=== PATIENT | female | born 1965 | race Caucasian/White ===

== ENCOUNTER 2022-03-05 01:20 | Observation (INO) | payer OTHER ==
[2022-03-05 01:40] LABS: Arterial Blood Carboxyhemoglob 2.2 % (0-1.5); Blood Gas Oxyhemoglobin 94.7 % (94-97); Blood O2 Saturation 97.8 % (92-98.5)
[2022-03-05] MEDS ORDERED: METHYLPREDNISOLONE 125 MG INJ ONE (01:41)
[2022-03-05] MEDS ORDERED: IPRATROPIUM BROM 0.5MG/2.5ML ONE (01:44)
[2022-03-05] MEDS ORDERED: ALBUTEROL 2.5 MG/3 ML NEB SOL ONE (01:44)
--- OUTSIDE RECORDS SUMMARY | 2022-03-05 01:47 | XMS REPORT | Continuity of Care Document ---
:1965 Author Organization [facility] t Address [address] [place] [address] Care Team Providers Name Role Phone THAI F [facility] Primary Care P hysician Unavailable DOLORES PATTERSON Attending Clinician Unavailable Dolores Patterson MD Attending Clinician [phone] RUSTAM LOONEY Attending Clinician Unavailable Rustam Looney MD Attending Clinician Humberto Mejia Attending Clinician Doctor Unassigned, [place] Attending Clinician Unavailable Timothy Irwin Attending Clinician SKY DAO Attending Clinician Unavailable DOLORES PATTERSON Admitting Clinician Unavailable RUSTAM LOONEY Admitting Clinician Unavailable SKY DAO Admitting Clinician Unavailable Payers Payer Name Policy Type Policy Number Effective Date Expiration Date S mellisa [employer] [id number] 2021 NON-CONTRACT 00:00:00 GENERIC Problems Condition Condition Condition Status Onset Resolution Last Treating Co mments Source Name Details Category Date Date Treatment Clinician Date Dyspnea Dyspnea Disease Active [facility] 1-03 ity of 00:00: [place] 00 [facility] Morbid Morbid Disease Active Univers obesity obesity 1-03 [place] with [place] dical of of Branch 40.0-49.9 40.0-49.9 Coronary Coronary Disease Active Unive rs artery artery 1-03 ity of disease disease 00:00: [place] involving involving 00 Medi renu wiyot wiyot 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 Atypical Atypical Disease Active Unive rs chest pain chest pain 1-03 it y of 00:00: [place] 00 [facility] Essential Essential Disease Active Uni vers hypertensi hypertensi 1-03 it y of on on 00:00: [place] 00 [facility] Dyslipidem Dyslipidem Disease Active U nivers ia ia 1-03 ity of 00:00: [place] 00 [facility] Allergies, Adverse Reactions, Alerts Allergy Allergy Status Severity Reaction(s) Onset Inactive Treating Comm ents Source Name Type Date Date Clinician n Propensi Active ty to 5-24 adverse 00:00: reaction 00 to drug oxyCODON Propensi Active E ER - ty to 2-28 Oral adverse 00:00: reaction 00 to drug Oxycodon Propensi Active e ty to 2-17 adverse 00:00: reaction 00 to drug OXYCODON DRUG Active Rash Univers E INGREDI 6-10 ity of 00:00: [place] 00 [facility] Oxycodon Propensi Active Rash Univer s e ty to 6-10 ity of adverse 00:00: [place] reaction 00 Medical s Branch oxyCODON oxyCODON Active Maria L Peñaloza Social History Social Habit Start Date Stop Date Quantity Comments Source History of Smokes tobacco University of tobacco use daily [facility] Exposure to 2022-02-14 2022-02-24 Not sure [facility] SARS-CoV-2 00:00:00 04:59:00 [place] [facility] (event) [facility] Alcohol intake 2022-01-15 2022-01-15 Current drinker Unive rsity of 00:00:00 00:00:00 of alcohol [facility] (finding) [place] Social History 2019-04-24 2019-04-24 Felix urias 17:19:51 17:19:51 Tobacco use and 2019-04-03 2019-04-03 Smokeless tobacco Un iversity of exposure 00:00:00 00:00:00 non-user [facility] Sex Assigned At [birth year] Universit y of 00:00:00 00:00:00 [facility] Smoking Status Start Date Stop Date Source Smokes tobacco daily 2019-04-03 00:00:00 Univers ity of [facility] Branch Medications Ordered Filled Start Stop Current Ordering Indication Dosage Frequency Signature Comments Components Source Medication Medication Date Date Medication? Clinician (SIG) Name Name ipratropium 2021-04 Yes 3mL 3 mL, Unive rs -albuteroL 04-26 Inhalation ity of (DUONEB) 11:45: , QID, [place] 0.5 mg-3 00 First dose Medic al mg(2.5 mg on Sat Branch base)/3 mL 02/24/22 nebulizer at 0545, solution 3 Until mL Discontinu ed, Routine methylPREDN 2021-04- No 125mg 125 mg, U nivers ISolone sod 04-26 Intravenou i ty of succ 11:30: 11:30 s, ONCE, 1 [place] (SOLU-MEDRO 00 :00 dose, On Medi renu L (PF)) Sat Branch injection 02/24/22 125 mg at 0530, [place]AS[place] furosemide 2021-04 No 40mg 40 mg, IV U nivers (LASIX) 017 17 Push, ity of injection 10:45: 10:45 ONCE, 1 [place] 40 mg 00 :00 dose, On Medical [facility] Branch 01/15/22 at 0545, [place] TAKE 2021- No TABLET BY - MOUTH EVERY 00:00: 4 HOURS 00 NEEDED FOR PAIN TAKE 0 No TABLET BY - MOUTH EVERY 00:00: 4 HOURS 00 NEEDED FOR PAIN TAKE 2021-0 No TABLET BY - MOUTH EVERY 00:00: 4 HOURS 00 NEEDED FOR PAIN TAKE 2021-0 No TABLET BY 9-26 MOUTH EVERY 00:00: 4 HOURS 00 NEEDED FOR PAIN TAKE 2021-0 No TABLET BY 9-26 MOUTH EVERY 00:00: 4 HOURS 00 NEEDED FOR PAIN TAKE 2021-0 No TABLET BY 9-26 MOUTH EVERY 00:00: 4 HOURS 00 NEEDED FOR PAIN TAKE 2021-0 No TABLET BY -26 MOUTH EVERY 00:00: 4 HOURS 00 NEEDED FOR PAIN TAKE 2021-0 No TABLET BY 9-26 MOUTH EVERY 00:00: 4 HOURS 00 NEEDED FOR PAIN TAKE 2021-0 No TABLET BY 9-26 MOUTH EVERY 00:00: 4 HOURS 00 NEEDED FOR PAIN TAKE 1 2-0 No TABLET BY 9-26 MOUTH EVERY 00:00: 4 HOURS 00 NEEDED FOR PAIN TAKE 1 2022-0 No 50 TABLET BY 8-26 MOUTH EVERY 00:00: 4 HOURS 00 NEEDED FOR PAIN TAKE 1 2022-0 No 50 TABLET BY 8-26 MOUTH EVERY 00:00: 4 HOURS 00 NEEDED FOR PAIN TAKE 1 2022-0 No 50 TABLET BY 8-26 MOUTH EVERY 00:00: 4 HOURS 00 NEEDED FOR PAIN TAKE 1 2-0 No 50 TABLET BY 8-26 MOUTH EVERY 00:00: 4 HOURS 00 NEEDED FOR PAIN TAKE 1 2-0 No 50 TABLET BY 8-26 MOUTH EVERY 00:00: 4 HOURS 00 NEEDED FOR PAIN TAKE 1 2-0 No 50 TABLET BY 8-26 MOUTH EVERY 00:00: 4 HOURS 00 NEEDED FOR PAIN TAKE 1 2-0 No 50 TABLET BY 8-26 MOUTH EVERY 00:00: 4 HOURS 00 NEEDED FOR PAIN TAKE 1 2-0 No 50 TABLET BY 8-26 MOUTH EVERY 00:00: 4 HOURS 00 NEEDED FOR PAIN TAKE 1 2-0 No 50 TABLET BY 8-26 MOUTH EVERY 00:00: 4 HOURS 00 NEEDED FOR PAIN TAKE 1 2-0 No 50 TABLET BY 8-26 MOUTH EVERY 00:00: 4 HOURS 00 NEEDED FOR PAIN promethazin 2022-0 No 1mg e 25 mg 8- tablet 00:00: 00 TAKE 1 2022-0 No 75 TABLET 10-30 DAILY. 00:00: 00 TAKE 1-2 2022-0 No 20 TABLETS A 10-30 DAY 00:00: NEEDED 00 promethazin 2022-0 No 1mg e 25 mg 8- tablet 00:00: 00 TAKE 1 2022-0 No 75 TABLET - DAILY. 00:00: 00 TAKE 1-2 2022-0 No 20 TABLETS A 10-30 DAY 00:00: NEEDED 00 promethazin 2022-0 No 1mg e 25 mg - tablet 00:00: 00 TAKE 1 2022-0 No 75 TABLET - DAILY. 00:00: 00 TAKE 1-2 2022-0 No 20 TABLETS A 10-30 DAY 00:00: NEEDED 00 promethazin 2022-0 No 1mg e 25 mg 8- tablet 00:00: 00 TAKE 1 2022-0 No 75 TABLET 8- DAILY. 00:00: 00 TAKE 1-2 2022-0 No 20 TABLETS A 10-30 DAY 00:00: NEEDED 00 promethazin 2022-0 No 1mg e 25 mg 8- tablet 00:00: 00 TAKE 1 2022-0 No 75 TABLET 8- DAILY. 00:00: 00 TAKE 1-2 2022-0 No 20 TABLETS A 10-30 DAY 00:00: NEEDED 00 promethazin 2022-0 No 1mg e 25 mg 8- tablet 00:00: 00 TAKE 1 2022-0 No 75 TABLET 8 DAILY. 00:00: 00 TAKE 1-2 2022-0 No 20 TABLETS A 10-30 DAY 00:00: NEEDED 00 promethazin 2022-0 No 1mg e 25 mg 8- tablet 00:00: 00 TAKE 1 2022-0 No 75 TABLET 10-30 DAILY. 00:00: 00 TAKE 1-2 2022-0 No 20 TABLETS A 10-30 DAY 00:00: NEEDED 00 promethazin 2022-0 No 1mg e 25 mg 8- tablet 00:00: 00 TAKE 1 2022-0 No 75 TABLET 10-30 DAILY. 00:00: 00 TAKE 1-2 2022-0 No 20 TABLETS A 10-30 DAY 00:00: NEEDED 00 promethazin 2022-0 No 1mg e 25 mg 8 tablet 00:00: 00 TAKE 1 2022-0 No 75 TABLET 10-30 DAILY. 00:00: 00 TAKE 1-2 2022-0 No 20 TABLETS A 10-30 DAY 00:00: NEEDED 00 promethazin 2022-0 No 1mg e 25 mg 8- tablet 00:00: 00 TAKE 1 2022-0 No 75 TABLET 10-30 DAILY. 00:00: 00 TAKE 1-2 2022-0 No 20 TABLETS A 10-30 DAY 00:00: NEEDED 00 citalopram 2022-0 No 1mg 10 mg 7-08 tablet 00:00: 00 Dose 2022-0 No Unknown 7-08 00:00: 00 Dose 2022-0 No Unknown 7-08 00:00: 00 Dose 2022-0 No Unknown 7-08 00:00: 00 Dose 2022-0 No Unknown 7-08 00:00: 00 Dose 2022-0 No Unknown 7-08 00:00: 00 Dose 2022-0 No Unknown 7-08 00:00: 00 Dose 2022-0 No Unknown 7-08 00:00: 00 Dose 2022-0 No Unknown 7-08 00:00: 00 Dose 2022-0 No Unknown 7- 00:00: 00 Dose 2022-0 No Unknown 7- 00:00: 00 Dose 2022-0 No Unknown 7-08 00:00: 00 Dose 2022-0 No Unknown 7-08 00:00: 00 Dose 2022-0 No Unknown 7-08 00:00: 00 citalopram 2022-0 No 1mg 10 mg 7-08 tablet 00:00: 00 Dose 2022-0 No Unknown 7-08 00:00: 00 citalopram 2022-0 No 1mg 10 mg 7-08 tablet 00:00: 00 Dose 2022-0 No Unknown 7-08 00:00: 00 citalopram 2022-0 No 1mg 10 mg 7-08 tablet 00:00: 00 Dose 2022-0 No Unknown 7-08 00:00: 00 TAKE 1-2 2022-0 No 20 TABLETS A 7- DAY 00:00: NEEDED 00 TAKE 1-2 2022-0 No 20 TABLETS A 10-03 DAY 00:00: NEEDED 00 TAKE 1-2 2022-0 No 20 TABLETS A 7 DAY 00:00: NEEDED 00 TAKE 1-2 2022-0 No 20 TABLETS A 7 DAY 00:00: NEEDED 00 TAKE 1-2 2022-0 No 20 TABLETS A 7 DAY 00:00: NEEDED 00 TAKE 1-2 2022-0 No 20 TABLETS A 7 DAY 00:00: NEEDED 00 TAKE 1-2 2022-0 No 20 TABLETS A 10-03 DAY 00:00: NEEDED 00 TAKE 1-2 2022-0 No 20 TABLETS A 7 DAY 00:00: NEEDED 00 TAKE 1-2 2022-0 No 20 TABLETS A 7 DAY 00:00: NEEDED 00 TAKE 1-2 2022-0 No 20 TABLETS A 7 DAY 00:00: NEEDED 00 TAKE 1-2 2022-0 No 20 TABLETS A 7-05 DAY 00:00: NEEDED 00 hydrochloro 2022-0 No 1mg thiazide 6-14 12.5 mg 00:00: tablet 00 atorvastati 2022-0 No 1mg n 10 mg 6-14 tablet 00:00: 00 nitroglycer 2022-0 No 1mg in 0.4 mg 6-14 sublingual 00:00: tablet 00 hydrochloro 2022-0 No 1mg thiazide 6-14 12.5 mg 00:00: tablet 00 atorvastati 2022-0 No 1mg n 10 mg 6-14 tablet 00:00: 00 nitroglycer 2022-0 No 1mg in 0.4 mg 6-14 sublingual 00:00: tablet 00 hydrochloro 2022-0 No 1mg thiazide 6-14 12.5 mg 00:00: tablet 00 atorvastati 2022-0 No 1mg n 10 mg 6-14 tablet 00:00: 00 nitroglycer 2022-0 No 1mg in 0.4 mg 6-14 sublingual 00:00: tablet 00 hydrochloro 2022-0 No 1mg thiazide 6-14 12.5 mg 00:00: tablet 00 atorvastati 2022-0 No 1mg n 10 mg 6-14 tablet 00:00: 00 nitroglycer 2022-0 No 1mg in 0.4 mg 6-14 sublingual 00:00: tablet 00 hydrochloro 2022-0 No 1mg thiazide 6-14 12.5 mg 00:00: tablet 00 atorvastati 2022-0 No 1mg n 10 mg 6-14 tablet 00:00: 00 nitroglycer 2022-0 No 1mg in 0.4 mg 6-14 sublingual 00:00: tablet 00 hydrochloro 2022-0 No 1mg thiazide 6-14 12.5 mg 00:00: tablet 00 atorvastati 2022-0 No 1mg n 10 mg 6-14 tablet 00:00: 00 nitroglycer 2022-0 No 1mg in 0.4 mg 6-14 sublingual 00:00: tablet 00 hydrochloro 2022-0 No 1mg thiazide 6-14 12.5 mg 00:00: tablet 00 atorvastati 2022-0 No 1mg n 10 mg 6-14 tablet 00:00: 00 nitroglycer 2022-0 No 1mg in 0.4 mg 6-14 sublingual 00:00: tablet 00 hydrochloro 2022-0 No 1mg thiazide 6-14 12.5 mg 00:00: tablet 00 atorvastati 2022-0 No 1mg n 10 mg 6-14 tablet 00:00: 00 nitroglycer 2022-0 No 1mg in 0.4 mg 6-14 sublingual 00:00: tablet 00 hydrochloro 2022-0 No 1mg thiazide 6-14 12.5 mg 00:00: tablet 00 atorvastati 2022-0 No 1mg n 10 mg 6-14 tablet 00:00: 00 nitroglycer 2022-0 No 1mg in 0.4 mg 6-14 sublingual 00:00: tablet 00 hydrochloro 2022-0 No 1mg thiazide 6-14 12.5 mg 00:00: tablet 00 atorvastati 2022-0 No 1mg n 10 mg 6-14 tablet 00:00: 00 nitroglycer 2022-0 No 1mg in 0.4 mg 6-14 sublingual 00:00: tablet 00 hydrochloro 2022-0 No 1mg thiazide 6-14 12.5 mg 00:00: tablet 00 atorvastati 2022-0 No 1mg n 10 mg 6-14 tablet 00:00: 00 nitroglycer 2022-0 No 1mg in 0.4 mg 6-14 sublingual 00:00: tablet 00 amoxicillin 2022-0 No 1mg 875 6-11 mg-potassiu 00:00: m 00 clavulanate 125 mg tablet amoxicillin 2022-0 No 1mg 875 6-11 mg-potassiu 00:00: m 00 clavulanate 125 mg tablet amoxicillin 2022-0 No 1mg 875 6-11 mg-potassiu 00:00: m 00 clavulanate 125 mg tablet amoxicillin 2022-0 No 1mg 875 6-11 mg-potassiu 00:00: m 00 clavulanate 125 mg tablet amoxicillin 2022-0 No 1mg 875 6-11 mg-potassiu 00:00: m 00 clavulanate 125 mg tablet amoxicillin 2022-0 No 1mg 875 6-11 mg-potassiu 00:00: m 00 clavulanate 125 mg tablet amoxicillin 2022-0 No 1mg 875 6-11 mg-potassiu 00:00: m 00 clavulanate 125 mg tablet amoxicillin 2022-0 No 1mg 875 6-11 mg-potassiu 00:00: m 00 clavulanate 125 mg tablet amoxicillin 2022-0 No 1mg 875 6-11 mg-potassiu 00:00: m 00 clavulanate 125 mg tablet amoxicillin 2022-0 No 1mg 875 6-11 mg-potassiu 00:00: m 00 clavulanate 125 mg tablet amoxicillin 2022-0 No 1mg 875 6-11 mg-potassiu 00:00: m 00 clavulanate 125 mg tablet neomycin-po 2022-0 No 4mg/mL- lymyxin-hyd 6-02 unit/mL rocort 3.5 00:00: -% mg-10,000 00 unit/mL-1 % ear drops,susp neomycin-po 2022-0 No 4mg/mL- lymyxin-hyd 6-02 unit/mL rocort 3.5 00:00: -% mg-10,000 00 unit/mL-1 % ear drops,susp neomycin-po 2022-0 No 4mg/mL- lymyxin-hyd 6-02 unit/mL rocort 3.5 00:00: -% mg-10,000 00 unit/mL-1 % ear drops,susp neomycin-po 2022-0 No 4mg/mL- lymyxin-hyd 6-02 unit/mL rocort 3.5 00:00: -% mg-10,000 00 unit/mL-1 % ear drops,susp neomycin-po 2022-0 No 4mg/mL- lymyxin-hyd 6-02 unit/mL rocort 3.5 00:00: -% mg-10,000 00 unit/mL-1 % ear drops,susp neomycin-po 2022-0 No 4mg/mL- lymyxin-hyd 6-02 unit/mL rocort 3.5 00:00: -% mg-10,000 00 unit/mL-1 % ear drops,susp neomycin-po 2022-0 No 4mg/mL- lymyxin-hyd 6-02 unit/mL rocort 3.5 00:00: -% mg-10,000 00 unit/mL-1 % ear drops,susp neomycin-po 2-0 No 4mg/mL- lymyxin-hyd 6-02 unit/mL rocort 3.5 00:00: -% mg-10,000 00 unit/mL-1 % ear drops,susp neomycin-po 2-0 No 4mg/mL- lymyxin-hyd 6-02 unit/mL rocort 3.5 00:00: -% mg-10,000 00 unit/mL-1 % ear drops,susp neomycin-po 2-0 No 4mg/mL- lymyxin-hyd 6-02 unit/mL rocort 3.5 00:00: -% mg-10,000 00 unit/mL-1 % ear drops,susp neomycin-po 2-0 No 4mg/mL- lymyxin-hyd 6-02 unit/mL rocort 3.5 00:00: -% mg-10,000 00 unit/mL-1 % ear drops,susp citalopram 2-0 No 1mg 10 mg 5-25 tablet 00:00: 00 citalopram 2022-0 No 1mg 10 mg 5-25 tablet 00:00: 00 citalopram 2022-0 No 1mg 10 mg 5-25 tablet 00:00: 00 citalopram 2022-0 No 1mg 10 mg 5-25 tablet 00:00: 00 citalopram 2022-0 No 1mg 10 mg 5-25 tablet 00:00: 00 citalopram 2022-0 No 1mg 10 mg 5-25 tablet 00:00: 00 citalopram 2022-0 No 1mg 10 mg 5-25 tablet 00:00: 00 citalopram 2022-0 No 1mg 10 mg 5-25 tablet 00:00: 00 citalopram 2022-0 No 1mg 10 mg 5-25 tablet 00:00: 00 citalopram 2022-0 No 1mg 10 mg 5-25 tablet 00:00: 00 citalopram 2022-0 No 1mg 10 mg 5-25 tablet 00:00: 00 Dose 2022-0 No Unknown 5-12 00:00: 00 Dose 2022-0 No Unknown 5-12 00:00: 00 Dose 2022-0 No Unknown 5-12 00:00: 00 Dose 2022-0 No Unknown 5-12 00:00: 00 Dose 2022-0 No Unknown 5-12 00:00: 00 Dose 2022-0 No Unknown 5-12 00:00: 00 Dose 2022-0 No Unknown 5-12 00:00: 00 Dose 2022-0 No Unknown 5-12 00:00: 00 Dose 2022-0 No Unknown 5-12 00:00: 00 Dose 2022-0 No Unknown 5-12 00:00: 00 Dose 2022-0 No Unknown 5-12 00:00: 00 Dose 2-0 No Unknown 5-12 00:00: 00 Dose 2022-0 No Unknown 5-12 00:00: 00 Dose 2-0 No Unknown 5-12 00:00: 00 Dose 2-0 No Unknown 5-12 00:00: 00 Dose 2-0 No Unknown 5-12 00:00: 00 Dose 2-0 No Unknown 5-12 00:00: 00 Dose 2-0 No Unknown 5-12 00:00: 00 Dose 2-0 No Unknown 5-12 00:00: 00 Dose 2-0 No Unknown 5-12 00:00: 00 Dose 2-0 No Unknown 5-12 00:00: 00 Dose 2-0 No Unknown 5-12 00:00: 00 prednisone 2-0 No 1mg 10 mg 5-11 tablet 00:00: 00 amoxicillin 2-0 No 1mg 875 5-11 mg-potassiu 00:00: m 00 clavulanate 125 mg tablet Dose 2-0 No Unknown 5-11 00:00: 00 Dose 2022-0 No Unknown 5-11 00:00: 00 Dose 2-0 No Unknown 5-11 00:00: 00 Dose 2022-0 No Unknown 5-11 00:00: 00 Dose 2022-0 No Unknown 5-11 00:00: 00 Dose 2-0 No Unknown 5-11 00:00: 00 Dose 2022-0 No Unknown 5-11 00:00: 00 Dose 2022-0 No Unknown 5-11 00:00: 00 Dose 2022-0 No Unknown 5-11 00:00: 00 prednisone 2022-0 No 1mg 10 mg 5-11 tablet 00:00: 00 amoxicillin 2022-0 No 1mg 875 5-11 mg-potassiu 00:00: m 00 clavulanate 125 mg tablet Dose 2022-0 No Unknown 5-11 00:00: 00 Dose 2022-0 No Unknown 5-11 00:00: 00 Dose 2022-0 No Unknown 5-11 00:00: 00 Dose 2022-0 No Unknown 5-11 00:00: 00 Dose 2022-0 No Unknown 5-11 00:00: 00 Dose 2022-0 No Unknown 5-11 00:00: 00 Dose 2022-0 No Unknown 5-11 00:00: 00 Dose 2022-0 No Unknown 5-11 00:00: 00 Dose 2022-0 No Unknown 5-11 00:00: 00 prednisone 2022-0 No 1mg 10 mg 5-11 tablet 00:00: 00 amoxicillin 2022-0 No 1mg 875 5-11 mg-potassiu 00:00: m 00 clavulanate 125 mg tablet Dose 2-0 No Unknown 5-11 00:00: 00 Dose 2022-0 No Unknown 5-11 00:00: 00 Dose 2022-0 No Unknown 5-11 00:00: 00 Dose 2022-0 No Unknown 5-11 00:00: 00 Dose 2022-0 No Unknown 5-11 00:00: 00 Dose 2022-0 No Unknown 5-11 00:00: 00 Dose 2022-0 No Unknown 5-11 00:00: 00 Dose 2022-0 No Unknown 5-11 00:00: 00 Dose 2022-0 No Unknown 5-11 00:00: 00 prednisone 2022-0 No 1mg 10 mg 5-11 tablet 00:00: 00 amoxicillin 2022-0 No 1mg 875 5-11 mg-potassiu 00:00: m 00 clavulanate 125 mg tablet Dose 2-0 No Unknown 5-11 00:00: 00 Dose 2022-0 No Unknown 5-11 00:00: 00 Dose 2022-0 No Unknown 5-11 00:00: 00 Dose 2022-0 No Unknown 5-11 00:00: 00 Dose 2022-0 No Unknown 5-11 00:00: 00 Dose 2022-0 No Unknown 5-11 00:00: 00 Dose 2022-0 No Unknown 5-11 00:00: 00 Dose 2022-0 No Unknown 5-11 00:00: 00 Dose 2022-0 No Unknown 5-11 00:00: 00 prednisone 2022-0 No 1mg 10 mg 5-11 tablet 00:00: 00 amoxicillin 2022-0 No 1mg 875 5-11 mg-potassiu 00:00: m 00 clavulanate 125 mg tablet Dose 2022-0 No Unknown 5-11 00:00: 00 Dose 2022-0 No Unknown 5-11 00:00: 00 Dose 2022-0 No Unknown 5-11 00:00: 00 Dose 2022-0 No Unknown 5-11 00:00: 00 Dose 2022-0 No Unknown 5-11 00:00: 00 Dose 2022-0 No Unknown 5-11 00:00: 00 Dose 2022-0 No Unknown 5-11 00:00: 00 Dose 2022-0 No Unknown 5-11 00:00: 00 Dose 2022-0 No Unknown 5-11 00:00: 00 prednisone 2022-0 No 1mg 10 mg 5-11 tablet 00:00: 00 amoxicillin 2022-0 No 1mg 875 5-11 mg-potassiu 00:00: m 00 clavulanate 125 mg tablet Dose 2022-0 No Unknown 5-11 00:00: 00 Dose 2022-0 No Unknown 5-11 00:00: 00 Dose 2022-0 No Unknown 5-11 00:00: 00 Dose 2022-0 No Unknown 5-11 00:00: 00 Dose 2022-0 No Unknown 5-11 00:00: 00 Dose 2022-0 No Unknown 5-11 00:00: 00 Dose 2022-0 No Unknown 5-11 00:00: 00 Dose 2022-0 No Unknown 5-11 00:00: 00 Dose 2022-0 No Unknown 5-11 00:00: 00 prednisone 2022-0 No 1mg 10 mg 5-11 tablet 00:00: 00 amoxicillin 2022-0 No 1mg 875 5-11 mg-potassiu 00:00: m 00 clavulanate 125 mg tablet Dose 2022-0 No Unknown 5-11 00:00: 00 Dose 2022-0 No Unknown 5-11 00:00: 00 Dose 2022-0 No Unknown 5-11 00:00: 00 Dose 2022-0 No Unknown 5-11 00:00: 00 Dose 2022-0 No Unknown 5-11 00:00: 00 Dose 2022-0 No Unknown 5-11 00:00: 00 Dose 2022-0 No Unknown 5-11 00:00: 00 Dose 2022-0 No Unknown 5-11 00:00: 00 Dose 2022-0 No Unknown 5-11 00:00: 00 prednisone 2022-0 No 1mg 10 mg 5-11 tablet 00:00: 00 amoxicillin 2022-0 No 1mg 875 5-11 mg-potassiu 00:00: m 00 clavulanate 125 mg tablet Dose 2-0 No Unknown 5-11 00:00: 00 Dose 2022-0 No Unknown 5-11 00:00: 00 Dose 2-0 No Unknown 5-11 00:00: 00 Dose 2-0 No Unknown 5-11 00:00: 00 Dose 2022-0 No Unknown 5-11 00:00: 00 Dose 2022-0 No Unknown 5-11 00:00: 00 Dose 2022-0 No Unknown 5-11 00:00: 00 Dose 2022-0 No Unknown 5-11 00:00: 00 Dose 2022-0 No Unknown 5-11 00:00: 00 prednisone 2022-0 No 1mg 10 mg 5-11 tablet 00:00: 00 amoxicillin 2-0 No 1mg 875 5-11 mg-potassiu 00:00: m 00 clavulanate 125 mg tablet Dose 2-0 No Unknown 5-11 00:00: 00 Dose 2022-0 No Unknown 5-11 00:00: 00 Dose 2022-0 No Unknown 5-11 00:00: 00 Dose 2022-0 No Unknown 5-11 00:00: 00 Dose 2022-0 No Unknown 5-11 00:00: 00 Dose 2022-0 No Unknown 5-11 00:00: 00 Dose 2022-0 No Unknown 5-11 00:00: 00 Dose 2022-0 No Unknown 5-11 00:00: 00 Dose 2022-0 No Unknown 5-11 00:00: 00 prednisone 2022-0 No 1mg 10 mg 5-11 tablet 00:00: 00 amoxicillin 2022-0 No 1mg 875 5-11 mg-potassiu 00:00: m 00 clavulanate 125 mg tablet Dose 2-0 No Unknown 5-11 00:00: 00 Dose 2-0 No Unknown 5-11 00:00: 00 prednisone 2-0 No 1mg 10 mg 5-11 tablet 00:00: 00 amoxicillin 2022-0 No 1mg 875 5-11 mg-potassiu 00:00: m 00 clavulanate 125 mg tablet Dose 2-0 No Unknown 5-11 00:00: 00 Dose 2022-0 No Unknown 5-11 00:00: 00 Dose 2-0 No Unknown 5-11 00:00: 00 Dose 2-0 No Unknown 5-11 00:00: 00 Dose 2-0 No Unknown 5-11 00:00: 00 Dose 2-0 No Unknown 5-11 00:00: 00 Dose 2-0 No Unknown 5-11 00:00: 00 Dose 2-0 No Unknown 5-11 00:00: 00 Dose 2-0 No Unknown 5-11 00:00: 00 Dose 2-0 No Unknown 5-11 00:00: 00 Dose 2-0 No Unknown 5-11 00:00: 00 Dose 2-0 No Unknown 5-11 00:00: 00 Dose 2-0 No Unknown 5-11 00:00: 00 Dose 2-0 No Unknown 5-11 00:00: 00 Dose 2-0 No Unknown 5-11 00:00: 00 Dose 2-0 No Unknown 5-11 00:00: 00 ProAir HFA 2-0 No 2mcg/ac 90 5-06 tuation mcg/actuati 00:00: on aerosol 00 inhaler ProAir HFA 2-0 No 2mcg/ac 90 5-06 tuation mcg/actuati 00:00: on aerosol 00 inhaler ProAir HFA 2-0 No 2mcg/ac 90 5-06 tuation mcg/actuati 00:00: on aerosol 00 inhaler ProAir HFA 2-0 No 2mcg/ac 90 5-06 tuation mcg/actuati 00:00: on aerosol 00 inhaler ProAir HFA 2-0 No 2mcg/ac 90 5-06 tuation mcg/actuati 00:00: on aerosol 00 inhaler ProAir HFA 2-0 No 2mcg/ac 90 5-06 tuation mcg/actuati 00:00: on aerosol 00 inhaler ProAir HFA 2022-0 No 2mcg/ac 90 5-06 tuation mcg/actuati 00:00: on aerosol 00 inhaler ProAir HFA 2022-0 No 2mcg/ac 90 5-06 tuation mcg/actuati 00:00: on aerosol 00 inhaler ProAir HFA 2022-0 No 2mcg/ac 90 5-06 tuation mcg/actuati 00:00: on aerosol 00 inhaler ProAir HFA 2022-0 No 2mcg/ac 90 5-06 tuation mcg/actuati 00:00: on aerosol 00 inhaler ProAir HFA 2022-0 No 2mcg/ac 90 5-06 tuation mcg/actuati 00:00: on aerosol 00 inhaler levothyroxi 2022-0 No 1mcg ne 75 mcg 4-26 tablet 00:00: 00 levothyroxi 2022-0 No 1mcg ne 75 mcg 4-26 tablet 00:00: 00 levothyroxi 2022-0 No 1mcg ne 75 mcg 4-26 tablet 00:00: 00 levothyroxi 2022-0 No 1mcg ne 75 mcg 4-26 tablet 00:00: 00 levothyroxi 2022-0 No 1mcg ne 75 mcg 4-26 tablet 00:00: 00 levothyroxi 2022-0 No 1mcg ne 75 mcg 4-26 tablet 00:00: 00 levothyroxi 2022-0 No 1mcg ne 75 mcg 4-26 tablet 00:00: 00 levothyroxi 2022-0 No 1mcg ne 75 mcg 4-26 tablet 00:00: 00 levothyroxi 2022-0 No 1mcg ne 75 mcg 4-26 tablet 00:00: 00 levothyroxi 2022-0 No 1mcg ne 75 mcg 4-26 tablet 00:00: 00 levothyroxi 2022-0 No 1mcg ne 75 mcg 4-26 tablet 00:00: 00 nitroglycer 2022-0 No 1mg in 0.4 mg 4-20 sublingual 00:00: tablet 00 levothyroxi 2022-0 No 1mcg ne 75 mcg 4-20 tablet 00:00: 00 nitroglycer 2022-0 No 1mg in 0.4 mg 4-20 sublingual 00:00: tablet 00 levothyroxi 2022-0 No 1mcg ne 75 mcg 4-20 tablet 00:00: 00 nitroglycer 2022-0 No 1mg in 0.4 mg 4-20 sublingual 00:00: tablet 00 levothyroxi 2022-0 No 1mcg ne 75 mcg 4-20 tablet 00:00: 00 nitroglycer 2022-0 No 1mg in 0.4 mg 4-20 sublingual 00:00: tablet 00 levothyroxi 2022-0 No 1mcg ne 75 mcg 4-20 tablet 00:00: 00 nitroglycer 2022-0 No 1mg in 0.4 mg 4-20 sublingual 00:00: tablet 00 levothyroxi 2022-0 No 1mcg ne 75 mcg 4-20 tablet 00:00: 00 nitroglycer 2022-0 No 1mg in 0.4 mg 4-20 sublingual 00:00: tablet 00 levothyroxi 2022-0 No 1mcg ne 75 mcg 4-20 tablet 00:00: 00 nitroglycer 2022-0 No 1mg in 0.4 mg 4-20 sublingual 00:00: tablet 00 levothyroxi 2022-0 No 1mcg ne 75 mcg 4-20 tablet 00:00: 00 nitroglycer 2022-0 No 1mg in 0.4 mg 4-20 sublingual 00:00: tablet 00 levothyroxi 2022-0 No 1mcg ne 75 mcg 4-20 tablet 00:00: 00 nitroglycer 2022-0 No 1mg in 0.4 mg 4-20 sublingual 00:00: tablet 00 levothyroxi 2022-0 No 1mcg ne 75 mcg 4-20 tablet 00:00: 00 nitroglycer 2022-0 No 1mg in 0.4 mg 4-20 sublingual 00:00: tablet 00 levothyroxi 2022-0 No 1mcg ne 75 mcg 4-20 tablet 00:00: 00 nitroglycer 2022-0 No 1mg in 0.4 mg 4-20 sublingual 00:00: tablet 00 levothyroxi 2022-0 No 1mcg ne 75 mcg 4-20 tablet 00:00: 00 Dose 2022-0 No Unknown 4-13 00:00: 00 Dose 2022-0 No Unknown 4-13 00:00: 00 Dose 2022-0 No Unknown 4-13 00:00: 00 Dose 2022-0 No Unknown 4-13 00:00: 00 Dose 2022-0 No Unknown 4-13 00:00: 00 Dose 2022-0 No Unknown 4-13 00:00: 00 Dose 2022-0 No Unknown 4-13 00:00: 00 Dose 2022-0 No Unknown 4-13 00:00: 00 Dose 2022-0 No Unknown 4-13 00:00: 00 Dose 2022-0 No Unknown 4-13 00:00: 00 Dose 2022-0 No Unknown 4-13 00:00: 00 Dose 2022-0 No Unknown 4-13 00:00: 00 Dose 2022-0 No Unknown 4-13 00:00: 00 Dose 2022-0 No Unknown 4-13 00:00: 00 Dose 2022-0 No Unknown 4-13 00:00: 00 Dose 2022-0 No Unknown 4-13 00:00: 00 Dose 2022-0 No Unknown 4-13 00:00: 00 Dose 2022-0 No Unknown 4-13 00:00: 00 Dose 2022-0 No Unknown 4-13 00:00: 00 Dose 2022-0 No Unknown 4-13 00:00: 00 Dose 2022-0 No Unknown 4-13 00:00: 00 Dose 2022-0 No Unknown 4-13 00:00: 00 Dose 2022-0 No Unknown 4-13 00:00: 00 Dose 2022-0 No Unknown 4-13 00:00: 00 Dose 2022-0 No Unknown 4-13 00:00: 00 Dose 2022-0 No Unknown 4-13 00:00: 00 Dose 2022-0 No Unknown 4-13 00:00: 00 Dose 2022-0 No Unknown 4-13 00:00: 00 Dose 2022-0 No Unknown 4-13 00:00: 00 Dose 2022-0 No Unknown 4-13 00:00: 00 Dose 2022-0 No Unknown 4-13 00:00: 00 Dose 2022-0 No Unknown 4-13 00:00: 00 Dose 2022-0 No Unknown 4-13 00:00: 00 Dose 2022-0 No Unknown 4-13 00:00: 00 Dose 2022-0 No Unknown 4-13 00:00: 00 Dose 2022-0 No Unknown 4-13 00:00: 00 Dose 2022-0 No Unknown 4-13 00:00: 00 Dose 2022-0 No Unknown 4-13 00:00: 00 Dose 2022-0 No Unknown 4-13 00:00: 00 Dose 2022-0 No Unknown 4-13 00:00: 00 Dose 2022-0 No Unknown 4-13 00:00: 00 Dose 2022-0 No Unknown 4-13 00:00: 00 Dose 2022-0 No Unknown 4-13 00:00: 00 Dose 2022-0 No Unknown 4-13 00:00: 00 Dose 2022-0 No Unknown 4-13 00:00: 00 Dose 2022-0 No Unknown 4-13 00:00: 00 Dose 2022-0 No Unknown 4-13 00:00: 00 Dose 2022-0 No Unknown 4-13 00:00: 00 Dose 2022-0 No Unknown 4-13 00:00: 00 Dose 2022-0 No Unknown 4-13 00:00: 00 Dose 2022-0 No Unknown 4-13 00:00: 00 Dose 2022-0 No Unknown 4-13 00:00: 00 Dose 2022-0 No Unknown 4-13 00:00: 00 Dose 2022-0 No Unknown 4-13 00:00: 00 Dose 2022-0 No Unknown 4-13 00:00: 00 Dose 2022-0 No Unknown 4-13 00:00: 00 Dose 2022-0 No Unknown 4-13 00:00: 00 Dose 2022-0 No Unknown 4-13 00:00: 00 Dose 2022-0 No Unknown 4-13 00:00: 00 Dose 2022-0 No Unknown 4-13 00:00: 00 Dose 2022-0 No Unknown 4-13 00:00: 00 Dose 2022-0 No Unknown 4-13 00:00: 00 Dose 2022-0 No Unknown 4-13 00:00: 00 Dose 2022-0 No Unknown 4-13 00:00: 00 Dose 2022-0 No Unknown 4-13 00:00: 00 Dose 2022-0 No Unknown 4-13 00:00: 00 Dose 2022-0 No Unknown 4-13 00:00: 00 Dose 2022-0 No Unknown 4-13 00:00: 00 Dose 2022-0 No Unknown 4-13 00:00: 00 Dose 2022-0 No Unknown 4-13 00:00: 00 Dose 2022-0 No Unknown 4-13 00:00: 00 Dose 2022-0 No Unknown 4-13 00:00: 00 Dose 2022-0 No Unknown 4-13 00:00: 00 Dose 2022-0 No Unknown 4-13 00:00: 00 Dose 2022-0 No Unknown 4-13 00:00: 00 Dose 2022-0 No Unknown 4-13 00:00: 00 Dose 2022-0 No Unknown 4-13 00:00: 00 Dose 2022-0 No Unknown 4-13 00:00: 00 Dose 2022-0 No Unknown 4-13 00:00: 00 Dose 2022-0 No Unknown 4-13 00:00: 00 Dose 2022-0 No Unknown 4-13 00:00: 00 Dose 2022-0 No Unknown 4-13 00:00: 00 Dose 2022-0 No Unknown 4-13 00:00: 00 Dose 2022-0 No Unknown 4-13 00:00: 00 Dose 2022-0 No Unknown 4-13 00:00: 00 Dose 2022-0 No Unknown 4-13 00:00: 00 Dose 2022-0 No Unknown 4-13 00:00: 00 Dose 2022-0 No Unknown 4-13 00:00: 00 Dose 2022-0 No Unknown 4-13 00:00: 00 Dose 2022-0 No Unknown 4-13 00:00: 00 Dose 2022-0 No Unknown 4-13 00:00: 00 Dose 2022-0 No Unknown 4-13 00:00: 00 Dose 2022-0 No Unknown 4-13 00:00: 00 Dose 2022-0 No Unknown 4-13 00:00: 00 Dose 2022-0 No Unknown 4-13 00:00: 00 Dose 2022-0 No Unknown 4-13 00:00: 00 Dose 2022-0 No Unknown 4-13 00:00: 00 Dose 2022-0 No Unknown 4-13 00:00: 00 Dose 2022-0 No Unknown 4-13 00:00: 00 Dose 2022-0 No Unknown 4-13 00:00: 00 Dose 2022-0 No Unknown 4-13 00:00: 00 Dose 2022-0 No Unknown 4-13 00:00: 00 Dose 2022-0 No Unknown 4-13 00:00: 00 Dose 2022-0 No Unknown 4-13 00:00: 00 Dose 2022-0 No Unknown 4-13 00:00: 00 Dose 2022-0 No Unknown 4-13 00:00: 00 Dose 2022-0 No Unknown 4-13 00:00: 00 Dose 2022-0 No Unknown 4-13 00:00: 00 Dose 2022-0 No Unknown 4-13 00:00: 00 Dose 2022-0 No Unknown 4-13 00:00: 00 lithium 2022-0 No 1mg carbonate 3-02 ER 450 mg 00:00: tablet,exte 00 nded release lithium 2022-0 No 1mg carbonate 3-02 ER 450 mg 00:00: tablet,exte 00 nded release lithium 2022-0 No 1mg carbonate 3-02 ER 450 mg 00:00: tablet,exte 00 nded release lithium 2022-0 No 1mg carbonate 3-02 ER 450 mg 00:00: tablet,exte 00 nded release lithium 2022-0 No 1mg carbonate 3-02 ER 450 mg 00:00: tablet,exte 00 nded release lithium 2022-0 No 1mg carbonate 3-02 ER 450 mg 00:00: tablet,exte 00 nded release lithium 2022-0 No 1mg carbonate 3-02 ER 450 mg 00:00: tablet,exte 00 nded release lithium 2022-0 No 1mg carbonate 3-02 ER 450 mg 00:00: tablet,exte 00 nded release lithium 2022-0 No 1mg carbonate 3-02 ER 450 mg 00:00: tablet,exte 00 nded release lithium 2022-0 No 1mg carbonate 3-02 ER 450 mg 00:00: tablet,exte 00 nded release lithium 2022-0 No 1mg carbonate 3-02 ER 450 mg 00:00: tablet,exte 00 nded release atorvastati 2022-0 No 1mg n 10 mg 2-28 tablet 00:00: 00 atorvastati 2022-0 No 1mg n 10 mg 2-28 tablet 00:00: 00 atorvastati 2022-0 No 1mg n 10 mg 2-28 tablet 00:00: 00 atorvastati 2022-0 No 1mg n 10 mg 2-28 tablet 00:00: 00 atorvastati 2022-0 No 1mg n 10 mg 2-28 tablet 00:00: 00 atorvastati 2022-0 No 1mg n 10 mg 2-28 tablet 00:00: 00 atorvastati 2022-0 No 1mg n 10 mg 2-28 tablet 00:00: 00 atorvastati 2022-0 No 1mg n 10 mg 2-28 tablet 00:00: 00 atorvastati 2022-0 No 1mg n 10 mg 2-28 tablet 00:00: 00 atorvastati 2022-0 No 1mg n 10 mg 2-28 tablet 00:00: 00 atorvastati 2022-0 No 1mg n 10 mg 2-28 tablet 00:00: 00 Dose 2022-0 No Unknown 2-17 00:00: 00 Dose 2022-0 No Unknown 2-17 00:00: 00 Dose 2022-0 No Unknown 2-17 00:00: 00 Dose 2022-0 No Unknown 2-17 00:00: 00 Dose 2022-0 No Unknown 2-17 00:00: 00 Dose 2022-0 No Unknown 2-17 00:00: 00 Dose 2022-0 No Unknown 2-17 00:00: 00 Dose 2022-0 No Unknown 2-17 00:00: 00 Dose 2022-0 No Unknown 2-17 00:00: 00 Dose 2022-0 No Unknown 2-17 00:00: 00 Dose 2022-0 No Unknown 2-17 00:00: 00 clopidogrel 2022-0 No 1mg 75 mg 1-18 tablet 00:00: 00 metoprolol 2022-0 No 1mg succinate 1-18 ER 100 mg 00:00: tablet,exte 00 nded release 24 hr Dose 2022-0 No Unknown 1-18 00:00: 00 clopidogrel 2022-0 No 1mg 75 mg 1-18 tablet 00:00: 00 metoprolol 2022-0 No 1mg succinate 1-18 ER 100 mg 00:00: tablet,exte 00 nded release 24 hr Dose 2022-0 No Unknown 1-18 00:00: 00 clopidogrel 2022-0 No 1mg 75 mg 1-18 tablet 00:00: 00 metoprolol 2022-0 No 1mg succinate 1-18 ER 100 mg 00:00: tablet,exte 00 nded release 24 hr Dose 2022-0 No Unknown 1-18 00:00: 00 clopidogrel 2022-0 No 1mg 75 mg 1-18 tablet 00:00: 00 metoprolol 2022-0 No 1mg succinate 1-18 ER 100 mg 00:00: tablet,exte 00 nded release 24 hr Dose 2022-0 No Unknown 1-18 00:00: 00 clopidogrel 2022-0 No 1mg 75 mg 1-18 tablet 00:00: 00 metoprolol 2022-0 No 1mg succinate 1-18 ER 100 mg 00:00: tablet,exte 00 nded release 24 hr Dose 2022-0 No Unknown 1-18 00:00: 00 clopidogrel 2022-0 No 1mg 75 mg 1-18 tablet 00:00: 00 metoprolol 2022-0 No 1mg succinate 1-18 ER 100 mg 00:00: tablet,exte 00 nded release 24 hr Dose 2022-0 No Unknown 1-18 00:00: 00 clopidogrel 2022-0 No 1mg 75 mg 1-18 tablet 00:00: 00 metoprolol 2022-0 No 1mg succinate 1-18 ER 100 mg 00:00: tablet,exte 00 nded release 24 hr Dose 2022-0 No Unknown 1-18 00:00: 00 clopidogrel 2022-0 No 1mg 75 mg 1-18 tablet 00:00: 00 metoprolol 2022-0 No 1mg succinate 1-18 ER 100 mg 00:00: tablet,exte 00 nded release 24 hr Dose 2022-0 No Unknown 1-18 00:00: 00 clopidogrel 2022-0 No 1mg 75 mg 1-18 tablet 00:00: 00 metoprolol 2022-0 No 1mg succinate 1-18 ER 100 mg 00:00: tablet,exte 00 nded release 24 hr Dose 2022-0 No Unknown 1-18 00:00: 00 clopidogrel 2022-0 No 1mg 75 mg 1-18 tablet 00:00: 00 metoprolol 2022-0 No 1mg succinate 1-18 ER 100 mg 00:00: tablet,exte 00 nded release 24 hr Dose 2022-0 No Unknown 1-18 00:00: 00 clopidogrel 2022-0 No 1mg 75 mg 1-18 tablet 00:00: 00 metoprolol 2022-0 No 1mg succinate 1-18 ER 100 mg 00:00: tablet,exte 00 nded release 24 hr Dose 2022-0 No Unknown 1-18 00:00: 00 citalopram 2022-0 No 1mg 10 mg 1-11 tablet 00:00: 00 benzonatate 2022-0 No 1mg 200 mg 1-11 capsule 00:00: 00 Dose 2022-0 No Unknown 1-11 00:00: 00 benzonatate 2022-0 No 1mg 200 mg 1-11 capsule 00:00: 00 Dose 2022-0 No Unknown 1-11 00:00: 00 benzonatate 2022-0 No 1mg 200 mg 1-11 capsule 00:00: 00 Dose 2022-0 No Unknown 1-11 00:00: 00 benzonatate 2022-0 No 1mg 200 mg 1-11 capsule 00:00: 00 Dose 2022-0 No Unknown 1-11 00:00: 00 benzonatate 2022-0 No 1mg 200 mg 1-11 capsule 00:00: 00 Dose 2022-0 No Unknown 1-11 00:00: 00 benzonatate 2022-0 No 1mg 200 mg 1-11 capsule 00:00: 00 Dose 2022-0 No Unknown 1-11 00:00: 00 benzonatate 2022-0 No 1mg 200 mg 1-11 capsule 00:00: 00 citalopram 2022-0 No 1mg 10 mg 1-11 tablet 00:00: 00 benzonatate 2022-0 No 1mg 200 mg 1-11 capsule 00:00: 00 citalopram 2022-0 No 1mg 10 mg 1-11 tablet 00:00: 00 benzonatate 2022-0 No 1mg 200 mg 1-11 capsule 00:00: 00 citalopram 2022-0 No 1mg 10 mg 1-11 tablet 00:00: 00 benzonatate 2022-0 No 1mg 200 mg 1-11 capsule 00:00: 00 citalopram 2022-0 No 1mg 10 mg 1-11 tablet 00:00: 00 benzonatate 2022-0 No 1mg 200 mg 1-11 capsule 00:00: 00 clopidogrel 2022-0 No 1mg 75 mg 1-10 tablet 00:00: 00 clopidogrel 2022-0 No 1mg 75 mg 1-10 tablet 00:00: 00 clopidogrel 2022-0 No 1mg 75 mg 1-10 tablet 00:00: 00 clopidogrel 2022-0 No 1mg 75 mg 1-10 tablet 00:00: 00 clopidogrel 2022-0 No 1mg 75 mg 1-10 tablet 00:00: 00 clopidogrel 2022-0 No 1mg 75 mg 1-10 tablet 00:00: 00 clopidogrel 2022-0 No 1mg 75 mg 1-10 tablet 00:00: 00 clopidogrel 2022-0 No 1mg 75 mg 1-10 tablet 00:00: 00 clopidogrel 2022-0 No 1mg 75 mg 1-10 tablet 00:00: 00 clopidogrel 2022-0 No 1mg 75 mg 1-10 tablet 00:00: 00 clopidogrel 2022-0 No 1mg 75 mg 1-10 tablet 00:00: 00 albuterol 2-0 No 1mg/3 sulfate 1-03 mL 1.25 mg/3 00:00: mL solution 00 for nebulizatio n ipratropium 2-0 No 1mg 0.5 1-03 base)/3 mg-albutero 00:00: mL l 3 mg (2.5 00 mg base)/3 mL nebulizatio n soln doxycycline 2-0 No 1mg hyclate 100 1-03 mg tablet 00:00: 00 fluconazole 2022-0 No 1mg 150 mg 1-03 tablet 00:00: 00 albuterol 2-0 No 1mg/3 sulfate 1-03 mL 1.25 mg/3 00:00: mL solution 00 for nebulizatio n ipratropium 2-0 No 1mg 0.5 1-03 base)/3 mg-albutero 00:00: mL l 3 mg (2.5 00 mg base)/3 mL nebulizatio n soln doxycycline 2-0 No 1mg hyclate 100 1-03 mg tablet 00:00: 00 fluconazole 2022-0 No 1mg 150 mg 1-03 tablet 00:00: 00 albuterol 2022-0 No 1mg/3 sulfate 1-03 mL 1.25 mg/3 00:00: mL solution 00 for nebulizatio n ipratropium 2022-0 No 1mg 0.5 1-03 base)/3 mg-albutero 00:00: mL l 3 mg (2.5 00 mg base)/3 mL nebulizatio n soln doxycycline 2-0 No 1mg hyclate 100 1-03 mg tablet 00:00: 00 fluconazole 2022-0 No 1mg 150 mg 1-03 tablet 00:00: 00 albuterol 2022-0 No 1mg/3 sulfate 1-03 mL 1.25 mg/3 00:00: mL solution 00 for nebulizatio n ipratropium 2022-0 No 1mg 0.5 1-03 base)/3 mg-albutero 00:00: mL l 3 mg (2.5 00 mg base)/3 mL nebulizatio n soln doxycycline 2-0 No 1mg hyclate 100 1-03 mg tablet 00:00: 00 fluconazole 2022-0 No 1mg 150 mg 1-03 tablet 00:00: 00 albuterol 2022-0 No 1mg/3 sulfate 1-03 mL 1.25 mg/3 00:00: mL solution 00 for nebulizatio n ipratropium 2-0 No 1mg 0.5 1-03 base)/3 mg-albutero 00:00: mL l 3 mg (2.5 00 mg base)/3 mL nebulizatio n soln doxycycline 2-0 No 1mg hyclate 100 1-03 mg tablet 00:00: 00 fluconazole 2022-0 No 1mg 150 mg 1-03 tablet 00:00: 00 albuterol 2022-0 No 1mg/3 sulfate 1-03 mL 1.25 mg/3 00:00: mL solution 00 for nebulizatio n ipratropium 2022-0 No 1mg 0.5 1-03 base)/3 mg-albutero 00:00: mL l 3 mg (2.5 00 mg base)/3 mL nebulizatio n soln doxycycline 2-0 No 1mg hyclate 100 1-03 mg tablet 00:00: 00 fluconazole 2022-0 No 1mg 150 mg 1-03 tablet 00:00: 00 albuterol 2022-0 No 1mg/3 sulfate 1-03 mL 1.25 mg/3 00:00: mL solution 00 for nebulizatio n ipratropium 2-0 No 1mg 0.5 1-03 base)/3 mg-albutero 00:00: mL l 3 mg (2.5 00 mg base)/3 mL nebulizatio n soln doxycycline 2-0 No 1mg hyclate 100 1-03 mg tablet 00:00: 00 fluconazole 2022-0 No 1mg 150 mg 1-03 tablet 00:00: 00 albuterol 2022-0 No 1mg/3 sulfate 1-03 mL 1.25 mg/3 00:00: mL solution 00 for nebulizatio n ipratropium 2022-0 No 1mg 0.5 1-03 base)/3 mg-albutero 00:00: mL l 3 mg (2.5 00 mg base)/3 mL nebulizatio n soln doxycycline 2-0 No 1mg hyclate 100 1-03 mg tablet 00:00: 00 fluconazole 2-0 No 1mg 150 mg 1-03 tablet 00:00: 00 albuterol 2-0 No 1mg/3 sulfate 1-03 mL 1.25 mg/3 00:00: mL solution 00 for nebulizatio n ipratropium 2-0 No 1mg 0.5 1-03 base)/3 mg-albutero 00:00: mL l 3 mg (2.5 00 mg base)/3 mL nebulizatio n soln doxycycline 2-0 No 1mg hyclate 100 1-03 mg tablet 00:00: 00 fluconazole 2-0 No 1mg 150 mg 1-03 tablet 00:00: 00 albuterol 2022-0 No 1mg/3 sulfate 1-03 mL 1.25 mg/3 00:00: mL solution 00 for nebulizatio n ipratropium 2022-0 No 1mg 0.5 1-03 base)/3 mg-albutero 00:00: mL l 3 mg (2.5 00 mg base)/3 mL nebulizatio n soln doxycycline 2-0 No 1mg hyclate 100 1-03 mg tablet 00:00: 00 fluconazole 2022-0 No 1mg 150 mg 1-03 tablet 00:00: 00 albuterol 2022-0 No 1mg/3 sulfate 1-03 mL 1.25 mg/3 00:00: mL solution 00 for nebulizatio n ipratropium 0 No 1mg 0.5 1-03 base)/3 mg-albutero 00:00: mL l 3 mg (2.5 00 mg base)/3 mL nebulizatio n soln doxycycline 0 No 1mg hyclate 100 1-03 mg tablet 00:00: 00 fluconazole 0 No 1mg 150 mg 1-03 tablet 00:00: 00 levothyroxi 2020-04 No 1mcg ne 75 mcg 2-14 tablet 00:00: 00 Vitamin D3 2020-04 No 1(1,000 25 mcg 2-14 unit) (1,000 00:00: unit) 00 tablet levothyroxi 2020-04 No 1mcg ne 75 mcg 2-14 tablet 00:00: 00 Vitamin D3 2020-04 No 1(1,000 25 mcg 2-14 unit) (1,000 00:00: unit) 00 tablet levothyroxi 2020-04 No 1mcg ne 75 mcg 2-14 tablet 00:00: 00 Vitamin D3 2020-04 No 1(1,000 25 mcg 2-14 unit) (1,000 00:00: unit) 00 tablet levothyroxi 2020-04 No 1mcg ne 75 mcg 2-14 tablet 00:00: 00 Vitamin D3 2020-04 No 1(1,000 25 mcg 2-14 unit) (1,000 00:00: unit) 00 tablet levothyroxi 2020-04 No 1mcg ne 75 mcg 2-14 tablet 00:00: 00 Vitamin D3 2020-04 No 1(1,000 25 mcg 2-14 unit) (1,000 00:00: unit) 00 tablet levothyroxi 2020-04 No 1mcg ne 75 mcg 2-14 tablet 00:00: 00 Vitamin D3 2020-04 No 1(1,000 25 mcg 2-14 unit) (1,000 00:00: unit) 00 tablet levothyroxi 2020-04 No 1mcg ne 75 mcg 2-14 tablet 00:00: 00 Vitamin D3 2020-04 No 1(1,000 25 mcg 2-14 unit) (1,000 00:00: unit) 00 tablet levothyroxi 2020-04 No 1mcg ne 75 mcg 2-14 tablet 00:00: 00 Vitamin D3 2020-04 No 1(1,000 25 mcg 2-14 unit) (1,000 00:00: unit) 00 tablet levothyroxi 2020-04 No 1mcg ne 75 mcg 2-14 tablet 00:00: 00 levothyroxi 2020-04 No 1mcg ne 75 mcg 2-14 tablet 00:00: 00 Vitamin D3 2020-04 No 1(1,000 25 mcg 2-14 unit) (1,000 00:00: unit) 00 tablet Vitamin D3 2020-04 No 1(1,000 25 mcg 2-14 unit) (1,000 00:00: unit) 00 tablet levothyroxi 2020-04 No 1mcg ne 75 mcg 2-14 tablet 00:00: 00 Vitamin D3 2020-04 No 1(1,000 25 mcg 2-14 unit) (1,000 00:00: unit) 00 tablet atorvastati 2020-04 No 1mg n 10 mg 2-13 tablet 00:00: 00 atorvastati 2020-04 No 1mg n 10 mg 2-13 tablet 00:00: 00 atorvastati 2020-04 No 1mg n 10 mg 2-13 tablet 00:00: 00 atorvastati 2020-04 No 1mg n 10 mg 2-13 tablet 00:00: 00 atorvastati 2020-04 No 1mg n 10 mg 2-13 tablet 00:00: 00 atorvastati 2020-04 No 1mg n 10 mg 2-13 tablet 00:00: 00 atorvastati 2020-04 No 1mg n 10 mg 2-13 tablet 00:00: 00 atorvastati 2020-04 No 1mg n 10 mg 2-13 tablet 00:00: 00 atorvastati 2020-04 No 1mg n 10 mg 2-13 tablet 00:00: 00 atorvastati 2020-04 No 1mg n 10 mg 2-13 tablet 00:00: 00 atorvastati 2020-04 No 1mg n 10 mg 2-13 tablet 00:00: 00 atorvastati 2021-1 No 1mg n 10 mg 2-09 tablet 00:00: 00 atorvastati 2020-1 No 1mg n 10 mg 2-09 tablet 00:00: 00 atorvastati 2020-1 No 1mg n 10 mg 2-09 tablet 00:00: 00 atorvastati 2020-1 No 1mg n 10 mg 2-09 tablet 00:00: 00 atorvastati 2020-1 No 1mg n 10 mg 2-09 tablet 00:00: 00 atorvastati 2020-1 No 1mg n 10 mg 2-09 tablet 00:00: 00 atorvastati 2020-1 No 1mg n 10 mg 2-09 tablet 00:00: 00 atorvastati 2020-1 No 1mg n 10 mg 2-09 tablet 00:00: 00 atorvastati 2020-1 No 1mg n 10 mg 2-09 tablet 00:00: 00 atorvastati 2020-1 No 1mg n 10 mg 2-09 tablet 00:00: 00 atorvastati 2020-1 No 1mg n 10 mg 2-09 tablet 00:00: 00 Dose 2021-1 No Unknown 1-30 00:00: 00 Dose 1-1 No Unknown 1-30 00:00: 00 Dose 1-1 No Unknown 1-30 00:00: 00 Dose 1-1 No Unknown 1-30 00:00: 00 Dose 1-1 No Unknown 1-30 00:00: 00 Dose 1-1 No Unknown 1-30 00:00: 00 Dose 1-1 No Unknown 1-30 00:00: 00 Dose 1-1 No Unknown 1-30 00:00: 00 Dose 1-1 No Unknown 1-30 00:00: 00 Dose 1-1 No Unknown 1-30 00:00: 00 Dose 2021-1 No Unknown 1-30 00:00: 00 clopidogrel 1-1 No 1mg 75 mg 1-29 tablet 00:00: 00 clopidogrel 1-1 No 1mg 75 mg 1-29 tablet 00:00: 00 clopidogrel 1-1 No 1mg 75 mg 1-29 tablet 00:00: 00 clopidogrel 1-1 No 1mg 75 mg 1-29 tablet 00:00: 00 clopidogrel 1-1 No 1mg 75 mg 1-29 tablet 00:00: 00 clopidogrel 2021-1 No 1mg 75 mg 1-29 tablet 00:00: 00 clopidogrel 2021-1 No 1mg 75 mg 1-29 tablet 00:00: 00 clopidogrel 2021-1 No 1mg 75 mg 1-29 tablet 00:00: 00 clopidogrel 2021-1 No 1mg 75 mg 1-29 tablet 00:00: 00 clopidogrel 2021-1 No 1mg 75 mg 1-29 tablet 00:00: 00 clopidogrel 1-1 No 1mg 75 mg 1-29 tablet 00:00: 00 Dose 2021-1 No Unknown 1-23 00:00: 00 gabapentin 1-1 No 12mg 100 mg 1-23 capsule 00:00: 00 Dose 1-1 No Unknown 1 00:00: 00 gabapentin 1-1 No 12mg 100 mg 1-23 capsule 00:00: 00 Dose 2021-1 No Unknown 1- 00:00: 00 gabapentin 1-1 No 12mg 100 mg 1-23 capsule 00:00: 00 Dose 1-1 No Unknown 1- 00:00: 00 gabapentin 1-1 No 12mg 100 mg 1-23 capsule 00:00: 00 Dose 2021-1 No Unknown 1- 00:00: 00 gabapentin 1-1 No 12mg 100 mg 1-23 capsule 00:00: 00 Dose 2021-1 No Unknown 1- 00:00: 00 gabapentin 1-1 No 12mg 100 mg 1-23 capsule 00:00: 00 Dose 2021-1 No Unknown 1- 00:00: 00 gabapentin 1-1 No 12mg 100 mg 1-23 capsule 00:00: 00 Dose 2021-1 No Unknown 1- 00:00: 00 gabapentin 2021-1 No 12mg 100 mg 1-23 capsule 00:00: 00 lithium 2021-1 No 1mg carbonate 1-23 ER 450 mg 00:00: tablet,exte 00 nded release gabapentin 1-1 No 12mg 100 mg 1-23 capsule 00:00: 00 Dose 1-1 No Unknown 1-23 00:00: 00 gabapentin 2021-1 No 12mg 100 mg 1-23 capsule 00:00: 00 Dose 1-1 No Unknown 1- 00:00: 00 gabapentin 1-1 No 12mg 100 mg 1-23 capsule 00:00: 00 gabapentin 2021-1 No 12mg 100 mg 0-26 capsule 00:00: 00 gabapentin 2021-1 No 12mg 100 mg 0-26 capsule 00:00: 00 gabapentin 2021-1 No 12mg 100 mg 0-26 capsule 00:00: 00 gabapentin 2021-1 No 12mg 100 mg 0-26 capsule 00:00: 00 gabapentin 2021-1 No 12mg 100 mg 0-26 capsule 00:00: 00 gabapentin 2021-1 No 12mg 100 mg 0-26 capsule 00:00: 00 gabapentin 2021-1 No 12mg 100 mg 0-26 capsule 00:00: 00 gabapentin 2021-1 No 12mg 100 mg 0-26 capsule 00:00: 00 gabapentin 2021-1 No 12mg 100 mg 0-26 capsule 00:00: 00 gabapentin 2021-1 No 12mg 100 mg 0-26 capsule 00:00: 00 gabapentin 2021-1 No 12mg 100 mg 0-26 capsule 00:00: 00 clopidogrel 2021-1 No 1mg 75 mg 0-20 tablet 00:00: 00 atorvastati 2021-1 No 1mg n 10 mg 0-20 tablet 00:00: 00 clopidogrel 2021-1 No 1mg 75 mg 0-20 tablet 00:00: 00 atorvastati 2021-1 No 1mg n 10 mg 0-20 tablet 00:00: 00 clopidogrel 2021-1 No 1mg 75 mg 0-20 tablet 00:00: 00 atorvastati 2021-1 No 1mg n 10 mg 0-20 tablet 00:00: 00 clopidogrel 2021-1 No 1mg 75 mg 0-20 tablet 00:00: 00 atorvastati 2021-1 No 1mg n 10 mg 0-20 tablet 00:00: 00 clopidogrel 2021-1 No 1mg 75 mg 0-20 tablet 00:00: 00 atorvastati 2021-1 No 1mg n 10 mg 0-20 tablet 00:00: 00 clopidogrel 2021-1 No 1mg 75 mg 0-20 tablet 00:00: 00 atorvastati 2021-1 No 1mg n 10 mg 0-20 tablet 00:00: 00 clopidogrel 2021-1 No 1mg 75 mg 0-20 tablet 00:00: 00 atorvastati 2021-1 No 1mg n 10 mg 0-20 tablet 00:00: 00 clopidogrel 1-1 No 1mg 75 mg 0-20 tablet 00:00: 00 atorvastati 1-1 No 1mg n 10 mg 0-20 tablet 00:00: 00 clopidogrel 2021-1 No 1mg 75 mg 0-20 tablet 00:00: 00 atorvastati 1-1 No 1mg n 10 mg 0-20 tablet 00:00: 00 clopidogrel 2021-1 No 1mg 75 mg 0-20 tablet 00:00: 00 atorvastati 1-1 No 1mg n 10 mg 0-20 tablet 00:00: 00 clopidogrel 1-1 No 1mg 75 mg 0-20 tablet 00:00: 00 atorvastati 1-1 No 1mg n 10 mg 0-20 tablet 00:00: 00 diclofenac 1-1 No % 1 % topical 0-15 gel 00:00: 00 hydroxyzine 1-1 No 12mg HCl 10 mg 0-15 tablet 00:00: 00 diclofenac 1-1 No % 1 % topical 0-15 gel 00:00: 00 hydroxyzine 1-1 No 12mg HCl 10 mg 0-15 tablet 00:00: 00 diclofenac 1-1 No % 1 % topical 0-15 gel 00:00: 00 hydroxyzine 1-1 No 12mg HCl 10 mg 0-15 tablet 00:00: 00 diclofenac 1-1 No % 1 % topical 0-15 gel 00:00: 00 hydroxyzine 1-1 No 12mg HCl 10 mg 0-15 tablet 00:00: 00 diclofenac 1-1 No % 1 % topical 0-15 gel 00:00: 00 hydroxyzine 1-1 No 12mg HCl 10 mg 0-15 tablet 00:00: 00 diclofenac 2021-1 No % 1 % topical 0-15 gel 00:00: 00 hydroxyzine 1-1 No 12mg HCl 10 mg 0-15 tablet 00:00: 00 diclofenac 2021-1 No % 1 % topical 0-15 gel 00:00: 00 hydroxyzine 1-1 No 12mg HCl 10 mg 0-15 tablet 00:00: 00 diclofenac 2021-1 No % 1 % topical 0-15 gel 00:00: 00 hydroxyzine 1-1 No 12mg HCl 10 mg 0-15 tablet 00:00: 00 diclofenac 2021-1 No % 1 % topical 0-15 gel 00:00: 00 hydroxyzine 2021-1 No 12mg HCl 10 mg 0-15 tablet 00:00: 00 diclofenac 2021-1 No % 1 % topical 0-15 gel 00:00: 00 hydroxyzine 2021-1 No 12mg HCl 10 mg 0-15 tablet 00:00: 00 diclofenac 2021-1 No % 1 % topical 0-15 gel 00:00: 00 hydroxyzine 2021-1 No 12mg HCl 10 mg 0-15 tablet 00:00: 00 lithium 2021-0 No 1mg carbonate 9-20 ER 450 mg 00:00: tablet,exte 00 nded release lithium 2021-0 No 1mg carbonate 9-20 ER 450 mg 00:00: tablet,exte 00 nded release lithium 2021-0 No 1mg carbonate 9-20 ER 450 mg 00:00: tablet,exte 00 nded release lithium 2021-0 No 1mg carbonate 9-20 ER 450 mg 00:00: tablet,exte 00 nded release lithium 2021-0 No 1mg carbonate 9-20 ER 450 mg 00:00: tablet,exte 00 nded release lithium 2021-0 No 1mg carbonate 9-20 ER 450 mg 00:00: tablet,exte 00 nded release lithium 2021-0 No 1mg carbonate 9-20 ER 450 mg 00:00: tablet,exte 00 nded release lithium 2021-0 No 1mg carbonate 9-20 ER 450 mg 00:00: tablet,exte 00 nded release lithium 2021-0 No 1mg carbonate 9-20 ER 450 mg 00:00: tablet,exte 00 nded release lithium 2021-0 No 1mg carbonate 9-20 ER 450 mg 00:00: tablet,exte 00 nded release lithium 2021-0 No 1mg carbonate 9-20 ER 450 mg 00:00: tablet,exte 00 nded release citalopram 2021-0 No 1mg 10 mg 8-22 tablet 00:00: 00 citalopram 2021-0 No 1mg 10 mg 8-22 tablet 00:00: 00 citalopram 2021-0 No 1mg 10 mg 8-22 tablet 00:00: 00 citalopram 2021-0 No 1mg 10 mg 8-22 tablet 00:00: 00 citalopram 2021-0 No 1mg 10 mg 8-22 tablet 00:00: 00 citalopram 2021-0 No 1mg 10 mg 8-22 tablet 00:00: 00 citalopram 2021-0 No 1mg 10 mg 8-22 tablet 00:00: 00 citalopram 2021-0 No 1mg 10 mg 8-22 tablet 00:00: 00 citalopram 2021-0 No 1mg 10 mg 8-22 tablet 00:00: 00 citalopram 2021-0 No 1mg 10 mg 8-22 tablet 00:00: 00 citalopram 2021-0 No 1mg 10 mg 8-22 tablet 00:00: 00 lithium 2021-0 No 1mg carbonate 7-13 ER 450 mg 00:00: tablet,exte 00 nded release lithium 1-0 No 1mg carbonate 7-13 ER 450 mg 00:00: tablet,exte 00 nded release lithium 2021-0 No 1mg carbonate 7-13 ER 450 mg 00:00: tablet,exte 00 nded release lithium 2021-0 No 1mg carbonate 7-13 ER 450 mg 00:00: tablet,exte 00 nded release lithium 2021-0 No 1mg carbonate 7-13 ER 450 mg 00:00: tablet,exte 00 nded release lithium 2021-0 No 1mg carbonate 7-13 ER 450 mg 00:00: tablet,exte 00 nded release lithium 2021-0 No 1mg carbonate 7-13 ER 450 mg 00:00: tablet,exte 00 nded release lithium 2021-0 No 1mg carbonate 7-13 ER 450 mg 00:00: tablet,exte 00 nded release lithium 2021-0 No 1mg carbonate 7-13 ER 450 mg 00:00: tablet,exte 00 nded release lithium 2021-0 No 1mg carbonate 7-13 ER 450 mg 00:00: tablet,exte 00 nded release lithium 2021-0 No 1mg carbonate 7-13 ER 450 mg 00:00: tablet,exte 00 nded release metoprolol 2021-0 No 1mg succinate 7-05 ER 100 mg 00:00: tablet,exte 00 nded release 24 hr clopidogrel 2021-0 No 1mg 75 mg 7-05 tablet 00:00: 00 hydrochloro 2021-0 No 1mg thiazide 7-05 12.5 mg 00:00: tablet 00 atorvastati 2021-0 No 1mg n 10 mg 7-05 tablet 00:00: 00 nitroglycer 2021-0 No 1mg in 0.4 mg 7-05 sublingual 00:00: tablet 00 levothyroxi 2021-0 No 1mcg ne 75 mcg 7-05 tablet 00:00: 00 metoprolol 2021-0 No 1mg succinate 7-05 ER 100 mg 00:00: tablet,exte 00 nded release 24 hr clopidogrel 2021-0 No 1mg 75 mg 7-05 tablet 00:00: 00 hydrochloro 2021-0 No 1mg thiazide 7-05 12.5 mg 00:00: tablet 00 atorvastati 2021-0 No 1mg n 10 mg 7-05 tablet 00:00: 00 nitroglycer 2021-0 No 1mg in 0.4 mg 7-05 sublingual 00:00: tablet 00 levothyroxi 1-0 No 1mcg ne 75 mcg 7-05 tablet 00:00: 00 metoprolol 2021-0 No 1mg succinate 7-05 ER 100 mg 00:00: tablet,exte 00 nded release 24 hr clopidogrel 2021-0 No 1mg 75 mg 7-05 tablet 00:00: 00 hydrochloro 2021-0 No 1mg thiazide 7-05 12.5 mg 00:00: tablet 00 atorvastati 2021-0 No 1mg n 10 mg 7-05 tablet 00:00: 00 nitroglycer 2021-0 No 1mg in 0.4 mg 7-05 sublingual 00:00: tablet 00 levothyroxi 2021-0 No 1mcg ne 75 mcg 7-05 tablet 00:00: 00 metoprolol 2021-0 No 1mg succinate 7-05 ER 100 mg 00:00: tablet,exte 00 nded release 24 hr clopidogrel 2021-0 No 1mg 75 mg 7-05 tablet 00:00: 00 hydrochloro 2021-0 No 1mg thiazide 7-05 12.5 mg 00:00: tablet 00 atorvastati 2021-0 No 1mg n 10 mg 7-05 tablet 00:00: 00 nitroglycer 2021-0 No 1mg in 0.4 mg 7-05 sublingual 00:00: tablet 00 levothyroxi 2021-0 No 1mcg ne 75 mcg 7-05 tablet 00:00: 00 metoprolol 2021-0 No 1mg succinate 7-05 ER 100 mg 00:00: tablet,exte 00 nded release 24 hr clopidogrel 2021-0 No 1mg 75 mg 7-05 tablet 00:00: 00 hydrochloro 2021-0 No 1mg thiazide 7-05 12.5 mg 00:00: tablet 00 atorvastati 2021-0 No 1mg n 10 mg 7-05 tablet 00:00: 00 nitroglycer 2021-0 No 1mg in 0.4 mg 7-05 sublingual 00:00: tablet 00 levothyroxi 2021-0 No 1mcg ne 75 mcg 7-05 tablet 00:00: 00 metoprolol 2021-0 No 1mg succinate 7-05 ER 100 mg 00:00: tablet,exte 00 nded release 24 hr clopidogrel 2021-0 No 1mg 75 mg 7-05 tablet 00:00: 00 hydrochloro 2021-0 No 1mg thiazide 7-05 12.5 mg 00:00: tablet 00 atorvastati 2021-0 No 1mg n 10 mg 7-05 tablet 00:00: 00 nitroglycer 2021-0 No 1mg in 0.4 mg 7-05 sublingual 00:00: tablet 00 levothyroxi 2021-0 No 1mcg ne 75 mcg 7-05 tablet 00:00: 00 metoprolol 2021-0 No 1mg succinate 7-05 ER 100 mg 00:00: tablet,exte 00 nded release 24 hr clopidogrel 2021-0 No 1mg 75 mg 7-05 tablet 00:00: 00 hydrochloro 2021-0 No 1mg thiazide 7-05 12.5 mg 00:00: tablet 00 atorvastati 2021-0 No 1mg n 10 mg 7-05 tablet 00:00: 00 nitroglycer 2021-0 No 1mg in 0.4 mg 7-05 sublingual 00:00: tablet 00 levothyroxi 2021-0 No 1mcg ne 75 mcg 7-05 tablet 00:00: 00 metoprolol 2021-0 No 1mg succinate 7-05 ER 100 mg 00:00: tablet,exte 00 nded release 24 hr clopidogrel 2021-0 No 1mg 75 mg 7-05 tablet 00:00: 00 hydrochloro 2021-0 No 1mg thiazide 7-05 12.5 mg 00:00: tablet 00 atorvastati 2021-0 No 1mg n 10 mg 7-05 tablet 00:00: 00 nitroglycer 2021-0 No 1mg in 0.4 mg 7-05 sublingual 00:00: tablet 00 levothyroxi 2021-0 No 1mcg ne 75 mcg 7-05 tablet 00:00: 00 metoprolol 2021-0 No 1mg succinate 7-05 ER 100 mg 00:00: tablet,exte 00 nded release 24 hr clopidogrel 2021-0 No 1mg 75 mg 7-05 tablet 00:00: 00 hydrochloro 2021-0 No 1mg thiazide 7-05 12.5 mg 00:00: tablet 00 atorvastati 1-0 No 1mg n 10 mg 7-05 tablet 00:00: 00 nitroglycer 2021-0 No 1mg in 0.4 mg 7-05 sublingual 00:00: tablet 00 levothyroxi 2021-0 No 1mcg ne 75 mcg 7-05 tablet 00:00: 00 metoprolol 2021-0 No 1mg succinate 7-05 ER 100 mg 00:00: tablet,exte 00 nded release 24 hr clopidogrel 2021-0 No 1mg 75 mg 7-05 tablet 00:00: 00 hydrochloro 2021-0 No 1mg thiazide 7-05 12.5 mg 00:00: tablet 00 atorvastati 1-0 No 1mg n 10 mg 7-05 tablet 00:00: 00 nitroglycer 2021-0 No 1mg in 0.4 mg 7-05 sublingual 00:00: tablet 00 levothyroxi 2021-0 No 1mcg ne 75 mcg 7-05 tablet 00:00: 00 metoprolol 2021-0 No 1mg succinate 7-05 ER 100 mg 00:00: tablet,exte 00 nded release 24 hr clopidogrel 2021-0 No 1mg 75 mg 7-05 tablet 00:00: 00 hydrochloro 2021-0 No 1mg thiazide 7-05 12.5 mg 00:00: tablet 00 atorvastati 2021-0 No 1mg n 10 mg 7-05 tablet 00:00: 00 nitroglycer 2021-0 No 1mg in 0.4 mg 7-05 sublingual 00:00: tablet 00 levothyroxi 2021-0 No 1mcg ne 75 mcg 7-05 tablet 00:00: 00 atorvastati 2021-0 No 1mg n 10 mg 6-14 tablet 00:00: 00 clopidogrel 2021-0 No 1mg 75 mg 6-14 tablet 00:00: 00 metoprolol 2021-0 No 1mg succinate 6-14 ER 100 mg 00:00: tablet,exte 00 nded release 24 hr levothyroxi 2021-0 No 1mcg ne 75 mcg 6-14 tablet 00:00: 00 atorvastati 2021-0 No 1mg n 10 mg 6-14 tablet 00:00: 00 clopidogrel 2021-0 No 1mg 75 mg 6-14 tablet 00:00: 00 metoprolol 2021-0 No 1mg succinate 6-14 ER 100 mg 00:00: tablet,exte 00 nded release 24 hr levothyroxi 2021-0 No 1mcg ne 75 mcg 6-14 tablet 00:00: 00 atorvastati 2021-0 No 1mg n 10 mg 6-14 tablet 00:00: 00 clopidogrel 2021-0 No 1mg 75 mg 6-14 tablet 00:00: 00 metoprolol 2021-0 No 1mg succinate 6-14 ER 100 mg 00:00: tablet,exte 00 nded release 24 hr levothyroxi 2021-0 No 1mcg ne 75 mcg 6-14 tablet 00:00: 00 atorvastati 2021-0 No 1mg n 10 mg 6-14 tablet 00:00: 00 clopidogrel 2021-0 No 1mg 75 mg 6-14 tablet 00:00: 00 metoprolol 2021-0 No 1mg succinate 6-14 ER 100 mg 00:00: tablet,exte 00 nded release 24 hr levothyroxi 2021-0 No 1mcg ne 75 mcg 6-14 tablet 00:00: 00 atorvastati 2021-0 No 1mg n 10 mg 6-14 tablet 00:00: 00 clopidogrel 2021-0 No 1mg 75 mg 6-14 tablet 00:00: 00 metoprolol 2021-0 No 1mg succinate 6-14 ER 100 mg 00:00: tablet,exte 00 nded release 24 hr levothyroxi 2021-0 No 1mcg ne 75 mcg 6-14 tablet 00:00: 00 atorvastati 2021-0 No 1mg n 10 mg 6-14 tablet 00:00: 00 clopidogrel 2021-0 No 1mg 75 mg 6-14 tablet 00:00: 00 metoprolol 2021-0 No 1mg succinate 6-14 ER 100 mg 00:00: tablet,exte 00 nded release 24 hr levothyroxi 2021-0 No 1mcg ne 75 mcg 6-14 tablet 00:00: 00 atorvastati 2021-0 No 1mg n 10 mg 6-14 tablet 00:00: 00 clopidogrel 2021-0 No 1mg 75 mg 6-14 tablet 00:00: 00 atorvastati 2021-0 No 1mg n 10 mg 6-14 tablet 00:00: 00 clopidogrel 2021-0 No 1mg 75 mg 6-14 tablet 00:00: 00 metoprolol 2021-0 No 1mg succinate 6-14 ER 100 mg 00:00: tablet,exte 00 nded release 24 hr metoprolol 2021-0 No 1mg succinate 6-14 ER 100 mg 00:00: tablet,exte 00 nded release 24 hr levothyroxi 2021-0 No 1mcg ne 75 mcg 6-14 tablet 00:00: 00 levothyroxi 2021-0 No 1mcg ne 75 mcg 6-14 tablet 00:00: 00 atorvastati 2021-0 No 1mg n 10 mg 6-14 tablet 00:00: 00 clopidogrel 2021-0 No 1mg 75 mg 6-14 tablet 00:00: 00 metoprolol 2021-0 No 1mg succinate 6-14 ER 100 mg 00:00: tablet,exte 00 nded release 24 hr levothyroxi 2021-0 No 1mcg ne 75 mcg 6-14 tablet 00:00: 00 atorvastati 2021-0 No 1mg n 10 mg 6-14 tablet 00:00: 00 clopidogrel 2021-0 No 1mg 75 mg 6-14 tablet 00:00: 00 metoprolol 2021-0 No 1mg succinate 6-14 ER 100 mg 00:00: tablet,exte 00 nded release 24 hr levothyroxi 2021-0 No 1mcg ne 75 mcg 6-14 tablet 00:00: 00 atorvastati 2021-0 No 1mg n 10 mg 6-14 tablet 00:00: 00 clopidogrel 2021-0 No 1mg 75 mg 6-14 tablet 00:00: 00 metoprolol 2021-0 No 1mg succinate 6-14 ER 100 mg 00:00: tablet,exte 00 nded release 24 hr levothyroxi 2021-0 No 1mcg ne 75 mcg 6-14 tablet 00:00: 00 atorvastati 2021-0 No 1mg n 10 mg 5-21 tablet 00:00: 00 clopidogrel 2021-0 No 1mg 75 mg 5-21 tablet 00:00: 00 atorvastati 2021-0 No 1mg n 10 mg 5-21 tablet 00:00: 00 clopidogrel 2021-0 No 1mg 75 mg 5-21 tablet 00:00: 00 atorvastati 2021-0 No 1mg n 10 mg 5-21 tablet 00:00: 00 clopidogrel 2021-0 No 1mg 75 mg 5-21 tablet 00:00: 00 atorvastati 2021-0 No 1mg n 10 mg 5-21 tablet 00:00: 00 clopidogrel 2021-0 No 1mg 75 mg 5-21 tablet 00:00: 00 atorvastati 2021-0 No 1mg n 10 mg 5-21 tablet 00:00: 00 clopidogrel 2021-0 No 1mg 75 mg 5-21 tablet 00:00: 00 atorvastati 2021-0 No 1mg n 10 mg 5-21 tablet 00:00: 00 clopidogrel 2021-0 No 1mg 75 mg 5-21 tablet 00:00: 00 atorvastati 2021-0 No 1mg n 10 mg 5-21 tablet 00:00: 00 clopidogrel 2021-0 No 1mg 75 mg 5-21 tablet 00:00: 00 atorvastati 2021-0 No 1mg n 10 mg 5-21 tablet 00:00: 00 clopidogrel 2021-0 No 1mg 75 mg 5-21 tablet 00:00: 00 atorvastati 2021-0 No 1mg n 10 mg 5-21 tablet 00:00: 00 clopidogrel 2021-0 No 1mg 75 mg 5-21 tablet 00:00: 00 atorvastati 2021-0 No 1mg n 10 mg 5-21 tablet 00:00: 00 clopidogrel 2021-0 No 1mg 75 mg 5-21 tablet 00:00: 00 atorvastati 2021-0 No 1mg n 10 mg 5-21 tablet 00:00: 00 clopidogrel 2021-0 No 1mg 75 mg 5-21 tablet 00:00: 00 citalopram 2021-0 No 1mg 10 mg 5-19 tablet 00:00: 00 Dose 2021-0 No Unknown 5-19 00:00: 00 citalopram 2021-0 No 1mg 10 mg 5-19 tablet 00:00: 00 Dose 2021-0 No Unknown 5-19 00:00: 00 citalopram 2021-0 No 1mg 10 mg 5-19 tablet 00:00: 00 Dose 2021-0 No Unknown 5-19 00:00: 00 citalopram 2021-0 No 1mg 10 mg 5-19 tablet 00:00: 00 Dose 2021-0 No Unknown 5-19 00:00: 00 citalopram 1-0 No 1mg 10 mg 5-19 tablet 00:00: 00 Dose 2021-0 No Unknown 5-19 00:00: 00 citalopram 2021-0 No 1mg 10 mg 5-19 tablet 00:00: 00 Dose 2021-0 No Unknown 5-19 00:00: 00 citalopram 2021-0 No 1mg 10 mg 5-19 tablet 00:00: 00 Dose 2021-0 No Unknown 5-19 00:00: 00 citalopram 2021-0 No 1mg 10 mg 5-19 tablet 00:00: 00 citalopram 2021-0 No 1mg 10 mg 5-19 tablet 00:00: 00 Dose 2021-0 No Unknown 5-19 00:00: 00 lithium 2021-0 No 1mg carbonate 5-19 ER 450 mg 00:00: tablet,exte 00 nded release citalopram 1-0 No 1mg 10 mg 5-19 tablet 00:00: 00 Dose 2021-0 No Unknown 5-19 00:00: 00 citalopram 2021-0 No 1mg 10 mg 5-19 tablet 00:00: 00 Dose 2021-0 No Unknown 5-19 00:00: 00 citalopram 2021-0 No 1mg 10 mg 5-17 tablet 00:00: 00 citalopram 2021-0 No 1mg 10 mg 5-17 tablet 00:00: 00 citalopram 2021-0 No 1mg 10 mg 5-17 tablet 00:00: 00 citalopram 2021-0 No 1mg 10 mg 5-17 tablet 00:00: 00 citalopram 2021-0 No 1mg 10 mg 5-17 tablet 00:00: 00 citalopram 2021-0 No 1mg 10 mg 5-17 tablet 00:00: 00 citalopram 2021-0 No 1mg 10 mg 5-17 tablet 00:00: 00 citalopram 2021-0 No 1mg 10 mg 5-17 tablet 00:00: 00 citalopram 2021-0 No 1mg 10 mg 5-17 tablet 00:00: 00 citalopram 1-0 No 1mg 10 mg 5-17 tablet 00:00: 00 citalopram 1-0 No 1mg 10 mg 5-17 tablet 00:00: 00 lithium 1-0 No 1mg carbonate 4-14 ER 450 mg 00:00: tablet,exte 00 nded release levothyroxi 1-0 No 1mcg ne 75 mcg 4-14 tablet 00:00: 00 lithium 2021-0 No 1mg carbonate 4-14 ER 450 mg 00:00: tablet,exte 00 nded release levothyroxi 1-0 No 1mcg ne 75 mcg 4-14 tablet 00:00: 00 lithium 2021-0 No 1mg carbonate 4-14 ER 450 mg 00:00: tablet,exte 00 nded release levothyroxi 1-0 No 1mcg ne 75 mcg 4-14 tablet 00:00: 00 lithium 2021-0 No 1mg carbonate 4-14 ER 450 mg 00:00: tablet,exte 00 nded release levothyroxi 1-0 No 1mcg ne 75 mcg 4-14 tablet 00:00: 00 lithium 2021-0 No 1mg carbonate 4-14 ER 450 mg 00:00: tablet,exte 00 nded release levothyroxi 1-0 No 1mcg ne 75 mcg 4-14 tablet 00:00: 00 lithium 2021-0 No 1mg carbonate 4-14 ER 450 mg 00:00: tablet,exte 00 nded release lithium 2021-0 No 1mg carbonate 4-14 ER 450 mg 00:00: tablet,exte 00 nded release levothyroxi 2021-0 No 1mcg ne 75 mcg 4-14 tablet 00:00: 00 levothyroxi 2021-0 No 1mcg ne 75 mcg 4-14 tablet 00:00: 00 lithium 2021-0 No 1mg carbonate 4-14 ER 450 mg 00:00: tablet,exte 00 nded release levothyroxi 1-0 No 1mcg ne 75 mcg 4-14 tablet 00:00: 00 lithium 2021-0 No 1mg carbonate 4-14 ER 450 mg 00:00: tablet,exte 00 nded release levothyroxi 1-0 No 1mcg ne 75 mcg 4-14 tablet 00:00: 00 lithium 2021-0 No 1mg carbonate 4-14 ER 450 mg 00:00: tablet,exte 00 nded release levothyroxi 1-0 No 1mcg ne 75 mcg 4-14 tablet 00:00: 00 lithium 1-0 No 1mg carbonate 4-14 ER 450 mg 00:00: tablet,exte 00 nded release levothyroxi 1-0 No 1mcg ne 75 mcg 4-14 tablet 00:00: 00 atorvastati 1-0 No 1mg n 10 mg 4-09 tablet 00:00: 00 clopidogrel 2021-0 No 1mg 75 mg 4-09 tablet 00:00: 00 nitroglycer 2021-0 No 1mg in 0.4 mg 4-09 sublingual 00:00: tablet 00 atorvastati 1-0 No 1mg n 10 mg 4-09 tablet 00:00: 00 clopidogrel 2021-0 No 1mg 75 mg 4-09 tablet 00:00: 00 nitroglycer 2021-0 No 1mg in 0.4 mg 4-09 sublingual 00:00: tablet 00 atorvastati 1-0 No 1mg n 10 mg 4-09 tablet 00:00: 00 clopidogrel 2021-0 No 1mg 75 mg 4-09 tablet 00:00: 00 nitroglycer 2021-0 No 1mg in 0.4 mg 4-09 sublingual 00:00: tablet 00 atorvastati 2021-0 No 1mg n 10 mg 4-09 tablet 00:00: 00 clopidogrel 2021-0 No 1mg 75 mg 4-09 tablet 00:00: 00 nitroglycer 2021-0 No 1mg in 0.4 mg 4-09 sublingual 00:00: tablet 00 atorvastati 2021-0 No 1mg n 10 mg 4-09 tablet 00:00: 00 atorvastati 2021-0 No 1mg n 10 mg 4-09 tablet 00:00: 00 clopidogrel 2021-0 No 1mg 75 mg 4-09 tablet 00:00: 00 nitroglycer 2021-0 No 1mg in 0.4 mg 4-09 sublingual 00:00: tablet 00 clopidogrel 2021-0 No 1mg 75 mg 4-09 tablet 00:00: 00 nitroglycer 2021-0 No 1mg in 0.4 mg 4-09 sublingual 00:00: tablet 00 atorvastati 2021-0 No 1mg n 10 mg 4-09 tablet 00:00: 00 clopidogrel 2021-0 No 1mg 75 mg 4-09 tablet 00:00: 00 nitroglycer 2021-0 No 1mg in 0.4 mg 4-09 sublingual 00:00: tablet 00 atorvastati 2021-0 No 1mg n 10 mg 4-09 tablet 00:00: 00 clopidogrel 2021-0 No 1mg 75 mg 4-09 tablet 00:00: 00 nitroglycer 2021-0 No 1mg in 0.4 mg 4-09 sublingual 00:00: tablet 00 atorvastati 2021-0 No 1mg n 10 mg 4-09 tablet 00:00: 00 clopidogrel 2021-0 No 1mg 75 mg 4-09 tablet 00:00: 00 nitroglycer 2021-0 No 1mg in 0.4 mg 4-09 sublingual 00:00: tablet 00 atorvastati 2021-0 No 1mg n 10 mg 4-09 tablet 00:00: 00 clopidogrel 2021-0 No 1mg 75 mg 4-09 tablet 00:00: 00 nitroglycer 2021-0 No 1mg in 0.4 mg 4-09 sublingual 00:00: tablet 00 atorvastati 2021-0 No 1mg n 10 mg 4-09 tablet 00:00: 00 clopidogrel 2021-0 No 1mg 75 mg 4-09 tablet 00:00: 00 nitroglycer 2021-0 No 1mg in 0.4 mg 4-09 sublingual 00:00: tablet 00 levothyroxi 2021-0 No 1mcg ne 75 mcg 3-10 tablet 00:00: 00 levothyroxi 2021-0 No 1mcg ne 75 mcg 3-10 tablet 00:00: 00 levothyroxi 2021-0 No 1mcg ne 75 mcg 3-10 tablet 00:00: 00 levothyroxi 2021-0 No 1mcg ne 75 mcg 3-10 tablet 00:00: 00 levothyroxi 2021-0 No 1mcg ne 75 mcg 3-10 tablet 00:00: 00 levothyroxi 2021-0 No 1mcg ne 75 mcg 3-10 tablet 00:00: 00 levothyroxi 2021-0 No 1mcg ne 75 mcg 3-10 tablet 00:00: 00 levothyroxi 2021-0 No 1mcg ne 75 mcg 3-10 tablet 00:00: 00 levothyroxi 2021-0 No 1mcg ne 75 mcg 3-10 tablet 00:00: 00 levothyroxi 2021-0 No 1mcg ne 75 mcg 3-10 tablet 00:00: 00 levothyroxi 2021-0 No 1mcg ne 75 mcg 3-10 tablet 00:00: 00 hydrochloro 2021-0 No 1mg thiazide 3-04 12.5 mg 00:00: tablet 00 hydrochloro 2021-0 No 1mg thiazide 3-04 12.5 mg 00:00: tablet 00 hydrochloro 2021-0 No 1mg thiazide 3-04 12.5 mg 00:00: tablet 00 hydrochloro 2021-0 No 1mg thiazide 3-04 12.5 mg 00:00: tablet 00 hydrochloro 2021-0 No 1mg thiazide 3-04 12.5 mg 00:00: tablet 00 hydrochloro 2021-0 No 1mg thiazide 3-04 12.5 mg 00:00: tablet 00 hydrochloro 2021-0 No 1mg thiazide 3-04 12.5 mg 00:00: tablet 00 hydrochloro 2021-0 No 1mg thiazide 3-04 12.5 mg 00:00: tablet 00 hydrochloro 2021-0 No 1mg thiazide 3-04 12.5 mg 00:00: tablet 00 hydrochloro 2021-0 No 1mg thiazide 3-04 12.5 mg 00:00: tablet 00 hydrochloro 2021-0 No 1mg thiazide 3-04 12.5 mg 00:00: tablet 00 lithium 2021-0 No 1mg carbonate 2-24 ER 450 mg 00:00: tablet,exte 00 nded release lithium 2021-0 No 1mg carbonate 2-24 ER 450 mg 00:00: tablet,exte 00 nded release lithium 2021-0 No 1mg carbonate 2-24 ER 450 mg 00:00: tablet,exte 00 nded release lithium 2021-0 No 1mg carbonate 2-24 ER 450 mg 00:00: tablet,exte 00 nded release lithium 2021-0 No 1mg carbonate 2-24 ER 450 mg 00:00: tablet,exte 00 nded release lithium 2021-0 No 1mg carbonate 2-24 ER 450 mg 00:00: tablet,exte 00 nded release lithium 2021-0 No 1mg carbonate 2-24 ER 450 mg 00:00: tablet,exte 00 nded release lithium 2021-0 No 1mg carbonate 2-24 ER 450 mg 00:00: tablet,exte 00 nded release lithium 2021-0 No 1mg carbonate 2-24 ER 450 mg 00:00: tablet,exte 00 nded release lithium 2021-0 No 1mg carbonate 2-24 ER 450 mg 00:00: tablet,exte 00 nded release lithium 2021-0 No 1mg carbonate 2-24 ER 450 mg 00:00: tablet,exte 00 nded release lithium 2021-0 No 1mg carbonate 1-27 ER 450 mg 00:00: tablet,exte 00 nded release lithium 2021-0 No 1mg carbonate 1-27 ER 450 mg 00:00: tablet,exte 00 nded release lithium 2021-0 No 1mg carbonate 1-27 ER 450 mg 00:00: tablet,exte 00 nded release lithium 2021-0 No 1mg carbonate 1-27 ER 450 mg 00:00: tablet,exte 00 nded release lithium 2021-0 No 1mg carbonate 1-27 ER 450 mg 00:00: tablet,exte 00 nded release lithium 1-0 No 1mg carbonate 1-27 ER 450 mg 00:00: tablet,exte 00 nded release lithium 1-0 No 1mg carbonate 1-27 ER 450 mg 00:00: tablet,exte 00 nded release lithium 1-0 No 1mg carbonate 1-27 ER 450 mg 00:00: tablet,exte 00 nded release lithium 1-0 No 1mg carbonate 1-27 ER 450 mg 00:00: tablet,exte 00 nded release lithium 1-0 No 1mg carbonate 1-27 ER 450 mg 00:00: tablet,exte 00 nded release lithium 1-0 No 1mg carbonate 1-27 ER 450 mg 00:00: tablet,exte 00 nded release Vitamin D3 1-0 No 1(1,000 25 mcg 1-11 unit) (1,000 00:00: unit) 00 tablet Vitamin D3 1-0 No 1(1,000 25 mcg 1-11 unit) (1,000 00:00: unit) 00 tablet Vitamin D3 1-0 No 1(1,000 25 mcg 1-11 unit) (1,000 00:00: unit) 00 tablet Vitamin D3 1-0 No 1(1,000 25 mcg 1-11 unit) (1,000 00:00: unit) 00 tablet Vitamin D3 1-0 No 1(1,000 25 mcg 1-11 unit) (1,000 00:00: unit) 00 tablet Vitamin D3 1-0 No 1(1,000 25 mcg 1-11 unit) (1,000 00:00: unit) 00 tablet Vitamin D3 2021-0 No 1(1,000 25 mcg 1-11 unit) (1,000 00:00: unit) 00 tablet Vitamin D3 2021-0 No 1(1,000 25 mcg 1-11 unit) (1,000 00:00: unit) 00 tablet Vitamin D3 2021-0 No 1(1,000 25 mcg 1-11 unit) (1,000 00:00: unit) 00 tablet Vitamin D3 2021-0 No 1(1,000 25 mcg 1-11 unit) (1,000 00:00: unit) 00 tablet Vitamin D3 1-0 No 1(1,000 25 mcg 1-11 unit) (1,000 00:00: unit) 00 tablet Vitamin D3 2021-0 No 1(1,000 25 mcg 1-11 unit) (1,000 00:00: unit) 00 tablet Vitamin D3 2021-0 No 1(1,000 25 mcg 1-11 unit) (1,000 00:00: unit) 00 tablet Vitamin D3 2021-0 No 1(1,000 25 mcg 1-11 unit) (1,000 00:00: unit) 00 tablet Vitamin D3 2021-0 No 1(1,000 25 mcg 1-11 unit) (1,000 00:00: unit) 00 tablet Vitamin D3 2021-0 No 1(1,000 25 mcg 1-11 unit) (1,000 00:00: unit) 00 tablet Vitamin D3 1-0 No 1(1,000 25 mcg 1-11 unit) (1,000 00:00: unit) 00 tablet Vitamin D3 2021-0 No 1(1,000 25 mcg 1-11 unit) (1,000 00:00: unit) 00 tablet Vitamin D3 1-0 No 1(1,000 25 mcg 1-11 unit) (1,000 00:00: unit) 00 tablet Vitamin D3 2021-0 No 1(1,000 25 mcg 1-11 unit) (1,000 00:00: unit) 00 tablet Vitamin D3 1-0 No 1(1,000 25 mcg 1-11 unit) (1,000 00:00: unit) 00 tablet Vitamin D3 2021-0 No 1(1,000 25 mcg 1-11 unit) (1,000 00:00: unit) 00 tablet Cipro 500 2021-0 No 1mg mg tablet 04-07 00:00: 00 Flagyl 500 2021-0 No 1mg mg tablet 04-07 00:00: 00 Cipro 500 2021-0 No 1mg mg tablet 04-07 00:00: 00 Flagyl 500 2021-0 No 1mg mg tablet 04-07 00:00: 00 Cipro 500 2021-0 No 1mg mg tablet 04-07 00:00: 00 Flagyl 500 2021-0 No 1mg mg tablet 04-07 00:00: 00 Cipro 500 2021-0 No 1mg mg tablet 04-07 00:00: 00 Flagyl 500 2021-0 No 1mg mg tablet 04-07 00:00: 00 Cipro 500 2021-0 No 1mg mg tablet - 00:00: 00 Flagyl 500 2021-0 No 1mg mg tablet - 00:00: 00 Cipro 500 2021-0 No 1mg mg tablet 04-07 00:00: 00 Flagyl 500 2021-0 No 1mg mg tablet 04-07 00:00: 00 Cipro 500 2021-0 No 1mg mg tablet 04-07 00:00: 00 Flagyl 500 2021-0 No 1mg mg tablet 04-07 00:00: 00 Cipro 500 2021-0 No 1mg mg tablet 04-07 00:00: 00 Flagyl 500 2021-0 No 1mg mg tablet 04-07 00:00: 00 Cipro 500 2021-0 No 1mg mg tablet 04-07 00:00: 00 Flagyl 500 2021-0 No 1mg mg tablet 04-07 00:00: 00 Cipro 500 2021-0 No 1mg mg tablet 04-07 00:00: 00 Flagyl 500 1-0 No 1mg mg tablet 04-07 00:00: 00 Cipro 500 2021-0 No 1mg mg tablet 04-07 00:00: 00 Flagyl 500 1-0 No 1mg mg tablet 04-07 00:00: 00 Diflucan 2020-1 No mg 150 mg 2-29 tablet 00:00: 00 Diflucan 2020-1 No mg 150 mg 2-29 tablet 00:00: 00 Diflucan 2020-1 No mg 150 mg 2-29 tablet 00:00: 00 Diflucan 2020-1 No mg 150 mg 2-29 tablet 00:00: 00 Diflucan 2020-1 No mg 150 mg 2-29 tablet 00:00: 00 Diflucan 2020-1 No mg 150 mg 2-29 tablet 00:00: 00 Diflucan 2020-1 No mg 150 mg 2-29 tablet 00:00: 00 Diflucan 2020-1 No mg 150 mg 2-29 tablet 00:00: 00 Diflucan 2020-1 No mg 150 mg 2-29 tablet 00:00: 00 Diflucan 2020-1 No mg 150 mg 2-29 tablet 00:00: 00 Diflucan 2020-1 No mg 150 mg 2-29 tablet 00:00: 00 metoprolol 2019-1 No 1mg succinate 2-26 ER 100 mg 00:00: tablet,exte 00 nded release 24 hr atorvastati 2019- No 1mg n 10 mg 2-26 tablet 00:00: 00 hydrochloro 2019-1 No 1mg thiazide 2-26 12.5 mg 00:00: tablet 00 lithium 2019- No 1mg carbonate 2-26 ER 450 mg 00:00: tablet,exte 00 nded release clopidogrel 2019- No 1mg 75 mg 2-26 tablet 00:00: 00 citalopram 2019- No 1mg 10 mg 2-26 tablet 00:00: 00 metoprolol 2019- No 1mg succinate 2-26 ER 100 mg 00:00: tablet,exte 00 nded release 24 hr lithium 2019- No 1mg carbonate 2-26 ER 450 mg 00:00: tablet,exte 00 nded release nitroglycer 2019- No 1mg in 0.4 mg 2-26 sublingual 00:00: tablet 00 levothyroxi 2019- No 1mcg ne 75 mcg 2-26 tablet 00:00: 00 nitroglycer 2019- No 1mg in 0.4 mg 2-26 sublingual 00:00: tablet 00 levothyroxi 2019- No 1mcg ne 75 mcg 2-26 tablet 00:00: 00 atorvastati 2019- No 1mg n 10 mg 2-26 tablet 00:00: 00 hydrochloro 2019-1 No 1mg thiazide 2-26 12.5 mg 00:00: tablet 00 clopidogrel 2019- No 1mg 75 mg 2-26 tablet 00:00: 00 citalopram 2019-1 No 1mg 10 mg 2-26 tablet 00:00: 00 metoprolol 2019- No 1mg succinate 2-26 ER 100 mg 00:00: tablet,exte 00 nded release 24 hr lithium 2019- No 1mg carbonate 2-26 ER 450 mg 00:00: tablet,exte 00 nded release nitroglycer 2019- No 1mg in 0.4 mg 2-26 sublingual 00:00: tablet 00 levothyroxi 2019-1 No 1mcg ne 75 mcg 2-26 tablet 00:00: 00 atorvastati 2019- No 1mg n 10 mg 2-26 tablet 00:00: 00 hydrochloro 2019-1 No 1mg thiazide 2-26 12.5 mg 00:00: tablet 00 clopidogrel 2019- No 1mg 75 mg 2-26 tablet 00:00: 00 citalopram 2019- No 1mg 10 mg 2-26 tablet 00:00: 00 metoprolol 2019- No 1mg succinate 2-26 ER 100 mg 00:00: tablet,exte 00 nded release 24 hr lithium 2019- No 1mg carbonate 2-26 ER 450 mg 00:00: tablet,exte 00 nded release nitroglycer 2019-04 No 1mg in 0.4 mg 2-26 sublingual 00:00: tablet 00 levothyroxi 2019- No 1mcg ne 75 mcg 2-26 tablet 00:00: 00 atorvastati 2019- No 1mg n 10 mg 2-26 tablet 00:00: 00 hydrochloro 2019- No 1mg thiazide 2-26 12.5 mg 00:00: tablet 00 clopidogrel 2019- No 1mg 75 mg 2-26 tablet 00:00: 00 citalopram 2019- No 1mg 10 mg 2-26 tablet 00:00: 00 metoprolol 2019- No 1mg succinate 2-26 ER 100 mg 00:00: tablet,exte 00 nded release 24 hr lithium 2019-04 No 1mg carbonate 2-26 ER 450 mg 00:00: tablet,exte 00 nded release nitroglycer 2019-04 No 1mg in 0.4 mg 2-26 sublingual 00:00: tablet 00 levothyroxi 2019- No 1mcg ne 75 mcg 2-26 tablet 00:00: 00 atorvastati 2019- No 1mg n 10 mg 2-26 tablet 00:00: 00 hydrochloro 2019-1 No 1mg thiazide 2-26 12.5 mg 00:00: tablet 00 clopidogrel 2019- No 1mg 75 mg 2-26 tablet 00:00: 00 citalopram 2019-1 No 1mg 10 mg 2-26 tablet 00:00: 00 metoprolol 2019- No 1mg succinate 2-26 ER 100 mg 00:00: tablet,exte 00 nded release 24 hr lithium 2019- No 1mg carbonate 2-26 ER 450 mg 00:00: tablet,exte 00 nded release nitroglycer 2019-04 No 1mg in 0.4 mg 2-26 sublingual 00:00: tablet 00 levothyroxi 2019- No 1mcg ne 75 mcg 2-26 tablet 00:00: 00 atorvastati 2019- No 1mg n 10 mg 2-26 tablet 00:00: 00 hydrochloro 2019-04 No 1mg thiazide 2-26 12.5 mg 00:00: tablet 00 clopidogrel 2019- No 1mg 75 mg 2-26 tablet 00:00: 00 citalopram 2019- No 1mg 10 mg 2-26 tablet 00:00: 00 metoprolol 2019-04 No 1mg succinate 2-26 ER 100 mg 00:00: tablet,exte 00 nded release 24 hr lithium 2019-04 No 1mg carbonate 2-26 ER 450 mg 00:00: tablet,exte 00 nded release nitroglycer 2019-04 No 1mg in 0.4 mg 2-26 sublingual 00:00: tablet 00 levothyroxi 2019-04 No 1mcg ne 75 mcg 2-26 tablet 00:00: 00 atorvastati 2019-04 No 1mg n 10 mg 2-26 tablet 00:00: 00 hydrochloro 2019-04 No 1mg thiazide 2-26 12.5 mg 00:00: tablet 00 clopidogrel 2019-04 No 1mg 75 mg 2-26 tablet 00:00: 00 citalopram 2019-04 No 1mg 10 mg 2-26 tablet 00:00: 00 metoprolol 2019- No 1mg succinate 2-26 ER 100 mg 00:00: tablet,exte 00 nded release 24 hr lithium 2019-04 No 1mg carbonate 2-26 ER 450 mg 00:00: tablet,exte 00 nded release nitroglycer 2019-04 No 1mg in 0.4 mg 2-26 sublingual 00:00: tablet 00 levothyroxi 2019- No 1mcg ne 75 mcg 2-26 tablet 00:00: 00 atorvastati 2019- No 1mg n 10 mg 2-26 tablet 00:00: 00 hydrochloro 2019-04 No 1mg thiazide 2-26 12.5 mg 00:00: tablet 00 clopidogrel 2019- No 1mg 75 mg 2-26 tablet 00:00: 00 citalopram 2019- No 1mg 10 mg 2-26 tablet 00:00: 00 metoprolol 2019- No 1mg succinate 2-26 ER 100 mg 00:00: tablet,exte 00 nded release 24 hr lithium 2019- No 1mg carbonate 2-26 ER 450 mg 00:00: tablet,exte 00 nded release nitroglycer 2019- No 1mg in 0.4 mg 2-26 sublingual 00:00: tablet 00 levothyroxi 2019- No 1mcg ne 75 mcg 2-26 tablet 00:00: 00 atorvastati 2019- No 1mg n 10 mg 2-26 tablet 00:00: 00 hydrochloro 2019- No 1mg thiazide 2-26 12.5 mg 00:00: tablet 00 clopidogrel 2019- No 1mg 75 mg 2-26 tablet 00:00: 00 citalopram 2019- No 1mg 10 mg 2-26 tablet 00:00: 00 metoprolol 2019- No 1mg succinate 2-26 ER 100 mg 00:00: tablet,exte 00 nded release 24 hr lithium 2019- No 1mg carbonate 2-26 ER 450 mg 00:00: tablet,exte 00 nded release nitroglycer 2019-04 No 1mg in 0.4 mg 2-26 sublingual 00:00: tablet 00 levothyroxi 2019- No 1mcg ne 75 mcg 2-26 tablet 00:00: 00 atorvastati 2019-1 No 1mg n 10 mg 2-26 tablet 00:00: 00 hydrochloro 2019-1 No 1mg thiazide 2-26 12.5 mg 00:00: tablet 00 clopidogrel 2019-1 No 1mg 75 mg 2-26 tablet 00:00: 00 atorvastati 2019-1 No 1mg n 10 mg 2-26 tablet 00:00: 00 hydrochloro 2019-1 No 1mg thiazide 2-26 12.5 mg 00:00: tablet 00 clopidogrel 2019-1 No 1mg 75 mg 2-26 tablet 00:00: 00 citalopram 2019-1 No 1mg 10 mg 2-26 tablet 00:00: 00 metoprolol 2019-1 No 1mg succinate 2-26 ER 100 mg 00:00: tablet,exte 00 nded release 24 hr lithium 2019-1 No 1mg carbonate 2-26 ER 450 mg 00:00: tablet,exte 00 nded release nitroglycer 2019-04 No 1mg in 0.4 mg 2-26 sublingual 00:00: tablet 00 levothyroxi 2019-04 No 1mcg ne 75 mcg 2-26 tablet 00:00: 00 citalopram 2019-04 No 1mg 10 mg 2-26 tablet 00:00: 00 levothyroxi 2020-0 Yes 75 Memori a ne 75 mcg 1-24 microgram l (0.075 mg) 17:20: = 1 tab, Her mcneal oral tablet 00 PO, Daily, # 30 tab, 0 Refill(s) lithium 2020-0 Yes 450 mg, Memoria carbonate 1-24 PO, BID, 0 l 17:20: Refill(s) Jh 00 citalopram 2019-0 Yes 10 mg = 1 Me moria 10 mg oral 1-24 tab, PO, l tablet 17:20: Daily, # Dickson 00 30 tab, 0 Refill(s) metoprolol 2019-0 Yes 100 mg = 1 M emoria 100 mg oral 1-24 tab, PO, l tablet, 17:20: Daily, # George n extended 00 30 tab, 0 release Refill(s) atorvastati 2020-0 Yes PO, Daily, Memoria n 1-24 0 l 17:20: Refill(s) Dickson 00 Aspirin 81 2020-0 Yes 81 mg = 1 Me moria MG Enteric 1-24 tab, PO, l Coated 17:20: Daily, # Jh Tablet 00 90 tab, 3 Refill(s) levothyroxi 2019-0 Yes 75 Memori a ne 75 mcg 1-24 microgram l (0.075 mg) 17:20: = 1 tab, Her mcneal oral tablet 00 PO, Daily, # 30 tab, 0 Refill(s) lithium 2020-0 Yes 450 mg, Memoria carbonate 1-24 PO, BID, 0 l 17:20: Refill(s) citalopram 2020-0 Yes 10 mg = 1 Me moria 10 mg oral 1-24 tab, PO, l tablet 17:20: Daily, # Dickson 00 30 tab, 0 Refill(s) metoprolol 2020-0 Yes 100 mg = 1 M emoria 100 mg oral 1-24 tab, PO, l tablet, 17:20: Daily, # George n extended 00 30 tab, 0 release Refill(s) atorvastati 2020-0 Yes PO, Daily, Memoria n 1-24 0 l 17:20: Refill(s) Jh Aspirin 81 2020-0 Yes 81 mg = 1 Me moria MG Enteric 1-24 tab, PO, l Coated 17:20: Daily, # Dickson Tablet 00 90 tab, 3 Refill(s) metoprolol 2020-0 Yes 100 mg = 1 M emoria 100 mg oral 1-24 tab, PO, l tablet, 17:20: Daily, # George n extended 00 30 tab, 0 release Refill(s) atorvastati 2020-0 Yes PO, Daily, Memoria n 1-24 0 l 17:20: Refill(s) Dickson Aspirin 81 2020-0 Yes 81 mg = 1 Me moria MG Enteric 1-24 tab, PO, l Coated 17:20: Daily, # Dickson Tablet 00 90 tab, 3 Refill(s) levothyroxi 2020-0 Yes 75 Memori a ne 75 mcg 1-24 microgram l (0.075 mg) 17:20: = 1 tab, Her mcneal oral tablet 00 PO, Daily, # 30 tab, 0 Refill(s) lithium 2020-0 Yes 450 mg, Memoria carbonate 1-24 PO, BID, 0 l 17:20: Refill(s) Dickson 00 levothyroxi 2020-0 Yes 75 Memori a ne 75 mcg 1-24 microgram l (0.075 mg) 17:20: = 1 tab, Her mcneal oral tablet 00 PO, Daily, # 30 tab, 0 Refill(s) citalopram 2020-0 Yes 10 mg = 1 Me moria 10 mg oral 1-24 tab, PO, l tablet 17:20: Daily, # Dickson 00 30 tab, 0 Refill(s) lithium 2020-0 Yes 450 mg, Memoria carbonate 1-24 PO, BID, 0 l 17:20: Refill(s) Dickson 00 citalopram 2020-0 Yes 10 mg = 1 Me moria 10 mg oral 1-24 tab, PO, l tablet 17:20: Daily, # Dickson 00 30 tab, 0 Refill(s) metoprolol 2020-0 Yes 100 mg = 1 M emoria 100 mg oral 1-24 tab, PO, l tablet, 17:20: Daily, # George n extended 00 30 tab, 0 release Refill(s) atorvastati 2020-0 Yes PO, Daily, Memoria n 1-24 0 l 17:20: Refill(s) Dickson Aspirin 81 2020-0 Yes 81 mg = 1 Me moria MG Enteric 1-24 tab, PO, l Coated 17:20: Daily, # Dickson Tablet 00 90 tab, 3 Refill(s) levothyroxi 2020-0 Yes 75 Memori a ne 75 mcg 1-24 microgram l (0.075 mg) 17:20: = 1 tab, Her mcneal oral tablet 00 PO, Daily, # 30 tab, 0 Refill(s) lithium 2020-0 Yes 450 mg, Memoria carbonate 1-24 PO, BID, 0 l 17:20: Refill(s) citalopram 2020-0 Yes 10 mg = 1 Me moria 10 mg oral 1-24 tab, PO, l tablet 17:20: Daily, # Dickson 00 30 tab, 0 Refill(s) metoprolol 2020-0 Yes 100 mg = 1 M emoria 100 mg oral 1-24 tab, PO, l tablet, 17:20: Daily, # George n extended 00 30 tab, 0 release Refill(s) atorvastati 2020-0 Yes PO, Daily, Memoria n 1-24 0 l 17:20: Refill(s) Jh Aspirin 81 2020-0 Yes 81 mg = 1 Me moria MG Enteric 1-24 tab, PO, l Coated 17:20: Daily, # Dickson Tablet 00 90 tab, 3 Refill(s) levothyroxi 2020-0 Yes 75 Memori a ne 75 mcg 1-24 microgram l (0.075 mg) 17:20: = 1 tab, Her mcneal oral tablet 00 PO, Daily, # 30 tab, 0 Refill(s) lithium 2020-0 Yes 450 mg, Memoria carbonate 1-24 PO, BID, 0 l 17:20: Refill(s) citalopram 2020-0 Yes 10 mg = 1 Me moria 10 mg oral 1-24 tab, PO, l tablet 17:20: Daily, # Jh 00 30 tab, 0 Refill(s) metoprolol 2020-0 Yes 100 mg = 1 M emoria 100 mg oral 1-24 tab, PO, l tablet, 17:20: Daily, # George n extended 00 30 tab, 0 release Refill(s) atorvastati 2020-0 Yes PO, Daily, Memoria n 1-24 0 l 17:20: Refill(s) Dickson Aspirin 81 2020-0 Yes 81 mg = 1 Me moria MG Enteric 1-24 tab, PO, l Coated 17:20: Daily, # Dickson Tablet 00 90 tab, 3 Refill(s) levothyroxi 2020-0 Yes 75 Memori a ne 75 mcg 1-24 microgram l (0.075 mg) 17:20: = 1 tab, Her mcneal oral tablet 00 PO, Daily, # 30 tab, 0 Refill(s) lithium 2020-0 Yes 450 mg, Memoria carbonate 1-24 PO, BID, 0 l 17:20: Refill(s) citalopram 2020-0 Yes 10 mg = 1 Me moria 10 mg oral 1-24 tab, PO, l tablet 17:20: Daily, # Dickson 00 30 tab, 0 Refill(s) metoprolol 2020-0 Yes 100 mg = 1 M emoria 100 mg oral 1-24 tab, PO, l tablet, 17:20: Daily, # George n extended 00 30 tab, 0 release Refill(s) atorvastati 2020-0 Yes PO, Daily, Memoria n 1-24 0 l 17:20: Refill(s) Aspirin 81 2020-0 Yes 81 mg = 1 Me moria MG Enteric 1-24 tab, PO, l Coated 17:20: Daily, # Jh Tablet 00 90 tab, 3 Refill(s) levothyroxi 2020-0 Yes 75 Memori a ne 75 mcg 1-24 microgram l (0.075 mg) 17:20: = 1 tab, Her mcneal oral tablet 00 PO, Daily, # 30 tab, 0 Refill(s) lithium 2020-0 Yes 450 mg, Memoria carbonate 1-24 PO, BID, 0 l 17:20: Refill(s) citalopram 2020-0 Yes 10 mg = 1 Me moria 10 mg oral 1-24 tab, PO, l tablet 17:20: Daily, # Jh 00 30 tab, 0 Refill(s) metoprolol 2020-0 Yes 100 mg = 1 M emoria 100 mg oral 1-24 tab, PO, l tablet, 17:20: Daily, # George n extended 00 30 tab, 0 release Refill(s) atorvastati 2020-0 Yes PO, Daily, Memoria n 1-24 0 l 17:20: Refill(s) Dickson Aspirin 81 2020-0 Yes 81 mg = 1 Me moria MG Enteric 1-24 tab, PO, l Coated 17:20: Daily, # Jh Tablet 00 90 tab, 3 Refill(s) levothyroxi 2020-0 Yes 75 Memori a ne 75 mcg 1-24 microgram l (0.075 mg) 17:20: = 1 tab, Her mcneal oral tablet 00 PO, Daily, # 30 tab, 0 Refill(s) lithium 2020-0 Yes 450 mg, Memoria carbonate 1-24 PO, BID, 0 l 17:20: Refill(s) citalopram 2020-0 Yes 10 mg = 1 Me moria 10 mg oral 1-24 tab, PO, l tablet 17:20: Daily, # Jh 00 30 tab, 0 Refill(s) metoprolol 2020-0 Yes 100 mg = 1 M emoria 100 mg oral 1-24 tab, PO, l tablet, 17:20: Daily, # George n extended 00 30 tab, 0 release Refill(s) atorvastati 2020-0 Yes PO, Daily, Memoria n 1-24 0 l 17:20: Refill(s) Aspirin 81 2020-0 Yes 81 mg = 1 Me moria MG Enteric 1-24 tab, PO, l Coated 17:20: Daily, # Jh Tablet 00 90 tab, 3 Refill(s) lithium 2020-0 Yes 450mg Take 450 Unive rs carbonate 1-03 mg by ity of CR 450 mg 18:44: mouth 2 [place] SR tablet 18 (two) Medical times Branch daily. levothyroxi 2020-0 Yes 75ug Take 75 Uni vers ne 75 mcg 1-03 mcg by ity of tablet 18:44: mouth [place] 18 every Medical morning. Branch clopidogrel 2020-0 Yes 75mg Take 75 mg Univers (PLAVIX) 75 1-03 by mouth ity of mg tablet 18:44: daily. [place] [address] Medical Branch metoprolol 2020-0 Yes 100mg Take 100 Un debo succinate 1-03 mg by ity of 100 mg CSpX 18:44: mouth [place] 18 daily. Medical Branch atorvastati 2020-0 Yes 10mg Take 10 mg Univers n 10 mg 1-03 by mouth ity of tablet 18:44: at [place] 18 bedtime. Medical Branch aspirin 81 2020-0 Yes 81mg Take 81 mg U nivers mg chewable 1-03 by mouth ity of tablet 18:44: daily. [place] [address] Medical Branch citalopram 2020-0 Yes 20mg Take 20 mg U nivers 20 mg 1-03 by mouth ity of tablet 18:44: daily. [place] [address] Medical Branch lithium 2020-0 Yes 450mg Take 450 Unive rs carbonate 1-03 mg by ity of CR 450 mg 18:44: mouth 2 [place] SR tablet 18 (two) Medical times Branch daily. levothyroxi 2020-0 Yes 75ug Take 75 Uni vers ne 75 mcg 1-03 mcg by ity of tablet 18:44: mouth [place] 18 every Medical morning. Branch clopidogrel 2020-0 Yes 75mg Take 75 mg Univers (PLAVIX) 75 1-03 by mouth ity of mg tablet 18:44: daily. [place] [address] Medical Branch metoprolol 2020-0 Yes 100mg Take 100 Un debo succinate 1-03 mg by ity of 100 mg CSpX 18:44: mouth [place] 18 daily. Medical Branch atorvastati 2020-0 Yes 10mg Take 10 mg Univers n 10 mg 1-03 by mouth ity of tablet 18:44: at [place] 18 bedtime. Medical Branch aspirin 81 2020-0 Yes 81mg Take 81 mg U nivers mg chewable 1-03 by mouth ity of tablet 18:44: daily. [place] [address] Medical Branch citalopram 2020-0 Yes 20mg Take 20 mg U nivers 20 mg 1-03 by mouth ity of tablet 18:44: daily. [place] [address] Medical Branch lithium 2020-0 Yes 450mg Take 450 Unive rs carbonate 1-03 mg by ity of CR 450 mg 18:44: mouth 2 [place] SR tablet 18 (two) Medical times Branch daily. levothyroxi 2020-0 Yes 75ug Take 75 Uni vers ne 75 mcg 1-03 mcg by ity of tablet 18:44: mouth [place] 18 every Medical morning. Branch clopidogrel 2020-0 Yes 75mg Take 75 mg Univers (PLAVIX) 75 1-03 by mouth ity of mg tablet 18:44: daily. [place] [address] Medical Branch metoprolol 2020-0 Yes 100mg Take 100 Un debo succinate 1-03 mg by ity of 100 mg CSpX 18:44: mouth [place] 18 daily. Medical Branch atorvastati 2020-0 Yes 10mg Take 10 mg Univers n 10 mg 1-03 by mouth ity of tablet 18:44: at [place] [address] bedtime. Medical Branch aspirin 81 2020-0 Yes 81mg Take 81 mg U nivers mg chewable 1-03 by mouth ity of tablet 18:44: daily. [place] [address] Medical Branch citalopram 2020-0 Yes 20mg Take 20 mg U nivers 20 mg 1-03 by mouth ity of tablet 18:44: daily. [place] [address] Medical Branch lithium 2020-0 Yes 450mg Take 450 Unive rs carbonate 1-03 mg by ity of CR 450 mg 18:44: mouth 2 [place] SR tablet 18 (two) Medical times Branch daily. levothyroxi 2020-0 Yes 75ug Take 75 Uni vers ne 75 mcg 1-03 mcg by ity of tablet 18:44: mouth [place] 18 every Medical morning. Branch clopidogrel 2020-0 Yes 75mg Take 75 mg Univers (PLAVIX) 75 1-03 by mouth ity of mg tablet 18:44: daily. [place] [address] Medical Branch metoprolol 2020-0 Yes 100mg Take 100 Un debo succinate 1-03 mg by ity of 100 mg CSpX 18:44: mouth [place] 18 daily. Medical Branch atorvastati 2020-0 Yes 10mg Take 10 mg Univers n 10 mg 1-03 by mouth ity of tablet 18:44: at [place] [address] bedtime. Medical Branch aspirin 81 2020-0 Yes 81mg Take 81 mg U nivers mg chewable 1-03 by mouth ity of tablet 18:44: daily. [place] [address] Medical Branch citalopram 2020-0 Yes 20mg Take 20 mg U nivers 20 mg 1-03 by mouth ity of tablet 18:44: daily. [place] [address] Medical Branch ipratropium 2018- Yes 3mL Inhale 3 Un edbo -albuterol 0-29 mL every 6 ity of 0.5 mg-3 00:00: (six) [place] mg(2.5 mg 00 hours as Medica l base)/3 mL needed for Bra [facility] nebulizer Wheezing. solution ipratropium 2017- Yes 3mL Inhale 3 Un debo -albuterol 0-29 mL every 6 ity of 0.5 mg-3 00:00: (six) [place] mg(2.5 mg 00 hours as Medica l base)/3 mL needed for Bra nch nebulizer Wheezing. solution ipratropium 2017- Yes 3mL Inhale 3 Un debo -albuterol 0-29 mL every 6 ity of 0.5 mg-3 00:00: (six) [place] mg(2.5 mg 00 hours as Medica l base)/3 mL needed for Bra nch nebulizer Wheezing. solution ipratropium 2017- Yes 3mL Inhale 3 Un debo -albuterol 0-29 mL every 6 ity of 0.5 mg-3 00:00: (six) [place] mg(2.5 mg 00 hours as Medica l base)/3 mL needed for Bra nch nebulizer Wheezing. solution Vital Signs Vital Name Observation Time Observation Value Comments Source Systolic blood 2022-02-24 12:00:00 145 mm[Hg[facility] 2022-02-24 12:00:00 81 mm[Hg] Unive [facility] Heart rate 2022-02-24 12:00:00 88 /min [facility] Respiratory rate 2022-02-24 12:00:00 18 /min [facility] Oxygen saturation in 2022-02-24 12:00:00 98 /min [facility] Arterial blood by [facility] Pulse oximetry Branch Body temperature 2022-02-24 11:00:00 36.78 Margarita [facility] Body height 2022-02-24 11:00:00 157.5 cm [facility] Body weight 2022-02-24 11:00:00 105.235 kg [facility] BMI 2022-02-24 11:00:00 42.43 kg/m2 [facility] Systolic blood 2022-01-15 11:49:00 138 mm[Hg] Univer sity [facility] Diastolic blood 2022-01-15 11:49:00 74 mm[Hg] Unive [facility] [place] Heart rate 2022-01-15 11:49:00 80 /min Universi ty [facility] Respiratory rate 2022-01-15 11:49:00 22 /min [facility] Oxygen saturation in 2022-01-15 11:49:00 91 /min [facility] Arterial blood by [facility] Pulse oximetry Branch Body temperature 2022-01-15 10:01:00 35.89 Margarita [facility] Body height 2022-01-15 10:01:00 [facility] Body weight 2022-01-15 10:01:00 103.42 kg [facility] BMI 2022-01-15 10:01:00 41.70 kg/m2 [facility] BP Systolic 2022-03-04 09:36:00 BP Diastolic 2022-03-04 09:36:00 Weight Measured 2022-03-04 09:36:00 229.60 pounds Height Measured 2022-03-04 09:36:00 62.00 inches Body Temperature 2022-03-04 09:36:00 Heart Rate 2022-03-04 09:36:00 Respiratory Rate 2022-03-04 09:36:00 BP Systolic 2022-02-27 15:23:00 BP Diastolic 2022-02-27 15:23:00 Weight Measured 2022-02-27 15:23:00 229.60 pounds Height Measured 2022-02-27 15:23:00 62.00 inches Body Temperature 2022-02-27 15:23:00 Heart Rate 2022-02-27 15:23:00 Respiratory Rate 2022-02-27 15:23:00 BP Systolic 2022-02-27 15:13:00 BP Diastolic 2022-02-27 15:13:00 Weight Measured 2022-02-27 15:13:00 229.60 pounds Height Measured 2022-02-27 15:13:00 62.00 inches Body Temperature 2022-02-27 15:13:00 Heart Rate 2022-02-27 15:13:00 Respiratory Rate 2022-02-27 15:13:00 BP Systolic 2022-02-26 14:50:00 135 mm[Hg] BP Diastolic 2022-02-26 14:50:00 79 mm[Hg] Weight Measured 2022-02-26 14:50:00 229.60 pounds Height Measured 2022-02-26 14:50:00 62.00 inches Body Temperature 2022-02-26 14:50:00 97.60 degrees Heart Rate 2022-02-26 14:50:00 110.00 /min Respiratory Rate 2022-02-26 14:50:00 BP Systolic 2022-02-20 11:14:00 120 mm[Hg] BP Diastolic 2022-02-20 11:14:00 60 mm[Hg] Weight Measured 2022-02-20 11:14:00 234.80 pounds Height Measured 2022-02-20 11:14:00 62.00 inches Body Temperature 2022-02-20 11:14:00 97.50 degrees Heart Rate 2022-02-20 11:14:00 66.00 /min Respiratory Rate 2022-02-20 11:14:00 25.00 /min BP Systolic 2022-02-14 14:10:00 94 mm[Hg] BP Diastolic 2022-02-14 14:10:00 63 mm[Hg] Weight Measured 2022-02-14 14:10:00 232.60 pounds Height Measured 2022-02-14 14:10:00 62.00 inches Body Temperature 2022-02-14 14:10:00 97.10 degrees Heart Rate 2022-02-14 14:10:00 97.00 /min Respiratory Rate 2022-02-14 14:10:00 BP Systolic 2022-02-06 10:15:00 117 mm[Hg] BP Diastolic 2022-02-06 10:15:00 65 mm[Hg] Weight Measured 2022-02-06 10:15:00 235.80 pounds Height Measured 2022-02-06 10:15:00 62.00 inches Body Temperature 2022-02-06 10:15:00 97.80 degrees Heart Rate 2022-02-06 10:15:00 88.00 /min Respiratory Rate 2022-02-06 10:15:00 BP Systolic 2022-01-02 09:10:00 142 mm[Hg] BP Diastolic 2022-01-02 09:10:00 79 mm[Hg] Weight Measured 2022-01-02 09:10:00 231.00 pounds Height Measured 2022-01-02 09:10:00 62.00 inches Body Temperature 2022-01-02 09:10:00 97.30 degrees Heart Rate 2022-01-02 09:10:00 80.00 /min Respiratory Rate 2022-01-02 09:10:00 24.00 /min BP Systolic 2021-12-26 11:50:00 131 mm[Hg] BP Diastolic 2021-12-26 11:50:00 71 mm[Hg] Weight Measured 2021-12-26 11:50:00 233.60 pounds Height Measured 2021-12-26 11:50:00 62.00 inches Body Temperature 2021-12-26 11:50:00 98.50 degrees Heart Rate 2021-12-26 11:50:00 88.00 /min Respiratory Rate 2021-12-26 11:50:00 24.00 /min BP Systolic 2021-10-03 08:32:00 122 mm[Hg] BP Diastolic 2021-10-03 08:32:00 66 mm[Hg] Weight Measured 2021-10-03 08:32:00 249.20 pounds Height Measured 2021-10-03 08:32:00 62.00 inches Body Temperature 2021-10-03 08:32:00 97.50 degrees Heart Rate 2021-10-03 08:32:00 77.00 /min Respiratory Rate 2021-10-03 08:32:00 16.00 /min BP Systolic 2021-09-19 11:12:00 133 mm[Hg] BP Diastolic 2021-09-19 11:12:00 77 mm[Hg] Weight Measured 2021-09-19 11:12:00 245.00 pounds Height Measured 2021-09-19 11:12:00 62.00 inches Body Temperature 2021-09-19 11:12:00 97.30 degrees Heart Rate 2021-09-19 11:12:00 83.00 /min Respiratory Rate 2021-09-19 11:12:00 BP Systolic 2021-09-09 11:44:00 155 mm[Hg] BP Diastolic 2021-09-09 11:44:00 77 mm[Hg] Weight Measured 2021-09-09 11:44:00 248.60 pounds Height Measured 2021-09-09 11:44:00 62.00 inches Body Temperature 2021-09-09 11:44:00 97.90 degrees Heart Rate 2021-09-09 11:44:00 94.00 /min Respiratory Rate 2021-09-09 11:44:00 BP Systolic 2021-08-09 11:22:00 130 mm[Hg] BP Diastolic 2021-08-09 11:22:00 62 mm[Hg] Weight Measured 2021-08-09 11:22:00 242.60 pounds Height Measured 2021-08-09 11:22:00 62.00 inches Body Temperature 2021-08-09 11:22:00 97.00 degrees Heart Rate 2021-08-09 11:22:00 75.00 /min Respiratory Rate 2021-08-09 11:22:00 BP Systolic 2021 13:42:00 115 mm[Hg] BP Diastolic 2021 13:42:00 60 mm[Hg] Weight Measured 2021 13:42:00 241.00 pounds Height Measured 2021 13:42:00 62.00 inches Body Temperature 2021 13:42:00 98.30 degrees Heart Rate 2021 13:42:00 73.00 /min Respiratory Rate 2021 13:42:00 21.00 /min BP Systolic 2021-07-19 09:11:00 156 mm[Hg] BP Diastolic 2021-07-19 09:11:00 88 mm[Hg] Weight Measured 2021-07-19 09:11:00 232.00 pounds Height Measured 2021-07-19 09:11:00 62.00 inches Body Temperature 2021-07-19 09:11:00 Heart Rate 2021-07-19 09:11:00 88.00 /min Respiratory Rate 2021-07-19 09:11:00 BP Systolic 2021-04-18 09:32:00 143 mm[Hg] BP Diastolic 2021-04-18 09:32:00 70 mm[Hg] Weight Measured 2021-04-18 09:32:00 231.40 pounds Height Measured 2021-04-18 09:32:00 62.00 inches Body Temperature 2021-04-18 09:32:00 98.20 degrees Heart Rate 2021-04-18 09:32:00 79.00 /min Respiratory Rate 2021-04-18 09:32:00 BP Systolic 2021-04-03 17:24:00 BP Diastolic 2021-04-03 17:24:00 Weight Measured 2021-04-03 17:24:00 230.00 pounds Height Measured 2021-04-03 17:24:00 62.00 inches Body Temperature 2021-04-03 17:24:00 Heart Rate 2021-04-03 17:24:00 Respiratory Rate 2021-04-03 17:24:00 BP Systolic 2021-03-13 08:36:00 114 mm[Hg] BP Diastolic 2021-03-13 08:36:00 73 mm[Hg] Weight Measured 2021-03-13 08:36:00 232.60 pounds Height Measured 2021-03-13 08:36:00 62.00 inches Body Temperature 2021-03-13 08:36:00 98.10 degrees Heart Rate 2021-03-13 08:36:00 72.00 /min Respiratory Rate 2021-03-13 08:36:00 16.00 /min BP Systolic 2021-03-13 08:35:00 114 mm[Hg] BP Diastolic 2021-03-13 08:35:00 73 mm[Hg] Weight Measured 2021-03-13 08:35:00 232.60 pounds Height Measured 2021-03-13 08:35:00 62.00 inches Body Temperature 2021-03-13 08:35:00 98.10 degrees Heart Rate 2021-03-13 08:35:00 72.00 /min Respiratory Rate 2021-03-13 08:35:00 16.00 /min Systolic (mm Hg) 2019-04-24 17:15:00 Jae riatalon Jh Diastolic (mm Hg) 2019-04-24 17:15:00 [facility] orial Jh Height 2019-04-24 17:15:00 157.48 cm [facility] Weight 2019-04-24 17:15:00 [facility] BMI Calculated 2019-04-24 17:15:00 Maria L Kelley Procedures Procedure Date / Time Performing Clinician Source Performed XR CHEST 1 VW 2022-02-24 11:28:44 Dolores Patterson [facility] LIPASE 2022-02-24 11:08:00 Yesenia [facility] TROPONIN I 2022-02-24 11:08[facility]OL[facility] 2022-02-24 11:08:00 Dolores Patterson [facility] ([id number]) [facility] CBC WITH DIFF 2022-02-24 11:08:00 Yesenia [facility] PROTHROMBIN TIME / INR 2022-02-24 11:08:00 Dolores Patterson [facility] ACTIVATED PARTIAL 2022-02-24 11:08:00 Dolores Patterson [facility] 2022-02-24 11:08:00 Dolores Patterson [facility] CONSENT/REFUSAL FOR 2022-02-24 10:53:13 Doctor Unassigned, [facility] DIAGNOSIS AND TREATMENT [facility] XR CHEST 1 VW 2022-01-15 10:43:31 Rustam Looney [facility] URINALYSIS 2022-01-15 10:13:00 Rustam Looney [facility] LIPASE 2022-01-15 10:05:00 Rustam Looney [facility] TROPONIN I 2022-01-15 10:05:00 Rustam Looney [facility] COMP. METABOLIC PANEL 2022-01-15 10:05:00 Rustam Looney [facility] ([id number]) [facility] CBC WITH DIFF 2022-01-15 10:05:00 Rustam Looney [facility] PROTHROMBIN TIME / INR 2022-01-15 10:05:00 Rustam Looney [facility] ACTIVATED PARTIAL 2022-01-15 10:05:00 Rustam Looney [facility] THRMPLAS DANNA [facility] N-TERMINAL PRO-BNP 2022-01-15 10:05:00 Rustam Looney [facility] CONSENT/REFUSAL FOR 2022-01-15 09:53:55 Doctor Unaabigail, [facility] DIAGNOSIS AND TREATMENT [facility] REFERRAL- 2021-08-09 05:01:00 Doctor Unassmatthew, [facility] REQUEST/RESPONSE [facility] Abdominoplasty 2003-04-01 00:00:00 [facility]:00[facility]00 [facility] section<sup>1</sup> Plan of Care Planned Activity Planned Date Details Comments Source Goal Plan of Care Note [code = 51758-2] Goal Plan of Care Note [code = 01926-3] Goal Plan of Care Note [code = 34523-9] Goal Plan of Care Note [code = 16831-4] Goal Plan of Care Note [code = 66419-2] Goal Plan of Care Note [code = 45965-5] Goal Plan of Care Note [code = 32809-2] Goal Plan of Care Note [code = 08958-5] Goal Plan of Care Note [code = 28068-3] Goal Plan of Care Note [code = 93147-5] Goal Plan of Care Note [code = 40220-7] Goal Plan of Care Note [code = 19336-1] Goal Plan of Care Note [code = 69625-3] Goal Plan of Care Note [code = 97375-4] Goal Plan of Care Note [code = 69346-1] Goal Plan of Care Note [code = 66423-4] Goal Plan of Care Note [code = 18485-0] Goal Plan of Care Note [code = 20328-6] Goal Plan of Care Note [code = 90193-9] Goal Plan of Care Note [code = 06478-6] Goal Plan of Care Note [code = 99479-3] Goal Plan of Care Note [code = 90846-2] Goal Plan of Care Note [code = 47283-8] Goal Plan of Care Note [code = 91670-0] Goal Plan of Care Note [code = 20044-7] Goal Plan of Care Note [code = 42762-7] Goal Plan of Care Note [code = 89288-5] Goal Plan of Care Note [code = 30767-7] Goal Plan of Care Note [code = 54463-6] Goal Plan of Care Note [code = 23896-6] Goal Plan of Care Note [code = 51853-2] Goal Plan of Care Note [code = 12339-1] Goal Plan of Care Note [code = 98926-0] Goal Plan of Care Note [code = 58112-1] Goal Plan of Care Note [code = 04378-1] Goal Plan of Care Note [code = 70767-6] Goal Plan of Care Note [code = 33299-7] Goal Plan of Care Note [code = 90668-7] Goal Plan of Care Note [code = 78800-8] Goal Plan of Care Note [code = 89697-7] Goal Plan of Care Note [code = 28286-0] Goal Plan of Care Note [code = 37574-9] Goal Plan of Care Note [code = 21483-2] Goal Plan of Care Note [code = 41697-2] Goal Plan of Care Note [code = 04693-8] Goal Plan of Care Note [code = 06776-1] Goal Plan of Care Note [code = 62111-2] Goal Plan of Care Note [code = 23359-0] Goal Plan of Care Note [code = 96258-9] Goal Plan of Care Note [code = 05042-3] Goal Plan of Care Note [code = 46535-4] Goal Plan of Care Note [code = 35366-7] Goal Plan of Care Note [code = 00014-1] Goal Plan of Care Note [code = 24398-8] Goal Plan of Care Note [code = 74533-4] Goal Plan of Care Note [code = 96576-9] Goal Plan of Care Note [code = 73580-5] Goal Plan of Care Note [code = 02615-3] Goal Plan of Care Note [code = 83473-8] Goal Plan of Care Note [code = 44376-6] Goal Plan of Care Note [code = 79046-0] Goal Plan of Care Note [code = 45696-4] Goal Plan of Care Note [code = 32210-9] Goal Plan of Care Note [code = 65741-8] Goal Plan of Care Note [code = 79250-5] Goal Plan of Care Note [code = 46387-7] Goal Plan of Care Note [code = 70045-8] Goal Plan of Care Note [code = 32531-9] Goal Plan of Care Note [code = 34522-0] Goal Plan of Care Note [code = 76467-9] Goal Plan of Care Note [code = 43480-0] Goal Plan of Care Note [code = 45325-9] Goal Plan of Care Note [code = 19258-0] Goal Plan of Care Note [code = 05938-5] Goal Plan of Care Note [code = 07844-3] Goal Plan of Care Note [code = 75244-0] Goal Plan of Care Note [code = 47253-1] Goal Plan of Care Note [code = 11593-4] Goal Plan of Care Note [code = 20231-2] Goal Plan of Care Note [code = 87614-4] Goal Plan of Care Note [code = 44458-8] Goal Plan of Care Note [code = 56102-9] Goal Plan of Care Note [code = 62784-6] Goal Plan of Care Note [code = 20695-0] Goal Plan of Care Note [code = 06972-8] Goal Plan of Care Note [code = 30781-9] Goal Plan of Care Note [code = 39740-7] Goal Plan of Care Note [code = 86830-7] Goal Plan of Care Note [code = 95516-4] Goal Plan of Care Note [code = 45960-2] Goal Plan of Care Note [code = 66706-2] Goal Plan of Care Note [code = 08499-1] Goal Plan of Care Note [code = 49990-1] Goal Plan of Care Note [code = 23752-1] Goal Plan of Care Note [code = 75722-0] Goal Plan of Care Note [code = 04415-8] Goal Plan of Care Note [code = 62253-2] Goal Plan of Care Note [code = 70020-0] Goal Plan of Care Note [code = 99000-5] Goal Plan of Care Note [code = 57119-1] Goal Plan of Care Note [code = 60993-0] Goal Plan of Care Note [code = 67825-9] Goal Plan of Care Note [code = 89835-7] Goal Plan of Care Note [code = 22854-6] Goal Plan of Care Note [code = 23105-1] Goal Plan of Care Note [code = 84848-4] Goal Plan of Care Note [code = 10541-7] Goal Plan of Care Note [code = 67996-6] Goal Plan of Care Note [code = 36179-1] Goal Plan of Care Note [code = 00628-8] Goal Plan of Care Note [code = 77877-6] Goal Plan of Care Note [code = 89019-2] Goal Plan of Care Note [code = 02170-1] Goal Plan of Care Note [code = 64368-6] Goal Plan of Care Note [code = 91427-8] Goal Plan of Care Note [code = 15145-9] Goal Plan of Care Note [code = 17104-8] Goal Plan of Care Note [code = 98043-7] Goal Plan of Care Note [code = 37988-8] Goal Plan of Care Note [code = 20310-2] Goal Plan of Care Note [code = 86118-1] Goal Plan of Care Note [code = 77360-1] Goal Plan of Care Note [code = 54979-5] Goal Plan of Care Note [code = 23172-9] Goal Plan of Care Note [code = 31573-8] Goal Plan of Care Note [code = 92949-4] Goal Plan of Care Note [code = 69342-1] Goal Plan of Care Note [code = 83673-7] Goal Plan of Care Note [code = 95759-5] Goal Plan of Care Note [code = 38109-4] Goal Plan of Care Note [code = 58838-4] Goal Plan of Care Note [code = 72260-9] Goal Plan of Care Note [code = 12897-9] Goal Plan of Care Note [code = 28103-5] Goal Plan of Care Note [code = 86185-6] Goal Plan of Care Note [code = 76215-9] Goal Plan of Care Note [code = 82108-4] Goal Plan of Care Note [code = 47432-7] Goal Plan of Care Note [code = 37998-8] Goal Plan of Care Note [code = 00202-0] Goal Plan of Care Note [code = 03963-7] Goal Plan of Care Note [code = 68322-6] Goal Plan of Care Note [code = 71927-6] Goal Plan of Care Note [code = 92178-9] Goal Plan of Care Note [code = 19944-7] Goal Plan of Care Note [code = 38019-1] Goal Plan of Care Note [code = 30323-3] Goal Plan of Care Note [code = 32706-7] Goal Plan of Care Note [code = 40051-6] Goal Plan of Care Note [code = 95099-4] Goal Plan of Care Note [code = 51989-9] Goal Plan of Care Note [code = 61856-0] Goal Plan of Care Note [code = 06263-3] Goal Plan of Care Note [code = 38081-6] Goal Plan of Care Note [code = 46219-1] Goal Plan of Care Note [code = 26908-5] Goal Plan of Care Note [code = 66034-8] Goal Plan of Care Note [code = 10621-5] Goal Plan of Care Note [code = 77392-2] Goal Plan of Care Note [code = 37549-7] Goal Plan of Care Note [code = 19634-3] Goal Plan of Care Note [code = 44821-6] Goal Plan of Care Note [code = 98774-9] Goal Plan of Care Note [code = 36977-2] Goal Plan of Care Note [code = 50803-6] Goal Plan of Care Note [code = 92532-3] Goal Plan of Care Note [code = 04059-3] Goal Plan of Care Note [code = 51487-9] Goal Plan of Care Note [code = 48888-9] Goal Plan of Care Note [code = 74914-2] Goal Plan of Care Note [code = 84126-8] Goal Plan of Care Note [code = 10404-2] Goal Plan of Care Note [code = 42180-1] Goal Plan of Care Note [code = 50259-8] Goal Plan of Care Note [code = 20258-1] Goal Plan of Care Note [code = 06969-0] Goal Plan of Care Note [code = 30565-1] Goal Plan of Care Note [code = 48819-2] Goal Plan of Care Note [code = 83262-6] Goal Plan of Care Note [code = 98906-8] Goal Plan of Care Note [code = 96140-8] Goal Plan of Care Note [code = 24399-3] Goal Plan of Care Note [code = 50163-0] Goal Plan of Care Note [code = 24790-0] Goal Plan of Care Note [code = 86568-3] Goal Plan of Care Note [code = 51086-1] Goal Plan of Care Note [code = 91566-0] Goal Plan of Care Note [code = 65255-7] Goal Plan of Care Note [code = 07475-2] Goal Plan of Care Note [code = 72839-3] Goal Plan of Care Note [code = 85036-9] Goal Plan of Care Note [code = 10495-1] Goal Plan of Care Note [code = 93435-0] Goal Plan of Care Note [code = 57296-7] Goal Plan of Care Note [code = 83464-5] Goal Plan of Care Note [code = 84478-8] Goal Plan of Care Note [code = 62623-7] Goal Plan of Care Note [code = 48741-2] Goal Plan of Care Note [code = 95785-6] Goal Plan of Care Note [code = 62523-3] Goal Plan of Care Note [code = 34581-7] Goal Plan of Care Note [code = 16490-5] Goal Plan of Care Note [code = 56706-6] Goal Plan of Care Note [code = 26534-8] Goal Plan of Care Note [code = 76462-5] Goal Plan of Care Note [code = 88162-7] Goal Plan of Care Note [code = 58171-7] Goal Plan of Care Note [code = 42640-0] Goal Plan of Care Note [code = 37906-4] Goal Plan of Care Note [code = 31629-8] Goal Plan of Care Note [code = 37201-4] Goal Plan of Care Note [code = 21527-7] Goal Plan of Care Note [code = 56869-3] Goal Plan of Care Note [code = 38609-8] Goal Plan of Care Note [code = 98346-2] Goal Plan of Care Note [code = 74500-6] Goal Plan of Care Note [code = 75802-4] Goal Plan of Care Note [code = 57581-7] Goal Plan of Care Note [code = 56205-1] Goal Plan of Care Note [code = 14565-8] Goal Plan of Care Note [code = 18901-3] Goal Plan of Care Note [code = 00442-6] Goal Plan of Care Note [code = 44800-9] Goal Plan of Care Note [code = 67704-6] Goal Plan of Care Note [code = 26031-4] Goal Plan of Care Note [code = 81639-8] Goal Plan of Care Note [code = 38853-3] Goal Plan of Care Note [code = 91505-4] Goal Plan of Care Note [code = 53660-1] Goal Plan of Care Note [code = 91050-6] Goal Plan of Care Note [code = 22894-2] Goal Plan of Care Note [code = 52242-0] Goal Plan of Care Note [code = 90072-9] Goal Plan of Care Note [code = 42320-4] Goal Plan of Care Note [code = 44726-5] Goal Plan of Care Note [code = 61083-9] Goal Plan of Care Note [code = 14036-3] Goal Plan of Care Note [code = 02280-3] Goal Plan of Care Note [code = 10550-8] Goal Plan of Care Note [code = 03020-8] Goal Plan of Care Note [code = 56041-9] Goal Plan of Care Note [code = 14900-6] Goal Plan of Care Note [code = 62010-6] Goal Plan of Care Note [code = 09075-5] Goal Plan of Care Note [code = 60343-3] Goal Plan of Care Note [code = 26525-2] Goal Plan of Care Note [code = 93135-7] Goal Plan of Care Note [code = 19065-8] Goal Plan of Care Note [code = 61202-7] Goal Plan of Care Note [code = 90161-3] Goal Plan of Care Note [code = 54357-3] Goal Plan of Care Note [code = 18221-2] Goal Plan of Care Note [code = 28850-9] Goal Plan of Care Note [code = 06437-8] Goal Plan of Care Note [code = 33118-1] Goal Plan of Care Note [code = 17089-3] Goal Plan of Care Note [code = 71629-8] Goal Plan of Care Note [code = 14465-0] Goal Plan of Care Note [code = 59688-4] Goal Plan of Care Note [code = 32548-6] Goal Plan of Care Note [code = 07090-0] Goal Plan of Care Note [code = 42518-7] Goal Plan of Care Note [code = 40313-4] Goal Plan of Care Note [code = 66055-6] Goal Plan of Care Note [code = 21967-1] Goal Plan of Care Note [code = 38806-1] Goal Plan of Care Note [code = 07763-7] Goal Plan of Care Note [code = 06489-3] Goal Plan of Care Note [code = 60814-7] Goal Plan of Care Note [code = 06588-3] Goal Plan of Care Note [code = 02034-7] Goal Plan of Care Note [code = 15995-0] Goal Plan of Care Note [code = 15996-9] Goal Plan of Care Note [code = 59244-0] Goal Plan of Care Note [code = 77029-5] Goal Plan of Care Note [code = 54529-5] Goal Plan of Care Note [code = 47463-1] Goal Plan of Care Note [code = 43006-9] Goal Plan of Care Note [code = 08058-3] Goal Plan of Care Note [code = 48350-2] Goal Plan of Care Note [code = 27011-5] Goal Plan of Care Note [code = 29808-6] Goal Plan of Care Note [code = 75168-5] Goal Plan of Care Note [code = 29976-7] Goal Plan of Care Note [code = 45344-5] Goal Plan of Care Note [code = 44868-7] Goal Plan of Care Note [code = 93576-6] Goal Plan of Care Note [code = 89278-0] Goal Plan of Care Note [code = 96147-6] Goal Plan of Care Note [code = 49652-9] Goal Plan of Care Note [code = 76525-4] Goal Plan of Care Note [code = 24321-5] Goal Plan of Care Note [code = 34713-9] Goal Plan of Care Note [code = 84185-9] Goal Plan of Care Note [code = 63282-1] Goal Plan of Care Note [code = 56716-7] Goal Plan of Care Note [code = 67556-9] Goal Plan of Care Note [code = 76022-9] Goal Plan of Care Note [code = 97801-7] Goal Plan of Care Note [code = 70194-9] Goal Plan of Care Note [code = 13819-6] Goal Plan of Care Note [code = 82017-8] Goal Plan of Care Note [code = 10525-3] Goal Plan of Care Note [code = 28722-2] Goal Plan of Care Note [code = 01653-4] Goal Plan of Care Note [code = 49378-7] Goal Plan of Care Note [code = 33245-6] Goal Plan of Care Note [code = 78739-8] Goal Plan of Care Note [code = 94808-7] Goal Plan of Care Note [code = 72395-5] Goal Plan of Care Note [code = 98376-2] Goal Plan of Care Note [code = 30550-6] Goal Plan of Care Note [code = 53982-7] Goal Plan of Care Note [code = 09699-9] Goal Plan of Care Note [code = 51117-4] Goal Plan of Care Note [code = 83270-7] Goal Plan of Care Note [code = 67291-6] Goal Plan of Care Note [code = 97635-1] Goal Plan of Care Note [code = 30219-1] Goal Plan of Care Note [code = 81848-4] Goal Plan of Care Note [code = 29703-2] Goal Plan of Care Note [code = 54739-4] Goal Plan of Care Note [code = 49738-2] Goal Plan of Care Note [code = 70679-9] Goal Plan of Care Note [code = 69488-7] Goal Plan of Care Note [code = 40434-0] Goal Plan of Care Note [code = 92843-6] Goal Plan of Care Note [code = 85201-5] Goal Plan of Care Note [code = 38464-2] Goal Plan of Care Note [code = 80793-6] Goal Plan of Care Note [code = 99345-5] Goal Plan of Care Note [code = 62934-0] Goal Plan of Care Note [code = 33987-2] Goal Plan of Care Note [code = 67536-0] Goal Plan of Care Note [code = 74340-9] Goal Plan of Care Note [code = 60553-4] Goal Plan of Care Note [code = 79540-0] Goal Plan of Care Note [code = 45457-4] Goal Plan of Care Note [code = 37459-1] Goal Plan of Care Note [code = 00040-9] Goal Plan of Care Note [code = 36663-2] Goal Plan of Care Note [code = 72333-3] Goal Plan of Care Note [code = 11682-8] Goal Plan of Care Note [code = 21726-7] Goal Plan of Care Note [code = 69037-3] Goal Plan of Care Note [code = 18942-1] Goal Plan of Care Note [code = 24021-3] Goal Plan of Care Note [code = 29726-6] Goal Plan of Care Note [code = 14409-6] Goal Plan of Care Note [code = 92753-3] Goal Plan of Care Note [code = 57363-0] Goal Plan of Care Note [code = 22547-3] Goal Plan of Care Note [code = 91627-8] Goal Plan of Care Note [code = 16100-1] Goal Plan of Care Note [code = 68200-3] Goal Plan of Care Note [code = 47433-5] Goal Plan of Care Note [code = 03930-8] Goal Plan of Care Note [code = 01761-7] Goal Plan of Care Note [code = 15556-3] Goal Plan of Care Note [code = 93018-3] Goal Plan of Care Note [code = 88998-7] Goal Plan of Care Note [code = 97149-0] Goal Plan of Care Note [code = 82629-0] Goal Plan of Care Note [code = 40891-9] Goal Plan of Care Note [code = 95725-5] Goal Plan of Care Note [code = 41550-2] Goal Plan of Care Note [code = 75966-4] Goal Plan of Care Note [code = 59694-5] Goal Plan of Care Note [code = 36984-8] Goal Plan of Care Note [code = 20205-3] Goal Plan of Care Note [code = 35231-1] Goal Plan of Care Note [code = 96223-5] Goal Plan of Care Note [code = 95429-1] Goal Plan of Care Note [code = 82258-4] Goal Plan of Care Note [code = 36369-1] Goal Plan of Care Note [code = 62232-3] Goal Plan of Care Note [code = 11352-8] Goal Plan of Care Note [code = 27741-2] Goal Plan of Care Note [code = 19213-2] Goal Plan of Care Note [code = 02862-3] Goal Plan of Care Note [code = 08964-4] Goal Plan of Care Note [code = 86970-8] Goal Plan of Care Note [code = 95127-4] Goal Plan of Care Note [code = 36694-5] Goal Plan of Care Note [code = 72408-0] Goal Plan of Care Note [code = 83564-9] Goal Plan of Care Note [code = 02947-1] Goal Plan of Care Note [code = 45874-0] Goal Plan of Care Note [code = 91954-9] Goal Plan of Care Note [code = 80874-8] Goal Plan of Care Note [code = 51856-2] Goal Plan of Care Note [code = 64033-8] Goal Plan of Care Note [code = 15415-5] Goal Plan of Care Note [code = 60221-2] Goal Plan of Care Note [code = 89270-6] Goal Plan of Care Note [code = 95875-0] Goal Plan of Care Note [code = 60666-9] Goal Plan of Care Note [code = 84107-7] Goal Plan of Care Note [code = 09535-3] Goal Plan of Care Note [code = 09582-9] Goal Plan of Care Note [code = 05609-1] Goal Plan of Care Note [code = 23059-9] Goal Plan of Care Note [code = 06071-0] Goal Plan of Care Note [code = 45515-0] Goal Plan of Care Note [code = 69132-5] Goal Plan of Care Note [code = 39331-9] Goal Plan of Care Note [code = 62300-4] Goal Plan of Care Note [code = 20469-5] Goal Plan of Care Note [code = 84155-1] Goal Plan of Care Note [code = 00375-6] Goal Plan of Care Note [code = 09510-2] Goal Plan of Care Note [code = 04745-3] Goal Plan of Care Note [code = 85416-2] Goal Plan of Care Note [code = 85741-0] Goal Plan of Care Note [code = 54900-5] Goal Plan of Care Note [code = 06420-8] Goal Plan of Care Note [code = 55315-6] Goal Plan of Care Note [code = 05917-0] Goal Plan of Care Note [code = 45325-7] Goal Plan of Care Note [code = 67652-3] Goal Plan of Care Note [code = 05135-7] Goal Plan of Care Note [code = 46434-3] Goal Plan of Care Note [code = 51103-3] Goal Plan of Care Note [code = 33033-4] Goal Plan of Care Note [code = 97463-6] Goal Plan of Care Note [code = 82471-0] Goal Plan of Care Note [code = 33010-8] Goal Plan of Care Note [code = 54540-1] Goal Plan of Care Note [code = 11060-5] Goal Plan of Care Note [code = 05467-4] Goal Plan of Care Note [code = 09219-2] Goal Plan of Care Note [code = 10313-0] Goal Plan of Care Note [code = 83707-5] Goal Plan of Care Note [code = 33004-0] Goal Plan of Care Note [code = 14886-7] Goal Plan of Care Note [code = 66288-2] Goal Plan of Care Note [code = 91126-1] Goal Plan of Care Note [code = 88251-0] Goal Plan of Care Note [code = 41322-1] Goal Plan of Care Note [code = 43894-1] Goal Plan of Care Note [code = 34615-8] Goal Plan of Care Note [code = 89356-0] Goal Plan of Care Note [code = 76575-5] Goal Plan of Care Note [code = 11385-5] Goal Plan of Care Note [code = 01547-0] Goal Plan of Care Note [code = 14835-5] Goal Plan of Care Note [code = 04002-1] Goal Plan of Care Note [code = 72782-5] Goal Plan of Care Note [code = 16300-7] Goal Plan of Care Note [code = 90266-1] Goal Plan of Care Note [code = 88681-7] Goal Plan of Care Note [code = 40576-8] Goal Plan of Care Note [code = 02121-8] Goal Plan of Care Note [code = 56526-2] Goal Plan of Care Note [code = 48723-5] Goal Plan of Care Note [code = 09710-3] Goal Plan of Care Note [code = 83632-8] Goal Plan of Care Note [code = 65375-8] Goal Plan of Care Note [code = 09109-9] Goal Plan of Care Note [code = 09150-1] Goal Plan of Care Note [code = 36803-6] Goal Plan of Care Note [code = 39527-6] Goal Plan of Care Note [code = 47670-2] Goal Plan of Care Note [code = 72371-1] Goal Plan of Care Note [code = 75906-3] Goal Plan of Care Note [code = 02709-9] Goal Plan of Care Note [code = 41723-6] Goal Plan of Care Note [code = 46536-5] Goal Plan of Care Note [code = 38145-6] Goal Plan of Care Note [code = 76116-3] Goal Plan of Care Note [code = 79761-3] Goal Plan of Care Note [code = 63502-5] Goal Plan of Care Note [code = 17159-0] Goal Plan of Care Note [code = 75569-2] Goal Plan of Care Note [code = 21031-2] Goal Plan of Care Note [code = 73676-9] Goal Plan of Care Note [code = 78172-7] Goal Plan of Care Note [code = 98126-1] Goal Plan of Care Note [code = 21956-7] Goal Plan of Care Note [code = 86803-7] Goal Plan of Care Note [code = 39120-5] Goal Plan of Care Note [code = 64598-9] Goal Plan of Care Note [code = 15708-5] Goal Plan of Care Note [code = 04409-0] Goal Plan of Care Note [code = 99835-2] Goal Plan of Care Note [code = 29187-7] Goal Plan of Care Note [code = 01644-9] Goal Plan of Care Note [code = 82827-8] Goal Plan of Care Note [code = 45053-6] Goal Plan of Care Note [code = 08934-1] Goal Plan of Care Note [code = 03935-1] Goal Plan of Care Note [code = 39301-7] Goal Plan of Care Note [code = 78123-9] Goal Plan of Care Note [code = 53222-2] Goal Plan of Care Note [code = 74343-6] Goal Plan of Care Note [code = 20154-0] Goal Plan of Care Note [code = 08253-0] Goal Plan of Care Note [code = 20398-8] Goal Plan of Care Note [code = 66093-6] Goal Plan of Care Note [code = 30419-1] Goal Plan of Care Note [code = 15459-4] Goal Plan of Care Note [code = 20325-4] Goal Plan of Care Note [code = 07782-7] Goal Plan of Care Note [code = 04696-5] Encounters Start End Encounter Admission Attending Care Care Encounter Source Date/Time Date/Time Type Type Clinicians Facility Department ID 2022-03-04 2022-03-04 Outpatient MAURY MENDIOLA [id number] 022 Thai 09:40:39 09:40:39 1204 F Robert 2022-03-04 2022-03-04 Outpatient [id number]- [id number] 3f 94026s-1 00:00:00 00:00:00 Visit 5y66-52v6 v91-41f4-5 -5tn7-9ds fc3-7df7dd 8eckl8991 dn1774 2022-03-02 2022-03-02 Outpatient MAURY MENDIOLA 30653-6 022 Thai 08:08:33 08:08:33 1202 F Robert 2022-02-27 2022-02-27 Outpatient 2u8m0830- [id number] 9b 7l2587-9 00:00:00 00:00:00 Visit 5955-473f 955-473f-b -f2a8-ys4 5f3-yu27xd 8oc2r1222 2k2799 2022-02-26 2022-02-26 Outpatient SFA SFA 45752-1 022 Thai 14:53:39 14:53:39 1128 F Robert 2022-02-26 2022-02-26 Outpatient 1773vaa4- [id number] 11 39vhq4-5 00:00:00 00:00:00 Visit 753b-4256 53b-4256-8 -3us9-j01 aa5-s1368k 37y1444fb 5360ba 2022-02-24 2022-02-24 Emergency X AUFDERHEIDE [facility] [id number] Univers 04:55:00 06:12:00 , DOLORES gerardo of [facility] 2022-02-24 2022-02-24 Emergency Aufderheide [facility] 1.2.840.114 [id number] Univers 04:55:00 06:12:00 , Dolores YAN 350.1.13.10 i ty of [place] PRIETO 4.2.7.2.686 [facility] [phone] [address] 2022-02-20 2022-02-20 Outpatient SFA SFA 40431-3 022 Thai 11:12:21 11:12:21 1122 F Robert 2022-02-20 2022-02-20 Outpatient x05573g5- [id number] a8 8064x4-z 00:00:00 00:00:00 Visit zf91-0nj6 f66-7kk1-9 -857d-6cd 57d-5or464 254n9ot4z a4ee5c 2022-02-15 2022-02-15 Outpatient 2d1m08gx- [id number] 3d 6n32iq-0 00:00:00 00:00:00 Visit 2fcc-405f fcc-405f-9 -28m8-532 9k0-54199c 31w139206 831023 5249-11-16 2022-02-14 Outpatient SFA SFA 62269-1 022 Thai 14:09:23 14:09:23 1116 F Robert 2022-02-14 2022-02-14 Outpatient 0253w522- [id number] 29 62o798-b 00:00:00 00:00:00 Visit i31d-29ws 69c-48ba-8 -8x04-86n f10-05x763 4344kzr8h 5cde0b 2022-02-06 2022-02-06 Outpatient [facility] 04711-4 Thai 10:02:54 10:02:54 1108 F Robert 2022-02-06 2022-02-06 Outpatient 2887s500- [id number] 26 81q749-8 00:00:00 00:00:00 Visit 6q69-0v19 p34-9p66-k -s7c9-86l 2m9-43r5sg 9gdv7v0lj c7a7ab 2022-01-15 2022-01-15 Emergency X [facility] ERT [id number] Univers 04:57:00 06:53:00 RUSTAM gerardo [facility] 2022-01-15 2022-01-15 Emergency [facility] [id number] Univers 04:57:00 06:53:00 [facility] 4.2[facility]2.686 [facility] [id number] [address] 2022-01-02 2022-01-02 Outpatient [facility] SFA 45650-0 Thai 09:09:54 09:09:54 1004 F Robert 2022-01-02 2022-01-02 Outpatient 2i2x1pae- [id number] 2f 2g3uxv-8 00:00:00 00:00:00 Visit 784c-4105 84c-4105-8 -7m57-7zu w82-8zop54 k73e0q385 t7m774 2021-12-26 2021-12-26 Outpatient 86kt4f1x- [id number] 70 tj7f4n-4 00:00:00 00:00:00 Visit 3fda-47a9 fda-47a9-b -y091-41h 352-41ee21 r355692if 9444ab 2021-11-20 2021-11-20 GWEN Amanda 1.2.840.114 [id number] Univers 00:00:00 00:00:00 (Out) Humberto MILLS 350.1.13.10 it [facility] 4.2.7.2.686 Renzo as [id number] [facility] [address] 2021-10-30 2021-10-30 Outpatient b2521im7- [id number] c7 494hj7-1 00:00:00 00:00:00 Visit 9nu8-40rm ad8-42bd-9 -9211-800 211-800c65 u8524ats8 14fbe3 2021-10-03 2021-10-03 Outpatient 7p0b3611- [id number] 5d 1s8277-9 00:00:00 00:00:00 Visit 0049-42e3 049-42e3-8 -8699-e24 699-e24b68 b0677795a 64563w 2021-08-09 2021-08-09 Orders Doctor GWEN 1.2.840.114 [id number] Univers 00:00:00 00:00:00 Only Unassigned, LINA 350.1.13.10 ity of [place] [facility] 4.2.7.2.686 Renzo as [id number] [facility] [address] 2019-05-01 2019-05-03 Outside nullFlavo [facility] [id number] Memoria 19:12:13 05:59:59 Medical r Gastroenter 00 l Records ology Sugar Herm [facility] 2019-05-01 2019-05-03 Outside nullFlavo [facility] [id number] Memoria 19:12:13 05:59:59 Medical r Gastroenter 00 l Records ology Sugar Herm [facility] 2019-05-01 2019-05-02 Outpatient [facility] [id number] 13:12:13 23:59:59 2019-04-24 2019-04-25 Outpatient nullFlavo [facility] [id number] Memoria 17:00:00 05:59:59 r Gastroenter 00 l ology Sugar Herm [facility] 2019-04-24 2019-04-25 Outpatient nullFlavo [facility] [id number] Memoria 17:00:00 05:59:59 r Gastroenter 00 l ology Sugar Herm [facility] 2019-04-24 2019-04-24 Outpatient Alida, [facility] [id number] 11:00:00 23:59:59 Nadim Torey 2019-04-24 2019-04-[address] [facility] [id number] Memoria 11:00:00 11:00:00 00 talon Peñaloza 2019-04-03 2019-04-03 Outpatient Lokesh DAO [facility] [id number] [employer] 04:46:22 18:43:00 SKY gerardo [facility] Results Test Description Test Time Test Comments Results Result Comments Source TROPONIN I 2022-02-24 12:00:06 Test Item Value Reference Range Interpretation Comme nts TROPONIN I (test code = 0.009 ng/mL See_Comment [Au tomated message] The [id number]) system which ge nerated this result tra nsmitted reference range : <=0.034. The reference r emilee was not used to int erpret this result as normal/abnormal . OFELIA (test code = OFELIA) Reference (Normal) Range (defined by the 99th percentile reference limit): <= 0.034 ng/mL Note: Cardiac troponin begins to rise 3-4 hours after the onset of ischemia. Repeat in 4-6 hours if the sample was drawn within 3-4 hours of the onset of the symptom and found normal. Diagnosis of myocardial injury is made with acute changes in cTn concentrations with at least one serial sample above the 99th percentile upper reference limit (URL), taken together with the patient's clinical presentation. Biotin has been reported to cause a negative bias, interpret results relative to patient's use of biotin. Lab Interpretation Normal (test code = 06185-3) [facility]99[facility]-24 11:48:40 Test Item Value Reference Range Interpretation Comments NA (test code = 138 mmol/L 135-145 [id number]) K (test code = 4.9 mmol/L 3.5-5.0 9876988755) CL (test code = 104 mmol/L 98-108 1716772500) CO2 TOTAL (test code = 24 mmol/L 23-31 9319934837) AGAP (test code = 2-16 8614423425) BUN (test code = 15 mg/dL 7-23 1840173207) GLUCOSE (test code = 106 mg/dL 70-110 6968858218) CREATININE (test code = 0.75 mg/dL 0.50-1.04 7321927829) TOTAL BILI (test code = 0.8 mg/dL 0.1-1.8 8412645376) CALCIUM (test code = 10.7 mg/dL 8.6-10.6 H 6124786710) T PROTEIN (test code = 7.7 g/dL 6.3-8.2 1842598797) ALBUMIN (test code = 4.8 g/dL 3.5-5.0 1599497484) ALK PHOS (test code = 100 U/L 34-122 2679484495) ALTv (test code = 39 U/L 5-35 H 1742-6) AST(SGOT) (test code = 35 U/L 13-40 7821573249) eGFR (test code = mL/min/1.73m2 9131051100) OFELIA (test code = OFELIA) Association of Glomerular Filtration Rate (GFR) and Staging of Kidney Disease* + --+ --+ ------+| GFR (mL/min/1.73 m2) ?| With Kidney Damage ?| ?Without Kidney Damage+ --------+ --------+ +| ?>90 ?| ?Stage one ?| ? Normal ?+ ---+ ---+ -------+| ?60-89 ?| ?Stage two ?| ? Decreased GFR ? + --+ --+ ------+| ?30-59 ?| ?Stage three ?| ? Stage three ? + --+ --+ ------+| ?15-29 ?| ?Stage four ? | ? Stage four ?+ ---+ ---+ -------+| ?<15 (or dialysis) ? ?| ?Stage five ? | ? Stage five ?+ ---+ ---+ -------+ *Each stage assumes the associated GFR level has been in effect for at least three months. ?Stages 1 to 5, with or without kidney disease, indicate chronic kidney disease. Notes: Determination of stages one and two (with eGFR >59mL/min/1.73 m2) requires estimation of kidney damage for at least three months as defined by structural or functional abnormalities of the kidney, manifested by either:Pathological abnormalities or Markers of kidney damage (including abnormalities in the composition of the blood or urine or abnormalities in imaging tests). Lab Interpretation Abnormal (test code = 71854-8) [facility] [id number] 11:48:25 Test Item Value Reference Range Interpretation Comments LIPASE (test code = 8719369797) 41 U/L 0-220 Lab Interpretation (test code = Normal 24654-3) [facility] 11:43:22 Test Item Value Reference Range Interpretation Comments APTT Patient (test See_Comment [Automat ed code = 3173-2) message] The system which generated this result transmitted reference range : 23 - 38 Seconds . The reference range was not used to interpr et this result as normal/abnormal . OFELIA (test code = FOELIA) The [facility] patient population mean normal value for aPTT is 30 seconds. Lab Interpretation Normal (test code = 83624-2) [facility] / [id number] 11:41:21 Test Item Value Reference Range Interpretation Comments PROTIME PATIENT (test See_Comment [Auto mated message] code = 5964-2) The system wh ich generated this result transmitted ref erence range: 12.0 - 1 4.7 Seconds. The re ference range was not u sed to interpret this result as normal/abnor mal. INR (test code = 6301-6) Nor mal INR <1.1; Warfarin Therap eutic range 2.0 to 3. 0 or 2.5 to 3.5, dep ending upon the indica tions. Lab Interpretation (test Normal code = 82922-2) [facility] WITH [id number] 11:18:58 Test Item Value Reference Range Interpretation Comments WBC (test code = See_Comment [Automated 3990-2) message] The sy stem which generated this result transmitted reference range : 4.30 - 11.10 10*3/?L. The reference range was not used to interpret this result as normal/abnormal . RBC (test code = See_Comment [Automated 599-8) message] The sy stem which generated this result transmitted reference range : 3.93 - 5.25 10*6/?L. The reference range was not used to interpret this result as normal/abnormal . HGB (test code = 15.6 g/dL 11.6-15.0 H 718-7) HCT (test code = 46.3 % 35.7-45.2 H 4544-3) MCV (test code = 89.9 fL 80.6-95.5 787-2) MCH (test code = 30.3 pg 25.9-32.8 785-6) MCHC (test code = 33.7 g/dL 31.6-35.1 786-4) RDW-SD (test code = 45.1 fL 39.0-49.9 02995-5) RDW-CV (test code = 13.7 % 12.0-15.5 788-0) PLT (test code = See_Comment [Automated 777-3) message] The sy stem which generated this result transmitted reference range : 166 - 358 10*3/ ?L. The reference r emilee was not used to interpret this result as normal/abnormal . MPV (test code = 9.6 fL 9.5-12.9 05204-3) NRBC/100 WBC (test See_Comment [Automat ed code = 1876519128) message] The system which generated this result transmitted reference range : 0.0 - 10.0 /100 WBCs. The refer ence range was not u sed to interpret th is result as normal/abnormal . NRBC x10^3 (test code See_Comment [Auto mated = 8528422326) message] The s ystem which generated this result transmitted reference range : 10*3/?L. The reference range was not used to interpret this result as normal/abnormal . GRAN MAT (NEUT) % 76.3 % (test code = 770-8) IMM GRAN % (test code 0.40 % = 5011415180) LYMPH % (test code = 12.8 % 736-9) MONO % (test code = 9.2 % 5905-5) EOS % (test code = 0.7 % 713-8) BASO % (test code = 0.6 % 706-2) GRAN MAT x10^3(ANC) 5.48 10*3/uL 1.88-7.09 (test code = 1936418176) IMM GRAN x10^3 (test 0.03 10*3/uL 0.00-0.06 code = 7325970362) LYMPH x10^3 (test code 0.92 10*3/uL 1.32-3.29 L = 731-0) MONO x10^3 (test code 0.66 10*3/uL 0.33-0.92 = 742-7) EOS x10^3 (test code = 0.05 10*3/uL 0.03-0.39 711-2) BASO x10^3 (test code 0.04 10*3/uL 0.01-0.07 = 704-7) Lab Interpretation Abnormal (test code = 27460-5) [facility], THINPREP, [id number] 00:00:00 Test Item Value Reference Range Interpretation Comments SOURCE: (test code = 8001) Cervical/Endocervic al SLIDES: (test code = 8011) 1 LMP: (test code = 8021) SEE NOTE SPECIMEN ADEQUACY: (test (NOTE) code = 15815) INTERPRETATION: (test code LSIL/EPITH. = 08739) ABNORMALITY; SEE BELOW OTHER COMMENTS: (test code (NOTE) = 8081) ORDER TAKERS SUPERVISOR: (test Nazia Penah code = 8101) SwatiCT(ASCP)[facility] PATHOLOGIST INTERPRETATION Carmen Andrade BY: (test code = 8122) M.D. LOCATION: (test code = (NOTE) 57034) CPT: (test code = 8140) (NOTE) PAP TEST, THINPREP, [id number] 00:00:00 Test Item Value Reference Range Interpretation Comments SOURCE: (test code = 8001) Cervical/Endocervic al SLIDES: (test code = 8011) 1 LMP: (test code = 8021) SEE NOTE SPECIMEN ADEQUACY: (test (NOTE) code = 63399) INTERPRETATION: (test code LSIL/EPITH. = 06344) ABNORMALITY; SEE BELOW OTHER COMMENTS: (test code (NOTE) = 8081) ORDER TAKERS SUPERVISOR: (test Nazia Gibson code = 8101) LongoriaCT(ASCP)[facility] PATHOLOGIST INTERPRETATION Carmen Andrade BY: (test code = 8122) M.DBecca LOCATION: (test code = (NOTE) 25272) CPT: (test code = 8140) (NOTE) PAP TEST, THINPREP, [id number] 00:00:00 Test Item Value Reference Range Interpretation Comments SOURCE: (test code = 8001) Cervical/Endocervic al SLIDES: (test code = 8011) 1 LMP: (test code = 8021) SEE NOTE SPECIMEN ADEQUACY: (test (NOTE) code = 14484) INTERPRETATION: (test code LSIL/EPITH. = 70291) ABNORMALITY; SEE BELOW OTHER COMMENTS: (test code (NOTE) = 8081) ORDER TAKERS SUPERVISOR: (test Nazia Gibson code = 8101) Longoria,CT(ASCP)[facility] PATHOLOGIST INTERPRETATION Carmen Andrade BY: (test code = 8122) M.D. LOCATION: (test code = (NOTE) 33932) CPT: (test code = 8140) (NOTE) PAP TEST, THINPREP, [id number] 00:00:00 Test Item Value Reference Range Interpretation Comments SOURCE: (test code = 8001) Cervical/Endocervic al SLIDES: (test code = 8011) 1 LMP: (test code = 8021) SEE NOTE SPECIMEN ADEQUACY: (test (NOTE) code = 74512) INTERPRETATION: (test code LSIL/EPITH. = 44152) ABNORMALITY; SEE BELOW OTHER COMMENTS: (test code (NOTE) = 8081) ORDER TAKERS SUPERVISOR: (test Nazia Gibson code = 8101) Longoria,CT(ASCP)[facility] PATHOLOGIST INTERPRETATION Carmen Andrade BY: (test code = 8122) M.D. LOCATION: (test code = (NOTE) 13457) CPT: (test code = 8140) (NOTE) PAP TEST, THINPREP, [id number] 00:00:00 Test Item Value Reference Range Interpretation Comments SOURCE: (test code = 8001) Cervical/Endocervic al SLIDES: (test code = 8011) 1 LMP: (test code = 8021) SEE NOTE SPECIMEN ADEQUACY: (test (NOTE) code = 42678) INTERPRETATION: (test code LSIL/EPITH. = 80587) ABNORMALITY; SEE BELOW OTHER COMMENTS: (test code (NOTE) = 8081) ORDER TAKERS SUPERVISOR: (test Nazia Gibson code = 8101) Longoria,CT(ASCP)[facility] PATHOLOGIST INTERPRETATION Carmen Andrade BY: (test code = 8122) M.D. LOCATION: (test code = (NOTE) 41905) CPT: (test code = 8140) (NOTE) PAP TEST, THINPREP, [id number] 00:00:00 Test Item Value Reference Range Interpretation Comments SOURCE: (test code = 8001) Cervical/Endocervic al SLIDES: (test code = 8011) 1 LMP: (test code = 8021) SEE NOTE SPECIMEN ADEQUACY: (test (NOTE) code = 92982) INTERPRETATION: (test code LSIL/EPITH. = 80391) ABNORMALITY; SEE BELOW OTHER COMMENTS: (test code (NOTE) = 8081) ORDER TAKERS SUPERVISOR: (test Nazia Gibson code = 8101) Longoria,CT(ASCP)[facility] PATHOLOGIST INTERPRETATION Carmen Listrom, BY: (test code = 8122) M.D. LOCATION: (test code = (NOTE) 59779) CPT: (test code = 8140) (NOTE) PAP TEST, THINPREP, [id number] 00:00:00 Test Item Value Reference Range Interpretation Comments SOURCE: (test code = 8001) Cervical/Endocervic al SLIDES: (test code = 8011) 1 LMP: (test code = 8021) SEE NOTE SPECIMEN ADEQUACY: (test (NOTE) code = 66213) INTERPRETATION: (test code LSIL/EPITH. = 09909) ABNORMALITY; SEE BELOW OTHER COMMENTS: (test code (NOTE) = 8081) ORDER TAKERS SUPERVISOR: (test Nazia Gibson code = 8101) Longoria,CT(ASCP)[facility] PATHOLOGIST INTERPRETATION Carmen Listrom, BY: (test code = 8122) M.D. LOCATION: (test code = (NOTE) 52587) CPT: (test code = 8140) (NOTE) PAP TEST, THINPREP, [id number] 00:00:00 Test Item Value Reference Range Interpretation Comments SOURCE: (test code = 8001) Cervical/Endocervic al SLIDES: (test code = 8011) 1 LMP: (test code = 8021) SEE NOTE SPECIMEN ADEQUACY: (test (NOTE) code = 46046) INTERPRETATION: (test code LSIL/EPITH. = 00120) ABNORMALITY; SEE BELOW OTHER COMMENTS: (test code (NOTE) = 8081) ORDER TAKERS SUPERVISOR: (test Nazia Gibson code = 8101) Longoria,CT(ASCP)[facility] PATHOLOGIST INTERPRETATION Carmen Listrom, BY: (test code = 8122) MLeo LOCATION: (test code = (NOTE) 62099) CPT: (test code = 8140) (NOTE) PAP TEST, THINPREP, [id number] 00:00:00 Test Item Value Reference Range Interpretation Comments SOURCE: (test code = 8001) Cervical/Endocervic al SLIDES: (test code = 8011) 1 LMP: (test code = 8021) SEE NOTE SPECIMEN ADEQUACY: (test (NOTE) code = 68751) INTERPRETATION: (test code LSIL/EPITH. = 73114) ABNORMALITY; SEE BELOW OTHER COMMENTS: (test code (NOTE) = 8081) ORDER TAKERS SUPERVISOR: (test Nazia [facility] code = 8101) LIGIA Longoria(ASCP)[facility] PATHOLOGIST INTERPRETATION Carmen Andrade BY: (test code = 8122) MLeo LOCATION: (test code = (NOTE) 62842) CPT: (test code = 8140) (NOTE) PAP TEST, THINPREP, [id number] 00:00:00 Test Item Value Reference Range Interpretation Comments SOURCE: (test code = 8001) Cervical/Endocervic al SLIDES: (test code = 8011) 1 LMP: (test code = 8021) SEE NOTE SPECIMEN ADEQUACY: (test (NOTE) code = 89574) INTERPRETATION: (test code LSIL/EPITH. = 45777) ABNORMALITY; SEE BELOW OTHER COMMENTS: (test code (NOTE) = 8081) ORDER TAKERS SUPERVISOR: (test Naziadeborah Penah code = 8101) SwatiCT(ASCP)[facility] PATHOLOGIST INTERPRETATION Carmen Andrade BY: (test code = 8122) MLeo LOCATION: (test code = (NOTE) 71233) CPT: (test code = 8140) (NOTE) PAP TEST, THINPREP, [id number] 00:00:00 Test Item Value Reference Range Interpretation Comments SOURCE: (test code = 8001) Cervical/Endocervic al SLIDES: (test code = 8011) 1 LMP: (test code = 8021) SEE NOTE SPECIMEN ADEQUACY: (test (NOTE) code = 93526) INTERPRETATION: (test code LSIL/EPITH. = 99483) ABNORMALITY; SEE BELOW OTHER COMMENTS: (test code (NOTE) = 8081) ORDER TAKERS SUPERVISOR: (test Nazia Gibson code = 8101) Longoria,CT(ASCP)[facility] PATHOLOGIST INTERPRETATION Carmen Andrade BY: (test code = 8122) MBeccaDBecca LOCATION: (test code = (NOTE) 11460) CPT: (test code = 8140) (NOTE) PAP TEST, THINPREP, [id number] 00:00:00 Test Item Value Reference Range Interpretation Comments SOURCE: (test code = 8001) Cervical/Endocervic al SLIDES: (test code = 8011) 1 LMP: (test code = 8021) SEE NOTE SPECIMEN ADEQUACY: (test (NOTE) code = 27739) INTERPRETATION: (test code LSIL/EPITH. = 67100) ABNORMALITY; SEE BELOW OTHER COMMENTS: (test code (NOTE) = 8081) ORDER TAKERS SUPERVISOR: (test [facility] code = 8101) Longoria,CT(ASCP)[facility] PATHOLOGIST INTERPRETATION Carmen Andrade BY: (test code = 8122) MLeo LOCATION: (test code = (NOTE) 60198) CPT: (test code = 8140) (NOTE) HPV HIGH RISK WITH GENOTYPE, [id number] 00:00:00 Test Item Value Reference Range Interpretation Comments HPV HIGH RISK INTERP (test code = POSITIVE 97108) HPV 16 (test code = 08775) NEGATIVE HPV 18 (test code = 28774) NEGATIVE HPV, HR, OTHER GENOTYPES (test code POSITIVE = 25356) HPV HIGH RISK WITH GENOTYPE, [id number] 00:00:00 Test Item Value Reference Range Interpretation Comments HPV HIGH RISK INTERP (test code = POSITIVE 99539) HPV 16 (test code = 11069) NEGATIVE HPV 18 (test code = 11957) NEGATIVE HPV, HR, OTHER GENOTYPES (test code POSITIVE = 41688) HPV HIGH RISK WITH GENOTYPE, [id number] 00:00:00 Test Item Value Reference Range Interpretation Comments HPV HIGH RISK INTERP (test code = POSITIVE 04377) HPV 16 (test code = 76340) NEGATIVE HPV 18 (test code = 33162) NEGATIVE HPV, HR, OTHER GENOTYPES (test code POSITIVE = 28639) HPV HIGH RISK WITH GENOTYPE, [id number] 00:00:00 Test Item Value Reference Range Interpretation Comments HPV HIGH RISK INTERP (test code = POSITIVE 39003) HPV 16 (test code = 14931) NEGATIVE HPV 18 (test code = 83645) NEGATIVE HPV, HR, OTHER GENOTYPES (test code POSITIVE = 72901) HPV HIGH RISK WITH GENOTYPE, [id number] 00:00:00 Test Item Value Reference Range Interpretation Comments HPV HIGH RISK INTERP (test code = POSITIVE 26982) HPV 16 (test code = 80205) NEGATIVE HPV 18 (test code = 94015) NEGATIVE HPV, HR, OTHER GENOTYPES (test code POSITIVE = 18739) HPV HIGH RISK WITH GENOTYPE, [id number] 00:00:00 Test Item Value Reference Range Interpretation Comments HPV HIGH RISK INTERP (test code = POSITIVE 68082) HPV 16 (test code = 22996) NEGATIVE HPV 18 (test code = 13465) NEGATIVE HPV, HR, OTHER GENOTYPES (test code POSITIVE = 41232) HPV HIGH RISK WITH GENOTYPE, [id number] 00:00:00 Test Item Value Reference Range Interpretation Comments HPV HIGH RISK INTERP (test code = POSITIVE 61310) HPV 16 (test code = 10939) NEGATIVE HPV 18 (test code = 59663) NEGATIVE HPV, HR, OTHER GENOTYPES (test code POSITIVE = 62292) HPV HIGH RISK WITH GENOTYPE, [id number] 00:00:00 Test Item Value Reference Range Interpretation Comments HPV HIGH RISK INTERP (test code = POSITIVE 71079) HPV 16 (test code = 30288) NEGATIVE HPV 18 (test code = 43730) NEGATIVE HPV, HR, OTHER GENOTYPES (test code POSITIVE = 96296) HPV HIGH RISK WITH GENOTYPE, [id number] 00:00:00 Test Item Value Reference Range Interpretation Comments HPV HIGH RISK INTERP (test code = POSITIVE 71941) HPV 16 (test code = 93307) NEGATIVE HPV 18 (test code = 41969) NEGATIVE HPV, HR, OTHER GENOTYPES (test code POSITIVE = 39068) HPV HIGH RISK WITH GENOTYPE, [id number] 00:00:00 Test Item Value Reference Range Interpretation Comments HPV HIGH RISK INTERP (test code = POSITIVE 43796) HPV 16 (test code = 02600) NEGATIVE HPV 18 (test code = 26180) NEGATIVE HPV, HR, OTHER GENOTYPES (test code POSITIVE = 49502) HPV HIGH RISK WITH GENOTYPE, [id number] 00:00:00 Test Item Value Reference Range Interpretation Comments HPV HIGH RISK INTERP (test code = POSITIVE 01952) HPV 16 (test code = 15012) NEGATIVE HPV 18 (test code = 87923) NEGATIVE HPV, HR, OTHER GENOTYPES (test code POSITIVE = 74735) HPV HIGH RISK WITH GENOTYPE, [id number] 00:00:00 Test Item Value Reference Range Interpretation Comments HPV HIGH RISK INTERP (test code = POSITIVE 42620) HPV 16 (test code = 82854) NEGATIVE HPV 18 (test code = 49273) NEGATIVE HPV, HR, OTHER GENOTYPES (test code POSITIVE = 15075) N-TERMINAL [id number] 11:32:35 Test Item Value Reference Range Interpretation Comments NT-proBNP (test code 422 pg/mL See_Comment H [Autom ated = 2826149553) message] The system which generated this result transmitted reference range : <=125. The reference range was not used to interpret this result as normal/abnormal . OFELIA (test code = OFELIA) Biotin has been reported to cause a negative bias, interpret results relative to patient's use of biotin. Lab Interpretation Abnormal (test code = 80232-3) [facility] [id number] 10:51:52 Test Item Value Reference Interpretation Comments Range TROPONIN I (test 0.011 ng/mL See_Comment [Automated code = 3083169530) message] The system which generated this result transmitted reference range : <=0.034. The reference range was not used to interpret this result as normal/abnormal . OFELIA (test code = Reference (Normal) OFELIA) Range (defined by the 99th percentile reference limit): <= 0.034 ng/mL Note: Cardiac troponin begins to rise 3-4 hours after the onset of ischemia. Repeat in 4-6 hours if the sample was drawn within 3-4 hours of the onset of the symptom and found normal. Diagnosis of myocardial injury is made with acute changes in cTn concentrations with at least one serial sample above the 99th percentile upper reference limit (URL), taken together with the patient's clinical presentation. Biotin has been reported to cause a negative bias, interpret results relative to patient's use of biotin. Lab Interpretation Normal (test code = 63494-0) [facility]. METABOLIC PANEL ([id number])2022-01-15 10:40:31 Test Item Value Reference Range Interpretation Comments NA (test code = 140 mmol/L 135-145 1066112097) K (test code = 3.7 mmol/L 3.5-5 3744480584) CL (test code = 107 mmol/L 98-108 1785868900) CO2 TOTAL (test code = 23 mmol/L 23-31 3872934041) AGAP (test code = 2-16 6058119168) BUN (test code = 11 mg/dL 7-23 4550336976) GLUCOSE (test code = 146 mg/dL 70-110 H 4728174682) CREATININE (test code = 0.65 mg/dL 0.5-1.04 8063335844) TOTAL BILI (test code = 0.7 mg/dL 0.1-1.4 5080673834) CALCIUM (test code = 10.6 mg/dL 8.6-10.6 8763340612) T PROTEIN (test code = 6.5 g/dL 6.3-8.2 4982782642) ALBUMIN (test code = 4.2 g/dL 3.5-5 1618202275) ALK PHOS (test code = 95 U/L 34-122 4752118704) ALTv (test code = 51 U/L 5-35 H 1742-6) AST(SGOT) (test code = 34 U/L 13-40 2517646598) eGFR (test code = mL/min/1.73m2 9896849945) OFELIA (test code = OFELIA) Association of Glomerular Filtration Rate (GFR) and Staging of Kidney Disease* + --+ --+ ------+| GFR (mL/min/1.73 m2) ?| With Kidney Damage ?| ?Without Kidney Damage+ --------+ --------+ +| ?>90 ?| ?Stage one ?| ? Normal ?+ ---+ ---+ -------+| ?60-89 ?| ?Stage two ?| ? Decreased GFR ? + --+ --+ ------+| ?30-59 ?| ?Stage three ?| ? Stage three ? + --+ --+ ------+| ?15-29 ?| ?Stage four ? | ? Stage four ?+ ---+ ---+ -------+| ?<15 (or dialysis) ? ?| ?Stage five ? | ? Stage five ?+ ---+ ---+ -------+ *Each stage assumes the associated GFR level has been in effect for at least three months. ?Stages 1 to 5, with or without kidney disease, indicate chronic kidney disease. Notes: Determination of stages one and two (with eGFR >59mL/min/1.73 m2) requires estimation of kidney damage for at least three months as defined by structural or functional abnormalities of the kidney, manifested by either:Pathological abnormalities or Markers of kidney damage (including abnormalities in the composition of the blood or urine or abnormalities in imaging tests). Lab Interpretation Abnormal (test code = 82615-1) [facility] [id number] 10:39:50 Test Item Value Reference Range Interpretation Comments LIPASE (test code = 7404269785) 35 U/L 0-220 Lab Interpretation (test code = Normal 19766-1) [facility] 10:32:27 Test Item Value Reference Range Interpretation Comments APTT Patient (test See_Comment [Automat ed code = 3173-2) message] The system which generated this result transmitted reference range : 23 - 38 Seconds . The reference range was not used to interpr et this result as normal/abnormal . OFELIA (test code = OFELIA) The [facility] patient population mean normal value for aPTT is 30 seconds. Lab Interpretation Normal (test code = 18529-5) [facility] / [id number] 10:30:30 Test Item Value Reference Range Interpretation Comments PROTIME PATIENT (test See_Comment [Auto mated message] code = 5964-2) The system wh ich generated this result transmitted ref erence range: 12.0 - 1 4.7 Seconds. The re ference range was not u sed to interpret this result as normal/abnor mal. INR (test code = 6301-6) Nor mal INR <1.1; Warfarin Therap eutic range 2.0 to 3. 0 or 2.5 to 3.5, dep ending upon the indica tions. Lab Interpretation (test Normal code = 24032-5) [facility] [id number] 10:12:46 Test Item Value Reference Range Interpretation Comments WBC (test code = See_Comment [Automated message] 6667-2) The system [employer] generated this result transmitted ref erence range: 4.30 - 1 1.10 10*3/?L. The re ference range was not u sed to interpret this result as normal/abnor mal. RBC (test code = See_Comment [Automated message] 099-8) The system [employer] generated this result transmitted ref erence range: 3.93 - 5 .25 10*6/?L. The re ference range was not u sed to interpret this result as normal/abnor mal. HGB (test code = 14.3 g/dL 11.6-15 718-7) HCT (test code = 42.5 % 35.7-45.2 4544-3) MCV (test code = 89.9 fL 80.6-95.5 787-2) MCH (test code = 30.2 pg 25.9-32.8 785-6) MCHC (test code = 33.6 g/dL 31.6-35.1 786-4) RDW-SD (test code 42.5 fL 39-49.9 = 41852-0) RDW-CV (test code 12.9 % 12-15.5 = 788-0) PLT (test code = See_Comment [Automated message] 767-3) The system [employer] generated this result transmitted ref erence range: 166 - 35 8 10*3/?L. The re ference range was not u sed to interpret this result as normal/abnor mal. MPV (test code = 9.6 fL 9.5-12.9 55532-7) NRBC/100 WBC (test See_Comment [Automat ed message] code = 5816125702) The syste m which generated this result transmitted ref erence range: 0.0 - 10 .0 /100 WBCs. The refer ence range was not u sed to interpret this result as normal/abnor mal. NRBC x10^3 (test See_Comment [Automated message] code = 8674202446) The syste m which generated this result transmitted ref erence range: 10*3/?L. The reference range was not used to interpr et this result as normal/abnormal . GRAN MAT (NEUT) % 62.1 % (test code = 770-8) IMM GRAN % (test 0.30 % code = 8340635095) LYMPH % (test code 28.9 % = 736-9) MONO % (test code 5.8 % = 5905-5) EOS % (test code = 2.3 % 713-8) BASO % (test code 0.6 % = 706-2) GRAN MAT 4.27 10*3/uL 1.88-7.09 x10^3(ANC) (test code = 6554677748) IMM GRAN x10^3 0-0.06 (test code = 6787091389) LYMPH x10^3 (test 1.99 10*3/uL 1.32-3.29 code = 731-0) MONO x10^3 (test 0.40 10*3/uL 0.33-0.92 code = 742-7) EOS x10^3 (test 0.16 10*3/uL 0.03-0.39 code = 711-2) BASO x10^3 (test 0.04 10*3/uL 0.01-0.07 code = 704-7) General acute hospital. PYLORI (BREATH)2022-01-03 15:07:57 Test Item Value Reference Range Interpretation Comments H. PYLORI (BREATH) NEGATIVE NEGATIVE UNLESS O THERWISE (test code = 84724) INDICATE D, ALL TESTING PERFORMED [facility] [address] [place] [id number] [place] [address] DIRECTOR: TANNER VELASQUEZ M.D. CLIA NUMBER [id number] CAP ACCREDITATION N O. [id number] ALTMAN (Sm) [id number] 05:38:15 Test Item Value Reference Range Interpretation Comments ALTMAN (Sm) ANTIBODY (test code = <0.2 AI <1.0 00619) SCL-70 [id number] 05:38:15 Test Item Value Reference Range Interpretation Comments SCL-70 ANTIBODY (test code = 4606) <0.2 AI <1.0 SJOGREN'S SS-A AND SS-B [id number] 05:38:15 Test Item Value Reference Range Interpretation Comments SJOGREN'S SS-A <0.2 AI <1.0 ANTIBODY (test code = 84903) SJOGREN'S SS-B <0.2 AI <1.0 UNLESS OTHER ROTH ANTIBODY (test code = INDICA ALEX, ALL TESTING 68467) PERFORMED [facility] PATHOLOGY [facility] [address] [place] [id number] [facility] DIRECTOR: TANNER VELASQUEZ M.D. CLIA NUMBER [id number] CAP ACCREDITATION N O. [id number] H. PYLORI (BREATH)2022-01-03 00:00:00 Test Item Value Reference Range Interpretation Comments H. PYLORI (BREATH) (test code = NEGATIVE 08331) H. PYLORI (BREATH)2022-01-03 00:00:00 Test Item Value Reference Range Interpretation Comments H. PYLORI (BREATH) (test code = NEGATIVE 59307) ALTMAN (Sm) [id number] 00:00:00 Test Item Value Reference Range Interpretation Comments ALTMAN (Sm) ANTIBODY (test code = <0.2 AI 21278) ALTMAN (Sm) [id number] 00:00:00 Test Item Value Reference Range Interpretation Comments ALTMAN (Sm) ANTIBODY (test code = <0.2 AI 53780) SCL-70 [id number] 00:00:00 Test Item Value Reference Range Interpretation Comments SCL-70 ANTIBODY (test code = 4606) <0.2 AI SCL-70 [id number] 00:00:00 Test Item Value Reference Range Interpretation Comments SCL-70 ANTIBODY (test code = 4606) <0.2 AI SCL-70 [id number] 00:00:00 Test Item Value Reference Range Interpretation Comments SCL-70 ANTIBODY (test code = 4606) <0.2 AI [id number] 00:00:00 Test Item Value Reference Range Interpretation Comments SJOGREN'S SS-A ANTIBODY (test code = <0.2 AI 21172) SJOGREN'S SS-B ANTIBODY (test code = <0.2 AI 48045) [id number] 00:00:00 Test Item Value Reference Range Interpretation Comments SJOGREN'S SS-A ANTIBODY (test code = <0.2 AI 54115) SJOGREN'S SS-B ANTIBODY (test code = <0.2 AI 41554) H. PYLORI (BREATH)2022-01-03 00:00:00 Test Item Value Reference Range Interpretation Comments H. PYLORI (BREATH) (test code = NEGATIVE 53045) H. PYLORI (BREATH)2022-01-03 00:00:00 Test Item Value Reference Range Interpretation Comments H. PYLORI (BREATH) (test code = NEGATIVE 69292) ALTMAN (Sm) [id number] 00:00:00 Test Item Value Reference Range Interpretation Comments ALTMAN (Sm) ANTIBODY (test code = <0.2 AI 74338) ALTMAN (Sm) [id number] 00:00:00 Test Item Value Reference Range Interpretation Comments ALTMAN (Sm) ANTIBODY (test code = <0.2 AI 43389) SCL-70 [id number] 00:00:00 Test Item Value Reference Range Interpretation Comments SCL-70 ANTIBODY (test code = 4606) <0.2 AI SCL-70 [id number] 00:00:00 Test Item Value Reference Range Interpretation Comments SCL-70 ANTIBODY (test code = 4606) <0.2 AI SCL-70 [id number] 00:00:00 Test Item Value Reference Range Interpretation Comments SCL-70 ANTIBODY (test code = 4606) <0.2 AI [id number] 00:00:00 Test Item Value Reference Range Interpretation Comments SJOGREN'S SS-A ANTIBODY (test code = <0.2 AI 80379) SJOGREN'S SS-B ANTIBODY (test code = <0.2 AI 98741) [id number] 00:00:00 Test Item Value Reference Range Interpretation Comments SJOGREN'S SS-A ANTIBODY (test code = <0.2 AI 58895) SJOGREN'S SS-B ANTIBODY (test code = <0.2 AI 95022) ALTMAN (Sm) [id number] 00:00:00 Test Item Value Reference Range Interpretation Comments ALTMAN (Sm) ANTIBODY (test code = <0.2 AI 20541) ALTMAN (Sm) [id number] 00:00:00 Test Item Value Reference Range Interpretation Comments ALTMAN (Sm) ANTIBODY (test code = <0.2 AI 51453) H. PYLORI (BREATH)2022-01-03 00:00:00 Test Item Value Reference Range Interpretation Comments H. PYLORI (BREATH) (test code = NEGATIVE 08618) H. PYLORI (BREATH)2022-01-03 00:00:00 Test Item Value Reference Range Interpretation Comments H. PYLORI (BREATH) (test code = NEGATIVE 73553) SCL-70 [id number] 00:00:00 Test Item Value Reference Range Interpretation Comments SCL-70 ANTIBODY (test code = 4606) <0.2 AI SCL-70 [id number] 00:00:00 Test Item Value Reference Range Interpretation Comments SCL-70 ANTIBODY (test code = 4606) <0.2 AI SCL-70 [id number] 00:00:00 Test Item Value Reference Range Interpretation Comments SCL-70 ANTIBODY (test code = 4606) <0.2 AI [id number] 00:00:00 Test Item Value Reference Range Interpretation Comments SJOGREN'S SS-A ANTIBODY (test code = <0.2 AI 68829) SJOGREN'S SS-B ANTIBODY (test code = <0.2 AI 29116) [id number] 00:00:00 Test Item Value Reference Range Interpretation Comments SJOGREN'S SS-A ANTIBODY (test code = <0.2 AI 32626) SJOGREN'S SS-B ANTIBODY (test code = <0.2 AI 53351) H. PYLORI (BREATH)2022-01-03 00:00:00 Test Item Value Reference Range Interpretation Comments H. PYLORI (BREATH) (test code = NEGATIVE 17027) H. PYLORI (BREATH)2022-01-03 00:00:00 Test Item Value Reference Range Interpretation Comments H. PYLORI (BREATH) (test code = NEGATIVE 11299) ALTMAN (Sm) [id number] 00:00:00 Test Item Value Reference Range Interpretation Comments ALTMAN (Sm) ANTIBODY (test code = <0.2 AI 92019) ALTMAN (Sm) [id number] 00:00:00 Test Item Value Reference Range Interpretation Comments ALTMAN (Sm) ANTIBODY (test code = <0.2 AI 52023) SCL-70 [id number] 00:00:00 Test Item Value Reference Range Interpretation Comments SCL-70 ANTIBODY (test code = 4606) <0.2 AI SCL-70 [id number] 00:00:00 Test Item Value Reference Range Interpretation Comments SCL-70 ANTIBODY (test code = 4606) <0.2 AI SCL-70 [id number] 00:00:00 Test Item Value Reference Range Interpretation Comments SCL-70 ANTIBODY (test code = 4606) <0.2 AI [id number] 00:00:00 Test Item Value Reference Range Interpretation Comments SJOGREN'S SS-A ANTIBODY (test code = <0.2 AI 79741) SJOGREN'S SS-B ANTIBODY (test code = <0.2 AI 35611) [id number] 00:00:00 Test Item Value Reference Range Interpretation Comments SJOGREN'S SS-A ANTIBODY (test code = <0.2 AI 30896) SJOGREN'S SS-B ANTIBODY (test code = <0.2 AI 90156) ALTMAN (Sm) [id number] 00:00:00 Test Item Value Reference Range Interpretation Comments ALTMAN (Sm) ANTIBODY (test code = <0.2 AI 99547) ALTMAN (Sm) [id number] 00:00:00 Test Item Value Reference Range Interpretation Comments ALTMAN (Sm) ANTIBODY (test code = <0.2 AI 33929) H. PYLORI (BREATH)2022-01-03 00:00:00 Test Item Value Reference Range Interpretation Comments H. PYLORI (BREATH) (test code = NEGATIVE 56376) H. PYLORI (BREATH)2022-01-03 00:00:00 Test Item Value Reference Range Interpretation Comments H. PYLORI (BREATH) (test code = NEGATIVE 25634) SCL-70 [id number] 00:00:00 Test Item Value Reference Range Interpretation Comments SCL-70 ANTIBODY (test code = 4606) <0.2 AI SCL-70 [id number] 00:00:00 Test Item Value Reference Range Interpretation Comments SCL-70 ANTIBODY (test code = 4606) <0.2 AI SCL-70 [id number] 00:00:00 Test Item Value Reference Range Interpretation Comments SCL-70 ANTIBODY (test code = 4606) <0.2 AI [id number] 00:00:00 Test Item Value Reference Range Interpretation Comments SJOGREN'S SS-A ANTIBODY (test code = <0.2 AI 07851) SJOGREN'S SS-B ANTIBODY (test code = <0.2 AI 75377) [id number] 00:00:00 Test Item Value Reference Range Interpretation Comments SJOGREN'S SS-A ANTIBODY (test code = <0.2 AI 51064) SJOGREN'S SS-B ANTIBODY (test code = <0.2 AI 60700) H. PYLORI (BREATH)2022-01-03 00:00:00 Test Item Value Reference Range Interpretation Comments H. PYLORI (BREATH) (test code = NEGATIVE 40955) H. PYLORI (BREATH)2022-01-03 00:00:00 Test Item Value Reference Range Interpretation Comments H. PYLORI (BREATH) (test code = NEGATIVE 26876) ALTMAN (Sm) [id number] 00:00:00 Test Item Value Reference Range Interpretation Comments ALTMAN (Sm) ANTIBODY (test code = <0.2 AI 70084) ALTMAN (Sm) [id number] 00:00:00 Test Item Value Reference Range Interpretation Comments ALTMAN (Sm) ANTIBODY (test code = <0.2 AI 43330) SCL-70 [id number] 00:00:00 Test Item Value Reference Range Interpretation Comments SCL-70 ANTIBODY (test code = 4606) <0.2 AI SCL-70 [id number] 00:00:00 Test Item Value Reference Range Interpretation Comments SCL-70 ANTIBODY (test code = 4606) <0.2 AI SCL-70 [id number] 00:00:00 Test Item Value Reference Range Interpretation Comments SCL-70 ANTIBODY (test code = 4606) <0.2 AI [id number] 00:00:00 Test Item Value Reference Range Interpretation Comments SJOGREN'S SS-A ANTIBODY (test code = <0.2 AI 81480) SJOGREN'S SS-B ANTIBODY (test code = <0.2 AI 06482) [id number] 00:00:00 Test Item Value Reference Range Interpretation Comments SJOGREN'S SS-A ANTIBODY (test code = <0.2 AI 01891) SJOGREN'S SS-B ANTIBODY (test code = <0.2 AI 51841) H. PYLORI (BREATH)2022-01-03 00:00:00 Test Item Value Reference Range Interpretation Comments H. PYLORI (BREATH) (test code = NEGATIVE 81308) H. PYLORI (BREATH)2022-01-03 00:00:00 Test Item Value Reference Range Interpretation Comments H. PYLORI (BREATH) (test code = NEGATIVE 40077) ALTMAN (Sm) [id number] 00:00:00 Test Item Value Reference Range Interpretation Comments ALTMAN (Sm) ANTIBODY (test code = <0.2 AI 55740) ALTMAN (Sm) [id number] 00:00:00 Test Item Value Reference Range Interpretation Comments ALTMAN (Sm) ANTIBODY (test code = <0.2 AI 58824) SCL-70 [id number] 00:00:00 Test Item Value Reference Range Interpretation Comments SCL-70 ANTIBODY (test code = 4606) <0.2 AI SCL-70 [id number] 00:00:00 Test Item Value Reference Range Interpretation Comments SCL-70 ANTIBODY (test code = 4606) <0.2 AI SCL-70 [id number] 00:00:00 Test Item Value Reference Range Interpretation Comments SCL-70 ANTIBODY (test code = 4606) <0.2 AI [id number] 00:00:00 Test Item Value Reference Range Interpretation Comments SJOGREN'S SS-A ANTIBODY (test code = <0.2 AI 28946) SJOGREN'S SS-B ANTIBODY (test code = <0.2 AI 26031) [id number] 00:00:00 Test Item Value Reference Range Interpretation Comments SJOGREN'S SS-A ANTIBODY (test code = <0.2 AI 59695) SJOGREN'S SS-B ANTIBODY (test code = <0.2 AI 78229) ALTMAN (Sm) [id number] 00:00:00 Test Item Value Reference Range Interpretation Comments ALTMAN (Sm) ANTIBODY (test code = <0.2 AI 75457) ALTMAN (Sm) [id number] 00:00:00 Test Item Value Reference Range Interpretation Comments ALTMAN (Sm) ANTIBODY (test code = <0.2 AI 23282) H. PYLORI (BREATH)2022-01-03 00:00:00 Test Item Value Reference Range Interpretation Comments H. PYLORI (BREATH) (test code = NEGATIVE 71477) H. PYLORI (BREATH)2022-01-03 00:00:00 Test Item Value Reference Range Interpretation Comments H. PYLORI (BREATH) (test code = NEGATIVE 00098) SCL-70 [id number] 00:00:00 Test Item Value Reference Range Interpretation Comments SCL-70 ANTIBODY (test code = 4606) <0.2 AI SCL-70 [id number] 00:00:00 Test Item Value Reference Range Interpretation Comments SCL-70 ANTIBODY (test code = 4606) <0.2 AI SCL-70 [id number] 00:00:00 Test Item Value Reference Range Interpretation Comments SCL-70 ANTIBODY (test code = 4606) <0.2 AI [id number] 00:00:00 Test Item Value Reference Range Interpretation Comments SJOGREN'S SS-A ANTIBODY (test code = <0.2 AI 44148) SJOGREN'S SS-B ANTIBODY (test code = <0.2 AI 57339) [id number] 00:00:00 Test Item Value Reference Range Interpretation Comments SJOGREN'S SS-A ANTIBODY (test code = <0.2 AI 50463) SJOGREN'S SS-B ANTIBODY (test code = <0.2 AI 83544) KATHRYN (ANTI-NUCLEAR AB) WITH REFLEX [id number] 04:07:31 Test Item Value Reference Range Interpretation Comments ANTI-NUCLEAR POSITIVE NEGATIVE A ANTIBODIES (test code = 3506) KATHRYN PATTERN SEE BELOW (REPORTED TITER) (test code = 26785) HOMOGENEOUS (test NEGATIVE TITER NEGATIVE code = 44224) SPECKLED (test 1:160 TITER NEGATIVE H code = 493752) DENSE FINE NEGATIVE TITER NEGATIVE SPECKLED (test code = 81162) CENTROMERE (test NEGATIVE TITER NEGATIVE code = 585238) COARSE SPECKLED NEGATIVE TITER NEGATIVE (test code = 426532) DISCRETE NUCLEAR NEGATIVE TITER NEGATIVE DOTS (test code = 987747) NUCLEOLAR (test NEGATIVE TITER NEGATIVE code = 205512) NUCLEAR MEMBRANE NEGATIVE TITER NEGATIVE (test code = 296490) CYTO. RETICULAR NEGATIVE NEGATIVE (ANEESH) (test code = 243661) COMMENTS (test NONE code = 206634) METHOD (test code (NOTE) NOTE: EFF ECTIVE = 16084) 11/06/2021, MET HOD IS TRANSITIONED TO THE [employer] [facility] IFA PLATFO RM. THE METHOD INCLUDES A SCREENTHRESHOLD OF 1:80, DIGITIZED AND COMPUTER ALGORITHM-NOLBERTO DANIELS RPRETATION OF T ITERS AND DIGITAL PAT TERNS, AND HEp-2 CELLL INE SUBSTRATE. GUS TIONAL UNUSUAL PATTERN S WILL BE GIVEN ASCOMM ENTS. FOR MORE INFORM ATION, SEE [email or web address] KATHRYN (ANTI-NUCLEAR AB) WITH REFLEX [id number] 00:00:00 Test Item Value Reference Range Interpretation Comments ANTI-NUCLEAR ANTIBODIES (test POSITIVE code = 3506) KATHRYN PATTERN (REPORTED SEE BELOW TITER) (test code = 70044) HOMOGENEOUS (test code = NEGATIVE TITER 45319) SPECKLED (test code = 325040) 1:160 TITER DENSE FINE SPECKLED (test code NEGATIVE TITER = 23748) CENTROMERE (test code = NEGATIVE TITER 307463) COARSE SPECKLED (test code = NEGATIVE TITER 240327) DISCRETE NUCLEAR DOTS (test NEGATIVE TITER code = 103155) NUCLEOLAR (test code = 010910) NEGATIVE TITER NUCLEAR MEMBRANE (test code = NEGATIVE TITER 751164) CYTO. RETICULAR (ANEESH) (test NEGATIVE code = 322366) COMMENTS (test code = 292458) NONE METHOD (test code = 51113) (NOTE) KATHRYN (ANTI-NUCLEAR AB) WITH REFLEX [id number] 00:00:00 Test Item Value Reference Range Interpretation Comments ANTI-NUCLEAR ANTIBODIES (test POSITIVE code = 3506) KATHRYN PATTERN (REPORTED SEE BELOW TITER) (test code = 13661) HOMOGENEOUS (test code = NEGATIVE TITER 59879) SPECKLED (test code = 755681) 1:160 TITER DENSE FINE SPECKLED (test code NEGATIVE TITER = 04168) CENTROMERE (test code = NEGATIVE TITER 015869) COARSE SPECKLED (test code = NEGATIVE TITER 456821) DISCRETE NUCLEAR DOTS (test NEGATIVE TITER code = 587075) NUCLEOLAR (test code = 160279) NEGATIVE TITER NUCLEAR MEMBRANE (test code = NEGATIVE TITER 504243) CYTO. RETICULAR (ANEESH) (test NEGATIVE code = 815207) COMMENTS (test code = 041808) NONE METHOD (test code = 07744) (NOTE) KATHRYN (ANTI-NUCLEAR AB) WITH REFLEX [id number] 00:00:00 Test Item Value Reference Range Interpretation Comments ANTI-NUCLEAR ANTIBODIES (test POSITIVE code = 3506) KATHRYN PATTERN (REPORTED SEE BELOW TITER) (test code = 22164) HOMOGENEOUS (test code = NEGATIVE TITER 73654) SPECKLED (test code = 959004) 1:160 TITER DENSE FINE SPECKLED (test code NEGATIVE TITER = 31910) CENTROMERE (test code = NEGATIVE TITER 234318) COARSE SPECKLED (test code = NEGATIVE TITER 134499) DISCRETE NUCLEAR DOTS (test NEGATIVE TITER code = 130190) NUCLEOLAR (test code = 788469) NEGATIVE TITER NUCLEAR MEMBRANE (test code = NEGATIVE TITER 841173) CYTO. RETICULAR (ANEESH) (test NEGATIVE code = 818359) COMMENTS (test code = 412917) NONE METHOD (test code = 62907) (NOTE) KATHRYN (ANTI-NUCLEAR AB) WITH REFLEX [id number] 00:00:00 Test Item Value Reference Range Interpretation Comments ANTI-NUCLEAR ANTIBODIES (test POSITIVE code = 3506) KATHRYN PATTERN (REPORTED SEE BELOW TITER) (test code = 20452) HOMOGENEOUS (test code = NEGATIVE TITER 56308) SPECKLED (test code = 200698) 1:160 TITER DENSE FINE SPECKLED (test code NEGATIVE TITER = 94492) CENTROMERE (test code = NEGATIVE TITER 771835) COARSE SPECKLED (test code = NEGATIVE TITER 517477) DISCRETE NUCLEAR DOTS (test NEGATIVE TITER code = 463792) NUCLEOLAR (test code = 886461) NEGATIVE TITER NUCLEAR MEMBRANE (test code = NEGATIVE TITER 811968) CYTO. RETICULAR (ANEESH) (test NEGATIVE code = 465742) COMMENTS (test code = 101551) NONE METHOD (test code = 57711) (NOTE) KATHRYN (ANTI-NUCLEAR AB) WITH REFLEX [id number] 00:00:00 Test Item Value Reference Range Interpretation Comments ANTI-NUCLEAR ANTIBODIES (test POSITIVE code = 3506) KATHRYN PATTERN (REPORTED SEE BELOW TITER) (test code = 53887) HOMOGENEOUS (test code = NEGATIVE TITER 82525) SPECKLED (test code = 110495) 1:160 TITER DENSE FINE SPECKLED (test code NEGATIVE TITER = 37304) CENTROMERE (test code = NEGATIVE TITER 558496) COARSE SPECKLED (test code = NEGATIVE TITER 911993) DISCRETE NUCLEAR DOTS (test NEGATIVE TITER code = 086128) NUCLEOLAR (test code = 302158) NEGATIVE TITER NUCLEAR MEMBRANE (test code = NEGATIVE TITER 746201) CYTO. RETICULAR (ANEESH) (test NEGATIVE code = 229737) COMMENTS (test code = 777838) NONE METHOD (test code = 93518) (NOTE) KATHRYN (ANTI-NUCLEAR AB) WITH REFLEX [id number] 00:00:00 Test Item Value Reference Range Interpretation Comments ANTI-NUCLEAR ANTIBODIES (test POSITIVE code = 3506) KATHRYN PATTERN (REPORTED SEE BELOW TITER) (test code = 76267) HOMOGENEOUS (test code = NEGATIVE TITER 73135) SPECKLED (test code = 252375) 1:160 TITER DENSE FINE SPECKLED (test code NEGATIVE TITER = 55810) CENTROMERE (test code = NEGATIVE TITER 926360) COARSE SPECKLED (test code = NEGATIVE TITER 922855) DISCRETE NUCLEAR DOTS (test NEGATIVE TITER code = 199721) NUCLEOLAR (test code = 934713) NEGATIVE TITER NUCLEAR MEMBRANE (test code = NEGATIVE TITER 293664) CYTO. RETICULAR (ANEESH) (test NEGATIVE code = 968535) COMMENTS (test code = 528885) NONE METHOD (test code = 99771) (NOTE) KATHRYN (ANTI-NUCLEAR AB) WITH REFLEX [id number] 00:00:00 Test Item Value Reference Range Interpretation Comments ANTI-NUCLEAR ANTIBODIES (test POSITIVE code = 3506) KATHRYN PATTERN (REPORTED SEE BELOW TITER) (test code = 69683) HOMOGENEOUS (test code = NEGATIVE TITER 11185) SPECKLED (test code = 678053) 1:160 TITER DENSE FINE SPECKLED (test code NEGATIVE TITER = 03748) CENTROMERE (test code = NEGATIVE TITER 405943) COARSE SPECKLED (test code = NEGATIVE TITER 121766) DISCRETE NUCLEAR DOTS (test NEGATIVE TITER code = 239812) NUCLEOLAR (test code = 060663) NEGATIVE TITER NUCLEAR MEMBRANE (test code = NEGATIVE TITER 536329) CYTO. RETICULAR (ANEESH) (test NEGATIVE code = 509303) COMMENTS (test code = 346824) NONE METHOD (test code = 19318) (NOTE) KATHRYN (ANTI-NUCLEAR AB) WITH REFLEX [id number] 00:00:00 Test Item Value Reference Range Interpretation Comments ANTI-NUCLEAR ANTIBODIES (test POSITIVE code = 3506) KATHRYN PATTERN (REPORTED SEE BELOW TITER) (test code = 71303) HOMOGENEOUS (test code = NEGATIVE TITER 58788) SPECKLED (test code = 500525) 1:160 TITER DENSE FINE SPECKLED (test code NEGATIVE TITER = 24420) CENTROMERE (test code = NEGATIVE TITER 496620) COARSE SPECKLED (test code = NEGATIVE TITER 713835) DISCRETE NUCLEAR DOTS (test NEGATIVE TITER code = 391311) NUCLEOLAR (test code = 930597) NEGATIVE TITER NUCLEAR MEMBRANE (test code = NEGATIVE TITER 171751) CYTO. RETICULAR (ANEESH) (test NEGATIVE code = 238605) COMMENTS (test code = 398943) NONE METHOD (test code = 16979) (NOTE) KATHRYN (ANTI-NUCLEAR AB) WITH REFLEX [id number] 00:00:00 Test Item Value Reference Range Interpretation Comments ANTI-NUCLEAR ANTIBODIES (test POSITIVE code = 3506) KATHRYN PATTERN (REPORTED SEE BELOW TITER) (test code = 48617) HOMOGENEOUS (test code = NEGATIVE TITER 33727) SPECKLED (test code = 551496) 1:160 TITER DENSE FINE SPECKLED (test code NEGATIVE TITER = 95753) CENTROMERE (test code = NEGATIVE TITER 677827) COARSE SPECKLED (test code = NEGATIVE TITER 766078) DISCRETE NUCLEAR DOTS (test NEGATIVE TITER code = 885619) NUCLEOLAR (test code = 559335) NEGATIVE TITER NUCLEAR MEMBRANE (test code = NEGATIVE TITER 523144) CYTO. RETICULAR (ANEESH) (test NEGATIVE code = 017857) COMMENTS (test code = 460215) NONE METHOD (test code = 18381) (NOTE) KATHRYN (ANTI-NUCLEAR AB) WITH REFLEX [id number] 00:00:00 Test Item Value Reference Range Interpretation Comments ANTI-NUCLEAR ANTIBODIES (test POSITIVE code = 3506) KATHRYN PATTERN (REPORTED SEE BELOW TITER) (test code = 59857) HOMOGENEOUS (test code = NEGATIVE TITER 79419) SPECKLED (test code = 761749) 1:160 TITER DENSE FINE SPECKLED (test code NEGATIVE TITER = 46627) CENTROMERE (test code = NEGATIVE TITER 980921) COARSE SPECKLED (test code = NEGATIVE TITER 709142) DISCRETE NUCLEAR DOTS (test NEGATIVE TITER code = 038482) NUCLEOLAR (test code = 746955) NEGATIVE TITER NUCLEAR MEMBRANE (test code = NEGATIVE TITER 298193) CYTO. RETICULAR (ANEESH) (test NEGATIVE code = 348805) COMMENTS (test code = 821387) NONE METHOD (test code = 00270) (NOTE) KATHRYN (ANTI-NUCLEAR AB) WITH REFLEX [id number] 00:00:00 Test Item Value Reference Range Interpretation Comments ANTI-NUCLEAR ANTIBODIES (test POSITIVE code = 3506) KATHRYN PATTERN (REPORTED SEE BELOW TITER) (test code = 94741) HOMOGENEOUS (test code = NEGATIVE TITER 58897) SPECKLED (test code = 204104) 1:160 TITER DENSE FINE SPECKLED (test code NEGATIVE TITER = 38247) CENTROMERE (test code = NEGATIVE TITER 978171) COARSE SPECKLED (test code = NEGATIVE TITER 125207) DISCRETE NUCLEAR DOTS (test NEGATIVE TITER code = 750138) NUCLEOLAR (test code = 385097) NEGATIVE TITER NUCLEAR MEMBRANE (test code = NEGATIVE TITER 789407) CYTO. RETICULAR (ANEESH) (test NEGATIVE code = 881635) COMMENTS (test code = 918818) NONE METHOD (test code = 40194) (NOTE) KATHRYN (ANTI-NUCLEAR AB) WITH REFLEX [id number] 00:00:00 Test Item Value Reference Range Interpretation Comments ANTI-NUCLEAR ANTIBODIES (test POSITIVE code = 3506) KATHRYN PATTERN (REPORTED SEE BELOW TITER) (test code = 22300) HOMOGENEOUS (test code = NEGATIVE TITER 58007) SPECKLED (test code = 089240) 1:160 TITER DENSE FINE SPECKLED (test code NEGATIVE TITER = 44377) CENTROMERE (test code = NEGATIVE TITER 976607) COARSE SPECKLED (test code = NEGATIVE TITER 426881) DISCRETE NUCLEAR DOTS (test NEGATIVE TITER code = 498029) NUCLEOLAR (test code = 901272) NEGATIVE TITER NUCLEAR MEMBRANE (test code = NEGATIVE TITER 000848) CYTO. RETICULAR (ANEESH) (test NEGATIVE code = 049386) COMMENTS (test code = 543065) NONE METHOD (test code = 33044) (NOTE) KATHRYN (ANTI-NUCLEAR AB) WITH REFLEX [id number] 00:00:00 Test Item Value Reference Range Interpretation Comments ANTI-NUCLEAR ANTIBODIES (test POSITIVE code = 3506) KATHRYN PATTERN (REPORTED SEE BELOW TITER) (test code = 62663) HOMOGENEOUS (test code = NEGATIVE TITER 68844) SPECKLED (test code = 403230) 1:160 TITER DENSE FINE SPECKLED (test code NEGATIVE TITER = 71058) CENTROMERE (test code = NEGATIVE TITER 430139) COARSE SPECKLED (test code = NEGATIVE TITER 854334) DISCRETE NUCLEAR DOTS (test NEGATIVE TITER code = 252133) NUCLEOLAR (test code = 258816) NEGATIVE TITER NUCLEAR MEMBRANE (test code = NEGATIVE TITER 190059) CYTO. RETICULAR (ANEESH) (test NEGATIVE code = 535907) COMMENTS (test code = 622850) NONE METHOD (test code = 14815) (NOTE) KATHRYN (ANTI-NUCLEAR AB) WITH REFLEX [id number] 00:00:00 Test Item Value Reference Range Interpretation Comments ANTI-NUCLEAR ANTIBODIES (test POSITIVE code = 3506) KATHRYN PATTERN (REPORTED SEE BELOW TITER) (test code = 84426) HOMOGENEOUS (test code = NEGATIVE TITER 50266) SPECKLED (test code = 750166) 1:160 TITER DENSE FINE SPECKLED (test code NEGATIVE TITER = 23719) CENTROMERE (test code = NEGATIVE TITER 106051) COARSE SPECKLED (test code = NEGATIVE TITER 448767) DISCRETE NUCLEAR DOTS (test NEGATIVE TITER code = 794952) NUCLEOLAR (test code = 236512) NEGATIVE TITER NUCLEAR MEMBRANE (test code = NEGATIVE TITER 893634) CYTO. RETICULAR (ANEESH) (test NEGATIVE code = 648715) COMMENTS (test code = 706538) NONE METHOD (test code = 90943) (NOTE) KATHRYN (ANTI-NUCLEAR AB) WITH REFLEX [id number] 00:00:00 Test Item Value Reference Range Interpretation Comments ANTI-NUCLEAR ANTIBODIES (test POSITIVE code = 3506) KATHRYN PATTERN (REPORTED SEE BELOW TITER) (test code = 46426) HOMOGENEOUS (test code = NEGATIVE TITER 58793) SPECKLED (test code = 295706) 1:160 TITER DENSE FINE SPECKLED (test code NEGATIVE TITER = 92612) CENTROMERE (test code = NEGATIVE TITER 334586) COARSE SPECKLED (test code = NEGATIVE TITER 738421) DISCRETE NUCLEAR DOTS (test NEGATIVE TITER code = 958159) NUCLEOLAR (test code = 211620) NEGATIVE TITER NUCLEAR MEMBRANE (test code = NEGATIVE TITER 128737) CYTO. RETICULAR (ANEESH) (test NEGATIVE code = 715547) COMMENTS (test code = 851474) NONE METHOD (test code = 27858) (NOTE) KATHRYN (ANTI-NUCLEAR AB) WITH REFLEX [id number] 00:00:00 Test Item Value Reference Range Interpretation Comments ANTI-NUCLEAR ANTIBODIES (test POSITIVE code = 3506) KATHRYN PATTERN (REPORTED SEE BELOW TITER) (test code = 36859) HOMOGENEOUS (test code = NEGATIVE TITER 90822) SPECKLED (test code = 371702) 1:160 TITER DENSE FINE SPECKLED (test code NEGATIVE TITER = 79455) CENTROMERE (test code = NEGATIVE TITER 969529) COARSE SPECKLED (test code = NEGATIVE TITER 150941) DISCRETE NUCLEAR DOTS (test NEGATIVE TITER code = 283017) NUCLEOLAR (test code = 140834) NEGATIVE TITER NUCLEAR MEMBRANE (test code = NEGATIVE TITER 600019) CYTO. RETICULAR (ANEESH) (test NEGATIVE code = 674388) COMMENTS (test code = 394048) NONE METHOD (test code = 89228) (NOTE) KATHRYN (ANTI-NUCLEAR AB) WITH REFLEX [id number] 00:00:00 Test Item Value Reference Range Interpretation Comments ANTI-NUCLEAR ANTIBODIES (test POSITIVE code = 3506) KATHRYN PATTERN (REPORTED SEE BELOW TITER) (test code = 97628) HOMOGENEOUS (test code = NEGATIVE TITER 51812) SPECKLED (test code = 165525) 1:160 TITER DENSE FINE SPECKLED (test code NEGATIVE TITER = 94705) CENTROMERE (test code = NEGATIVE TITER 934515) COARSE SPECKLED (test code = NEGATIVE TITER 521393) DISCRETE NUCLEAR DOTS (test NEGATIVE TITER code = 200004) NUCLEOLAR (test code = 947508) NEGATIVE TITER NUCLEAR MEMBRANE (test code = NEGATIVE TITER 545690) CYTO. RETICULAR (ANEESH) (test NEGATIVE code = 721248) COMMENTS (test code = 381464) NONE METHOD (test code = 97484) (NOTE) KATHRYN (ANTI-NUCLEAR AB) WITH REFLEX [id number] 00:00:00 Test Item Value Reference Range Interpretation Comments ANTI-NUCLEAR ANTIBODIES (test POSITIVE code = 3506) KATHRYN PATTERN (REPORTED SEE BELOW TITER) (test code = 74321) HOMOGENEOUS (test code = NEGATIVE TITER 06318) SPECKLED (test code = 393930) 1:160 TITER DENSE FINE SPECKLED (test code NEGATIVE TITER = 44869) CENTROMERE (test code = NEGATIVE TITER 552469) COARSE SPECKLED (test code = NEGATIVE TITER 288039) DISCRETE NUCLEAR DOTS (test NEGATIVE TITER code = 928491) NUCLEOLAR (test code = 363528) NEGATIVE TITER NUCLEAR MEMBRANE (test code = NEGATIVE TITER 640058) CYTO. RETICULAR (ANEESH) (test NEGATIVE code = 999158) COMMENTS (test code = 620903) NONE METHOD (test code = 28709) (NOTE) SEDIMENTATION [id number] 10:45:17 Test Item Value Reference Range Interpretation Comments SEDIMENTATION RATE (test code = 2 MM/HOUR 0-20 1017) HEMOGLOBIN [id number] 10:22:30 Test Item Value Reference Range Interpretation Comments HEMOGLOBIN A1c (test code = 71217) 5.4 % 4.2-5.6 TSH, THIRD [id number] 06:03:43 Test Item Value Reference Range Interpretation Comments TSH, THIRD GENERATION (test code 1.220 UIU/ML 0.400-4.100 = 2821) RHEUMATOID FACTOR, [id number] 05:16:40 Test Item Value Reference Range Interpretation Comments RHEUMATOID FACTOR, QUANT (test code <10 IU/ML <14 = 3502) LIPID [id number] 05:16:07 Test Item Value Reference Range Interpretation Comments CHOLESTEROL (test 135 MG/DL <200 code = 2210) TRIGLYCERIDES (test 147 MG/DL <150 code = 2232) HDL CHOLESTEROL (test 31 MG/DL >39 L code = 2220) CALC LDL CHOL (test 80 MG/DL <100 NOTE: C ALCULATED LDL code = 2237) IS BASED ON LEELA-JERONIMO METHOD WHICHINCLUDES ADJUSTABLE TRIGLYCERIDE:VL DL CHOLESTEROL RAT IO.THIS FACTOR VARIES B Y MEASURED TRIGLY CERIDE AND NON-HDLCHOL ESTEROL CONCENTRATIONS WITH INCREASED CALCU LATED LDL SEENIN HIGH ER TRIGLYCERIDE OR LOWER NON-HDL SPECIME NS. FOR MOREINFORMATION , SEE CLIENT ANNOUNCE MENT AT [email or web address] RISK RATIO LDL/HDL 2.58 RATIO <3.22 UNLESS O THERWISE (test code = 2238) INDICATED , ALL TESTING PERFORMED [facility], [address] [place] [place], [place] [id number] [place] [address] DIRECTOR: TANNER VELASQUEZ M.D. CLIA NUMBER [id number] CAP ACCREDITATION N O. [id number] URIC [id number] 05:16:07 Test Item Value Reference Range Interpretation Comments URIC ACID (test code = 2233) 7.4 MG/DL 2.7-6.1 H COMPREHENSIVE METABOLIC [id number] 05:16:07 Test Item Value Reference Range Interpretation Comments GLUCOSE (test code = 88 MG/DL 70-99 2216) BUN (test code = 14 MG/DL 6-20 2207) CREATININE (test 0.71 MG/DL 0.60-1.30 code = 2213) eGFR (2020 CKD-EPI) 101 >60 (test code = 51358) ML/MIN/1.73 CALC BUN/CREAT (test 20 RATIO 6-28 code = 2235) SODIUM (test code = 140 MEQ/L 700-796 4947) POTASSIUM (test code 4.4 MEQ/L 3.5-5.4 = 2227) CHLORIDE (test code 106 MEQ/L 95-107 = 2214) CARBON DIOXIDE (test 19 MEQ/L 19-31 code = 2205) CALCIUM (test code = 11.2 MG/DL 8.5-10.5 H 2208) PROTEIN, TOTAL (test 6.9 G/DL 6.1-8.3 code = 2228) ALBUMIN (test code = 4.3 G/DL 3.5-5.2 2200) CALC GLOBULIN (test 2.6 G/DL 1.9-3.7 code = 2239) CALC A/G RATIO (test 1.7 RATIO 1.0-2.6 code = 223) BILIRUBIN, TOTAL 0.6 MG/DL See_Comment [Automated message] (test code = 2206) The syste [employer] which generated this result transmit alex reference range : <=1.2. The refe rence range was not u sed to interpret th is result as normal/abnormal . ALKALINE PHOSPHATASE 102 U/L 40-133 (test code = 2203) AST (test code = 21 U/L 9-40 2217) ALT (test code = 33 U/L 5-40 2218) CCP [id number] 04:51:18 Test Item Value Reference Range Interpretation Comments CCP IgG (test <0.5 U/ML <3.0 INTERPRET ALEK code = 69672) INFORMATION * INTERPRETATION RESULT NEGATIVE <3.0 U /ML POSITIVE >=3.0 U/ML HEMOGLOBIN [id number] 00:00:00 Test Item Value Reference Range Interpretation Comments HEMOGLOBIN A1c (test code = 81620) 5.4 % HEMOGLOBIN [id number] 00:00:00 Test Item Value Reference Range Interpretation Comments HEMOGLOBIN A1c (test code = 82061) 5.4 % HEMOGLOBIN [id number] 00:00:00 Test Item Value Reference Range Interpretation Comments HEMOGLOBIN A1c (test code = 49488) 5.4 % COMPREHENSIVE METABOLIC [id number] 00:00:00 Test Item Value Reference Range Interpretation Comments GLUCOSE (test code = 2217) 88 MG/DL BUN (test code = 2208) 14 MG/DL CREATININE (test code = 2214) 0.71 MG/DL eGFR (2020 CKD-EPI) (test 101 ML/MIN/1.73 code = 35357) CALC BUN/CREAT (test code = 20 RATIO 2235) SODIUM (test code = 2231) 140 MEQ/L POTASSIUM (test code = 2228) 4.4 MEQ/L CHLORIDE (test code = 2215) 106 MEQ/L CARBON DIOXIDE (test code = 19 MEQ/L 2205) CALCIUM (test code = 2209) 11.2 MG/DL PROTEIN, TOTAL (test code = 6.9 G/DL 2228) ALBUMIN (test code = 2201) 4.3 G/DL CALC GLOBULIN (test code = 2.6 G/DL 2239) CALC A/G RATIO (test code = 1.7 RATIO 2234) BILIRUBIN, TOTAL (test code = 0.6 MG/DL 2206) ALKALINE PHOSPHATASE (test 102 U/L code = 2204) AST (test code = 2218) 21 U/L ALT (test code = 2219) 33 U/L COMPREHENSIVE METABOLIC [id number] 00:00:00 Test Item Value Reference Range Interpretation Comments GLUCOSE (test code = 2217) 88 MG/DL BUN (test code = 2208) 14 MG/DL CREATININE (test code = 2214) 0.71 MG/DL eGFR (2020 CKD-EPI) (test 101 ML/MIN/1.73 code = 73672) CALC BUN/CREAT (test code = 20 RATIO 2235) SODIUM (test code = 2231) 140 MEQ/L POTASSIUM (test code = 2228) 4.4 MEQ/L CHLORIDE (test code = 2215) 106 MEQ/L CARBON DIOXIDE (test code = 19 MEQ/L 220) CALCIUM (test code = 2209) 11.2 MG/DL PROTEIN, TOTAL (test code = 6.9 G/DL 2228) ALBUMIN (test code = 2201) 4.3 G/DL CALC GLOBULIN (test code = 2.6 G/DL 2240) CALC A/G RATIO (test code = 1.7 RATIO 2234) BILIRUBIN, TOTAL (test code = 0.6 MG/DL 2206) ALKALINE PHOSPHATASE (test 102 U/L code = 2204) AST (test code = 2218) 21 U/L ALT (test code = 2219) 33 U/L LIPID [id number] 00:00:00 Test Item Value Reference Range Interpretation Comments CHOLESTEROL (test code = 2210) 135 MG/DL TRIGLYCERIDES (test code = 2232) 147 MG/DL HDL CHOLESTEROL (test code = 2220) 31 MG/DL CALC LDL CHOL (test code = 2237) 80 MG/DL RISK RATIO LDL/HDL (test code = 2.58 RATIO 2238) LIPID [id number] 00:00:00 Test Item Value Reference Range Interpretation Comments CHOLESTEROL (test code = 2210) 135 MG/DL TRIGLYCERIDES (test code = 2232) 147 MG/DL HDL CHOLESTEROL (test code = 2220) 31 MG/DL CALC LDL CHOL (test code = 2237) 80 MG/DL RISK RATIO LDL/HDL (test code = 2.58 RATIO 2238) SEDIMENTATION [id number] 00:00:00 Test Item Value Reference Range Interpretation Comments SEDIMENTATION RATE (test code = 2 MM/HOUR 1017) SEDIMENTATION [id number] 00:00:00 Test Item Value Reference Range Interpretation Comments SEDIMENTATION RATE (test code = 2 MM/HOUR 1017) TSH, THIRD [id number] 00:00:00 Test Item Value Reference Range Interpretation Comments TSH, THIRD GENERATION (test code 1.220 UIU/ML = 2821) TSH, THIRD [id number] 00:00:00 Test Item Value Reference Range Interpretation Comments TSH, THIRD GENERATION (test code 1.220 UIU/ML = 2821) TSH, THIRD [id number] 00:00:00 Test Item Value Reference Range Interpretation Comments TSH, THIRD GENERATION (test code 1.220 UIU/ML = 2821) CCP [id number] 00:00:00 Test Item Value Reference Range Interpretation Comments CCP IgG (test code = 41399) <0.5 U/ML CCP [id number] 00:00:00 Test Item Value Reference Range Interpretation Comments CCP IgG (test code = 38236) <0.5 U/ML CCP [id number] 00:00:00 Test Item Value Reference Range Interpretation Comments CCP IgG (test code = 38897) <0.5 U/ML RHEUMATOID FACTOR, [id number] 00:00:00 Test Item Value Reference Range Interpretation Comments RHEUMATOID FACTOR, QUANT (test code <10 IU/ML = 3502) RHEUMATOID FACTOR, [id number] 00:00:00 Test Item Value Reference Range Interpretation Comments RHEUMATOID FACTOR, QUANT (test code <10 IU/ML = 3502) RHEUMATOID FACTOR, [id number] 00:00:00 Test Item Value Reference Range Interpretation Comments RHEUMATOID FACTOR, QUANT (test code <10 IU/ML = 3502) URIC [id number] 00:00:00 Test Item Value Reference Range Interpretation Comments URIC ACID (test code = 2233) 7.4 MG/DL URIC [id number] 00:00:00 Test Item Value Reference Range Interpretation Comments URIC ACID (test code = 2233) 7.4 MG/DL HEMOGLOBIN [id number] 00:00:00 Test Item Value Reference Range Interpretation Comments HEMOGLOBIN A1c (test code = 46148) 5.4 % HEMOGLOBIN [id number] 00:00:00 Test Item Value Reference Range Interpretation Comments HEMOGLOBIN A1c (test code = 75664) 5.4 % HEMOGLOBIN [id number] 00:00:00 Test Item Value Reference Range Interpretation Comments HEMOGLOBIN A1c (test code = 39188) 5.4 % COMPREHENSIVE METABOLIC [id number] 00:00:00 Test Item Value Reference Range Interpretation Comments GLUCOSE (test code = 2217) 88 MG/DL BUN (test code = 2208) 14 MG/DL CREATININE (test code = 2214) 0.71 MG/DL eGFR (2020 CKD-EPI) (test 101 ML/MIN/1.73 code = 60973) CALC BUN/CREAT (test code = 20 RATIO 2235) SODIUM (test code = 2231) 140 MEQ/L POTASSIUM (test code = 2228) 4.4 MEQ/L CHLORIDE (test code = 2215) 106 MEQ/L CARBON DIOXIDE (test code = 19 MEQ/L 2205) CALCIUM (test code = 2209) 11.2 MG/DL PROTEIN, TOTAL (test code = 6.9 G/DL 2228) ALBUMIN (test code = 2201) 4.3 G/DL CALC GLOBULIN (test code = 2.6 G/DL 2240) CALC A/G RATIO (test code = 1.7 RATIO 2234) BILIRUBIN, TOTAL (test code = 0.6 MG/DL 2206) ALKALINE PHOSPHATASE (test 102 U/L code = 2204) AST (test code = 2218) 21 U/L ALT (test code = 2219) 33 U/L COMPREHENSIVE METABOLIC [id number] 00:00:00 Test Item Value Reference Range Interpretation Comments GLUCOSE (test code = 2217) 88 MG/DL BUN (test code = 2208) 14 MG/DL CREATININE (test code = 2214) 0.71 MG/DL eGFR (2020 CKD-EPI) (test 101 ML/MIN/1.73 code = 58715) CALC BUN/CREAT (test code = 20 RATIO 2235) SODIUM (test code = 2231) 140 MEQ/L POTASSIUM (test code = 2228) 4.4 MEQ/L CHLORIDE (test code = 2215) 106 MEQ/L CARBON DIOXIDE (test code = 19 MEQ/L 2205) CALCIUM (test code = 2209) 11.2 MG/DL PROTEIN, TOTAL (test code = 6.9 G/DL 2228) ALBUMIN (test code = 2201) 4.3 G/DL CALC GLOBULIN (test code = 2.6 G/DL 2240) CALC A/G RATIO (test code = 1.7 RATIO 2234) BILIRUBIN, TOTAL (test code = 0.6 MG/DL 2206) ALKALINE PHOSPHATASE (test 102 U/L code = 2204) AST (test code = 2218) 21 U/L ALT (test code = 2219) 33 U/L LIPID [id number] 00:00:00 Test Item Value Reference Range Interpretation Comments CHOLESTEROL (test code = 2210) 135 MG/DL TRIGLYCERIDES (test code = 2232) 147 MG/DL HDL CHOLESTEROL (test code = 2220) 31 MG/DL CALC LDL CHOL (test code = 2237) 80 MG/DL RISK RATIO LDL/HDL (test code = 2.58 RATIO 2238) LIPID [id number] 00:00:00 Test Item Value Reference Range Interpretation Comments CHOLESTEROL (test code = 2210) 135 MG/DL TRIGLYCERIDES (test code = 2232) 147 MG/DL HDL CHOLESTEROL (test code = 2220) 31 MG/DL CALC LDL CHOL (test code = 2237) 80 MG/DL RISK RATIO LDL/HDL (test code = 2.58 RATIO 2238) SEDIMENTATION [id number] 00:00:00 Test Item Value Reference Range Interpretation Comments SEDIMENTATION RATE (test code = 2 MM/HOUR 1017) SEDIMENTATION [id number] 00:00:00 Test Item Value Reference Range Interpretation Comments SEDIMENTATION RATE (test code = 2 MM/HOUR 1017) TSH, THIRD [id number] 00:00:00 Test Item Value Reference Range Interpretation Comments TSH, THIRD GENERATION (test code 1.220 UIU/ML = 2821) TSH, THIRD [id number] 00:00:00 Test Item Value Reference Range Interpretation Comments TSH, THIRD GENERATION (test code 1.220 UIU/ML = 2821) TSH, THIRD [id number] 00:00:00 Test Item Value Reference Range Interpretation Comments TSH, THIRD GENERATION (test code 1.220 UIU/ML = 2821) CCP [id number] 00:00:00 Test Item Value Reference Range Interpretation Comments CCP IgG (test code = 34701) <0.5 U/ML CCP [id number] 00:00:00 Test Item Value Reference Range Interpretation Comments CCP IgG (test code = 25934) <0.5 U/ML CCP [id number] 00:00:00 Test Item Value Reference Range Interpretation Comments CCP IgG (test code = 54110) <0.5 U/ML RHEUMATOID FACTOR, [id number] 00:00:00 Test Item Value Reference Range Interpretation Comments RHEUMATOID FACTOR, QUANT (test code <10 IU/ML = 3502) RHEUMATOID FACTOR, [id number] 00:00:00 Test Item Value Reference Range Interpretation Comments RHEUMATOID FACTOR, QUANT (test code <10 IU/ML = 3502) RHEUMATOID FACTOR, [id number] 00:00:00 Test Item Value Reference Range Interpretation Comments RHEUMATOID FACTOR, QUANT (test code <10 IU/ML = 3502) URIC [id number] 00:00:00 Test Item Value Reference Range Interpretation Comments URIC ACID (test code = 2233) 7.4 MG/DL URIC [id number] 00:00:00 Test Item Value Reference Range Interpretation Comments URIC ACID (test code = 2233) 7.4 MG/DL HEMOGLOBIN [id number] 00:00:00 Test Item Value Reference Range Interpretation Comments HEMOGLOBIN A1c (test code = 03630) 5.4 % HEMOGLOBIN [id number] 00:00:00 Test Item Value Reference Range Interpretation Comments HEMOGLOBIN A1c (test code = 76292) 5.4 % HEMOGLOBIN [id number] 00:00:00 Test Item Value Reference Range Interpretation Comments HEMOGLOBIN A1c (test code = 09366) 5.4 % COMPREHENSIVE METABOLIC [id number] 00:00:00 Test Item Value Reference Range Interpretation Comments GLUCOSE (test code = 2217) 88 MG/DL BUN (test code = 2208) 14 MG/DL CREATININE (test code = 2214) 0.71 MG/DL eGFR (2020 CKD-EPI) (test 101 ML/MIN/1.73 code = 03435) CALC BUN/CREAT (test code = 20 RATIO 5) SODIUM (test code = 2231) 140 MEQ/L POTASSIUM (test code = 2228) 4.4 MEQ/L CHLORIDE (test code = 2215) 106 MEQ/L CARBON DIOXIDE (test code = 19 MEQ/L 2205) CALCIUM (test code = 2209) 11.2 MG/DL PROTEIN, TOTAL (test code = 6.9 G/DL 2228) ALBUMIN (test code = 2201) 4.3 G/DL CALC GLOBULIN (test code = 2.6 G/DL 2239) CALC A/G RATIO (test code = 1.7 RATIO 2233) BILIRUBIN, TOTAL (test code = 0.6 MG/DL 2206) ALKALINE PHOSPHATASE (test 102 U/L code = 2204) AST (test code = 2218) 21 U/L ALT (test code = 2219) 33 U/L COMPREHENSIVE METABOLIC [id number] 00:00:00 Test Item Value Reference Range Interpretation Comments GLUCOSE (test code = 2217) 88 MG/DL BUN (test code = 2208) 14 MG/DL CREATININE (test code = 2214) 0.71 MG/DL eGFR (2020 CKD-EPI) (test 101 ML/MIN/1.73 code = 62826) CALC BUN/CREAT (test code = 20 RATIO 2235) SODIUM (test code = 2231) 140 MEQ/L POTASSIUM (test code = 2228) 4.4 MEQ/L CHLORIDE (test code = 2215) 106 MEQ/L CARBON DIOXIDE (test code = 19 MEQ/L 2205) CALCIUM (test code = 2209) 11.2 MG/DL PROTEIN, TOTAL (test code = 6.9 G/DL 2228) ALBUMIN (test code = 2201) 4.3 G/DL CALC GLOBULIN (test code = 2.6 G/DL 224) CALC A/G RATIO (test code = 1.7 RATIO 2234) BILIRUBIN, TOTAL (test code = 0.6 MG/DL 2206) ALKALINE PHOSPHATASE (test 102 U/L code = 2204) AST (test code = 2218) 21 U/L ALT (test code = 2219) 33 U/L LIPID [id number] 00:00:00 Test Item Value Reference Range Interpretation Comments CHOLESTEROL (test code = 2210) 135 MG/DL TRIGLYCERIDES (test code = 2232) 147 MG/DL HDL CHOLESTEROL (test code = 2220) 31 MG/DL CALC LDL CHOL (test code = 2237) 80 MG/DL RISK RATIO LDL/HDL (test code = 2.58 RATIO 2238) LIPID [id number] 00:00:00 Test Item Value Reference Range Interpretation Comments CHOLESTEROL (test code = 2210) 135 MG/DL TRIGLYCERIDES (test code = 2232) 147 MG/DL HDL CHOLESTEROL (test code = 2220) 31 MG/DL CALC LDL CHOL (test code = 2237) 80 MG/DL RISK RATIO LDL/HDL (test code = 2.58 RATIO 2238) SEDIMENTATION [id number] 00:00:00 Test Item Value Reference Range Interpretation Comments SEDIMENTATION RATE (test code = 2 MM/HOUR 1017) SEDIMENTATION [id number] 00:00:00 Test Item Value Reference Range Interpretation Comments SEDIMENTATION RATE (test code = 2 MM/HOUR 1017) TSH, THIRD [id number] 00:00:00 Test Item Value Reference Range Interpretation Comments TSH, THIRD GENERATION (test code 1.220 UIU/ML = 2821) TSH, THIRD [id number] 00:00:00 Test Item Value Reference Range Interpretation Comments TSH, THIRD GENERATION (test code 1.220 UIU/ML = 2821) TSH, THIRD [id number] 00:00:00 Test Item Value Reference Range Interpretation Comments TSH, THIRD GENERATION (test code 1.220 UIU/ML = 2821) CCP [id number] 00:00:00 Test Item Value Reference Range Interpretation Comments CCP IgG (test code = 28840) <0.5 U/ML CCP [id number] 00:00:00 Test Item Value Reference Range Interpretation Comments CCP IgG (test code = 69743) <0.5 U/ML CCP [id number] 00:00:00 Test Item Value Reference Range Interpretation Comments CCP IgG (test code = 19182) <0.5 U/ML RHEUMATOID FACTOR, [id number] 00:00:00 Test Item Value Reference Range Interpretation Comments RHEUMATOID FACTOR, QUANT (test code <10 IU/ML = 3502) RHEUMATOID FACTOR, [id number] 00:00:00 Test Item Value Reference Range Interpretation Comments RHEUMATOID FACTOR, QUANT (test code <10 IU/ML = 3502) RHEUMATOID FACTOR, [id number] 00:00:00 Test Item Value Reference Range Interpretation Comments RHEUMATOID FACTOR, QUANT (test code <10 IU/ML = 3502) URIC [id number] 00:00:00 Test Item Value Reference Range Interpretation Comments URIC ACID (test code = 2233) 7.4 MG/DL URIC [id number] 00:00:00 Test Item Value Reference Range Interpretation Comments URIC ACID (test code = 2233) 7.4 MG/DL HEMOGLOBIN [id number] 00:00:00 Test Item Value Reference Range Interpretation Comments HEMOGLOBIN A1c (test code = 81006) 5.4 % HEMOGLOBIN [id number] 00:00:00 Test Item Value Reference Range Interpretation Comments HEMOGLOBIN A1c (test code = 42673) 5.4 % HEMOGLOBIN [id number] 00:00:00 Test Item Value Reference Range Interpretation Comments HEMOGLOBIN A1c (test code = 11427) 5.4 % COMPREHENSIVE METABOLIC [id number] 00:00:00 Test Item Value Reference Range Interpretation Comments GLUCOSE (test code = 2217) 88 MG/DL BUN (test code = 2208) 14 MG/DL CREATININE (test code = 2214) 0.71 MG/DL eGFR (2020 CKD-EPI) (test 101 ML/MIN/1.73 code = 19400) CALC BUN/CREAT (test code = 20 RATIO 2235) SODIUM (test code = 2231) 140 MEQ/L POTASSIUM (test code = 2228) 4.4 MEQ/L CHLORIDE (test code = 2215) 106 MEQ/L CARBON DIOXIDE (test code = 19 MEQ/L 2206) CALCIUM (test code = 2209) 11.2 MG/DL PROTEIN, TOTAL (test code = 6.9 G/DL 222) ALBUMIN (test code = 2201) 4.3 G/DL CALC GLOBULIN (test code = 2.6 G/DL 2240) CALC A/G RATIO (test code = 1.7 RATIO 2234) BILIRUBIN, TOTAL (test code = 0.6 MG/DL 2206) ALKALINE PHOSPHATASE (test 102 U/L code = 2204) AST (test code = 2218) 21 U/L ALT (test code = 2219) 33 U/L COMPREHENSIVE METABOLIC [id number] 00:00:00 Test Item Value Reference Range Interpretation Comments GLUCOSE (test code = 2217) 88 MG/DL BUN (test code = 2208) 14 MG/DL CREATININE (test code = 2214) 0.71 MG/DL eGFR (2020 CKD-EPI) (test 101 ML/MIN/1.73 code = 69749) CALC BUN/CREAT (test code = 20 RATIO 2235) SODIUM (test code = 2231) 140 MEQ/L POTASSIUM (test code = 2228) 4.4 MEQ/L CHLORIDE (test code = 2215) 106 MEQ/L CARBON DIOXIDE (test code = 19 MEQ/L 2206) CALCIUM (test code = 2209) 11.2 MG/DL PROTEIN, TOTAL (test code = 6.9 G/DL 2229) ALBUMIN (test code = 2201) 4.3 G/DL CALC GLOBULIN (test code = 2.6 G/DL 2240) CALC A/G RATIO (test code = 1.7 RATIO 2234) BILIRUBIN, TOTAL (test code = 0.6 MG/DL 220) ALKALINE PHOSPHATASE (test 102 U/L code = 2204) AST (test code = 2218) 21 U/L ALT (test code = 2219) 33 U/L LIPID [id number] 00:00:00 Test Item Value Reference Range Interpretation Comments CHOLESTEROL (test code = 2210) 135 MG/DL TRIGLYCERIDES (test code = 2232) 147 MG/DL HDL CHOLESTEROL (test code = 2220) 31 MG/DL CALC LDL CHOL (test code = 2237) 80 MG/DL RISK RATIO LDL/HDL (test code = 2.58 RATIO 2238) LIPID [id number] 00:00:00 Test Item Value Reference Range Interpretation Comments CHOLESTEROL (test code = 2210) 135 MG/DL TRIGLYCERIDES (test code = 2232) 147 MG/DL HDL CHOLESTEROL (test code = 2220) 31 MG/DL CALC LDL CHOL (test code = 2237) 80 MG/DL RISK RATIO LDL/HDL (test code = 2.58 RATIO 2238) SEDIMENTATION [id number] 00:00:00 Test Item Value Reference Range Interpretation Comments SEDIMENTATION RATE (test code = 2 MM/HOUR 1017) SEDIMENTATION [id number] 00:00:00 Test Item Value Reference Range Interpretation Comments SEDIMENTATION RATE (test code = 2 MM/HOUR 1017) TSH, THIRD [id number] 00:00:00 Test Item Value Reference Range Interpretation Comments TSH, THIRD GENERATION (test code 1.220 UIU/ML = 2821) TSH, THIRD [id number] 00:00:00 Test Item Value Reference Range Interpretation Comments TSH, THIRD GENERATION (test code 1.220 UIU/ML = 2821) TSH, THIRD [id number] 00:00:00 Test Item Value Reference Range Interpretation Comments TSH, THIRD GENERATION (test code 1.220 UIU/ML = 2821) CCP [id number] 00:00:00 Test Item Value Reference Range Interpretation Comments CCP IgG (test code = 51983) <0.5 U/ML CCP [id number] 00:00:00 Test Item Value Reference Range Interpretation Comments CCP IgG (test code = 86551) <0.5 U/ML CCP [id number] 00:00:00 Test Item Value Reference Range Interpretation Comments CCP IgG (test code = 94853) <0.5 U/ML RHEUMATOID FACTOR, [id number] 00:00:00 Test Item Value Reference Range Interpretation Comments RHEUMATOID FACTOR, QUANT (test code <10 IU/ML = 3502) RHEUMATOID FACTOR, [id number] 00:00:00 Test Item Value Reference Range Interpretation Comments RHEUMATOID FACTOR, QUANT (test code <10 IU/ML = 3502) RHEUMATOID FACTOR, [id number] 00:00:00 Test Item Value Reference Range Interpretation Comments RHEUMATOID FACTOR, QUANT (test code <10 IU/ML = 3502) URIC [id number] 00:00:00 Test Item Value Reference Range Interpretation Comments URIC ACID (test code = 2233) 7.4 MG/DL URIC [id number] 00:00:00 Test Item Value Reference Range Interpretation Comments URIC ACID (test code = 2233) 7.4 MG/DL HEMOGLOBIN [id number] 00:00:00 Test Item Value Reference Range Interpretation Comments HEMOGLOBIN A1c (test code = 43463) 5.4 % HEMOGLOBIN [id number] 00:00:00 Test Item Value Reference Range Interpretation Comments HEMOGLOBIN A1c (test code = 14961) 5.4 % HEMOGLOBIN [id number] 00:00:00 Test Item Value Reference Range Interpretation Comments HEMOGLOBIN A1c (test code = 01338) 5.4 % COMPREHENSIVE METABOLIC [id number] 00:00:00 Test Item Value Reference Range Interpretation Comments GLUCOSE (test code = 2217) 88 MG/DL BUN (test code = 2208) 14 MG/DL CREATININE (test code = 2214) 0.71 MG/DL eGFR (2020 CKD-EPI) (test 101 ML/MIN/1.73 code = 98876) CALC BUN/CREAT (test code = 20 RATIO 2234) SODIUM (test code = 2231) 140 MEQ/L POTASSIUM (test code = 2228) 4.4 MEQ/L CHLORIDE (test code = 2215) 106 MEQ/L CARBON DIOXIDE (test code = 19 MEQ/L 2205) CALCIUM (test code = 2209) 11.2 MG/DL PROTEIN, TOTAL (test code = 6.9 G/DL 2228) ALBUMIN (test code = 220) 4.3 G/DL CALC GLOBULIN (test code = 2.6 G/DL 2239) CALC A/G RATIO (test code = 1.7 RATIO 2233) BILIRUBIN, TOTAL (test code = 0.6 MG/DL 2206) ALKALINE PHOSPHATASE (test 102 U/L code = 2204) AST (test code = 2218) 21 U/L ALT (test code = 2219) 33 U/L COMPREHENSIVE METABOLIC [id number] 00:00:00 Test Item Value Reference Range Interpretation Comments GLUCOSE (test code = 2217) 88 MG/DL BUN (test code = 2208) 14 MG/DL CREATININE (test code = 2214) 0.71 MG/DL eGFR (2020 CKD-EPI) (test 101 ML/MIN/1.73 code = 04106) CALC BUN/CREAT (test code = 20 RATIO 2235) SODIUM (test code = 2231) 140 MEQ/L POTASSIUM (test code = 2228) 4.4 MEQ/L CHLORIDE (test code = 2215) 106 MEQ/L CARBON DIOXIDE (test code = 19 MEQ/L 2205) CALCIUM (test code = 2209) 11.2 MG/DL PROTEIN, TOTAL (test code = 6.9 G/DL 2228) ALBUMIN (test code = 2201) 4.3 G/DL CALC GLOBULIN (test code = 2.6 G/DL 2239) CALC A/G RATIO (test code = 1.7 RATIO 2234) BILIRUBIN, TOTAL (test code = 0.6 MG/DL 2206) ALKALINE PHOSPHATASE (test 102 U/L code = 2204) AST (test code = 2218) 21 U/L ALT (test code = 2219) 33 U/L LIPID [id number] 00:00:00 Test Item Value Reference Range Interpretation Comments CHOLESTEROL (test code = 2210) 135 MG/DL TRIGLYCERIDES (test code = 2232) 147 MG/DL HDL CHOLESTEROL (test code = 2220) 31 MG/DL CALC LDL CHOL (test code = 2237) 80 MG/DL RISK RATIO LDL/HDL (test code = 2.58 RATIO 2238) LIPID [id number] 00:00:00 Test Item Value Reference Range Interpretation Comments CHOLESTEROL (test code = 2210) 135 MG/DL TRIGLYCERIDES (test code = 2232) 147 MG/DL HDL CHOLESTEROL (test code = 2220) 31 MG/DL CALC LDL CHOL (test code = 2237) 80 MG/DL RISK RATIO LDL/HDL (test code = 2.58 RATIO 2238) SEDIMENTATION [id number] 00:00:00 Test Item Value Reference Range Interpretation Comments SEDIMENTATION RATE (test code = 2 MM/HOUR 1017) SEDIMENTATION [id number] 00:00:00 Test Item Value Reference Range Interpretation Comments SEDIMENTATION RATE (test code = 2 MM/HOUR 1017) TSH, THIRD [id number] 00:00:00 Test Item Value Reference Range Interpretation Comments TSH, THIRD GENERATION (test code 1.220 UIU/ML = 2821) TSH, THIRD [id number] 00:00:00 Test Item Value Reference Range Interpretation Comments TSH, THIRD GENERATION (test code 1.220 UIU/ML = 2821) TSH, THIRD [id number] 00:00:00 Test Item Value Reference Range Interpretation Comments TSH, THIRD GENERATION (test code 1.220 UIU/ML = 2821) CCP [id number] 00:00:00 Test Item Value Reference Range Interpretation Comments CCP IgG (test code = 39161) <0.5 U/ML CCP [id number] 00:00:00 Test Item Value Reference Range Interpretation Comments CCP IgG (test code = 56137) <0.5 U/ML CCP [id number] 00:00:00 Test Item Value Reference Range Interpretation Comments CCP IgG (test code = 69408) <0.5 U/ML RHEUMATOID FACTOR, [id number] 00:00:00 Test Item Value Reference Range Interpretation Comments RHEUMATOID FACTOR, QUANT (test code <10 IU/ML = 3502) RHEUMATOID FACTOR, [id number] 00:00:00 Test Item Value Reference Range Interpretation Comments RHEUMATOID FACTOR, QUANT (test code <10 IU/ML = 3502) RHEUMATOID FACTOR, [id number] 00:00:00 Test Item Value Reference Range Interpretation Comments RHEUMATOID FACTOR, QUANT (test code <10 IU/ML = 3502) URIC [id number] 00:00:00 Test Item Value Reference Range Interpretation Comments URIC ACID (test code = 2233) 7.4 MG/DL URIC [id number] 00:00:00 Test Item Value Reference Range Interpretation Comments URIC ACID (test code = 2233) 7.4 MG/DL HEMOGLOBIN [id number] 00:00:00 Test Item Value Reference Range Interpretation Comments HEMOGLOBIN A1c (test code = 38869) 5.4 % HEMOGLOBIN [id number] 00:00:00 Test Item Value Reference Range Interpretation Comments HEMOGLOBIN A1c (test code = 61699) 5.4 % HEMOGLOBIN [id number] 00:00:00 Test Item Value Reference Range Interpretation Comments HEMOGLOBIN A1c (test code = 31980) 5.4 % COMPREHENSIVE METABOLIC [id number] 00:00:00 Test Item Value Reference Range Interpretation Comments GLUCOSE (test code = 2217) 88 MG/DL BUN (test code = 2208) 14 MG/DL CREATININE (test code = 2214) 0.71 MG/DL eGFR (2020 CKD-EPI) (test 101 ML/MIN/1.73 code = 78078) CALC BUN/CREAT (test code = 20 RATIO 2235) SODIUM (test code = 2231) 140 MEQ/L POTASSIUM (test code = 2228) 4.4 MEQ/L CHLORIDE (test code = 2215) 106 MEQ/L CARBON DIOXIDE (test code = 19 MEQ/L 2205) CALCIUM (test code = 2209) 11.2 MG/DL PROTEIN, TOTAL (test code = 6.9 G/DL 2228) ALBUMIN (test code = 2201) 4.3 G/DL CALC GLOBULIN (test code = 2.6 G/DL 2239) CALC A/G RATIO (test code = 1.7 RATIO 4) BILIRUBIN, TOTAL (test code = 0.6 MG/DL 2206) ALKALINE PHOSPHATASE (test 102 U/L code = 2204) AST (test code = 2218) 21 U/L ALT (test code = 2219) 33 U/L COMPREHENSIVE METABOLIC [id number] 00:00:00 Test Item Value Reference Range Interpretation Comments GLUCOSE (test code = 2217) 88 MG/DL BUN (test code = 2208) 14 MG/DL CREATININE (test code = 2214) 0.71 MG/DL eGFR (2020 CKD-EPI) (test 101 ML/MIN/1.73 code = 32785) CALC BUN/CREAT (test code = 20 RATIO 2235) SODIUM (test code = 2231) 140 MEQ/L POTASSIUM (test code = 2228) 4.4 MEQ/L CHLORIDE (test code = 2215) 106 MEQ/L CARBON DIOXIDE (test code = 19 MEQ/L 220) CALCIUM (test code = 2209) 11.2 MG/DL PROTEIN, TOTAL (test code = 6.9 G/DL 2228) ALBUMIN (test code = 2201) 4.3 G/DL CALC GLOBULIN (test code = 2.6 G/DL 2240) CALC A/G RATIO (test code = 1.7 RATIO 2234) BILIRUBIN, TOTAL (test code = 0.6 MG/DL 2206) ALKALINE PHOSPHATASE (test 102 U/L code = 2204) AST (test code = 2218) 21 U/L ALT (test code = 2219) 33 U/L LIPID [id number] 00:00:00 Test Item Value Reference Range Interpretation Comments CHOLESTEROL (test code = 2210) 135 MG/DL TRIGLYCERIDES (test code = 2232) 147 MG/DL HDL CHOLESTEROL (test code = 2220) 31 MG/DL CALC LDL CHOL (test code = 2237) 80 MG/DL RISK RATIO LDL/HDL (test code = 2.58 RATIO 2238) LIPID [id number] 00:00:00 Test Item Value Reference Range Interpretation Comments CHOLESTEROL (test code = 2210) 135 MG/DL TRIGLYCERIDES (test code = 2232) 147 MG/DL HDL CHOLESTEROL (test code = 2220) 31 MG/DL CALC LDL CHOL (test code = 2237) 80 MG/DL RISK RATIO LDL/HDL (test code = 2.58 RATIO 2238) SEDIMENTATION [id number] 00:00:00 Test Item Value Reference Range Interpretation Comments SEDIMENTATION RATE (test code = 2 MM/HOUR 1017) SEDIMENTATION [id number] 00:00:00 Test Item Value Reference Range Interpretation Comments SEDIMENTATION RATE (test code = 2 MM/HOUR 1017) TSH, THIRD [id number] 00:00:00 Test Item Value Reference Range Interpretation Comments TSH, THIRD GENERATION (test code 1.220 UIU/ML = 2821) TSH, THIRD [id number] 00:00:00 Test Item Value Reference Range Interpretation Comments TSH, THIRD GENERATION (test code 1.220 UIU/ML = 2821) TSH, THIRD [id number] 00:00:00 Test Item Value Reference Range Interpretation Comments TSH, THIRD GENERATION (test code 1.220 UIU/ML = 2821) CCP [id number] 00:00:00 Test Item Value Reference Range Interpretation Comments CCP IgG (test code = 53476) <0.5 U/ML CCP [id number] 00:00:00 Test Item Value Reference Range Interpretation Comments CCP IgG (test code = 34174) <0.5 U/ML CCP [id number] 00:00:00 Test Item Value Reference Range Interpretation Comments CCP IgG (test code = 11464) <0.5 U/ML RHEUMATOID FACTOR, [id number] 00:00:00 Test Item Value Reference Range Interpretation Comments RHEUMATOID FACTOR, QUANT (test code <10 IU/ML = 3502) RHEUMATOID FACTOR, [id number] 00:00:00 Test Item Value Reference Range Interpretation Comments RHEUMATOID FACTOR, QUANT (test code <10 IU/ML = 3502) RHEUMATOID FACTOR, [id number] 00:00:00 Test Item Value Reference Range Interpretation Comments RHEUMATOID FACTOR, QUANT (test code <10 IU/ML = 3502) URIC [id number] 00:00:00 Test Item Value Reference Range Interpretation Comments URIC ACID (test code = 2233) 7.4 MG/DL URIC [id number] 00:00:00 Test Item Value Reference Range Interpretation Comments URIC ACID (test code = 2233) 7.4 MG/DL HEMOGLOBIN [id number] 00:00:00 Test Item Value Reference Range Interpretation Comments HEMOGLOBIN A1c (test code = 08342) 5.4 % HEMOGLOBIN [id number] 00:00:00 Test Item Value Reference Range Interpretation Comments HEMOGLOBIN A1c (test code = 64891) 5.4 % HEMOGLOBIN [id number] 00:00:00 Test Item Value Reference Range Interpretation Comments HEMOGLOBIN A1c (test code = 93266) 5.4 % COMPREHENSIVE METABOLIC [id number] 00:00:00 Test Item Value Reference Range Interpretation Comments GLUCOSE (test code = 2217) 88 MG/DL BUN (test code = 2208) 14 MG/DL CREATININE (test code = 2214) 0.71 MG/DL eGFR (2020 CKD-EPI) (test 101 ML/MIN/1.73 code = 24551) CALC BUN/CREAT (test code = 20 RATIO 2235) SODIUM (test code = 2231) 140 MEQ/L POTASSIUM (test code = 2228) 4.4 MEQ/L CHLORIDE (test code = 2215) 106 MEQ/L CARBON DIOXIDE (test code = 19 MEQ/L 2206) CALCIUM (test code = 2209) 11.2 MG/DL PROTEIN, TOTAL (test code = 6.9 G/DL 222) ALBUMIN (test code = 2201) 4.3 G/DL CALC GLOBULIN (test code = 2.6 G/DL 2240) CALC A/G RATIO (test code = 1.7 RATIO 2234) BILIRUBIN, TOTAL (test code = 0.6 MG/DL 2206) ALKALINE PHOSPHATASE (test 102 U/L code = 2204) AST (test code = 2218) 21 U/L ALT (test code = 2219) 33 U/L COMPREHENSIVE METABOLIC [id number] 00:00:00 Test Item Value Reference Range Interpretation Comments GLUCOSE (test code = 2217) 88 MG/DL BUN (test code = 2208) 14 MG/DL CREATININE (test code = 2214) 0.71 MG/DL eGFR (2020 CKD-EPI) (test 101 ML/MIN/1.73 code = 96731) CALC BUN/CREAT (test code = 20 RATIO 2235) SODIUM (test code = 2231) 140 MEQ/L POTASSIUM (test code = 2228) 4.4 MEQ/L CHLORIDE (test code = 2215) 106 MEQ/L CARBON DIOXIDE (test code = 19 MEQ/L 2205) CALCIUM (test code = 2209) 11.2 MG/DL PROTEIN, TOTAL (test code = 6.9 G/DL 2228) ALBUMIN (test code = 2201) 4.3 G/DL CALC GLOBULIN (test code = 2.6 G/DL 2240) CALC A/G RATIO (test code = 1.7 RATIO 2234) BILIRUBIN, TOTAL (test code = 0.6 MG/DL 2206) ALKALINE PHOSPHATASE (test 102 U/L code = 2204) AST (test code = 2218) 21 U/L ALT (test code = 2219) 33 U/L LIPID [id number] 00:00:00 Test Item Value Reference Range Interpretation Comments CHOLESTEROL (test code = 2210) 135 MG/DL TRIGLYCERIDES (test code = 2232) 147 MG/DL HDL CHOLESTEROL (test code = 2220) 31 MG/DL CALC LDL CHOL (test code = 2237) 80 MG/DL RISK RATIO LDL/HDL (test code = 2.58 RATIO 2238) LIPID [id number] 00:00:00 Test Item Value Reference Range Interpretation Comments CHOLESTEROL (test code = 2210) 135 MG/DL TRIGLYCERIDES (test code = 2232) 147 MG/DL HDL CHOLESTEROL (test code = 2220) 31 MG/DL CALC LDL CHOL (test code = 2237) 80 MG/DL RISK RATIO LDL/HDL (test code = 2.58 RATIO 2238) SEDIMENTATION [id number] 00:00:00 Test Item Value Reference Range Interpretation Comments SEDIMENTATION RATE (test code = 2 MM/HOUR 1017) SEDIMENTATION [id number] 00:00:00 Test Item Value Reference Range Interpretation Comments SEDIMENTATION RATE (test code = 2 MM/HOUR 1017) TSH, THIRD [id number] 00:00:00 Test Item Value Reference Range Interpretation Comments TSH, THIRD GENERATION (test code 1.220 UIU/ML = 2821) TSH, THIRD [id number] 00:00:00 Test Item Value Reference Range Interpretation Comments TSH, THIRD GENERATION (test code 1.220 UIU/ML = 2821) TSH, THIRD [id number] 00:00:00 Test Item Value Reference Range Interpretation Comments TSH, THIRD GENERATION (test code 1.220 UIU/ML = 2821) CCP [id number] 00:00:00 Test Item Value Reference Range Interpretation Comments CCP IgG (test code = 43219) <0.5 U/ML CCP [id number] 00:00:00 Test Item Value Reference Range Interpretation Comments CCP IgG (test code = 53280) <0.5 U/ML CCP [id number] 00:00:00 Test Item Value Reference Range Interpretation Comments CCP IgG (test code = 06002) <0.5 U/ML RHEUMATOID FACTOR, [id number] 00:00:00 Test Item Value Reference Range Interpretation Comments RHEUMATOID FACTOR, QUANT (test code <10 IU/ML = 3502) RHEUMATOID FACTOR, [id number] 00:00:00 Test Item Value Reference Range Interpretation Comments RHEUMATOID FACTOR, QUANT (test code <10 IU/ML = 3502) RHEUMATOID FACTOR, [id number] 00:00:00 Test Item Value Reference Range Interpretation Comments RHEUMATOID FACTOR, QUANT (test code <10 IU/ML = 3502) URIC [id number] 00:00:00 Test Item Value Reference Range Interpretation Comments URIC ACID (test code = 2233) 7.4 MG/DL URIC [id number] 00:00:00 Test Item Value Reference Range Interpretation Comments URIC ACID (test code = 2233) 7.4 MG/DL HEMOGLOBIN [id number] 00:00:00 Test Item Value Reference Range Interpretation Comments HEMOGLOBIN A1c (test code = 59587) 5.4 % HEMOGLOBIN [id number] 00:00:00 Test Item Value Reference Range Interpretation Comments HEMOGLOBIN A1c (test code = 27513) 5.4 % HEMOGLOBIN [id number] 00:00:00 Test Item Value Reference Range Interpretation Comments HEMOGLOBIN A1c (test code = 43509) 5.4 % COMPREHENSIVE METABOLIC [id number] 00:00:00 Test Item Value Reference Range Interpretation Comments GLUCOSE (test code = 2217) 88 MG/DL BUN (test code = 2208) 14 MG/DL CREATININE (test code = 2214) 0.71 MG/DL eGFR (2020 CKD-EPI) (test 101 ML/MIN/1.73 code = 93721) CALC BUN/CREAT (test code = 20 RATIO 2235) SODIUM (test code = 2231) 140 MEQ/L POTASSIUM (test code = 2228) 4.4 MEQ/L CHLORIDE (test code = 2215) 106 MEQ/L CARBON DIOXIDE (test code = 19 MEQ/L 2205) CALCIUM (test code = 2209) 11.2 MG/DL PROTEIN, TOTAL (test code = 6.9 G/DL 2228) ALBUMIN (test code = 2201) 4.3 G/DL CALC GLOBULIN (test code = 2.6 G/DL 2239) CALC A/G RATIO (test code = 1.7 RATIO 2233) BILIRUBIN, TOTAL (test code = 0.6 MG/DL 2206) ALKALINE PHOSPHATASE (test 102 U/L code = 2204) AST (test code = 2218) 21 U/L ALT (test code = 2219) 33 U/L COMPREHENSIVE METABOLIC [id number] 00:00:00 Test Item Value Reference Range Interpretation Comments GLUCOSE (test code = 2217) 88 MG/DL BUN (test code = 2208) 14 MG/DL CREATININE (test code = 2214) 0.71 MG/DL eGFR (2020 CKD-EPI) (test 101 ML/MIN/1.73 code = 28937) CALC BUN/CREAT (test code = 20 RATIO 2235) SODIUM (test code = 2231) 140 MEQ/L POTASSIUM (test code = 2228) 4.4 MEQ/L CHLORIDE (test code = 2215) 106 MEQ/L CARBON DIOXIDE (test code = 19 MEQ/L 220) CALCIUM (test code = 2209) 11.2 MG/DL PROTEIN, TOTAL (test code = 6.9 G/DL 2228) ALBUMIN (test code = 2201) 4.3 G/DL CALC GLOBULIN (test code = 2.6 G/DL 224) CALC A/G RATIO (test code = 1.7 RATIO 2234) BILIRUBIN, TOTAL (test code = 0.6 MG/DL 2206) ALKALINE PHOSPHATASE (test 102 U/L code = 2204) AST (test code = 2218) 21 U/L ALT (test code = 2219) 33 U/L LIPID [id number] 00:00:00 Test Item Value Reference Range Interpretation Comments CHOLESTEROL (test code = 2210) 135 MG/DL TRIGLYCERIDES (test code = 2232) 147 MG/DL HDL CHOLESTEROL (test code = 2220) 31 MG/DL CALC LDL CHOL (test code = 2237) 80 MG/DL RISK RATIO LDL/HDL (test code = 2.58 RATIO 2238) LIPID [id number] 00:00:00 Test Item Value Reference Range Interpretation Comments CHOLESTEROL (test code = 2210) 135 MG/DL TRIGLYCERIDES (test code = 2232) 147 MG/DL HDL CHOLESTEROL (test code = 2220) 31 MG/DL CALC LDL CHOL (test code = 2237) 80 MG/DL RISK RATIO LDL/HDL (test code = 2.58 RATIO 2238) SEDIMENTATION [id number] 00:00:00 Test Item Value Reference Range Interpretation Comments SEDIMENTATION RATE (test code = 2 MM/HOUR 1017) SEDIMENTATION [id number] 00:00:00 Test Item Value Reference Range Interpretation Comments SEDIMENTATION RATE (test code = 2 MM/HOUR 1017) TSH, THIRD [id number] 00:00:00 Test Item Value Reference Range Interpretation Comments TSH, THIRD GENERATION (test code 1.220 UIU/ML = 2821) TSH, THIRD [id number] 00:00:00 Test Item Value Reference Range Interpretation Comments TSH, THIRD GENERATION (test code 1.220 UIU/ML = 2821) TSH, THIRD [id number] 00:00:00 Test Item Value Reference Range Interpretation Comments TSH, THIRD GENERATION (test code 1.220 UIU/ML = 2821) CCP [id number] 00:00:00 Test Item Value Reference Range Interpretation Comments CCP IgG (test code = 18592) <0.5 U/ML CCP [id number] 00:00:00 Test Item Value Reference Range Interpretation Comments CCP IgG (test code = 35665) <0.5 U/ML CCP [id number] 00:00:00 Test Item Value Reference Range Interpretation Comments CCP IgG (test code = 55235) <0.5 U/ML RHEUMATOID FACTOR, [id number] 00:00:00 Test Item Value Reference Range Interpretation Comments RHEUMATOID FACTOR, QUANT (test code <10 IU/ML = 3502) RHEUMATOID FACTOR, [id number] 00:00:00 Test Item Value Reference Range Interpretation Comments RHEUMATOID FACTOR, QUANT (test code <10 IU/ML = 3502) RHEUMATOID FACTOR, [id number] 00:00:00 Test Item Value Reference Range Interpretation Comments RHEUMATOID FACTOR, QUANT (test code <10 IU/ML = 3502) URIC [id number] 00:00:00 Test Item Value Reference Range Interpretation Comments URIC ACID (test code = 2233) 7.4 MG/DL URIC [id number] 00:00:00 Test Item Value Reference Range Interpretation Comments URIC ACID (test code = 2233) 7.4 MG/DL HEMOGLOBIN [id number] 00:00:00 Test Item Value Reference Range Interpretation Comments HEMOGLOBIN A1c (test code = 72736) 5.4 % HEMOGLOBIN [id number] 00:00:00 Test Item Value Reference Range Interpretation Comments HEMOGLOBIN A1c (test code = 43344) 5.4 % HEMOGLOBIN [id number] 00:00:00 Test Item Value Reference Range Interpretation Comments HEMOGLOBIN A1c (test code = 81730) 5.4 % COMPREHENSIVE METABOLIC [id number] 00:00:00 Test Item Value Reference Range Interpretation Comments GLUCOSE (test code = 2217) 88 MG/DL BUN (test code = 2208) 14 MG/DL CREATININE (test code = 2214) 0.71 MG/DL eGFR (2020 CKD-EPI) (test 101 ML/MIN/1.73 code = 23321) CALC BUN/CREAT (test code = 20 RATIO 2235) SODIUM (test code = 2231) 140 MEQ/L POTASSIUM (test code = 2228) 4.4 MEQ/L CHLORIDE (test code = 2215) 106 MEQ/L CARBON DIOXIDE (test code = 19 MEQ/L 2206) CALCIUM (test code = 2209) 11.2 MG/DL PROTEIN, TOTAL (test code = 6.9 G/DL 2228) ALBUMIN (test code = 2201) 4.3 G/DL CALC GLOBULIN (test code = 2.6 G/DL 2240) CALC A/G RATIO (test code = 1.7 RATIO 2234) BILIRUBIN, TOTAL (test code = 0.6 MG/DL 2206) ALKALINE PHOSPHATASE (test 102 U/L code = 2204) AST (test code = 2218) 21 U/L ALT (test code = 2219) 33 U/L COMPREHENSIVE METABOLIC [id number] 00:00:00 Test Item Value Reference Range Interpretation Comments GLUCOSE (test code = 2217) 88 MG/DL BUN (test code = 2208) 14 MG/DL CREATININE (test code = 2214) 0.71 MG/DL eGFR (2020 CKD-EPI) (test 101 ML/MIN/1.73 code = 50065) CALC BUN/CREAT (test code = 20 RATIO 2235) SODIUM (test code = 2231) 140 MEQ/L POTASSIUM (test code = 2228) 4.4 MEQ/L CHLORIDE (test code = 2215) 106 MEQ/L CARBON DIOXIDE (test code = 19 MEQ/L 2205) CALCIUM (test code = 2209) 11.2 MG/DL PROTEIN, TOTAL (test code = 6.9 G/DL 2228) ALBUMIN (test code = 2201) 4.3 G/DL CALC GLOBULIN (test code = 2.6 G/DL 2240) CALC A/G RATIO (test code = 1.7 RATIO 2234) BILIRUBIN, TOTAL (test code = 0.6 MG/DL 2206) ALKALINE PHOSPHATASE (test 102 U/L code = 2204) AST (test code = 2218) 21 U/L ALT (test code = 2219) 33 U/L LIPID [id number] 00:00:00 Test Item Value Reference Range Interpretation Comments CHOLESTEROL (test code = 2210) 135 MG/DL TRIGLYCERIDES (test code = 2232) 147 MG/DL HDL CHOLESTEROL (test code = 2220) 31 MG/DL CALC LDL CHOL (test code = 2237) 80 MG/DL RISK RATIO LDL/HDL (test code = 2.58 RATIO 2238) LIPID [id number] 00:00:00 Test Item Value Reference Range Interpretation Comments CHOLESTEROL (test code = 2210) 135 MG/DL TRIGLYCERIDES (test code = 2232) 147 MG/DL HDL CHOLESTEROL (test code = 2220) 31 MG/DL CALC LDL CHOL (test code = 2237) 80 MG/DL RISK RATIO LDL/HDL (test code = 2.58 RATIO 2238) SEDIMENTATION [id number] 00:00:00 Test Item Value Reference Range Interpretation Comments SEDIMENTATION RATE (test code = 2 MM/HOUR 1017) SEDIMENTATION [id number] 00:00:00 Test Item Value Reference Range Interpretation Comments SEDIMENTATION RATE (test code = 2 MM/HOUR 1017) TSH, THIRD [id number] 00:00:00 Test Item Value Reference Range Interpretation Comments TSH, THIRD GENERATION (test code 1.220 UIU/ML = 2821) TSH, THIRD [id number] 00:00:00 Test Item Value Reference Range Interpretation Comments TSH, THIRD GENERATION (test code 1.220 UIU/ML = 2821) TSH, THIRD [id number] 00:00:00 Test Item Value Reference Range Interpretation Comments TSH, THIRD GENERATION (test code 1.220 UIU/ML = 2821) CCP [id number] 00:00:00 Test Item Value Reference Range Interpretation Comments CCP IgG (test code = 71079) <0.5 U/ML CCP [id number] 00:00:00 Test Item Value Reference Range Interpretation Comments CCP IgG (test code = 14299) <0.5 U/ML CCP [id number] 00:00:00 Test Item Value Reference Range Interpretation Comments CCP IgG (test code = 22705) <0.5 U/ML RHEUMATOID FACTOR, [id number] 00:00:00 Test Item Value Reference Range Interpretation Comments RHEUMATOID FACTOR, QUANT (test code <10 IU/ML = 3502) RHEUMATOID FACTOR, [id number] 00:00:00 Test Item Value Reference Range Interpretation Comments RHEUMATOID FACTOR, QUANT (test code <10 IU/ML = 3502) RHEUMATOID FACTOR, [id number] 00:00:00 Test Item Value Reference Range Interpretation Comments RHEUMATOID FACTOR, QUANT (test code <10 IU/ML = 3502) URIC [id number] 00:00:00 Test Item Value Reference Range Interpretation Comments URIC ACID (test code = 2233) 7.4 MG/DL URIC [id number] 00:00:00 Test Item Value Reference Range Interpretation Comments URIC ACID (test code = 2233) 7.4 MG/DL HEPATITIS PANEL, [id number] 04:33:04 Test Item Value Reference Range Interpretation Comments HEPATITIS A TOTAL AB NON-REACTIVE NON-REACTIVE (test code = 2725) HEPATITIS B SURF AG NON-REACTIVE NON-REACTIVE (test code = 2739) HEP B CORE TOTAL AB NON-REACTIVE NON-REACTIVE (test code = 2729) HEPATITIS B SURFACE AB NON-REACTIVE NON-REACTIVE (test code = 2737) HEPATITIS C ANTIBODY NON-REACTIVE NON-REACTIVE (test code = 4675) INTERPRETATION (NOTE) Hepatitis A HEPATITIS A: (test serology shows no code = 2552) evidence of pas t exposure to orcurrent infec tion with hepatitis A virus; patient not immune tohepati tis A. INTERPRETATION (NOTE) Hepatitis B HEPATITIS B: (test serology shows no code = 71207) evidence of pa st exposure to orcurrent infec tion with hepatitis B virus. No evide nce of hepatitis Bimmunization i s identified. INTERPRETATION (NOTE) Hepatitis C HEPATITIS C: (test serology shows no code = 21164) evidence of ex posure to hepatitisC v irus at this time. I t can take up to 12 m onths after exposure tothe hepatitis C vir us for antibodies to become detectab le in the blood in ce rtain patients. [id number] 03:36:41 Test Item Value Reference Range Interpretation Comments GGT (test code = 39 U/L <40 UNLESS OTH ERWISE INDICATED, 2216) ALL TESTING PER [facility] [place], [place] [address] LABORATORY DIRE CTOR: TANNER VELASQUEZ M.D. CLIA NUMBER [id number] [facility] [place]. [id number] COMPREHENSIVE METABOLIC [id number] 03:35:34 Test Item Value Reference Range Interpretation Comments GLUCOSE (test code = 98 MG/DL 70-99 2216) BUN (test code = 12 MG/DL 6-20 2207) CREATININE (test 0.70 MG/DL 0.60-1.30 code = 2214) eGFR (2020 CKD-EPI) 103 >60 (test code = 77423) ML/MIN/1.73 CALC BUN/CREAT (test 17 RATIO 6-28 code = 2235) SODIUM (test code = 140 MEQ/L 701-042 6953) POTASSIUM (test code 4.6 MEQ/L 3.5-5.4 = 2227) CHLORIDE (test code 106 MEQ/L 95-107 = 2215) CARBON DIOXIDE (test 21 MEQ/L 19-31 code = 2206) CALCIUM (test code = 10.7 MG/DL 8.5-10.5 H 2208) PROTEIN, TOTAL (test 6.7 G/DL 6.1-8.3 code = 2229) ALBUMIN (test code = 4.3 G/DL 3.5-5.2 2200) CALC GLOBULIN (test 2.4 G/DL 1.9-3.7 code = 2240) CALC A/G RATIO (test 1.8 RATIO 1.0-2.6 code = 2234) BILIRUBIN, TOTAL 0.5 MG/DL See_Comment [Automated message] (test code = 2207) The syste m which generated this result transmit alex reference range : <=1.2. The refe rence range was not u sed to interpret th is result as normal/abnormal . ALKALINE PHOSPHATASE 102 U/L 40-133 (test code = 2204) AST (test code = 17 U/L 9-40 2217) ALT (test code = 29 U/L 5-40 2218) COMPREHENSIVE METABOLIC [id number] 00:00:00 Test Item Value Reference Range Interpretation Comments GLUCOSE (test code = 2217) 98 MG/DL BUN (test code = 2208) 12 MG/DL CREATININE (test code = 2214) 0.70 MG/DL eGFR (2020 CKD-EPI) (test 103 ML/MIN/1.73 code = 77653) CALC BUN/CREAT (test code = 17 RATIO 2235) SODIUM (test code = 2231) 140 MEQ/L POTASSIUM (test code = 2228) 4.6 MEQ/L CHLORIDE (test code = 2215) 106 MEQ/L CARBON DIOXIDE (test code = 21 MEQ/L 2206) CALCIUM (test code = 2209) 10.7 MG/DL PROTEIN, TOTAL (test code = 6.7 G/DL 2228) ALBUMIN (test code = 2201) 4.3 G/DL CALC GLOBULIN (test code = 2.4 G/DL 2240) CALC A/G RATIO (test code = 1.8 RATIO 2234) BILIRUBIN, TOTAL (test code = 0.5 MG/DL 2206) ALKALINE PHOSPHATASE (test 102 U/L code = 2204) AST (test code = 2218) 17 U/L ALT (test code = 2219) 29 U/L COMPREHENSIVE METABOLIC [id number] 00:00:00 Test Item Value Reference Range Interpretation Comments GLUCOSE (test code = 2217) 98 MG/DL BUN (test code = 2208) 12 MG/DL CREATININE (test code = 2214) 0.70 MG/DL eGFR (2020 CKD-EPI) (test 103 ML/MIN/1.73 code = 15019) CALC BUN/CREAT (test code = 17 RATIO 2235) SODIUM (test code = 2231) 140 MEQ/L POTASSIUM (test code = 2228) 4.6 MEQ/L CHLORIDE (test code = 2215) 106 MEQ/L CARBON DIOXIDE (test code = 21 MEQ/L 2205) CALCIUM (test code = 2209) 10.7 MG/DL PROTEIN, TOTAL (test code = 6.7 G/DL 2228) ALBUMIN (test code = 2201) 4.3 G/DL CALC GLOBULIN (test code = 2.4 G/DL 2240) CALC A/G RATIO (test code = 1.8 RATIO 2234) BILIRUBIN, TOTAL (test code = 0.5 MG/DL 2206) ALKALINE PHOSPHATASE (test 102 U/L code = 2204) AST (test code = 2218) 17 U/L ALT (test code = 2219) 29 U/L HEPATITIS PROFILE (A,B,C)2021-10-14 00:00:00 Test Item Value Reference Range Interpretation Comments HEPATITIS A TOTAL AB (test code NON-REACTIVE = 2725) HEPATITIS B SURF AG (test code = NON-REACTIVE 2739) HEP B CORE TOTAL AB (test code = NON-REACTIVE 2729) HEPATITIS B SURFACE AB (test NON-REACTIVE code = 2737) HEPATITIS C ANTIBODY (test code NON-REACTIVE = 4675) INTERPRETATION HEPATITIS A: (NOTE) (test code = 2552) INTERPRETATION HEPATITIS B: (NOTE) (test code = 79040) INTERPRETATION HEPATITIS C: (NOTE) (test code = 30362) HEPATITIS PROFILE (A,B,C)2021-10-14 00:00:00 Test Item Value Reference Range Interpretation Comments HEPATITIS A TOTAL AB (test code NON-REACTIVE = 2725) HEPATITIS B SURF AG (test code = NON-REACTIVE 2739) HEP B CORE TOTAL AB (test code = NON-REACTIVE 2729) HEPATITIS B SURFACE AB (test NON-REACTIVE code = 2737) HEPATITIS C ANTIBODY (test code NON-REACTIVE = 4675) INTERPRETATION HEPATITIS A: (NOTE) (test code = 2552) INTERPRETATION HEPATITIS B: (NOTE) (test code = 76904) INTERPRETATION HEPATITIS C: (NOTE) (test code = 09606) [id number] 00:00:00 Test Item Value Reference Range Interpretation Comments GGT (test code = 2216) 39 U/L [id number] 00:00:00 Test Item Value Reference Range Interpretation Comments GGT (test code = 2216) 39 U/L COMPREHENSIVE METABOLIC [id number] 00:00:00 Test Item Value Reference Range Interpretation Comments GLUCOSE (test code = 2217) 98 MG/DL BUN (test code = 2208) 12 MG/DL CREATININE (test code = 2214) 0.70 MG/DL eGFR (2020 CKD-EPI) (test 103 ML/MIN/1.73 code = 09139) CALC BUN/CREAT (test code = 17 RATIO 2235) SODIUM (test code = 2231) 140 MEQ/L POTASSIUM (test code = 2228) 4.6 MEQ/L CHLORIDE (test code = 2215) 106 MEQ/L CARBON DIOXIDE (test code = 21 MEQ/L 2205) CALCIUM (test code = 2209) 10.7 MG/DL PROTEIN, TOTAL (test code = 6.7 G/DL 2228) ALBUMIN (test code = 2201) 4.3 G/DL CALC GLOBULIN (test code = 2.4 G/DL 2240) CALC A/G RATIO (test code = 1.8 RATIO 2234) BILIRUBIN, TOTAL (test code = 0.5 MG/DL 220) ALKALINE PHOSPHATASE (test 102 U/L code = 2204) AST (test code = 2218) 17 U/L ALT (test code = 2219) 29 U/L COMPREHENSIVE METABOLIC [id number] 00:00:00 Test Item Value Reference Range Interpretation Comments GLUCOSE (test code = 2217) 98 MG/DL BUN (test code = 2208) 12 MG/DL CREATININE (test code = 2214) 0.70 MG/DL eGFR (2020 CKD-EPI) (test 103 ML/MIN/1.73 code = 45768) CALC BUN/CREAT (test code = 17 RATIO 2235) SODIUM (test code = 2231) 140 MEQ/L POTASSIUM (test code = 2228) 4.6 MEQ/L CHLORIDE (test code = 2215) 106 MEQ/L CARBON DIOXIDE (test code = 21 MEQ/L 2205) CALCIUM (test code = 2209) 10.7 MG/DL PROTEIN, TOTAL (test code = 6.7 G/DL 2228) ALBUMIN (test code = 2201) 4.3 G/DL CALC GLOBULIN (test code = 2.4 G/DL 2240) CALC A/G RATIO (test code = 1.8 RATIO 2234) BILIRUBIN, TOTAL (test code = 0.5 MG/DL 7) ALKALINE PHOSPHATASE (test 102 U/L code = 2204) AST (test code = 2218) 17 U/L ALT (test code = 2219) 29 U/L HEPATITIS PROFILE (A,B,C)2021-10-14 00:00:00 Test Item Value Reference Range Interpretation Comments HEPATITIS A TOTAL AB (test code NON-REACTIVE = 2724) HEPATITIS B SURF AG (test code = NON-REACTIVE 2738) HEP B CORE TOTAL AB (test code = NON-REACTIVE 2728) HEPATITIS B SURFACE AB (test NON-REACTIVE code = 2737) HEPATITIS C ANTIBODY (test code NON-REACTIVE = 4675) INTERPRETATION HEPATITIS A: (NOTE) (test code = 2552) INTERPRETATION HEPATITIS B: (NOTE) (test code = 40846) INTERPRETATION HEPATITIS C: (NOTE) (test code = 82259) HEPATITIS PROFILE (A,B,C)2021-10-14 00:00:00 Test Item Value Reference Range Interpretation Comments HEPATITIS A TOTAL AB (test code NON-REACTIVE = 2725) HEPATITIS B SURF AG (test code = NON-REACTIVE 2739) HEP B CORE TOTAL AB (test code = NON-REACTIVE 2729) HEPATITIS B SURFACE AB (test NON-REACTIVE code = 2737) HEPATITIS C ANTIBODY (test code NON-REACTIVE = 4675) INTERPRETATION HEPATITIS A: (NOTE) (test code = 2552) INTERPRETATION HEPATITIS B: (NOTE) (test code = 69837) INTERPRETATION HEPATITIS C: (NOTE) (test code = 90307) [id number] 00:00:00 Test Item Value Reference Range Interpretation Comments GGT (test code = 2216) 39 U/L [id number] 00:00:00 Test Item Value Reference Range Interpretation Comments GGT (test code = 2216) 39 U/L COMPREHENSIVE METABOLIC [id number] 00:00:00 Test Item Value Reference Range Interpretation Comments GLUCOSE (test code = 2217) 98 MG/DL BUN (test code = 2208) 12 MG/DL CREATININE (test code = 2214) 0.70 MG/DL eGFR (2020 CKD-EPI) (test 103 ML/MIN/1.73 code = 03557) CALC BUN/CREAT (test code = 17 RATIO 5) SODIUM (test code = 2231) 140 MEQ/L POTASSIUM (test code = 2228) 4.6 MEQ/L CHLORIDE (test code = 2215) 106 MEQ/L CARBON DIOXIDE (test code = 21 MEQ/L 2205) CALCIUM (test code = 2209) 10.7 MG/DL PROTEIN, TOTAL (test code = 6.7 G/DL 2228) ALBUMIN (test code = 2201) 4.3 G/DL CALC GLOBULIN (test code = 2.4 G/DL 2239) CALC A/G RATIO (test code = 1.8 RATIO 2233) BILIRUBIN, TOTAL (test code = 0.5 MG/DL 2206) ALKALINE PHOSPHATASE (test 102 U/L code = 2204) AST (test code = 2218) 17 U/L ALT (test code = 2219) 29 U/L COMPREHENSIVE METABOLIC [id number] 00:00:00 Test Item Value Reference Range Interpretation Comments GLUCOSE (test code = 2217) 98 MG/DL BUN (test code = 2208) 12 MG/DL CREATININE (test code = 2214) 0.70 MG/DL eGFR (2020 CKD-EPI) (test 103 ML/MIN/1.73 code = 00227) CALC BUN/CREAT (test code = 17 RATIO 2235) SODIUM (test code = 2231) 140 MEQ/L POTASSIUM (test code = 2228) 4.6 MEQ/L CHLORIDE (test code = 2215) 106 MEQ/L CARBON DIOXIDE (test code = 21 MEQ/L 2205) CALCIUM (test code = 2209) 10.7 MG/DL PROTEIN, TOTAL (test code = 6.7 G/DL 2228) ALBUMIN (test code = 220) 4.3 G/DL CALC GLOBULIN (test code = 2.4 G/DL 2239) CALC A/G RATIO (test code = 1.8 RATIO 2233) BILIRUBIN, TOTAL (test code = 0.5 MG/DL 2206) ALKALINE PHOSPHATASE (test 102 U/L code = 2204) AST (test code = 2218) 17 U/L ALT (test code = 2219) 29 U/L HEPATITIS PROFILE (A,B,C)2021-10-14 00:00:00 Test Item Value Reference Range Interpretation Comments HEPATITIS A TOTAL AB (test code NON-REACTIVE = 2725) HEPATITIS B SURF AG (test code = NON-REACTIVE 2738) HEP B CORE TOTAL AB (test code = NON-REACTIVE 272) HEPATITIS B SURFACE AB (test NON-REACTIVE code = 2737) HEPATITIS C ANTIBODY (test code NON-REACTIVE = 4675) INTERPRETATION HEPATITIS A: (NOTE) (test code = 2552) INTERPRETATION HEPATITIS B: (NOTE) (test code = 52105) INTERPRETATION HEPATITIS C: (NOTE) (test code = 86960) HEPATITIS PROFILE (A,B,C)2021-10-14 00:00:00 Test Item Value Reference Range Interpretation Comments HEPATITIS A TOTAL AB (test code NON-REACTIVE = 2725) HEPATITIS B SURF AG (test code = NON-REACTIVE 273) HEP B CORE TOTAL AB (test code = NON-REACTIVE 2728) HEPATITIS B SURFACE AB (test NON-REACTIVE code = 2737) HEPATITIS C ANTIBODY (test code NON-REACTIVE = 4675) INTERPRETATION HEPATITIS A: (NOTE) (test code = 2552) INTERPRETATION HEPATITIS B: (NOTE) (test code = 56596) INTERPRETATION HEPATITIS C: (NOTE) (test code = 05634) [id number] 00:00:00 Test Item Value Reference Range Interpretation Comments GGT (test code = 2216) 39 U/L [id number] 00:00:00 Test Item Value Reference Range Interpretation Comments GGT (test code = 2216) 39 U/L COMPREHENSIVE METABOLIC [id number] 00:00:00 Test Item Value Reference Range Interpretation Comments GLUCOSE (test code = 2217) 98 MG/DL BUN (test code = 2208) 12 MG/DL CREATININE (test code = 2214) 0.70 MG/DL eGFR (2020 CKD-EPI) (test 103 ML/MIN/1.73 code = 21390) CALC BUN/CREAT (test code = 17 RATIO 2235) SODIUM (test code = 2231) 140 MEQ/L POTASSIUM (test code = 2228) 4.6 MEQ/L CHLORIDE (test code = 2215) 106 MEQ/L CARBON DIOXIDE (test code = 21 MEQ/L 2205) CALCIUM (test code = 2209) 10.7 MG/DL PROTEIN, TOTAL (test code = 6.7 G/DL 2228) ALBUMIN (test code = 2201) 4.3 G/DL CALC GLOBULIN (test code = 2.4 G/DL 0) CALC A/G RATIO (test code = 1.8 RATIO 2234) BILIRUBIN, TOTAL (test code = 0.5 MG/DL 2206) ALKALINE PHOSPHATASE (test 102 U/L code = 2204) AST (test code = 2218) 17 U/L ALT (test code = 2219) 29 U/L COMPREHENSIVE METABOLIC [id number] 00:00:00 Test Item Value Reference Range Interpretation Comments GLUCOSE (test code = 2217) 98 MG/DL BUN (test code = 2208) 12 MG/DL CREATININE (test code = 2214) 0.70 MG/DL eGFR (2020 CKD-EPI) (test 103 ML/MIN/1.73 code = 97553) CALC BUN/CREAT (test code = 17 RATIO 2235) SODIUM (test code = 2231) 140 MEQ/L POTASSIUM (test code = 2228) 4.6 MEQ/L CHLORIDE (test code = 2215) 106 MEQ/L CARBON DIOXIDE (test code = 21 MEQ/L 2205) CALCIUM (test code = 2209) 10.7 MG/DL PROTEIN, TOTAL (test code = 6.7 G/DL 2228) ALBUMIN (test code = 2201) 4.3 G/DL CALC GLOBULIN (test code = 2.4 G/DL 2239) CALC A/G RATIO (test code = 1.8 RATIO 2233) BILIRUBIN, TOTAL (test code = 0.5 MG/DL 2206) ALKALINE PHOSPHATASE (test 102 U/L code = 2204) AST (test code = 2218) 17 U/L ALT (test code = 2219) 29 U/L HEPATITIS PROFILE (A,B,C)2021-10-14 00:00:00 Test Item Value Reference Range Interpretation Comments HEPATITIS A TOTAL AB (test code NON-REACTIVE = 2725) HEPATITIS B SURF AG (test code = NON-REACTIVE 2739) HEP B CORE TOTAL AB (test code = NON-REACTIVE 2729) HEPATITIS B SURFACE AB (test NON-REACTIVE code = 2737) HEPATITIS C ANTIBODY (test code NON-REACTIVE = 4675) INTERPRETATION HEPATITIS A: (NOTE) (test code = 2552) INTERPRETATION HEPATITIS B: (NOTE) (test code = 65238) INTERPRETATION HEPATITIS C: (NOTE) (test code = 28210) HEPATITIS PROFILE (A,B,C)2021-10-14 00:00:00 Test Item Value Reference Range Interpretation Comments HEPATITIS A TOTAL AB (test code NON-REACTIVE = 2725) HEPATITIS B SURF AG (test code = NON-REACTIVE 2739) HEP B CORE TOTAL AB (test code = NON-REACTIVE 2729) HEPATITIS B SURFACE AB (test NON-REACTIVE code = 2737) HEPATITIS C ANTIBODY (test code NON-REACTIVE = 4675) INTERPRETATION HEPATITIS A: (NOTE) (test code = 2552) INTERPRETATION HEPATITIS B: (NOTE) (test code = 44339) INTERPRETATION HEPATITIS C: (NOTE) (test code = 52536) [id number] 00:00:00 Test Item Value Reference Range Interpretation Comments GGT (test code = 2216) 39 U/L [id number] 00:00:00 Test Item Value Reference Range Interpretation Comments GGT (test code = 2216) 39 U/L COMPREHENSIVE METABOLIC [id number] 00:00:00 Test Item Value Reference Range Interpretation Comments GLUCOSE (test code = 2217) 98 MG/DL BUN (test code = 2208) 12 MG/DL CREATININE (test code = 2214) 0.70 MG/DL eGFR (2020 CKD-EPI) (test 103 ML/MIN/1.73 code = 61061) CALC BUN/CREAT (test code = 17 RATIO 2235) SODIUM (test code = 2231) 140 MEQ/L POTASSIUM (test code = 2228) 4.6 MEQ/L CHLORIDE (test code = 2215) 106 MEQ/L CARBON DIOXIDE (test code = 21 MEQ/L 220) CALCIUM (test code = 2209) 10.7 MG/DL PROTEIN, TOTAL (test code = 6.7 G/DL 2228) ALBUMIN (test code = 2201) 4.3 G/DL CALC GLOBULIN (test code = 2.4 G/DL 2240) CALC A/G RATIO (test code = 1.8 RATIO 2234) BILIRUBIN, TOTAL (test code = 0.5 MG/DL 2206) ALKALINE PHOSPHATASE (test 102 U/L code = 2204) AST (test code = 2218) 17 U/L ALT (test code = 2219) 29 U/L COMPREHENSIVE METABOLIC [id number] 00:00:00 Test Item Value Reference Range Interpretation Comments GLUCOSE (test code = 2217) 98 MG/DL BUN (test code = 2208) 12 MG/DL CREATININE (test code = 2214) 0.70 MG/DL eGFR (2020 CKD-EPI) (test 103 ML/MIN/1.73 code = 09855) CALC BUN/CREAT (test code = 17 RATIO 2235) SODIUM (test code = 2231) 140 MEQ/L POTASSIUM (test code = 2228) 4.6 MEQ/L CHLORIDE (test code = 2215) 106 MEQ/L CARBON DIOXIDE (test code = 21 MEQ/L 2206) CALCIUM (test code = 2209) 10.7 MG/DL PROTEIN, TOTAL (test code = 6.7 G/DL 2228) ALBUMIN (test code = 2201) 4.3 G/DL CALC GLOBULIN (test code = 2.4 G/DL 2240) CALC A/G RATIO (test code = 1.8 RATIO 2234) BILIRUBIN, TOTAL (test code = 0.5 MG/DL 2206) ALKALINE PHOSPHATASE (test 102 U/L code = 2204) AST (test code = 2218) 17 U/L ALT (test code = 2219) 29 U/L HEPATITIS PROFILE (A,B,C)2021-10-14 00:00:00 Test Item Value Reference Range Interpretation Comments HEPATITIS A TOTAL AB (test code NON-REACTIVE = 2725) HEPATITIS B SURF AG (test code = NON-REACTIVE 2739) HEP B CORE TOTAL AB (test code = NON-REACTIVE 2729) HEPATITIS B SURFACE AB (test NON-REACTIVE code = 2737) HEPATITIS C ANTIBODY (test code NON-REACTIVE = 4675) INTERPRETATION HEPATITIS A: (NOTE) (test code = 2552) INTERPRETATION HEPATITIS B: (NOTE) (test code = 89670) INTERPRETATION HEPATITIS C: (NOTE) (test code = 03211) HEPATITIS PROFILE (A,B,C)2021-10-14 00:00:00 Test Item Value Reference Range Interpretation Comments HEPATITIS A TOTAL AB (test code NON-REACTIVE = 2725) HEPATITIS B SURF AG (test code = NON-REACTIVE 2739) HEP B CORE TOTAL AB (test code = NON-REACTIVE 2729) HEPATITIS B SURFACE AB (test NON-REACTIVE code = 2737) HEPATITIS C ANTIBODY (test code NON-REACTIVE = 4675) INTERPRETATION HEPATITIS A: (NOTE) (test code = 2552) INTERPRETATION HEPATITIS B: (NOTE) (test code = 49961) INTERPRETATION HEPATITIS C: (NOTE) (test code = 34682) [id number] 00:00:00 Test Item Value Reference Range Interpretation Comments GGT (test code = 2216) 39 U/L [id number] 00:00:00 Test Item Value Reference Range Interpretation Comments GGT (test code = 2216) 39 U/L COMPREHENSIVE METABOLIC [id number] 00:00:00 Test Item Value Reference Range Interpretation Comments GLUCOSE (test code = 2217) 98 MG/DL BUN (test code = 2208) 12 MG/DL CREATININE (test code = 2214) 0.70 MG/DL eGFR (2020 CKD-EPI) (test 103 ML/MIN/1.73 code = 75538) CALC BUN/CREAT (test code = 17 RATIO 2235) SODIUM (test code = 2231) 140 MEQ/L POTASSIUM (test code = 2228) 4.6 MEQ/L CHLORIDE (test code = 2215) 106 MEQ/L CARBON DIOXIDE (test code = 21 MEQ/L 2206) CALCIUM (test code = 2209) 10.7 MG/DL PROTEIN, TOTAL (test code = 6.7 G/DL 222) ALBUMIN (test code = 2201) 4.3 G/DL CALC GLOBULIN (test code = 2.4 G/DL 2240) CALC A/G RATIO (test code = 1.8 RATIO 2234) BILIRUBIN, TOTAL (test code = 0.5 MG/DL 2206) ALKALINE PHOSPHATASE (test 102 U/L code = 2204) AST (test code = 2218) 17 U/L ALT (test code = 2219) 29 U/L COMPREHENSIVE METABOLIC [id number] 00:00:00 Test Item Value Reference Range Interpretation Comments GLUCOSE (test code = 2217) 98 MG/DL BUN (test code = 2208) 12 MG/DL CREATININE (test code = 2214) 0.70 MG/DL eGFR (2020 CKD-EPI) (test 103 ML/MIN/1.73 code = 90599) CALC BUN/CREAT (test code = 17 RATIO 2235) SODIUM (test code = 2231) 140 MEQ/L POTASSIUM (test code = 2228) 4.6 MEQ/L CHLORIDE (test code = 2215) 106 MEQ/L CARBON DIOXIDE (test code = 21 MEQ/L 6) CALCIUM (test code = 2209) 10.7 MG/DL PROTEIN, TOTAL (test code = 6.7 G/DL 2228) ALBUMIN (test code = 2201) 4.3 G/DL CALC GLOBULIN (test code = 2.4 G/DL 2240) CALC A/G RATIO (test code = 1.8 RATIO 2234) BILIRUBIN, TOTAL (test code = 0.5 MG/DL 7) ALKALINE PHOSPHATASE (test 102 U/L code = 2204) AST (test code = 2218) 17 U/L ALT (test code = 2219) 29 U/L HEPATITIS PROFILE (A,B,C)2021-10-14 00:00:00 Test Item Value Reference Range Interpretation Comments HEPATITIS A TOTAL AB (test code NON-REACTIVE = 2725) HEPATITIS B SURF AG (test code = NON-REACTIVE 482) HEP B CORE TOTAL AB (test code = NON-REACTIVE 2728) HEPATITIS B SURFACE AB (test NON-REACTIVE code = 2737) HEPATITIS C ANTIBODY (test code NON-REACTIVE = 4675) INTERPRETATION HEPATITIS A: (NOTE) (test code = 2552) INTERPRETATION HEPATITIS B: (NOTE) (test code = 17097) INTERPRETATION HEPATITIS C: (NOTE) (test code = 92006) HEPATITIS PROFILE (A,B,C)2021-10-14 00:00:00 Test Item Value Reference Range Interpretation Comments HEPATITIS A TOTAL AB (test code NON-REACTIVE = 2725) HEPATITIS B SURF AG (test code = NON-REACTIVE 2739) HEP B CORE TOTAL AB (test code = NON-REACTIVE 2729) HEPATITIS B SURFACE AB (test NON-REACTIVE code = 2737) HEPATITIS C ANTIBODY (test code NON-REACTIVE = 4675) INTERPRETATION HEPATITIS A: (NOTE) (test code = 2552) INTERPRETATION HEPATITIS B: (NOTE) (test code = 31270) INTERPRETATION HEPATITIS C: (NOTE) (test code = 77318) [id number] 00:00:00 Test Item Value Reference Range Interpretation Comments GGT (test code = 2216) 39 U/L [id number] 00:00:00 Test Item Value Reference Range Interpretation Comments GGT (test code = 2216) 39 U/L COMPREHENSIVE METABOLIC [id number] 00:00:00 Test Item Value Reference Range Interpretation Comments GLUCOSE (test code = 2217) 98 MG/DL BUN (test code = 2208) 12 MG/DL CREATININE (test code = 2214) 0.70 MG/DL eGFR (2020 CKD-EPI) (test 103 ML/MIN/1.73 code = 95552) CALC BUN/CREAT (test code = 17 RATIO 2235) SODIUM (test code = 2231) 140 MEQ/L POTASSIUM (test code = 2228) 4.6 MEQ/L CHLORIDE (test code = 2215) 106 MEQ/L CARBON DIOXIDE (test code = 21 MEQ/L 2205) CALCIUM (test code = 2209) 10.7 MG/DL PROTEIN, TOTAL (test code = 6.7 G/DL 2228) ALBUMIN (test code = 2201) 4.3 G/DL CALC GLOBULIN (test code = 2.4 G/DL 2239) CALC A/G RATIO (test code = 1.8 RATIO 2233) BILIRUBIN, TOTAL (test code = 0.5 MG/DL 2207) ALKALINE PHOSPHATASE (test 102 U/L code = 2204) AST (test code = 2218) 17 U/L ALT (test code = 2219) 29 U/L COMPREHENSIVE METABOLIC [id number] 00:00:00 Test Item Value Reference Range Interpretation Comments GLUCOSE (test code = 2217) 98 MG/DL BUN (test code = 2208) 12 MG/DL CREATININE (test code = 2214) 0.70 MG/DL eGFR (2020 CKD-EPI) (test 103 ML/MIN/1.73 code = 52149) CALC BUN/CREAT (test code = 17 RATIO 2235) SODIUM (test code = 2231) 140 MEQ/L POTASSIUM (test code = 2228) 4.6 MEQ/L CHLORIDE (test code = 2215) 106 MEQ/L CARBON DIOXIDE (test code = 21 MEQ/L 2205) CALCIUM (test code = 2209) 10.7 MG/DL PROTEIN, TOTAL (test code = 6.7 G/DL 222) ALBUMIN (test code = 2201) 4.3 G/DL CALC GLOBULIN (test code = 2.4 G/DL 2240) CALC A/G RATIO (test code = 1.8 RATIO 2234) BILIRUBIN, TOTAL (test code = 0.5 MG/DL 2206) ALKALINE PHOSPHATASE (test 102 U/L code = 2204) AST (test code = 2218) 17 U/L ALT (test code = 2219) 29 U/L HEPATITIS PROFILE (A,B,C)2021-10-14 00:00:00 Test Item Value Reference Range Interpretation Comments HEPATITIS A TOTAL AB (test code NON-REACTIVE = 2725) HEPATITIS B SURF AG (test code = NON-REACTIVE 2739) HEP B CORE TOTAL AB (test code = NON-REACTIVE 2729) HEPATITIS B SURFACE AB (test NON-REACTIVE code = 2737) HEPATITIS C ANTIBODY (test code NON-REACTIVE = 4675) INTERPRETATION HEPATITIS A: (NOTE) (test code = 2552) INTERPRETATION HEPATITIS B: (NOTE) (test code = 16895) INTERPRETATION HEPATITIS C: (NOTE) (test code = 26219) HEPATITIS PROFILE (A,B,C)2021-10-14 00:00:00 Test Item Value Reference Range Interpretation Comments HEPATITIS A TOTAL AB (test code NON-REACTIVE = 2725) HEPATITIS B SURF AG (test code = NON-REACTIVE 2739) HEP B CORE TOTAL AB (test code = NON-REACTIVE 2729) HEPATITIS B SURFACE AB (test NON-REACTIVE code = 2737) HEPATITIS C ANTIBODY (test code NON-REACTIVE = 4675) INTERPRETATION HEPATITIS A: (NOTE) (test code = 2552) INTERPRETATION HEPATITIS B: (NOTE) (test code = 18095) INTERPRETATION HEPATITIS C: (NOTE) (test code = 54433) [id number] 00:00:00 Test Item Value Reference Range Interpretation Comments GGT (test code = 2216) 39 U/L [id number] 00:00:00 Test Item Value Reference Range Interpretation Comments GGT (test code = 2216) 39 U/L COMPREHENSIVE METABOLIC [id number] 00:00:00 Test Item Value Reference Range Interpretation Comments GLUCOSE (test code = 2217) 98 MG/DL BUN (test code = 2208) 12 MG/DL CREATININE (test code = 2214) 0.70 MG/DL eGFR (2020 CKD-EPI) (test 103 ML/MIN/1.73 code = 32903) CALC BUN/CREAT (test code = 17 RATIO 2235) SODIUM (test code = 2231) 140 MEQ/L POTASSIUM (test code = 2228) 4.6 MEQ/L CHLORIDE (test code = 2215) 106 MEQ/L CARBON DIOXIDE (test code = 21 MEQ/L 2205) CALCIUM (test code = 2209) 10.7 MG/DL PROTEIN, TOTAL (test code = 6.7 G/DL 2228) ALBUMIN (test code = 2201) 4.3 G/DL CALC GLOBULIN (test code = 2.4 G/DL 2240) CALC A/G RATIO (test code = 1.8 RATIO 2234) BILIRUBIN, TOTAL (test code = 0.5 MG/DL 2206) ALKALINE PHOSPHATASE (test 102 U/L code = 2204) AST (test code = 2218) 17 U/L ALT (test code = 2219) 29 U/L COMPREHENSIVE METABOLIC [id number] 00:00:00 Test Item Value Reference Range Interpretation Comments GLUCOSE (test code = 2217) 98 MG/DL BUN (test code = 2208) 12 MG/DL CREATININE (test code = 2214) 0.70 MG/DL eGFR (2020 CKD-EPI) (test 103 ML/MIN/1.73 code = 61061) CALC BUN/CREAT (test code = 17 RATIO 2235) SODIUM (test code = 2231) 140 MEQ/L POTASSIUM (test code = 2228) 4.6 MEQ/L CHLORIDE (test code = 2215) 106 MEQ/L CARBON DIOXIDE (test code = 21 MEQ/L 2205) CALCIUM (test code = 2209) 10.7 MG/DL PROTEIN, TOTAL (test code = 6.7 G/DL 2228) ALBUMIN (test code = 2201) 4.3 G/DL CALC GLOBULIN (test code = 2.4 G/DL 224) CALC A/G RATIO (test code = 1.8 RATIO 2233) BILIRUBIN, TOTAL (test code = 0.5 MG/DL 2206) ALKALINE PHOSPHATASE (test 102 U/L code = 2204) AST (test code = 2218) 17 U/L ALT (test code = 2219) 29 U/L HEPATITIS PROFILE (A,B,C)2021-10-14 00:00:00 Test Item Value Reference Range Interpretation Comments HEPATITIS A TOTAL AB (test code NON-REACTIVE = 2725) HEPATITIS B SURF AG (test code = NON-REACTIVE 2739) HEP B CORE TOTAL AB (test code = NON-REACTIVE 2729) HEPATITIS B SURFACE AB (test NON-REACTIVE code = 2737) HEPATITIS C ANTIBODY (test code NON-REACTIVE = 4675) INTERPRETATION HEPATITIS A: (NOTE) (test code = 2552) INTERPRETATION HEPATITIS B: (NOTE) (test code = 68215) INTERPRETATION HEPATITIS C: (NOTE) (test code = 13857) HEPATITIS PROFILE (A,B,C)2021-10-14 00:00:00 Test Item Value Reference Range Interpretation Comments HEPATITIS A TOTAL AB (test code NON-REACTIVE = 2725) HEPATITIS B SURF AG (test code = NON-REACTIVE 2739) HEP B CORE TOTAL AB (test code = NON-REACTIVE 2729) HEPATITIS B SURFACE AB (test NON-REACTIVE code = 2737) HEPATITIS C ANTIBODY (test code NON-REACTIVE = 4675) INTERPRETATION HEPATITIS A: (NOTE) (test code = 2552) INTERPRETATION HEPATITIS B: (NOTE) (test code = 39717) INTERPRETATION HEPATITIS C: (NOTE) (test code = 58874) [id number] 00:00:00 Test Item Value Reference Range Interpretation Comments GGT (test code = 2216) 39 U/L [id number] 00:00:00 Test Item Value Reference Range Interpretation Comments GGT (test code = 2216) 39 U/L COMPREHENSIVE METABOLIC [id number] 00:00:00 Test Item Value Reference Range Interpretation Comments GLUCOSE (test code = 2217) 98 MG/DL BUN (test code = 2208) 12 MG/DL CREATININE (test code = 2214) 0.70 MG/DL eGFR (2020 CKD-EPI) (test 103 ML/MIN/1.73 code = 03516) CALC BUN/CREAT (test code = 17 RATIO 2235) SODIUM (test code = 2231) 140 MEQ/L POTASSIUM (test code = 2228) 4.6 MEQ/L CHLORIDE (test code = 2215) 106 MEQ/L CARBON DIOXIDE (test code = 21 MEQ/L 2205) CALCIUM (test code = 2209) 10.7 MG/DL PROTEIN, TOTAL (test code = 6.7 G/DL 2228) ALBUMIN (test code = 2201) 4.3 G/DL CALC GLOBULIN (test code = 2.4 G/DL 2239) CALC A/G RATIO (test code = 1.8 RATIO 2233) BILIRUBIN, TOTAL (test code = 0.5 MG/DL 2206) ALKALINE PHOSPHATASE (test 102 U/L code = 2204) AST (test code = 2218) 17 U/L ALT (test code = 2219) 29 U/L COMPREHENSIVE METABOLIC [id number] 00:00:00 Test Item Value Reference Range Interpretation Comments GLUCOSE (test code = 2217) 98 MG/DL BUN (test code = 2208) 12 MG/DL CREATININE (test code = 2214) 0.70 MG/DL eGFR (2020 CKD-EPI) (test 103 ML/MIN/1.73 code = 62857) CALC BUN/CREAT (test code = 17 RATIO 2235) SODIUM (test code = 2231) 140 MEQ/L POTASSIUM (test code = 2228) 4.6 MEQ/L CHLORIDE (test code = 2215) 106 MEQ/L CARBON DIOXIDE (test code = 21 MEQ/L 2205) CALCIUM (test code = 2209) 10.7 MG/DL PROTEIN, TOTAL (test code = 6.7 G/DL 2229) ALBUMIN (test code = 2201) 4.3 G/DL CALC GLOBULIN (test code = 2.4 G/DL 2240) CALC A/G RATIO (test code = 1.8 RATIO 4) BILIRUBIN, TOTAL (test code = 0.5 MG/DL 2206) ALKALINE PHOSPHATASE (test 102 U/L code = 2204) AST (test code = 2218) 17 U/L ALT (test code = 2219) 29 U/L HEPATITIS PROFILE (A,B,C)2021-10-14 00:00:00 Test Item Value Reference Range Interpretation Comments HEPATITIS A TOTAL AB (test code NON-REACTIVE = 2725) HEPATITIS B SURF AG (test code = NON-REACTIVE 2739) HEP B CORE TOTAL AB (test code = NON-REACTIVE 2729) HEPATITIS B SURFACE AB (test NON-REACTIVE code = 2737) HEPATITIS C ANTIBODY (test code NON-REACTIVE = 4675) INTERPRETATION HEPATITIS A: (NOTE) (test code = 2552) INTERPRETATION HEPATITIS B: (NOTE) (test code = 38096) INTERPRETATION HEPATITIS C: (NOTE) (test code = 69504) HEPATITIS PROFILE (A,B,C)2021-10-14 00:00:00 Test Item Value Reference Range Interpretation Comments HEPATITIS A TOTAL AB (test code NON-REACTIVE = 2725) HEPATITIS B SURF AG (test code = NON-REACTIVE 2739) HEP B CORE TOTAL AB (test code = NON-REACTIVE 2729) HEPATITIS B SURFACE AB (test NON-REACTIVE code = 2737) HEPATITIS C ANTIBODY (test code NON-REACTIVE = 4675) INTERPRETATION HEPATITIS A: (NOTE) (test code = 2552) INTERPRETATION HEPATITIS B: (NOTE) (test code = 07271) INTERPRETATION HEPATITIS C: (NOTE) (test code = 02818) [id number] 00:00:00 Test Item Value Reference Range Interpretation Comments GGT (test code = 2216) 39 U/L [id number] 00:00:00 Test Item Value Reference Range Interpretation Comments GGT (test code = 2216) 39 U/L COMPREHENSIVE METABOLIC [id number] 00:00:00 Test Item Value Reference Range Interpretation Comments GLUCOSE (test code = 2217) 98 MG/DL BUN (test code = 2208) 12 MG/DL CREATININE (test code = 2214) 0.70 MG/DL eGFR (2020 CKD-EPI) (test 103 ML/MIN/1.73 code = 21355) CALC BUN/CREAT (test code = 17 RATIO 2235) SODIUM (test code = 2231) 140 MEQ/L POTASSIUM (test code = 2228) 4.6 MEQ/L CHLORIDE (test code = 2215) 106 MEQ/L CARBON DIOXIDE (test code = 21 MEQ/L 2206) CALCIUM (test code = 2209) 10.7 MG/DL PROTEIN, TOTAL (test code = 6.7 G/DL 222) ALBUMIN (test code = 2201) 4.3 G/DL CALC GLOBULIN (test code = 2.4 G/DL 2240) CALC A/G RATIO (test code = 1.8 RATIO 2234) BILIRUBIN, TOTAL (test code = 0.5 MG/DL 2206) ALKALINE PHOSPHATASE (test 102 U/L code = 2204) AST (test code = 2218) 17 U/L ALT (test code = 2219) 29 U/L COMPREHENSIVE METABOLIC [id number] 00:00:00 Test Item Value Reference Range Interpretation Comments GLUCOSE (test code = 2217) 98 MG/DL BUN (test code = 2208) 12 MG/DL CREATININE (test code = 2214) 0.70 MG/DL eGFR (2020 CKD-EPI) (test 103 ML/MIN/1.73 code = 90463) CALC BUN/CREAT (test code = 17 RATIO 2235) SODIUM (test code = 2231) 140 MEQ/L POTASSIUM (test code = 2228) 4.6 MEQ/L CHLORIDE (test code = 2215) 106 MEQ/L CARBON DIOXIDE (test code = 21 MEQ/L 6) CALCIUM (test code = 2209) 10.7 MG/DL PROTEIN, TOTAL (test code = 6.7 G/DL 2229) ALBUMIN (test code = 2201) 4.3 G/DL CALC GLOBULIN (test code = 2.4 G/DL 2240) CALC A/G RATIO (test code = 1.8 RATIO 2234) BILIRUBIN, TOTAL (test code = 0.5 MG/DL 2206) ALKALINE PHOSPHATASE (test 102 U/L code = 2204) AST (test code = 2218) 17 U/L ALT (test code = 2219) 29 U/L HEPATITIS PROFILE (A,B,C)2021-10-14 00:00:00 Test Item Value Reference Range Interpretation Comments HEPATITIS A TOTAL AB (test code NON-REACTIVE = 2725) HEPATITIS B SURF AG (test code = NON-REACTIVE 2739) HEP B CORE TOTAL AB (test code = NON-REACTIVE 2729) HEPATITIS B SURFACE AB (test NON-REACTIVE code = 2737) HEPATITIS C ANTIBODY (test code NON-REACTIVE = 4675) INTERPRETATION HEPATITIS A: (NOTE) (test code = 2552) INTERPRETATION HEPATITIS B: (NOTE) (test code = 88669) INTERPRETATION HEPATITIS C: (NOTE) (test code = 71570) HEPATITIS PROFILE (A,B,C)2021-10-14 00:00:00 Test Item Value Reference Range Interpretation Comments HEPATITIS A TOTAL AB (test code NON-REACTIVE = 2725) HEPATITIS B SURF AG (test code = NON-REACTIVE 2739) HEP B CORE TOTAL AB (test code = NON-REACTIVE 2729) HEPATITIS B SURFACE AB (test NON-REACTIVE code = 2737) HEPATITIS C ANTIBODY (test code NON-REACTIVE = 4675) INTERPRETATION HEPATITIS A: (NOTE) (test code = 2552) INTERPRETATION HEPATITIS B: (NOTE) (test code = 43936) INTERPRETATION HEPATITIS C: (NOTE) (test code = 30957) [id number] 00:00:00 Test Item Value Reference Range Interpretation Comments GGT (test code = 2216) 39 U/L [id number] 00:00:00 Test Item Value Reference Range Interpretation Comments GGT (test code = 2216) 39 U/L CALCIUM, URINE, 24 [id number] 07:02:15 Test Item Value Reference Range Interpretation Comments CALCIUM, URINE, 12 MG/DL NOT ESTAB CONC. (test code = 2098) CALCIUM, URINE, 360 MG/24 HR 100-300 H 24 HR (test code = 2065) TOTAL URINE 3000 ML 500-3500 UNLESS OTHERWI SE VOLUME (test code INDICATED, ALL TESTING = 2055) PERFORMED [facility] [address] [place] [address] [id number] 4 LABORATORY DIRE CTOR: TANNER HOPKINS M.D. CLIA NUMBER [id number] [facility] [place] [id number] CALCIUM, URINE, 24 [id number] 00:00:00 Test Item Value Reference Range Interpretation Comments CALCIUM, URINE, CONC. (test code 12 MG/DL = 2098) CALCIUM, URINE, 24 HR (test code 360 MG/24HR = 2065) TOTAL URINE VOLUME (test code = 3000 ML 2055) CALCIUM, URINE, 24 [id number] 00:00:00 Test Item Value Reference Range Interpretation Comments CALCIUM, URINE, CONC. (test code 12 MG/DL = 2098) CALCIUM, URINE, 24 HR (test code 360 MG/24HR = 2065) TOTAL URINE VOLUME (test code = 3000 ML 2055) CALCIUM, URINE, 24 [id number] 00:00:00 Test Item Value Reference Range Interpretation Comments CALCIUM, URINE, CONC. (test code 12 MG/DL = 2098) CALCIUM, URINE, 24 HR (test code 360 MG/24HR = 2065) TOTAL URINE VOLUME (test code = 3000 ML 2055) CALCIUM, URINE, 24 [id number] 00:00:00 Test Item Value Reference Range Interpretation Comments CALCIUM, URINE, CONC. (test code 12 MG/DL = 2098) CALCIUM, URINE, 24 HR (test code 360 MG/24HR = 2065) TOTAL URINE VOLUME (test code = 3000 ML 2055) CALCIUM, URINE, 24 [id number] 00:00:00 Test Item Value Reference Range Interpretation Comments CALCIUM, URINE, CONC. (test code 12 MG/DL = 2098) CALCIUM, URINE, 24 HR (test code 360 MG/24HR = 2065) TOTAL URINE VOLUME (test code = 3000 ML 2055) CALCIUM, URINE, 24 [id number] 00:00:00 Test Item Value Reference Range Interpretation Comments CALCIUM, URINE, CONC. (test code 12 MG/DL = 2098) CALCIUM, URINE, 24 HR (test code 360 MG/24HR = 2065) TOTAL URINE VOLUME (test code = 3000 ML 2055) CALCIUM, URINE, 24 [id number] 00:00:00 Test Item Value Reference Range Interpretation Comments CALCIUM, URINE, CONC. (test code 12 MG/DL = 2098) CALCIUM, URINE, 24 HR (test code 360 MG/24HR = 2065) TOTAL URINE VOLUME (test code = 3000 ML 2055) CALCIUM, URINE, 24 [id number] 00:00:00 Test Item Value Reference Range Interpretation Comments CALCIUM, URINE, CONC. (test code 12 MG/DL = 2098) CALCIUM, URINE, 24 HR (test code 360 MG/24HR = 2065) TOTAL URINE VOLUME (test code = 3000 ML 2055) CALCIUM, URINE, 24 [id number] 00:00:00 Test Item Value Reference Range Interpretation Comments CALCIUM, URINE, CONC. (test code 12 MG/DL = 2098) CALCIUM, URINE, 24 HR (test code 360 MG/24HR = 2065) TOTAL URINE VOLUME (test code = 3000 ML 2055) CALCIUM, URINE, 24 [id number] 00:00:00 Test Item Value Reference Range Interpretation Comments CALCIUM, URINE, CONC. (test code 12 MG/DL = 2098) CALCIUM, URINE, 24 HR (test code 360 MG/24HR = 2065) TOTAL URINE VOLUME (test code = 3000 ML 2055) CALCIUM, URINE, 24 [id number] 00:00:00 Test Item Value Reference Range Interpretation Comments CALCIUM, URINE, CONC. (test code 12 MG/DL = 2098) CALCIUM, URINE, 24 HR (test code 360 MG/24HR = 2065) TOTAL URINE VOLUME (test code = 3000 ML 2055) CALCIUM, URINE, 24 [id number] 00:00:00 Test Item Value Reference Range Interpretation Comments CALCIUM, URINE, CONC. (test code 12 MG/DL = 2098) CALCIUM, URINE, 24 HR (test code 360 MG/24HR = 2065) TOTAL URINE VOLUME (test code = 3000 ML 2055) CALCIUM, URINE, 24 [id number] 00:00:00 Test Item Value Reference Range Interpretation Comments CALCIUM, URINE, CONC. (test code 12 MG/DL = 2098) CALCIUM, URINE, 24 HR (test code 360 MG/24HR = 2065) TOTAL URINE VOLUME (test code = 3000 ML 2055) CALCIUM, URINE, 24 [id number] 00:00:00 Test Item Value Reference Range Interpretation Comments CALCIUM, URINE, CONC. (test code 12 MG/DL = 2098) CALCIUM, URINE, 24 HR (test code 360 MG/24HR = 2065) TOTAL URINE VOLUME (test code = 3000 ML 2055) CALCIUM, URINE, 24 [id number] 00:00:00 Test Item Value Reference Range Interpretation Comments CALCIUM, URINE, CONC. (test code 12 MG/DL = 2098) CALCIUM, URINE, 24 HR (test code 360 MG/24HR = 2065) TOTAL URINE VOLUME (test code = 3000 ML 2055) CALCIUM, URINE, 24 [id number] 00:00:00 Test Item Value Reference Range Interpretation Comments CALCIUM, URINE, CONC. (test code 12 MG/DL = 2098) CALCIUM, URINE, 24 HR (test code 360 MG/24HR = 2065) TOTAL URINE VOLUME (test code = 3000 ML 2055) CALCIUM, URINE, 24 [id number] 00:00:00 Test Item Value Reference Range Interpretation Comments CALCIUM, URINE, CONC. (test code 12 MG/DL = 2098) CALCIUM, URINE, 24 HR (test code 360 MG/24HR = 2065) TOTAL URINE VOLUME (test code = 3000 ML 2055) CALCIUM, URINE, 24 [id number] 00:00:00 Test Item Value Reference Range Interpretation Comments CALCIUM, URINE, CONC. (test code 12 MG/DL = 2098) CALCIUM, URINE, 24 HR (test code 360 MG/24HR = 2065) TOTAL URINE VOLUME (test code = 3000 ML 2055) CALCIUM, URINE, 24 [id number] 00:00:00 Test Item Value Reference Range Interpretation Comments CALCIUM, URINE, CONC. (test code 12 MG/DL = 2098) CALCIUM, URINE, 24 HR (test code 360 MG/24HR = 2065) TOTAL URINE VOLUME (test code = 3000 ML 2055) CALCIUM, URINE, 24 [id number] 00:00:00 Test Item Value Reference Range Interpretation Comments CALCIUM, URINE, CONC. (test code 12 MG/DL = 2098) CALCIUM, URINE, 24 HR (test code 360 MG/24HR = 2065) TOTAL URINE VOLUME (test code = 3000 ML 2055) FUROSEMIDE, [id number] 10:22:19 Test Item Value Reference Range Interpretation Comments FUROSEMIDE, None Det ng/mL Reporting Rubi it: 100 SERUM (test ng/mLMean peak serum code = 02631) levels of 2300 +/- 500 ng/mL wereobtai carey approximately 1 hour after a single oral dose of 80 mg furose mide in fasting subject s.This test was rohini chacon and its performance characteristics determined by [facility]. It has not been cleared or approved by the [place] Food and Drug Administration. Provided reference range s and associated resu lt flags for Toxicology and Metals test res ults are not intended fo r all patient scenari os. Variables inclu ding, but not limited to, dose, dosing schedule , age, gender, medical conditions and/ or disease states should be taken into acco unt when interpreting an y result. TESTING PERFORM ED AT [facility] [address] [place] [address] 190 44 CLIA NO. [id number] [place]. [id number] FUROSEMIDE, [id number] 00:00:00 Test Item Value Reference Range Interpretation Comments FUROSEMIDE, SERUM (test code = None Det ng/mL 15118) FUROSEMIDE, [id number] 00:00:00 Test Item Value Reference Range Interpretation Comments FUROSEMIDE, SERUM (test code = None Det ng/mL 65544) FUROSEMIDE, [id number] 00:00:00 Test Item Value Reference Range Interpretation Comments FUROSEMIDE, SERUM (test code = None Det ng/mL 04476) FUROSEMIDE, [id number] 00:00:00 Test Item Value Reference Range Interpretation Comments FUROSEMIDE, SERUM (test code = None Det ng/mL 43437) FUROSEMIDE, [id number] 00:00:00 Test Item Value Reference Range Interpretation Comments FUROSEMIDE, SERUM (test code = None Det ng/mL 25491) FUROSEMIDE, [id number] 00:00:00 Test Item Value Reference Range Interpretation Comments FUROSEMIDE, SERUM (test code = None Det ng/mL 66901) FUROSEMIDE, [id number] 00:00:00 Test Item Value Reference Range Interpretation Comments FUROSEMIDE, SERUM (test code = None Det ng/mL 70260) FUROSEMIDE, [id number] 00:00:00 Test Item Value Reference Range Interpretation Comments FUROSEMIDE, SERUM (test code = None Det ng/mL 57256) FUROSEMIDE, [id number] 00:00:00 Test Item Value Reference Range Interpretation Comments FUROSEMIDE, SERUM (test code = None Det ng/mL 26771) FUROSEMIDE, [id number] 00:00:00 Test Item Value Reference Range Interpretation Comments FUROSEMIDE, SERUM (test code = None Det ng/mL 48004) FUROSEMIDE, [id number] 00:00:00 Test Item Value Reference Range Interpretation Comments FUROSEMIDE, SERUM (test code = None Det ng/mL 91705) FUROSEMIDE, [id number] 00:00:00 Test Item Value Reference Range Interpretation Comments FUROSEMIDE, SERUM (test code = None Det ng/mL 06186) FUROSEMIDE, [id number] 00:00:00 Test Item Value Reference Range Interpretation Comments FUROSEMIDE, SERUM (test code = None Det ng/mL 62946) FUROSEMIDE, [id number] 00:00:00 Test Item Value Reference Range Interpretation Comments FUROSEMIDE, SERUM (test code = None Det ng/mL 90682) FUROSEMIDE, [id number] 00:00:00 Test Item Value Reference Range Interpretation Comments FUROSEMIDE, SERUM (test code = None Det ng/mL 44269) FUROSEMIDE, [id number] 00:00:00 Test Item Value Reference Range Interpretation Comments FUROSEMIDE, SERUM (test code = None Det ng/mL 54767) FUROSEMIDE, [id number] 00:00:00 Test Item Value Reference Range Interpretation Comments FUROSEMIDE, SERUM (test code = None Det ng/mL 36983) FUROSEMIDE, [id number] 00:00:00 Test Item Value Reference Range Interpretation Comments FUROSEMIDE, SERUM (test code = None Det ng/mL 33378) FUROSEMIDE, [id number] 00:00:00 Test Item Value Reference Range Interpretation Comments FUROSEMIDE, SERUM (test code = None Det ng/mL 64302) FUROSEMIDE, [id number] 00:00:00 Test Item Value Reference Range Interpretation Comments FUROSEMIDE, SERUM (test code = None Det ng/mL 86486) [id number] 11:27:02 Test Item Value Reference Range Interpretation Comments D-DIMER (test <0.27 UG/ML FEU See_Comment NOTE: Prov ided code = 1405) reference range is established for evaluation of D eep Venous Thrombosis/Pulm onary Embolus (DVT/PE ). Results below c utoff value of <=0.49 UG/ML FEU have a high negative predic tive value forDVT/PE . No reference range is established for disseminatedint ra-vasc ular coagulatio n (DIC). [Automat ed message] The sy stem which generated this result transmit alex reference range : <=0.49. The ref erence range was not u sed to interpret this result as normal/abnor mal. TSH, THIRD [id number] 05:58:42 Test Item Value Reference Range Interpretation Comments TSH, THIRD GENERATION (test code 2.070 UIU/ML 0.400-4.100 = 2821) PROTHROMBIN TIME (PT)2021-10-04 05:04:36 Test Item Value Reference Range Interpretation Comments PROTHROMBIN TIME 14.0 SECONDS 12.5-14.7 (PT) (test code = 1402) INR (test code = 1.0 SEE BELOW CURRENT 40251) RECOMMENDATIONS ARE FOR AN INR OF 2 .0-3.0 FOR ALL PATIENT S ON VITAMIN K ANTAG ONISTS, EXCEPT THOSE WI TH PROSTHETIC HEAR T VALVES, FOR WHO M INR OF 2.5-3.5 IS RECOMMENDED. U NLESS OTHERWISE INDIC ATED, ALL TESTING PER [facility] [place]. [address] [place] [address] [facility] DIRECTOR: TANNER VELASQUEZ M.D. CLIA NUMBER [id number] CAP ACCREDITATION N O. [id number] HEMOGLOBIN [id number] 05:01:00 Test Item Value Reference Range Interpretation Comments HEMOGLOBIN A1c (test code = 82229) 5.3 % 4.2-5.6 COMPREHENSIVE METABOLIC [id number] 04:33:44 Test Item Value Reference Range Interpretation Comments GLUCOSE (test code = 126 MG/DL 70-99 H 2216) BUN (test code = 14 MG/DL 6-20 2207) CREATININE (test 0.76 MG/DL 0.60-1.30 code = 2214) eGFR (2020 CKD-EPI) 93 ML/MIN/1.73 >60 (test code = 24113) CALC BUN/CREAT (test 18 RATIO 6-28 code = 2235) SODIUM (test code = 140 MEQ/L 161-568 2550) POTASSIUM (test code 4.1 MEQ/L 3.5-5.4 = 8) CHLORIDE (test code 107 MEQ/L 95-107 = 2215) CARBON DIOXIDE (test 24 MEQ/L 19-31 code = 2206) CALCIUM (test code = 10.8 MG/DL 8.5-10.5 H 2208) PROTEIN, TOTAL (test 6.5 G/DL 6.1-8.3 code = 2229) ALBUMIN (test code = 4.0 G/DL 3.5-5.2 2200) CALC GLOBULIN (test 2.5 G/DL 1.9-3.7 code = 224) CALC A/G RATIO (test 1.6 RATIO 1.0-2.6 code = 223) BILIRUBIN, TOTAL 0.9 MG/DL See_Comment [Automated message] (test code = 2207) The syste m which generated this result transmit alex reference range : <=1.2. The refe rence range was not u sed to interpret th is result as normal/abnormal . ALKALINE PHOSPHATASE 116 U/L 40-133 (test code = 2204) AST (test code = 31 U/L 9-40 2217) ALT (test code = 89 U/L 5-40 H 2218) PROTHROMBIN TIME (PT)2021-10-04 00:00:00 Test Item Value Reference Range Interpretation Comments PROTHROMBIN TIME (PT) (test code 14.0 SECONDS = 1402) INR (test code = 95299) 1.0 PROTHROMBIN TIME (PT)2021-10-04 00:00:00 Test Item Value Reference Range Interpretation Comments PROTHROMBIN TIME (PT) (test code 14.0 SECONDS = 1402) INR (test code = 09134) 1.0 COMPREHENSIVE METABOLIC [id number] 00:00:00 Test Item Value Reference Range Interpretation Comments GLUCOSE (test code = 2217) 126 MG/DL BUN (test code = 2208) 14 MG/DL CREATININE (test code = 2214) 0.76 MG/DL eGFR (2020 CKD-EPI) (test code 93 ML/MIN/1.73 = 87785) CALC BUN/CREAT (test code = 18 RATIO 2234) SODIUM (test code = 2231) 140 MEQ/L POTASSIUM (test code = 2228) 4.1 MEQ/L CHLORIDE (test code = 2215) 107 MEQ/L CARBON DIOXIDE (test code = 24 MEQ/L 2205) CALCIUM (test code = 220) 10.8 MG/DL PROTEIN, TOTAL (test code = 6.5 G/DL 2228) ALBUMIN (test code = 220) 4.0 G/DL CALC GLOBULIN (test code = 2.5 G/DL 2239) CALC A/G RATIO (test code = 1.6 RATIO 2233) BILIRUBIN, TOTAL (test code = 0.9 MG/DL 2206) ALKALINE PHOSPHATASE (test 116 U/L code = 2204) AST (test code = 2218) 31 U/L ALT (test code = 2219) 89 U/L COMPREHENSIVE METABOLIC [id number] 00:00:00 Test Item Value Reference Range Interpretation Comments GLUCOSE (test code = 2217) 126 MG/DL BUN (test code = 2208) 14 MG/DL CREATININE (test code = 2214) 0.76 MG/DL eGFR (2020 CKD-EPI) (test code 93 ML/MIN/1.73 = 87483) CALC BUN/CREAT (test code = 18 RATIO 2235) SODIUM (test code = 2231) 140 MEQ/L POTASSIUM (test code = 2228) 4.1 MEQ/L CHLORIDE (test code = 2215) 107 MEQ/L CARBON DIOXIDE (test code = 24 MEQ/L 2205) CALCIUM (test code = 2209) 10.8 MG/DL PROTEIN, TOTAL (test code = 6.5 G/DL 2228) ALBUMIN (test code = 2201) 4.0 G/DL CALC GLOBULIN (test code = 2.5 G/DL 2240) CALC A/G RATIO (test code = 1.6 RATIO 4) BILIRUBIN, TOTAL (test code = 0.9 MG/DL 2206) ALKALINE PHOSPHATASE (test 116 U/L code = 2204) AST (test code = 2218) 31 U/L ALT (test code = 2219) 89 U/L [id number] 00:00:00 Test Item Value Reference Range Interpretation Comments TSH, THIRD GENERATION (test code 2.070 UIU/ML = 2821) [id number] 00:00:00 Test Item Value Reference Range Interpretation Comments TSH, THIRD GENERATION (test code 2.070 UIU/ML = 2821) [id number] 00:00:00 Test Item Value Reference Range Interpretation Comments TSH, THIRD GENERATION (test code 2.070 UIU/ML = 2821) HEMOGLOBIN [id number] 00:00:00 Test Item Value Reference Range Interpretation Comments HEMOGLOBIN A1c (test code = 68789) 5.3 % HEMOGLOBIN [id number] 00:00:00 Test Item Value Reference Range Interpretation Comments HEMOGLOBIN A1c (test code = 49898) 5.3 % HEMOGLOBIN [id number] 00:00:00 Test Item Value Reference Range Interpretation Comments HEMOGLOBIN A1c (test code = 29564) 5.3 % [id number] 00:00:00 Test Item Value Reference Range Interpretation Comments D-DIMER (test code = 1405) <0.27 UG/MLFEU [id number] 00:00:00 Test Item Value Reference Range Interpretation Comments D-DIMER (test code = 1405) <0.27 UG/MLFEU PROTHROMBIN TIME (PT)2021-10-04 00:00:00 Test Item Value Reference Range Interpretation Comments PROTHROMBIN TIME (PT) (test code 14.0 SECONDS = 1402) INR (test code = 45504) 1.0 PROTHROMBIN TIME (PT)2021-10-04 00:00:00 Test Item Value Reference Range Interpretation Comments PROTHROMBIN TIME (PT) (test code 14.0 SECONDS = 1402) INR (test code = 09767) 1.0 COMPREHENSIVE METABOLIC [id number] 00:00:00 Test Item Value Reference Range Interpretation Comments GLUCOSE (test code = 2217) 126 MG/DL BUN (test code = 2208) 14 MG/DL CREATININE (test code = 2214) 0.76 MG/DL eGFR (2020 CKD-EPI) (test code 93 ML/MIN/1.73 = 71723) CALC BUN/CREAT (test code = 18 RATIO 2235) SODIUM (test code = 2231) 140 MEQ/L POTASSIUM (test code = 2228) 4.1 MEQ/L CHLORIDE (test code = 2215) 107 MEQ/L CARBON DIOXIDE (test code = 24 MEQ/L 2205) CALCIUM (test code = 2209) 10.8 MG/DL PROTEIN, TOTAL (test code = 6.5 G/DL 2228) ALBUMIN (test code = 2201) 4.0 G/DL CALC GLOBULIN (test code = 2.5 G/DL 0) CALC A/G RATIO (test code = 1.6 RATIO 2234) BILIRUBIN, TOTAL (test code = 0.9 MG/DL 2206) ALKALINE PHOSPHATASE (test 116 U/L code = 2204) AST (test code = 2218) 31 U/L ALT (test code = 2219) 89 U/L COMPREHENSIVE METABOLIC [id number] 00:00:00 Test Item Value Reference Range Interpretation Comments GLUCOSE (test code = 2217) 126 MG/DL BUN (test code = 2208) 14 MG/DL CREATININE (test code = 2214) 0.76 MG/DL eGFR (2020 CKD-EPI) (test code 93 ML/MIN/1.73 = 83597) CALC BUN/CREAT (test code = 18 RATIO 2235) SODIUM (test code = 2231) 140 MEQ/L POTASSIUM (test code = 2228) 4.1 MEQ/L CHLORIDE (test code = 2215) 107 MEQ/L CARBON DIOXIDE (test code = 24 MEQ/L 2205) CALCIUM (test code = 2209) 10.8 MG/DL PROTEIN, TOTAL (test code = 6.5 G/DL 2228) ALBUMIN (test code = 2201) 4.0 G/DL CALC GLOBULIN (test code = 2.5 G/DL 2239) CALC A/G RATIO (test code = 1.6 RATIO 2233) BILIRUBIN, TOTAL (test code = 0.9 MG/DL 2206) ALKALINE PHOSPHATASE (test 116 U/L code = 2204) AST (test code = 2218) 31 U/L ALT (test code = 2219) 89 U/L [id number] 00:00:00 Test Item Value Reference Range Interpretation Comments TSH, THIRD GENERATION (test code 2.070 UIU/ML = 2821) [id number] 00:00:00 Test Item Value Reference Range Interpretation Comments TSH, THIRD GENERATION (test code 2.070 UIU/ML = 2821) [id number] 00:00:00 Test Item Value Reference Range Interpretation Comments TSH, THIRD GENERATION (test code 2.070 UIU/ML = 2821) HEMOGLOBIN [id number] 00:00:00 Test Item Value Reference Range Interpretation Comments HEMOGLOBIN A1c (test code = 79895) 5.3 % HEMOGLOBIN [id number] 00:00:00 Test Item Value Reference Range Interpretation Comments HEMOGLOBIN A1c (test code = 87597) 5.3 % HEMOGLOBIN [id number] 00:00:00 Test Item Value Reference Range Interpretation Comments HEMOGLOBIN A1c (test code = 71549) 5.3 % [id number] 00:00:00 Test Item Value Reference Range Interpretation Comments D-DIMER (test code = 1405) <0.27 UG/MLFEU [id number] 00:00:00 Test Item Value Reference Range Interpretation Comments D-DIMER (test code = 1405) <0.27 UG/MLFEU PROTHROMBIN TIME (PT)2021-10-04 00:00:00 Test Item Value Reference Range Interpretation Comments PROTHROMBIN TIME (PT) (test code 14.0 SECONDS = 1402) INR (test code = 13083) 1.0 PROTHROMBIN TIME (PT)2021-10-04 00:00:00 Test Item Value Reference Range Interpretation Comments PROTHROMBIN TIME (PT) (test code 14.0 SECONDS = 1402) INR (test code = 71098) 1.0 COMPREHENSIVE METABOLIC [id number] 00:00:00 Test Item Value Reference Range Interpretation Comments GLUCOSE (test code = 2217) 126 MG/DL BUN (test code = 2208) 14 MG/DL CREATININE (test code = 2214) 0.76 MG/DL eGFR (2020 CKD-EPI) (test code 93 ML/MIN/1.73 = 39683) CALC BUN/CREAT (test code = 18 RATIO 2235) SODIUM (test code = 2231) 140 MEQ/L POTASSIUM (test code = 2228) 4.1 MEQ/L CHLORIDE (test code = 2215) 107 MEQ/L CARBON DIOXIDE (test code = 24 MEQ/L 2205) CALCIUM (test code = 2209) 10.8 MG/DL PROTEIN, TOTAL (test code = 6.5 G/DL 2228) ALBUMIN (test code = 2201) 4.0 G/DL CALC GLOBULIN (test code = 2.5 G/DL 2240) CALC A/G RATIO (test code = 1.6 RATIO 2234) BILIRUBIN, TOTAL (test code = 0.9 MG/DL 2206) ALKALINE PHOSPHATASE (test 116 U/L code = 2204) AST (test code = 2218) 31 U/L ALT (test code = 2219) 89 U/L COMPREHENSIVE METABOLIC [id number] 00:00:00 Test Item Value Reference Range Interpretation Comments GLUCOSE (test code = 2217) 126 MG/DL BUN (test code = 2208) 14 MG/DL CREATININE (test code = 2214) 0.76 MG/DL eGFR (2021 CKD-EPI) (test code 93 ML/MIN/1.73 = 14697) CALC BUN/CREAT (test code = 18 RATIO 2235) SODIUM (test code = 2231) 140 MEQ/L POTASSIUM (test code = 2228) 4.1 MEQ/L CHLORIDE (test code = 2215) 107 MEQ/L CARBON DIOXIDE (test code = 24 MEQ/L 220) CALCIUM (test code = 2209) 10.8 MG/DL PROTEIN, TOTAL (test code = 6.5 G/DL 2228) ALBUMIN (test code = 2201) 4.0 G/DL CALC GLOBULIN (test code = 2.5 G/DL 2240) CALC A/G RATIO (test code = 1.6 RATIO 4) BILIRUBIN, TOTAL (test code = 0.9 MG/DL 2206) ALKALINE PHOSPHATASE (test 116 U/L code = 2204) AST (test code = 2218) 31 U/L ALT (test code = 2219) 89 U/L [id number] 00:00:00 Test Item Value Reference Range Interpretation Comments TSH, THIRD GENERATION (test code 2.070 UIU/ML = 2821) [id number] 00:00:00 Test Item Value Reference Range Interpretation Comments TSH, THIRD GENERATION (test code 2.070 UIU/ML = 2821) [id number] 00:00:00 Test Item Value Reference Range Interpretation Comments TSH, THIRD GENERATION (test code 2.070 UIU/ML = 2821) HEMOGLOBIN [id number] 00:00:00 Test Item Value Reference Range Interpretation Comments HEMOGLOBIN A1c (test code = 27262) 5.3 % HEMOGLOBIN [id number] 00:00:00 Test Item Value Reference Range Interpretation Comments HEMOGLOBIN A1c (test code = 48582) 5.3 % HEMOGLOBIN [id number] 00:00:00 Test Item Value Reference Range Interpretation Comments HEMOGLOBIN A1c (test code = 80101) 5.3 % [id number] 00:00:00 Test Item Value Reference Range Interpretation Comments D-DIMER (test code = 1405) <0.27 UG/MLFEU [id number] 00:00:00 Test Item Value Reference Range Interpretation Comments D-DIMER (test code = 1405) <0.27 UG/MLFEU PROTHROMBIN TIME (PT)2021-10-04 00:00:00 Test Item Value Reference Range Interpretation Comments PROTHROMBIN TIME (PT) (test code 14.0 SECONDS = 1402) INR (test code = 33747) 1.0 PROTHROMBIN TIME (PT)2021-10-04 00:00:00 Test Item Value Reference Range Interpretation Comments PROTHROMBIN TIME (PT) (test code 14.0 SECONDS = 1402) INR (test code = 98278) 1.0 COMPREHENSIVE METABOLIC [id number] 00:00:00 Test Item Value Reference Range Interpretation Comments GLUCOSE (test code = 2217) 126 MG/DL BUN (test code = 2208) 14 MG/DL CREATININE (test code = 2214) 0.76 MG/DL eGFR (2020 CKD-EPI) (test code 93 ML/MIN/1.73 = 04308) CALC BUN/CREAT (test code = 18 RATIO 2235) SODIUM (test code = 2231) 140 MEQ/L POTASSIUM (test code = 2228) 4.1 MEQ/L CHLORIDE (test code = 2215) 107 MEQ/L CARBON DIOXIDE (test code = 24 MEQ/L 2205) CALCIUM (test code = 2209) 10.8 MG/DL PROTEIN, TOTAL (test code = 6.5 G/DL 2228) ALBUMIN (test code = 2201) 4.0 G/DL CALC GLOBULIN (test code = 2.5 G/DL 0) CALC A/G RATIO (test code = 1.6 RATIO 2234) BILIRUBIN, TOTAL (test code = 0.9 MG/DL 2206) ALKALINE PHOSPHATASE (test 116 U/L code = 2204) AST (test code = 2218) 31 U/L ALT (test code = 2219) 89 U/L COMPREHENSIVE METABOLIC [id number] 00:00:00 Test Item Value Reference Range Interpretation Comments GLUCOSE (test code = 2217) 126 MG/DL BUN (test code = 2208) 14 MG/DL CREATININE (test code = 2214) 0.76 MG/DL eGFR (2020 CKD-EPI) (test code 93 ML/MIN/1.73 = 16260) CALC BUN/CREAT (test code = 18 RATIO 2235) SODIUM (test code = 2231) 140 MEQ/L POTASSIUM (test code = 2228) 4.1 MEQ/L CHLORIDE (test code = 2215) 107 MEQ/L CARBON DIOXIDE (test code = 24 MEQ/L 2205) CALCIUM (test code = 2209) 10.8 MG/DL PROTEIN, TOTAL (test code = 6.5 G/DL 2228) ALBUMIN (test code = 2201) 4.0 G/DL CALC GLOBULIN (test code = 2.5 G/DL 2240) CALC A/G RATIO (test code = 1.6 RATIO 2233) BILIRUBIN, TOTAL (test code = 0.9 MG/DL 2206) ALKALINE PHOSPHATASE (test 116 U/L code = 2204) AST (test code = 2218) 31 U/L ALT (test code = 2219) 89 U/L [id number] 00:00:00 Test Item Value Reference Range Interpretation Comments TSH, THIRD GENERATION (test code 2.070 UIU/ML = 2821) [id number] 00:00:00 Test Item Value Reference Range Interpretation Comments TSH, THIRD GENERATION (test code 2.070 UIU/ML = 2821) [id number] 00:00:00 Test Item Value Reference Range Interpretation Comments TSH, THIRD GENERATION (test code 2.070 UIU/ML = 2821) HEMOGLOBIN [id number] 00:00:00 Test Item Value Reference Range Interpretation Comments HEMOGLOBIN A1c (test code = 44644) 5.3 % HEMOGLOBIN [id number] 00:00:00 Test Item Value Reference Range Interpretation Comments HEMOGLOBIN A1c (test code = 84977) 5.3 % HEMOGLOBIN [id number] 00:00:00 Test Item Value Reference Range Interpretation Comments HEMOGLOBIN A1c (test code = 86526) 5.3 % [id number] 00:00:00 Test Item Value Reference Range Interpretation Comments D-DIMER (test code = 1405) <0.27 UG/MLFEU [id number] 00:00:00 Test Item Value Reference Range Interpretation Comments D-DIMER (test code = 1405) <0.27 UG/MLFEU PROTHROMBIN TIME (PT)2021-10-04 00:00:00 Test Item Value Reference Range Interpretation Comments PROTHROMBIN TIME (PT) (test code 14.0 SECONDS = 1402) INR (test code = 56655) 1.0 PROTHROMBIN TIME (PT)2021-10-04 00:00:00 Test Item Value Reference Range Interpretation Comments PROTHROMBIN TIME (PT) (test code 14.0 SECONDS = 1402) INR (test code = 42538) 1.0 COMPREHENSIVE METABOLIC [id number] 00:00:00 Test Item Value Reference Range Interpretation Comments GLUCOSE (test code = 2217) 126 MG/DL BUN (test code = 2208) 14 MG/DL CREATININE (test code = 2214) 0.76 MG/DL eGFR (2020 CKD-EPI) (test code 93 ML/MIN/1.73 = 48807) CALC BUN/CREAT (test code = 18 RATIO 2235) SODIUM (test code = 2231) 140 MEQ/L POTASSIUM (test code = 2228) 4.1 MEQ/L CHLORIDE (test code = 2215) 107 MEQ/L CARBON DIOXIDE (test code = 24 MEQ/L 2205) CALCIUM (test code = 2209) 10.8 MG/DL PROTEIN, TOTAL (test code = 6.5 G/DL 2228) ALBUMIN (test code = 2201) 4.0 G/DL CALC GLOBULIN (test code = 2.5 G/DL 2239) CALC A/G RATIO (test code = 1.6 RATIO 4) BILIRUBIN, TOTAL (test code = 0.9 MG/DL 2206) ALKALINE PHOSPHATASE (test 116 U/L code = 2204) AST (test code = 2218) 31 U/L ALT (test code = 2219) 89 U/L COMPREHENSIVE METABOLIC [id number] 00:00:00 Test Item Value Reference Range Interpretation Comments GLUCOSE (test code = 2217) 126 MG/DL BUN (test code = 2208) 14 MG/DL CREATININE (test code = 2214) 0.76 MG/DL eGFR (2020 CKD-EPI) (test code 93 ML/MIN/1.73 = 73158) CALC BUN/CREAT (test code = 18 RATIO 2235) SODIUM (test code = 2231) 140 MEQ/L POTASSIUM (test code = 2228) 4.1 MEQ/L CHLORIDE (test code = 2215) 107 MEQ/L CARBON DIOXIDE (test code = 24 MEQ/L 2205) CALCIUM (test code = 2209) 10.8 MG/DL PROTEIN, TOTAL (test code = 6.5 G/DL 2228) ALBUMIN (test code = 2201) 4.0 G/DL CALC GLOBULIN (test code = 2.5 G/DL 2240) CALC A/G RATIO (test code = 1.6 RATIO 2234) BILIRUBIN, TOTAL (test code = 0.9 MG/DL 2206) ALKALINE PHOSPHATASE (test 116 U/L code = 2204) AST (test code = 2218) 31 U/L ALT (test code = 2219) 89 U/L [id number] 00:00:00 Test Item Value Reference Range Interpretation Comments TSH, THIRD GENERATION (test code 2.070 UIU/ML = 2821) [id number] 00:00:00 Test Item Value Reference Range Interpretation Comments TSH, THIRD GENERATION (test code 2.070 UIU/ML = 2821) [id number] 00:00:00 Test Item Value Reference Range Interpretation Comments TSH, THIRD GENERATION (test code 2.070 UIU/ML = 2821) HEMOGLOBIN [id number] 00:00:00 Test Item Value Reference Range Interpretation Comments HEMOGLOBIN A1c (test code = 00706) 5.3 % HEMOGLOBIN [id number] 00:00:00 Test Item Value Reference Range Interpretation Comments HEMOGLOBIN A1c (test code = 68359) 5.3 % HEMOGLOBIN [id number] 00:00:00 Test Item Value Reference Range Interpretation Comments HEMOGLOBIN A1c (test code = 35189) 5.3 % [id number] 00:00:00 Test Item Value Reference Range Interpretation Comments D-DIMER (test code = 1405) <0.27 UG/MLFEU [id number] 00:00:00 Test Item Value Reference Range Interpretation Comments D-DIMER (test code = 1405) <0.27 UG/MLFEU PROTHROMBIN TIME (PT)2021-10-04 00:00:00 Test Item Value Reference Range Interpretation Comments PROTHROMBIN TIME (PT) (test code 14.0 SECONDS = 1402) INR (test code = 78275) 1.0 PROTHROMBIN TIME (PT)2021-10-04 00:00:00 Test Item Value Reference Range Interpretation Comments PROTHROMBIN TIME (PT) (test code 14.0 SECONDS = 1402) INR (test code = 72067) 1.0 COMPREHENSIVE METABOLIC [id number] 00:00:00 Test Item Value Reference Range Interpretation Comments GLUCOSE (test code = 2217) 126 MG/DL BUN (test code = 2208) 14 MG/DL CREATININE (test code = 2214) 0.76 MG/DL eGFR (2020 CKD-EPI) (test code 93 ML/MIN/1.73 = 00294) CALC BUN/CREAT (test code = 18 RATIO 2235) SODIUM (test code = 2231) 140 MEQ/L POTASSIUM (test code = 2228) 4.1 MEQ/L CHLORIDE (test code = 2215) 107 MEQ/L CARBON DIOXIDE (test code = 24 MEQ/L 220) CALCIUM (test code = 2209) 10.8 MG/DL PROTEIN, TOTAL (test code = 6.5 G/DL 2228) ALBUMIN (test code = 2201) 4.0 G/DL CALC GLOBULIN (test code = 2.5 G/DL 2240) CALC A/G RATIO (test code = 1.6 RATIO 2234) BILIRUBIN, TOTAL (test code = 0.9 MG/DL 2206) ALKALINE PHOSPHATASE (test 116 U/L code = 2204) AST (test code = 2218) 31 U/L ALT (test code = 2219) 89 U/L COMPREHENSIVE METABOLIC [id number] 00:00:00 Test Item Value Reference Range Interpretation Comments GLUCOSE (test code = 2217) 126 MG/DL BUN (test code = 2208) 14 MG/DL CREATININE (test code = 2214) 0.76 MG/DL eGFR (2020 CKD-EPI) (test code 93 ML/MIN/1.73 = 16774) CALC BUN/CREAT (test code = 18 RATIO 2235) SODIUM (test code = 2231) 140 MEQ/L POTASSIUM (test code = 2228) 4.1 MEQ/L CHLORIDE (test code = 2215) 107 MEQ/L CARBON DIOXIDE (test code = 24 MEQ/L 220) CALCIUM (test code = 2209) 10.8 MG/DL PROTEIN, TOTAL (test code = 6.5 G/DL 2228) ALBUMIN (test code = 2201) 4.0 G/DL CALC GLOBULIN (test code = 2.5 G/DL 2240) CALC A/G RATIO (test code = 1.6 RATIO 2234) BILIRUBIN, TOTAL (test code = 0.9 MG/DL 2206) ALKALINE PHOSPHATASE (test 116 U/L code = 2204) AST (test code = 2218) 31 U/L ALT (test code = 2219) 89 U/L [id number] 00:00:00 Test Item Value Reference Range Interpretation Comments TSH, THIRD GENERATION (test code 2.070 UIU/ML = 2821) [id number] 00:00:00 Test Item Value Reference Range Interpretation Comments TSH, THIRD GENERATION (test code 2.070 UIU/ML = 2821) [id number] 00:00:00 Test Item Value Reference Range Interpretation Comments TSH, THIRD GENERATION (test code 2.070 UIU/ML = 2821) HEMOGLOBIN [id number] 00:00:00 Test Item Value Reference Range Interpretation Comments HEMOGLOBIN A1c (test code = 13016) 5.3 % HEMOGLOBIN [id number] 00:00:00 Test Item Value Reference Range Interpretation Comments HEMOGLOBIN A1c (test code = 30679) 5.3 % HEMOGLOBIN [id number] 00:00:00 Test Item Value Reference Range Interpretation Comments HEMOGLOBIN A1c (test code = 92994) 5.3 % [id number] 00:00:00 Test Item Value Reference Range Interpretation Comments D-DIMER (test code = 1405) <0.27 UG/MLFEU [id number] 00:00:00 Test Item Value Reference Range Interpretation Comments D-DIMER (test code = 1405) <0.27 UG/MLFEU PROTHROMBIN TIME (PT)2021-10-04 00:00:00 Test Item Value Reference Range Interpretation Comments PROTHROMBIN TIME (PT) (test code 14.0 SECONDS = 1402) INR (test code = 64411) 1.0 PROTHROMBIN TIME (PT)2021-10-04 00:00:00 Test Item Value Reference Range Interpretation Comments PROTHROMBIN TIME (PT) (test code 14.0 SECONDS = 1402) INR (test code = 75878) 1.0 COMPREHENSIVE METABOLIC [id number] 00:00:00 Test Item Value Reference Range Interpretation Comments GLUCOSE (test code = 2217) 126 MG/DL BUN (test code = 2208) 14 MG/DL CREATININE (test code = 2214) 0.76 MG/DL eGFR (2020 CKD-EPI) (test code 93 ML/MIN/1.73 = 08996) CALC BUN/CREAT (test code = 18 RATIO 2235) SODIUM (test code = 2231) 140 MEQ/L POTASSIUM (test code = 2228) 4.1 MEQ/L CHLORIDE (test code = 2215) 107 MEQ/L CARBON DIOXIDE (test code = 24 MEQ/L 2206) CALCIUM (test code = 2209) 10.8 MG/DL PROTEIN, TOTAL (test code = 6.5 G/DL 222) ALBUMIN (test code = 2201) 4.0 G/DL CALC GLOBULIN (test code = 2.5 G/DL 2240) CALC A/G RATIO (test code = 1.6 RATIO 2234) BILIRUBIN, TOTAL (test code = 0.9 MG/DL 2206) ALKALINE PHOSPHATASE (test 116 U/L code = 2204) AST (test code = 2218) 31 U/L ALT (test code = 2219) 89 U/L COMPREHENSIVE METABOLIC [id number] 00:00:00 Test Item Value Reference Range Interpretation Comments GLUCOSE (test code = 2217) 126 MG/DL BUN (test code = 2208) 14 MG/DL CREATININE (test code = 2214) 0.76 MG/DL eGFR (2020 CKD-EPI) (test code 93 ML/MIN/1.73 = 49785) CALC BUN/CREAT (test code = 18 RATIO 2235) SODIUM (test code = 2231) 140 MEQ/L POTASSIUM (test code = 2228) 4.1 MEQ/L CHLORIDE (test code = 2215) 107 MEQ/L CARBON DIOXIDE (test code = 24 MEQ/L 6) CALCIUM (test code = 2209) 10.8 MG/DL PROTEIN, TOTAL (test code = 6.5 G/DL 2229) ALBUMIN (test code = 2201) 4.0 G/DL CALC GLOBULIN (test code = 2.5 G/DL 2240) CALC A/G RATIO (test code = 1.6 RATIO 2234) BILIRUBIN, TOTAL (test code = 0.9 MG/DL 2206) ALKALINE PHOSPHATASE (test 116 U/L code = 2204) AST (test code = 2218) 31 U/L ALT (test code = 2219) 89 U/L [id number] 00:00:00 Test Item Value Reference Range Interpretation Comments TSH, THIRD GENERATION (test code 2.070 UIU/ML = 2821) [id number] 00:00:00 Test Item Value Reference Range Interpretation Comments TSH, THIRD GENERATION (test code 2.070 UIU/ML = 2821) [id number] 00:00:00 Test Item Value Reference Range Interpretation Comments TSH, THIRD GENERATION (test code 2.070 UIU/ML = 2821) HEMOGLOBIN [id number] 00:00:00 Test Item Value Reference Range Interpretation Comments HEMOGLOBIN A1c (test code = 96573) 5.3 % HEMOGLOBIN [id number] 00:00:00 Test Item Value Reference Range Interpretation Comments HEMOGLOBIN A1c (test code = 25022) 5.3 % HEMOGLOBIN [id number] 00:00:00 Test Item Value Reference Range Interpretation Comments HEMOGLOBIN A1c (test code = 74105) 5.3 % [id number] 00:00:00 Test Item Value Reference Range Interpretation Comments D-DIMER (test code = 1405) <0.27 UG/MLFEU [id number] 00:00:00 Test Item Value Reference Range Interpretation Comments D-DIMER (test code = 1405) <0.27 UG/MLFEU PROTHROMBIN TIME (PT)2021-10-04 00:00:00 Test Item Value Reference Range Interpretation Comments PROTHROMBIN TIME (PT) (test code 14.0 SECONDS = 1402) INR (test code = 11895) 1.0 PROTHROMBIN TIME (PT)2021-10-04 00:00:00 Test Item Value Reference Range Interpretation Comments PROTHROMBIN TIME (PT) (test code 14.0 SECONDS = 1402) INR (test code = 43072) 1.0 COMPREHENSIVE METABOLIC [id number] 00:00:00 Test Item Value Reference Range Interpretation Comments GLUCOSE (test code = 2217) 126 MG/DL BUN (test code = 2208) 14 MG/DL CREATININE (test code = 2214) 0.76 MG/DL eGFR (2020 CKD-EPI) (test code 93 ML/MIN/1.73 = 09728) CALC BUN/CREAT (test code = 18 RATIO 2235) SODIUM (test code = 2231) 140 MEQ/L POTASSIUM (test code = 2228) 4.1 MEQ/L CHLORIDE (test code = 2215) 107 MEQ/L CARBON DIOXIDE (test code = 24 MEQ/L 2205) CALCIUM (test code = 2209) 10.8 MG/DL PROTEIN, TOTAL (test code = 6.5 G/DL 2228) ALBUMIN (test code = 2201) 4.0 G/DL CALC GLOBULIN (test code = 2.5 G/DL 2240) CALC A/G RATIO (test code = 1.6 RATIO 2234) BILIRUBIN, TOTAL (test code = 0.9 MG/DL 2206) ALKALINE PHOSPHATASE (test 116 U/L code = 2204) AST (test code = 2218) 31 U/L ALT (test code = 2219) 89 U/L COMPREHENSIVE METABOLIC [id number] 00:00:00 Test Item Value Reference Range Interpretation Comments GLUCOSE (test code = 2217) 126 MG/DL BUN (test code = 2208) 14 MG/DL CREATININE (test code = 2214) 0.76 MG/DL eGFR (2020 CKD-EPI) (test code 93 ML/MIN/1.73 = 83301) CALC BUN/CREAT (test code = 18 RATIO 2235) SODIUM (test code = 2231) 140 MEQ/L POTASSIUM (test code = 2228) 4.1 MEQ/L CHLORIDE (test code = 2215) 107 MEQ/L CARBON DIOXIDE (test code = 24 MEQ/L 2205) CALCIUM (test code = 2209) 10.8 MG/DL PROTEIN, TOTAL (test code = 6.5 G/DL 2228) ALBUMIN (test code = 2201) 4.0 G/DL CALC GLOBULIN (test code = 2.5 G/DL 2240) CALC A/G RATIO (test code = 1.6 RATIO 2234) BILIRUBIN, TOTAL (test code = 0.9 MG/DL 2206) ALKALINE PHOSPHATASE (test 116 U/L code = 2204) AST (test code = 2218) 31 U/L ALT (test code = 2219) 89 U/L [id number] 00:00:00 Test Item Value Reference Range Interpretation Comments TSH, THIRD GENERATION (test code 2.070 UIU/ML = 2821) [id number] 00:00:00 Test Item Value Reference Range Interpretation Comments TSH, THIRD GENERATION (test code 2.070 UIU/ML = 2821) [id number] 00:00:00 Test Item Value Reference Range Interpretation Comments TSH, THIRD GENERATION (test code 2.070 UIU/ML = 2821) HEMOGLOBIN [id number] 00:00:00 Test Item Value Reference Range Interpretation Comments HEMOGLOBIN A1c (test code = 82756) 5.3 % HEMOGLOBIN [id number] 00:00:00 Test Item Value Reference Range Interpretation Comments HEMOGLOBIN A1c (test code = 64408) 5.3 % HEMOGLOBIN [id number] 00:00:00 Test Item Value Reference Range Interpretation Comments HEMOGLOBIN A1c (test code = 00432) 5.3 % [id number] 00:00:00 Test Item Value Reference Range Interpretation Comments D-DIMER (test code = 1405) <0.27 UG/MLFEU [id number] 00:00:00 Test Item Value Reference Range Interpretation Comments D-DIMER (test code = 1405) <0.27 UG/MLFEU PROTHROMBIN TIME (PT)2021-10-04 00:00:00 Test Item Value Reference Range Interpretation Comments PROTHROMBIN TIME (PT) (test code 14.0 SECONDS = 1402) INR (test code = 27096) 1.0 PROTHROMBIN TIME (PT)2021-10-04 00:00:00 Test Item Value Reference Range Interpretation Comments PROTHROMBIN TIME (PT) (test code 14.0 SECONDS = 1402) INR (test code = 57957) 1.0 COMPREHENSIVE METABOLIC [id number] 00:00:00 Test Item Value Reference Range Interpretation Comments GLUCOSE (test code = 2217) 126 MG/DL BUN (test code = 2208) 14 MG/DL CREATININE (test code = 2214) 0.76 MG/DL eGFR (2020 CKD-EPI) (test code 93 ML/MIN/1.73 = 96887) CALC BUN/CREAT (test code = 18 RATIO 2235) SODIUM (test code = 2231) 140 MEQ/L POTASSIUM (test code = 2228) 4.1 MEQ/L CHLORIDE (test code = 2215) 107 MEQ/L CARBON DIOXIDE (test code = 24 MEQ/L 2205) CALCIUM (test code = 2209) 10.8 MG/DL PROTEIN, TOTAL (test code = 6.5 G/DL 2228) ALBUMIN (test code = 2201) 4.0 G/DL CALC GLOBULIN (test code = 2.5 G/DL 2240) CALC A/G RATIO (test code = 1.6 RATIO 2234) BILIRUBIN, TOTAL (test code = 0.9 MG/DL 2207) ALKALINE PHOSPHATASE (test 116 U/L code = 2204) AST (test code = 2218) 31 U/L ALT (test code = 2219) 89 U/L COMPREHENSIVE METABOLIC [id number] 00:00:00 Test Item Value Reference Range Interpretation Comments GLUCOSE (test code = 2217) 126 MG/DL BUN (test code = 2208) 14 MG/DL CREATININE (test code = 2214) 0.76 MG/DL eGFR (2020 CKD-EPI) (test code 93 ML/MIN/1.73 = 75182) CALC BUN/CREAT (test code = 18 RATIO 2235) SODIUM (test code = 2231) 140 MEQ/L POTASSIUM (test code = 2228) 4.1 MEQ/L CHLORIDE (test code = 2215) 107 MEQ/L CARBON DIOXIDE (test code = 24 MEQ/L 2205) CALCIUM (test code = 2209) 10.8 MG/DL PROTEIN, TOTAL (test code = 6.5 G/DL 2228) ALBUMIN (test code = 2201) 4.0 G/DL CALC GLOBULIN (test code = 2.5 G/DL 2240) CALC A/G RATIO (test code = 1.6 RATIO 2234) BILIRUBIN, TOTAL (test code = 0.9 MG/DL 7) ALKALINE PHOSPHATASE (test 116 U/L code = 2204) AST (test code = 2218) 31 U/L ALT (test code = 2219) 89 U/L [id number] 00:00:00 Test Item Value Reference Range Interpretation Comments TSH, THIRD GENERATION (test code 2.070 UIU/ML = 2821) [id number] 00:00:00 Test Item Value Reference Range Interpretation Comments TSH, THIRD GENERATION (test code 2.070 UIU/ML = 2821) [id number] 00:00:00 Test Item Value Reference Range Interpretation Comments TSH, THIRD GENERATION (test code 2.070 UIU/ML = 2821) HEMOGLOBIN [id number] 00:00:00 Test Item Value Reference Range Interpretation Comments HEMOGLOBIN A1c (test code = 73780) 5.3 % HEMOGLOBIN [id number] 00:00:00 Test Item Value Reference Range Interpretation Comments HEMOGLOBIN A1c (test code = 85922) 5.3 % HEMOGLOBIN [id number] 00:00:00 Test Item Value Reference Range Interpretation Comments HEMOGLOBIN A1c (test code = 93405) 5.3 % [id number] 00:00:00 Test Item Value Reference Range Interpretation Comments D-DIMER (test code = 1405) <0.27 UG/MLFEU [id number] 00:00:00 Test Item Value Reference Range Interpretation Comments D-DIMER (test code = 1405) <0.27 UG/MLFEU PROTHROMBIN TIME (PT)2021-10-04 00:00:00 Test Item Value Reference Range Interpretation Comments PROTHROMBIN TIME (PT) (test code 14.0 SECONDS = 1402) INR (test code = 44615) 1.0 PROTHROMBIN TIME (PT)2021-10-04 00:00:00 Test Item Value Reference Range Interpretation Comments PROTHROMBIN TIME (PT) (test code 14.0 SECONDS = 1402) INR (test code = 10356) 1.0 COMPREHENSIVE METABOLIC [id number] 00:00:00 Test Item Value Reference Range Interpretation Comments GLUCOSE (test code = 2217) 126 MG/DL BUN (test code = 2208) 14 MG/DL CREATININE (test code = 2214) 0.76 MG/DL eGFR (2020 CKD-EPI) (test code 93 ML/MIN/1.73 = 70413) CALC BUN/CREAT (test code = 18 RATIO 223) SODIUM (test code = 2231) 140 MEQ/L POTASSIUM (test code = 2228) 4.1 MEQ/L CHLORIDE (test code = 2215) 107 MEQ/L CARBON DIOXIDE (test code = 24 MEQ/L 2205) CALCIUM (test code = 2209) 10.8 MG/DL PROTEIN, TOTAL (test code = 6.5 G/DL 2228) ALBUMIN (test code = 220) 4.0 G/DL CALC GLOBULIN (test code = 2.5 G/DL 2239) CALC A/G RATIO (test code = 1.6 RATIO 2233) BILIRUBIN, TOTAL (test code = 0.9 MG/DL 2207) ALKALINE PHOSPHATASE (test 116 U/L code = 2204) AST (test code = 2218) 31 U/L ALT (test code = 2219) 89 U/L COMPREHENSIVE METABOLIC [id number] 00:00:00 Test Item Value Reference Range Interpretation Comments GLUCOSE (test code = 2217) 126 MG/DL BUN (test code = 2208) 14 MG/DL CREATININE (test code = 2214) 0.76 MG/DL eGFR (2020 CKD-EPI) (test code 93 ML/MIN/1.73 = 94515) CALC BUN/CREAT (test code = 18 RATIO 2235) SODIUM (test code = 2231) 140 MEQ/L POTASSIUM (test code = 2228) 4.1 MEQ/L CHLORIDE (test code = 2215) 107 MEQ/L CARBON DIOXIDE (test code = 24 MEQ/L 2205) CALCIUM (test code = 2209) 10.8 MG/DL PROTEIN, TOTAL (test code = 6.5 G/DL 2228) ALBUMIN (test code = 2201) 4.0 G/DL CALC GLOBULIN (test code = 2.5 G/DL 2240) CALC A/G RATIO (test code = 1.6 RATIO 2234) BILIRUBIN, TOTAL (test code = 0.9 MG/DL 2206) ALKALINE PHOSPHATASE (test 116 U/L code = 2204) AST (test code = 2218) 31 U/L ALT (test code = 2219) 89 U/L [id number] 00:00:00 Test Item Value Reference Range Interpretation Comments TSH, THIRD GENERATION (test code 2.070 UIU/ML = 2821) [id number] 00:00:00 Test Item Value Reference Range Interpretation Comments TSH, THIRD GENERATION (test code 2.070 UIU/ML = 2821) [id number] 00:00:00 Test Item Value Reference Range Interpretation Comments TSH, THIRD GENERATION (test code 2.070 UIU/ML = 2821) HEMOGLOBIN [id number] 00:00:00 Test Item Value Reference Range Interpretation Comments HEMOGLOBIN A1c (test code = 92096) 5.3 % HEMOGLOBIN [id number] 00:00:00 Test Item Value Reference Range Interpretation Comments HEMOGLOBIN A1c (test code = 52981) 5.3 % HEMOGLOBIN [id number] 00:00:00 Test Item Value Reference Range Interpretation Comments HEMOGLOBIN A1c (test code = 08585) 5.3 % [id number] 00:00:00 Test Item Value Reference Range Interpretation Comments D-DIMER (test code = 1405) <0.27 UG/MLFEU [id number] 00:00:00 Test Item Value Reference Range Interpretation Comments D-DIMER (test code = 1405) <0.27 UG/MLFEU CBC W/AUTO DIFF WITH [id number] 03:31:03 Test Item Value Reference Range Interpretation Comments WBC (test code = 7.5 K/UL 3.5-11.0 1001) RBC (test code = 4.98 M/UL 3.80-5.40 1002) HEMOGLOBIN (test code 15.5 G/DL 11.5-15.5 = 1003) HEMATOCRIT (test code 45.0 % 34.0-45.0 = 1004) MCV (test code = 90.4 fL 80.0-99.0 1005) MCH (test code = 31.1 PG 25.0-33.0 1006) MCHC (test code = 34.4 G/DL 31.0-36.0 1007) RDW (test code = 13.0 % 11.5-15.0 1038) NEUTROPHILS (test 62.7 % code = 1008) LYMPHOCYTES (test 26.3 % code = 1010) MONOCYTES (test code 6.8 % = 1011) EOSINOPHILS (test 3.1 % code = 1012) BASOPHILS (test code 0.8 % = 1013) IMMATURE GRANULOCYTES 0.3 % (test code = 1036) NUCLEATED RBCS (test 0.0 /100 WBC'S See_Comment [Aut omated code = 1065) message] The sy stem which generated this result transmitted reference range : 0.0. The refere nce range was not u sed to interpret th is result as normal/abnormal . PLATELET COUNT (test 284 K/UL 130-400 code = 1015) ABSOLUTE NEUTROPHILS 4.70 K/UL 1.50-7.50 (test code = 1066) ABSOLUTE LYMPHOCYTES 1.97 K/UL 1.00-4.00 (test code = 1067) ABSOLUTE MONOCYTES 0.51 K/UL 0.20-1.00 (test code = 1068) ABSOLUTE EOSINOPHILS 0.23 K/UL 0.00-0.50 (test code = 1040) ABSOLUTE BASOPHILS 0.06 K/UL 0.00-0.20 (test code = 1069) ABS IMMATURE 0.02 K/UL 0.00-0.10 GRANULOCYTES (test code = 1020) ABS NUCLEATED RBCS 0.00 K/UL 0.00-0.11 (test code = 71142) COMPREHENSIVE METABOLIC [id number] 03:15:48 Test Item Value Reference Range Interpretation Comments GLUCOSE (test code = 100 MG/DL 70-99 H 2216) BUN (test code = 13 MG/DL 6-20 2207) CREATININE (test 0.63 MG/DL 0.60-1.30 code = 2213) eGFR (2020 CKD-EPI) 105 >60 (test code = 36876) ML/MIN/1.73 CALC BUN/CREAT (test 21 RATIO 6-28 code = 2235) SODIUM (test code = 141 MEQ/L 695-080 4081) POTASSIUM (test code 4.5 MEQ/L 3.5-5.4 = 2227) CHLORIDE (test code 109 MEQ/L 95-107 H = 2214) CARBON DIOXIDE (test 23 MEQ/L 19-31 code = 220) CALCIUM (test code = 11.1 MG/DL 8.5-10.5 H 2208) PROTEIN, TOTAL (test 7.0 G/DL 6.1-8.3 code = 222) ALBUMIN (test code = 4.0 G/DL 3.5-5.2 2200) CALC GLOBULIN (test 3.0 G/DL 1.9-3.7 code = 2240) CALC A/G RATIO (test 1.3 RATIO 1.0-2.6 code = 2234) BILIRUBIN, TOTAL 0.6 MG/DL See_Comment [Automated message] (test code = 220) The syste m which generated this result transmitted ref erence range: <=1.2. T he reference range was not used to int erpret this result as normal/abnormal . ALKALINE PHOSPHATASE 99 U/L 40-133 (test code = 2204) AST (test code = 23 U/L 9-40 2217) ALT (test code = 33 U/L 5-40 UNLESS OTH ERWISE 2218) INDICATED, ALL TESTING PERFORM ED [facility], I [place]. [address] [facility] [place] [address] JERROD CRUZ DIRECTOR: TANNER VELASQUEZ M.D. CLIA NUMBER [id number] [facility] ACCREDITATION N O. [id number] CBC W/AUTO [id number] 00:00:00 Test Item Value Reference Range Interpretation Comments WBC (test code = 1001) 7.5 K/UL RBC (test code = 1002) 4.98 M/UL HEMOGLOBIN (test code = 1003) 15.5 G/DL HEMATOCRIT (test code = 1004) 45.0 % MCV (test code = 1005) 90.4 fL MCH (test code = 1006) 31.1 PG MCHC (test code = 1007) 34.4 G/DL RDW (test code = 1038) 13.0 % NEUTROPHILS (test code = 1008) 62.7 % LYMPHOCYTES (test code = 1010) 26.3 % MONOCYTES (test code = 1011) 6.8 % EOSINOPHILS (test code = 1012) 3.1 % BASOPHILS (test code = 1013) 0.8 % IMMATURE GRANULOCYTES (test 0.3 % code = 1036) NUCLEATED RBCS (test code = 0.0 /100WBC'S 1065) PLATELET COUNT (test code = 284 K/UL 1015) ABSOLUTE NEUTROPHILS (test code 4.70 K/UL = 1066) ABSOLUTE LYMPHOCYTES (test code 1.97 K/UL = 1067) ABSOLUTE MONOCYTES (test code = 0.51 K/UL 1068) ABSOLUTE EOSINOPHILS (test code 0.23 K/UL = 1040) ABSOLUTE BASOPHILS (test code = 0.06 K/UL 1069) ABS IMMATURE GRANULOCYTES (test 0.02 K/UL code = 1020) ABS NUCLEATED RBCS (test code = 0.00 K/UL 85308) CBC W/AUTO [id number] 00:00:00 Test Item Value Reference Range Interpretation Comments WBC (test code = 1001) 7.5 K/UL RBC (test code = 1002) 4.98 M/UL HEMOGLOBIN (test code = 1003) 15.5 G/DL HEMATOCRIT (test code = 1004) 45.0 % MCV (test code = 1005) 90.4 fL MCH (test code = 1006) 31.1 PG MCHC (test code = 1007) 34.4 G/DL RDW (test code = 1038) 13.0 % NEUTROPHILS (test code = 1008) 62.7 % LYMPHOCYTES (test code = 1010) 26.3 % MONOCYTES (test code = 1011) 6.8 % EOSINOPHILS (test code = 1012) 3.1 % BASOPHILS (test code = 1013) 0.8 % IMMATURE GRANULOCYTES (test 0.3 % code = 1036) NUCLEATED RBCS (test code = 0.0 /100WBC'S 1065) PLATELET COUNT (test code = 284 K/UL 1015) ABSOLUTE NEUTROPHILS (test code 4.70 K/UL = 1066) ABSOLUTE LYMPHOCYTES (test code 1.97 K/UL = 1067) ABSOLUTE MONOCYTES (test code = 0.51 K/UL 1068) ABSOLUTE EOSINOPHILS (test code 0.23 K/UL = 1040) ABSOLUTE BASOPHILS (test code = 0.06 K/UL 1069) ABS IMMATURE GRANULOCYTES (test 0.02 K/UL code = 1020) ABS NUCLEATED RBCS (test code = 0.00 K/UL 27046) CBC W/AUTO [id number] 00:00:00 Test Item Value Reference Range Interpretation Comments WBC (test code = 1001) 7.5 K/UL RBC (test code = 1002) 4.98 M/UL HEMOGLOBIN (test code = 1003) 15.5 G/DL HEMATOCRIT (test code = 1004) 45.0 % MCV (test code = 1005) 90.4 fL MCH (test code = 1006) 31.1 PG MCHC (test code = 1007) 34.4 G/DL RDW (test code = 1038) 13.0 % NEUTROPHILS (test code = 1008) 62.7 % LYMPHOCYTES (test code = 1010) 26.3 % MONOCYTES (test code = 1011) 6.8 % EOSINOPHILS (test code = 1012) 3.1 % BASOPHILS (test code = 1013) 0.8 % IMMATURE GRANULOCYTES (test 0.3 % code = 1036) NUCLEATED RBCS (test code = 0.0 /100WBC'S 1065) PLATELET COUNT (test code = 284 K/UL 1015) ABSOLUTE NEUTROPHILS (test code 4.70 K/UL = 1066) ABSOLUTE LYMPHOCYTES (test code 1.97 K/UL = 1067) ABSOLUTE MONOCYTES (test code = 0.51 K/UL 1068) ABSOLUTE EOSINOPHILS (test code 0.23 K/UL = 1040) ABSOLUTE BASOPHILS (test code = 0.06 K/UL 1069) ABS IMMATURE GRANULOCYTES (test 0.02 K/UL code = 1020) ABS NUCLEATED RBCS (test code = 0.00 K/UL 06612) COMPREHENSIVE METABOLIC [id number] 00:00:00 Test Item Value Reference Range Interpretation Comments GLUCOSE (test code = 2217) 100 MG/DL BUN (test code = 2208) 13 MG/DL CREATININE (test code = 2214) 0.63 MG/DL eGFR (2020 CKD-EPI) (test 105 ML/MIN/1.73 code = 21580) CALC BUN/CREAT (test code = 21 RATIO 2235) SODIUM (test code = 2231) 141 MEQ/L POTASSIUM (test code = 2228) 4.5 MEQ/L CHLORIDE (test code = 2215) 109 MEQ/L CARBON DIOXIDE (test code = 23 MEQ/L 220) CALCIUM (test code = 2209) 11.1 MG/DL PROTEIN, TOTAL (test code = 7.0 G/DL 2228) ALBUMIN (test code = 2201) 4.0 G/DL CALC GLOBULIN (test code = 3.0 G/DL 2240) CALC A/G RATIO (test code = 1.3 RATIO 4) BILIRUBIN, TOTAL (test code = 0.6 MG/DL 2206) ALKALINE PHOSPHATASE (test 99 U/L code = 2204) AST (test code = 2218) 23 U/L ALT (test code = 2219) 33 U/L COMPREHENSIVE METABOLIC [id number] 00:00:00 Test Item Value Reference Range Interpretation Comments GLUCOSE (test code = 2217) 100 MG/DL BUN (test code = 2208) 13 MG/DL CREATININE (test code = 2214) 0.63 MG/DL eGFR (2020 CKD-EPI) (test 105 ML/MIN/1.73 code = 43007) CALC BUN/CREAT (test code = 21 RATIO 2235) SODIUM (test code = 2231) 141 MEQ/L POTASSIUM (test code = 2228) 4.5 MEQ/L CHLORIDE (test code = 2215) 109 MEQ/L CARBON DIOXIDE (test code = 23 MEQ/L 2206) CALCIUM (test code = 2209) 11.1 MG/DL PROTEIN, TOTAL (test code = 7.0 G/DL 2229) ALBUMIN (test code = 2201) 4.0 G/DL CALC GLOBULIN (test code = 3.0 G/DL 2240) CALC A/G RATIO (test code = 1.3 RATIO 2234) BILIRUBIN, TOTAL (test code = 0.6 MG/DL 2207) ALKALINE PHOSPHATASE (test 99 U/L code = 2204) AST (test code = 2218) 23 U/L ALT (test code = 2219) 33 U/L CBC W/AUTO [id number] 00:00:00 Test Item Value Reference Range Interpretation Comments WBC (test code = 1001) 7.5 K/UL RBC (test code = 1002) 4.98 M/UL HEMOGLOBIN (test code = 1003) 15.5 G/DL HEMATOCRIT (test code = 1004) 45.0 % MCV (test code = 1005) 90.4 fL MCH (test code = 1006) 31.1 PG MCHC (test code = 1007) 34.4 G/DL RDW (test code = 1038) 13.0 % NEUTROPHILS (test code = 1008) 62.7 % LYMPHOCYTES (test code = 1010) 26.3 % MONOCYTES (test code = 1011) 6.8 % EOSINOPHILS (test code = 1012) 3.1 % BASOPHILS (test code = 1013) 0.8 % IMMATURE GRANULOCYTES (test 0.3 % code = 1036) NUCLEATED RBCS (test code = 0.0 /100WBC'S 1065) PLATELET COUNT (test code = 284 K/UL 1015) ABSOLUTE NEUTROPHILS (test code 4.70 K/UL = 1066) ABSOLUTE LYMPHOCYTES (test code 1.97 K/UL = 1067) ABSOLUTE MONOCYTES (test code = 0.51 K/UL 1068) ABSOLUTE EOSINOPHILS (test code 0.23 K/UL = 1040) ABSOLUTE BASOPHILS (test code = 0.06 K/UL 1069) ABS IMMATURE GRANULOCYTES (test 0.02 K/UL code = 1020) ABS NUCLEATED RBCS (test code = 0.00 K/UL 82213) CBC W/AUTO [id number] 00:00:00 Test Item Value Reference Range Interpretation Comments WBC (test code = 1001) 7.5 K/UL RBC (test code = 1002) 4.98 M/UL HEMOGLOBIN (test code = 1003) 15.5 G/DL HEMATOCRIT (test code = 1004) 45.0 % MCV (test code = 1005) 90.4 fL MCH (test code = 1006) 31.1 PG MCHC (test code = 1007) 34.4 G/DL RDW (test code = 1038) 13.0 % NEUTROPHILS (test code = 1008) 62.7 % LYMPHOCYTES (test code = 1010) 26.3 % MONOCYTES (test code = 1011) 6.8 % EOSINOPHILS (test code = 1012) 3.1 % BASOPHILS (test code = 1013) 0.8 % IMMATURE GRANULOCYTES (test 0.3 % code = 1036) NUCLEATED RBCS (test code = 0.0 /100WBC'S 1065) PLATELET COUNT (test code = 284 K/UL 1015) ABSOLUTE NEUTROPHILS (test code 4.70 K/UL = 1066) ABSOLUTE LYMPHOCYTES (test code 1.97 K/UL = 1067) ABSOLUTE MONOCYTES (test code = 0.51 K/UL 1068) ABSOLUTE EOSINOPHILS (test code 0.23 K/UL = 1040) ABSOLUTE BASOPHILS (test code = 0.06 K/UL 1069) ABS IMMATURE GRANULOCYTES (test 0.02 K/UL code = 1020) ABS NUCLEATED RBCS (test code = 0.00 K/UL 10258) CBC W/AUTO [id number] 00:00:00 Test Item Value Reference Range Interpretation Comments WBC (test code = 1001) 7.5 K/UL RBC (test code = 1002) 4.98 M/UL HEMOGLOBIN (test code = 1003) 15.5 G/DL HEMATOCRIT (test code = 1004) 45.0 % MCV (test code = 1005) 90.4 fL MCH (test code = 1006) 31.1 PG MCHC (test code = 1007) 34.4 G/DL RDW (test code = 1038) 13.0 % NEUTROPHILS (test code = 1008) 62.7 % LYMPHOCYTES (test code = 1010) 26.3 % MONOCYTES (test code = 1011) 6.8 % EOSINOPHILS (test code = 1012) 3.1 % BASOPHILS (test code = 1013) 0.8 % IMMATURE GRANULOCYTES (test 0.3 % code = 1036) NUCLEATED RBCS (test code = 0.0 /100WBC'S 1065) PLATELET COUNT (test code = 284 K/UL 1015) ABSOLUTE NEUTROPHILS (test code 4.70 K/UL = 1066) ABSOLUTE LYMPHOCYTES (test code 1.97 K/UL = 1067) ABSOLUTE MONOCYTES (test code = 0.51 K/UL 1068) ABSOLUTE EOSINOPHILS (test code 0.23 K/UL = 1040) ABSOLUTE BASOPHILS (test code = 0.06 K/UL 1069) ABS IMMATURE GRANULOCYTES (test 0.02 K/UL code = 1020) ABS NUCLEATED RBCS (test code = 0.00 K/UL 53420) COMPREHENSIVE METABOLIC [id number] 00:00:00 Test Item Value Reference Range Interpretation Comments GLUCOSE (test code = 2217) 100 MG/DL BUN (test code = 2208) 13 MG/DL CREATININE (test code = 2214) 0.63 MG/DL eGFR (2020 CKD-EPI) (test 105 ML/MIN/1.73 code = 09372) CALC BUN/CREAT (test code = 21 RATIO 2235) SODIUM (test code = 2231) 141 MEQ/L POTASSIUM (test code = 2228) 4.5 MEQ/L CHLORIDE (test code = 2215) 109 MEQ/L CARBON DIOXIDE (test code = 23 MEQ/L 220) CALCIUM (test code = 2209) 11.1 MG/DL PROTEIN, TOTAL (test code = 7.0 G/DL 2228) ALBUMIN (test code = 2201) 4.0 G/DL CALC GLOBULIN (test code = 3.0 G/DL 2240) CALC A/G RATIO (test code = 1.3 RATIO 2234) BILIRUBIN, TOTAL (test code = 0.6 MG/DL 2206) ALKALINE PHOSPHATASE (test 99 U/L code = 2204) AST (test code = 2218) 23 U/L ALT (test code = 2219) 33 U/L COMPREHENSIVE METABOLIC [id number] 00:00:00 Test Item Value Reference Range Interpretation Comments GLUCOSE (test code = 2217) 100 MG/DL BUN (test code = 2208) 13 MG/DL CREATININE (test code = 2214) 0.63 MG/DL eGFR (2020 CKD-EPI) (test 105 ML/MIN/1.73 code = 05601) CALC BUN/CREAT (test code = 21 RATIO 2235) SODIUM (test code = 2231) 141 MEQ/L POTASSIUM (test code = 2228) 4.5 MEQ/L CHLORIDE (test code = 2215) 109 MEQ/L CARBON DIOXIDE (test code = 23 MEQ/L 2205) CALCIUM (test code = 2209) 11.1 MG/DL PROTEIN, TOTAL (test code = 7.0 G/DL 2228) ALBUMIN (test code = 2201) 4.0 G/DL CALC GLOBULIN (test code = 3.0 G/DL 2239) CALC A/G RATIO (test code = 1.3 RATIO 2233) BILIRUBIN, TOTAL (test code = 0.6 MG/DL 2206) ALKALINE PHOSPHATASE (test 99 U/L code = 220) AST (test code = 2218) 23 U/L ALT (test code = 2219) 33 U/L CBC W/AUTO [id number] 00:00:00 Test Item Value Reference Range Interpretation Comments WBC (test code = 1001) 7.5 K/UL RBC (test code = 1002) 4.98 M/UL HEMOGLOBIN (test code = 1003) 15.5 G/DL HEMATOCRIT (test code = 1004) 45.0 % MCV (test code = 1005) 90.4 fL MCH (test code = 1006) 31.1 PG MCHC (test code = 1007) 34.4 G/DL RDW (test code = 1038) 13.0 % NEUTROPHILS (test code = 1008) 62.7 % LYMPHOCYTES (test code = 1010) 26.3 % MONOCYTES (test code = 1011) 6.8 % EOSINOPHILS (test code = 1012) 3.1 % BASOPHILS (test code = 1013) 0.8 % IMMATURE GRANULOCYTES (test 0.3 % code = 1036) NUCLEATED RBCS (test code = 0.0 /100WBC'S 1065) PLATELET COUNT (test code = 284 K/UL 1015) ABSOLUTE NEUTROPHILS (test code 4.70 K/UL = 1066) ABSOLUTE LYMPHOCYTES (test code 1.97 K/UL = 1067) ABSOLUTE MONOCYTES (test code = 0.51 K/UL 1068) ABSOLUTE EOSINOPHILS (test code 0.23 K/UL = 1040) ABSOLUTE BASOPHILS (test code = 0.06 K/UL 1069) ABS IMMATURE GRANULOCYTES (test 0.02 K/UL code = 1020) ABS NUCLEATED RBCS (test code = 0.00 K/UL 63910) CBC W/AUTO [id number] 00:00:00 Test Item Value Reference Range Interpretation Comments WBC (test code = 1001) 7.5 K/UL RBC (test code = 1002) 4.98 M/UL HEMOGLOBIN (test code = 1003) 15.5 G/DL HEMATOCRIT (test code = 1004) 45.0 % MCV (test code = 1005) 90.4 fL MCH (test code = 1006) 31.1 PG MCHC (test code = 1007) 34.4 G/DL RDW (test code = 1038) 13.0 % NEUTROPHILS (test code = 1008) 62.7 % LYMPHOCYTES (test code = 1010) 26.3 % MONOCYTES (test code = 1011) 6.8 % EOSINOPHILS (test code = 1012) 3.1 % BASOPHILS (test code = 1013) 0.8 % IMMATURE GRANULOCYTES (test 0.3 % code = 1036) NUCLEATED RBCS (test code = 0.0 /100WBC'S 1065) PLATELET COUNT (test code = 284 K/UL 1015) ABSOLUTE NEUTROPHILS (test code 4.70 K/UL = 1066) ABSOLUTE LYMPHOCYTES (test code 1.97 K/UL = 1067) ABSOLUTE MONOCYTES (test code = 0.51 K/UL 1068) ABSOLUTE EOSINOPHILS (test code 0.23 K/UL = 1040) ABSOLUTE BASOPHILS (test code = 0.06 K/UL 1069) ABS IMMATURE GRANULOCYTES (test 0.02 K/UL code = 1020) ABS NUCLEATED RBCS (test code = 0.00 K/UL 13768) CBC W/AUTO [id number] 00:00:00 Test Item Value Reference Range Interpretation Comments WBC (test code = 1001) 7.5 K/UL RBC (test code = 1002) 4.98 M/UL HEMOGLOBIN (test code = 1003) 15.5 G/DL HEMATOCRIT (test code = 1004) 45.0 % MCV (test code = 1005) 90.4 fL MCH (test code = 1006) 31.1 PG MCHC (test code = 1007) 34.4 G/DL RDW (test code = 1038) 13.0 % NEUTROPHILS (test code = 1008) 62.7 % LYMPHOCYTES (test code = 1010) 26.3 % MONOCYTES (test code = 1011) 6.8 % EOSINOPHILS (test code = 1012) 3.1 % BASOPHILS (test code = 1013) 0.8 % IMMATURE GRANULOCYTES (test 0.3 % code = 1036) NUCLEATED RBCS (test code = 0.0 /100WBC'S 1065) PLATELET COUNT (test code = 284 K/UL 1015) ABSOLUTE NEUTROPHILS (test code 4.70 K/UL = 1066) ABSOLUTE LYMPHOCYTES (test code 1.97 K/UL = 1067) ABSOLUTE MONOCYTES (test code = 0.51 K/UL 1068) ABSOLUTE EOSINOPHILS (test code 0.23 K/UL = 1040) ABSOLUTE BASOPHILS (test code = 0.06 K/UL 1069) ABS IMMATURE GRANULOCYTES (test 0.02 K/UL code = 1020) ABS NUCLEATED RBCS (test code = 0.00 K/UL 60307) COMPREHENSIVE METABOLIC [id number] 00:00:00 Test Item Value Reference Range Interpretation Comments GLUCOSE (test code = 2217) 100 MG/DL BUN (test code = 2208) 13 MG/DL CREATININE (test code = 2214) 0.63 MG/DL eGFR (2020 CKD-EPI) (test 105 ML/MIN/1.73 code = 02464) CALC BUN/CREAT (test code = 21 RATIO 2235) SODIUM (test code = 2231) 141 MEQ/L POTASSIUM (test code = 2228) 4.5 MEQ/L CHLORIDE (test code = 2215) 109 MEQ/L CARBON DIOXIDE (test code = 23 MEQ/L 2205) CALCIUM (test code = 2209) 11.1 MG/DL PROTEIN, TOTAL (test code = 7.0 G/DL 2228) ALBUMIN (test code = 2201) 4.0 G/DL CALC GLOBULIN (test code = 3.0 G/DL 2240) CALC A/G RATIO (test code = 1.3 RATIO 2234) BILIRUBIN, TOTAL (test code = 0.6 MG/DL 2206) ALKALINE PHOSPHATASE (test 99 U/L code = 2204) AST (test code = 2218) 23 U/L ALT (test code = 2219) 33 U/L COMPREHENSIVE METABOLIC [id number] 00:00:00 Test Item Value Reference Range Interpretation Comments GLUCOSE (test code = 2217) 100 MG/DL BUN (test code = 2208) 13 MG/DL CREATININE (test code = 2214) 0.63 MG/DL eGFR (2020 CKD-EPI) (test 105 ML/MIN/1.73 code = 58587) CALC BUN/CREAT (test code = 21 RATIO 2235) SODIUM (test code = 2231) 141 MEQ/L POTASSIUM (test code = 2228) 4.5 MEQ/L CHLORIDE (test code = 2215) 109 MEQ/L CARBON DIOXIDE (test code = 23 MEQ/L 2205) CALCIUM (test code = 2209) 11.1 MG/DL PROTEIN, TOTAL (test code = 7.0 G/DL 2228) ALBUMIN (test code = 220) 4.0 G/DL CALC GLOBULIN (test code = 3.0 G/DL 2239) CALC A/G RATIO (test code = 1.3 RATIO 2233) BILIRUBIN, TOTAL (test code = 0.6 MG/DL 2206) ALKALINE PHOSPHATASE (test 99 U/L code = 220) AST (test code = 2218) 23 U/L ALT (test code = 2219) 33 U/L CBC W/AUTO [id number] 00:00:00 Test Item Value Reference Range Interpretation Comments WBC (test code = 1001) 7.5 K/UL RBC (test code = 1002) 4.98 M/UL HEMOGLOBIN (test code = 1003) 15.5 G/DL HEMATOCRIT (test code = 1004) 45.0 % MCV (test code = 1005) 90.4 fL MCH (test code = 1006) 31.1 PG MCHC (test code = 1007) 34.4 G/DL RDW (test code = 1038) 13.0 % NEUTROPHILS (test code = 1008) 62.7 % LYMPHOCYTES (test code = 1010) 26.3 % MONOCYTES (test code = 1011) 6.8 % EOSINOPHILS (test code = 1012) 3.1 % BASOPHILS (test code = 1013) 0.8 % IMMATURE GRANULOCYTES (test 0.3 % code = 1036) NUCLEATED RBCS (test code = 0.0 /100WBC'S 1065) PLATELET COUNT (test code = 284 K/UL 1015) ABSOLUTE NEUTROPHILS (test code 4.70 K/UL = 1066) ABSOLUTE LYMPHOCYTES (test code 1.97 K/UL = 1067) ABSOLUTE MONOCYTES (test code = 0.51 K/UL 1068) ABSOLUTE EOSINOPHILS (test code 0.23 K/UL = 1040) ABSOLUTE BASOPHILS (test code = 0.06 K/UL 1069) ABS IMMATURE GRANULOCYTES (test 0.02 K/UL code = 1020) ABS NUCLEATED RBCS (test code = 0.00 K/UL 52733) CBC W/AUTO [id number] 00:00:00 Test Item Value Reference Range Interpretation Comments WBC (test code = 1001) 7.5 K/UL RBC (test code = 1002) 4.98 M/UL HEMOGLOBIN (test code = 1003) 15.5 G/DL HEMATOCRIT (test code = 1004) 45.0 % MCV (test code = 1005) 90.4 fL MCH (test code = 1006) 31.1 PG MCHC (test code = 1007) 34.4 G/DL RDW (test code = 1038) 13.0 % NEUTROPHILS (test code = 1008) 62.7 % LYMPHOCYTES (test code = 1010) 26.3 % MONOCYTES (test code = 1011) 6.8 % EOSINOPHILS (test code = 1012) 3.1 % BASOPHILS (test code = 1013) 0.8 % IMMATURE GRANULOCYTES (test 0.3 % code = 1036) NUCLEATED RBCS (test code = 0.0 /100WBC'S 1065) PLATELET COUNT (test code = 284 K/UL 1015) ABSOLUTE NEUTROPHILS (test code 4.70 K/UL = 1066) ABSOLUTE LYMPHOCYTES (test code 1.97 K/UL = 1067) ABSOLUTE MONOCYTES (test code = 0.51 K/UL 1068) ABSOLUTE EOSINOPHILS (test code 0.23 K/UL = 1040) ABSOLUTE BASOPHILS (test code = 0.06 K/UL 1069) ABS IMMATURE GRANULOCYTES (test 0.02 K/UL code = 1020) ABS NUCLEATED RBCS (test code = 0.00 K/UL 46860) CBC W/AUTO [id number] 00:00:00 Test Item Value Reference Range Interpretation Comments WBC (test code = 1001) 7.5 K/UL RBC (test code = 1002) 4.98 M/UL HEMOGLOBIN (test code = 1003) 15.5 G/DL HEMATOCRIT (test code = 1004) 45.0 % MCV (test code = 1005) 90.4 fL MCH (test code = 1006) 31.1 PG MCHC (test code = 1007) 34.4 G/DL RDW (test code = 1038) 13.0 % NEUTROPHILS (test code = 1008) 62.7 % LYMPHOCYTES (test code = 1010) 26.3 % MONOCYTES (test code = 1011) 6.8 % EOSINOPHILS (test code = 1012) 3.1 % BASOPHILS (test code = 1013) 0.8 % IMMATURE GRANULOCYTES (test 0.3 % code = 1036) NUCLEATED RBCS (test code = 0.0 /100WBC'S 1065) PLATELET COUNT (test code = 284 K/UL 1015) ABSOLUTE NEUTROPHILS (test code 4.70 K/UL = 1066) ABSOLUTE LYMPHOCYTES (test code 1.97 K/UL = 1067) ABSOLUTE MONOCYTES (test code = 0.51 K/UL 1068) ABSOLUTE EOSINOPHILS (test code 0.23 K/UL = 1040) ABSOLUTE BASOPHILS (test code = 0.06 K/UL 1069) ABS IMMATURE GRANULOCYTES (test 0.02 K/UL code = 1020) ABS NUCLEATED RBCS (test code = 0.00 K/UL 78826) COMPREHENSIVE METABOLIC [id number] 00:00:00 Test Item Value Reference Range Interpretation Comments GLUCOSE (test code = 2217) 100 MG/DL BUN (test code = 2208) 13 MG/DL CREATININE (test code = 2214) 0.63 MG/DL eGFR (2020 CKD-EPI) (test 105 ML/MIN/1.73 code = 99165) CALC BUN/CREAT (test code = 21 RATIO 2235) SODIUM (test code = 2231) 141 MEQ/L POTASSIUM (test code = 2228) 4.5 MEQ/L CHLORIDE (test code = 2215) 109 MEQ/L CARBON DIOXIDE (test code = 23 MEQ/L 2205) CALCIUM (test code = 2209) 11.1 MG/DL PROTEIN, TOTAL (test code = 7.0 G/DL 2228) ALBUMIN (test code = 2201) 4.0 G/DL CALC GLOBULIN (test code = 3.0 G/DL 224) CALC A/G RATIO (test code = 1.3 RATIO 223) BILIRUBIN, TOTAL (test code = 0.6 MG/DL 2206) ALKALINE PHOSPHATASE (test 99 U/L code = 2204) AST (test code = 2218) 23 U/L ALT (test code = 2219) 33 U/L COMPREHENSIVE METABOLIC [id number] 00:00:00 Test Item Value Reference Range Interpretation Comments GLUCOSE (test code = 2217) 100 MG/DL BUN (test code = 2208) 13 MG/DL CREATININE (test code = 2214) 0.63 MG/DL eGFR (2020 CKD-EPI) (test 105 ML/MIN/1.73 code = 94503) CALC BUN/CREAT (test code = 21 RATIO 2235) SODIUM (test code = 2231) 141 MEQ/L POTASSIUM (test code = 2228) 4.5 MEQ/L CHLORIDE (test code = 2215) 109 MEQ/L CARBON DIOXIDE (test code = 23 MEQ/L 2205) CALCIUM (test code = 2209) 11.1 MG/DL PROTEIN, TOTAL (test code = 7.0 G/DL 2228) ALBUMIN (test code = 2201) 4.0 G/DL CALC GLOBULIN (test code = 3.0 G/DL 224) CALC A/G RATIO (test code = 1.3 RATIO 4) BILIRUBIN, TOTAL (test code = 0.6 MG/DL 2206) ALKALINE PHOSPHATASE (test 99 U/L code = 2204) AST (test code = 2218) 23 U/L ALT (test code = 2219) 33 U/L CBC W/AUTO [id number] 00:00:00 Test Item Value Reference Range Interpretation Comments WBC (test code = 1001) 7.5 K/UL RBC (test code = 1002) 4.98 M/UL HEMOGLOBIN (test code = 1003) 15.5 G/DL HEMATOCRIT (test code = 1004) 45.0 % MCV (test code = 1005) 90.4 fL MCH (test code = 1006) 31.1 PG MCHC (test code = 1007) 34.4 G/DL RDW (test code = 1038) 13.0 % NEUTROPHILS (test code = 1008) 62.7 % LYMPHOCYTES (test code = 1010) 26.3 % MONOCYTES (test code = 1011) 6.8 % EOSINOPHILS (test code = 1012) 3.1 % BASOPHILS (test code = 1013) 0.8 % IMMATURE GRANULOCYTES (test 0.3 % code = 1036) NUCLEATED RBCS (test code = 0.0 /100WBC'S 1065) PLATELET COUNT (test code = 284 K/UL 1015) ABSOLUTE NEUTROPHILS (test code 4.70 K/UL = 1066) ABSOLUTE LYMPHOCYTES (test code 1.97 K/UL = 1067) ABSOLUTE MONOCYTES (test code = 0.51 K/UL 1068) ABSOLUTE EOSINOPHILS (test code 0.23 K/UL = 1040) ABSOLUTE BASOPHILS (test code = 0.06 K/UL 1069) ABS IMMATURE GRANULOCYTES (test 0.02 K/UL code = 1020) ABS NUCLEATED RBCS (test code = 0.00 K/UL 82465) CBC W/AUTO [id number] 00:00:00 Test Item Value Reference Range Interpretation Comments WBC (test code = 1001) 7.5 K/UL RBC (test code = 1002) 4.98 M/UL HEMOGLOBIN (test code = 1003) 15.5 G/DL HEMATOCRIT (test code = 1004) 45.0 % MCV (test code = 1005) 90.4 fL MCH (test code = 1006) 31.1 PG MCHC (test code = 1007) 34.4 G/DL RDW (test code = 1038) 13.0 % NEUTROPHILS (test code = 1008) 62.7 % LYMPHOCYTES (test code = 1010) 26.3 % MONOCYTES (test code = 1011) 6.8 % EOSINOPHILS (test code = 1012) 3.1 % BASOPHILS (test code = 1013) 0.8 % IMMATURE GRANULOCYTES (test 0.3 % code = 1036) NUCLEATED RBCS (test code = 0.0 /100WBC'S 1065) PLATELET COUNT (test code = 284 K/UL 1015) ABSOLUTE NEUTROPHILS (test code 4.70 K/UL = 1066) ABSOLUTE LYMPHOCYTES (test code 1.97 K/UL = 1067) ABSOLUTE MONOCYTES (test code = 0.51 K/UL 1068) ABSOLUTE EOSINOPHILS (test code 0.23 K/UL = 1040) ABSOLUTE BASOPHILS (test code = 0.06 K/UL 1069) ABS IMMATURE GRANULOCYTES (test 0.02 K/UL code = 1020) ABS NUCLEATED RBCS (test code = 0.00 K/UL 36694) CBC W/AUTO [id number] 00:00:00 Test Item Value Reference Range Interpretation Comments WBC (test code = 1001) 7.5 K/UL RBC (test code = 1002) 4.98 M/UL HEMOGLOBIN (test code = 1003) 15.5 G/DL HEMATOCRIT (test code = 1004) 45.0 % MCV (test code = 1005) 90.4 fL MCH (test code = 1006) 31.1 PG MCHC (test code = 1007) 34.4 G/DL RDW (test code = 1038) 13.0 % NEUTROPHILS (test code = 1008) 62.7 % LYMPHOCYTES (test code = 1010) 26.3 % MONOCYTES (test code = 1011) 6.8 % EOSINOPHILS (test code = 1012) 3.1 % BASOPHILS (test code = 1013) 0.8 % IMMATURE GRANULOCYTES (test 0.3 % code = 1036) NUCLEATED RBCS (test code = 0.0 /100WBC'S 1065) PLATELET COUNT (test code = 284 K/UL 1015) ABSOLUTE NEUTROPHILS (test code 4.70 K/UL = 1066) ABSOLUTE LYMPHOCYTES (test code 1.97 K/UL = 1067) ABSOLUTE MONOCYTES (test code = 0.51 K/UL 1068) ABSOLUTE EOSINOPHILS (test code 0.23 K/UL = 1040) ABSOLUTE BASOPHILS (test code = 0.06 K/UL 1069) ABS IMMATURE GRANULOCYTES (test 0.02 K/UL code = 1020) ABS NUCLEATED RBCS (test code = 0.00 K/UL 94964) COMPREHENSIVE METABOLIC [id number] 00:00:00 Test Item Value Reference Range Interpretation Comments GLUCOSE (test code = 2217) 100 MG/DL BUN (test code = 2208) 13 MG/DL CREATININE (test code = 2214) 0.63 MG/DL eGFR (2020 CKD-EPI) (test 105 ML/MIN/1.73 code = 60782) CALC BUN/CREAT (test code = 21 RATIO 2235) SODIUM (test code = 2231) 141 MEQ/L POTASSIUM (test code = 2228) 4.5 MEQ/L CHLORIDE (test code = 2215) 109 MEQ/L CARBON DIOXIDE (test code = 23 MEQ/L 2205) CALCIUM (test code = 2209) 11.1 MG/DL PROTEIN, TOTAL (test code = 7.0 G/DL 2228) ALBUMIN (test code = 2201) 4.0 G/DL CALC GLOBULIN (test code = 3.0 G/DL 2240) CALC A/G RATIO (test code = 1.3 RATIO 2234) BILIRUBIN, TOTAL (test code = 0.6 MG/DL 2206) ALKALINE PHOSPHATASE (test 99 U/L code = 2204) AST (test code = 2218) 23 U/L ALT (test code = 2219) 33 U/L COMPREHENSIVE METABOLIC [id number] 00:00:00 Test Item Value Reference Range Interpretation Comments GLUCOSE (test code = 2217) 100 MG/DL BUN (test code = 2208) 13 MG/DL CREATININE (test code = 2214) 0.63 MG/DL eGFR (2020 CKD-EPI) (test 105 ML/MIN/1.73 code = 51937) CALC BUN/CREAT (test code = 21 RATIO 2235) SODIUM (test code = 2231) 141 MEQ/L POTASSIUM (test code = 2228) 4.5 MEQ/L CHLORIDE (test code = 2215) 109 MEQ/L CARBON DIOXIDE (test code = 23 MEQ/L 2205) CALCIUM (test code = 2209) 11.1 MG/DL PROTEIN, TOTAL (test code = 7.0 G/DL 2228) ALBUMIN (test code = 2201) 4.0 G/DL CALC GLOBULIN (test code = 3.0 G/DL 2240) CALC A/G RATIO (test code = 1.3 RATIO 2234) BILIRUBIN, TOTAL (test code = 0.6 MG/DL 2206) ALKALINE PHOSPHATASE (test 99 U/L code = 2204) AST (test code = 2218) 23 U/L ALT (test code = 2219) 33 U/L CBC W/AUTO [id number] 00:00:00 Test Item Value Reference Range Interpretation Comments WBC (test code = 1001) 7.5 K/UL RBC (test code = 1002) 4.98 M/UL HEMOGLOBIN (test code = 1003) 15.5 G/DL HEMATOCRIT (test code = 1004) 45.0 % MCV (test code = 1005) 90.4 fL MCH (test code = 1006) 31.1 PG MCHC (test code = 1007) 34.4 G/DL RDW (test code = 1038) 13.0 % NEUTROPHILS (test code = 1008) 62.7 % LYMPHOCYTES (test code = 1010) 26.3 % MONOCYTES (test code = 1011) 6.8 % EOSINOPHILS (test code = 1012) 3.1 % BASOPHILS (test code = 1013) 0.8 % IMMATURE GRANULOCYTES (test 0.3 % code = 1036) NUCLEATED RBCS (test code = 0.0 /100WBC'S 1065) PLATELET COUNT (test code = 284 K/UL 1015) ABSOLUTE NEUTROPHILS (test code 4.70 K/UL = 1066) ABSOLUTE LYMPHOCYTES (test code 1.97 K/UL = 1067) ABSOLUTE MONOCYTES (test code = 0.51 K/UL 1068) ABSOLUTE EOSINOPHILS (test code 0.23 K/UL = 1040) ABSOLUTE BASOPHILS (test code = 0.06 K/UL 1069) ABS IMMATURE GRANULOCYTES (test 0.02 K/UL code = 1020) ABS NUCLEATED RBCS (test code = 0.00 K/UL 30241) CBC W/AUTO [id number] 00:00:00 Test Item Value Reference Range Interpretation Comments WBC (test code = 1001) 7.5 K/UL RBC (test code = 1002) 4.98 M/UL HEMOGLOBIN (test code = 1003) 15.5 G/DL HEMATOCRIT (test code = 1004) 45.0 % MCV (test code = 1005) 90.4 fL MCH (test code = 1006) 31.1 PG MCHC (test code = 1007) 34.4 G/DL RDW (test code = 1038) 13.0 % NEUTROPHILS (test code = 1008) 62.7 % LYMPHOCYTES (test code = 1010) 26.3 % MONOCYTES (test code = 1011) 6.8 % EOSINOPHILS (test code = 1012) 3.1 % BASOPHILS (test code = 1013) 0.8 % IMMATURE GRANULOCYTES (test 0.3 % code = 1036) NUCLEATED RBCS (test code = 0.0 /100WBC'S 1065) PLATELET COUNT (test code = 284 K/UL 1015) ABSOLUTE NEUTROPHILS (test code 4.70 K/UL = 1066) ABSOLUTE LYMPHOCYTES (test code 1.97 K/UL = 1067) ABSOLUTE MONOCYTES (test code = 0.51 K/UL 1068) ABSOLUTE EOSINOPHILS (test code 0.23 K/UL = 1040) ABSOLUTE BASOPHILS (test code = 0.06 K/UL 1069) ABS IMMATURE GRANULOCYTES (test 0.02 K/UL code = 1020) ABS NUCLEATED RBCS (test code = 0.00 K/UL 59978) CBC W/AUTO [id number] 00:00:00 Test Item Value Reference Range Interpretation Comments WBC (test code = 1001) 7.5 K/UL RBC (test code = 1002) 4.98 M/UL HEMOGLOBIN (test code = 1003) 15.5 G/DL HEMATOCRIT (test code = 1004) 45.0 % MCV (test code = 1005) 90.4 fL MCH (test code = 1006) 31.1 PG MCHC (test code = 1007) 34.4 G/DL RDW (test code = 1038) 13.0 % NEUTROPHILS (test code = 1008) 62.7 % LYMPHOCYTES (test code = 1010) 26.3 % MONOCYTES (test code = 1011) 6.8 % EOSINOPHILS (test code = 1012) 3.1 % BASOPHILS (test code = 1013) 0.8 % IMMATURE GRANULOCYTES (test 0.3 % code = 1036) NUCLEATED RBCS (test code = 0.0 /100WBC'S 1065) PLATELET COUNT (test code = 284 K/UL 1015) ABSOLUTE NEUTROPHILS (test code 4.70 K/UL = 1066) ABSOLUTE LYMPHOCYTES (test code 1.97 K/UL = 1067) ABSOLUTE MONOCYTES (test code = 0.51 K/UL 1068) ABSOLUTE EOSINOPHILS (test code 0.23 K/UL = 1040) ABSOLUTE BASOPHILS (test code = 0.06 K/UL 1069) ABS IMMATURE GRANULOCYTES (test 0.02 K/UL code = 1020) ABS NUCLEATED RBCS (test code = 0.00 K/UL 48766) COMPREHENSIVE METABOLIC [id number] 00:00:00 Test Item Value Reference Range Interpretation Comments GLUCOSE (test code = 2217) 100 MG/DL BUN (test code = 2208) 13 MG/DL CREATININE (test code = 2214) 0.63 MG/DL eGFR (2020 CKD-EPI) (test 105 ML/MIN/1.73 code = 64052) CALC BUN/CREAT (test code = 21 RATIO 2235) SODIUM (test code = 2231) 141 MEQ/L POTASSIUM (test code = 2228) 4.5 MEQ/L CHLORIDE (test code = 2215) 109 MEQ/L CARBON DIOXIDE (test code = 23 MEQ/L 220) CALCIUM (test code = 2209) 11.1 MG/DL PROTEIN, TOTAL (test code = 7.0 G/DL 2228) ALBUMIN (test code = 2201) 4.0 G/DL CALC GLOBULIN (test code = 3.0 G/DL 2240) CALC A/G RATIO (test code = 1.3 RATIO 2234) BILIRUBIN, TOTAL (test code = 0.6 MG/DL 2206) ALKALINE PHOSPHATASE (test 99 U/L code = 2204) AST (test code = 2218) 23 U/L ALT (test code = 2219) 33 U/L COMPREHENSIVE METABOLIC [id number] 00:00:00 Test Item Value Reference Range Interpretation Comments GLUCOSE (test code = 2217) 100 MG/DL BUN (test code = 2208) 13 MG/DL CREATININE (test code = 2214) 0.63 MG/DL eGFR (2020 CKD-EPI) (test 105 ML/MIN/1.73 code = 40537) CALC BUN/CREAT (test code = 21 RATIO 2235) SODIUM (test code = 2231) 141 MEQ/L POTASSIUM (test code = 2228) 4.5 MEQ/L CHLORIDE (test code = 2215) 109 MEQ/L CARBON DIOXIDE (test code = 23 MEQ/L 2205) CALCIUM (test code = 2209) 11.1 MG/DL PROTEIN, TOTAL (test code = 7.0 G/DL 2228) ALBUMIN (test code = 2201) 4.0 G/DL CALC GLOBULIN (test code = 3.0 G/DL 2240) CALC A/G RATIO (test code = 1.3 RATIO 2234) BILIRUBIN, TOTAL (test code = 0.6 MG/DL 2206) ALKALINE PHOSPHATASE (test 99 U/L code = 2204) AST (test code = 2218) 23 U/L ALT (test code = 2219) 33 U/L CBC W/AUTO [id number] 00:00:00 Test Item Value Reference Range Interpretation Comments WBC (test code = 1001) 7.5 K/UL RBC (test code = 1002) 4.98 M/UL HEMOGLOBIN (test code = 1003) 15.5 G/DL HEMATOCRIT (test code = 1004) 45.0 % MCV (test code = 1005) 90.4 fL MCH (test code = 1006) 31.1 PG MCHC (test code = 1007) 34.4 G/DL RDW (test code = 1038) 13.0 % NEUTROPHILS (test code = 1008) 62.7 % LYMPHOCYTES (test code = 1010) 26.3 % MONOCYTES (test code = 1011) 6.8 % EOSINOPHILS (test code = 1012) 3.1 % BASOPHILS (test code = 1013) 0.8 % IMMATURE GRANULOCYTES (test 0.3 % code = 1036) NUCLEATED RBCS (test code = 0.0 /100WBC'S 1065) PLATELET COUNT (test code = 284 K/UL 1015) ABSOLUTE NEUTROPHILS (test code 4.70 K/UL = 1066) ABSOLUTE LYMPHOCYTES (test code 1.97 K/UL = 1067) ABSOLUTE MONOCYTES (test code = 0.51 K/UL 1068) ABSOLUTE EOSINOPHILS (test code 0.23 K/UL = 1040) ABSOLUTE BASOPHILS (test code = 0.06 K/UL 1069) ABS IMMATURE GRANULOCYTES (test 0.02 K/UL code = 1020) ABS NUCLEATED RBCS (test code = 0.00 K/UL 68740) CBC W/AUTO [id number] 00:00:00 Test Item Value Reference Range Interpretation Comments WBC (test code = 1001) 7.5 K/UL RBC (test code = 1002) 4.98 M/UL HEMOGLOBIN (test code = 1003) 15.5 G/DL HEMATOCRIT (test code = 1004) 45.0 % MCV (test code = 1005) 90.4 fL MCH (test code = 1006) 31.1 PG MCHC (test code = 1007) 34.4 G/DL RDW (test code = 1038) 13.0 % NEUTROPHILS (test code = 1008) 62.7 % LYMPHOCYTES (test code = 1010) 26.3 % MONOCYTES (test code = 1011) 6.8 % EOSINOPHILS (test code = 1012) 3.1 % BASOPHILS (test code = 1013) 0.8 % IMMATURE GRANULOCYTES (test 0.3 % code = 1036) NUCLEATED RBCS (test code = 0.0 /100WBC'S 1065) PLATELET COUNT (test code = 284 K/UL 1015) ABSOLUTE NEUTROPHILS (test code 4.70 K/UL = 1066) ABSOLUTE LYMPHOCYTES (test code 1.97 K/UL = 1067) ABSOLUTE MONOCYTES (test code = 0.51 K/UL 1068) ABSOLUTE EOSINOPHILS (test code 0.23 K/UL = 1040) ABSOLUTE BASOPHILS (test code = 0.06 K/UL 1069) ABS IMMATURE GRANULOCYTES (test 0.02 K/UL code = 1020) ABS NUCLEATED RBCS (test code = 0.00 K/UL 86428) CBC W/AUTO [id number] 00:00:00 Test Item Value Reference Range Interpretation Comments WBC (test code = 1001) 7.5 K/UL RBC (test code = 1002) 4.98 M/UL HEMOGLOBIN (test code = 1003) 15.5 G/DL HEMATOCRIT (test code = 1004) 45.0 % MCV (test code = 1005) 90.4 fL MCH (test code = 1006) 31.1 PG MCHC (test code = 1007) 34.4 G/DL RDW (test code = 1038) 13.0 % NEUTROPHILS (test code = 1008) 62.7 % LYMPHOCYTES (test code = 1010) 26.3 % MONOCYTES (test code = 1011) 6.8 % EOSINOPHILS (test code = 1012) 3.1 % BASOPHILS (test code = 1013) 0.8 % IMMATURE GRANULOCYTES (test 0.3 % code = 1036) NUCLEATED RBCS (test code = 0.0 /100WBC'S 1065) PLATELET COUNT (test code = 284 K/UL 1015) ABSOLUTE NEUTROPHILS (test code 4.70 K/UL = 1066) ABSOLUTE LYMPHOCYTES (test code 1.97 K/UL = 1067) ABSOLUTE MONOCYTES (test code = 0.51 K/UL 1068) ABSOLUTE EOSINOPHILS (test code 0.23 K/UL = 1040) ABSOLUTE BASOPHILS (test code = 0.06 K/UL 1069) ABS IMMATURE GRANULOCYTES (test 0.02 K/UL code = 1020) ABS NUCLEATED RBCS (test code = 0.00 K/UL 90927) COMPREHENSIVE METABOLIC [id number] 00:00:00 Test Item Value Reference Range Interpretation Comments GLUCOSE (test code = 2217) 100 MG/DL BUN (test code = 2208) 13 MG/DL CREATININE (test code = 2214) 0.63 MG/DL eGFR (2020 CKD-EPI) (test 105 ML/MIN/1.73 code = 22403) CALC BUN/CREAT (test code = 21 RATIO 2235) SODIUM (test code = 2231) 141 MEQ/L POTASSIUM (test code = 2228) 4.5 MEQ/L CHLORIDE (test code = 2215) 109 MEQ/L CARBON DIOXIDE (test code = 23 MEQ/L 2206) CALCIUM (test code = 2209) 11.1 MG/DL PROTEIN, TOTAL (test code = 7.0 G/DL 222) ALBUMIN (test code = 2201) 4.0 G/DL CALC GLOBULIN (test code = 3.0 G/DL 2240) CALC A/G RATIO (test code = 1.3 RATIO 2234) BILIRUBIN, TOTAL (test code = 0.6 MG/DL 2206) ALKALINE PHOSPHATASE (test 99 U/L code = 2204) AST (test code = 2218) 23 U/L ALT (test code = 2219) 33 U/L COMPREHENSIVE METABOLIC [id number] 00:00:00 Test Item Value Reference Range Interpretation Comments GLUCOSE (test code = 2217) 100 MG/DL BUN (test code = 2208) 13 MG/DL CREATININE (test code = 2214) 0.63 MG/DL eGFR (2020 CKD-EPI) (test 105 ML/MIN/1.73 code = 35458) CALC BUN/CREAT (test code = 21 RATIO 2235) SODIUM (test code = 2231) 141 MEQ/L POTASSIUM (test code = 2228) 4.5 MEQ/L CHLORIDE (test code = 2215) 109 MEQ/L CARBON DIOXIDE (test code = 23 MEQ/L 2206) CALCIUM (test code = 2209) 11.1 MG/DL PROTEIN, TOTAL (test code = 7.0 G/DL 2229) ALBUMIN (test code = 2201) 4.0 G/DL CALC GLOBULIN (test code = 3.0 G/DL 2240) CALC A/G RATIO (test code = 1.3 RATIO 2234) BILIRUBIN, TOTAL (test code = 0.6 MG/DL 2206) ALKALINE PHOSPHATASE (test 99 U/L code = 2204) AST (test code = 2218) 23 U/L ALT (test code = 2219) 33 U/L CBC W/AUTO [id number] 00:00:00 Test Item Value Reference Range Interpretation Comments WBC (test code = 1001) 7.5 K/UL RBC (test code = 1002) 4.98 M/UL HEMOGLOBIN (test code = 1003) 15.5 G/DL HEMATOCRIT (test code = 1004) 45.0 % MCV (test code = 1005) 90.4 fL MCH (test code = 1006) 31.1 PG MCHC (test code = 1007) 34.4 G/DL RDW (test code = 1038) 13.0 % NEUTROPHILS (test code = 1008) 62.7 % LYMPHOCYTES (test code = 1010) 26.3 % MONOCYTES (test code = 1011) 6.8 % EOSINOPHILS (test code = 1012) 3.1 % BASOPHILS (test code = 1013) 0.8 % IMMATURE GRANULOCYTES (test 0.3 % code = 1036) NUCLEATED RBCS (test code = 0.0 /100WBC'S 1065) PLATELET COUNT (test code = 284 K/UL 1015) ABSOLUTE NEUTROPHILS (test code 4.70 K/UL = 1066) ABSOLUTE LYMPHOCYTES (test code 1.97 K/UL = 1067) ABSOLUTE MONOCYTES (test code = 0.51 K/UL 1068) ABSOLUTE EOSINOPHILS (test code 0.23 K/UL = 1040) ABSOLUTE BASOPHILS (test code = 0.06 K/UL 1069) ABS IMMATURE GRANULOCYTES (test 0.02 K/UL code = 1020) ABS NUCLEATED RBCS (test code = 0.00 K/UL 99332) CBC W/AUTO [id number] 00:00:00 Test Item Value Reference Range Interpretation Comments WBC (test code = 1001) 7.5 K/UL RBC (test code = 1002) 4.98 M/UL HEMOGLOBIN (test code = 1003) 15.5 G/DL HEMATOCRIT (test code = 1004) 45.0 % MCV (test code = 1005) 90.4 fL MCH (test code = 1006) 31.1 PG MCHC (test code = 1007) 34.4 G/DL RDW (test code = 1038) 13.0 % NEUTROPHILS (test code = 1008) 62.7 % LYMPHOCYTES (test code = 1010) 26.3 % MONOCYTES (test code = 1011) 6.8 % EOSINOPHILS (test code = 1012) 3.1 % BASOPHILS (test code = 1013) 0.8 % IMMATURE GRANULOCYTES (test 0.3 % code = 1036) NUCLEATED RBCS (test code = 0.0 /100WBC'S 1065) PLATELET COUNT (test code = 284 K/UL 1015) ABSOLUTE NEUTROPHILS (test code 4.70 K/UL = 1066) ABSOLUTE LYMPHOCYTES (test code 1.97 K/UL = 1067) ABSOLUTE MONOCYTES (test code = 0.51 K/UL 1068) ABSOLUTE EOSINOPHILS (test code 0.23 K/UL = 1040) ABSOLUTE BASOPHILS (test code = 0.06 K/UL 1069) ABS IMMATURE GRANULOCYTES (test 0.02 K/UL code = 1020) ABS NUCLEATED RBCS (test code = 0.00 K/UL 87983) CBC W/AUTO [id number] 00:00:00 Test Item Value Reference Range Interpretation Comments WBC (test code = 1001) 7.5 K/UL RBC (test code = 1002) 4.98 M/UL HEMOGLOBIN (test code = 1003) 15.5 G/DL HEMATOCRIT (test code = 1004) 45.0 % MCV (test code = 1005) 90.4 fL MCH (test code = 1006) 31.1 PG MCHC (test code = 1007) 34.4 G/DL RDW (test code = 1038) 13.0 % NEUTROPHILS (test code = 1008) 62.7 % LYMPHOCYTES (test code = 1010) 26.3 % MONOCYTES (test code = 1011) 6.8 % EOSINOPHILS (test code = 1012) 3.1 % BASOPHILS (test code = 1013) 0.8 % IMMATURE GRANULOCYTES (test 0.3 % code = 1036) NUCLEATED RBCS (test code = 0.0 /100WBC'S 1065) PLATELET COUNT (test code = 284 K/UL 1015) ABSOLUTE NEUTROPHILS (test code 4.70 K/UL = 1066) ABSOLUTE LYMPHOCYTES (test code 1.97 K/UL = 1067) ABSOLUTE MONOCYTES (test code = 0.51 K/UL 1068) ABSOLUTE EOSINOPHILS (test code 0.23 K/UL = 1040) ABSOLUTE BASOPHILS (test code = 0.06 K/UL 1069) ABS IMMATURE GRANULOCYTES (test 0.02 K/UL code = 1020) ABS NUCLEATED RBCS (test code = 0.00 K/UL 14513) COMPREHENSIVE METABOLIC [id number] 00:00:00 Test Item Value Reference Range Interpretation Comments GLUCOSE (test code = 2217) 100 MG/DL BUN (test code = 2208) 13 MG/DL CREATININE (test code = 2214) 0.63 MG/DL eGFR (2020 CKD-EPI) (test 105 ML/MIN/1.73 code = 80270) CALC BUN/CREAT (test code = 21 RATIO 2235) SODIUM (test code = 2231) 141 MEQ/L POTASSIUM (test code = 2228) 4.5 MEQ/L CHLORIDE (test code = 2215) 109 MEQ/L CARBON DIOXIDE (test code = 23 MEQ/L 220) CALCIUM (test code = 2209) 11.1 MG/DL PROTEIN, TOTAL (test code = 7.0 G/DL 2228) ALBUMIN (test code = 2201) 4.0 G/DL CALC GLOBULIN (test code = 3.0 G/DL 2240) CALC A/G RATIO (test code = 1.3 RATIO 2234) BILIRUBIN, TOTAL (test code = 0.6 MG/DL 2206) ALKALINE PHOSPHATASE (test 99 U/L code = 2204) AST (test code = 2218) 23 U/L ALT (test code = 2219) 33 U/L COMPREHENSIVE METABOLIC [id number] 00:00:00 Test Item Value Reference Range Interpretation Comments GLUCOSE (test code = 2217) 100 MG/DL BUN (test code = 2208) 13 MG/DL CREATININE (test code = 2214) 0.63 MG/DL eGFR (2020 CKD-EPI) (test 105 ML/MIN/1.73 code = 65697) CALC BUN/CREAT (test code = 21 RATIO 2235) SODIUM (test code = 2231) 141 MEQ/L POTASSIUM (test code = 2228) 4.5 MEQ/L CHLORIDE (test code = 2215) 109 MEQ/L CARBON DIOXIDE (test code = 23 MEQ/L 2206) CALCIUM (test code = 2209) 11.1 MG/DL PROTEIN, TOTAL (test code = 7.0 G/DL 222) ALBUMIN (test code = 2201) 4.0 G/DL CALC GLOBULIN (test code = 3.0 G/DL 2240) CALC A/G RATIO (test code = 1.3 RATIO 2234) BILIRUBIN, TOTAL (test code = 0.6 MG/DL 2207) ALKALINE PHOSPHATASE (test 99 U/L code = 2204) AST (test code = 2218) 23 U/L ALT (test code = 2219) 33 U/L CBC W/AUTO [id number] 00:00:00 Test Item Value Reference Range Interpretation Comments WBC (test code = 1001) 7.5 K/UL RBC (test code = 1002) 4.98 M/UL HEMOGLOBIN (test code = 1003) 15.5 G/DL HEMATOCRIT (test code = 1004) 45.0 % MCV (test code = 1005) 90.4 fL MCH (test code = 1006) 31.1 PG MCHC (test code = 1007) 34.4 G/DL RDW (test code = 1038) 13.0 % NEUTROPHILS (test code = 1008) 62.7 % LYMPHOCYTES (test code = 1010) 26.3 % MONOCYTES (test code = 1011) 6.8 % EOSINOPHILS (test code = 1012) 3.1 % BASOPHILS (test code = 1013) 0.8 % IMMATURE GRANULOCYTES (test 0.3 % code = 1036) NUCLEATED RBCS (test code = 0.0 /100WBC'S 1065) PLATELET COUNT (test code = 284 K/UL 1015) ABSOLUTE NEUTROPHILS (test code 4.70 K/UL = 1066) ABSOLUTE LYMPHOCYTES (test code 1.97 K/UL = 1067) ABSOLUTE MONOCYTES (test code = 0.51 K/UL 1068) ABSOLUTE EOSINOPHILS (test code 0.23 K/UL = 1040) ABSOLUTE BASOPHILS (test code = 0.06 K/UL 1069) ABS IMMATURE GRANULOCYTES (test 0.02 K/UL code = 1020) ABS NUCLEATED RBCS (test code = 0.00 K/UL 10466) CBC W/AUTO [id number] 00:00:00 Test Item Value Reference Range Interpretation Comments WBC (test code = 1001) 7.5 K/UL RBC (test code = 1002) 4.98 M/UL HEMOGLOBIN (test code = 1003) 15.5 G/DL HEMATOCRIT (test code = 1004) 45.0 % MCV (test code = 1005) 90.4 fL MCH (test code = 1006) 31.1 PG MCHC (test code = 1007) 34.4 G/DL RDW (test code = 1038) 13.0 % NEUTROPHILS (test code = 1008) 62.7 % LYMPHOCYTES (test code = 1010) 26.3 % MONOCYTES (test code = 1011) 6.8 % EOSINOPHILS (test code = 1012) 3.1 % BASOPHILS (test code = 1013) 0.8 % IMMATURE GRANULOCYTES (test 0.3 % code = 1036) NUCLEATED RBCS (test code = 0.0 /100WBC'S 1065) PLATELET COUNT (test code = 284 K/UL 1015) ABSOLUTE NEUTROPHILS (test code 4.70 K/UL = 1066) ABSOLUTE LYMPHOCYTES (test code 1.97 K/UL = 1067) ABSOLUTE MONOCYTES (test code = 0.51 K/UL 1068) ABSOLUTE EOSINOPHILS (test code 0.23 K/UL = 1040) ABSOLUTE BASOPHILS (test code = 0.06 K/UL 1069) ABS IMMATURE GRANULOCYTES (test 0.02 K/UL code = 1020) ABS NUCLEATED RBCS (test code = 0.00 K/UL 24463) CBC W/AUTO [id number] 00:00:00 Test Item Value Reference Range Interpretation Comments WBC (test code = 1001) 7.5 K/UL RBC (test code = 1002) 4.98 M/UL HEMOGLOBIN (test code = 1003) 15.5 G/DL HEMATOCRIT (test code = 1004) 45.0 % MCV (test code = 1005) 90.4 fL MCH (test code = 1006) 31.1 PG MCHC (test code = 1007) 34.4 G/DL RDW (test code = 1038) 13.0 % NEUTROPHILS (test code = 1008) 62.7 % LYMPHOCYTES (test code = 1010) 26.3 % MONOCYTES (test code = 1011) 6.8 % EOSINOPHILS (test code = 1012) 3.1 % BASOPHILS (test code = 1013) 0.8 % IMMATURE GRANULOCYTES (test 0.3 % code = 1036) NUCLEATED RBCS (test code = 0.0 /100WBC'S 1065) PLATELET COUNT (test code = 284 K/UL 1015) ABSOLUTE NEUTROPHILS (test code 4.70 K/UL = 1066) ABSOLUTE LYMPHOCYTES (test code 1.97 K/UL = 1067) ABSOLUTE MONOCYTES (test code = 0.51 K/UL 1068) ABSOLUTE EOSINOPHILS (test code 0.23 K/UL = 1040) ABSOLUTE BASOPHILS (test code = 0.06 K/UL 1069) ABS IMMATURE GRANULOCYTES (test 0.02 K/UL code = 1020) ABS NUCLEATED RBCS (test code = 0.00 K/UL 05110) COMPREHENSIVE METABOLIC [id number] 00:00:00 Test Item Value Reference Range Interpretation Comments GLUCOSE (test code = 2217) 100 MG/DL BUN (test code = 2208) 13 MG/DL CREATININE (test code = 2214) 0.63 MG/DL eGFR (2020 CKD-EPI) (test 105 ML/MIN/1.73 code = 40545) CALC BUN/CREAT (test code = 21 RATIO 2235) SODIUM (test code = 2231) 141 MEQ/L POTASSIUM (test code = 2228) 4.5 MEQ/L CHLORIDE (test code = 2215) 109 MEQ/L CARBON DIOXIDE (test code = 23 MEQ/L 220) CALCIUM (test code = 2209) 11.1 MG/DL PROTEIN, TOTAL (test code = 7.0 G/DL 2228) ALBUMIN (test code = 2201) 4.0 G/DL CALC GLOBULIN (test code = 3.0 G/DL 2240) CALC A/G RATIO (test code = 1.3 RATIO 4) BILIRUBIN, TOTAL (test code = 0.6 MG/DL 2206) ALKALINE PHOSPHATASE (test 99 U/L code = 2204) AST (test code = 2218) 23 U/L ALT (test code = 2219) 33 U/L COMPREHENSIVE METABOLIC [id number] 00:00:00 Test Item Value Reference Range Interpretation Comments GLUCOSE (test code = 2217) 100 MG/DL BUN (test code = 2208) 13 MG/DL CREATININE (test code = 2214) 0.63 MG/DL eGFR (2020 CKD-EPI) (test 105 ML/MIN/1.73 code = 12776) CALC BUN/CREAT (test code = 21 RATIO 2235) SODIUM (test code = 2231) 141 MEQ/L POTASSIUM (test code = 2228) 4.5 MEQ/L CHLORIDE (test code = 2215) 109 MEQ/L CARBON DIOXIDE (test code = 23 MEQ/L 220) CALCIUM (test code = 2209) 11.1 MG/DL PROTEIN, TOTAL (test code = 7.0 G/DL 2229) ALBUMIN (test code = 2201) 4.0 G/DL CALC GLOBULIN (test code = 3.0 G/DL 2240) CALC A/G RATIO (test code = 1.3 RATIO 2234) BILIRUBIN, TOTAL (test code = 0.6 MG/DL 2207) ALKALINE PHOSPHATASE (test 99 U/L code = 2204) AST (test code = 2218) 23 U/L ALT (test code = 2219) 33 U/L CBC W/AUTO [id number] 00:00:00 Test Item Value Reference Range Interpretation Comments WBC (test code = 1001) 7.5 K/UL RBC (test code = 1002) 4.98 M/UL HEMOGLOBIN (test code = 1003) 15.5 G/DL HEMATOCRIT (test code = 1004) 45.0 % MCV (test code = 1005) 90.4 fL MCH (test code = 1006) 31.1 PG MCHC (test code = 1007) 34.4 G/DL RDW (test code = 1038) 13.0 % NEUTROPHILS (test code = 1008) 62.7 % LYMPHOCYTES (test code = 1010) 26.3 % MONOCYTES (test code = 1011) 6.8 % EOSINOPHILS (test code = 1012) 3.1 % BASOPHILS (test code = 1013) 0.8 % IMMATURE GRANULOCYTES (test 0.3 % code = 1036) NUCLEATED RBCS (test code = 0.0 /100WBC'S 1065) PLATELET COUNT (test code = 284 K/UL 1015) ABSOLUTE NEUTROPHILS (test code 4.70 K/UL = 1066) ABSOLUTE LYMPHOCYTES (test code 1.97 K/UL = 1067) ABSOLUTE MONOCYTES (test code = 0.51 K/UL 1068) ABSOLUTE EOSINOPHILS (test code 0.23 K/UL = 1040) ABSOLUTE BASOPHILS (test code = 0.06 K/UL 1069) ABS IMMATURE GRANULOCYTES (test 0.02 K/UL code = 1020) ABS NUCLEATED RBCS (test code = 0.00 K/UL 80534) CBC W/AUTO [id number] 00:00:00 Test Item Value Reference Range Interpretation Comments WBC (test code = 1001) 7.5 K/UL RBC (test code = 1002) 4.98 M/UL HEMOGLOBIN (test code = 1003) 15.5 G/DL HEMATOCRIT (test code = 1004) 45.0 % MCV (test code = 1005) 90.4 fL MCH (test code = 1006) 31.1 PG MCHC (test code = 1007) 34.4 G/DL RDW (test code = 1038) 13.0 % NEUTROPHILS (test code = 1008) 62.7 % LYMPHOCYTES (test code = 1010) 26.3 % MONOCYTES (test code = 1011) 6.8 % EOSINOPHILS (test code = 1012) 3.1 % BASOPHILS (test code = 1013) 0.8 % IMMATURE GRANULOCYTES (test 0.3 % code = 1036) NUCLEATED RBCS (test code = 0.0 /100WBC'S 1065) PLATELET COUNT (test code = 284 K/UL 1015) ABSOLUTE NEUTROPHILS (test code 4.70 K/UL = 1066) ABSOLUTE LYMPHOCYTES (test code 1.97 K/UL = 1067) ABSOLUTE MONOCYTES (test code = 0.51 K/UL 1068) ABSOLUTE EOSINOPHILS (test code 0.23 K/UL = 1040) ABSOLUTE BASOPHILS (test code = 0.06 K/UL 1069) ABS IMMATURE GRANULOCYTES (test 0.02 K/UL code = 1020) ABS NUCLEATED RBCS (test code = 0.00 K/UL 46076) CBC W/AUTO [id number] 00:00:00 Test Item Value Reference Range Interpretation Comments WBC (test code = 1001) 7.5 K/UL RBC (test code = 1002) 4.98 M/UL HEMOGLOBIN (test code = 1003) 15.5 G/DL HEMATOCRIT (test code = 1004) 45.0 % MCV (test code = 1005) 90.4 fL MCH (test code = 1006) 31.1 PG MCHC (test code = 1007) 34.4 G/DL RDW (test code = 1038) 13.0 % NEUTROPHILS (test code = 1008) 62.7 % LYMPHOCYTES (test code = 1010) 26.3 % MONOCYTES (test code = 1011) 6.8 % EOSINOPHILS (test code = 1012) 3.1 % BASOPHILS (test code = 1013) 0.8 % IMMATURE GRANULOCYTES (test 0.3 % code = 1036) NUCLEATED RBCS (test code = 0.0 /100WBC'S 1065) PLATELET COUNT (test code = 284 K/UL 1015) ABSOLUTE NEUTROPHILS (test code 4.70 K/UL = 1066) ABSOLUTE LYMPHOCYTES (test code 1.97 K/UL = 1067) ABSOLUTE MONOCYTES (test code = 0.51 K/UL 1068) ABSOLUTE EOSINOPHILS (test code 0.23 K/UL = 1040) ABSOLUTE BASOPHILS (test code = 0.06 K/UL 1069) ABS IMMATURE GRANULOCYTES (test 0.02 K/UL code = 1020) ABS NUCLEATED RBCS (test code = 0.00 K/UL 58923) CBC W/AUTO [id number] 00:00:00 Test Item Value Reference Range Interpretation Comments WBC (test code = 1001) 7.5 K/UL RBC (test code = 1002) 4.98 M/UL HEMOGLOBIN (test code = 1003) 15.5 G/DL HEMATOCRIT (test code = 1004) 45.0 % MCV (test code = 1005) 90.4 fL MCH (test code = 1006) 31.1 PG MCHC (test code = 1007) 34.4 G/DL RDW (test code = 1038) 13.0 % NEUTROPHILS (test code = 1008) 62.7 % LYMPHOCYTES (test code = 1010) 26.3 % MONOCYTES (test code = 1011) 6.8 % EOSINOPHILS (test code = 1012) 3.1 % BASOPHILS (test code = 1013) 0.8 % IMMATURE GRANULOCYTES (test 0.3 % code = 1036) NUCLEATED RBCS (test code = 0.0 /100WBC'S 1065) PLATELET COUNT (test code = 284 K/UL 1015) ABSOLUTE NEUTROPHILS (test code 4.70 K/UL = 1066) ABSOLUTE LYMPHOCYTES (test code 1.97 K/UL = 1067) ABSOLUTE MONOCYTES (test code = 0.51 K/UL 1068) ABSOLUTE EOSINOPHILS (test code 0.23 K/UL = 1040) ABSOLUTE BASOPHILS (test code = 0.06 K/UL 1069) ABS IMMATURE GRANULOCYTES (test 0.02 K/UL code = 1020) ABS NUCLEATED RBCS (test code = 0.00 K/UL 08299) CBC W/AUTO [id number] 00:00:00 Test Item Value Reference Range Interpretation Comments WBC (test code = 1001) 7.5 K/UL RBC (test code = 1002) 4.98 M/UL HEMOGLOBIN (test code = 1003) 15.5 G/DL HEMATOCRIT (test code = 1004) 45.0 % MCV (test code = 1005) 90.4 fL MCH (test code = 1006) 31.1 PG MCHC (test code = 1007) 34.4 G/DL RDW (test code = 1038) 13.0 % NEUTROPHILS (test code = 1008) 62.7 % LYMPHOCYTES (test code = 1010) 26.3 % MONOCYTES (test code = 1011) 6.8 % EOSINOPHILS (test code = 1012) 3.1 % BASOPHILS (test code = 1013) 0.8 % IMMATURE GRANULOCYTES (test 0.3 % code = 1036) NUCLEATED RBCS (test code = 0.0 /100WBC'S 1065) PLATELET COUNT (test code = 284 K/UL 1015) ABSOLUTE NEUTROPHILS (test code 4.70 K/UL = 1066) ABSOLUTE LYMPHOCYTES (test code 1.97 K/UL = 1067) ABSOLUTE MONOCYTES (test code = 0.51 K/UL 1068) ABSOLUTE EOSINOPHILS (test code 0.23 K/UL = 1040) ABSOLUTE BASOPHILS (test code = 0.06 K/UL 1069) ABS IMMATURE GRANULOCYTES (test 0.02 K/UL code = 1020) ABS NUCLEATED RBCS (test code = 0.00 K/UL 96814) COMPREHENSIVE METABOLIC [id number] 00:00:00 Test Item Value Reference Range Interpretation Comments GLUCOSE (test code = 2217) 100 MG/DL BUN (test code = 2208) 13 MG/DL CREATININE (test code = 2214) 0.63 MG/DL eGFR (2020 CKD-EPI) (test 105 ML/MIN/1.73 code = 56881) CALC BUN/CREAT (test code = 21 RATIO 2235) SODIUM (test code = 2231) 141 MEQ/L POTASSIUM (test code = 2228) 4.5 MEQ/L CHLORIDE (test code = 2215) 109 MEQ/L CARBON DIOXIDE (test code = 23 MEQ/L 2205) CALCIUM (test code = 2209) 11.1 MG/DL PROTEIN, TOTAL (test code = 7.0 G/DL 2228) ALBUMIN (test code = 2201) 4.0 G/DL CALC GLOBULIN (test code = 3.0 G/DL 2240) CALC A/G RATIO (test code = 1.3 RATIO 2234) BILIRUBIN, TOTAL (test code = 0.6 MG/DL 220) ALKALINE PHOSPHATASE (test 99 U/L code = 2204) AST (test code = 2218) 23 U/L ALT (test code = 2219) 33 U/L COMPREHENSIVE METABOLIC [id number] 00:00:00 Test Item Value Reference Range Interpretation Comments GLUCOSE (test code = 2217) 100 MG/DL BUN (test code = 2208) 13 MG/DL CREATININE (test code = 2214) 0.63 MG/DL eGFR (2020 CKD-EPI) (test 105 ML/MIN/1.73 code = 14987) CALC BUN/CREAT (test code = 21 RATIO 2235) SODIUM (test code = 2231) 141 MEQ/L POTASSIUM (test code = 2228) 4.5 MEQ/L CHLORIDE (test code = 2215) 109 MEQ/L CARBON DIOXIDE (test code = 23 MEQ/L 2206) CALCIUM (test code = 2209) 11.1 MG/DL PROTEIN, TOTAL (test code = 7.0 G/DL 2228) ALBUMIN (test code = 2201) 4.0 G/DL CALC GLOBULIN (test code = 3.0 G/DL 2240) CALC A/G RATIO (test code = 1.3 RATIO 2234) BILIRUBIN, TOTAL (test code = 0.6 MG/DL 2206) ALKALINE PHOSPHATASE (test 99 U/L code = 2204) AST (test code = 2218) 23 U/L ALT (test code = 2219) 33 U/L COMPREHENSIVE METABOLIC [id number] 00:00:00 Test Item Value Reference Range Interpretation Comments GLUCOSE (test code = 2217) 100 MG/DL BUN (test code = 2208) 13 MG/DL CREATININE (test code = 2214) 0.63 MG/DL eGFR (2020 CKD-EPI) (test 105 ML/MIN/1.73 code = 46477) CALC BUN/CREAT (test code = 21 RATIO 2235) SODIUM (test code = 2231) 141 MEQ/L POTASSIUM (test code = 2228) 4.5 MEQ/L CHLORIDE (test code = 2215) 109 MEQ/L CARBON DIOXIDE (test code = 23 MEQ/L 2206) CALCIUM (test code = 2209) 11.1 MG/DL PROTEIN, TOTAL (test code = 7.0 G/DL 2228) ALBUMIN (test code = 220) 4.0 G/DL CALC GLOBULIN (test code = 3.0 G/DL 2239) CALC A/G RATIO (test code = 1.3 RATIO 2233) BILIRUBIN, TOTAL (test code = 0.6 MG/DL 2206) ALKALINE PHOSPHATASE (test 99 U/L code = 220) AST (test code = 2218) 23 U/L ALT (test code = 221) 33 U/L CALCIUM, [id number] 11:34:01 Test Item Value Reference Range Interpretation Comments CALCIUM, IONIZED (test code = 6.01 MG/DL 4.70-5.90 H ) INTACT [id number] 08:00:45 Test Item Value Reference Range Interpretation Comments INTACT PTH (test code = 5005) 143 PG/ML 15-65 H TSH, THIRD [id number] 06:20:18 Test Item Value Reference Range Interpretation Comments TSH, THIRD GENERATION (test code 3.840 UIU/ML 0.400-4.100 = 282) [id number] 04:33:24 Test Item Value Reference Range Interpretation Comments LITHIUM (test code 0.54 MEQ/L 0.60-1.20 L UNLESS O THERWISE = 2038) INDICATED, ALL TESTING PERFORMED [facility] [address] [place] [address] 4 LABORATORY DIRE CTOR: TANNER HOPKINS M.D. CLIA NUMBER [id number] [place] [id number] COMPREHENSIVE METABOLIC [id number] 04:08:07 Test Item Value Reference Range Interpretation Comments GLUCOSE (test code = 90 MG/DL 70-99 2216) BUN (test code = 13 MG/DL -20 2207) CREATININE (test 0.74 MG/DL 0.60-1.30 code = 2213) eGFR (2020 CKD-EPI) 97 ML/MIN/1.73 >60 (test code = 83298) CALC BUN/CREAT (test 18 RATIO 6-28 code = 2235) SODIUM (test code = 142 MEQ/L 401-140 0999) POTASSIUM (test code 5.0 MEQ/L 3.5-5.4 = 222) CHLORIDE (test code 107 MEQ/L 95-107 = 221) CARBON DIOXIDE (test 22 MEQ/L 19-31 code = 220) CALCIUM (test code = 11.0 MG/DL 8.5-10.5 H 2208) PROTEIN, TOTAL (test 6.7 G/DL 6.1-8.3 code = 2229) ALBUMIN (test code = 4.2 G/DL 3.5-5.2 2200) CALC GLOBULIN (test 2.5 G/DL 1.9-3.7 code = 2240) CALC A/G RATIO (test 1.7 RATIO 1.0-2.6 code = 2234) BILIRUBIN, TOTAL 0.5 MG/DL See_Comment [Automated message] (test code = 2206) The syste m which generated this result transmit alex reference range : <=1.2. The refe rence range was not u sed to interpret th is result as normal/abnormal . ALKALINE PHOSPHATASE 94 U/L 40-133 (test code = 2203) AST (test code = 24 U/L 9-40 2217) ALT (test code = 38 U/L 5-40 2218) LIPID [id number] 04:08:07 Test Item Value Reference Range Interpretation Comments CHOLESTEROL (test 123 MG/DL <200 code = 2210) TRIGLYCERIDES (test 137 MG/DL <150 code = 2232) HDL CHOLESTEROL (test 30 MG/DL >39 L code = 2220) CALC LDL CHOL (test 71 MG/DL <100 NOTE: C ALCULATED LDL code = 2237) IS BASED ON LEELA-JERONIMO METHOD WHICHINCLUDES ADJUSTABLE TRIGLYCERIDE:VL DL CHOLESTEROL RAT IO.THIS FACTOR VARIES B Y MEASURED TRIGLY CERIDE AND NON-HDLCHOL ESTEROL CONCENTRATIONS WITH INCREASED CALCU LATED LDL SEENIN HIGH ER TRIGLYCERIDE OR LOWER NON-HDL SPECIME NS. FOR MOREINFORMATION , SEE CLIENT ANNOUNCE MENT AT [email or web address] RISK RATIO LDL/HDL 2.37 RATIO <3.22 (test code = 2238) [id number] 00:00:00 Test Item Value Reference Range Interpretation Comments LITHIUM (test code = 2038) 0.54 MEQ/L [id number] 00:00:00 Test Item Value Reference Range Interpretation Comments LITHIUM (test code = 2038) 0.54 MEQ/L [id number] 00:00:00 Test Item Value Reference Range Interpretation Comments LITHIUM (test code = 2038) 0.54 MEQ/L LIPID [id number] 00:00:00 Test Item Value Reference Range Interpretation Comments CHOLESTEROL (test code = 2210) 123 MG/DL TRIGLYCERIDES (test code = 2232) 137 MG/DL HDL CHOLESTEROL (test code = 2220) 30 MG/DL CALC LDL CHOL (test code = 2237) 71 MG/DL RISK RATIO LDL/HDL (test code = 2.37 RATIO 2238) INTACT [id number] 00:00:00 Test Item Value Reference Range Interpretation Comments INTACT PTH (test code = 5005) 143 PG/ML INTACT [id number] 00:00:00 Test Item Value Reference Range Interpretation Comments INTACT PTH (test code = 5005) 143 PG/ML IONIZED CALCIUM, [id number] 00:00:00 Test Item Value Reference Range Interpretation Comments CALCIUM, IONIZED (test code = 6.01 MG/DL 76124) [id number] 00:00:00 Test Item Value Reference Range Interpretation Comments TSH, THIRD GENERATION (test code 3.840 UIU/ML = 2821) [id number] 00:00:00 Test Item Value Reference Range Interpretation Comments LITHIUM (test code = 2038) 0.54 MEQ/L [id number] 00:00:00 Test Item Value Reference Range Interpretation Comments LITHIUM (test code = 2038) 0.54 MEQ/L [id number] 00:00:00 Test Item Value Reference Range Interpretation Comments TSH, THIRD GENERATION (test code 3.840 UIU/ML = 2821) [id number] 00:00:00 Test Item Value Reference Range Interpretation Comments TSH, THIRD GENERATION (test code 3.840 UIU/ML = 2821) COMPREHENSIVE METABOLIC [id number] 00:00:00 Test Item Value Reference Range Interpretation Comments GLUCOSE (test code = 2217) 90 MG/DL BUN (test code = 2208) 13 MG/DL CREATININE (test code = 2214) 0.74 MG/DL eGFR (2020 CKD-EPI) (test code 97 ML/MIN/1.73 = 91299) CALC BUN/CREAT (test code = 18 RATIO 2235) SODIUM (test code = 2231) 142 MEQ/L POTASSIUM (test code = 2228) 5.0 MEQ/L CHLORIDE (test code = 2215) 107 MEQ/L CARBON DIOXIDE (test code = 22 MEQ/L 2206) CALCIUM (test code = 2209) 11.0 MG/DL PROTEIN, TOTAL (test code = 6.7 G/DL 222) ALBUMIN (test code = 2201) 4.2 G/DL CALC GLOBULIN (test code = 2.5 G/DL 2240) CALC A/G RATIO (test code = 1.7 RATIO 2234) BILIRUBIN, TOTAL (test code = 0.5 MG/DL 2206) ALKALINE PHOSPHATASE (test 94 U/L code = 2204) AST (test code = 2218) 24 U/L ALT (test code = 2219) 38 U/L COMPREHENSIVE METABOLIC [id number] 00:00:00 Test Item Value Reference Range Interpretation Comments GLUCOSE (test code = 2217) 90 MG/DL BUN (test code = 2208) 13 MG/DL CREATININE (test code = 2214) 0.74 MG/DL eGFR (2020 CKD-EPI) (test code 97 ML/MIN/1.73 = 13441) CALC BUN/CREAT (test code = 18 RATIO 2235) SODIUM (test code = 2231) 142 MEQ/L POTASSIUM (test code = 2228) 5.0 MEQ/L CHLORIDE (test code = 2215) 107 MEQ/L CARBON DIOXIDE (test code = 22 MEQ/L 2206) CALCIUM (test code = 2209) 11.0 MG/DL PROTEIN, TOTAL (test code = 6.7 G/DL 9) ALBUMIN (test code = 2201) 4.2 G/DL CALC GLOBULIN (test code = 2.5 G/DL 2240) CALC A/G RATIO (test code = 1.7 RATIO 2234) BILIRUBIN, TOTAL (test code = 0.5 MG/DL 7) ALKALINE PHOSPHATASE (test 94 U/L code = 2204) AST (test code = 2218) 24 U/L ALT (test code = 2219) 38 U/L LIPID [id number] 00:00:00 Test Item Value Reference Range Interpretation Comments CHOLESTEROL (test code = 2210) 123 MG/DL TRIGLYCERIDES (test code = 2232) 137 MG/DL HDL CHOLESTEROL (test code = 2220) 30 MG/DL CALC LDL CHOL (test code = 2237) 71 MG/DL RISK RATIO LDL/HDL (test code = 2.37 RATIO 2238) LIPID [id number] 00:00:00 Test Item Value Reference Range Interpretation Comments CHOLESTEROL (test code = 2210) 123 MG/DL TRIGLYCERIDES (test code = 2232) 137 MG/DL HDL CHOLESTEROL (test code = 2220) 30 MG/DL CALC LDL CHOL (test code = 2237) 71 MG/DL RISK RATIO LDL/HDL (test code = 2.37 RATIO 2238) INTACT [id number] 00:00:00 Test Item Value Reference Range Interpretation Comments INTACT PTH (test code = 5005) 143 PG/ML INTACT [id number] 00:00:00 Test Item Value Reference Range Interpretation Comments INTACT PTH (test code = 5005) 143 PG/ML INTACT [id number] 00:00:00 Test Item Value Reference Range Interpretation Comments INTACT PTH (test code = 5005) 143 PG/ML IONIZED CALCIUM, [id number] 00:00:00 Test Item Value Reference Range Interpretation Comments CALCIUM, IONIZED (test code = 6.01 MG/DL 84760) IONIZED CALCIUM, [id number] 00:00:00 Test Item Value Reference Range Interpretation Comments CALCIUM, IONIZED (test code = 6.01 MG/DL 07591) [id number] 00:00:00 Test Item Value Reference Range Interpretation Comments LITHIUM (test code = 2039) 0.54 MEQ/L [id number] 00:00:00 Test Item Value Reference Range Interpretation Comments LITHIUM (test code = 2039) 0.54 MEQ/L [id number] 00:00:00 Test Item Value Reference Range Interpretation Comments LITHIUM (test code = 2039) 0.54 MEQ/L [id number] 00:00:00 Test Item Value Reference Range Interpretation Comments TSH, THIRD GENERATION (test code 3.840 UIU/ML = 2821) [id number] 00:00:00 Test Item Value Reference Range Interpretation Comments TSH, THIRD GENERATION (test code 3.840 UIU/ML = 2821) [id number] 00:00:00 Test Item Value Reference Range Interpretation Comments TSH, THIRD GENERATION (test code 3.840 UIU/ML = 2821) COMPREHENSIVE METABOLIC [id number] 00:00:00 Test Item Value Reference Range Interpretation Comments GLUCOSE (test code = 2217) 90 MG/DL BUN (test code = 2208) 13 MG/DL CREATININE (test code = 2214) 0.74 MG/DL eGFR (2020 CKD-EPI) (test code 97 ML/MIN/1.73 = 28592) CALC BUN/CREAT (test code = 18 RATIO 2235) SODIUM (test code = 2231) 142 MEQ/L POTASSIUM (test code = 2228) 5.0 MEQ/L CHLORIDE (test code = 2215) 107 MEQ/L CARBON DIOXIDE (test code = 22 MEQ/L 2205) CALCIUM (test code = 2209) 11.0 MG/DL PROTEIN, TOTAL (test code = 6.7 G/DL 2228) ALBUMIN (test code = 2201) 4.2 G/DL CALC GLOBULIN (test code = 2.5 G/DL 2239) CALC A/G RATIO (test code = 1.7 RATIO 2234) BILIRUBIN, TOTAL (test code = 0.5 MG/DL 2206) ALKALINE PHOSPHATASE (test 94 U/L code = 2204) AST (test code = 2218) 24 U/L ALT (test code = 2219) 38 U/L COMPREHENSIVE METABOLIC [id number] 00:00:00 Test Item Value Reference Range Interpretation Comments GLUCOSE (test code = 2217) 90 MG/DL BUN (test code = 2208) 13 MG/DL CREATININE (test code = 2214) 0.74 MG/DL eGFR (2020 CKD-EPI) (test code 97 ML/MIN/1.73 = 10227) CALC BUN/CREAT (test code = 18 RATIO 2235) SODIUM (test code = 2231) 142 MEQ/L POTASSIUM (test code = 2228) 5.0 MEQ/L CHLORIDE (test code = 2215) 107 MEQ/L CARBON DIOXIDE (test code = 22 MEQ/L 220) CALCIUM (test code = 2209) 11.0 MG/DL PROTEIN, TOTAL (test code = 6.7 G/DL 2228) ALBUMIN (test code = 2201) 4.2 G/DL CALC GLOBULIN (test code = 2.5 G/DL 2240) CALC A/G RATIO (test code = 1.7 RATIO 2234) BILIRUBIN, TOTAL (test code = 0.5 MG/DL 2206) ALKALINE PHOSPHATASE (test 94 U/L code = 2204) AST (test code = 2218) 24 U/L ALT (test code = 2219) 38 U/L LIPID [id number] 00:00:00 Test Item Value Reference Range Interpretation Comments CHOLESTEROL (test code = 2210) 123 MG/DL TRIGLYCERIDES (test code = 2232) 137 MG/DL HDL CHOLESTEROL (test code = 2220) 30 MG/DL CALC LDL CHOL (test code = 2237) 71 MG/DL RISK RATIO LDL/HDL (test code = 2.37 RATIO 2238) LIPID [id number] 00:00:00 Test Item Value Reference Range Interpretation Comments CHOLESTEROL (test code = 2210) 123 MG/DL TRIGLYCERIDES (test code = 2232) 137 MG/DL HDL CHOLESTEROL (test code = 2220) 30 MG/DL CALC LDL CHOL (test code = 2237) 71 MG/DL RISK RATIO LDL/HDL (test code = 2.37 RATIO 2238) INTACT [id number] 00:00:00 Test Item Value Reference Range Interpretation Comments INTACT PTH (test code = 5005) 143 PG/ML INTACT [id number] 00:00:00 Test Item Value Reference Range Interpretation Comments INTACT PTH (test code = 5005) 143 PG/ML INTACT [id number] 00:00:00 Test Item Value Reference Range Interpretation Comments INTACT PTH (test code = 5005) 143 PG/ML IONIZED CALCIUM, [id number] 00:00:00 Test Item Value Reference Range Interpretation Comments CALCIUM, IONIZED (test code = 6.01 MG/DL 25168) IONIZED CALCIUM, [id number] 00:00:00 Test Item Value Reference Range Interpretation Comments CALCIUM, IONIZED (test code = 6.01 MG/DL 85971) [id number] 00:00:00 Test Item Value Reference Range Interpretation Comments LITHIUM (test code = 2039) 0.54 MEQ/L [id number] 00:00:00 Test Item Value Reference Range Interpretation Comments LITHIUM (test code = 2039) 0.54 MEQ/L [id number] 00:00:00 Test Item Value Reference Range Interpretation Comments LITHIUM (test code = 203) 0.54 MEQ/L [id number] 00:00:00 Test Item Value Reference Range Interpretation Comments TSH, THIRD GENERATION (test code 3.840 UIU/ML = 2821) [id number] 00:00:00 Test Item Value Reference Range Interpretation Comments TSH, THIRD GENERATION (test code 3.840 UIU/ML = 2821) [id number] 00:00:00 Test Item Value Reference Range Interpretation Comments TSH, THIRD GENERATION (test code 3.840 UIU/ML = 2821) COMPREHENSIVE METABOLIC [id number] 00:00:00 Test Item Value Reference Range Interpretation Comments GLUCOSE (test code = 2217) 90 MG/DL BUN (test code = 2208) 13 MG/DL CREATININE (test code = 2214) 0.74 MG/DL eGFR (2020 CKD-EPI) (test code 97 ML/MIN/1.73 = 30071) CALC BUN/CREAT (test code = 18 RATIO 2235) SODIUM (test code = 2231) 142 MEQ/L POTASSIUM (test code = 2228) 5.0 MEQ/L CHLORIDE (test code = 2215) 107 MEQ/L CARBON DIOXIDE (test code = 22 MEQ/L 2205) CALCIUM (test code = 2209) 11.0 MG/DL PROTEIN, TOTAL (test code = 6.7 G/DL 2228) ALBUMIN (test code = 2201) 4.2 G/DL CALC GLOBULIN (test code = 2.5 G/DL 2240) CALC A/G RATIO (test code = 1.7 RATIO 2234) BILIRUBIN, TOTAL (test code = 0.5 MG/DL 2206) ALKALINE PHOSPHATASE (test 94 U/L code = 2204) AST (test code = 2218) 24 U/L ALT (test code = 2219) 38 U/L COMPREHENSIVE METABOLIC [id number] 00:00:00 Test Item Value Reference Range Interpretation Comments GLUCOSE (test code = 2217) 90 MG/DL BUN (test code = 2208) 13 MG/DL CREATININE (test code = 2214) 0.74 MG/DL eGFR (2020 CKD-EPI) (test code 97 ML/MIN/1.73 = 28615) CALC BUN/CREAT (test code = 18 RATIO 2235) SODIUM (test code = 2231) 142 MEQ/L POTASSIUM (test code = 2228) 5.0 MEQ/L CHLORIDE (test code = 2215) 107 MEQ/L CARBON DIOXIDE (test code = 22 MEQ/L 2205) CALCIUM (test code = 2209) 11.0 MG/DL PROTEIN, TOTAL (test code = 6.7 G/DL 2228) ALBUMIN (test code = 2201) 4.2 G/DL CALC GLOBULIN (test code = 2.5 G/DL 224) CALC A/G RATIO (test code = 1.7 RATIO 2234) BILIRUBIN, TOTAL (test code = 0.5 MG/DL 2206) ALKALINE PHOSPHATASE (test 94 U/L code = 2204) AST (test code = 2218) 24 U/L ALT (test code = 2219) 38 U/L LIPID [id number] 00:00:00 Test Item Value Reference Range Interpretation Comments CHOLESTEROL (test code = 2210) 123 MG/DL TRIGLYCERIDES (test code = 2232) 137 MG/DL HDL CHOLESTEROL (test code = 2220) 30 MG/DL CALC LDL CHOL (test code = 2237) 71 MG/DL RISK RATIO LDL/HDL (test code = 2.37 RATIO 2238) LIPID [id number] 00:00:00 Test Item Value Reference Range Interpretation Comments CHOLESTEROL (test code = 2210) 123 MG/DL TRIGLYCERIDES (test code = 2232) 137 MG/DL HDL CHOLESTEROL (test code = 2220) 30 MG/DL CALC LDL CHOL (test code = 2237) 71 MG/DL RISK RATIO LDL/HDL (test code = 2.37 RATIO 2238) INTACT [id number] 00:00:00 Test Item Value Reference Range Interpretation Comments INTACT PTH (test code = 5005) 143 PG/ML INTACT [id number] 00:00:00 Test Item Value Reference Range Interpretation Comments INTACT PTH (test code = 5005) 143 PG/ML INTACT [id number] 00:00:00 Test Item Value Reference Range Interpretation Comments INTACT PTH (test code = 5005) 143 PG/ML IONIZED CALCIUM, [id number] 00:00:00 Test Item Value Reference Range Interpretation Comments CALCIUM, IONIZED (test code = 6.01 MG/DL 55127) IONIZED CALCIUM, [id number] 00:00:00 Test Item Value Reference Range Interpretation Comments CALCIUM, IONIZED (test code = 6.01 MG/DL 98181) [id number] 00:00:00 Test Item Value Reference Range Interpretation Comments LITHIUM (test code = 2039) 0.54 MEQ/L [id number] 00:00:00 Test Item Value Reference Range Interpretation Comments LITHIUM (test code = 2039) 0.54 MEQ/L [id number] 00:00:00 Test Item Value Reference Range Interpretation Comments LITHIUM (test code = 2039) 0.54 MEQ/L [id number] 00:00:00 Test Item Value Reference Range Interpretation Comments TSH, THIRD GENERATION (test code 3.840 UIU/ML = 2821) [id number] 00:00:00 Test Item Value Reference Range Interpretation Comments TSH, THIRD GENERATION (test code 3.840 UIU/ML = 2821) [id number] 00:00:00 Test Item Value Reference Range Interpretation Comments TSH, THIRD GENERATION (test code 3.840 UIU/ML = 2821) COMPREHENSIVE METABOLIC [id number] 00:00:00 Test Item Value Reference Range Interpretation Comments GLUCOSE (test code = 2217) 90 MG/DL BUN (test code = 2208) 13 MG/DL CREATININE (test code = 2214) 0.74 MG/DL eGFR (2020 CKD-EPI) (test code 97 ML/MIN/1.73 = 92493) CALC BUN/CREAT (test code = 18 RATIO 2234) SODIUM (test code = 2231) 142 MEQ/L POTASSIUM (test code = 2228) 5.0 MEQ/L CHLORIDE (test code = 2215) 107 MEQ/L CARBON DIOXIDE (test code = 22 MEQ/L 2205) CALCIUM (test code = 2209) 11.0 MG/DL PROTEIN, TOTAL (test code = 6.7 G/DL 2228) ALBUMIN (test code = 2201) 4.2 G/DL CALC GLOBULIN (test code = 2.5 G/DL 2239) CALC A/G RATIO (test code = 1.7 RATIO 2233) BILIRUBIN, TOTAL (test code = 0.5 MG/DL 2206) ALKALINE PHOSPHATASE (test 94 U/L code = 2204) AST (test code = 2218) 24 U/L ALT (test code = 2219) 38 U/L COMPREHENSIVE METABOLIC [id number] 00:00:00 Test Item Value Reference Range Interpretation Comments GLUCOSE (test code = 2217) 90 MG/DL BUN (test code = 2208) 13 MG/DL CREATININE (test code = 2214) 0.74 MG/DL eGFR (2020 CKD-EPI) (test code 97 ML/MIN/1.73 = 22861) CALC BUN/CREAT (test code = 18 RATIO 2235) SODIUM (test code = 2231) 142 MEQ/L POTASSIUM (test code = 2228) 5.0 MEQ/L CHLORIDE (test code = 2215) 107 MEQ/L CARBON DIOXIDE (test code = 22 MEQ/L 2205) CALCIUM (test code = 2209) 11.0 MG/DL PROTEIN, TOTAL (test code = 6.7 G/DL 2228) ALBUMIN (test code = 2201) 4.2 G/DL CALC GLOBULIN (test code = 2.5 G/DL 224) CALC A/G RATIO (test code = 1.7 RATIO 2234) BILIRUBIN, TOTAL (test code = 0.5 MG/DL 2206) ALKALINE PHOSPHATASE (test 94 U/L code = 2204) AST (test code = 2218) 24 U/L ALT (test code = 2219) 38 U/L LIPID [id number] 00:00:00 Test Item Value Reference Range Interpretation Comments CHOLESTEROL (test code = 2210) 123 MG/DL TRIGLYCERIDES (test code = 2232) 137 MG/DL HDL CHOLESTEROL (test code = 2220) 30 MG/DL CALC LDL CHOL (test code = 2237) 71 MG/DL RISK RATIO LDL/HDL (test code = 2.37 RATIO 2238) LIPID [id number] 00:00:00 Test Item Value Reference Range Interpretation Comments CHOLESTEROL (test code = 2210) 123 MG/DL TRIGLYCERIDES (test code = 2232) 137 MG/DL HDL CHOLESTEROL (test code = 2220) 30 MG/DL CALC LDL CHOL (test code = 2237) 71 MG/DL RISK RATIO LDL/HDL (test code = 2.37 RATIO 2238) INTACT [id number] 00:00:00 Test Item Value Reference Range Interpretation Comments INTACT PTH (test code = 5005) 143 PG/ML INTACT [id number] 00:00:00 Test Item Value Reference Range Interpretation Comments INTACT PTH (test code = 5005) 143 PG/ML INTACT [id number] 00:00:00 Test Item Value Reference Range Interpretation Comments INTACT PTH (test code = 5005) 143 PG/ML IONIZED CALCIUM, [id number] 00:00:00 Test Item Value Reference Range Interpretation Comments CALCIUM, IONIZED (test code = 6.01 MG/DL 77099) IONIZED CALCIUM, [id number] 00:00:00 Test Item Value Reference Range Interpretation Comments CALCIUM, IONIZED (test code = 6.01 MG/DL 52707) [id number] 00:00:00 Test Item Value Reference Range Interpretation Comments LITHIUM (test code = 2039) 0.54 MEQ/L [id number] 00:00:00 Test Item Value Reference Range Interpretation Comments LITHIUM (test code = 2039) 0.54 MEQ/L [id number] 00:00:00 Test Item Value Reference Range Interpretation Comments LITHIUM (test code = 2039) 0.54 MEQ/L [id number] 00:00:00 Test Item Value Reference Range Interpretation Comments TSH, THIRD GENERATION (test code 3.840 UIU/ML = 2821) [id number] 00:00:00 Test Item Value Reference Range Interpretation Comments TSH, THIRD GENERATION (test code 3.840 UIU/ML = 2821) [id number] 00:00:00 Test Item Value Reference Range Interpretation Comments TSH, THIRD GENERATION (test code 3.840 UIU/ML = 2821) COMPREHENSIVE METABOLIC [id number] 00:00:00 Test Item Value Reference Range Interpretation Comments GLUCOSE (test code = 2217) 90 MG/DL BUN (test code = 2208) 13 MG/DL CREATININE (test code = 2214) 0.74 MG/DL eGFR (2020 CKD-EPI) (test code 97 ML/MIN/1.73 = 46569) CALC BUN/CREAT (test code = 18 RATIO 2235) SODIUM (test code = 2231) 142 MEQ/L POTASSIUM (test code = 2228) 5.0 MEQ/L CHLORIDE (test code = 2215) 107 MEQ/L CARBON DIOXIDE (test code = 22 MEQ/L 2206) CALCIUM (test code = 2209) 11.0 MG/DL PROTEIN, TOTAL (test code = 6.7 G/DL 2228) ALBUMIN (test code = 2201) 4.2 G/DL CALC GLOBULIN (test code = 2.5 G/DL 2240) CALC A/G RATIO (test code = 1.7 RATIO 2234) BILIRUBIN, TOTAL (test code = 0.5 MG/DL 2206) ALKALINE PHOSPHATASE (test 94 U/L code = 2204) AST (test code = 2218) 24 U/L ALT (test code = 2219) 38 U/L COMPREHENSIVE METABOLIC [id number] 00:00:00 Test Item Value Reference Range Interpretation Comments GLUCOSE (test code = 2217) 90 MG/DL BUN (test code = 2208) 13 MG/DL CREATININE (test code = 2214) 0.74 MG/DL eGFR (2020 CKD-EPI) (test code 97 ML/MIN/1.73 = 81613) CALC BUN/CREAT (test code = 18 RATIO 2235) SODIUM (test code = 2231) 142 MEQ/L POTASSIUM (test code = 2228) 5.0 MEQ/L CHLORIDE (test code = 2215) 107 MEQ/L CARBON DIOXIDE (test code = 22 MEQ/L 2205) CALCIUM (test code = 2209) 11.0 MG/DL PROTEIN, TOTAL (test code = 6.7 G/DL 2228) ALBUMIN (test code = 2201) 4.2 G/DL CALC GLOBULIN (test code = 2.5 G/DL 2240) CALC A/G RATIO (test code = 1.7 RATIO 2234) BILIRUBIN, TOTAL (test code = 0.5 MG/DL 2206) ALKALINE PHOSPHATASE (test 94 U/L code = 2204) AST (test code = 2218) 24 U/L ALT (test code = 2219) 38 U/L LIPID [id number] 00:00:00 Test Item Value Reference Range Interpretation Comments CHOLESTEROL (test code = 2210) 123 MG/DL TRIGLYCERIDES (test code = 2232) 137 MG/DL HDL CHOLESTEROL (test code = 2220) 30 MG/DL CALC LDL CHOL (test code = 2237) 71 MG/DL RISK RATIO LDL/HDL (test code = 2.37 RATIO 2238) LIPID [id number] 00:00:00 Test Item Value Reference Range Interpretation Comments CHOLESTEROL (test code = 2210) 123 MG/DL TRIGLYCERIDES (test code = 2232) 137 MG/DL HDL CHOLESTEROL (test code = 2220) 30 MG/DL CALC LDL CHOL (test code = 2237) 71 MG/DL RISK RATIO LDL/HDL (test code = 2.37 RATIO 2238) INTACT [id number] 00:00:00 Test Item Value Reference Range Interpretation Comments INTACT PTH (test code = 5005) 143 PG/ML INTACT [id number] 00:00:00 Test Item Value Reference Range Interpretation Comments INTACT PTH (test code = 5005) 143 PG/ML INTACT [id number] 00:00:00 Test Item Value Reference Range Interpretation Comments INTACT PTH (test code = 5005) 143 PG/ML IONIZED CALCIUM, [id number] 00:00:00 Test Item Value Reference Range Interpretation Comments CALCIUM, IONIZED (test code = 6.01 MG/DL 93492) IONIZED CALCIUM, [id number] 00:00:00 Test Item Value Reference Range Interpretation Comments CALCIUM, IONIZED (test code = 6.01 MG/DL 92225) [id number] 00:00:00 Test Item Value Reference Range Interpretation Comments LITHIUM (test code = 2039) 0.54 MEQ/L [id number] 00:00:00 Test Item Value Reference Range Interpretation Comments LITHIUM (test code = 2039) 0.54 MEQ/L [id number] 00:00:00 Test Item Value Reference Range Interpretation Comments LITHIUM (test code = 2039) 0.54 MEQ/L [id number] 00:00:00 Test Item Value Reference Range Interpretation Comments TSH, THIRD GENERATION (test code 3.840 UIU/ML = 2821) [id number] 00:00:00 Test Item Value Reference Range Interpretation Comments TSH, THIRD GENERATION (test code 3.840 UIU/ML = 2821) [id number] 00:00:00 Test Item Value Reference Range Interpretation Comments TSH, THIRD GENERATION (test code 3.840 UIU/ML = 2821) COMPREHENSIVE METABOLIC [id number] 00:00:00 Test Item Value Reference Range Interpretation Comments GLUCOSE (test code = 2217) 90 MG/DL BUN (test code = 2208) 13 MG/DL CREATININE (test code = 2214) 0.74 MG/DL eGFR (2020 CKD-EPI) (test code 97 ML/MIN/1.73 = 13682) CALC BUN/CREAT (test code = 18 RATIO 2235) SODIUM (test code = 2231) 142 MEQ/L POTASSIUM (test code = 2228) 5.0 MEQ/L CHLORIDE (test code = 2215) 107 MEQ/L CARBON DIOXIDE (test code = 22 MEQ/L 220) CALCIUM (test code = 2209) 11.0 MG/DL PROTEIN, TOTAL (test code = 6.7 G/DL 2228) ALBUMIN (test code = 2201) 4.2 G/DL CALC GLOBULIN (test code = 2.5 G/DL 2240) CALC A/G RATIO (test code = 1.7 RATIO 2234) BILIRUBIN, TOTAL (test code = 0.5 MG/DL 2206) ALKALINE PHOSPHATASE (test 94 U/L code = 2204) AST (test code = 2218) 24 U/L ALT (test code = 2219) 38 U/L COMPREHENSIVE METABOLIC [id number] 00:00:00 Test Item Value Reference Range Interpretation Comments GLUCOSE (test code = 2217) 90 MG/DL BUN (test code = 2208) 13 MG/DL CREATININE (test code = 2214) 0.74 MG/DL eGFR (2020 CKD-EPI) (test code 97 ML/MIN/1.73 = 60507) CALC BUN/CREAT (test code = 18 RATIO 2235) SODIUM (test code = 2231) 142 MEQ/L POTASSIUM (test code = 2228) 5.0 MEQ/L CHLORIDE (test code = 2215) 107 MEQ/L CARBON DIOXIDE (test code = 22 MEQ/L 220) CALCIUM (test code = 2209) 11.0 MG/DL PROTEIN, TOTAL (test code = 6.7 G/DL 2228) ALBUMIN (test code = 2201) 4.2 G/DL CALC GLOBULIN (test code = 2.5 G/DL 2240) CALC A/G RATIO (test code = 1.7 RATIO 2234) BILIRUBIN, TOTAL (test code = 0.5 MG/DL 2206) ALKALINE PHOSPHATASE (test 94 U/L code = 2204) AST (test code = 2218) 24 U/L ALT (test code = 2219) 38 U/L LIPID [id number] 00:00:00 Test Item Value Reference Range Interpretation Comments CHOLESTEROL (test code = 2210) 123 MG/DL TRIGLYCERIDES (test code = 2232) 137 MG/DL HDL CHOLESTEROL (test code = 2220) 30 MG/DL CALC LDL CHOL (test code = 2237) 71 MG/DL RISK RATIO LDL/HDL (test code = 2.37 RATIO 2238) LIPID [id number] 00:00:00 Test Item Value Reference Range Interpretation Comments CHOLESTEROL (test code = 2210) 123 MG/DL TRIGLYCERIDES (test code = 2232) 137 MG/DL HDL CHOLESTEROL (test code = 2220) 30 MG/DL CALC LDL CHOL (test code = 2237) 71 MG/DL RISK RATIO LDL/HDL (test code = 2.37 RATIO 2238) INTACT [id number] 00:00:00 Test Item Value Reference Range Interpretation Comments INTACT PTH (test code = 5005) 143 PG/ML INTACT [id number] 00:00:00 Test Item Value Reference Range Interpretation Comments INTACT PTH (test code = 5005) 143 PG/ML INTACT [id number] 00:00:00 Test Item Value Reference Range Interpretation Comments INTACT PTH (test code = 5005) 143 PG/ML IONIZED CALCIUM, [id number] 00:00:00 Test Item Value Reference Range Interpretation Comments CALCIUM, IONIZED (test code = 6.01 MG/DL 28737) IONIZED CALCIUM, [id number] 00:00:00 Test Item Value Reference Range Interpretation Comments CALCIUM, IONIZED (test code = 6.01 MG/DL 47311) [id number] 00:00:00 Test Item Value Reference Range Interpretation Comments LITHIUM (test code = 2039) 0.54 MEQ/L [id number] 00:00:00 Test Item Value Reference Range Interpretation Comments LITHIUM (test code = 2039) 0.54 MEQ/L [id number] 00:00:00 Test Item Value Reference Range Interpretation Comments LITHIUM (test code = 2039) 0.54 MEQ/L [id number] 00:00:00 Test Item Value Reference Range Interpretation Comments TSH, THIRD GENERATION (test code 3.840 UIU/ML = 2821) [id number] 00:00:00 Test Item Value Reference Range Interpretation Comments TSH, THIRD GENERATION (test code 3.840 UIU/ML = 2821) [id number] 00:00:00 Test Item Value Reference Range Interpretation Comments TSH, THIRD GENERATION (test code 3.840 UIU/ML = 2821) COMPREHENSIVE METABOLIC [id number] 00:00:00 Test Item Value Reference Range Interpretation Comments GLUCOSE (test code = 2217) 90 MG/DL BUN (test code = 2208) 13 MG/DL CREATININE (test code = 2214) 0.74 MG/DL eGFR (2020 CKD-EPI) (test code 97 ML/MIN/1.73 = 75563) CALC BUN/CREAT (test code = 18 RATIO 2235) SODIUM (test code = 2231) 142 MEQ/L POTASSIUM (test code = 2228) 5.0 MEQ/L CHLORIDE (test code = 2215) 107 MEQ/L CARBON DIOXIDE (test code = 22 MEQ/L 2205) CALCIUM (test code = 2209) 11.0 MG/DL PROTEIN, TOTAL (test code = 6.7 G/DL 2228) ALBUMIN (test code = 2201) 4.2 G/DL CALC GLOBULIN (test code = 2.5 G/DL 2240) CALC A/G RATIO (test code = 1.7 RATIO 2234) BILIRUBIN, TOTAL (test code = 0.5 MG/DL 2206) ALKALINE PHOSPHATASE (test 94 U/L code = 2204) AST (test code = 2218) 24 U/L ALT (test code = 2219) 38 U/L COMPREHENSIVE METABOLIC [id number] 00:00:00 Test Item Value Reference Range Interpretation Comments GLUCOSE (test code = 2217) 90 MG/DL BUN (test code = 2208) 13 MG/DL CREATININE (test code = 2214) 0.74 MG/DL eGFR (2020 CKD-EPI) (test code 97 ML/MIN/1.73 = 07432) CALC BUN/CREAT (test code = 18 RATIO 2235) SODIUM (test code = 2231) 142 MEQ/L POTASSIUM (test code = 2228) 5.0 MEQ/L CHLORIDE (test code = 2215) 107 MEQ/L CARBON DIOXIDE (test code = 22 MEQ/L 2205) CALCIUM (test code = 2209) 11.0 MG/DL PROTEIN, TOTAL (test code = 6.7 G/DL 2228) ALBUMIN (test code = 2201) 4.2 G/DL CALC GLOBULIN (test code = 2.5 G/DL 2240) CALC A/G RATIO (test code = 1.7 RATIO 2234) BILIRUBIN, TOTAL (test code = 0.5 MG/DL 2206) ALKALINE PHOSPHATASE (test 94 U/L code = 2204) AST (test code = 2218) 24 U/L ALT (test code = 2219) 38 U/L LIPID [id number] 00:00:00 Test Item Value Reference Range Interpretation Comments CHOLESTEROL (test code = 2210) 123 MG/DL TRIGLYCERIDES (test code = 2232) 137 MG/DL HDL CHOLESTEROL (test code = 2220) 30 MG/DL CALC LDL CHOL (test code = 2237) 71 MG/DL RISK RATIO LDL/HDL (test code = 2.37 RATIO 2238) LIPID [id number] 00:00:00 Test Item Value Reference Range Interpretation Comments CHOLESTEROL (test code = 2210) 123 MG/DL TRIGLYCERIDES (test code = 2232) 137 MG/DL HDL CHOLESTEROL (test code = 2220) 30 MG/DL CALC LDL CHOL (test code = 2237) 71 MG/DL RISK RATIO LDL/HDL (test code = 2.37 RATIO 2238) INTACT [id number] 00:00:00 Test Item Value Reference Range Interpretation Comments INTACT PTH (test code = 5005) 143 PG/ML INTACT [id number] 00:00:00 Test Item Value Reference Range Interpretation Comments INTACT PTH (test code = 5005) 143 PG/ML INTACT [id number] 00:00:00 Test Item Value Reference Range Interpretation Comments INTACT PTH (test code = 5005) 143 PG/ML IONIZED CALCIUM, [id number] 00:00:00 Test Item Value Reference Range Interpretation Comments CALCIUM, IONIZED (test code = 6.01 MG/DL 00846) IONIZED CALCIUM, [id number] 00:00:00 Test Item Value Reference Range Interpretation Comments CALCIUM, IONIZED (test code = 6.01 MG/DL 03889) [id number] 00:00:00 Test Item Value Reference Range Interpretation Comments LITHIUM (test code = 2039) 0.54 MEQ/L [id number] 00:00:00 Test Item Value Reference Range Interpretation Comments LITHIUM (test code = 2039) 0.54 MEQ/L [id number] 00:00:00 Test Item Value Reference Range Interpretation Comments LITHIUM (test code = 2039) 0.54 MEQ/L [id number] 00:00:00 Test Item Value Reference Range Interpretation Comments TSH, THIRD GENERATION (test code 3.840 UIU/ML = 2821) [id number] 00:00:00 Test Item Value Reference Range Interpretation Comments TSH, THIRD GENERATION (test code 3.840 UIU/ML = 2821) [id number] 00:00:00 Test Item Value Reference Range Interpretation Comments TSH, THIRD GENERATION (test code 3.840 UIU/ML = 2821) COMPREHENSIVE METABOLIC [id number] 00:00:00 Test Item Value Reference Range Interpretation Comments GLUCOSE (test code = 2217) 90 MG/DL BUN (test code = 2208) 13 MG/DL CREATININE (test code = 2214) 0.74 MG/DL eGFR (2020 CKD-EPI) (test code 97 ML/MIN/1.73 = 41284) CALC BUN/CREAT (test code = 18 RATIO 2235) SODIUM (test code = 2231) 142 MEQ/L POTASSIUM (test code = 2228) 5.0 MEQ/L CHLORIDE (test code = 2215) 107 MEQ/L CARBON DIOXIDE (test code = 22 MEQ/L 2205) CALCIUM (test code = 2209) 11.0 MG/DL PROTEIN, TOTAL (test code = 6.7 G/DL 2228) ALBUMIN (test code = 2201) 4.2 G/DL CALC GLOBULIN (test code = 2.5 G/DL 0) CALC A/G RATIO (test code = 1.7 RATIO 2233) BILIRUBIN, TOTAL (test code = 0.5 MG/DL 2206) ALKALINE PHOSPHATASE (test 94 U/L code = 2204) AST (test code = 2218) 24 U/L ALT (test code = 2219) 38 U/L COMPREHENSIVE METABOLIC [id number] 00:00:00 Test Item Value Reference Range Interpretation Comments GLUCOSE (test code = 2217) 90 MG/DL BUN (test code = 2208) 13 MG/DL CREATININE (test code = 2214) 0.74 MG/DL eGFR (2020 CKD-EPI) (test code 97 ML/MIN/1.73 = 22782) CALC BUN/CREAT (test code = 18 RATIO 2235) SODIUM (test code = 2231) 142 MEQ/L POTASSIUM (test code = 2228) 5.0 MEQ/L CHLORIDE (test code = 2215) 107 MEQ/L CARBON DIOXIDE (test code = 22 MEQ/L 2205) CALCIUM (test code = 2209) 11.0 MG/DL PROTEIN, TOTAL (test code = 6.7 G/DL 2228) ALBUMIN (test code = 220) 4.2 G/DL CALC GLOBULIN (test code = 2.5 G/DL 2239) CALC A/G RATIO (test code = 1.7 RATIO 2233) BILIRUBIN, TOTAL (test code = 0.5 MG/DL 2206) ALKALINE PHOSPHATASE (test 94 U/L code = 2204) AST (test code = 2218) 24 U/L ALT (test code = 2219) 38 U/L LIPID [id number] 00:00:00 Test Item Value Reference Range Interpretation Comments CHOLESTEROL (test code = 2210) 123 MG/DL TRIGLYCERIDES (test code = 2232) 137 MG/DL HDL CHOLESTEROL (test code = 2220) 30 MG/DL CALC LDL CHOL (test code = 2237) 71 MG/DL RISK RATIO LDL/HDL (test code = 2.37 RATIO 2238) LIPID [id number] 00:00:00 Test Item Value Reference Range Interpretation Comments CHOLESTEROL (test code = 2210) 123 MG/DL TRIGLYCERIDES (test code = 2232) 137 MG/DL HDL CHOLESTEROL (test code = 2220) 30 MG/DL CALC LDL CHOL (test code = 2237) 71 MG/DL RISK RATIO LDL/HDL (test code = 2.37 RATIO 2238) INTACT [id number] 00:00:00 Test Item Value Reference Range Interpretation Comments INTACT PTH (test code = 5005) 143 PG/ML INTACT [id number] 00:00:00 Test Item Value Reference Range Interpretation Comments INTACT PTH (test code = 5005) 143 PG/ML INTACT [id number] 00:00:00 Test Item Value Reference Range Interpretation Comments INTACT PTH (test code = 5005) 143 PG/ML IONIZED CALCIUM, [id number] 00:00:00 Test Item Value Reference Range Interpretation Comments CALCIUM, IONIZED (test code = 6.01 MG/DL 80255) IONIZED CALCIUM, [id number] 00:00:00 Test Item Value Reference Range Interpretation Comments CALCIUM, IONIZED (test code = 6.01 MG/DL 03085) [id number] 00:00:00 Test Item Value Reference Range Interpretation Comments LITHIUM (test code = 203) 0.54 MEQ/L [id number] 00:00:00 Test Item Value Reference Range Interpretation Comments LITHIUM (test code = 203) 0.54 MEQ/L [id number] 00:00:00 Test Item Value Reference Range Interpretation Comments LITHIUM (test code = 203) 0.54 MEQ/L [id number] 00:00:00 Test Item Value Reference Range Interpretation Comments TSH, THIRD GENERATION (test code 3.840 UIU/ML = 2821) [id number] 00:00:00 Test Item Value Reference Range Interpretation Comments TSH, THIRD GENERATION (test code 3.840 UIU/ML = 2821) [id number] 00:00:00 Test Item Value Reference Range Interpretation Comments TSH, THIRD GENERATION (test code 3.840 UIU/ML = 2821) COMPREHENSIVE METABOLIC [id number] 00:00:00 Test Item Value Reference Range Interpretation Comments GLUCOSE (test code = 2217) 90 MG/DL BUN (test code = 2208) 13 MG/DL CREATININE (test code = 2214) 0.74 MG/DL eGFR (2020 CKD-EPI) (test code 97 ML/MIN/1.73 = 19154) CALC BUN/CREAT (test code = 18 RATIO 2235) SODIUM (test code = 2231) 142 MEQ/L POTASSIUM (test code = 2228) 5.0 MEQ/L CHLORIDE (test code = 2215) 107 MEQ/L CARBON DIOXIDE (test code = 22 MEQ/L 2205) CALCIUM (test code = 2209) 11.0 MG/DL PROTEIN, TOTAL (test code = 6.7 G/DL 2228) ALBUMIN (test code = 2201) 4.2 G/DL CALC GLOBULIN (test code = 2.5 G/DL 2240) CALC A/G RATIO (test code = 1.7 RATIO 2234) BILIRUBIN, TOTAL (test code = 0.5 MG/DL 220) ALKALINE PHOSPHATASE (test 94 U/L code = 2204) AST (test code = 2218) 24 U/L ALT (test code = 2219) 38 U/L COMPREHENSIVE METABOLIC [id number] 00:00:00 Test Item Value Reference Range Interpretation Comments GLUCOSE (test code = 2217) 90 MG/DL BUN (test code = 2208) 13 MG/DL CREATININE (test code = 2214) 0.74 MG/DL eGFR (2020 CKD-EPI) (test code 97 ML/MIN/1.73 = 52029) CALC BUN/CREAT (test code = 18 RATIO 2235) SODIUM (test code = 2231) 142 MEQ/L POTASSIUM (test code = 2228) 5.0 MEQ/L CHLORIDE (test code = 2215) 107 MEQ/L CARBON DIOXIDE (test code = 22 MEQ/L 2205) CALCIUM (test code = 2209) 11.0 MG/DL PROTEIN, TOTAL (test code = 6.7 G/DL 2228) ALBUMIN (test code = 2201) 4.2 G/DL CALC GLOBULIN (test code = 2.5 G/DL 2240) CALC A/G RATIO (test code = 1.7 RATIO 2234) BILIRUBIN, TOTAL (test code = 0.5 MG/DL 2206) ALKALINE PHOSPHATASE (test 94 U/L code = 2204) AST (test code = 2218) 24 U/L ALT (test code = 2219) 38 U/L LIPID [id number] 00:00:00 Test Item Value Reference Range Interpretation Comments CHOLESTEROL (test code = 2210) 123 MG/DL TRIGLYCERIDES (test code = 2232) 137 MG/DL HDL CHOLESTEROL (test code = 2220) 30 MG/DL CALC LDL CHOL (test code = 2237) 71 MG/DL RISK RATIO LDL/HDL (test code = 2.37 RATIO 2238) LIPID [id number] 00:00:00 Test Item Value Reference Range Interpretation Comments CHOLESTEROL (test code = 2210) 123 MG/DL TRIGLYCERIDES (test code = 2232) 137 MG/DL HDL CHOLESTEROL (test code = 2220) 30 MG/DL CALC LDL CHOL (test code = 2237) 71 MG/DL RISK RATIO LDL/HDL (test code = 2.37 RATIO 2238) INTACT [id number] 00:00:00 Test Item Value Reference Range Interpretation Comments INTACT PTH (test code = 5005) 143 PG/ML INTACT [id number] 00:00:00 Test Item Value Reference Range Interpretation Comments INTACT PTH (test code = 5005) 143 PG/ML INTACT [id number] 00:00:00 Test Item Value Reference Range Interpretation Comments INTACT PTH (test code = 5005) 143 PG/ML IONIZED CALCIUM, [id number] 00:00:00 Test Item Value Reference Range Interpretation Comments CALCIUM, IONIZED (test code = 6.01 MG/DL 94111) IONIZED CALCIUM, [id number] 00:00:00 Test Item Value Reference Range Interpretation Comments CALCIUM, IONIZED (test code = 6.01 MG/DL 42900) [id number] 00:00:00 Test Item Value Reference Range Interpretation Comments LITHIUM (test code = 2039) 0.54 MEQ/L [id number] 00:00:00 Test Item Value Reference Range Interpretation Comments LITHIUM (test code = 2039) 0.54 MEQ/L [id number] 00:00:00 Test Item Value Reference Range Interpretation Comments LITHIUM (test code = 2039) 0.54 MEQ/L [id number] 00:00:00 Test Item Value Reference Range Interpretation Comments TSH, THIRD GENERATION (test code 3.840 UIU/ML = 2821) [id number] 00:00:00 Test Item Value Reference Range Interpretation Comments TSH, THIRD GENERATION (test code 3.840 UIU/ML = 2821) [id number] 00:00:00 Test Item Value Reference Range Interpretation Comments TSH, THIRD GENERATION (test code 3.840 UIU/ML = 2821) [id number] 00:00:00 Test Item Value Reference Range Interpretation Comments TSH, THIRD GENERATION (test code 3.840 UIU/ML = 2821) COMPREHENSIVE METABOLIC [id number] 00:00:00 Test Item Value Reference Range Interpretation Comments GLUCOSE (test code = 2217) 90 MG/DL BUN (test code = 2208) 13 MG/DL CREATININE (test code = 2214) 0.74 MG/DL eGFR (2020 CKD-EPI) (test code 97 ML/MIN/1.73 = 15967) CALC BUN/CREAT (test code = 18 RATIO 2235) SODIUM (test code = 2231) 142 MEQ/L POTASSIUM (test code = 2228) 5.0 MEQ/L CHLORIDE (test code = 2215) 107 MEQ/L CARBON DIOXIDE (test code = 22 MEQ/L 2205) CALCIUM (test code = 2209) 11.0 MG/DL PROTEIN, TOTAL (test code = 6.7 G/DL 2228) ALBUMIN (test code = 2201) 4.2 G/DL CALC GLOBULIN (test code = 2.5 G/DL 2240) CALC A/G RATIO (test code = 1.7 RATIO 2234) BILIRUBIN, TOTAL (test code = 0.5 MG/DL 2206) ALKALINE PHOSPHATASE (test 94 U/L code = 2204) AST (test code = 2218) 24 U/L ALT (test code = 2219) 38 U/L [id number] 00:00:00 Test Item Value Reference Range Interpretation Comments TSH, THIRD GENERATION (test code 3.840 UIU/ML = 2821) COMPREHENSIVE METABOLIC [id number] 00:00:00 Test Item Value Reference Range Interpretation Comments GLUCOSE (test code = 2217) 90 MG/DL BUN (test code = 2208) 13 MG/DL CREATININE (test code = 2214) 0.74 MG/DL eGFR (2020 CKD-EPI) (test code 97 ML/MIN/1.73 = 32389) CALC BUN/CREAT (test code = 18 RATIO 223) SODIUM (test code = 2231) 142 MEQ/L POTASSIUM (test code = 2228) 5.0 MEQ/L CHLORIDE (test code = 2215) 107 MEQ/L CARBON DIOXIDE (test code = 22 MEQ/L 2205) CALCIUM (test code = 2209) 11.0 MG/DL PROTEIN, TOTAL (test code = 6.7 G/DL 2228) ALBUMIN (test code = 2201) 4.2 G/DL CALC GLOBULIN (test code = 2.5 G/DL 2240) CALC A/G RATIO (test code = 1.7 RATIO 2234) BILIRUBIN, TOTAL (test code = 0.5 MG/DL 2206) ALKALINE PHOSPHATASE (test 94 U/L code = 2204) AST (test code = 2218) 24 U/L ALT (test code = 2219) 38 U/L COMPREHENSIVE METABOLIC [id number] 00:00:00 Test Item Value Reference Range Interpretation Comments GLUCOSE (test code = 2217) 90 MG/DL BUN (test code = 2208) 13 MG/DL CREATININE (test code = 2214) 0.74 MG/DL eGFR (2020 CKD-EPI) (test code 97 ML/MIN/1.73 = 05429) CALC BUN/CREAT (test code = 18 RATIO 2235) SODIUM (test code = 2231) 142 MEQ/L POTASSIUM (test code = 2228) 5.0 MEQ/L CHLORIDE (test code = 2215) 107 MEQ/L CARBON DIOXIDE (test code = 22 MEQ/L 2205) CALCIUM (test code = 2209) 11.0 MG/DL PROTEIN, TOTAL (test code = 6.7 G/DL 2228) ALBUMIN (test code = 2201) 4.2 G/DL CALC GLOBULIN (test code = 2.5 G/DL 2240) CALC A/G RATIO (test code = 1.7 RATIO 2234) BILIRUBIN, TOTAL (test code = 0.5 MG/DL 2206) ALKALINE PHOSPHATASE (test 94 U/L code = 2204) AST (test code = 2218) 24 U/L ALT (test code = 2219) 38 U/L LIPID [id number] 00:00:00 Test Item Value Reference Range Interpretation Comments CHOLESTEROL (test code = 2210) 123 MG/DL TRIGLYCERIDES (test code = 2232) 137 MG/DL HDL CHOLESTEROL (test code = 2220) 30 MG/DL CALC LDL CHOL (test code = 2237) 71 MG/DL RISK RATIO LDL/HDL (test code = 2.37 RATIO 2238) LIPID [id number] 00:00:00 Test Item Value Reference Range Interpretation Comments CHOLESTEROL (test code = 2210) 123 MG/DL TRIGLYCERIDES (test code = 2232) 137 MG/DL HDL CHOLESTEROL (test code = 2220) 30 MG/DL CALC LDL CHOL (test code = 2237) 71 MG/DL RISK RATIO LDL/HDL (test code = 2.37 RATIO 2238) INTACT [id number] 00:00:00 Test Item Value Reference Range Interpretation Comments INTACT PTH (test code = 5005) 143 PG/ML INTACT [id number] 00:00:00 Test Item Value Reference Range Interpretation Comments INTACT PTH (test code = 5005) 143 PG/ML INTACT [id number] 00:00:00 Test Item Value Reference Range Interpretation Comments INTACT PTH (test code = 5005) 143 PG/ML IONIZED CALCIUM, [id number] 00:00:00 Test Item Value Reference Range Interpretation Comments CALCIUM, IONIZED (test code = 6.01 MG/DL 90857) IONIZED CALCIUM, [id number] 00:00:00 Test Item Value Reference Range Interpretation Comments CALCIUM, IONIZED (test code = 6.01 MG/DL 12176) IONIZED CALCIUM, [id number] 00:00:00 Test Item Value Reference Range Interpretation Comments CALCIUM, IONIZED (test code = 6.08 MG/DL 49928) IONIZED CALCIUM, [id number] 00:00:00 Test Item Value Reference Range Interpretation Comments CALCIUM, IONIZED (test code = 6.08 MG/DL 37468) IONIZED CALCIUM, [id number] 00:00:00 Test Item Value Reference Range Interpretation Comments CALCIUM, IONIZED (test code = 6.08 MG/DL 87782) IONIZED CALCIUM, [id number] 00:00:00 Test Item Value Reference Range Interpretation Comments CALCIUM, IONIZED (test code = 6.08 MG/DL 59675) IONIZED CALCIUM, [id number] 00:00:00 Test Item Value Reference Range Interpretation Comments CALCIUM, IONIZED (test code = 6.08 MG/DL 46808) IONIZED CALCIUM, [id number] 00:00:00 Test Item Value Reference Range Interpretation Comments CALCIUM, IONIZED (test code = 6.08 MG/DL 63645) IONIZED CALCIUM, [id number] 00:00:00 Test Item Value Reference Range Interpretation Comments CALCIUM, IONIZED (test code = 6.08 MG/DL 89008) IONIZED CALCIUM, [id number] 00:00:00 Test Item Value Reference Range Interpretation Comments CALCIUM, IONIZED (test code = 6.08 MG/DL 45264) IONIZED CALCIUM, [id number] 00:00:00 Test Item Value Reference Range Interpretation Comments CALCIUM, IONIZED (test code = 6.08 MG/DL 28780) IONIZED CALCIUM, [id number] 00:00:00 Test Item Value Reference Range Interpretation Comments CALCIUM, IONIZED (test code = 6.08 MG/DL 66969) IONIZED CALCIUM, [id number] 00:00:00 Test Item Value Reference Range Interpretation Comments CALCIUM, IONIZED (test code = 6.08 MG/DL 23475) IONIZED CALCIUM, [id number] 00:00:00 Test Item Value Reference Range Interpretation Comments CALCIUM, IONIZED (test code = 6.08 MG/DL 95173) IONIZED CALCIUM, [id number] 00:00:00 Test Item Value Reference Range Interpretation Comments CALCIUM, IONIZED (test code = 6.08 MG/DL 90342) IONIZED CALCIUM, [id number] 00:00:00 Test Item Value Reference Range Interpretation Comments CALCIUM, IONIZED (test code = 6.08 MG/DL 12817) IONIZED CALCIUM, [id number] 00:00:00 Test Item Value Reference Range Interpretation Comments CALCIUM, IONIZED (test code = 6.08 MG/DL 07487) IONIZED CALCIUM, [id number] 00:00:00 Test Item Value Reference Range Interpretation Comments CALCIUM, IONIZED (test code = 6.08 MG/DL 99996) IONIZED CALCIUM, [id number] 00:00:00 Test Item Value Reference Range Interpretation Comments CALCIUM, IONIZED (test code = 6.08 MG/DL 60362) IONIZED CALCIUM, [id number] 00:00:00 Test Item Value Reference Range Interpretation Comments CALCIUM, IONIZED (test code = 6.08 MG/DL 69049) IONIZED CALCIUM, [id number] 00:00:00 Test Item Value Reference Range Interpretation Comments CALCIUM, IONIZED (test code = 6.08 MG/DL 89727) IONIZED CALCIUM, [id number] 00:00:00 Test Item Value Reference Range Interpretation Comments CALCIUM, IONIZED (test code = 6.08 MG/DL 66509) IONIZED CALCIUM, [id number] 00:00:00 Test Item Value Reference Range Interpretation Comments CALCIUM, IONIZED (test code = 6.08 MG/DL 71808) SARS-CoV-2 (COVID-19), RT-PCR/[id number] 10:52:51 Test Item Value Reference Interpretation Comments Range SARS-CoV-2 POSITIVE SEE NOTE A SARS-CoV-2 RNA INTERPRETATION DETECTEDPosit alek results (test code = 29949) are geovanna cative of the presence of EN[place] S-CoV-2 RNA;clinical co rrelation with patient hi story and other diagnosticinfor mation is necessary to de termine patient infecti on status.Positive results do not rule out bacterial infection or co-infectionwit h other viruses. Positi ve and negative predic tive values oftestin g are highly dependen t on prevalence. SOURCE (test code = NOT SPECIFIED Note: [place] [address]) Marii Chip Margot l-Time RT-PCR. The exp ected result or refer ence range is NEGATIVE (No t Detected). For more information reg arding COVID-19 testin g to include clinicalinforma tion, methodology det ail, intended use, F DA authorization andrecommended fact sheets for maxwell ents or healthcare prov iders, see NewTest Announc ement: SARS-CoV-2 (COV ID-19) by NAAT at URL bel ow (note,fact shee ts are provided by met hod given in report:https:// www.[employer]/clinician s/client-c ommunications/ Alternatively, see downloadable PD F fact sheet at:https://www. [employer]!.Xintu Shuju m/[email or web address] CR UNLESS OTHERWISE INDIC ATED, ALL TESTING PERFORM ED ATCLINICAL PATH [facility]. [address] [place] [id number] [address] DI[address] CTOR: Elnea HUTSON. RAYMONDIA NUMBER [id number] CAP ACCREDITATION N O. [id number] SARS-CoV-2 (COVID-19) by RT-PCR (HIGH RISK)2021-04-12 00:00:00 Test Item Value Reference Range Interpretation Comments SARS-CoV-2 INTERPRETATION (test POSITIVE code = 56940) SOURCE (test code = 39622) NOT SPECIFIED SARS-CoV-2 (COVID-19) by RT-PCR (HIGH RISK)2021-04-12 00:00:00 Test Item Value Reference Range Interpretation Comments SARS-CoV-2 INTERPRETATION (test POSITIVE code = 87193) SOURCE (test code = 90606) NOT SPECIFIED SARS-CoV-2 (COVID-19) by RT-PCR (HIGH RISK)2021-04-12 00:00:00 Test Item Value Reference Range Interpretation Comments SARS-CoV-2 INTERPRETATION (test POSITIVE code = 50692) SOURCE (test code = 89090) NOT SPECIFIED SARS-CoV-2 (COVID-19) by RT-PCR (HIGH RISK)2021-04-12 00:00:00 Test Item Value Reference Range Interpretation Comments SARS-CoV-2 INTERPRETATION (test POSITIVE code = 25813) SOURCE (test code = 31337) NOT SPECIFIED SARS-CoV-2 (COVID-19) by RT-PCR (HIGH RISK)2021-04-12 00:00:00 Test Item Value Reference Range Interpretation Comments SARS-CoV-2 INTERPRETATION (test POSITIVE code = 07636) SOURCE (test code = 00469) NOT SPECIFIED SARS-CoV-2 (COVID-19) by RT-PCR (HIGH RISK)2021-04-12 00:00:00 Test Item Value Reference Range Interpretation Comments SARS-CoV-2 INTERPRETATION (test POSITIVE code = 82600) SOURCE (test code = 22979) NOT SPECIFIED SARS-CoV-2 (COVID-19) by RT-PCR (HIGH RISK)2021-04-12 00:00:00 Test Item Value Reference Range Interpretation Comments SARS-CoV-2 INTERPRETATION (test POSITIVE code = 34093) SOURCE (test code = 66843) NOT SPECIFIED SARS-CoV-2 (COVID-19) by RT-PCR (HIGH RISK)2021-04-12 00:00:00 Test Item Value Reference Range Interpretation Comments SARS-CoV-2 INTERPRETATION (test POSITIVE code = 07682) SOURCE (test code = 35468) NOT SPECIFIED SARS-CoV-2 (COVID-19) by RT-PCR (HIGH RISK)2021-04-12 00:00:00 Test Item Value Reference Range Interpretation Comments SARS-CoV-2 INTERPRETATION (test POSITIVE code = 72237) SOURCE (test code = 40681) NOT SPECIFIED SARS-CoV-2 (COVID-19) by RT-PCR (HIGH RISK)2021-04-12 00:00:00 Test Item Value Reference Range Interpretation Comments SARS-CoV-2 INTERPRETATION (test POSITIVE code = 19426) SOURCE (test code = 58948) NOT SPECIFIED SARS-CoV-2 (COVID-19) by RT-PCR (HIGH RISK)2021-04-12 00:00:00 Test Item Value Reference Range Interpretation Comments SARS-CoV-2 INTERPRETATION (test POSITIVE code = 34651) SOURCE (test code = 57458) NOT SPECIFIED SARS-CoV-2 (COVID-19) by RT-PCR (HIGH RISK)2021-04-12 00:00:00 Test Item Value Reference Range Interpretation Comments SARS-CoV-2 INTERPRETATION (test POSITIVE code = 11894) SOURCE (test code = 90729) NOT SPECIFIED SARS-CoV-2 (COVID-19) by RT-PCR (HIGH RISK)2021-04-12 00:00:00 Test Item Value Reference Range Interpretation Comments SARS-CoV-2 INTERPRETATION (test POSITIVE code = 26455) SOURCE (test code = 00261) NOT SPECIFIED SARS-CoV-2 (COVID-19) by RT-PCR (HIGH RISK)2021-04-12 00:00:00 Test Item Value Reference Range Interpretation Comments SARS-CoV-2 INTERPRETATION (test POSITIVE code = 12422) SOURCE (test code = 91157) NOT SPECIFIED SARS-CoV-2 (COVID-19) by RT-PCR (HIGH RISK)2021-04-12 00:00:00 Test Item Value Reference Range Interpretation Comments SARS-CoV-2 INTERPRETATION (test POSITIVE code = 61782) SOURCE (test code = 41156) NOT SPECIFIED SARS-CoV-2 (COVID-19) by RT-PCR (HIGH RISK)2021-04-12 00:00:00 Test Item Value Reference Range Interpretation Comments SARS-CoV-2 INTERPRETATION (test POSITIVE code = 17670) SOURCE (test code = 52435) NOT SPECIFIED SARS-CoV-2 (COVID-19) by RT-PCR (HIGH RISK)2021-04-12 00:00:00 Test Item Value Reference Range Interpretation Comments SARS-CoV-2 INTERPRETATION (test POSITIVE code = 11634) SOURCE (test code = 13253) NOT SPECIFIED SARS-CoV-2 (COVID-19) by RT-PCR (HIGH RISK)2021-04-12 00:00:00 Test Item Value Reference Range Interpretation Comments SARS-CoV-2 INTERPRETATION (test POSITIVE code = 12453) SOURCE (test code = 38641) NOT SPECIFIED SARS-CoV-2 (COVID-19) by RT-PCR (HIGH RISK)2021-04-12 00:00:00 Test Item Value Reference Range Interpretation Comments SARS-CoV-2 INTERPRETATION (test POSITIVE code = 03487) SOURCE (test code = 94605) NOT SPECIFIED SARS-CoV-2 (COVID-19) by RT-PCR (HIGH RISK)2021-04-12 00:00:00 Test Item Value Reference Range Interpretation Comments SARS-CoV-2 INTERPRETATION (test POSITIVE code = 60673) SOURCE (test code = 02821) NOT SPECIFIED SARS-CoV-2 (COVID-19) by RT-PCR (HIGH RISK)2021-04-12 00:00:00 Test Item Value Reference Range Interpretation Comments SARS-CoV-2 INTERPRETATION (test POSITIVE code = 46522) SOURCE (test code = 09434) NOT SPECIFIED [id number] 00:00:00 Test Item Value Reference Range Interpretation Comments TSH, THIRD GENERATION (test code 1.470 UIU/ML = 2821) [id number] 00:00:00 Test Item Value Reference Range Interpretation Comments TSH, THIRD GENERATION (test code 1.470 UIU/ML = 2821) VITAMIN D, 25 [id number] 00:00:00 Test Item Value Reference Range Interpretation Comments VITAMIN D, 25 OH (test code = 4958) 20 NG/ML [id number] 00:00:00 Test Item Value Reference Range Interpretation Comments LITHIUM (test code = 2039) 0.39 MEQ/L [id number] 00:00:00 Test Item Value Reference Range Interpretation Comments LITHIUM (test code = 2039) 0.39 MEQ/L COMPREHENSIVE METABOLIC [id number] 00:00:00 Test Item Value Reference Range Interpretation Comments GLUCOSE (test code = 2217) 109 MG/DL BUN (test code = 2208) 14 MG/DL CREATININE (test code = 2214) 0.64 MG/DL eGFR (2020 CKD-EPI) (test 106 ML/MIN/1.73 code = 56850) CALC BUN/CREAT (test code = 22 RATIO 2235) SODIUM (test code = 2231) 141 MEQ/L POTASSIUM (test code = 2228) 4.6 MEQ/L CHLORIDE (test code = 2215) 108 MEQ/L CARBON DIOXIDE (test code = 26 MEQ/L 2205) CALCIUM (test code = 2209) 11.2 MG/DL PROTEIN, TOTAL (test code = 6.7 G/DL 2228) ALBUMIN (test code = 2201) 4.2 G/DL CALC GLOBULIN (test code = 2.5 G/DL 2240) CALC A/G RATIO (test code = 1.7 RATIO 2234) BILIRUBIN, TOTAL (test code = 0.4 MG/DL 2206) ALKALINE PHOSPHATASE (test 102 U/L code = 2204) AST (test code = 2218) 24 U/L ALT (test code = 2219) 43 U/L COMPREHENSIVE METABOLIC [id number] 00:00:00 Test Item Value Reference Range Interpretation Comments GLUCOSE (test code = 2217) 109 MG/DL BUN (test code = 2208) 14 MG/DL CREATININE (test code = 2214) 0.64 MG/DL eGFR (2020 CKD-EPI) (test 106 ML/MIN/1.73 code = 63181) CALC BUN/CREAT (test code = 22 RATIO 2235) SODIUM (test code = 2231) 141 MEQ/L POTASSIUM (test code = 2228) 4.6 MEQ/L CHLORIDE (test code = 2215) 108 MEQ/L CARBON DIOXIDE (test code = 26 MEQ/L 2205) CALCIUM (test code = 2209) 11.2 MG/DL PROTEIN, TOTAL (test code = 6.7 G/DL 2228) ALBUMIN (test code = 2201) 4.2 G/DL CALC GLOBULIN (test code = 2.5 G/DL 2240) CALC A/G RATIO (test code = 1.7 RATIO 2234) BILIRUBIN, TOTAL (test code = 0.4 MG/DL 2206) ALKALINE PHOSPHATASE (test 102 U/L code = 2204) AST (test code = 2218) 24 U/L ALT (test code = 2219) 43 U/L LIPID [id number] 00:00:00 Test Item Value Reference Range Interpretation Comments CHOLESTEROL (test code = 2210) 173 MG/DL TRIGLYCERIDES (test code = 2232) 248 MG/DL HDL CHOLESTEROL (test code = 2220) 33 MG/DL CALC LDL CHOL (test code = 2237) 105 MG/DL RISK RATIO LDL/HDL (test code = 3.18 RATIO 2238) LIPID [id number] 00:00:00 Test Item Value Reference Range Interpretation Comments CHOLESTEROL (test code = 2210) 173 MG/DL TRIGLYCERIDES (test code = 2232) 248 MG/DL HDL CHOLESTEROL (test code = 2220) 33 MG/DL CALC LDL CHOL (test code = 2237) 105 MG/DL RISK RATIO LDL/HDL (test code = 3.18 RATIO 2238) [id number] 00:00:00 Test Item Value Reference Range Interpretation Comments TSH, THIRD GENERATION (test code 1.470 UIU/ML = 2821) [id number] 00:00:00 Test Item Value Reference Range Interpretation Comments TSH, THIRD GENERATION (test code 1.470 UIU/ML = 2821) [id number] 00:00:00 Test Item Value Reference Range Interpretation Comments TSH, THIRD GENERATION (test code 1.470 UIU/ML = 2821) VITAMIN D, 25 [id number] 00:00:00 Test Item Value Reference Range Interpretation Comments VITAMIN D, 25 OH (test code = 4958) 20 NG/ML VITAMIN D, 25 [id number] 00:00:00 Test Item Value Reference Range Interpretation Comments VITAMIN D, 25 OH (test code = 4958) 20 NG/ML [id number] 00:00:00 Test Item Value Reference Range Interpretation Comments LITHIUM (test code = 2039) 0.39 MEQ/L [id number] 00:00:00 Test Item Value Reference Range Interpretation Comments LITHIUM (test code = 2039) 0.39 MEQ/L [id number] 00:00:00 Test Item Value Reference Range Interpretation Comments LITHIUM (test code = 2039) 0.39 MEQ/L COMPREHENSIVE METABOLIC [id number] 00:00:00 Test Item Value Reference Range Interpretation Comments GLUCOSE (test code = 2217) 109 MG/DL BUN (test code = 2208) 14 MG/DL CREATININE (test code = 2214) 0.64 MG/DL eGFR (2020 CKD-EPI) (test 106 ML/MIN/1.73 code = 11194) CALC BUN/CREAT (test code = 22 RATIO 2235) SODIUM (test code = 2231) 141 MEQ/L POTASSIUM (test code = 2228) 4.6 MEQ/L CHLORIDE (test code = 2215) 108 MEQ/L CARBON DIOXIDE (test code = 26 MEQ/L 2205) CALCIUM (test code = 2209) 11.2 MG/DL PROTEIN, TOTAL (test code = 6.7 G/DL 222) ALBUMIN (test code = 2201) 4.2 G/DL CALC GLOBULIN (test code = 2.5 G/DL 2240) CALC A/G RATIO (test code = 1.7 RATIO 2234) BILIRUBIN, TOTAL (test code = 0.4 MG/DL 2206) ALKALINE PHOSPHATASE (test 102 U/L code = 2204) AST (test code = 2218) 24 U/L ALT (test code = 2219) 43 U/L COMPREHENSIVE METABOLIC [id number] 00:00:00 Test Item Value Reference Range Interpretation Comments GLUCOSE (test code = 2217) 109 MG/DL BUN (test code = 2208) 14 MG/DL CREATININE (test code = 2214) 0.64 MG/DL eGFR (2020 CKD-EPI) (test 106 ML/MIN/1.73 code = 10311) CALC BUN/CREAT (test code = 22 RATIO 2235) SODIUM (test code = 2231) 141 MEQ/L POTASSIUM (test code = 2228) 4.6 MEQ/L CHLORIDE (test code = 2215) 108 MEQ/L CARBON DIOXIDE (test code = 26 MEQ/L 2205) CALCIUM (test code = 2209) 11.2 MG/DL PROTEIN, TOTAL (test code = 6.7 G/DL 2228) ALBUMIN (test code = 2201) 4.2 G/DL CALC GLOBULIN (test code = 2.5 G/DL 2240) CALC A/G RATIO (test code = 1.7 RATIO 2234) BILIRUBIN, TOTAL (test code = 0.4 MG/DL 2206) ALKALINE PHOSPHATASE (test 102 U/L code = 2204) AST (test code = 2218) 24 U/L ALT (test code = 2219) 43 U/L LIPID [id number] 00:00:00 Test Item Value Reference Range Interpretation Comments CHOLESTEROL (test code = 2210) 173 MG/DL TRIGLYCERIDES (test code = 2232) 248 MG/DL HDL CHOLESTEROL (test code = 2220) 33 MG/DL CALC LDL CHOL (test code = 2237) 105 MG/DL RISK RATIO LDL/HDL (test code = 3.18 RATIO 2238) LIPID [id number] 00:00:00 Test Item Value Reference Range Interpretation Comments CHOLESTEROL (test code = 2210) 173 MG/DL TRIGLYCERIDES (test code = 2232) 248 MG/DL HDL CHOLESTEROL (test code = 2220) 33 MG/DL CALC LDL CHOL (test code = 2237) 105 MG/DL RISK RATIO LDL/HDL (test code = 3.18 RATIO 2238) [id number] 00:00:00 Test Item Value Reference Range Interpretation Comments TSH, THIRD GENERATION (test code 1.470 UIU/ML = 2821) [id number] 00:00:00 Test Item Value Reference Range Interpretation Comments TSH, THIRD GENERATION (test code 1.470 UIU/ML = 2821) [id number] 00:00:00 Test Item Value Reference Range Interpretation Comments TSH, THIRD GENERATION (test code 1.470 UIU/ML = 2821) VITAMIN D, 25 [id number] 00:00:00 Test Item Value Reference Range Interpretation Comments VITAMIN D, 25 OH (test code = 4958) 20 NG/ML VITAMIN D, 25 [id number] 00:00:00 Test Item Value Reference Range Interpretation Comments VITAMIN D, 25 OH (test code = 4958) 20 NG/ML [id number] 00:00:00 Test Item Value Reference Range Interpretation Comments LITHIUM (test code = 2039) 0.39 MEQ/L [id number] 00:00:00 Test Item Value Reference Range Interpretation Comments LITHIUM (test code = 2039) 0.39 MEQ/L [id number] 00:00:00 Test Item Value Reference Range Interpretation Comments LITHIUM (test code = 2039) 0.39 MEQ/L COMPREHENSIVE METABOLIC [id number] 00:00:00 Test Item Value Reference Range Interpretation Comments GLUCOSE (test code = 2217) 109 MG/DL BUN (test code = 2208) 14 MG/DL CREATININE (test code = 2214) 0.64 MG/DL eGFR (2020 CKD-EPI) (test 106 ML/MIN/1.73 code = 73893) CALC BUN/CREAT (test code = 22 RATIO 2235) SODIUM (test code = 2231) 141 MEQ/L POTASSIUM (test code = 2228) 4.6 MEQ/L CHLORIDE (test code = 2215) 108 MEQ/L CARBON DIOXIDE (test code = 26 MEQ/L 2205) CALCIUM (test code = 2209) 11.2 MG/DL PROTEIN, TOTAL (test code = 6.7 G/DL 2228) ALBUMIN (test code = 2201) 4.2 G/DL CALC GLOBULIN (test code = 2.5 G/DL 2240) CALC A/G RATIO (test code = 1.7 RATIO 2234) BILIRUBIN, TOTAL (test code = 0.4 MG/DL 2206) ALKALINE PHOSPHATASE (test 102 U/L code = 2204) AST (test code = 2218) 24 U/L ALT (test code = 2219) 43 U/L COMPREHENSIVE METABOLIC [id number] 00:00:00 Test Item Value Reference Range Interpretation Comments GLUCOSE (test code = 2217) 109 MG/DL BUN (test code = 2208) 14 MG/DL CREATININE (test code = 2214) 0.64 MG/DL eGFR (2020 CKD-EPI) (test 106 ML/MIN/1.73 code = 18846) CALC BUN/CREAT (test code = 22 RATIO 2235) SODIUM (test code = 2231) 141 MEQ/L POTASSIUM (test code = 2228) 4.6 MEQ/L CHLORIDE (test code = 2215) 108 MEQ/L CARBON DIOXIDE (test code = 26 MEQ/L 2205) CALCIUM (test code = 2209) 11.2 MG/DL PROTEIN, TOTAL (test code = 6.7 G/DL 2228) ALBUMIN (test code = 2201) 4.2 G/DL CALC GLOBULIN (test code = 2.5 G/DL 2240) CALC A/G RATIO (test code = 1.7 RATIO 2234) BILIRUBIN, TOTAL (test code = 0.4 MG/DL 2206) ALKALINE PHOSPHATASE (test 102 U/L code = 2204) AST (test code = 2218) 24 U/L ALT (test code = 2219) 43 U/L LIPID [id number] 00:00:00 Test Item Value Reference Range Interpretation Comments CHOLESTEROL (test code = 2210) 173 MG/DL TRIGLYCERIDES (test code = 2232) 248 MG/DL HDL CHOLESTEROL (test code = 2220) 33 MG/DL CALC LDL CHOL (test code = 2237) 105 MG/DL RISK RATIO LDL/HDL (test code = 3.18 RATIO 2238) LIPID [id number] 00:00:00 Test Item Value Reference Range Interpretation Comments CHOLESTEROL (test code = 2210) 173 MG/DL TRIGLYCERIDES (test code = 2232) 248 MG/DL HDL CHOLESTEROL (test code = 2220) 33 MG/DL CALC LDL CHOL (test code = 2237) 105 MG/DL RISK RATIO LDL/HDL (test code = 3.18 RATIO 2238) [id number] 00:00:00 Test Item Value Reference Range Interpretation Comments TSH, THIRD GENERATION (test code 1.470 UIU/ML = 2821) [id number] 00:00:00 Test Item Value Reference Range Interpretation Comments TSH, THIRD GENERATION (test code 1.470 UIU/ML = 2821) [id number] 00:00:00 Test Item Value Reference Range Interpretation Comments TSH, THIRD GENERATION (test code 1.470 UIU/ML = 2821) VITAMIN D, 25 [id number] 00:00:00 Test Item Value Reference Range Interpretation Comments VITAMIN D, 25 OH (test code = 4958) 20 NG/ML VITAMIN D, 25 [id number] 00:00:00 Test Item Value Reference Range Interpretation Comments VITAMIN D, 25 OH (test code = 4958) 20 NG/ML [id number] 00:00:00 Test Item Value Reference Range Interpretation Comments LITHIUM (test code = 2039) 0.39 MEQ/L [id number] 00:00:00 Test Item Value Reference Range Interpretation Comments LITHIUM (test code = 2039) 0.39 MEQ/L [id number] 00:00:00 Test Item Value Reference Range Interpretation Comments LITHIUM (test code = 2039) 0.39 MEQ/L COMPREHENSIVE METABOLIC [id number] 00:00:00 Test Item Value Reference Range Interpretation Comments GLUCOSE (test code = 2217) 109 MG/DL BUN (test code = 2208) 14 MG/DL CREATININE (test code = 2214) 0.64 MG/DL eGFR (2020 CKD-EPI) (test 106 ML/MIN/1.73 code = 72972) CALC BUN/CREAT (test code = 22 RATIO 2235) SODIUM (test code = 2231) 141 MEQ/L POTASSIUM (test code = 2228) 4.6 MEQ/L CHLORIDE (test code = 2215) 108 MEQ/L CARBON DIOXIDE (test code = 26 MEQ/L 220) CALCIUM (test code = 2209) 11.2 MG/DL PROTEIN, TOTAL (test code = 6.7 G/DL 2228) ALBUMIN (test code = 2201) 4.2 G/DL CALC GLOBULIN (test code = 2.5 G/DL 2240) CALC A/G RATIO (test code = 1.7 RATIO 2234) BILIRUBIN, TOTAL (test code = 0.4 MG/DL 2206) ALKALINE PHOSPHATASE (test 102 U/L code = 2204) AST (test code = 2218) 24 U/L ALT (test code = 2219) 43 U/L COMPREHENSIVE METABOLIC [id number] 00:00:00 Test Item Value Reference Range Interpretation Comments GLUCOSE (test code = 2217) 109 MG/DL BUN (test code = 2208) 14 MG/DL CREATININE (test code = 2214) 0.64 MG/DL eGFR (2020 CKD-EPI) (test 106 ML/MIN/1.73 code = 43512) CALC BUN/CREAT (test code = 22 RATIO 2235) SODIUM (test code = 2231) 141 MEQ/L POTASSIUM (test code = 2228) 4.6 MEQ/L CHLORIDE (test code = 2215) 108 MEQ/L CARBON DIOXIDE (test code = 26 MEQ/L 2205) CALCIUM (test code = 2209) 11.2 MG/DL PROTEIN, TOTAL (test code = 6.7 G/DL 2228) ALBUMIN (test code = 2201) 4.2 G/DL CALC GLOBULIN (test code = 2.5 G/DL 2240) CALC A/G RATIO (test code = 1.7 RATIO 2234) BILIRUBIN, TOTAL (test code = 0.4 MG/DL 2206) ALKALINE PHOSPHATASE (test 102 U/L code = 2204) AST (test code = 2218) 24 U/L ALT (test code = 2219) 43 U/L LIPID [id number] 00:00:00 Test Item Value Reference Range Interpretation Comments CHOLESTEROL (test code = 2210) 173 MG/DL TRIGLYCERIDES (test code = 2232) 248 MG/DL HDL CHOLESTEROL (test code = 2220) 33 MG/DL CALC LDL CHOL (test code = 2237) 105 MG/DL RISK RATIO LDL/HDL (test code = 3.18 RATIO 2238) LIPID [id number] 00:00:00 Test Item Value Reference Range Interpretation Comments CHOLESTEROL (test code = 2210) 173 MG/DL TRIGLYCERIDES (test code = 2232) 248 MG/DL HDL CHOLESTEROL (test code = 2220) 33 MG/DL CALC LDL CHOL (test code = 2237) 105 MG/DL RISK RATIO LDL/HDL (test code = 3.18 RATIO 2238) [id number] 00:00:00 Test Item Value Reference Range Interpretation Comments TSH, THIRD GENERATION (test code 1.470 UIU/ML = 2821) [id number] 00:00:00 Test Item Value Reference Range Interpretation Comments TSH, THIRD GENERATION (test code 1.470 UIU/ML = 2821) [id number] 00:00:00 Test Item Value Reference Range Interpretation Comments TSH, THIRD GENERATION (test code 1.470 UIU/ML = 2821) VITAMIN D, 25 [id number] 00:00:00 Test Item Value Reference Range Interpretation Comments VITAMIN D, 25 OH (test code = 4958) 20 NG/ML VITAMIN D, 25 [id number] 00:00:00 Test Item Value Reference Range Interpretation Comments VITAMIN D, 25 OH (test code = 4958) 20 NG/ML [id number] 00:00:00 Test Item Value Reference Range Interpretation Comments LITHIUM (test code = 2039) 0.39 MEQ/L [id number] 00:00:00 Test Item Value Reference Range Interpretation Comments LITHIUM (test code = 2039) 0.39 MEQ/L [id number] 00:00:00 Test Item Value Reference Range Interpretation Comments LITHIUM (test code = 2039) 0.39 MEQ/L COMPREHENSIVE METABOLIC [id number] 00:00:00 Test Item Value Reference Range Interpretation Comments GLUCOSE (test code = 2217) 109 MG/DL BUN (test code = 2208) 14 MG/DL CREATININE (test code = 2214) 0.64 MG/DL eGFR (2020 CKD-EPI) (test 106 ML/MIN/1.73 code = 77836) CALC BUN/CREAT (test code = 22 RATIO 2235) SODIUM (test code = 2231) 141 MEQ/L POTASSIUM (test code = 2228) 4.6 MEQ/L CHLORIDE (test code = 2215) 108 MEQ/L CARBON DIOXIDE (test code = 26 MEQ/L 220) CALCIUM (test code = 2209) 11.2 MG/DL PROTEIN, TOTAL (test code = 6.7 G/DL 2228) ALBUMIN (test code = 2201) 4.2 G/DL CALC GLOBULIN (test code = 2.5 G/DL 2240) CALC A/G RATIO (test code = 1.7 RATIO 2234) BILIRUBIN, TOTAL (test code = 0.4 MG/DL 2206) ALKALINE PHOSPHATASE (test 102 U/L code = 2204) AST (test code = 2218) 24 U/L ALT (test code = 2219) 43 U/L COMPREHENSIVE METABOLIC [id number] 00:00:00 Test Item Value Reference Range Interpretation Comments GLUCOSE (test code = 2217) 109 MG/DL BUN (test code = 2208) 14 MG/DL CREATININE (test code = 2214) 0.64 MG/DL eGFR (2020 CKD-EPI) (test 106 ML/MIN/1.73 code = 14130) CALC BUN/CREAT (test code = 22 RATIO 2235) SODIUM (test code = 2231) 141 MEQ/L POTASSIUM (test code = 2228) 4.6 MEQ/L CHLORIDE (test code = 2215) 108 MEQ/L CARBON DIOXIDE (test code = 26 MEQ/L 2205) CALCIUM (test code = 2209) 11.2 MG/DL PROTEIN, TOTAL (test code = 6.7 G/DL 2228) ALBUMIN (test code = 2201) 4.2 G/DL CALC GLOBULIN (test code = 2.5 G/DL 2240) CALC A/G RATIO (test code = 1.7 RATIO 2234) BILIRUBIN, TOTAL (test code = 0.4 MG/DL 2206) ALKALINE PHOSPHATASE (test 102 U/L code = 2204) AST (test code = 2218) 24 U/L ALT (test code = 2219) 43 U/L LIPID [id number] 00:00:00 Test Item Value Reference Range Interpretation Comments CHOLESTEROL (test code = 2210) 173 MG/DL TRIGLYCERIDES (test code = 2232) 248 MG/DL HDL CHOLESTEROL (test code = 2220) 33 MG/DL CALC LDL CHOL (test code = 2237) 105 MG/DL RISK RATIO LDL/HDL (test code = 3.18 RATIO 2238) LIPID [id number] 00:00:00 Test Item Value Reference Range Interpretation Comments CHOLESTEROL (test code = 2210) 173 MG/DL TRIGLYCERIDES (test code = 2232) 248 MG/DL HDL CHOLESTEROL (test code = 2220) 33 MG/DL CALC LDL CHOL (test code = 2237) 105 MG/DL RISK RATIO LDL/HDL (test code = 3.18 RATIO 2238) [id number] 00:00:00 Test Item Value Reference Range Interpretation Comments TSH, THIRD GENERATION (test code 1.470 UIU/ML = 2821) [id number] 00:00:00 Test Item Value Reference Range Interpretation Comments TSH, THIRD GENERATION (test code 1.470 UIU/ML = 2821) [id number] 00:00:00 Test Item Value Reference Range Interpretation Comments TSH, THIRD GENERATION (test code 1.470 UIU/ML = 2821) VITAMIN D, 25 [id number] 00:00:00 Test Item Value Reference Range Interpretation Comments VITAMIN D, 25 OH (test code = 4958) 20 NG/ML VITAMIN D, 25 [id number] 00:00:00 Test Item Value Reference Range Interpretation Comments VITAMIN D, 25 OH (test code = 4958) 20 NG/ML [id number] 00:00:00 Test Item Value Reference Range Interpretation Comments LITHIUM (test code = 2039) 0.39 MEQ/L [id number] 00:00:00 Test Item Value Reference Range Interpretation Comments LITHIUM (test code = 2039) 0.39 MEQ/L [id number] 00:00:00 Test Item Value Reference Range Interpretation Comments LITHIUM (test code = 2039) 0.39 MEQ/L COMPREHENSIVE METABOLIC [id number] 00:00:00 Test Item Value Reference Range Interpretation Comments GLUCOSE (test code = 2217) 109 MG/DL BUN (test code = 2208) 14 MG/DL CREATININE (test code = 2214) 0.64 MG/DL eGFR (2020 CKD-EPI) (test 106 ML/MIN/1.73 code = 32177) CALC BUN/CREAT (test code = 22 RATIO 2235) SODIUM (test code = 2231) 141 MEQ/L POTASSIUM (test code = 2228) 4.6 MEQ/L CHLORIDE (test code = 2215) 108 MEQ/L CARBON DIOXIDE (test code = 26 MEQ/L 220) CALCIUM (test code = 2209) 11.2 MG/DL PROTEIN, TOTAL (test code = 6.7 G/DL 2228) ALBUMIN (test code = 2201) 4.2 G/DL CALC GLOBULIN (test code = 2.5 G/DL 2240) CALC A/G RATIO (test code = 1.7 RATIO 223) BILIRUBIN, TOTAL (test code = 0.4 MG/DL 2206) ALKALINE PHOSPHATASE (test 102 U/L code = 2204) AST (test code = 2218) 24 U/L ALT (test code = 2219) 43 U/L COMPREHENSIVE METABOLIC [id number] 00:00:00 Test Item Value Reference Range Interpretation Comments GLUCOSE (test code = 2217) 109 MG/DL BUN (test code = 2208) 14 MG/DL CREATININE (test code = 2214) 0.64 MG/DL eGFR (2020 CKD-EPI) (test 106 ML/MIN/1.73 code = 03212) CALC BUN/CREAT (test code = 22 RATIO 2235) SODIUM (test code = 2231) 141 MEQ/L POTASSIUM (test code = 2228) 4.6 MEQ/L CHLORIDE (test code = 2215) 108 MEQ/L CARBON DIOXIDE (test code = 26 MEQ/L 2205) CALCIUM (test code = 2209) 11.2 MG/DL PROTEIN, TOTAL (test code = 6.7 G/DL 2228) ALBUMIN (test code = 2201) 4.2 G/DL CALC GLOBULIN (test code = 2.5 G/DL 2240) CALC A/G RATIO (test code = 1.7 RATIO 2234) BILIRUBIN, TOTAL (test code = 0.4 MG/DL 2206) ALKALINE PHOSPHATASE (test 102 U/L code = 2204) AST (test code = 2218) 24 U/L ALT (test code = 2219) 43 U/L LIPID [id number] 00:00:00 Test Item Value Reference Range Interpretation Comments CHOLESTEROL (test code = 2210) 173 MG/DL TRIGLYCERIDES (test code = 2232) 248 MG/DL HDL CHOLESTEROL (test code = 2220) 33 MG/DL CALC LDL CHOL (test code = 2237) 105 MG/DL RISK RATIO LDL/HDL (test code = 3.18 RATIO 2238) LIPID [id number] 00:00:00 Test Item Value Reference Range Interpretation Comments CHOLESTEROL (test code = 2210) 173 MG/DL TRIGLYCERIDES (test code = 2232) 248 MG/DL HDL CHOLESTEROL (test code = 2220) 33 MG/DL CALC LDL CHOL (test code = 2237) 105 MG/DL RISK RATIO LDL/HDL (test code = 3.18 RATIO 2238) [id number] 00:00:00 Test Item Value Reference Range Interpretation Comments TSH, THIRD GENERATION (test code 1.470 UIU/ML = 2821) [id number] 00:00:00 Test Item Value Reference Range Interpretation Comments TSH, THIRD GENERATION (test code 1.470 UIU/ML = 2821) [id number] 00:00:00 Test Item Value Reference Range Interpretation Comments TSH, THIRD GENERATION (test code 1.470 UIU/ML = 2821) VITAMIN D, 25 [id number] 00:00:00 Test Item Value Reference Range Interpretation Comments VITAMIN D, 25 OH (test code = 4958) 20 NG/ML VITAMIN D, 25 [id number] 00:00:00 Test Item Value Reference Range Interpretation Comments VITAMIN D, 25 OH (test code = 4958) 20 NG/ML [id number] 00:00:00 Test Item Value Reference Range Interpretation Comments LITHIUM (test code = 203) 0.39 MEQ/L [id number] 00:00:00 Test Item Value Reference Range Interpretation Comments LITHIUM (test code = 2039) 0.39 MEQ/L [id number] 00:00:00 Test Item Value Reference Range Interpretation Comments LITHIUM (test code = 2039) 0.39 MEQ/L COMPREHENSIVE METABOLIC [id number] 00:00:00 Test Item Value Reference Range Interpretation Comments GLUCOSE (test code = 2217) 109 MG/DL BUN (test code = 2208) 14 MG/DL CREATININE (test code = 2214) 0.64 MG/DL eGFR (2020 CKD-EPI) (test 106 ML/MIN/1.73 code = 95028) CALC BUN/CREAT (test code = 22 RATIO 2235) SODIUM (test code = 2231) 141 MEQ/L POTASSIUM (test code = 2228) 4.6 MEQ/L CHLORIDE (test code = 2215) 108 MEQ/L CARBON DIOXIDE (test code = 26 MEQ/L 2206) CALCIUM (test code = 2209) 11.2 MG/DL PROTEIN, TOTAL (test code = 6.7 G/DL 2228) ALBUMIN (test code = 2201) 4.2 G/DL CALC GLOBULIN (test code = 2.5 G/DL 2240) CALC A/G RATIO (test code = 1.7 RATIO 2234) BILIRUBIN, TOTAL (test code = 0.4 MG/DL 2206) ALKALINE PHOSPHATASE (test 102 U/L code = 2204) AST (test code = 2218) 24 U/L ALT (test code = 2219) 43 U/L COMPREHENSIVE METABOLIC [id number] 00:00:00 Test Item Value Reference Range Interpretation Comments GLUCOSE (test code = 2217) 109 MG/DL BUN (test code = 2208) 14 MG/DL CREATININE (test code = 2214) 0.64 MG/DL eGFR (2020 CKD-EPI) (test 106 ML/MIN/1.73 code = 48045) CALC BUN/CREAT (test code = 22 RATIO 2235) SODIUM (test code = 2231) 141 MEQ/L POTASSIUM (test code = 2228) 4.6 MEQ/L CHLORIDE (test code = 2215) 108 MEQ/L CARBON DIOXIDE (test code = 26 MEQ/L 2205) CALCIUM (test code = 2209) 11.2 MG/DL PROTEIN, TOTAL (test code = 6.7 G/DL 2228) ALBUMIN (test code = 2201) 4.2 G/DL CALC GLOBULIN (test code = 2.5 G/DL 2240) CALC A/G RATIO (test code = 1.7 RATIO 2234) BILIRUBIN, TOTAL (test code = 0.4 MG/DL 2206) ALKALINE PHOSPHATASE (test 102 U/L code = 2204) AST (test code = 2218) 24 U/L ALT (test code = 2219) 43 U/L LIPID [id number] 00:00:00 Test Item Value Reference Range Interpretation Comments CHOLESTEROL (test code = 2210) 173 MG/DL TRIGLYCERIDES (test code = 2232) 248 MG/DL HDL CHOLESTEROL (test code = 2220) 33 MG/DL CALC LDL CHOL (test code = 2237) 105 MG/DL RISK RATIO LDL/HDL (test code = 3.18 RATIO 2238) LIPID [id number] 00:00:00 Test Item Value Reference Range Interpretation Comments CHOLESTEROL (test code = 2210) 173 MG/DL TRIGLYCERIDES (test code = 2232) 248 MG/DL HDL CHOLESTEROL (test code = 2220) 33 MG/DL CALC LDL CHOL (test code = 2237) 105 MG/DL RISK RATIO LDL/HDL (test code = 3.18 RATIO 2238) [id number] 00:00:00 Test Item Value Reference Range Interpretation Comments TSH, THIRD GENERATION (test code 1.470 UIU/ML = 2821) [id number] 00:00:00 Test Item Value Reference Range Interpretation Comments TSH, THIRD GENERATION (test code 1.470 UIU/ML = 2821) [id number] 00:00:00 Test Item Value Reference Range Interpretation Comments TSH, THIRD GENERATION (test code 1.470 UIU/ML = 2821) VITAMIN D, 25 [id number] 00:00:00 Test Item Value Reference Range Interpretation Comments VITAMIN D, 25 OH (test code = 4958) 20 NG/ML VITAMIN D, 25 [id number] 00:00:00 Test Item Value Reference Range Interpretation Comments VITAMIN D, 25 OH (test code = 4958) 20 NG/ML [id number] 00:00:00 Test Item Value Reference Range Interpretation Comments LITHIUM (test code = 203) 0.39 MEQ/L [id number] 00:00:00 Test Item Value Reference Range Interpretation Comments LITHIUM (test code = 2039) 0.39 MEQ/L [id number] 00:00:00 Test Item Value Reference Range Interpretation Comments LITHIUM (test code = 2039) 0.39 MEQ/L COMPREHENSIVE METABOLIC [id number] 00:00:00 Test Item Value Reference Range Interpretation Comments GLUCOSE (test code = 2217) 109 MG/DL BUN (test code = 2208) 14 MG/DL CREATININE (test code = 2214) 0.64 MG/DL eGFR (2020 CKD-EPI) (test 106 ML/MIN/1.73 code = 27440) CALC BUN/CREAT (test code = 22 RATIO 2235) SODIUM (test code = 2231) 141 MEQ/L POTASSIUM (test code = 2228) 4.6 MEQ/L CHLORIDE (test code = 2215) 108 MEQ/L CARBON DIOXIDE (test code = 26 MEQ/L 2206) CALCIUM (test code = 2209) 11.2 MG/DL PROTEIN, TOTAL (test code = 6.7 G/DL 2228) ALBUMIN (test code = 2201) 4.2 G/DL CALC GLOBULIN (test code = 2.5 G/DL 2240) CALC A/G RATIO (test code = 1.7 RATIO 2234) BILIRUBIN, TOTAL (test code = 0.4 MG/DL 2206) ALKALINE PHOSPHATASE (test 102 U/L code = 2204) AST (test code = 2218) 24 U/L ALT (test code = 2219) 43 U/L COMPREHENSIVE METABOLIC [id number] 00:00:00 Test Item Value Reference Range Interpretation Comments GLUCOSE (test code = 2217) 109 MG/DL BUN (test code = 2208) 14 MG/DL CREATININE (test code = 2214) 0.64 MG/DL eGFR (2020 CKD-EPI) (test 106 ML/MIN/1.73 code = 18254) CALC BUN/CREAT (test code = 22 RATIO 2235) SODIUM (test code = 2231) 141 MEQ/L POTASSIUM (test code = 2228) 4.6 MEQ/L CHLORIDE (test code = 2215) 108 MEQ/L CARBON DIOXIDE (test code = 26 MEQ/L 2205) CALCIUM (test code = 2209) 11.2 MG/DL PROTEIN, TOTAL (test code = 6.7 G/DL 2228) ALBUMIN (test code = 2201) 4.2 G/DL CALC GLOBULIN (test code = 2.5 G/DL 2240) CALC A/G RATIO (test code = 1.7 RATIO 2234) BILIRUBIN, TOTAL (test code = 0.4 MG/DL 2206) ALKALINE PHOSPHATASE (test 102 U/L code = 2204) AST (test code = 2218) 24 U/L ALT (test code = 2219) 43 U/L LIPID [id number] 00:00:00 Test Item Value Reference Range Interpretation Comments CHOLESTEROL (test code = 2210) 173 MG/DL TRIGLYCERIDES (test code = 2232) 248 MG/DL HDL CHOLESTEROL (test code = 2220) 33 MG/DL CALC LDL CHOL (test code = 2237) 105 MG/DL RISK RATIO LDL/HDL (test code = 3.18 RATIO 2238) LIPID [id number] 00:00:00 Test Item Value Reference Range Interpretation Comments CHOLESTEROL (test code = 2210) 173 MG/DL TRIGLYCERIDES (test code = 2232) 248 MG/DL HDL CHOLESTEROL (test code = 2220) 33 MG/DL CALC LDL CHOL (test code = 2237) 105 MG/DL RISK RATIO LDL/HDL (test code = 3.18 RATIO 2238) [id number] 00:00:00 Test Item Value Reference Range Interpretation Comments TSH, THIRD GENERATION (test code 1.470 UIU/ML = 2821) [id number] 00:00:00 Test Item Value Reference Range Interpretation Comments TSH, THIRD GENERATION (test code 1.470 UIU/ML = 2821) [id number] 00:00:00 Test Item Value Reference Range Interpretation Comments TSH, THIRD GENERATION (test code 1.470 UIU/ML = 2821) VITAMIN D, 25 [id number] 00:00:00 Test Item Value Reference Range Interpretation Comments VITAMIN D, 25 OH (test code = 4958) 20 NG/ML VITAMIN D, 25 [id number] 00:00:00 Test Item Value Reference Range Interpretation Comments VITAMIN D, 25 OH (test code = 4958) 20 NG/ML [id number] 00:00:00 Test Item Value Reference Range Interpretation Comments LITHIUM (test code = 2039) 0.39 MEQ/L [id number] 00:00:00 Test Item Value Reference Range Interpretation Comments LITHIUM (test code = 203) 0.39 MEQ/L [id number] 00:00:00 Test Item Value Reference Range Interpretation Comments LITHIUM (test code = 203) 0.39 MEQ/L COMPREHENSIVE METABOLIC [id number] 00:00:00 Test Item Value Reference Range Interpretation Comments GLUCOSE (test code = 2217) 109 MG/DL BUN (test code = 2208) 14 MG/DL CREATININE (test code = 2214) 0.64 MG/DL eGFR (2020 CKD-EPI) (test 106 ML/MIN/1.73 code = 74176) CALC BUN/CREAT (test code = 22 RATIO 2235) SODIUM (test code = 2231) 141 MEQ/L POTASSIUM (test code = 2228) 4.6 MEQ/L CHLORIDE (test code = 2215) 108 MEQ/L CARBON DIOXIDE (test code = 26 MEQ/L 2206) CALCIUM (test code = 2209) 11.2 MG/DL PROTEIN, TOTAL (test code = 6.7 G/DL 222) ALBUMIN (test code = 2201) 4.2 G/DL CALC GLOBULIN (test code = 2.5 G/DL 2240) CALC A/G RATIO (test code = 1.7 RATIO 2234) BILIRUBIN, TOTAL (test code = 0.4 MG/DL 2206) ALKALINE PHOSPHATASE (test 102 U/L code = 220) AST (test code = 2218) 24 U/L ALT (test code = 2219) 43 U/L COMPREHENSIVE METABOLIC [id number] 00:00:00 Test Item Value Reference Range Interpretation Comments GLUCOSE (test code = 2217) 109 MG/DL BUN (test code = 2208) 14 MG/DL CREATININE (test code = 2214) 0.64 MG/DL eGFR (2020 CKD-EPI) (test 106 ML/MIN/1.73 code = 84790) CALC BUN/CREAT (test code = 22 RATIO 2235) SODIUM (test code = 2231) 141 MEQ/L POTASSIUM (test code = 2228) 4.6 MEQ/L CHLORIDE (test code = 2215) 108 MEQ/L CARBON DIOXIDE (test code = 26 MEQ/L 2205) CALCIUM (test code = 2209) 11.2 MG/DL PROTEIN, TOTAL (test code = 6.7 G/DL 9) ALBUMIN (test code = 2201) 4.2 G/DL CALC GLOBULIN (test code = 2.5 G/DL 2240) CALC A/G RATIO (test code = 1.7 RATIO 2234) BILIRUBIN, TOTAL (test code = 0.4 MG/DL 2206) ALKALINE PHOSPHATASE (test 102 U/L code = 2204) AST (test code = 2218) 24 U/L ALT (test code = 2219) 43 U/L LIPID [id number] 00:00:00 Test Item Value Reference Range Interpretation Comments CHOLESTEROL (test code = 2210) 173 MG/DL TRIGLYCERIDES (test code = 2232) 248 MG/DL HDL CHOLESTEROL (test code = 2220) 33 MG/DL CALC LDL CHOL (test code = 2237) 105 MG/DL RISK RATIO LDL/HDL (test code = 3.18 RATIO 2238) LIPID [id number] 00:00:00 Test Item Value Reference Range Interpretation Comments CHOLESTEROL (test code = 2210) 173 MG/DL TRIGLYCERIDES (test code = 2232) 248 MG/DL HDL CHOLESTEROL (test code = 2220) 33 MG/DL CALC LDL CHOL (test code = 2237) 105 MG/DL RISK RATIO LDL/HDL (test code = 3.18 RATIO 2238) [id number] 00:00:00 Test Item Value Reference Range Interpretation Comments TSH, THIRD GENERATION (test code 1.470 UIU/ML = 2821) [id number] 00:00:00 Test Item Value Reference Range Interpretation Comments TSH, THIRD GENERATION (test code 1.470 UIU/ML = 2821) [id number] 00:00:00 Test Item Value Reference Range Interpretation Comments TSH, THIRD GENERATION (test code 1.470 UIU/ML = 2821) VITAMIN D, 25 [id number] 00:00:00 Test Item Value Reference Range Interpretation Comments VITAMIN D, 25 OH (test code = 4958) 20 NG/ML VITAMIN D, 25 [id number] 00:00:00 Test Item Value Reference Range Interpretation Comments VITAMIN D, 25 OH (test code = 4958) 20 NG/ML [id number] 00:00:00 Test Item Value Reference Range Interpretation Comments LITHIUM (test code = 2039) 0.39 MEQ/L [id number] 00:00:00 Test Item Value Reference Range Interpretation Comments LITHIUM (test code = 203) 0.39 MEQ/L [id number] 00:00:00 Test Item Value Reference Range Interpretation Comments LITHIUM (test code = 2039) 0.39 MEQ/L COMPREHENSIVE METABOLIC [id number] 00:00:00 Test Item Value Reference Range Interpretation Comments GLUCOSE (test code = 2217) 109 MG/DL BUN (test code = 2208) 14 MG/DL CREATININE (test code = 2214) 0.64 MG/DL eGFR (2020 CKD-EPI) (test 106 ML/MIN/1.73 code = 44722) CALC BUN/CREAT (test code = 22 RATIO 2235) SODIUM (test code = 2231) 141 MEQ/L POTASSIUM (test code = 2228) 4.6 MEQ/L CHLORIDE (test code = 2215) 108 MEQ/L CARBON DIOXIDE (test code = 26 MEQ/L 2206) CALCIUM (test code = 2209) 11.2 MG/DL PROTEIN, TOTAL (test code = 6.7 G/DL 2228) ALBUMIN (test code = 2201) 4.2 G/DL CALC GLOBULIN (test code = 2.5 G/DL 2240) CALC A/G RATIO (test code = 1.7 RATIO 2234) BILIRUBIN, TOTAL (test code = 0.4 MG/DL 2206) ALKALINE PHOSPHATASE (test 102 U/L code = 2204) AST (test code = 2218) 24 U/L ALT (test code = 2219) 43 U/L COMPREHENSIVE METABOLIC [id number] 00:00:00 Test Item Value Reference Range Interpretation Comments GLUCOSE (test code = 2217) 109 MG/DL BUN (test code = 2208) 14 MG/DL CREATININE (test code = 2214) 0.64 MG/DL eGFR (2020 CKD-EPI) (test 106 ML/MIN/1.73 code = 86378) CALC BUN/CREAT (test code = 22 RATIO 2235) SODIUM (test code = 2231) 141 MEQ/L POTASSIUM (test code = 2228) 4.6 MEQ/L CHLORIDE (test code = 2215) 108 MEQ/L CARBON DIOXIDE (test code = 26 MEQ/L 2205) CALCIUM (test code = 2209) 11.2 MG/DL PROTEIN, TOTAL (test code = 6.7 G/DL 2228) ALBUMIN (test code = 2201) 4.2 G/DL CALC GLOBULIN (test code = 2.5 G/DL 2240) CALC A/G RATIO (test code = 1.7 RATIO 2234) BILIRUBIN, TOTAL (test code = 0.4 MG/DL 2206) ALKALINE PHOSPHATASE (test 102 U/L code = 2204) AST (test code = 2218) 24 U/L ALT (test code = 2219) 43 U/L COMPREHENSIVE METABOLIC [id number] 00:00:00 Test Item Value Reference Range Interpretation Comments GLUCOSE (test code = 2217) 109 MG/DL BUN (test code = 2208) 14 MG/DL CREATININE (test code = 2214) 0.64 MG/DL eGFR (2020 CKD-EPI) (test 106 ML/MIN/1.73 code = 46817) CALC BUN/CREAT (test code = 22 RATIO 2235) SODIUM (test code = 2231) 141 MEQ/L POTASSIUM (test code = 2228) 4.6 MEQ/L CHLORIDE (test code = 2215) 108 MEQ/L CARBON DIOXIDE (test code = 26 MEQ/L 2205) CALCIUM (test code = 2209) 11.2 MG/DL PROTEIN, TOTAL (test code = 6.7 G/DL 2228) ALBUMIN (test code = 220) 4.2 G/DL CALC GLOBULIN (test code = 2.5 G/DL 2239) CALC A/G RATIO (test code = 1.7 RATIO 2233) BILIRUBIN, TOTAL (test code = 0.4 MG/DL 2206) ALKALINE PHOSPHATASE (test 102 U/L code = 2204) AST (test code = 2218) 24 U/L ALT (test code = 2219) 43 U/L LIPID [id number] 00:00:00 Test Item Value Reference Range Interpretation Comments CHOLESTEROL (test code = 2210) 173 MG/DL TRIGLYCERIDES (test code = 2232) 248 MG/DL HDL CHOLESTEROL (test code = 2220) 33 MG/DL CALC LDL CHOL (test code = 2237) 105 MG/DL RISK RATIO LDL/HDL (test code = 3.18 RATIO 2238) LIPID [id number] 00:00:00 Test Item Value Reference Range Interpretation Comments CHOLESTEROL (test code = 2210) 173 MG/DL TRIGLYCERIDES (test code = 2232) 248 MG/DL HDL CHOLESTEROL (test code = 2220) 33 MG/DL CALC LDL CHOL (test code = 2237) 105 MG/DL RISK RATIO LDL/HDL (test code = 3.18 RATIO 2238) LIPID [id number] 00:00:00 Test Item Value Reference Range Interpretation Comments CHOLESTEROL (test code = 2210) 173 MG/DL TRIGLYCERIDES (test code = 2232) 248 MG/DL HDL CHOLESTEROL (test code = 2220) 33 MG/DL CALC LDL CHOL (test code = 2236) 105 MG/DL RISK RATIO LDL/HDL (test code = 3.18 RATIO 8) [id number] 00:00:00 Test Item Value Reference Range Interpretation Comments TSH, THIRD GENERATION (test code 1.470 UIU/ML = 2821) [id number] 00:00:00 Test Item Value Reference Range Interpretation Comments TSH, THIRD GENERATION (test code 1.470 UIU/ML = 2821) [id number] 00:00:00 Test Item Value Reference Range Interpretation Comments TSH, THIRD GENERATION (test code 1.470 UIU/ML = 2821) VITAMIN D, 25 [id number] 00:00:00 Test Item Value Reference Range Interpretation Comments VITAMIN D, 25 OH (test code = 4958) 20 NG/ML VITAMIN D, 25 [id number] 00:00:00 Test Item Value Reference Range Interpretation Comments VITAMIN D, 25 OH (test code = 4958) 20 NG/ML [id number] 00:00:00 Test Item Value Reference Range Interpretation Comments LITHIUM (test code = 2038) 0.39 MEQ/L [id number] 00:00:00 Test Item Value Reference Range Interpretation Comments LITHIUM (test code = 2038) 0.39 MEQ/L [id number] 00:00:00 Test Item Value Reference Range Interpretation Comments LITHIUM (test code = 2038) 0.39 MEQ/L THYROID II PROFILE (T3U, T4, T7, TSH)2020-10-05 00:00:00 Test Item Value Reference Range Interpretation Comments T-UPTAKE (test code = 2816) 30.2 % THYROX. BIND. CAPAC. (test code 1.1 = 57677) T4 (THYROXINE) (test code = 4.4 UG/DL 2818) CORRECTED T4 (FTI) (test code = 4.0 UG/DL 2819) TSH, THIRD GENERATION (test code 4.570 UIU/ML = 2821) THYROID II PROFILE (T3U, T4, T7, TSH)2020-10-05 00:00:00 Test Item Value Reference Range Interpretation Comments T-UPTAKE (test code = 2816) 30.2 % THYROX. BIND. CAPAC. (test code 1.1 = 19658) T4 (THYROXINE) (test code = 4.4 UG/DL 2819) CORRECTED T4 (FTI) (test code = 4.0 UG/DL 2820) TSH, THIRD GENERATION (test code 4.570 UIU/ML = 2821) VITAMIN D, 25 [id number] 00:00:00 Test Item Value Reference Range Interpretation Comments VITAMIN D, 25 OH (test code = 4958) 20 NG/ML [id number] 00:00:00 Test Item Value Reference Range Interpretation Comments LITHIUM (test code = 2038) 0.38 MEQ/L [id number] 00:00:00 Test Item Value Reference Range Interpretation Comments LITHIUM (test code = 2038) 0.38 MEQ/L THYROID II PROFILE (T3U, T4, T7, TSH)2020-10-05 00:00:00 Test Item Value Reference Range Interpretation Comments T-UPTAKE (test code = 2817) 30.2 % THYROX. BIND. CAPAC. (test code 1.1 = 35981) T4 (THYROXINE) (test code = 4.4 UG/DL 2819) CORRECTED T4 (FTI) (test code = 4.0 UG/DL 2820) TSH, THIRD GENERATION (test code 4.570 UIU/ML = 2821) CBC W/AUTO [id number] 00:00:00 Test Item Value Reference Range Interpretation Comments WBC (test code = 1001) 9.2 K/UL RBC (test code = 1002) 4.81 M/UL HEMOGLOBIN (test code = 1003) 14.7 G/DL HEMATOCRIT (test code = 1004) 43.8 % MCV (test code = 1005) 91.1 fL MCH (test code = 1006) 30.6 PG MCHC (test code = 1007) 33.6 G/DL RDW (test code = 1038) 12.4 % NEUTROPHILS (test code = 1008) 68.7 % LYMPHOCYTES (test code = 1010) 21.3 % MONOCYTES (test code = 1011) 6.3 % EOSINOPHILS (test code = 1012) 2.6 % BASOPHILS (test code = 1013) 0.8 % IMMATURE GRANULOCYTES (test 0.3 % code = 1036) NUCLEATED RBCS (test code = 0.0 /100WBC'S 1065) PLATELET COUNT (test code = 237 K/UL 1015) ABSOLUTE NEUTROPHILS (test code 6.30 K/UL = 1066) ABSOLUTE LYMPHOCYTES (test code 1.95 K/UL = 1067) ABSOLUTE MONOCYTES (test code = 0.58 K/UL 1068) ABSOLUTE EOSINOPHILS (test code 0.24 K/UL = 1040) ABSOLUTE BASOPHILS (test code = 0.07 K/UL 1069) ABS IMMATURE GRANULOCYTES (test 0.03 K/UL code = 1020) ABS NUCLEATED RBCS (test code = 0.00 K/UL 22229) CBC W/AUTO [id number] 00:00:00 Test Item Value Reference Range Interpretation Comments WBC (test code = 1001) 9.2 K/UL RBC (test code = 1002) 4.81 M/UL HEMOGLOBIN (test code = 1003) 14.7 G/DL HEMATOCRIT (test code = 1004) 43.8 % MCV (test code = 1005) 91.1 fL MCH (test code = 1006) 30.6 PG MCHC (test code = 1007) 33.6 G/DL RDW (test code = 1038) 12.4 % NEUTROPHILS (test code = 1008) 68.7 % LYMPHOCYTES (test code = 1010) 21.3 % MONOCYTES (test code = 1011) 6.3 % EOSINOPHILS (test code = 1012) 2.6 % BASOPHILS (test code = 1013) 0.8 % IMMATURE GRANULOCYTES (test 0.3 % code = 1036) NUCLEATED RBCS (test code = 0.0 /100WBC'S 1065) PLATELET COUNT (test code = 237 K/UL 1015) ABSOLUTE NEUTROPHILS (test code 6.30 K/UL = 1066) ABSOLUTE LYMPHOCYTES (test code 1.95 K/UL = 1067) ABSOLUTE MONOCYTES (test code = 0.58 K/UL 1068) ABSOLUTE EOSINOPHILS (test code 0.24 K/UL = 1040) ABSOLUTE BASOPHILS (test code = 0.07 K/UL 1069) ABS IMMATURE GRANULOCYTES (test 0.03 K/UL code = 1020) ABS NUCLEATED RBCS (test code = 0.00 K/UL 97855) CBC W/AUTO [id number] 00:00:00 Test Item Value Reference Range Interpretation Comments WBC (test code = 1001) 9.2 K/UL RBC (test code = 1002) 4.81 M/UL HEMOGLOBIN (test code = 1003) 14.7 G/DL HEMATOCRIT (test code = 1004) 43.8 % MCV (test code = 1005) 91.1 fL MCH (test code = 1006) 30.6 PG MCHC (test code = 1007) 33.6 G/DL RDW (test code = 1038) 12.4 % NEUTROPHILS (test code = 1008) 68.7 % LYMPHOCYTES (test code = 1010) 21.3 % MONOCYTES (test code = 1011) 6.3 % EOSINOPHILS (test code = 1012) 2.6 % BASOPHILS (test code = 1013) 0.8 % IMMATURE GRANULOCYTES (test 0.3 % code = 1036) NUCLEATED RBCS (test code = 0.0 /100WBC'S 1065) PLATELET COUNT (test code = 237 K/UL 1015) ABSOLUTE NEUTROPHILS (test code 6.30 K/UL = 1066) ABSOLUTE LYMPHOCYTES (test code 1.95 K/UL = 1067) ABSOLUTE MONOCYTES (test code = 0.58 K/UL 1068) ABSOLUTE EOSINOPHILS (test code 0.24 K/UL = 1040) ABSOLUTE BASOPHILS (test code = 0.07 K/UL 1069) ABS IMMATURE GRANULOCYTES (test 0.03 K/UL code = 1020) ABS NUCLEATED RBCS (test code = 0.00 K/UL 58336) LIPID [id number] 00:00:00 Test Item Value Reference Range Interpretation Comments CHOLESTEROL (test code = 2210) 112 MG/DL TRIGLYCERIDES (test code = 2232) 140 MG/DL HDL CHOLESTEROL (test code = 2220) 34 MG/DL CALC LDL CHOL (test code = 2237) 56 MG/DL RISK RATIO LDL/HDL (test code = 1.65 RATIO 2238) LIPID [id number] 00:00:00 Test Item Value Reference Range Interpretation Comments CHOLESTEROL (test code = 2210) 112 MG/DL TRIGLYCERIDES (test code = 2232) 140 MG/DL HDL CHOLESTEROL (test code = 2220) 34 MG/DL CALC LDL CHOL (test code = 2237) 56 MG/DL RISK RATIO LDL/HDL (test code = 1.65 RATIO 2238) COMPREHENSIVE METABOLIC [id number] 00:00:00 Test Item Value Reference Range Interpretation Comments GLUCOSE (test code = 2217) 109 MG/DL BUN (test code = 2208) 11 MG/DL CREATININE (test code = 2214) 0.68 MG/DL eGFR AMER. (test code 116 ML/MIN/1.73 = 20208) eGFR NON- AMER. (test 100 ML/MIN/1.73 code = 81922) CALC BUN/CREAT (test code = 16 RATIO 2235) SODIUM (test code = 2231) 140 MEQ/L POTASSIUM (test code = 2228) 4.6 MEQ/L CHLORIDE (test code = 2215) 108 MEQ/L CARBON DIOXIDE (test code = 22 MEQ/L 220) CALCIUM (test code = 2209) 10.7 MG/DL PROTEIN, TOTAL (test code = 6.4 G/DL 2228) ALBUMIN (test code = 2201) 4.4 G/DL CALC GLOBULIN (test code = 2.0 G/DL 2240) CALC A/G RATIO (test code = 2.2 RATIO 2234) BILIRUBIN, TOTAL (test code = 0.3 MG/DL 2206) ALKALINE PHOSPHATASE (test 100 U/L code = 2204) AST (test code = 2218) 19 U/L ALT (test code = 2219) 29 U/L COMPREHENSIVE METABOLIC [id number] 00:00:00 Test Item Value Reference Range Interpretation Comments GLUCOSE (test code = 2217) 109 MG/DL BUN (test code = 2208) 11 MG/DL CREATININE (test code = 2214) 0.68 MG/DL eGFR AMER. (test code 116 ML/MIN/1.73 = 59915) eGFR NON- AMER. (test 100 ML/MIN/1.73 code = 82156) CALC BUN/CREAT (test code = 16 RATIO 2235) SODIUM (test code = 2231) 140 MEQ/L POTASSIUM (test code = 2228) 4.6 MEQ/L CHLORIDE (test code = 2215) 108 MEQ/L CARBON DIOXIDE (test code = 22 MEQ/L 220) CALCIUM (test code = 2209) 10.7 MG/DL PROTEIN, TOTAL (test code = 6.4 G/DL 2228) ALBUMIN (test code = 2201) 4.4 G/DL CALC GLOBULIN (test code = 2.0 G/DL 2240) CALC A/G RATIO (test code = 2.2 RATIO 2234) BILIRUBIN, TOTAL (test code = 0.3 MG/DL 2206) ALKALINE PHOSPHATASE (test 100 U/L code = 2204) AST (test code = 2218) 19 U/L ALT (test code = 2219) 29 U/L VITAMIN D, 25 [id number] 00:00:00 Test Item Value Reference Range Interpretation Comments VITAMIN D, 25 OH (test code = 4958) 20 NG/ML VITAMIN D, 25 [id number] 00:00:00 Test Item Value Reference Range Interpretation Comments VITAMIN D, 25 OH (test code = 4958) 20 NG/ML [id number] 00:00:00 Test Item Value Reference Range Interpretation Comments LITHIUM (test code = 2038) 0.38 MEQ/L [id number] 00:00:00 Test Item Value Reference Range Interpretation Comments LITHIUM (test code = 2038) 0.38 MEQ/L [id number] 00:00:00 Test Item Value Reference Range Interpretation Comments LITHIUM (test code = 2038) 0.38 MEQ/L THYROID II PROFILE (T3U, T4, T7, TSH)2020-10-05 00:00:00 Test Item Value Reference Range Interpretation Comments T-UPTAKE (test code = 2816) 30.2 % THYROX. BIND. CAPAC. (test code 1.1 = 20273) T4 (THYROXINE) (test code = 4.4 UG/DL 2818) CORRECTED T4 (FTI) (test code = 4.0 UG/DL 2820) TSH, THIRD GENERATION (test code 4.570 UIU/ML = 2821) THYROID II PROFILE (T3U, T4, T7, TSH)2020-10-05 00:00:00 Test Item Value Reference Range Interpretation Comments T-UPTAKE (test code = 2817) 30.2 % THYROX. BIND. CAPAC. (test code 1.1 = 51527) T4 (THYROXINE) (test code = 4.4 UG/DL 2819) CORRECTED T4 (FTI) (test code = 4.0 UG/DL 2820) TSH, THIRD GENERATION (test code 4.570 UIU/ML = 2821) CBC W/AUTO [id number] 00:00:00 Test Item Value Reference Range Interpretation Comments WBC (test code = 1001) 9.2 K/UL RBC (test code = 1002) 4.81 M/UL HEMOGLOBIN (test code = 1003) 14.7 G/DL HEMATOCRIT (test code = 1004) 43.8 % MCV (test code = 1005) 91.1 fL MCH (test code = 1006) 30.6 PG MCHC (test code = 1007) 33.6 G/DL RDW (test code = 1038) 12.4 % NEUTROPHILS (test code = 1008) 68.7 % LYMPHOCYTES (test code = 1010) 21.3 % MONOCYTES (test code = 1011) 6.3 % EOSINOPHILS (test code = 1012) 2.6 % BASOPHILS (test code = 1013) 0.8 % IMMATURE GRANULOCYTES (test 0.3 % code = 1036) NUCLEATED RBCS (test code = 0.0 /100WBC'S 1065) PLATELET COUNT (test code = 237 K/UL 1015) ABSOLUTE NEUTROPHILS (test code 6.30 K/UL = 1066) ABSOLUTE LYMPHOCYTES (test code 1.95 K/UL = 1067) ABSOLUTE MONOCYTES (test code = 0.58 K/UL 1068) ABSOLUTE EOSINOPHILS (test code 0.24 K/UL = 1040) ABSOLUTE BASOPHILS (test code = 0.07 K/UL 1069) ABS IMMATURE GRANULOCYTES (test 0.03 K/UL code = 1020) ABS NUCLEATED RBCS (test code = 0.00 K/UL 13409) CBC W/AUTO [id number] 00:00:00 Test Item Value Reference Range Interpretation Comments WBC (test code = 1001) 9.2 K/UL RBC (test code = 1002) 4.81 M/UL HEMOGLOBIN (test code = 1003) 14.7 G/DL HEMATOCRIT (test code = 1004) 43.8 % MCV (test code = 1005) 91.1 fL MCH (test code = 1006) 30.6 PG MCHC (test code = 1007) 33.6 G/DL RDW (test code = 1038) 12.4 % NEUTROPHILS (test code = 1008) 68.7 % LYMPHOCYTES (test code = 1010) 21.3 % MONOCYTES (test code = 1011) 6.3 % EOSINOPHILS (test code = 1012) 2.6 % BASOPHILS (test code = 1013) 0.8 % IMMATURE GRANULOCYTES (test 0.3 % code = 1036) NUCLEATED RBCS (test code = 0.0 /100WBC'S 1065) PLATELET COUNT (test code = 237 K/UL 1015) ABSOLUTE NEUTROPHILS (test code 6.30 K/UL = 1066) ABSOLUTE LYMPHOCYTES (test code 1.95 K/UL = 1067) ABSOLUTE MONOCYTES (test code = 0.58 K/UL 1068) ABSOLUTE EOSINOPHILS (test code 0.24 K/UL = 1040) ABSOLUTE BASOPHILS (test code = 0.07 K/UL 1069) ABS IMMATURE GRANULOCYTES (test 0.03 K/UL code = 1020) ABS NUCLEATED RBCS (test code = 0.00 K/UL 48110) CBC W/AUTO [id number] 00:00:00 Test Item Value Reference Range Interpretation Comments WBC (test code = 1001) 9.2 K/UL RBC (test code = 1002) 4.81 M/UL HEMOGLOBIN (test code = 1003) 14.7 G/DL HEMATOCRIT (test code = 1004) 43.8 % MCV (test code = 1005) 91.1 fL MCH (test code = 1006) 30.6 PG MCHC (test code = 1007) 33.6 G/DL RDW (test code = 1038) 12.4 % NEUTROPHILS (test code = 1008) 68.7 % LYMPHOCYTES (test code = 1010) 21.3 % MONOCYTES (test code = 1011) 6.3 % EOSINOPHILS (test code = 1012) 2.6 % BASOPHILS (test code = 1013) 0.8 % IMMATURE GRANULOCYTES (test 0.3 % code = 1036) NUCLEATED RBCS (test code = 0.0 /100WBC'S 1065) PLATELET COUNT (test code = 237 K/UL 1015) ABSOLUTE NEUTROPHILS (test code 6.30 K/UL = 1066) ABSOLUTE LYMPHOCYTES (test code 1.95 K/UL = 1067) ABSOLUTE MONOCYTES (test code = 0.58 K/UL 1068) ABSOLUTE EOSINOPHILS (test code 0.24 K/UL = 1040) ABSOLUTE BASOPHILS (test code = 0.07 K/UL 1069) ABS IMMATURE GRANULOCYTES (test 0.03 K/UL code = 1020) ABS NUCLEATED RBCS (test code = 0.00 K/UL 45621) LIPID [id number] 00:00:00 Test Item Value Reference Range Interpretation Comments CHOLESTEROL (test code = 2210) 112 MG/DL TRIGLYCERIDES (test code = 2232) 140 MG/DL HDL CHOLESTEROL (test code = 2220) 34 MG/DL CALC LDL CHOL (test code = 2237) 56 MG/DL RISK RATIO LDL/HDL (test code = 1.65 RATIO 2238) LIPID [id number] 00:00:00 Test Item Value Reference Range Interpretation Comments CHOLESTEROL (test code = 2210) 112 MG/DL TRIGLYCERIDES (test code = 2232) 140 MG/DL HDL CHOLESTEROL (test code = 2220) 34 MG/DL CALC LDL CHOL (test code = 2237) 56 MG/DL RISK RATIO LDL/HDL (test code = 1.65 RATIO 2238) COMPREHENSIVE METABOLIC [id number] 00:00:00 Test Item Value Reference Range Interpretation Comments GLUCOSE (test code = 2217) 109 MG/DL BUN (test code = 2208) 11 MG/DL CREATININE (test code = 2214) 0.68 MG/DL eGFR AMER. (test code 116 ML/MIN/1.73 = 34077) eGFR NON- AMER. (test 100 ML/MIN/1.73 code = 69773) CALC BUN/CREAT (test code = 16 RATIO 2235) SODIUM (test code = 2231) 140 MEQ/L POTASSIUM (test code = 2228) 4.6 MEQ/L CHLORIDE (test code = 2215) 108 MEQ/L CARBON DIOXIDE (test code = 22 MEQ/L 6) CALCIUM (test code = 2209) 10.7 MG/DL PROTEIN, TOTAL (test code = 6.4 G/DL 2228) ALBUMIN (test code = 2201) 4.4 G/DL CALC GLOBULIN (test code = 2.0 G/DL 2240) CALC A/G RATIO (test code = 2.2 RATIO 2234) BILIRUBIN, TOTAL (test code = 0.3 MG/DL 2206) ALKALINE PHOSPHATASE (test 100 U/L code = 2204) AST (test code = 2218) 19 U/L ALT (test code = 2219) 29 U/L COMPREHENSIVE METABOLIC [id number] 00:00:00 Test Item Value Reference Range Interpretation Comments GLUCOSE (test code = 2217) 109 MG/DL BUN (test code = 2208) 11 MG/DL CREATININE (test code = 2214) 0.68 MG/DL eGFR AMER. (test code 116 ML/MIN/1.73 = 45595) eGFR NON- AMER. (test 100 ML/MIN/1.73 code = 81688) CALC BUN/CREAT (test code = 16 RATIO 2235) SODIUM (test code = 2231) 140 MEQ/L POTASSIUM (test code = 2228) 4.6 MEQ/L CHLORIDE (test code = 2215) 108 MEQ/L CARBON DIOXIDE (test code = 22 MEQ/L 2205) CALCIUM (test code = 220) 10.7 MG/DL PROTEIN, TOTAL (test code = 6.4 G/DL 2228) ALBUMIN (test code = 220) 4.4 G/DL CALC GLOBULIN (test code = 2.0 G/DL 2239) CALC A/G RATIO (test code = 2.2 RATIO 2233) BILIRUBIN, TOTAL (test code = 0.3 MG/DL 2206) ALKALINE PHOSPHATASE (test 100 U/L code = 2204) AST (test code = 2218) 19 U/L ALT (test code = 2219) 29 U/L VITAMIN D, 25 [id number] 00:00:00 Test Item Value Reference Range Interpretation Comments VITAMIN D, 25 OH (test code = 4958) 20 NG/ML VITAMIN D, 25 [id number] 00:00:00 Test Item Value Reference Range Interpretation Comments VITAMIN D, 25 OH (test code = 4958) 20 NG/ML [id number] 00:00:00 Test Item Value Reference Range Interpretation Comments LITHIUM (test code = 2038) 0.38 MEQ/L [id number] 00:00:00 Test Item Value Reference Range Interpretation Comments LITHIUM (test code = 203) 0.38 MEQ/L [id number] 00:00:00 Test Item Value Reference Range Interpretation Comments LITHIUM (test code = 203) 0.38 MEQ/L THYROID II PROFILE (T3U, T4, T7, TSH)2020-10-05 00:00:00 Test Item Value Reference Range Interpretation Comments T-UPTAKE (test code = 2817) 30.2 % THYROX. BIND. CAPAC. (test code 1.1 = 02673) T4 (THYROXINE) (test code = 4.4 UG/DL 2818) CORRECTED T4 (FTI) (test code = 4.0 UG/DL 2820) TSH, THIRD GENERATION (test code 4.570 UIU/ML = 2821) THYROID II PROFILE (T3U, T4, T7, TSH)2020-10-05 00:00:00 Test Item Value Reference Range Interpretation Comments T-UPTAKE (test code = 2817) 30.2 % THYROX. BIND. CAPAC. (test code 1.1 = 51225) T4 (THYROXINE) (test code = 4.4 UG/DL 2819) CORRECTED T4 (FTI) (test code = 4.0 UG/DL 2820) TSH, THIRD GENERATION (test code 4.570 UIU/ML = 2821) CBC W/AUTO [id number] 00:00:00 Test Item Value Reference Range Interpretation Comments WBC (test code = 1001) 9.2 K/UL RBC (test code = 1002) 4.81 M/UL HEMOGLOBIN (test code = 1003) 14.7 G/DL HEMATOCRIT (test code = 1004) 43.8 % MCV (test code = 1005) 91.1 fL MCH (test code = 1006) 30.6 PG MCHC (test code = 1007) 33.6 G/DL RDW (test code = 1038) 12.4 % NEUTROPHILS (test code = 1008) 68.7 % LYMPHOCYTES (test code = 1010) 21.3 % MONOCYTES (test code = 1011) 6.3 % EOSINOPHILS (test code = 1012) 2.6 % BASOPHILS (test code = 1013) 0.8 % IMMATURE GRANULOCYTES (test 0.3 % code = 1036) NUCLEATED RBCS (test code = 0.0 /100WBC'S 1065) PLATELET COUNT (test code = 237 K/UL 1015) ABSOLUTE NEUTROPHILS (test code 6.30 K/UL = 1066) ABSOLUTE LYMPHOCYTES (test code 1.95 K/UL = 1067) ABSOLUTE MONOCYTES (test code = 0.58 K/UL 1068) ABSOLUTE EOSINOPHILS (test code 0.24 K/UL = 1040) ABSOLUTE BASOPHILS (test code = 0.07 K/UL 1069) ABS IMMATURE GRANULOCYTES (test 0.03 K/UL code = 1020) ABS NUCLEATED RBCS (test code = 0.00 K/UL 54352) CBC W/AUTO [id number] 00:00:00 Test Item Value Reference Range Interpretation Comments WBC (test code = 1001) 9.2 K/UL RBC (test code = 1002) 4.81 M/UL HEMOGLOBIN (test code = 1003) 14.7 G/DL HEMATOCRIT (test code = 1004) 43.8 % MCV (test code = 1005) 91.1 fL MCH (test code = 1006) 30.6 PG MCHC (test code = 1007) 33.6 G/DL RDW (test code = 1038) 12.4 % NEUTROPHILS (test code = 1008) 68.7 % LYMPHOCYTES (test code = 1010) 21.3 % MONOCYTES (test code = 1011) 6.3 % EOSINOPHILS (test code = 1012) 2.6 % BASOPHILS (test code = 1013) 0.8 % IMMATURE GRANULOCYTES (test 0.3 % code = 1036) NUCLEATED RBCS (test code = 0.0 /100WBC'S 1065) PLATELET COUNT (test code = 237 K/UL 1015) ABSOLUTE NEUTROPHILS (test code 6.30 K/UL = 1066) ABSOLUTE LYMPHOCYTES (test code 1.95 K/UL = 1067) ABSOLUTE MONOCYTES (test code = 0.58 K/UL 1068) ABSOLUTE EOSINOPHILS (test code 0.24 K/UL = 1040) ABSOLUTE BASOPHILS (test code = 0.07 K/UL 1069) ABS IMMATURE GRANULOCYTES (test 0.03 K/UL code = 1020) ABS NUCLEATED RBCS (test code = 0.00 K/UL 77204) CBC W/AUTO [id number] 00:00:00 Test Item Value Reference Range Interpretation Comments WBC (test code = 1001) 9.2 K/UL RBC (test code = 1002) 4.81 M/UL HEMOGLOBIN (test code = 1003) 14.7 G/DL HEMATOCRIT (test code = 1004) 43.8 % MCV (test code = 1005) 91.1 fL MCH (test code = 1006) 30.6 PG MCHC (test code = 1007) 33.6 G/DL RDW (test code = 1038) 12.4 % NEUTROPHILS (test code = 1008) 68.7 % LYMPHOCYTES (test code = 1010) 21.3 % MONOCYTES (test code = 1011) 6.3 % EOSINOPHILS (test code = 1012) 2.6 % BASOPHILS (test code = 1013) 0.8 % IMMATURE GRANULOCYTES (test 0.3 % code = 1036) NUCLEATED RBCS (test code = 0.0 /100WBC'S 1065) PLATELET COUNT (test code = 237 K/UL 1015) ABSOLUTE NEUTROPHILS (test code 6.30 K/UL = 1066) ABSOLUTE LYMPHOCYTES (test code 1.95 K/UL = 1067) ABSOLUTE MONOCYTES (test code = 0.58 K/UL 1068) ABSOLUTE EOSINOPHILS (test code 0.24 K/UL = 1040) ABSOLUTE BASOPHILS (test code = 0.07 K/UL 1069) ABS IMMATURE GRANULOCYTES (test 0.03 K/UL code = 1020) ABS NUCLEATED RBCS (test code = 0.00 K/UL 10702) LIPID [id number] 00:00:00 Test Item Value Reference Range Interpretation Comments CHOLESTEROL (test code = 2210) 112 MG/DL TRIGLYCERIDES (test code = 2232) 140 MG/DL HDL CHOLESTEROL (test code = 2220) 34 MG/DL CALC LDL CHOL (test code = 2237) 56 MG/DL RISK RATIO LDL/HDL (test code = 1.65 RATIO 2238) LIPID [id number] 00:00:00 Test Item Value Reference Range Interpretation Comments CHOLESTEROL (test code = 2210) 112 MG/DL TRIGLYCERIDES (test code = 2232) 140 MG/DL HDL CHOLESTEROL (test code = 2220) 34 MG/DL CALC LDL CHOL (test code = 2237) 56 MG/DL RISK RATIO LDL/HDL (test code = 1.65 RATIO 2238) COMPREHENSIVE METABOLIC [id number] 00:00:00 Test Item Value Reference Range Interpretation Comments GLUCOSE (test code = 2217) 109 MG/DL BUN (test code = 2208) 11 MG/DL CREATININE (test code = 2214) 0.68 MG/DL eGFR AMER. (test code 116 ML/MIN/1.73 = 66958) eGFR NON- AMER. (test 100 ML/MIN/1.73 code = 87031) CALC BUN/CREAT (test code = 16 RATIO 2235) SODIUM (test code = 2231) 140 MEQ/L POTASSIUM (test code = 2228) 4.6 MEQ/L CHLORIDE (test code = 2215) 108 MEQ/L CARBON DIOXIDE (test code = 22 MEQ/L 220) CALCIUM (test code = 2209) 10.7 MG/DL PROTEIN, TOTAL (test code = 6.4 G/DL 2228) ALBUMIN (test code = 2201) 4.4 G/DL CALC GLOBULIN (test code = 2.0 G/DL 2240) CALC A/G RATIO (test code = 2.2 RATIO 2234) BILIRUBIN, TOTAL (test code = 0.3 MG/DL 220) ALKALINE PHOSPHATASE (test 100 U/L code = 2204) AST (test code = 2218) 19 U/L ALT (test code = 2219) 29 U/L COMPREHENSIVE METABOLIC [id number] 00:00:00 Test Item Value Reference Range Interpretation Comments GLUCOSE (test code = 2217) 109 MG/DL BUN (test code = 2208) 11 MG/DL CREATININE (test code = 2214) 0.68 MG/DL eGFR AMER. (test code 116 ML/MIN/1.73 = 38452) eGFR NON- AMER. (test 100 ML/MIN/1.73 code = 27262) CALC BUN/CREAT (test code = 16 RATIO 2235) SODIUM (test code = 2231) 140 MEQ/L POTASSIUM (test code = 2228) 4.6 MEQ/L CHLORIDE (test code = 2215) 108 MEQ/L CARBON DIOXIDE (test code = 22 MEQ/L 2205) CALCIUM (test code = 2209) 10.7 MG/DL PROTEIN, TOTAL (test code = 6.4 G/DL 2228) ALBUMIN (test code = 2201) 4.4 G/DL CALC GLOBULIN (test code = 2.0 G/DL 2240) CALC A/G RATIO (test code = 2.2 RATIO 2234) BILIRUBIN, TOTAL (test code = 0.3 MG/DL 2207) ALKALINE PHOSPHATASE (test 100 U/L code = 2204) AST (test code = 2218) 19 U/L ALT (test code = 2219) 29 U/L VITAMIN D, 25 [id number] 00:00:00 Test Item Value Reference Range Interpretation Comments VITAMIN D, 25 OH (test code = 4958) 20 NG/ML VITAMIN D, 25 [id number] 00:00:00 Test Item Value Reference Range Interpretation Comments VITAMIN D, 25 OH (test code = 4958) 20 NG/ML [id number] 00:00:00 Test Item Value Reference Range Interpretation Comments LITHIUM (test code = 2038) 0.38 MEQ/L [id number] 00:00:00 Test Item Value Reference Range Interpretation Comments LITHIUM (test code = 2038) 0.38 MEQ/L [id number] 00:00:00 Test Item Value Reference Range Interpretation Comments LITHIUM (test code = 2038) 0.38 MEQ/L THYROID II PROFILE (T3U, T4, T7, TSH)2020-10-05 00:00:00 Test Item Value Reference Range Interpretation Comments T-UPTAKE (test code = 2816) 30.2 % THYROX. BIND. CAPAC. (test code 1.1 = 62689) T4 (THYROXINE) (test code = 4.4 UG/DL 2818) CORRECTED T4 (FTI) (test code = 4.0 UG/DL 2820) TSH, THIRD GENERATION (test code 4.570 UIU/ML = 2821) THYROID II PROFILE (T3U, T4, T7, TSH)2020-10-05 00:00:00 Test Item Value Reference Range Interpretation Comments T-UPTAKE (test code = 2816) 30.2 % THYROX. BIND. CAPAC. (test code 1.1 = 66585) T4 (THYROXINE) (test code = 4.4 UG/DL 2819) CORRECTED T4 (FTI) (test code = 4.0 UG/DL 2820) TSH, THIRD GENERATION (test code 4.570 UIU/ML = 2821) CBC W/AUTO [id number] 00:00:00 Test Item Value Reference Range Interpretation Comments WBC (test code = 1001) 9.2 K/UL RBC (test code = 1002) 4.81 M/UL HEMOGLOBIN (test code = 1003) 14.7 G/DL HEMATOCRIT (test code = 1004) 43.8 % MCV (test code = 1005) 91.1 fL MCH (test code = 1006) 30.6 PG MCHC (test code = 1007) 33.6 G/DL RDW (test code = 1038) 12.4 % NEUTROPHILS (test code = 1008) 68.7 % LYMPHOCYTES (test code = 1010) 21.3 % MONOCYTES (test code = 1011) 6.3 % EOSINOPHILS (test code = 1012) 2.6 % BASOPHILS (test code = 1013) 0.8 % IMMATURE GRANULOCYTES (test 0.3 % code = 1036) NUCLEATED RBCS (test code = 0.0 /100WBC'S 1065) PLATELET COUNT (test code = 237 K/UL 1015) ABSOLUTE NEUTROPHILS (test code 6.30 K/UL = 1066) ABSOLUTE LYMPHOCYTES (test code 1.95 K/UL = 1067) ABSOLUTE MONOCYTES (test code = 0.58 K/UL 1068) ABSOLUTE EOSINOPHILS (test code 0.24 K/UL = 1040) ABSOLUTE BASOPHILS (test code = 0.07 K/UL 1069) ABS IMMATURE GRANULOCYTES (test 0.03 K/UL code = 1020) ABS NUCLEATED RBCS (test code = 0.00 K/UL 60937) CBC W/AUTO [id number] 00:00:00 Test Item Value Reference Range Interpretation Comments WBC (test code = 1001) 9.2 K/UL RBC (test code = 1002) 4.81 M/UL HEMOGLOBIN (test code = 1003) 14.7 G/DL HEMATOCRIT (test code = 1004) 43.8 % MCV (test code = 1005) 91.1 fL MCH (test code = 1006) 30.6 PG MCHC (test code = 1007) 33.6 G/DL RDW (test code = 1038) 12.4 % NEUTROPHILS (test code = 1008) 68.7 % LYMPHOCYTES (test code = 1010) 21.3 % MONOCYTES (test code = 1011) 6.3 % EOSINOPHILS (test code = 1012) 2.6 % BASOPHILS (test code = 1013) 0.8 % IMMATURE GRANULOCYTES (test 0.3 % code = 1036) NUCLEATED RBCS (test code = 0.0 /100WBC'S 1065) PLATELET COUNT (test code = 237 K/UL 1015) ABSOLUTE NEUTROPHILS (test code 6.30 K/UL = 1066) ABSOLUTE LYMPHOCYTES (test code 1.95 K/UL = 1067) ABSOLUTE MONOCYTES (test code = 0.58 K/UL 1068) ABSOLUTE EOSINOPHILS (test code 0.24 K/UL = 1040) ABSOLUTE BASOPHILS (test code = 0.07 K/UL 1069) ABS IMMATURE GRANULOCYTES (test 0.03 K/UL code = 1020) ABS NUCLEATED RBCS (test code = 0.00 K/UL 43613) CBC W/AUTO [id number] 00:00:00 Test Item Value Reference Range Interpretation Comments WBC (test code = 1001) 9.2 K/UL RBC (test code = 1002) 4.81 M/UL HEMOGLOBIN (test code = 1003) 14.7 G/DL HEMATOCRIT (test code = 1004) 43.8 % MCV (test code = 1005) 91.1 fL MCH (test code = 1006) 30.6 PG MCHC (test code = 1007) 33.6 G/DL RDW (test code = 1038) 12.4 % NEUTROPHILS (test code = 1008) 68.7 % LYMPHOCYTES (test code = 1010) 21.3 % MONOCYTES (test code = 1011) 6.3 % EOSINOPHILS (test code = 1012) 2.6 % BASOPHILS (test code = 1013) 0.8 % IMMATURE GRANULOCYTES (test 0.3 % code = 1036) NUCLEATED RBCS (test code = 0.0 /100WBC'S 1065) PLATELET COUNT (test code = 237 K/UL 1015) ABSOLUTE NEUTROPHILS (test code 6.30 K/UL = 1066) ABSOLUTE LYMPHOCYTES (test code 1.95 K/UL = 1067) ABSOLUTE MONOCYTES (test code = 0.58 K/UL 1068) ABSOLUTE EOSINOPHILS (test code 0.24 K/UL = 1040) ABSOLUTE BASOPHILS (test code = 0.07 K/UL 1069) ABS IMMATURE GRANULOCYTES (test 0.03 K/UL code = 1020) ABS NUCLEATED RBCS (test code = 0.00 K/UL 73644) LIPID [id number] 00:00:00 Test Item Value Reference Range Interpretation Comments CHOLESTEROL (test code = 2210) 112 MG/DL TRIGLYCERIDES (test code = 2232) 140 MG/DL HDL CHOLESTEROL (test code = 2220) 34 MG/DL CALC LDL CHOL (test code = 2237) 56 MG/DL RISK RATIO LDL/HDL (test code = 1.65 RATIO 2238) LIPID [id number] 00:00:00 Test Item Value Reference Range Interpretation Comments CHOLESTEROL (test code = 2210) 112 MG/DL TRIGLYCERIDES (test code = 2232) 140 MG/DL HDL CHOLESTEROL (test code = 2220) 34 MG/DL CALC LDL CHOL (test code = 2237) 56 MG/DL RISK RATIO LDL/HDL (test code = 1.65 RATIO 2238) COMPREHENSIVE METABOLIC [id number] 00:00:00 Test Item Value Reference Range Interpretation Comments GLUCOSE (test code = 2217) 109 MG/DL BUN (test code = 2208) 11 MG/DL CREATININE (test code = 2214) 0.68 MG/DL eGFR AMER. (test code 116 ML/MIN/1.73 = 88124) eGFR NON- AMER. (test 100 ML/MIN/1.73 code = 82364) CALC BUN/CREAT (test code = 16 RATIO 2235) SODIUM (test code = 2231) 140 MEQ/L POTASSIUM (test code = 2228) 4.6 MEQ/L CHLORIDE (test code = 2215) 108 MEQ/L CARBON DIOXIDE (test code = 22 MEQ/L 2205) CALCIUM (test code = 2209) 10.7 MG/DL PROTEIN, TOTAL (test code = 6.4 G/DL 2228) ALBUMIN (test code = 2201) 4.4 G/DL CALC GLOBULIN (test code = 2.0 G/DL 224) CALC A/G RATIO (test code = 2.2 RATIO 2234) BILIRUBIN, TOTAL (test code = 0.3 MG/DL 2206) ALKALINE PHOSPHATASE (test 100 U/L code = 2204) AST (test code = 2218) 19 U/L ALT (test code = 2219) 29 U/L COMPREHENSIVE METABOLIC [id number] 00:00:00 Test Item Value Reference Range Interpretation Comments GLUCOSE (test code = 2217) 109 MG/DL BUN (test code = 2208) 11 MG/DL CREATININE (test code = 2214) 0.68 MG/DL eGFR AMER. (test code 116 ML/MIN/1.73 = 48256) eGFR NON- AMER. (test 100 ML/MIN/1.73 code = 15588) CALC BUN/CREAT (test code = 16 RATIO 2235) SODIUM (test code = 2231) 140 MEQ/L POTASSIUM (test code = 2228) 4.6 MEQ/L CHLORIDE (test code = 2215) 108 MEQ/L CARBON DIOXIDE (test code = 22 MEQ/L 220) CALCIUM (test code = 2209) 10.7 MG/DL PROTEIN, TOTAL (test code = 6.4 G/DL 2229) ALBUMIN (test code = 2201) 4.4 G/DL CALC GLOBULIN (test code = 2.0 G/DL 2240) CALC A/G RATIO (test code = 2.2 RATIO 4) BILIRUBIN, TOTAL (test code = 0.3 MG/DL 2206) ALKALINE PHOSPHATASE (test 100 U/L code = 2204) AST (test code = 2218) 19 U/L ALT (test code = 2219) 29 U/L VITAMIN D, 25 [id number] 00:00:00 Test Item Value Reference Range Interpretation Comments VITAMIN D, 25 OH (test code = 4958) 20 NG/ML VITAMIN D, 25 [id number] 00:00:00 Test Item Value Reference Range Interpretation Comments VITAMIN D, 25 OH (test code = 4958) 20 NG/ML [id number] 00:00:00 Test Item Value Reference Range Interpretation Comments LITHIUM (test code = 2038) 0.38 MEQ/L [id number] 00:00:00 Test Item Value Reference Range Interpretation Comments LITHIUM (test code = 2038) 0.38 MEQ/L [id number] 00:00:00 Test Item Value Reference Range Interpretation Comments LITHIUM (test code = 2038) 0.38 MEQ/L THYROID II PROFILE (T3U, T4, T7, TSH)2020-10-05 00:00:00 Test Item Value Reference Range Interpretation Comments T-UPTAKE (test code = 2816) 30.2 % THYROX. BIND. CAPAC. (test code 1.1 = 86656) T4 (THYROXINE) (test code = 4.4 UG/DL 2818) CORRECTED T4 (FTI) (test code = 4.0 UG/DL 2820) TSH, THIRD GENERATION (test code 4.570 UIU/ML = 2821) THYROID II PROFILE (T3U, T4, T7, TSH)2020-10-05 00:00:00 Test Item Value Reference Range Interpretation Comments T-UPTAKE (test code = 2816) 30.2 % THYROX. BIND. CAPAC. (test code 1.1 = 62955) T4 (THYROXINE) (test code = 4.4 UG/DL 2819) CORRECTED T4 (FTI) (test code = 4.0 UG/DL 2820) TSH, THIRD GENERATION (test code 4.570 UIU/ML = 2821) CBC W/AUTO [id number] 00:00:00 Test Item Value Reference Range Interpretation Comments WBC (test code = 1001) 9.2 K/UL RBC (test code = 1002) 4.81 M/UL HEMOGLOBIN (test code = 1003) 14.7 G/DL HEMATOCRIT (test code = 1004) 43.8 % MCV (test code = 1005) 91.1 fL MCH (test code = 1006) 30.6 PG MCHC (test code = 1007) 33.6 G/DL RDW (test code = 1038) 12.4 % NEUTROPHILS (test code = 1008) 68.7 % LYMPHOCYTES (test code = 1010) 21.3 % MONOCYTES (test code = 1011) 6.3 % EOSINOPHILS (test code = 1012) 2.6 % BASOPHILS (test code = 1013) 0.8 % IMMATURE GRANULOCYTES (test 0.3 % code = 1036) NUCLEATED RBCS (test code = 0.0 /100WBC'S 1065) PLATELET COUNT (test code = 237 K/UL 1015) ABSOLUTE NEUTROPHILS (test code 6.30 K/UL = 1066) ABSOLUTE LYMPHOCYTES (test code 1.95 K/UL = 1067) ABSOLUTE MONOCYTES (test code = 0.58 K/UL 1068) ABSOLUTE EOSINOPHILS (test code 0.24 K/UL = 1040) ABSOLUTE BASOPHILS (test code = 0.07 K/UL 1069) ABS IMMATURE GRANULOCYTES (test 0.03 K/UL code = 1020) ABS NUCLEATED RBCS (test code = 0.00 K/UL 01819) CBC W/AUTO [id number] 00:00:00 Test Item Value Reference Range Interpretation Comments WBC (test code = 1001) 9.2 K/UL RBC (test code = 1002) 4.81 M/UL HEMOGLOBIN (test code = 1003) 14.7 G/DL HEMATOCRIT (test code = 1004) 43.8 % MCV (test code = 1005) 91.1 fL MCH (test code = 1006) 30.6 PG MCHC (test code = 1007) 33.6 G/DL RDW (test code = 1038) 12.4 % NEUTROPHILS (test code = 1008) 68.7 % LYMPHOCYTES (test code = 1010) 21.3 % MONOCYTES (test code = 1011) 6.3 % EOSINOPHILS (test code = 1012) 2.6 % BASOPHILS (test code = 1013) 0.8 % IMMATURE GRANULOCYTES (test 0.3 % code = 1036) NUCLEATED RBCS (test code = 0.0 /100WBC'S 1065) PLATELET COUNT (test code = 237 K/UL 1015) ABSOLUTE NEUTROPHILS (test code 6.30 K/UL = 1066) ABSOLUTE LYMPHOCYTES (test code 1.95 K/UL = 1067) ABSOLUTE MONOCYTES (test code = 0.58 K/UL 1068) ABSOLUTE EOSINOPHILS (test code 0.24 K/UL = 1040) ABSOLUTE BASOPHILS (test code = 0.07 K/UL 1069) ABS IMMATURE GRANULOCYTES (test 0.03 K/UL code = 1020) ABS NUCLEATED RBCS (test code = 0.00 K/UL 65357) CBC W/AUTO [id number] 00:00:00 Test Item Value Reference Range Interpretation Comments WBC (test code = 1001) 9.2 K/UL RBC (test code = 1002) 4.81 M/UL HEMOGLOBIN (test code = 1003) 14.7 G/DL HEMATOCRIT (test code = 1004) 43.8 % MCV (test code = 1005) 91.1 fL MCH (test code = 1006) 30.6 PG MCHC (test code = 1007) 33.6 G/DL RDW (test code = 1038) 12.4 % NEUTROPHILS (test code = 1008) 68.7 % LYMPHOCYTES (test code = 1010) 21.3 % MONOCYTES (test code = 1011) 6.3 % EOSINOPHILS (test code = 1012) 2.6 % BASOPHILS (test code = 1013) 0.8 % IMMATURE GRANULOCYTES (test 0.3 % code = 1036) NUCLEATED RBCS (test code = 0.0 /100WBC'S 1065) PLATELET COUNT (test code = 237 K/UL 1015) ABSOLUTE NEUTROPHILS (test code 6.30 K/UL = 1066) ABSOLUTE LYMPHOCYTES (test code 1.95 K/UL = 1067) ABSOLUTE MONOCYTES (test code = 0.58 K/UL 1068) ABSOLUTE EOSINOPHILS (test code 0.24 K/UL = 1040) ABSOLUTE BASOPHILS (test code = 0.07 K/UL 1069) ABS IMMATURE GRANULOCYTES (test 0.03 K/UL code = 1020) ABS NUCLEATED RBCS (test code = 0.00 K/UL 39487) LIPID [id number] 00:00:00 Test Item Value Reference Range Interpretation Comments CHOLESTEROL (test code = 2210) 112 MG/DL TRIGLYCERIDES (test code = 2232) 140 MG/DL HDL CHOLESTEROL (test code = 2220) 34 MG/DL CALC LDL CHOL (test code = 2237) 56 MG/DL RISK RATIO LDL/HDL (test code = 1.65 RATIO 2238) LIPID [id number] 00:00:00 Test Item Value Reference Range Interpretation Comments CHOLESTEROL (test code = 2210) 112 MG/DL TRIGLYCERIDES (test code = 2232) 140 MG/DL HDL CHOLESTEROL (test code = 2220) 34 MG/DL CALC LDL CHOL (test code = 2237) 56 MG/DL RISK RATIO LDL/HDL (test code = 1.65 RATIO 2238) COMPREHENSIVE METABOLIC [id number] 00:00:00 Test Item Value Reference Range Interpretation Comments GLUCOSE (test code = 2217) 109 MG/DL BUN (test code = 2208) 11 MG/DL CREATININE (test code = 2214) 0.68 MG/DL eGFR AMER. (test code 116 ML/MIN/1.73 = 81251) eGFR NON- AMER. (test 100 ML/MIN/1.73 code = 92983) CALC BUN/CREAT (test code = 16 RATIO 2235) SODIUM (test code = 2231) 140 MEQ/L POTASSIUM (test code = 2228) 4.6 MEQ/L CHLORIDE (test code = 2215) 108 MEQ/L CARBON DIOXIDE (test code = 22 MEQ/L 2205) CALCIUM (test code = 2209) 10.7 MG/DL PROTEIN, TOTAL (test code = 6.4 G/DL 2228) ALBUMIN (test code = 2201) 4.4 G/DL CALC GLOBULIN (test code = 2.0 G/DL 2240) CALC A/G RATIO (test code = 2.2 RATIO 2234) BILIRUBIN, TOTAL (test code = 0.3 MG/DL 2206) ALKALINE PHOSPHATASE (test 100 U/L code = 2204) AST (test code = 2218) 19 U/L ALT (test code = 2219) 29 U/L COMPREHENSIVE METABOLIC [id number] 00:00:00 Test Item Value Reference Range Interpretation Comments GLUCOSE (test code = 2217) 109 MG/DL BUN (test code = 2208) 11 MG/DL CREATININE (test code = 2214) 0.68 MG/DL eGFR AMER. (test code 116 ML/MIN/1.73 = 70048) eGFR NON- AMER. (test 100 ML/MIN/1.73 code = 10884) CALC BUN/CREAT (test code = 16 RATIO 2235) SODIUM (test code = 2231) 140 MEQ/L POTASSIUM (test code = 2228) 4.6 MEQ/L CHLORIDE (test code = 2215) 108 MEQ/L CARBON DIOXIDE (test code = 22 MEQ/L 2205) CALCIUM (test code = 220) 10.7 MG/DL PROTEIN, TOTAL (test code = 6.4 G/DL 2228) ALBUMIN (test code = 220) 4.4 G/DL CALC GLOBULIN (test code = 2.0 G/DL 2239) CALC A/G RATIO (test code = 2.2 RATIO 2233) BILIRUBIN, TOTAL (test code = 0.3 MG/DL 2206) ALKALINE PHOSPHATASE (test 100 U/L code = 2204) AST (test code = 2218) 19 U/L ALT (test code = 2219) 29 U/L VITAMIN D, 25 [id number] 00:00:00 Test Item Value Reference Range Interpretation Comments VITAMIN D, 25 OH (test code = 4958) 20 NG/ML VITAMIN D, 25 [id number] 00:00:00 Test Item Value Reference Range Interpretation Comments VITAMIN D, 25 OH (test code = 4958) 20 NG/ML [id number] 00:00:00 Test Item Value Reference Range Interpretation Comments LITHIUM (test code = 2038) 0.38 MEQ/L [id number] 00:00:00 Test Item Value Reference Range Interpretation Comments LITHIUM (test code = 203) 0.38 MEQ/L [id number] 00:00:00 Test Item Value Reference Range Interpretation Comments LITHIUM (test code = 203) 0.38 MEQ/L THYROID II PROFILE (T3U, T4, T7, TSH)2020-10-05 00:00:00 Test Item Value Reference Range Interpretation Comments T-UPTAKE (test code = 2817) 30.2 % THYROX. BIND. CAPAC. (test code 1.1 = 19409) T4 (THYROXINE) (test code = 4.4 UG/DL 2819) CORRECTED T4 (FTI) (test code = 4.0 UG/DL 2820) TSH, THIRD GENERATION (test code 4.570 UIU/ML = 2821) THYROID II PROFILE (T3U, T4, T7, TSH)2020-10-05 00:00:00 Test Item Value Reference Range Interpretation Comments T-UPTAKE (test code = 2817) 30.2 % THYROX. BIND. CAPAC. (test code 1.1 = 15295) T4 (THYROXINE) (test code = 4.4 UG/DL 2819) CORRECTED T4 (FTI) (test code = 4.0 UG/DL 2820) TSH, THIRD GENERATION (test code 4.570 UIU/ML = 2821) CBC W/AUTO [id number] 00:00:00 Test Item Value Reference Range Interpretation Comments WBC (test code = 1001) 9.2 K/UL RBC (test code = 1002) 4.81 M/UL HEMOGLOBIN (test code = 1003) 14.7 G/DL HEMATOCRIT (test code = 1004) 43.8 % MCV (test code = 1005) 91.1 fL MCH (test code = 1006) 30.6 PG MCHC (test code = 1007) 33.6 G/DL RDW (test code = 1038) 12.4 % NEUTROPHILS (test code = 1008) 68.7 % LYMPHOCYTES (test code = 1010) 21.3 % MONOCYTES (test code = 1011) 6.3 % EOSINOPHILS (test code = 1012) 2.6 % BASOPHILS (test code = 1013) 0.8 % IMMATURE GRANULOCYTES (test 0.3 % code = 1036) NUCLEATED RBCS (test code = 0.0 /100WBC'S 1065) PLATELET COUNT (test code = 237 K/UL 1015) ABSOLUTE NEUTROPHILS (test code 6.30 K/UL = 1066) ABSOLUTE LYMPHOCYTES (test code 1.95 K/UL = 1067) ABSOLUTE MONOCYTES (test code = 0.58 K/UL 1068) ABSOLUTE EOSINOPHILS (test code 0.24 K/UL = 1040) ABSOLUTE BASOPHILS (test code = 0.07 K/UL 1069) ABS IMMATURE GRANULOCYTES (test 0.03 K/UL code = 1020) ABS NUCLEATED RBCS (test code = 0.00 K/UL 28599) CBC W/AUTO [id number] 00:00:00 Test Item Value Reference Range Interpretation Comments WBC (test code = 1001) 9.2 K/UL RBC (test code = 1002) 4.81 M/UL HEMOGLOBIN (test code = 1003) 14.7 G/DL HEMATOCRIT (test code = 1004) 43.8 % MCV (test code = 1005) 91.1 fL MCH (test code = 1006) 30.6 PG MCHC (test code = 1007) 33.6 G/DL RDW (test code = 1038) 12.4 % NEUTROPHILS (test code = 1008) 68.7 % LYMPHOCYTES (test code = 1010) 21.3 % MONOCYTES (test code = 1011) 6.3 % EOSINOPHILS (test code = 1012) 2.6 % BASOPHILS (test code = 1013) 0.8 % IMMATURE GRANULOCYTES (test 0.3 % code = 1036) NUCLEATED RBCS (test code = 0.0 /100WBC'S 1065) PLATELET COUNT (test code = 237 K/UL 1015) ABSOLUTE NEUTROPHILS (test code 6.30 K/UL = 1066) ABSOLUTE LYMPHOCYTES (test code 1.95 K/UL = 1067) ABSOLUTE MONOCYTES (test code = 0.58 K/UL 1068) ABSOLUTE EOSINOPHILS (test code 0.24 K/UL = 1040) ABSOLUTE BASOPHILS (test code = 0.07 K/UL 1069) ABS IMMATURE GRANULOCYTES (test 0.03 K/UL code = 1020) ABS NUCLEATED RBCS (test code = 0.00 K/UL 89966) CBC W/AUTO [id number] 00:00:00 Test Item Value Reference Range Interpretation Comments WBC (test code = 1001) 9.2 K/UL RBC (test code = 1002) 4.81 M/UL HEMOGLOBIN (test code = 1003) 14.7 G/DL HEMATOCRIT (test code = 1004) 43.8 % MCV (test code = 1005) 91.1 fL MCH (test code = 1006) 30.6 PG MCHC (test code = 1007) 33.6 G/DL RDW (test code = 1038) 12.4 % NEUTROPHILS (test code = 1008) 68.7 % LYMPHOCYTES (test code = 1010) 21.3 % MONOCYTES (test code = 1011) 6.3 % EOSINOPHILS (test code = 1012) 2.6 % BASOPHILS (test code = 1013) 0.8 % IMMATURE GRANULOCYTES (test 0.3 % code = 1036) NUCLEATED RBCS (test code = 0.0 /100WBC'S 1065) PLATELET COUNT (test code = 237 K/UL 1015) ABSOLUTE NEUTROPHILS (test code 6.30 K/UL = 1066) ABSOLUTE LYMPHOCYTES (test code 1.95 K/UL = 1067) ABSOLUTE MONOCYTES (test code = 0.58 K/UL 1068) ABSOLUTE EOSINOPHILS (test code 0.24 K/UL = 1040) ABSOLUTE BASOPHILS (test code = 0.07 K/UL 1069) ABS IMMATURE GRANULOCYTES (test 0.03 K/UL code = 1020) ABS NUCLEATED RBCS (test code = 0.00 K/UL 98804) LIPID [id number] 00:00:00 Test Item Value Reference Range Interpretation Comments CHOLESTEROL (test code = 2210) 112 MG/DL TRIGLYCERIDES (test code = 2232) 140 MG/DL HDL CHOLESTEROL (test code = 2220) 34 MG/DL CALC LDL CHOL (test code = 2237) 56 MG/DL RISK RATIO LDL/HDL (test code = 1.65 RATIO 2238) LIPID [id number] 00:00:00 Test Item Value Reference Range Interpretation Comments CHOLESTEROL (test code = 2210) 112 MG/DL TRIGLYCERIDES (test code = 2232) 140 MG/DL HDL CHOLESTEROL (test code = 2220) 34 MG/DL CALC LDL CHOL (test code = 2237) 56 MG/DL RISK RATIO LDL/HDL (test code = 1.65 RATIO 2238) COMPREHENSIVE METABOLIC [id number] 00:00:00 Test Item Value Reference Range Interpretation Comments GLUCOSE (test code = 2217) 109 MG/DL BUN (test code = 2208) 11 MG/DL CREATININE (test code = 2214) 0.68 MG/DL eGFR AMER. (test code 116 ML/MIN/1.73 = 11097) eGFR NON- AMER. (test 100 ML/MIN/1.73 code = 73407) CALC BUN/CREAT (test code = 16 RATIO 2235) SODIUM (test code = 2231) 140 MEQ/L POTASSIUM (test code = 2228) 4.6 MEQ/L CHLORIDE (test code = 2215) 108 MEQ/L CARBON DIOXIDE (test code = 22 MEQ/L 220) CALCIUM (test code = 2209) 10.7 MG/DL PROTEIN, TOTAL (test code = 6.4 G/DL 2228) ALBUMIN (test code = 2201) 4.4 G/DL CALC GLOBULIN (test code = 2.0 G/DL 2240) CALC A/G RATIO (test code = 2.2 RATIO 2234) BILIRUBIN, TOTAL (test code = 0.3 MG/DL 2206) ALKALINE PHOSPHATASE (test 100 U/L code = 2204) AST (test code = 2218) 19 U/L ALT (test code = 2219) 29 U/L COMPREHENSIVE METABOLIC [id number] 00:00:00 Test Item Value Reference Range Interpretation Comments GLUCOSE (test code = 2217) 109 MG/DL BUN (test code = 2208) 11 MG/DL CREATININE (test code = 2214) 0.68 MG/DL eGFR AMER. (test code 116 ML/MIN/1.73 = 41593) eGFR NON- AMER. (test 100 ML/MIN/1.73 code = 11643) CALC BUN/CREAT (test code = 16 RATIO 2235) SODIUM (test code = 2231) 140 MEQ/L POTASSIUM (test code = 2228) 4.6 MEQ/L CHLORIDE (test code = 2215) 108 MEQ/L CARBON DIOXIDE (test code = 22 MEQ/L 220) CALCIUM (test code = 2209) 10.7 MG/DL PROTEIN, TOTAL (test code = 6.4 G/DL 2228) ALBUMIN (test code = 2201) 4.4 G/DL CALC GLOBULIN (test code = 2.0 G/DL 2240) CALC A/G RATIO (test code = 2.2 RATIO 2234) BILIRUBIN, TOTAL (test code = 0.3 MG/DL 2206) ALKALINE PHOSPHATASE (test 100 U/L code = 2204) AST (test code = 2218) 19 U/L ALT (test code = 2219) 29 U/L VITAMIN D, 25 [id number] 00:00:00 Test Item Value Reference Range Interpretation Comments VITAMIN D, 25 OH (test code = 4958) 20 NG/ML VITAMIN D, 25 [id number] 00:00:00 Test Item Value Reference Range Interpretation Comments VITAMIN D, 25 OH (test code = 4958) 20 NG/ML [id number] 00:00:00 Test Item Value Reference Range Interpretation Comments LITHIUM (test code = 2038) 0.38 MEQ/L [id number] 00:00:00 Test Item Value Reference Range Interpretation Comments LITHIUM (test code = 2038) 0.38 MEQ/L [id number] 00:00:00 Test Item Value Reference Range Interpretation Comments LITHIUM (test code = 2038) 0.38 MEQ/L THYROID II PROFILE (T3U, T4, T7, TSH)2020-10-05 00:00:00 Test Item Value Reference Range Interpretation Comments T-UPTAKE (test code = 2816) 30.2 % THYROX. BIND. CAPAC. (test code 1.1 = 85928) T4 (THYROXINE) (test code = 4.4 UG/DL 2819) CORRECTED T4 (FTI) (test code = 4.0 UG/DL 2820) TSH, THIRD GENERATION (test code 4.570 UIU/ML = 2821) THYROID II PROFILE (T3U, T4, T7, TSH)2020-10-05 00:00:00 Test Item Value Reference Range Interpretation Comments T-UPTAKE (test code = 2816) 30.2 % THYROX. BIND. CAPAC. (test code 1.1 = 17220) T4 (THYROXINE) (test code = 4.4 UG/DL 2819) CORRECTED T4 (FTI) (test code = 4.0 UG/DL 2820) TSH, THIRD GENERATION (test code 4.570 UIU/ML = 2821) CBC W/AUTO [id number] 00:00:00 Test Item Value Reference Range Interpretation Comments WBC (test code = 1001) 9.2 K/UL RBC (test code = 1002) 4.81 M/UL HEMOGLOBIN (test code = 1003) 14.7 G/DL HEMATOCRIT (test code = 1004) 43.8 % MCV (test code = 1005) 91.1 fL MCH (test code = 1006) 30.6 PG MCHC (test code = 1007) 33.6 G/DL RDW (test code = 1038) 12.4 % NEUTROPHILS (test code = 1008) 68.7 % LYMPHOCYTES (test code = 1010) 21.3 % MONOCYTES (test code = 1011) 6.3 % EOSINOPHILS (test code = 1012) 2.6 % BASOPHILS (test code = 1013) 0.8 % IMMATURE GRANULOCYTES (test 0.3 % code = 1036) NUCLEATED RBCS (test code = 0.0 /100WBC'S 1065) PLATELET COUNT (test code = 237 K/UL 1015) ABSOLUTE NEUTROPHILS (test code 6.30 K/UL = 1066) ABSOLUTE LYMPHOCYTES (test code 1.95 K/UL = 1067) ABSOLUTE MONOCYTES (test code = 0.58 K/UL 1068) ABSOLUTE EOSINOPHILS (test code 0.24 K/UL = 1040) ABSOLUTE BASOPHILS (test code = 0.07 K/UL 1069) ABS IMMATURE GRANULOCYTES (test 0.03 K/UL code = 1020) ABS NUCLEATED RBCS (test code = 0.00 K/UL 66064) CBC W/AUTO [id number] 00:00:00 Test Item Value Reference Range Interpretation Comments WBC (test code = 1001) 9.2 K/UL RBC (test code = 1002) 4.81 M/UL HEMOGLOBIN (test code = 1003) 14.7 G/DL HEMATOCRIT (test code = 1004) 43.8 % MCV (test code = 1005) 91.1 fL MCH (test code = 1006) 30.6 PG MCHC (test code = 1007) 33.6 G/DL RDW (test code = 1038) 12.4 % NEUTROPHILS (test code = 1008) 68.7 % LYMPHOCYTES (test code = 1010) 21.3 % MONOCYTES (test code = 1011) 6.3 % EOSINOPHILS (test code = 1012) 2.6 % BASOPHILS (test code = 1013) 0.8 % IMMATURE GRANULOCYTES (test 0.3 % code = 1036) NUCLEATED RBCS (test code = 0.0 /100WBC'S 1065) PLATELET COUNT (test code = 237 K/UL 1015) ABSOLUTE NEUTROPHILS (test code 6.30 K/UL = 1066) ABSOLUTE LYMPHOCYTES (test code 1.95 K/UL = 1067) ABSOLUTE MONOCYTES (test code = 0.58 K/UL 1068) ABSOLUTE EOSINOPHILS (test code 0.24 K/UL = 1040) ABSOLUTE BASOPHILS (test code = 0.07 K/UL 1069) ABS IMMATURE GRANULOCYTES (test 0.03 K/UL code = 1020) ABS NUCLEATED RBCS (test code = 0.00 K/UL 56741) CBC W/AUTO [id number] 00:00:00 Test Item Value Reference Range Interpretation Comments WBC (test code = 1001) 9.2 K/UL RBC (test code = 1002) 4.81 M/UL HEMOGLOBIN (test code = 1003) 14.7 G/DL HEMATOCRIT (test code = 1004) 43.8 % MCV (test code = 1005) 91.1 fL MCH (test code = 1006) 30.6 PG MCHC (test code = 1007) 33.6 G/DL RDW (test code = 1038) 12.4 % NEUTROPHILS (test code = 1008) 68.7 % LYMPHOCYTES (test code = 1010) 21.3 % MONOCYTES (test code = 1011) 6.3 % EOSINOPHILS (test code = 1012) 2.6 % BASOPHILS (test code = 1013) 0.8 % IMMATURE GRANULOCYTES (test 0.3 % code = 1036) NUCLEATED RBCS (test code = 0.0 /100WBC'S 1065) PLATELET COUNT (test code = 237 K/UL 1015) ABSOLUTE NEUTROPHILS (test code 6.30 K/UL = 1066) ABSOLUTE LYMPHOCYTES (test code 1.95 K/UL = 1067) ABSOLUTE MONOCYTES (test code = 0.58 K/UL 1068) ABSOLUTE EOSINOPHILS (test code 0.24 K/UL = 1040) ABSOLUTE BASOPHILS (test code = 0.07 K/UL 1069) ABS IMMATURE GRANULOCYTES (test 0.03 K/UL code = 1020) ABS NUCLEATED RBCS (test code = 0.00 K/UL 61480) LIPID [id number] 00:00:00 Test Item Value Reference Range Interpretation Comments CHOLESTEROL (test code = 2210) 112 MG/DL TRIGLYCERIDES (test code = 2232) 140 MG/DL HDL CHOLESTEROL (test code = 2220) 34 MG/DL CALC LDL CHOL (test code = 2237) 56 MG/DL RISK RATIO LDL/HDL (test code = 1.65 RATIO 2238) LIPID [id number] 00:00:00 Test Item Value Reference Range Interpretation Comments CHOLESTEROL (test code = 2210) 112 MG/DL TRIGLYCERIDES (test code = 2232) 140 MG/DL HDL CHOLESTEROL (test code = 2220) 34 MG/DL CALC LDL CHOL (test code = 2237) 56 MG/DL RISK RATIO LDL/HDL (test code = 1.65 RATIO 2238) COMPREHENSIVE METABOLIC [id number] 00:00:00 Test Item Value Reference Range Interpretation Comments GLUCOSE (test code = 2217) 109 MG/DL BUN (test code = 2208) 11 MG/DL CREATININE (test code = 2214) 0.68 MG/DL eGFR AMER. (test code 116 ML/MIN/1.73 = 45345) eGFR NON- AMER. (test 100 ML/MIN/1.73 code = 48679) CALC BUN/CREAT (test code = 16 RATIO 2235) SODIUM (test code = 2231) 140 MEQ/L POTASSIUM (test code = 2228) 4.6 MEQ/L CHLORIDE (test code = 2215) 108 MEQ/L CARBON DIOXIDE (test code = 22 MEQ/L 2205) CALCIUM (test code = 2209) 10.7 MG/DL PROTEIN, TOTAL (test code = 6.4 G/DL 2228) ALBUMIN (test code = 2201) 4.4 G/DL CALC GLOBULIN (test code = 2.0 G/DL 2239) CALC A/G RATIO (test code = 2.2 RATIO 2233) BILIRUBIN, TOTAL (test code = 0.3 MG/DL 2206) ALKALINE PHOSPHATASE (test 100 U/L code = 2204) AST (test code = 2218) 19 U/L ALT (test code = 2219) 29 U/L COMPREHENSIVE METABOLIC [id number] 00:00:00 Test Item Value Reference Range Interpretation Comments GLUCOSE (test code = 2217) 109 MG/DL BUN (test code = 2208) 11 MG/DL CREATININE (test code = 2214) 0.68 MG/DL eGFR AMER. (test code 116 ML/MIN/1.73 = 92377) eGFR NON- AMER. (test 100 ML/MIN/1.73 code = 17158) CALC BUN/CREAT (test code = 16 RATIO 2235) SODIUM (test code = 2231) 140 MEQ/L POTASSIUM (test code = 2228) 4.6 MEQ/L CHLORIDE (test code = 2215) 108 MEQ/L CARBON DIOXIDE (test code = 22 MEQ/L 2205) CALCIUM (test code = 9) 10.7 MG/DL PROTEIN, TOTAL (test code = 6.4 G/DL 2228) ALBUMIN (test code = 2201) 4.4 G/DL CALC GLOBULIN (test code = 2.0 G/DL 0) CALC A/G RATIO (test code = 2.2 RATIO 2233) BILIRUBIN, TOTAL (test code = 0.3 MG/DL 2206) ALKALINE PHOSPHATASE (test 100 U/L code = 2204) AST (test code = 2218) 19 U/L ALT (test code = 2219) 29 U/L VITAMIN D, 25 [id number] 00:00:00 Test Item Value Reference Range Interpretation Comments VITAMIN D, 25 OH (test code = 4958) 20 NG/ML VITAMIN D, 25 [id number] 00:00:00 Test Item Value Reference Range Interpretation Comments VITAMIN D, 25 OH (test code = 4958) 20 NG/ML [id number] 00:00:00 Test Item Value Reference Range Interpretation Comments LITHIUM (test code = 2038) 0.38 MEQ/L [id number] 00:00:00 Test Item Value Reference Range Interpretation Comments LITHIUM (test code = 2038) 0.38 MEQ/L [id number] 00:00:00 Test Item Value Reference Range Interpretation Comments LITHIUM (test code = 2038) 0.38 MEQ/L THYROID II PROFILE (T3U, T4, T7, TSH)2020-10-05 00:00:00 Test Item Value Reference Range Interpretation Comments T-UPTAKE (test code = 2816) 30.2 % THYROX. BIND. CAPAC. (test code 1.1 = 44247) T4 (THYROXINE) (test code = 4.4 UG/DL 2818) CORRECTED T4 (FTI) (test code = 4.0 UG/DL 0) TSH, THIRD GENERATION (test code 4.570 UIU/ML = 2821) THYROID II PROFILE (T3U, T4, T7, TSH)2020-10-05 00:00:00 Test Item Value Reference Range Interpretation Comments T-UPTAKE (test code = 2816) 30.2 % THYROX. BIND. CAPAC. (test code 1.1 = 02813) T4 (THYROXINE) (test code = 4.4 UG/DL 2819) CORRECTED T4 (FTI) (test code = 4.0 UG/DL 2820) TSH, THIRD GENERATION (test code 4.570 UIU/ML = 2821) CBC W/AUTO [id number] 00:00:00 Test Item Value Reference Range Interpretation Comments WBC (test code = 1001) 9.2 K/UL RBC (test code = 1002) 4.81 M/UL HEMOGLOBIN (test code = 1003) 14.7 G/DL HEMATOCRIT (test code = 1004) 43.8 % MCV (test code = 1005) 91.1 fL MCH (test code = 1006) 30.6 PG MCHC (test code = 1007) 33.6 G/DL RDW (test code = 1038) 12.4 % NEUTROPHILS (test code = 1008) 68.7 % LYMPHOCYTES (test code = 1010) 21.3 % MONOCYTES (test code = 1011) 6.3 % EOSINOPHILS (test code = 1012) 2.6 % BASOPHILS (test code = 1013) 0.8 % IMMATURE GRANULOCYTES (test 0.3 % code = 1036) NUCLEATED RBCS (test code = 0.0 /100WBC'S 1065) PLATELET COUNT (test code = 237 K/UL 1015) ABSOLUTE NEUTROPHILS (test code 6.30 K/UL = 1066) ABSOLUTE LYMPHOCYTES (test code 1.95 K/UL = 1067) ABSOLUTE MONOCYTES (test code = 0.58 K/UL 1068) ABSOLUTE EOSINOPHILS (test code 0.24 K/UL = 1040) ABSOLUTE BASOPHILS (test code = 0.07 K/UL 1069) ABS IMMATURE GRANULOCYTES (test 0.03 K/UL code = 1020) ABS NUCLEATED RBCS (test code = 0.00 K/UL 80661) CBC W/AUTO [id number] 00:00:00 Test Item Value Reference Range Interpretation Comments WBC (test code = 1001) 9.2 K/UL RBC (test code = 1002) 4.81 M/UL HEMOGLOBIN (test code = 1003) 14.7 G/DL HEMATOCRIT (test code = 1004) 43.8 % MCV (test code = 1005) 91.1 fL MCH (test code = 1006) 30.6 PG MCHC (test code = 1007) 33.6 G/DL RDW (test code = 1038) 12.4 % NEUTROPHILS (test code = 1008) 68.7 % LYMPHOCYTES (test code = 1010) 21.3 % MONOCYTES (test code = 1011) 6.3 % EOSINOPHILS (test code = 1012) 2.6 % BASOPHILS (test code = 1013) 0.8 % IMMATURE GRANULOCYTES (test 0.3 % code = 1036) NUCLEATED RBCS (test code = 0.0 /100WBC'S 1065) PLATELET COUNT (test code = 237 K/UL 1015) ABSOLUTE NEUTROPHILS (test code 6.30 K/UL = 1066) ABSOLUTE LYMPHOCYTES (test code 1.95 K/UL = 1067) ABSOLUTE MONOCYTES (test code = 0.58 K/UL 1068) ABSOLUTE EOSINOPHILS (test code 0.24 K/UL = 1040) ABSOLUTE BASOPHILS (test code = 0.07 K/UL 1069) ABS IMMATURE GRANULOCYTES (test 0.03 K/UL code = 1020) ABS NUCLEATED RBCS (test code = 0.00 K/UL 26648) CBC W/AUTO [id number] 00:00:00 Test Item Value Reference Range Interpretation Comments WBC (test code = 1001) 9.2 K/UL RBC (test code = 1002) 4.81 M/UL HEMOGLOBIN (test code = 1003) 14.7 G/DL HEMATOCRIT (test code = 1004) 43.8 % MCV (test code = 1005) 91.1 fL MCH (test code = 1006) 30.6 PG MCHC (test code = 1007) 33.6 G/DL RDW (test code = 1038) 12.4 % NEUTROPHILS (test code = 1008) 68.7 % LYMPHOCYTES (test code = 1010) 21.3 % MONOCYTES (test code = 1011) 6.3 % EOSINOPHILS (test code = 1012) 2.6 % BASOPHILS (test code = 1013) 0.8 % IMMATURE GRANULOCYTES (test 0.3 % code = 1036) NUCLEATED RBCS (test code = 0.0 /100WBC'S 1065) PLATELET COUNT (test code = 237 K/UL 1015) ABSOLUTE NEUTROPHILS (test code 6.30 K/UL = 1066) ABSOLUTE LYMPHOCYTES (test code 1.95 K/UL = 1067) ABSOLUTE MONOCYTES (test code = 0.58 K/UL 1068) ABSOLUTE EOSINOPHILS (test code 0.24 K/UL = 1040) ABSOLUTE BASOPHILS (test code = 0.07 K/UL 1069) ABS IMMATURE GRANULOCYTES (test 0.03 K/UL code = 1020) ABS NUCLEATED RBCS (test code = 0.00 K/UL 12702) LIPID [id number] 00:00:00 Test Item Value Reference Range Interpretation Comments CHOLESTEROL (test code = 2210) 112 MG/DL TRIGLYCERIDES (test code = 2232) 140 MG/DL HDL CHOLESTEROL (test code = 2220) 34 MG/DL CALC LDL CHOL (test code = 2237) 56 MG/DL RISK RATIO LDL/HDL (test code = 1.65 RATIO 2238) LIPID [id number] 00:00:00 Test Item Value Reference Range Interpretation Comments CHOLESTEROL (test code = 2210) 112 MG/DL TRIGLYCERIDES (test code = 2232) 140 MG/DL HDL CHOLESTEROL (test code = 2220) 34 MG/DL CALC LDL CHOL (test code = 2237) 56 MG/DL RISK RATIO LDL/HDL (test code = 1.65 RATIO 2238) COMPREHENSIVE METABOLIC [id number] 00:00:00 Test Item Value Reference Range Interpretation Comments GLUCOSE (test code = 2217) 109 MG/DL BUN (test code = 2208) 11 MG/DL CREATININE (test code = 2214) 0.68 MG/DL eGFR AMER. (test code 116 ML/MIN/1.73 = 63007) eGFR NON- AMER. (test 100 ML/MIN/1.73 code = 44636) CALC BUN/CREAT (test code = 16 RATIO 2235) SODIUM (test code = 2231) 140 MEQ/L POTASSIUM (test code = 2228) 4.6 MEQ/L CHLORIDE (test code = 2215) 108 MEQ/L CARBON DIOXIDE (test code = 22 MEQ/L 220) CALCIUM (test code = 2209) 10.7 MG/DL PROTEIN, TOTAL (test code = 6.4 G/DL 2228) ALBUMIN (test code = 2201) 4.4 G/DL CALC GLOBULIN (test code = 2.0 G/DL 2239) CALC A/G RATIO (test code = 2.2 RATIO 2234) BILIRUBIN, TOTAL (test code = 0.3 MG/DL 2206) ALKALINE PHOSPHATASE (test 100 U/L code = 2204) AST (test code = 2218) 19 U/L ALT (test code = 2219) 29 U/L COMPREHENSIVE METABOLIC [id number] 00:00:00 Test Item Value Reference Range Interpretation Comments GLUCOSE (test code = 2217) 109 MG/DL BUN (test code = 2208) 11 MG/DL CREATININE (test code = 2214) 0.68 MG/DL eGFR AMER. (test code 116 ML/MIN/1.73 = 96348) eGFR NON- AMER. (test 100 ML/MIN/1.73 code = 70634) CALC BUN/CREAT (test code = 16 RATIO 2235) SODIUM (test code = 2231) 140 MEQ/L POTASSIUM (test code = 2228) 4.6 MEQ/L CHLORIDE (test code = 2215) 108 MEQ/L CARBON DIOXIDE (test code = 22 MEQ/L 220) CALCIUM (test code = 2209) 10.7 MG/DL PROTEIN, TOTAL (test code = 6.4 G/DL 2228) ALBUMIN (test code = 2201) 4.4 G/DL CALC GLOBULIN (test code = 2.0 G/DL 2240) CALC A/G RATIO (test code = 2.2 RATIO 2234) BILIRUBIN, TOTAL (test code = 0.3 MG/DL 2206) ALKALINE PHOSPHATASE (test 100 U/L code = 2204) AST (test code = 2218) 19 U/L ALT (test code = 2219) 29 U/L VITAMIN D, 25 [id number] 00:00:00 Test Item Value Reference Range Interpretation Comments VITAMIN D, 25 OH (test code = 4958) 20 NG/ML VITAMIN D, 25 [id number] 00:00:00 Test Item Value Reference Range Interpretation Comments VITAMIN D, 25 OH (test code = 4958) 20 NG/ML [id number] 00:00:00 Test Item Value Reference Range Interpretation Comments LITHIUM (test code = 2038) 0.38 MEQ/L [id number] 00:00:00 Test Item Value Reference Range Interpretation Comments LITHIUM (test code = 2038) 0.38 MEQ/L [id number] 00:00:00 Test Item Value Reference Range Interpretation Comments LITHIUM (test code = 2038) 0.38 MEQ/L THYROID II PROFILE (T3U, T4, T7, TSH)2020-10-05 00:00:00 Test Item Value Reference Range Interpretation Comments T-UPTAKE (test code = 2817) 30.2 % THYROX. BIND. CAPAC. (test code 1.1 = 00211) T4 (THYROXINE) (test code = 4.4 UG/DL 2819) CORRECTED T4 (FTI) (test code = 4.0 UG/DL 2820) TSH, THIRD GENERATION (test code 4.570 UIU/ML = 2821) THYROID II PROFILE (T3U, T4, T7, TSH)2020-10-05 00:00:00 Test Item Value Reference Range Interpretation Comments T-UPTAKE (test code = 2817) 30.2 % THYROX. BIND. CAPAC. (test code 1.1 = 35449) T4 (THYROXINE) (test code = 4.4 UG/DL 2819) CORRECTED T4 (FTI) (test code = 4.0 UG/DL 2820) TSH, THIRD GENERATION (test code 4.570 UIU/ML = 2821) CBC W/AUTO [id number] 00:00:00 Test Item Value Reference Range Interpretation Comments WBC (test code = 1001) 9.2 K/UL RBC (test code = 1002) 4.81 M/UL HEMOGLOBIN (test code = 1003) 14.7 G/DL HEMATOCRIT (test code = 1004) 43.8 % MCV (test code = 1005) 91.1 fL MCH (test code = 1006) 30.6 PG MCHC (test code = 1007) 33.6 G/DL RDW (test code = 1038) 12.4 % NEUTROPHILS (test code = 1008) 68.7 % LYMPHOCYTES (test code = 1010) 21.3 % MONOCYTES (test code = 1011) 6.3 % EOSINOPHILS (test code = 1012) 2.6 % BASOPHILS (test code = 1013) 0.8 % IMMATURE GRANULOCYTES (test 0.3 % code = 1036) NUCLEATED RBCS (test code = 0.0 /100WBC'S 1065) PLATELET COUNT (test code = 237 K/UL 1015) ABSOLUTE NEUTROPHILS (test code 6.30 K/UL = 1066) ABSOLUTE LYMPHOCYTES (test code 1.95 K/UL = 1067) ABSOLUTE MONOCYTES (test code = 0.58 K/UL 1068) ABSOLUTE EOSINOPHILS (test code 0.24 K/UL = 1040) ABSOLUTE BASOPHILS (test code = 0.07 K/UL 1069) ABS IMMATURE GRANULOCYTES (test 0.03 K/UL code = 1020) ABS NUCLEATED RBCS (test code = 0.00 K/UL 40051) CBC W/AUTO [id number] 00:00:00 Test Item Value Reference Range Interpretation Comments WBC (test code = 1001) 9.2 K/UL RBC (test code = 1002) 4.81 M/UL HEMOGLOBIN (test code = 1003) 14.7 G/DL HEMATOCRIT (test code = 1004) 43.8 % MCV (test code = 1005) 91.1 fL MCH (test code = 1006) 30.6 PG MCHC (test code = 1007) 33.6 G/DL RDW (test code = 1038) 12.4 % NEUTROPHILS (test code = 1008) 68.7 % LYMPHOCYTES (test code = 1010) 21.3 % MONOCYTES (test code = 1011) 6.3 % EOSINOPHILS (test code = 1012) 2.6 % BASOPHILS (test code = 1013) 0.8 % IMMATURE GRANULOCYTES (test 0.3 % code = 1036) NUCLEATED RBCS (test code = 0.0 /100WBC'S 1065) PLATELET COUNT (test code = 237 K/UL 1015) ABSOLUTE NEUTROPHILS (test code 6.30 K/UL = 1066) ABSOLUTE LYMPHOCYTES (test code 1.95 K/UL = 1067) ABSOLUTE MONOCYTES (test code = 0.58 K/UL 1068) ABSOLUTE EOSINOPHILS (test code 0.24 K/UL = 1040) ABSOLUTE BASOPHILS (test code = 0.07 K/UL 1069) ABS IMMATURE GRANULOCYTES (test 0.03 K/UL code = 1020) ABS NUCLEATED RBCS (test code = 0.00 K/UL 54268) CBC W/AUTO [id number] 00:00:00 Test Item Value Reference Range Interpretation Comments WBC (test code = 1001) 9.2 K/UL RBC (test code = 1002) 4.81 M/UL HEMOGLOBIN (test code = 1003) 14.7 G/DL HEMATOCRIT (test code = 1004) 43.8 % MCV (test code = 1005) 91.1 fL MCH (test code = 1006) 30.6 PG MCHC (test code = 1007) 33.6 G/DL RDW (test code = 1038) 12.4 % NEUTROPHILS (test code = 1008) 68.7 % LYMPHOCYTES (test code = 1010) 21.3 % MONOCYTES (test code = 1011) 6.3 % EOSINOPHILS (test code = 1012) 2.6 % BASOPHILS (test code = 1013) 0.8 % IMMATURE GRANULOCYTES (test 0.3 % code = 1036) NUCLEATED RBCS (test code = 0.0 /100WBC'S 1065) PLATELET COUNT (test code = 237 K/UL 1015) ABSOLUTE NEUTROPHILS (test code 6.30 K/UL = 1066) ABSOLUTE LYMPHOCYTES (test code 1.95 K/UL = 1067) ABSOLUTE MONOCYTES (test code = 0.58 K/UL 1068) ABSOLUTE EOSINOPHILS (test code 0.24 K/UL = 1040) ABSOLUTE BASOPHILS (test code = 0.07 K/UL 1069) ABS IMMATURE GRANULOCYTES (test 0.03 K/UL code = 1020) ABS NUCLEATED RBCS (test code = 0.00 K/UL 80558) LIPID [id number] 00:00:00 Test Item Value Reference Range Interpretation Comments CHOLESTEROL (test code = 2210) 112 MG/DL TRIGLYCERIDES (test code = 2232) 140 MG/DL HDL CHOLESTEROL (test code = 2220) 34 MG/DL CALC LDL CHOL (test code = 2237) 56 MG/DL RISK RATIO LDL/HDL (test code = 1.65 RATIO 2238) LIPID [id number] 00:00:00 Test Item Value Reference Range Interpretation Comments CHOLESTEROL (test code = 2210) 112 MG/DL TRIGLYCERIDES (test code = 2232) 140 MG/DL HDL CHOLESTEROL (test code = 2220) 34 MG/DL CALC LDL CHOL (test code = 2237) 56 MG/DL RISK RATIO LDL/HDL (test code = 1.65 RATIO 2238) COMPREHENSIVE METABOLIC [id number] 00:00:00 Test Item Value Reference Range Interpretation Comments GLUCOSE (test code = 2217) 109 MG/DL BUN (test code = 2208) 11 MG/DL CREATININE (test code = 2214) 0.68 MG/DL eGFR AMER. (test code 116 ML/MIN/1.73 = 18702) eGFR NON- AMER. (test 100 ML/MIN/1.73 code = 39346) CALC BUN/CREAT (test code = 16 RATIO 2235) SODIUM (test code = 2231) 140 MEQ/L POTASSIUM (test code = 2228) 4.6 MEQ/L CHLORIDE (test code = 2215) 108 MEQ/L CARBON DIOXIDE (test code = 22 MEQ/L 2206) CALCIUM (test code = 2209) 10.7 MG/DL PROTEIN, TOTAL (test code = 6.4 G/DL 222) ALBUMIN (test code = 2201) 4.4 G/DL CALC GLOBULIN (test code = 2.0 G/DL 2240) CALC A/G RATIO (test code = 2.2 RATIO 2234) BILIRUBIN, TOTAL (test code = 0.3 MG/DL 2206) ALKALINE PHOSPHATASE (test 100 U/L code = 220) AST (test code = 2218) 19 U/L ALT (test code = 2219) 29 U/L COMPREHENSIVE METABOLIC [id number] 00:00:00 Test Item Value Reference Range Interpretation Comments GLUCOSE (test code = 2217) 109 MG/DL BUN (test code = 2208) 11 MG/DL CREATININE (test code = 2214) 0.68 MG/DL eGFR AMER. (test code 116 ML/MIN/1.73 = 16959) eGFR NON- AMER. (test 100 ML/MIN/1.73 code = 89167) CALC BUN/CREAT (test code = 16 RATIO 2235) SODIUM (test code = 2231) 140 MEQ/L POTASSIUM (test code = 2228) 4.6 MEQ/L CHLORIDE (test code = 2215) 108 MEQ/L CARBON DIOXIDE (test code = 22 MEQ/L 2206) CALCIUM (test code = 2209) 10.7 MG/DL PROTEIN, TOTAL (test code = 6.4 G/DL 222) ALBUMIN (test code = 2201) 4.4 G/DL CALC GLOBULIN (test code = 2.0 G/DL 2240) CALC A/G RATIO (test code = 2.2 RATIO 2234) BILIRUBIN, TOTAL (test code = 0.3 MG/DL 2206) ALKALINE PHOSPHATASE (test 100 U/L code = 2204) AST (test code = 2218) 19 U/L ALT (test code = 2219) 29 U/L VITAMIN D, 25 [id number] 00:00:00 Test Item Value Reference Range Interpretation Comments VITAMIN D, 25 OH (test code = 4958) 20 NG/ML VITAMIN D, 25 [id number] 00:00:00 Test Item Value Reference Range Interpretation Comments VITAMIN D, 25 OH (test code = 4958) 20 NG/ML [id number] 00:00:00 Test Item Value Reference Range Interpretation Comments LITHIUM (test code = 2038) 0.38 MEQ/L [id number] 00:00:00 Test Item Value Reference Range Interpretation Comments LITHIUM (test code = 2038) 0.38 MEQ/L [id number] 00:00:00 Test Item Value Reference Range Interpretation Comments LITHIUM (test code = 2038) 0.38 MEQ/L THYROID II PROFILE (T3U, T4, T7, TSH)2020-10-05 00:00:00 Test Item Value Reference Range Interpretation Comments T-UPTAKE (test code = 2816) 30.2 % THYROX. BIND. CAPAC. (test code 1.1 = 32016) T4 (THYROXINE) (test code = 4.4 UG/DL 2818) CORRECTED T4 (FTI) (test code = 4.0 UG/DL 2820) TSH, THIRD GENERATION (test code 4.570 UIU/ML = 2821) THYROID II PROFILE (T3U, T4, T7, TSH)2020-10-05 00:00:00 Test Item Value Reference Range Interpretation Comments T-UPTAKE (test code = 2816) 30.2 % THYROX. BIND. CAPAC. (test code 1.1 = 95737) T4 (THYROXINE) (test code = 4.4 UG/DL 2819) CORRECTED T4 (FTI) (test code = 4.0 UG/DL 2820) TSH, THIRD GENERATION (test code 4.570 UIU/ML = 2821) CBC W/AUTO [id number] 00:00:00 Test Item Value Reference Range Interpretation Comments WBC (test code = 1001) 9.2 K/UL RBC (test code = 1002) 4.81 M/UL HEMOGLOBIN (test code = 1003) 14.7 G/DL HEMATOCRIT (test code = 1004) 43.8 % MCV (test code = 1005) 91.1 fL MCH (test code = 1006) 30.6 PG MCHC (test code = 1007) 33.6 G/DL RDW (test code = 1038) 12.4 % NEUTROPHILS (test code = 1008) 68.7 % LYMPHOCYTES (test code = 1010) 21.3 % MONOCYTES (test code = 1011) 6.3 % EOSINOPHILS (test code = 1012) 2.6 % BASOPHILS (test code = 1013) 0.8 % IMMATURE GRANULOCYTES (test 0.3 % code = 1036) NUCLEATED RBCS (test code = 0.0 /100WBC'S 1065) PLATELET COUNT (test code = 237 K/UL 1015) ABSOLUTE NEUTROPHILS (test code 6.30 K/UL = 1066) ABSOLUTE LYMPHOCYTES (test code 1.95 K/UL = 1067) ABSOLUTE MONOCYTES (test code = 0.58 K/UL 1068) ABSOLUTE EOSINOPHILS (test code 0.24 K/UL = 1040) ABSOLUTE BASOPHILS (test code = 0.07 K/UL 1069) ABS IMMATURE GRANULOCYTES (test 0.03 K/UL code = 1020) ABS NUCLEATED RBCS (test code = 0.00 K/UL 74649) CBC W/AUTO [id number] 00:00:00 Test Item Value Reference Range Interpretation Comments WBC (test code = 1001) 9.2 K/UL RBC (test code = 1002) 4.81 M/UL HEMOGLOBIN (test code = 1003) 14.7 G/DL HEMATOCRIT (test code = 1004) 43.8 % MCV (test code = 1005) 91.1 fL MCH (test code = 1006) 30.6 PG MCHC (test code = 1007) 33.6 G/DL RDW (test code = 1038) 12.4 % NEUTROPHILS (test code = 1008) 68.7 % LYMPHOCYTES (test code = 1010) 21.3 % MONOCYTES (test code = 1011) 6.3 % EOSINOPHILS (test code = 1012) 2.6 % BASOPHILS (test code = 1013) 0.8 % IMMATURE GRANULOCYTES (test 0.3 % code = 1036) NUCLEATED RBCS (test code = 0.0 /100WBC'S 1065) PLATELET COUNT (test code = 237 K/UL 1015) ABSOLUTE NEUTROPHILS (test code 6.30 K/UL = 1066) ABSOLUTE LYMPHOCYTES (test code 1.95 K/UL = 1067) ABSOLUTE MONOCYTES (test code = 0.58 K/UL 1068) ABSOLUTE EOSINOPHILS (test code 0.24 K/UL = 1040) ABSOLUTE BASOPHILS (test code = 0.07 K/UL 1069) ABS IMMATURE GRANULOCYTES (test 0.03 K/UL code = 1020) ABS NUCLEATED RBCS (test code = 0.00 K/UL 80069) CBC W/AUTO [id number] 00:00:00 Test Item Value Reference Range Interpretation Comments WBC (test code = 1001) 9.2 K/UL RBC (test code = 1002) 4.81 M/UL HEMOGLOBIN (test code = 1003) 14.7 G/DL HEMATOCRIT (test code = 1004) 43.8 % MCV (test code = 1005) 91.1 fL MCH (test code = 1006) 30.6 PG MCHC (test code = 1007) 33.6 G/DL RDW (test code = 1038) 12.4 % NEUTROPHILS (test code = 1008) 68.7 % LYMPHOCYTES (test code = 1010) 21.3 % MONOCYTES (test code = 1011) 6.3 % EOSINOPHILS (test code = 1012) 2.6 % BASOPHILS (test code = 1013) 0.8 % IMMATURE GRANULOCYTES (test 0.3 % code = 1036) NUCLEATED RBCS (test code = 0.0 /100WBC'S 1065) PLATELET COUNT (test code = 237 K/UL 1015) ABSOLUTE NEUTROPHILS (test code 6.30 K/UL = 1066) ABSOLUTE LYMPHOCYTES (test code 1.95 K/UL = 1067) ABSOLUTE MONOCYTES (test code = 0.58 K/UL 1068) ABSOLUTE EOSINOPHILS (test code 0.24 K/UL = 1040) ABSOLUTE BASOPHILS (test code = 0.07 K/UL 1069) ABS IMMATURE GRANULOCYTES (test 0.03 K/UL code = 1020) ABS NUCLEATED RBCS (test code = 0.00 K/UL 39306) CBC W/AUTO [id number] 00:00:00 Test Item Value Reference Range Interpretation Comments WBC (test code = 1001) 9.2 K/UL RBC (test code = 1002) 4.81 M/UL HEMOGLOBIN (test code = 1003) 14.7 G/DL HEMATOCRIT (test code = 1004) 43.8 % MCV (test code = 1005) 91.1 fL MCH (test code = 1006) 30.6 PG MCHC (test code = 1007) 33.6 G/DL RDW (test code = 1038) 12.4 % NEUTROPHILS (test code = 1008) 68.7 % LYMPHOCYTES (test code = 1010) 21.3 % MONOCYTES (test code = 1011) 6.3 % EOSINOPHILS (test code = 1012) 2.6 % BASOPHILS (test code = 1013) 0.8 % IMMATURE GRANULOCYTES (test 0.3 % code = 1036) NUCLEATED RBCS (test code = 0.0 /100WBC'S 1065) PLATELET COUNT (test code = 237 K/UL 1015) ABSOLUTE NEUTROPHILS (test code 6.30 K/UL = 1066) ABSOLUTE LYMPHOCYTES (test code 1.95 K/UL = 1067) ABSOLUTE MONOCYTES (test code = 0.58 K/UL 1068) ABSOLUTE EOSINOPHILS (test code 0.24 K/UL = 1040) ABSOLUTE BASOPHILS (test code = 0.07 K/UL 1069) ABS IMMATURE GRANULOCYTES (test 0.03 K/UL code = 1020) ABS NUCLEATED RBCS (test code = 0.00 K/UL 81791) CBC W/AUTO [id number] 00:00:00 Test Item Value Reference Range Interpretation Comments WBC (test code = 1001) 9.2 K/UL RBC (test code = 1002) 4.81 M/UL HEMOGLOBIN (test code = 1003) 14.7 G/DL HEMATOCRIT (test code = 1004) 43.8 % MCV (test code = 1005) 91.1 fL MCH (test code = 1006) 30.6 PG MCHC (test code = 1007) 33.6 G/DL RDW (test code = 1038) 12.4 % NEUTROPHILS (test code = 1008) 68.7 % LYMPHOCYTES (test code = 1010) 21.3 % MONOCYTES (test code = 1011) 6.3 % EOSINOPHILS (test code = 1012) 2.6 % BASOPHILS (test code = 1013) 0.8 % IMMATURE GRANULOCYTES (test 0.3 % code = 1036) NUCLEATED RBCS (test code = 0.0 /100WBC'S 1065) PLATELET COUNT (test code = 237 K/UL 1015) ABSOLUTE NEUTROPHILS (test code 6.30 K/UL = 1066) ABSOLUTE LYMPHOCYTES (test code 1.95 K/UL = 1067) ABSOLUTE MONOCYTES (test code = 0.58 K/UL 1068) ABSOLUTE EOSINOPHILS (test code 0.24 K/UL = 1040) ABSOLUTE BASOPHILS (test code = 0.07 K/UL 1069) ABS IMMATURE GRANULOCYTES (test 0.03 K/UL code = 1020) ABS NUCLEATED RBCS (test code = 0.00 K/UL 71139) LIPID [id number] 00:00:00 Test Item Value Reference Range Interpretation Comments CHOLESTEROL (test code = 2210) 112 MG/DL TRIGLYCERIDES (test code = 2232) 140 MG/DL HDL CHOLESTEROL (test code = 2220) 34 MG/DL CALC LDL CHOL (test code = 2237) 56 MG/DL RISK RATIO LDL/HDL (test code = 1.65 RATIO 2238) LIPID [id number] 00:00:00 Test Item Value Reference Range Interpretation Comments CHOLESTEROL (test code = 2210) 112 MG/DL TRIGLYCERIDES (test code = 2232) 140 MG/DL HDL CHOLESTEROL (test code = 2220) 34 MG/DL CALC LDL CHOL (test code = 2237) 56 MG/DL RISK RATIO LDL/HDL (test code = 1.65 RATIO 2238) COMPREHENSIVE METABOLIC [id number] 00:00:00 Test Item Value Reference Range Interpretation Comments GLUCOSE (test code = 2217) 109 MG/DL BUN (test code = 2208) 11 MG/DL CREATININE (test code = 2214) 0.68 MG/DL eGFR AMER. (test code 116 ML/MIN/1.73 = 09335) eGFR NON- AMER. (test 100 ML/MIN/1.73 code = 84660) CALC BUN/CREAT (test code = 16 RATIO 2235) SODIUM (test code = 2231) 140 MEQ/L POTASSIUM (test code = 2228) 4.6 MEQ/L CHLORIDE (test code = 2215) 108 MEQ/L CARBON DIOXIDE (test code = 22 MEQ/L 220) CALCIUM (test code = 2209) 10.7 MG/DL PROTEIN, TOTAL (test code = 6.4 G/DL 2228) ALBUMIN (test code = 2201) 4.4 G/DL CALC GLOBULIN (test code = 2.0 G/DL 2240) CALC A/G RATIO (test code = 2.2 RATIO 2234) BILIRUBIN, TOTAL (test code = 0.3 MG/DL 2207) ALKALINE PHOSPHATASE (test 100 U/L code = 2204) AST (test code = 2218) 19 U/L ALT (test code = 2219) 29 U/L COMPREHENSIVE METABOLIC [id number] 00:00:00 Test Item Value Reference Range Interpretation Comments GLUCOSE (test code = 2217) 109 MG/DL BUN (test code = 2208) 11 MG/DL CREATININE (test code = 2214) 0.68 MG/DL eGFR AMER. (test code 116 ML/MIN/1.73 = 71662) eGFR NON- AMER. (test 100 ML/MIN/1.73 code = 95475) CALC BUN/CREAT (test code = 16 RATIO 2235) SODIUM (test code = 2231) 140 MEQ/L POTASSIUM (test code = 2228) 4.6 MEQ/L CHLORIDE (test code = 2215) 108 MEQ/L CARBON DIOXIDE (test code = 22 MEQ/L 2205) CALCIUM (test code = 2209) 10.7 MG/DL PROTEIN, TOTAL (test code = 6.4 G/DL 2228) ALBUMIN (test code = 2201) 4.4 G/DL CALC GLOBULIN (test code = 2.0 G/DL 2240) CALC A/G RATIO (test code = 2.2 RATIO 2234) BILIRUBIN, TOTAL (test code = 0.3 MG/DL 2207) ALKALINE PHOSPHATASE (test 100 U/L code = 2204) AST (test code = 2218) 19 U/L ALT (test code = 2219) 29 U/L LIPID [id number] 00:00:00 Test Item Value Reference Range Interpretation Comments CHOLESTEROL (test code = 2210) 112 MG/DL TRIGLYCERIDES (test code = 2232) 140 MG/DL HDL CHOLESTEROL (test code = 2220) 34 MG/DL CALC LDL CHOL (test code = 2237) 56 MG/DL RISK RATIO LDL/HDL (test code = 1.65 RATIO 2238) VITAMIN D, 25 [id number] 00:00:00 Test Item Value Reference Range Interpretation Comments VITAMIN D, 25 OH (test code = 4958) 20 NG/ML VITAMIN D, 25 [id number] 00:00:00 Test Item Value Reference Range Interpretation Comments VITAMIN D, 25 OH (test code = 4958) 20 NG/ML COMPREHENSIVE METABOLIC [id number] 00:00:00 Test Item Value Reference Range Interpretation Comments GLUCOSE (test code = 2217) 109 MG/DL BUN (test code = 2208) 11 MG/DL CREATININE (test code = 2214) 0.68 MG/DL eGFR AMER. (test code 116 ML/MIN/1.73 = 41631) eGFR NON- AMER. (test 100 ML/MIN/1.73 code = 33149) CALC BUN/CREAT (test code = 16 RATIO 2235) SODIUM (test code = 2231) 140 MEQ/L POTASSIUM (test code = 2228) 4.6 MEQ/L CHLORIDE (test code = 2215) 108 MEQ/L CARBON DIOXIDE (test code = 22 MEQ/L 220) CALCIUM (test code = 2209) 10.7 MG/DL PROTEIN, TOTAL (test code = 6.4 G/DL 2228) ALBUMIN (test code = 2201) 4.4 G/DL CALC GLOBULIN (test code = 2.0 G/DL 2240) CALC A/G RATIO (test code = 2.2 RATIO 2234) BILIRUBIN, TOTAL (test code = 0.3 MG/DL 2206) ALKALINE PHOSPHATASE (test 100 U/L code = 2204) AST (test code = 2218) 19 U/L ALT (test code = 2219) 29 U/L [id number] 00:00:00 Test Item Value Reference Range Interpretation Comments LITHIUM (test code = 2039) 0.38 MEQ/L [id number] 00:00:00 Test Item Value Reference Range Interpretation Comments LITHIUM (test code = 2039) 0.38 MEQ/L [id number] 00:00:00 Test Item Value Reference Range Interpretation Comments LITHIUM (test code = 2039) 0.38 MEQ/L [id number] 00:00:00 Test Item Value Reference Range Interpretation Comments LITHIUM (test code = 2039) 0.31 MEQ/L VITAMIN D, 25 [id number] 00:00:00 Test Item Value Reference Range Interpretation Comments VITAMIN D, 25 OH (test code = 4958) 25 NG/ML VITAMIN D, 25 [id number] 00:00:00 Test Item Value Reference Range Interpretation Comments VITAMIN D, 25 OH (test code = 4958) 25 NG/ML [id number] 00:00:00 Test Item Value Reference Range Interpretation Comments LITHIUM (test code = 203) 0.31 MEQ/L [id number] 00:00:00 Test Item Value Reference Range Interpretation Comments LITHIUM (test code = 2038) 0.31 MEQ/L [id number] 00:00:00 Test Item Value Reference Range Interpretation Comments TSH, THIRD GENERATION (test code 2.180 UIU/ML = 2821) [id number] 00:00:00 Test Item Value Reference Range Interpretation Comments TSH, THIRD GENERATION (test code 2.180 UIU/ML = 2821) [id number] 00:00:00 Test Item Value Reference Range Interpretation Comments TSH, THIRD GENERATION (test code 2.180 UIU/ML = 2821) [id number] 00:00:00 Test Item Value Reference Range Interpretation Comments LITHIUM (test code = 2038) 0.31 MEQ/L VITAMIN D, 25 [id number] 00:00:00 Test Item Value Reference Range Interpretation Comments VITAMIN D, 25 OH (test code = 4958) 25 NG/ML VITAMIN D, 25 [id number] 00:00:00 Test Item Value Reference Range Interpretation Comments VITAMIN D, 25 OH (test code = 4958) 25 NG/ML [id number] 00:00:00 Test Item Value Reference Range Interpretation Comments LITHIUM (test code = 203) 0.31 MEQ/L [id number] 00:00:00 Test Item Value Reference Range Interpretation Comments LITHIUM (test code = 2039) 0.31 MEQ/L [id number] 00:00:00 Test Item Value Reference Range Interpretation Comments TSH, THIRD GENERATION (test code 2.180 UIU/ML = 2821) [id number] 00:00:00 Test Item Value Reference Range Interpretation Comments TSH, THIRD GENERATION (test code 2.180 UIU/ML = 2821) [id number] 00:00:00 Test Item Value Reference Range Interpretation Comments TSH, THIRD GENERATION (test code 2.180 UIU/ML = 2821) [id number] 00:00:00 Test Item Value Reference Range Interpretation Comments LITHIUM (test code = 2038) 0.31 MEQ/L VITAMIN D, 25 [id number] 00:00:00 Test Item Value Reference Range Interpretation Comments VITAMIN D, 25 OH (test code = 4958) 25 NG/ML VITAMIN D, 25 [id number] 00:00:00 Test Item Value Reference Range Interpretation Comments VITAMIN D, 25 OH (test code = 4958) 25 NG/ML [id number] 00:00:00 Test Item Value Reference Range Interpretation Comments LITHIUM (test code = 2038) 0.31 MEQ/L [id number] 00:00:00 Test Item Value Reference Range Interpretation Comments LITHIUM (test code = 2038) 0.31 MEQ/L [id number] 00:00:00 Test Item Value Reference Range Interpretation Comments TSH, THIRD GENERATION (test code 2.180 UIU/ML = 2821) [id number] 00:00:00 Test Item Value Reference Range Interpretation Comments TSH, THIRD GENERATION (test code 2.180 UIU/ML = 2821) [id number] 00:00:00 Test Item Value Reference Range Interpretation Comments TSH, THIRD GENERATION (test code 2.180 UIU/ML = 2821) [id number] 00:00:00 Test Item Value Reference Range Interpretation Comments LITHIUM (test code = 2038) 0.31 MEQ/L VITAMIN D, 25 [id number] 00:00:00 Test Item Value Reference Range Interpretation Comments VITAMIN D, 25 OH (test code = 4958) 25 NG/ML VITAMIN D, 25 [id number] 00:00:00 Test Item Value Reference Range Interpretation Comments VITAMIN D, 25 OH (test code = 4958) 25 NG/ML [id number] 00:00:00 Test Item Value Reference Range Interpretation Comments LITHIUM (test code = 2038) 0.31 MEQ/L [id number] 00:00:00 Test Item Value Reference Range Interpretation Comments LITHIUM (test code = 2038) 0.31 MEQ/L [id number] 00:00:00 Test Item Value Reference Range Interpretation Comments TSH, THIRD GENERATION (test code 2.180 UIU/ML = 2821) [id number] 00:00:00 Test Item Value Reference Range Interpretation Comments TSH, THIRD GENERATION (test code 2.180 UIU/ML = 2821) [id number] 00:00:00 Test Item Value Reference Range Interpretation Comments TSH, THIRD GENERATION (test code 2.180 UIU/ML = 2821) [id number] 00:00:00 Test Item Value Reference Range Interpretation Comments LITHIUM (test code = 2038) 0.31 MEQ/L VITAMIN D, 25 [id number] 00:00:00 Test Item Value Reference Range Interpretation Comments VITAMIN D, 25 OH (test code = 4958) 25 NG/ML VITAMIN D, 25 [id number] 00:00:00 Test Item Value Reference Range Interpretation Comments VITAMIN D, 25 OH (test code = 4958) 25 NG/ML [id number] 00:00:00 Test Item Value Reference Range Interpretation Comments LITHIUM (test code = 2038) 0.31 MEQ/L [id number] 00:00:00 Test Item Value Reference Range Interpretation Comments LITHIUM (test code = 2038) 0.31 MEQ/L [id number] 00:00:00 Test Item Value Reference Range Interpretation Comments TSH, THIRD GENERATION (test code 2.180 UIU/ML = 2821) [id number] 00:00:00 Test Item Value Reference Range Interpretation Comments TSH, THIRD GENERATION (test code 2.180 UIU/ML = 2821) [id number] 00:00:00 Test Item Value Reference Range Interpretation Comments TSH, THIRD GENERATION (test code 2.180 UIU/ML = 2821) [id number] 00:00:00 Test Item Value Reference Range Interpretation Comments LITHIUM (test code = 2038) 0.31 MEQ/L VITAMIN D, 25 [id number] 00:00:00 Test Item Value Reference Range Interpretation Comments VITAMIN D, 25 OH (test code = 4958) 25 NG/ML VITAMIN D, 25 [id number] 00:00:00 Test Item Value Reference Range Interpretation Comments VITAMIN D, 25 OH (test code = 4958) 25 NG/ML [id number] 00:00:00 Test Item Value Reference Range Interpretation Comments LITHIUM (test code = 203) 0.31 MEQ/L [id number] 00:00:00 Test Item Value Reference Range Interpretation Comments LITHIUM (test code = 203) 0.31 MEQ/L [id number] 00:00:00 Test Item Value Reference Range Interpretation Comments TSH, THIRD GENERATION (test code 2.180 UIU/ML = 2821) [id number] 00:00:00 Test Item Value Reference Range Interpretation Comments TSH, THIRD GENERATION (test code 2.180 UIU/ML = 2821) [id number] 00:00:00 Test Item Value Reference Range Interpretation Comments TSH, THIRD GENERATION (test code 2.180 UIU/ML = 2821) [id number] 00:00:00 Test Item Value Reference Range Interpretation Comments LITHIUM (test code = 2038) 0.31 MEQ/L [id number] 00:00:00 Test Item Value Reference Range Interpretation Comments LITHIUM (test code = 2038) 0.31 MEQ/L VITAMIN D, 25 [id number] 00:00:00 Test Item Value Reference Range Interpretation Comments VITAMIN D, 25 OH (test code = 4958) 25 NG/ML VITAMIN D, 25 [id number] 00:00:00 Test Item Value Reference Range Interpretation Comments VITAMIN D, 25 OH (test code = 4958) 25 NG/ML [id number] 00:00:00 Test Item Value Reference Range Interpretation Comments LITHIUM (test code = 2038) 0.31 MEQ/L [id number] 00:00:00 Test Item Value Reference Range Interpretation Comments TSH, THIRD GENERATION (test code 2.180 UIU/ML = 2821) [id number] 00:00:00 Test Item Value Reference Range Interpretation Comments TSH, THIRD GENERATION (test code 2.180 UIU/ML = 2821) [id number] 00:00:00 Test Item Value Reference Range Interpretation Comments TSH, THIRD GENERATION (test code 2.180 UIU/ML = 2821) [id number] 00:00:00 Test Item Value Reference Range Interpretation Comments LITHIUM (test code = 2038) 0.31 MEQ/L VITAMIN D, 25 [id number] 00:00:00 Test Item Value Reference Range Interpretation Comments VITAMIN D, 25 OH (test code = 4958) 25 NG/ML VITAMIN D, 25 [id number] 00:00:00 Test Item Value Reference Range Interpretation Comments VITAMIN D, 25 OH (test code = 4958) 25 NG/ML [id number] 00:00:00 Test Item Value Reference Range Interpretation Comments LITHIUM (test code = 2038) 0.31 MEQ/L [id number] 00:00:00 Test Item Value Reference Range Interpretation Comments LITHIUM (test code = 2038) 0.31 MEQ/L [id number] 00:00:00 Test Item Value Reference Range Interpretation Comments TSH, THIRD GENERATION (test code 2.180 UIU/ML = 2821) [id number] 00:00:00 Test Item Value Reference Range Interpretation Comments TSH, THIRD GENERATION (test code 2.180 UIU/ML = 2821) [id number] 00:00:00 Test Item Value Reference Range Interpretation Comments TSH, THIRD GENERATION (test code 2.180 UIU/ML = 2821) [id number] 00:00:00 Test Item Value Reference Range Interpretation Comments LITHIUM (test code = 2038) 0.31 MEQ/L VITAMIN D, 25 [id number] 00:00:00 Test Item Value Reference Range Interpretation Comments VITAMIN D, 25 OH (test code = 4958) 25 NG/ML [id number] 00:00:00 Test Item Value Reference Range Interpretation Comments LITHIUM (test code = 2038) 0.31 MEQ/L VITAMIN D, 25 [id number] 00:00:00 Test Item Value Reference Range Interpretation Comments VITAMIN D, 25 OH (test code = 4958) 25 NG/ML [id number] 00:00:00 Test Item Value Reference Range Interpretation Comments LITHIUM (test code = 2038) 0.31 MEQ/L [id number] 00:00:00 Test Item Value Reference Range Interpretation Comments TSH, THIRD GENERATION (test code 2.180 UIU/ML = 2821) [id number] 00:00:00 Test Item Value Reference Range Interpretation Comments TSH, THIRD GENERATION (test code 2.180 UIU/ML = 2821) [id number] 00:00:00 Test Item Value Reference Range Interpretation Comments TSH, THIRD GENERATION (test code 2.180 UIU/ML = 2821) [id number] 00:00:00 Test Item Value Reference Range Interpretation Comments LITHIUM (test code = 2038) 0.31 MEQ/L [id number] 00:00:00 Test Item Value Reference Range Interpretation Comments LITHIUM (test code = 2038) 0.31 MEQ/L VITAMIN D, 25 [id number] 00:00:00 Test Item Value Reference Range Interpretation Comments VITAMIN D, 25 OH (test code = 4958) 25 NG/ML VITAMIN D, 25 [id number] 00:00:00 Test Item Value Reference Range Interpretation Comments VITAMIN D, 25 OH (test code = 4958) 25 NG/ML [id number] 00:00:00 Test Item Value Reference Range Interpretation Comments LITHIUM (test code = 2038) 0.31 MEQ/L [id number] 00:00:00 Test Item Value Reference Range Interpretation Comments TSH, THIRD GENERATION (test code 2.180 UIU/ML = 2821) [id number] 00:00:00 Test Item Value Reference Range Interpretation Comments LITHIUM (test code = 2038) 0.31 MEQ/L VITAMIN D, 25 [id number] 00:00:00 Test Item Value Reference Range Interpretation Comments VITAMIN D, 25 OH (test code = 4958) 25 NG/ML [id number] 00:00:00 Test Item Value Reference Range Interpretation Comments LITHIUM (test code = 2038) 0.31 MEQ/L [id number] 00:00:00 Test Item Value Reference Range Interpretation Comments TSH, THIRD GENERATION (test code 2.180 UIU/ML = 2821) [id number] 00:00:00 Test Item Value Reference Range Interpretation Comments TSH, THIRD GENERATION (test code 2.180 UIU/ML = 2821) [id number] 00:00:00 Test Item Value Reference Range Interpretation Comments TSH, THIRD GENERATION (test code 2.180 UIU/ML = 2821) [id number] 00:00:00 Test Item Value Reference Range Interpretation Comments TSH, THIRD GENERATION (test code 2.180 UIU/ML = 2821) [id number] 00:00:00 Test Item Value Reference Range Interpretation Comments LITHIUM (test code = 2038) 0.27 MEQ/L [id number] 00:00:00 Test Item Value Reference Range Interpretation Comments LITHIUM (test code = 203) 0.27 MEQ/L [id number] 00:00:00 Test Item Value Reference Range Interpretation Comments LITHIUM (test code = 203) 0.27 MEQ/L [id number] 00:00:00 Test Item Value Reference Range Interpretation Comments LITHIUM (test code = 203) 0.27 MEQ/L [id number] 00:00:00 Test Item Value Reference Range Interpretation Comments LITHIUM (test code = 203) 0.27 MEQ/L [id number] 00:00:00 Test Item Value Reference Range Interpretation Comments LITHIUM (test code = 203) 0.27 MEQ/L [id number] 00:00:00 Test Item Value Reference Range Interpretation Comments LITHIUM (test code = 203) 0.27 MEQ/L [id number] 00:00:00 Test Item Value Reference Range Interpretation Comments LITHIUM (test code = 2038) 0.27 MEQ/L [id number] 00:00:00 Test Item Value Reference Range Interpretation Comments LITHIUM (test code = 203) 0.27 MEQ/L [id number] 00:00:00 Test Item Value Reference Range Interpretation Comments LITHIUM (test code = 203) 0.27 MEQ/L [id number] 00:00:00 Test Item Value Reference Range Interpretation Comments LITHIUM (test code = 203) 0.27 MEQ/L [id number] 00:00:00 Test Item Value Reference Range Interpretation Comments LITHIUM (test code = 203) 0.27 MEQ/L [id number] 00:00:00 Test Item Value Reference Range Interpretation Comments LITHIUM (test code = 203) 0.27 MEQ/L [id number] 00:00:00 Test Item Value Reference Range Interpretation Comments LITHIUM (test code = 203) 0.27 MEQ/L [id number] 00:00:00 Test Item Value Reference Range Interpretation Comments LITHIUM (test code = 203) 0.27 MEQ/L [id number] 00:00:00 Test Item Value Reference Range Interpretation Comments LITHIUM (test code = 203) 0.27 MEQ/L [id number] 00:00:00 Test Item Value Reference Range Interpretation Comments LITHIUM (test code = 203) 0.27 MEQ/L [id number] 00:00:00 Test Item Value Reference Range Interpretation Comments LITHIUM (test code = 203) 0.27 MEQ/L [id number] 00:00:00 Test Item Value Reference Range Interpretation Comments LITHIUM (test code = 203) 0.27 MEQ/L [id number] 00:00:00 Test Item Value Reference Range Interpretation Comments LITHIUM (test code = 203) 0.27 MEQ/L [id number] 00:00:00 Test Item Value Reference Range Interpretation Comments LITHIUM (test code = 2038) 0.27 MEQ/L [id number] 00:00:00 Test Item Value Reference Range Interpretation Comments LITHIUM (test code = 203) 0.27 MEQ/L [id number] 00:00:00 Test Item Value Reference Range Interpretation Comments LITHIUM (test code = 2038) 0.27 MEQ/L [id number] 00:00:00 Test Item Value Reference Range Interpretation Comments LITHIUM (test code = 203) 0.27 MEQ/L [id number] 00:00:00 Test Item Value Reference Range Interpretation Comments LITHIUM (test code = 203) 0.27 MEQ/L [id number] 00:00:00 Test Item Value Reference Range Interpretation Comments LITHIUM (test code = 203) 0.27 MEQ/L [id number] 00:00:00 Test Item Value Reference Range Interpretation Comments LITHIUM (test code = 203) 0.27 MEQ/L [id number] 00:00:00 Test Item Value Reference Range Interpretation Comments LITHIUM (test code = 203) 0.27 MEQ/L [id number] 00:00:00 Test Item Value Reference Range Interpretation Comments LITHIUM (test code = 203) 0.27 MEQ/L [id number] 00:00:00 Test Item Value Reference Range Interpretation Comments LITHIUM (test code = 2039) 0.27 MEQ/L [id number] 00:00:00 Test Item Value Reference Range Interpretation Comments LITHIUM (test code = 2039) 0.27 MEQ/L [id number] 00:00:00 Test Item Value Reference Range Interpretation Comments LITHIUM (test code = 2039) 0.27 MEQ/L VITAMIN D, 25 [id number] 00:00:00 Test Item Value Reference Range Interpretation Comments VITAMIN D, 25 OH (test code = 4958) 18 NG/ML [id number] 00:00:00 Test Item Value Reference Range Interpretation Comments TSH, THIRD GENERATION (test code 3.230 UIU/ML = 2821) [id number] 00:00:00 Test Item Value Reference Range Interpretation Comments MAGNESIUM (test code = 2226) 2.2 MG/DL [id number] 00:00:00 Test Item Value Reference Range Interpretation Comments MAGNESIUM (test code = 2226) 2.2 MG/DL VITAMIN [id number] 00:00:00 Test Item Value Reference Range Interpretation Comments VITAMIN B-12 (test code = 2840) 345 PG/ML VITAMIN [id number] 00:00:00 Test Item Value Reference Range Interpretation Comments VITAMIN B-12 (test code = 2840) 345 PG/ML VITAMIN D, 25 [id number] 00:00:00 Test Item Value Reference Range Interpretation Comments VITAMIN D, 25 OH (test code = 4958) 18 NG/ML COMPREHENSIVE METABOLIC [id number] 00:00:00 Test Item Value Reference Range Interpretation Comments GLUCOSE (test code = 2217) 92 MG/DL BUN (test code = 2208) 8 MG/DL CREATININE (test code = 2214) 0.78 MG/DL eGFR AMER. (test code 101 ML/MIN/1.73 = 86387) eGFR NON- AMER. (test 87 ML/MIN/1.73 code = 53180) CALC BUN/CREAT (test code = 10 RATIO 2235) SODIUM (test code = 2231) 136 MEQ/L POTASSIUM (test code = 2228) 4.9 MEQ/L CHLORIDE (test code = 2215) 100 MEQ/L CARBON DIOXIDE (test code = 26 MEQ/L 2205) CALCIUM (test code = 2209) 11.0 MG/DL PROTEIN, TOTAL (test code = 7.0 G/DL 2228) ALBUMIN (test code = 220) 4.3 G/DL CALC GLOBULIN (test code = 2.7 G/DL 2240) CALC A/G RATIO (test code = 1.6 RATIO 2234) BILIRUBIN, TOTAL (test code = 0.9 MG/DL 220) ALKALINE PHOSPHATASE (test 104 U/L code = 2204) AST (test code = 2218) 37 U/L ALT (test code = 2219) 60 U/L COMPREHENSIVE METABOLIC [id number] 00:00:00 Test Item Value Reference Range Interpretation Comments GLUCOSE (test code = 2217) 92 MG/DL BUN (test code = 2208) 8 MG/DL CREATININE (test code = 2214) 0.78 MG/DL eGFR AMER. (test code 101 ML/MIN/1.73 = 33830) eGFR NON- AMER. (test 87 ML/MIN/1.73 code = 69637) CALC BUN/CREAT (test code = 10 RATIO 2235) SODIUM (test code = 2231) 136 MEQ/L POTASSIUM (test code = 2228) 4.9 MEQ/L CHLORIDE (test code = 2215) 100 MEQ/L CARBON DIOXIDE (test code = 26 MEQ/L 2205) CALCIUM (test code = 2209) 11.0 MG/DL PROTEIN, TOTAL (test code = 7.0 G/DL 2228) ALBUMIN (test code = 2201) 4.3 G/DL CALC GLOBULIN (test code = 2.7 G/DL 2240) CALC A/G RATIO (test code = 1.6 RATIO 2234) BILIRUBIN, TOTAL (test code = 0.9 MG/DL 220) ALKALINE PHOSPHATASE (test 104 U/L code = 2204) AST (test code = 2218) 37 U/L ALT (test code = 2219) 60 U/L LIPID [id number] 00:00:00 Test Item Value Reference Range Interpretation Comments CHOLESTEROL (test code = 2210) 121 MG/DL TRIGLYCERIDES (test code = 2232) 72 MG/DL HDL CHOLESTEROL (test code = 2220) 49 MG/DL CALC LDL CHOL (test code = 2237) 57 MG/DL RISK RATIO LDL/HDL (test code = 1.16 RATIO 2238) LIPID [id number] 00:00:00 Test Item Value Reference Range Interpretation Comments CHOLESTEROL (test code = 2210) 121 MG/DL TRIGLYCERIDES (test code = 2232) 72 MG/DL HDL CHOLESTEROL (test code = 2220) 49 MG/DL CALC LDL CHOL (test code = 2237) 57 MG/DL RISK RATIO LDL/HDL (test code = 1.16 RATIO 2238) [id number] 00:00:00 Test Item Value Reference Range Interpretation Comments TSH, THIRD GENERATION (test code 3.230 UIU/ML = 2821) [id number] 00:00:00 Test Item Value Reference Range Interpretation Comments TSH, THIRD GENERATION (test code 3.230 UIU/ML = 2821) [id number] 00:00:00 Test Item Value Reference Range Interpretation Comments TSH, THIRD GENERATION (test code 3.230 UIU/ML = 2821) [id number] 00:00:00 Test Item Value Reference Range Interpretation Comments MAGNESIUM (test code = 2226) 2.2 MG/DL [id number] 00:00:00 Test Item Value Reference Range Interpretation Comments MAGNESIUM (test code = 2226) 2.2 MG/DL [id number] 00:00:00 Test Item Value Reference Range Interpretation Comments MAGNESIUM (test code = 2226) 2.2 MG/DL VITAMIN [id number] 00:00:00 Test Item Value Reference Range Interpretation Comments VITAMIN B-12 (test code = 2840) 345 PG/ML VITAMIN [id number] 00:00:00 Test Item Value Reference Range Interpretation Comments VITAMIN B-12 (test code = 2840) 345 PG/ML VITAMIN [id number] 00:00:00 Test Item Value Reference Range Interpretation Comments VITAMIN B-12 (test code = 2840) 345 PG/ML VITAMIN D, 25 [id number] 00:00:00 Test Item Value Reference Range Interpretation Comments VITAMIN D, 25 OH (test code = 4958) 18 NG/ML VITAMIN D, 25 [id number] 00:00:00 Test Item Value Reference Range Interpretation Comments VITAMIN D, 25 OH (test code = 4958) 18 NG/ML COMPREHENSIVE METABOLIC [id number] 00:00:00 Test Item Value Reference Range Interpretation Comments GLUCOSE (test code = 2217) 92 MG/DL BUN (test code = 2208) 8 MG/DL CREATININE (test code = 2214) 0.78 MG/DL eGFR AMER. (test code 101 ML/MIN/1.73 = 62866) eGFR NON- AMER. (test 87 ML/MIN/1.73 code = 59386) CALC BUN/CREAT (test code = 10 RATIO 2235) SODIUM (test code = 2231) 136 MEQ/L POTASSIUM (test code = 2228) 4.9 MEQ/L CHLORIDE (test code = 2215) 100 MEQ/L CARBON DIOXIDE (test code = 26 MEQ/L 220) CALCIUM (test code = 2209) 11.0 MG/DL PROTEIN, TOTAL (test code = 7.0 G/DL 2228) ALBUMIN (test code = 2201) 4.3 G/DL CALC GLOBULIN (test code = 2.7 G/DL 2240) CALC A/G RATIO (test code = 1.6 RATIO 2234) BILIRUBIN, TOTAL (test code = 0.9 MG/DL 2206) ALKALINE PHOSPHATASE (test 104 U/L code = 2204) AST (test code = 2218) 37 U/L ALT (test code = 2219) 60 U/L COMPREHENSIVE METABOLIC [id number] 00:00:00 Test Item Value Reference Range Interpretation Comments GLUCOSE (test code = 2217) 92 MG/DL BUN (test code = 2208) 8 MG/DL CREATININE (test code = 2214) 0.78 MG/DL eGFR AMER. (test code 101 ML/MIN/1.73 = 78799) eGFR NON- AMER. (test 87 ML/MIN/1.73 code = 39317) CALC BUN/CREAT (test code = 10 RATIO 5) SODIUM (test code = 2231) 136 MEQ/L POTASSIUM (test code = 2228) 4.9 MEQ/L CHLORIDE (test code = 2215) 100 MEQ/L CARBON DIOXIDE (test code = 26 MEQ/L 220) CALCIUM (test code = 2209) 11.0 MG/DL PROTEIN, TOTAL (test code = 7.0 G/DL 2228) ALBUMIN (test code = 2201) 4.3 G/DL CALC GLOBULIN (test code = 2.7 G/DL 2240) CALC A/G RATIO (test code = 1.6 RATIO 2234) BILIRUBIN, TOTAL (test code = 0.9 MG/DL 2206) ALKALINE PHOSPHATASE (test 104 U/L code = 2204) AST (test code = 2218) 37 U/L ALT (test code = 2219) 60 U/L LIPID [id number] 00:00:00 Test Item Value Reference Range Interpretation Comments CHOLESTEROL (test code = 2210) 121 MG/DL TRIGLYCERIDES (test code = 2232) 72 MG/DL HDL CHOLESTEROL (test code = 2220) 49 MG/DL CALC LDL CHOL (test code = 2237) 57 MG/DL RISK RATIO LDL/HDL (test code = 1.16 RATIO 2238) LIPID [id number] 00:00:00 Test Item Value Reference Range Interpretation Comments CHOLESTEROL (test code = 2210) 121 MG/DL TRIGLYCERIDES (test code = 2232) 72 MG/DL HDL CHOLESTEROL (test code = 2220) 49 MG/DL CALC LDL CHOL (test code = 2237) 57 MG/DL RISK RATIO LDL/HDL (test code = 1.16 RATIO 2238) [id number] 00:00:00 Test Item Value Reference Range Interpretation Comments TSH, THIRD GENERATION (test code 3.230 UIU/ML = 2821) [id number] 00:00:00 Test Item Value Reference Range Interpretation Comments TSH, THIRD GENERATION (test code 3.230 UIU/ML = 2821) [id number] 00:00:00 Test Item Value Reference Range Interpretation Comments TSH, THIRD GENERATION (test code 3.230 UIU/ML = 2821) [id number] 00:00:00 Test Item Value Reference Range Interpretation Comments MAGNESIUM (test code = 2226) 2.2 MG/DL [id number] 00:00:00 Test Item Value Reference Range Interpretation Comments MAGNESIUM (test code = 2226) 2.2 MG/DL [id number] 00:00:00 Test Item Value Reference Range Interpretation Comments MAGNESIUM (test code = 2226) 2.2 MG/DL VITAMIN [id number] 00:00:00 Test Item Value Reference Range Interpretation Comments VITAMIN B-12 (test code = 2840) 345 PG/ML VITAMIN [id number] 00:00:00 Test Item Value Reference Range Interpretation Comments VITAMIN B-12 (test code = 2840) 345 PG/ML VITAMIN [id number] 00:00:00 Test Item Value Reference Range Interpretation Comments VITAMIN B-12 (test code = 2840) 345 PG/ML VITAMIN D, 25 [id number] 00:00:00 Test Item Value Reference Range Interpretation Comments VITAMIN D, 25 OH (test code = 4958) 18 NG/ML VITAMIN D, 25 [id number] 00:00:00 Test Item Value Reference Range Interpretation Comments VITAMIN D, 25 OH (test code = 4958) 18 NG/ML COMPREHENSIVE METABOLIC [id number] 00:00:00 Test Item Value Reference Range Interpretation Comments GLUCOSE (test code = 2217) 92 MG/DL BUN (test code = 2208) 8 MG/DL CREATININE (test code = 2214) 0.78 MG/DL eGFR AMER. (test code 101 ML/MIN/1.73 = 85917) eGFR NON- AMER. (test 87 ML/MIN/1.73 code = 57691) CALC BUN/CREAT (test code = 10 RATIO 5) SODIUM (test code = 2231) 136 MEQ/L POTASSIUM (test code = 2228) 4.9 MEQ/L CHLORIDE (test code = 2215) 100 MEQ/L CARBON DIOXIDE (test code = 26 MEQ/L 2205) CALCIUM (test code = 2209) 11.0 MG/DL PROTEIN, TOTAL (test code = 7.0 G/DL 2228) ALBUMIN (test code = 2201) 4.3 G/DL CALC GLOBULIN (test code = 2.7 G/DL 2240) CALC A/G RATIO (test code = 1.6 RATIO 2233) BILIRUBIN, TOTAL (test code = 0.9 MG/DL 2206) ALKALINE PHOSPHATASE (test 104 U/L code = 2204) AST (test code = 2218) 37 U/L ALT (test code = 2219) 60 U/L COMPREHENSIVE METABOLIC [id number] 00:00:00 Test Item Value Reference Range Interpretation Comments GLUCOSE (test code = 2217) 92 MG/DL BUN (test code = 2208) 8 MG/DL CREATININE (test code = 2214) 0.78 MG/DL eGFR AMER. (test code 101 ML/MIN/1.73 = 85765) eGFR NON- AMER. (test 87 ML/MIN/1.73 code = 89771) CALC BUN/CREAT (test code = 10 RATIO 2235) SODIUM (test code = 2231) 136 MEQ/L POTASSIUM (test code = 2228) 4.9 MEQ/L CHLORIDE (test code = 2215) 100 MEQ/L CARBON DIOXIDE (test code = 26 MEQ/L 2205) CALCIUM (test code = 2209) 11.0 MG/DL PROTEIN, TOTAL (test code = 7.0 G/DL 2228) ALBUMIN (test code = 2201) 4.3 G/DL CALC GLOBULIN (test code = 2.7 G/DL 2239) CALC A/G RATIO (test code = 1.6 RATIO 2233) BILIRUBIN, TOTAL (test code = 0.9 MG/DL 2206) ALKALINE PHOSPHATASE (test 104 U/L code = 2204) AST (test code = 2218) 37 U/L ALT (test code = 2219) 60 U/L LIPID [id number] 00:00:00 Test Item Value Reference Range Interpretation Comments CHOLESTEROL (test code = 2210) 121 MG/DL TRIGLYCERIDES (test code = 2232) 72 MG/DL HDL CHOLESTEROL (test code = 2220) 49 MG/DL CALC LDL CHOL (test code = 2237) 57 MG/DL RISK RATIO LDL/HDL (test code = 1.16 RATIO 2238) LIPID [id number] 00:00:00 Test Item Value Reference Range Interpretation Comments CHOLESTEROL (test code = 2210) 121 MG/DL TRIGLYCERIDES (test code = 2232) 72 MG/DL HDL CHOLESTEROL (test code = 2220) 49 MG/DL CALC LDL CHOL (test code = 2237) 57 MG/DL RISK RATIO LDL/HDL (test code = 1.16 RATIO 2238) [id number] 00:00:00 Test Item Value Reference Range Interpretation Comments TSH, THIRD GENERATION (test code 3.230 UIU/ML = 2821) [id number] 00:00:00 Test Item Value Reference Range Interpretation Comments TSH, THIRD GENERATION (test code 3.230 UIU/ML = 2821) [id number] 00:00:00 Test Item Value Reference Range Interpretation Comments TSH, THIRD GENERATION (test code 3.230 UIU/ML = 2821) [id number] 00:00:00 Test Item Value Reference Range Interpretation Comments MAGNESIUM (test code = 2226) 2.2 MG/DL [id number] 00:00:00 Test Item Value Reference Range Interpretation Comments MAGNESIUM (test code = 2226) 2.2 MG/DL [id number] 00:00:00 Test Item Value Reference Range Interpretation Comments MAGNESIUM (test code = 2226) 2.2 MG/DL VITAMIN [id number] 00:00:00 Test Item Value Reference Range Interpretation Comments VITAMIN B-12 (test code = 2840) 345 PG/ML VITAMIN [id number] 00:00:00 Test Item Value Reference Range Interpretation Comments VITAMIN B-12 (test code = 2840) 345 PG/ML VITAMIN [id number] 00:00:00 Test Item Value Reference Range Interpretation Comments VITAMIN B-12 (test code = 2840) 345 PG/ML VITAMIN D, 25 [id number] 00:00:00 Test Item Value Reference Range Interpretation Comments VITAMIN D, 25 OH (test code = 4958) 18 NG/ML VITAMIN D, 25 [id number] 00:00:00 Test Item Value Reference Range Interpretation Comments VITAMIN D, 25 OH (test code = 4958) 18 NG/ML COMPREHENSIVE METABOLIC [id number] 00:00:00 Test Item Value Reference Range Interpretation Comments GLUCOSE (test code = 2217) 92 MG/DL BUN (test code = 2208) 8 MG/DL CREATININE (test code = 2214) 0.78 MG/DL eGFR AMER. (test code 101 ML/MIN/1.73 = 35237) eGFR NON- AMER. (test 87 ML/MIN/1.73 code = 54655) CALC BUN/CREAT (test code = 10 RATIO 2235) SODIUM (test code = 2231) 136 MEQ/L POTASSIUM (test code = 2228) 4.9 MEQ/L CHLORIDE (test code = 2215) 100 MEQ/L CARBON DIOXIDE (test code = 26 MEQ/L 2205) CALCIUM (test code = 2209) 11.0 MG/DL PROTEIN, TOTAL (test code = 7.0 G/DL 2228) ALBUMIN (test code = 220) 4.3 G/DL CALC GLOBULIN (test code = 2.7 G/DL 2240) CALC A/G RATIO (test code = 1.6 RATIO 2234) BILIRUBIN, TOTAL (test code = 0.9 MG/DL 2207) ALKALINE PHOSPHATASE (test 104 U/L code = 2204) AST (test code = 2218) 37 U/L ALT (test code = 2219) 60 U/L COMPREHENSIVE METABOLIC [id number] 00:00:00 Test Item Value Reference Range Interpretation Comments GLUCOSE (test code = 2217) 92 MG/DL BUN (test code = 2208) 8 MG/DL CREATININE (test code = 2214) 0.78 MG/DL eGFR AMER. (test code 101 ML/MIN/1.73 = 80404) eGFR NON- AMER. (test 87 ML/MIN/1.73 code = 96825) CALC BUN/CREAT (test code = 10 RATIO 2235) SODIUM (test code = 2231) 136 MEQ/L POTASSIUM (test code = 2228) 4.9 MEQ/L CHLORIDE (test code = 2215) 100 MEQ/L CARBON DIOXIDE (test code = 26 MEQ/L 2205) CALCIUM (test code = 2209) 11.0 MG/DL PROTEIN, TOTAL (test code = 7.0 G/DL 2228) ALBUMIN (test code = 2201) 4.3 G/DL CALC GLOBULIN (test code = 2.7 G/DL 224) CALC A/G RATIO (test code = 1.6 RATIO 2234) BILIRUBIN, TOTAL (test code = 0.9 MG/DL 2206) ALKALINE PHOSPHATASE (test 104 U/L code = 2204) AST (test code = 2218) 37 U/L ALT (test code = 2219) 60 U/L LIPID [id number] 00:00:00 Test Item Value Reference Range Interpretation Comments CHOLESTEROL (test code = 2210) 121 MG/DL TRIGLYCERIDES (test code = 2232) 72 MG/DL HDL CHOLESTEROL (test code = 2220) 49 MG/DL CALC LDL CHOL (test code = 2237) 57 MG/DL RISK RATIO LDL/HDL (test code = 1.16 RATIO 2238) LIPID [id number] 00:00:00 Test Item Value Reference Range Interpretation Comments CHOLESTEROL (test code = 2210) 121 MG/DL TRIGLYCERIDES (test code = 2232) 72 MG/DL HDL CHOLESTEROL (test code = 2220) 49 MG/DL CALC LDL CHOL (test code = 2237) 57 MG/DL RISK RATIO LDL/HDL (test code = 1.16 RATIO 2238) [id number] 00:00:00 Test Item Value Reference Range Interpretation Comments TSH, THIRD GENERATION (test code 3.230 UIU/ML = 2821) [id number] 00:00:00 Test Item Value Reference Range Interpretation Comments TSH, THIRD GENERATION (test code 3.230 UIU/ML = 2821) [id number] 00:00:00 Test Item Value Reference Range Interpretation Comments TSH, THIRD GENERATION (test code 3.230 UIU/ML = 2821) [id number] 00:00:00 Test Item Value Reference Range Interpretation Comments MAGNESIUM (test code = 2226) 2.2 MG/DL [id number] 00:00:00 Test Item Value Reference Range Interpretation Comments MAGNESIUM (test code = 2226) 2.2 MG/DL [id number] 00:00:00 Test Item Value Reference Range Interpretation Comments MAGNESIUM (test code = 2226) 2.2 MG/DL VITAMIN [id number] 00:00:00 Test Item Value Reference Range Interpretation Comments VITAMIN B-12 (test code = 2840) 345 PG/ML VITAMIN [id number] 00:00:00 Test Item Value Reference Range Interpretation Comments VITAMIN B-12 (test code = 2840) 345 PG/ML VITAMIN [id number] 00:00:00 Test Item Value Reference Range Interpretation Comments VITAMIN B-12 (test code = 2840) 345 PG/ML VITAMIN D, 25 [id number] 00:00:00 Test Item Value Reference Range Interpretation Comments VITAMIN D, 25 OH (test code = 4958) 18 NG/ML VITAMIN D, 25 [id number] 00:00:00 Test Item Value Reference Range Interpretation Comments VITAMIN D, 25 OH (test code = 4958) 18 NG/ML COMPREHENSIVE METABOLIC [id number] 00:00:00 Test Item Value Reference Range Interpretation Comments GLUCOSE (test code = 2217) 92 MG/DL BUN (test code = 2208) 8 MG/DL CREATININE (test code = 2214) 0.78 MG/DL eGFR AMER. (test code 101 ML/MIN/1.73 = 41232) eGFR NON- AMER. (test 87 ML/MIN/1.73 code = 32609) CALC BUN/CREAT (test code = 10 RATIO 2235) SODIUM (test code = 2231) 136 MEQ/L POTASSIUM (test code = 2228) 4.9 MEQ/L CHLORIDE (test code = 2215) 100 MEQ/L CARBON DIOXIDE (test code = 26 MEQ/L 2206) CALCIUM (test code = 2209) 11.0 MG/DL PROTEIN, TOTAL (test code = 7.0 G/DL 2228) ALBUMIN (test code = 2201) 4.3 G/DL CALC GLOBULIN (test code = 2.7 G/DL 2240) CALC A/G RATIO (test code = 1.6 RATIO 2234) BILIRUBIN, TOTAL (test code = 0.9 MG/DL 2206) ALKALINE PHOSPHATASE (test 104 U/L code = 2204) AST (test code = 2218) 37 U/L ALT (test code = 2219) 60 U/L COMPREHENSIVE METABOLIC [id number] 00:00:00 Test Item Value Reference Range Interpretation Comments GLUCOSE (test code = 2217) 92 MG/DL BUN (test code = 2208) 8 MG/DL CREATININE (test code = 2214) 0.78 MG/DL eGFR AMER. (test code 101 ML/MIN/1.73 = 73734) eGFR NON- AMER. (test 87 ML/MIN/1.73 code = 65686) CALC BUN/CREAT (test code = 10 RATIO 2235) SODIUM (test code = 2231) 136 MEQ/L POTASSIUM (test code = 2228) 4.9 MEQ/L CHLORIDE (test code = 2215) 100 MEQ/L CARBON DIOXIDE (test code = 26 MEQ/L 2206) CALCIUM (test code = 2209) 11.0 MG/DL PROTEIN, TOTAL (test code = 7.0 G/DL 2228) ALBUMIN (test code = 2201) 4.3 G/DL CALC GLOBULIN (test code = 2.7 G/DL 2240) CALC A/G RATIO (test code = 1.6 RATIO 2234) BILIRUBIN, TOTAL (test code = 0.9 MG/DL 2206) ALKALINE PHOSPHATASE (test 104 U/L code = 2204) AST (test code = 2218) 37 U/L ALT (test code = 2219) 60 U/L LIPID [id number] 00:00:00 Test Item Value Reference Range Interpretation Comments CHOLESTEROL (test code = 2210) 121 MG/DL TRIGLYCERIDES (test code = 2232) 72 MG/DL HDL CHOLESTEROL (test code = 2220) 49 MG/DL CALC LDL CHOL (test code = 2237) 57 MG/DL RISK RATIO LDL/HDL (test code = 1.16 RATIO 2238) LIPID [id number] 00:00:00 Test Item Value Reference Range Interpretation Comments CHOLESTEROL (test code = 2210) 121 MG/DL TRIGLYCERIDES (test code = 2232) 72 MG/DL HDL CHOLESTEROL (test code = 2220) 49 MG/DL CALC LDL CHOL (test code = 2237) 57 MG/DL RISK RATIO LDL/HDL (test code = 1.16 RATIO 2238) [id number] 00:00:00 Test Item Value Reference Range Interpretation Comments TSH, THIRD GENERATION (test code 3.230 UIU/ML = 2821) [id number] 00:00:00 Test Item Value Reference Range Interpretation Comments TSH, THIRD GENERATION (test code 3.230 UIU/ML = 2821) [id number] 00:00:00 Test Item Value Reference Range Interpretation Comments TSH, THIRD GENERATION (test code 3.230 UIU/ML = 2821) [id number] 00:00:00 Test Item Value Reference Range Interpretation Comments MAGNESIUM (test code = 2226) 2.2 MG/DL [id number] 00:00:00 Test Item Value Reference Range Interpretation Comments MAGNESIUM (test code = 2226) 2.2 MG/DL [id number] 00:00:00 Test Item Value Reference Range Interpretation Comments MAGNESIUM (test code = 2226) 2.2 MG/DL VITAMIN [id number] 00:00:00 Test Item Value Reference Range Interpretation Comments VITAMIN B-12 (test code = 2840) 345 PG/ML VITAMIN [id number] 00:00:00 Test Item Value Reference Range Interpretation Comments VITAMIN B-12 (test code = 2840) 345 PG/ML VITAMIN [id number] 00:00:00 Test Item Value Reference Range Interpretation Comments VITAMIN B-12 (test code = 2840) 345 PG/ML VITAMIN D, 25 [id number] 00:00:00 Test Item Value Reference Range Interpretation Comments VITAMIN D, 25 OH (test code = 4958) 18 NG/ML VITAMIN D, 25 [id number] 00:00:00 Test Item Value Reference Range Interpretation Comments VITAMIN D, 25 OH (test code = 4958) 18 NG/ML COMPREHENSIVE METABOLIC [id number] 00:00:00 Test Item Value Reference Range Interpretation Comments GLUCOSE (test code = 2217) 92 MG/DL BUN (test code = 2208) 8 MG/DL CREATININE (test code = 2214) 0.78 MG/DL eGFR AMER. (test code 101 ML/MIN/1.73 = 90192) eGFR NON- AMER. (test 87 ML/MIN/1.73 code = 04987) CALC BUN/CREAT (test code = 10 RATIO 2235) SODIUM (test code = 2231) 136 MEQ/L POTASSIUM (test code = 2228) 4.9 MEQ/L CHLORIDE (test code = 2215) 100 MEQ/L CARBON DIOXIDE (test code = 26 MEQ/L 2205) CALCIUM (test code = 2209) 11.0 MG/DL PROTEIN, TOTAL (test code = 7.0 G/DL 2228) ALBUMIN (test code = 2201) 4.3 G/DL CALC GLOBULIN (test code = 2.7 G/DL 2240) CALC A/G RATIO (test code = 1.6 RATIO 2234) BILIRUBIN, TOTAL (test code = 0.9 MG/DL 2206) ALKALINE PHOSPHATASE (test 104 U/L code = 2204) AST (test code = 2218) 37 U/L ALT (test code = 2219) 60 U/L COMPREHENSIVE METABOLIC [id number] 00:00:00 Test Item Value Reference Range Interpretation Comments GLUCOSE (test code = 2217) 92 MG/DL BUN (test code = 2208) 8 MG/DL CREATININE (test code = 2214) 0.78 MG/DL eGFR AMER. (test code 101 ML/MIN/1.73 = 65213) eGFR NON- AMER. (test 87 ML/MIN/1.73 code = 41523) CALC BUN/CREAT (test code = 10 RATIO 2235) SODIUM (test code = 2231) 136 MEQ/L POTASSIUM (test code = 2228) 4.9 MEQ/L CHLORIDE (test code = 2215) 100 MEQ/L CARBON DIOXIDE (test code = 26 MEQ/L 2205) CALCIUM (test code = 2209) 11.0 MG/DL PROTEIN, TOTAL (test code = 7.0 G/DL 2228) ALBUMIN (test code = 2201) 4.3 G/DL CALC GLOBULIN (test code = 2.7 G/DL 2239) CALC A/G RATIO (test code = 1.6 RATIO 2234) BILIRUBIN, TOTAL (test code = 0.9 MG/DL 2206) ALKALINE PHOSPHATASE (test 104 U/L code = 2204) AST (test code = 2218) 37 U/L ALT (test code = 2219) 60 U/L LIPID [id number] 00:00:00 Test Item Value Reference Range Interpretation Comments CHOLESTEROL (test code = 2210) 121 MG/DL TRIGLYCERIDES (test code = 2232) 72 MG/DL HDL CHOLESTEROL (test code = 2220) 49 MG/DL CALC LDL CHOL (test code = 2237) 57 MG/DL RISK RATIO LDL/HDL (test code = 1.16 RATIO 2238) LIPID [id number] 00:00:00 Test Item Value Reference Range Interpretation Comments CHOLESTEROL (test code = 2210) 121 MG/DL TRIGLYCERIDES (test code = 2232) 72 MG/DL HDL CHOLESTEROL (test code = 2220) 49 MG/DL CALC LDL CHOL (test code = 2237) 57 MG/DL RISK RATIO LDL/HDL (test code = 1.16 RATIO 2238) [id number] 00:00:00 Test Item Value Reference Range Interpretation Comments TSH, THIRD GENERATION (test code 3.230 UIU/ML = 2821) [id number] 00:00:00 Test Item Value Reference Range Interpretation Comments TSH, THIRD GENERATION (test code 3.230 UIU/ML = 2821) [id number] 00:00:00 Test Item Value Reference Range Interpretation Comments TSH, THIRD GENERATION (test code 3.230 UIU/ML = 2821) [id number] 00:00:00 Test Item Value Reference Range Interpretation Comments MAGNESIUM (test code = 2226) 2.2 MG/DL [id number] 00:00:00 Test Item Value Reference Range Interpretation Comments MAGNESIUM (test code = 2226) 2.2 MG/DL [id number] 00:00:00 Test Item Value Reference Range Interpretation Comments MAGNESIUM (test code = 2226) 2.2 MG/DL VITAMIN [id number] 00:00:00 Test Item Value Reference Range Interpretation Comments VITAMIN B-12 (test code = 2840) 345 PG/ML VITAMIN [id number] 00:00:00 Test Item Value Reference Range Interpretation Comments VITAMIN B-12 (test code = 2840) 345 PG/ML VITAMIN [id number] 00:00:00 Test Item Value Reference Range Interpretation Comments VITAMIN B-12 (test code = 2840) 345 PG/ML VITAMIN D, 25 [id number] 00:00:00 Test Item Value Reference Range Interpretation Comments VITAMIN D, 25 OH (test code = 4958) 18 NG/ML VITAMIN D, 25 [id number] 00:00:00 Test Item Value Reference Range Interpretation Comments VITAMIN D, 25 OH (test code = 4958) 18 NG/ML COMPREHENSIVE METABOLIC [id number] 00:00:00 Test Item Value Reference Range Interpretation Comments GLUCOSE (test code = 2217) 92 MG/DL BUN (test code = 2208) 8 MG/DL CREATININE (test code = 2214) 0.78 MG/DL eGFR AMER. (test code 101 ML/MIN/1.73 = 28773) eGFR NON- AMER. (test 87 ML/MIN/1.73 code = 51417) CALC BUN/CREAT (test code = 10 RATIO 2235) SODIUM (test code = 2231) 136 MEQ/L POTASSIUM (test code = 2228) 4.9 MEQ/L CHLORIDE (test code = 2215) 100 MEQ/L CARBON DIOXIDE (test code = 26 MEQ/L 2205) CALCIUM (test code = 2209) 11.0 MG/DL PROTEIN, TOTAL (test code = 7.0 G/DL 2228) ALBUMIN (test code = 2201) 4.3 G/DL CALC GLOBULIN (test code = 2.7 G/DL 2239) CALC A/G RATIO (test code = 1.6 RATIO 2234) BILIRUBIN, TOTAL (test code = 0.9 MG/DL 2206) ALKALINE PHOSPHATASE (test 104 U/L code = 2204) AST (test code = 2218) 37 U/L ALT (test code = 2219) 60 U/L COMPREHENSIVE METABOLIC [id number] 00:00:00 Test Item Value Reference Range Interpretation Comments GLUCOSE (test code = 2217) 92 MG/DL BUN (test code = 2208) 8 MG/DL CREATININE (test code = 2214) 0.78 MG/DL eGFR AMER. (test code 101 ML/MIN/1.73 = 33507) eGFR NON- AMER. (test 87 ML/MIN/1.73 code = 41953) CALC BUN/CREAT (test code = 10 RATIO 2235) SODIUM (test code = 2231) 136 MEQ/L POTASSIUM (test code = 2228) 4.9 MEQ/L CHLORIDE (test code = 2215) 100 MEQ/L CARBON DIOXIDE (test code = 26 MEQ/L 2205) CALCIUM (test code = 2209) 11.0 MG/DL PROTEIN, TOTAL (test code = 7.0 G/DL 2228) ALBUMIN (test code = 2201) 4.3 G/DL CALC GLOBULIN (test code = 2.7 G/DL 0) CALC A/G RATIO (test code = 1.6 RATIO 4) BILIRUBIN, TOTAL (test code = 0.9 MG/DL 2206) ALKALINE PHOSPHATASE (test 104 U/L code = 2204) AST (test code = 2218) 37 U/L ALT (test code = 2219) 60 U/L LIPID [id number] 00:00:00 Test Item Value Reference Range Interpretation Comments CHOLESTEROL (test code = 2210) 121 MG/DL TRIGLYCERIDES (test code = 2232) 72 MG/DL HDL CHOLESTEROL (test code = 2220) 49 MG/DL CALC LDL CHOL (test code = 2237) 57 MG/DL RISK RATIO LDL/HDL (test code = 1.16 RATIO 2238) LIPID [id number] 00:00:00 Test Item Value Reference Range Interpretation Comments CHOLESTEROL (test code = 2210) 121 MG/DL TRIGLYCERIDES (test code = 2232) 72 MG/DL HDL CHOLESTEROL (test code = 2220) 49 MG/DL CALC LDL CHOL (test code = 2237) 57 MG/DL RISK RATIO LDL/HDL (test code = 1.16 RATIO 2238) [id number] 00:00:00 Test Item Value Reference Range Interpretation Comments TSH, THIRD GENERATION (test code 3.230 UIU/ML = 2821) [id number] 00:00:00 Test Item Value Reference Range Interpretation Comments TSH, THIRD GENERATION (test code 3.230 UIU/ML = 2821) [id number] 00:00:00 Test Item Value Reference Range Interpretation Comments TSH, THIRD GENERATION (test code 3.230 UIU/ML = 2821) [id number] 00:00:00 Test Item Value Reference Range Interpretation Comments MAGNESIUM (test code = 2226) 2.2 MG/DL [id number] 00:00:00 Test Item Value Reference Range Interpretation Comments MAGNESIUM (test code = 2226) 2.2 MG/DL [id number] 00:00:00 Test Item Value Reference Range Interpretation Comments MAGNESIUM (test code = 2226) 2.2 MG/DL VITAMIN [id number] 00:00:00 Test Item Value Reference Range Interpretation Comments VITAMIN B-12 (test code = 2840) 345 PG/ML VITAMIN [id number] 00:00:00 Test Item Value Reference Range Interpretation Comments VITAMIN B-12 (test code = 2840) 345 PG/ML VITAMIN [id number] 00:00:00 Test Item Value Reference Range Interpretation Comments VITAMIN B-12 (test code = 2840) 345 PG/ML VITAMIN D, 25 [id number] 00:00:00 Test Item Value Reference Range Interpretation Comments VITAMIN D, 25 OH (test code = 4958) 18 NG/ML VITAMIN D, 25 [id number] 00:00:00 Test Item Value Reference Range Interpretation Comments VITAMIN D, 25 OH (test code = 4958) 18 NG/ML COMPREHENSIVE METABOLIC [id number] 00:00:00 Test Item Value Reference Range Interpretation Comments GLUCOSE (test code = 2217) 92 MG/DL BUN (test code = 2208) 8 MG/DL CREATININE (test code = 2214) 0.78 MG/DL eGFR AMER. (test code 101 ML/MIN/1.73 = 60851) eGFR NON- AMER. (test 87 ML/MIN/1.73 code = 70006) CALC BUN/CREAT (test code = 10 RATIO 2235) SODIUM (test code = 2231) 136 MEQ/L POTASSIUM (test code = 2228) 4.9 MEQ/L CHLORIDE (test code = 2215) 100 MEQ/L CARBON DIOXIDE (test code = 26 MEQ/L 220) CALCIUM (test code = 2209) 11.0 MG/DL PROTEIN, TOTAL (test code = 7.0 G/DL 2228) ALBUMIN (test code = 2201) 4.3 G/DL CALC GLOBULIN (test code = 2.7 G/DL 2240) CALC A/G RATIO (test code = 1.6 RATIO 2234) BILIRUBIN, TOTAL (test code = 0.9 MG/DL 2206) ALKALINE PHOSPHATASE (test 104 U/L code = 2203) AST (test code = 2218) 37 U/L ALT (test code = 2219) 60 U/L COMPREHENSIVE METABOLIC [id number] 00:00:00 Test Item Value Reference Range Interpretation Comments GLUCOSE (test code = 2217) 92 MG/DL BUN (test code = 2208) 8 MG/DL CREATININE (test code = 2214) 0.78 MG/DL eGFR AMER. (test code 101 ML/MIN/1.73 = 48017) eGFR NON- AMER. (test 87 ML/MIN/1.73 code = 56964) CALC BUN/CREAT (test code = 10 RATIO 2235) SODIUM (test code = 2231) 136 MEQ/L POTASSIUM (test code = 2228) 4.9 MEQ/L CHLORIDE (test code = 2215) 100 MEQ/L CARBON DIOXIDE (test code = 26 MEQ/L 2205) CALCIUM (test code = 2209) 11.0 MG/DL PROTEIN, TOTAL (test code = 7.0 G/DL 2228) ALBUMIN (test code = 2201) 4.3 G/DL CALC GLOBULIN (test code = 2.7 G/DL 2240) CALC A/G RATIO (test code = 1.6 RATIO 2234) BILIRUBIN, TOTAL (test code = 0.9 MG/DL 2206) ALKALINE PHOSPHATASE (test 104 U/L code = 2204) AST (test code = 2218) 37 U/L ALT (test code = 2219) 60 U/L LIPID [id number] 00:00:00 Test Item Value Reference Range Interpretation Comments CHOLESTEROL (test code = 2210) 121 MG/DL TRIGLYCERIDES (test code = 2232) 72 MG/DL HDL CHOLESTEROL (test code = 2220) 49 MG/DL CALC LDL CHOL (test code = 2237) 57 MG/DL RISK RATIO LDL/HDL (test code = 1.16 RATIO 2238) LIPID [id number] 00:00:00 Test Item Value Reference Range Interpretation Comments CHOLESTEROL (test code = 2210) 121 MG/DL TRIGLYCERIDES (test code = 2232) 72 MG/DL HDL CHOLESTEROL (test code = 2220) 49 MG/DL CALC LDL CHOL (test code = 2237) 57 MG/DL RISK RATIO LDL/HDL (test code = 1.16 RATIO 2238) [id number] 00:00:00 Test Item Value Reference Range Interpretation Comments TSH, THIRD GENERATION (test code 3.230 UIU/ML = 2821) [id number] 00:00:00 Test Item Value Reference Range Interpretation Comments TSH, THIRD GENERATION (test code 3.230 UIU/ML = 2821) [id number] 00:00:00 Test Item Value Reference Range Interpretation Comments TSH, THIRD GENERATION (test code 3.230 UIU/ML = 2821) [id number] 00:00:00 Test Item Value Reference Range Interpretation Comments MAGNESIUM (test code = 2226) 2.2 MG/DL [id number] 00:00:00 Test Item Value Reference Range Interpretation Comments MAGNESIUM (test code = 2226) 2.2 MG/DL [id number] 00:00:00 Test Item Value Reference Range Interpretation Comments MAGNESIUM (test code = 2226) 2.2 MG/DL VITAMIN [id number] 00:00:00 Test Item Value Reference Range Interpretation Comments VITAMIN B-12 (test code = 2840) 345 PG/ML VITAMIN [id number] 00:00:00 Test Item Value Reference Range Interpretation Comments VITAMIN B-12 (test code = 2840) 345 PG/ML VITAMIN [id number] 00:00:00 Test Item Value Reference Range Interpretation Comments VITAMIN B-12 (test code = 2840) 345 PG/ML VITAMIN D, 25 [id number] 00:00:00 Test Item Value Reference Range Interpretation Comments VITAMIN D, 25 OH (test code = 4958) 18 NG/ML VITAMIN D, 25 [id number] 00:00:00 Test Item Value Reference Range Interpretation Comments VITAMIN D, 25 OH (test code = 4958) 18 NG/ML COMPREHENSIVE METABOLIC [id number] 00:00:00 Test Item Value Reference Range Interpretation Comments GLUCOSE (test code = 2217) 92 MG/DL BUN (test code = 2208) 8 MG/DL CREATININE (test code = 2214) 0.78 MG/DL eGFR AMER. (test code 101 ML/MIN/1.73 = 59707) eGFR NON- AMER. (test 87 ML/MIN/1.73 code = 39159) CALC BUN/CREAT (test code = 10 RATIO 2235) SODIUM (test code = 2231) 136 MEQ/L POTASSIUM (test code = 2228) 4.9 MEQ/L CHLORIDE (test code = 2215) 100 MEQ/L CARBON DIOXIDE (test code = 26 MEQ/L 2205) CALCIUM (test code = 2209) 11.0 MG/DL PROTEIN, TOTAL (test code = 7.0 G/DL 2228) ALBUMIN (test code = 2201) 4.3 G/DL CALC GLOBULIN (test code = 2.7 G/DL 0) CALC A/G RATIO (test code = 1.6 RATIO 2234) BILIRUBIN, TOTAL (test code = 0.9 MG/DL 2206) ALKALINE PHOSPHATASE (test 104 U/L code = 2204) AST (test code = 2218) 37 U/L ALT (test code = 2219) 60 U/L COMPREHENSIVE METABOLIC [id number] 00:00:00 Test Item Value Reference Range Interpretation Comments GLUCOSE (test code = 2217) 92 MG/DL BUN (test code = 2208) 8 MG/DL CREATININE (test code = 2214) 0.78 MG/DL eGFR AMER. (test code 101 ML/MIN/1.73 = 36027) eGFR NON- AMER. (test 87 ML/MIN/1.73 code = 14397) CALC BUN/CREAT (test code = 10 RATIO 2235) SODIUM (test code = 2231) 136 MEQ/L POTASSIUM (test code = 2228) 4.9 MEQ/L CHLORIDE (test code = 2215) 100 MEQ/L CARBON DIOXIDE (test code = 26 MEQ/L 2205) CALCIUM (test code = 2209) 11.0 MG/DL PROTEIN, TOTAL (test code = 7.0 G/DL 2228) ALBUMIN (test code = 2201) 4.3 G/DL CALC GLOBULIN (test code = 2.7 G/DL 2239) CALC A/G RATIO (test code = 1.6 RATIO 2234) BILIRUBIN, TOTAL (test code = 0.9 MG/DL 2206) ALKALINE PHOSPHATASE (test 104 U/L code = 2204) AST (test code = 2218) 37 U/L ALT (test code = 2219) 60 U/L LIPID [id number] 00:00:00 Test Item Value Reference Range Interpretation Comments CHOLESTEROL (test code = 2210) 121 MG/DL TRIGLYCERIDES (test code = 2232) 72 MG/DL HDL CHOLESTEROL (test code = 2220) 49 MG/DL CALC LDL CHOL (test code = 2237) 57 MG/DL RISK RATIO LDL/HDL (test code = 1.16 RATIO 2238) LIPID [id number] 00:00:00 Test Item Value Reference Range Interpretation Comments CHOLESTEROL (test code = 2210) 121 MG/DL TRIGLYCERIDES (test code = 2232) 72 MG/DL HDL CHOLESTEROL (test code = 2220) 49 MG/DL CALC LDL CHOL (test code = 2237) 57 MG/DL RISK RATIO LDL/HDL (test code = 1.16 RATIO 2238) [id number] 00:00:00 Test Item Value Reference Range Interpretation Comments TSH, THIRD GENERATION (test code 3.230 UIU/ML = 2821) [id number] 00:00:00 Test Item Value Reference Range Interpretation Comments TSH, THIRD GENERATION (test code 3.230 UIU/ML = 2821) [id number] 00:00:00 Test Item Value Reference Range Interpretation Comments TSH, THIRD GENERATION (test code 3.230 UIU/ML = 2821) [id number] 00:00:00 Test Item Value Reference Range Interpretation Comments MAGNESIUM (test code = 2226) 2.2 MG/DL [id number] 00:00:00 Test Item Value Reference Range Interpretation Comments MAGNESIUM (test code = 2226) 2.2 MG/DL [id number] 00:00:00 Test Item Value Reference Range Interpretation Comments MAGNESIUM (test code = 2226) 2.2 MG/DL VITAMIN [id number] 00:00:00 Test Item Value Reference Range Interpretation Comments VITAMIN B-12 (test code = 2840) 345 PG/ML VITAMIN [id number] 00:00:00 Test Item Value Reference Range Interpretation Comments VITAMIN B-12 (test code = 2840) 345 PG/ML VITAMIN [id number] 00:00:00 Test Item Value Reference Range Interpretation Comments VITAMIN B-12 (test code = 2840) 345 PG/ML VITAMIN D, 25 [id number] 00:00:00 Test Item Value Reference Range Interpretation Comments VITAMIN D, 25 OH (test code = 4958) 18 NG/ML VITAMIN D, 25 [id number] 00:00:00 Test Item Value Reference Range Interpretation Comments VITAMIN D, 25 OH (test code = 4958) 18 NG/ML COMPREHENSIVE METABOLIC [id number] 00:00:00 Test Item Value Reference Range Interpretation Comments GLUCOSE (test code = 2217) 92 MG/DL BUN (test code = 2208) 8 MG/DL CREATININE (test code = 2214) 0.78 MG/DL eGFR AMER. (test code 101 ML/MIN/1.73 = 57438) eGFR NON- AMER. (test 87 ML/MIN/1.73 code = 91370) CALC BUN/CREAT (test code = 10 RATIO 2234) SODIUM (test code = 2231) 136 MEQ/L POTASSIUM (test code = 2228) 4.9 MEQ/L CHLORIDE (test code = 2215) 100 MEQ/L CARBON DIOXIDE (test code = 26 MEQ/L 2205) CALCIUM (test code = 2209) 11.0 MG/DL PROTEIN, TOTAL (test code = 7.0 G/DL 2228) ALBUMIN (test code = 2201) 4.3 G/DL CALC GLOBULIN (test code = 2.7 G/DL 2239) CALC A/G RATIO (test code = 1.6 RATIO 2233) BILIRUBIN, TOTAL (test code = 0.9 MG/DL 2206) ALKALINE PHOSPHATASE (test 104 U/L code = 2204) AST (test code = 2218) 37 U/L ALT (test code = 2219) 60 U/L COMPREHENSIVE METABOLIC [id number] 00:00:00 Test Item Value Reference Range Interpretation Comments GLUCOSE (test code = 2217) 92 MG/DL BUN (test code = 2208) 8 MG/DL CREATININE (test code = 2214) 0.78 MG/DL eGFR AMER. (test code 101 ML/MIN/1.73 = 73069) eGFR NON- AMER. (test 87 ML/MIN/1.73 code = 43546) CALC BUN/CREAT (test code = 10 RATIO 2235) SODIUM (test code = 2231) 136 MEQ/L POTASSIUM (test code = 2228) 4.9 MEQ/L CHLORIDE (test code = 2215) 100 MEQ/L CARBON DIOXIDE (test code = 26 MEQ/L 220) CALCIUM (test code = 2209) 11.0 MG/DL PROTEIN, TOTAL (test code = 7.0 G/DL 2228) ALBUMIN (test code = 2201) 4.3 G/DL CALC GLOBULIN (test code = 2.7 G/DL 224) CALC A/G RATIO (test code = 1.6 RATIO 2234) BILIRUBIN, TOTAL (test code = 0.9 MG/DL 2206) ALKALINE PHOSPHATASE (test 104 U/L code = 2204) AST (test code = 2218) 37 U/L ALT (test code = 2219) 60 U/L COMPREHENSIVE METABOLIC [id number] 00:00:00 Test Item Value Reference Range Interpretation Comments GLUCOSE (test code = 2217) 92 MG/DL BUN (test code = 2208) 8 MG/DL CREATININE (test code = 2214) 0.78 MG/DL eGFR AMER. (test code 101 ML/MIN/1.73 = 05560) eGFR NON- AMER. (test 87 ML/MIN/1.73 code = 95799) CALC BUN/CREAT (test code = 10 RATIO 2235) SODIUM (test code = 2231) 136 MEQ/L POTASSIUM (test code = 2228) 4.9 MEQ/L CHLORIDE (test code = 2215) 100 MEQ/L CARBON DIOXIDE (test code = 26 MEQ/L 2206) CALCIUM (test code = 2209) 11.0 MG/DL PROTEIN, TOTAL (test code = 7.0 G/DL 2228) ALBUMIN (test code = 2201) 4.3 G/DL CALC GLOBULIN (test code = 2.7 G/DL 2240) CALC A/G RATIO (test code = 1.6 RATIO 2234) BILIRUBIN, TOTAL (test code = 0.9 MG/DL 2206) ALKALINE PHOSPHATASE (test 104 U/L code = 2204) AST (test code = 2218) 37 U/L ALT (test code = 2219) 60 U/L LIPID [id number] 00:00:00 Test Item Value Reference Range Interpretation Comments CHOLESTEROL (test code = 2210) 121 MG/DL TRIGLYCERIDES (test code = 2232) 72 MG/DL HDL CHOLESTEROL (test code = 2220) 49 MG/DL CALC LDL CHOL (test code = 2237) 57 MG/DL RISK RATIO LDL/HDL (test code = 1.16 RATIO 2238) LIPID [id number] 00:00:00 Test Item Value Reference Range Interpretation Comments CHOLESTEROL (test code = 2210) 121 MG/DL TRIGLYCERIDES (test code = 2232) 72 MG/DL HDL CHOLESTEROL (test code = 2220) 49 MG/DL CALC LDL CHOL (test code = 2237) 57 MG/DL RISK RATIO LDL/HDL (test code = 1.16 RATIO 2238) LIPID [id number] 00:00:00 Test Item Value Reference Range Interpretation Comments CHOLESTEROL (test code = 2210) 121 MG/DL TRIGLYCERIDES (test code = 2232) 72 MG/DL HDL CHOLESTEROL (test code = 2220) 49 MG/DL CALC LDL CHOL (test code = 2237) 57 MG/DL RISK RATIO LDL/HDL (test code = 1.16 RATIO 2238) [id number] 00:00:00 Test Item Value Reference Range Interpretation Comments TSH, THIRD GENERATION (test code 3.230 UIU/ML = 2821) [id number] 00:00:00 Test Item Value Reference Range Interpretation Comments TSH, THIRD GENERATION (test code 3.230 UIU/ML = 2821) [id number] 00:00:00 Test Item Value Reference Range Interpretation Comments TSH, THIRD GENERATION (test code 3.230 UIU/ML = 2821) [id number] 00:00:00 Test Item Value Reference Range Interpretation Comments MAGNESIUM (test code = 2226) 2.2 MG/DL [id number] 00:00:00 Test Item Value Reference Range Interpretation Comments MAGNESIUM (test code = 2226) 2.2 MG/DL [id number] 00:00:00 Test Item Value Reference Range Interpretation Comments MAGNESIUM (test code = 2226) 2.2 MG/DL VITAMIN [id number] 00:00:00 Test Item Value Reference Range Interpretation Comments VITAMIN B-12 (test code = 2840) 345 PG/ML VITAMIN [id number] 00:00:00 Test Item Value Reference Range Interpretation Comments VITAMIN B-12 (test code = 2840) 345 PG/ML [id number] 00:00:00 Test Item Value Reference Range Interpretation Comments TSH, THIRD GENERATION (test code 3.230 UIU/ML = 2821) VITAMIN [id number] 00:00:00 Test Item Value Reference Range Interpretation Comments VITAMIN B-12 (test code = 2840) 345 PG/ML VITAMIN D, 25 [id number] 00:00:00 Test Item Value Reference Range Interpretation Comments VITAMIN D, 25 OH (test code = 4958) 18 NG/ML PAP TEST, THINPREP, [id number] 00:00:00 Test Item Value Reference Range Interpretation Comments SOURCE: (test code = Cervical/Endocervical 8001) SLIDES: (test code = 1 8011) LMP: (test code = 8021) SEE NOTE SPECIMEN ADEQUACY: (test (NOTE) code = 01868) INTERPRETATION: (test NILM/NO EPITH. code = 27307) ABNORMALITY;SEE BELOW OTHER COMMENTS: (test (NOTE) code = 8081) ORDER TAKERS SUPERVISOR: (test LIGIA Haile (ASCP) code = 8101) LOCATION: (test code = (NOTE) 22927) CPT: (test code = 8140) (NOTE) PAP TEST, THINPREP, [id number] 00:00:00 Test Item Value Reference Range Interpretation Comments SOURCE: (test code = Cervical/Endocervical 8001) SLIDES: (test code = 1 8011) LMP: (test code = 8021) SEE NOTE SPECIMEN ADEQUACY: (test (NOTE) code = 48765) INTERPRETATION: (test NILM/NO EPITH. code = 32551) ABNORMALITY;SEE BELOW OTHER COMMENTS: (test (NOTE) code = 8081) ORDER TAKERS SUPERVISOR: (test LIGIA Haile (ASCP) code = 8101) LOCATION: (test code = (NOTE) 62933) CPT: (test code = 8140) (NOTE) HPV HIGH RISK WITH GENOTYPE, [id number] 00:00:00 Test Item Value Reference Range Interpretation Comments HPV HIGH RISK INTERP (test code = NEGATIVE 33725) HPV 16 (test code = 97417) NEGATIVE HPV 18 (test code = 37638) NEGATIVE HPV, HR, OTHER GENOTYPES (test code NEGATIVE = 07754) HPV HIGH RISK WITH GENOTYPE, [id number] 00:00:00 Test Item Value Reference Range Interpretation Comments HPV HIGH RISK INTERP (test code = NEGATIVE 15534) HPV 16 (test code = 46497) NEGATIVE HPV 18 (test code = 45983) NEGATIVE HPV, HR, OTHER GENOTYPES (test code NEGATIVE = 87863) PAP TEST, THINPREP, [id number] 00:00:00 Test Item Value Reference Range Interpretation Comments SOURCE: (test code = Cervical/Endocervical 8001) SLIDES: (test code = 1 8011) LMP: (test code = 8021) SEE NOTE SPECIMEN ADEQUACY: (test (NOTE) code = 09584) INTERPRETATION: (test NILM/NO EPITH. code = 78113) ABNORMALITY;SEE BELOW OTHER COMMENTS: (test (NOTE) code = 8081) ORDER TAKERS SUPERVISOR: (test LIGIA Haile (ASCP) code = 8101) LOCATION: (test code = (NOTE) 94658) CPT: (test code = 8140) (NOTE) PAP TEST, THINPREP, [id number] 00:00:00 Test Item Value Reference Range Interpretation Comments SOURCE: (test code = Cervical/Endocervical 8001) SLIDES: (test code = 1 8011) LMP: (test code = 8021) SEE NOTE SPECIMEN ADEQUACY: (test (NOTE) code = 52126) INTERPRETATION: (test NILM/NO EPITH. code = 96449) ABNORMALITY;SEE BELOW OTHER COMMENTS: (test (NOTE) code = 8081) ORDER TAKERS SUPERVISOR: (test LIGIA Haile (ASCP) code = 8101) LOCATION: (test code = (NOTE) 50553) CPT: (test code = 8140) (NOTE) HPV HIGH RISK WITH GENOTYPE, [id number] 00:00:00 Test Item Value Reference Range Interpretation Comments HPV HIGH RISK INTERP (test code = NEGATIVE 38680) HPV 16 (test code = 37071) NEGATIVE HPV 18 (test code = 32014) NEGATIVE HPV, HR, OTHER GENOTYPES (test code NEGATIVE = 74502) HPV HIGH RISK WITH GENOTYPE, [id number] 00:00:00 Test Item Value Reference Range Interpretation Comments HPV HIGH RISK INTERP (test code = NEGATIVE 04957) HPV 16 (test code = 23410) NEGATIVE HPV 18 (test code = 30206) NEGATIVE HPV, HR, OTHER GENOTYPES (test code NEGATIVE = 24939) PAP TEST, THINPREP, [id number] 00:00:00 Test Item Value Reference Range Interpretation Comments SOURCE: (test code = Cervical/Endocervical 8001) SLIDES: (test code = 1 8011) LMP: (test code = 8021) SEE NOTE SPECIMEN ADEQUACY: (test (NOTE) code = 31143) INTERPRETATION: (test NILM/NO EPITH. code = 50908) ABNORMALITY;SEE BELOW OTHER COMMENTS: (test (NOTE) code = 8081) ORDER TAKERS SUPERVISOR: (test Yoselin KlausLIGIA (ASCP) code = 8101) LOCATION: (test code = (NOTE) 18841) CPT: (test code = 8140) (NOTE) PAP TEST, THINPREP, [id number] 00:00:00 Test Item Value Reference Range Interpretation Comments SOURCE: (test code = Cervical/Endocervical 8001) SLIDES: (test code = 1 8011) LMP: (test code = 8021) SEE NOTE SPECIMEN ADEQUACY: (test (NOTE) code = 54075) INTERPRETATION: (test NILM/NO EPITH. code = 25206) ABNORMALITY;SEE BELOW OTHER COMMENTS: (test (NOTE) code = 8081) ORDER TAKERS SUPERVISOR: (test YoselinLIGIA Gan (ASCP) code = 8101) LOCATION: (test code = (NOTE) 74051) CPT: (test code = 8140) (NOTE) HPV HIGH RISK WITH GENOTYPE, [id number] 00:00:00 Test Item Value Reference Range Interpretation Comments HPV HIGH RISK INTERP (test code = NEGATIVE 67928) HPV 16 (test code = 98454) NEGATIVE HPV 18 (test code = 56294) NEGATIVE HPV, HR, OTHER GENOTYPES (test code NEGATIVE = 87756) HPV HIGH RISK WITH GENOTYPE, [id number] 00:00:00 Test Item Value Reference Range Interpretation Comments HPV HIGH RISK INTERP (test code = NEGATIVE 00590) HPV 16 (test code = 50608) NEGATIVE HPV 18 (test code = 88671) NEGATIVE HPV, HR, OTHER GENOTYPES (test code NEGATIVE = 13936) PAP TEST, THINPREP, [id number] 00:00:00 Test Item Value Reference Range Interpretation Comments SOURCE: (test code = Cervical/Endocervical 8001) SLIDES: (test code = 1 8011) LMP: (test code = 8021) SEE NOTE SPECIMEN ADEQUACY: (test (NOTE) code = 72853) INTERPRETATION: (test NILM/NO EPITH. code = 16041) ABNORMALITY;SEE BELOW OTHER COMMENTS: (test (NOTE) code = 8081) ORDER TAKERS SUPERVISOR: (test LIGIA Haile (ASCP) code = 8101) LOCATION: (test code = (NOTE) 02582) CPT: (test code = 8140) (NOTE) PAP TEST, THINPREP, [id number] 00:00:00 Test Item Value Reference Range Interpretation Comments SOURCE: (test code = Cervical/Endocervical 8001) SLIDES: (test code = 1 8011) LMP: (test code = 8021) SEE NOTE SPECIMEN ADEQUACY: (test (NOTE) code = 47472) INTERPRETATION: (test NILM/NO EPITH. code = 89506) ABNORMALITY;SEE BELOW OTHER COMMENTS: (test (NOTE) code = 8081) ORDER TAKERS SUPERVISOR: (test LIGIA Haile (ASCP) code = 8101) LOCATION: (test code = (NOTE) 87717) CPT: (test code = 8140) (NOTE) HPV HIGH RISK WITH GENOTYPE, [id number] 00:00:00 Test Item Value Reference Range Interpretation Comments HPV HIGH RISK INTERP (test code = NEGATIVE 61889) HPV 16 (test code = 81296) NEGATIVE HPV 18 (test code = 21666) NEGATIVE HPV, HR, OTHER GENOTYPES (test code NEGATIVE = 89896) HPV HIGH RISK WITH GENOTYPE, [id number] 00:00:00 Test Item Value Reference Range Interpretation Comments HPV HIGH RISK INTERP (test code = NEGATIVE 96628) HPV 16 (test code = 02657) NEGATIVE HPV 18 (test code = 68431) NEGATIVE HPV, HR, OTHER GENOTYPES (test code NEGATIVE = 84717) PAP TEST, THINPREP, [id number] 00:00:00 Test Item Value Reference Range Interpretation Comments SOURCE: (test code = Cervical/Endocervical 8001) SLIDES: (test code = 1 8011) LMP: (test code = 8021) SEE NOTE SPECIMEN ADEQUACY: (test (NOTE) code = 85688) INTERPRETATION: (test NILM/NO EPITH. code = 75198) ABNORMALITY;SEE BELOW OTHER COMMENTS: (test (NOTE) code = 8081) ORDER TAKERS SUPERVISOR: (test LIGIA Haile (ASCP) code = 8101) LOCATION: (test code = (NOTE) 20497) CPT: (test code = 8140) (NOTE) PAP TEST, THINPREP, [id number] 00:00:00 Test Item Value Reference Range Interpretation Comments SOURCE: (test code = Cervical/Endocervical 8001) SLIDES: (test code = 1 8011) LMP: (test code = 8021) SEE NOTE SPECIMEN ADEQUACY: (test (NOTE) code = 25445) INTERPRETATION: (test NILM/NO EPITH. code = 56861) ABNORMALITY;SEE BELOW OTHER COMMENTS: (test (NOTE) code = 8081) ORDER TAKERS SUPERVISOR: (test LIGIA Haile (ASCP) code = 8101) LOCATION: (test code = (NOTE) 62395) CPT: (test code = 8140) (NOTE) HPV HIGH RISK WITH GENOTYPE, [id number] 00:00:00 Test Item Value Reference Range Interpretation Comments HPV HIGH RISK INTERP (test code = NEGATIVE 79775) HPV 16 (test code = 56455) NEGATIVE HPV 18 (test code = 69096) NEGATIVE HPV, HR, OTHER GENOTYPES (test code NEGATIVE = 80787) HPV HIGH RISK WITH GENOTYPE, [id number] 00:00:00 Test Item Value Reference Range Interpretation Comments HPV HIGH RISK INTERP (test code = NEGATIVE 68360) HPV 16 (test code = 19266) NEGATIVE HPV 18 (test code = 77712) NEGATIVE HPV, HR, OTHER GENOTYPES (test code NEGATIVE = 99536) PAP TEST, THINPREP, [id number] 00:00:00 Test Item Value Reference Range Interpretation Comments SOURCE: (test code = Cervical/Endocervical 8001) SLIDES: (test code = 1 8011) LMP: (test code = 8021) SEE NOTE SPECIMEN ADEQUACY: (test (NOTE) code = 26360) INTERPRETATION: (test NILM/NO EPITH. code = 00594) ABNORMALITY;SEE BELOW OTHER COMMENTS: (test (NOTE) code = 8081) ORDER TAKERS SUPERVISOR: (test Yoselin Enrique CT (ASCP) code = 8101) LOCATION: (test code = (NOTE) 88470) CPT: (test code = 8140) (NOTE) PAP TEST, THINPREP, [id number] 00:00:00 Test Item Value Reference Range Interpretation Comments SOURCE: (test code = Cervical/Endocervical 8001) SLIDES: (test code = 1 8011) LMP: (test code = 8021) SEE NOTE SPECIMEN ADEQUACY: (test (NOTE) code = 42607) INTERPRETATION: (test NILM/NO EPITH. code = 92862) ABNORMALITY;SEE BELOW OTHER COMMENTS: (test (NOTE) code = 8081) ORDER TAKERS SUPERVISOR: (test Yoselin Enrique CT (ASCP) code = 8101) LOCATION: (test code = (NOTE) 71859) CPT: (test code = 8140) (NOTE) HPV HIGH RISK WITH GENOTYPE, [id number] 00:00:00 Test Item Value Reference Range Interpretation Comments HPV HIGH RISK INTERP (test code = NEGATIVE 81959) HPV 16 (test code = 26467) NEGATIVE HPV 18 (test code = 55069) NEGATIVE HPV, HR, OTHER GENOTYPES (test code NEGATIVE = 70639) HPV HIGH RISK WITH GENOTYPE, [id number] 00:00:00 Test Item Value Reference Range Interpretation Comments HPV HIGH RISK INTERP (test code = NEGATIVE 74705) HPV 16 (test code = 18479) NEGATIVE HPV 18 (test code = 46566) NEGATIVE HPV, HR, OTHER GENOTYPES (test code NEGATIVE = 31697) PAP TEST, THINPREP, [id number] 00:00:00 Test Item Value Reference Range Interpretation Comments SOURCE: (test code = Cervical/Endocervical 8001) SLIDES: (test code = 1 8011) LMP: (test code = 8021) SEE NOTE SPECIMEN ADEQUACY: (test (NOTE) code = 75290) INTERPRETATION: (test NILM/NO EPITH. code = 40406) ABNORMALITY;SEE BELOW OTHER COMMENTS: (test (NOTE) code = 8081) ORDER TAKERS SUPERVISOR: (test Yoselin Klaus CT (ASCP) code = 8101) LOCATION: (test code = (NOTE) 05544) CPT: (test code = 8140) (NOTE) PAP TEST, THINPREP, [id number] 00:00:00 Test Item Value Reference Range Interpretation Comments SOURCE: (test code = Cervical/Endocervical 8001) SLIDES: (test code = 1 8011) LMP: (test code = 8021) SEE NOTE SPECIMEN ADEQUACY: (test (NOTE) code = 29307) INTERPRETATION: (test NILM/NO EPITH. code = 20725) ABNORMALITY;SEE BELOW OTHER COMMENTS: (test (NOTE) code = 8081) ORDER TAKERS SUPERVISOR: (test Yoselinrolly Enrique CT (ASCP) code = 8101) LOCATION: (test code = (NOTE) 65640) CPT: (test code = 8140) (NOTE) HPV HIGH RISK WITH GENOTYPE, [id number] 00:00:00 Test Item Value Reference Range Interpretation Comments HPV HIGH RISK INTERP (test code = NEGATIVE 26848) HPV 16 (test code = 61749) NEGATIVE HPV 18 (test code = 27083) NEGATIVE HPV, HR, OTHER GENOTYPES (test code NEGATIVE = 17629) HPV HIGH RISK WITH GENOTYPE, [id number] 00:00:00 Test Item Value Reference Range Interpretation Comments HPV HIGH RISK INTERP (test code = NEGATIVE 37052) HPV 16 (test code = 25673) NEGATIVE HPV 18 (test code = 06419) NEGATIVE HPV, HR, OTHER GENOTYPES (test code NEGATIVE = 71922) PAP TEST, THINPREP, [id number] 00:00:00 Test Item Value Reference Range Interpretation Comments SOURCE: (test code = Cervical/Endocervical 8001) SLIDES: (test code = 1 8011) LMP: (test code = 8021) SEE NOTE SPECIMEN ADEQUACY: (test (NOTE) code = 50448) INTERPRETATION: (test NILM/NO EPITH. code = 65935) ABNORMALITY;SEE BELOW OTHER COMMENTS: (test (NOTE) code = 8081) ORDER TAKERS SUPERVISOR: (test Yoselin Enrique CT (ASCP) code = 8101) LOCATION: (test code = (NOTE) 40383) CPT: (test code = 8140) (NOTE) PAP TEST, THINPREP, [id number] 00:00:00 Test Item Value Reference Range Interpretation Comments SOURCE: (test code = Cervical/Endocervical 8001) SLIDES: (test code = 1 8011) LMP: (test code = 8021) SEE NOTE SPECIMEN ADEQUACY: (test (NOTE) code = 11925) INTERPRETATION: (test NILM/NO EPITH. code = 17575) ABNORMALITY;SEE BELOW OTHER COMMENTS: (test (NOTE) code = 8081) ORDER TAKERS SUPERVISOR: (test Yoselin Enrique CT (ASCP) code = 8101) LOCATION: (test code = (NOTE) 65275) CPT: (test code = 8140) (NOTE) HPV HIGH RISK WITH GENOTYPE, [id number] 00:00:00 Test Item Value Reference Range Interpretation Comments HPV HIGH RISK INTERP (test code = NEGATIVE 91956) HPV 16 (test code = 49906) NEGATIVE HPV 18 (test code = 59816) NEGATIVE HPV, HR, OTHER GENOTYPES (test code NEGATIVE = 82704) HPV HIGH RISK WITH GENOTYPE, [id number] 00:00:00 Test Item Value Reference Range Interpretation Comments HPV HIGH RISK INTERP (test code = NEGATIVE 61654) HPV 16 (test code = 95220) NEGATIVE HPV 18 (test code = 07524) NEGATIVE HPV, HR, OTHER GENOTYPES (test code NEGATIVE = 46189) PAP TEST, THINPREP, [id number] 00:00:00 Test Item Value Reference Range Interpretation Comments SOURCE: (test code = Cervical/Endocervical 8001) SLIDES: (test code = 1 8011) LMP: (test code = 8021) SEE NOTE SPECIMEN ADEQUACY: (test (NOTE) code = 86116) INTERPRETATION: (test NILM/NO EPITH. code = 15375) ABNORMALITY;SEE BELOW OTHER COMMENTS: (test (NOTE) code = 8081) ORDER TAKERS SUPERVISOR: (test Yoselin Enrique CT (ASCP) code = 8101) LOCATION: (test code = (NOTE) 73150) CPT: (test code = 8140) (NOTE) PAP TEST, THINPREP, [id number] 00:00:00 Test Item Value Reference Range Interpretation Comments SOURCE: (test code = Cervical/Endocervical 8001) SLIDES: (test code = 1 8011) LMP: (test code = 8021) SEE NOTE SPECIMEN ADEQUACY: (test (NOTE) code = 55761) INTERPRETATION: (test NILM/NO EPITH. code = 64645) ABNORMALITY;SEE BELOW OTHER COMMENTS: (test (NOTE) code = 8081) ORDER TAKERS SUPERVISOR: (test Yoselin Enrique CT (ASCP) code = 8101) LOCATION: (test code = (NOTE) 49130) CPT: (test code = 8140) (NOTE) HPV HIGH RISK WITH GENOTYPE, [id number] 00:00:00 Test Item Value Reference Range Interpretation Comments HPV HIGH RISK INTERP (test code = NEGATIVE 90340) HPV 16 (test code = 21883) NEGATIVE HPV 18 (test code = 11452) NEGATIVE HPV, HR, OTHER GENOTYPES (test code NEGATIVE = 11154) HPV HIGH RISK WITH GENOTYPE, [id number] 00:00:00 Test Item Value Reference Range Interpretation Comments HPV HIGH RISK INTERP (test code = NEGATIVE 99334) HPV 16 (test code = 95333) NEGATIVE HPV 18 (test code = 64587) NEGATIVE HPV, HR, OTHER GENOTYPES (test code NEGATIVE = 39927) PAP TEST, THINPREP, [id number] 00:00:00 Test Item Value Reference Range Interpretation Comments SOURCE: (test code = Cervical/Endocervical 8001) SLIDES: (test code = 1 8011) LMP: (test code = 8021) SEE NOTE SPECIMEN ADEQUACY: (test (NOTE) code = 41763) INTERPRETATION: (test NILM/NO EPITH. code = 29455) ABNORMALITY;SEE BELOW OTHER COMMENTS: (test (NOTE) code = 8081) ORDER TAKERS SUPERVISOR: (test Yoselin Klaus CT (ASCP) code = 8101) LOCATION: (test code = (NOTE) 66948) CPT: (test code = 8140) (NOTE) PAP TEST, THINPREP, [id number] 00:00:00 Test Item Value Reference Range Interpretation Comments SOURCE: (test code = Cervical/Endocervical 8001) SLIDES: (test code = 1 8011) LMP: (test code = 8021) SEE NOTE SPECIMEN ADEQUACY: (test (NOTE) code = 24913) INTERPRETATION: (test NILM/NO EPITH. code = 27040) ABNORMALITY;SEE BELOW OTHER COMMENTS: (test (NOTE) code = 8081) ORDER TAKERS SUPERVISOR: (test Yoselinrolly Enrique CT (ASCP) code = 8101) LOCATION: (test code = (NOTE) 14012) CPT: (test code = 8140) (NOTE) PAP TEST, THINPREP, [id number] 00:00:00 Test Item Value Reference Range Interpretation Comments SOURCE: (test code = Cervical/Endocervical 8001) SLIDES: (test code = 1 8011) LMP: (test code = 8021) SEE NOTE SPECIMEN ADEQUACY: (test (NOTE) code = 20054) INTERPRETATION: (test NILM/NO EPITH. code = 78051) ABNORMALITY;SEE BELOW OTHER COMMENTS: (test (NOTE) code = 8081) ORDER TAKERS SUPERVISOR: (test Yoselin Enrique CT (ASCP) code = 8101) LOCATION: (test code = (NOTE) 66408) CPT: (test code = 8140) (NOTE) HPV HIGH RISK WITH GENOTYPE, [id number] 00:00:00 Test Item Value Reference Range Interpretation Comments HPV HIGH RISK INTERP (test code = NEGATIVE 80154) HPV 16 (test code = 85020) NEGATIVE HPV 18 (test code = 40624) NEGATIVE HPV, HR, OTHER GENOTYPES (test code NEGATIVE = 57170) HPV HIGH RISK WITH GENOTYPE, [id number] 00:00:00 Test Item Value Reference Range Interpretation Comments HPV HIGH RISK INTERP (test code = NEGATIVE 60444) HPV 16 (test code = 75397) NEGATIVE HPV 18 (test code = 58489) NEGATIVE HPV, HR, OTHER GENOTYPES (test code NEGATIVE = 18568) HPV HIGH RISK WITH GENOTYPE, [id number] 00:00:00 Test Item Value Reference Range Interpretation Comments HPV HIGH RISK INTERP (test code = NEGATIVE 36404) HPV 16 (test code = 13635) NEGATIVE HPV 18 (test code = 33577) NEGATIVE HPV, HR, OTHER GENOTYPES (test code NEGATIVE = 67057) SARS-CoV-2 (COVID-19) by RT-PCR (HIGH RISK)2019-09-12 00:00:00 Test Item Value Reference Range Interpretation Comments SARS-CoV-2 INTERPRETATION (test NEGATIVE code = 74914) SOURCE (test code = 17105) NOT SPECIFIED SARS-CoV-2 (COVID-19) by RT-PCR (HIGH RISK)2019-09-12 00:00:00 Test Item Value Reference Range Interpretation Comments SARS-CoV-2 INTERPRETATION (test NEGATIVE code = 50455) SOURCE (test code = 88508) NOT SPECIFIED SARS-CoV-2 (COVID-19) by RT-PCR (HIGH RISK)2019-09-12 00:00:00 Test Item Value Reference Range Interpretation Comments SARS-CoV-2 INTERPRETATION (test NEGATIVE code = 60680) SOURCE (test code = 61113) NOT SPECIFIED SARS-CoV-2 (COVID-19) by RT-PCR (HIGH RISK)2019-09-12 00:00:00 Test Item Value Reference Range Interpretation Comments SARS-CoV-2 INTERPRETATION (test NEGATIVE code = 14681) SOURCE (test code = 40192) NOT SPECIFIED SARS-CoV-2 (COVID-19) by RT-PCR (HIGH RISK)2019-09-12 00:00:00 Test Item Value Reference Range Interpretation Comments SARS-CoV-2 INTERPRETATION (test NEGATIVE code = 09126) SOURCE (test code = 28938) NOT SPECIFIED SARS-CoV-2 (COVID-19) by RT-PCR (HIGH RISK)2019-09-12 00:00:00 Test Item Value Reference Range Interpretation Comments SARS-CoV-2 INTERPRETATION (test NEGATIVE code = 01021) SOURCE (test code = 08327) NOT SPECIFIED SARS-CoV-2 (COVID-19) by RT-PCR (HIGH RISK)2019-09-12 00:00:00 Test Item Value Reference Range Interpretation Comments SARS-CoV-2 INTERPRETATION (test NEGATIVE code = 39636) SOURCE (test code = 93756) NOT SPECIFIED SARS-CoV-2 (COVID-19) by RT-PCR (HIGH RISK)2019-09-12 00:00:00 Test Item Value Reference Range Interpretation Comments SARS-CoV-2 INTERPRETATION (test NEGATIVE code = 78669) SOURCE (test code = 06284) NOT SPECIFIED SARS-CoV-2 (COVID-19) by RT-PCR (HIGH RISK)2019-09-12 00:00:00 Test Item Value Reference Range Interpretation Comments SARS-CoV-2 INTERPRETATION (test NEGATIVE code = 46132) SOURCE (test code = 27213) NOT SPECIFIED SARS-CoV-2 (COVID-19) by RT-PCR (HIGH RISK)2019-09-12 00:00:00 Test Item Value Reference Range Interpretation Comments SARS-CoV-2 INTERPRETATION (test NEGATIVE code = 26723) SOURCE (test code = 24434) NOT SPECIFIED SARS-CoV-2 (COVID-19) by RT-PCR (HIGH RISK)2019-09-12 00:00:00 Test Item Value Reference Range Interpretation Comments SARS-CoV-2 INTERPRETATION (test NEGATIVE code = 71317) SOURCE (test code = 63441) NOT SPECIFIED SARS-CoV-2 (COVID-19) by RT-PCR (HIGH RISK)2019-09-12 00:00:00 Test Item Value Reference Range Interpretation Comments SARS-CoV-2 INTERPRETATION (test NEGATIVE code = 42419) SOURCE (test code = 16509) NOT SPECIFIED SARS-CoV-2 (COVID-19) by RT-PCR (HIGH RISK)2019-09-12 00:00:00 Test Item Value Reference Range Interpretation Comments SARS-CoV-2 INTERPRETATION (test NEGATIVE code = 28066) SOURCE (test code = 16709) NOT SPECIFIED SARS-CoV-2 (COVID-19) by RT-PCR (HIGH RISK)2019-09-12 00:00:00 Test Item Value Reference Range Interpretation Comments SARS-CoV-2 INTERPRETATION (test NEGATIVE code = 62510) SOURCE (test code = 07518) NOT SPECIFIED SARS-CoV-2 (COVID-19) by RT-PCR (HIGH RISK)2019-09-12 00:00:00 Test Item Value Reference Range Interpretation Comments SARS-CoV-2 INTERPRETATION (test NEGATIVE code = 64063) SOURCE (test code = 62955) NOT SPECIFIED SARS-CoV-2 (COVID-19) by RT-PCR (HIGH RISK)2019-09-12 00:00:00 Test Item Value Reference Range Interpretation Comments SARS-CoV-2 INTERPRETATION (test NEGATIVE code = 60159) SOURCE (test code = 45948) NOT SPECIFIED SARS-CoV-2 (COVID-19) by RT-PCR (HIGH RISK)2019-09-12 00:00:00 Test Item Value Reference Range Interpretation Comments SARS-CoV-2 INTERPRETATION (test NEGATIVE code = 55975) SOURCE (test code = 77895) NOT SPECIFIED SARS-CoV-2 (COVID-19) by RT-PCR (HIGH RISK)2019-09-12 00:00:00 Test Item Value Reference Range Interpretation Comments SARS-CoV-2 INTERPRETATION (test NEGATIVE code = 00685) SOURCE (test code = 47627) NOT SPECIFIED SARS-CoV-2 (COVID-19) by RT-PCR (HIGH RISK)2019-09-12 00:00:00 Test Item Value Reference Range Interpretation Comments SARS-CoV-2 INTERPRETATION (test NEGATIVE code = 49539) SOURCE (test code = 84976) NOT SPECIFIED SARS-CoV-2 (COVID-19) by RT-PCR (HIGH RISK)2019-09-12 00:00:00 Test Item Value Reference Range Interpretation Comments SARS-CoV-2 INTERPRETATION (test NEGATIVE code = 31035) SOURCE (test code = 04311) NOT SPECIFIED SARS-CoV-2 (COVID-19) by RT-PCR (HIGH RISK)2019-09-12 00:00:00 Test Item Value Reference Range Interpretation Comments SARS-CoV-2 INTERPRETATION (test NEGATIVE code = 87816) SOURCE (test code = 42418) NOT SPECIFIED"
[2022-03-05 02:36] LABS: Absolute Lymphocytes (CBC) 1.6 K/uL (0.7-4.9); Hematocrit 44.4 % (36.0-45.0); Lymphocytes % 13.3 % (15.3-44.8); MCV 90.9 fL (80-100); MPV 7.9 fL (7.6-11.3); RBC Red Blood Cell Count 4.88 M/uL (3.86-4.86)
[2022-03-05 02:42] LABS: Albumin 3.1 g/dL (3.4-5.0); Bilirubin Total 0.6 mg/dL (0.2-1.0); Potassium 3.4 mmol/L (3.5-5.1); Protein, Total 6.4 g/dL (6.4-8.2)
[2022-03-05 02:54] LABS: Troponin High Sensitivity 137.9 pg/mL (<58.9)
[2022-03-05] MEDS ORDERED: Levofloxacin 750mg IV 750 MG/150 ML BAG IV ONE (03:19)
[2022-03-05 04:15] LABS: Blood Morphology Comment NOT SEEN (NOT SEEN); Platelet Estimate ADEQ
[2022-03-05 04:37] LABS: SARS-COV-2 RT PCR NEGATIVE (NEGATIVE)
--- NOTE | 2022-03-05 04:52 | ER ---
Nurse's Notes [facility] Name: Jessica Wong Age: 56 yrs Sex: Female : 1965 Arrival Date: 03/05/2022 Time: 01:25 Bed 3 Private MD: Diagnosis: Acute respiratory failure with hypoxia;Acute pulmonary edema Presentation: 03/05 01:29 Chief complaint: EMS states: they were toned out for report of pt with breathing bb difficulty pt's sats were in the 70s on their arrival. Coronavirus screen: Client presents with at least one sign or symptom that may indicate coronavirus-19. Ebola Screen: No symptoms or risks identified at this time. Initial Sepsis Screen: Does the patient meet any 2 criteria? RR > 20 per min. HR > 90 bpm. Yes Does the patient have a suspected source of infection? Yes: Productive cough/pneumonia. Risk Assessment: Do you want to hurt yourself or someone else? Patient reports no desire to harm self or others. Onset of symptoms was December 2021. 01:29 Method Of Arrival: EMS: [facility] bb :29 Acuity: [place] 2 bb 01:34 Note pt states she has been feeling SOB for a couple of weeks but took lorazepam bb tonight then couldn't breath symptoms started a couple of weeks ago but worsened after the lorazepam also pt states she took 2 nitro before arriving. Triage Assessment: 01:30 General: Appears distressed, obese, Behavior is anxious. Pain: Denies pain. Neuro: vc1 Level of Consciousness is awake, obeys commands, Oriented to person, place, time, situation. Cardiovascular: Patient's skin is warm and dry. Respiratory: Airway is patent Respiratory effort is even, labored, Respiratory pattern is tachypnea. GI: No deficits noted. : No deficits noted. Derm: No deficits noted. Musculoskeletal: No deficits noted. Historical: - Allergies: :33 Codeine; bb 01:33 PENICILLINS; bb - PMHx: 01:33 Cancer; CHF; bb - Immunization history:: Client reports having NOT received the Covid vaccine. - Social history:: Smoking status: unknown. - Family history:: not pertinent. Screenin:23 Abuse screen: Denies threats or abuse. Nutritional screening: No deficits noted. vc1 Tuberculosis screening: No symptoms or risk factors identified. Fall Risk None identified. Assessment: 02:30 Reassessment: Patient and/or family updated on plan of care and expected duration. Pain vc1 level reassessed. Patient states symptoms have improved. 03:30 Reassessment: No changes from previously documented assessment. Patient and/or family vc1 updated on plan of care and expected duration. Pain level reassessed. 04:30 Reassessment: Patient and/or family updated on plan of care and expected duration. Pain vc1 level reassessed. Patient states feeling better. Patient states symptoms have improved. 05:25 Reassessment: No changes from previously documented assessment. Patient and/or family vc1 updated on plan of care and expected duration. Pain level reassessed. Vital Signs: 01:29 BP 107 / 73; Pulse 102; Resp 34 S; Temp 97.7(O); Pulse Ox 95% on 15% Non-rebreather bb mask; Weight 102.06 kg (R); Height 5 ft. 2 in. (157.48 cm) (R); Pain 0/10; 01:30 BP 116 / 81; Pulse 81; Resp 33; Pulse Ox 97% on BiPAP; vc1 02:30 BP 102 / 54; Pulse 86; Resp 28; Pulse Ox 97% on BiPAP; vc1 03:17 BP 94 / 59; Pulse 78; Resp 28; Pulse Ox 94% on BiPAP; vc1 04:00 BP 90 / 58; Pulse 70; Resp 27; Pulse Ox 100% ; vc1 05:15 BP 102 / 65; Pulse 70; Resp 26; Pulse Ox 98% on 3 lpm NC; vc1 01:29 Body Mass Index 41.15 (102.06 kg, 157.48 cm) bb ED Course: 01:25 Patient arrived in ED. vc1 01:25 Jose Alvarez MD is Attending Physician. rt 01:33 Triage completed. bb 01:33 Arm band placed on Patient placed in an exam room, on a stretcher, on oxygen, on bb satellite project site monitor, on pulse oximetry. 01:40 Inserted saline lock: 20 gauge in right wrist, using aseptic technique. Blood vc1 collected. Patient admitted, IV remains in place. 01:45 Patient has correct armband on for positive identification. Bed in low position. Call vc1 light in reach. Client placed on continuous cardiac and pulse oximetry monitoring. NIBP monitoring applied. 01:46 Chest Single View XRAY In Process Unspecified. EDMS 02:29 Evelina Reaves, CALI is Primary Nurse. vc1 03:53 Chest For Pe Angio In Process Unspecified. EDMS 04:52 Yefri Bhardwaj MD is Hospitalizing Provider. rt 05:56 No provider procedures requiring assistance completed. vc1 Administered Medications: 02:00 Drug: Albuterol 7.5 mg Route: Inhalation; vc1 02:00 Drug: Ipratropium Aerosol 0.5 mg Route: Inhalation; vc1 02:00 Drug: SOLU-Medrol (methylPREDNISolone sodium succinate) 125 mg Route: IM; Site: vc1 affected area; 05:32 Follow up: Response: No adverse reaction; Marked relief of symptoms vc1 03:30 Drug: LevaQUIN (levofloxacin) 750 mg Route: IVPB; Site: right wrist; vc1 05:31 Follow up: IV Status: Completed infusion; IV Intake: 100ml vc1 Medication: 05:24 VIS not applicable for this client. vc1 Intake: 05:31 IV: 100ml; Total: 100ml. vc1 Outcome: 04:51 Discharge ordered by . rt 04:53 Decision to Hospitalize by Provider. rt 05:56 Admitted to accompanied by tech, with oxygen, with chart, Report called to cali spann vc1 05:56 Condition: good 05:56 Instructed on the need for admit. 06:12 Patient left the ED. vc1 Signatures: Dispatcher [employer] EDRoxana Lopez RN RN bb Evelina Reaves RN RN vc1 Jose Alvarez MD MD rt Corrections: (The following items were deleted from the chart) 05:31 04:00 BP 102 / 65; Pulse 70bpm; Resp 26bpm; Pulse Ox 98% 3 lpm Nasal Cannula; vc1 vc1
--- NOTE | 2022-03-05 04:52 | EDPHYS ---
Physician Documentation [facility] Name: Jessica Wong Age: 56 yrs Sex: Female : 1965 Arrival Date: 03/05/2022 Time: 01:25 Bed 3 Private MD: ED Physician Jose Alvarez HPI: 03/05 01:46 This 56 yrs old Female presents to ER via EMS with complaints of Shortness of breath. rt 01:46 The patient has shortness of breath at rest. Onset: The symptoms/episode began/occurred rt 3 hour(s) ago. Duration: The symptoms are continuous. The patient's shortness of breath is aggravated by nothing, is alleviated by application of supplemental oxygen. Associated signs and symptoms: The patient has no apparent associated signs or symptoms. Severity of symptoms: At their worst the symptoms were severe. Patient with reported history of COPD presents to the ED with acute onset of dyspnea that she states occurred after taking a lorazepam. Symptoms were improving with treatment by EMS. Her room air oxygen saturations were reportedly 70. Denies chest pain, other complaints. Symptoms are severe in severity, no other aggravating leaving factors.. Historical: - Allergies: 01:33 Codeine; bb 01:33 PENICILLINS; bb - PMHx: 01:33 Cancer; CHF; bb - Immunization history:: Client reports having NOT received the Covid vaccine. - Social history:: Smoking status: unknown. - Family history:: not pertinent. ROS: 01:46 Constitutional: Negative for fever, chills, and weight loss, Eyes: Negative for injury, rt pain, redness, and discharge, ENT: Negative for injury, pain, and discharge, Neck: Negative for injury, pain, and swelling, Cardiovascular: Negative for chest pain, palpitations, and edema, Abdomen/GI: Negative for abdominal pain, nausea, vomiting, diarrhea, and constipation, Back: Negative for injury and pain, MS/Extremity: Negative for injury and deformity, Skin: Negative for injury, rash, and discoloration, Neuro: Negative for headache, weakness, numbness, tingling, and seizure, Psych: Negative for depression, anxiety, suicide ideation, homicidal ideation, and hallucinations. 01:46 Respiratory: Positive for cough, shortness of breath. Exam: 01:46 Head/Face: Normocephalic, atraumatic. Eyes: Pupils equal round and reactive to light, rt extra-ocular motions intact. Lids and lashes normal. Conjunctiva and sclera are non-icteric and not injected. Cornea within normal limits. Periorbital areas with no swelling, redness, or edema. Chest/axilla: Normal chest wall appearance and motion. Nontender with no deformity. No lesions are appreciated. Cardiovascular: Regular rate and rhythm with a normal S1 and S2. No gallops, murmurs, or rubs. Normal PMI, no JVD. No pulse deficits. Abdomen/GI: Soft, non-tender, with normal bowel sounds. No distension or tympany. No guarding or rebound. No evidence of tenderness throughout. Skin: Warm, dry with normal turgor. Normal color with no rashes, no lesions, and no evidence of cellulitis. MS/ Extremity: Pulses equal, no cyanosis. Neurovascular intact. Full, normal range of motion. Neuro: Awake and alert, GCS 15, oriented to person, place, time, and situation. Cranial nerves II-XII grossly intact. Motor strength 5/5 in all extremities. Sensory grossly intact. Cerebellar exam normal. Normal gait. Psych: Awake, alert, with orientation to person, place and time. Behavior, mood, and affect are within normal limits. 01:46 Constitutional: The patient appears diaphoretic, in obvious distress, moderately distressed. 01:46 Respiratory: Tripoding, wheezes, decreased breath sounds on all lung rodriguez. 02:08 ECG was reviewed by the Attending Physician. rt Vital Signs: 01:29 BP 107 / 73; Pulse 102; Resp 34 S; Temp 97.7(O); Pulse Ox 95% on 15% Non-rebreather bb mask; Weight 102.06 kg (R); Height 5 ft. 2 in. (157.48 cm) (R); Pain 0/10; 01:30 BP 116 / 81; Pulse 81; Resp 33; Pulse Ox 97% on BiPAP; vc1 02:30 BP 102 / 54; Pulse 86; Resp 28; Pulse Ox 97% on BiPAP; vc1 03:17 BP 94 / 59; Pulse 78; Resp 28; Pulse Ox 94% on BiPAP; vc1 04:00 BP 90 / 58; Pulse 70; Resp 27; Pulse Ox 100% ; vc1 05:15 BP 102 / 65; Pulse 70; Resp 26; Pulse Ox 98% on 3 lpm NC; vc1 01:29 Body Mass Index 41.15 (102.06 kg, 157.48 cm) bb MDM: 01:27 Patient medically screened. rt 05:42 Differential diagnosis: Anemia CHF exacerbation, Chronic Obstructive Pulmonary Disease rt pneumonia, Pneumothorax Pulmonary Embolism. Data reviewed: vital signs, nurses notes, old medical records, lab test result(s), EKG, radiologic studies. ED course: Patient presents to the ED with respiratory distress, is noted be significantly hypoxic quiring BiPAP. Patient's chest x-ray is most consistent with an edema, clinical presentation was consistent with COPD. X-ray and CT scan do not show a pneumonia. With the patient's lactic acidosis is due to work of breathing rather than sepsis. I believe that aggressive fluid resuscitation is likely to worsen the patient's respiratory status, possibly leading to intubation, therefore, I elected to not give the patient significant IV fluids as to prevent this harm. Patient was able to be successfully transitioned to nasal cannula. She will be admitted for further care.. 03/05 01:27 Order name: CBC with Diff; Complete Time: 04:38 rt 03/05 01:27 Order name: CMP; Complete Time: 02:55 rt 03/05 01:27 Order name: Troponin High Sensitivity; Complete Time: 02:55 rt 03/05 01:27 Order name: BNP; Complete Time: 02:55 rt 03/05 01:27 Order name: ABG; Complete Time: 02:07 rt 03/05 01:35 Order name: Lactate w/ 2H reflex if indic.; Complete Time: 03:01 rt 03/05 01:27 Order name: Chest Single View XRAY rt 03/05 01:27 Order name: BIPAP rt 03/05 01:35 Order name: Blood Culture Adult (2) rt 03/05 03:03 Order name: Manual Differential; Complete Time: 04:38 EDMS 03/05 03:09 Order name: Chest For Pe Angio EDMS 03/05 03:32 Order name: COVID-19/FLU A+B; Complete Time: 04:38 sb4 03/05 01:27 Order name: EKG; Complete Time: 01:28 rt 03/05 01:27 Order name: EKG - Nurse/Tech; Complete Time: 02:29 rt EC:08 Rate is 79 beats/min. Rhythm is irregularly irregular, A fib with No ectopy. QT rt interval is normal. No Q waves. Interpreted by me. Administered Medications: 02:00 Drug: Albuterol 7.5 mg Route: Inhalation; vc1 02:00 Drug: Ipratropium Aerosol 0.5 mg Route: Inhalation; vc1 02:00 Drug: SOLU-Medrol (methylPREDNISolone sodium succinate) 125 mg Route: IM; Site: vc1 affected area; 05:32 Follow up: Response: No adverse reaction; Marked relief of symptoms vc1 03:30 Drug: LevaQUIN (levofloxacin) 750 mg Route: IVPB; Site: right wrist; vc1 05:31 Follow up: IV Status: Completed infusion; IV Intake: 100ml vc1 Disposition: 05:42 Critical Care:. rt Disposition Summary: 03/05/22 04:53 Hospitalization Ordered Hospitalization Status: Inpatient Admission rt Provider: Yefri Bhardwaj rt Condition: Serious(03/05/22 04:53) rt Problem: an acute exacerbation(03/05/22 04:53) rt Symptoms: have improved(03/05/22 04:53) rt Bed/Room Type: Standard rt Location: Intensive Care Unit(03/05/22 05:09) Room Assignment: 6-(03/05/22 05:09) Diagnosis - Acute respiratory failure with hypoxia(03/05/22 04:53) rt - Acute pulmonary edema(03/05/22 04:53) rt Forms: - Medication Reconciliation Form rt - SBAR form rt Critical care time excluding procedures: 05:42 Critical care time: Bedside Care: 35 minutes, Consultation: 10 minutes. Total time: 45 rt minutes Signatures: Dispatcher [employer] EDMS Yolette Cotto RN RN mw Roxana Marquez RN RN bb Evelina Reaves RN RN vc1 Olga Wu PA-C PA-C sb4 Jose Alvarez MD MD rt Corrections: (The following items were deleted from the chart) 04:52 04:51 Home rt rt 04:52 04:51 new rt rt 04:52 04:51 have improved rt rt 04:52 04:51 Serious rt rt 04:52 04:51 Acute respiratory failure with hypoxia rt rt 04:52 04:51 Acute pulmonary edema rt rt 05:09 04:53 Telemetry/MedSurg (Inpatient) rt mw 05:09 04:53 rt mw
--- NOTE | 2022-03-05 05:18 | P.HP ---
Certification for Inpatient Patient admitted to: Inpatient With expected LOS: >2 Midnights Patient will require the following post-hospital care: None Practitioner: I am a practitioner with admitting privileges, knowledge of patient current condition, hospital course, and medical plan of care. Services: Services provided to patient in accordance with Admission requirements found in Title 42 Section 412.3 of the Code of Federal Regulations Patient History Date of Service: 03/05/22 Reason for admission: Acute CHF History of Present Illness: Patient is a 56 year old female with past medical history of bipolar disorder, COPD, diastolic CHF and atrial fibrillation who presented to the ED via EMS with complaints of sudden onset of shortness of breath. She was noted to be saturating 70% on RA upon arrival to ED and placed on bipap. ABG with pH of 7.25, pO2 125, pCO2 42, HCO3 17.4. Labs significant for WBC 12 with left shift, AST 168, ALT 248, trop HS 137.9, BNP 1333, lactate 4. Covid/flu negative. Chest xray showed "Bibasilar interstitial opacities concerning for pneumonia, edema or effusion." Chest CT angio showed "Scattered groundglass opacities. Groundglass opacification is a nonspecific finding and not necessarily indicative of significant pathology. However, in the appropriate clinical setting, pulmonary edema, pneumonia, or atypical infectious process to include viral pneumonitis should be considered." She was given breathing treatments, solumedrol, and levaquin in the ED. Patient has improved and is now tolerating 3L NC. She is ad mitted for further management. Allergies codeine Allergy (Unverified 02/04/17 08:10) Unknown Penicillins Allergy (Unverified 02/04/17 08:10) Unknown Home medications list reviewed: Yes - Past Medical/Surgical History Diabetic: No -: Bipolar Disorder -: Atrial Fibrillation -: Diastolic CHF -: Hyperlipidemia -: Hodgkin's Lymphoma (1996) -: COPD -: x 2 -: Appendectomy Psychosocial/ Personal History: Patient lives at home. She has a son. - Family History Family History: Reviewed- Non-Contributory - Social History Smoking Status: Current every day smoker Alcohol use: No CD- Drugs: No Caffeine use: Yes Place of Residence: Home Review of Systems Respiratory: Cough, Shortness of Breath Physical Examination - Vital Signs Temperature: 97.7 F Blood Pressure: 90/58 Pulse: 70 Respirations: 27 Pulse Ox (%): 100 (3L NC) - Physical Exam General: Alert, In no apparent distress, Obese HEENT: Atraumatic, PERRLA, EOMI, Sclerae nonicteric Neck: Supple, 2+ carotid pulse no bruit, No LAD, Without JVD or thyroid abnormality Respiratory: Diminished Cardiovascular: Regular rate/rhythm, Normal S1 S2 Gastrointestinal: Normal bowel sounds, No tenderness Musculoskeletal: No tenderness Integumentary: No rashes Neurological: Normal speech, Normal strength at 5/5 x4 extr, Normal tone, Normal affect - Studies Laboratory Data (last 24 hrs) 03/05/22 01:51: Sodium 134 L, Potassium 3.4 L, BUN 26 H, Creatinine 1.23, Glucose 271 H, Total Bilirubin 0.6, AST 168 H, ALT 248 H, Alkaline Phosphatase 114 03/05/22 01:51: WBC 12.00 H, Hgb 14.9, Hct 44.4, Plt Count 355 Assessment and Plan - Problems (Diagnosis) (1) Acute CHF Current Visit: Yes Status: Acute Qualifiers: Heart failure type: combined systolic and diastolic Qualified Code(s): I50.41 - Acute combined systolic (congestive) and diastolic (congestive) heart failure (2) Atrial fibrillation Current Visit: Yes Status: Chronic Qualifiers: Atrial fibrillation type: paroxysmal Qualified Code(s): I48.0 - Paroxysmal atrial fibrillation (3) COPD (chronic obstructive pulmonary disease) Current Visit: Yes Status: Chronic Qualifiers: COPD type: emphysema Emphysema type: unspecified Qualified Code(s): J43.9 - Emphysema, unspecified (4) Bipolar disorder Current Visit: Yes Status: Chronic Qualifiers: Active/Remission status: currently active Current bipolar episode type: mixed Current episode severity: moderate Qualified Code(s): F31.62 - Bipolar disorder, current episode mixed, moderate - Plan Patient is admitted for further management. She will likely need diureses, but her BP is limiting that at the moment. Troponin is elevated and likely secondary to demand ischemia. Trend serial cardiac enzymes. Therapeutic lovenox q12h. Cardiology consult. Echo ordered. Aspirin and atorvastatin daily. Lipid panel and TSH pending. Titrate and wean O2 as tolerated. Smoking cessation advised. Patient reports smoking 1 pack/day. Nicotine patch offered. Do not think there is any indication for further antibiotics or steroids. Breathing treatments as needed. Initial lactate was elevated at 4. Repeat pending. Monitor and replete electrolytes per protocol. Reconcile and continue home medications. Lovenox for VTE prophylaxis. Full code. Patient was very hesitant to be admitted. She is eager to go home and go back to work. She does not want to stay longer than 1 day and will likely sign out AMA if she needs to stay longer. Advised her on the importance of staying in the hospital for further treatment. Discharge Plan: Home Plan to discharge in: Greater than 2 days - Advance Directives Does patient have a Living Will: No Does patient have a Durable POA for Healthcare: No - Code Status/Comfort Care Code Status Assessed: Yes Code Status: Full Code Physician Review: Patient Assessed, Agree with Above Assessment and Plan Critical Care: No Time Spent Managing Pts Care (In Minutes): 50
[2022-03-05] MEDS ORDERED: ASPIRIN EC 81 MG TAB PO ONE (05:29)
[2022-03-05] MEDS ORDERED: ALBUTEROL 2.5 MG/3 ML NEB SOL NEB PRN ×2 (05:55→15:00)
[2022-03-05] MEDS ORDERED: NA CHLORIDE 0.9% 250 ML IV PRN (05:55)
[2022-03-05] MEDS ORDERED: ONDANSETRON 4 MG/2 ML VIAL IV PRN (05:55)
[2022-03-05] MEDS ORDERED: FUROSEMIDE 20 MG/ 2ML VIAL IV ONE (05:55)
[2022-03-05] MEDS ORDERED: ACETAMINOPHEN 325 MG TABLET PO PRN (06:00)
[2022-03-05 07:30] VITALS: BMI 41.7
[2022-03-05] MEDS ORDERED: ENOXAPARIN 100 MG/ML SYR SQ SCH (07:45)
[2022-03-05 08:55] LABS: CKMB Creatine Kinase MB 5.6 ng/mL (1.0-3.6); Thyroid Stimulating Hormone 0.976 uIU/mL (0.360-3.740)
[2022-03-05] MEDS ORDERED: ASPIRIN EC 81 MG TAB PO SCH (09:00)
[2022-03-05 09:56] VITALS: O2SAT 93
[2022-03-05 10:21] LABS: Specific Gravity 1.013 (1.005-1.030); Urine Bilirubin NEGATIVE (Negative); Urine Blood Negative (Negative); Urine Clarity Clear (Clear); Urine Color Colorless (Yellow); Urine Glucose NEGATIVE (Negative); Urine Protein NEGATIVE (Negative); Urine Urobilinogen Normal (Normal); Urine pH 5.5 (5.0-7.0)
--- NOTE | 2022-03-05 13:13 | RAD REPORT ---
EXAM DESCRIPTION: CT - Chest For Pe Angio - 03/05/2022 6:58 am CLINICAL HISTORY: The patient is 56 years old and is Female; shortness of breath TECHNIQUE: Axial computed tomographic angiography images of the chest with intravenous contrast. S agittal and coronal reformatted images were created and reviewed. This CT exam was performed using one or more of the following dose reduction techniques: automated exposure control, adjustment of t he mA and/or kV according to patient size, and/or use of iterative reconstruction technique. MIP reconstructed images were created and reviewed. COMPARISON: No relevant prior studies available. FINDINGS: PULMONARY ARTERIES: The main pulmonary arteries and proximal pulmonary branches opacify normally and are without filling defect. AORTA: No acute findings. No thoracic aortic aneurysm. LUNGS: Few subtle groundglass opacities are noted specifically in the lower lobes with areas of l ikely atelectasis in the lingula and lower lobes. PLEURAL SPACE: Unremarkable. No significant effusion. No pneumothorax. HEART: Unremarkable. No cardiomegaly. No significant pericardial effusion. No evidence of R V dysfunction. BONES/JOINTS: No acute fracture. No dislocation. SOFT TISSUES: Unremarkable. LYMPH NODES: Unremarkable. No enlarged lymph nodes. IMPRESSION: 1. The main pulmonary arteries and proximal pulmonary branches opacify normally and ar e without filling defect. The remainder of the vessels are inadequately evaluated secondary to william on. 2. Scattered groundglass opacities. Groundglass opacification is a nonspecific finding and not nece ssarily indicative of significant pathology. However, in the appropriate clinical setting, pulmonary edema, pneumonia, or atypical infectious process to include viral pneumonitis should be considered. Electronically signed by: Jennifer Tee MD 03/05/2022 4:19 AM SENIOR PHP DEVELOPER Due to temporary technical issues with the PACS/Fluency reporting system, reports are being signed by the in house radiologists without review as a courtesy to insure prompt reporting. The interpreting radiologist is fully responsible for the content of the report.
--- NOTE | 2022-03-05 13:44 | EKG ---
Test Date: 2022-03-05 Test Time: 01:55:47 Box Spring Frame Builder: DOROTEO MEASUREMENT RESULTS: Intervals: Rate: 79 VT: QRSD: 172 QT: 432 QTc: 495 [place]: P: VT: QRS: -26 T: 96 INTERPRETIVE STATEMENTS: Atrial fibrillation Left bundle branch block Abnormal ECG Compared to ECG 02/04/2017 06:21:05 Sinus rhythm no longer present Electronically Signed On 03-05-22 13:43:20 FUEL MANAGER by Sedrick Palumbo
[2022-03-05] MEDS ORDERED: HOME MED [ALBUTEROL INHALER 60 PUFF/8 GM] IH PRN (18:45)
[2022-03-05 19:03] VITALS: BP 116/66; TEMP 97
[2022-03-05] MEDS ORDERED: ALBUTEROL 2.5 MG/3 ML NEB SOL NEB SCH (20:00)
[2022-03-05] MEDS ORDERED: IPRATROPIUM BROM 0.5MG/2.5ML IH SCH (20:00)
[2022-03-05] MEDS ORDERED: ALBUTEROL 2.5 MG/3 ML NEB SOL IH SCH (20:00)
--- NOTE | 2022-03-05 20:27 | CON ---
Date of Consultation: 03/05/2022 Reason For Consultation: Shortness of breath and heart failure. History Of Present Illness: The patient is a 56-year-old female with a history of bipolar disorder, COPD, congestive heart failure; diastolic, atrial fibrillation presented due to significant shortness of breath and she was hypoxic, was in acute respiratory failure and acute congestive heart failure. She apparently had upper respiratory tract infection for which she was given steroids recently, and that is when the shortness of breath started to increase. She denies having any chest pain. The connor mendez follows up with as her shaper and presser. Past Medical History: As outlined above in the HPI. Medications: Refer to reconciliation sheet for detailed list. Allergies: CODEINE, OXYCODONE, AND PENICILLIN. Family History: No premature coronary artery disease or cancer. Social History: She is a smoker, 1 pack per day. Does not drink, use any drugs. Review of Systems: All systems reviewed are negative except as mentioned in HPI. Physical Examination: Vital Signs: Reviewed. Head and Neck: Pupils are equal, reactive to light. Intact eye movements. Positive JVD. No cervic al lymphadenopathy. Neck: Supple. Thyroid is not enlarged. Lungs: There are crackles in both bases. No accessory muscle use or muscle retraction. Heart: Irregular rate and rhythm with aortic systolic ejection murmur. Abdomen: Soft, nontender. Bowel sounds positive. No organomegaly. No masses or hernia. Extremities: Edema 2+ pitting, bilaterally. No clubbing or cyanosis. Intact pulses. Skin: No rashes. Neurologic: Alert, awake, oriented x3. No acute focal events appreciated. Investigations: As to her troponin, initially it was 137, went up to 366. BUN is 26, creatinine 1.2 3. Assessment And Recommendation: 1.Acute congestive heart failure exacerbation. Ejection fraction is not known. I recommend echocar diogram, and the patient appears to be fluid overloaded still. I recommend at least one more day of IV diuretics, and monitor BUN, creatinine, electrolytes. Recommend Lasix 40 mg IV q.12 hours and obt ain an echocardiogram. 2.Elevated troponin. The patient has multiple risk factors. I recommend an exercise nuclear stress test and an echocardiogram tomorrow morning, and trend troponin until it trends down. In the interi m, put her on aspirin, and if the troponin goes up higher to significant levels, then I recommend IV heparin. 3.Dyslipidemia. Continue statin. SR/MODL Voice ID: [id number] Report ID: [id number]
[2022-03-05] MEDS ORDERED: ALBUTEROL SULFATE 1.25 MG/3 ML IH SCH (21:00)
[2022-03-05] MEDS ORDERED: HOME MED 1 EA UNK (Ipratropium/Albuterol Sulfate [Iprat-Albut 0.5-3(2.5) Mg/3 Ml] 3 ML Amp IH SCH (21:00)
[2022-03-05] MEDS ORDERED: LITHIUM CARBONATE 450 MG PO SCH (21:00)
[2022-03-05] MEDS ORDERED: DOXYCYCLINE 100 MG CAP PO SCH (21:00)
[2022-03-05] MEDS ORDERED: HOME MED 1 EA UNK (Benzonatate [Benzonatate] 200 MG Capsule) PO SCH (21:00)
[2022-03-05] MEDS ORDERED: DOXYCYCLINE HYCLATE 100 MG PO SCH (21:00)
[2022-03-05] MEDS ORDERED: BENZONATATE 100 MG CAP PO SCH (21:00)
[2022-03-05] MEDS ORDERED: ATORVASTATIN 40 MG TAB PO SCH (21:00)
--- NOTE | 2022-03-06 00:06 | P.DS ---
Discharge Date: 03/05/22 Disposition: ROUTINE DISCHARGE Discharge Condition: GOOD Reason for Admission: Acute CHF Brief History of Present Illness: Patient is a 56 year old female with past medical history of bipolar disorder, COPD, diastolic CHF and atrial fibrillation who presented to the ED via EMS with complaints of sudden onset of shortness of breath. She was noted to be saturating 70% on RA upon arrival to ED and placed on bipap. ABG with pH of 7.25, pO2 125, pCO2 42, HCO3 17.4. Labs significant for WBC 12 with left shift, AST 168, ALT 248, trop HS 137.9, BNP 1333, lactate 4. Covid/flu negative. Chest xray showed "Bibasilar interstitial opacities concerning for pneumonia, edema or effusion." Chest CT angio showed "Scattered groundglass opacities. Groundglass opacification is a nonspecific finding and not necessarily indicative of significant pathology. However, in the appropriate clinical setting, pulmonary edema, pneumonia, or atypical infectious process to include viral pneumonitis should be considered." She was given breathing treatments, solumedrol, and levaquin in the ED. Patient has improved and is now tolerating 3L NC. She is admitted for further management. Hospital Course: Patient feels her symptoms are related to taking promethazine liquid and Ativan. Patient is doing well and she is wanting to go home. Plan to discharge and she states she will follow-up with her histologic aide in 1 week. She has seen Dr. Scott and had complete cardiac workup which she states was unremarkable. She is wanting to go home and pursue outpt work-up. She denies chest pain. I advised her to follow up with Dr. Scott and make sure she does not need anything further done. She will also follow up with her PCP. Return to work with light duty and she would be a clear to go back with full duty once she follows up with her histologic aide. At this time, patient is stable for discharge home. Vital Signs/Physical Exam: Temp Pulse Resp BP Pulse Ox 97 F 78 25 H 116/66 93 03/05/22 16:00 03/05/22 16:00 03/05/22 12:00 03/05/22 16:00 03/05/22 16:00 General: Alert, In no apparent distress, Oriented x3 Laboratory Data at Discharge: WBC 12.00 K/uL (4.3-10.9) H 03/05/22 01:51 Hgb 14.9 g/dL (12.0-15.0) 03/05/22 01:51 Hct 44.4 % (36.0-45.0) 03/05/22 01:51 Plt Count 355 K/uL (152-406) 03/05/22 01:51 Sodium 134 mmol/L (136-145) L 03/05/22 01:51 Potassium 3.4 mmol/L (3.5-5.1) L 03/05/22 01:51 BUN 26 mg/dL (7-18) H 03/05/22 01:51 Creatinine 1.23 mg/dL (0.55-1.3) 03/05/22 01:51 Glucose 271 mg/dL (74-106) H 03/05/22 01:51 Total Bilirubin 0.6 mg/dL (0.2-1.0) 03/05/22 01:51 AST 168 U/L (15-37) H 03/05/22 01:51 ALT 248 U/L (12-78) H 03/05/22 01:51 Alkaline Phosphatase 114 U/L (45-117) 03/05/22 01:51 Triglycerides 91 mg/dL (<150) 03/05/22 07:33 Cholesterol 101 mg/dL (<200) 03/05/22 07:33 HDL Cholesterol 42 mg/dL (40-60) 03/05/22 07:33 Cholesterol/HDL Ratio 2.40 03/05/22 07:33 Home Medications: Albuterol Sulfate 1 puff IH TID 03/05/22 Albuterol Sulfate [Proair Hfa] 1 puff IH Q4HP PRN 03/05/22 Aspirin [Aspirin EC 81 MG] 162 mg PO DAILY #60 tab 03/05/22 Atorvastatin Calcium 10 mg PO DAILY 03/05/22 Benzonatate 200 mg PO TID 03/05/22 Citalopram [Celexa*] 10 mg PO DAILY 03/05/22 Clopidogrel Bisulfate [Plavix*] 75 mg PO DAILY 03/05/22 Doxycycline Hyclate 100 mg PO BID 03/05/22 Gabapentin 100 mg PO DAILY 03/05/22 Hydroxyzine HCl [Atarax] 10 mg PO DAILY 03/05/22 Ipratropium/Albuterol Sulfate [Iprat-Albut 0.5-3(2.5) mg/3 ml] 1 puff IH TID 03/05/22 Levothyroxine Sodium [Levothyroxine] 75 mcg PO DAILY 03/05/22 [place] Carbonate [[place] Carbonate ER] 450 mg PO BID 03/05/22 Loratadine/Pseudoephedrine [Loratadine-D 12 Hour Tablet] 1 tab PO DAILY 03/05/22 Metoprolol Succinate [Toprol Xl*] 100 mg PO DAILY 03/05/22 hydroCHLOROthiazide [Hydrochlorothiazide] 25 mg PO DAILY 03/05/22 predniSONE [Prednisone] 10 mg PO DAILY 03/05/22 New Medications: Aspirin [Aspirin EC 81 MG] 162 mg PO DAILY #60 tab Physician Discharge Instructions: -DC IV and DC home -Follow-up with PCP in 1 to 2 weeks -Follow-up with Pulmonary/Cardiology in 1 to 2 weeks/Need to follow up for Echo per histologic aide -Please call Dr. Bhardwaj at [phone] if any questions regarding hospital stay -Please call nursing station at [phone] if any nursing or medication questions -Return to the emergency room if symptoms worsen Diet: Low sodium Activity: Fall precautions Followup: Unknown,U [Primary Care Provider] - Time spent managing pt's care (in minutes): 35
[2022-03-06] MEDS ORDERED: LEVOTHYROXINE SOD 0.075 MG TAB PO SCH (06:30)
[2022-03-06] MEDS ORDERED: METOPROLOL XL 100 MG TAB PO SCH (09:00)
[2022-03-06] MEDS ORDERED: ATORVASTATIN 10 MG TAB PO SCH (09:00)
[2022-03-06] MEDS ORDERED: CITALOPRAM 10 MG TABLET PO SCH (09:00)
[2022-03-06] MEDS ORDERED: predniSONE 10 MG TAB PO SCH (09:00)
[2022-03-06] MEDS ORDERED: GABAPENTIN 100 MG CAP PO SCH (09:00)
[2022-03-06] MEDS ORDERED: CLOPIDOGREL 75 MG TABLET PO SCH (09:00)
[2022-03-06] MEDS ORDERED: LORATADINE/PSEUDO 12HR TAB PO SCH (09:00)
[2022-03-06] MEDS ORDERED: hydroCHLOROthiazide 25 MG TAB PO SCH (09:00)
[2022-03-06] MEDS ORDERED: HOME MED 1 EA UNK (Hydroxyzine Hcl [Atarax] 10 MG Tablet) PO SCH (09:00)
[2022-03-06] MEDS ORDERED: LEVOTHYROXINE SODIUM 75 MCG PO SCH (09:00)
--- NOTE | 2022-03-06 14:05 | RAD REPORT ---
EXAM DESCRIPTION: RAD - Chest Single View - 03/05/2022 1:45 am CLINICAL HISTORY: 6 years Female, COPD COMPARISON: Chest radiograph dated 02/28/2022 IMPRESSION: Bibasilar interstitial opacities concerning for pneumonia, edema or effusion. No pneumothorax. Cardiomediastinal silhouette is enlarged. No acute osseous abnormality. Electronically signed by: Korey Arredondo DO 03/05/2022 1:57 AM PATTERN SCRATCHER Due to temporary technical issues with the PACS/Fluency reporting system, reports are being signed by the in house radiologists without review as a courtesy to insure prompt reporting. The interpreting radiologist is fully responsible for the content of the report.
== END 2022-03-05 20:10 | disposition home or self-care (01) ==
LOC: ER 01:20 → INTOOBSV 05:05 → ERHOLD 05:05 → 3RD-ICU 05:31
PROVIDERS: ADMIT Hospitalist; ATTEND Hospitalist
DX: I50.41 Acute combined systolic (congestive) and diastolic (congestive) heart failure (principal); I48.0 Paroxysmal atrial fibrillation; J43.9 Emphysema, unspecified; F31.62 Bipolar disorder, current episode mixed, moderate; E78.5 Hyperlipidemia, unspecified; R77.8 Other specified abnormalities of plasma proteins; F17.210 Nicotine dependence, cigarettes, uncomplicated; Z20.822 Contact with and (suspected) exposure to COVID-19
CPT/HCPCS: 93005; 87040 ×2; 87088; 85025; 87086; 36415; 82140; 82550; 80061; 83605 ×3; 84443; 81003; 84484 ×3; 82553; 80053; 83880; 0240U; 71275; 71045; 94640; 82805; 94760 ×2; 94660; Q9967; J1940; J7613 ×2; J7644; J1650; J2930; G0378

== ENCOUNTER 2022-03-26 06:27 | Inpatient (IN) | payer OTHER ==
--- OUTSIDE RECORDS SUMMARY | 2022-03-26 06:57 | XMS REPORT | Continuity of Care Document ---
:1965 Author Organization [facility] Address [address] [place] [address] Care Team Providers Name Role Phone Thai Pena [facility] P hysician Doctor Unassigned, [place] Attending Clinician Unavailable DOLORES PATTERSON Attending Clinician Unavailable Dolores Patterson MD Attending Clinician RUSTAM LOONEY Attending Clinician Unavailable Rustam Looney MD Attending Clinician Humberto Mejia Attending Clinician Timothy Irwin Attending Clinician SKY DAO Attending Clinician Unavailable DOLORES PATTERSON Admitting Clinician Unavailable RUSTAM LOONEY Admitting Clinician Unavailable SKY DAO Admitting Clinician Unavailable Payers Payer Name Policy Type Policy Number Effective Date Expiration Date S ource Problems Condition Condition Condition Status Onset Resolution Last Treating Co mments Source Name Details Category Date Date Treatment Clinician Date Dyspnea Dyspnea Disease Active 2019- Univers 1-03 ity of 00:00: [place] 00 [facility] Morbid Morbid Disease Active Univers obesity obesity 1-03 [place] of with [place] dical of of Branch 40.0-49.9 40.0-49.9 Coronary Coronary Disease Active Unive rs artery artery 1-03 ity of disease disease 00:00: [place] involving involving 00 Medi [place] coronary coronary artery of artery of [place] heart with heart with angina angina pectoris pectoris Atypical Atypical Disease Active Unive rs chest pain chest pain 1-03 it y of 00:00: [place] [facility] Essential Essential Disease Active Uni vers hypertensi hypertensi 1-03 it y of on on 00:00: [place] [facility] Dyslipidem Dyslipidem Disease Active U nivers ia ia 1-03 ity of 00:00: [place] [facility] Allergies, Adverse Reactions, Alerts Allergy [...] Univers E INGREDI 6-10 ity of 00:00: [place] [facility] Oxycodon Propensi Active Rash Univer s e ty to 6-10 ity of adverse 00:00: [place] reaction 00 Medical s Branch oxyCODON oxyCODON Active Maria L Peñaloza Social History Social Habit Start Date Stop Date Quantity Comments Source History of Smokes tobacco University of tobacco use daily [facility] Exposure to 2022-02-14 2022-02-24 Not sure [facility] SARS-CoV-2 00:00:00 04:59:00 [facility] (event) Branch Alcohol intake 2022-01-15 2022-01-15 Current drinker Unive rsity of 00:00:00 00:00:00 of alcohol [facility] (finding) [place] Social History 2019-04-24 2019-04-24 Felix urias 17:19:51 17:19:51 Tobacco use and 2019-04-03 2019-04-03 Smokeless tobacco Un iversity of exposure 00:00:00 00:00:00 non-user [facility] Sex Ass[birth year] At [birth year] Universit y of 00:00:00 00:00:00 [facility] Smoking Status Start Date Stop Date Source Smokes tobacco daily 2019-04-03 00:00:00 Univers ity of [facility] Branch Medications Ordered Filled Start Stop Current [...] 3 Until mL Discontinu ed, Routine methylPREDN 2021-04 No 125mg 125 mg, U nivers ISolone sod 04-26 Intravenou i ty of succ 11:30: 11:30 s, ONCE, 1 [place] (SOLU-MEDRO 00 :00 dose, On [facility] renu L (PF)) Sat Branch injection 02/24/22 125 mg at 0530, [place] furosemide 2021-04 No 40mg 40 mg, IV U nivers (LASIX) 017 Push, ity of injection 10:45: 10:45 ONCE, [place] 40 [place] 00 :00 dose, On [facility] Branch 01/15/22 at 0545, [place] TAKE 2021-0 No TABLET BY - MOUTH EVERY 00:00: 4 HOURS 00 NEEDED FOR PAIN TAKE 2021-0 No TABLET BY 12-25 MOUTH EVERY 00:00: 4 HOURS 00 NEEDED [...] HOURS 00 NEEDED FOR PAIN TAKE 1 2021-0 No 50 TABLET BY 8-26 MOUTH EVERY 00:00: 4 HOURS 00 NEEDED FOR PAIN TAKE 1 2021-0 No 50 TABLET BY 8-26 MOUTH EVERY 00:00: 4 HOURS 00 NEEDED FOR PAIN TAKE 1 2021-0 No 50 TABLET BY 8-26 MOUTH EVERY 00:00: 4 HOURS 00 NEEDED FOR PAIN TAKE 1 2-0 No 50 TABLET BY 8-26 MOUTH EVERY 00:00: 4 HOURS 00 NEEDED FOR PAIN TAKE 1 2-0 No 50 TABLET BY 8-26 MOUTH EVERY 00:00: 4 HOURS 00 NEEDED FOR PAIN TAKE 1 2021-0 No 50 TABLET BY 8-26 MOUTH EVERY 00:00: 4 HOURS 00 NEEDED FOR PAIN TAKE 1 2021-0 No 50 TABLET BY 8-26 MOUTH EVERY 00:00: 4 HOURS 00 NEEDED FOR PAIN promethazin 2-0 No 1mg e 25 mg 10-30 tablet 00:00: 00 TAKE 1 2-0 No 75 TABLET 10-30 DAILY. 00:00: 00 TAKE 1-2 2022-0 No 20 TABLETS A 10-30 DAY 00:00: NEEDED 00 promethazin 2022-0 No 1mg e 25 mg - tablet 00:00: 00 TAKE 1 2-0 No 75 TABLET 10-30 DAILY. 00:00: 00 TAKE 1-2 2022-0 No 20 TABLETS A 10-30 DAY 00:00: NEEDED 00 promethazin 2022-0 No 1mg e 25 mg - tablet 00:00: 00 TAKE 1 2-0 No 75 TABLET 10-30 DAILY. 00:00: 00 [...] TAKE 1-2 2022-0 No 20 TABLETS A 8 DAY 00:00: NEEDED 00 citalopram 2022-0 No [...] TAKE 1-2 2022-0 No 20 TABLETS A 00:00: NEEDED 00 TAKE 1-2 2022-0 No 20 TABLETS A 00:00: NEEDED 00 TAKE 1-2 2022-0 No 20 TABLETS A 00:00: NEEDED 00 TAKE 1-2 2022-0 No 20 TABLETS A 10-03 DAY 00:00: NEEDED 00 TAKE 1-2 2022-0 No 20 TABLETS A 10-03 DAY 00:00: NEEDED 00 TAKE 1-2 2022-0 No 20 TABLETS A 00:00: NEEDED 00 hydrochloro 2022-0 No 1mg [...] 10 mg 6-14 tablet 00:00: 00 nitroglycer 2-0 No 1mg in 0.4 mg 6-14 sublingual 00:00: tablet 00 amoxicillin 2-0 No 1mg 875 6-11 mg-potassiu 00:00: m 00 clavulanate 125 mg tablet amoxicillin 2-0 No 1mg 875 6-11 mg-potassiu 00:00: m 00 clavulanate 125 mg tablet amoxicillin 2-0 No 1mg 875 6-11 mg-potassiu 00:00: m 00 clavulanate 125 mg tablet amoxicillin 2-0 No 1mg 875 6-11 mg-potassiu 00:00: m 00 clavulanate 125 mg tablet amoxicillin 2-0 No 1mg 875 6-11 mg-potassiu 00:00: m 00 clavulanate 125 mg tablet amoxicillin 2-0 No 1mg 875 6-11 mg-potassiu 00:00: m 00 clavulanate 125 mg tablet amoxicillin 2-0 No 1mg 875 6-11 mg-potassiu 00:00: m 00 clavulanate 125 mg tablet amoxicillin 2-0 No 1mg 875 6-11 mg-potassiu 00:00: m 00 clavulanate 125 mg tablet amoxicillin 2-0 No 1mg 875 6-11 mg-potassiu 00:00: m 00 clavulanate 125 mg tablet amoxicillin 2-0 No 1mg 875 6-11 mg-potassiu 00:00: m 00 clavulanate 125 mg tablet amoxicillin 2022-0 No 1mg 875 6-11 mg-potassiu 00:00: m 00 clavulanate 125 mg tablet amoxicillin 2-0 No 1mg 875 6-11 mg-potassiu 00:00: m 00 clavulanate 125 mg tablet neomycin-po 2-0 No 4mg/mL- lymyxin-hyd 6-02 unit/mL [...] 10 mg 5-25 tablet 00:00: 00 citalopram 2-0 No 1mg 10 mg 5-25 tablet 00:00: 00 citalopram 2-0 No 1mg 10 mg 5-25 tablet 00:00: 00 citalopram 2022-0 No 1mg 10 mg 5-25 tablet 00:00: 00 citalopram 2-0 No 1mg 10 mg 5-25 [...] Dose 2022-0 No Unknown 5-12 00:00: 00 prednisone 2022-0 No 1mg 10 [...] Dose 2022-0 No Unknown 5-11 00:00: 00 ProAir HFA [...] 2022-0 No Unknown 4-13 00:00: 00 Dose 2-0 No Unknown 4-13 00:00: 00 Dose 2022-0 [...] 2022-0 No Unknown 2-17 00:00: 00 Dose 2-0 No Unknown 2-17 00:00: 00 Dose 2022-0 No Unknown 2-17 00:00: 00 Dose 2-0 No Unknown 2-17 00:00: 00 Dose 2-0 No Unknown 2-17 00:00: 00 clopidogrel 2-0 No 1mg 75 mg 1-18 tablet 00:00: 00 metoprolol 2-0 No 1mg succinate 1-18 ER 100 mg 00:00: tablet,exte 00 nded release 24 hr Dose 2-0 No Unknown 1-18 00:00: 00 clopidogrel 2022-0 No 1mg 75 mg 1-18 tablet 00:00: 00 metoprolol 2022-0 No 1mg succinate 1-18 ER 100 mg 00:00: tablet,exte 00 nded release 24 hr Dose 2-0 No Unknown 1-18 00:00: 00 clopidogrel 2022-0 [...] mL solution 00 for nebulizatio n ipratropium 2021-0 No 1mg 0.5 1-03 base)/3 mg-albutero 00:00: mL l 3 mg (2.5 00 mg base)/3 mL nebulizatio n soln doxycycline 2021-0 No 1mg hyclate 100 1-03 mg tablet 00:00: 00 fluconazole 2021-0 No 1mg 150 mg 1-03 tablet 00:00: 00 albuterol 2021-0 No 1mg/3 sulfate 1-03 mL 1.25 mg/3 00:00: mL solution 00 for nebulizatio n ipratropium 2021-0 No 1mg 0.5 1-03 base)/3 mg-albutero 00:00: mL l 3 mg (2.5 00 mg base)/3 mL nebulizatio n soln doxycycline 2021-0 No 1mg hyclate 100 1-03 mg tablet 00:00: 00 fluconazole 2021-0 No 1mg 150 mg 1-03 tablet 00:00: 00 levothyroxi 1 No 1mcg ne 75 mcg 2-14 tablet 00:00: 00 Vitamin D3 2020-04 No 1(1,000 25 mcg 2-14 unit) (1,000 00:00: unit) 00 tablet levothyroxi 2020-04 No 1mcg ne 75 mcg 2-14 tablet 00:00: 00 Vitamin D3 2020- No 1(1,000 25 mcg 2-14 unit) (1,000 00:00: unit) 00 tablet levothyroxi 1 No 1mcg ne 75 mcg 2-14 tablet 00:00: 00 Vitamin D3 2020-04 No 1(1,000 25 mcg 2-14 unit) (1,000 00:00: unit) 00 tablet levothyroxi 2020-04 No 1mcg ne 75 mcg 2-14 tablet 00:00: 00 Vitamin D3 2020-1 No 1(1,000 25 mcg 2-14 unit) (1,000 [...] atorvastati 2020-04 No 1mg n 10 mg 2-09 tablet 00:00: 00 atorvastati 2020-04 No 1mg n 10 mg 2-09 tablet 00:00: 00 atorvastati 2020-04 No 1mg n 10 mg 2-09 tablet 00:00: 00 atorvastati 2020-04 No 1mg n 10 mg 2-09 tablet 00:00: 00 atorvastati 2020-04 No 1mg n 10 mg 2-09 tablet 00:00: 00 atorvastati 2020-04 No 1mg n 10 mg 2-09 tablet 00:00: 00 atorvastati 2020-04 No 1mg n 10 mg 2-09 tablet 00:00: 00 atorvastati 2020-04 No 1mg n 10 mg 2-09 tablet 00:00: 00 atorvastati 2020-04 No 1mg n 10 mg 2-09 tablet 00:00: 00 atorvastati 2020-04 No 1mg n 10 mg 2-09 tablet 00:00: 00 atorvastati 2020-04 No 1mg n 10 mg 2-09 tablet 00:00: 00 atorvastati 2020-04 No 1mg n 10 mg 2-09 tablet 00:00: 00 Dose 2020- No Unknown 1-30 00:00: 00 Dose 2020- No Unknown 1-30 00:00: 00 Dose 2021-1 No Unknown 1-30 00:00: 00 Dose 2021-1 No Unknown 1-30 00:00: 00 Dose 2021-1 No Unknown 1- 00:00: 00 Dose 2021-1 No Unknown 1- 00:00: 00 Dose 2021-1 No Unknown 1- 00:00: 00 Dose 2021-1 No Unknown 1- 00:00: 00 Dose 2021-1 No Unknown 1- 00:00: 00 Dose 2021-1 No Unknown 1- 00:00: 00 Dose 2021-1 No Unknown 1- 00:00: 00 Dose 2021-1 No Unknown 1- 00:00: 00 clopidogrel 2021-1 No 1mg 75 [...] tablet 00:00: 00 Dose 2021-1 No Unknown 1- 00:00: 00 gabapentin 2021-1 No 12mg 100 mg 1-23 capsule 00:00: 00 Dose 1-1 No Unknown 1- 00:00: 00 gabapentin 2021-1 No 12mg 100 mg 1-23 capsule 00:00: 00 Dose 2021-1 No Unknown 1- 00:00: 00 gabapentin 2021-1 No 12mg 100 mg 1-23 capsule 00:00: 00 Dose 2021-1 No Unknown 1- 00:00: 00 gabapentin 2021-1 No 12mg 100 mg 1-23 capsule 00:00: 00 Dose 2021-1 No Unknown 1-23 00:00: 00 gabapentin 2021-1 [...] capsule 00:00: 00 Dose 2021-1 No Unknown 1 00:00: 00 gabapentin 2021-1 No 12mg 100 mg 1-23 capsule 00:00: 00 lithium 2021-1 No 1mg carbonate 1-23 ER 450 mg 00:00: tablet,exte 00 nded release gabapentin 1-1 No 12mg 100 mg 1-23 capsule 00:00: 00 Dose 2021-1 No Unknown 1 00:00: 00 gabapentin 2021-1 No 12mg 100 mg 1-23 capsule 00:00: 00 Dose 2021-1 No Unknown 1 00:00: 00 gabapentin 2021-1 No 12mg 100 [...] % topical 0-15 gel 00:00: 00 hydroxyzine 2020-1 No 12mg HCl 10 mg 0-15 tablet 00:00: 00 diclofenac 1-1 No % 1 % topical 0-15 gel 00:00: 00 hydroxyzine 2020-1 No 12mg HCl 10 mg 0-15 tablet 00:00: 00 diclofenac 1-1 No % 1 % topical 0-15 gel 00:00: 00 hydroxyzine 2020-1 No 12mg HCl 10 mg 0-15 tablet 00:00: 00 diclofenac 1-1 No % 1 % topical 0-15 gel 00:00: 00 hydroxyzine 2020-1 No 12mg HCl 10 mg 0-15 tablet 00:00: 00 diclofenac 1-1 No % 1 % topical 0-15 gel 00:00: 00 hydroxyzine 2020-1 No 12mg HCl 10 mg 0-15 tablet 00:00: 00 diclofenac 1-1 No % 1 % topical 0-15 gel 00:00: 00 hydroxyzine 2020-1 No 12mg HCl 10 mg 0-15 tablet 00:00: 00 diclofenac 1-1 No % 1 % topical 0-15 gel 00:00: 00 hydroxyzine 2020-1 No 12mg HCl 10 mg 0-15 tablet 00:00: 00 diclofenac 1-1 No % 1 % topical 0-15 gel 00:00: 00 hydroxyzine 2020-1 No 12mg HCl 10 mg 0-15 tablet 00:00: 00 diclofenac 1-1 No % 1 % topical 0-15 gel 00:00: 00 hydroxyzine 1-1 No 12mg HCl 10 mg 0-15 tablet 00:00: 00 diclofenac 1-1 No % 1 % topical 0-15 gel 00:00: 00 hydroxyzine 2020-1 No 12mg HCl 10 mg 0-15 tablet 00:00: 00 diclofenac 1-1 No % 1 % topical 0-15 gel 00:00: 00 hydroxyzine 2020-1 No 12mg HCl 10 mg 0-15 tablet [...] 2021-0 No Unknown 5-19 00:00: 00 lithium 1-0 No 1mg carbonate 5-19 ER 450 mg [...] 10 mg 5-17 tablet 00:00: 00 lithium 2021-0 No 1mg [...] 75 mcg 4-14 tablet 00:00: 00 atorvastati 2021-0 No 1mg [...] (1,000 00:00: unit) 00 tablet Vitamin D3 2020-0 No 1(1,000 25 mcg 1-11 unit) (1,000 00:00: unit) 00 tablet Vitamin D3 1-0 No 1(1,000 25 mcg 1-11 unit) (1,000 00:00: unit) 00 tablet Vitamin D3 2020-0 No 1(1,000 25 mcg 1-11 unit) (1,000 [...] (1,000 00:00: unit) 00 tablet Vitamin D3 2020-0 No 1(1,000 25 mcg 1-11 unit) (1,000 00:00: unit) 00 tablet Vitamin D3 2020-0 No 1(1,000 25 mcg 1-11 unit) (1,000 00:00: unit) 00 tablet Vitamin D3 2020-0 No 1(1,000 25 mcg 1-11 unit) (1,000 00:00: unit) 00 tablet Vitamin D3 2020-0 No 1(1,000 25 mcg 1-11 unit) (1,000 00:00: unit) 00 tablet Vitamin D3 2020-0 No 1(1,000 25 mcg 1-11 unit) (1,000 00:00: unit) 00 tablet Vitamin D3 2020-0 No 1(1,000 25 mcg 1-11 unit) (1,000 00:00: unit) 00 tablet Vitamin D3 2020-0 No 1(1,000 25 mcg 1-11 unit) (1,000 00:00: unit) 00 tablet Vitamin D3 2020-0 No 1(1,000 25 mcg 1-11 unit) (1,000 00:00: unit) 00 tablet Vitamin D3 2020-0 No 1(1,000 25 mcg 1-11 unit) (1,000 00:00: unit) 00 tablet Vitamin D3 1-0 No 1(1,000 25 mcg 1-11 unit) (1,000 00:00: unit) 00 tablet Vitamin D3 1-0 No 1(1,000 25 mcg 1-11 unit) (1,000 00:00: unit) 00 tablet Cipro 500 1-0 No 1mg mg tablet 04-07 [...] 150 mg 2-29 tablet 00:00: 00 Diflucan 2020- No mg 150 mg 2-29 tablet 00:00: 00 Diflucan 2020- No mg 150 mg 2-29 tablet 00:00: 00 Diflucan 2019- No mg 150 mg 2-29 tablet 00:00: 00 Diflucan 2020- No mg 150 mg 2-29 tablet 00:00: 00 Diflucan 2019- No mg 150 mg 2-29 tablet 00:00: 00 Diflucan 2019- No mg 150 mg 2-29 tablet 00:00: 00 Diflucan 2019- No mg 150 mg 2-29 tablet 00:00: 00 Diflucan 2019- No mg 150 mg 2-29 tablet 00:00: 00 metoprolol 2019- No 1mg succinate 2-26 ER 100 mg 00:00: tablet,exte 00 nded release 24 hr atorvastati 2019- No 1mg n 10 mg 2-26 tablet 00:00: 00 hydrochloro 2019- No 1mg thiazide 2-26 12.5 mg 00:00: tablet 00 lithium 2019-04 No 1mg carbonate 2-26 ER [...] 75 mg 2-26 tablet 00:00: 00 atorvastati 2019-04 No [...] 10 mg 2-26 tablet 00:00: 00 metoprolol Yes 100 mg = 1 M emoria 100 mg oral 1-24 tab, PO, l tablet, 17:20: Daily, # [place] n extended 00 30 tab, 0 release Refill(s) atorvastati 2019-0 Yes PO, Daily, Memoria n 1-24 0 l 17:20: Refill(s) [place] 00 Aspirin 81 2019-0 Yes 81 mg = 1 Me moria [...] 0 l 17:20: Refill(s) Jh 00 citalopram 2020-0 Yes 10 mg = 1 Me moria 10 mg oral 1-24 tab, PO, l tablet 17:20: Daily, # [place] 00 30 tab, 0 Refill(s) metoprolol 2020-0 Yes 100 mg = 1 M emoria 100 mg oral 1-24 tab, PO, l tablet, 17:20: Daily, # [place] n extended 00 30 tab, 0 release Refill(s) atorvastati 2020-0 Yes PO, Daily, Memoria n 1-24 0 l 17:20: Refill(s) Jh 00 Aspirin 81 2020-0 Yes 81 mg [...] 1-24 PO, BID, 0 l 17:20: Refill(s) [place] 00 citalopram 2020-0 Yes 10 mg = 1 Me moria 10 mg oral 1-24 tab, PO, l tablet 17:20: Daily, # [place] 00 30 tab, 0 Refill(s) metoprolol 2020-0 Yes 100 mg = 1 M emoria 100 mg oral 1-24 tab, PO, l tablet, 17:20: Daily, # [place] n extended 00 30 tab, 0 release Refill(s) atorvastati 2020-0 Yes PO, Daily, Memoria n 1-24 0 l 17:20: Refill(s) Jh 00 Aspirin 81 2020-0 Yes 81 mg = 1 Me moria MG Enteric 1-24 tab, PO, l Coated 17:20: Daily, # Jh Tablet 00 90 tab, 3 Refill(s) levothyroxi 2020-0 Yes 75 Memori a ne 75 mcg 1-24 microgram l (0.075 mg) 17:20: = 1 tab, Her mcneal oral tablet 00 PO, Daily, # 30 tab, 0 Refill(s) metoprolol 2020-0 Yes [...] tab, PO, l Coated 17:20: Daily, # [place] Tablet 00 90 tab, 3 Refill(s) levothyroxi 2020-0 Yes 75 Memori a ne 75 mcg 1-24 microgram l (0.075 mg) 17:20: = 1 tab, Her mcneal oral tablet 00 PO, Daily, # 30 tab, 0 Refill(s) lithium 2020-0 Yes 450 mg, Memoria carbonate 1-24 PO, BID, 0 l 17:20: Refill(s) lithium 2020-0 Yes 450 mg, Memoria carbonate 1-24 PO, BID, 0 l 17:20: Refill(s) citalopram 2020-0 Yes 10 mg = 1 Me moria 10 mg oral 1-24 tab, PO, l tablet 17:20: Daily, # [place] 00 30 tab, 0 Refill(s) citalopram 2020-0 Yes 10 mg = 1 Me moria 10 mg oral 1-24 tab, PO, l tablet 17:20: Daily, # [place] 00 30 tab, 0 Refill(s) metoprolol 2020-0 Yes 100 mg = 1 M emoria 100 mg oral 1-24 tab, PO, l tablet, 17:20: Daily, # [place] n extended 00 30 tab, 0 release Refill(s) atorvastati 2020-0 Yes PO, Daily, Memoria n 1-24 0 l 17:20: Refill(s) [place] Aspirin 81 2020-0 Yes 81 mg = [...] 1-24 PO, BID, 0 l 17:20: Refill(s) [place] 00 citalopram 2020-0 Yes 10 mg = 1 Me moria 10 mg oral 1-24 tab, PO, l tablet 17:20: Daily, # [place] 00 30 tab, 0 Refill(s) metoprolol 2020-0 Yes 100 mg = 1 M emoria 100 mg oral 1-24 tab, PO, l tablet, 17:20: Daily, # [place] extended 00 30 tab, 0 release Refill(s) atorvastati 2020-0 Yes PO, Daily, Memoria n 1-24 0 l 17:20: Refill(s) J[facility] 00 Aspirin 81 2020-0 Yes 81 mg = 1 Me moria MG Enteric 1-24 tab, PO, l Coated 17:20: Daily, # [place] Tablet 00 90 tab, 3 Refill(s) levothyroxi [...] tab, PO, l tablet 17:20: Daily, # [place] 00 30 tab, 0 Refill(s) metoprolol 2020-0 [...] Memoria n 1-24 0 l 17:20: Refill(s) [place] Aspirin 81 2020-0 Yes 81 mg = [...] PO, BID, 0 l 17:20: Refill(s) Jh levothyroxi 2020-0 Yes 75 Memori a ne 75 mcg 1-24 microgram l (0.075 mg) 17:20: = 1 tab, Her mcneal oral tablet 00 PO, Daily, # 30 tab, 0 Refill(s) citalopram 2020-0 Yes 10 mg = 1 Me moria 10 mg oral 1-24 tab, PO, l tablet 17:20: Daily, # [place] 00 30 tab, 0 Refill(s) metoprolol 2020-0 [...] tab, PO, l Coated 17:20: Daily, # [place] Tablet 00 90 tab, 3 Refill(s) levothyroxi 2020-0 Yes 75 Memori a ne 75 mcg 1-24 microgram l (0.075 mg) 17:20: = 1 tab, Her mcneal oral tablet 00 PO, Daily, # 30 tab, 0 Refill(s) lithium 2020-0 Yes 450 mg, Memoria carbonate 1-24 PO, BID, 0 l 17:20: Refill(s) [place] 00 citalopram 2020-0 Yes 10 mg = [...] tab, PO, l Coated 17:20: Daily, # [place] Tablet 00 90 tab, 3 Refill(s) lithium 2020-0 Yes 450 mg, Memoria carbonate 1-24 PO, BID, 0 l 17:20: Refill(s) levothyroxi 2020-0 Yes 75 Memori a [...] tab, PO, l Coated 17:20: Daily, # [place] Tablet 00 90 tab, 3 Refill(s) levothyroxi 2020-0 Yes 75 Memori a ne 75 mcg 1-24 microgram l (0.075 mg) 17:20: = 1 tab, Her mcneal oral tablet 00 PO, Daily, # 30 tab, 0 Refill(s) lithium 2020-0 Yes 450 mg, Memoria carbonate 1-24 PO, BID, 0 l 17:20: Refill(s) [place] 00 citalopram 2020-0 Yes 10 mg = 1 Me moria 10 mg oral 1-24 tab, PO, l tablet 17:20: Daily, # [place] 00 30 tab, 0 Refill(s) metoprolol 2020-0 Yes 100 mg = 1 M emoria 100 mg oral 1-24 tab, PO, l tablet, 17:20: Daily, # [place] n extended 00 30 tab, 0 release Refill(s) citalopram 2020-0 Yes 10 mg = 1 Me moria 10 mg oral 1-24 tab, PO, l tablet 17:20: Daily, # [place] 00 30 tab, 0 Refill(s) atorvastati 2020-0 Yes PO, Daily, Memoria n 1-24 0 l 17:20: Refill(s) Aspirin 81 2020-0 Yes 81 mg = 1 Me moria MG Enteric 1-24 tab, PO, l Coated 17:20: Daily, # [place] Tablet 00 90 tab, 3 Refill(s) lithium 2019-0 Yes 450mg Take 450 Unive rs carbonate [...] mouth ity of mg tablet 18:44: daily. [place] [address] [facility] metoprolol 2020-0 Yes 100mg Take [...] by mouth ity of tablet 18:44: daily. [place] [address] [facility] citalopram 2020-0 Yes 20mg Take 20 mg U nivers 20 mg 1-03 by mouth ity of tablet 18:44: daily. [place] [address] [facility] lithium 2020-0 Yes 450mg Take [...] mouth ity of mg tablet 18:44: daily. [place] [address] [facility] metoprolol 2020-0 Yes 100mg Take 100 Un debo succinate 1-03 mg by ity of 100 mg CSpX 18:44: mouth [place] 18 daily. Medical Branch atorvastati 2020-0 Yes 10mg Take 10 mg Univers n 10 mg 1-03 by mouth ity of tablet 18:44: at [place] 18 bedtime. Medical Branch aspirin 81 2020-0 Yes 81mg Take 81 mg U nivers mg chewable 1-03 by mouth ity of tablet 18:44: daily. [place] [address] [facility] citalopram 2020-0 Yes 20mg Take 20 mg U nivers 20 mg 1-03 by mouth ity of tablet 18:44: daily. [place] [address] [facility] lithium 2020-0 Yes 450mg Take [...] mouth ity of mg tablet 18:44: daily. [place] [address] [facility] metoprolol 2020-0 Yes 100mg Take [...] by mouth ity of tablet 18:44: daily. [place] [address] [facility] citalopram 2020-0 Yes 20mg Take 20 mg U nivers 20 mg 1-03 by mouth ity of tablet 18:44: daily. [place] [address] [facility] lithium 2020-0 Yes 450mg Take [...] mouth ity of mg tablet 18:44: daily. [place] [address] [facility] metoprolol 2020-0 Yes 100mg Take [...] by mouth ity of tablet 18:44: daily. [place] [address] [facility] citalopram 2020-0 Yes 20mg Take 20 mg U nivers 20 mg 1-03 by mouth ity of tablet 18:44: daily. [place] [address] [facility] lithium 2020-0 Yes 450mg Take [...] mouth ity of mg tablet 18:44: daily. [place] [address] [facility] metoprolol 2020-0 Yes 100mg Take [...] by mouth ity of tablet 18:44: daily. [address] Branch citalopram 2020-0 Yes 20mg Take 20 mg U nivers 20 mg 1-03 by mouth ity of tablet 18:44: daily. [address] ipratropium 2017- Yes 3mL Inhale 3 Un debo -albuterol 0-29 mL every 6 ity of 0.5 mg-3 00:00: (six) [place] mg(2.5 mg 00 hours as Medica l base)/3 mL needed for Bra nch nebulizer Wheezing. solution ipratropium 2017-04 Yes 3mL Inhale 3 Un debo -albuterol 0-29 mL every 6 ity of 0.5 mg-3 00:00: (six) [place] mg(2.5 mg 00 hours as Medica l base)/3 mL needed for Bra nch nebulizer Wheezing. solution ipratropium 2017-04 Yes 3mL Inhale 3 Un debo -albuterol 0-29 mL every 6 ity of 0.5 mg-3 00:00: (six) [place] mg(2.5 mg 00 hours as Medica l base)/3 mL needed for Bra nch nebulizer Wheezing. solution ipratropium 2017-04 Yes 3mL Inhale 3 Un debo -albuterol 0-29 mL every 6 ity of 0.5 mg-3 00:00: (six) [place] mg(2.5 mg 00 hours as Medica l base)/3 mL needed for Bra nch nebulizer Wheezing. solution ipratropium 2017-04 Yes 3mL Inhale 3 Un debo -albuterol 0-29 mL every 6 ity of 0.5 mg-3 00:00: (six) [place] mg(2.5 mg 00 hours as Medica l base)/3 mL needed for Bra nch nebulizer Wheezing. solution Vital Signs Vital Name Observation Time Observation Value Comments Source Systolic blood 2022-02-24 12:00:00 145 mm[Hg] Univer sity of pressure [facility] Diastolic blood 2022-02-24 12:00:00 81 mm[Hg] Unive rsity of pressure [facility] Heart rate 2022-02-24 12:00:00 88 /min [facility] [place] [facility] Respiratory rate 2022-02-24 12:00:00 18 /min Univ ersity of [place] [facility] Oxygen saturation in 2022-02-24 12:00:00 98 /min [facility] of Arterial blood by [facility] Pulse oximetry Branch Body temperature 2022-02-24 11:00:00 36.78 Margarita [facility] ersity of [place] [facility] Body height 2022-02-24 11:00:00 157.5 cm [facility] [place] [facility] Body weight 2022-02-24 11:00:00 105.235 kg [facility] [place] [facility] BMI 2022-02-24 11:00:00 42.43 kg/m2 [facility] [place] [facility] Systolic blood 2022-01-15 11:49:00 138 mm[Hg] Univer sity of pressure [place] [facility] Diastolic blood 2022-01-15 11:49:00 74 mm[Hg] Unive rsity of pressure [place] [facility] Heart rate 2022-01-15 11:49:00 80 /min [facility] [place] [facility] Respiratory rate 2022-01-15 11:49:00 22 /min [facility] [place] [facility] Oxygen saturation in 2022-01-15 11:49:00 91 /min [facility] blood [facility] Pulse oximetry Branch Body temperature 2022-01-15 10:01:00 35.89 Margarita [facility] Body height 2022-01-15 10:01:00 157.5 cm [facility] Body weight 2022-01-15 10:01:00 103.42 kg [facility] BMI 2022-01-15 10:01:00 41.70 kg/m2 [facility] BP Systolic 2022-03-06 09:46:00 112 mm[Hg] BP Diastolic 2022-03-06 09:46:00 72 mm[Hg] Weight Measured 2022-03-06 09:46:00 230.80 pounds Height Measured 2022-03-06 09:46:00 62.00 inches Body Temperature 2022-03-06 09:46:00 97.80 degrees Heart Rate 2022-03-06 09:46:00 87.00 /min Respiratory Rate 2022-03-06 09:46:00 16.00 /min BP Systolic 2022-03-04 09:36:00 BP Diastolic 2022-03-04 [...] /min Systolic (mm Hg) 2019-04-24 17:15:00 Jae Peñaloza Diastolic (mm Hg) 2019-04-24 17:15:00 Chasity Peñaloza Height 2019-04-24 17:15:00 [facility] 2019-04-24 17:15:00 [facility] BMI Calculated 2019-04-24 17:15:00 Maria L Kelley Procedures Procedure Date / Time Performing Clinician Source Performed REFERRAL- 2022-03-06 06:01:00 Doctor Unassigned, [facility] REQUEST/RESPONSE [facility] XR CHEST 1 VW 2022-02-24 11:28:44 Dolores Patterson [facility] LIPASE 2022-02-24 11:08:00 Dolores Patterson [facility] TROPONIN I 2022-02-24 11:08:00 Dolores Patterson [facility] COMP. METABOLIC PANEL 2022-02-24 11:08:00 Dolroes Patterson [facility] ([id number]) [facility] [place] WITH DIFF 2022-02-24 11:08:00 Dolores Patterson [facility] PROTHROMBIN TIME / INR 2022-02-24 11:08:00 Dolores Patterson [facility] ACTIVATED PARTIAL 2022-02-24 11:08:00 Dolores Patterson [facility] RAPID INFLUENZA A/B 2022-02-24 11:08:00 Dolores Patterson [facility] CONSENT/REFUSAL FOR 2022-02-24 10:53:13 Doctor Darion [facility] DIAGNOSIS AND TREATMENT [facility] XR CHEST 1 VW 2022-01-15 10:43:31 Rustam Looney [facility] URINALYSIS 2022-01-15 10:13:00 Rustam Looney [facility] LIPASE 2022-01-15 10:05:00 Rustam Looney [facility] TROPONIN I 2022-01-15 10:05:00 Rustam Looney [facility] COMP. METABOLIC PANEL 2022-01-15 10:05:00 Rustam Looney [facility] ([id number]) [facility] CBC WITH DIFF 2022-01-15 10:05:00 Rustam Looney [facility] PROTHROMBIN TIME / INR 2022-01-15 10:05:00 Rustam Looney [facility] ACTIVATED PARTIAL 2022-01-15 10:05:00 Rustam Looney [facility] N-TERMINAL PRO-BNP 2022-01-15 10:05:00 Rustam Looney [facility] CONSENT/REFUSAL FOR 2022-01-15 09:53:55 Doctor Darion [facility] DIAGNOSIS AND TREATMENT [facility] REFERRAL- 2021-08-09 05:01:00 Doctor Darion, [facility] REQUEST/RESPONSE [facility] Abdominoplasty 2003-04-01 00:00:00 Felix mcneal 1991-04-[birth year] 00:00:00 Felix mcneal section<sup>1</sup> Plan of Care Planned Activity Planned Date Details Comments Source Goal Plan of Care Note [code = 45735-5] Goal Plan of Care Note [code = 33710-3] Goal Plan of Care Note [code = 28563-1] Goal Plan of Care Note [code = 88214-0] Goal Plan of Care Note [code = 37197-9] Goal Plan of Care Note [code = 00152-0] Goal Plan of Care Note [code = 43878-4] Goal Plan of Care Note [code = 77528-8] Goal Plan of Care Note [code = 33956-1] Goal Plan of Care Note [code = 51228-1] Goal Plan of Care Note [code = 11225-7] Goal Plan of Care Note [code = 07181-5] Goal Plan of Care Note [code = 86067-1] Goal Plan of Care Note [code = 20496-6] Goal Plan of Care Note [code = 78435-6] Goal Plan of Care Note [code = 83353-8] Goal Plan of Care Note [code = 68702-1] Goal Plan of Care Note [code = 96137-6] Goal Plan of Care Note [code = 09517-3] Goal Plan of Care Note [code = 94472-4] Goal Plan of Care Note [code = 29572-9] Goal Plan of Care Note [code = 39492-1] Goal Plan of Care Note [code = 61048-6] Goal Plan of Care Note [code = 70759-5] Goal Plan of Care Note [code = 00314-9] Goal Plan of Care Note [code = 79242-6] Goal Plan of Care Note [code = 06977-8] Goal Plan of Care Note [code = 69713-8] Goal Plan of Care Note [code = 08445-5] Goal Plan of Care Note [code = 31339-2] Goal Plan of Care Note [code = 67075-1] Goal Plan of Care Note [code = 38271-9] Goal Plan of Care Note [code = 58267-9] Goal Plan of Care Note [code = 77588-6] Goal Plan of Care Note [code = 76644-6] Goal Plan of Care Note [code = 58401-6] Goal Plan of Care Note [code = 74414-6] Goal Plan of Care Note [code = 29932-8] Goal Plan of Care Note [code = 91201-9] Goal Plan of Care Note [code = 45371-5] Goal Plan of Care Note [code = 58474-5] Goal Plan of Care Note [code = 48101-6] Goal Plan of Care Note [code = 74899-6] Goal Plan of Care Note [code = 03928-8] Goal Plan of Care Note [code = 20299-1] Goal Plan of Care Note [code = 61583-0] Goal Plan of Care Note [code = 30368-9] Goal Plan of Care Note [code = 80642-7] Goal Plan of Care Note [code = 22902-1] Goal Plan of Care Note [code = 35603-8] Goal Plan of Care Note [code = 43077-0] Goal Plan of Care Note [code = 06492-0] Goal Plan of Care Note [code = 76888-2] Goal Plan of Care Note [code = 77194-3] Goal Plan of Care Note [code = 17649-2] Goal Plan of Care Note [code = 37268-1] Goal Plan of Care Note [code = 91000-2] Goal Plan of Care Note [code = 07699-3] Goal Plan of Care Note [code = 30808-9] Goal Plan of Care Note [code = 94195-1] Goal Plan of Care Note [code = 46604-6] Goal Plan of Care Note [code = 01639-3] Goal Plan of Care Note [code = 63601-0] Goal Plan of Care Note [code = 20903-6] Goal Plan of Care Note [code = 52109-1] Goal Plan of Care Note [code = 98335-1] Goal Plan of Care Note [code = 62073-8] Goal Plan of Care Note [code = 11835-2] Goal Plan of Care Note [code = 49751-7] Goal Plan of Care Note [code = 69429-9] Goal Plan of Care Note [code = 25254-6] Goal Plan of Care Note [code = 80392-4] Goal Plan of Care Note [code = 67943-7] Goal Plan of Care Note [code = 54959-9] Goal Plan of Care Note [code = 93398-8] Goal Plan of Care Note [code = 57188-7] Goal Plan of Care Note [code = 47675-3] Goal Plan of Care Note [code = 77929-2] Goal Plan of Care Note [code = 87445-5] Goal Plan of Care Note [code = 81761-5] Goal Plan of Care Note [code = 97510-4] Goal Plan of Care Note [code = 26762-6] Goal Plan of Care Note [code = 90167-6] Goal Plan of Care Note [code = 95762-4] Goal Plan of Care Note [code = 45371-3] Goal Plan of Care Note [code = 15101-0] Goal Plan of Care Note [code = 91061-8] Goal Plan of Care Note [code = 29169-6] Goal Plan of Care Note [code = 77575-8] Goal Plan of Care Note [code = 07049-4] Goal Plan of Care Note [code = 96074-9] Goal Plan of Care Note [code = 43328-9] Goal Plan of Care Note [code = 25274-6] Goal Plan of Care Note [code = 82094-8] Goal Plan of Care Note [code = 14052-9] Goal Plan of Care Note [code = 64300-2] Goal Plan of Care Note [code = 74521-8] Goal Plan of Care Note [code = 98179-8] Goal Plan of Care Note [code = 76510-8] Goal Plan of Care Note [code = 31901-7] Goal Plan of Care Note [code = 76439-6] Goal Plan of Care Note [code = 99999-6] Goal Plan of Care Note [code = 25546-8] Goal Plan of Care Note [code = 15419-6] Goal Plan of Care Note [code = 24747-8] Goal Plan of Care Note [code = 65897-3] Goal Plan of Care Note [code = 06664-9] Goal Plan of Care Note [code = 11010-1] Goal Plan of Care Note [code = 85652-8] Goal Plan of Care Note [code = 38697-7] Goal Plan of Care Note [code = 80469-9] Goal Plan of Care Note [code = 53834-8] Goal Plan of Care Note [code = 87351-9] Goal Plan of Care Note [code = 72332-8] Goal Plan of Care Note [code = 53555-6] Goal Plan of Care Note [code = 05279-5] Goal Plan of Care Note [code = 02996-9] Goal Plan of Care Note [code = 31041-5] Goal Plan of Care Note [code = 99987-7] Goal Plan of Care Note [code = 68006-7] Goal Plan of Care Note [code = 86566-6] Goal Plan of Care Note [code = 25217-6] Goal Plan of Care Note [code = 71215-5] Goal Plan of Care Note [code = 68959-8] Goal Plan of Care Note [code = 19578-3] Goal Plan of Care Note [code = 34939-0] Goal Plan of Care Note [code = 25965-8] Goal Plan of Care Note [code = 49960-2] Goal Plan of Care Note [code = 25627-6] Goal Plan of Care Note [code = 70427-3] Goal Plan of Care Note [code = 05619-3] Goal Plan of Care Note [code = 82875-4] Goal Plan of Care Note [code = 57377-4] Goal Plan of Care Note [code = 65713-0] Goal Plan of Care Note [code = 77696-6] Goal Plan of Care Note [code = 94635-0] Goal Plan of Care Note [code = 82356-4] Goal Plan of Care Note [code = 56763-5] Goal Plan of Care Note [code = 25119-8] Goal Plan of Care Note [code = 43966-2] Goal Plan of Care Note [code = 09046-7] Goal Plan of Care Note [code = 62241-2] Goal Plan of Care Note [code = 01848-0] Goal Plan of Care Note [code = 59576-0] Goal Plan of Care Note [code = 72799-9] Goal Plan of Care Note [code = 59946-6] Goal Plan of Care Note [code = 85401-4] Goal Plan of Care Note [code = 74824-7] Goal Plan of Care Note [code = 40129-1] Goal Plan of Care Note [code = 00081-6] Goal Plan of Care Note [code = 02133-0] Goal Plan of Care Note [code = 01680-5] Goal Plan of Care Note [code = 61403-5] Goal Plan of Care Note [code = 58677-7] Goal Plan of Care Note [code = 80983-3] Goal Plan of Care Note [code = 49047-8] Goal Plan of Care Note [code = 67874-7] Goal Plan of Care Note [code = 10874-0] Goal Plan of Care Note [code = 71763-0] Goal Plan of Care Note [code = 72674-0] Goal Plan of Care Note [code = 84585-9] Goal Plan of Care Note [code = 37031-4] Goal Plan of Care Note [code = 77545-4] Goal Plan of Care Note [code = 64651-0] Goal Plan of Care Note [code = 81236-1] Goal Plan of Care Note [code = 78353-4] Goal Plan of Care Note [code = 50144-9] Goal Plan of Care Note [code = 03223-6] Goal Plan of Care Note [code = 95341-8] Goal Plan of Care Note [code = 06435-3] Goal Plan of Care Note [code = 96283-7] Goal Plan of Care Note [code = 06005-1] Goal Plan of Care Note [code = 30321-3] Goal Plan of Care Note [code = 08950-8] Goal Plan of Care Note [code = 24987-6] Goal Plan of Care Note [code = 23717-8] Goal Plan of Care Note [code = 39662-1] Goal Plan of Care Note [code = 94228-6] Goal Plan of Care Note [code = 55753-8] Goal Plan of Care Note [code = 73242-6] Goal Plan of Care Note [code = 56613-6] Goal Plan of Care Note [code = 98180-3] Goal Plan of Care Note [code = 12945-4] Goal Plan of Care Note [code = 51672-8] Goal Plan of Care Note [code = 89098-6] Goal Plan of Care Note [code = 95240-9] Goal Plan of Care Note [code = 32979-8] Goal Plan of Care Note [code = 57154-0] Goal Plan of Care Note [code = 99723-4] Goal Plan of Care Note [code = 47394-4] Goal Plan of Care Note [code = 66923-5] Goal Plan of Care Note [code = 76310-0] Goal Plan of Care Note [code = 73957-2] Goal Plan of Care Note [code = 77047-0] Goal Plan of Care Note [code = 83530-8] Goal Plan of Care Note [code = 37484-5] Goal Plan of Care Note [code = 00993-1] Goal Plan of Care Note [code = 75930-5] Goal Plan of Care Note [code = 20733-9] Goal Plan of Care Note [code = 80883-4] Goal Plan of Care Note [code = 45824-7] Goal Plan of Care Note [code = 29183-0] Goal Plan of Care Note [code = 94878-1] Goal Plan of Care Note [code = 68109-0] Goal Plan of Care Note [code = 03452-4] Goal Plan of Care Note [code = 53734-4] Goal Plan of Care Note [code = 41807-7] Goal Plan of Care Note [code = 40209-5] Goal Plan of Care Note [code = 78391-5] Goal Plan of Care Note [code = 92817-2] Goal Plan of Care Note [code = 47766-3] Goal Plan of Care Note [code = 12068-5] Goal Plan of Care Note [code = 78689-1] Goal Plan of Care Note [code = 03645-6] Goal Plan of Care Note [code = 28783-3] Goal Plan of Care Note [code = 91464-3] Goal Plan of Care Note [code = 98055-8] Goal Plan of Care Note [code = 54433-8] Goal Plan of Care Note [code = 39733-5] Goal Plan of Care Note [code = 16404-9] Goal Plan of Care Note [code = 98571-0] Goal Plan of Care Note [code = 07888-4] Goal Plan of Care Note [code = 95144-3] Goal Plan of Care Note [code = 93633-1] Goal Plan of Care Note [code = 73913-8] Goal Plan of Care Note [code = 18474-7] Goal Plan of Care Note [code = 71946-0] Goal Plan of Care Note [code = 11667-3] Goal Plan of Care Note [code = 05632-4] Goal Plan of Care Note [code = 09806-6] Goal Plan of Care Note [code = 78157-0] Goal Plan of Care Note [code = 03295-4] Goal Plan of Care Note [code = 79961-4] Goal Plan of Care Note [code = 15253-4] Goal Plan of Care Note [code = 44573-9] Goal Plan of Care Note [code = 15987-6] Goal Plan of Care Note [code = 77661-9] Goal Plan of Care Note [code = 87230-0] Goal Plan of Care Note [code = 03664-7] Goal Plan of Care Note [code = 50591-2] Goal Plan of Care Note [code = 55924-6] Goal Plan of Care Note [code = 30081-9] Goal Plan of Care Note [code = 53956-7] Goal Plan of Care Note [code = 61280-0] Goal Plan of Care Note [code = 47380-0] Goal Plan of Care Note [code = 41797-0] Goal Plan of Care Note [code = 95911-1] Goal Plan of Care Note [code = 30054-8] Goal Plan of Care Note [code = 07503-6] Goal Plan of Care Note [code = 16731-9] Goal Plan of Care Note [code = 61392-6] Goal Plan of Care Note [code = 53387-3] Goal Plan of Care Note [code = 76207-4] Goal Plan of Care Note [code = 94545-5] Goal Plan of Care Note [code = 79123-2] Goal Plan of Care Note [code = 57236-8] Goal Plan of Care Note [code = 39679-5] Goal Plan of Care Note [code = 85027-9] Goal Plan of Care Note [code = 78298-1] Goal Plan of Care Note [code = 25728-0] Goal Plan of Care Note [code = 26468-2] Goal Plan of Care Note [code = 70319-1] Goal Plan of Care Note [code = 28604-7] Goal Plan of Care Note [code = 40688-6] Goal Plan of Care Note [code = 07242-9] Goal Plan of Care Note [code = 00941-9] Goal Plan of Care Note [code = 09935-6] Goal Plan of Care Note [code = 91458-7] Goal Plan of Care Note [code = 29531-8] Goal Plan of Care Note [code = 73983-8] Goal Plan of Care Note [code = 72873-0] Goal Plan of Care Note [code = 47774-1] Goal Plan of Care Note [code = 99327-1] Goal Plan of Care Note [code = 49373-3] Goal Plan of Care Note [code = 35511-3] Goal Plan of Care Note [code = 34716-5] Goal Plan of Care Note [code = 35195-3] Goal Plan of Care Note [code = 70397-7] Goal Plan of Care Note [code = 71966-4] Goal Plan of Care Note [code = 10353-8] Goal Plan of Care Note [code = 19667-9] Goal Plan of Care Note [code = 98328-8] Goal Plan of Care Note [code = 13204-3] Goal Plan of Care Note [code = 64160-8] Goal Plan of Care Note [code = 64259-9] Goal Plan of Care Note [code = 95401-8] Goal Plan of Care Note [code = 99733-8] Goal Plan of Care Note [code = 32964-8] Goal Plan of Care Note [code = 22191-5] Goal Plan of Care Note [code = 26517-0] Goal Plan of Care Note [code = 42866-5] Goal Plan of Care Note [code = 24954-1] Goal Plan of Care Note [code = 04277-0] Goal Plan of Care Note [code = 07209-9] Goal Plan of Care Note [code = 38448-6] Goal Plan of Care Note [code = 25091-7] Goal Plan of Care Note [code = 10708-6] Goal Plan of Care Note [code = 88488-1] Goal Plan of Care Note [code = 44347-2] Goal Plan of Care Note [code = 60095-7] Goal Plan of Care Note [code = 90160-6] Goal Plan of Care Note [code = 84787-2] Goal Plan of Care Note [code = 57651-6] Goal Plan of Care Note [code = 95301-2] Goal Plan of Care Note [code = 83886-4] Goal Plan of Care Note [code = 12747-0] Goal Plan of Care Note [code = 24272-8] Goal Plan of Care Note [code = 23424-3] Goal Plan of Care Note [code = 24543-3] Goal Plan of Care Note [code = 85514-9] Goal Plan of Care Note [code = 26925-7] Goal Plan of Care Note [code = 90424-4] Goal Plan of Care Note [code = 74266-5] Goal Plan of Care Note [code = 88907-2] Goal Plan of Care Note [code = 15905-4] Goal Plan of Care Note [code = 98082-1] Goal Plan of Care Note [code = 74166-7] Goal Plan of Care Note [code = 84123-2] Goal Plan of Care Note [code = 75922-7] Goal Plan of Care Note [code = 68649-8] Goal Plan of Care Note [code = 94160-7] Goal Plan of Care Note [code = 98305-2] Goal Plan of Care Note [code = 09263-5] Goal Plan of Care Note [code = 37777-8] Goal Plan of Care Note [code = 83115-5] Goal Plan of Care Note [code = 70846-6] Goal Plan of Care Note [code = 91764-0] Goal Plan of Care Note [code = 50628-1] Goal Plan of Care Note [code = 52093-6] Goal Plan of Care Note [code = 73523-1] Goal Plan of Care Note [code = 62601-9] Goal Plan of Care Note [code = 26392-7] Goal Plan of Care Note [code = 32796-6] Goal Plan of Care Note [code = 38402-1] Goal Plan of Care Note [code = 37310-7] Goal Plan of Care Note [code = 57400-4] Goal Plan of Care Note [code = 54244-1] Goal Plan of Care Note [code = 74745-1] Goal Plan of Care Note [code = 50769-3] Goal Plan of Care Note [code = 77270-8] Goal Plan of Care Note [code = 76076-6] Goal Plan of Care Note [code = 81752-4] Goal Plan of Care Note [code = 95407-3] Goal Plan of Care Note [code = 89346-1] Goal Plan of Care Note [code = 98942-2] Goal Plan of Care Note [code = 92305-6] Goal Plan of Care Note [code = 11739-6] Goal Plan of Care Note [code = 28695-3] Goal Plan of Care Note [code = 22115-2] Goal Plan of Care Note [code = 57446-9] Goal Plan of Care Note [code = 92080-3] Goal Plan of Care Note [code = 39015-0] Goal Plan of Care Note [code = 31160-4] Goal Plan of Care Note [code = 58820-8] Goal Plan of Care Note [code = 99868-7] Goal Plan of Care Note [code = 53058-8] Goal Plan of Care Note [code = 59765-0] Goal Plan of Care Note [code = 53617-1] Goal Plan of Care Note [code = 37836-3] Goal Plan of Care Note [code = 51092-7] Goal Plan of Care Note [code = 94669-0] Goal Plan of Care Note [code = 75531-2] Goal Plan of Care Note [code = 30126-6] Goal Plan of Care Note [code = 38994-1] Goal Plan of Care Note [code = 92566-3] Goal Plan of Care Note [code = 68339-0] Goal Plan of Care Note [code = 06073-8] Goal Plan of Care Note [code = 70477-0] Goal Plan of Care Note [code = 45931-5] Goal Plan of Care Note [code = 57627-2] Goal Plan of Care Note [code = 29714-6] Goal Plan of Care Note [code = 92001-6] Goal Plan of Care Note [code = 93592-3] Goal Plan of Care Note [code = 87775-2] Goal Plan of Care Note [code = 76020-4] Goal Plan of Care Note [code = 21542-1] Goal Plan of Care Note [code = 53421-4] Goal Plan of Care Note [code = 73676-0] Goal Plan of Care Note [code = 98511-0] Goal Plan of Care Note [code = 76205-3] Goal Plan of Care Note [code = 97059-2] Goal Plan of Care Note [code = 52197-8] Goal Plan of Care Note [code = 87128-4] Goal Plan of Care Note [code = 32599-1] Goal Plan of Care Note [code = 32488-8] Goal Plan of Care Note [code = 12328-7] Goal Plan of Care Note [code = 87440-6] Goal Plan of Care Note [code = 97803-2] Goal Plan of Care Note [code = 99354-0] Goal Plan of Care Note [code = 40153-1] Goal Plan of Care Note [code = 58774-9] Goal Plan of Care Note [code = 69383-8] Goal Plan of Care Note [code = 82106-8] Goal Plan of Care Note [code = 81866-9] Goal Plan of Care Note [code = 51964-2] Goal Plan of Care Note [code = 67862-6] Goal Plan of Care Note [code = 72530-4] Goal Plan of Care Note [code = 23816-4] Goal Plan of Care Note [code = 77669-5] Goal Plan of Care Note [code = 66395-7] Goal Plan of Care Note [code = 15288-2] Goal Plan of Care Note [code = 91280-6] Goal Plan of Care Note [code = 76246-9] Goal Plan of Care Note [code = 65017-5] Goal Plan of Care Note [code = 64106-2] Goal Plan of Care Note [code = 82689-0] Goal Plan of Care Note [code = 74950-1] Goal Plan of Care Note [code = 59252-8] Goal Plan of Care Note [code = 32573-2] Goal Plan of Care Note [code = 69747-3] Goal Plan of Care Note [code = 97827-2] Goal Plan of Care Note [code = 71730-2] Goal Plan of Care Note [code = 83520-9] Goal Plan of Care Note [code = 71613-0] Goal Plan of Care Note [code = 15579-8] Goal Plan of Care Note [code = 09199-6] Goal Plan of Care Note [code = 07612-0] Goal Plan of Care Note [code = 27247-5] Goal Plan of Care Note [code = 35394-6] Goal Plan of Care Note [code = 62351-3] Goal Plan of Care Note [code = 60966-7] Goal Plan of Care Note [code = 98608-9] Goal Plan of Care Note [code = 00619-8] Goal Plan of Care Note [code = 04116-2] Goal Plan of Care Note [code = 26399-6] Goal Plan of Care Note [code = 03429-0] Goal Plan of Care Note [code = 72930-4] Goal Plan of Care Note [code = 52033-2] Goal Plan of Care Note [code = 62132-4] Goal Plan of Care Note [code = 00377-4] Goal Plan of Care Note [code = 67667-7] Goal Plan of Care Note [code = 67574-7] Goal Plan of Care Note [code = 99874-6] Goal Plan of Care Note [code = 66589-5] Goal Plan of Care Note [code = 12417-2] Goal Plan of Care Note [code = 53209-1] Goal Plan of Care Note [code = 91339-8] Goal Plan of Care Note [code = 95683-2] Goal Plan of Care Note [code = 12296-2] Goal Plan of Care Note [code = 56029-2] Goal Plan of Care Note [code = 20730-5] Goal Plan of Care Note [code = 17727-2] Goal Plan of Care Note [code = 46899-6] Goal Plan of Care Note [code = 88817-2] Goal Plan of Care Note [code = 32008-9] Goal Plan of Care Note [code = 00678-7] Goal Plan of Care Note [code = 86847-9] Goal Plan of Care Note [code = 99064-4] Goal Plan of Care Note [code = 97525-2] Goal Plan of Care Note [code = 61446-8] Goal Plan of Care Note [code = 04602-8] Goal Plan of Care Note [code = 49309-1] Goal Plan of Care Note [code = 70216-1] Goal Plan of Care Note [code = 16693-5] Goal Plan of Care Note [code = 50181-3] Goal Plan of Care Note [code = 05462-4] Goal Plan of Care Note [code = 42239-6] Goal Plan of Care Note [code = 13969-3] Goal Plan of Care Note [code = 72438-4] Goal Plan of Care Note [code = 45485-5] Goal Plan of Care Note [code = 84733-4] Goal Plan of Care Note [code = 78224-4] Goal Plan of Care Note [code = 68455-4] Goal Plan of Care Note [code = 72897-2] Goal Plan of Care Note [code = 69486-6] Goal Plan of Care Note [code = 73749-4] Goal Plan of Care Note [code = 23695-7] Goal Plan of Care Note [code = 39868-4] Goal Plan of Care Note [code = 83494-5] Goal Plan of Care Note [code = 68699-2] Goal Plan of Care Note [code = 37068-5] Goal Plan of Care Note [code = 24592-5] Goal Plan of Care Note [code = 27452-8] Goal Plan of Care Note [code = 15884-6] Goal Plan of Care Note [code = 29372-1] Goal Plan of Care Note [code = 93177-6] Goal Plan of Care Note [code = 92914-7] Goal Plan of Care Note [code = 65992-4] Goal Plan of Care Note [code = 36816-5] Goal Plan of Care Note [code = 92137-6] Goal Plan of Care Note [code = 18303-2] Goal Plan of Care Note [code = 82715-9] Goal Plan of Care Note [code = 29786-8] Goal Plan of Care Note [code = 04813-7] Goal Plan of Care Note [code = 29470-8] Goal Plan of Care Note [code = 47546-6] Goal Plan of Care Note [code = 62751-7] Goal Plan of Care Note [code = 81807-2] Goal Plan of Care Note [code = 93323-8] Goal Plan of Care Note [code = 45942-2] Goal Plan of Care Note [code = 74713-0] Goal Plan of Care Note [code = 11730-1] Goal Plan of Care Note [code = 06851-8] Goal Plan of Care Note [code = 02384-8] Goal Plan of Care Note [code = 74758-9] Goal Plan of Care Note [code = 30835-9] Goal Plan of Care Note [code = 09211-8] Goal Plan of Care Note [code = 42185-2] Goal Plan of Care Note [code = 97422-9] Goal Plan of Care Note [code = 20464-4] Goal Plan of Care Note [code = 51626-9] Goal Plan of Care Note [code = 04595-7] Goal Plan of Care Note [code = 16070-2] Goal Plan of Care Note [code = 53870-9] Goal Plan of Care Note [code = 32554-2] Goal Plan of Care Note [code = 23406-5] Goal Plan of Care Note [code = 71826-2] Goal Plan of Care Note [code = 02899-0] Goal Plan of Care Note [code = 99539-9] Goal Plan of Care Note [code = 99816-4] Goal Plan of Care Note [code = 45208-4] Goal Plan of Care Note [code = 56662-6] Goal Plan of Care Note [code = 00850-1] Goal Plan of Care Note [code = 18460-0] Goal Plan of Care Note [code = 70789-1] Goal Plan of Care Note [code = 36614-3] Goal Plan of Care Note [code = 81995-5] Goal Plan of Care Note [code = 34973-8] Goal Plan of Care Note [code = 42291-5] Goal Plan of Care Note [code = 28655-5] Goal Plan of Care Note [code = 22375-0] Goal Plan of Care Note [code = 30204-5] Goal Plan of Care Note [code = 55144-5] Goal Plan of Care Note [code = 25058-3] Goal Plan of Care Note [code = 37542-9] Goal Plan of Care Note [code = 27446-4] Goal Plan of Care Note [code = 93350-3] Goal Plan of Care Note [code = 23411-0] Goal Plan of Care Note [code = 70461-0] Goal Plan of Care Note [code = 37555-4] Goal Plan of Care Note [code = 47569-4] Goal Plan of Care Note [code = 12429-3] Goal Plan of Care Note [code = 36568-6] Goal Plan of Care Note [code = 37843-1] Goal Plan of Care Note [code = 18158-3] Goal Plan of Care Note [code = 42324-0] Goal Plan of Care Note [code = 66739-5] Goal Plan of Care Note [code = 96810-8] Goal Plan of Care Note [code = 36707-3] Goal Plan of Care Note [code = 49119-3] Goal Plan of Care Note [code = 72090-5] Goal Plan of Care Note [code = 68344-2] Goal Plan of Care Note [code = 48368-1] Goal Plan of Care Note [code = 91553-9] Goal Plan of Care Note [code = 11532-2] Goal Plan of Care Note [code = 92522-7] Goal Plan of Care Note [code = 29997-3] Goal Plan of Care Note [code = 67433-6] Goal Plan of Care Note [code = 25067-8] Goal Plan of Care Note [code = 72970-3] Goal Plan of Care Note [code = 23087-6] Goal Plan of Care Note [code = 33802-3] Goal Plan of Care Note [code = 19121-8] Goal Plan of Care Note [code = 86460-5] Goal Plan of Care Note [code = 05883-1] Goal Plan of Care Note [code = 36859-8] Goal Plan of Care Note [code = 59187-0] Goal Plan of Care Note [code = 11861-2] Goal Plan of Care Note [code = 41395-0] Goal Plan of Care Note [code = 31987-7] Encounters Start End Encounter Admission Attending Care Care Encounter Source Date/Time Date/Time Type Type Clinicians Facility Department ID 2022-03-14 2022-03-14 Outpatient SFA [facility] [id number] Thai 16:14:51 16:14:51 1214 F Robert 2022-03-07 2022-03-07 Outpatient SFA SFA [id number] 022 Thai 08:57:39 08:57:39 1207 F Robert 2022-03-06 2022-03-06 Outpatient SFA [facility] [id number] 022 Thai 08:57:24 08:57:24 1206 F Robert 2022-03-06 2022-03-06 Ashlee HIDALGO 1.2.840.114 [id number] Univers 00:00:00 00:00:00 Only Unassigned, LINA 350.1.13.10 ity of [place] [facility] 4.2.7.2.686 Renzo as [phone] [address] 2022-03-06 2022-03-06 Outpatient [id number] [id number] 00:00:00 00:00:00 Visit 7948-4ece 948-4ece-b -a531-917 725-393fb5 pw386q20l 34c61e 2022-03-04 2022-03-04 Outpatient SFA SFA [id number] 022 Thai 09:40:39 09:40:39 1204 F Robert 2022-03-04 2022-03-04 Outpatient [id number]- [id number] 3f [id number]-4 00:00:00 00:00:00 Visit 9m18-84z3 x37-64i6-9 -8of5-6ir fc3-7df7dd 8rzid1340 it5620 2022-03-02 2022-03-02 Outpatient SFA SFA [id number] 022 Thai 08:08:33 08:08:33 1202 F Robert 2022-02-27 2022-02-27 Outpatient [id number]- [id number] 9b 7n8534-2 00:00:00 00:00:00 Visit 5955-473f 955-473f-b -x4j3-oi9 4d3-fg52rp 6mv5g7488 6i6111 2022-02-26 2022-02-26 Outpatient SFA SFA [id number] 022 Thai 14:53:39 14:53:39 1128 F Robert 2022-02-26 2022-02-26 Outpatient 1965cgf4- [id number] 11 94vam5-5 00:00:00 00:00:00 Visit 753b-4256 53b-4256-8 -1yj0-t73 aa5-p0119p 20o2821vd 5360ba 2022-02-24 2022-02-24 Emergency X AUFDERHEIDE [facility] ERT [id number] Univers 04:55:00 06:12:00 , DOLORES itzari of [facility] 2022-02-242022-02-24 Emergency Aufderheide [facility] 1.2.[id number] [facility] 04:55:00 06:12:00 , Dolores YAN 350.1.13.10 i ty of [place] 4.2.7.2.686 [facility] [id number] [facility] [address] 2022-02-20 2022-02-20 Outpatient SFA SFA [id number] 022 Thai 11:12:21 11:12:21 1122 F Robert 2022-02-20 2022-02-20 Outpatient [id number]- [id number] a8 4577j2-g 00:00:00 00:00:00 Visit hc25-7iu5 n49-1zt7-7 -857d-6cd 57d-1bl218 835z0to4t a4ee5c 2022-02-15 2022-02-15 Outpatient 7l0u89wt- [id number] 3d 2r67go-7 00:00:00 00:00:00 Visit 2fcc-405f fcc-405f-9 -66j0-236 6h5-90934b 54m274935 595367 5643-11-16 2022-02-14 Outpatient SFA SFA [id number] 022 Thai 14:09:23 14:09:23 1116 F Robert 2022-02-14 2022-02-14 Outpatient [id number]- [id number] 01m293-u 00:00:00 00:00:00 Visit n51m-04el 69c-48ba-8 -1v73-79v v74-26k470 6105ldu2s 5cde0b 2022-02-06 2022-02-06 Outpatient SFA SFA [id number] 022 Thai 10:02:54 10:02:54 1108 F Robert 2022-02-06 2022-02-06 Outpatient [id number]- [id number] 26 01q303-3 00:00:00 00:00:00 Visit 4c07-4y58 a48-6o20-a -f5u6-49j 6v2-74f9vn 9bxm8z4ev c7a7ab 2022-01-15 2022-01-15 Emergency X [facility] ERT [id number] Univers 04:57:00 06:53:00 RUSTAM ity of [facility] 2022-01-15 2022-01-15 Emergency [facility] [id number] Univers 04:57:00 06:53:00 Rustam YAN 350.1.13.10 ity [facility] 4.2.7.2.686 [facility] [id number] [facility] [address] 2022-01-02 2022-01-02 Outpatient [facility] [id number] 022 Thai 09:09:54 09:09:54 1004 F Robert 2022-01-02 2022-01-02 Outpatient 0u2j8vau- [id number] 2f 6i4xjm-5 00:00:00 00:00:00 Visit 784c-4105 84c-4105-8 -8y56-8uq z40-4qox58 x91s9l605 h2k401 2021-12-26 2021-12-26 Outpatient 13em0z1n- [id number] 70 se2d6i-4 00:00:00 00:00:00 Visit 3fda-47a9 fda-47a9-b -o689-71a 352-41ee21 j902002ay 9444ab 2021-11-20 2021-11-20 GWEN Amanda 1.2.840.114 [id number] Univers 00:00:00 00:00:00 (Out) Humberto MILLS 350.1.13.10 [facility] 4.2.7.2.686 [facility] [id number] [facility] [address] 2021-10-30 2021-10-30 Outpatient [id number]- [id number] c7 161nc3-7 00:00:00 00:00:00 Visit 7xm6-85gh ad8-42bd-9 -9211-800 211-800c65 j1039jcy3 14fbe3 2021-10-03 2021-10-03 Outpatient [id number]- [id number] 5d 9l1734-7 00:00:00 00:00:00 Visit 0049-42e3 049-42e3-8 -8699-e24 699-e24b68 k0367333o 63911s 2021-08-09 2021-08-09 Orders Doctor GWEN 1.2.840.114 [id number] Univers 00:00:00 00:00:00 Only Unassigned, LINA 350.1.13.10 ity of [place] [facility] 4.2.7.2.686 Renzo as [id number] [address] 2019-05-01 2019-05-03 Outside nullFlavo [facility] [id number] Memoria 19:12:13 05:59:59 Medical r Gastroenter 00 l Records ology Sugar Herm [facility] 2019-05-01 2019-05-03 Outside nullFlavo [facility] [id number] Memoria 19:12:13 05:59:59 Medical r Gastroenter 00 l Records ology Sugar Herm [facility] 2019-05-01 2019-05-02 Outpatient MG [facility] [id number] 13:12:13 23:59:59 00 2019-04-24 2019-04-25 Outpatient nullFlavo [facility] [id number] Memoria 17:00:00 05:59:59 r Gastroenter 00 l ology Sugar Herm [facility] 2019-04-24 2019-04-25 Outpatient nullFlavo [facility] [id number] Memoria 17:00:00 05:59:59 r Gastroenter 00 l ology Sugar Herm [facility] 2019-04-24 2019-04-24 Outpatient RENATO IrwinMG [facility] [id number] 11:00:00 23:59:59 Nadim Torey 00 2019-04-24 2019-04-24 Outpatient KRYSTA [facility] [id number] Memoria 11:00:00 11:00:00 00 l [place] 2019-04-03 2019-04-03 Outpatient X FELIBERTO [facility] [id number] Univers 04:46:22 18:43:00 [facility] Results Test Description Test Time Test Comments Results Result Comments Source OCCULT BLD,FECAL,IMMUNOASSAY DIAG 2022-03-20 12:54:25 Test Item Value Reference Range Interpretation Comme nts OCCULT BLD, FECAL (test code NEGATIVE NEGATIVE UNLESS OTHERWISE INDICATED, ALL = 62077) TESTING PERFORM ED ATCLINICAL PATHOLOGY LABOR [employer] [address] [place] [address] 90703 CRM SOLUTION ARCHITECT: TANNER VELASQUEZ M.D. CLIA NUMBER [id number] [facility] ACCREDITATION N O. [id number] TROPONIN [id number] 12:00:06 Test Item Value Reference Interpretation Comments Range TROPONIN I (test 0.009 ng/mL See_Comment [Automated code = 8183225507) message] The system which generated this result [...] biotin. Lab Interpretation Normal (test code = 56232-8) [facility]. METABOLIC PANEL (35053)2022-02-24 11:48:40 Test Item Value Reference Range Interpretation Comments NA (test code = 138 mmol/L 135-145 6647619136) K (test code = 4.9 mmol/L 3.5-5.0 7666855052) CL (test code = 104 mmol/L 98-108 4660022268) CO2 TOTAL (test code = 24 mmol/L 23-31 2357947866) AGAP (test code = 2-16 8242626730) BUN (test code = 15 mg/dL 7-23 6967314962) GLUCOSE (test code = 106 mg/dL 70-110 5879279233) CREATININE (test code = 0.75 mg/dL 0.50-1.04 4647935685) TOTAL BILI (test code = 0.8 mg/dL 0.1-1.7 7999058253) CALCIUM (test code = 10.7 mg/dL 8.6-10.6 H 0330317598) T PROTEIN (test code = 7.7 g/dL 6.3-8.2 3780136977) ALBUMIN (test code = 4.8 g/dL 3.5-5.0 9510387321) ALK PHOS (test code = 100 U/L 34-122 1228812068) ALTv (test code = 39 U/L 5-35 H 1742-6) AST(SGOT) (test code = 35 U/L 13-40 5268900511) eGFR (test code = mL/min/1.73m2 5923694807) OFELIA (test code = OFELIA) Association of [...] tests). Lab Interpretation Abnormal (test code = 53804-7) [facility] [id number] 11:48:25 Test Item Value Reference Range Interpretation Comments LIPASE (test code = 0040790133) 41 U/L 0-220 Lab Interpretation (test code = Normal 04230-9) [facility]26 11:43:22 Test Item Value Reference Range Interpretation Comments APTT Patient (test See_Comment [Automat ed code = 3173-2) message] The system which generated this result transmitted reference range : 23 - 38 Seconds . The reference range was not used to interpr et this result as normal/abnormal . OFELIA (test code = OFELIA) The [facility] patient population mean normal value for aPTT is 30 seconds. Lab Interpretation Normal (test code = 81345-6) [facility] SouthPROTHROMBIN TIME / [id number] 11:41:21 Test Item Value Reference Range Interpretation [...] tions. Lab Interpretation (test Normal code = 68913-1) [facility] SouthCB WITH [id number] 11:18:58 Test Item Value Reference Range Interpretation Comments WBC (test code = See_Comment [Automated 8590-2) message] The sy stem which generated this result transmitted reference range : 4.30 - 11.10 10*3/?L. The reference range was not used to interpret this result as normal/abnormal . RBC (test code = See_Comment [Automated 389-8) message] The sy stem which generated this [...] RDW-SD (test code = 45.1 fL 39.0-49.9 39115-6) RDW-CV (test code = 13.7 % 12.0-15.5 788-0) PLT (test code = See_Comment [Automated 777-3) message] The sy stem which generated this result transmitted reference range : 166 - 358 10*3/ ?L. The reference r emilee was not used to interpret this result as normal/abnormal . MPV (test code = 9.6 fL 9.5-12.9 70827-7) NRBC/100 WBC (test See_Comment [Automat ed code = 5373060789) message] The system which generated this result transmitted reference range : 0.0 - 10.0 /100 WBCs. The refer ence range was not u sed to interpret th is result as normal/abnormal . NRBC x10^3 (test code See_Comment [Auto mated = 8103205991) message] The s ystem which generated this result transmitted reference range : 10*3/?L. The reference range was not used to interpret this result as normal/abnormal . GRAN MAT (NEUT) % 76.3 % (test code = 770-8) IMM GRAN % (test code 0.40 % = 3902061618) LYMPH % (test code = 12.8 % 736-9) MONO % (test code = 9.2 % 5905-5) EOS % (test code = 0.7 % 713-8) BASO % (test code = 0.6 % 706-2) GRAN MAT x10^3(ANC) 5.48 10*3/uL 1.88-7.09 (test code = 0044637252) IMM GRAN x10^3 (test 0.03 10*3/uL 0.00-0.06 code = 4453106627) LYMPH x10^3 (test code 0.92 10*3/uL 1.32-3.29 L = 731-0) MONO x10^3 (test code 0.66 10*3/uL 0.33-0.92 = 742-7) EOS x10^3 (test code = 0.05 10*3/uL 0.03-0.39 711-2) BASO x10^3 (test code 0.04 10*3/uL 0.01-0.07 = 704-7) Lab Interpretation Abnormal (test code = 92637-7) [facility] TEST, THINPREP, [id number] 00:00:00 Test Item Value Reference Range Interpretation Comments SOURCE: (test code = 8001) Cervical/Endocervic al SLIDES: (test code = 8011) 1 LMP: (test code = 8021) SEE NOTE SPECIMEN ADEQUACY: (test (NOTE) code = 74306) INTERPRETATION: (test code LSIL/EPITH. = 28316) ABNORMALITY; SEE BELOW OTHER COMMENTS: (test code (NOTE) = 8081) RIP TAILER: (test Nazia Penah code = 8101) LIGIA Longoria(ASCP)[facility] PATHOLOGIST INTERPRETATION Carmen Andrade BY: (test code = 8122) M.D. LOCATION: (test code = (NOTE) 08950) CPT: (test code = 8140) (NOTE) PAP TEST, THINPREP, [id number] 00:00:00 Test Item Value Reference Range Interpretation Comments SOURCE: (test code = 8001) Cervical/Endocervic al SLIDES: (test code = 8011) 1 LMP: (test code = 8021) SEE NOTE SPECIMEN ADEQUACY: (test (NOTE) code = 52506) INTERPRETATION: (test code LSIL/EPITH. = 46968) ABNORMALITY; SEE BELOW OTHER COMMENTS: (test code (NOTE) = 8081) RIP TAILER: (test Nazia Penah code = 8101) SwatiCT(ASCP)[facility] PATHOLOGIST INTERPRETATION Carmen Andrade BY: (test code = 8122) M.D. LOCATION: (test code = (NOTE) 49753) CPT: (test code = 8140) (NOTE) PAP TEST, THINPREP, [id number] 00:00:00 Test Item Value Reference Range Interpretation Comments SOURCE: (test code = 8001) Cervical/Endocervic al SLIDES: (test code = 8011) 1 LMP: (test code = 8021) SEE NOTE SPECIMEN ADEQUACY: (test (NOTE) code = 31049) INTERPRETATION: (test code LSIL/EPITH. = 51149) ABNORMALITY; SEE BELOW OTHER COMMENTS: (test code (NOTE) = 8081) RIP TAILER: (test Nazia Gibson code = 8101) Longoria,CT(ASCP)[facility] PATHOLOGIST INTERPRETATION [facility] BY: (test code = 8122) M.D. LOCATION: (test code = (NOTE) 68758) CPT: (test code = 8140) (NOTE) PAP TEST, THINPREP, [id number] 00:00:00 Test Item Value Reference Range Interpretation Comments SOURCE: (test code = 8001) Cervical/Endocervic al SLIDES: (test code = 8011) 1 LMP: (test code = 8021) SEE NOTE SPECIMEN ADEQUACY: (test (NOTE) code = 74228) INTERPRETATION: (test code LSIL/EPITH. = 39342) ABNORMALITY; SEE BELOW OTHER COMMENTS: (test code (NOTE) = 8081) RIP TAILER: (test Nazia Gibson code = 8101) Longoria,CT(ASCP)[facility] PATHOLOGIST INTERPRETATION [facility] BY: (test code = 8122) M.D. LOCATION: (test code = (NOTE) 50725) CPT: (test code = 8140) (NOTE) PAP TEST, THINPREP, [id number] 00:00:00 Test Item Value Reference Range Interpretation Comments SOURCE: (test code = 8001) Cervical/Endocervic al SLIDES: (test code = 8011) 1 LMP: (test code = 8021) SEE NOTE SPECIMEN ADEQUACY: (test (NOTE) code = 80597) INTERPRETATION: (test code LSIL/EPITH. = 68700) ABNORMALITY; SEE BELOW OTHER COMMENTS: (test code (NOTE) = 8081) RIP TAILER: (test Nazia Gibson code = 8101) Longoria,CT(ASCP)[facility] PATHOLOGIST INTERPRETATION [facility], BY: (test code = 8122) M.D. LOCATION: (test code = (NOTE) 79075) CPT: (test code = 8140) (NOTE) PAP TEST, THINPREP, [id number] 00:00:00 Test Item Value Reference Range Interpretation Comments SOURCE: (test code = 8001) Cervical/Endocervic al SLIDES: (test code = 8011) 1 LMP: (test code = 8021) SEE NOTE SPECIMEN ADEQUACY: (test (NOTE) code = 37065) INTERPRETATION: (test code LSIL/EPITH. = 46705) ABNORMALITY; SEE BELOW OTHER COMMENTS: (test code (NOTE) = 8081) RIP TAILER: (test Nazia Gibson code = 8101) Longoria,CT(ASCP)IAC PATHOLOGIST INTERPRETATION [facility], BY: (test code = 8122) M.D. LOCATION: (test code = (NOTE) 41803) CPT: (test code = 8140) (NOTE) PAP TEST, THINPREP, [id number] 00:00:00 Test Item Value Reference Range Interpretation Comments SOURCE: (test code = 8001) Cervical/Endocervic al SLIDES: (test code = 8011) 1 LMP: (test code = 8021) SEE NOTE SPECIMEN ADEQUACY: (test (NOTE) code = 16083) INTERPRETATION: (test code LSIL/EPITH. = 59958) ABNORMALITY; SEE BELOW OTHER COMMENTS: (test code (NOTE) = 8081) RIP TAILER: (test Nazia Gibson code = 8101) Longoria,CT(ASCP)IAC PATHOLOGIST INTERPRETATION [facility], BY: (test code = 8122) M.D. LOCATION: (test code = (NOTE) 98009) CPT: (test code = 8140) (NOTE) PAP TEST, THINPREP, [id number] 00:00:00 Test Item Value Reference Range Interpretation Comments SOURCE: (test code = 8001) Cervical/Endocervic al SLIDES: (test code = 8011) 1 LMP: (test code = 8021) SEE NOTE SPECIMEN ADEQUACY: (test (NOTE) code = 89301) INTERPRETATION: (test code LSIL/EPITH. = 02632) ABNORMALITY; SEE BELOW OTHER COMMENTS: (test code (NOTE) = 8081) RIP TAILER: (test Nazia Gibson code = 8101) Longoria,CT(ASCP)[facility] PATHOLOGIST INTERPRETATION [facility], BY: (test code = 8122) M.D. LOCATION: (test code = (NOTE) 58267) CPT: (test code = 8140) (NOTE) PAP TEST, THINPREP, [id number] 00:00:00 Test Item Value Reference Range Interpretation Comments SOURCE: (test code = 8001) Cervical/Endocervic al SLIDES: (test code = 8011) 1 LMP: (test code = 8021) SEE NOTE SPECIMEN ADEQUACY: (test (NOTE) code = 46409) INTERPRETATION: (test code LSIL/EPITH. = 73607) ABNORMALITY; SEE BELOW OTHER COMMENTS: (test code (NOTE) = 8081) RIP TAILER: (test Nazia Gibson code = 8101) Longoria,CT(ASCP)IAC PATHOLOGIST INTERPRETATION Carmen Listrom, BY: (test code = 8122) M.D. LOCATION: (test code = (NOTE) 38388) CPT: (test code = 8140) (NOTE) PAP TEST, THINPREP, [id number] 00:00:00 Test Item Value Reference Range Interpretation Comments SOURCE: (test code = 8001) Cervical/Endocervic al SLIDES: (test code = 8011) 1 LMP: (test code = 8021) SEE NOTE SPECIMEN ADEQUACY: (test (NOTE) code = 91842) INTERPRETATION: (test code LSIL/EPITH. = 86654) ABNORMALITY; SEE BELOW OTHER COMMENTS: (test code (NOTE) = 8081) RIP TAILER: (test Nazia Gibson code = 8101) Longoria,CT(ASCP)IAC PATHOLOGIST INTERPRETATION Carmen Listrom, BY: (test code = 8122) M.D. LOCATION: (test code = (NOTE) 03470) CPT: (test code = 8140) (NOTE) PAP TEST, THINPREP, [id number] 00:00:00 Test Item Value Reference Range Interpretation Comments SOURCE: (test code = 8001) Cervical/Endocervic al SLIDES: (test code = 8011) 1 LMP: (test code = 8021) SEE NOTE SPECIMEN ADEQUACY: (test (NOTE) code = 76986) INTERPRETATION: (test code LSIL/EPITH. = 48630) ABNORMALITY; SEE BELOW OTHER COMMENTS: (test code (NOTE) = 8081) RIP TAILER: (test Nazia Gibson code = 8101) Longoria,CT(ASCP)I[facility] PATHOLOGIST INTERPRETATION Carmen Listrom, BY: (test code = 8122) M.D. LOCATION: (test code = (NOTE) 91344) CPT: (test code = 8140) (NOTE) PAP TEST, THINPREP, [id number] 00:00:00 Test Item Value Reference Range Interpretation Comments SOURCE: (test code = 8001) Cervical/Endocervic al SLIDES: (test code = 8011) 1 LMP: (test code = 8021) SEE NOTE SPECIMEN ADEQUACY: (test (NOTE) code = 05115) INTERPRETATION: (test code LSIL/EPITH. = 05309) ABNORMALITY; SEE BELOW OTHER COMMENTS: (test code (NOTE) = 8081) RIP TAILER: (test Nazia Gibson code = 8101) Longoria,CT(ASCP)IAC PATHOLOGIST INTERPRETATION Carmen Listrom, BY: (test code = 8122) M.D. LOCATION: (test code = (NOTE) 65200) CPT: (test code = 8140) (NOTE) PAP TEST, THINPREP, [id number] 00:00:00 Test Item Value Reference Range Interpretation Comments SOURCE: (test code = 8001) Cervical/Endocervic al SLIDES: (test code = 8011) 1 LMP: (test code = 8021) SEE NOTE SPECIMEN ADEQUACY: (test (NOTE) code = 97885) INTERPRETATION: (test code LSIL/EPITH. = 10602) ABNORMALITY; SEE BELOW OTHER COMMENTS: (test code (NOTE) = 8081) RIP TAILER: (test Nazia Gibson code = 8101) Longoria,CT(ASCP)IAC PATHOLOGIST INTERPRETATION [facility], BY: (test code = 8122) M.D. LOCATION: (test code = (NOTE) 55724) CPT: (test code = 8140) (NOTE) PAP TEST, THINPREP, [id number] 00:00:00 Test Item Value Reference Range Interpretation Comments SOURCE: (test code = 8001) Cervical/Endocervic al SLIDES: (test code = 8011) 1 LMP: (test code = 8021) SEE NOTE SPECIMEN ADEQUACY: (test (NOTE) code = 73579) INTERPRETATION: (test code LSIL/EPITH. = 30085) ABNORMALITY; SEE BELOW OTHER COMMENTS: (test code (NOTE) = 8081) RIP TAILER: (test Nazia Gibson code = 8101) Longoria,CT(ASCP)IAC PATHOLOGIST INTERPRETATION Carmen Listrom, BY: (test code = 8122) [place] LOCATION: (test code = (NOTE) 33625) CPT: (test code = 8140) (NOTE) HPV HIGH RISK WITH GENOTYPE, [id number] 00:00:00 Test Item Value Reference Range Interpretation Comments HPV HIGH RISK INTERP (test code = POSITIVE 34009) HPV 16 (test code = 05204) NEGATIVE HPV 18 (test code = 37162) NEGATIVE HPV, HR, OTHER GENOTYPES (test code POSITIVE = 62225) HPV HIGH RISK WITH GENOTYPE, [id number] 00:00:00 Test Item Value Reference Range Interpretation Comments HPV HIGH RISK INTERP (test code = POSITIVE 44736) HPV 16 (test code = 01317) NEGATIVE HPV 18 (test code = 74612) NEGATIVE HPV, HR, OTHER GENOTYPES (test code POSITIVE = 15373) HPV HIGH RISK WITH GENOTYPE, [id number] 00:00:00 Test Item Value Reference Range Interpretation Comments HPV HIGH RISK INTERP (test code = POSITIVE 35656) HPV 16 (test code = 26217) NEGATIVE HPV 18 (test code = 58078) NEGATIVE HPV, HR, OTHER GENOTYPES (test code POSITIVE = 28221) HPV HIGH RISK WITH GENOTYPE, [id number] 00:00:00 Test Item Value Reference Range Interpretation Comments HPV HIGH RISK INTERP (test code = POSITIVE 29949) HPV 16 (test code = 79832) NEGATIVE HPV 18 (test code = 06034) NEGATIVE HPV, HR, OTHER GENOTYPES (test code POSITIVE = 19517) HPV HIGH RISK WITH GENOTYPE, [id number] 00:00:00 Test Item Value Reference Range Interpretation Comments HPV HIGH RISK INTERP (test code = POSITIVE 84665) HPV 16 (test code = 10863) NEGATIVE HPV 18 (test code = 15226) NEGATIVE HPV, HR, OTHER GENOTYPES (test code POSITIVE = 79767) HPV HIGH RISK WITH GENOTYPE, [id number] 00:00:00 Test Item Value Reference Range Interpretation Comments HPV HIGH RISK INTERP (test code = POSITIVE 06959) HPV 16 (test code = 81830) NEGATIVE HPV 18 (test code = 86632) NEGATIVE HPV, HR, OTHER GENOTYPES (test code POSITIVE = 94195) HPV HIGH RISK WITH GENOTYPE, [id number] 00:00:00 Test Item Value Reference Range Interpretation Comments HPV HIGH RISK INTERP (test code = POSITIVE 77934) HPV 16 (test code = 62776) NEGATIVE HPV 18 (test code = 53929) NEGATIVE HPV, HR, OTHER GENOTYPES (test code POSITIVE = 34929) HPV HIGH RISK WITH GENOTYPE, [id number] 00:00:00 Test Item Value Reference Range Interpretation Comments HPV HIGH RISK INTERP (test code = POSITIVE 20255) HPV 16 (test code = 03038) NEGATIVE HPV 18 (test code = 72617) NEGATIVE HPV, HR, OTHER GENOTYPES (test code POSITIVE = 55208) HPV HIGH RISK WITH GENOTYPE, [id number] 00:00:00 Test Item Value Reference Range Interpretation Comments HPV HIGH RISK INTERP (test code = POSITIVE 16002) HPV 16 (test code = 66672) NEGATIVE HPV 18 (test code = 32448) NEGATIVE HPV, HR, OTHER GENOTYPES (test code POSITIVE = 74447) HPV HIGH RISK WITH GENOTYPE, [id number] 00:00:00 Test Item Value Reference Range Interpretation Comments HPV HIGH RISK INTERP (test code = POSITIVE 87009) HPV 16 (test code = 00848) NEGATIVE HPV 18 (test code = 49531) NEGATIVE HPV, HR, OTHER GENOTYPES (test code POSITIVE = 48371) HPV HIGH RISK WITH GENOTYPE, [id number] 00:00:00 Test Item Value Reference Range Interpretation Comments HPV HIGH RISK INTERP (test code = POSITIVE 86006) HPV 16 (test code = 83435) NEGATIVE HPV 18 (test code = 81207) NEGATIVE HPV, HR, OTHER GENOTYPES (test code POSITIVE = 13908) HPV HIGH RISK WITH GENOTYPE, [id number] 00:00:00 Test Item Value Reference Range Interpretation Comments HPV HIGH RISK INTERP (test code = POSITIVE 98529) HPV 16 (test code = 32154) NEGATIVE HPV 18 (test code = 70075) NEGATIVE HPV, HR, OTHER GENOTYPES (test code POSITIVE = 31403) HPV HIGH RISK WITH GENOTYPE, [id number] 00:00:00 Test Item Value Reference Range Interpretation Comments HPV HIGH RISK INTERP (test code = POSITIVE 67312) HPV 16 (test code = 06913) NEGATIVE HPV 18 (test code = 58077) NEGATIVE HPV, HR, OTHER GENOTYPES (test code POSITIVE = 82256) HPV HIGH RISK WITH GENOTYPE, [id number] 00:00:00 Test Item Value Reference Range Interpretation Comments HPV HIGH RISK INTERP (test code = POSITIVE 36087) HPV 16 (test code = 46673) NEGATIVE HPV 18 (test code = 31703) NEGATIVE HPV, HR, OTHER GENOTYPES (test code POSITIVE = 03648) N-TERMINAL [id number] 11:32:35 Test Item Value Reference Range Interpretation Comments NT-proBNP (test code 422 pg/mL See_Comment H [Autom ated = [id number]) message] The system which generated this result transmitted reference range : <=125. The reference range was not used to interpret this result as normal/abnormal . OFELIA (test code = OFELIA) Biotin has been reported to cause a negative bias, interpret results relative to patient's use of biotin. Lab Interpretation Abnormal (test code = 58747-4) [facility] [id number] 10:51:52 Test Item Value Reference Interpretation Comments Range TROPONIN I (test 0.011 ng/mL See_Comment [Automated code = [id number]) message] The system which generated this result [...] biotin. Lab Interpretation Normal (test code = 58354-6) [facility]. METABOLIC PANEL (71932)2022-01-15 10:40:31 Test Item Value Reference Range Interpretation Comments NA (test code = 140 mmol/L 135-145 2567515486) K (test code = 3.7 mmol/L 3.5-5 1263825193) CL (test code = 107 mmol/L 98-108 2274201053) CO2 TOTAL (test code = 23 mmol/L 23-31 2320420053) AGAP (test code = 2-16 0307192140) BUN (test code = 11 mg/dL 7-23 8188066194) GLUCOSE (test code = 146 mg/dL 70-110 H 1188271420) CREATININE (test code = 0.65 mg/dL 0.5-1.04 9586621840) TOTAL BILI (test code = 0.7 mg/dL 0.1-1.1 9782592518) CALCIUM (test code = 10.6 mg/dL 8.6-10.6 6868715860) T PROTEIN (test code = 6.5 g/dL 6.3-8.2 5483127077) ALBUMIN (test code = 4.2 g/dL 3.5-5 4829710632) ALK PHOS (test code = 95 U/L 34-122 9033524569) ALTv (test code = 51 U/L 5-35 H 1742-6) AST(SGOT) (test code = 34 U/L 13-40 3788558442) eGFR (test code = mL/min/1.73m2 3990665855) OFELIA (test code = OFELIA) Association of [...] tests). Lab Interpretation Abnormal (test code = 60709-5) [facility] [id number] 10:39:50 Test Item Value Reference Range Interpretation Comments LIPASE (test code = 1677484509) 35 U/L 0-220 Lab Interpretation (test code = Normal 98805-1) [facility]17 10:32:27 Test Item Value Reference Range Interpretation Comments APTT Patient (test See_Comment [Automat ed code = 3173-2) message] The system which generated this result transmitted reference range : 23 - 38 Seconds . The reference range was not used to interpr et this result as normal/abnormal . OFELIA (test code = OFELIA) The [facility] patient population mean normal value for aPTT is 30 seconds. Lab Interpretation Normal (test code = 78537-4) [facility] SouthPROTHROMBIN TIME / [id number] 10:30:30 Test Item Value Reference Range Interpretation Comments PROTIME PATIENT (test See_Comment [Auto mated message] code = 5964-2) The system ich generated this result transmitted ref erence range: 12.0 - 1 4.7 Seconds. The re ference range was not u sed to interpret this result as normal/abnor mal. INR (test code = 6301-6) Nor mal INR <1.1; Warfarin Therap eutic range 2.0 to 3. 0 or 2.5 to 3.5, dep ending upon the indica tions. Lab Interpretation (test Normal code = 47826-4) [facility] WITH [id number] 10:12:46 Test Item Value Reference Range Interpretation Comments WBC (test code = See_Comment [Automated message] 6690-2) The system ic h generated this result transmitted ref erence range: 4.30 - 1 1.10 10*3/?L. The re ference range was not u sed to interpret this result as normal/abnor mal. RBC (test code = See_Comment [Automated message] 789-8) The system [employer] generated this result transmitted ref erence range: [...] RDW-SD (test code 42.5 fL 39-49.9 = 36633-0) RDW-CV (test code 12.9 % 12-15.5 = 788-0) PLT (test code = See_Comment [Automated message] 777-3) The system [employer] generated this result transmitted ref erence range: 166 - 35 8 10*3/?L. The re ference range was not u sed to interpret this result as normal/abnor mal. MPV (test code = 9.6 fL 9.5-12.9 86028-0) NRBC/100 WBC (test See_Comment [Automat ed message] code = 1014566903) The syste m which generated this result transmitted ref erence range: 0.0 - 10 .0 /100 WBCs. The refer ence range was not u sed to interpret this result as normal/abnor mal. NRBC x10^3 (test See_Comment [Automated message] code = 6525094075) The syste m which generated this result transmitted ref erence range: 10*3/?L. The reference range was not used to interpr et this result as normal/abnormal . GRAN MAT (NEUT) % 62.1 % (test code = 770-8) IMM GRAN % (test 0.30 % code = 9186056601) LYMPH % (test code 28.9 % = 736-9) MONO % (test code 5.8 % = 5905-5) EOS % (test code = 2.3 % 713-8) BASO % (test code 0.6 % = 706-2) GRAN MAT 4.27 10*3/uL 1.88-7.09 x10^3(ANC) (test code = 3709580570) IMM GRAN x10^3 0-0.06 (test code = 9721120754) LYMPH x10^3 (test 1.99 10*3/uL 1.32-3.29 code = 731-0) MONO x10^3 (test 0.40 10*3/uL 0.33-0.92 code = 742-7) EOS x10^3 (test 0.16 10*3/uL 0.03-0.39 code = 711-2) BASO x10^3 (test 0.04 10*3/uL 0.01-0.07 code = 704-7) [facility] P[facility]I (BREATH)2022-01-03 15:07:57 Test Item Value Reference Range Interpretation Comments H. PYLORI (BREATH) NEGATIVE NEGATIVE UNLESS O THERWISE (test code = 42331) INDICATE D, ALL TESTING PERFORMED [facility] [employer] [address] [place] [address] [employer] DIRECTOR: TANNER VELASQUEZ M.D. CLIA NUMBER [id number] CAP ACCREDITATION N O. [id number] ALTMAN (Sm) [id number] 05:38:15 Test Item Value Reference Range Interpretation Comments ALTMAN (Sm) ANTIBODY (test code = <0.2 AI <1.0 79209) SCL-70 [id number] 05:38:15 Test Item Value Reference Range Interpretation Comments SCL-70 ANTIBODY (test code = 4606) <0.2 AI <1.0 SJOGREN'S SS-A AND SS-B [id number] 05:38:15 Test Item Value Reference Range Interpretation Comments SJOGREN'S SS-A <0.2 AI <1.0 ANTIBODY (test code = 15561) SJOGREN'S SS-B <0.2 AI <1.0 UNLESS OTHER ROTH ANTIBODY (test code = INDICA ALEX, ALL TESTING 12321) PERFORMED [facility] PATH[facility] [employer] [address] [place] [id number] [place] [address] DIRECTOR: TANNER VELASQUEZ M.D. CLIA NUMBER [id number] CAP ACCREDITATION N O. [id number] SCL-70 [id number] 00:00:00 Test Item Value Reference Range Interpretation Comments SCL-70 ANTIBODY (test code = 4606) <0.2 AI SCL-70 [id number] 00:00:00 Test Item Value Reference Range Interpretation Comments SCL-70 ANTIBODY (test code = 4606) <0.2 AI SCL-70 [id number] 00:00:00 Test Item Value Reference Range Interpretation Comments SCL-70 ANTIBODY (test code = 4606) <0.2 AI [id number] 00:00:00 Test Item Value Reference Range Interpretation Comments SJOGREN'S SS-A ANTIBODY (test code = <0.2 AI 99283) SJOGREN'S SS-B ANTIBODY (test code = <0.2 AI 57110) [id number] 00:00:00 Test Item Value Reference Range Interpretation Comments SJOGREN'S SS-A ANTIBODY (test code = <0.2 AI 80506) SJOGREN'S SS-B ANTIBODY (test code = <0.2 AI 66521) H. PYLORI (BREATH)2022-01-03 00:00:00 Test Item Value Reference Range Interpretation Comments H. PYLORI (BREATH) (test code = NEGATIVE 06159) H. PYLORI (BREATH)2022-01-03 00:00:00 Test Item Value Reference Range Interpretation Comments H. PYLORI (BREATH) (test code = NEGATIVE 40469) ALTMAN (Sm) [id number] 00:00:00 Test Item Value Reference Range Interpretation Comments ALTMAN (Sm) ANTIBODY (test code = <0.2 AI 46936) ALTMAN (Sm) [id number] 00:00:00 Test Item Value Reference Range Interpretation Comments ALTMAN (Sm) ANTIBODY (test code = <0.2 AI 70219) SCL-70 [id number] 00:00:00 Test Item Value Reference Range Interpretation Comments SCL-70 ANTIBODY (test code = 4606) <0.2 AI SCL-70 [id number] 00:00:00 Test Item Value Reference Range Interpretation Comments SCL-70 ANTIBODY (test code = 4606) <0.2 AI SCL-70 [id number] 00:00:00 Test Item Value Reference Range Interpretation Comments SCL-70 ANTIBODY (test code = 4606) <0.2 AI [id number] 00:00:00 Test Item Value Reference Range Interpretation Comments SJOGREN'S SS-A ANTIBODY (test code = <0.2 AI 15751) SJOGREN'S SS-B ANTIBODY (test code = <0.2 AI 78426) [id number] 00:00:00 Test Item Value Reference Range Interpretation Comments SJOGREN'S SS-A ANTIBODY (test code = <0.2 AI 01284) SJOGREN'S SS-B ANTIBODY (test code = <0.2 AI 42417) H. PYLORI (BREATH)2022-01-03 00:00:00 Test Item Value Reference Range Interpretation Comments H. PYLORI (BREATH) (test code = NEGATIVE 59364) H. PYLORI (BREATH)2022-01-03 00:00:00 Test Item Value Reference Range Interpretation Comments H. PYLORI (BREATH) (test code = NEGATIVE 12529) ALTMAN (Sm) [id number] 00:00:00 Test Item Value Reference Range Interpretation Comments ALTMAN (Sm) ANTIBODY (test code = <0.2 AI 31683) ALTMAN (Sm) [id number] 00:00:00 Test Item Value Reference Range Interpretation Comments ALTMAN (Sm) ANTIBODY (test code = <0.2 AI 09817) SCL-70 [id number] 00:00:00 Test Item Value Reference Range Interpretation Comments SCL-70 ANTIBODY (test code = 4606) <0.2 AI SCL-70 [id number] 00:00:00 Test Item Value Reference Range Interpretation Comments SCL-70 ANTIBODY (test code = 4606) <0.2 AI SCL-70 [id number] 00:00:00 Test Item Value Reference Range Interpretation Comments SCL-70 ANTIBODY (test code = 4606) <0.2 AI [id number] 00:00:00 Test Item Value Reference Range Interpretation Comments SJOGREN'S SS-A ANTIBODY (test code = <0.2 AI 05462) SJOGREN'S SS-B ANTIBODY (test code = <0.2 AI 28711) [id number] 00:00:00 Test Item Value Reference Range Interpretation Comments SJOGREN'S SS-A ANTIBODY (test code = <0.2 AI 01442) SJOGREN'S SS-B ANTIBODY (test code = <0.2 AI 03429) ALTMAN (Sm) [id number] 00:00:00 Test Item Value Reference Range Interpretation Comments ALTMAN (Sm) ANTIBODY (test code = <0.2 AI 60056) ALTMAN (Sm) [id number] 00:00:00 Test Item Value Reference Range Interpretation Comments ALTMAN (Sm) ANTIBODY (test code = <0.2 AI 23605) H. PYLORI (BREATH)2022-01-03 00:00:00 Test Item Value Reference Range Interpretation Comments H. PYLORI (BREATH) (test code = NEGATIVE 06031) H. PYLORI (BREATH)2022-01-03 00:00:00 Test Item Value Reference Range Interpretation Comments H. PYLORI (BREATH) (test code = NEGATIVE 92543) SCL-70 [id number] 00:00:00 Test Item Value Reference Range Interpretation Comments SCL-70 ANTIBODY (test code = 4606) <0.2 AI SCL-70 [id number] 00:00:00 Test Item Value Reference Range Interpretation Comments SCL-70 ANTIBODY (test code = 4606) <0.2 AI SCL-70 [id number] 00:00:00 Test Item Value Reference Range Interpretation Comments SCL-70 ANTIBODY (test code = 4606) <0.2 AI [id number] 00:00:00 Test Item Value Reference Range Interpretation Comments SJOGREN'S SS-A ANTIBODY (test code = <0.2 AI 36159) SJOGREN'S SS-B ANTIBODY (test code = <0.2 AI 01681) [id number] 00:00:00 Test Item Value Reference Range Interpretation Comments SJOGREN'S SS-A ANTIBODY (test code = <0.2 AI 23280) SJOGREN'S SS-B ANTIBODY (test code = <0.2 AI 92164) H. PYLORI (BREATH)2022-01-03 00:00:00 Test Item Value Reference Range Interpretation Comments H. PYLORI (BREATH) (test code = NEGATIVE 01937) H. PYLORI (BREATH)2022-01-03 00:00:00 Test Item Value Reference Range Interpretation Comments H. PYLORI (BREATH) (test code = NEGATIVE 79275) ALTMAN (Sm) [id number] 00:00:00 Test Item Value Reference Range Interpretation Comments ALTMAN (Sm) ANTIBODY (test code = <0.2 AI 08029) ALTMAN (Sm) [id number] 00:00:00 Test Item Value Reference Range Interpretation Comments ALTMAN (Sm) ANTIBODY (test code = <0.2 AI 82331) SCL-70 [id number] 00:00:00 Test Item Value Reference Range Interpretation Comments SCL-70 ANTIBODY (test code = 4606) <0.2 AI SCL-70 [id number] 00:00:00 Test Item Value Reference Range Interpretation Comments SCL-70 ANTIBODY (test code = 4606) <0.2 AI SCL-70 [id number] 00:00:00 Test Item Value Reference Range Interpretation Comments SCL-70 ANTIBODY (test code = 4606) <0.2 AI [id number] 00:00:00 Test Item Value Reference Range Interpretation Comments SJOGREN'S SS-A ANTIBODY (test code = <0.2 AI 66692) SJOGREN'S SS-B ANTIBODY (test code = <0.2 AI 20441) [id number] 00:00:00 Test Item Value Reference Range Interpretation Comments SJOGREN'S SS-A ANTIBODY (test code = <0.2 AI 55927) SJOGREN'S SS-B ANTIBODY (test code = <0.2 AI 30913) ALTMAN (Sm) [id number] 00:00:00 Test Item Value Reference Range Interpretation Comments ALTMAN (Sm) ANTIBODY (test code = <0.2 AI 41476) ALTMAN (Sm) [id number] 00:00:00 Test Item Value Reference Range Interpretation Comments ALTMAN (Sm) ANTIBODY (test code = <0.2 AI 34300) H. PYLORI (BREATH)2022-01-03 00:00:00 Test Item Value Reference Range Interpretation Comments H. PYLORI (BREATH) (test code = NEGATIVE 74123) H. PYLORI (BREATH)2022-01-03 00:00:00 Test Item Value Reference Range Interpretation Comments H. PYLORI (BREATH) (test code = NEGATIVE 79780) SCL-70 [id number] 00:00:00 Test Item Value Reference Range Interpretation Comments SCL-70 ANTIBODY (test code = 4606) <0.2 AI SCL-70 [id number] 00:00:00 Test Item Value Reference Range Interpretation Comments SCL-70 ANTIBODY (test code = 4606) <0.2 AI SCL-70 [id number] 00:00:00 Test Item Value Reference Range Interpretation Comments SCL-70 ANTIBODY (test code = 4606) <0.2 AI [id number] 00:00:00 Test Item Value Reference Range Interpretation Comments SJOGREN'S SS-A ANTIBODY (test code = <0.2 AI 89224) SJOGREN'S SS-B ANTIBODY (test code = <0.2 AI 63914) [id number] 00:00:00 Test Item Value Reference Range Interpretation Comments SJOGREN'S SS-A ANTIBODY (test code = <0.2 AI 04029) SJOGREN'S SS-B ANTIBODY (test code = <0.2 AI 87327) H. PYLORI (BREATH)2022-01-03 00:00:00 Test Item Value Reference Range Interpretation Comments H. PYLORI (BREATH) (test code = NEGATIVE 00629) H. PYLORI (BREATH)2022-01-03 00:00:00 Test Item Value Reference Range Interpretation Comments H. PYLORI (BREATH) (test code = NEGATIVE 18595) ALTMAN (Sm) [id number] 00:00:00 Test Item Value Reference Range Interpretation Comments ALTMAN (Sm) ANTIBODY (test code = <0.2 AI 15685) ALTMAN (Sm) [id number] 00:00:00 Test Item Value Reference Range Interpretation Comments ALTMAN (Sm) ANTIBODY (test code = <0.2 AI 34416) SCL-70 [id number] 00:00:00 Test Item Value Reference Range Interpretation Comments SCL-70 ANTIBODY (test code = 4606) <0.2 AI SCL-70 [id number] 00:00:00 Test Item Value Reference Range Interpretation Comments SCL-70 ANTIBODY (test code = 4606) <0.2 AI SCL-70 [id number] 00:00:00 Test Item Value Reference Range Interpretation Comments SCL-70 ANTIBODY (test code = 4606) <0.2 AI [id number] 00:00:00 Test Item Value Reference Range Interpretation Comments SJOGREN'S SS-A ANTIBODY (test code = <0.2 AI 71643) SJOGREN'S SS-B ANTIBODY (test code = <0.2 AI 10075) [id number] 00:00:00 Test Item Value Reference Range Interpretation Comments SJOGREN'S SS-A ANTIBODY (test code = <0.2 AI 80062) SJOGREN'S SS-B ANTIBODY (test code = <0.2 AI 28484) H. PYLORI (BREATH)2022-01-03 00:00:00 Test Item Value Reference Range Interpretation Comments H. PYLORI (BREATH) (test code = NEGATIVE 86958) H. PYLORI (BREATH)2022-01-03 00:00:00 Test Item Value Reference Range Interpretation Comments H. PYLORI (BREATH) (test code = NEGATIVE 11738) ALTMAN (Sm) [id number] 00:00:00 Test Item Value Reference Range Interpretation Comments ALTMAN (Sm) ANTIBODY (test code = <0.2 AI 33282) ALTMAN (Sm) [id number] 00:00:00 Test Item Value Reference Range Interpretation Comments ALTMAN (Sm) ANTIBODY (test code = <0.2 AI 06726) SCL-70 [id number] 00:00:00 Test Item Value Reference Range Interpretation Comments SCL-70 ANTIBODY (test code = 4606) <0.2 AI SCL-70 [id number] 00:00:00 Test Item Value Reference Range Interpretation Comments SCL-70 ANTIBODY (test code = 4606) <0.2 AI SCL-70 [id number] 00:00:00 Test Item Value Reference Range Interpretation Comments SCL-70 ANTIBODY (test code = 4606) <0.2 AI [id number] 00:00:00 Test Item Value Reference Range Interpretation Comments SJOGREN'S SS-A ANTIBODY (test code = <0.2 AI 85732) SJOGREN'S SS-B ANTIBODY (test code = <0.2 AI 68300) [id number] 00:00:00 Test Item Value Reference Range Interpretation Comments SJOGREN'S SS-A ANTIBODY (test code = <0.2 AI 70349) SJOGREN'S SS-B ANTIBODY (test code = <0.2 AI 36502) H. PYLORI (BREATH)2022-01-03 00:00:00 Test Item Value Reference Range Interpretation Comments H. PYLORI (BREATH) (test code = NEGATIVE 48795) H. PYLORI (BREATH)2022-01-03 00:00:00 Test Item Value Reference Range Interpretation Comments H. PYLORI (BREATH) (test code = NEGATIVE 58099) ALTMAN (Sm) [id number] 00:00:00 Test Item Value Reference Range Interpretation Comments ALTMAN (Sm) ANTIBODY (test code = <0.2 AI 26114) ALTMAN (Sm) [id number] 00:00:00 Test Item Value Reference Range Interpretation Comments ALTMAN (Sm) ANTIBODY (test code = <0.2 AI 14514) SCL-70 [id number] 00:00:00 Test Item Value Reference Range Interpretation Comments SCL-70 ANTIBODY (test code = 4606) <0.2 AI SCL-70 [id number] 00:00:00 Test Item Value Reference Range Interpretation Comments SCL-70 ANTIBODY (test code = 4606) <0.2 AI SCL-70 [id number] 00:00:00 Test Item Value Reference Range Interpretation Comments SCL-70 ANTIBODY (test code = 4606) <0.2 AI [id number] 00:00:00 Test Item Value Reference Range Interpretation Comments SJOGREN'S SS-A ANTIBODY (test code = <0.2 AI 78926) SJOGREN'S SS-B ANTIBODY (test code = <0.2 AI 33123) [id number] 00:00:00 Test Item Value Reference Range Interpretation Comments SJOGREN'S SS-A ANTIBODY (test code = <0.2 AI 72234) SJOGREN'S SS-B ANTIBODY (test code = <0.2 AI 31858) ALTMAN (Sm) [id number] 00:00:00 Test Item Value Reference Range Interpretation Comments ALTMAN (Sm) ANTIBODY (test code = <0.2 AI 43948) ALTMAN (Sm) [id number] 00:00:00 Test Item Value Reference Range Interpretation Comments ALTMAN (Sm) ANTIBODY (test code = <0.2 AI 12147) H. PYLORI (BREATH)2022-01-03 00:00:00 Test Item Value Reference Range Interpretation Comments H. PYLORI (BREATH) (test code = NEGATIVE 98964) H. PYLORI (BREATH)2022-01-03 00:00:00 Test Item Value Reference Range Interpretation Comments H. PYLORI (BREATH) (test code = NEGATIVE 39035) KATHRYN (ANTI-NUCLEAR AB) WITH REFLEX [id number] 04:07:31 Test Item Value Reference Range Interpretation Comments ANTI-NUCLEAR POSITIVE NEGATIVE A ANTIBODIES (test code = 3506) KATHRYN PATTERN SEE BELOW (REPORTED TITER) (test code = 35240) HOMOGENEOUS (test NEGATIVE TITER NEGATIVE code = 33785) SPECKLED (test 1:160 TITER NEGATIVE H code = 826185) DENSE FINE NEGATIVE TITER NEGATIVE SPECKLED (test code = 91628) CENTROMERE (test NEGATIVE TITER NEGATIVE code = 044576) COARSE SPECKLED NEGATIVE TITER NEGATIVE (test code = 948123) DISCRETE NUCLEAR NEGATIVE TITER NEGATIVE DOTS (test code = 776061) NUCLEOLAR (test NEGATIVE TITER NEGATIVE code = 222684) NUCLEAR MEMBRANE NEGATIVE TITER NEGATIVE (test code = 142656) CYTO. RETICULAR NEGATIVE NEGATIVE (ANEESH) (test code = 629151) COMMENTS (test NONE code = 648998) METHOD (test code (NOTE) NOTE: EFF ECTIVE = 88537) 11/06/2021, MET HOD IS TRANSITIONED TO THE INOV[facility]AGNOSTIC [facility]. THE METHOD INCLUDES A SCREENTHRESHOLD OF 1:80, DIGITIZED AND COMPUTER ALGORITHM-NOLBERTO ALEXINTE RPRETATION OF T ITERS AND DIGITAL PAT TERNS, AND HEp-2 CELLL INE SUBSTRATE. GUS TIONAL UNUSUAL PATTERN S WILL BE GIVEN ASCOMM ENTS. FOR MORE INFORM ATION, SEE [email or web address] KATHRYN (ANTI-NUCLEAR AB) WITH REFLEX [id number] 00:00:00 Test Item Value Reference Range Interpretation Comments ANTI-NUCLEAR ANTIBODIES (test POSITIVE code = 3506) KATHRYN PATTERN (REPORTED SEE BELOW TITER) (test code = 93235) HOMOGENEOUS (test code = NEGATIVE TITER 87237) SPECKLED (test code = 493656) 1:160 TITER DENSE FINE SPECKLED (test code NEGATIVE TITER = 79230) CENTROMERE (test code = NEGATIVE TITER 908083) COARSE SPECKLED (test code = NEGATIVE TITER 079175) DISCRETE NUCLEAR DOTS (test NEGATIVE TITER code = 325598) NUCLEOLAR (test code = 717871) NEGATIVE TITER NUCLEAR MEMBRANE (test code = NEGATIVE TITER 622273) CYTO. RETICULAR (ANEESH) (test NEGATIVE code = 572607) COMMENTS (test code = 272243) NONE METHOD (test code = 52882) (NOTE) KATHRYN (ANTI-NUCLEAR AB) WITH REFLEX [id number] 00:00:00 Test Item Value Reference Range Interpretation Comments ANTI-NUCLEAR ANTIBODIES (test POSITIVE code = 3506) KATHRYN PATTERN (REPORTED SEE BELOW TITER) (test code = 82086) HOMOGENEOUS (test code = NEGATIVE TITER 47115) SPECKLED (test code = 476831) 1:160 TITER DENSE FINE SPECKLED (test code NEGATIVE TITER = 69883) CENTROMERE (test code = NEGATIVE TITER 370900) COARSE SPECKLED (test code = NEGATIVE TITER 497756) DISCRETE NUCLEAR DOTS (test NEGATIVE TITER code = 169293) NUCLEOLAR (test code = 768949) NEGATIVE TITER NUCLEAR MEMBRANE (test code = NEGATIVE TITER 738504) CYTO. RETICULAR (ANEESH) (test NEGATIVE code = 542759) COMMENTS (test code = 746676) NONE METHOD (test code = 04216) (NOTE) KATHRYN (ANTI-NUCLEAR AB) WITH REFLEX [id number] 00:00:00 Test Item Value Reference Range Interpretation Comments ANTI-NUCLEAR ANTIBODIES (test POSITIVE code = 3506) KATHRYN PATTERN (REPORTED SEE BELOW TITER) (test code = 99575) HOMOGENEOUS (test code = NEGATIVE TITER 54256) SPECKLED (test code = 943991) 1:160 TITER DENSE FINE SPECKLED (test code NEGATIVE TITER = 62165) CENTROMERE (test code = NEGATIVE TITER 846620) COARSE SPECKLED (test code = NEGATIVE TITER 579020) DISCRETE NUCLEAR DOTS (test NEGATIVE TITER code = 308899) NUCLEOLAR (test code = 023671) NEGATIVE TITER NUCLEAR MEMBRANE (test code = NEGATIVE TITER 479628) CYTO. RETICULAR (ANEESH) (test NEGATIVE code = 850444) COMMENTS (test code = 424449) NONE METHOD (test code = 63647) (NOTE) KATHRYN (ANTI-NUCLEAR AB) WITH REFLEX [id number] 00:00:00 Test Item Value Reference Range Interpretation Comments ANTI-NUCLEAR ANTIBODIES (test POSITIVE code = 3506) KATHRYN PATTERN (REPORTED SEE BELOW TITER) (test code = 70399) HOMOGENEOUS (test code = NEGATIVE TITER 74443) SPECKLED (test code = 230695) 1:160 TITER DENSE FINE SPECKLED (test code NEGATIVE TITER = 18852) CENTROMERE (test code = NEGATIVE TITER 820971) COARSE SPECKLED (test code = NEGATIVE TITER 413533) DISCRETE NUCLEAR DOTS (test NEGATIVE TITER code = 185074) NUCLEOLAR (test code = 671198) NEGATIVE TITER NUCLEAR MEMBRANE (test code = NEGATIVE TITER 824818) CYTO. RETICULAR (ANEESH) (test NEGATIVE code = 299611) COMMENTS (test code = 904801) NONE METHOD (test code = 53642) (NOTE) KATHRYN (ANTI-NUCLEAR AB) WITH REFLEX [id number] 00:00:00 Test Item Value Reference Range Interpretation Comments ANTI-NUCLEAR ANTIBODIES (test POSITIVE code = 3506) KATHRYN PATTERN (REPORTED SEE BELOW TITER) (test code = 84244) HOMOGENEOUS (test code = NEGATIVE TITER 89138) SPECKLED (test code = 309555) 1:160 TITER DENSE FINE SPECKLED (test code NEGATIVE TITER = 66621) CENTROMERE (test code = NEGATIVE TITER 765562) COARSE SPECKLED (test code = NEGATIVE TITER 847304) DISCRETE NUCLEAR DOTS (test NEGATIVE TITER code = 749063) NUCLEOLAR (test code = 149392) NEGATIVE TITER NUCLEAR MEMBRANE (test code = NEGATIVE TITER 670143) CYTO. RETICULAR (ANEESH) (test NEGATIVE code = 508423) COMMENTS (test code = 135224) NONE METHOD (test code = 55718) (NOTE) KATHRYN (ANTI-NUCLEAR AB) WITH REFLEX [id number] 00:00:00 Test Item Value Reference Range Interpretation Comments ANTI-NUCLEAR ANTIBODIES (test POSITIVE code = 3506) KATHRYN PATTERN (REPORTED SEE BELOW TITER) (test code = 65558) HOMOGENEOUS (test code = NEGATIVE TITER 03335) SPECKLED (test code = 015051) 1:160 TITER DENSE FINE SPECKLED (test code NEGATIVE TITER = 07873) CENTROMERE (test code = NEGATIVE TITER 870305) COARSE SPECKLED (test code = NEGATIVE TITER 231166) DISCRETE NUCLEAR DOTS (test NEGATIVE TITER code = 399426) NUCLEOLAR (test code = 312160) NEGATIVE TITER NUCLEAR MEMBRANE (test code = NEGATIVE TITER 046914) CYTO. RETICULAR (ANEESH) (test NEGATIVE code = 933433) COMMENTS (test code = 893728) NONE METHOD (test code = 07360) (NOTE) KATHRYN (ANTI-NUCLEAR AB) WITH REFLEX [id number] 00:00:00 Test Item Value Reference Range Interpretation Comments ANTI-NUCLEAR ANTIBODIES (test POSITIVE code = 3506) KATHRYN PATTERN (REPORTED SEE BELOW TITER) (test code = 75146) HOMOGENEOUS (test code = NEGATIVE TITER 65431) SPECKLED (test code = 728626) 1:160 TITER DENSE FINE SPECKLED (test code NEGATIVE TITER = 83703) CENTROMERE (test code = NEGATIVE TITER 726187) COARSE SPECKLED (test code = NEGATIVE TITER 017299) DISCRETE NUCLEAR DOTS (test NEGATIVE TITER code = 439836) NUCLEOLAR (test code = 117004) NEGATIVE TITER NUCLEAR MEMBRANE (test code = NEGATIVE TITER 310557) CYTO. RETICULAR (ANEESH) (test NEGATIVE code = 121538) COMMENTS (test code = 203868) NONE METHOD (test code = 04010) (NOTE) KATHRYN (ANTI-NUCLEAR AB) WITH REFLEX [id number] 00:00:00 Test Item Value Reference Range Interpretation Comments ANTI-NUCLEAR ANTIBODIES (test POSITIVE code = 3506) KATHRYN PATTERN (REPORTED SEE BELOW TITER) (test code = 02023) HOMOGENEOUS (test code = NEGATIVE TITER 78453) SPECKLED (test code = 727613) 1:160 TITER DENSE FINE SPECKLED (test code NEGATIVE TITER = 66746) CENTROMERE (test code = NEGATIVE TITER 585090) COARSE SPECKLED (test code = NEGATIVE TITER 717652) DISCRETE NUCLEAR DOTS (test NEGATIVE TITER code = 260316) NUCLEOLAR (test code = 863525) NEGATIVE TITER NUCLEAR MEMBRANE (test code = NEGATIVE TITER 671818) CYTO. RETICULAR (ANEESH) (test NEGATIVE code = 652839) COMMENTS (test code = 656044) NONE METHOD (test code = 43894) (NOTE) KATHRYN (ANTI-NUCLEAR AB) WITH REFLEX [id number] 00:00:00 Test Item Value Reference Range Interpretation Comments ANTI-NUCLEAR ANTIBODIES (test POSITIVE code = 3506) KATHRYN PATTERN (REPORTED SEE BELOW TITER) (test code = 41746) HOMOGENEOUS (test code = NEGATIVE TITER 36834) SPECKLED (test code = 340003) 1:160 TITER DENSE FINE SPECKLED (test code NEGATIVE TITER = 44399) CENTROMERE (test code = NEGATIVE TITER 795512) COARSE SPECKLED (test code = NEGATIVE TITER 469858) DISCRETE NUCLEAR DOTS (test NEGATIVE TITER code = 031893) NUCLEOLAR (test code = 256158) NEGATIVE TITER NUCLEAR MEMBRANE (test code = NEGATIVE TITER 858175) CYTO. RETICULAR (ANEESH) (test NEGATIVE code = 853125) COMMENTS (test code = 816210) NONE METHOD (test code = 50085) (NOTE) KATHRYN (ANTI-NUCLEAR AB) WITH REFLEX [id number] 00:00:00 Test Item Value Reference Range Interpretation Comments ANTI-NUCLEAR ANTIBODIES (test POSITIVE code = 3506) KATHRYN PATTERN (REPORTED SEE BELOW TITER) (test code = 84473) HOMOGENEOUS (test code = NEGATIVE TITER 21743) SPECKLED (test code = 611809) 1:160 TITER DENSE FINE SPECKLED (test code NEGATIVE TITER = 87889) CENTROMERE (test code = NEGATIVE TITER 005477) COARSE SPECKLED (test code = NEGATIVE TITER 616168) DISCRETE NUCLEAR DOTS (test NEGATIVE TITER code = 812354) NUCLEOLAR (test code = 249773) NEGATIVE TITER NUCLEAR MEMBRANE (test code = NEGATIVE TITER 217513) CYTO. RETICULAR (ANEESH) (test NEGATIVE code = 308930) COMMENTS (test code = 457207) NONE METHOD (test code = 99196) (NOTE) KATHRYN (ANTI-NUCLEAR AB) WITH REFLEX [id number] 00:00:00 Test Item Value Reference Range Interpretation Comments ANTI-NUCLEAR ANTIBODIES (test POSITIVE code = 3506) KATHRYN PATTERN (REPORTED SEE BELOW TITER) (test code = 52832) HOMOGENEOUS (test code = NEGATIVE TITER 83137) SPECKLED (test code = 146718) 1:160 TITER DENSE FINE SPECKLED (test code NEGATIVE TITER = 00062) CENTROMERE (test code = NEGATIVE TITER 789913) COARSE SPECKLED (test code = NEGATIVE TITER 950429) DISCRETE NUCLEAR DOTS (test NEGATIVE TITER code = 680267) NUCLEOLAR (test code = 078059) NEGATIVE TITER NUCLEAR MEMBRANE (test code = NEGATIVE TITER 455920) CYTO. RETICULAR (ANEESH) (test NEGATIVE code = 961673) COMMENTS (test code = 286829) NONE METHOD (test code = 49543) (NOTE) KATHRYN (ANTI-NUCLEAR AB) WITH REFLEX [id number] 00:00:00 Test Item Value Reference Range Interpretation Comments ANTI-NUCLEAR ANTIBODIES (test POSITIVE code = 3506) KATHRYN PATTERN (REPORTED SEE BELOW TITER) (test code = 74878) HOMOGENEOUS (test code = NEGATIVE TITER 71314) SPECKLED (test code = 082538) 1:160 TITER DENSE FINE SPECKLED (test code NEGATIVE TITER = 84308) CENTROMERE (test code = NEGATIVE TITER 457696) COARSE SPECKLED (test code = NEGATIVE TITER 013269) DISCRETE NUCLEAR DOTS (test NEGATIVE TITER code = 701813) NUCLEOLAR (test code = 434399) NEGATIVE TITER NUCLEAR MEMBRANE (test code = NEGATIVE TITER 726943) CYTO. RETICULAR (ANEESH) (test NEGATIVE code = 758323) COMMENTS (test code = 329224) NONE METHOD (test code = 01862) (NOTE) KATHRYN (ANTI-NUCLEAR AB) WITH REFLEX [id number] 00:00:00 Test Item Value Reference Range Interpretation Comments ANTI-NUCLEAR ANTIBODIES (test POSITIVE code = 3506) KATHRYN PATTERN (REPORTED SEE BELOW TITER) (test code = 75541) HOMOGENEOUS (test code = NEGATIVE TITER 74876) SPECKLED (test code = 440769) 1:160 TITER DENSE FINE SPECKLED (test code NEGATIVE TITER = 75506) CENTROMERE (test code = NEGATIVE TITER 176795) COARSE SPECKLED (test code = NEGATIVE TITER 398711) DISCRETE NUCLEAR DOTS (test NEGATIVE TITER code = 595388) NUCLEOLAR (test code = 900779) NEGATIVE TITER NUCLEAR MEMBRANE (test code = NEGATIVE TITER 348201) CYTO. RETICULAR (ANEESH) (test NEGATIVE code = 455048) COMMENTS (test code = 384456) NONE METHOD (test code = 87201) (NOTE) KATHRYN (ANTI-NUCLEAR AB) WITH REFLEX [id number] 00:00:00 Test Item Value Reference Range Interpretation Comments ANTI-NUCLEAR ANTIBODIES (test POSITIVE code = 3506) KATHRYN PATTERN (REPORTED SEE BELOW TITER) (test code = 42994) HOMOGENEOUS (test code = NEGATIVE TITER 46837) SPECKLED (test code = 794365) 1:160 TITER DENSE FINE SPECKLED (test code NEGATIVE TITER = 12817) CENTROMERE (test code = NEGATIVE TITER 868298) COARSE SPECKLED (test code = NEGATIVE TITER 357985) DISCRETE NUCLEAR DOTS (test NEGATIVE TITER code = 126569) NUCLEOLAR (test code = 553865) NEGATIVE TITER NUCLEAR MEMBRANE (test code = NEGATIVE TITER 725981) CYTO. RETICULAR (ANEESH) (test NEGATIVE code = 711590) COMMENTS (test code = 599895) NONE METHOD (test code = 08492) (NOTE) KATHRYN (ANTI-NUCLEAR AB) WITH REFLEX [id number] 00:00:00 Test Item Value Reference Range Interpretation Comments ANTI-NUCLEAR ANTIBODIES (test POSITIVE code = 3506) KATHRYN PATTERN (REPORTED SEE BELOW TITER) (test code = 10865) HOMOGENEOUS (test code = NEGATIVE TITER 68966) SPECKLED (test code = 101767) 1:160 TITER DENSE FINE SPECKLED (test code NEGATIVE TITER = 25132) CENTROMERE (test code = NEGATIVE TITER 668229) COARSE SPECKLED (test code = NEGATIVE TITER 324134) DISCRETE NUCLEAR DOTS (test NEGATIVE TITER code = 538702) NUCLEOLAR (test code = 325375) NEGATIVE TITER NUCLEAR MEMBRANE (test code = NEGATIVE TITER 681760) CYTO. RETICULAR (ANEESH) (test NEGATIVE code = 895696) COMMENTS (test code = 780035) NONE METHOD (test code = 49013) (NOTE) KATHRYN (ANTI-NUCLEAR AB) WITH REFLEX [id number] 00:00:00 Test Item Value Reference Range Interpretation Comments ANTI-NUCLEAR ANTIBODIES (test POSITIVE code = 3506) KATHRYN PATTERN (REPORTED SEE BELOW TITER) (test code = 60016) HOMOGENEOUS (test code = NEGATIVE TITER 99407) SPECKLED (test code = 992700) 1:160 TITER DENSE FINE SPECKLED (test code NEGATIVE TITER = 48806) CENTROMERE (test code = NEGATIVE TITER 074524) COARSE SPECKLED (test code = NEGATIVE TITER 320130) DISCRETE NUCLEAR DOTS (test NEGATIVE TITER code = 001348) NUCLEOLAR (test code = 279354) NEGATIVE TITER NUCLEAR MEMBRANE (test code = NEGATIVE TITER 428584) CYTO. RETICULAR (ANEESH) (test NEGATIVE code = 269144) COMMENTS (test code = 332897) NONE METHOD (test code = 57411) (NOTE) KATHRYN (ANTI-NUCLEAR AB) WITH REFLEX [id number] 00:00:00 Test Item Value Reference Range Interpretation Comments ANTI-NUCLEAR ANTIBODIES (test POSITIVE code = 3506) KATHRYN PATTERN (REPORTED SEE BELOW TITER) (test code = 01087) HOMOGENEOUS (test code = NEGATIVE TITER 81679) SPECKLED (test code = 141391) 1:160 TITER DENSE FINE SPECKLED (test code NEGATIVE TITER = 26130) CENTROMERE (test code = NEGATIVE TITER 773432) COARSE SPECKLED (test code = NEGATIVE TITER 323134) DISCRETE NUCLEAR DOTS (test NEGATIVE TITER code = 694560) NUCLEOLAR (test code = 140586) NEGATIVE TITER NUCLEAR MEMBRANE (test code = NEGATIVE TITER 622252) CYTO. RETICULAR (ANEESH) (test NEGATIVE code = 922342) COMMENTS (test code = 096731) NONE METHOD (test code = 92416) (NOTE) KATHRYN (ANTI-NUCLEAR AB) WITH REFLEX [id number] 00:00:00 Test Item Value Reference Range Interpretation Comments ANTI-NUCLEAR ANTIBODIES (test POSITIVE code = 3506) KATHRYN PATTERN (REPORTED SEE BELOW TITER) (test code = 44224) HOMOGENEOUS (test code = NEGATIVE TITER 69085) SPECKLED (test code = 777420) 1:160 TITER DENSE FINE SPECKLED (test code NEGATIVE TITER = 77512) CENTROMERE (test code = NEGATIVE TITER 922992) COARSE SPECKLED (test code = NEGATIVE TITER 710690) DISCRETE NUCLEAR DOTS (test NEGATIVE TITER code = 224521) NUCLEOLAR (test code = 412576) NEGATIVE TITER NUCLEAR MEMBRANE (test code = NEGATIVE TITER 405823) CYTO. RETICULAR (ANEESH) (test NEGATIVE code = 679825) COMMENTS (test code = 629280) NONE METHOD (test code = 66647) (NOTE) KATHRYN (ANTI-NUCLEAR AB) WITH REFLEX [id number] 00:00:00 Test Item Value Reference Range Interpretation Comments ANTI-NUCLEAR ANTIBODIES (test POSITIVE code = 3506) KATHRYN PATTERN (REPORTED SEE BELOW TITER) (test code = 28915) HOMOGENEOUS (test code = NEGATIVE TITER 03163) SPECKLED (test code = 713106) 1:160 TITER DENSE FINE SPECKLED (test code NEGATIVE TITER = 26454) CENTROMERE (test code = NEGATIVE TITER 998255) COARSE SPECKLED (test code = NEGATIVE TITER 256473) DISCRETE NUCLEAR DOTS (test NEGATIVE TITER code = 937864) NUCLEOLAR (test code = 386169) NEGATIVE TITER NUCLEAR MEMBRANE (test code = NEGATIVE TITER 137577) CYTO. RETICULAR (ANEESH) (test NEGATIVE code = 314521) COMMENTS (test code = 213966) NONE METHOD (test code = 24844) (NOTE) KATHRYN (ANTI-NUCLEAR AB) WITH REFLEX [id number] 00:00:00 Test Item Value Reference Range Interpretation Comments ANTI-NUCLEAR ANTIBODIES (test POSITIVE code = 3506) KATHRYN PATTERN (REPORTED SEE BELOW TITER) (test code = 92022) HOMOGENEOUS (test code = NEGATIVE TITER 21251) SPECKLED (test code = 928820) 1:160 TITER DENSE FINE SPECKLED (test code NEGATIVE TITER = 17325) CENTROMERE (test code = NEGATIVE TITER 386369) COARSE SPECKLED (test code = NEGATIVE TITER 978896) DISCRETE NUCLEAR DOTS (test NEGATIVE TITER code = 737757) NUCLEOLAR (test code = 482816) NEGATIVE TITER NUCLEAR MEMBRANE (test code = NEGATIVE TITER 502706) CYTO. RETICULAR (ANEESH) (test NEGATIVE code = 573024) COMMENTS (test code = 013701) NONE METHOD (test code = 85746) (NOTE) SEDIMENTATION [id number] 10:45:17 Test Item Value Reference Range Interpretation Comments SEDIMENTATION RATE (test code = 2 MM/HOUR 0-20 1017) HEMOGLOBIN [id number] 10:22:30 Test Item Value Reference Range Interpretation Comments HEMOGLOBIN A1c (test code = 38327) 5.4 % 4.2-5.6 TSH, THIRD [id number] 06:03:43 Test Item Value Reference Range Interpretation Comments TSH, THIRD GENERATION (test code 1.220 UIU/ML 0.400-4.100 = 2821) RHEUMATOID FACTOR, [id number] 05:16:40 Test Item Value Reference Range Interpretation Comments RHEUMATOID FACTOR, QUANT (test code <10 IU/ML <14 = 3502) LIPID [id number] 05:16:07 Test Item Value Reference Range Interpretation [...] MOREINFORMATION , SEE CLIENT ANNOUNCE MENT AT [email or web address] RISK RATIO LDL/HDL 2.58 RATIO <3.22 UNLESS O THERWISE (test code = 2238) INDICATED , ALL TESTING PERFORMED [facility], [facility]. [address] [place] [id number] [place] [address] DIRECTOR: TANNER VELASQUEZ M.D. CLIA NUMBER [id number] CAP ACCREDITATION N O. [id number] URIC [id number] 05:16:07 Test Item Value Reference Range Interpretation Comments URIC ACID (test code = 2233) 7.4 MG/DL 2.7-6.1 H COMPREHENSIVE METABOLIC [id number] 05:16:07 Test Item Value Reference Range Interpretation Comments GLUCOSE (test code = 88 MG/DL 70-99 2216) BUN (test code = 14 MG/DL 6-20 2207) CREATININE (test 0.71 MG/DL 0.60-1.30 code = 2214) eGFR (2020 CKD-EPI) 101 >60 (test code = 94394) ML/MIN/1.73 CALC BUN/CREAT (test 20 RATIO -28 code = 2235) SODIUM (test code = 140 MEQ/L 575-197 4760) POTASSIUM (test code 4.4 MEQ/L 3.5-5.4 = 2227) CHLORIDE (test code 106 MEQ/L 95-107 = 221) CARBON DIOXIDE (test 19 MEQ/L 19-31 code = 2206) CALCIUM (test code = 11.2 MG/DL 8.5-10.5 H 2208) PROTEIN, TOTAL (test 6.9 G/DL 6.1-8.3 code = 2229) ALBUMIN (test code = 4.3 G/DL 3.5-5.2 2200) CALC GLOBULIN (test 2.6 G/DL 1.9-3.7 code = 2240) CALC A/G RATIO (test 1.7 RATIO 1.0-2.6 code = 2234) BILIRUBIN, TOTAL 0.6 MG/DL See_Comment [Automated message] (test code = 2207) The syste m which generated this result transmit alex reference range : <=1.2. The refe rence range was not u sed to interpret th is result as normal/abnormal . ALKALINE PHOSPHATASE 102 U/L 40-133 (test code = 4) AST (test code = 21 U/L 940 2217) ALT (test code = 33 U/L 540 2218) CCP [id number] 04:51:18 Test Item Value Reference Range Interpretation Comments CCP IgG (test <0.5 U/ML <3.0 INTERPRET ALEK code = 41408) INFORMATION * INTERPRETATION RESULT NEGATIVE <3.0 U /ML POSITIVE >=3.0 U/ML TSH, THIRD [id number] 00:00:00 Test Item Value Reference Range Interpretation Comments TSH, THIRD GENERATION (test code 1.220 UIU/ML = 2821) TSH, THIRD [id number] 00:00:00 Test Item Value Reference Range Interpretation Comments TSH, THIRD GENERATION (test code 1.220 UIU/ML = 2821) TSH, THIRD [id number] 00:00:00 Test Item Value Reference Range Interpretation Comments TSH, THIRD GENERATION (test code 1.220 UIU/ML = 2821) CCP [id number] 00:00:00 Test Item Value Reference Range Interpretation Comments CCP IgG (test code = 66639) <0.5 U/ML CCP [id number] 00:00:00 Test Item Value Reference Range Interpretation Comments CCP IgG (test code = 55289) <0.5 U/ML CCP [id number] 00:00:00 Test Item Value Reference Range Interpretation Comments CCP IgG (test code = 64996) <0.5 U/ML RHEUMATOID FACTOR, [id number] 00:00:00 Test Item Value Reference Range Interpretation Comments RHEUMATOID FACTOR, QUANT (test code <10 IU/ML = 3502) RHEUMATOID FACTOR, [id number] 00:00:00 Test Item Value Reference Range Interpretation Comments RHEUMATOID FACTOR, QUANT (test code <10 IU/ML = 3502) RHEUMATOID FACTOR, [id number] 00:00:00 Test Item Value Reference Range Interpretation Comments RHEUMATOID FACTOR, QUANT (test code <10 IU/ML = 3502) URIC [id number] 00:00:00 Test Item Value Reference Range Interpretation Comments URIC ACID (test code = 2233) 7.4 MG/DL URIC [id number] 00:00:00 Test Item Value Reference Range Interpretation Comments URIC ACID (test code = 2233) 7.4 MG/DL HEMOGLOBIN [id number] 00:00:00 Test Item Value Reference Range Interpretation Comments HEMOGLOBIN A1c (test code = 23598) 5.4 % HEMOGLOBIN [id number] 00:00:00 Test Item Value Reference Range Interpretation Comments HEMOGLOBIN A1c (test code = 06229) 5.4 % HEMOGLOBIN [id number] 00:00:00 Test Item Value Reference Range Interpretation Comments HEMOGLOBIN A1c (test code = 07923) 5.4 % COMPREHENSIVE METABOLIC [id number] 00:00:00 Test Item Value Reference Range Interpretation Comments GLUCOSE (test code = 2217) 88 MG/DL BUN (test code = 2208) 14 MG/DL CREATININE (test code = 2214) 0.71 MG/DL eGFR (2020 CKD-EPI) (test 101 ML/MIN/1.73 code = 44526) CALC BUN/CREAT (test code = 20 RATIO [...] code = 2219) 33 U/L COMPREHENSIVE METABOLIC [id number] 00:00:00 Test Item Value Reference Range Interpretation Comments GLUCOSE (test code = 2217) 88 MG/DL BUN (test code = 2208) 14 MG/DL CREATININE (test code = 2214) 0.71 MG/DL eGFR (2020 CKD-EPI) (test 101 ML/MIN/1.73 code = 62450) CALC BUN/CREAT (test code = 20 RATIO [...] (test code = 2219) 33 U/L LIPID [id number] 00:00:00 Test Item Value Reference Range Interpretation Comments CHOLESTEROL (test code = 2210) 135 MG/DL TRIGLYCERIDES (test code = 2232) 147 MG/DL HDL CHOLESTEROL (test code = 2220) 31 MG/DL CALC LDL CHOL (test code = 2237) 80 MG/DL RISK RATIO LDL/HDL (test code = 2.58 RATIO 2238) LIPID [id number] 00:00:00 Test Item Value Reference Range Interpretation Comments CHOLESTEROL (test code = 2210) 135 MG/DL TRIGLYCERIDES (test code = 2232) 147 MG/DL HDL CHOLESTEROL (test code = 2220) 31 MG/DL CALC LDL CHOL (test code = 2237) 80 MG/DL RISK RATIO LDL/HDL (test code = 2.58 RATIO 2238) SEDIMENTATION [id number] 00:00:00 Test Item Value Reference Range Interpretation Comments SEDIMENTATION RATE (test code = 2 MM/HOUR 1017) SEDIMENTATION [id number] 00:00:00 Test Item Value Reference Range Interpretation Comments SEDIMENTATION RATE (test code = 2 MM/HOUR 1017) TSH, THIRD [id number] 00:00:00 Test Item Value Reference Range Interpretation Comments TSH, THIRD GENERATION (test code 1.220 UIU/ML = 2821) TSH, THIRD [id number] 00:00:00 Test Item Value Reference Range Interpretation Comments TSH, THIRD GENERATION (test code 1.220 UIU/ML = 2821) TSH, THIRD [id number] 00:00:00 Test Item Value Reference Range Interpretation Comments TSH, THIRD GENERATION (test code 1.220 UIU/ML = 2821) CCP [id number] 00:00:00 Test Item Value Reference Range Interpretation Comments CCP IgG (test code = 64085) <0.5 U/ML CCP [id number] 00:00:00 Test Item Value Reference Range Interpretation Comments CCP IgG (test code = 04167) <0.5 U/ML CCP [id number] 00:00:00 Test Item Value Reference Range Interpretation Comments CCP IgG (test code = 78640) <0.5 U/ML RHEUMATOID FACTOR, [id number] 00:00:00 Test Item Value Reference Range Interpretation Comments RHEUMATOID FACTOR, QUANT (test code <10 IU/ML = 3502) RHEUMATOID FACTOR, [id number] 00:00:00 Test Item Value Reference Range Interpretation Comments RHEUMATOID FACTOR, QUANT (test code <10 IU/ML = 3502) RHEUMATOID FACTOR, [id number] 00:00:00 Test Item Value Reference Range Interpretation Comments RHEUMATOID FACTOR, QUANT (test code <10 IU/ML = 3502) URIC [id number] 00:00:00 Test Item Value Reference Range Interpretation Comments URIC ACID (test code = 2233) 7.4 MG/DL URIC [id number] 00:00:00 Test Item Value Reference Range Interpretation Comments URIC ACID (test code = 2233) 7.4 MG/DL HEMOGLOBIN [id number] 00:00:00 Test Item Value Reference Range Interpretation Comments HEMOGLOBIN A1c (test code = 81371) 5.4 % HEMOGLOBIN [id number] 00:00:00 Test Item Value Reference Range Interpretation Comments HEMOGLOBIN A1c (test code = 28121) 5.4 % HEMOGLOBIN [id number] 00:00:00 Test Item Value Reference Range Interpretation Comments HEMOGLOBIN A1c (test code = 07919) 5.4 % COMPREHENSIVE METABOLIC [id number] 00:00:00 Test Item Value Reference Range Interpretation Comments GLUCOSE (test code = 2217) 88 MG/DL BUN (test code = 2208) 14 MG/DL CREATININE (test code = 2214) 0.71 MG/DL eGFR (2020 CKD-EPI) (test 101 ML/MIN/1.73 code = 26232) CALC BUN/CREAT (test code = 20 RATIO [...] code = 2219) 33 U/L COMPREHENSIVE METABOLIC [id number] 00:00:00 Test Item Value Reference Range Interpretation Comments GLUCOSE (test code = 2217) 88 MG/DL BUN (test code = 2208) 14 MG/DL CREATININE (test code = 2214) 0.71 MG/DL eGFR (2020 CKD-EPI) (test 101 ML/MIN/1.73 code = 93632) CALC BUN/CREAT (test code = 20 RATIO [...] (test code = 2219) 33 U/L LIPID [id number] 00:00:00 Test Item Value Reference Range Interpretation Comments CHOLESTEROL (test code = 2210) 135 MG/DL TRIGLYCERIDES (test code = 2232) 147 MG/DL HDL CHOLESTEROL (test code = 2220) 31 MG/DL CALC LDL CHOL (test code = 2237) 80 MG/DL RISK RATIO LDL/HDL (test code = 2.58 RATIO 2238) LIPID [id number] 00:00:00 Test Item Value Reference Range Interpretation Comments CHOLESTEROL (test code = 2210) 135 MG/DL TRIGLYCERIDES (test code = 2232) 147 MG/DL HDL CHOLESTEROL (test code = 2220) 31 MG/DL CALC LDL CHOL (test code = 2237) 80 MG/DL RISK RATIO LDL/HDL (test code = 2.58 RATIO 2238) SEDIMENTATION [id number] 00:00:00 Test Item Value Reference Range Interpretation Comments SEDIMENTATION RATE (test code = 2 MM/HOUR 1017) SEDIMENTATION [id number] 00:00:00 Test Item Value Reference Range Interpretation Comments SEDIMENTATION RATE (test code = 2 MM/HOUR 1017) TSH, THIRD [id number] 00:00:00 Test Item Value Reference Range Interpretation Comments TSH, THIRD GENERATION (test code 1.220 UIU/ML = 2821) TSH, THIRD [id number] 00:00:00 Test Item Value Reference Range Interpretation Comments TSH, THIRD GENERATION (test code 1.220 UIU/ML = 2821) TSH, THIRD [id number] 00:00:00 Test Item Value Reference Range Interpretation Comments TSH, THIRD GENERATION (test code 1.220 UIU/ML = 2821) CCP [id number] 00:00:00 Test Item Value Reference Range Interpretation Comments CCP IgG (test code = 18683) <0.5 U/ML CCP [id number] 00:00:00 Test Item Value Reference Range Interpretation Comments CCP IgG (test code = 45928) <0.5 U/ML CCP [id number] 00:00:00 Test Item Value Reference Range Interpretation Comments CCP IgG (test code = 20198) <0.5 U/ML RHEUMATOID FACTOR, [id number] 00:00:00 Test Item Value Reference Range Interpretation Comments RHEUMATOID FACTOR, QUANT (test code <10 IU/ML = 3502) RHEUMATOID FACTOR, [id number] 00:00:00 Test Item Value Reference Range Interpretation Comments RHEUMATOID FACTOR, QUANT (test code <10 IU/ML = 3502) RHEUMATOID FACTOR, [id number] 00:00:00 Test Item Value Reference Range Interpretation Comments RHEUMATOID FACTOR, QUANT (test code <10 IU/ML = 3502) URIC [id number] 00:00:00 Test Item Value Reference Range Interpretation Comments URIC ACID (test code = 2233) 7.4 MG/DL URIC [id number] 00:00:00 Test Item Value Reference Range Interpretation Comments URIC ACID (test code = 2233) 7.4 MG/DL HEMOGLOBIN [id number] 00:00:00 Test Item Value Reference Range Interpretation Comments HEMOGLOBIN A1c (test code = 39257) 5.4 % HEMOGLOBIN [id number] 00:00:00 Test Item Value Reference Range Interpretation Comments HEMOGLOBIN A1c (test code = 35781) 5.4 % HEMOGLOBIN [id number] 00:00:00 Test Item Value Reference Range Interpretation Comments HEMOGLOBIN A1c (test code = 01705) 5.4 % COMPREHENSIVE METABOLIC [id number] 00:00:00 Test Item Value Reference Range Interpretation Comments GLUCOSE (test code = 2217) 88 MG/DL BUN (test code = 2208) 14 MG/DL CREATININE (test code = 2214) 0.71 MG/DL eGFR (2020 CKD-EPI) (test 101 ML/MIN/1.73 code = 56647) CALC BUN/CREAT (test code = 20 RATIO [...] code = 2219) 33 U/L COMPREHENSIVE METABOLIC [id number] 00:00:00 Test Item Value Reference Range Interpretation Comments GLUCOSE (test code = 2217) 88 MG/DL BUN (test code = 2208) 14 MG/DL CREATININE (test code = 2214) 0.71 MG/DL eGFR (2020 CKD-EPI) (test 101 ML/MIN/1.73 code = 83912) CALC BUN/CREAT (test code = 20 RATIO [...] (test code = 2219) 33 U/L LIPID [id number] 00:00:00 Test Item Value Reference Range Interpretation Comments CHOLESTEROL (test code = 2210) 135 MG/DL TRIGLYCERIDES (test code = 2232) 147 MG/DL HDL CHOLESTEROL (test code = 2220) 31 MG/DL CALC LDL CHOL (test code = 2237) 80 MG/DL RISK RATIO LDL/HDL (test code = 2.58 RATIO 2238) LIPID [id number] 00:00:00 Test Item Value Reference Range Interpretation Comments CHOLESTEROL (test code = 2210) 135 MG/DL TRIGLYCERIDES (test code = 2232) 147 MG/DL HDL CHOLESTEROL (test code = 2220) 31 MG/DL CALC LDL CHOL (test code = 2237) 80 MG/DL RISK RATIO LDL/HDL (test code = 2.58 RATIO 2238) SEDIMENTATION [id number] 00:00:00 Test Item Value Reference Range Interpretation Comments SEDIMENTATION RATE (test code = 2 MM/HOUR 1017) SEDIMENTATION [id number] 00:00:00 Test Item Value Reference Range Interpretation Comments SEDIMENTATION RATE (test code = 2 MM/HOUR 1017) TSH, THIRD [id number] 00:00:00 Test Item Value Reference Range Interpretation Comments TSH, THIRD GENERATION (test code 1.220 UIU/ML = 2821) TSH, THIRD [id number] 00:00:00 Test Item Value Reference Range Interpretation Comments TSH, THIRD GENERATION (test code 1.220 UIU/ML = 2821) TSH, THIRD [id number] 00:00:00 Test Item Value Reference Range Interpretation Comments TSH, THIRD GENERATION (test code 1.220 UIU/ML = 2821) CCP [id number] 00:00:00 Test Item Value Reference Range Interpretation Comments CCP IgG (test code = 35373) <0.5 U/ML CCP [id number] 00:00:00 Test Item Value Reference Range Interpretation Comments CCP IgG (test code = 69248) <0.5 U/ML CCP [id number] 00:00:00 Test Item Value Reference Range Interpretation Comments CCP IgG (test code = 09425) <0.5 U/ML RHEUMATOID FACTOR, [id number] 00:00:00 Test Item Value Reference Range Interpretation Comments RHEUMATOID FACTOR, QUANT (test code <10 IU/ML = 3502) RHEUMATOID FACTOR, [id number] 00:00:00 Test Item Value Reference Range Interpretation Comments RHEUMATOID FACTOR, QUANT (test code <10 IU/ML = 3502) RHEUMATOID FACTOR, [id number] 00:00:00 Test Item Value Reference Range Interpretation Comments RHEUMATOID FACTOR, QUANT (test code <10 IU/ML = 3502) URIC [id number] 00:00:00 Test Item Value Reference Range Interpretation Comments URIC ACID (test code = 2233) 7.4 MG/DL URIC [id number] 00:00:00 Test Item Value Reference Range Interpretation Comments URIC ACID (test code = 2233) 7.4 MG/DL HEMOGLOBIN [id number] 00:00:00 Test Item Value Reference Range Interpretation Comments HEMOGLOBIN A1c (test code = 55103) 5.4 % HEMOGLOBIN [id number] 00:00:00 Test Item Value Reference Range Interpretation Comments HEMOGLOBIN A1c (test code = 07473) 5.4 % HEMOGLOBIN [id number] 00:00:00 Test Item Value Reference Range Interpretation Comments HEMOGLOBIN A1c (test code = 33540) 5.4 % COMPREHENSIVE METABOLIC [id number] 00:00:00 Test Item Value Reference Range Interpretation Comments GLUCOSE (test code = 2217) 88 MG/DL BUN (test code = 2208) 14 MG/DL CREATININE (test code = 2214) 0.71 MG/DL eGFR (2020 CKD-EPI) (test 101 ML/MIN/1.73 code = 09824) CALC BUN/CREAT (test code = 20 RATIO [...] CALC GLOBULIN (test code = 2.6 G/DL 0) CALC A/G RATIO (test code = 1.7 RATIO 4) BILIRUBIN, TOTAL (test code = 0.6 MG/DL 2206) ALKALINE PHOSPHATASE (test 102 U/L code = 2204) AST (test code = 2218) 21 U/L ALT (test code = 2219) 33 U/L COMPREHENSIVE METABOLIC [id number] 00:00:00 Test Item Value Reference Range Interpretation Comments GLUCOSE (test code = 2217) 88 MG/DL BUN (test code = 2208) 14 MG/DL CREATININE (test code = 2214) 0.71 MG/DL eGFR (2020 CKD-EPI) (test 101 ML/MIN/1.73 code = 97684) CALC BUN/CREAT (test code = 20 RATIO [...] (test code = 2219) 33 U/L LIPID [id number] 00:00:00 Test Item Value Reference Range Interpretation Comments CHOLESTEROL (test code = 2210) 135 MG/DL TRIGLYCERIDES (test code = 2232) 147 MG/DL HDL CHOLESTEROL (test code = 2220) 31 MG/DL CALC LDL CHOL (test code = 2237) 80 MG/DL RISK RATIO LDL/HDL (test code = 2.58 RATIO 2238) LIPID [id number] 00:00:00 Test Item Value Reference Range Interpretation Comments CHOLESTEROL (test code = 2210) 135 MG/DL TRIGLYCERIDES (test code = 2232) 147 MG/DL HDL CHOLESTEROL (test code = 2220) 31 MG/DL CALC LDL CHOL (test code = 2237) 80 MG/DL RISK RATIO LDL/HDL (test code = 2.58 RATIO 2238) SEDIMENTATION [id number] 00:00:00 Test Item Value Reference Range Interpretation Comments SEDIMENTATION RATE (test code = 2 MM/HOUR 1017) SEDIMENTATION [id number] 00:00:00 Test Item Value Reference Range Interpretation Comments SEDIMENTATION RATE (test code = 2 MM/HOUR 1017) TSH, THIRD [id number] 00:00:00 Test Item Value Reference Range Interpretation Comments TSH, THIRD GENERATION (test code 1.220 UIU/ML = 2821) TSH, THIRD [id number] 00:00:00 Test Item Value Reference Range Interpretation Comments TSH, THIRD GENERATION (test code 1.220 UIU/ML = 2821) TSH, THIRD [id number] 00:00:00 Test Item Value Reference Range Interpretation Comments TSH, THIRD GENERATION (test code 1.220 UIU/ML = 2821) CCP [id number] 00:00:00 Test Item Value Reference Range Interpretation Comments CCP IgG (test code = 80847) <0.5 U/ML CCP [id number] 00:00:00 Test Item Value Reference Range Interpretation Comments CCP IgG (test code = 32824) <0.5 U/ML CCP [id number] 00:00:00 Test Item Value Reference Range Interpretation Comments CCP IgG (test code = 06357) <0.5 U/ML RHEUMATOID FACTOR, [id number] 00:00:00 Test Item Value Reference Range Interpretation Comments RHEUMATOID FACTOR, QUANT (test code <10 IU/ML = 3502) RHEUMATOID FACTOR, [id number] 00:00:00 Test Item Value Reference Range Interpretation Comments RHEUMATOID FACTOR, QUANT (test code <10 IU/ML = 3502) RHEUMATOID FACTOR, [id number] 00:00:00 Test Item Value Reference Range Interpretation Comments RHEUMATOID FACTOR, QUANT (test code <10 IU/ML = 3502) URIC [id number] 00:00:00 Test Item Value Reference Range Interpretation Comments URIC ACID (test code = 2233) 7.4 MG/DL URIC [id number] 00:00:00 Test Item Value Reference Range Interpretation Comments URIC ACID (test code = 2233) 7.4 MG/DL HEMOGLOBIN [id number] 00:00:00 Test Item Value Reference Range Interpretation Comments HEMOGLOBIN A1c (test code = 15059) 5.4 % HEMOGLOBIN [id number] 00:00:00 Test Item Value Reference Range Interpretation Comments HEMOGLOBIN A1c (test code = 28658) 5.4 % HEMOGLOBIN [id number] 00:00:00 Test Item Value Reference Range Interpretation Comments HEMOGLOBIN A1c (test code = 90805) 5.4 % COMPREHENSIVE METABOLIC [id number] 00:00:00 Test Item Value Reference Range Interpretation Comments GLUCOSE (test code = 2217) 88 MG/DL BUN (test code = 2208) 14 MG/DL CREATININE (test code = 2214) 0.71 MG/DL eGFR (2020 CKD-EPI) (test 101 ML/MIN/1.73 code = 90852) CALC BUN/CREAT (test code = 20 RATIO [...] code = 2219) 33 U/L COMPREHENSIVE METABOLIC [id number] 00:00:00 Test Item Value Reference Range Interpretation Comments GLUCOSE (test code = 2217) 88 MG/DL BUN (test code = 2208) 14 MG/DL CREATININE (test code = 2214) 0.71 MG/DL eGFR (2020 CKD-EPI) (test 101 ML/MIN/1.73 code = 13840) CALC BUN/CREAT (test code = 20 RATIO [...] (test code = 2219) 33 U/L LIPID [id number] 00:00:00 Test Item Value Reference Range Interpretation Comments CHOLESTEROL (test code = 2210) 135 MG/DL TRIGLYCERIDES (test code = 2232) 147 MG/DL HDL CHOLESTEROL (test code = 2220) 31 MG/DL CALC LDL CHOL (test code = 2237) 80 MG/DL RISK RATIO LDL/HDL (test code = 2.58 RATIO 2238) LIPID [id number] 00:00:00 Test Item Value Reference Range Interpretation Comments CHOLESTEROL (test code = 2210) 135 MG/DL TRIGLYCERIDES (test code = 2232) 147 MG/DL HDL CHOLESTEROL (test code = 2220) 31 MG/DL CALC LDL CHOL (test code = 2237) 80 MG/DL RISK RATIO LDL/HDL (test code = 2.58 RATIO 2238) SEDIMENTATION [id number] 00:00:00 Test Item Value Reference Range Interpretation Comments SEDIMENTATION RATE (test code = 2 MM/HOUR 1017) SEDIMENTATION [id number] 00:00:00 Test Item Value Reference Range Interpretation Comments SEDIMENTATION RATE (test code = 2 MM/HOUR 1017) TSH, THIRD [id number] 00:00:00 Test Item Value Reference Range Interpretation Comments TSH, THIRD GENERATION (test code 1.220 UIU/ML = 2821) TSH, THIRD [id number] 00:00:00 Test Item Value Reference Range Interpretation Comments TSH, THIRD GENERATION (test code 1.220 UIU/ML = 2821) TSH, THIRD [id number] 00:00:00 Test Item Value Reference Range Interpretation Comments TSH, THIRD GENERATION (test code 1.220 UIU/ML = 2821) CCP [id number] 00:00:00 Test Item Value Reference Range Interpretation Comments CCP IgG (test code = 31629) <0.5 U/ML CCP [id number] 00:00:00 Test Item Value Reference Range Interpretation Comments CCP IgG (test code = 34189) <0.5 U/ML CCP [id number] 00:00:00 Test Item Value Reference Range Interpretation Comments CCP IgG (test code = 41086) <0.5 U/ML RHEUMATOID FACTOR, [id number] 00:00:00 Test Item Value Reference Range Interpretation Comments RHEUMATOID FACTOR, QUANT (test code <10 IU/ML = 3502) RHEUMATOID FACTOR, [id number] 00:00:00 Test Item Value Reference Range Interpretation Comments RHEUMATOID FACTOR, QUANT (test code <10 IU/ML = 3502) RHEUMATOID FACTOR, [id number] 00:00:00 Test Item Value Reference Range Interpretation Comments RHEUMATOID FACTOR, QUANT (test code <10 IU/ML = 3502) URIC [id number] 00:00:00 Test Item Value Reference Range Interpretation Comments URIC ACID (test code = 2233) 7.4 MG/DL URIC [id number] 00:00:00 Test Item Value Reference Range Interpretation Comments URIC ACID (test code = 2233) 7.4 MG/DL HEMOGLOBIN [id number] 00:00:00 Test Item Value Reference Range Interpretation Comments HEMOGLOBIN A1c (test code = 03412) 5.4 % HEMOGLOBIN [id number] 00:00:00 Test Item Value Reference Range Interpretation Comments HEMOGLOBIN A1c (test code = 35123) 5.4 % HEMOGLOBIN [id number] 00:00:00 Test Item Value Reference Range Interpretation Comments HEMOGLOBIN A1c (test code = 74620) 5.4 % COMPREHENSIVE METABOLIC [id number] 00:00:00 Test Item Value Reference Range Interpretation Comments GLUCOSE (test code = 2217) 88 MG/DL BUN (test code = 2208) 14 MG/DL CREATININE (test code = 2214) 0.71 MG/DL eGFR (2020 CKD-EPI) (test 101 ML/MIN/1.73 code = 85957) CALC BUN/CREAT (test code = 20 RATIO [...] CALC GLOBULIN (test code = 2.6 G/DL 0) CALC A/G RATIO (test code = 1.7 RATIO 4) BILIRUBIN, TOTAL (test code = 0.6 MG/DL 2206) ALKALINE PHOSPHATASE (test 102 U/L code = 2204) AST (test code = 2218) 21 U/L ALT (test code = 2219) 33 U/L COMPREHENSIVE METABOLIC [id number] 00:00:00 Test Item Value Reference Range Interpretation Comments GLUCOSE (test code = 2217) 88 MG/DL BUN (test code = 2208) 14 MG/DL CREATININE (test code = 2214) 0.71 MG/DL eGFR (2020 CKD-EPI) (test 101 ML/MIN/1.73 code = 63981) CALC BUN/CREAT (test code = 20 RATIO [...] (test code = 2219) 33 U/L LIPID [id number] 00:00:00 Test Item Value Reference Range Interpretation Comments CHOLESTEROL (test code = 2210) 135 MG/DL TRIGLYCERIDES (test code = 2232) 147 MG/DL HDL CHOLESTEROL (test code = 2220) 31 MG/DL CALC LDL CHOL (test code = 2237) 80 MG/DL RISK RATIO LDL/HDL (test code = 2.58 RATIO 2238) LIPID [id number] 00:00:00 Test Item Value Reference Range Interpretation Comments CHOLESTEROL (test code = 2210) 135 MG/DL TRIGLYCERIDES (test code = 2232) 147 MG/DL HDL CHOLESTEROL (test code = 2220) 31 MG/DL CALC LDL CHOL (test code = 2237) 80 MG/DL RISK RATIO LDL/HDL (test code = 2.58 RATIO 2238) SEDIMENTATION [id number] 00:00:00 Test Item Value Reference Range Interpretation Comments SEDIMENTATION RATE (test code = 2 MM/HOUR 1017) SEDIMENTATION [id number] 00:00:00 Test Item Value Reference Range Interpretation Comments SEDIMENTATION RATE (test code = 2 MM/HOUR 1017) TSH, THIRD [id number] 00:00:00 Test Item Value Reference Range Interpretation Comments TSH, THIRD GENERATION (test code 1.220 UIU/ML = 2821) TSH, THIRD [id number] 00:00:00 Test Item Value Reference Range Interpretation Comments TSH, THIRD GENERATION (test code 1.220 UIU/ML = 2821) TSH, THIRD [id number] 00:00:00 Test Item Value Reference Range Interpretation Comments TSH, THIRD GENERATION (test code 1.220 UIU/ML = 2821) CCP [id number] 00:00:00 Test Item Value Reference Range Interpretation Comments CCP IgG (test code = 24861) <0.5 U/ML CCP [id number] 00:00:00 Test Item Value Reference Range Interpretation Comments CCP IgG (test code = 95558) <0.5 U/ML CCP [id number] 00:00:00 Test Item Value Reference Range Interpretation Comments CCP IgG (test code = 07175) <0.5 U/ML RHEUMATOID FACTOR, [id number] 00:00:00 Test Item Value Reference Range Interpretation Comments RHEUMATOID FACTOR, QUANT (test code <10 IU/ML = 3502) RHEUMATOID FACTOR, [id number] 00:00:00 Test Item Value Reference Range Interpretation Comments RHEUMATOID FACTOR, QUANT (test code <10 IU/ML = 3502) RHEUMATOID FACTOR, [id number] 00:00:00 Test Item Value Reference Range Interpretation Comments RHEUMATOID FACTOR, QUANT (test code <10 IU/ML = 3502) URIC [id number] 00:00:00 Test Item Value Reference Range Interpretation Comments URIC ACID (test code = 2233) 7.4 MG/DL URIC [id number] 00:00:00 Test Item Value Reference Range Interpretation Comments URIC ACID (test code = 2233) 7.4 MG/DL HEMOGLOBIN [id number] 00:00:00 Test Item Value Reference Range Interpretation Comments HEMOGLOBIN A1c (test code = 63251) 5.4 % HEMOGLOBIN [id number] 00:00:00 Test Item Value Reference Range Interpretation Comments HEMOGLOBIN A1c (test code = 57119) 5.4 % HEMOGLOBIN [id number] 00:00:00 Test Item Value Reference Range Interpretation Comments HEMOGLOBIN A1c (test code = 26064) 5.4 % COMPREHENSIVE METABOLIC [id number] 00:00:00 Test Item Value Reference Range Interpretation Comments GLUCOSE (test code = 2217) 88 MG/DL BUN (test code = 2208) 14 MG/DL CREATININE (test code = 2214) 0.71 MG/DL eGFR (2020 CKD-EPI) (test 101 ML/MIN/1.73 code = 79846) CALC BUN/CREAT (test code = 20 RATIO [...] code = 2219) 33 U/L COMPREHENSIVE METABOLIC [id number] 00:00:00 Test Item Value Reference Range Interpretation Comments GLUCOSE (test code = 2217) 88 MG/DL BUN (test code = 2208) 14 MG/DL CREATININE (test code = 2214) 0.71 MG/DL eGFR (2020 CKD-EPI) (test 101 ML/MIN/1.73 code = 23349) CALC BUN/CREAT (test code = 20 RATIO [...] = 0.6 MG/DL 2207) ALKALINE PHOSPHATASE (test 102 U/L code = 2204) AST (test code = 2218) 21 U/L ALT (test code = 2219) 33 U/L LIPID [id number] 00:00:00 Test Item Value Reference Range Interpretation Comments CHOLESTEROL (test code = 2210) 135 MG/DL TRIGLYCERIDES (test code = 2232) 147 MG/DL HDL CHOLESTEROL (test code = 2220) 31 MG/DL CALC LDL CHOL (test code = 2237) 80 MG/DL RISK RATIO LDL/HDL (test code = 2.58 RATIO 2238) LIPID [id number] 00:00:00 Test Item Value Reference Range Interpretation Comments CHOLESTEROL (test code = 2210) 135 MG/DL TRIGLYCERIDES (test code = 2232) 147 MG/DL HDL CHOLESTEROL (test code = 2220) 31 MG/DL CALC LDL CHOL (test code = 2237) 80 MG/DL RISK RATIO LDL/HDL (test code = 2.58 RATIO 2238) SEDIMENTATION [id number] 00:00:00 Test Item Value Reference Range Interpretation Comments SEDIMENTATION RATE (test code = 2 MM/HOUR 1017) SEDIMENTATION [id number] 00:00:00 Test Item Value Reference Range Interpretation Comments SEDIMENTATION RATE (test code = 2 MM/HOUR 1017) TSH, THIRD [id number] 00:00:00 Test Item Value Reference Range Interpretation Comments TSH, THIRD GENERATION (test code 1.220 UIU/ML = 2821) TSH, THIRD [id number] 00:00:00 Test Item Value Reference Range Interpretation Comments TSH, THIRD GENERATION (test code 1.220 UIU/ML = 2821) TSH, THIRD [id number] 00:00:00 Test Item Value Reference Range Interpretation Comments TSH, THIRD GENERATION (test code 1.220 UIU/ML = 2821) CCP [id number] 00:00:00 Test Item Value Reference Range Interpretation Comments CCP IgG (test code = 89413) <0.5 U/ML CCP [id number] 00:00:00 Test Item Value Reference Range Interpretation Comments CCP IgG (test code = 03775) <0.5 U/ML CCP [id number] 00:00:00 Test Item Value Reference Range Interpretation Comments CCP IgG (test code = 15057) <0.5 U/ML RHEUMATOID FACTOR, [id number] 00:00:00 Test Item Value Reference Range Interpretation Comments RHEUMATOID FACTOR, QUANT (test code <10 IU/ML = 3502) RHEUMATOID FACTOR, [id number] 00:00:00 Test Item Value Reference Range Interpretation Comments RHEUMATOID FACTOR, QUANT (test code <10 IU/ML = 3502) RHEUMATOID FACTOR, [id number] 00:00:00 Test Item Value Reference Range Interpretation Comments RHEUMATOID FACTOR, QUANT (test code <10 IU/ML = 3502) URIC [id number] 00:00:00 Test Item Value Reference Range Interpretation Comments URIC ACID (test code = 2233) 7.4 MG/DL URIC [id number] 00:00:00 Test Item Value Reference Range Interpretation Comments URIC ACID (test code = 2233) 7.4 MG/DL HEMOGLOBIN [id number] 00:00:00 Test Item Value Reference Range Interpretation Comments HEMOGLOBIN A1c (test code = 22545) 5.4 % HEMOGLOBIN [id number] 00:00:00 Test Item Value Reference Range Interpretation Comments HEMOGLOBIN A1c (test code = 23739) 5.4 % HEMOGLOBIN [id number] 00:00:00 Test Item Value Reference Range Interpretation Comments HEMOGLOBIN A1c (test code = 42705) 5.4 % COMPREHENSIVE METABOLIC [id number] 00:00:00 Test Item Value Reference Range Interpretation Comments GLUCOSE (test code = 2217) 88 MG/DL BUN (test code = 2208) 14 MG/DL CREATININE (test code = 2214) 0.71 MG/DL eGFR (2020 CKD-EPI) (test 101 ML/MIN/1.73 code = 90191) CALC BUN/CREAT (test code = 20 RATIO [...] code = 2219) 33 U/L COMPREHENSIVE METABOLIC [id number] 00:00:00 Test Item Value Reference Range Interpretation Comments GLUCOSE (test code = 2217) 88 MG/DL BUN (test code = 2208) 14 MG/DL CREATININE (test code = 2214) 0.71 MG/DL eGFR (2020 CKD-EPI) (test 101 ML/MIN/1.73 code = 73975) CALC BUN/CREAT (test code = 20 RATIO [...] (test code = 2219) 33 U/L LIPID [id number] 00:00:00 Test Item Value Reference Range Interpretation Comments CHOLESTEROL (test code = 2210) 135 MG/DL TRIGLYCERIDES (test code = 2232) 147 MG/DL HDL CHOLESTEROL (test code = 2220) 31 MG/DL CALC LDL CHOL (test code = 2237) 80 MG/DL RISK RATIO LDL/HDL (test code = 2.58 RATIO 2238) LIPID [id number] 00:00:00 Test Item Value Reference Range Interpretation Comments CHOLESTEROL (test code = 2210) 135 MG/DL TRIGLYCERIDES (test code = 2232) 147 MG/DL HDL CHOLESTEROL (test code = 2220) 31 MG/DL CALC LDL CHOL (test code = 2237) 80 MG/DL RISK RATIO LDL/HDL (test code = 2.58 RATIO 2238) SEDIMENTATION [id number] 00:00:00 Test Item Value Reference Range Interpretation Comments SEDIMENTATION RATE (test code = 2 MM/HOUR 1017) SEDIMENTATION [id number] 00:00:00 Test Item Value Reference Range Interpretation Comments SEDIMENTATION RATE (test code = 2 MM/HOUR 1017) TSH, THIRD [id number] 00:00:00 Test Item Value Reference Range Interpretation Comments TSH, THIRD GENERATION (test code 1.220 UIU/ML = 2821) TSH, THIRD [id number] 00:00:00 Test Item Value Reference Range Interpretation Comments TSH, THIRD GENERATION (test code 1.220 UIU/ML = 2821) TSH, THIRD [id number] 00:00:00 Test Item Value Reference Range Interpretation Comments TSH, THIRD GENERATION (test code 1.220 UIU/ML = 2821) CCP [id number] 00:00:00 Test Item Value Reference Range Interpretation Comments CCP IgG (test code = 22686) <0.5 U/ML CCP [id number] 00:00:00 Test Item Value Reference Range Interpretation Comments CCP IgG (test code = 63349) <0.5 U/ML CCP [id number] 00:00:00 Test Item Value Reference Range Interpretation Comments CCP IgG (test code = 16282) <0.5 U/ML RHEUMATOID FACTOR, [id number] 00:00:00 Test Item Value Reference Range Interpretation Comments RHEUMATOID FACTOR, QUANT (test code <10 IU/ML = 3502) RHEUMATOID FACTOR, [id number] 00:00:00 Test Item Value Reference Range Interpretation Comments RHEUMATOID FACTOR, QUANT (test code <10 IU/ML = 3502) RHEUMATOID FACTOR, [id number] 00:00:00 Test Item Value Reference Range Interpretation Comments RHEUMATOID FACTOR, QUANT (test code <10 IU/ML = 3502) URIC [id number] 00:00:00 Test Item Value Reference Range Interpretation Comments URIC ACID (test code = 2233) 7.4 MG/DL URIC [id number] 00:00:00 Test Item Value Reference Range Interpretation Comments URIC ACID (test code = 2233) 7.4 MG/DL HEMOGLOBIN [id number] 00:00:00 Test Item Value Reference Range Interpretation Comments HEMOGLOBIN A1c (test code = 53496) 5.4 % HEMOGLOBIN [id number] 00:00:00 Test Item Value Reference Range Interpretation Comments HEMOGLOBIN A1c (test code = 54339) 5.4 % HEMOGLOBIN [id number] 00:00:00 Test Item Value Reference Range Interpretation Comments HEMOGLOBIN A1c (test code = 33129) 5.4 % COMPREHENSIVE METABOLIC [id number] 00:00:00 Test Item Value Reference Range Interpretation Comments GLUCOSE (test code = 2217) 88 MG/DL BUN (test code = 2208) 14 MG/DL CREATININE (test code = 2214) 0.71 MG/DL eGFR (2020 CKD-EPI) (test 101 ML/MIN/1.73 code = 10199) CALC BUN/CREAT (test code = 20 RATIO [...] CALC GLOBULIN (test code = 2.6 G/DL 0) CALC A/G RATIO (test code = 1.7 RATIO 4) BILIRUBIN, TOTAL (test code = 0.6 MG/DL 2206) ALKALINE PHOSPHATASE (test 102 U/L code = 2204) AST (test code = 2218) 21 U/L ALT (test code = 2219) 33 U/L COMPREHENSIVE METABOLIC [id number] 00:00:00 Test Item Value Reference Range Interpretation Comments GLUCOSE (test code = 2217) 88 MG/DL BUN (test code = 2208) 14 MG/DL CREATININE (test code = 2214) 0.71 MG/DL eGFR (2020 CKD-EPI) (test 101 ML/MIN/1.73 code = 27275) CALC BUN/CREAT (test code = 20 RATIO [...] (test code = 2219) 33 U/L LIPID [id number] 00:00:00 Test Item Value Reference Range Interpretation Comments CHOLESTEROL (test code = 2210) 135 MG/DL TRIGLYCERIDES (test code = 2232) 147 MG/DL HDL CHOLESTEROL (test code = 2220) 31 MG/DL CALC LDL CHOL (test code = 2237) 80 MG/DL RISK RATIO LDL/HDL (test code = 2.58 RATIO 2238) LIPID [id number] 00:00:00 Test Item Value Reference Range Interpretation Comments CHOLESTEROL (test code = 2210) 135 MG/DL TRIGLYCERIDES (test code = 2232) 147 MG/DL HDL CHOLESTEROL (test code = 2220) 31 MG/DL CALC LDL CHOL (test code = 2237) 80 MG/DL RISK RATIO LDL/HDL (test code = 2.58 RATIO 2238) SEDIMENTATION [id number] 00:00:00 Test Item Value Reference Range Interpretation Comments SEDIMENTATION RATE (test code = 2 MM/HOUR 1017) SEDIMENTATION [id number] 00:00:00 Test Item Value Reference Range Interpretation Comments SEDIMENTATION RATE (test code = 2 MM/HOUR 1017) TSH, THIRD [id number] 00:00:00 Test Item Value Reference Range Interpretation Comments TSH, THIRD GENERATION (test code 1.220 UIU/ML = 2821) TSH, THIRD [id number] 00:00:00 Test Item Value Reference Range Interpretation Comments TSH, THIRD GENERATION (test code 1.220 UIU/ML = 2821) TSH, THIRD [id number] 00:00:00 Test Item Value Reference Range Interpretation Comments TSH, THIRD GENERATION (test code 1.220 UIU/ML = 2821) CCP [id number] 00:00:00 Test Item Value Reference Range Interpretation Comments CCP IgG (test code = 17908) <0.5 U/ML CCP [id number] 00:00:00 Test Item Value Reference Range Interpretation Comments CCP IgG (test code = 30928) <0.5 U/ML CCP [id number] 00:00:00 Test Item Value Reference Range Interpretation Comments CCP IgG (test code = 93814) <0.5 U/ML RHEUMATOID FACTOR, [id number] 00:00:00 Test Item Value Reference Range Interpretation Comments RHEUMATOID FACTOR, QUANT (test code <10 IU/ML = 3502) RHEUMATOID FACTOR, [id number] 00:00:00 Test Item Value Reference Range Interpretation Comments RHEUMATOID FACTOR, QUANT (test code <10 IU/ML = 3502) RHEUMATOID FACTOR, [id number] 00:00:00 Test Item Value Reference Range Interpretation Comments RHEUMATOID FACTOR, QUANT (test code <10 IU/ML = 3502) URIC [id number] 00:00:00 Test Item Value Reference Range Interpretation Comments URIC ACID (test code = 2233) 7.4 MG/DL URIC [id number] 00:00:00 Test Item Value Reference Range Interpretation Comments URIC ACID (test code = 2233) 7.4 MG/DL HEMOGLOBIN [id number] 00:00:00 Test Item Value Reference Range Interpretation Comments HEMOGLOBIN A1c (test code = 82044) 5.4 % HEMOGLOBIN [id number] 00:00:00 Test Item Value Reference Range Interpretation Comments HEMOGLOBIN A1c (test code = 11203) 5.4 % HEMOGLOBIN [id number] 00:00:00 Test Item Value Reference Range Interpretation Comments HEMOGLOBIN A1c (test code = 28768) 5.4 % COMPREHENSIVE METABOLIC [id number] 00:00:00 Test Item Value Reference Range Interpretation Comments GLUCOSE (test code = 2217) 88 MG/DL BUN (test code = 2208) 14 MG/DL CREATININE (test code = 2214) 0.71 MG/DL eGFR (2020 CKD-EPI) (test 101 ML/MIN/1.73 code = 59417) CALC BUN/CREAT (test code = 20 RATIO [...] code = 2219) 33 U/L COMPREHENSIVE METABOLIC [id number] 00:00:00 Test Item Value Reference Range Interpretation Comments GLUCOSE (test code = 2217) 88 MG/DL BUN (test code = 2208) 14 MG/DL CREATININE (test code = 2214) 0.71 MG/DL eGFR (2020 CKD-EPI) (test 101 ML/MIN/1.73 code = 36243) CALC BUN/CREAT (test code = 20 RATIO [...] (test code = 2219) 33 U/L LIPID [id number] 00:00:00 Test Item Value Reference Range Interpretation Comments CHOLESTEROL (test code = 2210) 135 MG/DL TRIGLYCERIDES (test code = 2232) 147 MG/DL HDL CHOLESTEROL (test code = 2220) 31 MG/DL CALC LDL CHOL (test code = 2237) 80 MG/DL RISK RATIO LDL/HDL (test code = 2.58 RATIO 2238) LIPID [id number] 00:00:00 Test Item Value Reference Range Interpretation Comments CHOLESTEROL (test code = 2210) 135 MG/DL TRIGLYCERIDES (test code = 2232) 147 MG/DL HDL CHOLESTEROL (test code = 2220) 31 MG/DL CALC LDL CHOL (test code = 2237) 80 MG/DL RISK RATIO LDL/HDL (test code = 2.58 RATIO 2238) SEDIMENTATION [id number] 00:00:00 Test Item Value Reference Range Interpretation Comments SEDIMENTATION RATE (test code = 2 MM/HOUR 1017) SEDIMENTATION [id number] 00:00:00 Test Item Value Reference Range Interpretation Comments SEDIMENTATION RATE (test code = 2 MM/HOUR 1017) HEPATITIS PANEL, [id number] 04:33:04 Test Item Value Reference Range Interpretation [...] B: (test serology shows no code = 94502) evidence of pa st exposure to orcurrent infec tion with hepatitis B virus. No evide nce of hepatitis Bimmunization i s identified. INTERPRETATION (NOTE) Hepatitis C HEPATITIS C: (test serology shows no code = 89638) evidence of ex posure to hepatitisC v irus at this time. I t can take up to 12 m onths after exposure tothe hepatitis C vir us for antibodies to become detectab le in the blood in ce rtain patients. [id number] 03:36:41 Test Item Value Reference Range Interpretation Comments GGT (test code = 39 U/L <40 UNLESS OTH ERWISE INDICATED, 2216) ALL TESTING PER FORMED [facility], [facility]. [address], [place] [address] LABORATORY DIRE CTOR: TANNER VELASQUEZ M.D. CLIA NUMBER [id number] [facility] [place] [place]. [id number] COMPREHENSIVE METABOLIC [id number] 03:35:34 Test Item Value Reference Range Interpretation Comments GLUCOSE (test code = 98 MG/DL 70-99 2216) BUN (test code = 12 MG/DL 6-20 2207) CREATININE (test 0.70 MG/DL 0.60-1.30 code = 2214) eGFR (2020 CKD-EPI) 103 >60 (test code = 91269) ML/MIN/1.73 CALC BUN/CREAT (test 17 RATIO 6-28 code = 2235) SODIUM (test code = 140 MEQ/L 274-559 5128) POTASSIUM (test code 4.6 MEQ/L 3.5-5.4 = 2227) CHLORIDE (test code 106 MEQ/L 95-107 = 2214) CARBON DIOXIDE (test 21 MEQ/L 19-31 code = 220) CALCIUM (test code = 10.7 MG/DL 8.5-10.5 H 2208) PROTEIN, TOTAL (test 6.7 G/DL 6.1-8.3 code = 222) ALBUMIN (test code = 4.3 G/DL 3.5-5.2 [...] = 29 U/L 5-40 2218) COMPREHENSIVE METABOLIC [id number] 00:00:00 Test Item Value Reference Range Interpretation Comments GLUCOSE (test code = 2217) 98 MG/DL BUN (test code = 2208) 12 MG/DL CREATININE (test code = 2214) 0.70 MG/DL eGFR (2020 CKD-EPI) (test 103 ML/MIN/1.73 code = 57704) CALC BUN/CREAT (test code = 17 RATIO [...] code = 2219) 29 U/L COMPREHENSIVE METABOLIC [id number] 00:00:00 Test Item Value Reference Range Interpretation Comments GLUCOSE (test code = 2217) 98 MG/DL BUN (test code = 2208) 12 MG/DL CREATININE (test code = 2214) 0.70 MG/DL eGFR (2020 CKD-EPI) (test 103 ML/MIN/1.73 code = 76283) CALC BUN/CREAT (test code = 17 RATIO [...] INTERPRETATION HEPATITIS B: (NOTE) (test code = 82687) INTERPRETATION HEPATITIS C: (NOTE) (test code = 13058) HEPATITIS PROFILE (A,B,C)2021-10-14 00:00:00 Test Item Value [...] INTERPRETATION HEPATITIS B: (NOTE) (test code = 55755) INTERPRETATION HEPATITIS C: (NOTE) (test code = 98921) [id number] 00:00:00 Test Item Value Reference Range Interpretation Comments GGT (test code = 2216) 39 U/L [id number] 00:00:00 Test Item Value Reference Range Interpretation Comments GGT (test code = 2216) 39 U/L COMPREHENSIVE METABOLIC [id number] 00:00:00 Test Item Value Reference Range Interpretation Comments GLUCOSE (test code = 2217) 98 MG/DL BUN (test code = 2208) 12 MG/DL CREATININE (test code = 2214) 0.70 MG/DL eGFR (2020 CKD-EPI) (test 103 ML/MIN/1.73 code = 64304) CALC BUN/CREAT (test code = 17 RATIO [...] code = 2219) 29 U/L COMPREHENSIVE METABOLIC [id number] 00:00:00 Test Item Value Reference Range Interpretation Comments GLUCOSE (test code = 2217) 98 MG/DL BUN (test code = 2208) 12 MG/DL CREATININE (test code = 2214) 0.70 MG/DL eGFR (2020 CKD-EPI) (test 103 ML/MIN/1.73 code = 63000) CALC BUN/CREAT (test code = 17 RATIO [...] A TOTAL AB (test code NON-REACTIVE = 0475) HEPATITIS B SURF AG (test code = NON-REACTIVE 2738) HEP B CORE TOTAL AB (test code = NON-REACTIVE 2728) HEPATITIS B SURFACE AB (test NON-REACTIVE code = 2737) HEPATITIS C ANTIBODY (test code NON-REACTIVE = 4675) INTERPRETATION HEPATITIS A: (NOTE) (test code = 2552) INTERPRETATION HEPATITIS B: (NOTE) (test code = 04663) INTERPRETATION HEPATITIS C: (NOTE) (test code = 37513) HEPATITIS PROFILE (A,B,C)2021-10-14 00:00:00 Test Item Value [...] INTERPRETATION HEPATITIS B: (NOTE) (test code = 02721) INTERPRETATION HEPATITIS C: (NOTE) (test code = 11791) [id number] 00:00:00 Test Item Value Reference Range Interpretation Comments GGT (test code = 2216) 39 U/L [id number] 00:00:00 Test Item Value Reference Range Interpretation Comments GGT (test code = 2216) 39 U/L COMPREHENSIVE METABOLIC [id number] 00:00:00 Test Item Value Reference Range Interpretation Comments GLUCOSE (test code = 2217) 98 MG/DL BUN (test code = 2208) 12 MG/DL CREATININE (test code = 2214) 0.70 MG/DL eGFR (2020 CKD-EPI) (test 103 ML/MIN/1.73 code = 39631) CALC BUN/CREAT (test code = 17 RATIO [...] code = 2219) 29 U/L COMPREHENSIVE METABOLIC [id number] 00:00:00 Test Item Value Reference Range Interpretation Comments GLUCOSE (test code = 2217) 98 MG/DL BUN (test code = 2208) 12 MG/DL CREATININE (test code = 2214) 0.70 MG/DL eGFR (2020 CKD-EPI) (test 103 ML/MIN/1.73 code = 42689) CALC BUN/CREAT (test code = 17 RATIO [...] INTERPRETATION HEPATITIS B: (NOTE) (test code = 53987) INTERPRETATION HEPATITIS C: (NOTE) (test code = 18551) HEPATITIS PROFILE (A,B,C)2021-10-14 00:00:00 Test Item Value [...] INTERPRETATION HEPATITIS B: (NOTE) (test code = 68635) INTERPRETATION HEPATITIS C: (NOTE) (test code = 90869) [id number] 00:00:00 Test Item Value Reference Range Interpretation Comments GGT (test code = 2216) 39 U/L [id number] 00:00:00 Test Item Value Reference Range Interpretation Comments GGT (test code = 2216) 39 U/L COMPREHENSIVE METABOLIC [id number] 00:00:00 Test Item Value Reference Range Interpretation Comments GLUCOSE (test code = 2217) 98 MG/DL BUN (test code = 2208) 12 MG/DL CREATININE (test code = 2214) 0.70 MG/DL eGFR (2020 CKD-EPI) (test 103 ML/MIN/1.73 code = 75790) CALC BUN/CREAT (test code = 17 RATIO [...] code = 2219) 29 U/L COMPREHENSIVE METABOLIC [id number] 00:00:00 Test Item Value Reference Range Interpretation Comments GLUCOSE (test code = 2217) 98 MG/DL BUN (test code = 2208) 12 MG/DL CREATININE (test code = 2214) 0.70 MG/DL eGFR (2020 CKD-EPI) (test 103 ML/MIN/1.73 code = 92308) CALC BUN/CREAT (test code = 17 RATIO [...] INTERPRETATION HEPATITIS B: (NOTE) (test code = 65086) INTERPRETATION HEPATITIS C: (NOTE) (test code = 14114) HEPATITIS PROFILE (A,B,C)2021-10-14 00:00:00 Test Item Value [...] INTERPRETATION HEPATITIS B: (NOTE) (test code = 83457) INTERPRETATION HEPATITIS C: (NOTE) (test code = 76383) [id number] 00:00:00 Test Item Value Reference Range Interpretation Comments GGT (test code = 2216) 39 U/L [id number] 00:00:00 Test Item Value Reference Range Interpretation Comments GGT (test code = 2216) 39 U/L COMPREHENSIVE METABOLIC [id number] 00:00:00 Test Item Value Reference Range Interpretation Comments GLUCOSE (test code = 2217) 98 MG/DL BUN (test code = 2208) 12 MG/DL CREATININE (test code = 2214) 0.70 MG/DL eGFR (2020 CKD-EPI) (test 103 ML/MIN/1.73 code = 04927) CALC BUN/CREAT (test code = 17 RATIO [...] A/G RATIO (test code = 1.8 RATIO 223) BILIRUBIN, TOTAL (test code = 0.5 MG/DL 2206) ALKALINE PHOSPHATASE (test 102 U/L code = 2204) AST (test code = 2218) 17 U/L ALT (test code = 2219) 29 U/L COMPREHENSIVE METABOLIC [id number] 00:00:00 Test Item Value Reference Range Interpretation Comments GLUCOSE (test code = 2217) 98 MG/DL BUN (test code = 2208) 12 MG/DL CREATININE (test code = 2214) 0.70 MG/DL eGFR (2020 CKD-EPI) (test 103 ML/MIN/1.73 code = 28096) CALC BUN/CREAT (test code = 17 RATIO [...] INTERPRETATION HEPATITIS B: (NOTE) (test code = 48723) INTERPRETATION HEPATITIS C: (NOTE) (test code = 56299) HEPATITIS PROFILE (A,B,C)2021-10-14 00:00:00 Test Item Value [...] INTERPRETATION HEPATITIS B: (NOTE) (test code = 63792) INTERPRETATION HEPATITIS C: (NOTE) (test code = 12996) [id number] 00:00:00 Test Item Value Reference Range Interpretation Comments GGT (test code = 2216) 39 U/L [id number] 00:00:00 Test Item Value Reference Range Interpretation Comments GGT (test code = 2216) 39 U/L COMPREHENSIVE METABOLIC [id number] 00:00:00 Test Item Value Reference Range Interpretation Comments GLUCOSE (test code = 2217) 98 MG/DL BUN (test code = 2208) 12 MG/DL CREATININE (test code = 2214) 0.70 MG/DL eGFR (2020 CKD-EPI) (test 103 ML/MIN/1.73 code = 68402) CALC BUN/CREAT (test code = 17 RATIO [...] code = 2219) 29 U/L COMPREHENSIVE METABOLIC [id number] 00:00:00 Test Item Value Reference Range Interpretation Comments GLUCOSE (test code = 2217) 98 MG/DL BUN (test code = 2208) 12 MG/DL CREATININE (test code = 2214) 0.70 MG/DL eGFR (2020 CKD-EPI) (test 103 ML/MIN/1.73 code = 81222) CALC BUN/CREAT (test code = 17 RATIO [...] A TOTAL AB (test code NON-REACTIVE = 8003) HEPATITIS B SURF AG (test code = NON-REACTIVE 2739) HEP B CORE TOTAL AB (test code = NON-REACTIVE 2729) HEPATITIS B SURFACE AB (test NON-REACTIVE code = 2737) HEPATITIS C ANTIBODY (test code NON-REACTIVE = 4675) INTERPRETATION HEPATITIS A: (NOTE) (test code = 2552) INTERPRETATION HEPATITIS B: (NOTE) (test code = 07195) INTERPRETATION HEPATITIS C: (NOTE) (test code = 17082) HEPATITIS PROFILE (A,B,C)2021-10-14 00:00:00 Test Item Value [...] INTERPRETATION HEPATITIS B: (NOTE) (test code = 71210) INTERPRETATION HEPATITIS C: (NOTE) (test code = 15018) [id number] 00:00:00 Test Item Value Reference Range Interpretation Comments GGT (test code = 2216) 39 U/L [id number] 00:00:00 Test Item Value Reference Range Interpretation Comments GGT (test code = 2216) 39 U/L COMPREHENSIVE METABOLIC [id number] 00:00:00 Test Item Value Reference Range Interpretation Comments GLUCOSE (test code = 2217) 98 MG/DL BUN (test code = 2208) 12 MG/DL CREATININE (test code = 2214) 0.70 MG/DL eGFR (2020 CKD-EPI) (test 103 ML/MIN/1.73 code = 81635) CALC BUN/CREAT (test code = 17 RATIO [...] code = 2219) 29 U/L COMPREHENSIVE METABOLIC [id number] 00:00:00 Test Item Value Reference Range Interpretation Comments GLUCOSE (test code = 2217) 98 MG/DL BUN (test code = 2208) 12 MG/DL CREATININE (test code = 2214) 0.70 MG/DL eGFR (2020 CKD-EPI) (test 103 ML/MIN/1.73 code = 82115) CALC BUN/CREAT (test code = 17 RATIO [...] INTERPRETATION HEPATITIS B: (NOTE) (test code = 78470) INTERPRETATION HEPATITIS C: (NOTE) (test code = 84820) HEPATITIS PROFILE (A,B,C)2021-10-14 00:00:00 Test Item Value [...] INTERPRETATION HEPATITIS B: (NOTE) (test code = 38495) INTERPRETATION HEPATITIS C: (NOTE) (test code = 45857) [id number] 00:00:00 Test Item Value Reference Range Interpretation Comments GGT (test code = 2216) 39 U/L [id number] 00:00:00 Test Item Value Reference Range Interpretation Comments GGT (test code = 2216) 39 U/L COMPREHENSIVE METABOLIC [id number] 00:00:00 Test Item Value Reference Range Interpretation Comments GLUCOSE (test code = 2217) 98 MG/DL BUN (test code = 2208) 12 MG/DL CREATININE (test code = 2214) 0.70 MG/DL eGFR (2020 CKD-EPI) (test 103 ML/MIN/1.73 code = 31409) CALC BUN/CREAT (test code = 17 RATIO 223) SODIUM (test code = 2231) [...] code = 2219) 29 U/L COMPREHENSIVE METABOLIC [id number] 00:00:00 Test Item Value Reference Range Interpretation Comments GLUCOSE (test code = 2217) 98 MG/DL BUN (test code = 2208) 12 MG/DL CREATININE (test code = 2214) 0.70 MG/DL eGFR (2020 CKD-EPI) (test 103 ML/MIN/1.73 code = 07825) CALC BUN/CREAT (test code = 17 RATIO 223) SODIUM (test code = 2231) [...] INTERPRETATION HEPATITIS B: (NOTE) (test code = 05594) INTERPRETATION HEPATITIS C: (NOTE) (test code = 20949) HEPATITIS PROFILE (A,B,C)2021-10-14 00:00:00 Test Item Value [...] INTERPRETATION HEPATITIS B: (NOTE) (test code = 20976) INTERPRETATION HEPATITIS C: (NOTE) (test code = 99190) [id number] 00:00:00 Test Item Value Reference Range Interpretation Comments GGT (test code = 2216) 39 U/L [id number] 00:00:00 Test Item Value Reference Range Interpretation Comments GGT (test code = 2216) 39 U/L COMPREHENSIVE METABOLIC [id number] 00:00:00 Test Item Value Reference Range Interpretation Comments GLUCOSE (test code = 2217) 98 MG/DL BUN (test code = 2208) 12 MG/DL CREATININE (test code = 2214) 0.70 MG/DL eGFR (2020 CKD-EPI) (test 103 ML/MIN/1.73 code = 18374) CALC BUN/CREAT (test code = 17 RATIO 223) SODIUM (test code = 2231) [...] code = 2219) 29 U/L COMPREHENSIVE METABOLIC [id number] 00:00:00 Test Item Value Reference Range Interpretation Comments GLUCOSE (test code = 2217) 98 MG/DL BUN (test code = 2208) 12 MG/DL CREATININE (test code = 2214) 0.70 MG/DL eGFR (2020 CKD-EPI) (test 103 ML/MIN/1.73 code = 76728) CALC BUN/CREAT (test code = 17 RATIO [...] INTERPRETATION HEPATITIS B: (NOTE) (test code = 55293) INTERPRETATION HEPATITIS C: (NOTE) (test code = 11842) HEPATITIS PROFILE (A,B,C)2021-10-14 00:00:00 Test Item Value [...] INTERPRETATION HEPATITIS B: (NOTE) (test code = 61664) INTERPRETATION HEPATITIS C: (NOTE) (test code = 42035) [id number] 00:00:00 Test Item Value Reference Range Interpretation Comments GGT (test code = 2216) 39 U/L [id number] 00:00:00 Test Item Value Reference Range Interpretation Comments GGT (test code = 2216) 39 U/L COMPREHENSIVE METABOLIC [id number] 00:00:00 Test Item Value Reference Range Interpretation Comments GLUCOSE (test code = 2217) 98 MG/DL BUN (test code = 2208) 12 MG/DL CREATININE (test code = 2214) 0.70 MG/DL eGFR (2020 CKD-EPI) (test 103 ML/MIN/1.73 code = 04440) CALC BUN/CREAT (test code = 17 RATIO [...] = 220) AST (test code = 2218) 17 U/L ALT (test code = 2219) 29 U/L COMPREHENSIVE METABOLIC [id number] 00:00:00 Test Item Value Reference Range Interpretation Comments GLUCOSE (test code = 2217) 98 MG/DL BUN (test code = 2208) 12 MG/DL CREATININE (test code = 2214) 0.70 MG/DL eGFR (2020 CKD-EPI) (test 103 ML/MIN/1.73 code = 29889) CALC BUN/CREAT (test code = 17 RATIO [...] INTERPRETATION HEPATITIS B: (NOTE) (test code = 20965) INTERPRETATION HEPATITIS C: (NOTE) (test code = 97023) HEPATITIS PROFILE (A,B,C)2021-10-14 00:00:00 Test Item Value [...] INTERPRETATION HEPATITIS B: (NOTE) (test code = 60795) INTERPRETATION HEPATITIS C: (NOTE) (test code = 82466) [id number] 00:00:00 Test Item Value Reference Range Interpretation Comments GGT (test code = 2216) 39 U/L [id number] 00:00:00 Test Item Value Reference Range Interpretation Comments GGT (test code = 2216) 39 U/L COMPREHENSIVE METABOLIC [id number] 00:00:00 Test Item Value Reference Range Interpretation Comments GLUCOSE (test code = 2217) 98 MG/DL BUN (test code = 2208) 12 MG/DL CREATININE (test code = 2214) 0.70 MG/DL eGFR (2020 CKD-EPI) (test 103 ML/MIN/1.73 code = 78663) CALC BUN/CREAT (test code = 17 RATIO [...] code = 2219) 29 U/L COMPREHENSIVE METABOLIC [id number] 00:00:00 Test Item Value Reference Range Interpretation Comments GLUCOSE (test code = 2217) 98 MG/DL BUN (test code = 2208) 12 MG/DL CREATININE (test code = 2214) 0.70 MG/DL eGFR (2020 CKD-EPI) (test 103 ML/MIN/1.73 code = 09137) CALC BUN/CREAT (test code = 17 RATIO 2235) SODIUM (test code = 2231) 140 MEQ/L POTASSIUM (test code = 2228) 4.6 MEQ/L CHLORIDE (test code = 2215) 106 MEQ/L CARBON DIOXIDE (test code = 21 MEQ/L 2205) CALCIUM (test code = 2209) 10.7 MG/DL PROTEIN, TOTAL (test code = 6.7 G/DL 9) ALBUMIN (test code = 2201) 4.3 G/DL [...] A TOTAL AB (test code NON-REACTIVE = 8025) HEPATITIS B SURF AG (test code = NON-REACTIVE 273) HEP B CORE TOTAL AB (test code = NON-REACTIVE 2728) HEPATITIS B SURFACE AB (test NON-REACTIVE code = 3037) HEPATITIS C ANTIBODY (test code NON-REACTIVE = 4675) INTERPRETATION HEPATITIS A: (NOTE) (test code = 2552) INTERPRETATION HEPATITIS B: (NOTE) (test code = 33528) INTERPRETATION HEPATITIS C: (NOTE) (test code = 01436) HEPATITIS PROFILE (A,B,C)2021-10-14 00:00:00 Test Item Value [...] INTERPRETATION HEPATITIS B: (NOTE) (test code = 44814) INTERPRETATION HEPATITIS C: (NOTE) (test code = 43108) [id number] 00:00:00 Test Item Value Reference Range Interpretation Comments GGT (test code = 2216) 39 U/L [id number] 00:00:00 Test Item Value Reference Range Interpretation Comments GGT (test code = 2216) 39 U/L CALCIUM, URINE, 24 [id number] 07:02:15 Test Item Value Reference Range Interpretation Comments CALCIUM, URINE, 12 MG/DL NOT ESTAB CONC. (test code = 2098) CALCIUM, URINE, 360 MG/24 HR 100-300 H 24 HR (test code = 2065) TOTAL URINE 3000 ML 500-3500 UNLESS OTHERWI SE VOLUME (test code INDICATED, ALL TESTING = 2055) PERFORMED [facility] [address] [place] [address] 4 LABORATORY DIRE CTOR: TANNER HOPKINS M.D. CLIA NUMBER [id number] [place] [id number] CALCIUM, URINE, 24 [id number] 00:00:00 Test Item Value Reference Range Interpretation Comments CALCIUM, URINE, CONC. (test code 12 MG/DL = 2098) CALCIUM, URINE, 24 HR (test code 360 MG/24HR = 2065) TOTAL URINE VOLUME (test code = 3000 ML 2055) CALCIUM, URINE, 24 [id number] 00:00:00 Test Item Value Reference Range Interpretation Comments CALCIUM, URINE, CONC. (test code 12 MG/DL = 2098) CALCIUM, URINE, 24 HR (test code 360 MG/24HR = 2065) TOTAL URINE VOLUME (test code = 3000 ML 2055) CALCIUM, URINE, 24 [id number] 00:00:00 Test Item Value Reference Range Interpretation Comments CALCIUM, URINE, CONC. (test code 12 MG/DL = 2098) CALCIUM, URINE, 24 HR (test code 360 MG/24HR = 2065) TOTAL URINE VOLUME (test code = 3000 ML 2055) CALCIUM, URINE, 24 [id number] 00:00:00 Test Item Value Reference Range Interpretation Comments CALCIUM, URINE, CONC. (test code 12 MG/DL = 2098) CALCIUM, URINE, 24 HR (test code 360 MG/24HR = 2065) TOTAL URINE VOLUME (test code = 3000 ML 2055) CALCIUM, URINE, 24 [id number] 00:00:00 Test Item Value Reference Range Interpretation Comments CALCIUM, URINE, CONC. (test code 12 MG/DL = 2098) CALCIUM, URINE, 24 HR (test code 360 MG/24HR = 2065) TOTAL URINE VOLUME (test code = 3000 ML 2055) CALCIUM, URINE, 24 [id number] 00:00:00 Test Item Value Reference Range Interpretation Comments CALCIUM, URINE, CONC. (test code 12 MG/DL = 2098) CALCIUM, URINE, 24 HR (test code 360 MG/24HR = 2065) TOTAL URINE VOLUME (test code = 3000 ML 2055) CALCIUM, URINE, 24 [id number] 00:00:00 Test Item Value Reference Range Interpretation Comments CALCIUM, URINE, CONC. (test code 12 MG/DL = 2098) CALCIUM, URINE, 24 HR (test code 360 MG/24HR = 2065) TOTAL URINE VOLUME (test code = 3000 ML 2055) CALCIUM, URINE, 24 [id number] 00:00:00 Test Item Value Reference Range Interpretation Comments CALCIUM, URINE, CONC. (test code 12 MG/DL = 2098) CALCIUM, URINE, 24 HR (test code 360 MG/24HR = 2065) TOTAL URINE VOLUME (test code = 3000 ML 2055) CALCIUM, URINE, 24 [id number] 00:00:00 Test Item Value Reference Range Interpretation Comments CALCIUM, URINE, CONC. (test code 12 MG/DL = 2098) CALCIUM, URINE, 24 HR (test code 360 MG/24HR = 2065) TOTAL URINE VOLUME (test code = 3000 ML 2055) CALCIUM, URINE, 24 [id number] 00:00:00 Test Item Value Reference Range Interpretation Comments CALCIUM, URINE, CONC. (test code 12 MG/DL = 2098) CALCIUM, URINE, 24 HR (test code 360 MG/24HR = 2065) TOTAL URINE VOLUME (test code = 3000 ML 2055) CALCIUM, URINE, 24 [id number] 00:00:00 Test Item Value Reference Range Interpretation Comments CALCIUM, URINE, CONC. (test code 12 MG/DL = 2098) CALCIUM, URINE, 24 HR (test code 360 MG/24HR = 2065) TOTAL URINE VOLUME (test code = 3000 ML 2055) CALCIUM, URINE, 24 [id number] 00:00:00 Test Item Value Reference Range Interpretation Comments CALCIUM, URINE, CONC. (test code 12 MG/DL = 2098) CALCIUM, URINE, 24 HR (test code 360 MG/24HR = 2065) TOTAL URINE VOLUME (test code = 3000 ML 2055) CALCIUM, URINE, 24 [id number] 00:00:00 Test Item Value Reference Range Interpretation Comments CALCIUM, URINE, CONC. (test code 12 MG/DL = 2098) CALCIUM, URINE, 24 HR (test code 360 MG/24HR = 2065) TOTAL URINE VOLUME (test code = 3000 ML 2055) CALCIUM, URINE, 24 [id number] 00:00:00 Test Item Value Reference Range Interpretation Comments CALCIUM, URINE, CONC. (test code 12 MG/DL = 2098) CALCIUM, URINE, 24 HR (test code 360 MG/24HR = 2065) TOTAL URINE VOLUME (test code = 3000 ML 2055) CALCIUM, URINE, 24 [id number] 00:00:00 Test Item Value Reference Range Interpretation Comments CALCIUM, URINE, CONC. (test code 12 MG/DL = 2098) CALCIUM, URINE, 24 HR (test code 360 MG/24HR = 2065) TOTAL URINE VOLUME (test code = 3000 ML 2055) CALCIUM, URINE, 24 [id number] 00:00:00 Test Item Value Reference Range Interpretation Comments CALCIUM, URINE, CONC. (test code 12 MG/DL = 2098) CALCIUM, URINE, 24 HR (test code 360 MG/24HR = 2065) TOTAL URINE VOLUME (test code = 3000 ML 2055) CALCIUM, URINE, 24 [id number] 00:00:00 Test Item Value Reference Range Interpretation Comments CALCIUM, URINE, CONC. (test code 12 MG/DL = 2098) CALCIUM, URINE, 24 HR (test code 360 MG/24HR = 2065) TOTAL URINE VOLUME (test code = 3000 ML 2055) CALCIUM, URINE, 24 [id number] 00:00:00 Test Item Value Reference Range Interpretation Comments CALCIUM, URINE, CONC. (test code 12 MG/DL = 2098) CALCIUM, URINE, 24 HR (test code 360 MG/24HR = 2065) TOTAL URINE VOLUME (test code = 3000 ML 2055) CALCIUM, URINE, 24 [id number] 00:00:00 Test Item Value Reference Range Interpretation Comments CALCIUM, URINE, CONC. (test code 12 MG/DL = 2098) CALCIUM, URINE, 24 HR (test code 360 MG/24HR = 2065) TOTAL URINE VOLUME (test code = 3000 ML 2055) CALCIUM, URINE, 24 [id number] 00:00:00 Test Item Value Reference Range Interpretation Comments CALCIUM, URINE, CONC. (test code 12 MG/DL = 2098) CALCIUM, URINE, 24 HR (test code 360 MG/24HR = 2065) TOTAL URINE VOLUME (test code = 3000 ML 2055) CALCIUM, URINE, 24 [id number] 00:00:00 Test Item Value Reference Range Interpretation Comments CALCIUM, URINE, CONC. (test code 12 MG/DL = 2098) CALCIUM, URINE, 24 HR (test code 360 MG/24HR = 2065) TOTAL URINE VOLUME (test code = 3000 ML 2055) CALCIUM, URINE, 24 [id number] 00:00:00 Test Item Value Reference Range Interpretation Comments CALCIUM, URINE, CONC. (test code 12 MG/DL = 2098) CALCIUM, URINE, 24 HR (test code 360 MG/24HR = 2065) TOTAL URINE VOLUME (test code = 3000 ML 2055) FUROSEMIDE, [id number] 10:22:19 Test Item Value Reference Range Interpretation Comments FUROSEMIDE, None Det ng/mL Reporting Rubi it: 100 SERUM (test ng/mLMean peak serum code = 45182) levels of 2300 +/- 500 ng/mL wereobtai carey approximately 1 hour after a single oral dose of 80 mg furose mide in fasting subject s.This test was rohini chacon and its performance characteristics determined by [facility]. It has not been cleared or [...] an y result. TESTING PERFORM ED AT [facility] [address] [place] [address] [id number] CLIA NO. [id number] [place] [id number] FUROSEMIDE, [id number] 00:00:00 Test Item Value Reference Range Interpretation Comments FUROSEMIDE, SERUM (test code = None Det ng/mL 50317) FUROSEMIDE, [id number] 00:00:00 Test Item Value Reference Range Interpretation Comments FUROSEMIDE, SERUM (test code = None Det ng/mL 56781) FUROSEMIDE, [id number] 00:00:00 Test Item Value Reference Range Interpretation Comments FUROSEMIDE, SERUM (test code = None Det ng/mL 77981) FUROSEMIDE, [id number] 00:00:00 Test Item Value Reference Range Interpretation Comments FUROSEMIDE, SERUM (test code = None Det ng/mL 24678) FUROSEMIDE, [id number] 00:00:00 Test Item Value Reference Range Interpretation Comments FUROSEMIDE, SERUM (test code = None Det ng/mL 79075) FUROSEMIDE, [id number] 00:00:00 Test Item Value Reference Range Interpretation Comments FUROSEMIDE, SERUM (test code = None Det ng/mL 76171) FUROSEMIDE, [id number] 00:00:00 Test Item Value Reference Range Interpretation Comments FUROSEMIDE, SERUM (test code = None Det ng/mL 55165) FUROSEMIDE, [id number] 00:00:00 Test Item Value Reference Range Interpretation Comments FUROSEMIDE, SERUM (test code = None Det ng/mL 14019) FUROSEMIDE, [id number] 00:00:00 Test Item Value Reference Range Interpretation Comments FUROSEMIDE, SERUM (test code = None Det ng/mL 71109) FUROSEMIDE, [id number] 00:00:00 Test Item Value Reference Range Interpretation Comments FUROSEMIDE, SERUM (test code = None Det ng/mL 61288) FUROSEMIDE, [id number] 00:00:00 Test Item Value Reference Range Interpretation Comments FUROSEMIDE, SERUM (test code = None Det ng/mL 25210) FUROSEMIDE, [id number] 00:00:00 Test Item Value Reference Range Interpretation Comments FUROSEMIDE, SERUM (test code = None Det ng/mL 95527) FUROSEMIDE, [id number] 00:00:00 Test Item Value Reference Range Interpretation Comments FUROSEMIDE, SERUM (test code = None Det ng/mL 47046) FUROSEMIDE, [id number] 00:00:00 Test Item Value Reference Range Interpretation Comments FUROSEMIDE, SERUM (test code = None Det ng/mL 87347) FUROSEMIDE, [id number] 00:00:00 Test Item Value Reference Range Interpretation Comments FUROSEMIDE, SERUM (test code = None Det ng/mL 25187) FUROSEMIDE, [id number] 00:00:00 Test Item Value Reference Range Interpretation Comments FUROSEMIDE, SERUM (test code = None Det ng/mL 82234) FUROSEMIDE, [id number] 00:00:00 Test Item Value Reference Range Interpretation Comments FUROSEMIDE, SERUM (test code = None Det ng/mL 27634) FUROSEMIDE, [id number] 00:00:00 Test Item Value Reference Range Interpretation Comments FUROSEMIDE, SERUM (test code = None Det ng/mL 88472) FUROSEMIDE, [id number] 00:00:00 Test Item Value Reference Range Interpretation Comments FUROSEMIDE, SERUM (test code = None Det ng/mL 52109) FUROSEMIDE, [id number] 00:00:00 Test Item Value Reference Range Interpretation Comments FUROSEMIDE, SERUM (test code = None Det ng/mL 41146) FUROSEMIDE, [id number] 00:00:00 Test Item Value Reference Range Interpretation Comments FUROSEMIDE, SERUM (test code = None Det ng/mL 73248) FUROSEMIDE, [id number] 00:00:00 Test Item Value Reference Range Interpretation Comments FUROSEMIDE, SERUM (test code = None Det ng/mL 71470) [id number] 11:27:02 Test Item Value Reference Range Interpretation [...] this result as normal/abnor mal. TSH, THIRD [id number] 05:58:42 Test Item Value Reference Range Interpretation Comments TSH, THIRD GENERATION (test code 2.070 UIU/ML 0.400-4.100 = 2821) PROTHROMBIN TIME (PT)2021-10-04 05:04:36 Test Item Value Reference Range Interpretation Comments PROTHROMBIN TIME 14.0 SECONDS 12.5-14.7 (PT) (test code = 1402) INR (test code = 1.0 SEE BELOW CURRENT 01737) RECOMMENDATIONS ARE FOR AN INR OF 2 .0-3.0 FOR ALL PATIENT S ON VITAMIN K ANTAG ONISTS, EXCEPT THOSE WI TH PROSTHETIC HEAR T VALVES, FOR WHO M INR OF 2.5-3.5 IS RECOMMENDED. UN LESS OTHERWISE INDIC ATED, ALL TESTING PER FORMED [facility], I MD. [address] [place] [id number] [place] [address] DIRECTOR: Sahara HUTSONIA NUMBER [id number] CAP ACCREDITATION N O. [id number] HEMOGLOBIN [id number] 05:01:00 Test Item Value Reference Range Interpretation Comments HEMOGLOBIN A1c (test code = 15123) 5.3 % 4.2-5.6 COMPREHENSIVE METABOLIC [id number] 04:33:44 Test Item Value Reference Range Interpretation Comments GLUCOSE (test code = 126 MG/DL 70-99 H 2216) BUN (test code = 14 MG/DL -20 2207) CREATININE (test 0.76 MG/DL 0.60-1.30 code = 2214) eGFR (2020 CKD-EPI) 93 ML/MIN/1.73 >60 (test code = 10234) CALC BUN/CREAT (test 18 RATIO 6-28 code = 2235) SODIUM (test code = 140 MEQ/L 669-474 6692) POTASSIUM (test code 4.1 MEQ/L 3.5-5.4 = 2227) CHLORIDE (test code 107 MEQ/L 95-107 = 221) CARBON DIOXIDE (test 24 MEQ/L 19-31 code = 2206) CALCIUM (test code = 10.8 MG/DL 8.5-10.5 H 2208) PROTEIN, TOTAL (test 6.5 G/DL 6.1-8.3 code = 222) ALBUMIN (test code = 4.0 G/DL 3.5-5.2 2200) CALC GLOBULIN (test 2.5 G/DL 1.9-3.7 code = 2240) CALC A/G RATIO (test 1.6 RATIO 1.0-2.6 code = 2234) BILIRUBIN, TOTAL 0.9 MG/DL See_Comment [Automated message] (test code = 220) The syste m which generated this result transmit alex reference range : <=1.2. The refe rence range was not u sed to interpret th is result as normal/abnormal . ALKALINE PHOSPHATASE 116 U/L 40-133 (test code = 2203) AST (test code = 31 U/L 9-40 2217) ALT (test code = 89 U/L 5-40 H 2218) [id number] 00:00:00 Test Item Value Reference Range Interpretation Comments TSH, THIRD GENERATION (test code 2.070 UIU/ML = 2821) [id number] 00:00:00 Test Item Value Reference Range Interpretation Comments TSH, THIRD GENERATION (test code 2.070 UIU/ML = 2821) [id number] 00:00:00 Test Item Value Reference Range Interpretation Comments TSH, THIRD GENERATION (test code 2.070 UIU/ML = 2821) HEMOGLOBIN [id number] 00:00:00 Test Item Value Reference Range Interpretation Comments HEMOGLOBIN A1c (test code = 83953) 5.3 % HEMOGLOBIN [id number] 00:00:00 Test Item Value Reference Range Interpretation Comments HEMOGLOBIN A1c (test code = 28718) 5.3 % HEMOGLOBIN [id number] 00:00:00 Test Item Value Reference Range Interpretation Comments HEMOGLOBIN A1c (test code = 23474) 5.3 % [id number] 00:00:00 Test Item Value Reference Range Interpretation Comments D-DIMER (test code = 1405) <0.27 UG/MLFEU [id number] 00:00:00 Test Item Value Reference Range Interpretation Comments D-DIMER (test code = 1405) <0.27 UG/MLFEU PROTHROMBIN TIME (PT)2021-10-04 00:00:00 Test Item Value Reference Range Interpretation Comments PROTHROMBIN TIME (PT) (test code 14.0 SECONDS = 1402) INR (test code = 67952) 1.0 PROTHROMBIN TIME (PT)2021-10-04 00:00:00 Test Item Value Reference Range Interpretation Comments PROTHROMBIN TIME (PT) (test code 14.0 SECONDS = 1402) INR (test code = 91076) 1.0 COMPREHENSIVE METABOLIC [id number] 00:00:00 Test Item Value Reference Range Interpretation Comments GLUCOSE (test code = 2217) 126 MG/DL BUN (test code = 2208) 14 MG/DL CREATININE (test code = 2214) 0.76 MG/DL eGFR (2020 CKD-EPI) (test code 93 ML/MIN/1.73 = 05902) CALC BUN/CREAT (test code = 18 RATIO [...] code = 2219) 89 U/L COMPREHENSIVE METABOLIC [id number] 00:00:00 Test Item Value Reference Range Interpretation Comments GLUCOSE (test code = 2217) 126 MG/DL BUN (test code = 2208) 14 MG/DL CREATININE (test code = 2214) 0.76 MG/DL eGFR (2020 CKD-EPI) (test code 93 ML/MIN/1.73 = 09525) CALC BUN/CREAT (test code = 18 RATIO [...] ALT (test code = 2219) 89 U/L [id number] 00:00:00 Test Item Value Reference Range Interpretation Comments TSH, THIRD GENERATION (test code 2.070 UIU/ML = 2821) [id number] 00:00:00 Test Item Value Reference Range Interpretation Comments TSH, THIRD GENERATION (test code 2.070 UIU/ML = 2821) [id number] 00:00:00 Test Item Value Reference Range Interpretation Comments TSH, THIRD GENERATION (test code 2.070 UIU/ML = 2821) HEMOGLOBIN [id number] 00:00:00 Test Item Value Reference Range Interpretation Comments HEMOGLOBIN A1c (test code = 32423) 5.3 % HEMOGLOBIN [id number] 00:00:00 Test Item Value Reference Range Interpretation Comments HEMOGLOBIN A1c (test code = 38321) 5.3 % HEMOGLOBIN [id number] 00:00:00 Test Item Value Reference Range Interpretation Comments HEMOGLOBIN A1c (test code = 34655) 5.3 % [id number] 00:00:00 Test Item Value Reference Range Interpretation Comments D-DIMER (test code = 1405) <0.27 UG/MLFEU [id number] 00:00:00 Test Item Value Reference Range Interpretation Comments D-DIMER (test code = 1405) <0.27 UG/MLFEU PROTHROMBIN TIME (PT)2021-10-04 00:00:00 Test Item Value Reference Range Interpretation Comments PROTHROMBIN TIME (PT) (test code 14.0 SECONDS = 1402) INR (test code = 94599) 1.0 PROTHROMBIN TIME (PT)2021-10-04 00:00:00 Test Item Value Reference Range Interpretation Comments PROTHROMBIN TIME (PT) (test code 14.0 SECONDS = 1402) INR (test code = 53574) 1.0 COMPREHENSIVE METABOLIC [id number] 00:00:00 Test Item Value Reference Range Interpretation Comments GLUCOSE (test code = 2217) 126 MG/DL BUN (test code = 2208) 14 MG/DL CREATININE (test code = 2214) 0.76 MG/DL eGFR (2020 CKD-EPI) (test code 93 ML/MIN/1.73 = 57874) CALC BUN/CREAT (test code = 18 RATIO [...] code = 2219) 89 U/L COMPREHENSIVE METABOLIC [id number] 00:00:00 Test Item Value Reference Range Interpretation Comments GLUCOSE (test code = 2217) 126 MG/DL BUN (test code = 2208) 14 MG/DL CREATININE (test code = 2214) 0.76 MG/DL eGFR (2020 CKD-EPI) (test code 93 ML/MIN/1.73 = 84142) CALC BUN/CREAT (test code = 18 RATIO [...] ALKALINE PHOSPHATASE (test 116 U/L code = 220) AST (test code = 2218) 31 U/L ALT (test code = 2219) 89 U/L [id number] 00:00:00 Test Item Value Reference Range Interpretation Comments TSH, THIRD GENERATION (test code 2.070 UIU/ML = 2821) [id number] 00:00:00 Test Item Value Reference Range Interpretation Comments TSH, THIRD GENERATION (test code 2.070 UIU/ML = 2821) [id number] 00:00:00 Test Item Value Reference Range Interpretation Comments TSH, THIRD GENERATION (test code 2.070 UIU/ML = 2821) HEMOGLOBIN [id number] 00:00:00 Test Item Value Reference Range Interpretation Comments HEMOGLOBIN A1c (test code = 63877) 5.3 % HEMOGLOBIN [id number] 00:00:00 Test Item Value Reference Range Interpretation Comments HEMOGLOBIN A1c (test code = 87068) 5.3 % HEMOGLOBIN [id number] 00:00:00 Test Item Value Reference Range Interpretation Comments HEMOGLOBIN A1c (test code = 13913) 5.3 % [id number] 00:00:00 Test Item Value Reference Range Interpretation Comments D-DIMER (test code = 1405) <0.27 UG/MLFEU [id number] 00:00:00 Test Item Value Reference Range Interpretation Comments D-DIMER (test code = 1405) <0.27 UG/MLFEU PROTHROMBIN TIME (PT)2021-10-04 00:00:00 Test Item Value Reference Range Interpretation Comments PROTHROMBIN TIME (PT) (test code 14.0 SECONDS = 1402) INR (test code = 48789) 1.0 PROTHROMBIN TIME (PT)2021-10-04 00:00:00 Test Item Value Reference Range Interpretation Comments PROTHROMBIN TIME (PT) (test code 14.0 SECONDS = 1402) INR (test code = 95317) 1.0 COMPREHENSIVE METABOLIC [id number] 00:00:00 Test Item Value Reference Range Interpretation Comments GLUCOSE (test code = 2217) 126 MG/DL BUN (test code = 2208) 14 MG/DL CREATININE (test code = 2214) 0.76 MG/DL eGFR (2020 CKD-EPI) (test code 93 ML/MIN/1.73 = 48844) CALC BUN/CREAT (test code = 18 RATIO [...] code = 2219) 89 U/L COMPREHENSIVE METABOLIC [id number] 00:00:00 Test Item Value Reference Range Interpretation Comments GLUCOSE (test code = 2217) 126 MG/DL BUN (test code = 2208) 14 MG/DL CREATININE (test code = 2214) 0.76 MG/DL eGFR (2020 CKD-EPI) (test code 93 ML/MIN/1.73 = 18633) CALC BUN/CREAT (test code = 18 RATIO [...] ALT (test code = 2219) 89 U/L [id number] 00:00:00 Test Item Value Reference Range Interpretation Comments TSH, THIRD GENERATION (test code 2.070 UIU/ML = 2821) [id number] 00:00:00 Test Item Value Reference Range Interpretation Comments TSH, THIRD GENERATION (test code 2.070 UIU/ML = 2821) [id number] 00:00:00 Test Item Value Reference Range Interpretation Comments TSH, THIRD GENERATION (test code 2.070 UIU/ML = 2821) HEMOGLOBIN [id number] 00:00:00 Test Item Value Reference Range Interpretation Comments HEMOGLOBIN A1c (test code = 71369) 5.3 % HEMOGLOBIN [id number] 00:00:00 Test Item Value Reference Range Interpretation Comments HEMOGLOBIN A1c (test code = 32863) 5.3 % HEMOGLOBIN [id number] 00:00:00 Test Item Value Reference Range Interpretation Comments HEMOGLOBIN A1c (test code = 72890) 5.3 % [id number] 00:00:00 Test Item Value Reference Range Interpretation Comments D-DIMER (test code = 1405) <0.27 UG/MLFEU [id number] 00:00:00 Test Item Value Reference Range Interpretation Comments D-DIMER (test code = 1405) <0.27 UG/MLFEU PROTHROMBIN TIME (PT)2021-10-04 00:00:00 Test Item Value Reference Range Interpretation Comments PROTHROMBIN TIME (PT) (test code 14.0 SECONDS = 1402) INR (test code = 90101) 1.0 PROTHROMBIN TIME (PT)2021-10-04 00:00:00 Test Item Value Reference Range Interpretation Comments PROTHROMBIN TIME (PT) (test code 14.0 SECONDS = 1402) INR (test code = 43154) 1.0 COMPREHENSIVE METABOLIC [id number] 00:00:00 Test Item Value Reference Range Interpretation Comments GLUCOSE (test code = 2217) 126 MG/DL BUN (test code = 2208) 14 MG/DL CREATININE (test code = 2214) 0.76 MG/DL eGFR (2020 CKD-EPI) (test code 93 ML/MIN/1.73 = 36591) CALC BUN/CREAT (test code = 18 RATIO [...] code = 2219) 89 U/L COMPREHENSIVE METABOLIC [id number] 00:00:00 Test Item Value Reference Range Interpretation Comments GLUCOSE (test code = 2217) 126 MG/DL BUN (test code = 2208) 14 MG/DL CREATININE (test code = 2214) 0.76 MG/DL eGFR (2020 CKD-EPI) (test code 93 ML/MIN/1.73 = 10199) CALC BUN/CREAT (test code = 18 RATIO [...] ALT (test code = 2219) 89 U/L [id number] 00:00:00 Test Item Value Reference Range Interpretation Comments TSH, THIRD GENERATION (test code 2.070 UIU/ML = 2821) [id number] 00:00:00 Test Item Value Reference Range Interpretation Comments TSH, THIRD GENERATION (test code 2.070 UIU/ML = 2821) [id number] 00:00:00 Test Item Value Reference Range Interpretation Comments TSH, THIRD GENERATION (test code 2.070 UIU/ML = 2821) HEMOGLOBIN [id number] 00:00:00 Test Item Value Reference Range Interpretation Comments HEMOGLOBIN A1c (test code = 48240) 5.3 % HEMOGLOBIN [id number] 00:00:00 Test Item Value Reference Range Interpretation Comments HEMOGLOBIN A1c (test code = 13228) 5.3 % HEMOGLOBIN [id number] 00:00:00 Test Item Value Reference Range Interpretation Comments HEMOGLOBIN A1c (test code = 20116) 5.3 % [id number] 00:00:00 Test Item Value Reference Range Interpretation Comments D-DIMER (test code = 1405) <0.27 UG/MLFEU [id number] 00:00:00 Test Item Value Reference Range Interpretation Comments D-DIMER (test code = 1405) <0.27 UG/MLFEU PROTHROMBIN TIME (PT)2021-10-04 00:00:00 Test Item Value Reference Range Interpretation Comments PROTHROMBIN TIME (PT) (test code 14.0 SECONDS = 1402) INR (test code = 19262) 1.0 PROTHROMBIN TIME (PT)2021-10-04 00:00:00 Test Item Value Reference Range Interpretation Comments PROTHROMBIN TIME (PT) (test code 14.0 SECONDS = 1402) INR (test code = 48124) 1.0 COMPREHENSIVE METABOLIC [id number] 00:00:00 Test Item Value Reference Range Interpretation Comments GLUCOSE (test code = 2217) 126 MG/DL BUN (test code = 2208) 14 MG/DL CREATININE (test code = 2214) 0.76 MG/DL eGFR (2020 CKD-EPI) (test code 93 ML/MIN/1.73 = 19267) CALC BUN/CREAT (test code = 18 RATIO [...] code = 2219) 89 U/L COMPREHENSIVE METABOLIC [id number] 00:00:00 Test Item Value Reference Range Interpretation Comments GLUCOSE (test code = 2217) 126 MG/DL BUN (test code = 2208) 14 MG/DL CREATININE (test code = 2214) 0.76 MG/DL eGFR (2020 CKD-EPI) (test code 93 ML/MIN/1.73 = 52938) CALC BUN/CREAT (test code = 18 RATIO [...] ALT (test code = 2219) 89 U/L [id number] 00:00:00 Test Item Value Reference Range Interpretation Comments TSH, THIRD GENERATION (test code 2.070 UIU/ML = 2821) [id number] 00:00:00 Test Item Value Reference Range Interpretation Comments TSH, THIRD GENERATION (test code 2.070 UIU/ML = 2821) [id number] 00:00:00 Test Item Value Reference Range Interpretation Comments TSH, THIRD GENERATION (test code 2.070 UIU/ML = 2821) HEMOGLOBIN [id number] 00:00:00 Test Item Value Reference Range Interpretation Comments HEMOGLOBIN A1c (test code = 66249) 5.3 % HEMOGLOBIN [id number] 00:00:00 Test Item Value Reference Range Interpretation Comments HEMOGLOBIN A1c (test code = 72080) 5.3 % HEMOGLOBIN [id number] 00:00:00 Test Item Value Reference Range Interpretation Comments HEMOGLOBIN A1c (test code = 23858) 5.3 % [id number] 00:00:00 Test Item Value Reference Range Interpretation Comments D-DIMER (test code = 1405) <0.27 UG/MLFEU [id number] 00:00:00 Test Item Value Reference Range Interpretation Comments D-DIMER (test code = 1405) <0.27 UG/MLFEU PROTHROMBIN TIME (PT)2021-10-04 00:00:00 Test Item Value Reference Range Interpretation Comments PROTHROMBIN TIME (PT) (test code 14.0 SECONDS = 1402) INR (test code = 95184) 1.0 PROTHROMBIN TIME (PT)2021-10-04 00:00:00 Test Item Value Reference Range Interpretation Comments PROTHROMBIN TIME (PT) (test code 14.0 SECONDS = 1402) INR (test code = 38684) 1.0 COMPREHENSIVE METABOLIC [id number] 00:00:00 Test Item Value Reference Range Interpretation Comments GLUCOSE (test code = 2217) 126 MG/DL BUN (test code = 2208) 14 MG/DL CREATININE (test code = 2214) 0.76 MG/DL eGFR (2020 CKD-EPI) (test code 93 ML/MIN/1.73 = 98762) CALC BUN/CREAT (test code = 18 RATIO [...] code = 2219) 89 U/L COMPREHENSIVE METABOLIC [id number] 00:00:00 Test Item Value Reference Range Interpretation Comments GLUCOSE (test code = 2217) 126 MG/DL BUN (test code = 2208) 14 MG/DL CREATININE (test code = 2214) 0.76 MG/DL eGFR (2020 CKD-EPI) (test code 93 ML/MIN/1.73 = 66310) CALC BUN/CREAT (test code = 18 RATIO [...] ALT (test code = 2219) 89 U/L [id number] 00:00:00 Test Item Value Reference Range Interpretation Comments TSH, THIRD GENERATION (test code 2.070 UIU/ML = 2821) [id number] 00:00:00 Test Item Value Reference Range Interpretation Comments TSH, THIRD GENERATION (test code 2.070 UIU/ML = 2821) [id number] 00:00:00 Test Item Value Reference Range Interpretation Comments TSH, THIRD GENERATION (test code 2.070 UIU/ML = 2821) HEMOGLOBIN [id number] 00:00:00 Test Item Value Reference Range Interpretation Comments HEMOGLOBIN A1c (test code = 43641) 5.3 % HEMOGLOBIN [id number] 00:00:00 Test Item Value Reference Range Interpretation Comments HEMOGLOBIN A1c (test code = 12155) 5.3 % HEMOGLOBIN [id number] 00:00:00 Test Item Value Reference Range Interpretation Comments HEMOGLOBIN A1c (test code = 36367) 5.3 % [id number] 00:00:00 Test Item Value Reference Range Interpretation Comments D-DIMER (test code = 1405) <0.27 UG/MLFEU [id number] 00:00:00 Test Item Value Reference Range Interpretation Comments D-DIMER (test code = 1405) <0.27 UG/MLFEU PROTHROMBIN TIME (PT)2021-10-04 00:00:00 Test Item Value Reference Range Interpretation Comments PROTHROMBIN TIME (PT) (test code 14.0 SECONDS = 1402) INR (test code = 48368) 1.0 PROTHROMBIN TIME (PT)2021-10-04 00:00:00 Test Item Value Reference Range Interpretation Comments PROTHROMBIN TIME (PT) (test code 14.0 SECONDS = 1402) INR (test code = 98217) 1.0 COMPREHENSIVE METABOLIC [id number] 00:00:00 Test Item Value Reference Range Interpretation Comments GLUCOSE (test code = 2217) 126 MG/DL BUN (test code = 2208) 14 MG/DL CREATININE (test code = 2214) 0.76 MG/DL eGFR (2020 CKD-EPI) (test code 93 ML/MIN/1.73 = 83354) CALC BUN/CREAT (test code = 18 RATIO [...] code = 2219) 89 U/L COMPREHENSIVE METABOLIC [id number] 00:00:00 Test Item Value Reference Range Interpretation Comments GLUCOSE (test code = 2217) 126 MG/DL BUN (test code = 2208) 14 MG/DL CREATININE (test code = 2214) 0.76 MG/DL eGFR (2020 CKD-EPI) (test code 93 ML/MIN/1.73 = 86681) CALC BUN/CREAT (test code = 18 RATIO [...] ALT (test code = 2219) 89 U/L [id number] 00:00:00 Test Item Value Reference Range Interpretation Comments TSH, THIRD GENERATION (test code 2.070 UIU/ML = 2821) [id number] 00:00:00 Test Item Value Reference Range Interpretation Comments TSH, THIRD GENERATION (test code 2.070 UIU/ML = 2821) [id number] 00:00:00 Test Item Value Reference Range Interpretation Comments TSH, THIRD GENERATION (test code 2.070 UIU/ML = 2821) HEMOGLOBIN [id number] 00:00:00 Test Item Value Reference Range Interpretation Comments HEMOGLOBIN A1c (test code = 76919) 5.3 % HEMOGLOBIN [id number] 00:00:00 Test Item Value Reference Range Interpretation Comments HEMOGLOBIN A1c (test code = 48383) 5.3 % HEMOGLOBIN [id number] 00:00:00 Test Item Value Reference Range Interpretation Comments HEMOGLOBIN A1c (test code = 59463) 5.3 % [id number] 00:00:00 Test Item Value Reference Range Interpretation Comments D-DIMER (test code = 1405) <0.27 UG/MLFEU [id number] 00:00:00 Test Item Value Reference Range Interpretation Comments D-DIMER (test code = 1405) <0.27 UG/MLFEU PROTHROMBIN TIME (PT)2021-10-04 00:00:00 Test Item Value Reference Range Interpretation Comments PROTHROMBIN TIME (PT) (test code 14.0 SECONDS = 1402) INR (test code = 49045) 1.0 PROTHROMBIN TIME (PT)2021-10-04 00:00:00 Test Item Value Reference Range Interpretation Comments PROTHROMBIN TIME (PT) (test code 14.0 SECONDS = 1402) INR (test code = 27059) 1.0 COMPREHENSIVE METABOLIC [id number] 00:00:00 Test Item Value Reference Range Interpretation Comments GLUCOSE (test code = 2217) 126 MG/DL BUN (test code = 2208) 14 MG/DL CREATININE (test code = 2214) 0.76 MG/DL eGFR (2020 CKD-EPI) (test code 93 ML/MIN/1.73 = 55434) CALC BUN/CREAT (test code = 18 RATIO [...] code = 2219) 89 U/L COMPREHENSIVE METABOLIC [id number] 00:00:00 Test Item Value Reference Range Interpretation Comments GLUCOSE (test code = 2217) 126 MG/DL BUN (test code = 2208) 14 MG/DL CREATININE (test code = 2214) 0.76 MG/DL eGFR (2020 CKD-EPI) (test code 93 ML/MIN/1.73 = 70450) CALC BUN/CREAT (test code = 18 RATIO [...] ALT (test code = 2219) 89 U/L [id number] 00:00:00 Test Item Value Reference Range Interpretation Comments TSH, THIRD GENERATION (test code 2.070 UIU/ML = 2821) [id number] 00:00:00 Test Item Value Reference Range Interpretation Comments TSH, THIRD GENERATION (test code 2.070 UIU/ML = 2821) [id number] 00:00:00 Test Item Value Reference Range Interpretation Comments TSH, THIRD GENERATION (test code 2.070 UIU/ML = 2821) HEMOGLOBIN [id number] 00:00:00 Test Item Value Reference Range Interpretation Comments HEMOGLOBIN A1c (test code = 26213) 5.3 % HEMOGLOBIN [id number] 00:00:00 Test Item Value Reference Range Interpretation Comments HEMOGLOBIN A1c (test code = 52419) 5.3 % HEMOGLOBIN [id number] 00:00:00 Test Item Value Reference Range Interpretation Comments HEMOGLOBIN A1c (test code = 84721) 5.3 % [id number] 00:00:00 Test Item Value Reference Range Interpretation Comments D-DIMER (test code = 1405) <0.27 UG/MLFEU [id number] 00:00:00 Test Item Value Reference Range Interpretation Comments D-DIMER (test code = 1405) <0.27 UG/MLFEU PROTHROMBIN TIME (PT)2021-10-04 00:00:00 Test Item Value Reference Range Interpretation Comments PROTHROMBIN TIME (PT) (test code 14.0 SECONDS = 1402) INR (test code = 50237) 1.0 PROTHROMBIN TIME (PT)2021-10-04 00:00:00 Test Item Value Reference Range Interpretation Comments PROTHROMBIN TIME (PT) (test code 14.0 SECONDS = 1402) INR (test code = 58808) 1.0 COMPREHENSIVE METABOLIC [id number] 00:00:00 Test Item Value Reference Range Interpretation Comments GLUCOSE (test code = 2217) 126 MG/DL BUN (test code = 2208) 14 MG/DL CREATININE (test code = 2214) 0.76 MG/DL eGFR (2020 CKD-EPI) (test code 93 ML/MIN/1.73 = 91551) CALC BUN/CREAT (test code = 18 RATIO [...] code = 2219) 89 U/L COMPREHENSIVE METABOLIC [id number] 00:00:00 Test Item Value Reference Range Interpretation Comments GLUCOSE (test code = 2217) 126 MG/DL BUN (test code = 2208) 14 MG/DL CREATININE (test code = 2214) 0.76 MG/DL eGFR (2020 CKD-EPI) (test code 93 ML/MIN/1.73 = 84186) CALC BUN/CREAT (test code = 18 RATIO [...] ALT (test code = 2219) 89 U/L [id number] 00:00:00 Test Item Value Reference Range Interpretation Comments TSH, THIRD GENERATION (test code 2.070 UIU/ML = 2821) [id number] 00:00:00 Test Item Value Reference Range Interpretation Comments TSH, THIRD GENERATION (test code 2.070 UIU/ML = 2821) [id number] 00:00:00 Test Item Value Reference Range Interpretation Comments TSH, THIRD GENERATION (test code 2.070 UIU/ML = 2821) HEMOGLOBIN [id number] 00:00:00 Test Item Value Reference Range Interpretation Comments HEMOGLOBIN A1c (test code = 74435) 5.3 % HEMOGLOBIN [id number] 00:00:00 Test Item Value Reference Range Interpretation Comments HEMOGLOBIN A1c (test code = 08206) 5.3 % HEMOGLOBIN [id number] 00:00:00 Test Item Value Reference Range Interpretation Comments HEMOGLOBIN A1c (test code = 01377) 5.3 % [id number] 00:00:00 Test Item Value Reference Range Interpretation Comments D-DIMER (test code = 1405) <0.27 UG/MLFEU [id number] 00:00:00 Test Item Value Reference Range Interpretation Comments D-DIMER (test code = 1405) <0.27 UG/MLFEU PROTHROMBIN TIME (PT)2021-10-04 00:00:00 Test Item Value Reference Range Interpretation Comments PROTHROMBIN TIME (PT) (test code 14.0 SECONDS = 1402) INR (test code = 78646) 1.0 PROTHROMBIN TIME (PT)2021-10-04 00:00:00 Test Item Value Reference Range Interpretation Comments PROTHROMBIN TIME (PT) (test code 14.0 SECONDS = 1402) INR (test code = 61302) 1.0 COMPREHENSIVE METABOLIC [id number] 00:00:00 Test Item Value Reference Range Interpretation Comments GLUCOSE (test code = 2217) 126 MG/DL BUN (test code = 2208) 14 MG/DL CREATININE (test code = 2214) 0.76 MG/DL eGFR (2020 CKD-EPI) (test code 93 ML/MIN/1.73 = 42675) CALC BUN/CREAT (test code = 18 RATIO [...] code = 2219) 89 U/L COMPREHENSIVE METABOLIC [id number] 00:00:00 Test Item Value Reference Range Interpretation Comments GLUCOSE (test code = 2217) 126 MG/DL BUN (test code = 2208) 14 MG/DL CREATININE (test code = 2214) 0.76 MG/DL eGFR (2020 CKD-EPI) (test code 93 ML/MIN/1.73 = 24153) CALC BUN/CREAT (test code = 18 RATIO 5) SODIUM (test code = 2231) [...] ALT (test code = 2219) 89 U/L [id number] 00:00:00 Test Item Value Reference Range Interpretation Comments TSH, THIRD GENERATION (test code 2.070 UIU/ML = 2821) [id number] 00:00:00 Test Item Value Reference Range Interpretation Comments TSH, THIRD GENERATION (test code 2.070 UIU/ML = 2821) [id number] 00:00:00 Test Item Value Reference Range Interpretation Comments TSH, THIRD GENERATION (test code 2.070 UIU/ML = 2821) HEMOGLOBIN [id number] 00:00:00 Test Item Value Reference Range Interpretation Comments HEMOGLOBIN A1c (test code = 46687) 5.3 % HEMOGLOBIN [id number] 00:00:00 Test Item Value Reference Range Interpretation Comments HEMOGLOBIN A1c (test code = 77958) 5.3 % HEMOGLOBIN [id number] 00:00:00 Test Item Value Reference Range Interpretation Comments HEMOGLOBIN A1c (test code = 29530) 5.3 % [id number] 00:00:00 Test Item Value Reference Range Interpretation Comments D-DIMER (test code = 1405) <0.27 UG/MLFEU [id number] 00:00:00 Test Item Value Reference Range Interpretation Comments D-DIMER (test code = 1405) <0.27 UG/MLFEU PROTHROMBIN TIME (PT)2021-10-04 00:00:00 Test Item Value Reference Range Interpretation Comments PROTHROMBIN TIME (PT) (test code 14.0 SECONDS = 1402) INR (test code = 74655) 1.0 PROTHROMBIN TIME (PT)2021-10-04 00:00:00 Test Item Value Reference Range Interpretation Comments PROTHROMBIN TIME (PT) (test code 14.0 SECONDS = 1402) INR (test code = 77774) 1.0 COMPREHENSIVE METABOLIC [id number] 00:00:00 Test Item Value Reference Range Interpretation Comments GLUCOSE (test code = 2217) 126 MG/DL BUN (test code = 2208) 14 MG/DL CREATININE (test code = 2214) 0.76 MG/DL eGFR (2020 CKD-EPI) (test code 93 ML/MIN/1.73 = 62931) CALC BUN/CREAT (test code = 18 RATIO [...] code = 2219) 89 U/L COMPREHENSIVE METABOLIC [id number] 00:00:00 Test Item Value Reference Range Interpretation Comments GLUCOSE (test code = 2217) 126 MG/DL BUN (test code = 2208) 14 MG/DL CREATININE (test code = 2214) 0.76 MG/DL eGFR (2020 CKD-EPI) (test code 93 ML/MIN/1.73 = 47969) CALC BUN/CREAT (test code = 18 RATIO [...] ALKALINE PHOSPHATASE (test 116 U/L code = 2203) AST (test code = 2218) 31 U/L ALT (test code = 2219) 89 U/L CBC W/AUTO DIFF WITH [id number] 03:31:03 Test Item Value Reference Range Interpretation [...] RBCS 0.00 K/UL 0.00-0.11 (test code = 55459) COMPREHENSIVE METABOLIC [id number] 03:15:48 Test Item Value Reference Range Interpretation Comments GLUCOSE (test code = 100 MG/DL 70-99 H 2216) BUN (test code = 13 MG/DL 6-20 2207) CREATININE (test 0.63 MG/DL 0.60-1.30 code = 2214) eGFR (2020 CKD-EPI) 105 >60 (test code = 71332) ML/MIN/1.73 CALC BUN/CREAT (test 21 RATIO 6-28 code = 2235) SODIUM (test code = 141 MEQ/L 892-990 0015) POTASSIUM (test code 4.5 MEQ/L 3.5-5.4 = 2227) CHLORIDE (test code 109 MEQ/L 95-107 H = 2214) CARBON DIOXIDE (test 23 MEQ/L 19-31 code = 220) CALCIUM (test code = 11.1 MG/DL 8.5-10.5 H 2208) PROTEIN, TOTAL (test 7.0 G/DL 6.1-8.3 code = 2229) ALBUMIN (test code = 4.0 G/DL 3.5-5.2 2200) CALC GLOBULIN (test 3.0 G/DL 1.9-3.7 code = 2240) CALC A/G RATIO (test 1.3 RATIO 1.0-2.6 code = 2234) BILIRUBIN, TOTAL 0.6 MG/DL See_Comment [Automated message] (test code = 2207) The [employer] which generated this result transmitted ref erence [...] [facility] [place]. [address] [facility] [place] [address] [facility] DIRECTOR: TANNER VELASQUEZ M.D. CLIA NUMBER [id number] CAP ACCREDITATION N O. [id number] COMPREHENSIVE METABOLIC [id number] 00:00:00 Test Item Value Reference Range Interpretation Comments GLUCOSE (test code = 2217) 100 MG/DL BUN (test code = 2208) 13 MG/DL CREATININE (test code = 2214) 0.63 MG/DL eGFR (2020 CKD-EPI) (test 105 ML/MIN/1.73 code = 72112) CALC BUN/CREAT (test code = 21 RATIO [...] code = 2219) 33 U/L COMPREHENSIVE METABOLIC [id number] 00:00:00 Test Item Value Reference Range Interpretation Comments GLUCOSE (test code = 2217) 100 MG/DL BUN (test code = 2208) 13 MG/DL CREATININE (test code = 2214) 0.63 MG/DL eGFR (2020 CKD-EPI) (test 105 ML/MIN/1.73 code = 08071) CALC BUN/CREAT (test code = 21 RATIO [...] code = 2219) 33 U/L COMPREHENSIVE METABOLIC [id number] 00:00:00 Test Item Value Reference Range Interpretation Comments GLUCOSE (test code = 2217) 100 MG/DL BUN (test code = 2208) 13 MG/DL CREATININE (test code = 2214) 0.63 MG/DL eGFR (2020 CKD-EPI) (test 105 ML/MIN/1.73 code = 54099) CALC BUN/CREAT (test code = 21 RATIO [...] code = 2219) 33 U/L CBC W/AUTO [id number] 00:00:00 Test Item Value Reference Range Interpretation [...] NUCLEATED RBCS (test code = 0.00 K/UL 07450) CBC W/AUTO [id number] 00:00:00 Test Item Value Reference Range Interpretation [...] NUCLEATED RBCS (test code = 0.00 K/UL 36252) CBC W/AUTO [id number] 00:00:00 Test Item Value Reference Range Interpretation [...] NUCLEATED RBCS (test code = 0.00 K/UL 04610) COMPREHENSIVE METABOLIC [id number] 00:00:00 Test Item Value Reference Range Interpretation Comments GLUCOSE (test code = 2217) 100 MG/DL BUN (test code = 2208) 13 MG/DL CREATININE (test code = 2214) 0.63 MG/DL eGFR (2020 CKD-EPI) (test 105 ML/MIN/1.73 code = 67855) CALC BUN/CREAT (test code = 21 RATIO [...] code = 2219) 33 U/L COMPREHENSIVE METABOLIC [id number] 00:00:00 Test Item Value Reference Range Interpretation Comments GLUCOSE (test code = 2217) 100 MG/DL BUN (test code = 2208) 13 MG/DL CREATININE (test code = 2214) 0.63 MG/DL eGFR (2020 CKD-EPI) (test 105 ML/MIN/1.73 code = 67633) CALC BUN/CREAT (test code = 21 RATIO [...] code = 2219) 33 U/L CBC W/AUTO [id number] 00:00:00 Test Item Value Reference Range Interpretation [...] NUCLEATED RBCS (test code = 0.00 K/UL 09466) CBC W/AUTO [id number] 00:00:00 Test Item Value Reference Range Interpretation [...] NUCLEATED RBCS (test code = 0.00 K/UL 96156) CBC W/AUTO [id number] 00:00:00 Test Item Value Reference Range Interpretation [...] NUCLEATED RBCS (test code = 0.00 K/UL 56087) COMPREHENSIVE METABOLIC [id number] 00:00:00 Test Item Value Reference Range Interpretation Comments GLUCOSE (test code = 2217) 100 MG/DL BUN (test code = 2208) 13 MG/DL CREATININE (test code = 2214) 0.63 MG/DL eGFR (2020 CKD-EPI) (test 105 ML/MIN/1.73 code = 90372) CALC BUN/CREAT (test code = 21 RATIO [...] code = 2219) 33 U/L COMPREHENSIVE METABOLIC [id number] 00:00:00 Test Item Value Reference Range Interpretation Comments GLUCOSE (test code = 2217) 100 MG/DL BUN (test code = 2208) 13 MG/DL CREATININE (test code = 2214) 0.63 MG/DL eGFR (2020 CKD-EPI) (test 105 ML/MIN/1.73 code = 66748) CALC BUN/CREAT (test code = 21 RATIO [...] BILIRUBIN, TOTAL (test code = 0.6 MG/DL 7) ALKALINE PHOSPHATASE (test 99 U/L code = 2204) AST (test code = 2218) 23 U/L ALT (test code = 2219) 33 U/L CBC W/AUTO [id number] 00:00:00 Test Item Value Reference Range Interpretation [...] NUCLEATED RBCS (test code = 0.00 K/UL 30306) CBC W/AUTO [id number] 00:00:00 Test Item Value Reference Range Interpretation [...] NUCLEATED RBCS (test code = 0.00 K/UL 66620) CBC W/AUTO [id number] 00:00:00 Test Item Value Reference Range Interpretation [...] NUCLEATED RBCS (test code = 0.00 K/UL 78936) COMPREHENSIVE METABOLIC [id number] 00:00:00 Test Item Value Reference Range Interpretation Comments GLUCOSE (test code = 2217) 100 MG/DL BUN (test code = 2208) 13 MG/DL CREATININE (test code = 2214) 0.63 MG/DL eGFR (2020 CKD-EPI) (test 105 ML/MIN/1.73 code = 62270) CALC BUN/CREAT (test code = 21 RATIO [...] code = 2219) 33 U/L COMPREHENSIVE METABOLIC [id number] 00:00:00 Test Item Value Reference Range Interpretation Comments GLUCOSE (test code = 2217) 100 MG/DL BUN (test code = 2208) 13 MG/DL CREATININE (test code = 2214) 0.63 MG/DL eGFR (2020 CKD-EPI) (test 105 ML/MIN/1.73 code = 14638) CALC BUN/CREAT (test code = 21 RATIO [...] CALC GLOBULIN (test code = 3.0 G/DL 0) CALC A/G RATIO (test code = 1.3 RATIO 2233) BILIRUBIN, TOTAL (test code = 0.6 MG/DL 2206) ALKALINE PHOSPHATASE (test 99 U/L code = 2204) AST (test code = 2218) 23 U/L ALT (test code = 2219) 33 U/L CBC W/AUTO [id number] 00:00:00 Test Item Value Reference Range Interpretation [...] NUCLEATED RBCS (test code = 0.00 K/UL 03166) CBC W/AUTO [id number] 00:00:00 Test Item Value Reference Range Interpretation [...] NUCLEATED RBCS (test code = 0.00 K/UL 16354) CBC W/AUTO [id number] 00:00:00 Test Item Value Reference Range Interpretation [...] NUCLEATED RBCS (test code = 0.00 K/UL 13901) COMPREHENSIVE METABOLIC [id number] 00:00:00 Test Item Value Reference Range Interpretation Comments GLUCOSE (test code = 2217) 100 MG/DL BUN (test code = 2208) 13 MG/DL CREATININE (test code = 2214) 0.63 MG/DL eGFR (2020 CKD-EPI) (test 105 ML/MIN/1.73 code = 75682) CALC BUN/CREAT (test code = 21 RATIO [...] code = 2219) 33 U/L COMPREHENSIVE METABOLIC [id number] 00:00:00 Test Item Value Reference Range Interpretation Comments GLUCOSE (test code = 2217) 100 MG/DL BUN (test code = 2208) 13 MG/DL CREATININE (test code = 2214) 0.63 MG/DL eGFR (2020 CKD-EPI) (test 105 ML/MIN/1.73 code = 46580) CALC BUN/CREAT (test code = 21 RATIO 2234) SODIUM (test code = 2231) 141 MEQ/L [...] code = 2219) 33 U/L CBC W/AUTO [id number] 00:00:00 Test Item Value Reference Range Interpretation [...] NUCLEATED RBCS (test code = 0.00 K/UL 06673) CBC W/AUTO [id number] 00:00:00 Test Item Value Reference Range Interpretation [...] NUCLEATED RBCS (test code = 0.00 K/UL 29710) CBC W/AUTO [id number] 00:00:00 Test Item Value Reference Range Interpretation [...] NUCLEATED RBCS (test code = 0.00 K/UL 07433) COMPREHENSIVE METABOLIC [id number] 00:00:00 Test Item Value Reference Range Interpretation Comments GLUCOSE (test code = 2217) 100 MG/DL BUN (test code = 2208) 13 MG/DL CREATININE (test code = 2214) 0.63 MG/DL eGFR (2020 CKD-EPI) (test 105 ML/MIN/1.73 code = 67540) CALC BUN/CREAT (test code = 21 RATIO [...] code = 2219) 33 U/L COMPREHENSIVE METABOLIC [id number] 00:00:00 Test Item Value Reference Range Interpretation Comments GLUCOSE (test code = 2217) 100 MG/DL BUN (test code = 2208) 13 MG/DL CREATININE (test code = 2214) 0.63 MG/DL eGFR (2020 CKD-EPI) (test 105 ML/MIN/1.73 code = 59471) CALC BUN/CREAT (test code = 21 RATIO [...] code = 2219) 33 U/L CBC W/AUTO [id number] 00:00:00 Test Item Value Reference Range Interpretation [...] NUCLEATED RBCS (test code = 0.00 K/UL 84255) CBC W/AUTO [id number] 00:00:00 Test Item Value Reference Range Interpretation [...] NUCLEATED RBCS (test code = 0.00 K/UL 84578) CBC W/AUTO [id number] 00:00:00 Test Item Value Reference Range Interpretation [...] NUCLEATED RBCS (test code = 0.00 K/UL 19158) COMPREHENSIVE METABOLIC [id number] 00:00:00 Test Item Value Reference Range Interpretation Comments GLUCOSE (test code = 2217) 100 MG/DL BUN (test code = 2208) 13 MG/DL CREATININE (test code = 2214) 0.63 MG/DL eGFR (2020 CKD-EPI) (test 105 ML/MIN/1.73 code = 10010) CALC BUN/CREAT (test code = 21 RATIO [...] code = 2219) 33 U/L COMPREHENSIVE METABOLIC [id number] 00:00:00 Test Item Value Reference Range Interpretation Comments GLUCOSE (test code = 2217) 100 MG/DL BUN (test code = 2208) 13 MG/DL CREATININE (test code = 2214) 0.63 MG/DL eGFR (2020 CKD-EPI) (test 105 ML/MIN/1.73 code = 49808) CALC BUN/CREAT (test code = 21 RATIO [...] code = 2219) 33 U/L CBC W/AUTO [id number] 00:00:00 Test Item Value Reference Range Interpretation [...] NUCLEATED RBCS (test code = 0.00 K/UL 96895) CBC W/AUTO [id number] 00:00:00 Test Item Value Reference Range Interpretation [...] NUCLEATED RBCS (test code = 0.00 K/UL 82510) CBC W/AUTO [id number] 00:00:00 Test Item Value Reference Range Interpretation [...] NUCLEATED RBCS (test code = 0.00 K/UL 66907) COMPREHENSIVE METABOLIC [id number] 00:00:00 Test Item Value Reference Range Interpretation Comments GLUCOSE (test code = 2217) 100 MG/DL BUN (test code = 2208) 13 MG/DL CREATININE (test code = 2214) 0.63 MG/DL eGFR (2020 CKD-EPI) (test 105 ML/MIN/1.73 code = 44221) CALC BUN/CREAT (test code = 21 RATIO [...] code = 2219) 33 U/L COMPREHENSIVE METABOLIC [id number] 00:00:00 Test Item Value Reference Range Interpretation Comments GLUCOSE (test code = 2217) 100 MG/DL BUN (test code = 2208) 13 MG/DL CREATININE (test code = 2214) 0.63 MG/DL eGFR (2020 CKD-EPI) (test 105 ML/MIN/1.73 code = 43989) CALC BUN/CREAT (test code = 21 RATIO [...] code = 2219) 33 U/L CBC W/AUTO [id number] 00:00:00 Test Item Value Reference Range Interpretation [...] code = 0.00 K/UL 63910) CBC W/AUTO [id number] 00:00:00 Test Item Value Reference Range Interpretation [...] NUCLEATED RBCS (test code = 0.00 K/UL 50894) CBC W/AUTO [id number] 00:00:00 Test Item Value Reference Range Interpretation [...] NUCLEATED RBCS (test code = 0.00 K/UL 90874) COMPREHENSIVE METABOLIC [id number] 00:00:00 Test Item Value Reference Range Interpretation Comments GLUCOSE (test code = 2217) 100 MG/DL BUN (test code = 2208) 13 MG/DL CREATININE (test code = 2214) 0.63 MG/DL eGFR (2020 CKD-EPI) (test 105 ML/MIN/1.73 code = 69299) CALC BUN/CREAT (test code = 21 RATIO [...] code = 2219) 33 U/L COMPREHENSIVE METABOLIC [id number] 00:00:00 Test Item Value Reference Range Interpretation Comments GLUCOSE (test code = 2217) 100 MG/DL BUN (test code = 2208) 13 MG/DL CREATININE (test code = 2214) 0.63 MG/DL eGFR (2020 CKD-EPI) (test 105 ML/MIN/1.73 code = 36635) CALC BUN/CREAT (test code = 21 RATIO [...] code = 2219) 33 U/L CBC W/AUTO [id number] 00:00:00 Test Item Value Reference Range Interpretation [...] NUCLEATED RBCS (test code = 0.00 K/UL 36068) CBC W/AUTO [id number] 00:00:00 Test Item Value Reference Range Interpretation [...] NUCLEATED RBCS (test code = 0.00 K/UL 64015) CBC W/AUTO [id number] 00:00:00 Test Item Value Reference Range Interpretation [...] NUCLEATED RBCS (test code = 0.00 K/UL 21327) COMPREHENSIVE METABOLIC [id number] 00:00:00 Test Item Value Reference Range Interpretation Comments GLUCOSE (test code = 2217) 100 MG/DL BUN (test code = 2208) 13 MG/DL CREATININE (test code = 2214) 0.63 MG/DL eGFR (2020 CKD-EPI) (test 105 ML/MIN/1.73 code = 92394) CALC BUN/CREAT (test code = 21 RATIO [...] code = 2219) 33 U/L COMPREHENSIVE METABOLIC [id number] 00:00:00 Test Item Value Reference Range Interpretation Comments GLUCOSE (test code = 2217) 100 MG/DL BUN (test code = 2208) 13 MG/DL CREATININE (test code = 2214) 0.63 MG/DL eGFR (2020 CKD-EPI) (test 105 ML/MIN/1.73 code = 80166) CALC BUN/CREAT (test code = 21 RATIO [...] code = 2219) 33 U/L CBC W/AUTO [id number] 00:00:00 Test Item Value Reference Range Interpretation [...] NUCLEATED RBCS (test code = 0.00 K/UL 88099) CBC W/AUTO [id number] 00:00:00 Test Item Value Reference Range Interpretation [...] NUCLEATED RBCS (test code = 0.00 K/UL 31073) CBC W/AUTO [id number] 00:00:00 Test Item Value Reference Range Interpretation [...] NUCLEATED RBCS (test code = 0.00 K/UL 13563) COMPREHENSIVE METABOLIC [id number] 00:00:00 Test Item Value Reference Range Interpretation Comments GLUCOSE (test code = 2217) 100 MG/DL BUN (test code = 2208) 13 MG/DL CREATININE (test code = 2214) 0.63 MG/DL eGFR (2020 CKD-EPI) (test 105 ML/MIN/1.73 code = 88933) CALC BUN/CREAT (test code = 21 RATIO [...] code = 2219) 33 U/L COMPREHENSIVE METABOLIC [id number] 00:00:00 Test Item Value Reference Range Interpretation Comments GLUCOSE (test code = 2217) 100 MG/DL BUN (test code = 2208) 13 MG/DL CREATININE (test code = 2214) 0.63 MG/DL eGFR (2020 CKD-EPI) (test 105 ML/MIN/1.73 code = 35122) CALC BUN/CREAT (test code = 21 RATIO [...] code = 2219) 33 U/L CBC W/AUTO [id number] 00:00:00 Test Item Value Reference Range Interpretation [...] NUCLEATED RBCS (test code = 0.00 K/UL 50209) CBC W/AUTO [id number] 00:00:00 Test Item Value Reference Range Interpretation [...] NUCLEATED RBCS (test code = 0.00 K/UL 04241) CBC W/AUTO [id number] 00:00:00 Test Item Value Reference Range Interpretation [...] NUCLEATED RBCS (test code = 0.00 K/UL 32234) CBC W/AUTO [id number] 00:00:00 Test Item Value Reference Range Interpretation [...] NUCLEATED RBCS (test code = 0.00 K/UL 30936) CBC W/AUTO [id number] 00:00:00 Test Item Value Reference Range Interpretation [...] NUCLEATED RBCS (test code = 0.00 K/UL 80645) CALCIUM, [id number] 11:34:01 Test Item Value Reference Range Interpretation Comments CALCIUM, IONIZED (test code = 6.01 MG/DL 4.70-5.90 H 81518) INTACT [id number] 08:00:45 Test Item Value Reference Range Interpretation Comments INTACT PTH (test code = 5005) 143 PG/ML 15-65 H TSH, THIRD [id number] 06:20:18 Test Item Value Reference Range Interpretation Comments TSH, THIRD GENERATION (test code 3.840 UIU/ML 0.400-4.100 = 2821) [id number] 04:33:24 Test Item Value Reference Range Interpretation Comments LITHIUM (test code 0.54 MEQ/L 0.60-1.20 L UNLESS O THERWISE = 2038) INDICATED, ALL TESTING PERFORMED [facility] [address] [place] [address] 3723 4 LABORATORY DIRE CTOR: TANNER HOPKINS M.D. CLIA NUMBER [id number] [place] [id number] COMPREHENSIVE METABOLIC [id number] 04:08:07 Test Item Value Reference Range Interpretation Comments GLUCOSE (test code = 90 MG/DL 70-99 2216) BUN (test code = 13 MG/DL 6-20 2207) CREATININE (test 0.74 MG/DL 0.60-1.30 code = 221) eGFR (2020 CKD-EPI) 97 ML/MIN/1.73 >60 (test code = 89724) CALC BUN/CREAT (test 18 RATIO 6-28 code = 2235) SODIUM (test code = 142 MEQ/L 403-651 0087) POTASSIUM (test code 5.0 MEQ/L 3.5-5.4 = 2227) CHLORIDE (test code 107 MEQ/L 95-107 = 2214) CARBON DIOXIDE (test 22 MEQ/L 19-31 code = 2205) CALCIUM (test code = 11.0 MG/DL 8.5-10.5 H 2208) PROTEIN, TOTAL (test 6.7 G/DL 6.1-8.3 code = 2228) ALBUMIN (test code = 4.2 G/DL 3.5-5.2 2200) CALC GLOBULIN (test 2.5 G/DL 1.9-3.7 code = 224) CALC A/G RATIO (test 1.7 RATIO 1.0-2.6 code = 223) BILIRUBIN, TOTAL 0.5 MG/DL See_Comment [Automated message] (test code = 220) The syste m which generated this result transmit alex reference range : <=1.2. The refe rence range was not u sed to interpret th is result as normal/abnormal . ALKALINE PHOSPHATASE 94 U/L 40-133 (test code = 220) AST (test code = 24 U/L 9-40 2217) ALT (test code = 38 U/L 5-40 2218) LIPID [id number] 04:08:07 Test Item Value Reference Range Interpretation [...] MOREINFORMATION , SEE CLIENT ANNOUNCE MENT AT [email or web address] [email or web address] RATIO LDL/HDL 2.37 RATIO <3.22 (test code = 2238) COMPREHENSIVE METABOLIC [id number] 00:00:00 Test Item Value Reference Range Interpretation Comments GLUCOSE (test code = 2217) 90 MG/DL BUN (test code = 2208) 13 MG/DL CREATININE (test code = 2214) 0.74 MG/DL eGFR (2020 CKD-EPI) (test code 97 ML/MIN/1.73 = 95761) CALC BUN/CREAT (test code = 18 RATIO [...] ALT (test code = 2219) 38 U/L [id number] 00:00:00 Test Item Value Reference Range Interpretation Comments TSH, THIRD GENERATION (test code 3.840 UIU/ML = 2821) COMPREHENSIVE METABOLIC [id number] 00:00:00 Test Item Value Reference Range Interpretation Comments GLUCOSE (test code = 2217) 90 MG/DL BUN (test code = 2208) 13 MG/DL CREATININE (test code = 2214) 0.74 MG/DL eGFR (2020 CKD-EPI) (test code 97 ML/MIN/1.73 = 06171) CALC BUN/CREAT (test code = 18 RATIO [...] code = 2219) 38 U/L COMPREHENSIVE METABOLIC [id number] 00:00:00 Test Item Value Reference Range Interpretation Comments GLUCOSE (test code = 2217) 90 MG/DL BUN (test code = 2208) 13 MG/DL CREATININE (test code = 2214) 0.74 MG/DL eGFR (2020 CKD-EPI) (test code 97 ML/MIN/1.73 = 84652) CALC BUN/CREAT (test code = 18 RATIO [...] (test code = 2219) 38 U/L LIPID [id number] 00:00:00 Test Item Value Reference Range Interpretation Comments CHOLESTEROL (test code = 2210) 123 MG/DL TRIGLYCERIDES (test code = 2232) 137 MG/DL HDL CHOLESTEROL (test code = 2220) 30 MG/DL CALC LDL CHOL (test code = 2237) 71 MG/DL RISK RATIO LDL/HDL (test code = 2.37 RATIO 2238) LIPID [id number] 00:00:00 Test Item Value Reference Range Interpretation Comments CHOLESTEROL (test code = 2210) 123 MG/DL TRIGLYCERIDES (test code = 2232) 137 MG/DL HDL CHOLESTEROL (test code = 2220) 30 MG/DL CALC LDL CHOL (test code = 2237) 71 MG/DL RISK RATIO LDL/HDL (test code = 2.37 RATIO 2238) INTACT [id number] 00:00:00 Test Item Value Reference Range Interpretation Comments INTACT PTH (test code = 5005) 143 PG/ML INTACT [id number] 00:00:00 Test Item Value Reference Range Interpretation Comments INTACT PTH (test code = 5005) 143 PG/ML INTACT [id number] 00:00:00 Test Item Value Reference Range Interpretation Comments INTACT PTH (test code = 5005) 143 PG/ML IONIZED CALCIUM, [id number] 00:00:00 Test Item Value Reference Range Interpretation Comments CALCIUM, IONIZED (test code = 6.01 MG/DL 13064) IONIZED CALCIUM, [id number] 00:00:00 Test Item Value Reference Range Interpretation Comments CALCIUM, IONIZED (test code = 6.01 MG/DL 23653) [id number] 00:00:00 Test Item Value Reference Range Interpretation Comments LITHIUM (test code = 2039) 0.54 MEQ/L [id number] 00:00:00 Test Item Value Reference Range Interpretation Comments LITHIUM (test code = 2039) 0.54 MEQ/L [id number] 00:00:00 Test Item Value Reference Range Interpretation Comments LITHIUM (test code = 2039) 0.54 MEQ/L LIPID [id number] 00:00:00 Test Item Value Reference Range Interpretation Comments CHOLESTEROL (test code = 2210) 123 MG/DL TRIGLYCERIDES (test code = 2232) 137 MG/DL HDL CHOLESTEROL (test code = 2220) 30 MG/DL CALC LDL CHOL (test code = 2237) 71 MG/DL RISK RATIO LDL/HDL (test code = 2.37 RATIO 2238) INTACT [id number] 00:00:00 Test Item Value Reference Range Interpretation Comments INTACT PTH (test code = 5005) 143 PG/ML INTACT [id number] 00:00:00 Test Item Value Reference Range Interpretation Comments INTACT PTH (test code = 5005) 143 PG/ML IONIZED CALCIUM, [id number] 00:00:00 Test Item Value Reference Range Interpretation Comments CALCIUM, IONIZED (test code = 6.01 MG/DL 60720) [id number] 00:00:00 Test Item Value Reference Range Interpretation Comments TSH, THIRD GENERATION (test code 3.840 UIU/ML = 2821) [id number] 00:00:00 Test Item Value Reference Range Interpretation Comments LITHIUM (test code = 2039) 0.54 MEQ/L [id number] 00:00:00 Test Item Value Reference Range Interpretation Comments LITHIUM (test code = 2039) 0.54 MEQ/L [id number] 00:00:00 Test Item Value Reference Range Interpretation Comments TSH, THIRD GENERATION (test code 3.840 UIU/ML = 2821) [id number] 00:00:00 Test Item Value Reference Range Interpretation Comments TSH, THIRD GENERATION (test code 3.840 UIU/ML = 2821) COMPREHENSIVE METABOLIC [id number] 00:00:00 Test Item Value Reference Range Interpretation Comments GLUCOSE (test code = 2217) 90 MG/DL BUN (test code = 2208) 13 MG/DL CREATININE (test code = 2214) 0.74 MG/DL eGFR (2020 CKD-EPI) (test code 97 ML/MIN/1.73 = 98990) CALC BUN/CREAT (test code = 18 RATIO 5) SODIUM (test code = 2231) 142 MEQ/L [...] = 0.5 MG/DL 2207) ALKALINE PHOSPHATASE (test 94 U/L code = 2204) AST (test code = 2218) 24 U/L ALT (test code = 2219) 38 U/L COMPREHENSIVE METABOLIC [id number] 00:00:00 Test Item Value Reference Range Interpretation Comments GLUCOSE (test code = 2217) 90 MG/DL BUN (test code = 2208) 13 MG/DL CREATININE (test code = 2214) 0.74 MG/DL eGFR (2020 CKD-EPI) (test code 97 ML/MIN/1.73 = 72262) CALC BUN/CREAT (test code = 18 RATIO [...] (test code = 2219) 38 U/L LIPID [id number] 00:00:00 Test Item Value Reference Range Interpretation Comments CHOLESTEROL (test code = 2210) 123 MG/DL TRIGLYCERIDES (test code = 2232) 137 MG/DL HDL CHOLESTEROL (test code = 2220) 30 MG/DL CALC LDL CHOL (test code = 2237) 71 MG/DL RISK RATIO LDL/HDL (test code = 2.37 RATIO 2238) LIPID [id number] 00:00:00 Test Item Value Reference Range Interpretation Comments CHOLESTEROL (test code = 2210) 123 MG/DL TRIGLYCERIDES (test code = 2232) 137 MG/DL HDL CHOLESTEROL (test code = 2220) 30 MG/DL CALC LDL CHOL (test code = 2237) 71 MG/DL RISK RATIO LDL/HDL (test code = 2.37 RATIO 2238) INTACT [id number] 00:00:00 Test Item Value Reference Range Interpretation Comments INTACT PTH (test code = 5005) 143 PG/ML INTACT [id number] 00:00:00 Test Item Value Reference Range Interpretation Comments INTACT PTH (test code = 5005) 143 PG/ML INTACT [id number] 00:00:00 Test Item Value Reference Range Interpretation Comments INTACT PTH (test code = 5005) 143 PG/ML IONIZED CALCIUM, [id number] 00:00:00 Test Item Value Reference Range Interpretation Comments CALCIUM, IONIZED (test code = 6.01 MG/DL 97115) IONIZED CALCIUM, [id number] 00:00:00 Test Item Value Reference Range Interpretation Comments CALCIUM, IONIZED (test code = 6.01 MG/DL 45770) [id number] 00:00:00 Test Item Value Reference Range Interpretation Comments LITHIUM (test code = 2039) 0.54 MEQ/L [id number] 00:00:00 Test Item Value Reference Range Interpretation Comments LITHIUM (test code = 2039) 0.54 MEQ/L [id number] 00:00:00 Test Item Value Reference Range Interpretation Comments LITHIUM (test code = 2039) 0.54 MEQ/L [id number] 00:00:00 Test Item Value Reference Range Interpretation Comments TSH, THIRD GENERATION (test code 3.840 UIU/ML = 2821) [id number] 00:00:00 Test Item Value Reference Range Interpretation Comments TSH, THIRD GENERATION (test code 3.840 UIU/ML = 2821) [id number] 00:00:00 Test Item Value Reference Range Interpretation Comments TSH, THIRD GENERATION (test code 3.840 UIU/ML = 2821) COMPREHENSIVE METABOLIC [id number] 00:00:00 Test Item Value Reference Range Interpretation Comments GLUCOSE (test code = 2217) 90 MG/DL BUN (test code = 2208) 13 MG/DL CREATININE (test code = 2214) 0.74 MG/DL eGFR (2020 CKD-EPI) (test code 97 ML/MIN/1.73 = 01616) CALC BUN/CREAT (test code = 18 RATIO [...] code = 2219) 38 U/L COMPREHENSIVE METABOLIC [id number] 00:00:00 Test Item Value Reference Range Interpretation Comments GLUCOSE (test code = 2217) 90 MG/DL BUN (test code = 2208) 13 MG/DL CREATININE (test code = 2214) 0.74 MG/DL eGFR (2020 CKD-EPI) (test code 97 ML/MIN/1.73 = 56898) CALC BUN/CREAT (test code = 18 RATIO [...] = 0.5 MG/DL 2207) ALKALINE PHOSPHATASE (test 94 U/L code = 2204) AST (test code = 2218) 24 U/L ALT (test code = 2219) 38 U/L LIPID [id number] 00:00:00 Test Item Value Reference Range Interpretation Comments CHOLESTEROL (test code = 2210) 123 MG/DL TRIGLYCERIDES (test code = 2232) 137 MG/DL HDL CHOLESTEROL (test code = 2220) 30 MG/DL CALC LDL CHOL (test code = 2237) 71 MG/DL RISK RATIO LDL/HDL (test code = 2.37 RATIO 2238) LIPID [id number] 00:00:00 Test Item Value Reference Range Interpretation Comments CHOLESTEROL (test code = 2210) 123 MG/DL TRIGLYCERIDES (test code = 2232) 137 MG/DL HDL CHOLESTEROL (test code = 2220) 30 MG/DL CALC LDL CHOL (test code = 2237) 71 MG/DL RISK RATIO LDL/HDL (test code = 2.37 RATIO 2238) INTACT [id number] 00:00:00 Test Item Value Reference Range Interpretation Comments INTACT PTH (test code = 5005) 143 PG/ML INTACT [id number] 00:00:00 Test Item Value Reference Range Interpretation Comments INTACT PTH (test code = 5005) 143 PG/ML INTACT [id number] 00:00:00 Test Item Value Reference Range Interpretation Comments INTACT PTH (test code = 5005) 143 PG/ML IONIZED CALCIUM, [id number] 00:00:00 Test Item Value Reference Range Interpretation Comments CALCIUM, IONIZED (test code = 6.01 MG/DL 75946) IONIZED CALCIUM, [id number] 00:00:00 Test Item Value Reference Range Interpretation Comments CALCIUM, IONIZED (test code = 6.01 MG/DL 00790) [id number] 00:00:00 Test Item Value Reference Range Interpretation Comments LITHIUM (test code = 2039) 0.54 MEQ/L [id number] 00:00:00 Test Item Value Reference Range Interpretation Comments LITHIUM (test code = 2039) 0.54 MEQ/L [id number] 00:00:00 Test Item Value Reference Range Interpretation Comments LITHIUM (test code = 2039) 0.54 MEQ/L [id number] 00:00:00 Test Item Value Reference Range Interpretation Comments TSH, THIRD GENERATION (test code 3.840 UIU/ML = 2821) [id number] 00:00:00 Test Item Value Reference Range Interpretation Comments TSH, THIRD GENERATION (test code 3.840 UIU/ML = 2821) [id number] 00:00:00 Test Item Value Reference Range Interpretation Comments TSH, THIRD GENERATION (test code 3.840 UIU/ML = 2821) COMPREHENSIVE METABOLIC [id number] 00:00:00 Test Item Value Reference Range Interpretation Comments GLUCOSE (test code = 2217) 90 MG/DL BUN (test code = 2208) 13 MG/DL CREATININE (test code = 2214) 0.74 MG/DL eGFR (2020 CKD-EPI) (test code 97 ML/MIN/1.73 = 09393) CALC BUN/CREAT (test code = 18 RATIO [...] code = 2219) 38 U/L COMPREHENSIVE METABOLIC [id number] 00:00:00 Test Item Value Reference Range Interpretation Comments GLUCOSE (test code = 2217) 90 MG/DL BUN (test code = 2208) 13 MG/DL CREATININE (test code = 2214) 0.74 MG/DL eGFR (2020 CKD-EPI) (test code 97 ML/MIN/1.73 = 89798) CALC BUN/CREAT (test code = 18 RATIO [...] (test code = 2219) 38 U/L LIPID [id number] 00:00:00 Test Item Value Reference Range Interpretation Comments CHOLESTEROL (test code = 2210) 123 MG/DL TRIGLYCERIDES (test code = 2232) 137 MG/DL HDL CHOLESTEROL (test code = 2220) 30 MG/DL CALC LDL CHOL (test code = 2237) 71 MG/DL RISK RATIO LDL/HDL (test code = 2.37 RATIO 2238) LIPID [id number] 00:00:00 Test Item Value Reference Range Interpretation Comments CHOLESTEROL (test code = 2210) 123 MG/DL TRIGLYCERIDES (test code = 2232) 137 MG/DL HDL CHOLESTEROL (test code = 2220) 30 MG/DL CALC LDL CHOL (test code = 2237) 71 MG/DL RISK RATIO LDL/HDL (test code = 2.37 RATIO 2238) INTACT [id number] 00:00:00 Test Item Value Reference Range Interpretation Comments INTACT PTH (test code = 5005) 143 PG/ML INTACT [id number] 00:00:00 Test Item Value Reference Range Interpretation Comments INTACT PTH (test code = 5005) 143 PG/ML INTACT [id number] 00:00:00 Test Item Value Reference Range Interpretation Comments INTACT PTH (test code = 5005) 143 PG/ML IONIZED CALCIUM, [id number] 00:00:00 Test Item Value Reference Range Interpretation Comments CALCIUM, IONIZED (test code = 6.01 MG/DL 43210) IONIZED CALCIUM, [id number] 00:00:00 Test Item Value Reference Range Interpretation Comments CALCIUM, IONIZED (test code = 6.01 MG/DL 18933) [id number] 00:00:00 Test Item Value Reference Range Interpretation Comments LITHIUM (test code = 2039) 0.54 MEQ/L [id number] 00:00:00 Test Item Value Reference Range Interpretation Comments LITHIUM (test code = 2039) 0.54 MEQ/L [id number] 00:00:00 Test Item Value Reference Range Interpretation Comments LITHIUM (test code = 2039) 0.54 MEQ/L [id number] 00:00:00 Test Item Value Reference Range Interpretation Comments TSH, THIRD GENERATION (test code 3.840 UIU/ML = 2821) [id number] 00:00:00 Test Item Value Reference Range Interpretation Comments TSH, THIRD GENERATION (test code 3.840 UIU/ML = 2821) [id number] 00:00:00 Test Item Value Reference Range Interpretation Comments TSH, THIRD GENERATION (test code 3.840 UIU/ML = 2821) COMPREHENSIVE METABOLIC [id number] 00:00:00 Test Item Value Reference Range Interpretation Comments GLUCOSE (test code = 2217) 90 MG/DL BUN (test code = 2208) 13 MG/DL CREATININE (test code = 2214) 0.74 MG/DL eGFR (2020 CKD-EPI) (test code 97 ML/MIN/1.73 = 23882) CALC BUN/CREAT (test code = 18 RATIO [...] code = 2219) 38 U/L COMPREHENSIVE METABOLIC [id number] 00:00:00 Test Item Value Reference Range Interpretation Comments GLUCOSE (test code = 2217) 90 MG/DL BUN (test code = 2208) 13 MG/DL CREATININE (test code = 2214) 0.74 MG/DL eGFR (2020 CKD-EPI) (test code 97 ML/MIN/1.73 = 06672) CALC BUN/CREAT (test code = 18 RATIO [...] (test code = 2219) 38 U/L LIPID [id number] 00:00:00 Test Item Value Reference Range Interpretation Comments CHOLESTEROL (test code = 2210) 123 MG/DL TRIGLYCERIDES (test code = 2232) 137 MG/DL HDL CHOLESTEROL (test code = 2220) 30 MG/DL CALC LDL CHOL (test code = 2237) 71 MG/DL RISK RATIO LDL/HDL (test code = 2.37 RATIO 2238) LIPID [id number] 00:00:00 Test Item Value Reference Range Interpretation Comments CHOLESTEROL (test code = 2210) 123 MG/DL TRIGLYCERIDES (test code = 2232) 137 MG/DL HDL CHOLESTEROL (test code = 2220) 30 MG/DL CALC LDL CHOL (test code = 2237) 71 MG/DL RISK RATIO LDL/HDL (test code = 2.37 RATIO 2238) INTACT [id number] 00:00:00 Test Item Value Reference Range Interpretation Comments INTACT PTH (test code = 5005) 143 PG/ML INTACT [id number] 00:00:00 Test Item Value Reference Range Interpretation Comments INTACT PTH (test code = 5005) 143 PG/ML INTACT [id number] 00:00:00 Test Item Value Reference Range Interpretation Comments INTACT PTH (test code = 5005) 143 PG/ML IONIZED CALCIUM, [id number] 00:00:00 Test Item Value Reference Range Interpretation Comments CALCIUM, IONIZED (test code = 6.01 MG/DL 93522) IONIZED CALCIUM, [id number] 00:00:00 Test Item Value Reference Range Interpretation Comments CALCIUM, IONIZED (test code = 6.01 MG/DL 81448) [id number] 00:00:00 Test Item Value Reference Range Interpretation Comments LITHIUM (test code = 2039) 0.54 MEQ/L [id number] 00:00:00 Test Item Value Reference Range Interpretation Comments LITHIUM (test code = 2039) 0.54 MEQ/L [id number] 00:00:00 Test Item Value Reference Range Interpretation Comments LITHIUM (test code = 203) 0.54 MEQ/L [id number] 00:00:00 Test Item Value Reference Range Interpretation Comments TSH, THIRD GENERATION (test code 3.840 UIU/ML = 2821) [id number] 00:00:00 Test Item Value Reference Range Interpretation Comments TSH, THIRD GENERATION (test code 3.840 UIU/ML = 2821) [id number] 00:00:00 Test Item Value Reference Range Interpretation Comments TSH, THIRD GENERATION (test code 3.840 UIU/ML = 2821) COMPREHENSIVE METABOLIC [id number] 00:00:00 Test Item Value Reference Range Interpretation Comments GLUCOSE (test code = 2217) 90 MG/DL BUN (test code = 2208) 13 MG/DL CREATININE (test code = 2214) 0.74 MG/DL eGFR (2020 CKD-EPI) (test code 97 ML/MIN/1.73 = 92327) CALC BUN/CREAT (test code = 18 RATIO [...] code = 2219) 38 U/L COMPREHENSIVE METABOLIC [id number] 00:00:00 Test Item Value Reference Range Interpretation Comments GLUCOSE (test code = 2217) 90 MG/DL BUN (test code = 2208) 13 MG/DL CREATININE (test code = 2214) 0.74 MG/DL eGFR (2020 CKD-EPI) (test code 97 ML/MIN/1.73 = 05077) CALC BUN/CREAT (test code = 18 RATIO [...] (test code = 2219) 38 U/L LIPID [id number] 00:00:00 Test Item Value Reference Range Interpretation Comments CHOLESTEROL (test code = 2210) 123 MG/DL TRIGLYCERIDES (test code = 2232) 137 MG/DL HDL CHOLESTEROL (test code = 2220) 30 MG/DL CALC LDL CHOL (test code = 2237) 71 MG/DL RISK RATIO LDL/HDL (test code = 2.37 RATIO 2238) LIPID [id number] 00:00:00 Test Item Value Reference Range Interpretation Comments CHOLESTEROL (test code = 2210) 123 MG/DL TRIGLYCERIDES (test code = 2232) 137 MG/DL HDL CHOLESTEROL (test code = 2220) 30 MG/DL CALC LDL CHOL (test code = 2237) 71 MG/DL RISK RATIO LDL/HDL (test code = 2.37 RATIO 2238) INTACT [id number] 00:00:00 Test Item Value Reference Range Interpretation Comments INTACT PTH (test code = 5005) 143 PG/ML INTACT [id number] 00:00:00 Test Item Value Reference Range Interpretation Comments INTACT PTH (test code = 5005) 143 PG/ML INTACT [id number] 00:00:00 Test Item Value Reference Range Interpretation Comments INTACT PTH (test code = 5005) 143 PG/ML IONIZED CALCIUM, [id number] 00:00:00 Test Item Value Reference Range Interpretation Comments CALCIUM, IONIZED (test code = 6.01 MG/DL 30619) IONIZED CALCIUM, [id number] 00:00:00 Test Item Value Reference Range Interpretation Comments CALCIUM, IONIZED (test code = 6.01 MG/DL 43907) [id number] 00:00:00 Test Item Value Reference Range Interpretation Comments LITHIUM (test code = 2039) 0.54 MEQ/L [id number] 00:00:00 Test Item Value Reference Range Interpretation Comments LITHIUM (test code = 2039) 0.54 MEQ/L [id number] 00:00:00 Test Item Value Reference Range Interpretation Comments LITHIUM (test code = 2039) 0.54 MEQ/L [id number] 00:00:00 Test Item Value Reference Range Interpretation Comments TSH, THIRD GENERATION (test code 3.840 UIU/ML = 2821) [id number] 00:00:00 Test Item Value Reference Range Interpretation Comments TSH, THIRD GENERATION (test code 3.840 UIU/ML = 2821) [id number] 00:00:00 Test Item Value Reference Range Interpretation Comments TSH, THIRD GENERATION (test code 3.840 UIU/ML = 2821) COMPREHENSIVE METABOLIC [id number] 00:00:00 Test Item Value Reference Range Interpretation Comments GLUCOSE (test code = 2217) 90 MG/DL BUN (test code = 2208) 13 MG/DL CREATININE (test code = 2214) 0.74 MG/DL eGFR (2020 CKD-EPI) (test code 97 ML/MIN/1.73 = 75844) CALC BUN/CREAT (test code = 18 RATIO 5) SODIUM (test code = 2231) 142 MEQ/L POTASSIUM (test code = 2228) 5.0 MEQ/L CHLORIDE (test code = 2215) 107 MEQ/L CARBON DIOXIDE (test code = 22 MEQ/L 2205) CALCIUM (test code = 2209) 11.0 MG/DL PROTEIN, TOTAL (test code = 6.7 G/DL 2229) ALBUMIN (test code = 2201) 4.2 G/DL CALC GLOBULIN (test code = 2.5 G/DL 2240) CALC A/G RATIO (test code = 1.7 RATIO 2234) BILIRUBIN, TOTAL (test code = 0.5 MG/DL 220) ALKALINE PHOSPHATASE (test 94 U/L code = 2204) AST (test code = 2218) 24 U/L ALT (test code = 2219) 38 U/L COMPREHENSIVE METABOLIC [id number] 00:00:00 Test Item Value Reference Range Interpretation Comments GLUCOSE (test code = 2217) 90 MG/DL BUN (test code = 2208) 13 MG/DL CREATININE (test code = 2214) 0.74 MG/DL eGFR (2020 CKD-EPI) (test code 97 ML/MIN/1.73 = 66794) CALC BUN/CREAT (test code = 18 RATIO [...] (test code = 2219) 38 U/L LIPID [id number] 00:00:00 Test Item Value Reference Range Interpretation Comments CHOLESTEROL (test code = 2210) 123 MG/DL TRIGLYCERIDES (test code = 2232) 137 MG/DL HDL CHOLESTEROL (test code = 2220) 30 MG/DL CALC LDL CHOL (test code = 2237) 71 MG/DL RISK RATIO LDL/HDL (test code = 2.37 RATIO 2238) LIPID [id number] 00:00:00 Test Item Value Reference Range Interpretation Comments CHOLESTEROL (test code = 2210) 123 MG/DL TRIGLYCERIDES (test code = 2232) 137 MG/DL HDL CHOLESTEROL (test code = 2220) 30 MG/DL CALC LDL CHOL (test code = 2237) 71 MG/DL RISK RATIO LDL/HDL (test code = 2.37 RATIO 2238) INTACT [id number] 00:00:00 Test Item Value Reference Range Interpretation Comments INTACT PTH (test code = 5005) 143 PG/ML INTACT [id number] 00:00:00 Test Item Value Reference Range Interpretation Comments INTACT PTH (test code = 5005) 143 PG/ML INTACT [id number] 00:00:00 Test Item Value Reference Range Interpretation Comments INTACT PTH (test code = 5005) 143 PG/ML IONIZED CALCIUM, [id number] 00:00:00 Test Item Value Reference Range Interpretation Comments CALCIUM, IONIZED (test code = 6.01 MG/DL 97746) IONIZED CALCIUM, [id number] 00:00:00 Test Item Value Reference Range Interpretation Comments CALCIUM, IONIZED (test code = 6.01 MG/DL ) [id number] 00:00:00 Test Item Value Reference Range Interpretation Comments LITHIUM (test code = 2039) 0.54 MEQ/L [id number] 00:00:00 Test Item Value Reference Range Interpretation Comments LITHIUM (test code = 2039) 0.54 MEQ/L [id number] 00:00:00 Test Item Value Reference Range Interpretation Comments LITHIUM (test code = 2039) 0.54 MEQ/L [id number] 00:00:00 Test Item Value Reference Range Interpretation Comments TSH, THIRD GENERATION (test code 3.840 UIU/ML = 2821) [id number] 00:00:00 Test Item Value Reference Range Interpretation Comments TSH, THIRD GENERATION (test code 3.840 UIU/ML = 2821) [id number] 00:00:00 Test Item Value Reference Range Interpretation Comments TSH, THIRD GENERATION (test code 3.840 UIU/ML = 2821) COMPREHENSIVE METABOLIC [id number] 00:00:00 Test Item Value Reference Range Interpretation Comments GLUCOSE (test code = 2217) 90 MG/DL BUN (test code = 2208) 13 MG/DL CREATININE (test code = 2214) 0.74 MG/DL eGFR (2020 CKD-EPI) (test code 97 ML/MIN/1.73 = 64637) CALC BUN/CREAT (test code = 18 RATIO [...] code = 2219) 38 U/L COMPREHENSIVE METABOLIC [id number] 00:00:00 Test Item Value Reference Range Interpretation Comments GLUCOSE (test code = 2217) 90 MG/DL BUN (test code = 2208) 13 MG/DL CREATININE (test code = 2214) 0.74 MG/DL eGFR (2020 CKD-EPI) (test code 97 ML/MIN/1.73 = 07003) CALC BUN/CREAT (test code = 18 RATIO 2235) SODIUM (test code = 2231) 142 MEQ/L POTASSIUM (test code = 2228) 5.0 MEQ/L CHLORIDE (test code = 2215) 107 MEQ/L CARBON DIOXIDE (test code = 22 MEQ/L 2206) CALCIUM (test code = 2209) 11.0 MG/DL PROTEIN, TOTAL (test code = 6.7 G/DL 2229) ALBUMIN (test code = 2201) 4.2 G/DL CALC GLOBULIN (test code = 2.5 G/DL 2240) CALC A/G RATIO (test code = 1.7 RATIO 2234) BILIRUBIN, TOTAL (test code = 0.5 MG/DL 2206) ALKALINE PHOSPHATASE (test 94 U/L code = 2204) AST (test code = 2218) 24 U/L ALT (test code = 2219) 38 U/L LIPID [id number] 00:00:00 Test Item Value Reference Range Interpretation Comments CHOLESTEROL (test code = 2210) 123 MG/DL TRIGLYCERIDES (test code = 2232) 137 MG/DL HDL CHOLESTEROL (test code = 2220) 30 MG/DL CALC LDL CHOL (test code = 2237) 71 MG/DL RISK RATIO LDL/HDL (test code = 2.37 RATIO 2238) LIPID [id number] 00:00:00 Test Item Value Reference Range Interpretation Comments CHOLESTEROL (test code = 2210) 123 MG/DL TRIGLYCERIDES (test code = 2232) 137 MG/DL HDL CHOLESTEROL (test code = 2220) 30 MG/DL CALC LDL CHOL (test code = 2237) 71 MG/DL RISK RATIO LDL/HDL (test code = 2.37 RATIO 2238) INTACT [id number] 00:00:00 Test Item Value Reference Range Interpretation Comments INTACT PTH (test code = 5005) 143 PG/ML INTACT [id number] 00:00:00 Test Item Value Reference Range Interpretation Comments INTACT PTH (test code = 5005) 143 PG/ML INTACT [id number] 00:00:00 Test Item Value Reference Range Interpretation Comments INTACT PTH (test code = 5005) 143 PG/ML IONIZED CALCIUM, [id number] 00:00:00 Test Item Value Reference Range Interpretation Comments CALCIUM, IONIZED (test code = 6.01 MG/DL 66466) IONIZED CALCIUM, [id number] 00:00:00 Test Item Value Reference Range Interpretation Comments CALCIUM, IONIZED (test code = 6.01 MG/DL 34292) [id number] 00:00:00 Test Item Value Reference Range Interpretation Comments LITHIUM (test code = 2039) 0.54 MEQ/L [id number] 00:00:00 Test Item Value Reference Range Interpretation Comments LITHIUM (test code = 2039) 0.54 MEQ/L [id number] 00:00:00 Test Item Value Reference Range Interpretation Comments LITHIUM (test code = 2039) 0.54 MEQ/L [id number] 00:00:00 Test Item Value Reference Range Interpretation Comments TSH, THIRD GENERATION (test code 3.840 UIU/ML = 2821) [id number] 00:00:00 Test Item Value Reference Range Interpretation Comments TSH, THIRD GENERATION (test code 3.840 UIU/ML = 2821) [id number] 00:00:00 Test Item Value Reference Range Interpretation Comments TSH, THIRD GENERATION (test code 3.840 UIU/ML = 2821) COMPREHENSIVE METABOLIC [id number] 00:00:00 Test Item Value Reference Range Interpretation Comments GLUCOSE (test code = 2217) 90 MG/DL BUN (test code = 2208) 13 MG/DL CREATININE (test code = 2214) 0.74 MG/DL eGFR (2020 CKD-EPI) (test code 97 ML/MIN/1.73 = 45737) CALC BUN/CREAT (test code = 18 RATIO [...] code = 2219) 38 U/L COMPREHENSIVE METABOLIC [id number] 00:00:00 Test Item Value Reference Range Interpretation Comments GLUCOSE (test code = 2217) 90 MG/DL BUN (test code = 2208) 13 MG/DL CREATININE (test code = 2214) 0.74 MG/DL eGFR (2020 CKD-EPI) (test code 97 ML/MIN/1.73 = 72936) CALC BUN/CREAT (test code = 18 RATIO [...] (test code = 2219) 38 U/L LIPID [id number] 00:00:00 Test Item Value Reference Range Interpretation Comments CHOLESTEROL (test code = 2210) 123 MG/DL TRIGLYCERIDES (test code = 2232) 137 MG/DL HDL CHOLESTEROL (test code = 2220) 30 MG/DL CALC LDL CHOL (test code = 2237) 71 MG/DL RISK RATIO LDL/HDL (test code = 2.37 RATIO 2238) LIPID [id number] 00:00:00 Test Item Value Reference Range Interpretation Comments CHOLESTEROL (test code = 2210) 123 MG/DL TRIGLYCERIDES (test code = 2232) 137 MG/DL HDL CHOLESTEROL (test code = 2220) 30 MG/DL CALC LDL CHOL (test code = 2237) 71 MG/DL RISK RATIO LDL/HDL (test code = 2.37 RATIO 2238) INTACT [id number] 00:00:00 Test Item Value Reference Range Interpretation Comments INTACT PTH (test code = 5005) 143 PG/ML INTACT [id number] 00:00:00 Test Item Value Reference Range Interpretation Comments INTACT PTH (test code = 5005) 143 PG/ML INTACT [id number] 00:00:00 Test Item Value Reference Range Interpretation Comments INTACT PTH (test code = 5005) 143 PG/ML IONIZED CALCIUM, [id number] 00:00:00 Test Item Value Reference Range Interpretation Comments CALCIUM, IONIZED (test code = 6.01 MG/DL 61660) IONIZED CALCIUM, [id number] 00:00:00 Test Item Value Reference Range Interpretation Comments CALCIUM, IONIZED (test code = 6.01 MG/DL 41041) [id number] 00:00:00 Test Item Value Reference Range Interpretation Comments LITHIUM (test code = 2039) 0.54 MEQ/L [id number] 00:00:00 Test Item Value Reference Range Interpretation Comments LITHIUM (test code = 2038) 0.54 MEQ/L [id number] 00:00:00 Test Item Value Reference Range Interpretation Comments LITHIUM (test code = 2038) 0.54 MEQ/L [id number] 00:00:00 Test Item Value Reference Range Interpretation Comments TSH, THIRD GENERATION (test code 3.840 UIU/ML = 2821) [id number] 00:00:00 Test Item Value Reference Range Interpretation Comments TSH, THIRD GENERATION (test code 3.840 UIU/ML = 2821) [id number] 00:00:00 Test Item Value Reference Range Interpretation Comments TSH, THIRD GENERATION (test code 3.840 UIU/ML = 2821) COMPREHENSIVE METABOLIC [id number] 00:00:00 Test Item Value Reference Range Interpretation Comments GLUCOSE (test code = 2217) 90 MG/DL BUN (test code = 2208) 13 MG/DL CREATININE (test code = 2214) 0.74 MG/DL eGFR (2020 CKD-EPI) (test code 97 ML/MIN/1.73 = 37663) CALC BUN/CREAT (test code = 18 RATIO [...] code = 2219) 38 U/L COMPREHENSIVE METABOLIC [id number] 00:00:00 Test Item Value Reference Range Interpretation Comments GLUCOSE (test code = 2217) 90 MG/DL BUN (test code = 2208) 13 MG/DL CREATININE (test code = 2214) 0.74 MG/DL eGFR (2020 CKD-EPI) (test code 97 ML/MIN/1.73 = 72783) CALC BUN/CREAT (test code = 18 RATIO [...] RATIO 223) BILIRUBIN, TOTAL (test code = 0.5 MG/DL 2206) ALKALINE PHOSPHATASE (test 94 U/L code = 2204) AST (test code = 2218) 24 U/L ALT (test code = 2219) 38 U/L LIPID [id number] 00:00:00 Test Item Value Reference Range Interpretation Comments CHOLESTEROL (test code = 2210) 123 MG/DL TRIGLYCERIDES (test code = 2232) 137 MG/DL HDL CHOLESTEROL (test code = 2220) 30 MG/DL CALC LDL CHOL (test code = 2237) 71 MG/DL RISK RATIO LDL/HDL (test code = 2.37 RATIO 2238) LIPID [id number] 00:00:00 Test Item Value Reference Range Interpretation Comments CHOLESTEROL (test code = 2210) 123 MG/DL TRIGLYCERIDES (test code = 2232) 137 MG/DL HDL CHOLESTEROL (test code = 2220) 30 MG/DL CALC LDL CHOL (test code = 2237) 71 MG/DL RISK RATIO LDL/HDL (test code = 2.37 RATIO 2238) INTACT [id number] 00:00:00 Test Item Value Reference Range Interpretation Comments INTACT PTH (test code = 5005) 143 PG/ML INTACT [id number] 00:00:00 Test Item Value Reference Range Interpretation Comments INTACT PTH (test code = 5005) 143 PG/ML INTACT [id number] 00:00:00 Test Item Value Reference Range Interpretation Comments INTACT PTH (test code = 5005) 143 PG/ML IONIZED CALCIUM, [id number] 00:00:00 Test Item Value Reference Range Interpretation Comments CALCIUM, IONIZED (test code = 6.01 MG/DL 46470) IONIZED CALCIUM, [id number] 00:00:00 Test Item Value Reference Range Interpretation Comments CALCIUM, IONIZED (test code = 6.01 MG/DL 28150) [id number] 00:00:00 Test Item Value Reference Range Interpretation Comments LITHIUM (test code = 2039) 0.54 MEQ/L [id number] 00:00:00 Test Item Value Reference Range Interpretation Comments LITHIUM (test code = 2039) 0.54 MEQ/L [id number] 00:00:00 Test Item Value Reference Range Interpretation Comments LITHIUM (test code = 2039) 0.54 MEQ/L [id number] 00:00:00 Test Item Value Reference Range Interpretation Comments TSH, THIRD GENERATION (test code 3.840 UIU/ML = 2821) [id number] 00:00:00 Test Item Value Reference Range Interpretation Comments TSH, THIRD GENERATION (test code 3.840 UIU/ML = 2821) [id number] 00:00:00 Test Item Value Reference Range Interpretation Comments TSH, THIRD GENERATION (test code 3.840 UIU/ML = 2821) COMPREHENSIVE METABOLIC [id number] 00:00:00 Test Item Value Reference Range Interpretation Comments GLUCOSE (test code = 2217) 90 MG/DL BUN (test code = 2208) 13 MG/DL CREATININE (test code = 2214) 0.74 MG/DL eGFR (2020 CKD-EPI) (test code 97 ML/MIN/1.73 = 57445) CALC BUN/CREAT (test code = 18 RATIO 5) SODIUM (test code = 2231) 142 MEQ/L [...] code = 2219) 38 U/L COMPREHENSIVE METABOLIC [id number] 00:00:00 Test Item Value Reference Range Interpretation Comments GLUCOSE (test code = 2217) 90 MG/DL BUN (test code = 2208) 13 MG/DL CREATININE (test code = 2214) 0.74 MG/DL eGFR (2020 CKD-EPI) (test code 97 ML/MIN/1.73 = 63464) CALC BUN/CREAT (test code = 18 RATIO [...] (test code = 2219) 38 U/L LIPID [id number] 00:00:00 Test Item Value Reference Range Interpretation Comments CHOLESTEROL (test code = 2210) 123 MG/DL TRIGLYCERIDES (test code = 2232) 137 MG/DL HDL CHOLESTEROL (test code = 2220) 30 MG/DL CALC LDL CHOL (test code = 2237) 71 MG/DL RISK RATIO LDL/HDL (test code = 2.37 RATIO 2238) LIPID [id number] 00:00:00 Test Item Value Reference Range Interpretation Comments CHOLESTEROL (test code = 2210) 123 MG/DL TRIGLYCERIDES (test code = 2232) 137 MG/DL HDL CHOLESTEROL (test code = 2220) 30 MG/DL CALC LDL CHOL (test code = 2237) 71 MG/DL RISK RATIO LDL/HDL (test code = 2.37 RATIO 2238) INTACT [id number] 00:00:00 Test Item Value Reference Range Interpretation Comments INTACT PTH (test code = 5005) 143 PG/ML INTACT [id number] 00:00:00 Test Item Value Reference Range Interpretation Comments INTACT PTH (test code = 5005) 143 PG/ML INTACT [id number] 00:00:00 Test Item Value Reference Range Interpretation Comments INTACT PTH (test code = 5005) 143 PG/ML IONIZED CALCIUM, [id number] 00:00:00 Test Item Value Reference Range Interpretation Comments CALCIUM, IONIZED (test code = 6.01 MG/DL 93014) IONIZED CALCIUM, [id number] 00:00:00 Test Item Value Reference Range Interpretation Comments CALCIUM, IONIZED (test code = 6.01 MG/DL 47572) [id number] 00:00:00 Test Item Value Reference Range Interpretation Comments LITHIUM (test code = 2039) 0.54 MEQ/L [id number] 00:00:00 Test Item Value Reference Range Interpretation Comments LITHIUM (test code = 2039) 0.54 MEQ/L [id number] 00:00:00 Test Item Value Reference Range Interpretation Comments LITHIUM (test code = 2039) 0.54 MEQ/L [id number] 00:00:00 Test Item Value Reference Range Interpretation Comments TSH, THIRD GENERATION (test code 3.840 UIU/ML = 2821) [id number] 00:00:00 Test Item Value Reference Range Interpretation Comments TSH, THIRD GENERATION (test code 3.840 UIU/ML = 2821) [id number] 00:00:00 Test Item Value Reference Range Interpretation Comments TSH, THIRD GENERATION (test code 3.840 UIU/ML = 2821) [id number] 00:00:00 Test Item Value Reference Range Interpretation Comments TSH, THIRD GENERATION (test code 3.840 UIU/ML = 2821) IONIZED CALCIUM, [id number] 00:00:00 Test Item Value Reference Range Interpretation Comments CALCIUM, IONIZED (test code = 6.08 MG/DL 42156) IONIZED CALCIUM, [id number] 00:00:00 Test Item Value Reference Range Interpretation Comments CALCIUM, IONIZED (test code = 6.08 MG/DL 61514) IONIZED CALCIUM, [id number] 00:00:00 Test Item Value Reference Range Interpretation Comments CALCIUM, IONIZED (test code = 6.08 MG/DL 63403) IONIZED CALCIUM, [id number] 00:00:00 Test Item Value Reference Range Interpretation Comments CALCIUM, IONIZED (test code = 6.08 MG/DL 64670) IONIZED CALCIUM, [id number] 00:00:00 Test Item Value Reference Range Interpretation Comments CALCIUM, IONIZED (test code = 6.08 MG/DL 94344) IONIZED CALCIUM, [id number] 00:00:00 Test Item Value Reference Range Interpretation Comments CALCIUM, IONIZED (test code = 6.08 MG/DL 58856) IONIZED CALCIUM, [id number] 00:00:00 Test Item Value Reference Range Interpretation Comments CALCIUM, IONIZED (test code = 6.08 MG/DL 56146) IONIZED CALCIUM, [id number] 00:00:00 Test Item Value Reference Range Interpretation Comments CALCIUM, IONIZED (test code = 6.08 MG/DL 77783) IONIZED CALCIUM, [id number] 00:00:00 Test Item Value Reference Range Interpretation Comments CALCIUM, IONIZED (test code = 6.08 MG/DL 50589) IONIZED CALCIUM, [id number] 00:00:00 Test Item Value Reference Range Interpretation Comments CALCIUM, IONIZED (test code = 6.08 MG/DL 80905) IONIZED CALCIUM, [id number] 00:00:00 Test Item Value Reference Range Interpretation Comments CALCIUM, IONIZED (test code = 6.08 MG/DL 79803) IONIZED CALCIUM, [id number] 00:00:00 Test Item Value Reference Range Interpretation Comments CALCIUM, IONIZED (test code = 6.08 MG/DL 77501) IONIZED CALCIUM, [id number] 00:00:00 Test Item Value Reference Range Interpretation Comments CALCIUM, IONIZED (test code = 6.08 MG/DL 10759) IONIZED CALCIUM, [id number] 00:00:00 Test Item Value Reference Range Interpretation Comments CALCIUM, IONIZED (test code = 6.08 MG/DL 48777) IONIZED CALCIUM, [id number] 00:00:00 Test Item Value Reference Range Interpretation Comments CALCIUM, IONIZED (test code = 6.08 MG/DL 97502) IONIZED CALCIUM, [id number] 00:00:00 Test Item Value Reference Range Interpretation Comments CALCIUM, IONIZED (test code = 6.08 MG/DL 33930) IONIZED CALCIUM, [id number] 00:00:00 Test Item Value Reference Range Interpretation Comments CALCIUM, IONIZED (test code = 6.08 MG/DL 16036) IONIZED CALCIUM, [id number] 00:00:00 Test Item Value Reference Range Interpretation Comments CALCIUM, IONIZED (test code = 6.08 MG/DL 46958) IONIZED CALCIUM, [id number] 00:00:00 Test Item Value Reference Range Interpretation Comments CALCIUM, IONIZED (test code = 6.08 MG/DL 12674) IONIZED CALCIUM, [id number] 00:00:00 Test Item Value Reference Range Interpretation Comments CALCIUM, IONIZED (test code = 6.08 MG/DL 15243) IONIZED CALCIUM, [id number] 00:00:00 Test Item Value Reference Range Interpretation Comments CALCIUM, IONIZED (test code = 6.08 MG/DL 78057) IONIZED CALCIUM, [id number] 00:00:00 Test Item Value Reference Range Interpretation Comments CALCIUM, IONIZED (test code = 6.08 MG/DL 32915) IONIZED CALCIUM, [id number] 00:00:00 Test Item Value Reference Range Interpretation Comments CALCIUM, IONIZED (test code = 6.08 MG/DL 27576) SARS-CoV-2 (COVID-19), RT-[id number] 10:52:51 Test Item Value Reference Interpretation Comments Range SARS-CoV-2 POSITIVE SEE NOTE A SARS-CoV-2 RNA INTERPRETATION DETECTEDPosit alek results (test code = 22776) are geovanna cative of the presence of [...] code = NOT SPECIFIED Note: [place] [address]) Marii Chip Margot l-Time RT-PCR. The exp ected result or refer ence range is NEGATIVE (No t Detected). For more information reg arding COVID-19 testin g to include clinicalinforma tion, methodology det ail, intended use, F DA authorization andrecommended fact sheets for [facility]well ents or healthcare prov iders, see [facility] Announc ement: SARS-CoV-2 (COV ID-19) by NAAT at URL bel ow (note,fact shee ts are provided by met hod given in report:[email or web address]:// [email or web address] [email or web address]/ Alternatively, see downloadable PD F fact sheet at:[email or web address]://[email or web address]. [email or web address] CR UNLESS OTHERWISE INDIC ATED, ALL TESTING PERFORM ED ATCL[facility]ICAL PATH [facility], [facility]. [address] [place] [address] LABORATORY DIRE CTOR: Elena HUTSON CLIA NUMBER [id number] CAP ACCREDITATION N O. [id number] SARS-CoV-2 (COVID-19) by RT-PCR (HIGH RISK)2021-04-12 00:00:00 Test Item Value Reference Range Interpretation Comments SARS-CoV-2 INTERPRETATION (test POSITIVE code = 07743) SOURCE (test code = 77631) NOT SPECIFIED SARS-CoV-2 (COVID-19) by RT-PCR (HIGH RISK)2021-04-12 00:00:00 Test Item Value Reference Range Interpretation Comments SARS-CoV-2 INTERPRETATION (test POSITIVE code = 69158) SOURCE (test code = 33509) NOT SPECIFIED SARS-CoV-2 (COVID-19) by RT-PCR (HIGH RISK)2021-04-12 00:00:00 Test Item Value Reference Range Interpretation Comments SARS-CoV-2 INTERPRETATION (test POSITIVE code = 07086) SOURCE (test code = 37254) NOT SPECIFIED SARS-CoV-2 (COVID-19) by RT-PCR (HIGH RISK)2021-04-12 00:00:00 Test Item Value Reference Range Interpretation Comments SARS-CoV-2 INTERPRETATION (test POSITIVE code = 29129) SOURCE (test code = 41224) NOT SPECIFIED SARS-CoV-2 (COVID-19) by RT-PCR (HIGH RISK)2021-04-12 00:00:00 Test Item Value Reference Range Interpretation Comments SARS-CoV-2 INTERPRETATION (test POSITIVE code = 57461) SOURCE (test code = 33361) NOT SPECIFIED SARS-CoV-2 (COVID-19) by RT-PCR (HIGH RISK)2021-04-12 00:00:00 Test Item Value Reference Range Interpretation Comments SARS-CoV-2 INTERPRETATION (test POSITIVE code = 66364) SOURCE (test code = 89073) NOT SPECIFIED SARS-CoV-2 (COVID-19) by RT-PCR (HIGH RISK)2021-04-12 00:00:00 Test Item Value Reference Range Interpretation Comments SARS-CoV-2 INTERPRETATION (test POSITIVE code = 59278) SOURCE (test code = 05182) NOT SPECIFIED SARS-CoV-2 (COVID-19) by RT-PCR (HIGH RISK)2021-04-12 00:00:00 Test Item Value Reference Range Interpretation Comments SARS-CoV-2 INTERPRETATION (test POSITIVE code = 56316) SOURCE (test code = 67128) NOT SPECIFIED SARS-CoV-2 (COVID-19) by RT-PCR (HIGH RISK)2021-04-12 00:00:00 Test Item Value Reference Range Interpretation Comments SARS-CoV-2 INTERPRETATION (test POSITIVE code = 74600) SOURCE (test code = 38882) NOT SPECIFIED SARS-CoV-2 (COVID-19) by RT-PCR (HIGH RISK)2021-04-12 00:00:00 Test Item Value Reference Range Interpretation Comments SARS-CoV-2 INTERPRETATION (test POSITIVE code = 22788) SOURCE (test code = 21110) NOT SPECIFIED SARS-CoV-2 (COVID-19) by RT-PCR (HIGH RISK)2021-04-12 00:00:00 Test Item Value Reference Range Interpretation Comments SARS-CoV-2 INTERPRETATION (test POSITIVE code = 62857) SOURCE (test code = 64159) NOT SPECIFIED SARS-CoV-2 (COVID-19) by RT-PCR (HIGH RISK)2021-04-12 00:00:00 Test Item Value Reference Range Interpretation Comments SARS-CoV-2 INTERPRETATION (test POSITIVE code = 89197) SOURCE (test code = 63378) NOT SPECIFIED SARS-CoV-2 (COVID-19) by RT-PCR (HIGH RISK)2021-04-12 00:00:00 Test Item Value Reference Range Interpretation Comments SARS-CoV-2 INTERPRETATION (test POSITIVE code = 06854) SOURCE (test code = 58186) NOT SPECIFIED SARS-CoV-2 (COVID-19) by RT-PCR (HIGH RISK)2021-04-12 00:00:00 Test Item Value Reference Range Interpretation Comments SARS-CoV-2 INTERPRETATION (test POSITIVE code = 00776) SOURCE (test code = 86997) NOT SPECIFIED SARS-CoV-2 (COVID-19) by RT-PCR (HIGH RISK)2021-04-12 00:00:00 Test Item Value Reference Range Interpretation Comments SARS-CoV-2 INTERPRETATION (test POSITIVE code = 50124) SOURCE (test code = 73879) NOT SPECIFIED SARS-CoV-2 (COVID-19) by RT-PCR (HIGH RISK)2021-04-12 00:00:00 Test Item Value Reference Range Interpretation Comments SARS-CoV-2 INTERPRETATION (test POSITIVE code = 90633) SOURCE (test code = 74486) NOT SPECIFIED SARS-CoV-2 (COVID-19) by RT-PCR (HIGH RISK)2021-04-12 00:00:00 Test Item Value Reference Range Interpretation Comments SARS-CoV-2 INTERPRETATION (test POSITIVE code = 37379) SOURCE (test code = 43532) NOT SPECIFIED SARS-CoV-2 (COVID-19) by RT-PCR (HIGH RISK)2021-04-12 00:00:00 Test Item Value Reference Range Interpretation Comments SARS-CoV-2 INTERPRETATION (test POSITIVE code = 49556) SOURCE (test code = 30715) NOT SPECIFIED SARS-CoV-2 (COVID-19) by RT-PCR (HIGH RISK)2021-04-12 00:00:00 Test Item Value Reference Range Interpretation Comments SARS-CoV-2 INTERPRETATION (test POSITIVE code = 07849) SOURCE (test code = 57570) NOT SPECIFIED SARS-CoV-2 (COVID-19) by RT-PCR (HIGH RISK)2021-04-12 00:00:00 Test Item Value Reference Range Interpretation Comments SARS-CoV-2 INTERPRETATION (test POSITIVE code = 46886) SOURCE (test code = 96048) NOT SPECIFIED SARS-CoV-2 (COVID-19) by RT-PCR (HIGH RISK)2021-04-12 00:00:00 Test Item Value Reference Range Interpretation Comments SARS-CoV-2 INTERPRETATION (test POSITIVE code = 55159) SOURCE (test code = 29153) NOT SPECIFIED SARS-CoV-2 (COVID-19) by RT-PCR (HIGH RISK)2021-04-12 00:00:00 Test Item Value Reference Range Interpretation Comments SARS-CoV-2 INTERPRETATION (test POSITIVE code = 93857) SOURCE (test code = 03751) NOT SPECIFIED SARS-CoV-2 (COVID-19) by RT-PCR (HIGH RISK)2021-04-12 00:00:00 Test Item Value Reference Range Interpretation Comments SARS-CoV-2 INTERPRETATION (test POSITIVE code = 87732) SOURCE (test code = 50821) NOT SPECIFIED LIPID [id number] 00:00:00 Test Item Value Reference Range Interpretation Comments CHOLESTEROL (test code = 2210) 173 MG/DL TRIGLYCERIDES (test code = 2232) 248 MG/DL HDL CHOLESTEROL (test code = 2220) 33 MG/DL CALC LDL CHOL (test code = 2237) 105 MG/DL RISK RATIO LDL/HDL (test code = 3.18 RATIO 2238) LIPID [id number] 00:00:00 Test Item Value Reference Range Interpretation Comments CHOLESTEROL (test code = 2210) 173 MG/DL TRIGLYCERIDES (test code = 2232) 248 MG/DL HDL CHOLESTEROL (test code = 2220) 33 MG/DL CALC LDL CHOL (test code = 2237) 105 MG/DL RISK RATIO LDL/HDL (test code = 3.18 RATIO 2238) LIPID [id number] 00:00:00 Test Item Value Reference Range Interpretation Comments CHOLESTEROL (test code = 2210) 173 MG/DL TRIGLYCERIDES (test code = 2232) 248 MG/DL HDL CHOLESTEROL (test code = 2220) 33 MG/DL CALC LDL CHOL (test code = 2237) 105 MG/DL RISK RATIO LDL/HDL (test code = 3.18 RATIO 2238) [id number] 00:00:00 Test Item Value Reference Range Interpretation Comments TSH, THIRD GENERATION (test code 1.470 UIU/ML = 2821) [id number] 00:00:00 Test Item Value Reference Range Interpretation Comments TSH, THIRD GENERATION (test code 1.470 UIU/ML = 2821) [id number] 00:00:00 Test Item Value Reference Range Interpretation Comments TSH, THIRD GENERATION (test code 1.470 UIU/ML = 2821) VITAMIN D, 25 [id number] 00:00:00 Test Item Value Reference Range Interpretation Comments VITAMIN D, 25 OH (test code = 4958) 20 NG/ML VITAMIN D, 25 [id number] 00:00:00 Test Item Value Reference Range Interpretation Comments VITAMIN D, 25 OH (test code = 4958) 20 NG/ML [id number] 00:00:00 Test Item Value Reference Range Interpretation Comments LITHIUM (test code = 2038) 0.39 MEQ/L [id number] 00:00:00 Test Item Value Reference Range Interpretation Comments LITHIUM (test code = 2038) 0.39 MEQ/L [id number] 00:00:00 Test Item Value Reference Range Interpretation Comments LITHIUM (test code = 2038) 0.39 MEQ/L [id number] 00:00:00 Test Item Value Reference Range Interpretation Comments TSH, THIRD GENERATION (test code 1.470 UIU/ML = 2821) [id number] 00:00:00 Test Item Value Reference Range Interpretation Comments TSH, THIRD GENERATION (test code 1.470 UIU/ML = 2821) VITAMIN D, 25 [id number] 00:00:00 Test Item Value Reference Range Interpretation Comments VITAMIN D, 25 OH (test code = 4958) 20 NG/ML [id number] 00:00:00 Test Item Value Reference Range Interpretation Comments LITHIUM (test code = 2038) 0.39 MEQ/L [id number] 00:00:00 Test Item Value Reference Range Interpretation Comments LITHIUM (test code = 2038) 0.39 MEQ/L COMPREHENSIVE METABOLIC [id number] 00:00:00 Test Item Value Reference Range Interpretation Comments GLUCOSE (test code = 2217) 109 MG/DL BUN (test code = 2208) 14 MG/DL CREATININE (test code = 2214) 0.64 MG/DL eGFR (2020 CKD-EPI) (test 106 ML/MIN/1.73 code = 30419) CALC BUN/CREAT (test code = 22 RATIO [...] code = 2219) 43 U/L COMPREHENSIVE METABOLIC [id number] 00:00:00 Test Item Value Reference Range Interpretation Comments GLUCOSE (test code = 2217) 109 MG/DL BUN (test code = 2208) 14 MG/DL CREATININE (test code = 2214) 0.64 MG/DL eGFR (2020 CKD-EPI) (test 106 ML/MIN/1.73 code = 30249) CALC BUN/CREAT (test code = 22 RATIO [...] (test code = 2219) 43 U/L LIPID [id number] 00:00:00 Test Item Value Reference Range Interpretation Comments CHOLESTEROL (test code = 2210) 173 MG/DL TRIGLYCERIDES (test code = 2232) 248 MG/DL HDL CHOLESTEROL (test code = 2220) 33 MG/DL CALC LDL CHOL (test code = 2237) 105 MG/DL RISK RATIO LDL/HDL (test code = 3.18 RATIO 2238) LIPID [id number] 00:00:00 Test Item Value Reference Range Interpretation Comments CHOLESTEROL (test code = 2210) 173 MG/DL TRIGLYCERIDES (test code = 2232) 248 MG/DL HDL CHOLESTEROL (test code = 2220) 33 MG/DL CALC LDL CHOL (test code = 2237) 105 MG/DL RISK RATIO LDL/HDL (test code = 3.18 RATIO 2238) [id number] 00:00:00 Test Item Value Reference Range Interpretation Comments TSH, THIRD GENERATION (test code 1.470 UIU/ML = 2821) [id number] 00:00:00 Test Item Value Reference Range Interpretation Comments TSH, THIRD GENERATION (test code 1.470 UIU/ML = 2821) [id number] 00:00:00 Test Item Value Reference Range Interpretation Comments TSH, THIRD GENERATION (test code 1.470 UIU/ML = 2821) VITAMIN D, 25 [id number] 00:00:00 Test Item Value Reference Range Interpretation Comments VITAMIN D, 25 OH (test code = 4958) 20 NG/ML VITAMIN D, 25 [id number] 00:00:00 Test Item Value Reference Range Interpretation Comments VITAMIN D, 25 OH (test code = 4958) 20 NG/ML [id number] 00:00:00 Test Item Value Reference Range Interpretation Comments LITHIUM (test code = 203) 0.39 MEQ/L [id number] 00:00:00 Test Item Value Reference Range Interpretation Comments LITHIUM (test code = 2039) 0.39 MEQ/L [id number] 00:00:00 Test Item Value Reference Range Interpretation Comments LITHIUM (test code = 2039) 0.39 MEQ/L COMPREHENSIVE METABOLIC [id number] 00:00:00 Test Item Value Reference Range Interpretation Comments GLUCOSE (test code = 2217) 109 MG/DL BUN (test code = 2208) 14 MG/DL CREATININE (test code = 2214) 0.64 MG/DL eGFR (2020 CKD-EPI) (test 106 ML/MIN/1.73 code = 42720) CALC BUN/CREAT (test code = 22 RATIO [...] code = 2219) 43 U/L COMPREHENSIVE METABOLIC [id number] 00:00:00 Test Item Value Reference Range Interpretation Comments GLUCOSE (test code = 2217) 109 MG/DL BUN (test code = 2208) 14 MG/DL CREATININE (test code = 2214) 0.64 MG/DL eGFR (2020 CKD-EPI) (test 106 ML/MIN/1.73 code = 68089) CALC BUN/CREAT (test code = 22 RATIO [...] (test code = 2219) 43 U/L LIPID [id number] 00:00:00 Test Item Value Reference Range Interpretation Comments CHOLESTEROL (test code = 2210) 173 MG/DL TRIGLYCERIDES (test code = 2232) 248 MG/DL HDL CHOLESTEROL (test code = 2220) 33 MG/DL CALC LDL CHOL (test code = 2237) 105 MG/DL RISK RATIO LDL/HDL (test code = 3.18 RATIO 2238) LIPID [id number] 00:00:00 Test Item Value Reference Range Interpretation Comments CHOLESTEROL (test code = 2210) 173 MG/DL TRIGLYCERIDES (test code = 2232) 248 MG/DL HDL CHOLESTEROL (test code = 2220) 33 MG/DL CALC LDL CHOL (test code = 2237) 105 MG/DL RISK RATIO LDL/HDL (test code = 3.18 RATIO 2238) [id number] 00:00:00 Test Item Value Reference Range Interpretation Comments TSH, THIRD GENERATION (test code 1.470 UIU/ML = 2821) [id number] 00:00:00 Test Item Value Reference Range Interpretation Comments TSH, THIRD GENERATION (test code 1.470 UIU/ML = 2821) [id number] 00:00:00 Test Item Value Reference Range Interpretation Comments TSH, THIRD GENERATION (test code 1.470 UIU/ML = 2821) VITAMIN D, 25 [id number] 00:00:00 Test Item Value Reference Range Interpretation Comments VITAMIN D, 25 OH (test code = 4958) 20 NG/ML VITAMIN D, 25 [id number] 00:00:00 Test Item Value Reference Range Interpretation Comments VITAMIN D, 25 OH (test code = 4958) 20 NG/ML [id number] 00:00:00 Test Item Value Reference Range Interpretation Comments LITHIUM (test code = 2038) 0.39 MEQ/L [id number] 00:00:00 Test Item Value Reference Range Interpretation Comments LITHIUM (test code = 2038) 0.39 MEQ/L [id number] 00:00:00 Test Item Value Reference Range Interpretation Comments LITHIUM (test code = 2038) 0.39 MEQ/L COMPREHENSIVE METABOLIC [id number] 00:00:00 Test Item Value Reference Range Interpretation Comments GLUCOSE (test code = 2217) 109 MG/DL BUN (test code = 2208) 14 MG/DL CREATININE (test code = 2214) 0.64 MG/DL eGFR (2020 CKD-EPI) (test 106 ML/MIN/1.73 code = 88685) CALC BUN/CREAT (test code = 22 RATIO [...] code = 2219) 43 U/L COMPREHENSIVE METABOLIC [id number] 00:00:00 Test Item Value Reference Range Interpretation Comments GLUCOSE (test code = 2217) 109 MG/DL BUN (test code = 2208) 14 MG/DL CREATININE (test code = 2214) 0.64 MG/DL eGFR (2020 CKD-EPI) (test 106 ML/MIN/1.73 code = 27695) CALC BUN/CREAT (test code = 22 RATIO [...] (test code = 2219) 43 U/L LIPID [id number] 00:00:00 Test Item Value Reference Range Interpretation Comments CHOLESTEROL (test code = 2210) 173 MG/DL TRIGLYCERIDES (test code = 2232) 248 MG/DL HDL CHOLESTEROL (test code = 2220) 33 MG/DL CALC LDL CHOL (test code = 2237) 105 MG/DL RISK RATIO LDL/HDL (test code = 3.18 RATIO 2238) LIPID [id number] 00:00:00 Test Item Value Reference Range Interpretation Comments CHOLESTEROL (test code = 2210) 173 MG/DL TRIGLYCERIDES (test code = 2232) 248 MG/DL HDL CHOLESTEROL (test code = 2220) 33 MG/DL CALC LDL CHOL (test code = 2237) 105 MG/DL RISK RATIO LDL/HDL (test code = 3.18 RATIO 2238) [id number] 00:00:00 Test Item Value Reference Range Interpretation Comments TSH, THIRD GENERATION (test code 1.470 UIU/ML = 2821) [id number] 00:00:00 Test Item Value Reference Range Interpretation Comments TSH, THIRD GENERATION (test code 1.470 UIU/ML = 2821) [id number] 00:00:00 Test Item Value Reference Range Interpretation Comments TSH, THIRD GENERATION (test code 1.470 UIU/ML = 2821) VITAMIN D, 25 [id number] 00:00:00 Test Item Value Reference Range Interpretation Comments VITAMIN D, 25 OH (test code = 4958) 20 NG/ML VITAMIN D, 25 [id number] 00:00:00 Test Item Value Reference Range Interpretation Comments VITAMIN D, 25 OH (test code = 4958) 20 NG/ML [id number] 00:00:00 Test Item Value Reference Range Interpretation Comments LITHIUM (test code = 2038) 0.39 MEQ/L [id number] 00:00:00 Test Item Value Reference Range Interpretation Comments LITHIUM (test code = 2039) 0.39 MEQ/L [id number] 00:00:00 Test Item Value Reference Range Interpretation Comments LITHIUM (test code = 2039) 0.39 MEQ/L COMPREHENSIVE METABOLIC [id number] 00:00:00 Test Item Value Reference Range Interpretation Comments GLUCOSE (test code = 2217) 109 MG/DL BUN (test code = 2208) 14 MG/DL CREATININE (test code = 2214) 0.64 MG/DL eGFR (2020 CKD-EPI) (test 106 ML/MIN/1.73 code = 78944) CALC BUN/CREAT (test code = 22 RATIO 2235) SODIUM (test code = 2231) 141 MEQ/L POTASSIUM (test code = 2228) 4.6 MEQ/L CHLORIDE (test code = 2215) 108 MEQ/L CARBON DIOXIDE (test code = 26 MEQ/L 6) CALCIUM (test code = 2209) 11.2 MG/DL [...] code = 2219) 43 U/L COMPREHENSIVE METABOLIC [id number] 00:00:00 Test Item Value Reference Range Interpretation Comments GLUCOSE (test code = 221) 109 MG/DL BUN (test code = 2208) 14 MG/DL CREATININE (test code = 2214) 0.64 MG/DL eGFR (2020 CKD-EPI) (test 106 ML/MIN/1.73 code = 91079) CALC BUN/CREAT (test code = 22 RATIO [...] (test code = 2219) 43 U/L LIPID [id number] 00:00:00 Test Item Value Reference Range Interpretation Comments CHOLESTEROL (test code = 2210) 173 MG/DL TRIGLYCERIDES (test code = 2232) 248 MG/DL HDL CHOLESTEROL (test code = 2220) 33 MG/DL CALC LDL CHOL (test code = 2237) 105 MG/DL RISK RATIO LDL/HDL (test code = 3.18 RATIO 2238) LIPID [id number] 00:00:00 Test Item Value Reference Range Interpretation Comments CHOLESTEROL (test code = 2210) 173 MG/DL TRIGLYCERIDES (test code = 2232) 248 MG/DL HDL CHOLESTEROL (test code = 2220) 33 MG/DL CALC LDL CHOL (test code = 2237) 105 MG/DL RISK RATIO LDL/HDL (test code = 3.18 RATIO 2238) [id number] 00:00:00 Test Item Value Reference Range Interpretation Comments TSH, THIRD GENERATION (test code 1.470 UIU/ML = 2821) [id number] 00:00:00 Test Item Value Reference Range Interpretation Comments TSH, THIRD GENERATION (test code 1.470 UIU/ML = 2821) [id number] 00:00:00 Test Item Value Reference Range Interpretation Comments TSH, THIRD GENERATION (test code 1.470 UIU/ML = 2821) VITAMIN D, 25 [id number] 00:00:00 Test Item Value Reference Range Interpretation Comments VITAMIN D, 25 OH (test code = 4958) 20 NG/ML VITAMIN D, 25 [id number] 00:00:00 Test Item Value Reference Range Interpretation Comments VITAMIN D, 25 OH (test code = 4958) 20 NG/ML [id number] 00:00:00 Test Item Value Reference Range Interpretation Comments LITHIUM (test code = 2039) 0.39 MEQ/L [id number] 00:00:00 Test Item Value Reference Range Interpretation Comments LITHIUM (test code = 2039) 0.39 MEQ/L [id number] 00:00:00 Test Item Value Reference Range Interpretation Comments LITHIUM (test code = 2039) 0.39 MEQ/L COMPREHENSIVE METABOLIC [id number] 00:00:00 Test Item Value Reference Range Interpretation Comments GLUCOSE (test code = 2217) 109 MG/DL BUN (test code = 2208) 14 MG/DL CREATININE (test code = 2214) 0.64 MG/DL eGFR (2020 CKD-EPI) (test 106 ML/MIN/1.73 code = 59332) CALC BUN/CREAT (test code = 22 RATIO [...] code = 2219) 43 U/L COMPREHENSIVE METABOLIC [id number] 00:00:00 Test Item Value Reference Range Interpretation Comments GLUCOSE (test code = 2217) 109 MG/DL BUN (test code = 2208) 14 MG/DL CREATININE (test code = 2214) 0.64 MG/DL eGFR (2020 CKD-EPI) (test 106 ML/MIN/1.73 code = 77890) CALC BUN/CREAT (test code = 22 RATIO [...] (test code = 2219) 43 U/L LIPID [id number] 00:00:00 Test Item Value Reference Range Interpretation Comments CHOLESTEROL (test code = 2210) 173 MG/DL TRIGLYCERIDES (test code = 2232) 248 MG/DL HDL CHOLESTEROL (test code = 2220) 33 MG/DL CALC LDL CHOL (test code = 2237) 105 MG/DL RISK RATIO LDL/HDL (test code = 3.18 RATIO 2238) LIPID [id number] 00:00:00 Test Item Value Reference Range Interpretation Comments CHOLESTEROL (test code = 2210) 173 MG/DL TRIGLYCERIDES (test code = 2232) 248 MG/DL HDL CHOLESTEROL (test code = 2220) 33 MG/DL CALC LDL CHOL (test code = 2237) 105 MG/DL RISK RATIO LDL/HDL (test code = 3.18 RATIO 2238) [id number] 00:00:00 Test Item Value Reference Range Interpretation Comments TSH, THIRD GENERATION (test code 1.470 UIU/ML = 2821) [id number] 00:00:00 Test Item Value Reference Range Interpretation Comments TSH, THIRD GENERATION (test code 1.470 UIU/ML = 2821) [id number] 00:00:00 Test Item Value Reference Range Interpretation Comments TSH, THIRD GENERATION (test code 1.470 UIU/ML = 2821) VITAMIN D, 25 [id number] 00:00:00 Test Item Value Reference Range Interpretation Comments VITAMIN D, 25 OH (test code = 4958) 20 NG/ML VITAMIN D, 25 [id number] 00:00:00 Test Item Value Reference Range Interpretation Comments VITAMIN D, 25 OH (test code = 4958) 20 NG/ML [id number] 00:00:00 Test Item Value Reference Range Interpretation Comments LITHIUM (test code = 203) 0.39 MEQ/L [id number] 00:00:00 Test Item Value Reference Range Interpretation Comments LITHIUM (test code = 2039) 0.39 MEQ/L [id number] 00:00:00 Test Item Value Reference Range Interpretation Comments LITHIUM (test code = 2039) 0.39 MEQ/L COMPREHENSIVE METABOLIC [id number] 00:00:00 Test Item Value Reference Range Interpretation Comments GLUCOSE (test code = 2217) 109 MG/DL BUN (test code = 2208) 14 MG/DL CREATININE (test code = 2214) 0.64 MG/DL eGFR (2020 CKD-EPI) (test 106 ML/MIN/1.73 code = 67058) CALC BUN/CREAT (test code = 22 RATIO [...] code = 2219) 43 U/L COMPREHENSIVE METABOLIC [id number] 00:00:00 Test Item Value Reference Range Interpretation Comments GLUCOSE (test code = 2217) 109 MG/DL BUN (test code = 2208) 14 MG/DL CREATININE (test code = 2214) 0.64 MG/DL eGFR (2020 CKD-EPI) (test 106 ML/MIN/1.73 code = 39250) CALC BUN/CREAT (test code = 22 RATIO [...] (test code = 2219) 43 U/L LIPID [id number] 00:00:00 Test Item Value Reference Range Interpretation Comments CHOLESTEROL (test code = 2210) 173 MG/DL TRIGLYCERIDES (test code = 2232) 248 MG/DL HDL CHOLESTEROL (test code = 2220) 33 MG/DL CALC LDL CHOL (test code = 2237) 105 MG/DL RISK RATIO LDL/HDL (test code = 3.18 RATIO 2238) LIPID [id number] 00:00:00 Test Item Value Reference Range Interpretation Comments CHOLESTEROL (test code = 2210) 173 MG/DL TRIGLYCERIDES (test code = 2232) 248 MG/DL HDL CHOLESTEROL (test code = 2220) 33 MG/DL CALC LDL CHOL (test code = 2237) 105 MG/DL RISK RATIO LDL/HDL (test code = 3.18 RATIO 2238) [id number] 00:00:00 Test Item Value Reference Range Interpretation Comments TSH, THIRD GENERATION (test code 1.470 UIU/ML = 2821) [id number] 00:00:00 Test Item Value Reference Range Interpretation Comments TSH, THIRD GENERATION (test code 1.470 UIU/ML = 2821) [id number] 00:00:00 Test Item Value Reference Range Interpretation Comments TSH, THIRD GENERATION (test code 1.470 UIU/ML = 2821) VITAMIN D, 25 [id number] 00:00:00 Test Item Value Reference Range Interpretation Comments VITAMIN D, 25 OH (test code = 4958) 20 NG/ML VITAMIN D, 25 [id number] 00:00:00 Test Item Value Reference Range Interpretation Comments VITAMIN D, 25 OH (test code = 4958) 20 NG/ML [id number] 00:00:00 Test Item Value Reference Range Interpretation Comments LITHIUM (test code = 2039) 0.39 MEQ/L [id number] 00:00:00 Test Item Value Reference Range Interpretation Comments LITHIUM (test code = 2039) 0.39 MEQ/L [id number] 00:00:00 Test Item Value Reference Range Interpretation Comments LITHIUM (test code = 2039) 0.39 MEQ/L COMPREHENSIVE METABOLIC [id number] 00:00:00 Test Item Value Reference Range Interpretation Comments GLUCOSE (test code = 2217) 109 MG/DL BUN (test code = 2208) 14 MG/DL CREATININE (test code = 2214) 0.64 MG/DL eGFR (2020 CKD-EPI) (test 106 ML/MIN/1.73 code = 81264) CALC BUN/CREAT (test code = 22 RATIO [...] code = 2219) 43 U/L COMPREHENSIVE METABOLIC [id number] 00:00:00 Test Item Value Reference Range Interpretation Comments GLUCOSE (test code = 2217) 109 MG/DL BUN (test code = 2208) 14 MG/DL CREATININE (test code = 2214) 0.64 MG/DL eGFR (2020 CKD-EPI) (test 106 ML/MIN/1.73 code = 79227) CALC BUN/CREAT (test code = 22 RATIO [...] (test code = 2219) 43 U/L LIPID [id number] 00:00:00 Test Item Value Reference Range Interpretation Comments CHOLESTEROL (test code = 2210) 173 MG/DL TRIGLYCERIDES (test code = 2232) 248 MG/DL HDL CHOLESTEROL (test code = 2220) 33 MG/DL CALC LDL CHOL (test code = 2237) 105 MG/DL RISK RATIO LDL/HDL (test code = 3.18 RATIO 2238) LIPID [id number] 00:00:00 Test Item Value Reference Range Interpretation Comments CHOLESTEROL (test code = 2210) 173 MG/DL TRIGLYCERIDES (test code = 2232) 248 MG/DL HDL CHOLESTEROL (test code = 2220) 33 MG/DL CALC LDL CHOL (test code = 2237) 105 MG/DL RISK RATIO LDL/HDL (test code = 3.18 RATIO 2238) [id number] 00:00:00 Test Item Value Reference Range Interpretation Comments TSH, THIRD GENERATION (test code 1.470 UIU/ML = 2821) [id number] 00:00:00 Test Item Value Reference Range Interpretation Comments TSH, THIRD GENERATION (test code 1.470 UIU/ML = 2821) [id number] 00:00:00 Test Item Value Reference Range Interpretation Comments TSH, THIRD GENERATION (test code 1.470 UIU/ML = 2821) VITAMIN D, 25 [id number] 00:00:00 Test Item Value Reference Range Interpretation Comments VITAMIN D, 25 OH (test code = 4958) 20 NG/ML VITAMIN D, 25 [id number] 00:00:00 Test Item Value Reference Range Interpretation Comments VITAMIN D, 25 OH (test code = 4958) 20 NG/ML [id number] 00:00:00 Test Item Value Reference Range Interpretation Comments LITHIUM (test code = 2039) 0.39 MEQ/L [id number] 00:00:00 Test Item Value Reference Range Interpretation Comments LITHIUM (test code = 2039) 0.39 MEQ/L [id number] 00:00:00 Test Item Value Reference Range Interpretation Comments LITHIUM (test code = 2039) 0.39 MEQ/L COMPREHENSIVE METABOLIC [id number] 00:00:00 Test Item Value Reference Range Interpretation Comments GLUCOSE (test code = 2217) 109 MG/DL BUN (test code = 2208) 14 MG/DL CREATININE (test code = 2214) 0.64 MG/DL eGFR (2020 CKD-EPI) (test 106 ML/MIN/1.73 code = 90243) CALC BUN/CREAT (test code = 22 RATIO [...] code = 2219) 43 U/L COMPREHENSIVE METABOLIC [id number] 00:00:00 Test Item Value Reference Range Interpretation Comments GLUCOSE (test code = 2217) 109 MG/DL BUN (test code = 2208) 14 MG/DL CREATININE (test code = 2214) 0.64 MG/DL eGFR (2020 CKD-EPI) (test 106 ML/MIN/1.73 code = 88050) CALC BUN/CREAT (test code = 22 RATIO [...] (test code = 2219) 43 U/L LIPID [id number] 00:00:00 Test Item Value Reference Range Interpretation Comments CHOLESTEROL (test code = 2210) 173 MG/DL TRIGLYCERIDES (test code = 2232) 248 MG/DL HDL CHOLESTEROL (test code = 2220) 33 MG/DL CALC LDL CHOL (test code = 2237) 105 MG/DL RISK RATIO LDL/HDL (test code = 3.18 RATIO 2238) LIPID [id number] 00:00:00 Test Item Value Reference Range Interpretation Comments CHOLESTEROL (test code = 2210) 173 MG/DL TRIGLYCERIDES (test code = 2232) 248 MG/DL HDL CHOLESTEROL (test code = 2220) 33 MG/DL CALC LDL CHOL (test code = 2237) 105 MG/DL RISK RATIO LDL/HDL (test code = 3.18 RATIO 2238) [id number] 00:00:00 Test Item Value Reference Range Interpretation Comments TSH, THIRD GENERATION (test code 1.470 UIU/ML = 2821) [id number] 00:00:00 Test Item Value Reference Range Interpretation Comments TSH, THIRD GENERATION (test code 1.470 UIU/ML = 2821) [id number] 00:00:00 Test Item Value Reference Range Interpretation Comments TSH, THIRD GENERATION (test code 1.470 UIU/ML = 2821) VITAMIN D, 25 [id number] 00:00:00 Test Item Value Reference Range Interpretation Comments VITAMIN D, 25 OH (test code = 4958) 20 NG/ML VITAMIN D, 25 [id number] 00:00:00 Test Item Value Reference Range Interpretation Comments VITAMIN D, 25 OH (test code = 4958) 20 NG/ML [id number] 00:00:00 Test Item Value Reference Range Interpretation Comments LITHIUM (test code = 2039) 0.39 MEQ/L [id number] 00:00:00 Test Item Value Reference Range Interpretation Comments LITHIUM (test code = 2039) 0.39 MEQ/L [id number] 00:00:00 Test Item Value Reference Range Interpretation Comments LITHIUM (test code = 2039) 0.39 MEQ/L COMPREHENSIVE METABOLIC [id number] 00:00:00 Test Item Value Reference Range Interpretation Comments GLUCOSE (test code = 2217) 109 MG/DL BUN (test code = 2208) 14 MG/DL CREATININE (test code = 2214) 0.64 MG/DL eGFR (2020 CKD-EPI) (test 106 ML/MIN/1.73 code = 35323) CALC BUN/CREAT (test code = 22 RATIO [...] code = 2219) 43 U/L COMPREHENSIVE METABOLIC [id number] 00:00:00 Test Item Value Reference Range Interpretation Comments GLUCOSE (test code = 2217) 109 MG/DL BUN (test code = 2208) 14 MG/DL CREATININE (test code = 2214) 0.64 MG/DL eGFR (2020 CKD-EPI) (test 106 ML/MIN/1.73 code = 82291) CALC BUN/CREAT (test code = 22 RATIO [...] (test code = 2219) 43 U/L LIPID [id number] 00:00:00 Test Item Value Reference Range Interpretation Comments CHOLESTEROL (test code = 2210) 173 MG/DL TRIGLYCERIDES (test code = 2232) 248 MG/DL HDL CHOLESTEROL (test code = 2220) 33 MG/DL CALC LDL CHOL (test code = 2237) 105 MG/DL RISK RATIO LDL/HDL (test code = 3.18 RATIO 2238) LIPID [id number] 00:00:00 Test Item Value Reference Range Interpretation Comments CHOLESTEROL (test code = 2210) 173 MG/DL TRIGLYCERIDES (test code = 2232) 248 MG/DL HDL CHOLESTEROL (test code = 2220) 33 MG/DL CALC LDL CHOL (test code = 2237) 105 MG/DL RISK RATIO LDL/HDL (test code = 3.18 RATIO 2238) [id number] 00:00:00 Test Item Value Reference Range Interpretation Comments TSH, THIRD GENERATION (test code 1.470 UIU/ML = 2821) [id number] 00:00:00 Test Item Value Reference Range Interpretation Comments TSH, THIRD GENERATION (test code 1.470 UIU/ML = 2821) [id number] 00:00:00 Test Item Value Reference Range Interpretation Comments TSH, THIRD GENERATION (test code 1.470 UIU/ML = 2821) VITAMIN D, 25 [id number] 00:00:00 Test Item Value Reference Range Interpretation Comments VITAMIN D, 25 OH (test code = 4958) 20 NG/ML VITAMIN D, 25 [id number] 00:00:00 Test Item Value Reference Range Interpretation Comments VITAMIN D, 25 OH (test code = 4958) 20 NG/ML [id number] 00:00:00 Test Item Value Reference Range Interpretation Comments LITHIUM (test code = 203) 0.39 MEQ/L [id number] 00:00:00 Test Item Value Reference Range Interpretation Comments LITHIUM (test code = 203) 0.39 MEQ/L [id number] 00:00:00 Test Item Value Reference Range Interpretation Comments LITHIUM (test code = 203) 0.39 MEQ/L COMPREHENSIVE METABOLIC [id number] 00:00:00 Test Item Value Reference Range Interpretation Comments GLUCOSE (test code = 2217) 109 MG/DL BUN (test code = 2208) 14 MG/DL CREATININE (test code = 2214) 0.64 MG/DL eGFR (2020 CKD-EPI) (test 106 ML/MIN/1.73 code = 24228) CALC BUN/CREAT (test code = 22 RATIO [...] code = 2219) 43 U/L COMPREHENSIVE METABOLIC [id number] 00:00:00 Test Item Value Reference Range Interpretation Comments GLUCOSE (test code = 2217) 109 MG/DL BUN (test code = 2208) 14 MG/DL CREATININE (test code = 2214) 0.64 MG/DL eGFR (2020 CKD-EPI) (test 106 ML/MIN/1.73 code = 35364) CALC BUN/CREAT (test code = 22 RATIO 2235) SODIUM (test code = 2231) 141 MEQ/L POTASSIUM (test code = 2228) 4.6 MEQ/L CHLORIDE (test code = 2215) 108 MEQ/L CARBON DIOXIDE (test code = 26 MEQ/L 6) CALCIUM (test code = 2209) 11.2 MG/DL PROTEIN, TOTAL (test code = 6.7 G/DL 2229) ALBUMIN (test code = 2201) 4.2 G/DL CALC GLOBULIN (test code = 2.5 G/DL 2240) CALC A/G RATIO (test code = 1.7 RATIO 2234) BILIRUBIN, TOTAL (test code = 0.4 MG/DL 2206) ALKALINE PHOSPHATASE (test 102 U/L code = 2204) AST (test code = 2218) 24 U/L ALT (test code = 2219) 43 U/L LIPID [id number] 00:00:00 Test Item Value Reference Range Interpretation Comments CHOLESTEROL (test code = 2210) 173 MG/DL TRIGLYCERIDES (test code = 2232) 248 MG/DL HDL CHOLESTEROL (test code = 2220) 33 MG/DL CALC LDL CHOL (test code = 2237) 105 MG/DL RISK RATIO LDL/HDL (test code = 3.18 RATIO 2238) LIPID [id number] 00:00:00 Test Item Value Reference Range Interpretation Comments CHOLESTEROL (test code = 2210) 173 MG/DL TRIGLYCERIDES (test code = 2232) 248 MG/DL HDL CHOLESTEROL (test code = 2220) 33 MG/DL CALC LDL CHOL (test code = 2237) 105 MG/DL RISK RATIO LDL/HDL (test code = 3.18 RATIO 2238) [id number] 00:00:00 Test Item Value Reference Range Interpretation Comments TSH, THIRD GENERATION (test code 1.470 UIU/ML = 2821) [id number] 00:00:00 Test Item Value Reference Range Interpretation Comments TSH, THIRD GENERATION (test code 1.470 UIU/ML = 2821) [id number] 00:00:00 Test Item Value Reference Range Interpretation Comments TSH, THIRD GENERATION (test code 1.470 UIU/ML = 2821) VITAMIN D, 25 [id number] 00:00:00 Test Item Value Reference Range Interpretation Comments VITAMIN D, 25 OH (test code = 4958) 20 NG/ML VITAMIN D, 25 [id number] 00:00:00 Test Item Value Reference Range Interpretation Comments VITAMIN D, 25 OH (test code = 4958) 20 NG/ML [id number] 00:00:00 Test Item Value Reference Range Interpretation Comments LITHIUM (test code = 2039) 0.39 MEQ/L [id number] 00:00:00 Test Item Value Reference Range Interpretation Comments LITHIUM (test code = 2039) 0.39 MEQ/L [id number] 00:00:00 Test Item Value Reference Range Interpretation Comments LITHIUM (test code = 2039) 0.39 MEQ/L COMPREHENSIVE METABOLIC [id number] 00:00:00 Test Item Value Reference Range Interpretation Comments GLUCOSE (test code = 2217) 109 MG/DL BUN (test code = 2208) 14 MG/DL CREATININE (test code = 2214) 0.64 MG/DL eGFR (2020 CKD-EPI) (test 106 ML/MIN/1.73 code = 54031) CALC BUN/CREAT (test code = 22 RATIO [...] code = 2219) 43 U/L COMPREHENSIVE METABOLIC [id number] 00:00:00 Test Item Value Reference Range Interpretation Comments GLUCOSE (test code = 2217) 109 MG/DL BUN (test code = 2208) 14 MG/DL CREATININE (test code = 2214) 0.64 MG/DL eGFR (2020 CKD-EPI) (test 106 ML/MIN/1.73 code = 54634) CALC BUN/CREAT (test code = 22 RATIO [...] code = 2219) 43 U/L COMPREHENSIVE METABOLIC [id number] 00:00:00 Test Item Value Reference Range Interpretation Comments GLUCOSE (test code = 2217) 109 MG/DL BUN (test code = 2208) 14 MG/DL CREATININE (test code = 2214) 0.64 MG/DL eGFR (2020 CKD-EPI) (test 106 ML/MIN/1.73 code = 46901) CALC BUN/CREAT (test code = 22 RATIO [...] (test code = 2219) 43 U/L LIPID [id number] 00:00:00 Test Item Value Reference Range Interpretation Comments CHOLESTEROL (test code = 2210) 112 MG/DL TRIGLYCERIDES (test code = 2232) 140 MG/DL HDL CHOLESTEROL (test code = 2220) 34 MG/DL CALC LDL CHOL (test code = 2237) 56 MG/DL RISK RATIO LDL/HDL (test code = 1.65 RATIO 2238) LIPID [id number] 00:00:00 Test Item Value Reference Range Interpretation Comments CHOLESTEROL (test code = 2210) 112 MG/DL TRIGLYCERIDES (test code = 2232) 140 MG/DL HDL CHOLESTEROL (test code = 2220) 34 MG/DL CALC LDL CHOL (test code = 2237) 56 MG/DL RISK RATIO LDL/HDL (test code = 1.65 RATIO 2238) COMPREHENSIVE METABOLIC [id number] 00:00:00 Test Item Value Reference Range Interpretation Comments GLUCOSE (test code = 2217) 109 MG/DL BUN (test code = 2208) 11 MG/DL CREATININE (test code = 2214) 0.68 MG/DL eGFR AMER. (test code 116 ML/MIN/1.73 = 16400) eGFR NON- AMER. (test 100 ML/MIN/1.73 code = 32757) CALC BUN/CREAT (test code = 16 RATIO [...] code = 2219) 29 U/L COMPREHENSIVE METABOLIC [id number] 00:00:00 Test Item Value Reference Range Interpretation Comments GLUCOSE (test code = 2217) 109 MG/DL BUN (test code = 2208) 11 MG/DL CREATININE (test code = 2214) 0.68 MG/DL eGFR AMER. (test code 116 ML/MIN/1.73 = 29109) eGFR NON- AMER. (test 100 ML/MIN/1.73 code = 55394) CALC BUN/CREAT (test code = 16 RATIO [...] (test code = 2219) 29 U/L LIPID [id number] 00:00:00 Test Item Value Reference Range Interpretation Comments CHOLESTEROL (test code = 2210) 112 MG/DL TRIGLYCERIDES (test code = 2232) 140 MG/DL HDL CHOLESTEROL (test code = 2220) 34 MG/DL CALC LDL CHOL (test code = 2237) 56 MG/DL RISK RATIO LDL/HDL (test code = 1.65 RATIO 2238) VITAMIN D, 25 [id number] 00:00:00 Test Item Value Reference Range Interpretation Comments VITAMIN D, 25 OH (test code = 4958) 20 NG/ML VITAMIN D, 25 [id number] 00:00:00 Test Item Value Reference Range Interpretation Comments VITAMIN D, 25 OH (test code = 4958) 20 NG/ML COMPREHENSIVE METABOLIC [id number] 00:00:00 Test Item Value Reference Range Interpretation Comments GLUCOSE (test code = 2217) 109 MG/DL BUN (test code = 2208) 11 MG/DL CREATININE (test code = 2214) 0.68 MG/DL eGFR AMER. (test code 116 ML/MIN/1.73 = 72520) eGFR NON- AMER. (test 100 ML/MIN/1.73 code = 38716) CALC BUN/CREAT (test code = 16 RATIO [...] ALT (test code = 2219) 29 U/L [id number] 00:00:00 Test Item Value Reference Range Interpretation Comments LITHIUM (test code = 2038) 0.38 MEQ/L [id number] 00:00:00 Test Item Value Reference Range Interpretation Comments LITHIUM (test code = 2038) 0.38 MEQ/L [id number] 00:00:00 Test Item Value Reference Range Interpretation Comments LITHIUM (test code = 2038) 0.38 MEQ/L THYROID II PROFILE (T3U, T4, T7, TSH)2020-10-05 00:00:00 Test Item Value Reference Range Interpretation Comments T-UPTAKE (test code = 2816) 30.2 % THYROX. BIND. CAPAC. (test code 1.1 = 32086) T4 (THYROXINE) (test code = 4.4 UG/DL 281) CORRECTED T4 (FTI) (test code = 4.0 UG/DL 2820) TSH, THIRD GENERATION (test code 4.570 UIU/ML = 2821) THYROID II PROFILE (T3U, T4, T7, TSH)2020-10-05 00:00:00 Test Item Value Reference Range Interpretation Comments T-UPTAKE (test code = 2816) 30.2 % THYROX. BIND. CAPAC. (test code 1.1 = 59536) T4 (THYROXINE) (test code = 4.4 UG/DL 2819) CORRECTED T4 (FTI) (test code = 4.0 UG/DL 2820) TSH, THIRD GENERATION (test code 4.570 UIU/ML = 2821) VITAMIN D, 25 [id number] 00:00:00 Test Item Value Reference Range Interpretation Comments VITAMIN D, 25 OH (test code = 4958) 20 NG/ML [id number] 00:00:00 Test Item Value Reference Range Interpretation Comments LITHIUM (test code = 2038) 0.38 MEQ/L [id number] 00:00:00 Test Item Value Reference Range Interpretation Comments LITHIUM (test code = 2038) 0.38 MEQ/L THYROID II PROFILE (T3U, T4, T7, TSH)2020-10-05 00:00:00 Test Item Value Reference Range Interpretation Comments T-UPTAKE (test code = 2816) 30.2 % THYROX. BIND. CAPAC. (test code 1.1 = 87280) T4 (THYROXINE) (test code = 4.4 UG/DL 2819) CORRECTED T4 (FTI) (test code = 4.0 UG/DL 2820) TSH, THIRD GENERATION (test code 4.570 UIU/ML = 2821) CBC W/AUTO [id number] 00:00:00 Test Item Value Reference Range Interpretation [...] NUCLEATED RBCS (test code = 0.00 K/UL 25522) CBC W/AUTO [id number] 00:00:00 Test Item Value Reference Range Interpretation [...] NUCLEATED RBCS (test code = 0.00 K/UL 14389) CBC W/AUTO [id number] 00:00:00 Test Item Value Reference Range Interpretation [...] NUCLEATED RBCS (test code = 0.00 K/UL 26490) LIPID [id number] 00:00:00 Test Item Value Reference Range Interpretation Comments CHOLESTEROL (test code = 2210) 112 MG/DL TRIGLYCERIDES (test code = 2232) 140 MG/DL HDL CHOLESTEROL (test code = 2220) 34 MG/DL CALC LDL CHOL (test code = 2237) 56 MG/DL RISK RATIO LDL/HDL (test code = 1.65 RATIO 2238) LIPID [id number] 00:00:00 Test Item Value Reference Range Interpretation Comments CHOLESTEROL (test code = 2210) 112 MG/DL TRIGLYCERIDES (test code = 2232) 140 MG/DL HDL CHOLESTEROL (test code = 2220) 34 MG/DL CALC LDL CHOL (test code = 2237) 56 MG/DL RISK RATIO LDL/HDL (test code = 1.65 RATIO 2238) COMPREHENSIVE METABOLIC [id number] 00:00:00 Test Item Value Reference Range Interpretation Comments GLUCOSE (test code = 2217) 109 MG/DL BUN (test code = 2208) 11 MG/DL CREATININE (test code = 2214) 0.68 MG/DL eGFR AMER. (test code 116 ML/MIN/1.73 = 23625) eGFR NON- AMER. (test 100 ML/MIN/1.73 code = 34929) CALC BUN/CREAT (test code = 16 RATIO [...] code = 2219) 29 U/L COMPREHENSIVE METABOLIC [id number] 00:00:00 Test Item Value Reference Range Interpretation Comments GLUCOSE (test code = 2217) 109 MG/DL BUN (test code = 2208) 11 MG/DL CREATININE (test code = 2214) 0.68 MG/DL eGFR AMER. (test code 116 ML/MIN/1.73 = 51168) eGFR NON- AMER. (test 100 ML/MIN/1.73 code = 10844) CALC BUN/CREAT (test code = 16 RATIO [...] = 2219) 29 U/L VITAMIN D, 25 [id number] 00:00:00 Test Item Value Reference Range Interpretation Comments VITAMIN D, 25 OH (test code = 4958) 20 NG/ML VITAMIN D, 25 [id number] 00:00:00 Test Item Value Reference Range Interpretation Comments VITAMIN D, 25 OH (test code = 4958) 20 NG/ML [id number] 00:00:00 Test Item Value Reference Range Interpretation Comments LITHIUM (test code = 2038) 0.38 MEQ/L [id number] 00:00:00 Test Item Value Reference Range Interpretation Comments LITHIUM (test code = 2038) 0.38 MEQ/L [id number] 00:00:00 Test Item Value Reference Range Interpretation Comments LITHIUM (test code = 2038) 0.38 MEQ/L THYROID II PROFILE (T3U, T4, T7, TSH)2020-10-05 00:00:00 Test Item Value Reference Range Interpretation Comments T-UPTAKE (test code = 2817) 30.2 % THYROX. BIND. CAPAC. (test code 1.1 = 40831) T4 (THYROXINE) (test code = 4.4 UG/DL 2819) CORRECTED T4 (FTI) (test code = 4.0 UG/DL 2820) TSH, THIRD GENERATION (test code 4.570 UIU/ML = 2821) THYROID II PROFILE (T3U, T4, T7, TSH)2020-10-05 00:00:00 Test Item Value Reference Range Interpretation Comments T-UPTAKE (test code = 2817) 30.2 % THYROX. BIND. CAPAC. (test code 1.1 = 90489) T4 (THYROXINE) (test code = 4.4 UG/DL 2819) CORRECTED T4 (FTI) (test code = 4.0 UG/DL 2820) TSH, THIRD GENERATION (test code 4.570 UIU/ML = 2821) CBC W/AUTO [id number] 00:00:00 Test Item Value Reference Range Interpretation [...] NUCLEATED RBCS (test code = 0.00 K/UL 67934) CBC W/AUTO [id number] 00:00:00 Test Item Value Reference Range Interpretation [...] NUCLEATED RBCS (test code = 0.00 K/UL 15387) CBC W/AUTO [id number] 00:00:00 Test Item Value Reference Range Interpretation [...] NUCLEATED RBCS (test code = 0.00 K/UL 01144) LIPID [id number] 00:00:00 Test Item Value Reference Range Interpretation Comments CHOLESTEROL (test code = 2210) 112 MG/DL TRIGLYCERIDES (test code = 2232) 140 MG/DL HDL CHOLESTEROL (test code = 2220) 34 MG/DL CALC LDL CHOL (test code = 2237) 56 MG/DL RISK RATIO LDL/HDL (test code = 1.65 RATIO 2238) LIPID [id number] 00:00:00 Test Item Value Reference Range Interpretation Comments CHOLESTEROL (test code = 2210) 112 MG/DL TRIGLYCERIDES (test code = 2232) 140 MG/DL HDL CHOLESTEROL (test code = 2220) 34 MG/DL CALC LDL CHOL (test code = 2237) 56 MG/DL RISK RATIO LDL/HDL (test code = 1.65 RATIO 2238) COMPREHENSIVE METABOLIC [id number] 00:00:00 Test Item Value Reference Range Interpretation Comments GLUCOSE (test code = 2217) 109 MG/DL BUN (test code = 2208) 11 MG/DL CREATININE (test code = 2214) 0.68 MG/DL eGFR AMER. (test code 116 ML/MIN/1.73 = 33758) eGFR NON- AMER. (test 100 ML/MIN/1.73 code = 58623) CALC BUN/CREAT (test code = 16 RATIO [...] code = 2219) 29 U/L COMPREHENSIVE METABOLIC [id number] 00:00:00 Test Item Value Reference Range Interpretation Comments GLUCOSE (test code = 2217) 109 MG/DL BUN (test code = 2208) 11 MG/DL CREATININE (test code = 2214) 0.68 MG/DL eGFR AMER. (test code 116 ML/MIN/1.73 = 61459) eGFR NON- AMER. (test 100 ML/MIN/1.73 code = 58052) CALC BUN/CREAT (test code = 16 RATIO [...] = 2219) 29 U/L VITAMIN D, 25 [id number] 00:00:00 Test Item Value Reference Range Interpretation Comments VITAMIN D, 25 OH (test code = 4958) 20 NG/ML VITAMIN D, 25 [id number] 00:00:00 Test Item Value Reference Range Interpretation Comments VITAMIN D, 25 OH (test code = 4958) 20 NG/ML [id number] 00:00:00 Test Item Value Reference Range Interpretation Comments LITHIUM (test code = 2038) 0.38 MEQ/L [id number] 00:00:00 Test Item Value Reference Range Interpretation Comments LITHIUM (test code = 2038) 0.38 MEQ/L [id number] 00:00:00 Test Item Value Reference Range Interpretation Comments LITHIUM (test code = 2038) 0.38 MEQ/L THYROID II PROFILE (T3U, T4, T7, TSH)2020-10-05 00:00:00 Test Item Value Reference Range Interpretation Comments T-UPTAKE (test code = 2816) 30.2 % THYROX. BIND. CAPAC. (test code 1.1 = 47166) T4 (THYROXINE) (test code = 4.4 UG/DL 2818) CORRECTED T4 (FTI) (test code = 4.0 UG/DL 2820) TSH, THIRD GENERATION (test code 4.570 UIU/ML = 2821) THYROID II PROFILE (T3U, T4, T7, TSH)2020-10-05 00:00:00 Test Item Value Reference Range Interpretation Comments T-UPTAKE (test code = 2816) 30.2 % THYROX. BIND. CAPAC. (test code 1.1 = 48597) T4 (THYROXINE) (test code = 4.4 UG/DL 9) CORRECTED T4 (FTI) (test code = 4.0 UG/DL 2820) TSH, THIRD GENERATION (test code 4.570 UIU/ML = 2821) CBC W/AUTO [id number] 00:00:00 Test Item Value Reference Range Interpretation [...] NUCLEATED RBCS (test code = 0.00 K/UL 90769) CBC W/AUTO [id number] 00:00:00 Test Item Value Reference Range Interpretation [...] NUCLEATED RBCS (test code = 0.00 K/UL 50485) CBC W/AUTO [id number] 00:00:00 Test Item Value Reference Range Interpretation [...] NUCLEATED RBCS (test code = 0.00 K/UL 51252) LIPID [id number] 00:00:00 Test Item Value Reference Range Interpretation Comments CHOLESTEROL (test code = 2210) 112 MG/DL TRIGLYCERIDES (test code = 2232) 140 MG/DL HDL CHOLESTEROL (test code = 2220) 34 MG/DL CALC LDL CHOL (test code = 2237) 56 MG/DL RISK RATIO LDL/HDL (test code = 1.65 RATIO 2238) LIPID [id number] 00:00:00 Test Item Value Reference Range Interpretation Comments CHOLESTEROL (test code = 2210) 112 MG/DL TRIGLYCERIDES (test code = 2232) 140 MG/DL HDL CHOLESTEROL (test code = 2220) 34 MG/DL CALC LDL CHOL (test code = 2237) 56 MG/DL RISK RATIO LDL/HDL (test code = 1.65 RATIO 2238) COMPREHENSIVE METABOLIC [id number] 00:00:00 Test Item Value Reference Range Interpretation Comments GLUCOSE (test code = 2217) 109 MG/DL BUN (test code = 2208) 11 MG/DL CREATININE (test code = 2214) 0.68 MG/DL eGFR AMER. (test code 116 ML/MIN/1.73 = 48568) eGFR NON- AMER. (test 100 ML/MIN/1.73 code = 74090) CALC BUN/CREAT (test code = 16 RATIO [...] code = 2219) 29 U/L COMPREHENSIVE METABOLIC [id number] 00:00:00 Test Item Value Reference Range Interpretation Comments GLUCOSE (test code = 2217) 109 MG/DL BUN (test code = 2208) 11 MG/DL CREATININE (test code = 2214) 0.68 MG/DL eGFR AMER. (test code 116 ML/MIN/1.73 = 58022) eGFR NON- AMER. (test 100 ML/MIN/1.73 code = 76133) CALC BUN/CREAT (test code = 16 RATIO 2234) SODIUM (test code = 2231) 140 MEQ/L POTASSIUM (test code = 2228) 4.6 MEQ/L CHLORIDE (test code = 2215) 108 MEQ/L CARBON DIOXIDE (test code = 22 MEQ/L 2205) CALCIUM (test code = 2208) 10.7 MG/DL PROTEIN, TOTAL (test code = 6.4 G/DL 2228) ALBUMIN (test code = 220) 4.4 G/DL CALC GLOBULIN (test code = 2.0 G/DL 2239) CALC A/G RATIO (test code = 2.2 RATIO 2233) BILIRUBIN, TOTAL (test code = 0.3 MG/DL 2206) ALKALINE PHOSPHATASE (test 100 U/L code = 2203) AST (test code = 2217) 19 U/L ALT (test code = 2218) 29 U/L VITAMIN D, 25 [id number] 00:00:00 Test Item Value Reference Range Interpretation Comments VITAMIN D, 25 OH (test code = 4958) 20 NG/ML VITAMIN D, 25 [id number] 00:00:00 Test Item Value Reference Range Interpretation Comments VITAMIN D, 25 OH (test code = 4958) 20 NG/ML [id number] 00:00:00 Test Item Value Reference Range Interpretation Comments LITHIUM (test code = 2038) 0.38 MEQ/L [id number] 00:00:00 Test Item Value Reference Range Interpretation Comments LITHIUM (test code = 2038) 0.38 MEQ/L [id number] 00:00:00 Test Item Value Reference Range Interpretation Comments LITHIUM (test code = 2038) 0.38 MEQ/L THYROID II PROFILE (T3U, T4, T7, TSH)2020-10-05 00:00:00 Test Item Value Reference Range Interpretation Comments T-UPTAKE (test code = 2817) 30.2 % THYROX. BIND. CAPAC. (test code 1.1 = 58084) T4 (THYROXINE) (test code = 4.4 UG/DL 2818) CORRECTED T4 (FTI) (test code = 4.0 UG/DL 2820) TSH, THIRD GENERATION (test code 4.570 UIU/ML = 2821) THYROID II PROFILE (T3U, T4, T7, TSH)2020-10-05 00:00:00 Test Item Value Reference Range Interpretation Comments T-UPTAKE (test code = 2817) 30.2 % THYROX. BIND. CAPAC. (test code 1.1 = 04434) T4 (THYROXINE) (test code = 4.4 UG/DL 2819) CORRECTED T4 (FTI) (test code = 4.0 UG/DL 2820) TSH, THIRD GENERATION (test code 4.570 UIU/ML = 2821) CBC W/AUTO [id number] 00:00:00 Test Item Value Reference Range Interpretation [...] NUCLEATED RBCS (test code = 0.00 K/UL 02715) CBC W/AUTO [id number] 00:00:00 Test Item Value Reference Range Interpretation [...] NUCLEATED RBCS (test code = 0.00 K/UL 12090) CBC W/AUTO [id number] 00:00:00 Test Item Value Reference Range Interpretation [...] NUCLEATED RBCS (test code = 0.00 K/UL 06892) LIPID [id number] 00:00:00 Test Item Value Reference Range Interpretation Comments CHOLESTEROL (test code = 2210) 112 MG/DL TRIGLYCERIDES (test code = 2232) 140 MG/DL HDL CHOLESTEROL (test code = 2220) 34 MG/DL CALC LDL CHOL (test code = 2237) 56 MG/DL RISK RATIO LDL/HDL (test code = 1.65 RATIO 2238) LIPID [id number] 00:00:00 Test Item Value Reference Range Interpretation Comments CHOLESTEROL (test code = 2210) 112 MG/DL TRIGLYCERIDES (test code = 2232) 140 MG/DL HDL CHOLESTEROL (test code = 2220) 34 MG/DL CALC LDL CHOL (test code = 2237) 56 MG/DL RISK RATIO LDL/HDL (test code = 1.65 RATIO 2238) COMPREHENSIVE METABOLIC [id number] 00:00:00 Test Item Value Reference Range Interpretation Comments GLUCOSE (test code = 2217) 109 MG/DL BUN (test code = 2208) 11 MG/DL CREATININE (test code = 2214) 0.68 MG/DL eGFR AMER. (test code 116 ML/MIN/1.73 = 32555) eGFR NON- AMER. (test 100 ML/MIN/1.73 code = 75982) CALC BUN/CREAT (test code = 16 RATIO [...] code = 2219) 29 U/L COMPREHENSIVE METABOLIC [id number] 00:00:00 Test Item Value Reference Range Interpretation Comments GLUCOSE (test code = 2217) 109 MG/DL BUN (test code = 2208) 11 MG/DL CREATININE (test code = 2214) 0.68 MG/DL eGFR AMER. (test code 116 ML/MIN/1.73 = 63418) eGFR NON- AMER. (test 100 ML/MIN/1.73 code = 31625) CALC BUN/CREAT (test code = 16 RATIO [...] = 2219) 29 U/L VITAMIN D, 25 [id number] 00:00:00 Test Item Value Reference Range Interpretation Comments VITAMIN D, 25 OH (test code = 4958) 20 NG/ML VITAMIN D, 25 [id number] 00:00:00 Test Item Value Reference Range Interpretation Comments VITAMIN D, 25 OH (test code = 4958) 20 NG/ML [id number] 00:00:00 Test Item Value Reference Range Interpretation Comments LITHIUM (test code = 203) 0.38 MEQ/L [id number] 00:00:00 Test Item Value Reference Range Interpretation Comments LITHIUM (test code = 2039) 0.38 MEQ/L [id number] 00:00:00 Test Item Value Reference Range Interpretation Comments LITHIUM (test code = 2038) 0.38 MEQ/L THYROID II PROFILE (T3U, T4, T7, TSH)2020-10-05 00:00:00 Test Item Value Reference Range Interpretation Comments T-UPTAKE (test code = 2816) 30.2 % THYROX. BIND. CAPAC. (test code 1.1 = 97632) T4 (THYROXINE) (test code = 4.4 UG/DL 2819) CORRECTED T4 (FTI) (test code = 4.0 UG/DL 2820) TSH, THIRD GENERATION (test code 4.570 UIU/ML = 2821) THYROID II PROFILE (T3U, T4, T7, TSH)2020-10-05 00:00:00 Test Item Value Reference Range Interpretation Comments T-UPTAKE (test code = 2816) 30.2 % THYROX. BIND. CAPAC. (test code 1.1 = 77314) T4 (THYROXINE) (test code = 4.4 UG/DL 2819) CORRECTED T4 (FTI) (test code = 4.0 UG/DL 2820) TSH, THIRD GENERATION (test code 4.570 UIU/ML = 2821) CBC W/AUTO [id number] 00:00:00 Test Item Value Reference Range Interpretation [...] NUCLEATED RBCS (test code = 0.00 K/UL 57047) CBC W/AUTO [id number] 00:00:00 Test Item Value Reference Range Interpretation [...] NUCLEATED RBCS (test code = 0.00 K/UL 89384) CBC W/AUTO [id number] 00:00:00 Test Item Value Reference Range Interpretation [...] NUCLEATED RBCS (test code = 0.00 K/UL 55946) LIPID [id number] 00:00:00 Test Item Value Reference Range Interpretation Comments CHOLESTEROL (test code = 2210) 112 MG/DL TRIGLYCERIDES (test code = 2232) 140 MG/DL HDL CHOLESTEROL (test code = 2220) 34 MG/DL CALC LDL CHOL (test code = 2237) 56 MG/DL RISK RATIO LDL/HDL (test code = 1.65 RATIO 2238) LIPID [id number] 00:00:00 Test Item Value Reference Range Interpretation Comments CHOLESTEROL (test code = 2210) 112 MG/DL TRIGLYCERIDES (test code = 2232) 140 MG/DL HDL CHOLESTEROL (test code = 2220) 34 MG/DL CALC LDL CHOL (test code = 2237) 56 MG/DL RISK RATIO LDL/HDL (test code = 1.65 RATIO 2238) COMPREHENSIVE METABOLIC [id number] 00:00:00 Test Item Value Reference Range Interpretation Comments GLUCOSE (test code = 2217) 109 MG/DL BUN (test code = 2208) 11 MG/DL CREATININE (test code = 2214) 0.68 MG/DL eGFR AMER. (test code 116 ML/MIN/1.73 = 55882) eGFR NON- AMER. (test 100 ML/MIN/1.73 code = 28220) CALC BUN/CREAT (test code = 16 RATIO [...] code = 2219) 29 U/L COMPREHENSIVE METABOLIC [id number] 00:00:00 Test Item Value Reference Range Interpretation Comments GLUCOSE (test code = 2217) 109 MG/DL BUN (test code = 2208) 11 MG/DL CREATININE (test code = 2214) 0.68 MG/DL eGFR AMER. (test code 116 ML/MIN/1.73 = 31300) eGFR NON- AMER. (test 100 ML/MIN/1.73 code = 34520) CALC BUN/CREAT (test code = 16 RATIO [...] = 2219) 29 U/L VITAMIN D, 25 [id number] 00:00:00 Test Item Value Reference Range Interpretation Comments VITAMIN D, 25 OH (test code = 4958) 20 NG/ML VITAMIN D, 25 [id number] 00:00:00 Test Item Value Reference Range Interpretation Comments VITAMIN D, 25 OH (test code = 4958) 20 NG/ML [id number] 00:00:00 Test Item Value Reference Range Interpretation Comments LITHIUM (test code = 2038) 0.38 MEQ/L [id number] 00:00:00 Test Item Value Reference Range Interpretation Comments LITHIUM (test code = 2038) 0.38 MEQ/L [id number] 00:00:00 Test Item Value Reference Range Interpretation Comments LITHIUM (test code = 2038) 0.38 MEQ/L THYROID II PROFILE (T3U, T4, T7, TSH)2020-10-05 00:00:00 Test Item Value Reference Range Interpretation Comments T-UPTAKE (test code = 7) 30.2 % THYROX. BIND. CAPAC. (test code 1.1 = 81445) T4 (THYROXINE) (test code = 4.4 UG/DL 281) CORRECTED T4 (FTI) (test code = 4.0 UG/DL 2820) TSH, THIRD GENERATION (test code 4.570 UIU/ML = 2821) THYROID II PROFILE (T3U, T4, T7, TSH)2020-10-05 00:00:00 Test Item Value Reference Range Interpretation Comments T-UPTAKE (test code = 2817) 30.2 % THYROX. BIND. CAPAC. (test code 1.1 = 05237) T4 (THYROXINE) (test code = 4.4 UG/DL 2819) CORRECTED T4 (FTI) (test code = 4.0 UG/DL 2820) TSH, THIRD GENERATION (test code 4.570 UIU/ML = 2821) CBC W/AUTO [id number] 00:00:00 Test Item Value Reference Range Interpretation [...] NUCLEATED RBCS (test code = 0.00 K/UL 93417) CBC W/AUTO [id number] 00:00:00 Test Item Value Reference Range Interpretation [...] NUCLEATED RBCS (test code = 0.00 K/UL 22171) CBC W/AUTO [id number] 00:00:00 Test Item Value Reference Range Interpretation [...] NUCLEATED RBCS (test code = 0.00 K/UL 35949) LIPID [id number] 00:00:00 Test Item Value Reference Range Interpretation Comments CHOLESTEROL (test code = 2210) 112 MG/DL TRIGLYCERIDES (test code = 2232) 140 MG/DL HDL CHOLESTEROL (test code = 2220) 34 MG/DL CALC LDL CHOL (test code = 2237) 56 MG/DL RISK RATIO LDL/HDL (test code = 1.65 RATIO 2238) LIPID [id number] 00:00:00 Test Item Value Reference Range Interpretation Comments CHOLESTEROL (test code = 2210) 112 MG/DL TRIGLYCERIDES (test code = 2232) 140 MG/DL HDL CHOLESTEROL (test code = 2220) 34 MG/DL CALC LDL CHOL (test code = 2237) 56 MG/DL RISK RATIO LDL/HDL (test code = 1.65 RATIO 2238) COMPREHENSIVE METABOLIC [id number] 00:00:00 Test Item Value Reference Range Interpretation Comments GLUCOSE (test code = 2217) 109 MG/DL BUN (test code = 2208) 11 MG/DL CREATININE (test code = 2214) 0.68 MG/DL eGFR AMER. (test code 116 ML/MIN/1.73 = 37293) eGFR NON- AMER. (test 100 ML/MIN/1.73 code = 49279) CALC BUN/CREAT (test code = 16 RATIO [...] code = 2219) 29 U/L COMPREHENSIVE METABOLIC [id number] 00:00:00 Test Item Value Reference Range Interpretation Comments GLUCOSE (test code = 2217) 109 MG/DL BUN (test code = 2208) 11 MG/DL CREATININE (test code = 2214) 0.68 MG/DL eGFR AMER. (test code 116 ML/MIN/1.73 = 64640) eGFR NON- AMER. (test 100 ML/MIN/1.73 code = 61907) CALC BUN/CREAT (test code = 16 RATIO [...] = 2219) 29 U/L VITAMIN D, 25 [id number] 00:00:00 Test Item Value Reference Range Interpretation Comments VITAMIN D, 25 OH (test code = 4958) 20 NG/ML VITAMIN D, 25 [id number] 00:00:00 Test Item Value Reference Range Interpretation Comments VITAMIN D, 25 OH (test code = 4958) 20 NG/ML [id number] 00:00:00 Test Item Value Reference Range Interpretation Comments LITHIUM (test code = 2038) 0.38 MEQ/L [id number] 00:00:00 Test Item Value Reference Range Interpretation Comments LITHIUM (test code = 203) 0.38 MEQ/L [id number] 00:00:00 Test Item Value Reference Range Interpretation Comments LITHIUM (test code = 203) 0.38 MEQ/L THYROID II PROFILE (T3U, T4, T7, TSH)2020-10-05 00:00:00 Test Item Value Reference Range Interpretation Comments T-UPTAKE (test code = 281) 30.2 % THYROX. BIND. CAPAC. (test code 1.1 = 82200) T4 (THYROXINE) (test code = 4.4 UG/DL 2818) CORRECTED T4 (FTI) (test code = 4.0 UG/DL 2820) TSH, THIRD GENERATION (test code 4.570 UIU/ML = 2821) THYROID II PROFILE (T3U, T4, T7, TSH)2020-10-05 00:00:00 Test Item Value Reference Range Interpretation Comments T-UPTAKE (test code = 2817) 30.2 % THYROX. BIND. CAPAC. (test code 1.1 = 62386) T4 (THYROXINE) (test code = 4.4 UG/DL 2819) CORRECTED T4 (FTI) (test code = 4.0 UG/DL 2820) TSH, THIRD GENERATION (test code 4.570 UIU/ML = 2821) CBC W/AUTO [id number] 00:00:00 Test Item Value Reference Range Interpretation [...] NUCLEATED RBCS (test code = 0.00 K/UL 35762) CBC W/AUTO [id number] 00:00:00 Test Item Value Reference Range Interpretation [...] NUCLEATED RBCS (test code = 0.00 K/UL 07191) CBC W/AUTO [id number] 00:00:00 Test Item Value Reference Range Interpretation [...] NUCLEATED RBCS (test code = 0.00 K/UL 54330) LIPID [id number] 00:00:00 Test Item Value Reference Range Interpretation Comments CHOLESTEROL (test code = 2210) 112 MG/DL TRIGLYCERIDES (test code = 2232) 140 MG/DL HDL CHOLESTEROL (test code = 2220) 34 MG/DL CALC LDL CHOL (test code = 2237) 56 MG/DL RISK RATIO LDL/HDL (test code = 1.65 RATIO 2238) LIPID [id number] 00:00:00 Test Item Value Reference Range Interpretation Comments CHOLESTEROL (test code = 2210) 112 MG/DL TRIGLYCERIDES (test code = 2232) 140 MG/DL HDL CHOLESTEROL (test code = 2220) 34 MG/DL CALC LDL CHOL (test code = 2237) 56 MG/DL RISK RATIO LDL/HDL (test code = 1.65 RATIO 2238) COMPREHENSIVE METABOLIC [id number] 00:00:00 Test Item Value Reference Range Interpretation Comments GLUCOSE (test code = 2217) 109 MG/DL BUN (test code = 2208) 11 MG/DL CREATININE (test code = 2214) 0.68 MG/DL eGFR AMER. (test code 116 ML/MIN/1.73 = 96819) eGFR NON- AMER. (test 100 ML/MIN/1.73 code = 29975) CALC BUN/CREAT (test code = 16 RATIO [...] code = 2219) 29 U/L COMPREHENSIVE METABOLIC [id number] 00:00:00 Test Item Value Reference Range Interpretation Comments GLUCOSE (test code = 2217) 109 MG/DL BUN (test code = 2208) 11 MG/DL CREATININE (test code = 2214) 0.68 MG/DL eGFR AMER. (test code 116 ML/MIN/1.73 = 48139) eGFR NON- AMER. (test 100 ML/MIN/1.73 code = 71970) CALC BUN/CREAT (test code = 16 RATIO [...] BILIRUBIN, TOTAL (test code = 0.3 MG/DL 7) ALKALINE PHOSPHATASE (test 100 U/L code = 2204) AST (test code = 2218) 19 U/L ALT (test code = 2219) 29 U/L VITAMIN D, 25 [id number] 00:00:00 Test Item Value Reference Range Interpretation Comments VITAMIN D, 25 OH (test code = 4958) 20 NG/ML VITAMIN D, 25 [id number] 00:00:00 Test Item Value Reference Range Interpretation Comments VITAMIN D, 25 OH (test code = 4958) 20 NG/ML [id number] 00:00:00 Test Item Value Reference Range Interpretation Comments LITHIUM (test code = 2038) 0.38 MEQ/L [id number] 00:00:00 Test Item Value Reference Range Interpretation Comments LITHIUM (test code = 2038) 0.38 MEQ/L [id number] 00:00:00 Test Item Value Reference Range Interpretation Comments LITHIUM (test code = 2038) 0.38 MEQ/L THYROID II PROFILE (T3U, T4, T7, TSH)2020-10-05 00:00:00 Test Item Value Reference Range Interpretation Comments T-UPTAKE (test code = 2816) 30.2 % THYROX. BIND. CAPAC. (test code 1.1 = 30523) T4 (THYROXINE) (test code = 4.4 UG/DL 2818) CORRECTED T4 (FTI) (test code = 4.0 UG/DL 2820) TSH, THIRD GENERATION (test code 4.570 UIU/ML = 2821) THYROID II PROFILE (T3U, T4, T7, TSH)2020-10-05 00:00:00 Test Item Value Reference Range Interpretation Comments T-UPTAKE (test code = 2816) 30.2 % THYROX. BIND. CAPAC. (test code 1.1 = 48033) T4 (THYROXINE) (test code = 4.4 UG/DL 2819) CORRECTED T4 (FTI) (test code = 4.0 UG/DL 2820) TSH, THIRD GENERATION (test code 4.570 UIU/ML = 2821) CBC W/AUTO [id number] 00:00:00 Test Item Value Reference Range Interpretation [...] NUCLEATED RBCS (test code = 0.00 K/UL 84453) CBC W/AUTO [id number] 00:00:00 Test Item Value Reference Range Interpretation [...] NUCLEATED RBCS (test code = 0.00 K/UL 05556) CBC W/AUTO [id number] 00:00:00 Test Item Value Reference Range Interpretation [...] NUCLEATED RBCS (test code = 0.00 K/UL 97452) LIPID [id number] 00:00:00 Test Item Value Reference Range Interpretation Comments CHOLESTEROL (test code = 2210) 112 MG/DL TRIGLYCERIDES (test code = 2232) 140 MG/DL HDL CHOLESTEROL (test code = 2220) 34 MG/DL CALC LDL CHOL (test code = 2237) 56 MG/DL RISK RATIO LDL/HDL (test code = 1.65 RATIO 2238) LIPID [id number] 00:00:00 Test Item Value Reference Range Interpretation Comments CHOLESTEROL (test code = 2210) 112 MG/DL TRIGLYCERIDES (test code = 2232) 140 MG/DL HDL CHOLESTEROL (test code = 2220) 34 MG/DL CALC LDL CHOL (test code = 2237) 56 MG/DL RISK RATIO LDL/HDL (test code = 1.65 RATIO 2238) COMPREHENSIVE METABOLIC [id number] 00:00:00 Test Item Value Reference Range Interpretation Comments GLUCOSE (test code = 2217) 109 MG/DL BUN (test code = 2208) 11 MG/DL CREATININE (test code = 2214) 0.68 MG/DL eGFR AMER. (test code 116 ML/MIN/1.73 = 30819) eGFR NON- AMER. (test 100 ML/MIN/1.73 code = 62407) CALC BUN/CREAT (test code = 16 RATIO [...] code = 2219) 29 U/L COMPREHENSIVE METABOLIC [id number] 00:00:00 Test Item Value Reference Range Interpretation Comments GLUCOSE (test code = 2217) 109 MG/DL BUN (test code = 2208) 11 MG/DL CREATININE (test code = 2214) 0.68 MG/DL eGFR AMER. (test code 116 ML/MIN/1.73 = 01723) eGFR NON- AMER. (test 100 ML/MIN/1.73 code = 31999) CALC BUN/CREAT (test code = 16 RATIO [...] = 2219) 29 U/L VITAMIN D, 25 [id number] 00:00:00 Test Item Value Reference Range Interpretation Comments VITAMIN D, 25 OH (test code = 4958) 20 NG/ML VITAMIN D, 25 [id number] 00:00:00 Test Item Value Reference Range Interpretation Comments VITAMIN D, 25 OH (test code = 4958) 20 NG/ML [id number] 00:00:00 Test Item Value Reference Range Interpretation Comments LITHIUM (test code = 2038) 0.38 MEQ/L [id number] 00:00:00 Test Item Value Reference Range Interpretation Comments LITHIUM (test code = 2038) 0.38 MEQ/L [id number] 00:00:00 Test Item Value Reference Range Interpretation Comments LITHIUM (test code = 2038) 0.38 MEQ/L THYROID II PROFILE (T3U, T4, T7, TSH)2020-10-05 00:00:00 Test Item Value Reference Range Interpretation Comments T-UPTAKE (test code = 2816) 30.2 % THYROX. BIND. CAPAC. (test code 1.1 = 63195) T4 (THYROXINE) (test code = 4.4 UG/DL 2818) CORRECTED T4 (FTI) (test code = 4.0 UG/DL 2820) TSH, THIRD GENERATION (test code 4.570 UIU/ML = 2821) THYROID II PROFILE (T3U, T4, T7, TSH)2020-10-05 00:00:00 Test Item Value Reference Range Interpretation Comments T-UPTAKE (test code = 2816) 30.2 % THYROX. BIND. CAPAC. (test code 1.1 = 24388) T4 (THYROXINE) (test code = 4.4 UG/DL 2819) CORRECTED T4 (FTI) (test code = 4.0 UG/DL 2820) TSH, THIRD GENERATION (test code 4.570 UIU/ML = 2821) CBC W/AUTO [id number] 00:00:00 Test Item Value Reference Range Interpretation [...] NUCLEATED RBCS (test code = 0.00 K/UL 14940) CBC W/AUTO [id number] 00:00:00 Test Item Value Reference Range Interpretation [...] NUCLEATED RBCS (test code = 0.00 K/UL 75092) CBC W/AUTO [id number] 00:00:00 Test Item Value Reference Range Interpretation [...] NUCLEATED RBCS (test code = 0.00 K/UL 54346) LIPID [id number] 00:00:00 Test Item Value Reference Range Interpretation Comments CHOLESTEROL (test code = 2210) 112 MG/DL TRIGLYCERIDES (test code = 2232) 140 MG/DL HDL CHOLESTEROL (test code = 2220) 34 MG/DL CALC LDL CHOL (test code = 2237) 56 MG/DL RISK RATIO LDL/HDL (test code = 1.65 RATIO 2238) LIPID [id number] 00:00:00 Test Item Value Reference Range Interpretation Comments CHOLESTEROL (test code = 2210) 112 MG/DL TRIGLYCERIDES (test code = 2232) 140 MG/DL HDL CHOLESTEROL (test code = 2220) 34 MG/DL CALC LDL CHOL (test code = 2237) 56 MG/DL RISK RATIO LDL/HDL (test code = 1.65 RATIO 2238) COMPREHENSIVE METABOLIC [id number] 00:00:00 Test Item Value Reference Range Interpretation Comments GLUCOSE (test code = 2217) 109 MG/DL BUN (test code = 2208) 11 MG/DL CREATININE (test code = 2214) 0.68 MG/DL eGFR AMER. (test code 116 ML/MIN/1.73 = 41832) eGFR NON- AMER. (test 100 ML/MIN/1.73 code = 60287) CALC BUN/CREAT (test code = 16 RATIO [...] code = 2219) 29 U/L COMPREHENSIVE METABOLIC [id number] 00:00:00 Test Item Value Reference Range Interpretation Comments GLUCOSE (test code = 2217) 109 MG/DL BUN (test code = 2208) 11 MG/DL CREATININE (test code = 2214) 0.68 MG/DL eGFR AMER. (test code 116 ML/MIN/1.73 = 36399) eGFR NON- AMER. (test 100 ML/MIN/1.73 code = 35013) CALC BUN/CREAT (test code = 16 RATIO [...] = 2219) 29 U/L VITAMIN D, 25 [id number] 00:00:00 Test Item Value Reference Range Interpretation Comments VITAMIN D, 25 OH (test code = 4958) 20 NG/ML VITAMIN D, 25 [id number] 00:00:00 Test Item Value Reference Range Interpretation Comments VITAMIN D, 25 OH (test code = 4958) 20 NG/ML [id number] 00:00:00 Test Item Value Reference Range Interpretation Comments LITHIUM (test code = 203) 0.38 MEQ/L [id number] 00:00:00 Test Item Value Reference Range Interpretation Comments LITHIUM (test code = 203) 0.38 MEQ/L [id number] 00:00:00 Test Item Value Reference Range Interpretation Comments LITHIUM (test code = 2039) 0.38 MEQ/L THYROID II PROFILE (T3U, T4, T7, TSH)2020-10-05 00:00:00 Test Item Value Reference Range Interpretation Comments T-UPTAKE (test code = 2817) 30.2 % THYROX. BIND. CAPAC. (test code 1.1 = 66926) T4 (THYROXINE) (test code = 4.4 UG/DL 2819) CORRECTED T4 (FTI) (test code = 4.0 UG/DL 2820) TSH, THIRD GENERATION (test code 4.570 UIU/ML = 2821) THYROID II PROFILE (T3U, T4, T7, TSH)2020-10-05 00:00:00 Test Item Value Reference Range Interpretation Comments T-UPTAKE (test code = 2817) 30.2 % THYROX. BIND. CAPAC. (test code 1.1 = 16433) T4 (THYROXINE) (test code = 4.4 UG/DL 2819) CORRECTED T4 (FTI) (test code = 4.0 UG/DL 2820) TSH, THIRD GENERATION (test code 4.570 UIU/ML = 2821) CBC W/AUTO [id number] 00:00:00 Test Item Value Reference Range Interpretation [...] NUCLEATED RBCS (test code = 0.00 K/UL 77442) CBC W/AUTO [id number] 00:00:00 Test Item Value Reference Range Interpretation [...] NUCLEATED RBCS (test code = 0.00 K/UL 33141) CBC W/AUTO [id number] 00:00:00 Test Item Value Reference Range Interpretation [...] NUCLEATED RBCS (test code = 0.00 K/UL 87040) LIPID [id number] 00:00:00 Test Item Value Reference Range Interpretation Comments CHOLESTEROL (test code = 2210) 112 MG/DL TRIGLYCERIDES (test code = 2232) 140 MG/DL HDL CHOLESTEROL (test code = 2220) 34 MG/DL CALC LDL CHOL (test code = 2237) 56 MG/DL RISK RATIO LDL/HDL (test code = 1.65 RATIO 2238) LIPID [id number] 00:00:00 Test Item Value Reference Range Interpretation Comments CHOLESTEROL (test code = 2210) 112 MG/DL TRIGLYCERIDES (test code = 2232) 140 MG/DL HDL CHOLESTEROL (test code = 2220) 34 MG/DL CALC LDL CHOL (test code = 2237) 56 MG/DL RISK RATIO LDL/HDL (test code = 1.65 RATIO 2238) COMPREHENSIVE METABOLIC [id number] 00:00:00 Test Item Value Reference Range Interpretation Comments GLUCOSE (test code = 2217) 109 MG/DL BUN (test code = 2208) 11 MG/DL CREATININE (test code = 2214) 0.68 MG/DL eGFR AMER. (test code 116 ML/MIN/1.73 = 04217) eGFR NON- AMER. (test 100 ML/MIN/1.73 code = 99127) CALC BUN/CREAT (test code = 16 RATIO [...] code = 2219) 29 U/L COMPREHENSIVE METABOLIC [id number] 00:00:00 Test Item Value Reference Range Interpretation Comments GLUCOSE (test code = 2217) 109 MG/DL BUN (test code = 2208) 11 MG/DL CREATININE (test code = 2214) 0.68 MG/DL eGFR AMER. (test code 116 ML/MIN/1.73 = 84486) eGFR NON- AMER. (test 100 ML/MIN/1.73 code = 69298) CALC BUN/CREAT (test code = 16 RATIO [...] = 2219) 29 U/L VITAMIN D, 25 [id number] 00:00:00 Test Item Value Reference Range Interpretation Comments VITAMIN D, 25 OH (test code = 4958) 20 NG/ML VITAMIN D, 25 [id number] 00:00:00 Test Item Value Reference Range Interpretation Comments VITAMIN D, 25 OH (test code = 4958) 20 NG/ML [id number] 00:00:00 Test Item Value Reference Range Interpretation Comments LITHIUM (test code = 2038) 0.38 MEQ/L [id number] 00:00:00 Test Item Value Reference Range Interpretation Comments LITHIUM (test code = 2038) 0.38 MEQ/L [id number] 00:00:00 Test Item Value Reference Range Interpretation Comments LITHIUM (test code = 2038) 0.38 MEQ/L THYROID II PROFILE (T3U, T4, T7, TSH)2020-10-05 00:00:00 Test Item Value Reference Range Interpretation Comments T-UPTAKE (test code = 2816) 30.2 % THYROX. BIND. CAPAC. (test code 1.1 = 57073) T4 (THYROXINE) (test code = 4.4 UG/DL 2819) CORRECTED T4 (FTI) (test code = 4.0 UG/DL 2820) TSH, THIRD GENERATION (test code 4.570 UIU/ML = 2821) THYROID II PROFILE (T3U, T4, T7, TSH)2020-10-05 00:00:00 Test Item Value Reference Range Interpretation Comments T-UPTAKE (test code = 2816) 30.2 % THYROX. BIND. CAPAC. (test code 1.1 = 45100) T4 (THYROXINE) (test code = 4.4 UG/DL 2819) CORRECTED T4 (FTI) (test code = 4.0 UG/DL 2820) TSH, THIRD GENERATION (test code 4.570 UIU/ML = 2821) CBC W/AUTO [id number] 00:00:00 Test Item Value Reference Range Interpretation [...] NUCLEATED RBCS (test code = 0.00 K/UL 44905) CBC W/AUTO [id number] 00:00:00 Test Item Value Reference Range Interpretation [...] NUCLEATED RBCS (test code = 0.00 K/UL 56568) CBC W/AUTO [id number] 00:00:00 Test Item Value Reference Range Interpretation [...] NUCLEATED RBCS (test code = 0.00 K/UL 19996) CBC W/AUTO [id number] 00:00:00 Test Item Value Reference Range Interpretation [...] NUCLEATED RBCS (test code = 0.00 K/UL 32973) CBC W/AUTO [id number] 00:00:00 Test Item Value Reference Range Interpretation [...] NUCLEATED RBCS (test code = 0.00 K/UL 98778) VITAMIN D, 25 [id number] 00:00:00 Test Item Value Reference Range Interpretation Comments VITAMIN D, 25 OH (test code = 4958) 25 NG/ML [id number] 00:00:00 Test Item Value Reference Range Interpretation Comments LITHIUM (test code = 2038) 0.31 MEQ/L [id number] 00:00:00 Test Item Value Reference Range Interpretation Comments TSH, THIRD GENERATION (test code 2.180 UIU/ML = 2821) [id number] 00:00:00 Test Item Value Reference Range Interpretation Comments TSH, THIRD GENERATION (test code 2.180 UIU/ML = 2821) [id number] 00:00:00 Test Item Value Reference Range Interpretation Comments TSH, THIRD GENERATION (test code 2.180 UIU/ML = 2821) [id number] 00:00:00 Test Item Value Reference Range Interpretation Comments TSH, THIRD GENERATION (test code 2.180 UIU/ML = 2821) [id number] 00:00:00 Test Item Value Reference Range Interpretation Comments LITHIUM (test code = 2038) 0.31 MEQ/L VITAMIN D, 25 [id number] 00:00:00 Test Item Value Reference Range Interpretation Comments VITAMIN D, 25 OH (test code = 4958) 25 NG/ML VITAMIN D, 25 [id number] 00:00:00 Test Item Value Reference Range Interpretation Comments VITAMIN D, 25 OH (test code = 4958) 25 NG/ML [id number] 00:00:00 Test Item Value Reference Range Interpretation Comments LITHIUM (test code = 2038) 0.31 MEQ/L [id number] 00:00:00 Test Item Value Reference Range Interpretation Comments LITHIUM (test code = 2038) 0.31 MEQ/L [id number] 00:00:00 Test Item Value Reference Range Interpretation Comments TSH, THIRD GENERATION (test code 2.180 UIU/ML = 2821) [id number] 00:00:00 Test Item Value Reference Range Interpretation Comments TSH, THIRD GENERATION (test code 2.180 UIU/ML = 2821) [id number] 00:00:00 Test Item Value Reference Range Interpretation Comments TSH, THIRD GENERATION (test code 2.180 UIU/ML = 2821) [id number] 00:00:00 Test Item Value Reference Range Interpretation Comments LITHIUM (test code = 2038) 0.31 MEQ/L VITAMIN D, 25 [id number] 00:00:00 Test Item Value Reference Range Interpretation Comments VITAMIN D, 25 OH (test code = 4958) 25 NG/ML VITAMIN D, 25 [id number] 00:00:00 Test Item Value Reference Range Interpretation Comments VITAMIN D, 25 OH (test code = 4958) 25 NG/ML [id number] 00:00:00 Test Item Value Reference Range Interpretation Comments LITHIUM (test code = 2038) 0.31 MEQ/L [id number] 00:00:00 Test Item Value Reference Range Interpretation Comments LITHIUM (test code = 2038) 0.31 MEQ/L [id number] 00:00:00 Test Item Value Reference Range Interpretation Comments TSH, THIRD GENERATION (test code 2.180 UIU/ML = 2821) [id number] 00:00:00 Test Item Value Reference Range Interpretation Comments TSH, THIRD GENERATION (test code 2.180 UIU/ML = 2821) [id number] 00:00:00 Test Item Value Reference Range Interpretation Comments TSH, THIRD GENERATION (test code 2.180 UIU/ML = 2821) [id number] 00:00:00 Test Item Value Reference Range Interpretation Comments LITHIUM (test code = 2038) 0.31 MEQ/L VITAMIN D, 25 [id number] 00:00:00 Test Item Value Reference Range Interpretation Comments VITAMIN D, 25 OH (test code = 4958) 25 NG/ML VITAMIN D, 25 [id number] 00:00:00 Test Item Value Reference Range Interpretation Comments VITAMIN D, 25 OH (test code = 4958) 25 NG/ML [id number] 00:00:00 Test Item Value Reference Range Interpretation Comments LITHIUM (test code = 2038) 0.31 MEQ/L [id number] 00:00:00 Test Item Value Reference Range Interpretation Comments LITHIUM (test code = 2039) 0.31 MEQ/L [id number] 00:00:00 Test Item Value Reference Range Interpretation Comments TSH, THIRD GENERATION (test code 2.180 UIU/ML = 2821) [id number] 00:00:00 Test Item Value Reference Range Interpretation Comments TSH, THIRD GENERATION (test code 2.180 UIU/ML = 2821) [id number] 00:00:00 Test Item Value Reference Range Interpretation Comments TSH, THIRD GENERATION (test code 2.180 UIU/ML = 2821) [id number] 00:00:00 Test Item Value Reference Range Interpretation Comments LITHIUM (test code = 2038) 0.31 MEQ/L VITAMIN D, 25 [id number] 00:00:00 Test Item Value Reference Range Interpretation Comments VITAMIN D, 25 OH (test code = 4958) 25 NG/ML VITAMIN D, 25 [id number] 00:00:00 Test Item Value Reference Range Interpretation Comments VITAMIN D, 25 OH (test code = 4958) 25 NG/ML [id number] 00:00:00 Test Item Value Reference Range Interpretation Comments LITHIUM (test code = 203) 0.31 MEQ/L [id number] 00:00:00 Test Item Value Reference Range Interpretation Comments LITHIUM (test code = 2039) 0.31 MEQ/L [id number] 00:00:00 Test Item Value Reference Range Interpretation Comments TSH, THIRD GENERATION (test code 2.180 UIU/ML = 2821) [id number] 00:00:00 Test Item Value Reference Range Interpretation Comments TSH, THIRD GENERATION (test code 2.180 UIU/ML = 2821) [id number] 00:00:00 Test Item Value Reference Range Interpretation Comments TSH, THIRD GENERATION (test code 2.180 UIU/ML = 2821) [id number] 00:00:00 Test Item Value Reference Range Interpretation Comments LITHIUM (test code = 2039) 0.31 MEQ/L VITAMIN D, 25 [id number] 00:00:00 Test Item Value Reference Range Interpretation Comments VITAMIN D, 25 OH (test code = 4958) 25 NG/ML VITAMIN D, 25 [id number] 00:00:00 Test Item Value Reference Range Interpretation Comments VITAMIN D, 25 OH (test code = 4958) 25 NG/ML [id number] 00:00:00 Test Item Value Reference Range Interpretation Comments LITHIUM (test code = 2038) 0.31 MEQ/L [id number] 00:00:00 Test Item Value Reference Range Interpretation Comments LITHIUM (test code = 2038) 0.31 MEQ/L [id number] 00:00:00 Test Item Value Reference Range Interpretation Comments TSH, THIRD GENERATION (test code 2.180 UIU/ML = 2821) [id number] 00:00:00 Test Item Value Reference Range Interpretation Comments TSH, THIRD GENERATION (test code 2.180 UIU/ML = 2821) [id number] 00:00:00 Test Item Value Reference Range Interpretation Comments TSH, THIRD GENERATION (test code 2.180 UIU/ML = 2821) [id number] 00:00:00 Test Item Value Reference Range Interpretation Comments LITHIUM (test code = 2038) 0.31 MEQ/L VITAMIN D, 25 [id number] 00:00:00 Test Item Value Reference Range Interpretation Comments VITAMIN D, 25 OH (test code = 4958) 25 NG/ML VITAMIN D, 25 [id number] 00:00:00 Test Item Value Reference Range Interpretation Comments VITAMIN D, 25 OH (test code = 4958) 25 NG/ML [id number] 00:00:00 Test Item Value Reference Range Interpretation Comments LITHIUM (test code = 2038) 0.31 MEQ/L [id number] 00:00:00 Test Item Value Reference Range Interpretation Comments LITHIUM (test code = 2038) 0.31 MEQ/L [id number] 00:00:00 Test Item Value Reference Range Interpretation Comments TSH, THIRD GENERATION (test code 2.180 UIU/ML = 2821) [id number] 00:00:00 Test Item Value Reference Range Interpretation Comments TSH, THIRD GENERATION (test code 2.180 UIU/ML = 2821) [id number] 00:00:00 Test Item Value Reference Range Interpretation Comments TSH, THIRD GENERATION (test code 2.180 UIU/ML = 2821) [id number] 00:00:00 Test Item Value Reference Range Interpretation Comments LITHIUM (test code = 2038) 0.31 MEQ/L VITAMIN D, 25 [id number] 00:00:00 Test Item Value Reference Range Interpretation Comments VITAMIN D, 25 OH (test code = 4958) 25 NG/ML VITAMIN D, 25 [id number] 00:00:00 Test Item Value Reference Range Interpretation Comments VITAMIN D, 25 OH (test code = 4958) 25 NG/ML [id number] 00:00:00 Test Item Value Reference Range Interpretation Comments LITHIUM (test code = 2038) 0.31 MEQ/L [id number] 00:00:00 Test Item Value Reference Range Interpretation Comments LITHIUM (test code = 2038) 0.31 MEQ/L [id number] 00:00:00 Test Item Value Reference Range Interpretation Comments TSH, THIRD GENERATION (test code 2.180 UIU/ML = 2821) [id number] 00:00:00 Test Item Value Reference Range Interpretation Comments TSH, THIRD GENERATION (test code 2.180 UIU/ML = 2821) [id number] 00:00:00 Test Item Value Reference Range Interpretation Comments TSH, THIRD GENERATION (test code 2.180 UIU/ML = 2821) [id number] 00:00:00 Test Item Value Reference Range Interpretation Comments LITHIUM (test code = 2038) 0.31 MEQ/L [id number] 00:00:00 Test Item Value Reference Range Interpretation Comments LITHIUM (test code = 2038) 0.31 MEQ/L VITAMIN D, 25 [id number] 00:00:00 Test Item Value Reference Range Interpretation Comments VITAMIN D, 25 OH (test code = 4958) 25 NG/ML VITAMIN D, 25 [id number] 00:00:00 Test Item Value Reference Range Interpretation Comments VITAMIN D, 25 OH (test code = 4958) 25 NG/ML [id number] 00:00:00 Test Item Value Reference Range Interpretation Comments LITHIUM (test code = 2038) 0.31 MEQ/L [id number] 00:00:00 Test Item Value Reference Range Interpretation Comments TSH, THIRD GENERATION (test code 2.180 UIU/ML = 2821) [id number] 00:00:00 Test Item Value Reference Range Interpretation Comments TSH, THIRD GENERATION (test code 2.180 UIU/ML = 2821) [id number] 00:00:00 Test Item Value Reference Range Interpretation Comments TSH, THIRD GENERATION (test code 2.180 UIU/ML = 2821) [id number] 00:00:00 Test Item Value Reference Range Interpretation Comments LITHIUM (test code = 2038) 0.31 MEQ/L VITAMIN D, 25 [id number] 00:00:00 Test Item Value Reference Range Interpretation Comments VITAMIN D, 25 OH (test code = 4958) 25 NG/ML VITAMIN D, 25 [id number] 00:00:00 Test Item Value Reference Range Interpretation Comments VITAMIN D, 25 OH (test code = 4958) 25 NG/ML [id number] 00:00:00 Test Item Value Reference Range Interpretation Comments LITHIUM (test code = 2038) 0.31 MEQ/L [id number] 00:00:00 Test Item Value Reference Range Interpretation Comments LITHIUM (test code = 2038) 0.31 MEQ/L [id number] 00:00:00 Test Item Value Reference Range Interpretation Comments TSH, THIRD GENERATION (test code 2.180 UIU/ML = 2821) [id number] 00:00:00 Test Item Value Reference Range Interpretation Comments TSH, THIRD GENERATION (test code 2.180 UIU/ML = 2821) [id number] 00:00:00 Test Item Value Reference Range Interpretation Comments TSH, THIRD GENERATION (test code 2.180 UIU/ML = 2821) [id number] 00:00:00 Test Item Value Reference Range Interpretation Comments LITHIUM (test code = 2038) 0.31 MEQ/L VITAMIN D, 25 [id number] 00:00:00 Test Item Value Reference Range Interpretation Comments VITAMIN D, 25 OH (test code = 4958) 25 NG/ML [id number] 00:00:00 Test Item Value Reference Range Interpretation Comments LITHIUM (test code = 2038) 0.31 MEQ/L VITAMIN D, 25 [id number] 00:00:00 Test Item Value Reference Range Interpretation Comments VITAMIN D, 25 OH (test code = 4958) 25 NG/ML [id number] 00:00:00 Test Item Value Reference Range Interpretation Comments LITHIUM (test code = 2039) 0.31 MEQ/L [id number] 00:00:00 Test Item Value Reference Range Interpretation Comments TSH, THIRD GENERATION (test code 2.180 UIU/ML = 2821) [id number] 00:00:00 Test Item Value Reference Range Interpretation Comments TSH, THIRD GENERATION (test code 2.180 UIU/ML = 2821) [id number] 00:00:00 Test Item Value Reference Range Interpretation Comments TSH, THIRD GENERATION (test code 2.180 UIU/ML = 2821) [id number] 00:00:00 Test Item Value Reference Range Interpretation Comments LITHIUM (test code = 203) 0.31 MEQ/L [id number] 00:00:00 Test Item Value Reference Range Interpretation Comments LITHIUM (test code = 203) 0.31 MEQ/L VITAMIN D, 25 [id number] 00:00:00 Test Item Value Reference Range Interpretation Comments VITAMIN D, 25 OH (test code = 4958) 25 NG/ML VITAMIN D, 25 [id number] 00:00:00 Test Item Value Reference Range Interpretation Comments VITAMIN D, 25 OH (test code = 4958) 25 NG/ML [id number] 00:00:00 Test Item Value Reference Range Interpretation Comments LITHIUM (test code = 203) 0.31 MEQ/L [id number] 00:00:00 Test Item Value Reference Range Interpretation Comments TSH, THIRD GENERATION (test code 2.180 UIU/ML = 2821) [id number] 00:00:00 Test Item Value Reference Range Interpretation Comments LITHIUM (test code = 203) 0.31 MEQ/L [id number] 00:00:00 Test Item Value Reference Range Interpretation Comments LITHIUM (test code = 2039) 0.27 MEQ/L [id number] 00:00:00 Test Item Value Reference Range Interpretation Comments LITHIUM (test code = 2039) 0.27 MEQ/L [id number] 00:00:00 Test Item Value Reference Range Interpretation Comments LITHIUM (test code = 203) 0.27 MEQ/L [id number] 00:00:00 Test Item Value Reference Range Interpretation Comments LITHIUM (test code = 2039) 0.27 MEQ/L [id number] 00:00:00 Test Item Value Reference Range Interpretation Comments LITHIUM (test code = 2039) 0.27 MEQ/L [id number] 00:00:00 Test Item Value Reference Range Interpretation Comments LITHIUM (test code = 2039) 0.27 MEQ/L [id number] 00:00:00 Test Item Value Reference Range Interpretation Comments LITHIUM (test code = 2039) 0.27 MEQ/L [id number] 00:00:00 Test Item Value Reference Range Interpretation Comments LITHIUM (test code = 203) 0.27 MEQ/L [id number] 00:00:00 Test Item Value Reference Range Interpretation Comments LITHIUM (test code = 2039) 0.27 MEQ/L [id number] 00:00:00 Test Item Value Reference Range Interpretation Comments LITHIUM (test code = 203) 0.27 MEQ/L [id number] 00:00:00 Test Item Value Reference Range Interpretation Comments LITHIUM (test code = 2039) 0.27 MEQ/L [id number] 00:00:00 Test Item Value Reference Range Interpretation Comments LITHIUM (test code = 2039) 0.27 MEQ/L [id number] 00:00:00 Test Item Value Reference Range Interpretation Comments LITHIUM (test code = 2039) 0.27 MEQ/L [id number] 00:00:00 Test Item Value Reference Range Interpretation Comments LITHIUM (test code = 2039) 0.27 MEQ/L [id number] 00:00:00 Test Item Value Reference Range Interpretation Comments LITHIUM (test code = 2039) 0.27 MEQ/L [id number] 00:00:00 Test Item Value Reference Range Interpretation Comments LITHIUM (test code = 2039) 0.27 MEQ/L [id number] 00:00:00 Test Item Value Reference Range Interpretation Comments LITHIUM (test code = 2039) 0.27 MEQ/L [id number] 00:00:00 Test Item Value Reference Range Interpretation Comments LITHIUM (test code = 2039) 0.27 MEQ/L [id number] 00:00:00 Test Item Value Reference Range Interpretation Comments LITHIUM (test code = 2039) 0.27 MEQ/L [id number] 00:00:00 Test Item Value Reference Range Interpretation Comments LITHIUM (test code = 2039) 0.27 MEQ/L [id number] 00:00:00 Test Item Value Reference Range Interpretation Comments LITHIUM (test code = 203) 0.27 MEQ/L [id number] 00:00:00 Test Item Value Reference Range Interpretation Comments LITHIUM (test code = 2039) 0.27 MEQ/L [id number] 00:00:00 Test Item Value Reference Range Interpretation Comments LITHIUM (test code = 203) 0.27 MEQ/L [id number] 00:00:00 Test Item Value Reference Range Interpretation Comments LITHIUM (test code = 2039) 0.27 MEQ/L [id number] 00:00:00 Test Item Value Reference Range Interpretation Comments LITHIUM (test code = 203) 0.27 MEQ/L [id number] 00:00:00 Test Item Value Reference Range Interpretation Comments LITHIUM (test code = 2039) 0.27 MEQ/L [id number] 00:00:00 Test Item Value Reference Range Interpretation Comments LITHIUM (test code = 2039) 0.27 MEQ/L [id number] 00:00:00 Test Item Value Reference Range Interpretation Comments LITHIUM (test code = 2039) 0.27 MEQ/L [id number] 00:00:00 Test Item Value Reference Range Interpretation Comments LITHIUM (test code = 2039) 0.27 MEQ/L [id number] 00:00:00 Test Item Value Reference Range Interpretation Comments LITHIUM (test code = 2039) 0.27 MEQ/L [id number] 00:00:00 Test Item Value Reference Range Interpretation Comments LITHIUM (test code = 2039) 0.27 MEQ/L [id number] 00:00:00 Test Item Value Reference Range Interpretation Comments LITHIUM (test code = 2039) 0.27 MEQ/L [id number] 00:00:00 Test Item Value Reference Range Interpretation Comments LITHIUM (test code = 2039) 0.27 MEQ/L [id number] 00:00:00 Test Item Value Reference Range Interpretation Comments LITHIUM (test code = 2039) 0.27 MEQ/L [id number] 00:00:00 Test Item Value Reference Range Interpretation Comments LITHIUM (test code = 2039) 0.27 MEQ/L LIPID [id number] 00:00:00 Test Item Value Reference Range Interpretation Comments CHOLESTEROL (test code = 2210) 121 MG/DL TRIGLYCERIDES (test code = 2232) 72 MG/DL HDL CHOLESTEROL (test code = 2220) 49 MG/DL CALC LDL CHOL (test code = 2237) 57 MG/DL RISK RATIO LDL/HDL (test code = 1.16 RATIO 2238) LIPID [id number] 00:00:00 Test Item Value Reference Range Interpretation Comments CHOLESTEROL (test code = 2210) 121 MG/DL TRIGLYCERIDES (test code = 2232) 72 MG/DL HDL CHOLESTEROL (test code = 2220) 49 MG/DL CALC LDL CHOL (test code = 2237) 57 MG/DL RISK RATIO LDL/HDL (test code = 1.16 RATIO 2238) LIPID [id number] 00:00:00 Test Item Value Reference Range Interpretation Comments CHOLESTEROL (test code = 2210) 121 MG/DL TRIGLYCERIDES (test code = 2232) 72 MG/DL HDL CHOLESTEROL (test code = 2220) 49 MG/DL CALC LDL CHOL (test code = 2237) 57 MG/DL RISK RATIO LDL/HDL (test code = 1.16 RATIO 2238) [id number] 00:00:00 Test Item Value Reference Range Interpretation Comments TSH, THIRD GENERATION (test code 3.230 UIU/ML = 2821) [id number] 00:00:00 Test Item Value Reference Range Interpretation Comments TSH, THIRD GENERATION (test code 3.230 UIU/ML = 2821) [id number] 00:00:00 Test Item Value Reference Range Interpretation Comments TSH, THIRD GENERATION (test code 3.230 UIU/ML = 2821) [id number] 00:00:00 Test Item Value Reference Range Interpretation Comments MAGNESIUM (test code = 2226) 2.2 MG/DL [id number] 00:00:00 Test Item Value Reference Range Interpretation Comments MAGNESIUM (test code = 2226) 2.2 MG/DL [id number] 00:00:00 Test Item Value Reference Range Interpretation Comments MAGNESIUM (test code = 2226) 2.2 MG/DL VITAMIN [id number] 00:00:00 Test Item Value Reference Range Interpretation Comments VITAMIN B-12 (test code = 2840) 345 PG/ML VITAMIN [id number] 00:00:00 Test Item Value Reference Range Interpretation Comments VITAMIN B-12 (test code = 2840) 345 PG/ML [id number] 00:00:00 Test Item Value Reference Range Interpretation Comments TSH, THIRD GENERATION (test code 3.230 UIU/ML = 2821) VITAMIN [id number] 00:00:00 Test Item Value Reference Range Interpretation Comments VITAMIN B-12 (test code = 2840) 345 PG/ML VITAMIN D, 25 [id number] 00:00:00 Test Item Value Reference Range Interpretation Comments VITAMIN D, 25 OH (test code = 4958) 18 NG/ML VITAMIN D, 25 [id number] 00:00:00 Test Item Value Reference Range Interpretation Comments VITAMIN D, 25 OH (test code = 4958) 18 NG/ML [id number] 00:00:00 Test Item Value Reference Range Interpretation Comments TSH, THIRD GENERATION (test code 3.230 UIU/ML = 2821) [id number] 00:00:00 Test Item Value Reference Range Interpretation Comments MAGNESIUM (test code = 2226) 2.2 MG/DL [id number] 00:00:00 Test Item Value Reference Range Interpretation Comments MAGNESIUM (test code = 2226) 2.2 MG/DL VITAMIN [id number] 00:00:00 Test Item Value Reference Range Interpretation Comments VITAMIN B-12 (test code = 2840) 345 PG/ML VITAMIN [id number] 00:00:00 Test Item Value Reference Range Interpretation Comments VITAMIN B-12 (test code = 2840) 345 PG/ML VITAMIN D, 25 [id number] 00:00:00 Test Item Value Reference Range Interpretation Comments VITAMIN D, 25 OH (test code = 4958) 18 NG/ML COMPREHENSIVE METABOLIC [id number] 00:00:00 Test Item Value Reference Range Interpretation Comments GLUCOSE (test code = 2217) 92 MG/DL BUN (test code = 2208) 8 MG/DL CREATININE (test code = 2214) 0.78 MG/DL eGFR AMER. (test code 101 ML/MIN/1.73 = 35157) eGFR NON- AMER. (test 87 ML/MIN/1.73 code = 61630) CALC BUN/CREAT (test code = 10 RATIO [...] code = 2219) 60 U/L COMPREHENSIVE METABOLIC [id number] 00:00:00 Test Item Value Reference Range Interpretation Comments GLUCOSE (test code = 2217) 92 MG/DL BUN (test code = 2208) 8 MG/DL CREATININE (test code = 2214) 0.78 MG/DL eGFR AMER. (test code 101 ML/MIN/1.73 = 99433) eGFR NON- AMER. (test 87 ML/MIN/1.73 code = 93579) CALC BUN/CREAT (test code = 10 RATIO [...] (test code = 2219) 60 U/L LIPID [id number] 00:00:00 Test Item Value Reference Range Interpretation Comments CHOLESTEROL (test code = 2210) 121 MG/DL TRIGLYCERIDES (test code = 2232) 72 MG/DL HDL CHOLESTEROL (test code = 2220) 49 MG/DL CALC LDL CHOL (test code = 2237) 57 MG/DL RISK RATIO LDL/HDL (test code = 1.16 RATIO 2238) LIPID [id number] 00:00:00 Test Item Value Reference Range Interpretation Comments CHOLESTEROL (test code = 2210) 121 MG/DL TRIGLYCERIDES (test code = 2232) 72 MG/DL HDL CHOLESTEROL (test code = 2220) 49 MG/DL CALC LDL CHOL (test code = 2237) 57 MG/DL RISK RATIO LDL/HDL (test code = 1.16 RATIO 2238) [id number] 00:00:00 Test Item Value Reference Range Interpretation Comments TSH, THIRD GENERATION (test code 3.230 UIU/ML = 2821) [id number] 00:00:00 Test Item Value Reference Range Interpretation Comments TSH, THIRD GENERATION (test code 3.230 UIU/ML = 2821) [id number] 00:00:00 Test Item Value Reference Range Interpretation Comments TSH, THIRD GENERATION (test code 3.230 UIU/ML = 2821) [id number] 00:00:00 Test Item Value Reference Range Interpretation Comments MAGNESIUM (test code = 2226) 2.2 MG/DL [id number] 00:00:00 Test Item Value Reference Range Interpretation Comments MAGNESIUM (test code = 2226) 2.2 MG/DL [id number] 00:00:00 Test Item Value Reference Range Interpretation Comments MAGNESIUM (test code = 2226) 2.2 MG/DL VITAMIN [id number] 00:00:00 Test Item Value Reference Range Interpretation Comments VITAMIN B-12 (test code = 2840) 345 PG/ML VITAMIN [id number] 00:00:00 Test Item Value Reference Range Interpretation Comments VITAMIN B-12 (test code = 2840) 345 PG/ML VITAMIN [id number] 00:00:00 Test Item Value Reference Range Interpretation Comments VITAMIN B-12 (test code = 2840) 345 PG/ML VITAMIN D, 25 [id number] 00:00:00 Test Item Value Reference Range Interpretation Comments VITAMIN D, 25 OH (test code = 4958) 18 NG/ML VITAMIN D, 25 [id number] 00:00:00 Test Item Value Reference Range Interpretation Comments VITAMIN D, 25 OH (test code = 4958) 18 NG/ML COMPREHENSIVE METABOLIC [id number] 00:00:00 Test Item Value Reference Range Interpretation Comments GLUCOSE (test code = 2217) 92 MG/DL BUN (test code = 2208) 8 MG/DL CREATININE (test code = 2214) 0.78 MG/DL eGFR AMER. (test code 101 ML/MIN/1.73 = 19105) eGFR NON- AMER. (test 87 ML/MIN/1.73 code = 60284) CALC BUN/CREAT (test code = 10 RATIO [...] code = 2219) 60 U/L COMPREHENSIVE METABOLIC [id number] 00:00:00 Test Item Value Reference Range Interpretation Comments GLUCOSE (test code = 2217) 92 MG/DL BUN (test code = 2208) 8 MG/DL CREATININE (test code = 2214) 0.78 MG/DL eGFR AMER. (test code 101 ML/MIN/1.73 = 06813) eGFR NON- AMER. (test 87 ML/MIN/1.73 code = 24318) CALC BUN/CREAT (test code = 10 RATIO [...] (test code = 2219) 60 U/L LIPID [id number] 00:00:00 Test Item Value Reference Range Interpretation Comments CHOLESTEROL (test code = 2210) 121 MG/DL TRIGLYCERIDES (test code = 2232) 72 MG/DL HDL CHOLESTEROL (test code = 2220) 49 MG/DL CALC LDL CHOL (test code = 2237) 57 MG/DL RISK RATIO LDL/HDL (test code = 1.16 RATIO 2238) LIPID [id number] 00:00:00 Test Item Value Reference Range Interpretation Comments CHOLESTEROL (test code = 2210) 121 MG/DL TRIGLYCERIDES (test code = 2232) 72 MG/DL HDL CHOLESTEROL (test code = 2220) 49 MG/DL CALC LDL CHOL (test code = 2237) 57 MG/DL RISK RATIO LDL/HDL (test code = 1.16 RATIO 2238) [id number] 00:00:00 Test Item Value Reference Range Interpretation Comments TSH, THIRD GENERATION (test code 3.230 UIU/ML = 2821) [id number] 00:00:00 Test Item Value Reference Range Interpretation Comments TSH, THIRD GENERATION (test code 3.230 UIU/ML = 2821) [id number] 00:00:00 Test Item Value Reference Range Interpretation Comments TSH, THIRD GENERATION (test code 3.230 UIU/ML = 2821) [id number] 00:00:00 Test Item Value Reference Range Interpretation Comments MAGNESIUM (test code = 2226) 2.2 MG/DL [id number] 00:00:00 Test Item Value Reference Range Interpretation Comments MAGNESIUM (test code = 2226) 2.2 MG/DL [id number] 00:00:00 Test Item Value Reference Range Interpretation Comments MAGNESIUM (test code = 2226) 2.2 MG/DL VITAMIN [id number] 00:00:00 Test Item Value Reference Range Interpretation Comments VITAMIN B-12 (test code = 2840) 345 PG/ML VITAMIN [id number] 00:00:00 Test Item Value Reference Range Interpretation Comments VITAMIN B-12 (test code = 2840) 345 PG/ML VITAMIN [id number] 00:00:00 Test Item Value Reference Range Interpretation Comments VITAMIN B-12 (test code = 2840) 345 PG/ML VITAMIN D, 25 [id number] 00:00:00 Test Item Value Reference Range Interpretation Comments VITAMIN D, 25 OH (test code = 4958) 18 NG/ML VITAMIN D, 25 [id number] 00:00:00 Test Item Value Reference Range Interpretation Comments VITAMIN D, 25 OH (test code = 4958) 18 NG/ML COMPREHENSIVE METABOLIC [id number] 00:00:00 Test Item Value Reference Range Interpretation Comments GLUCOSE (test code = 2217) 92 MG/DL BUN (test code = 2208) 8 MG/DL CREATININE (test code = 2214) 0.78 MG/DL eGFR AMER. (test code 101 ML/MIN/1.73 = 89808) eGFR NON- AMER. (test 87 ML/MIN/1.73 code = 46127) CALC BUN/CREAT (test code = 10 RATIO 2235) SODIUM (test code = 2231) 136 MEQ/L POTASSIUM (test code = 2228) 4.9 MEQ/L CHLORIDE (test code = 2215) 100 MEQ/L CARBON DIOXIDE (test code = 26 MEQ/L 6) CALCIUM (test code = 2209) 11.0 MG/DL [...] code = 2219) 60 U/L COMPREHENSIVE METABOLIC [id number] 00:00:00 Test Item Value Reference Range Interpretation Comments GLUCOSE (test code = 2217) 92 MG/DL BUN (test code = 2208) 8 MG/DL CREATININE (test code = 2214) 0.78 MG/DL eGFR AMER. (test code 101 ML/MIN/1.73 = 81020) eGFR NON- AMER. (test 87 ML/MIN/1.73 code = 87924) CALC BUN/CREAT (test code = 10 RATIO [...] (test code = 2219) 60 U/L LIPID [id number] 00:00:00 Test Item Value Reference Range Interpretation Comments CHOLESTEROL (test code = 2210) 121 MG/DL TRIGLYCERIDES (test code = 2232) 72 MG/DL HDL CHOLESTEROL (test code = 2220) 49 MG/DL CALC LDL CHOL (test code = 2237) 57 MG/DL RISK RATIO LDL/HDL (test code = 1.16 RATIO 2238) LIPID [id number] 00:00:00 Test Item Value Reference Range Interpretation Comments CHOLESTEROL (test code = 2210) 121 MG/DL TRIGLYCERIDES (test code = 2232) 72 MG/DL HDL CHOLESTEROL (test code = 2220) 49 MG/DL CALC LDL CHOL (test code = 2237) 57 MG/DL RISK RATIO LDL/HDL (test code = 1.16 RATIO 2238) [id number] 00:00:00 Test Item Value Reference Range Interpretation Comments TSH, THIRD GENERATION (test code 3.230 UIU/ML = 2821) [id number] 00:00:00 Test Item Value Reference Range Interpretation Comments TSH, THIRD GENERATION (test code 3.230 UIU/ML = 2821) [id number] 00:00:00 Test Item Value Reference Range Interpretation Comments TSH, THIRD GENERATION (test code 3.230 UIU/ML = 2821) [id number] 00:00:00 Test Item Value Reference Range Interpretation Comments MAGNESIUM (test code = 2226) 2.2 MG/DL [id number] 00:00:00 Test Item Value Reference Range Interpretation Comments MAGNESIUM (test code = 2226) 2.2 MG/DL [id number] 00:00:00 Test Item Value Reference Range Interpretation Comments MAGNESIUM (test code = 2226) 2.2 MG/DL VITAMIN [id number] 00:00:00 Test Item Value Reference Range Interpretation Comments VITAMIN B-12 (test code = 2840) 345 PG/ML VITAMIN [id number] 00:00:00 Test Item Value Reference Range Interpretation Comments VITAMIN B-12 (test code = 2840) 345 PG/ML VITAMIN [id number] 00:00:00 Test Item Value Reference Range Interpretation Comments VITAMIN B-12 (test code = 2840) 345 PG/ML VITAMIN D, 25 [id number] 00:00:00 Test Item Value Reference Range Interpretation Comments VITAMIN D, 25 OH (test code = 4958) 18 NG/ML VITAMIN D, 25 [id number] 00:00:00 Test Item Value Reference Range Interpretation Comments VITAMIN D, 25 OH (test code = 4958) 18 NG/ML COMPREHENSIVE METABOLIC [id number] 00:00:00 Test Item Value Reference Range Interpretation Comments GLUCOSE (test code = 2217) 92 MG/DL BUN (test code = 2208) 8 MG/DL CREATININE (test code = 2214) 0.78 MG/DL eGFR AMER. (test code 101 ML/MIN/1.73 = 48758) eGFR NON- AMER. (test 87 ML/MIN/1.73 code = 19906) CALC BUN/CREAT (test code = 10 RATIO [...] code = 2219) 60 U/L COMPREHENSIVE METABOLIC [id number] 00:00:00 Test Item Value Reference Range Interpretation Comments GLUCOSE (test code = 2217) 92 MG/DL BUN (test code = 2208) 8 MG/DL CREATININE (test code = 2214) 0.78 MG/DL eGFR AMER. (test code 101 ML/MIN/1.73 = 19535) eGFR NON- AMER. (test 87 ML/MIN/1.73 code = 63267) CALC BUN/CREAT (test code = 10 RATIO [...] (test code = 2219) 60 U/L LIPID [id number] 00:00:00 Test Item Value Reference Range Interpretation Comments CHOLESTEROL (test code = 2210) 121 MG/DL TRIGLYCERIDES (test code = 2232) 72 MG/DL HDL CHOLESTEROL (test code = 2220) 49 MG/DL CALC LDL CHOL (test code = 2237) 57 MG/DL RISK RATIO LDL/HDL (test code = 1.16 RATIO 2238) LIPID [id number] 00:00:00 Test Item Value Reference Range Interpretation Comments CHOLESTEROL (test code = 2210) 121 MG/DL TRIGLYCERIDES (test code = 2232) 72 MG/DL HDL CHOLESTEROL (test code = 2220) 49 MG/DL CALC LDL CHOL (test code = 2237) 57 MG/DL RISK RATIO LDL/HDL (test code = 1.16 RATIO 2238) [id number] 00:00:00 Test Item Value Reference Range Interpretation Comments TSH, THIRD GENERATION (test code 3.230 UIU/ML = 2821) [id number] 00:00:00 Test Item Value Reference Range Interpretation Comments TSH, THIRD GENERATION (test code 3.230 UIU/ML = 2821) [id number] 00:00:00 Test Item Value Reference Range Interpretation Comments TSH, THIRD GENERATION (test code 3.230 UIU/ML = 2821) [id number] 00:00:00 Test Item Value Reference Range Interpretation Comments MAGNESIUM (test code = 2226) 2.2 MG/DL [id number] 00:00:00 Test Item Value Reference Range Interpretation Comments MAGNESIUM (test code = 2226) 2.2 MG/DL [id number] 00:00:00 Test Item Value Reference Range Interpretation Comments MAGNESIUM (test code = 2226) 2.2 MG/DL VITAMIN [id number] 00:00:00 Test Item Value Reference Range Interpretation Comments VITAMIN B-12 (test code = 2840) 345 PG/ML VITAMIN [id number] 00:00:00 Test Item Value Reference Range Interpretation Comments VITAMIN B-12 (test code = 2840) 345 PG/ML VITAMIN [id number] 00:00:00 Test Item Value Reference Range Interpretation Comments VITAMIN B-12 (test code = 2840) 345 PG/ML VITAMIN D, 25 [id number] 00:00:00 Test Item Value Reference Range Interpretation Comments VITAMIN D, 25 OH (test code = 4958) 18 NG/ML VITAMIN D, 25 [id number] 00:00:00 Test Item Value Reference Range Interpretation Comments VITAMIN D, 25 OH (test code = 4958) 18 NG/ML COMPREHENSIVE METABOLIC [id number] 00:00:00 Test Item Value Reference Range Interpretation Comments GLUCOSE (test code = 2217) 92 MG/DL BUN (test code = 2208) 8 MG/DL CREATININE (test code = 2214) 0.78 MG/DL eGFR AMER. (test code 101 ML/MIN/1.73 = 58593) eGFR NON- AMER. (test 87 ML/MIN/1.73 code = 54635) CALC BUN/CREAT (test code = 10 RATIO [...] code = 2219) 60 U/L COMPREHENSIVE METABOLIC [id number] 00:00:00 Test Item Value Reference Range Interpretation Comments GLUCOSE (test code = 2217) 92 MG/DL BUN (test code = 2208) 8 MG/DL CREATININE (test code = 2214) 0.78 MG/DL eGFR AMER. (test code 101 ML/MIN/1.73 = 48644) eGFR NON- AMER. (test 87 ML/MIN/1.73 code = 93506) CALC BUN/CREAT (test code = 10 RATIO [...] (test code = 2219) 60 U/L LIPID [id number] 00:00:00 Test Item Value Reference Range Interpretation Comments CHOLESTEROL (test code = 2210) 121 MG/DL TRIGLYCERIDES (test code = 2232) 72 MG/DL HDL CHOLESTEROL (test code = 2220) 49 MG/DL CALC LDL CHOL (test code = 2237) 57 MG/DL RISK RATIO LDL/HDL (test code = 1.16 RATIO 2238) LIPID [id number] 00:00:00 Test Item Value Reference Range Interpretation Comments CHOLESTEROL (test code = 2210) 121 MG/DL TRIGLYCERIDES (test code = 2232) 72 MG/DL HDL CHOLESTEROL (test code = 2220) 49 MG/DL CALC LDL CHOL (test code = 2237) 57 MG/DL RISK RATIO LDL/HDL (test code = 1.16 RATIO 2238) [id number] 00:00:00 Test Item Value Reference Range Interpretation Comments TSH, THIRD GENERATION (test code 3.230 UIU/ML = 2821) [id number] 00:00:00 Test Item Value Reference Range Interpretation Comments TSH, THIRD GENERATION (test code 3.230 UIU/ML = 2821) [id number] 00:00:00 Test Item Value Reference Range Interpretation Comments TSH, THIRD GENERATION (test code 3.230 UIU/ML = 2821) [id number] 00:00:00 Test Item Value Reference Range Interpretation Comments MAGNESIUM (test code = 2226) 2.2 MG/DL [id number] 00:00:00 Test Item Value Reference Range Interpretation Comments MAGNESIUM (test code = 2226) 2.2 MG/DL [id number] 00:00:00 Test Item Value Reference Range Interpretation Comments MAGNESIUM (test code = 2226) 2.2 MG/DL VITAMIN [id number] 00:00:00 Test Item Value Reference Range Interpretation Comments VITAMIN B-12 (test code = 2840) 345 PG/ML VITAMIN [id number] 00:00:00 Test Item Value Reference Range Interpretation Comments VITAMIN B-12 (test code = 2840) 345 PG/ML VITAMIN [id number] 00:00:00 Test Item Value Reference Range Interpretation Comments VITAMIN B-12 (test code = 2840) 345 PG/ML VITAMIN D, 25 [id number] 00:00:00 Test Item Value Reference Range Interpretation Comments VITAMIN D, 25 OH (test code = 4958) 18 NG/ML VITAMIN D, 25 [id number] 00:00:00 Test Item Value Reference Range Interpretation Comments VITAMIN D, 25 OH (test code = 4958) 18 NG/ML COMPREHENSIVE METABOLIC [id number] 00:00:00 Test Item Value Reference Range Interpretation Comments GLUCOSE (test code = 2217) 92 MG/DL BUN (test code = 2208) 8 MG/DL CREATININE (test code = 2214) 0.78 MG/DL eGFR AMER. (test code 101 ML/MIN/1.73 = 09776) eGFR NON- AMER. (test 87 ML/MIN/1.73 code = 18330) CALC BUN/CREAT (test code = 10 RATIO [...] code = 2219) 60 U/L COMPREHENSIVE METABOLIC [id number] 00:00:00 Test Item Value Reference Range Interpretation Comments GLUCOSE (test code = 2217) 92 MG/DL BUN (test code = 2208) 8 MG/DL CREATININE (test code = 2214) 0.78 MG/DL eGFR AMER. (test code 101 ML/MIN/1.73 = 59459) eGFR NON- AMER. (test 87 ML/MIN/1.73 code = 55975) CALC BUN/CREAT (test code = 10 RATIO [...] (test code = 2219) 60 U/L LIPID [id number] 00:00:00 Test Item Value Reference Range Interpretation Comments CHOLESTEROL (test code = 2210) 121 MG/DL TRIGLYCERIDES (test code = 2232) 72 MG/DL HDL CHOLESTEROL (test code = 2220) 49 MG/DL CALC LDL CHOL (test code = 2237) 57 MG/DL RISK RATIO LDL/HDL (test code = 1.16 RATIO 2238) LIPID [id number] 00:00:00 Test Item Value Reference Range Interpretation Comments CHOLESTEROL (test code = 2210) 121 MG/DL TRIGLYCERIDES (test code = 2232) 72 MG/DL HDL CHOLESTEROL (test code = 2220) 49 MG/DL CALC LDL CHOL (test code = 2237) 57 MG/DL RISK RATIO LDL/HDL (test code = 1.16 RATIO 2238) [id number] 00:00:00 Test Item Value Reference Range Interpretation Comments TSH, THIRD GENERATION (test code 3.230 UIU/ML = 2821) [id number] 00:00:00 Test Item Value Reference Range Interpretation Comments TSH, THIRD GENERATION (test code 3.230 UIU/ML = 2821) [id number] 00:00:00 Test Item Value Reference Range Interpretation Comments TSH, THIRD GENERATION (test code 3.230 UIU/ML = 2821) [id number] 00:00:00 Test Item Value Reference Range Interpretation Comments MAGNESIUM (test code = 2226) 2.2 MG/DL [id number] 00:00:00 Test Item Value Reference Range Interpretation Comments MAGNESIUM (test code = 2226) 2.2 MG/DL [id number] 00:00:00 Test Item Value Reference Range Interpretation Comments MAGNESIUM (test code = 2226) 2.2 MG/DL VITAMIN [id number] 00:00:00 Test Item Value Reference Range Interpretation Comments VITAMIN B-12 (test code = 2840) 345 PG/ML VITAMIN [id number] 00:00:00 Test Item Value Reference Range Interpretation Comments VITAMIN B-12 (test code = 2840) 345 PG/ML VITAMIN [id number] 00:00:00 Test Item Value Reference Range Interpretation Comments VITAMIN B-12 (test code = 2840) 345 PG/ML VITAMIN D, 25 [id number] 00:00:00 Test Item Value Reference Range Interpretation Comments VITAMIN D, 25 OH (test code = 4958) 18 NG/ML VITAMIN D, 25 [id number] 00:00:00 Test Item Value Reference Range Interpretation Comments VITAMIN D, 25 OH (test code = 4958) 18 NG/ML COMPREHENSIVE METABOLIC [id number] 00:00:00 Test Item Value Reference Range Interpretation Comments GLUCOSE (test code = 2217) 92 MG/DL BUN (test code = 2208) 8 MG/DL CREATININE (test code = 2214) 0.78 MG/DL eGFR AMER. (test code 101 ML/MIN/1.73 = 20397) eGFR NON- AMER. (test 87 ML/MIN/1.73 code = 78373) CALC BUN/CREAT (test code = 10 RATIO [...] code = 2219) 60 U/L COMPREHENSIVE METABOLIC [id number] 00:00:00 Test Item Value Reference Range Interpretation Comments GLUCOSE (test code = 2217) 92 MG/DL BUN (test code = 2208) 8 MG/DL CREATININE (test code = 2214) 0.78 MG/DL eGFR AMER. (test code 101 ML/MIN/1.73 = 85809) eGFR NON- AMER. (test 87 ML/MIN/1.73 code = 02980) CALC BUN/CREAT (test code = 10 RATIO [...] (test code = 2219) 60 U/L LIPID [id number] 00:00:00 Test Item Value Reference Range Interpretation Comments CHOLESTEROL (test code = 2210) 121 MG/DL TRIGLYCERIDES (test code = 2232) 72 MG/DL HDL CHOLESTEROL (test code = 2220) 49 MG/DL CALC LDL CHOL (test code = 2237) 57 MG/DL RISK RATIO LDL/HDL (test code = 1.16 RATIO 2238) LIPID [id number] 00:00:00 Test Item Value Reference Range Interpretation Comments CHOLESTEROL (test code = 2210) 121 MG/DL TRIGLYCERIDES (test code = 2232) 72 MG/DL HDL CHOLESTEROL (test code = 2220) 49 MG/DL CALC LDL CHOL (test code = 2237) 57 MG/DL RISK RATIO LDL/HDL (test code = 1.16 RATIO 2238) [id number] 00:00:00 Test Item Value Reference Range Interpretation Comments TSH, THIRD GENERATION (test code 3.230 UIU/ML = 2821) [id number] 00:00:00 Test Item Value Reference Range Interpretation Comments TSH, THIRD GENERATION (test code 3.230 UIU/ML = 2821) [id number] 00:00:00 Test Item Value Reference Range Interpretation Comments TSH, THIRD GENERATION (test code 3.230 UIU/ML = 2821) [id number] 00:00:00 Test Item Value Reference Range Interpretation Comments MAGNESIUM (test code = 2226) 2.2 MG/DL [id number] 00:00:00 Test Item Value Reference Range Interpretation Comments MAGNESIUM (test code = 2226) 2.2 MG/DL [id number] 00:00:00 Test Item Value Reference Range Interpretation Comments MAGNESIUM (test code = 2226) 2.2 MG/DL VITAMIN [id number] 00:00:00 Test Item Value Reference Range Interpretation Comments VITAMIN B-12 (test code = 2840) 345 PG/ML VITAMIN [id number] 00:00:00 Test Item Value Reference Range Interpretation Comments VITAMIN B-12 (test code = 2840) 345 PG/ML VITAMIN [id number] 00:00:00 Test Item Value Reference Range Interpretation Comments VITAMIN B-12 (test code = 2840) 345 PG/ML VITAMIN D, 25 [id number] 00:00:00 Test Item Value Reference Range Interpretation Comments VITAMIN D, 25 OH (test code = 4958) 18 NG/ML VITAMIN D, 25 [id number] 00:00:00 Test Item Value Reference Range Interpretation Comments VITAMIN D, 25 OH (test code = 4958) 18 NG/ML COMPREHENSIVE METABOLIC [id number] 00:00:00 Test Item Value Reference Range Interpretation Comments GLUCOSE (test code = 2217) 92 MG/DL BUN (test code = 2208) 8 MG/DL CREATININE (test code = 2214) 0.78 MG/DL eGFR AMER. (test code 101 ML/MIN/1.73 = 74658) eGFR NON- AMER. (test 87 ML/MIN/1.73 code = 73860) CALC BUN/CREAT (test code = 10 RATIO 2235) SODIUM (test code = 2231) 136 MEQ/L POTASSIUM (test code = 2228) 4.9 MEQ/L CHLORIDE (test code = 2215) 100 MEQ/L CARBON DIOXIDE (test code = 26 MEQ/L 6) CALCIUM (test code = 2209) 11.0 MG/DL [...] code = 2219) 60 U/L COMPREHENSIVE METABOLIC [id number] 00:00:00 Test Item Value Reference Range Interpretation Comments GLUCOSE (test code = 2217) 92 MG/DL BUN (test code = 2208) 8 MG/DL CREATININE (test code = 2214) 0.78 MG/DL eGFR AMER. (test code 101 ML/MIN/1.73 = 52810) eGFR NON- AMER. (test 87 ML/MIN/1.73 code = 77561) CALC BUN/CREAT (test code = 10 RATIO [...] A/G RATIO (test code = 1.6 RATIO 223) BILIRUBIN, TOTAL (test code = 0.9 MG/DL 2206) ALKALINE PHOSPHATASE (test 104 U/L code = 2204) AST (test code = 2218) 37 U/L ALT (test code = 2219) 60 U/L LIPID [id number] 00:00:00 Test Item Value Reference Range Interpretation Comments CHOLESTEROL (test code = 2210) 121 MG/DL TRIGLYCERIDES (test code = 2232) 72 MG/DL HDL CHOLESTEROL (test code = 2220) 49 MG/DL CALC LDL CHOL (test code = 2237) 57 MG/DL RISK RATIO LDL/HDL (test code = 1.16 RATIO 2238) LIPID [id number] 00:00:00 Test Item Value Reference Range Interpretation Comments CHOLESTEROL (test code = 2210) 121 MG/DL TRIGLYCERIDES (test code = 2232) 72 MG/DL HDL CHOLESTEROL (test code = 2220) 49 MG/DL CALC LDL CHOL (test code = 2237) 57 MG/DL RISK RATIO LDL/HDL (test code = 1.16 RATIO 2238) [id number] 00:00:00 Test Item Value Reference Range Interpretation Comments TSH, THIRD GENERATION (test code 3.230 UIU/ML = 2821) [id number] 00:00:00 Test Item Value Reference Range Interpretation Comments TSH, THIRD GENERATION (test code 3.230 UIU/ML = 2821) [id number] 00:00:00 Test Item Value Reference Range Interpretation Comments TSH, THIRD GENERATION (test code 3.230 UIU/ML = 2821) [id number] 00:00:00 Test Item Value Reference Range Interpretation Comments MAGNESIUM (test code = 2226) 2.2 MG/DL [id number] 00:00:00 Test Item Value Reference Range Interpretation Comments MAGNESIUM (test code = 2226) 2.2 MG/DL [id number] 00:00:00 Test Item Value Reference Range Interpretation Comments MAGNESIUM (test code = 2226) 2.2 MG/DL VITAMIN [id number] 00:00:00 Test Item Value Reference Range Interpretation Comments VITAMIN B-12 (test code = 2840) 345 PG/ML VITAMIN [id number] 00:00:00 Test Item Value Reference Range Interpretation Comments VITAMIN B-12 (test code = 2840) 345 PG/ML VITAMIN [id number] 00:00:00 Test Item Value Reference Range Interpretation Comments VITAMIN B-12 (test code = 2840) 345 PG/ML VITAMIN D, 25 [id number] 00:00:00 Test Item Value Reference Range Interpretation Comments VITAMIN D, 25 OH (test code = 4958) 18 NG/ML VITAMIN D, 25 [id number] 00:00:00 Test Item Value Reference Range Interpretation Comments VITAMIN D, 25 OH (test code = 4958) 18 NG/ML COMPREHENSIVE METABOLIC [id number] 00:00:00 Test Item Value Reference Range Interpretation Comments GLUCOSE (test code = 2217) 92 MG/DL BUN (test code = 2208) 8 MG/DL CREATININE (test code = 2214) 0.78 MG/DL eGFR AMER. (test code 101 ML/MIN/1.73 = 44787) eGFR NON- AMER. (test 87 ML/MIN/1.73 code = 09485) CALC BUN/CREAT (test code = 10 RATIO [...] code = 2219) 60 U/L COMPREHENSIVE METABOLIC [id number] 00:00:00 Test Item Value Reference Range Interpretation Comments GLUCOSE (test code = 2217) 92 MG/DL BUN (test code = 2208) 8 MG/DL CREATININE (test code = 2214) 0.78 MG/DL eGFR AMER. (test code 101 ML/MIN/1.73 = 83097) eGFR NON- AMER. (test 87 ML/MIN/1.73 code = 55765) CALC BUN/CREAT (test code = 10 RATIO [...] (test code = 2219) 60 U/L LIPID [id number] 00:00:00 Test Item Value Reference Range Interpretation Comments CHOLESTEROL (test code = 2210) 121 MG/DL TRIGLYCERIDES (test code = 2232) 72 MG/DL HDL CHOLESTEROL (test code = 2220) 49 MG/DL CALC LDL CHOL (test code = 2237) 57 MG/DL RISK RATIO LDL/HDL (test code = 1.16 RATIO 2238) LIPID [id number] 00:00:00 Test Item Value Reference Range Interpretation Comments CHOLESTEROL (test code = 2210) 121 MG/DL TRIGLYCERIDES (test code = 2232) 72 MG/DL HDL CHOLESTEROL (test code = 2220) 49 MG/DL CALC LDL CHOL (test code = 2237) 57 MG/DL RISK RATIO LDL/HDL (test code = 1.16 RATIO 2238) [id number] 00:00:00 Test Item Value Reference Range Interpretation Comments TSH, THIRD GENERATION (test code 3.230 UIU/ML = 2821) [id number] 00:00:00 Test Item Value Reference Range Interpretation Comments TSH, THIRD GENERATION (test code 3.230 UIU/ML = 2821) [id number] 00:00:00 Test Item Value Reference Range Interpretation Comments TSH, THIRD GENERATION (test code 3.230 UIU/ML = 2821) [id number] 00:00:00 Test Item Value Reference Range Interpretation Comments MAGNESIUM (test code = 2226) 2.2 MG/DL [id number] 00:00:00 Test Item Value Reference Range Interpretation Comments MAGNESIUM (test code = 2226) 2.2 MG/DL [id number] 00:00:00 Test Item Value Reference Range Interpretation Comments MAGNESIUM (test code = 2226) 2.2 MG/DL VITAMIN [id number] 00:00:00 Test Item Value Reference Range Interpretation Comments VITAMIN B-12 (test code = 2840) 345 PG/ML VITAMIN [id number] 00:00:00 Test Item Value Reference Range Interpretation Comments VITAMIN B-12 (test code = 2840) 345 PG/ML VITAMIN [id number] 00:00:00 Test Item Value Reference Range Interpretation Comments VITAMIN B-12 (test code = 2840) 345 PG/ML VITAMIN D, 25 [id number] 00:00:00 Test Item Value Reference Range Interpretation Comments VITAMIN D, 25 OH (test code = 4958) 18 NG/ML VITAMIN D, 25 [id number] 00:00:00 Test Item Value Reference Range Interpretation Comments VITAMIN D, 25 OH (test code = 4958) 18 NG/ML COMPREHENSIVE METABOLIC [id number] 00:00:00 Test Item Value Reference Range Interpretation Comments GLUCOSE (test code = 2217) 92 MG/DL BUN (test code = 2208) 8 MG/DL CREATININE (test code = 2214) 0.78 MG/DL eGFR AMER. (test code 101 ML/MIN/1.73 = 55669) eGFR NON- AMER. (test 87 ML/MIN/1.73 code = 59230) CALC BUN/CREAT (test code = 10 RATIO [...] code = 2219) 60 U/L COMPREHENSIVE METABOLIC [id number] 00:00:00 Test Item Value Reference Range Interpretation Comments GLUCOSE (test code = 2217) 92 MG/DL BUN (test code = 2208) 8 MG/DL CREATININE (test code = 2214) 0.78 MG/DL eGFR AMER. (test code 101 ML/MIN/1.73 = 97767) eGFR NON- AMER. (test 87 ML/MIN/1.73 code = 59977) CALC BUN/CREAT (test code = 10 RATIO [...] (test code = 2219) 60 U/L LIPID [id number] 00:00:00 Test Item Value Reference Range Interpretation Comments CHOLESTEROL (test code = 2210) 121 MG/DL TRIGLYCERIDES (test code = 2232) 72 MG/DL HDL CHOLESTEROL (test code = 2220) 49 MG/DL CALC LDL CHOL (test code = 2237) 57 MG/DL RISK RATIO LDL/HDL (test code = 1.16 RATIO 2238) LIPID [id number] 00:00:00 Test Item Value Reference Range Interpretation Comments CHOLESTEROL (test code = 2210) 121 MG/DL TRIGLYCERIDES (test code = 2232) 72 MG/DL HDL CHOLESTEROL (test code = 2220) 49 MG/DL CALC LDL CHOL (test code = 2237) 57 MG/DL RISK RATIO LDL/HDL (test code = 1.16 RATIO 2238) [id number] 00:00:00 Test Item Value Reference Range Interpretation Comments TSH, THIRD GENERATION (test code 3.230 UIU/ML = 2821) [id number] 00:00:00 Test Item Value Reference Range Interpretation Comments TSH, THIRD GENERATION (test code 3.230 UIU/ML = 2821) [id number] 00:00:00 Test Item Value Reference Range Interpretation Comments TSH, THIRD GENERATION (test code 3.230 UIU/ML = 2821) [id number] 00:00:00 Test Item Value Reference Range Interpretation Comments MAGNESIUM (test code = 2226) 2.2 MG/DL [id number] 00:00:00 Test Item Value Reference Range Interpretation Comments MAGNESIUM (test code = 2226) 2.2 MG/DL [id number] 00:00:00 Test Item Value Reference Range Interpretation Comments MAGNESIUM (test code = 2226) 2.2 MG/DL VITAMIN [id number] 00:00:00 Test Item Value Reference Range Interpretation Comments VITAMIN B-12 (test code = 2840) 345 PG/ML VITAMIN [id number] 00:00:00 Test Item Value Reference Range Interpretation Comments VITAMIN B-12 (test code = 2840) 345 PG/ML VITAMIN [id number] 00:00:00 Test Item Value Reference Range Interpretation Comments VITAMIN B-12 (test code = 2840) 345 PG/ML VITAMIN D, 25 [id number] 00:00:00 Test Item Value Reference Range Interpretation Comments VITAMIN D, 25 OH (test code = 4958) 18 NG/ML VITAMIN D, 25 [id number] 00:00:00 Test Item Value Reference Range Interpretation Comments VITAMIN D, 25 OH (test code = 4958) 18 NG/ML COMPREHENSIVE METABOLIC [id number] 00:00:00 Test Item Value Reference Range Interpretation Comments GLUCOSE (test code = 2217) 92 MG/DL BUN (test code = 2208) 8 MG/DL CREATININE (test code = 2214) 0.78 MG/DL eGFR AMER. (test code 101 ML/MIN/1.73 = 51195) eGFR NON- AMER. (test 87 ML/MIN/1.73 code = 49471) CALC BUN/CREAT (test code = 10 RATIO 2235) SODIUM (test code = 2231) 136 MEQ/L POTASSIUM (test code = 2228) 4.9 MEQ/L CHLORIDE (test code = 2215) 100 MEQ/L CARBON DIOXIDE (test code = 26 MEQ/L 6) CALCIUM (test code = 2209) 11.0 MG/DL [...] code = 2219) 60 U/L COMPREHENSIVE METABOLIC [id number] 00:00:00 Test Item Value Reference Range Interpretation Comments GLUCOSE (test code = 2217) 92 MG/DL BUN (test code = 2208) 8 MG/DL CREATININE (test code = 2214) 0.78 MG/DL eGFR AMER. (test code 101 ML/MIN/1.73 = 42190) eGFR NON- AMER. (test 87 ML/MIN/1.73 code = 09175) CALC BUN/CREAT (test code = 10 RATIO [...] code = 2219) 60 U/L COMPREHENSIVE METABOLIC [id number] 00:00:00 Test Item Value Reference Range Interpretation Comments GLUCOSE (test code = 2217) 92 MG/DL BUN (test code = 2208) 8 MG/DL CREATININE (test code = 2214) 0.78 MG/DL eGFR AMER. (test code 101 ML/MIN/1.73 = 58854) eGFR NON- AMER. (test 87 ML/MIN/1.73 code = 26652) CALC BUN/CREAT (test code = 10 RATIO [...] ALT (test code = 2219) 60 U/L PAP TEST, THINPREP, [id number] 00:00:00 Test Item Value Reference Range Interpretation Comments SOURCE: (test code = Cervical/Endocervical 8001) SLIDES: (test code = 1 8011) LMP: (test code = 8021) SEE NOTE SPECIMEN ADEQUACY: (test (NOTE) code = 76041) INTERPRETATION: (test NILM/NO EPITH. code = 63985) ABNORMALITY;SEE BELOW OTHER COMMENTS: (test (NOTE) code = 8081) RIP TAILER: (test Yoselin Enrique CT (ASCP) code = 8101) LOCATION: (test code = (NOTE) 90744) CPT: (test code = 8140) (NOTE) PAP TEST, THINPREP, [id number] 00:00:00 Test Item Value Reference Range Interpretation Comments SOURCE: (test code = Cervical/Endocervical 8001) SLIDES: (test code = 1 8011) LMP: (test code = 8021) SEE NOTE SPECIMEN ADEQUACY: (test (NOTE) code = 24089) INTERPRETATION: (test NILM/NO EPITH. code = 85019) ABNORMALITY;SEE BELOW OTHER COMMENTS: (test (NOTE) code = 8081) RIP TAILER: (test Yoselinrolly Enrique CT (ASCP) code = 8101) LOCATION: (test code = (NOTE) 16486) CPT: (test code = 8140) (NOTE) HPV HIGH RISK WITH GENOTYPE, [id number] 00:00:00 Test Item Value Reference Range Interpretation Comments HPV HIGH RISK INTERP (test code = NEGATIVE 45817) HPV 16 (test code = 30260) NEGATIVE HPV 18 (test code = 83516) NEGATIVE HPV, HR, OTHER GENOTYPES (test code NEGATIVE = 94056) HPV HIGH RISK WITH GENOTYPE, [id number] 00:00:00 Test Item Value Reference Range Interpretation Comments HPV HIGH RISK INTERP (test code = NEGATIVE 83147) HPV 16 (test code = 72799) NEGATIVE HPV 18 (test code = 46514) NEGATIVE HPV, HR, OTHER GENOTYPES (test code NEGATIVE = 89038) HPV HIGH RISK WITH GENOTYPE, [id number] 00:00:00 Test Item Value Reference Range Interpretation Comments HPV HIGH RISK INTERP (test code = NEGATIVE 58933) HPV 16 (test code = 14272) NEGATIVE HPV 18 (test code = 50743) NEGATIVE HPV, HR, OTHER GENOTYPES (test code NEGATIVE = 24301) PAP TEST, THINPREP, [id number] 00:00:00 Test Item Value Reference Range Interpretation Comments SOURCE: (test code = Cervical/Endocervical 8001) SLIDES: (test code = 1 8011) LMP: (test code = 8021) SEE NOTE SPECIMEN ADEQUACY: (test (NOTE) code = 90719) INTERPRETATION: (test NILM/NO EPITH. code = 19805) ABNORMALITY;SEE BELOW OTHER COMMENTS: (test (NOTE) code = 8081) RIP TAILER: (test Yoselin Klaus CT (ASCP) code = 8101) LOCATION: (test code = (NOTE) 08158) CPT: (test code = 8140) (NOTE) PAP TEST, THINPREP, [id number] 00:00:00 Test Item Value Reference Range Interpretation Comments SOURCE: (test code = Cervical/Endocervical 8001) SLIDES: (test code = 1 8011) LMP: (test code = 8021) SEE NOTE SPECIMEN ADEQUACY: (test (NOTE) code = 67167) INTERPRETATION: (test NILM/NO EPITH. code = 36685) ABNORMALITY;SEE BELOW OTHER COMMENTS: (test (NOTE) code = 8081) RIP TAILER: (test Yoselinrolly Enrique CT (ASCP) code = 8101) LOCATION: (test code = (NOTE) 29771) CPT: (test code = 8140) (NOTE) HPV HIGH RISK WITH GENOTYPE, [id number] 00:00:00 Test Item Value Reference Range Interpretation Comments HPV HIGH RISK INTERP (test code = NEGATIVE 30792) HPV 16 (test code = 89084) NEGATIVE HPV 18 (test code = 38232) NEGATIVE HPV, HR, OTHER GENOTYPES (test code NEGATIVE = 22648) HPV HIGH RISK WITH GENOTYPE, [id number] 00:00:00 Test Item Value Reference Range Interpretation Comments HPV HIGH RISK INTERP (test code = NEGATIVE 79688) HPV 16 (test code = 94643) NEGATIVE HPV 18 (test code = 24239) NEGATIVE HPV, HR, OTHER GENOTYPES (test code NEGATIVE = 29726) PAP TEST, THINPREP, [id number] 00:00:00 Test Item Value Reference Range Interpretation Comments SOURCE: (test code = Cervical/Endocervical 8001) SLIDES: (test code = 1 8011) LMP: (test code = 8021) SEE NOTE SPECIMEN ADEQUACY: (test (NOTE) code = 21825) INTERPRETATION: (test NILM/NO EPITH. code = 37212) ABNORMALITY;SEE BELOW OTHER COMMENTS: (test (NOTE) code = 8081) RIP TAILER: (test Yoselin Enrique CT (ASCP) code = 8101) LOCATION: (test code = (NOTE) 97051) CPT: (test code = 8140) (NOTE) PAP TEST, THINPREP, [id number] 00:00:00 Test Item Value Reference Range Interpretation Comments SOURCE: (test code = Cervical/Endocervical 8001) SLIDES: (test code = 1 8011) LMP: (test code = 8021) SEE NOTE SPECIMEN ADEQUACY: (test (NOTE) code = 54707) INTERPRETATION: (test NILM/NO EPITH. code = 92795) ABNORMALITY;SEE BELOW OTHER COMMENTS: (test (NOTE) code = 8081) RIP TAILER: (test Yoselinrolly Enrique CT (ASCP) code = 8101) LOCATION: (test code = (NOTE) 13842) CPT: (test code = 8140) (NOTE) HPV HIGH RISK WITH GENOTYPE, [id number] 00:00:00 Test Item Value Reference Range Interpretation Comments HPV HIGH RISK INTERP (test code = NEGATIVE 67145) HPV 16 (test code = 53656) NEGATIVE HPV 18 (test code = 84021) NEGATIVE HPV, HR, OTHER GENOTYPES (test code NEGATIVE = 19613) HPV HIGH RISK WITH GENOTYPE, [id number] 00:00:00 Test Item Value Reference Range Interpretation Comments HPV HIGH RISK INTERP (test code = NEGATIVE 10304) HPV 16 (test code = 98614) NEGATIVE HPV 18 (test code = 50265) NEGATIVE HPV, HR, OTHER GENOTYPES (test code NEGATIVE = 92297) PAP TEST, THINPREP, [id number] 00:00:00 Test Item Value Reference Range Interpretation Comments SOURCE: (test code = Cervical/Endocervical 8001) SLIDES: (test code = 1 8011) LMP: (test code = 8021) SEE NOTE SPECIMEN ADEQUACY: (test (NOTE) code = 24331) INTERPRETATION: (test NILM/NO EPITH. code = 57561) ABNORMALITY;SEE BELOW OTHER COMMENTS: (test (NOTE) code = 8081) RIP TAILER: (test Yoselin Enrique CT (ASCP) code = 8101) LOCATION: (test code = (NOTE) 79434) CPT: (test code = 8140) (NOTE) PAP TEST, THINPREP, [id number] 00:00:00 Test Item Value Reference Range Interpretation Comments SOURCE: (test code = Cervical/Endocervical 8001) SLIDES: (test code = 1 8011) LMP: (test code = 8021) SEE NOTE SPECIMEN ADEQUACY: (test (NOTE) code = 60383) INTERPRETATION: (test NILM/NO EPITH. code = 09840) ABNORMALITY;SEE BELOW OTHER COMMENTS: (test (NOTE) code = 8081) RIP TAILER: (test Yoselin Enrique CT (ASCP) code = 8101) LOCATION: (test code = (NOTE) 87458) CPT: (test code = 8140) (NOTE) HPV HIGH RISK WITH GENOTYPE, [id number] 00:00:00 Test Item Value Reference Range Interpretation Comments HPV HIGH RISK INTERP (test code = NEGATIVE 18044) HPV 16 (test code = 05773) NEGATIVE HPV 18 (test code = 81606) NEGATIVE HPV, HR, OTHER GENOTYPES (test code NEGATIVE = 19107) HPV HIGH RISK WITH GENOTYPE, [id number] 00:00:00 Test Item Value Reference Range Interpretation Comments HPV HIGH RISK INTERP (test code = NEGATIVE 33306) HPV 16 (test code = 05351) NEGATIVE HPV 18 (test code = 40170) NEGATIVE HPV, HR, OTHER GENOTYPES (test code NEGATIVE = 30745) PAP TEST, THINPREP, [id number] 00:00:00 Test Item Value Reference Range Interpretation Comments SOURCE: (test code = Cervical/Endocervical 8001) SLIDES: (test code = 1 8011) LMP: (test code = 8021) SEE NOTE SPECIMEN ADEQUACY: (test (NOTE) code = 42549) INTERPRETATION: (test NILM/NO EPITH. code = 79955) ABNORMALITY;SEE BELOW OTHER COMMENTS: (test (NOTE) code = 8081) RIP TAILER: (test Yoselin Enrique CT (ASCP) code = 8101) LOCATION: (test code = (NOTE) 00715) CPT: (test code = 8140) (NOTE) PAP TEST, THINPREP, [id number] 00:00:00 Test Item Value Reference Range Interpretation Comments SOURCE: (test code = Cervical/Endocervical 8001) SLIDES: (test code = 1 8011) LMP: (test code = 8021) SEE NOTE SPECIMEN ADEQUACY: (test (NOTE) code = 44669) INTERPRETATION: (test NILM/NO EPITH. code = 93289) ABNORMALITY;SEE BELOW OTHER COMMENTS: (test (NOTE) code = 8081) RIP TAILER: (test LIGIA Haile (ASCP) code = 8101) LOCATION: (test code = (NOTE) 21025) CPT: (test code = 8140) (NOTE) HPV HIGH RISK WITH GENOTYPE, [id number] 00:00:00 Test Item Value Reference Range Interpretation Comments HPV HIGH RISK INTERP (test code = NEGATIVE 30940) HPV 16 (test code = 81840) NEGATIVE HPV 18 (test code = 17018) NEGATIVE HPV, HR, OTHER GENOTYPES (test code NEGATIVE = 36369) HPV HIGH RISK WITH GENOTYPE, [id number] 00:00:00 Test Item Value Reference Range Interpretation Comments HPV HIGH RISK INTERP (test code = NEGATIVE 72834) HPV 16 (test code = 63167) NEGATIVE HPV 18 (test code = 48265) NEGATIVE HPV, HR, OTHER GENOTYPES (test code NEGATIVE = 06412) PAP TEST, THINPREP, [id number] 00:00:00 Test Item Value Reference Range Interpretation Comments SOURCE: (test code = Cervical/Endocervical 8001) SLIDES: (test code = 1 8011) LMP: (test code = 8021) SEE NOTE SPECIMEN ADEQUACY: (test (NOTE) code = 45797) INTERPRETATION: (test NILM/NO EPITH. code = 69348) ABNORMALITY;SEE BELOW OTHER COMMENTS: (test (NOTE) code = 8081) RIP TAILER: (test LIGIA Haile (ASCP) code = 8101) LOCATION: (test code = (NOTE) 42990) CPT: (test code = 8140) (NOTE) PAP TEST, THINPREP, [id number] 00:00:00 Test Item Value Reference Range Interpretation Comments SOURCE: (test code = Cervical/Endocervical 8001) SLIDES: (test code = 1 8011) LMP: (test code = 8021) SEE NOTE SPECIMEN ADEQUACY: (test (NOTE) code = 74046) INTERPRETATION: (test NILM/NO EPITH. code = 74056) ABNORMALITY;SEE BELOW OTHER COMMENTS: (test (NOTE) code = 8081) RIP TAILER: (test LIGIA Haile (ASCP) code = 8101) LOCATION: (test code = (NOTE) 24127) CPT: (test code = 8140) (NOTE) HPV HIGH RISK WITH GENOTYPE, [id number] 00:00:00 Test Item Value Reference Range Interpretation Comments HPV HIGH RISK INTERP (test code = NEGATIVE 38002) HPV 16 (test code = 82812) NEGATIVE HPV 18 (test code = 01941) NEGATIVE HPV, HR, OTHER GENOTYPES (test code NEGATIVE = 85039) HPV HIGH RISK WITH GENOTYPE, [id number] 00:00:00 Test Item Value Reference Range Interpretation Comments HPV HIGH RISK INTERP (test code = NEGATIVE 32263) HPV 16 (test code = 73103) NEGATIVE HPV 18 (test code = 85016) NEGATIVE HPV, HR, OTHER GENOTYPES (test code NEGATIVE = 39897) PAP TEST, THINPREP, [id number] 00:00:00 Test Item Value Reference Range Interpretation Comments SOURCE: (test code = Cervical/Endocervical 8001) SLIDES: (test code = 1 8011) LMP: (test code = 8021) SEE NOTE SPECIMEN ADEQUACY: (test (NOTE) code = 18124) INTERPRETATION: (test NILM/NO EPITH. code = 39165) ABNORMALITY;SEE BELOW OTHER COMMENTS: (test (NOTE) code = 8081) RIP TAILER: (test LIGIA Haile (ASCP) code = 8101) LOCATION: (test code = (NOTE) 51979) CPT: (test code = 8140) (NOTE) PAP TEST, THINPREP, [id number] 00:00:00 Test Item Value Reference Range Interpretation Comments SOURCE: (test code = Cervical/Endocervical 8001) SLIDES: (test code = 1 8011) LMP: (test code = 8021) SEE NOTE SPECIMEN ADEQUACY: (test (NOTE) code = 04875) INTERPRETATION: (test NILM/NO EPITH. code = 80795) ABNORMALITY;SEE BELOW OTHER COMMENTS: (test (NOTE) code = 8081) RIP TAILER: (test Yoselin Enrique CT (ASCP) code = 8101) LOCATION: (test code = (NOTE) 68239) CPT: (test code = 8140) (NOTE) HPV HIGH RISK WITH GENOTYPE, [id number] 00:00:00 Test Item Value Reference Range Interpretation Comments HPV HIGH RISK INTERP (test code = NEGATIVE 00888) HPV 16 (test code = 05042) NEGATIVE HPV 18 (test code = 49428) NEGATIVE HPV, HR, OTHER GENOTYPES (test code NEGATIVE = 21358) HPV HIGH RISK WITH GENOTYPE, [id number] 00:00:00 Test Item Value Reference Range Interpretation Comments HPV HIGH RISK INTERP (test code = NEGATIVE 08121) HPV 16 (test code = 23092) NEGATIVE HPV 18 (test code = 73752) NEGATIVE HPV, HR, OTHER GENOTYPES (test code NEGATIVE = 67506) PAP TEST, THINPREP, [id number] 00:00:00 Test Item Value Reference Range Interpretation Comments SOURCE: (test code = Cervical/Endocervical 8001) SLIDES: (test code = 1 8011) LMP: (test code = 8021) SEE NOTE SPECIMEN ADEQUACY: (test (NOTE) code = 04570) INTERPRETATION: (test NILM/NO EPITH. code = 06285) ABNORMALITY;SEE BELOW OTHER COMMENTS: (test (NOTE) code = 8081) RIP TAILER: (test Yoselin EnriqueLIGIA (ASCP) code = 8101) LOCATION: (test code = (NOTE) 90822) CPT: (test code = 8140) (NOTE) PAP TEST, THINPREP, [id number] 00:00:00 Test Item Value Reference Range Interpretation Comments SOURCE: (test code = Cervical/Endocervical 8001) SLIDES: (test code = 1 8011) LMP: (test code = 8021) SEE NOTE SPECIMEN ADEQUACY: (test (NOTE) code = 17370) INTERPRETATION: (test NILM/NO EPITH. code = 42288) ABNORMALITY;SEE BELOW OTHER COMMENTS: (test (NOTE) code = 8081) RIP TAILER: (test Yoselin Klaus CT (ASCP) code = 8101) LOCATION: (test code = (NOTE) 98534) CPT: (test code = 8140) (NOTE) HPV HIGH RISK WITH GENOTYPE, [id number] 00:00:00 Test Item Value Reference Range Interpretation Comments HPV HIGH RISK INTERP (test code = NEGATIVE 61593) HPV 16 (test code = 56850) NEGATIVE HPV 18 (test code = 96597) NEGATIVE HPV, HR, OTHER GENOTYPES (test code NEGATIVE = 95753) HPV HIGH RISK WITH GENOTYPE, [id number] 00:00:00 Test Item Value Reference Range Interpretation Comments HPV HIGH RISK INTERP (test code = NEGATIVE 76876) HPV 16 (test code = 44977) NEGATIVE HPV 18 (test code = 23016) NEGATIVE HPV, HR, OTHER GENOTYPES (test code NEGATIVE = 66017) PAP TEST, THINPREP, [id number] 00:00:00 Test Item Value Reference Range Interpretation Comments SOURCE: (test code = Cervical/Endocervical 8001) SLIDES: (test code = 1 8011) LMP: (test code = 8021) SEE NOTE SPECIMEN ADEQUACY: (test (NOTE) code = 13448) INTERPRETATION: (test NILM/NO EPITH. code = 90755) ABNORMALITY;SEE BELOW OTHER COMMENTS: (test (NOTE) code = 8081) RIP TAILER: (test LIGIA Haile (ASCP) code = 8101) LOCATION: (test code = (NOTE) 09853) CPT: (test code = 8140) (NOTE) PAP TEST, THINPREP, [id number] 00:00:00 Test Item Value Reference Range Interpretation Comments SOURCE: (test code = Cervical/Endocervical 8001) SLIDES: (test code = 1 8011) LMP: (test code = 8021) SEE NOTE SPECIMEN ADEQUACY: (test (NOTE) code = 43651) INTERPRETATION: (test NILM/NO EPITH. code = 61655) ABNORMALITY;SEE BELOW OTHER COMMENTS: (test (NOTE) code = 8081) RIP TAILER: (test LIGIA Haile (ASCP) code = 8101) LOCATION: (test code = (NOTE) 93540) CPT: (test code = 8140) (NOTE) HPV HIGH RISK WITH GENOTYPE, [id number] 00:00:00 Test Item Value Reference Range Interpretation Comments HPV HIGH RISK INTERP (test code = NEGATIVE 90268) HPV 16 (test code = 50796) NEGATIVE HPV 18 (test code = 00152) NEGATIVE HPV, HR, OTHER GENOTYPES (test code NEGATIVE = 15493) HPV HIGH RISK WITH GENOTYPE, [id number] 00:00:00 Test Item Value Reference Range Interpretation Comments HPV HIGH RISK INTERP (test code = NEGATIVE 53121) HPV 16 (test code = 36640) NEGATIVE HPV 18 (test code = 13166) NEGATIVE HPV, HR, OTHER GENOTYPES (test code NEGATIVE = 88776) PAP TEST, THINPREP, [id number] 00:00:00 Test Item Value Reference Range Interpretation Comments SOURCE: (test code = Cervical/Endocervical 8001) SLIDES: (test code = 1 8011) LMP: (test code = 8021) SEE NOTE SPECIMEN ADEQUACY: (test (NOTE) code = 91281) INTERPRETATION: (test NILM/NO EPITH. code = 35471) ABNORMALITY;SEE BELOW OTHER COMMENTS: (test (NOTE) code = 8081) RIP TAILER: (test LIGIA Haile (ASCP) code = 8101) LOCATION: (test code = (NOTE) 20936) CPT: (test code = 8140) (NOTE) PAP TEST, THINPREP, [id number] 00:00:00 Test Item Value Reference Range Interpretation Comments SOURCE: (test code = Cervical/Endocervical 8001) SLIDES: (test code = 1 8011) LMP: (test code = 8021) SEE NOTE SPECIMEN ADEQUACY: (test (NOTE) code = 50593) INTERPRETATION: (test NILM/NO EPITH. code = 34184) ABNORMALITY;SEE BELOW OTHER COMMENTS: (test (NOTE) code = 8081) RIP TAILER: (test LIGIA Haile (ASCP) code = 8101) LOCATION: (test code = (NOTE) 77553) CPT: (test code = 8140) (NOTE) HPV HIGH RISK WITH GENOTYPE, [id number] 00:00:00 Test Item Value Reference Range Interpretation Comments HPV HIGH RISK INTERP (test code = NEGATIVE 93942) HPV 16 (test code = 95279) NEGATIVE HPV 18 (test code = 13624) NEGATIVE HPV, HR, OTHER GENOTYPES (test code NEGATIVE = 84535) HPV HIGH RISK WITH GENOTYPE, [id number] 00:00:00 Test Item Value Reference Range Interpretation Comments HPV HIGH RISK INTERP (test code = NEGATIVE 57155) HPV 16 (test code = 26172) NEGATIVE HPV 18 (test code = 46201) NEGATIVE HPV, HR, OTHER GENOTYPES (test code NEGATIVE = 94580) PAP TEST, THINPREP, [id number] 00:00:00 Test Item Value Reference Range Interpretation Comments SOURCE: (test code = Cervical/Endocervical 8001) SLIDES: (test code = 1 8011) LMP: (test code = 8021) SEE NOTE SPECIMEN ADEQUACY: (test (NOTE) code = 48205) INTERPRETATION: (test NILM/NO EPITH. code = 25466) ABNORMALITY;SEE BELOW OTHER COMMENTS: (test (NOTE) code = 8081) RIP TAILER: (test Yoselin Enrique CT (ASCP) code = 8101) LOCATION: (test code = (NOTE) 74545) CPT: (test code = 8140) (NOTE) PAP TEST, THINPREP, [id number] 00:00:00 Test Item Value Reference Range Interpretation Comments SOURCE: (test code = Cervical/Endocervical 8001) SLIDES: (test code = 1 8011) LMP: (test code = 8021) SEE NOTE SPECIMEN ADEQUACY: (test (NOTE) code = 66316) INTERPRETATION: (test NILM/NO EPITH. code = 83518) ABNORMALITY;SEE BELOW OTHER COMMENTS: (test (NOTE) code = 8081) RIP TAILER: (test Yoselin Enrique CT (ASCP) code = 8101) LOCATION: (test code = (NOTE) [address]) CPT: (test code = 8140) (NOTE) HPV HIGH RISK WITH GENOTYPE, [id number] 00:00:00 Test Item Value Reference Range Interpretation Comments HPV HIGH RISK INTERP (test code = NEGATIVE 51590) HPV 16 (test code = 94813) NEGATIVE HPV 18 (test code = 33214) NEGATIVE HPV, HR, OTHER GENOTYPES (test code NEGATIVE = 49793) HPV HIGH RISK WITH GENOTYPE, [id number] 00:00:00 Test Item Value Reference Range Interpretation Comments HPV HIGH RISK INTERP (test code = NEGATIVE 32016) HPV 16 (test code = 06944) NEGATIVE HPV 18 (test code = 61701) NEGATIVE HPV, HR, OTHER GENOTYPES (test code NEGATIVE = 43942) PAP TEST, THINPREP, [id number] 00:00:00 Test Item Value Reference Range Interpretation Comments SOURCE: (test code = Cervical/Endocervical 8001) SLIDES: (test code = 1 8011) LMP: (test code = 8021) SEE NOTE SPECIMEN ADEQUACY: (test (NOTE) code = 43259) INTERPRETATION: (test NILM/NO EPITH. code = 08909) ABNORMALITY;SEE BELOW OTHER COMMENTS: (test (NOTE) code = 8081) RIP TAILER: (test LIGIA Haile (ASCP) code = 8101) LOCATION: (test code = (NOTE) 96406) CPT: (test code = 8140) (NOTE) SARS-CoV-2 (COVID-19) by RT-PCR (HIGH RISK)2019-09-12 00:00:00 Test Item Value Reference Range Interpretation Comments SARS-CoV-2 INTERPRETATION (test NEGATIVE code = 40390) SOURCE (test code = 65493) NOT SPECIFIED SARS-CoV-2 (COVID-19) by RT-PCR (HIGH RISK)2019-09-12 00:00:00 Test Item Value Reference Range Interpretation Comments SARS-CoV-2 INTERPRETATION (test NEGATIVE code = 51130) SOURCE (test code = 36084) NOT SPECIFIED SARS-CoV-2 (COVID-19) by RT-PCR (HIGH RISK)2019-09-12 00:00:00 Test Item Value Reference Range Interpretation Comments SARS-CoV-2 INTERPRETATION (test NEGATIVE code = 01235) SOURCE (test code = 09434) NOT SPECIFIED SARS-CoV-2 (COVID-19) by RT-PCR (HIGH RISK)2019-09-12 00:00:00 Test Item Value Reference Range Interpretation Comments SARS-CoV-2 INTERPRETATION (test NEGATIVE code = 18491) SOURCE (test code = 34846) NOT SPECIFIED SARS-CoV-2 (COVID-19) by RT-PCR (HIGH RISK)2019-09-12 00:00:00 Test Item Value Reference Range Interpretation Comments SARS-CoV-2 INTERPRETATION (test NEGATIVE code = 68080) SOURCE (test code = 77917) NOT SPECIFIED SARS-CoV-2 (COVID-19) by RT-PCR (HIGH RISK)2019-09-12 00:00:00 Test Item Value Reference Range Interpretation Comments SARS-CoV-2 INTERPRETATION (test NEGATIVE code = 44490) SOURCE (test code = 04579) NOT SPECIFIED SARS-CoV-2 (COVID-19) by RT-PCR (HIGH RISK)2019-09-12 00:00:00 Test Item Value Reference Range Interpretation Comments SARS-CoV-2 INTERPRETATION (test NEGATIVE code = 52036) SOURCE (test code = 48466) NOT SPECIFIED SARS-CoV-2 (COVID-19) by RT-PCR (HIGH RISK)2019-09-12 00:00:00 Test Item Value Reference Range Interpretation Comments SARS-CoV-2 INTERPRETATION (test NEGATIVE code = 49542) SOURCE (test code = 07327) NOT SPECIFIED SARS-CoV-2 (COVID-19) by RT-PCR (HIGH RISK)2019-09-12 00:00:00 Test Item Value Reference Range Interpretation Comments SARS-CoV-2 INTERPRETATION (test NEGATIVE code = 27298) SOURCE (test code = 12574) NOT SPECIFIED SARS-CoV-2 (COVID-19) by RT-PCR (HIGH RISK)2019-09-12 00:00:00 Test Item Value Reference Range Interpretation Comments SARS-CoV-2 INTERPRETATION (test NEGATIVE code = 21208) SOURCE (test code = 92151) NOT SPECIFIED SARS-CoV-2 (COVID-19) by RT-PCR (HIGH RISK)2019-09-12 00:00:00 Test Item Value Reference Range Interpretation Comments SARS-CoV-2 INTERPRETATION (test NEGATIVE code = 45033) SOURCE (test code = 92161) NOT SPECIFIED SARS-CoV-2 (COVID-19) by RT-PCR (HIGH RISK)2019-09-12 00:00:00 Test Item Value Reference Range Interpretation Comments SARS-CoV-2 INTERPRETATION (test NEGATIVE code = 45708) SOURCE (test code = 36304) NOT SPECIFIED SARS-CoV-2 (COVID-19) by RT-PCR (HIGH RISK)2019-09-12 00:00:00 Test Item Value Reference Range Interpretation Comments SARS-CoV-2 INTERPRETATION (test NEGATIVE code = 22309) SOURCE (test code = 64411) NOT SPECIFIED SARS-CoV-2 (COVID-19) by RT-PCR (HIGH RISK)2019-09-12 00:00:00 Test Item Value Reference Range Interpretation Comments SARS-CoV-2 INTERPRETATION (test NEGATIVE code = 00662) SOURCE (test code = 73338) NOT SPECIFIED SARS-CoV-2 (COVID-19) by RT-PCR (HIGH RISK)2019-09-12 00:00:00 Test Item Value Reference Range Interpretation Comments SARS-CoV-2 INTERPRETATION (test NEGATIVE code = 15428) SOURCE (test code = 84937) NOT SPECIFIED SARS-CoV-2 (COVID-19) by RT-PCR (HIGH RISK)2019-09-12 00:00:00 Test Item Value Reference Range Interpretation Comments SARS-CoV-2 INTERPRETATION (test NEGATIVE code = 50013) SOURCE (test code = 92768) NOT SPECIFIED SARS-CoV-2 (COVID-19) by RT-PCR (HIGH RISK)2019-09-12 00:00:00 Test Item Value Reference Range Interpretation Comments SARS-CoV-2 INTERPRETATION (test NEGATIVE code = 70066) SOURCE (test code = 22285) NOT SPECIFIED SARS-CoV-2 (COVID-19) by RT-PCR (HIGH RISK)2019-09-12 00:00:00 Test Item Value Reference Range Interpretation Comments SARS-CoV-2 INTERPRETATION (test NEGATIVE code = 77488) SOURCE (test code = 56084) NOT SPECIFIED SARS-CoV-2 (COVID-19) by RT-PCR (HIGH RISK)2019-09-12 00:00:00 Test Item Value Reference Range Interpretation Comments SARS-CoV-2 INTERPRETATION (test NEGATIVE code = 32822) SOURCE (test code = 13971) NOT SPECIFIED SARS-CoV-2 (COVID-19) by RT-PCR (HIGH RISK)2019-09-12 00:00:00 Test Item Value Reference Range Interpretation Comments SARS-CoV-2 INTERPRETATION (test NEGATIVE code = 42544) SOURCE (test code = 40355) NOT SPECIFIED SARS-CoV-2 (COVID-19) by RT-PCR (HIGH RISK)2019-09-12 00:00:00 Test Item Value Reference Range Interpretation Comments SARS-CoV-2 INTERPRETATION (test NEGATIVE code = 82743) SOURCE (test code = 96580) NOT SPECIFIED SARS-CoV-2 (COVID-19) by RT-PCR (HIGH RISK)2019-09-12 00:00:00 Test Item Value Reference Range Interpretation Comments SARS-CoV-2 INTERPRETATION (test NEGATIVE code = 08802) SOURCE (test code = 33632) NOT SPECIFIED SARS-CoV-2 (COVID-19) by RT-PCR (HIGH RISK)2019-09-12 00:00:00 Test Item Value Reference Range Interpretation Comments SARS-CoV-2 INTERPRETATION (test NEGATIVE code = 71064) SOURCE (test code = 47127) NOT SPECIFIED"
[2022-03-26 07:34] LABS: Absolute Lymphocytes (CBC) 1.2 K/uL (0.7-4.9); Hematocrit 41.7 % (36.0-45.0); Lymphocytes % 14.3 % (15.3-44.8); MCV 91.3 fL (80-100); MPV 7.6 fL (7.6-11.3); RBC Red Blood Cell Count 4.57 M/uL (3.86-4.86)
[2022-03-26 08:03] LABS: Magnesium 2.2 mg/dL (1.6-2.4); Potassium 4.4 mmol/L (3.5-5.1)
[2022-03-26 08:12] LABS: Troponin High Sensitivity 92.5 pg/mL (<58.9)
--- NOTE | 2022-03-26 09:27 | ER ---
Nurse's Notes [facility] Name: Jessica Wong Age: 56 yrs Sex: Female : 1965 Arrival Date: 03/26/2022 Time: 06:30 Bed 13 Private MD: Diagnosis: Chest pain, unspecified Presentation: 03/26 06:30 Chief complaint: Patient states: I "don't know if it is my heart or I 'm having a panic vc1 attack. They keep changing my bipolar meds so I took a gabapentin for the first time last night and I woke up having trouble breathing. I thought it was a panic attack to I took 0.5 mg of lorazepam and it didn't get any better so I took a nitro and it still didn't' get any better.". Coronavirus screen: Vaccine status: Patient reports being unvaccinated. Client denies travel out of the [place] in the last 14 days. difficulty breathing, shortness of breath, Client presents with at least one sign or symptom that may indicate coronavirus-19. Standard/surgical mask placed on the client. Provider contacted for isolation considerations. Ebola Screen: No symptoms or risks identified at this time. Risk Assessment: Do you want to hurt yourself or someone else? Patient reports no desire to harm self or others. Onset of symptoms was March 26, 2022 at 05:00. 06:30 Method Of Arrival: Ambulatory vc1 06:30 Acuity: [place] 3 vc1 06:44 Initial Sepsis Screen: Does the patient meet any 2 criteria? RR > 20 per min. No. vc1 Patient's initial sepsis screen is negative. Does the patient have a suspected source of infection? No. Patient's initial sepsis screen is negative. Triage Assessment: 06:42 General: Appears in no apparent distress. Behavior is cooperative, anxious. Pain: vc1 Denies pain. EENT: No deficits noted. Neuro: Level of Consciousness is awake, alert, obeys commands, Oriented to person, place, time, situation, Appropriate for age. Cardiovascular: Reports shortness of breath. Respiratory: Reports shortness of breath at rest Airway is patent Respiratory effort is even, unlabored, Respiratory pattern is symmetrical, tachypnea the patient has mild shortness of breath. GI: No deficits noted. No signs and/or symptoms were reported involving the gastrointestinal system. : No deficits noted. No signs and/or symptoms were reported regarding the genitourinary system. Derm: No deficits noted. No signs and/or symptoms reported regarding the dermatologic system. Musculoskeletal: No deficits noted. No signs and/or symptoms reported regarding the musculoskeletal system. 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 - Social history:: Smoking status: Patient reports the use of cigarette tobacco products, smokes one-half pack cigarettes per day. Screenin:38 [facility] ED Fall Risk Assessment (Adult) History of falling in the last 3 months, vc1 including since admission No falls in past 3 months (0 pts) Confusion or Disorientation No (0 pts) Intoxicated or Sedated No (0 pts) Impaired Gait No (0 pts) Mobility Assist Device Used No (0 pt) Altered Elimination No (0 pt) Score/Fall Risk Level 0 - 2 = Low Risk Oriented to surroundings, Maintained a safe environment, Educated pt \\T\\ family on fall prevention, incl call for assistance when getting out of bed. Abuse screen: Denies threats or abuse. Nutritional screening: No deficits noted. Tuberculosis screening: No symptoms or risk factors identified. Assessment: 08:44 General: Appears in no apparent distress. uncomfortable, Behavior is calm, cooperative, kr3 appropriate for age. 09:07 Neuro: Level of Consciousness is awake, alert, obeys commands, Oriented to person, kr3 place, time, situation. Cardiovascular: Patient's skin is warm and dry. 09:08 Respiratory: Airway is patent Respiratory effort is even, unlabored. GI: No signs kr3 and/or symptoms were reported involving the gastrointestinal system. : No signs and/or symptoms were reported regarding the genitourinary system. EENT: No signs and/or symptoms were reported regarding the EENT system. Derm: No signs and/or symptoms reported regarding the dermatologic system. Musculoskeletal: Circulation, motion, and sensation intact. Vital Signs: 06:30 Weight 99.79 kg; Height 5 ft. 2 in. (157.48 cm); Pain 0/10; vc1 06:43 BP 148 / 66; Pulse 74; Resp 22; Temp 98.9; Pulse Ox 96% on R/A; vc1 07:45 BP 96 / 48; Pulse 57; Resp 22; Pulse Ox 98% on R/A; kr3 08:45 BP 103 / 50; Pulse 66; Resp 22; Pulse Ox 99% on R/A; kr3 06:30 Body Mass Index 40.24 (99.79 kg, 157.48 cm) vc1 ED Course: 06:30 Patient arrived in ED. vc1 06:33 Triage completed. vc1 06:39 Arm band placed on right wrist. vc1 06:55 [facility]C [facility]. kb 06:55 Jose Alvarez MD is Attending Physician. kb 07:13 XRAY Chest (1 view) In Process Unspecified. EDMS 07:13 Kandy Reyes, CALI is Primary Nurse. kr3 07:20 Inserted saline lock: 22 gauge in right antecubital area, using aseptic technique. kr3 Blood collected. 09:26 Lenore Bhardwaj is Hospitalizing Provider. kb 09:26 Yefri Bhardwaj MD is Hospitalizing Provider. kb 19:49 No provider procedures requiring assistance completed. Patient admitted, IV remains in aa9 place. 19:50 Patient has correct armband on for positive identification. Bed in low position. Call aa9 light in reach. Side rails up X2. Administered Medications: 09:45 Drug: Aspirin Chewable Tablet 162 mg Route: PO; kr3 09:57 Follow up: Response: No adverse reaction kr3 10:42 Drug: Lasix (furosemide) 20 mg Route: IVP; Site: right antecubital; kr3 Medication: 06:44 VIS not applicable for this client. vc1 Outcome: 09:26 Decision to Hospitalize by Provider. kb 19:49 Admitted to ER Hold. Please see [facility] for further documentation. aa9 19:49 Condition: stable 19:49 Instructed on the need for admit. 03/28 16:43 Patient left the ED. eb Signatures: Dispatcher [employer] EDMS Katy Nolan, ELIER-C RIM TECHNICIAN-CkConcepcion Parks eb Evelina Reaves RN RN vc1 Galina Vazquez RN RN aa9 Kandy Reyes RN RN kr3 Corrections: (The following items were deleted from the chart) 03/26 06:37 06:33 Allergies: Codeine; vc1 vc1
--- NOTE | 2022-03-26 09:27 | EDPHYS ---
Physician Documentation [facility] Name: Jessica Wong Age: 56 yrs Sex: Female : 1965 Arrival Date: 03/26/2022 Time: 06:30 Bed 13 Private MD: ED Physician Jose Alvarez HPI: 03/26 07:06 This 56 yrs old Female presents to ER via Ambulatory with complaints of Shortness Of kb Breath. 07:06 The patient has shortness of breath at rest. Onset: The symptoms/episode began/occurred kb this morning. Duration: The symptoms are continuous. The patient's shortness of breath has no apparent modifying factors. Associated signs and symptoms: Pertinent positives: chest pain. Severity of symptoms: At their worst the symptoms were mild moderate in the emergency department the symptoms are unchanged. The patient has not experienced similar symptoms in the past. The patient has not recently seen a physician. Pt reports she woke up with shortness of breath this morning and chest pressure. States she took a gabapentin for the first time last night, felt lightheaded about an hour later. States she took 0.5mg of lorazapam and one nitro for the shortness of breath, but neither helped. "I don't know if this is a panic attack, side effect of the medication or something is wrong with my heart again.". 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 - Social history:: Smoking status: Patient reports the use of cigarette tobacco products, smokes one-half pack cigarettes per day. ROS: 07:09 Constitutional: Negative for fever, chills, and weight loss. kb 07:09 Cardiovascular: Positive for chest pain. 07:09 Respiratory: Positive for shortness of breath. 07:09 All other systems are negative. Exam: 07:09 Constitutional: This is a well developed, well nourished patient who is awake, alert, kb and in no acute distress. Head/Face: Normocephalic, atraumatic. ENT: Moist Mucous membranes Respiratory: Respirations even and unlabored. No increased work of breathing. Talking in full sentences Abdomen/GI: Soft, non-tender. No distention Skin: Warm, dry with normal turgor. Normal color. MS/ Extremity: Pulses equal, no cyanosis. Neurovascular intact. Full, normal range of motion. Neuro: Awake and alert, GCS 15, oriented to person, place, time, and situation. Moves all extremities. Normal gait. 07:09 Cardiovascular: Rate: normal, Rhythm: regular, Pulses: no pulse deficits are appreciated, Heart sounds: murmur. 07:27 ECG was reviewed by the Attending Physician. Vital Signs: 06:30 Weight 99.79 kg; Height 5 ft. 2 in. (157.48 cm); Pain 0/10; vc1 06:43 BP 148 / 66; Pulse 74; Resp 22; Temp 98.9; Pulse Ox 96% on R/A; vc1 07:45 BP 96 / 48; Pulse 57; Resp 22; Pulse Ox 98% on R/A; kr3 08:45 BP 103 / 50; Pulse 66; Resp 22; Pulse Ox 99% on R/A; kr3 06:30 Body Mass Index 40.24 (99.79 kg, 157.48 cm) vc1 MDM: 06:55 Patient medically screened. kb 07:09 Data reviewed: vital signs, nurses notes. Data interpreted: Pulse oximetry: on room air kb is 96 %. Interpretation: normal. 09:08 Counseling: I had a detailed discussion with the patient and/or guardian regarding: the kb historical points, exam findings, and any diagnostic results supporting the discharge/admit diagnosis, lab results, radiology results, the need for further work-up and treatment in the hospital. 09:26 Physician consultation: Yefri Bhardwaj MD was contacted at 09:26, regarding admission, kb to the telemetry unit. patient's condition, and will see patient in ED. 03/26 06:59 Order name: Basic Metabolic Panel; Complete Time: 08:12 kb 03/26 06:59 Order name: CBC with Diff; Complete Time: 07:44 kb 03/26 06:59 Order name: D-Dimer; Complete Time: 07:44 kb 03/26 06:59 Order name: Magnesium; Complete Time: 08:12 kb 03/26 06:59 Order name: NT PRO-BNP; Complete Time: 08:12 kb 03/26 06:59 Order name: Troponin HS; Complete Time: 08:12 kb 03/26 10:45 Order name: SARS RAPID; Complete Time: 13:24 jl7 03/26 14:40 Order name: Basic Metabolic Panel EDMS 03/26 14:40 Order name: Basic Metabolic Panel EDMS 03/26 14:40 Order name: CBC with Automated Diff EDMS 03/26 14:40 Order name: CBC with Automated Diff EDMS 03/26 14:40 Order name: Lipid Profile EDMS 03/26 14:40 Order name: Lipid Profile EDMS 03/26 14:40 Order name: T4 Free EDMS 03/26 06:59 Order name: XRAY Chest (1 view); Complete Time: 10:31 kb 03/26 14:40 Order name: Echo with Doppler EDMS 03/26 14:40 Order name: T4 Free EDMS 03/26 14:40 Order name: Thyroid Stimulating Hormone EDMS 03/26 14:40 Order name: Thyroid Stimulating Hormone EDMS 03/27 05:29 Order name: Protime (+INR) EDMS 03/27 05:29 Order name: PTT, Activated Partial Thromb EDMS 03/27 05:48 Order name: Basic Metabolic Panel EDMS 03/27 05:48 Order name: Liver (Hepatic) Function EDMS 03/27 05:48 Order name: Troponin High Sensitivity EDMS 03/27 05:48 Order name: NT PRO-BNP EDMS 03/27 05:48 Order name: T4 Free EDMS 03/27 05:48 Order name: Thyroid Stimulating Hormone EDMS 03/27 08:30 Order name: Hemoglobin A1c EDMS 03/27 11:26 Order name: NM EDMS 03/26 06:59 Order name: EKG; Complete Time: 07:00 kb 03/26 06:59 Order name: Cardiac monitoring; Complete Time: 07:26 kb 03/26 06:59 Order name: EKG - Nurse/Tech; Complete Time: 07:30 kb 03/26 06:59 Order name: IV Saline Lock; Complete Time: 07:26 kb 03/26 06:59 Order name: Labs collected and sent; Complete Time: 07:26 kb 03/26 06:59 Order name: O2 Per Protocol; Complete Time: 07:26 kb 03/26 06:59 Order name: O2 Sat Monitoring; Complete Time: 07:26 kb 03/26 14:40 Order name: Heart Healthy EDMS 03/28 14:08 Order name: Diet Heart Healthy; Complete Time: 14:08 eb EC: Rate is 60 beats/min. Rhythm is regular. Left axis deviation noted. SD interval is kb normal at 182 msec. QRS interval is normal at 158 msec. QT interval is normal at 456 msec. Administered Medications: 09:45 Drug: Aspirin Chewable Tablet 162 mg Route: PO; kr3 09:57 Follow up: Response: No adverse reaction kr3 10:42 Drug: Lasix (furosemide) 20 mg Route: IVP; Site: right antecubital; kr3 Disposition: 03/28 18:02 Co-signature as Attending Physician, Jose Alvarez MD I agree with the assessment and rt plan of care. Disposition Summary: 03/26/22 09:26 Hospitalization Ordered Hospitalization Status: Observation kb Provider: Yefri Bhardwaj Condition: Stable kb Problem: new kb Symptoms: are unchanged kb Bed/Room Type: Standard kb Location: [facility] ER HOLD(03/26/22 10:49) jl7 Room Assignment: ERHOLD-(03/26/22 10:49) jl7 Diagnosis - Chest pain, unspecified kb Forms: - Medication Reconciliation Form kb - SBAR form kb Signatures: Dispatcher [employer] EDMS Katy Nolan FNP-C FNP-Lizy De León RN RN jl7 Evelina Reaves RN RN 1 Kandy Reyes RN RN kr3 Jose Alvarez MD MD rt Corrections: (The following items were deleted from the chart) 03/26 06:37 06:33 Allergies: Codeine; vc1 vc1 10:49 09:26 Telemetry/MedSurg (observation) kb jl7 10:49 09:26 kb jl7
[2022-03-26] MEDS ORDERED: ASPIRIN 81 MG CHEWABLE TABLET ONE (09:39)
--- NOTE | 2022-03-26 10:26 | RAD REPORT ---
EXAM DESCRIPTION: RAD - Chest Single View - 03/26/2022 7:11 am CLINICAL HISTORY: CHEST PAIN Chest pain. COMPARISON: Chest Single View dated 03/05/2022; Chest Pa And Lat (2 Views) dated 02/28/2022; Chest Si ngle View dated 02/04/2017; Chest For Pe Angio dated 03/05/2022 FINDINGS: Portable technique limits examination quality. Mild pulmonary edema is seen. The heart is moderately enlarged in size. No displaced fractures. IMPRESSION: Mild CHF versus volume overload pattern.
[2022-03-26] MEDS ORDERED: FUROSEMIDE 20 MG/ 2ML VIAL ONE (10:38)
[2022-03-26 12:23] LABS: SARS-CoV-2 Antigen Rapid Res Negative (Negative)
[2022-03-26] MEDS ORDERED: ALPRAZOLAM 0.25 MG TABLET PO PRN (14:35)
[2022-03-26] MEDS ORDERED: MORPHINE 2 MG/ML SYR IV PRN (14:35)
[2022-03-26] MEDS ORDERED: ACETAMINOPHEN 500 MG TAB PO PRN (14:35)
[2022-03-26] MEDS ORDERED: ALPRAZOLAM 0.25 MG TABLET ONE ×2 (16:39→21:45)
[2022-03-26] MEDS: METOPROLOL TAR 25 MG TAB PO SCH ×2 (18:00→21:00)
--- NOTE | 2022-03-26 22:40 | P.HP ---
Certification for Inpatient Patient admitted to: Observation With expected LOS: <2 Midnights Patient will require the following post-hospital care: None Practitioner: I am a practitioner with admitting privileges, knowledge of patient current condition, hospital course, and medical plan of care. Services: Services provided to patient in accordance with Admission requirements found in Title 42 Section 412.3 of the Code of Federal Regulations Patient History Date of Service: 03/26/22 Reason for admission: Panic attack; dyspnea History of Present Illness: Patient is a 56-year-old female who comes into the emergency room with shortness of breath. She has been having some chest discomfort as well. Patient has history of bipolar disorder. She has been on lithium was switched over to abilify. She has wanted to lose some weight. They plan on switching over to lithium once again. She has been having some issues getting her medications readjusted. She follows up with a psychiatrist in [place]. She feels like she is having an anxiety attack. But the chest pain has gone away. She is still feeling some anxiety and gets a little short of breath with it. She will be admitted to the hospital for further evaluation. Allergies codeine Allergy (Unverified 02/04/17 08:10) Unknown oxycodone Allergy (Verified 03/05/22 07:28) Hives/Rash Penicillins Adverse Reaction (Verified 03/05/22 07:28) yeast infection Home Medications: Albuterol Sulfate 1 puff IH TID 03/05/22 Albuterol Sulfate [Proair Hfa] 1 puff IH Q4HP PRN 03/05/22 Aspirin [Aspirin EC 81 MG] 162 mg PO DAILY #60 tab 03/05/22 Atorvastatin Calcium 10 mg PO DAILY 03/05/22 Benzonatate 200 mg PO TID 03/05/22 Citalopram [Celexa*] 10 mg PO DAILY 03/05/22 Clopidogrel Bisulfate [Plavix*] 75 mg PO DAILY 03/05/22 Doxycycline Hyclate 100 mg PO BID 03/05/22 Gabapentin 100 mg PO DAILY 03/05/22 Hydroxyzine HCl [Atarax] 10 mg PO DAILY 03/05/22 Ipratropium/Albuterol Sulfate [Iprat-Albut 0.5-3(2.5) mg/3 ml] 1 puff IH TID 03/05/22 Levothyroxine Sodium [Levothyroxine] 75 mcg PO DAILY 03/05/22 Hysham Carbonate [Hysham Carbonate ER] 450 mg PO BID 03/05/22 Loratadine/Pseudoephedrine [Loratadine-D 12 Hour Tablet] 1 tab PO DAILY 03/05/22 Metoprolol Succinate [Toprol Xl*] 100 mg PO DAILY 03/05/22 hydroCHLOROthiazide [Hydrochlorothiazide] 25 mg PO DAILY 03/05/22 predniSONE [Prednisone] 10 mg PO DAILY 03/05/22 - Past Medical/Surgical History Diabetic: No -: Bipolar Disorder -: Atrial Fibrillation -: Diastolic CHF -: Hyperlipidemia -: Hodgkin's Lymphoma (1996) -: COPD -: x 2 -: Appendectomy Psychosocial/ Personal History: Patient lives at home. She has a son. - Family History Father Family History: Reviewed- Non-Contributory - Social History Smoking Status: Former smoker Alcohol use: No CD- Drugs: No Caffeine use: Yes Review of Systems 10-point ROS is otherwise unremarkable Physical Examination - Vital Signs Temperature: 98 F Blood Pressure: 106/50 Pulse: 79 Respirations: 18 Pulse Ox (%): 96 - Physical Exam General: Alert, In no apparent distress, Oriented x3 HEENT: Atraumatic, PERRLA, Mucous membr. moist/pink, EOMI, Sclerae nonicteric Neck: Supple, 2+ carotid pulse no bruit, No LAD, Without JVD or thyroid abnormality Respiratory: Clear to auscultation bilaterally, Normal air movement Cardiovascular: Regular rate/rhythm, Normal S1 S2, No murmurs Gastrointestinal: Normal bowel sounds, Soft and benign, Non-distended, No tenderness Musculoskeletal: No clubbing, No swelling, No tenderness Integumentary: No rashes Neurological: Normal gait, Normal speech, Normal strength at 5/5 x4 extr, Normal tone, Sensation intact, Cranial nerves 3-12 intact, Normal affect Lymphatics: No axilla or inguinal lymphadenopathy - Studies Laboratory Data (last 24 hrs) 03/26/22 07:25: WBC 8.50, Hgb 13.9, Hct 41.7, Plt Count 250 03/26/22 07:25: Sodium 139, Potassium 4.4, BUN 13, Creatinine 0.77, Glucose 112 H, Magnesium 2.2 Assessment & Plan - Problems (Diagnosis) (1) Anxiety attack Current Visit: Yes Status: Acute (2) History of CHF (congestive heart failure) Current Visit: Yes Status: Acute (3) History of atrial fibrillation Current Visit: Yes Status: Acute (4) Bipolar disorder Current Visit: No Status: Chronic Qualifiers: - Plan 1. Serial troponins and EKG 2. Cardiology consultation 3. Echocardiogram and stress test 4. Anti-platelet therapy, anticoagulation, beta-sweetie, statin, and O2 as needed 5. IV morphine for pain 6. Bipolar medication adjustments 7. Anxiolytics 8. GI/DVT prophylaxis Discharge Plan: Home Plan to discharge in: 24 Hours - Advance Directives Does patient have a Living Will: No Does patient have a Durable POA for Healthcare: No - Code Status/Comfort Care Code Status Assessed: Yes Code Status: Full Code Critical Care: No Time Spent Managing PTS Care (In Minutes): 45
[2022-03-27] MEDS: FUROSEMIDE 20 MG/ 2ML VIAL IV SCH ×3 (01:00→17:00)
[2022-03-27] MEDS ORDERED: FUROSEMIDE 20 MG/ 2ML VIAL ONE ×3 (01:27→18:44)
[2022-03-27 05:22] LABS: Absolute Lymphocytes (CBC) 1.7 K/uL (0.7-4.9); Hematocrit 42.7 % (36.0-45.0); Lymphocytes % 20.3 % (15.3-44.8); MCV 90.7 fL (80-100); MPV 7.5 fL (7.6-11.3); RBC Red Blood Cell Count 4.71 M/uL (3.86-4.86)
[2022-03-27 05:29] LABS: Protime INR 0.98
[2022-03-27 05:45] LABS: Albumin 3.3 g/dL (3.4-5.0); Bilirubin Direct 0.2 mg/dL (0-0.2); Bilirubin Total 0.7 mg/dL (0.2-1.0); Potassium 4.5 mmol/L (3.5-5.1); Protein, Total 6.6 g/dL (6.4-8.2); Thyroid Stimulating Hormone 1.33 uIU/mL (0.358-3.740)
[2022-03-27 05:48] LABS: Troponin High Sensitivity 90.7 pg/mL (<58.9)
[2022-03-27] MEDS ORDERED: ALPRAZOLAM 0.25 MG TABLET ONE (06:24)
[2022-03-27] MEDS: LEVOTHYROXINE SOD 0.075 MG TAB PO SCH (07:30)
[2022-03-27] MEDS: ASPIRIN EC 81 MG TAB PO SCH (08:02)
[2022-03-27] MEDS: LITHIUM CARBONATE 450 MG PO SCH ×2 (08:04→21:30)
[2022-03-27] MEDS: HYDROXYZINE HCL 10 MG/5 ML SYRUP UD PO SCH (08:14)
[2022-03-27] MEDS: CITALOPRAM 10 MG TABLET PO SCH (08:15)
[2022-03-27] MEDS: predniSONE 10 MG TAB PO SCH (08:15)
[2022-03-27] MEDS: BENZONATATE 100 MG CAP PO SCH ×3 (08:16→21:00)
[2022-03-27] MEDS: METOPROLOL XL 100 MG TAB PO SCH (08:16)
[2022-03-27] MEDS: CLOPIDOGREL 75 MG TABLET PO SCH (08:16)
[2022-03-27] MEDS: GABAPENTIN 100 MG CAP PO SCH (08:16)
[2022-03-27] MEDS ORDERED: REGADENOSON 0.4 MG/5 ML SYR IV ONE (08:34)
[2022-03-27] MEDS ORDERED: ENOXAPARIN 40 MG/0.4 ML SQ ONE (08:54)
[2022-03-27] MEDS: HOME MED 1 EA UNK (Ipratropium/Albuterol Sulfate [Iprat-Albut 0.5-3(2.5) Mg/3 Ml] 3 ML Amp IH SCH ×3 (09:00→21:00)
[2022-03-27] MEDS: LORATADINE/PSEUDO 12HR TAB PO SCH (09:00)
[2022-03-27] MEDS ORDERED: ASPIRIN EC 81 MG TAB PO SCH (09:00)
[2022-03-27] MEDS: ENOXAPARIN 40 MG/0.4 ML SQ SCH (09:00)
[2022-03-27] MEDS ORDERED: LEVOTHYROXINE SODIUM 75 MCG PO SCH (09:00)
--- NOTE | 2022-03-27 11:26 | RAD REPORT ---
EXAM DESCRIPTION: NM - Rest Stress Cardiac Imaging - 03/27/2022 11:16 am CLINICAL HISTORY: Angina Chest pain. COMPARISON: No comparisons TECHNIQUE: The patient was administered approximately 10mCi of Tc 99m Sestamibi prior to resting SPE CT imaging of the heart. The patient was then administered approximately 30 mCi of Tc 99m Sestamibi f ollowing exercise or pharmacologic stress. Multiplanar SPECT images were reviewed. FINDINGS: There is a small, moderately severe area of stress-induced ischemia identified involving t he left ventricular septum. No fixed defect is seen to suggest hibernating myocardium or scarred myoc ardium. The end diastolic volume is 166 ml, the end systolic volume is 67 ml, and the ejection fraction is 60 %. IMPRESSION: Small, moderately severe area of stress-induced ischemia involving the LV septum.
--- NOTE | 2022-03-27 13:42 | EKG ---
Test Date: 2022-03-26 Test Time: 07:22:39 Revenue Manager: PEDRO MEASUREMENT RESULTS: Intervals: Rate: 60 NC: 182 QRSD: 158 QT: 456 QTc: 456 [place]: P: 3 NC: 182 QRS: -40 T: 72 INTERPRETIVE STATEMENTS: Normal sinus rhythm Left axis deviation Left bundle branch block Abnormal ECG Compared to ECG 03/05/2022 01:55:47 Left-axis deviation now present Atrial fibrillation no longer present Electronically Signed On 03-27-22 13:39:05 TRAVEL PROFESSIONAL by Sedrick Palumbo
--- NOTE | 2022-03-27 15:12 | P.PN ---
Subjective Date of Service: 03/27/22 Pts stress test shows a moderate sized area of reversible ischemia. Patient will need cardiology consultation. Echocardiogram pending. Review of Systems 10-point ROS is otherwise unremarkable Physical Examination - Vital Signs Temperature: 97.7 F Blood Pressure: 128/73 Pulse: 63 Respirations: 18 Pulse Ox (%): 96 - Physical Exam General: Alert, In no apparent distress, Oriented x3 HEENT: Atraumatic, PERRLA, EOMI Neck: Supple, JVD not distended Respiratory: Clear to auscultation bilaterally, Normal air movement Cardiovascular: Regular rate/rhythm, Normal S1 S2 Gastrointestinal: Normal bowel sounds, No tenderness Musculoskeletal: No tenderness Integumentary: No rashes Neurological: Normal speech, Normal tone, Normal affect Lymphatics: No axilla or inguinal lymphadenopathy - Studies Medications List Reviewed: Yes Assessment & Plan - Problems (Diagnosis) (1) Unstable angina Current Visit: Yes Status: Acute (2) NSTEMI (non-ST elevated myocardial infarction) Current Visit: Yes Status: Acute (3) Chest pain due to myocardial ischemia Current Visit: Yes Status: Acute (4) Anxiety attack Current Visit: Yes Status: Acute (5) History of CHF (congestive heart failure) Current Visit: Yes Status: Acute (6) History of atrial fibrillation Current Visit: Yes Status: Acute (7) Bipolar disorder Current Visit: No Status: Chronic Qualifiers: - Plan Plan of care as mentioned below: 1. Serial troponins and EKG reviewed 2. Cardiology consultation pending 3. Echocardiogram pending and stress test shows moderate sized reversible ischemia of the LV septum 4. Anti-platelet therapy, anticoagulation, beta-sweetie, statin, and O2 as needed 5. IV morphine for pain 6. Bipolar medication adjustments 7. Anxiolytics 8. GI/DVT prophylaxis Discharge Plan: Home Plan to discharge in: Greater than 2 days - Advance Directives Does patient have a Living Will: No Does patient have a Durable POA for Healthcare: No - Code Status/Comfort Care Code Status: Full Code Critical Care: No Time Spent Managing PTS Care (In Minutes): 35
[2022-03-27 16:31] VITALS: BMI 40.0
[2022-03-27] MEDS ORDERED: LORazepam 2 MG/ML VIAL IV ONE (17:00)
[2022-03-27] MEDS ORDERED: ATORVASTATIN 10 MG TAB PO SCH (21:00)
[2022-03-27] MEDS: ATORVASTATIN 40 MG TAB PO SCH (21:30)
[2022-03-27] MEDS ORDERED: ATORVASTATIN 20 MG TAB ONE (23:41)
[2022-03-28] MEDS: FUROSEMIDE 20 MG/ 2ML VIAL IV SCH ×3 (01:00→17:00)
[2022-03-28] MEDS ORDERED: FUROSEMIDE 20 MG TABLET ONE (01:32)
[2022-03-28] MEDS ORDERED: FUROSEMIDE 20 MG/ 2ML VIAL ONE ×2 (01:41→09:42)
[2022-03-28] MEDS ORDERED: LORazepam 2 MG/ML VIAL ONE ×2 (06:25→14:35)
[2022-03-28] MEDS: LEVOTHYROXINE SOD 0.075 MG TAB PO SCH (06:30)
[2022-03-28] MEDS: LORazepam 2 MG/ML VIAL IV PRN ×2 (06:31→14:33)
--- NOTE | 2022-03-28 07:23 | TREADPHA ---
DX: ANGINA Date of Study: 03/27/2022 Ht: 5' 2 " Wt: 219 lb 0 oz Consulting Physician: JERICHO MEDICATIONS: HISTORY: PHYSICIAL EXAMINATION: RESTING B.P.: 139/45 173/58 RESTING H.R.: 58 RESTING EK. IN COUPLET, LEFT BUNDLE BRANCH BLOCK 2. NORMAL SINUS RHYTHM PROTOCOL: PHARMACOLOGIC EXERCISE TIME: 3:30 B.P. AT [place] STRESS: 112/52 IMPRESSION: LEXISCAN STRESS TEST PERFORMED ORDERED. CARDIOLITE INJECTED PER PROTOCOL. NO SUPRAVENTRICULAR TACHYCARDIA, NO VENTRICULAR TACHYCARDIA, NO ARRHYTHMIAS OR CHEST PAIN NOTED. SEE NUCLEAR MEDICINE REPORT. NO ELECTROCARDIOGRAM CHANGES OF ISCHEMIA.
[2022-03-28] MEDS: BENZONATATE 100 MG CAP PO SCH ×3 (09:00→21:00)
[2022-03-28] MEDS: predniSONE 10 MG TAB PO SCH (09:00)
[2022-03-28] MEDS: HOME MED 1 EA UNK (Ipratropium/Albuterol Sulfate [Iprat-Albut 0.5-3(2.5) Mg/3 Ml] 3 ML Amp IH SCH ×3 (09:00→21:00)
[2022-03-28] MEDS: ENOXAPARIN 40 MG/0.4 ML SQ SCH (09:00)
[2022-03-28] MEDS: GABAPENTIN 100 MG CAP PO SCH (09:00)
[2022-03-28] MEDS: LITHIUM CARBONATE 450 MG PO SCH ×2 (09:00→21:00)
[2022-03-28] MEDS: HYDROXYZINE HCL 10 MG/5 ML SYRUP UD PO SCH (09:00)
[2022-03-28] MEDS: CITALOPRAM 10 MG TABLET PO SCH (09:00)
[2022-03-28] MEDS ORDERED: predniSONE 10 MG TAB ONE (09:40)
[2022-03-28] MEDS ORDERED: ASPIRIN EC 81 MG TAB PO ONE ×2 (09:41→10:32)
[2022-03-28] MEDS ORDERED: METOPROLOL XL 50 MG TAB PO ONE (09:42)
[2022-03-28] MEDS ORDERED: BENZONATATE 100 MG CAP PO ONE (09:42)
[2022-03-28] MEDS ORDERED: CLOPIDOGREL 75 MG TABLET ONE ×2 (09:43→17:12)
[2022-03-28] MEDS: LORATADINE/PSEUDO 12HR TAB PO SCH (10:12)
[2022-03-28] MEDS: METOPROLOL XL 100 MG TAB PO SCH (10:22)
[2022-03-28] MEDS: CLOPIDOGREL 75 MG TABLET PO SCH (10:22)
[2022-03-28] MEDS: ASPIRIN EC 81 MG TAB PO SCH (10:30)
--- NOTE | 2022-03-28 14:22 | P.PN ---
Date of Service: 03/28/22 Subjective Patient continues to have some mild chest discomfort. Gets a little anxious and we have given her some anxiolytics. Review of Systems 10-point ROS is otherwise unremarkable Physical Examination - Vital Signs Reviewed - Physical Exam General: Alert, In no apparent distress, Oriented x3 Respiratory: Clear to auscultation bilaterally, Normal air movement Cardiovascular: Regular rate/rhythm, Normal S1 S2 Gastrointestinal: Normal bowel sounds, No tenderness Neurological: Normal speech, Normal tone, Normal affect Assessment & Plan - Problems (Diagnosis) (1) Unstable angina Current Visit: Yes Status: Acute (2) NSTEMI (non-ST elevated myocardial infarction) Current Visit: Yes Status: Acute (3) Chest pain due to myocardial ischemia Current Visit: Yes Status: Acute (4) Anxiety attack Current Visit: Yes Status: Acute (5) History of CHF (congestive heart failure) Current Visit: Yes Status: Acute (6) History of atrial fibrillation Current Visit: Yes Status: Acute (7) Bipolar disorder Current Visit: No Status: Chronic Qualifiers: - Plan Plan of care as mentioned below: 1. Check cardiology consultation. Patient is scheduled for cardiac catheterization. 2. Echocardiogram reviewed, and stress test shows moderate sized reversible ischemia of the LV septum 4. Continue with anti-platelet therapy, anticoagulation, beta-sweetie, statin, and O2 as needed 5. Continue with IV morphine for pain 6. Bipolar medication adjustments 7. Anxiolytics 8. GI/DVT prophylaxis
[2022-03-28] MEDS ORDERED: NA CHLORIDE 0.9% 500 ML ONE (15:25)
[2022-03-28] MEDS ORDERED: HEPA 1000U/500MLS 2,000 UNIT/1,000 ML BAG IV ONE (15:40)
[2022-03-28] MEDS ORDERED: FENTANYL CITR 100 MCG/2 ML ONE (15:41)
[2022-03-28] MEDS ORDERED: VERAPAMIL HCL 10 MG/4 ML VIAL IV ONE (15:41)
[2022-03-28] MEDS ORDERED: HEPARIN 10,000 UNIT/10 ML VIAL IV ONE (15:41)
[2022-03-28] MEDS ORDERED: HEPARIN 5000 UNIT/ML 1 ML VIAL ONE (15:41)
[2022-03-28] MEDS ORDERED: MIDAZOLAM HCL 2 MG/2 ML INJ ONE (15:41)
[2022-03-28] MEDS ORDERED: LIDOCAINE 1% MPF 30 ML VIAL ONE (15:42)
[2022-03-28] MEDS ORDERED: ATROPINE SULF 1 MG/10 ML SYR IV ONE (15:42)
[2022-03-28] MEDS ORDERED: ASPIRIN 81 MG CHEWABLE TABLET ONE (17:08)
[2022-03-28] MEDS ORDERED: METOPROLOL TAR 50 MG TAB ONE (17:09)
[2022-03-28] MEDS ORDERED: HEPA 1000U/500MLS 1,000 UNIT/500 ML BAG IV ONE (17:13)
[2022-03-28] MEDS ORDERED: ONDANSETRON 4 MG/2 ML VIAL ONE (17:57)
--- NOTE | 2022-03-28 20:40 | CON ---
Date of Consultation: 03/28/2022 Reason For Consultation: Chest pain and abnormal stress test. History Of Present Illness: This 56-year-old female presented to emergency room with shortness of br eath and chest heaviness and lower extremity edema. She was given Lasix, felt much better. She had a stress test done that showed an anterior wall reversible ischemia. The patient has been n.p.o. for coronary angiogram today. Past Medical History: As outlined above in HPI. Medications: Refer to reconciliation sheet for detailed list. Allergies: CODEINE, OXYCODONE, AND PENICILLIN. Family History: No premature coronary artery disease or cancer. Social History: She is an ex-smoker. Does not drink or use any drugs. Review of Systems: All systems reviewed and they are negative except for mentioned in HPI. Physical Examination: Vital Signs: Reviewed. Head And Neck: Pupils are equal and reactive to light. Intact eye movements. No JVD. No cervical lymphadenopathy. Neck is supple. Thyroid is not enlarged. Lungs: Clear to auscultation bilaterally. No rhonchi, wheezing, or crackles. No accessory muscle u se. Heart: Regular rate and rhythm. No extra sounds. Abdomen: Soft, nontender. Bowel sounds positive. No organomegaly. No masses or hernia. No rigidi ty or rebound. Extremities: No edema, clubbing, or cyanosis. Intact pulses. Skin: No rash. Neuro: Alert, awake, and oriented x3. No acute focal deficits appreciated. Investigations: Troponin is 92. BUN is 14, creatinine 0.79, and hemoglobin is 14.4. Stress test sh owed a reversible ischemia of the LV septum. Assessment/recommendations: 1.Chest pain with elevated troponin and positive stress test. This could be acute coronary syndrome . She is n.p.o. Plan for coronary angiogram now and further recommendation to follow accordingly. 2.Acute congestive heart failure exacerbation, unknown ejection fraction. Obtain an echocardiogram and continue Lasix. She feels much better. Lasix can be changed to oral at 40 mg daily .. 3.Dyslipidemia. Continue statin. SR/MODL Voice ID: [id number] Report ID: [id number]
--- NOTE | 2022-03-28 20:49 | OP ---
Date of Procedure: 03/28/2022 Surgeon: SANJANA ECHAVARRIA Procedures Performed: 1.Selective coronary angiogram. 2.Left heart catheterization. 3.Percutaneous coronary intervention of mid right coronary artery critical stenosis. I used 3.0 x 2 4 mm Synergy drug-eluting stent. Indication: Non-ST elevation myocardial infarction with abnormal stress test. Access: Right radial artery 6-Peruvian closed with TR band. Complications: None. Estimated Blood Loss: Bleeding less than 20 mL. Anesthesia: Total sedation time was 65 minutes, used fentanyl and Versed. Description Of Procedure: After risks, benefits, and alternatives were explained, patient agreed to procedure and signed informed consent. The patient was brought into the cardiac catheterization labo [facility] and prepped and draped in sterile fashion. Then I accessed right radial artery using Kumo c micropuncture kit and placed a 6-Peruvian Slender sheath and took a 5-Peruvian Walnut 4 catheter into th e aortic root, engaged left main and then right coronary artery and took standard views. Catheter wa s advanced over the wire into the LV, measured LVEDP and pullback did not record any gradient. Then I gave systemic heparin to assure ACT level above 250. The patient is already on Plavix and aspirin so I took a 6-Peruvian JR4 guide into the aortic root, engaged the RCA, took a short Runthrough wire an d could not cross the stenosis and using Fielder XT, I was able to cross the stenosis and the lesion was successfully pre-dilated and then placed a 3.0 x 24 mm Synergy drug-eluting stent with excellent results. Two branches that were coming right after the stenosis supplying the inferior wall, one of them was GRETCHEN 1 flow and the other one was GRETCHEN 2 flow and then after the stent, the first branch bec cesar much better and gave GRETCHEN 3 flow and the second branch was jailed, but still with GRETCHEN 2 flow. T hen, we removed the guide and sheath and placed TR band with good hemostasis. The patient was loaded with 300 mg of Plavix. Findings: 1.Left main: Large and normal. 2.LAD: Proximal LAD stent is patent, has 30% ISR in the midportion. Distal to the stent, there is a 90% stenosis with GRETCHEN 3 flow in the LAD and then diagonal branches are large and normal and then m id to distal LAD, there are 3 tandem lesions about 30% each. 3.There is a large ramus intermedius with patent proximal stent and then luminal irregularities. 4.The left circumflex is moderate size and with luminal irregularities. 5.RCA it has dominant circulation with mid 99% stenosis status post successful PCI as above. 6.Normal LVEDP at 8 mmHg. Conclusion: 1.Critical mid right coronary artery stenosis, which is the culprit status post successful percutane ous coronary intervention as above. 2.Severe proximal left anterior descending artery stenosis, will be staged to be done on Saturday and the left anterior descending artery has mild disease. 3.Patent ramus intermedius stent. 4.Normal left ventricular end-diastolic pressure. Plan: Aspirin, Plavix, high-dose statin. Resume heparin tonight. No bolus 2 hours after removing T R band and plan to bring her back on Saturday for a PCI of the proximal LAD. SR/MODL Voice ID: [id number] Report ID: [id number]
[2022-03-28] MEDS: ATORVASTATIN 40 MG TAB PO SCH (21:00)
[2022-03-28] MEDS: HEPARIN/D5W 25,000 UNIT/500 ML BAG IV PRN (22:55)
[2022-03-29] MEDS: FUROSEMIDE 20 MG/ 2ML VIAL IV SCH ×3 (01:00→17:06)
[2022-03-29] MEDS: LORazepam 2 MG/ML VIAL IV PRN ×3 (02:37→21:19)
[2022-03-29 03:28] LABS: Absolute Lymphocytes (CBC) 1.7 K/uL (0.7-4.9); Lymphocytes % 18.2 % (15.3-44.8); MCV 90.2 fL (80-100); MPV 7.5 fL (7.6-11.3); RBC Red Blood Cell Count 4.88 M/uL (3.86-4.86)
[2022-03-29 04:13] LABS: Potassium 3.5 mmol/L (3.5-5.1)
[2022-03-29] MEDS: LEVOTHYROXINE SOD 0.075 MG TAB PO SCH (06:09)
--- NOTE | 2022-03-29 06:49 | ECHO ---
HEIGHT: 5 ft 2 in WEIGHT: 219 lb 0 oz DATE OF STUDY: 03/28/[address]: Yefri Bhardwaj MD 2-DIMENSIONAL: YES M.MODE: YES DOPPLER: YES COLOR FLOW: YES TDS: PORTABLE: YES DEFINITY: BUBBLE STUDY: DIAGNOSIS: CONGESTIVE HEART FAILURE CARDIAC HISTORY: CATHERIZATION: NO SURGERY: NO PROSTHETIC VALVE: NO PACEMAKER: NO MEASUREMENTS (cm) DIASTOLIC (NORMALS) SYSTOLIC (NORMALS) IVSd 1.4 (0.6-1.2) LA Diam 3.2 (1.9-4.0) LVEF 52% LVIDd 4.3 (3.5-5.7) LVIDs 3.1 (2.0-3.5) %FS 27% LVPWd 1.4 (0.6-1.2) Ao Diam 2.3 (2.0-3.7) 2 DIMENSIONAL ASSESSMENT: RIGHT ATRIUM: NORMAL LEFT ATRIUM: NORMAL RIGHT VENTRICLE: NORMAL LEFT VENTRICLE: NORMAL TRICUSPID VALVE: MILD TRICUSPID REGURGITATION MITRAL VALVE: MILD MITRAL REGURGITATION PLUS MITRAL ANNULAR CALCIFICATION PULMONIC VALVE: MILD PULMONIC INSUFFICIENCY AORTIC VALVE: MILD AORTIC INSUFFICIENCY PERICARDIAL EFFUSION: NONE AORTIC ROOT: NORMAL LEFT VENTRICULAR WALL MOTION: NORMAL DOPPLER/COLOR FLOW: SEE BELOW COMMENTS: 1. NORMAL LEFT VENTRICULAR EJECTION FRACTION 55-60% 2. NORMAL WALL MOTION 3. MILD TRICUSPID REGURGITATION/ MILD PULMONIC INSUFFICIENCY 4. MITRAL ANNULAR CALCIFICATION WITH MILD MITRAL REGURGITATION 5. DIASTOLIC DYSFUNCTION TECHNOLOGIST: ROMELIA NICOLE
[2022-03-29] MEDS: CITALOPRAM 10 MG TABLET PO SCH (08:17)
[2022-03-29] MEDS: GABAPENTIN 100 MG CAP PO SCH (08:17)
[2022-03-29] MEDS: HOME MED 1 EA UNK (Ipratropium/Albuterol Sulfate [Iprat-Albut 0.5-3(2.5) Mg/3 Ml] 3 ML Amp IH SCH ×3 (08:17→21:00)
[2022-03-29] MEDS: predniSONE 10 MG TAB PO SCH (08:17)
[2022-03-29] MEDS: LITHIUM CARBONATE 450 MG PO SCH ×2 (08:17→21:00)
[2022-03-29] MEDS: BENZONATATE 100 MG CAP PO SCH ×3 (08:17→21:00)
[2022-03-29] MEDS: HYDROXYZINE HCL 10 MG/5 ML SYRUP UD PO SCH (08:17)
[2022-03-29] MEDS: CLOPIDOGREL 75 MG TABLET PO SCH (08:31)
[2022-03-29] MEDS: ASPIRIN EC 81 MG TAB PO SCH (08:31)
[2022-03-29] MEDS: LORATADINE/PSEUDO 12HR TAB PO SCH (09:00)
[2022-03-29] MEDS: METOPROLOL XL 100 MG TAB PO SCH (09:00)
--- NOTE | 2022-03-29 14:08 | PN ---
Date of Progress Note: 03/29/2022 Subjective: Seen by bedside. Doing well. No chest pain at all since yesterday. Review of Systems: No chest pain, shortness of breath, orthopnea, cough. No nausea, vomiting, diarrhea. All other syst ems reviewed and they were negative. Physical Examination: Vital Signs: Reviewed. Head and Neck: Pupils are equal, reactive to light. Intact eye movements. No JVD. No cervical lym phadenopathy. Neck is supple. Thyroid is not enlarged. Lungs: Clear to auscultation bilaterally. No rhonchi, wheezing, or crackles. No accessory muscle u se. Heart: Regular rate and rhythm. No extra sounds. Abdomen: Soft, nontender. Bowel sounds positive. No organomegaly. No masses or hernia. No rigidi ty or rebound. Extremities: No edema, clubbing, or cyanosis. Intact pulses. Skin: No rash. Neurologic: Alert, awake, oriented x3. No acute focal deficits appreciated. Investigations: Labs were reviewed. BUN 18, creatinine 0.77. Assessment And Recommendations: 1.Non-ST elevation myocardial infarction. Culprit was RCA, status post successful percutaneous jessica nary intervention, but she has significant LAD disease. We will plan to do percutaneous coronary int ervention of the proximal LAD tomorrow. Continue heparin drip until we do the percutaneous coronary intervention of the LAD tomorrow as 1 of the branches from the RCA was jailed with GRETCHEN 2 flow, I am hoping with the complete resolution of the left that with anticoagulants. 2.Smoker. She was counseled against smoking. 3.Dyslipidemia. Continue Lipitor 40 mg at bedtime. SR/MODL Voice ID: [id number] Report ID: [id number]
--- NOTE | 2022-03-29 17:45 | EKG ---
Test Date: 2022-03-28 Test Time: 18:00:30 Technical Specialist: PEDRO MEASUREMENT RESULTS: Intervals: Rate: 77 NH: 184 QRSD: 176 QT: 438 QTc: 495 [place]: P: 75 NH: 184 QRS: -14 T: 51 INTERPRETIVE STATEMENTS: Normal sinus rhythm Biatrial enlargement Left bundle branch block Abnormal ECG Compared to ECG 03/26/2022 07:22:39 Atrial abnormality now present Left-axis deviation no longer present Electronically Signed On 03-29-22 17:43:30 MOBILE HOME MECHANIC by Sedrick Palumbo
[2022-03-29] MEDS: ATORVASTATIN 40 MG TAB PO SCH (21:03)
[2022-03-29] MEDS: HEPARIN/D5W 25,000 UNIT/500 ML BAG IV PRN (21:06)
[2022-03-30] MEDS: FUROSEMIDE 20 MG/ 2ML VIAL IV SCH ×2 (01:00→08:21)
[2022-03-30] MEDS: LEVOTHYROXINE SOD 0.075 MG TAB PO SCH (06:30)
[2022-03-30] MEDS: LORazepam 2 MG/ML VIAL IV PRN (08:14)
[2022-03-30] MEDS: ASPIRIN EC 81 MG TAB PO SCH (08:15)
[2022-03-30] MEDS: CLOPIDOGREL 75 MG TABLET PO SCH (08:16)
[2022-03-30] MEDS: predniSONE 10 MG TAB PO SCH (08:17)
[2022-03-30] MEDS: HOME MED 1 EA UNK (Ipratropium/Albuterol Sulfate [Iprat-Albut 0.5-3(2.5) Mg/3 Ml] 3 ML Amp IH SCH ×2 (08:18→13:20)
[2022-03-30] MEDS: BENZONATATE 100 MG CAP PO SCH ×2 (08:18→13:20)
[2022-03-30] MEDS: METOPROLOL XL 100 MG TAB PO SCH (08:18)
[2022-03-30] MEDS: LORATADINE/PSEUDO 12HR TAB PO SCH (08:19)
[2022-03-30] MEDS: HYDROXYZINE HCL 10 MG/5 ML SYRUP UD PO SCH (08:19)
[2022-03-30] MEDS: CITALOPRAM 10 MG TABLET PO SCH (08:19)
[2022-03-30] MEDS: GABAPENTIN 100 MG CAP PO SCH (08:20)
[2022-03-30] MEDS: LITHIUM CARBONATE 450 MG PO SCH (08:20)
[2022-03-30] MEDS ORDERED: LIDOCAINE 1% MPF 30 ML VIAL ONE (10:57)
[2022-03-30] MEDS ORDERED: HEPA 1000U/500MLS 2,000 UNIT/1,000 ML BAG IV ONE (10:57)
[2022-03-30] MEDS ORDERED: FENTANYL CITR 100 MCG/2 ML ONE (11:22)
[2022-03-30] MEDS ORDERED: MIDAZOLAM HCL 2 MG/2 ML INJ ONE (11:22)
[2022-03-30] MEDS ORDERED: NITROGLYCERIN 100 MCG/ML SYR (for cath lab use only) IV ONE (11:23)
[2022-03-30] MEDS ORDERED: HEPARIN 10,000 UNIT/10 ML VIAL IV ONE (11:23)
[2022-03-30] MEDS ORDERED: HEPARIN 5000 UNIT/ML 1 ML VIAL ONE (11:23)
[2022-03-30] MEDS ORDERED: NITROGLYCERIN/D5W 25 MG/250 ML BTL IV ONE (11:23)
[2022-03-30] MEDS ORDERED: VERAPAMIL HCL 10 MG/4 ML VIAL IV ONE (11:23)
[2022-03-30] MEDS ORDERED: ATROPINE SULF 1 MG/10 ML SYR IV ONE (11:23)
[2022-03-30] MEDS ORDERED: NA CHLORIDE 0.9% 1,000 ML ONE (11:24)
[2022-03-30] MEDS ORDERED: ASPIRIN 325 MG TAB ONE (11:24)
[2022-03-30] MEDS ORDERED: TICAGRELOR 90 MG TABLET PO ONE (11:24)
[2022-03-30] MEDS ORDERED: CLOPIDOGREL 75 MG TABLET ONE (11:24)
[2022-03-30] MEDS ORDERED: ONDANSETRON 4 MG/2 ML VIAL ONE (12:29)
[2022-03-30 15:03] VITALS: O2SAT 93
--- NOTE | 2022-03-30 15:14 | P.PN ---
Date of Service: 03/29/22 Subjective Pt continues to improve. Clinical symptoms are better. She is ambulating well. Plan is for her to go to get additional stent placed on Saturday. Discharge after this. Review of Systems 10-point ROS is otherwise unremarkable Physical Examination - Vital Signs Reviewed - Physical Exam General: Alert, In no apparent distress, Oriented x3 Respiratory: Clear to auscultation bilaterally Cardiovascular: Regular rate/rhythm, Normal S1 S2 Gastrointestinal: Normal bowel sounds, No tenderness Neurological: No focal deficits Assessment & Plan - Problems (Diagnosis) (1) Unstable angina Current Visit: Yes Status: Acute (2) NSTEMI (non-ST elevated myocardial infarction) Current Visit: Yes Status: Acute (3) Chest pain due to myocardial ischemia Current Visit: Yes Status: Acute (4) Anxiety attack Current Visit: Yes Status: Acute (5) History of CHF (congestive heart failure) Current Visit: Yes Status: Acute (6) History of atrial fibrillation Current Visit: Yes Status: Acute (7) Bipolar disorder Current Visit: No Status: Chronic - Plan Plan of care as mentioned below: 1. Appreciate cardiology consultation. Patient is scheduled for another cardiac catheterization in AM. 2. Echocardiogram reviewed, and stress test shows moderate sized reversible ischemia of the LV septum 4. Continue with anti-platelet therapy, anticoagulation, beta-sweetie, statin, and O2 as needed 5. Continue with IV morphine for pain 6. Bipolar medication adjustments 7. Anxiolytics 8. GI/DVT prophylaxis
[2022-03-30 15:20] VITALS: BP 116/62
--- NOTE | 2022-03-30 16:03 | PN ---
Date of Progress Note: 03/30/2022 Subjective: Seen at bedside. Clinically doing well. Does not have any chest pain. Review of Systems: No chest pain, shortness of breath, orthopnea, cough. No nausea, vomiting, diarrhea. All other syst ems reviewed are negative. Physical Examination: Vital Signs: Reviewed. Head and Neck: Pupils are equal, reactive to light. Intact eye movements. No JVD. No cervical lym phadenopathy. Neck is supple. Thyroid is not enlarged. Lungs: Clear to auscultation bilaterally. No rhonchi, wheezing, or crackles. No accessory muscle u se. Heart: Regular rate and rhythm. No extra sounds. Abdomen: Soft, nontender. Bowel sounds positive. No organomegaly. No masses or hernia. No rigidi ty or rebound. Extremities: No edema, clubbing, cyanosis. Intact pulses. Skin: No rash. Neurologic: Alert, awake, oriented x3. No acute focal deficits appreciated. Investigations: BUN 18, creatinine 0.77. Hemoglobin is 15.1. Assessment/recommendations: 1.Non-ST elevation myocardial infarction, status post percutaneous coronary intervention of the [facility] t coronary artery. Plan for percutaneous coronary intervention of proximal left anterior descending today as she has significant disease. I will check the stent that was done 2 days ago as there was a branch that was jailed. Continue aspirin, Plavix, and high-dose statin. 2.Dyslipidemia. Continue atorvastatin 40 mg at bedtime. 3.Smoker. She was counseled against smoking in details. From cardiovascular standpoint, patient is doing clinically well. SR/MODL Voice ID: [id number] Report ID: [id number]
[2022-03-30 17:57] VITALS: TEMP 98
[2022-03-30] MEDS ORDERED: LITHIUM CARBONATE 450 MG PO SCH (21:00)
--- NOTE | 2022-03-30 23:40 | OP ---
Date of Procedure: 03/30/2022 Surgeon: SANJANA ECHAVARRIA Procedure Performed: 1.Selective coronary angiogram. 2.Percutaneous coronary intervention of severe proximal left anterior descending stenosis, 90% steno sis, used a 3.5 x 60 mm Synergy drug-eluting stent. Indication: Non-ST elevation myocardial infarction. Access: Right radial artery 6-Ghanaian closed with TR band. Complications: None. Bleeding: Less than 10 mL. Anesthesia: Total sedation time was 45 minutes, used fentanyl and Versed. Description Of Procedure: After risks, benefits, alternatives were explained, the patient agreed to the procedure and signed informed consent, patient was brought into the cardiac catheterization labor atory, prepped and draped in usual sterile fashion. Then, I accessed right radial artery using pedia tric micropuncture kit, placed 6-Ghanaian Slender sheath and took a 6-Ghanaian EBU 3.5 guide into the aor tic root, engaged left main, took standard views and gave systemic heparin to assure AC level above 250 and then took a short run-through wire into the LAD passing the area of stenosis and lesion was dilated using a 3.5 balloon and then placed a 3.5 x 16 mm Synergy drug-eluting stent, overlapped with the first stent and the overlapped area was post dilated to high pressure. The patient tolerated th e procedure very well. At the end of procedure, GRETCHEN-3 flow was achieved and 0% residual stenosis an d angiogram was satisfactory. I then removed the guide and exchanged for 6-Ghanaian JR4 catheter. Dilcia gnosis catheter engaged RCA and took standard views and then the catheter was pushed into the LV over the wire, measured the LVEDP and pullback did not record any gradients. Then, we removed the cathet er and sheath and placed TR band with good hemostasis. Findings: 1.Left main: Large, normal. 2.LAD: Proximal LAD stent is patent. Right before the stent is about 40% stenosis and then after t he stent still in the proximal segment is a focal 90% stenosis, status post successful PCI as above a nd diagonal branches are normal, and mid to distal LAD, there was 3 tandem lesions about 30% each. 3.Ramus intermedius: Very large with a large patent stent. 4.Left circumflex is moderate size and no significant disease. 5.RCA: Mid RCA stent is widely patent and branches from the RCA have GRETCHEN-3 flow. Especially, the one that was jailed earlier. 6.LVEDP elevated between 15 and 18 mmHg. Conclusion: 1.Severe proximal LAD stenosis, status post successful PCI as above. 2.Patent ramus intermedius and RCA stents. 3.Borderline elevated LVEDP. Recommendation: 1.Aspirin, statin, and Plavix. 2.Diuretics and follow up with me as an outpatient in 4 weeks post discharge. SR/MODL Voice ID: [id number] Report ID: [id number]
== END 2022-03-30 17:55 | disposition home or self-care (01) | DRG 246 ==
LOC: ER 06:27 → ERHOLD 14:35 → OBSVTOIN 03-27 15:06 → 2ND 03-28 18:22
PROVIDERS: ADMIT Hospitalist; ATTEND Hospitalist
PROC: 027034Z Dilation of Coronary Artery, One Artery with Drug-eluting Intraluminal Device, Percutaneous Approach (ICD-10-PCS; principal; 2022-03-28)
PROC: 4A023N7 Measurement of Cardiac Sampling and Pressure, Left Heart, Percutaneous Approach (ICD-10-PCS; 2022-03-28)
PROC: B2111ZZ Fluoroscopy of Multiple Coronary Arteries using Low Osmolar Contrast (ICD-10-PCS; 2022-03-28)
PROC: 027034Z Dilation of Coronary Artery, One Artery with Drug-eluting Intraluminal Device, Percutaneous Approach (ICD-10-PCS; 2022-03-30)
PROC: 4A023N7 Measurement of Cardiac Sampling and Pressure, Left Heart, Percutaneous Approach (ICD-10-PCS; 2022-03-30)
PROC: B2111ZZ Fluoroscopy of Multiple Coronary Arteries using Low Osmolar Contrast (ICD-10-PCS; 2022-03-30)
DX: I21.4 Non-ST elevation (NSTEMI) myocardial infarction (principal); I50.33 Acute on chronic diastolic (congestive) heart failure; J96.01 Acute respiratory failure with hypoxia; I20.0 Unstable angina; F41.9 Anxiety disorder, unspecified; E78.5 Hyperlipidemia, unspecified; F31.9 Bipolar disorder, unspecified; J44.9 Chronic obstructive pulmonary disease, unspecified; F17.210 Nicotine dependence, cigarettes, uncomplicated; Z88.5 Allergy status to narcotic agent; Z95.5 Presence of coronary angioplasty implant and graft; Z71.6 Tobacco abuse counseling; Z88.0 Allergy status to penicillin; Z79.82 Long term (current) use of aspirin; Z79.02 Long term (current) use of antithrombotics/antiplatelets; Z79.52 Long term (current) use of systemic steroids; Z85.72 Personal history of non-Hodgkin lymphomas; Z79.890 Hormone replacement therapy; Z28.310 Unvaccinated for COVID-19; Z79.899 Other long term (current) drug therapy; Z20.822 Contact with and (suspected) exposure to COVID-19
CPT/HCPCS: 36415; 71045; 76937; 78452; 80048; 80061; 80076; 83036; 83735; 83880; 84439; 84443; 84484; 85025; 85347; 85379; 85610; 85730; 87811; 92928; 93005; 93017; 93306; 93458; 96374; 99285; A9500; C1725; C1893; J0461; J1644; J1650; J1940; J2001; J2250; J2405; J2785; J3010; J7030; J7040; J7512; Q9967

== ENCOUNTER 2022-04-03 05:02 | Observation (INO) | payer OTHER ==
--- OUTSIDE RECORDS SUMMARY | 2022-04-03 05:32 | XMS REPORT | Continuity of Care Document ---
:1965 Author Organization [facility] t Address 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 Unive rs chest pain chest pain 1-03 it y of 00:00: [place] [facility] Essential Essential Disease Active Uni vers hypertensi hypertensi 1-03 it y of on on 00:00: [place] [facility] Dyslipidem Dyslipidem Disease Active U nivers ia ia 1-03 ity of 00:00: [place] [facility] Allergies, Adverse Reactions, Alerts Allergy [...] E INGREDI 6-10 ity of 00:00: [place] [facility] Oxycodon Propensi Active Rash Univer s e ty to 6-10 ity of adverse 00:00: [place] reaction 00 Medical s Branch oxyCODON oxyCODON Active Maria L Peñaloza Social History Social Habit Start Date Stop Date Quantity Comments Source History of Smokes tobacco University of tobacco use daily [facility] Exposure to 2022-02-14 2022-02-24 Not sure [facility] SARS-CoV-2 00:00:00 04:59:00 [facility] (event) Branch Alcohol intake 2022-01-15 2022-01-15 Current drinker Unive rsity of 00:00:00 00:00:00 of alcohol [facility] (finding) [place] Social History 2019-04-24 2019-04-24 [facility] Pra[facility] urias 17:19:51 17:19:51 Tobacco use and 2019-04-03 2019-04-03 Smokeless tobacco Un iversity of exposure 00:00:00 00:00:00 non-user [facility] Sex Assigned At [birth year] Universit y of 00:00:00 00:00:00 [facility] Smoking Status Start Date Stop Date Source Smokes tobacco daily 2019-04-03 00:00:00 Univers ity of [facility] Medications Ordered Filled Start Stop Current Ordering [...] 1 [place] (SOLU-MEDRO 00 :00 dose, On [facility] renu L (PF)) Sat Branch injection 02/24/22 125 mg at 0530, [place] furosemide 2021-04 No 40mg 40 mg, IV U nivers (LASIX) 017 17 Push, ity of injection 10:45: 10:45 ONCE, 1 Renzoa s 40 mg 00 :00 dose, On Medical [facility] Branch 01/15/22 at 0545, [place] TAKE 1 2021-0 No TABLET BY 9-26 MOUTH EVERY [...] NEEDED FOR PAIN TAKE 1 2021-0 No TABLET BY 9-26 MOUTH EVERY 00:00: 4 HOURS 00 NEEDED FOR PAIN TAKE 1 2021-0 No TABLET BY 9-26 MOUTH EVERY 00:00: 4 HOURS 00 NEEDED FOR PAIN TAKE 1 2021-0 No TABLET BY 9-26 MOUTH EVERY 00:00: 4 HOURS 00 NEEDED FOR PAIN TAKE 1 2021-0 No TABLET BY 9-26 MOUTH EVERY [...] promethazin 2-0 No 1mg e 25 mg 8- tablet 00:00: 00 TAKE 1 2-0 No [...] TABLETS A 7-05 DAY 00:00: NEEDED 00 TAKE 1-2 2022-0 [...] 2-0 No Unknown 5-11 00:00: 00 prednisone 2022-0 [...] 10 mg 2-28 tablet 00:00: 00 atorvastati 2-0 No 1mg n 10 mg 2-28 tablet 00:00: 00 atorvastati 2-0 No 1mg n 10 mg 2-28 tablet [...] 2-0 No Unknown 1-18 00:00: 00 clopidogrel 2-0 No 1mg 75 [...] mg base)/3 mL nebulizatio n soln doxycycline 2022-0 No 1mg hyclate 100 1-03 mg tablet [...] unit) (1,000 00:00: unit) 00 tablet levothyroxi 2020- No 1mcg ne 75 mcg 2-14 tablet [...] 2021-1 No Unknown 1- 00:00: 00 Dose 1-1 No Unknown 1 00:00: 00 Dose 2021-1 No Unknown 1 00:00: 00 Dose 2021-1 No Unknown 1 00:00: 00 Dose 2021-1 No Unknown 1 00:00: 00 Dose 2021-1 No Unknown 1 00:00: 00 Dose 2021-1 No Unknown 1 00:00: 00 Dose 2021-1 No Unknown 1- 00:00: 00 Dose 2021-1 No Unknown 1 00:00: 00 clopidogrel 2021-1 No 1mg 75 [...] tablet 00:00: 00 Dose 2021-1 No Unknown 1 00:00: 00 gabapentin 2021-1 No 12mg 100 mg 1-23 capsule 00:00: 00 Dose 1-1 No Unknown 1 00:00: 00 gabapentin 2021-1 [...] mg 00:00: tablet,exte 00 nded release gabapentin 2021-1 No 12mg 100 mg 1-23 [...] tablet,exte 00 nded release 24 hr atorvastati 2019-04 No 1mg n 10 mg 2-26 tablet 00:00: 00 hydrochloro 2019- No 1mg thiazide 2-26 12.5 mg 00:00: tablet 00 lithium 2019-04 No 1mg carbonate 2-26 ER 450 mg 00:00: tablet,exte 00 nded release clopidogrel 2019-04 No 1mg 75 mg 2-26 [...] 10 mg 2-26 tablet 00:00: 00 metoprolol 0 Yes 100 mg = 1 M emoria 100 mg oral 1-24 tab, PO, l tablet, 17:20: Daily, # [place] n extended 00 30 tab, 0 release Refill(s) atorvastati 2019-0 Yes PO, Daily, Memoria n 1-24 0 l 17:20: Refill(s) [place] 00 Aspirin 81 2019-0 Yes 81 mg [...] tab, PO, l tablet 17:20: Daily, # [place] 00 30 tab, 0 Refill(s) metoprolol 2020-0 [...] 1-24 PO, BID, 0 l 17:20: Refill(s) [place] 00 citalopram 2020-0 Yes 10 mg = 1 Me moria 10 mg oral 1-24 tab, PO, l tablet 17:20: Daily, # [place] 00 30 tab, 0 Refill(s) metoprolol 2020-0 Yes 100 mg = 1 M emoria 100 mg oral 1-24 tab, PO, l tablet, 17:20: Daily, # [place] n extended 00 30 tab, 0 release Refill(s) metoprolol 2020-0 Yes 100 mg = 1 M emoria 100 mg oral 1-24 tab, PO, l tablet, 17:20: Daily, # [place] n extended 00 30 tab, 0 release Refill(s) atorvastati 2020-0 Yes PO, Daily, Memoria n 1-24 0 l 17:20: Refill(s) [place] Aspirin 81 2020-0 Yes 81 mg = [...] 1-24 PO, BID, 0 l 17:20: Refill(s) [place] 00 citalopram 2020-0 Yes 10 mg = 1 Me moria 10 mg oral 1-24 tab, PO, l tablet 17:20: Daily, # [place] 00 30 tab, 0 Refill(s) atorvastati 2020-0 Yes PO, Daily, Memoria n 1-24 0 l 17:20: Refill(s) Aspirin 81 2020-0 Yes 81 mg = 1 Me moria MG Enteric 1-24 tab, PO, l Coated 17:20: Daily, # [place] Tablet 00 90 tab, 3 Refill(s) levothyroxi [...] tab, PO, l tablet 17:20: Daily, # [place] 00 30 tab, 0 Refill(s) metoprolol 2020-0 Yes 100 mg = 1 M emoria 100 mg oral 1-24 tab, PO, l tablet, 17:20: Daily, # [place] n extended 00 30 tab, 0 release Refill(s) atorvastati 2020-0 Yes PO, Daily, Memoria n 1-24 0 l 17:20: Refill(s) [place] Aspirin 81 2020-0 Yes 81 mg = [...] 1-24 PO, BID, 0 l 17:20: Refill(s) [place] 00 citalopram 2020-0 Yes 10 mg = 1 Me moria 10 mg oral 1-24 tab, PO, l tablet 17:20: Daily, # [place] 00 30 tab, 0 Refill(s) metoprolol 2020-0 [...] tab, PO, l Coated 17:20: Daily, # [place] Tablet 00 90 tab, 3 Refill(s) levothyroxi [...] tab, PO, l tablet 17:20: Daily, # [place] 00 30 tab, 0 Refill(s) metoprolol 2020-0 [...] Memoria n 1-24 0 l 17:20: Refill(s) [place] Aspirin 81 2020-0 Yes 81 mg = [...] tab, PO, l tablet 17:20: Daily, # [place] 00 30 tab, 0 Refill(s) metoprolol 2020-0 Yes 100 mg = 1 M emoria 100 mg oral 1-24 tab, PO, l tablet, 17:20: Daily, # [place] n extended 00 30 tab, 0 release Refill(s) atorvastati 2020-0 Yes PO, Daily, Memoria n 1-24 0 l 17:20: Refill(s) [place] Aspirin 81 2020-0 Yes 81 mg = 1 Me moria MG Enteric 1-24 tab, PO, l Coated 17:20: Daily, # [place] Tablet 00 90 tab, 3 Refill(s) levothyroxi [...] tab, PO, l tablet 17:20: Daily, # [place] 00 30 tab, 0 Refill(s) metoprolol 2020-0 [...] tab, PO, l tablet 17:20: Daily, # [place] 00 30 tab, 0 Refill(s) metoprolol 2020-0 Yes 100 mg = 1 M emoria 100 mg oral 1-24 tab, PO, l tablet, 17:20: Daily, # [place] n extended 00 30 tab, 0 release Refill(s) atorvastati 2020-0 Yes PO, Daily, Memoria n 1-24 0 l 17:20: Refill(s) [place] Aspirin 81 2020-0 Yes 81 mg = [...] tab, PO, l tablet 17:20: Daily, # [place] 00 30 tab, 0 Refill(s) metoprolol 2020-0 [...] tab, PO, l Coated 17:20: Daily, # [place] Tablet 00 90 tab, 3 Refill(s) levothyroxi [...] # Jh 00 30 tab, 0 Refill(s) lithium 2020-0 Yes 450mg Take 450 [...] mouth ity of mg tablet 18:44: daily. [place] [address] Medical Branch metoprolol 2020-0 Yes 100mg Take 100 Un debo succinate 1-03 mg by ity of 100 mg CSpX 18:44: mouth [place] 18 daily. Medical Branch atorvastati 2020-0 Yes 10mg Take 10 mg Univers n 10 mg 1-03 by mouth ity of tablet 18:44: at [place] 18 bedtime. Medical Branch aspirin 81 2020-0 Yes 81mg Take 81 mg U nivers mg chewable 1-03 by mouth ity of tablet 18:44: daily. [place] [address] Medical Branch citalopram 2020-0 Yes 20mg Take 20 mg U nivers 20 mg 1-03 by mouth ity of tablet 18:44: daily. [place] [address] Medical Branch lithium 2020-0 Yes 450mg Take [...] mouth ity of mg tablet 18:44: daily. [place] [address] Medical Branch metoprolol 2020-0 Yes 100mg Take 100 Un debo succinate 1-03 mg by ity of 100 mg CSpX 18:44: mouth [place] 18 daily. Medical Branch atorvastati 2020-0 Yes 10mg Take 10 mg Univers n 10 mg 1-03 by mouth ity of tablet 18:44: at [place] 18 bedtime. Medical Branch aspirin 81 2020-0 Yes 81mg Take 81 mg U nivers mg chewable 1-03 by mouth ity of tablet 18:44: daily. [place] [address] Medical Branch citalopram 2020-0 Yes 20mg Take 20 mg U nivers 20 mg 1-03 by mouth ity of tablet 18:44: daily. [place] [address] Medical Branch lithium 2020-0 Yes 450mg Take [...] mouth ity of mg tablet 18:44: daily. [place] [address] Medical Branch metoprolol 2020-0 Yes 100mg Take [...] by mouth ity of tablet 18:44: daily. [place] [address] Medical Branch citalopram 2020-0 Yes 20mg Take 20 mg U nivers 20 mg 1-03 by mouth ity of tablet 18:44: daily. [place] [address] Medical Branch lithium 2020-0 Yes 450mg Take [...] mouth ity of mg tablet 18:44: daily. [place] [address] Medical Branch metoprolol 2020-0 Yes 100mg Take 100 Un debo succinate 1-03 mg by ity of 100 mg CSpX 18:44: mouth [place] 18 daily. Medical Branch atorvastati 2020-0 Yes 10mg Take 10 mg Univers n 10 mg 1-03 by mouth ity of tablet 18:44: at [place] 18 bedtime. Medical Branch aspirin 81 2020-0 Yes 81mg Take 81 mg U nivers mg chewable 1-03 by mouth ity of tablet 18:44: daily. [place] [address] Medical Branch citalopram 2020-0 Yes 20mg Take 20 mg U nivers 20 mg 1-03 by mouth ity of tablet 18:44: daily. [place] [address] Medical Branch lithium 2020-0 Yes 450mg Take 450 Unive rs carbonate 1-03 mg by ity of CR 450 mg 18:44: mouth 2 [place] SR tablet 18 (two) Medical times Branch daily. levothyroxi 2020-0 Yes 75ug Take 75 Uni vers ne 75 mcg 1-03 mcg by ity of tablet 18:44: mouth [place] 18 every Medical morning. Branch clopidogrel 2019-0 Yes 75mg Take 75 mg Univers (PLAVIX) 75 1-03 by mouth ity of mg tablet 18:44: daily. [place] [address] Medical Branch metoprolol 2019-0 Yes 100mg Take 100 Un debo succinate 1-03 mg by ity of 100 mg CSpX 18:44: mouth [place] 18 daily. Medical Branch atorvastati 2019-0 Yes 10mg Take 10 mg Univers n 10 mg 1-03 by mouth ity of tablet 18:44: at [place] [address] bedtime. Medical Branch aspirin 81 2020-0 Yes 81mg Take 81 mg U nivers mg chewable 1-03 by mouth ity of tablet 18:44: daily. [place] [address] Medical Branch citalopram 2019-0 Yes 20mg Take 20 mg U nivers 20 mg 1-03 by mouth ity of tablet 18:44: daily. [place] [address] Medical Branch ipratropium 2017-04 Yes 3mL Inhale 3 Un [...] blood 2022-02-24 12:00:00 145 mm[Hg] Univer sity [facility] Diastolic blood 2022-02-24 12:00:00 81 [facility]Hg[facility] 2022-02-24 12:00:00 88 /min [facility] Respiratory rate 2022-02-24 12:00:00 18 /min [facility] Oxygen saturation in 2022-02-24 12:00:00 98 /min [facility] Arterial blood by [facility] Pulse oximetry [place] Body temperature 2022-02-24 11:00:00 36.78 Margarita [facility] Body height 2022-02-24 11:00:00 157.5 cm [facility] Body weight 2022-02-24 11:00:00 105.235 kg [facility] BMI 2022-02-24 11:00:00 42.43 kg/m2 [facility] Systolic blood 2022-01-15 11:49:00 138 mm[Hg] Univer sity [facility] Diastolic blood 2022-01-15 11:49:00 74 mm[Hg] Unive rsity [facility] Heart rate 2022-01-15 11:49:00 80 /min [facility] Respiratory rate 2022-01-15 11:49:00 22 /min [facility] Oxygen saturation in 2022-01-15 11:49:00 91 /min [facility] Arterial blood by [facility] Pulse oximetry Branch Body temperature 2022-01-15 10:01:00 35.89 Margarita [facility] Body height 2022-01-15 10:01:00 157.5 cm [facility] Body weight 2022-01-15 10:01:00 103.42 kg [facility] BMI 2022-01-15 10:01:00 41.70 kg/m2 [facility] BP Systolic 2022-03-06 09:46:00 112 mm[Hg] BP [...] Chasity Peñaloza Height 2019-04-24 17:15:00 157.48 cm Felix Peñaloza Weight 2019-04-24 17:15:00 Felix Peñaloza BMI Calculated 2019-04-24 17:15:00 Maria L Kelley Procedures Procedure Date / Time Performing Clinician Source Performed REFERRAL- 2022-03-06 06:01:00 Doctor Unaabigail, [facility] REQUEST/RESPONSE [place] [facility] XR CHEST 1 VW 2022-02-24 11:28:44 Dolores Patterson [facility] LIPASE 2022-02-24 11:08:00 Dolores Patterson [facility] TROPONIN I 2022-02-24 11:08:00 Dolores Patterson [facility] COMP. METABOLIC PANEL 2022-02-24 11:08:00 Dolores Patterson [facility] ([id number]) [facility] CBC WITH DIFF 2022-02-24 11:08:00 Dolores Patterson [facility] PROTHROMBIN TIME / INR 2022-02-24 11:08:00 Dolores Patterson [facility] ACTIVATED PARTIAL 2022-02-24 11:08:00 Dolores Patterson [facility] THRMPLAS DANNA [facility] RAPID INFLUENZA A/B 2022-02-24 11:08:00 Dolores Patterson [facility] CONSENT/REFUSAL FOR 2022-02-24 10:53:13 Doctor Unassmatthew, [facility] DIAGNOSIS AND TREATMENT [facility] [facility] XR CHEST 1 VW 2022-01-15 10:43:31 Rustam Looney [facility] URINALYSIS 2022-01-15 10:13:00 Rustam Looney [facility] LIPASE 2022-01-15 10:05:00 Rustam Looney [facility] TROPONIN I 2022-01-15 10:05:00 Rustam Looney [facility] COMP. METABOLIC PANEL 2022-01-15 10:05:00 Rustam Looney [facility] ([id number]) Medical [place] CBC WITH DIFF 2022-01-15 10:05:00 Rustam Looney [facility] PROTHROMBIN TIME / INR 2022-01-15 10:05:00 Rustam Looney [facility] ACTIVATED PARTIAL 2022-01-15 10:05:00 Rustam Looney [facility] THRMPLAS DANNA [facility] N-TERMINAL PRO-BNP 2022-01-15 10:05:00 Rustam Looney [facility] CONSENT/REFUSAL FOR 2022-01-15 09:53:55 Doctor Unassigned, [facility] DIAGNOSIS AND TREATMENT [facility] [facility] REFERRAL- 2021-08-09 05:01:00 Doctor Unaabigail, [facility] REQUEST/RESPONSE [facility] [facility] Abdominoplasty 2003-04-01 00:00:00 [facility] mcneal 1991-04-01 00:00:00 Felix mcneal section<sup>1</sup> Plan of Care Planned Activity Planned Date Details Comments Source Goal Plan of Care Note [code = 30677-7] Goal Plan of Care Note [code = 47262-4] Goal Plan of Care Note [code = 42588-7] Goal Plan of Care Note [code = 68754-1] Goal Plan of Care Note [code = 81096-4] Goal Plan of Care Note [code = 32467-4] Goal Plan of Care Note [code = 08725-5] Goal Plan of Care Note [code = 27320-8] Goal Plan of Care Note [code = 18054-8] Goal Plan of Care Note [code = 22257-2] Goal Plan of Care Note [code = 11182-4] Goal Plan of Care Note [code = 94329-0] Goal Plan of Care Note [code = 87559-3] Goal Plan of Care Note [code = 95681-5] Goal Plan of Care Note [code = 89786-2] Goal Plan of Care Note [code = 74349-3] Goal Plan of Care Note [code = 30752-1] Goal Plan of Care Note [code = 66500-0] Goal Plan of Care Note [code = 56654-0] Goal Plan of Care Note [code = 22770-2] Goal Plan of Care Note [code = 18516-8] Goal Plan of Care Note [code = 00335-0] Goal Plan of Care Note [code = 92581-8] Goal Plan of Care Note [code = 25858-6] Goal Plan of Care Note [code = 80107-5] Goal Plan of Care Note [code = 38760-8] Goal Plan of Care Note [code = 17828-3] Goal Plan of Care Note [code = 72810-9] Goal Plan of Care Note [code = 57957-0] Goal Plan of Care Note [code = 04213-8] Goal Plan of Care Note [code = 79611-5] Goal Plan of Care Note [code = 82387-7] Goal Plan of Care Note [code = 53838-9] Goal Plan of Care Note [code = 32691-0] Goal Plan of Care Note [code = 94785-8] Goal Plan of Care Note [code = 19002-4] Goal Plan of Care Note [code = 84693-5] Goal Plan of Care Note [code = 08974-6] Goal Plan of Care Note [code = 27596-1] Goal Plan of Care Note [code = 06563-2] Goal Plan of Care Note [code = 67205-7] Goal Plan of Care Note [code = 44246-4] Goal Plan of Care Note [code = 10437-6] Goal Plan of Care Note [code = 36748-3] Goal Plan of Care Note [code = 13594-0] Goal Plan of Care Note [code = 26151-1] Goal Plan of Care Note [code = 96347-3] Goal Plan of Care Note [code = 63840-6] Goal Plan of Care Note [code = 68941-2] Goal Plan of Care Note [code = 33319-3] Goal Plan of Care Note [code = 45068-1] Goal Plan of Care Note [code = 05911-7] Goal Plan of Care Note [code = 58327-6] Goal Plan of Care Note [code = 31907-6] Goal Plan of Care Note [code = 25456-7] Goal Plan of Care Note [code = 82722-8] Goal Plan of Care Note [code = 51526-3] Goal Plan of Care Note [code = 44329-2] Goal Plan of Care Note [code = 60782-6] Goal Plan of Care Note [code = 53262-9] Goal Plan of Care Note [code = 85709-6] Goal Plan of Care Note [code = 73020-8] Goal Plan of Care Note [code = 20045-9] Goal Plan of Care Note [code = 26379-2] Goal Plan of Care Note [code = 52082-4] Goal Plan of Care Note [code = 57401-8] Goal Plan of Care Note [code = 56061-2] Goal Plan of Care Note [code = 08602-6] Goal Plan of Care Note [code = 45922-7] Goal Plan of Care Note [code = 73884-2] Goal Plan of Care Note [code = 58442-6] Goal Plan of Care Note [code = 40651-8] Goal Plan of Care Note [code = 01352-7] Goal Plan of Care Note [code = 50871-8] Goal Plan of Care Note [code = 38811-2] Goal Plan of Care Note [code = 63838-6] Goal Plan of Care Note [code = 19027-9] Goal Plan of Care Note [code = 12054-1] Goal Plan of Care Note [code = 77473-6] Goal Plan of Care Note [code = 21376-4] Goal Plan of Care Note [code = 38182-9] Goal Plan of Care Note [code = 53573-6] Goal Plan of Care Note [code = 78111-9] Goal Plan of Care Note [code = 35987-7] Goal Plan of Care Note [code = 09336-0] Goal Plan of Care Note [code = 85218-4] Goal Plan of Care Note [code = 93479-3] Goal Plan of Care Note [code = 31383-7] Goal Plan of Care Note [code = 40088-0] Goal Plan of Care Note [code = 16698-7] Goal Plan of Care Note [code = 00981-1] Goal Plan of Care Note [code = 90044-7] Goal Plan of Care Note [code = 05723-1] Goal Plan of Care Note [code = 83605-5] Goal Plan of Care Note [code = 89487-6] Goal Plan of Care Note [code = 57503-1] Goal Plan of Care Note [code = 10265-5] Goal Plan of Care Note [code = 16620-3] Goal Plan of Care Note [code = 07138-5] Goal Plan of Care Note [code = 96202-7] Goal Plan of Care Note [code = 82534-1] Goal Plan of Care Note [code = 93201-1] Goal Plan of Care Note [code = 33082-0] Goal Plan of Care Note [code = 76649-3] Goal Plan of Care Note [code = 75767-4] Goal Plan of Care Note [code = 84835-3] Goal Plan of Care Note [code = 76571-1] Goal Plan of Care Note [code = 46941-1] Goal Plan of Care Note [code = 30418-3] Goal Plan of Care Note [code = 01683-2] Goal Plan of Care Note [code = 93318-2] Goal Plan of Care Note [code = 45155-9] Goal Plan of Care Note [code = 11559-9] Goal Plan of Care Note [code = 74236-7] Goal Plan of Care Note [code = 68333-8] Goal Plan of Care Note [code = 33448-2] Goal Plan of Care Note [code = 16263-6] Goal Plan of Care Note [code = 77111-7] Goal Plan of Care Note [code = 17738-3] Goal Plan of Care Note [code = 32019-4] Goal Plan of Care Note [code = 37569-6] Goal Plan of Care Note [code = 72875-6] Goal Plan of Care Note [code = 13438-5] Goal Plan of Care Note [code = 99241-7] Goal Plan of Care Note [code = 20170-4] Goal Plan of Care Note [code = 80123-5] Goal Plan of Care Note [code = 14399-8] Goal Plan of Care Note [code = 79016-7] Goal Plan of Care Note [code = 51376-8] Goal Plan of Care Note [code = 54231-7] Goal Plan of Care Note [code = 62663-2] Goal Plan of Care Note [code = 14315-9] Goal Plan of Care Note [code = 87103-6] Goal Plan of Care Note [code = 48153-5] Goal Plan of Care Note [code = 52628-9] Goal Plan of Care Note [code = 19438-9] Goal Plan of Care Note [code = 82190-2] Goal Plan of Care Note [code = 32606-7] Goal Plan of Care Note [code = 83335-9] Goal Plan of Care Note [code = 07076-3] Goal Plan of Care Note [code = 17944-8] Goal Plan of Care Note [code = 23341-5] Goal Plan of Care Note [code = 01865-7] Goal Plan of Care Note [code = 66422-4] Goal Plan of Care Note [code = 86625-2] Goal Plan of Care Note [code = 86993-9] Goal Plan of Care Note [code = 93953-9] Goal Plan of Care Note [code = 30436-6] Goal Plan of Care Note [code = 83026-3] Goal Plan of Care Note [code = 12190-1] Goal Plan of Care Note [code = 59838-9] Goal Plan of Care Note [code = 58205-0] Goal Plan of Care Note [code = 18639-4] Goal Plan of Care Note [code = 06503-9] Goal Plan of Care Note [code = 91710-8] Goal Plan of Care Note [code = 43354-9] Goal Plan of Care Note [code = 75837-4] Goal Plan of Care Note [code = 14735-4] Goal Plan of Care Note [code = 35421-3] Goal Plan of Care Note [code = 27758-5] Goal Plan of Care Note [code = 50122-9] Goal Plan of Care Note [code = 97310-1] Goal Plan of Care Note [code = 82899-0] Goal Plan of Care Note [code = 48050-5] Goal Plan of Care Note [code = 95085-9] Goal Plan of Care Note [code = 91372-9] Goal Plan of Care Note [code = 17531-5] Goal Plan of Care Note [code = 81060-3] Goal Plan of Care Note [code = 35542-6] Goal Plan of Care Note [code = 20456-0] Goal Plan of Care Note [code = 87533-7] Goal Plan of Care Note [code = 51526-9] Goal Plan of Care Note [code = 87713-2] Goal Plan of Care Note [code = 75153-4] Goal Plan of Care Note [code = 02448-3] Goal Plan of Care Note [code = 74700-8] Goal Plan of Care Note [code = 68824-4] Goal Plan of Care Note [code = 05386-6] Goal Plan of Care Note [code = 45170-3] Goal Plan of Care Note [code = 06013-4] Goal Plan of Care Note [code = 15983-1] Goal Plan of Care Note [code = 23409-6] Goal Plan of Care Note [code = 63990-6] Goal Plan of Care Note [code = 40195-3] Goal Plan of Care Note [code = 00309-5] Goal Plan of Care Note [code = 74065-3] Goal Plan of Care Note [code = 61541-5] Goal Plan of Care Note [code = 54353-3] Goal Plan of Care Note [code = 23170-9] Goal Plan of Care Note [code = 56524-0] Goal Plan of Care Note [code = 66583-3] Goal Plan of Care Note [code = 58176-8] Goal Plan of Care Note [code = 81641-0] Goal Plan of Care Note [code = 94021-7] Goal Plan of Care Note [code = 84681-5] Goal Plan of Care Note [code = 46729-8] Goal Plan of Care Note [code = 54565-0] Goal Plan of Care Note [code = 83915-2] Goal Plan of Care Note [code = 36755-7] Goal Plan of Care Note [code = 33460-6] Goal Plan of Care Note [code = 78194-4] Goal Plan of Care Note [code = 30102-2] Goal Plan of Care Note [code = 40007-5] Goal Plan of Care Note [code = 88406-0] Goal Plan of Care Note [code = 63344-6] Goal Plan of Care Note [code = 31278-9] Goal Plan of Care Note [code = 38293-9] Goal Plan of Care Note [code = 98563-3] Goal Plan of Care Note [code = 09708-3] Goal Plan of Care Note [code = 17053-3] Goal Plan of Care Note [code = 73120-8] Goal Plan of Care Note [code = 96702-3] Goal Plan of Care Note [code = 07694-9] Goal Plan of Care Note [code = 35633-6] Goal Plan of Care Note [code = 70818-8] Goal Plan of Care Note [code = 84641-6] Goal Plan of Care Note [code = 29777-8] Goal Plan of Care Note [code = 98903-6] Goal Plan of Care Note [code = 86611-2] Goal Plan of Care Note [code = 00991-8] Goal Plan of Care Note [code = 87567-4] Goal Plan of Care Note [code = 70082-6] Goal Plan of Care Note [code = 82706-1] Goal Plan of Care Note [code = 65492-1] Goal Plan of Care Note [code = 28463-2] Goal Plan of Care Note [code = 98865-4] Goal Plan of Care Note [code = 31063-1] Goal Plan of Care Note [code = 60595-8] Goal Plan of Care Note [code = 69209-0] Goal Plan of Care Note [code = 03151-0] Goal Plan of Care Note [code = 06953-0] Goal Plan of Care Note [code = 52697-1] Goal Plan of Care Note [code = 20181-4] Goal Plan of Care Note [code = 16259-5] Goal Plan of Care Note [code = 49512-8] Goal Plan of Care Note [code = 62364-7] Goal Plan of Care Note [code = 83139-8] Goal Plan of Care Note [code = 26164-6] Goal Plan of Care Note [code = 35386-2] Goal Plan of Care Note [code = 53162-0] Goal Plan of Care Note [code = 78630-1] Goal Plan of Care Note [code = 15073-9] Goal Plan of Care Note [code = 41828-9] Goal Plan of Care Note [code = 64035-7] Goal Plan of Care Note [code = 82388-4] Goal Plan of Care Note [code = 93546-8] Goal Plan of Care Note [code = 63154-0] Goal Plan of Care Note [code = 73025-2] Goal Plan of Care Note [code = 72243-1] Goal Plan of Care Note [code = 71368-0] Goal Plan of Care Note [code = 39841-0] Goal Plan of Care Note [code = 60464-7] Goal Plan of Care Note [code = 48504-6] Goal Plan of Care Note [code = 21022-0] Goal Plan of Care Note [code = 57809-1] Goal Plan of Care Note [code = 77691-7] Goal Plan of Care Note [code = 85034-5] Goal Plan of Care Note [code = 83761-7] Goal Plan of Care Note [code = 82201-9] Goal Plan of Care Note [code = 89079-9] Goal Plan of Care Note [code = 88564-0] Goal Plan of Care Note [code = 93231-8] Goal Plan of Care Note [code = 36800-9] Goal Plan of Care Note [code = 80180-6] Goal Plan of Care Note [code = 28944-9] Goal Plan of Care Note [code = 14917-8] Goal Plan of Care Note [code = 90701-4] Goal Plan of Care Note [code = 19822-3] Goal Plan of Care Note [code = 77910-0] Goal Plan of Care Note [code = 94307-1] Goal Plan of Care Note [code = 33128-3] Goal Plan of Care Note [code = 40464-8] Goal Plan of Care Note [code = 70792-2] Goal Plan of Care Note [code = 28324-9] Goal Plan of Care Note [code = 19423-9] Goal Plan of Care Note [code = 60354-0] Goal Plan of Care Note [code = 88345-5] Goal Plan of Care Note [code = 95823-1] Goal Plan of Care Note [code = 71978-1] Goal Plan of Care Note [code = 21336-6] Goal Plan of Care Note [code = 37165-3] Goal Plan of Care Note [code = 89672-2] Goal Plan of Care Note [code = 35641-6] Goal Plan of Care Note [code = 75342-0] Goal Plan of Care Note [code = 02828-7] Goal Plan of Care Note [code = 48308-4] Goal Plan of Care Note [code = 73276-6] Goal Plan of Care Note [code = 86204-8] Goal Plan of Care Note [code = 78147-3] Goal Plan of Care Note [code = 51147-1] Goal Plan of Care Note [code = 70555-0] Goal Plan of Care Note [code = 85466-0] Goal Plan of Care Note [code = 13203-1] Goal Plan of Care Note [code = 64961-9] Goal Plan of Care Note [code = 82941-9] Goal Plan of Care Note [code = 89207-6] Goal Plan of Care Note [code = 88727-3] Goal Plan of Care Note [code = 36883-2] Goal Plan of Care Note [code = 78058-9] Goal Plan of Care Note [code = 36801-7] Goal Plan of Care Note [code = 24014-8] Goal Plan of Care Note [code = 19161-0] Goal Plan of Care Note [code = 41738-7] Goal Plan of Care Note [code = 31605-6] Goal Plan of Care Note [code = 31089-5] Goal Plan of Care Note [code = 42498-1] Goal Plan of Care Note [code = 22235-6] Goal Plan of Care Note [code = 59634-2] Goal Plan of Care Note [code = 70195-5] Goal Plan of Care Note [code = 76388-1] Goal Plan of Care Note [code = 77949-7] Goal Plan of Care Note [code = 16938-3] Goal Plan of Care Note [code = 06612-0] Goal Plan of Care Note [code = 67931-9] Goal Plan of Care Note [code = 23400-3] Goal Plan of Care Note [code = 65849-8] Goal Plan of Care Note [code = 13730-4] Goal Plan of Care Note [code = 07506-4] Goal Plan of Care Note [code = 94178-5] Goal Plan of Care Note [code = 75607-5] Goal Plan of Care Note [code = 13291-8] Goal Plan of Care Note [code = 08105-5] Goal Plan of Care Note [code = 60376-4] Goal Plan of Care Note [code = 99965-7] Goal Plan of Care Note [code = 63698-5] Goal Plan of Care Note [code = 54662-2] Goal Plan of Care Note [code = 73437-8] Goal Plan of Care Note [code = 42185-8] Goal Plan of Care Note [code = 56796-0] Goal Plan of Care Note [code = 13316-4] Goal Plan of Care Note [code = 24757-8] Goal Plan of Care Note [code = 52016-1] Goal Plan of Care Note [code = 80350-5] Goal Plan of Care Note [code = 10699-8] Goal Plan of Care Note [code = 68632-6] Goal Plan of Care Note [code = 56550-6] Goal Plan of Care Note [code = 40560-7] Goal Plan of Care Note [code = 72844-9] Goal Plan of Care Note [code = 98777-0] Goal Plan of Care Note [code = 54260-7] Goal Plan of Care Note [code = 12578-7] Goal Plan of Care Note [code = 92969-9] Goal Plan of Care Note [code = 51567-5] Goal Plan of Care Note [code = 46693-2] Goal Plan of Care Note [code = 27129-2] Goal Plan of Care Note [code = 04914-3] Goal Plan of Care Note [code = 98087-0] Goal Plan of Care Note [code = 39381-0] Goal Plan of Care Note [code = 00280-3] Goal Plan of Care Note [code = 90318-2] Goal Plan of Care Note [code = 93241-1] Goal Plan of Care Note [code = 34715-8] Goal Plan of Care Note [code = 36654-3] Goal Plan of Care Note [code = 81348-4] Goal Plan of Care Note [code = 13257-8] Goal Plan of Care Note [code = 03567-2] Goal Plan of Care Note [code = 70600-2] Goal Plan of Care Note [code = 88641-7] Goal Plan of Care Note [code = 68017-5] Goal Plan of Care Note [code = 27775-1] Goal Plan of Care Note [code = 59793-6] Goal Plan of Care Note [code = 64246-1] Goal Plan of Care Note [code = 44328-8] Goal Plan of Care Note [code = 37965-5] Goal Plan of Care Note [code = 04653-4] Goal Plan of Care Note [code = 00745-3] Goal Plan of Care Note [code = 29104-6] Goal Plan of Care Note [code = 82474-9] Goal Plan of Care Note [code = 15976-4] Goal Plan of Care Note [code = 44593-1] Goal Plan of Care Note [code = 04936-0] Goal Plan of Care Note [code = 38975-4] Goal Plan of Care Note [code = 75896-0] Goal Plan of Care Note [code = 88452-8] Goal Plan of Care Note [code = 37943-7] Goal Plan of Care Note [code = 14882-9] Goal Plan of Care Note [code = 13964-9] Goal Plan of Care Note [code = 37479-9] Goal Plan of Care Note [code = 20524-8] Goal Plan of Care Note [code = 88449-9] Goal Plan of Care Note [code = 67825-1] Goal Plan of Care Note [code = 87525-7] Goal Plan of Care Note [code = 79166-1] Goal Plan of Care Note [code = 87668-0] Goal Plan of Care Note [code = 91818-8] Goal Plan of Care Note [code = 94455-4] Goal Plan of Care Note [code = 28678-1] Goal Plan of Care Note [code = 51915-7] Goal Plan of Care Note [code = 33614-7] Goal Plan of Care Note [code = 36349-1] Goal Plan of Care Note [code = 80052-8] Goal Plan of Care Note [code = 36481-2] Goal Plan of Care Note [code = 76079-4] Goal Plan of Care Note [code = 04016-9] Goal Plan of Care Note [code = 90326-6] Goal Plan of Care Note [code = 43622-6] Goal Plan of Care Note [code = 46834-6] Goal Plan of Care Note [code = 03480-4] Goal Plan of Care Note [code = 71948-7] Goal Plan of Care Note [code = 05541-8] Goal Plan of Care Note [code = 22274-2] Goal Plan of Care Note [code = 71301-6] Goal Plan of Care Note [code = 48391-6] Goal Plan of Care Note [code = 22241-8] Goal Plan of Care Note [code = 50753-7] Goal Plan of Care Note [code = 94206-8] Goal Plan of Care Note [code = 30897-6] Goal Plan of Care Note [code = 65187-9] Goal Plan of Care Note [code = 37591-1] Goal Plan of Care Note [code = 59886-3] Goal Plan of Care Note [code = 43521-7] Goal Plan of Care Note [code = 11907-7] Goal Plan of Care Note [code = 93558-3] Goal Plan of Care Note [code = 72484-6] Goal Plan of Care Note [code = 13951-3] Goal Plan of Care Note [code = 86168-5] Goal Plan of Care Note [code = 47997-1] Goal Plan of Care Note [code = 93614-9] Goal Plan of Care Note [code = 69162-3] Goal Plan of Care Note [code = 53062-0] Goal Plan of Care Note [code = 27488-6] Goal Plan of Care Note [code = 44570-6] Goal Plan of Care Note [code = 82956-5] Goal Plan of Care Note [code = 49674-7] Goal Plan of Care Note [code = 67308-6] Goal Plan of Care Note [code = 25067-5] Goal Plan of Care Note [code = 58375-1] Goal Plan of Care Note [code = 98538-8] Goal Plan of Care Note [code = 10324-9] Goal Plan of Care Note [code = 22598-6] Goal Plan of Care Note [code = 18557-2] Goal Plan of Care Note [code = 88967-0] Goal Plan of Care Note [code = 78452-5] Goal Plan of Care Note [code = 02680-8] Goal Plan of Care Note [code = 03768-4] Goal Plan of Care Note [code = 75668-7] Goal Plan of Care Note [code = 77362-6] Goal Plan of Care Note [code = 35654-8] Goal Plan of Care Note [code = 20458-2] Goal Plan of Care Note [code = 06020-9] Goal Plan of Care Note [code = 55436-5] Goal Plan of Care Note [code = 85559-1] Goal Plan of Care Note [code = 91805-0] Goal Plan of Care Note [code = 47709-5] Goal Plan of Care Note [code = 17275-3] Goal Plan of Care Note [code = 37016-4] Goal Plan of Care Note [code = 38563-0] Goal Plan of Care Note [code = 61712-1] Goal Plan of Care Note [code = 73684-5] Goal Plan of Care Note [code = 18628-8] Goal Plan of Care Note [code = 92988-4] Goal Plan of Care Note [code = 77036-2] Goal Plan of Care Note [code = 27015-1] Goal Plan of Care Note [code = 60267-7] Goal Plan of Care Note [code = 81506-4] Goal Plan of Care Note [code = 38128-6] Goal Plan of Care Note [code = 30904-9] Goal Plan of Care Note [code = 15601-1] Goal Plan of Care Note [code = 57657-2] Goal Plan of Care Note [code = 24157-1] Goal Plan of Care Note [code = 03271-5] Goal Plan of Care Note [code = 19955-7] Goal Plan of Care Note [code = 73772-4] Goal Plan of Care Note [code = 30814-0] Goal Plan of Care Note [code = 17762-5] Goal Plan of Care Note [code = 80387-0] Goal Plan of Care Note [code = 73306-1] Goal Plan of Care Note [code = 44978-0] Goal Plan of Care Note [code = 12475-5] Goal Plan of Care Note [code = 05900-0] Goal Plan of Care Note [code = 15926-2] Goal Plan of Care Note [code = 38024-0] Goal Plan of Care Note [code = 16587-1] Goal Plan of Care Note [code = 06629-6] Goal Plan of Care Note [code = 00357-5] Goal Plan of Care Note [code = 97406-4] Goal Plan of Care Note [code = 66778-3] Goal Plan of Care Note [code = 90721-5] Goal Plan of Care Note [code = 37920-9] Goal Plan of Care Note [code = 69630-1] Goal Plan of Care Note [code = 22296-5] Goal Plan of Care Note [code = 54323-3] Goal Plan of Care Note [code = 71659-3] Goal Plan of Care Note [code = 10161-7] Goal Plan of Care Note [code = 15757-1] Goal Plan of Care Note [code = 84361-4] Goal Plan of Care Note [code = 06073-5] Goal Plan of Care Note [code = 26699-1] Goal Plan of Care Note [code = 16118-7] Goal Plan of Care Note [code = 94458-1] Goal Plan of Care Note [code = 87481-7] Goal Plan of Care Note [code = 47656-9] Goal Plan of Care Note [code = 63150-4] Goal Plan of Care Note [code = 37516-3] Goal Plan of Care Note [code = 47968-6] Goal Plan of Care Note [code = 30956-7] Goal Plan of Care Note [code = 43735-8] Goal Plan of Care Note [code = 63117-8] Goal Plan of Care Note [code = 99638-7] Goal Plan of Care Note [code = 32063-5] Goal Plan of Care Note [code = 61989-7] Goal Plan of Care Note [code = 41885-3] Goal Plan of Care Note [code = 55232-0] Goal Plan of Care Note [code = 93067-3] Goal Plan of Care Note [code = 22915-8] Goal Plan of Care Note [code = 71762-7] Goal Plan of Care Note [code = 83278-0] Goal Plan of Care Note [code = 22703-2] Goal Plan of Care Note [code = 51301-1] Goal Plan of Care Note [code = 18191-2] Goal Plan of Care Note [code = 46910-6] Goal Plan of Care Note [code = 40728-1] Goal Plan of Care Note [code = 32365-0] Goal Plan of Care Note [code = 15831-5] Goal Plan of Care Note [code = 95284-5] Goal Plan of Care Note [code = 85756-5] Goal Plan of Care Note [code = 25283-5] Goal Plan of Care Note [code = 51790-4] Goal Plan of Care Note [code = 41380-9] Goal Plan of Care Note [code = 63897-8] Goal Plan of Care Note [code = 43378-5] Goal Plan of Care Note [code = 64423-9] Goal Plan of Care Note [code = 01605-5] Goal Plan of Care Note [code = 74585-7] Goal Plan of Care Note [code = 00155-5] Goal Plan of Care Note [code = 26756-4] Goal Plan of Care Note [code = 74263-4] Goal Plan of Care Note [code = 14877-2] Goal Plan of Care Note [code = 37143-3] Goal Plan of Care Note [code = 52661-0] Goal Plan of Care Note [code = 12175-1] Goal Plan of Care Note [code = 60221-3] Goal Plan of Care Note [code = 32847-0] Goal Plan of Care Note [code = 54723-8] Goal Plan of Care Note [code = 32308-0] Goal Plan of Care Note [code = 95924-4] Goal Plan of Care Note [code = 29719-9] Goal Plan of Care Note [code = 76731-2] Goal Plan of Care Note [code = 03740-8] Goal Plan of Care Note [code = 10315-1] Goal Plan of Care Note [code = 44655-3] Goal Plan of Care Note [code = 24385-9] Goal Plan of Care Note [code = 50293-2] Goal Plan of Care Note [code = 86287-2] Goal Plan of Care Note [code = 91348-5] Goal Plan of Care Note [code = 16313-4] Goal Plan of Care Note [code = 55331-9] Goal Plan of Care Note [code = 00292-7] Goal Plan of Care Note [code = 70770-3] Goal Plan of Care Note [code = 67407-4] Goal Plan of Care Note [code = 06423-7] Goal Plan of Care Note [code = 09168-6] Goal Plan of Care Note [code = 99782-2] Goal Plan of Care Note [code = 83033-1] Goal Plan of Care Note [code = 62569-1] Goal Plan of Care Note [code = 63532-7] Goal Plan of Care Note [code = 63325-8] Goal Plan of Care Note [code = 90521-2] Goal Plan of Care Note [code = 64956-9] Goal Plan of Care Note [code = 96424-9] Encounters Start End Encounter Admission Attending Care Care Encounter Source Date/Time Date/Time Type Type Clinicians Facility Department ID 2022-03-14 2022-03-14 Outpatient [facility] [id number] 022 Thai 16:14:51 16:14:51 1214 F Robert 2022-03-07 2022-03-07 Outpatient [facility] [id number] 022 Thai 08:57:39 08:57:39 1207 F Robert 2022-03-06 2022-03-06 Outpatient [facility] [id number] 022 Thai 08:57:24 08:57:24 1206 F [place] 2022-03-06 2022-03-06 Orders Doctor GWEN 1.2.840.114 [id number] Univers 00:00:00 00:00:00 Only Unassigned, LINA 350.1.13.10 ity of [place] [facility] 4.2.7.2.686 Renzo as [phone] [address] 2022-03-06 2022-03-06 Outpatient [id number] 26 223011-0 00:00:00 00:00:00 Visit 7948-4ece 948-4ece-b -v440-705 725-393fb5 go640a24d 34c61e 2022-03-04 2022-03-04 Outpatient [facility] [id number] 022 Thai 09:40:39 09:40:39 1204 [facility] 2022-03-04 2022-03-04 Outpatient 5e76407p- [id number] 3f 08058i-3 00:00:00 00:00:00 Visit 0h67-50n4 f87-61a2-0 -0pe1-8na fc3-7df7dd 2plov5733 mi5811 2022-03-02 2022-03-02 Outpatient [facility] 52738-1 022 Thai 08:08:33 08:08:33 1202 F Robert 2022-02-27 2022-02-27 Outpatient 7z5m2517- [id number] 9b 3i8765-8 00:00:00 00:00:00 Visit 5955-473f 955-473f-b -h9j6-nz2 9p7-ox62se 6bp5l0661 9v4586 2022-02-26 2022-02-26 Outpatient [facility] 20272-5 022 Thai 14:53:39 14:53:39 1128 F Robert 2022-02-26 2022-02-26 Outpatient 5036jmr3- [id number] 11 00keu8-1 00:00:00 00:00:00 Visit 753b-4256 53b-4256-8 -6zd5-h91 aa5-e6358m 58w6197bu 5360ba 2022-02-24 2022-02-24 Emergency X [facility] ERT [id number] Univers 04:55:00 06:12:00 , DOLORES gerardo of [facility] 2022-02-24 2022-02-24 Emergency [facility] 1.2.840.114 [id number] Univers 04:55:00 06:12:00 , Dolores YAN 350.1.13.10 i ty of [place] [address] [facility] [id number] [address] 2022-02-20 2022-02-20 Outpatient MAURY SFA 25981-5 022 Thai 11:12:21 11:12:21 1122 F Robert 2022-02-20 2022-02-20 Outpatient [id number]- [id number] a8 6493j6-q 00:00:00 00:00:00 Visit so33-7ft9 p19-5ed3-3 -857d-6cd 57d-4ux410 619d0ok3s a4ee5c 2022-02-15 2022-02-15 Outpatient 9s5o54rj- [id number] 3d 1p03fy-8 00:00:00 00:00:00 Visit 2fcc-405f fcc-405f-9 -51e9-550 7q0-00456v 82h467485 962298 4499-11-16 2022-02-14 Outpatient SFA SFA 67547-4 022 Thai 14:09:23 14:09:23 1116 F Robert 2022-02-14 2022-02-14 Outpatient 5237k036- [id number] 13j421-g 00:00:00 00:00:00 Visit r62u-03jb 69c-48ba-8 -3b52-85r y07-15c559 5745qcu1x 5cde0b 2022-02-06 2022-02-06 Outpatient SFA SFA 49392-7 022 Thai 10:02:54 10:02:54 1108 F Robert 2022-02-06 2022-02-06 Outpatient 6227o246- [id number] 26 19u778-8 00:00:00 00:00:00 Visit 0z74-9m14 i81-6r43-a -t9s2-28d 4b9-48i9iy 3qqm9x1ew c7a7ab 2022-01-15 2022-01-15 Emergency X [facility] ERT [id number] Univers 04:57:00 06:53:[facility] 2022-01-15 Emergency [facility] 1.2.214.879 [id number] Univers 04:57:00 06:53:[facility] [id number] [address] 2022-01-02 2022-01-02 Outpatient SFA SFA 45398-6 022 Thai 09:09:54 09:09:54 1004 F Robert 2022-01-02 2022-01-02 Outpatient 4z3q9ljw- [id number] 2f 9c4koo-3 00:00:00 00:00:00 Visit 784c-4105 84c-4105-8 -9o23-6dt d65-5bgk97 q46t6d799 k3e817 2021-12-26 2021-12-26 Outpatient 95iu8b0b- [id number] 70 dp1u5m-0 00:00:00 00:00:00 Visit 3fda-47a9 fda-47a9-b -m688-21l 352-41ee21 n069414mb 9444ab 2021-11-20 2021-11-20 Letter GWEN Mejia 1.2.840.114 [id number] Univers 00:00:00 00:00:00 (Out) Humberto MILLS 350.1.13.10 it y of [facility] 4.2.7.2.686 Renzo as [id number] [place] [address] [address] 2021-10-30 2021-10-30 Outpatient c1476cj9- [id number] c7 335ue8-8 00:00:00 00:00:00 Visit 2bm5-16ua ad8-42bd-9 -9211-800 211-800c65 f6418cwl3 14fbe3 2021-10-03 2021-10-03 Outpatient 0o1x5805- [id number] 5d 1d2759-0 00:00:00 00:00:00 Visit 0049-42e3 049-42e3-8 -8699-e24 699-e24b68 a2023211n 50990t 2021-08-09 2021-08-09 Orders Doctor HIDALGO 1.2.840.114 [id number] Univers 00:00:00 00:00:00 Only Unassigned, LINA 350.1.13.10 ity of [place] [address]686 Renzo as [id number] [facility] [address] 2019-05-01 2019-05-03 Outside nullFlavo [facility] [id number] Memoria 19:12:13 05:59:59 Medical r Gastroenter 00 l Records ology Sugar Herm [facility] 2019-05-01 2019-05-03 Outside nullFlavo [facility] [id number] Memoria 19:12:13 05:59:59 Medical r Gastroenter 00 l Records ology Sugar Herm [facility] 2019-05-01 2019-05-02 Outpatient [facility] [id number] 13:12:13 23:59:59 2019-04-24 2019-04-25 Outpatient nullFlavo [facility] [id number] [id number] Memoria 17:00:00 05:59:59 r Gastroenter 00 l ology Sugar [facility] 2019-04-24 2019-04-25 Outpatient nullFlavo [facility] [id number] [id number] Memoria 17:00:00 05:59:59 r Gastroenter 00 l ology Sugar [facility] 2019-04-24 2019-04-24 Outpatient SUHAIL Irwin [facility] [id number] 11:00:00 23:59:59 Nadim Torey 00 2019-04-24 2019-04-24 Outpatient KRYSTA MARY [id number] Memoria 11:00:00 11:00:00 00 l Jh 2019-04-03 2019-04-03 Outpatient X [facility] [id number] Univers 04:46:22 18:43:00 [facility] Results Test Description Test Time Test Comments Results Result Comments Source OCCULT BLD,FECAL,IMMUNOASSAY DIAG 2022-03-20 12:54:25 Test Item Value Reference Range Interpretation Comme nts OCCULT BLD, FECAL (test code NEGATIVE NEGATIVE UNLESS OTHERWISE INDICATED, ALL = 17062) TESTING PERFORM ED ATCLINICAL PATHOLOGY LABOR [employer] [address] [place] [address] TEACHER DRAMATICS: TANNER VELASQUEZ M.D. CLIA NUMBER [id number] [facility] ACCREDITATION N O. 68850-11 TROPONIN [id number] 12:00:06 Test Item Value Reference Interpretation Comments Range TROPONIN I (test 0.009 ng/mL See_Comment [Automated code = 5908227781) message] The system which generated this result [...] biotin. Lab Interpretation Normal (test code = 67826-1) [facility] METABOLIC PANEL (62381)2022-02-24 11:48:40 Test Item Value Reference Range Interpretation Comments NA (test code = 138 mmol/L 135-145 7679384584) K (test code = 4.9 mmol/L 3.5-5.0 0720845645) CL (test code = 104 mmol/L 98-108 2582069311) CO2 TOTAL (test code = 24 mmol/L 23-31 9960995868) AGAP (test code = 2-16 0606864246) BUN (test code = 15 mg/dL 7-23 7402669084) GLUCOSE (test code = 106 mg/dL 70-110 9701174384) CREATININE (test code = 0.75 mg/dL 0.50-1.04 7782657875) TOTAL BILI (test code = 0.8 mg/dL 0.1-1.3 6911360845) CALCIUM (test code = 10.7 mg/dL 8.6-10.6 H 6737469620) T PROTEIN (test code = 7.7 g/dL 6.3-8.2 1333391570) ALBUMIN (test code = 4.8 g/dL 3.5-5.0 0971869773) ALK PHOS (test code = 100 U/L 34-122 7370686390) ALTv (test code = 39 U/L 5-35 H 1742-6) AST(SGOT) (test code = 35 U/L 13-40 0776686542) eGFR (test code = mL/min/1.73m2 3907010236) OFELIA (test code = OFELIA) Association of [...] tests). Lab Interpretation Abnormal (test code = 56084-7) [id number] 11:48:25 Test Item Value Reference Range Interpretation Comments LIPASE (test code = 4969656158) 41 U/L 0-220 Lab Interpretation (test code = Normal 36226-0) [facility] 11:43:22 Test Item Value Reference Range Interpretation Comments APTT Patient (test See_Comment [Automat ed code = 3173-2) message] The system which generated this result transmitted reference range : 23 - 38 Seconds . The reference range was not used to interpr et this result as normal/abnormal . OFELIA (test code = OFELIA) [facility] patient population mean normal value for aPTT is 30 seconds. Lab Interpretation Normal (test code = 27522-8) [facility] / [id number] 11:41:21 Test Item Value Reference Range Interpretation [...] tions. Lab Interpretation (test Normal code = 59865-8) [facility] WITH [id number] 11:18:58 Test Item Value Reference Range Interpretation Comments WBC (test code = See_Comment [Automated 6690-2) message] The sy stem which generated this result transmitted reference range : 4.30 - 11.10 10*3/?L. The reference range was not used to interpret this result as normal/abnormal . RBC (test code = See_Comment [Automated 789-8) message] The sy stem which generated this [...] RDW-SD (test code = 45.1 fL 39.0-49.9 87025-9) RDW-CV (test code = 13.7 % 12.0-15.5 788-0) PLT (test code = See_Comment [Automated 777-3) message] The sy stem which generated this result transmitted reference range : 166 - 358 10*3/ ?L. The reference r emilee was not used to interpret this result as normal/abnormal . MPV (test code = 9.6 fL 9.5-12.9 88955-3) NRBC/100 WBC (test See_Comment [Automat ed code = [id number]) message] The system which generated this result transmitted reference range : 0.0 - 10.0 /100 WBCs. The refer ence range was not u sed to interpret th is result as normal/abnormal . NRBC x10^3 (test code See_Comment [Auto mated = [id number]) message] The s ystem which generated this result transmitted reference range : 10*3/?L. The reference range was not used to interpret this result as normal/abnormal . GRAN MAT (NEUT) % 76.3 % (test code = 770-8) IMM GRAN % (test code 0.40 % = [id number]) LYMPH % (test code = 12.8 % 736-9) MONO % (test code = 9.2 % 5905-5) EOS % (test code = 0.7 % 713-8) BASO % (test code = 0.6 % 706-2) GRAN MAT x10^3(ANC) 5.48 10*3/uL 1.88-7.09 (test code = 1194591302) IMM GRAN x10^3 (test 0.03 10*3/uL 0.00-0.06 code = [id number]) LYMPH x10^3 (test code 0.92 10*3/uL 1.32-3.29 L = 731-0) MONO x10^3 (test code 0.66 10*3/uL 0.33-0.92 = 742-7) EOS x10^3 (test code = 0.05 10*3/uL 0.03-0.39 711-2) BASO x10^3 (test code 0.04 10*3/uL 0.01-0.07 = 704-7) Lab Interpretation Abnormal (test code = 55925-0) [facility] TEST, THINPREP, [id number] 00:00:00 Test Item Value Reference Range Interpretation Comments SOURCE: (test code = 8001) Cervical/Endocervic al SLIDES: (test code = 8011) 1 LMP: (test code = 8021) SEE NOTE SPECIMEN ADEQUACY: (test (NOTE) code = 19391) INTERPRETATION: (test code LSIL/EPITH. = 18649) ABNORMALITY; SEE BELOW OTHER COMMENTS: (test code (NOTE) = 8081) CHICKEN CLEANER: (test Nazia Gibson code = 8101) LIGIA Longoria(ASCP)IAC PATHOLOGIST INTERPRETATION Carmen Andrade BY: (test code = 8122) [place] LOCATION: (test code = (NOTE) 99854) CPT: (test code = 8140) (NOTE) PAP TEST, THINPREP, [id number] 00:00:00 Test Item Value Reference Range Interpretation Comments SOURCE: (test code = 8001) Cervical/Endocervic al SLIDES: (test code = 8011) 1 LMP: (test code = 8021) SEE NOTE SPECIMEN ADEQUACY: (test (NOTE) code = 67439) INTERPRETATION: (test code LSIL/EPITH. = 33470) ABNORMALITY; SEE BELOW OTHER COMMENTS: (test code (NOTE) = 8081) CHICKEN CLEANER: (test Nazia Gibson code = 8101) [place],CT(ASCP)IAC PATHOLOGIST INTERPRETATION Carmen Andrade BY: (test code = 8122) M.D. LOCATION: (test code = (NOTE) 18732) CPT: (test code = 8140) (NOTE) PAP TEST, THINPREP, [id number] 00:00:00 Test Item Value Reference Range Interpretation Comments SOURCE: (test code = 8001) Cervical/Endocervic al SLIDES: (test code = 8011) 1 LMP: (test code = 8021) SEE NOTE SPECIMEN ADEQUACY: (test (NOTE) code = 46450) INTERPRETATION: (test code LSIL/EPITH. = 25345) ABNORMALITY; SEE BELOW OTHER COMMENTS: (test code (NOTE) = 8081) CHICKEN CLEANER: (test Nazia Gibson code = 8101) [place],CT(ASCP)IAC PATHOLOGIST INTERPRETATION Carmen Andrade BY: (test code = 8122) M.D. LOCATION: (test code = (NOTE) 56909) CPT: (test code = 8140) (NOTE) PAP TEST, THINPREP, [id number] 00:00:00 Test Item Value Reference Range Interpretation Comments SOURCE: (test code = 8001) Cervical/Endocervic al SLIDES: (test code = 8011) 1 LMP: (test code = 8021) SEE NOTE SPECIMEN ADEQUACY: (test (NOTE) code = 77594) INTERPRETATION: (test code LSIL/EPITH. = 25570) ABNORMALITY; SEE BELOW OTHER COMMENTS: (test code (NOTE) = 8081) CHICKEN CLEANER: (test Nazia Gibson code = 8101) [place],CT(ASCP)IAC PATHOLOGIST INTERPRETATION Carmen Andrade BY: (test code = 8122) M.D. LOCATION: (test code = (NOTE) 79827) CPT: (test code = 8140) (NOTE) PAP TEST, THINPREP, [id number] 00:00:00 Test Item Value Reference Range Interpretation Comments SOURCE: (test code = 8001) Cervical/Endocervic al SLIDES: (test code = 8011) 1 LMP: (test code = 8021) SEE NOTE SPECIMEN ADEQUACY: (test (NOTE) code = 76797) INTERPRETATION: (test code LSIL/EPITH. = 21525) ABNORMALITY; SEE BELOW OTHER COMMENTS: (test code (NOTE) = 8081) CHICKEN CLEANER: (test Nazia Gibson code = 8101) [place],CT(ASCP)IAC PATHOLOGIST INTERPRETATION Carmen Andrade BY: (test code = 8122) M.DBecca LOCATION: (test code = (NOTE) 78698) CPT: (test code = 8140) (NOTE) PAP TEST, THINPREP, [id number] 00:00:00 Test Item Value Reference Range Interpretation Comments SOURCE: (test code = 8001) Cervical/Endocervic al SLIDES: (test code = 8011) 1 LMP: (test code = 8021) SEE NOTE SPECIMEN ADEQUACY: (test (NOTE) code = 20562) INTERPRETATION: (test code LSIL/EPITH. = 18242) ABNORMALITY; SEE BELOW OTHER COMMENTS: (test code (NOTE) = 8081) CHICKEN CLEANER: (test Nazia Gibson code = 8101) [place],CT(ASCP)IAC PATHOLOGIST INTERPRETATION Carmen Andrade BY: (test code = 8122) M.DBecca LOCATION: (test code = (NOTE) 07272) CPT: (test code = 8140) (NOTE) PAP TEST, THINPREP, [id number] 00:00:00 Test Item Value Reference Range Interpretation Comments SOURCE: (test code = 8001) Cervical/Endocervic al SLIDES: (test code = 8011) 1 LMP: (test code = 8021) SEE NOTE SPECIMEN ADEQUACY: (test (NOTE) code = 05801) INTERPRETATION: (test code LSIL/EPITH. = 92643) ABNORMALITY; SEE BELOW OTHER COMMENTS: (test code (NOTE) = 8081) CHICKEN CLEANER: (test Nazia Gibson code = 8101) [place],CT(ASCP)[facility] PATHOLOGIST INTERPRETATION Carmen Lupe, BY: (test code = 8122) M.D. LOCATION: (test code = (NOTE) 46751) CPT: (test code = 8140) (NOTE) PAP TEST, THINPREP, [id number] 00:00:00 Test Item Value Reference Range Interpretation Comments SOURCE: (test code = 8001) Cervical/Endocervic al SLIDES: (test code = 8011) 1 LMP: (test code = 8021) SEE NOTE SPECIMEN ADEQUACY: (test (NOTE) code = 96419) INTERPRETATION: (test code LSIL/EPITH. = 56301) ABNORMALITY; SEE BELOW OTHER COMMENTS: (test code (NOTE) = 8081) CHICKEN CLEANER: (test Nazia Penah code = 8101) SwatiCT(ASCP)[facility] PATHOLOGIST INTERPRETATION [facility], BY: (test code = 8122) M.D. LOCATION: (test code = (NOTE) 21975) CPT: (test code = 8140) (NOTE) PAP TEST, THINPREP, [id number] 00:00:00 Test Item Value Reference Range Interpretation Comments SOURCE: (test code = 8001) Cervical/Endocervic al SLIDES: (test code = 8011) 1 LMP: (test code = 8021) SEE NOTE SPECIMEN ADEQUACY: (test (NOTE) code = 11098) INTERPRETATION: (test code LSIL/EPITH. = 13707) ABNORMALITY; SEE BELOW OTHER COMMENTS: (test code (NOTE) = 8081) CHICKEN CLEANER: (test Nazia Penah code = 8101) SwatiCT(ASCP)[facility] PATHOLOGIST INTERPRETATION [facility], BY: (test code = 8122) M.D. LOCATION: (test code = (NOTE) 90267) CPT: (test code = 8140) (NOTE) PAP TEST, THINPREP, [id number] 00:00:00 Test Item Value Reference Range Interpretation Comments SOURCE: (test code = 8001) Cervical/Endocervic al SLIDES: (test code = 8011) 1 LMP: (test code = 8021) SEE NOTE SPECIMEN ADEQUACY: (test (NOTE) code = 74984) INTERPRETATION: (test code LSIL/EPITH. = 91667) ABNORMALITY; SEE BELOW OTHER COMMENTS: (test code (NOTE) = 8081) CHICKEN CLEANER: (test Nazia Gibson code = 8101) [place],CT(ASCP)IAC PATHOLOGIST [facility] (test code = 8122) M.D. LOCATION: (test code = (NOTE) 86394) CPT: (test code = 8140) (NOTE) PAP TEST, THINPREP, [id number] 00:00:00 Test Item Value Reference Range Interpretation Comments SOURCE: (test code = 8001) Cervical/Endocervic al SLIDES: (test code = 8011) 1 LMP: (test code = 8021) SEE NOTE SPECIMEN ADEQUACY: (test (NOTE) code = 65943) INTERPRETATION: (test code LSIL/EPITH. = 62841) ABNORMALITY; SEE BELOW OTHER COMMENTS: (test code (NOTE) = 8081) CHICKEN CLEANER: (test Nazia Gibson code = 8101) [place],CT(ASCP)[facility] PATHOLOGIST INTERPRETATION [facility], BY: (test code = 8122) M.D. LOCATION: (test code = (NOTE) 41136) CPT: (test code = 8140) (NOTE) PAP TEST, THINPREP, [id number] 00:00:00 Test Item Value Reference Range Interpretation Comments SOURCE: (test code = 8001) Cervical/Endocervic al SLIDES: (test code = 8011) 1 LMP: (test code = 8021) SEE NOTE SPECIMEN ADEQUACY: (test (NOTE) code = 29915) INTERPRETATION: (test code LSIL/EPITH. = 95348) ABNORMALITY; SEE BELOW OTHER COMMENTS: (test code (NOTE) = 8081) CHICKEN CLEANER: (test Nazia Gibson code = 8101) [place],CT(ASCP)[facility] PATHOLOGIST INTERPRETATION [facility], BY: (test code = 8122) M.D. LOCATION: (test code = (NOTE) 83886) CPT: (test code = 8140) (NOTE) PAP TEST, THINPREP, [id number] 00:00:00 Test Item Value Reference Range Interpretation Comments SOURCE: (test code = 8001) Cervical/Endocervic al SLIDES: (test code = 8011) 1 LMP: (test code = 8021) SEE NOTE SPECIMEN ADEQUACY: (test (NOTE) code = 41729) INTERPRETATION: (test code LSIL/EPITH. = 22528) ABNORMALITY; SEE BELOW OTHER COMMENTS: (test code (NOTE) = 8081) CHICKEN CLEANER: (test Nazia Penah code = 8101) [place],CT(ASCP)[facility] PATHOLOGIST INTERPRETATION Carmen Andrade, BY: (test code = 8122) M.D. LOCATION: (test code = (NOTE) 40804) CPT: (test code = 8140) (NOTE) PAP TEST, THINPREP, [id number] 00:00:00 Test Item Value Reference Range Interpretation Comments SOURCE: (test code = 8001) Cervical/Endocervic al SLIDES: (test code = 8011) 1 LMP: (test code = 8021) SEE NOTE SPECIMEN ADEQUACY: (test (NOTE) code = 62538) INTERPRETATION: (test code LSIL/EPITH. = 62831) ABNORMALITY; SEE BELOW OTHER COMMENTS: (test code (NOTE) = 8081) CHICKEN CLEANER: [facility] [place],CT(ASCP)[facility] PATHOLOGIST INTERPRETATION Carmen Lupe, BY: (test code = 8122) M.D. LOCATION: (test code = (NOTE) 50380) CPT: (test code = 8140) (NOTE) HPV HIGH RISK WITH GENOTYPE, [id number] 00:00:00 Test Item Value Reference Range Interpretation Comments HPV HIGH RISK INTERP (test code = POSITIVE 68782) HPV 16 (test code = 17196) NEGATIVE HPV 18 (test code = 45405) NEGATIVE HPV, HR, OTHER GENOTYPES (test code POSITIVE = 32075) HPV HIGH RISK WITH GENOTYPE, [id number] 00:00:00 Test Item Value Reference Range Interpretation Comments HPV HIGH RISK INTERP (test code = POSITIVE 90839) HPV 16 (test code = 43444) NEGATIVE HPV 18 (test code = 68013) NEGATIVE HPV, HR, OTHER GENOTYPES (test code POSITIVE = 53029) HPV HIGH RISK WITH GENOTYPE, [id number] 00:00:00 Test Item Value Reference Range Interpretation Comments HPV HIGH RISK INTERP (test code = POSITIVE 21367) HPV 16 (test code = 08201) NEGATIVE HPV 18 (test code = 85617) NEGATIVE HPV, HR, OTHER GENOTYPES (test code POSITIVE = 95255) HPV HIGH RISK WITH GENOTYPE, [id number] 00:00:00 Test Item Value Reference Range Interpretation Comments HPV HIGH RISK INTERP (test code = POSITIVE 88664) HPV 16 (test code = 91894) NEGATIVE HPV 18 (test code = 31061) NEGATIVE HPV, HR, OTHER GENOTYPES (test code POSITIVE = 99474) HPV HIGH RISK WITH GENOTYPE, [id number] 00:00:00 Test Item Value Reference Range Interpretation Comments HPV HIGH RISK INTERP (test code = POSITIVE 64444) HPV 16 (test code = 86010) NEGATIVE HPV 18 (test code = 66759) NEGATIVE HPV, HR, OTHER GENOTYPES (test code POSITIVE = 03511) HPV HIGH RISK WITH GENOTYPE, [id number] 00:00:00 Test Item Value Reference Range Interpretation Comments HPV HIGH RISK INTERP (test code = POSITIVE 83892) HPV 16 (test code = 60362) NEGATIVE HPV 18 (test code = 52904) NEGATIVE HPV, HR, OTHER GENOTYPES (test code POSITIVE = 37836) HPV HIGH RISK WITH GENOTYPE, [id number] 00:00:00 Test Item Value Reference Range Interpretation Comments HPV HIGH RISK INTERP (test code = POSITIVE 64510) HPV 16 (test code = 41355) NEGATIVE HPV 18 (test code = 02719) NEGATIVE HPV, HR, OTHER GENOTYPES (test code POSITIVE = 32823) HPV HIGH RISK WITH GENOTYPE, [id number] 00:00:00 Test Item Value Reference Range Interpretation Comments HPV HIGH RISK INTERP (test code = POSITIVE 86956) HPV 16 (test code = 71149) NEGATIVE HPV 18 (test code = 97166) NEGATIVE HPV, HR, OTHER GENOTYPES (test code POSITIVE = 51903) HPV HIGH RISK WITH GENOTYPE, [id number] 00:00:00 Test Item Value Reference Range Interpretation Comments HPV HIGH RISK INTERP (test code = POSITIVE 61717) HPV 16 (test code = 46951) NEGATIVE HPV 18 (test code = 73384) NEGATIVE HPV, HR, OTHER GENOTYPES (test code POSITIVE = 94271) HPV HIGH RISK WITH GENOTYPE, [id number] 00:00:00 Test Item Value Reference Range Interpretation Comments HPV HIGH RISK INTERP (test code = POSITIVE 08964) HPV 16 (test code = 31259) NEGATIVE HPV 18 (test code = 05684) NEGATIVE HPV, HR, OTHER GENOTYPES (test code POSITIVE = 68610) HPV HIGH RISK WITH GENOTYPE, [id number] 00:00:00 Test Item Value Reference Range Interpretation Comments HPV HIGH RISK INTERP (test code = POSITIVE 84868) HPV 16 (test code = 44200) NEGATIVE HPV 18 (test code = 61067) NEGATIVE HPV, HR, OTHER GENOTYPES (test code POSITIVE = 50734) HPV HIGH RISK WITH GENOTYPE, [id number] 00:00:00 Test Item Value Reference Range Interpretation Comments HPV HIGH RISK INTERP (test code = POSITIVE 58182) HPV 16 (test code = 90724) NEGATIVE HPV 18 (test code = 59026) NEGATIVE HPV, HR, OTHER GENOTYPES (test code POSITIVE = 52603) HPV HIGH RISK WITH GENOTYPE, [id number] 00:00:00 Test Item Value Reference Range Interpretation Comments HPV HIGH RISK INTERP (test code = POSITIVE 76572) HPV 16 (test code = 27573) NEGATIVE HPV 18 (test code = 99205) NEGATIVE HPV, HR, OTHER GENOTYPES (test code POSITIVE = 65803) HPV HIGH RISK WITH GENOTYPE, [id number] 00:00:00 Test Item Value Reference Range Interpretation Comments HPV HIGH RISK INTERP (test code = POSITIVE 25984) HPV 16 (test code = 71854) NEGATIVE HPV 18 (test code = 64559) NEGATIVE HPV, HR, OTHER GENOTYPES (test code POSITIVE = 59628) N-TERMINAL [id number] 11:32:35 Test Item Value Reference Range Interpretation Comments NT-proBNP (test code 422 pg/mL See_Comment H [Autom ated = 3669730228) message] The system which generated this result transmitted reference range : <=125. The reference range was not used to interpret this result as normal/abnormal . OFELIA (test code = OFELIA) Biotin has been reported to cause a negative bias, interpret results relative to patient's use of biotin. Lab Interpretation Abnormal (test code = 58151-5) [facility] [id number] 10:51:52 Test Item Value Reference Interpretation Comments Range TROPONIN I (test 0.011 ng/mL See_Comment [Automated code = 0072949100) message] The system which generated this result [...] biotin. Lab Interpretation Normal (test code = 70212-5) [facility]. METABOLIC PANEL (97290)2022-01-15 10:40:31 Test Item Value Reference Range Interpretation Comments NA (test code = 140 mmol/L 135-145 8683268124) K (test code = 3.7 mmol/L 3.5-5 7698734448) CL (test code = 107 mmol/L 98-108 1196510519) CO2 TOTAL (test code = 23 mmol/L 23-31 2514987123) AGAP (test code = 2-16 1382055724) BUN (test code = 11 mg/dL 7-23 1294950472) GLUCOSE (test code = 146 mg/dL 70-110 H 4862285716) CREATININE (test code = 0.65 mg/dL 0.5-1.04 9003983458) TOTAL BILI (test code = 0.7 mg/dL 0.1-1.7 5756577876) CALCIUM (test code = 10.6 mg/dL 8.6-10.6 7710938060) T PROTEIN (test code = 6.5 g/dL 6.3-8.2 9085566408) ALBUMIN (test code = 4.2 g/dL 3.5-5 9272005315) ALK PHOS (test code = 95 U/L 34-122 3862012700) ALTv (test code = 51 U/L 5-35 H 1742-6) AST(SGOT) (test code = 34 U/L 13-40 4686373830) eGFR (test code = mL/min/1.73m2 3381420851) OFELIA (test code = OFELIA) Association of [...] tests). Lab Interpretation Abnormal (test code = 44004-9) [facility], [id number] 10:39:50 Test Item Value Reference Range Interpretation Comments LIPASE (test code = 0644489379) 35 U/L 0-220 Lab Interpretation (test code = Normal 70467-1) [facility]2022-[facility]-17 10:32:27 Test Item Value Reference Range Interpretation Comments APTT Patient (test See_Comment [Automat ed code = 3173-2) message] The system which generated this result transmitted reference range : 23 - 38 Seconds . The reference range was not used to interpr et this result as normal/abnormal . OFELIA (test code = OFELIA) [facility] patient population mean normal value for aPTT is 30 seconds. Lab Interpretation Normal (test code = 89976-9) [facility] / [id number] 10:30:30 Test Item Value Reference Range Interpretation Comments PROTIME PATIENT (test See_Comment [Auto mated message] code = 5964-2) The system [employer] generated this result transmitted ref erence range: 12.0 - 1 4.7 Seconds. The re ference range was not u sed to interpret this result as normal/abnor mal. INR (test code = 6301-6) Nor mal INR <1.1; Warfarin Therap eutic range 2.0 to 3. 0 or 2.5 to 3.5, dep ending upon the indica tions. Lab Interpretation (test Normal code = 54295-7) [facility] DallasCB WITH [id number] 10:12:46 Test Item Value Reference Range Interpretation Comments WBC (test code = See_Comment [Automated message] 6690-2) The system [employer] generated this result transmitted ref erence range: 4.30 - 1 1.10 10*3/?L. The re ference range was not u sed to interpret this result as normal/abnor mal. RBC (test code = See_Comment [Automated message] 149-8) The system [employer] generated this result transmitted ref erence range: [...] RDW-SD (test code 42.5 fL 39-49.9 = 40740-3) RDW-CV (test code 12.9 % 12-15.5 = 788-0) PLT (test code = See_Comment [Automated message] 997-3) The system whic h generated this result transmitted ref erence range: 166 - 35 8 10*3/?L. The re ference range was not u sed to interpret this result as normal/abnor mal. MPV (test code = 9.6 fL 9.5-12.9 16241-1) NRBC/100 WBC (test See_Comment [Automat ed message] code = 5915371141) The syste m which generated this result transmitted ref erence range: 0.0 - 10 .0 /100 WBCs. The refer ence range was not u sed to interpret this result as normal/abnor mal. NRBC x10^3 (test See_Comment [Automated message] code = 3876563156) The syste m which generated this result transmitted ref erence range: 10*3/?L. The reference range was not used to interpr et this result as normal/abnormal . GRAN MAT (NEUT) % 62.1 % (test code = 770-8) IMM GRAN % (test 0.30 % code = 7756124959) LYMPH % (test code 28.9 % = 736-9) MONO % (test code 5.8 % = 5905-5) EOS % (test code = 2.3 % 713-8) BASO % (test code 0.6 % = 706-2) GRAN MAT 4.27 10*3/uL 1.88-7.09 x10^3(ANC) (test code = 4275988807) IMM GRAN x10^3 0-0.06 (test code = 2585736381) LYMPH x10^3 (test 1.99 10*3/uL 1.32-3.29 code = 731-0) MONO x10^3 (test 0.40 10*3/uL 0.33-0.92 code = 742-7) EOS x10^3 (test 0.16 10*3/uL 0.03-0.39 code = 711-2) BASO x10^3 (test 0.04 10*3/uL 0.01-0.07 code = 704-7) [facility]. PYLORI (BREATH)2022-01-03 15:07:57 Test Item Value Reference Range Interpretation Comments H. PYLORI (BREATH) NEGATIVE NEGATIVE UNLESS O THERWISE (test code = 38228) INDICATE D, ALL TESTING PERFORMED [facility] PATHOLOGY [employer]. [address] [place] [address] LABOR ATOR DIRECTOR: TANNER VELASQUEZ M.D. CLIA NUMBER [id number] CAP ACCREDITATION N O. [id number] SCL-70 [id number] 05:38:15 Test Item Value Reference Range Interpretation Comments SCL-70 ANTIBODY (test code = 4606) <0.2 AI <1.0 SJOGREN'S SS-A AND SS-B [id number] 05:38:15 Test Item Value Reference Range Interpretation Comments SJOGREN'S SS-A <0.2 AI <1.0 ANTIBODY (test code = 69590) SJOGREN'S SS-B <0.2 AI <1.0 UNLESS OTHER ROTH ANTIBODY (test code = INDICA ALEX, ALL TESTING 02690) PERFORMED [facility] PATHOLOGY [employer]. [address] [place] [address] [facility] DIRECTOR: TANNER VELASQUEZ M.D. CLIA NUMBER [id number] CAP ACCREDITATION N O. [id number] ALTMAN (Sm) [id number] 05:38:15 Test Item Value Reference Range Interpretation Comments ALTMAN (Sm) ANTIBODY (test code = <0.2 AI <1.0 53824) H. PYLORI (BREATH)2022-01-03 00:00:00 Test Item Value Reference Range Interpretation Comments H. PYLORI (BREATH) (test code = NEGATIVE 43067) H. PYLORI (BREATH)2022-01-03 00:00:00 Test Item Value Reference Range Interpretation Comments H. PYLORI (BREATH) (test code = NEGATIVE 79065) SCL-70 [id number] 00:00:00 Test Item Value Reference Range Interpretation Comments SCL-70 ANTIBODY (test code = 4606) <0.2 AI SCL-70 [id number] 00:00:00 Test Item Value Reference Range Interpretation Comments SCL-70 ANTIBODY (test code = 4606) <0.2 AI SCL-70 [id number] 00:00:00 Test Item Value Reference Range Interpretation Comments SCL-70 ANTIBODY (test code = 4606) <0.2 AI [id number] 00:00:00 Test Item Value Reference Range Interpretation Comments SJOGREN'S SS-A ANTIBODY (test code = <0.2 AI 85649) SJOGREN'S SS-B ANTIBODY (test code = <0.2 AI 80054) [id number] 00:00:00 Test Item Value Reference Range Interpretation Comments SJOGREN'S SS-A ANTIBODY (test code = <0.2 AI 90764) SJOGREN'S SS-B ANTIBODY (test code = <0.2 AI 53857) H. PYLORI (BREATH)2022-01-03 00:00:00 Test Item Value Reference Range Interpretation Comments H. PYLORI (BREATH) (test code = NEGATIVE 57749) H. PYLORI (BREATH)2022-01-03 00:00:00 Test Item Value Reference Range Interpretation Comments H. PYLORI (BREATH) (test code = NEGATIVE 60437) ALTMAN (Sm) [id number] 00:00:00 Test Item Value Reference Range Interpretation Comments ALTMAN (Sm) ANTIBODY (test code = <0.2 AI 43483) ALTMAN (Sm) [id number] 00:00:00 Test Item Value Reference Range Interpretation Comments ALTMAN (Sm) ANTIBODY (test code = <0.2 AI 97325) SCL-70 [id number] 00:00:00 Test Item Value Reference Range Interpretation Comments SCL-70 ANTIBODY (test code = 4606) <0.2 AI SCL-70 [id number] 00:00:00 Test Item Value Reference Range Interpretation Comments SCL-70 ANTIBODY (test code = 4606) <0.2 AI SCL-70 [id number] 00:00:00 Test Item Value Reference Range Interpretation Comments SCL-70 ANTIBODY (test code = 4606) <0.2 AI [id number] 00:00:00 Test Item Value Reference Range Interpretation Comments SJOGREN'S SS-A ANTIBODY (test code = <0.2 AI 93065) SJOGREN'S SS-B ANTIBODY (test code = <0.2 AI 94696) [id number] 00:00:00 Test Item Value Reference Range Interpretation Comments SJOGREN'S SS-A ANTIBODY (test code = <0.2 AI 13496) SJOGREN'S SS-B ANTIBODY (test code = <0.2 AI 67550) H. PYLORI (BREATH)2022-01-03 00:00:00 Test Item Value Reference Range Interpretation Comments H. PYLORI (BREATH) (test code = NEGATIVE 17383) H. PYLORI (BREATH)2022-01-03 00:00:00 Test Item Value Reference Range Interpretation Comments H. PYLORI (BREATH) (test code = NEGATIVE 25252) ALTMAN (Sm) [id number] 00:00:00 Test Item Value Reference Range Interpretation Comments ALTMAN (Sm) ANTIBODY (test code = <0.2 AI 50019) ALTMAN (Sm) [id number] 00:00:00 Test Item Value Reference Range Interpretation Comments ALTMAN (Sm) ANTIBODY (test code = <0.2 AI 74205) SCL-70 [id number] 00:00:00 Test Item Value Reference Range Interpretation Comments SCL-70 ANTIBODY (test code = 4606) <0.2 AI SCL-70 [id number] 00:00:00 Test Item Value Reference Range Interpretation Comments SCL-70 ANTIBODY (test code = 4606) <0.2 AI SCL-70 [id number] 00:00:00 Test Item Value Reference Range Interpretation Comments SCL-70 ANTIBODY (test code = 4606) <0.2 AI [id number] 00:00:00 Test Item Value Reference Range Interpretation Comments SJOGREN'S SS-A ANTIBODY (test code = <0.2 AI 97526) SJOGREN'S SS-B ANTIBODY (test code = <0.2 AI 72521) [id number] 00:00:00 Test Item Value Reference Range Interpretation Comments SJOGREN'S SS-A ANTIBODY (test code = <0.2 AI 36431) SJOGREN'S SS-B ANTIBODY (test code = <0.2 AI 98882) ALTMAN (Sm) [id number] 00:00:00 Test Item Value Reference Range Interpretation Comments ALTMAN (Sm) ANTIBODY (test code = <0.2 AI 54671) ALTMAN (Sm) [id number] 00:00:00 Test Item Value Reference Range Interpretation Comments ALTMAN (Sm) ANTIBODY (test code = <0.2 AI 29760) H. PYLORI (BREATH)2022-01-03 00:00:00 Test Item Value Reference Range Interpretation Comments H. PYLORI (BREATH) (test code = NEGATIVE 58488) H. PYLORI (BREATH)2022-01-03 00:00:00 Test Item Value Reference Range Interpretation Comments H. PYLORI (BREATH) (test code = NEGATIVE 60738) SCL-70 [id number] 00:00:00 Test Item Value Reference Range Interpretation Comments SCL-70 ANTIBODY (test code = 4606) <0.2 AI SCL-70 [id number] 00:00:00 Test Item Value Reference Range Interpretation Comments SCL-70 ANTIBODY (test code = 4606) <0.2 AI SCL-70 [id number] 00:00:00 Test Item Value Reference Range Interpretation Comments SCL-70 ANTIBODY (test code = 4606) <0.2 AI [id number] 00:00:00 Test Item Value Reference Range Interpretation Comments SJOGREN'S SS-A ANTIBODY (test code = <0.2 AI 94640) SJOGREN'S SS-B ANTIBODY (test code = <0.2 AI 11620) [id number] 00:00:00 Test Item Value Reference Range Interpretation Comments SJOGREN'S SS-A ANTIBODY (test code = <0.2 AI 95901) SJOGREN'S SS-B ANTIBODY (test code = <0.2 AI 72415) H. PYLORI (BREATH)2022-01-03 00:00:00 Test Item Value Reference Range Interpretation Comments H. PYLORI (BREATH) (test code = NEGATIVE 15395) H. PYLORI (BREATH)2022-01-03 00:00:00 Test Item Value Reference Range Interpretation Comments H. PYLORI (BREATH) (test code = NEGATIVE 89916) ALTMAN (Sm) [id number] 00:00:00 Test Item Value Reference Range Interpretation Comments ALTMAN (Sm) ANTIBODY (test code = <0.2 AI 94657) ALTMAN (Sm) [id number] 00:00:00 Test Item Value Reference Range Interpretation Comments ALTMAN (Sm) ANTIBODY (test code = <0.2 AI 95052) SCL-70 [id number] 00:00:00 Test Item Value Reference Range Interpretation Comments SCL-70 ANTIBODY (test code = 4606) <0.2 AI SCL-70 [id number] 00:00:00 Test Item Value Reference Range Interpretation Comments SCL-70 ANTIBODY (test code = 4606) <0.2 AI SCL-70 [id number] 00:00:00 Test Item Value Reference Range Interpretation Comments SCL-70 ANTIBODY (test code = 4606) <0.2 AI [id number] 00:00:00 Test Item Value Reference Range Interpretation Comments SJOGREN'S SS-A ANTIBODY (test code = <0.2 AI 58105) SJOGREN'S SS-B ANTIBODY (test code = <0.2 AI 86005) [id number] 00:00:00 Test Item Value Reference Range Interpretation Comments SJOGREN'S SS-A ANTIBODY (test code = <0.2 AI 34692) SJOGREN'S SS-B ANTIBODY (test code = <0.2 AI 50254) ALTMAN (Sm) [id number] 00:00:00 Test Item Value Reference Range Interpretation Comments ALTMAN (Sm) ANTIBODY (test code = <0.2 AI 10233) ALTMAN (Sm) [id number] 00:00:00 Test Item Value Reference Range Interpretation Comments ALTMAN (Sm) ANTIBODY (test code = <0.2 AI 68608) H. PYLORI (BREATH)2022-01-03 00:00:00 Test Item Value Reference Range Interpretation Comments H. PYLORI (BREATH) (test code = NEGATIVE 61695) H. PYLORI (BREATH)2022-01-03 00:00:00 Test Item Value Reference Range Interpretation Comments H. PYLORI (BREATH) (test code = NEGATIVE 14843) SCL-70 [id number] 00:00:00 Test Item Value Reference Range Interpretation Comments SCL-70 ANTIBODY (test code = 4606) <0.2 AI SCL-70 [id number] 00:00:00 Test Item Value Reference Range Interpretation Comments SCL-70 ANTIBODY (test code = 4606) <0.2 AI SCL-70 [id number] 00:00:00 Test Item Value Reference Range Interpretation Comments SCL-70 ANTIBODY (test code = 4606) <0.2 AI [id number] 00:00:00 Test Item Value Reference Range Interpretation Comments SJOGREN'S SS-A ANTIBODY (test code = <0.2 AI 38547) SJOGREN'S SS-B ANTIBODY (test code = <0.2 AI 51308) [id number] 00:00:00 Test Item Value Reference Range Interpretation Comments SJOGREN'S SS-A ANTIBODY (test code = <0.2 AI 61277) SJOGREN'S SS-B ANTIBODY (test code = <0.2 AI 60771) H. PYLORI (BREATH)2022-01-03 00:00:00 Test Item Value Reference Range Interpretation Comments H. PYLORI (BREATH) (test code = NEGATIVE 88414) H. PYLORI (BREATH)2022-01-03 00:00:00 Test Item Value Reference Range Interpretation Comments H. PYLORI (BREATH) (test code = NEGATIVE 25209) ALTMAN (Sm) [id number] 00:00:00 Test Item Value Reference Range Interpretation Comments ALTMAN (Sm) ANTIBODY (test code = <0.2 AI 54122) ALTMAN (Sm) [id number] 00:00:00 Test Item Value Reference Range Interpretation Comments ALTMAN (Sm) ANTIBODY (test code = <0.2 AI 52223) SCL-70 [id number] 00:00:00 Test Item Value Reference Range Interpretation Comments SCL-70 ANTIBODY (test code = 4606) <0.2 AI SCL-70 [id number] 00:00:00 Test Item Value Reference Range Interpretation Comments SCL-70 ANTIBODY (test code = 4606) <0.2 AI SCL-70 [id number] 00:00:00 Test Item Value Reference Range Interpretation Comments SCL-70 ANTIBODY (test code = 4606) <0.2 AI [id number] 00:00:00 Test Item Value Reference Range Interpretation Comments SJOGREN'S SS-A ANTIBODY (test code = <0.2 AI 16003) SJOGREN'S SS-B ANTIBODY (test code = <0.2 AI 27645) [id number] 00:00:00 Test Item Value Reference Range Interpretation Comments SJOGREN'S SS-A ANTIBODY (test code = <0.2 AI 57912) SJOGREN'S SS-B ANTIBODY (test code = <0.2 AI 12124) H. PYLORI (BREATH)2022-01-03 00:00:00 Test Item Value Reference Range Interpretation Comments H. PYLORI (BREATH) (test code = NEGATIVE 73147) H. PYLORI (BREATH)2022-01-03 00:00:00 Test Item Value Reference Range Interpretation Comments H. PYLORI (BREATH) (test code = NEGATIVE 47769) ATLMAN (Sm) [id number] 00:00:00 Test Item Value Reference Range Interpretation Comments ALTMAN (Sm) ANTIBODY (test code = <0.2 AI 99196) ALTMAN (Sm) [id number] 00:00:00 Test Item Value Reference Range Interpretation Comments ALTMAN (Sm) ANTIBODY (test code = <0.2 AI 37903) SCL-70 [id number] 00:00:00 Test Item Value Reference Range Interpretation Comments SCL-70 ANTIBODY (test code = 4606) <0.2 AI SCL-70 [id number] 00:00:00 Test Item Value Reference Range Interpretation Comments SCL-70 ANTIBODY (test code = 4606) <0.2 AI SCL-70 [id number] 00:00:00 Test Item Value Reference Range Interpretation Comments SCL-70 ANTIBODY (test code = 4606) <0.2 AI [id number] 00:00:00 Test Item Value Reference Range Interpretation Comments SJOGREN'S SS-A ANTIBODY (test code = <0.2 AI 66223) SJOGREN'S SS-B ANTIBODY (test code = <0.2 AI 25545) [id number] 00:00:00 Test Item Value Reference Range Interpretation Comments SJOGREN'S SS-A ANTIBODY (test code = <0.2 AI 78518) SJOGREN'S SS-B ANTIBODY (test code = <0.2 AI 89924) H. PYLORI (BREATH)2022-01-03 00:00:00 Test Item Value Reference Range Interpretation Comments H. PYLORI (BREATH) (test code = NEGATIVE 06773) H. PYLORI (BREATH)2022-01-03 00:00:00 Test Item Value Reference Range Interpretation Comments H. PYLORI (BREATH) (test code = NEGATIVE 85808) ALTMAN (Sm) [id number] 00:00:00 Test Item Value Reference Range Interpretation Comments ALTMAN (Sm) ANTIBODY (test code = <0.2 AI 38501) ALTMAN (Sm) [id number] 00:00:00 Test Item Value Reference Range Interpretation Comments ALTMAN (Sm) ANTIBODY (test code = <0.2 AI 49599) SCL-70 [id number] 00:00:00 Test Item Value Reference Range Interpretation Comments SCL-70 ANTIBODY (test code = 4606) <0.2 AI SCL-70 [id number] 00:00:00 Test Item Value Reference Range Interpretation Comments SCL-70 ANTIBODY (test code = 4606) <0.2 AI SCL-70 [id number] 00:00:00 Test Item Value Reference Range Interpretation Comments SCL-70 ANTIBODY (test code = 4606) <0.2 AI [id number] 00:00:00 Test Item Value Reference Range Interpretation Comments SJOGREN'S SS-A ANTIBODY (test code = <0.2 AI 99947) SJOGREN'S SS-B ANTIBODY (test code = <0.2 AI 64738) [id number] 00:00:00 Test Item Value Reference Range Interpretation Comments SJOGREN'S SS-A ANTIBODY (test code = <0.2 AI 58259) SJOGREN'S SS-B ANTIBODY (test code = <0.2 AI 33154) ALTMAN (Sm) [id number] 00:00:00 Test Item Value Reference Range Interpretation Comments ALTMAN (Sm) ANTIBODY (test code = <0.2 AI 47972) ALTMAN (Sm) [id number] 00:00:00 Test Item Value Reference Range Interpretation Comments ALTMAN (Sm) ANTIBODY (test code = <0.2 AI 47744) KATHRYN (ANTI-NUCLEAR AB) WITH REFLEX [id number] 04:07:31 Test Item Value Reference Range Interpretation Comments ANTI-NUCLEAR POSITIVE NEGATIVE A ANTIBODIES (test code = 3506) KATHRYN PATTERN SEE BELOW (REPORTED TITER) (test code = 13409) HOMOGENEOUS (test NEGATIVE TITER NEGATIVE code = 67381) SPECKLED (test 1:160 TITER NEGATIVE H code = 770469) DENSE FINE NEGATIVE TITER NEGATIVE SPECKLED (test code = 28037) CENTROMERE (test NEGATIVE TITER NEGATIVE code = 253213) COARSE SPECKLED NEGATIVE TITER NEGATIVE (test code = 699639) DISCRETE NUCLEAR NEGATIVE TITER NEGATIVE DOTS (test code = 616085) NUCLEOLAR (test NEGATIVE TITER NEGATIVE code = 106907) NUCLEAR MEMBRANE NEGATIVE TITER NEGATIVE (test code = 172618) CYTO. RETICULAR NEGATIVE NEGATIVE (ANEESH) (test code = 336207) COMMENTS (test NONE code = 457644) METHOD (test code (NOTE) NOTE: EFF ECTIVE = 57012) 11/06/2021, MET HOD IS TRANSITIONED TO THE [employer] VIEW IFA PLATFO RM. THE METHOD INCLUDES A SCREENTHRESHOLD OF 1:80, DIGITIZED AND COMPUTER ALGORITHM-NOLBERTO TEDDEISYE RPRETATION OF T ITERS AND DIGITAL PAT TERNS, AND HEp-2 CELLL INE SUBSTRATE. GUS TIONAL UNUSUAL PATTERN S WILL BE GIVEN ASCOMM ENTS. FOR MORE INFORM ATION, SEE [email or web address] KATHRYN (ANTI-NUCLEAR AB) WITH REFLEX [id number] 00:00:00 Test Item Value Reference Range Interpretation Comments ANTI-NUCLEAR ANTIBODIES (test POSITIVE code = 3506) KATHRYN PATTERN (REPORTED SEE BELOW TITER) (test code = 13453) HOMOGENEOUS (test code = NEGATIVE TITER 49009) SPECKLED (test code = 223059) 1:160 TITER DENSE FINE SPECKLED (test code NEGATIVE TITER = 47778) CENTROMERE (test code = NEGATIVE TITER 510225) COARSE SPECKLED (test code = NEGATIVE TITER 427011) DISCRETE NUCLEAR DOTS (test NEGATIVE TITER code = 558842) NUCLEOLAR (test code = 106164) NEGATIVE TITER NUCLEAR MEMBRANE (test code = NEGATIVE TITER 785896) CYTO. RETICULAR (ANEESH) (test NEGATIVE code = 910213) COMMENTS (test code = 492309) NONE METHOD (test code = 97740) (NOTE) KATHRYN (ANTI-NUCLEAR AB) WITH REFLEX [id number] 00:00:00 Test Item Value Reference Range Interpretation Comments ANTI-NUCLEAR ANTIBODIES (test POSITIVE code = 3506) KATHRYN PATTERN (REPORTED SEE BELOW TITER) (test code = 30468) HOMOGENEOUS (test code = NEGATIVE TITER 86606) SPECKLED (test code = 207146) 1:160 TITER DENSE FINE SPECKLED (test code NEGATIVE TITER = 20703) CENTROMERE (test code = NEGATIVE TITER 249712) COARSE SPECKLED (test code = NEGATIVE TITER 282883) DISCRETE NUCLEAR DOTS (test NEGATIVE TITER code = 090474) NUCLEOLAR (test code = 413425) NEGATIVE TITER NUCLEAR MEMBRANE (test code = NEGATIVE TITER 852480) CYTO. RETICULAR (ANEESH) (test NEGATIVE code = 795848) COMMENTS (test code = 349183) NONE METHOD (test code = 68167) (NOTE) KATHRYN (ANTI-NUCLEAR AB) WITH REFLEX [id number] 00:00:00 Test Item Value Reference Range Interpretation Comments ANTI-NUCLEAR ANTIBODIES (test POSITIVE code = 3506) KATHRYN PATTERN (REPORTED SEE BELOW TITER) (test code = 47848) HOMOGENEOUS (test code = NEGATIVE TITER 09528) SPECKLED (test code = 973007) 1:160 TITER DENSE FINE SPECKLED (test code NEGATIVE TITER = 38477) CENTROMERE (test code = NEGATIVE TITER 226060) COARSE SPECKLED (test code = NEGATIVE TITER 353752) DISCRETE NUCLEAR DOTS (test NEGATIVE TITER code = 169368) NUCLEOLAR (test code = 781888) NEGATIVE TITER NUCLEAR MEMBRANE (test code = NEGATIVE TITER 738810) CYTO. RETICULAR (ANEESH) (test NEGATIVE code = 891109) COMMENTS (test code = 953831) NONE METHOD (test code = 75528) (NOTE) KATHRYN (ANTI-NUCLEAR AB) WITH REFLEX [id number] 00:00:00 Test Item Value Reference Range Interpretation Comments ANTI-NUCLEAR ANTIBODIES (test POSITIVE code = 3506) KATHRYN PATTERN (REPORTED SEE BELOW TITER) (test code = 55910) HOMOGENEOUS (test code = NEGATIVE TITER 32044) SPECKLED (test code = 949677) 1:160 TITER DENSE FINE SPECKLED (test code NEGATIVE TITER = 22848) CENTROMERE (test code = NEGATIVE TITER 569860) COARSE SPECKLED (test code = NEGATIVE TITER 783040) DISCRETE NUCLEAR DOTS (test NEGATIVE TITER code = 800444) NUCLEOLAR (test code = 832027) NEGATIVE TITER NUCLEAR MEMBRANE (test code = NEGATIVE TITER 729706) CYTO. RETICULAR (ANEESH) (test NEGATIVE code = 872614) COMMENTS (test code = 193981) NONE METHOD (test code = 57194) (NOTE) KATHRYN (ANTI-NUCLEAR AB) WITH REFLEX [id number] 00:00:00 Test Item Value Reference Range Interpretation Comments ANTI-NUCLEAR ANTIBODIES (test POSITIVE code = 3506) KATHRYN PATTERN (REPORTED SEE BELOW TITER) (test code = 57295) HOMOGENEOUS (test code = NEGATIVE TITER 59202) SPECKLED (test code = 711092) 1:160 TITER DENSE FINE SPECKLED (test code NEGATIVE TITER = 22690) CENTROMERE (test code = NEGATIVE TITER 963803) COARSE SPECKLED (test code = NEGATIVE TITER 148432) DISCRETE NUCLEAR DOTS (test NEGATIVE TITER code = 064764) NUCLEOLAR (test code = 137782) NEGATIVE TITER NUCLEAR MEMBRANE (test code = NEGATIVE TITER 927272) CYTO. RETICULAR (ANEESH) (test NEGATIVE code = 632760) COMMENTS (test code = 224554) NONE METHOD (test code = 93023) (NOTE) KATHRYN (ANTI-NUCLEAR AB) WITH REFLEX [id number] 00:00:00 Test Item Value Reference Range Interpretation Comments ANTI-NUCLEAR ANTIBODIES (test POSITIVE code = 3506) KATHRYN PATTERN (REPORTED SEE BELOW TITER) (test code = 44906) HOMOGENEOUS (test code = NEGATIVE TITER 60084) SPECKLED (test code = 074107) 1:160 TITER DENSE FINE SPECKLED (test code NEGATIVE TITER = 70717) CENTROMERE (test code = NEGATIVE TITER 209956) COARSE SPECKLED (test code = NEGATIVE TITER 348261) DISCRETE NUCLEAR DOTS (test NEGATIVE TITER code = 949902) NUCLEOLAR (test code = 595875) NEGATIVE TITER NUCLEAR MEMBRANE (test code = NEGATIVE TITER 366528) CYTO. RETICULAR (ANEESH) (test NEGATIVE code = 580586) COMMENTS (test code = 031161) NONE METHOD (test code = 51935) (NOTE) KATHRYN (ANTI-NUCLEAR AB) WITH REFLEX [id number] 00:00:00 Test Item Value Reference Range Interpretation Comments ANTI-NUCLEAR ANTIBODIES (test POSITIVE code = 3506) KATHRYN PATTERN (REPORTED SEE BELOW TITER) (test code = 43939) HOMOGENEOUS (test code = NEGATIVE TITER 40098) SPECKLED (test code = 689641) 1:160 TITER DENSE FINE SPECKLED (test code NEGATIVE TITER = 95676) CENTROMERE (test code = NEGATIVE TITER 406572) COARSE SPECKLED (test code = NEGATIVE TITER 651518) DISCRETE NUCLEAR DOTS (test NEGATIVE TITER code = 187593) NUCLEOLAR (test code = 791430) NEGATIVE TITER NUCLEAR MEMBRANE (test code = NEGATIVE TITER 182848) CYTO. RETICULAR (ANEESH) (test NEGATIVE code = 868133) COMMENTS (test code = 987050) NONE METHOD (test code = 72105) (NOTE) KATHRYN (ANTI-NUCLEAR AB) WITH REFLEX [id number] 00:00:00 Test Item Value Reference Range Interpretation Comments ANTI-NUCLEAR ANTIBODIES (test POSITIVE code = 3506) KATHRYN PATTERN (REPORTED SEE BELOW TITER) (test code = 89442) HOMOGENEOUS (test code = NEGATIVE TITER 59944) SPECKLED (test code = 678546) 1:160 TITER DENSE FINE SPECKLED (test code NEGATIVE TITER = 92021) CENTROMERE (test code = NEGATIVE TITER 225556) COARSE SPECKLED (test code = NEGATIVE TITER 804813) DISCRETE NUCLEAR DOTS (test NEGATIVE TITER code = 338799) NUCLEOLAR (test code = 636985) NEGATIVE TITER NUCLEAR MEMBRANE (test code = NEGATIVE TITER 458683) CYTO. RETICULAR (ANEESH) (test NEGATIVE code = 381889) COMMENTS (test code = 543972) NONE METHOD (test code = 15557) (NOTE) KATHRYN (ANTI-NUCLEAR AB) WITH REFLEX [id number] 00:00:00 Test Item Value Reference Range Interpretation Comments ANTI-NUCLEAR ANTIBODIES (test POSITIVE code = 3506) KATHRYN PATTERN (REPORTED SEE BELOW TITER) (test code = 08735) HOMOGENEOUS (test code = NEGATIVE TITER 23852) SPECKLED (test code = 956681) 1:160 TITER DENSE FINE SPECKLED (test code NEGATIVE TITER = 88291) CENTROMERE (test code = NEGATIVE TITER 382354) COARSE SPECKLED (test code = NEGATIVE TITER 917963) DISCRETE NUCLEAR DOTS (test NEGATIVE TITER code = 562057) NUCLEOLAR (test code = 955895) NEGATIVE TITER NUCLEAR MEMBRANE (test code = NEGATIVE TITER 166372) CYTO. RETICULAR (ANEESH) (test NEGATIVE code = 563515) COMMENTS (test code = 653872) NONE METHOD (test code = 14959) (NOTE) KATHRYN (ANTI-NUCLEAR AB) WITH REFLEX [id number] 00:00:00 Test Item Value Reference Range Interpretation Comments ANTI-NUCLEAR ANTIBODIES (test POSITIVE code = 3506) KATHRYN PATTERN (REPORTED SEE BELOW TITER) (test code = 84791) HOMOGENEOUS (test code = NEGATIVE TITER 42616) SPECKLED (test code = 220219) 1:160 TITER DENSE FINE SPECKLED (test code NEGATIVE TITER = 69791) CENTROMERE (test code = NEGATIVE TITER 721627) COARSE SPECKLED (test code = NEGATIVE TITER 461828) DISCRETE NUCLEAR DOTS (test NEGATIVE TITER code = 504877) NUCLEOLAR (test code = 180660) NEGATIVE TITER NUCLEAR MEMBRANE (test code = NEGATIVE TITER 542418) CYTO. RETICULAR (ANEESH) (test NEGATIVE code = 814470) COMMENTS (test code = 242644) NONE METHOD (test code = 46744) (NOTE) KATHRYN (ANTI-NUCLEAR AB) WITH REFLEX [id number] 00:00:00 Test Item Value Reference Range Interpretation Comments ANTI-NUCLEAR ANTIBODIES (test POSITIVE code = 3506) KATHRYN PATTERN (REPORTED SEE BELOW TITER) (test code = 38829) HOMOGENEOUS (test code = NEGATIVE TITER 17122) SPECKLED (test code = 808519) 1:160 TITER DENSE FINE SPECKLED (test code NEGATIVE TITER = 02082) CENTROMERE (test code = NEGATIVE TITER 446898) COARSE SPECKLED (test code = NEGATIVE TITER 126471) DISCRETE NUCLEAR DOTS (test NEGATIVE TITER code = 521734) NUCLEOLAR (test code = 903145) NEGATIVE TITER NUCLEAR MEMBRANE (test code = NEGATIVE TITER 054701) CYTO. RETICULAR (ANEESH) (test NEGATIVE code = 883564) COMMENTS (test code = 274111) NONE METHOD (test code = 50179) (NOTE) KATHRYN (ANTI-NUCLEAR AB) WITH REFLEX [id number] 00:00:00 Test Item Value Reference Range Interpretation Comments ANTI-NUCLEAR ANTIBODIES (test POSITIVE code = 3506) KATHRYN PATTERN (REPORTED SEE BELOW TITER) (test code = 51940) HOMOGENEOUS (test code = NEGATIVE TITER 25831) SPECKLED (test code = 138532) 1:160 TITER DENSE FINE SPECKLED (test code NEGATIVE TITER = 16640) CENTROMERE (test code = NEGATIVE TITER 303080) COARSE SPECKLED (test code = NEGATIVE TITER 446405) DISCRETE NUCLEAR DOTS (test NEGATIVE TITER code = 620519) NUCLEOLAR (test code = 057830) NEGATIVE TITER NUCLEAR MEMBRANE (test code = NEGATIVE TITER 892111) CYTO. RETICULAR (ANEESH) (test NEGATIVE code = 712688) COMMENTS (test code = 853313) NONE METHOD (test code = 29796) (NOTE) KATHRYN (ANTI-NUCLEAR AB) WITH REFLEX [id number] 00:00:00 Test Item Value Reference Range Interpretation Comments ANTI-NUCLEAR ANTIBODIES (test POSITIVE code = 3506) KATHRYN PATTERN (REPORTED SEE BELOW TITER) (test code = 10043) HOMOGENEOUS (test code = NEGATIVE TITER 96780) SPECKLED (test code = 886471) 1:160 TITER DENSE FINE SPECKLED (test code NEGATIVE TITER = 26951) CENTROMERE (test code = NEGATIVE TITER 625297) COARSE SPECKLED (test code = NEGATIVE TITER 005926) DISCRETE NUCLEAR DOTS (test NEGATIVE TITER code = 379138) NUCLEOLAR (test code = 247818) NEGATIVE TITER NUCLEAR MEMBRANE (test code = NEGATIVE TITER 174644) CYTO. RETICULAR (ANEESH) (test NEGATIVE code = 345658) COMMENTS (test code = 158952) NONE METHOD (test code = 87112) (NOTE) KATHRYN (ANTI-NUCLEAR AB) WITH REFLEX [id number] 00:00:00 Test Item Value Reference Range Interpretation Comments ANTI-NUCLEAR ANTIBODIES (test POSITIVE code = 3506) KATHRYN PATTERN (REPORTED SEE BELOW TITER) (test code = 24741) HOMOGENEOUS (test code = NEGATIVE TITER 17670) SPECKLED (test code = 278591) 1:160 TITER DENSE FINE SPECKLED (test code NEGATIVE TITER = 02406) CENTROMERE (test code = NEGATIVE TITER 828454) COARSE SPECKLED (test code = NEGATIVE TITER 819926) DISCRETE NUCLEAR DOTS (test NEGATIVE TITER code = 488088) NUCLEOLAR (test code = 247213) NEGATIVE TITER NUCLEAR MEMBRANE (test code = NEGATIVE TITER 709065) CYTO. RETICULAR (ANESEH) (test NEGATIVE code = 227058) COMMENTS (test code = 528835) NONE METHOD (test code = 82331) (NOTE) KATHRYN (ANTI-NUCLEAR AB) WITH REFLEX [id number] 00:00:00 Test Item Value Reference Range Interpretation Comments ANTI-NUCLEAR ANTIBODIES (test POSITIVE code = 3506) KATHRYN PATTERN (REPORTED SEE BELOW TITER) (test code = 09849) HOMOGENEOUS (test code = NEGATIVE TITER 01828) SPECKLED (test code = 126454) 1:160 TITER DENSE FINE SPECKLED (test code NEGATIVE TITER = 08264) CENTROMERE (test code = NEGATIVE TITER 651058) COARSE SPECKLED (test code = NEGATIVE TITER 648470) DISCRETE NUCLEAR DOTS (test NEGATIVE TITER code = 329830) NUCLEOLAR (test code = 217172) NEGATIVE TITER NUCLEAR MEMBRANE (test code = NEGATIVE TITER 270015) CYTO. RETICULAR (ANEESH) (test NEGATIVE code = 294729) COMMENTS (test code = 138058) NONE METHOD (test code = 54510) (NOTE) KATHRYN (ANTI-NUCLEAR AB) WITH REFLEX [id number] 00:00:00 Test Item Value Reference Range Interpretation Comments ANTI-NUCLEAR ANTIBODIES (test POSITIVE code = 3506) KATHRYN PATTERN (REPORTED SEE BELOW TITER) (test code = 08983) HOMOGENEOUS (test code = NEGATIVE TITER 10183) SPECKLED (test code = 638225) 1:160 TITER DENSE FINE SPECKLED (test code NEGATIVE TITER = 68468) CENTROMERE (test code = NEGATIVE TITER 461831) COARSE SPECKLED (test code = NEGATIVE TITER 420142) DISCRETE NUCLEAR DOTS (test NEGATIVE TITER code = 312812) NUCLEOLAR (test code = 109558) NEGATIVE TITER NUCLEAR MEMBRANE (test code = NEGATIVE TITER 190529) CYTO. RETICULAR (ANEESH) (test NEGATIVE code = 240538) COMMENTS (test code = 546444) NONE METHOD (test code = 98657) (NOTE) KATHRYN (ANTI-NUCLEAR AB) WITH REFLEX [id number] 00:00:00 Test Item Value Reference Range Interpretation Comments ANTI-NUCLEAR ANTIBODIES (test POSITIVE code = 3506) KATHRYN PATTERN (REPORTED SEE BELOW TITER) (test code = 77092) HOMOGENEOUS (test code = NEGATIVE TITER 63634) SPECKLED (test code = 747571) 1:160 TITER DENSE FINE SPECKLED (test code NEGATIVE TITER = 87733) CENTROMERE (test code = NEGATIVE TITER 148980) COARSE SPECKLED (test code = NEGATIVE TITER 321678) DISCRETE NUCLEAR DOTS (test NEGATIVE TITER code = 458234) NUCLEOLAR (test code = 001295) NEGATIVE TITER NUCLEAR MEMBRANE (test code = NEGATIVE TITER 403096) CYTO. RETICULAR (ANEESH) (test NEGATIVE code = 729084) COMMENTS (test code = 754741) NONE METHOD (test code = 41714) (NOTE) KATHRYN (ANTI-NUCLEAR AB) WITH REFLEX [id number] 00:00:00 Test Item Value Reference Range Interpretation Comments ANTI-NUCLEAR ANTIBODIES (test POSITIVE code = 3506) KATHRYN PATTERN (REPORTED SEE BELOW TITER) (test code = 93801) HOMOGENEOUS (test code = NEGATIVE TITER 97614) SPECKLED (test code = 734391) 1:160 TITER DENSE FINE SPECKLED (test code NEGATIVE TITER = 29050) CENTROMERE (test code = NEGATIVE TITER 359700) COARSE SPECKLED (test code = NEGATIVE TITER 508644) DISCRETE NUCLEAR DOTS (test NEGATIVE TITER code = 722906) NUCLEOLAR (test code = 527796) NEGATIVE TITER NUCLEAR MEMBRANE (test code = NEGATIVE TITER 159051) CYTO. RETICULAR (ANEESH) (test NEGATIVE code = 489881) COMMENTS (test code = 924677) NONE METHOD (test code = 52671) (NOTE) KATHRYN (ANTI-NUCLEAR AB) WITH REFLEX [id number] 00:00:00 Test Item Value Reference Range Interpretation Comments ANTI-NUCLEAR ANTIBODIES (test POSITIVE code = 3506) KATHRYN PATTERN (REPORTED SEE BELOW TITER) (test code = 60038) HOMOGENEOUS (test code = NEGATIVE TITER 58335) SPECKLED (test code = 780263) 1:160 TITER DENSE FINE SPECKLED (test code NEGATIVE TITER = 60086) CENTROMERE (test code = NEGATIVE TITER 936538) COARSE SPECKLED (test code = NEGATIVE TITER 604508) DISCRETE NUCLEAR DOTS (test NEGATIVE TITER code = 891021) NUCLEOLAR (test code = 709891) NEGATIVE TITER NUCLEAR MEMBRANE (test code = NEGATIVE TITER 764674) CYTO. RETICULAR (ANEESH) (test NEGATIVE code = 398291) COMMENTS (test code = 847051) NONE METHOD (test code = 64501) (NOTE) KATHRYN (ANTI-NUCLEAR AB) WITH REFLEX [id number] 00:00:00 Test Item Value Reference Range Interpretation Comments ANTI-NUCLEAR ANTIBODIES (test POSITIVE code = 3506) KATHRYN PATTERN (REPORTED SEE BELOW TITER) (test code = 35408) HOMOGENEOUS (test code = NEGATIVE TITER 78102) SPECKLED (test code = 907257) 1:160 TITER DENSE FINE SPECKLED (test code NEGATIVE TITER = 37541) CENTROMERE (test code = NEGATIVE TITER 311266) COARSE SPECKLED (test code = NEGATIVE TITER 889462) DISCRETE NUCLEAR DOTS (test NEGATIVE TITER code = 825573) NUCLEOLAR (test code = 301094) NEGATIVE TITER NUCLEAR MEMBRANE (test code = NEGATIVE TITER 426497) CYTO. RETICULAR (ANEESH) (test NEGATIVE code = 711514) COMMENTS (test code = 230513) NONE METHOD (test code = 35331) (NOTE) SEDIMENTATION [id number] 10:45:17 Test Item Value Reference Range Interpretation Comments SEDIMENTATION RATE (test code = 2 MM/HOUR 0-20 1017) HEMOGLOBIN [id number] 10:22:30 Test Item Value Reference Range Interpretation Comments HEMOGLOBIN A1c (test code = 54482) 5.4 % 4.2-5.6 TSH, THIRD [id number] 06:03:43 Test Item Value Reference Range Interpretation Comments TSH, THIRD GENERATION (test code 1.220 UIU/ML 0.400-4.100 = 2821) RHEUMATOID FACTOR, [id number] 05:16:40 Test Item Value Reference Range Interpretation Comments RHEUMATOID FACTOR, QUANT (test code <10 IU/ML <14 = 3502) LIPID [id number] 05:16:07 Test Item Value Reference Range Interpretation [...] MOREINFORMATION , SEE CLIENT ANNOUNCE MENT AT [email or web address] [email or web address] RATIO LDL/HDL 2.58 RATIO <3.22 UNLESS O THERWISE (test code = 2238) INDICATED , ALL TESTING PERFORMED [facility], [facility]. [address] [place] [id number] [place] [address] DIRECTOR: TANNER VELASQUEZ M.D. CLIA NUMBER [id number] CAP ACCREDITATION N O. [id number] URIC [id number] 05:16:07 Test Item Value Reference Range Interpretation Comments URIC ACID (test code = 2233) 7.4 MG/DL 2.7-6.1 H COMPREHENSIVE METABOLIC [id number] 05:16:07 Test Item Value Reference Range Interpretation Comments GLUCOSE (test code = 88 MG/DL 70-99 2216) BUN (test code = 14 MG/DL 09-18) CREATININE (test 0.71 MG/DL 0.60-1.30 code = 2213) eGFR (2020 CKD-EPI) 101 >60 (test code = 49840) ML/MIN/1.73 CALC BUN/CREAT (test 20 RATIO 6-28 code = 2235) SODIUM (test code = 140 MEQ/L 591-286 4267) POTASSIUM (test code 4.4 MEQ/L 3.5-5.4 = 2227) CHLORIDE (test code 106 MEQ/L 95-107 = 2214) CARBON DIOXIDE (test 19 MEQ/L 19-31 code = 220) CALCIUM (test code = 11.2 MG/DL 8.5-10.5 H 2208) PROTEIN, TOTAL (test 6.9 G/DL 6.1-8.3 code = 2228) ALBUMIN (test code = 4.3 G/DL 3.5-5.2 2200) CALC GLOBULIN (test 2.6 G/DL 1.9-3.7 code = 224) CALC A/G [...] code = 33 U/L 5-40 2218) CCP [id number] 04:51:18 Test Item Value Reference Range Interpretation Comments CCP IgG (test <0.5 U/ML <3.0 INTERPRET ALEK code = 90294) INFORMATION * INTERPRETATION RESULT NEGATIVE <3.0 U /ML POSITIVE >=3.0 U/ML TSH, THIRD [id number] 00:00:00 Test Item Value Reference Range Interpretation Comments TSH, THIRD GENERATION (test code 1.220 UIU/ML = 2821) TSH, THIRD [id number] 00:00:00 Test Item Value Reference Range Interpretation Comments TSH, THIRD GENERATION (test code 1.220 UIU/ML = 2821) TSH, THIRD [id number] 00:00:00 Test Item Value Reference Range Interpretation Comments TSH, THIRD GENERATION (test code 1.220 UIU/ML = 2821) CCP [id number] 00:00:00 Test Item Value Reference Range Interpretation Comments CCP IgG (test code = 03547) <0.5 U/ML CCP [id number] 00:00:00 Test Item Value Reference Range Interpretation Comments CCP IgG (test code = 98150) <0.5 U/ML CCP [id number] 00:00:00 Test Item Value Reference Range Interpretation Comments CCP IgG (test code = 62678) <0.5 U/ML RHEUMATOID FACTOR, [id number] 00:00:00 Test Item Value Reference Range Interpretation Comments RHEUMATOID FACTOR, QUANT (test code <10 IU/ML = 3502) RHEUMATOID FACTOR, [id number] 00:00:00 Test Item Value Reference Range Interpretation Comments RHEUMATOID FACTOR, QUANT (test code <10 IU/ML = 3502) RHEUMATOID FACTOR, [id number] 00:00:00 Test Item Value Reference Range Interpretation Comments RHEUMATOID FACTOR, QUANT (test code <10 IU/ML = 3502) URIC [id number] 00:00:00 Test Item Value Reference Range Interpretation Comments URIC ACID (test code = 2233) 7.4 MG/DL URIC [id number] 00:00:00 Test Item Value Reference Range Interpretation Comments URIC ACID (test code = 2233) 7.4 MG/DL HEMOGLOBIN [id number] 00:00:00 Test Item Value Reference Range Interpretation Comments HEMOGLOBIN A1c (test code = 00508) 5.4 % HEMOGLOBIN [id number] 00:00:00 Test Item Value Reference Range Interpretation Comments HEMOGLOBIN A1c (test code = 60127) 5.4 % HEMOGLOBIN [id number] 00:00:00 Test Item Value Reference Range Interpretation Comments HEMOGLOBIN A1c (test code = 88788) 5.4 % COMPREHENSIVE METABOLIC [id number] 00:00:00 Test Item Value Reference Range Interpretation Comments GLUCOSE (test code = 2217) 88 MG/DL BUN (test code = 2208) 14 MG/DL CREATININE (test code = 2214) 0.71 MG/DL eGFR (2020 CKD-EPI) (test 101 ML/MIN/1.73 code = 43902) CALC BUN/CREAT (test code = 20 RATIO [...] code = 2219) 33 U/L COMPREHENSIVE METABOLIC [id number] 00:00:00 Test Item Value Reference Range Interpretation Comments GLUCOSE (test code = 2217) 88 MG/DL BUN (test code = 2208) 14 MG/DL CREATININE (test code = 2214) 0.71 MG/DL eGFR (2020 CKD-EPI) (test 101 ML/MIN/1.73 code = 81122) CALC BUN/CREAT (test code = 20 RATIO [...] (test code = 2219) 33 U/L LIPID [id number] 00:00:00 Test Item Value Reference Range Interpretation Comments CHOLESTEROL (test code = 2210) 135 MG/DL TRIGLYCERIDES (test code = 2232) 147 MG/DL HDL CHOLESTEROL (test code = 2220) 31 MG/DL CALC LDL CHOL (test code = 2237) 80 MG/DL RISK RATIO LDL/HDL (test code = 2.58 RATIO 2238) LIPID [id number] 00:00:00 Test Item Value Reference Range Interpretation Comments CHOLESTEROL (test code = 2210) 135 MG/DL TRIGLYCERIDES (test code = 2232) 147 MG/DL HDL CHOLESTEROL (test code = 2220) 31 MG/DL CALC LDL CHOL (test code = 2237) 80 MG/DL RISK RATIO LDL/HDL (test code = 2.58 RATIO 2238) SEDIMENTATION [id number] 00:00:00 Test Item Value Reference Range Interpretation Comments SEDIMENTATION RATE (test code = 2 MM/HOUR 1017) SEDIMENTATION [id number] 00:00:00 Test Item Value Reference Range Interpretation Comments SEDIMENTATION RATE (test code = 2 MM/HOUR 1017) TSH, THIRD [id number] 00:00:00 Test Item Value Reference Range Interpretation Comments TSH, THIRD GENERATION (test code 1.220 UIU/ML = 2821) TSH, THIRD [id number] 00:00:00 Test Item Value Reference Range Interpretation Comments TSH, THIRD GENERATION (test code 1.220 UIU/ML = 2821) TSH, THIRD [id number] 00:00:00 Test Item Value Reference Range Interpretation Comments TSH, THIRD GENERATION (test code 1.220 UIU/ML = 2821) CCP [id number] 00:00:00 Test Item Value Reference Range Interpretation Comments CCP IgG (test code = 62935) <0.5 U/ML CCP [id number] 00:00:00 Test Item Value Reference Range Interpretation Comments CCP IgG (test code = 98966) <0.5 U/ML CCP [id number] 00:00:00 Test Item Value Reference Range Interpretation Comments CCP IgG (test code = 80796) <0.5 U/ML RHEUMATOID FACTOR, [id number] 00:00:00 Test Item Value Reference Range Interpretation Comments RHEUMATOID FACTOR, QUANT (test code <10 IU/ML = 3502) RHEUMATOID FACTOR, [id number] 00:00:00 Test Item Value Reference Range Interpretation Comments RHEUMATOID FACTOR, QUANT (test code <10 IU/ML = 3502) RHEUMATOID FACTOR, [id number] 00:00:00 Test Item Value Reference Range Interpretation Comments RHEUMATOID FACTOR, QUANT (test code <10 IU/ML = 3502) URIC [id number] 00:00:00 Test Item Value Reference Range Interpretation Comments URIC ACID (test code = 2233) 7.4 MG/DL URIC [id number] 00:00:00 Test Item Value Reference Range Interpretation Comments URIC ACID (test code = 2233) 7.4 MG/DL HEMOGLOBIN [id number] 00:00:00 Test Item Value Reference Range Interpretation Comments HEMOGLOBIN A1c (test code = 16176) 5.4 % HEMOGLOBIN [id number] 00:00:00 Test Item Value Reference Range Interpretation Comments HEMOGLOBIN A1c (test code = 08713) 5.4 % HEMOGLOBIN [id number] 00:00:00 Test Item Value Reference Range Interpretation Comments HEMOGLOBIN A1c (test code = 50042) 5.4 % COMPREHENSIVE METABOLIC [id number] 00:00:00 Test Item Value Reference Range Interpretation Comments GLUCOSE (test code = 2217) 88 MG/DL BUN (test code = 2208) 14 MG/DL CREATININE (test code = 2214) 0.71 MG/DL eGFR (2020 CKD-EPI) (test 101 ML/MIN/1.73 code = 54766) CALC BUN/CREAT (test code = 20 RATIO [...] code = 2219) 33 U/L COMPREHENSIVE METABOLIC [id number] 00:00:00 Test Item Value Reference Range Interpretation Comments GLUCOSE (test code = 2217) 88 MG/DL BUN (test code = 2208) 14 MG/DL CREATININE (test code = 2214) 0.71 MG/DL eGFR (2020 CKD-EPI) (test 101 ML/MIN/1.73 code = 52673) CALC BUN/CREAT (test code = 20 RATIO [...] (test code = 2219) 33 U/L LIPID [id number] 00:00:00 Test Item Value Reference Range Interpretation Comments CHOLESTEROL (test code = 2210) 135 MG/DL TRIGLYCERIDES (test code = 2232) 147 MG/DL HDL CHOLESTEROL (test code = 2220) 31 MG/DL CALC LDL CHOL (test code = 2237) 80 MG/DL RISK RATIO LDL/HDL (test code = 2.58 RATIO 2238) LIPID [id number] 00:00:00 Test Item Value Reference Range Interpretation Comments CHOLESTEROL (test code = 2210) 135 MG/DL TRIGLYCERIDES (test code = 2232) 147 MG/DL HDL CHOLESTEROL (test code = 2220) 31 MG/DL CALC LDL CHOL (test code = 2237) 80 MG/DL RISK RATIO LDL/HDL (test code = 2.58 RATIO 2238) SEDIMENTATION [id number] 00:00:00 Test Item Value Reference Range Interpretation Comments SEDIMENTATION RATE (test code = 2 MM/HOUR 1017) SEDIMENTATION [id number] 00:00:00 Test Item Value Reference Range Interpretation Comments SEDIMENTATION RATE (test code = 2 MM/HOUR 1017) TSH, THIRD [id number] 00:00:00 Test Item Value Reference Range Interpretation Comments TSH, THIRD GENERATION (test code 1.220 UIU/ML = 2821) TSH, THIRD [id number] 00:00:00 Test Item Value Reference Range Interpretation Comments TSH, THIRD GENERATION (test code 1.220 UIU/ML = 2821) TSH, THIRD [id number] 00:00:00 Test Item Value Reference Range Interpretation Comments TSH, THIRD GENERATION (test code 1.220 UIU/ML = 2821) CCP [id number] 00:00:00 Test Item Value Reference Range Interpretation Comments CCP IgG (test code = 26459) <0.5 U/ML CCP [id number] 00:00:00 Test Item Value Reference Range Interpretation Comments CCP IgG (test code = 04767) <0.5 U/ML CCP [id number] 00:00:00 Test Item Value Reference Range Interpretation Comments CCP IgG (test code = 68403) <0.5 U/ML RHEUMATOID FACTOR, [id number] 00:00:00 Test Item Value Reference Range Interpretation Comments RHEUMATOID FACTOR, QUANT (test code <10 IU/ML = 3502) RHEUMATOID FACTOR, [id number] 00:00:00 Test Item Value Reference Range Interpretation Comments RHEUMATOID FACTOR, QUANT (test code <10 IU/ML = 3502) RHEUMATOID FACTOR, [id number] 00:00:00 Test Item Value Reference Range Interpretation Comments RHEUMATOID FACTOR, QUANT (test code <10 IU/ML = 3502) URIC [id number] 00:00:00 Test Item Value Reference Range Interpretation Comments URIC ACID (test code = 2233) 7.4 MG/DL URIC [id number] 00:00:00 Test Item Value Reference Range Interpretation Comments URIC ACID (test code = 2233) 7.4 MG/DL HEMOGLOBIN [id number] 00:00:00 Test Item Value Reference Range Interpretation Comments HEMOGLOBIN A1c (test code = 33778) 5.4 % HEMOGLOBIN [id number] 00:00:00 Test Item Value Reference Range Interpretation Comments HEMOGLOBIN A1c (test code = 14445) 5.4 % HEMOGLOBIN [id number] 00:00:00 Test Item Value Reference Range Interpretation Comments HEMOGLOBIN A1c (test code = 61267) 5.4 % COMPREHENSIVE METABOLIC [id number] 00:00:00 Test Item Value Reference Range Interpretation Comments GLUCOSE (test code = 2217) 88 MG/DL BUN (test code = 2208) 14 MG/DL CREATININE (test code = 2214) 0.71 MG/DL eGFR (2020 CKD-EPI) (test 101 ML/MIN/1.73 code = 23397) CALC BUN/CREAT (test code = 20 RATIO [...] code = 2219) 33 U/L COMPREHENSIVE METABOLIC [id number] 00:00:00 Test Item Value Reference Range Interpretation Comments GLUCOSE (test code = 2217) 88 MG/DL BUN (test code = 2208) 14 MG/DL CREATININE (test code = 2214) 0.71 MG/DL eGFR (2020 CKD-EPI) (test 101 ML/MIN/1.73 code = 15989) CALC BUN/CREAT (test code = 20 RATIO [...] (test code = 2219) 33 U/L LIPID [id number] 00:00:00 Test Item Value Reference Range Interpretation Comments CHOLESTEROL (test code = 2210) 135 MG/DL TRIGLYCERIDES (test code = 2232) 147 MG/DL HDL CHOLESTEROL (test code = 2220) 31 MG/DL CALC LDL CHOL (test code = 2237) 80 MG/DL RISK RATIO LDL/HDL (test code = 2.58 RATIO 2238) LIPID [id number] 00:00:00 Test Item Value Reference Range Interpretation Comments CHOLESTEROL (test code = 2210) 135 MG/DL TRIGLYCERIDES (test code = 2232) 147 MG/DL HDL CHOLESTEROL (test code = 2220) 31 MG/DL CALC LDL CHOL (test code = 2237) 80 MG/DL RISK RATIO LDL/HDL (test code = 2.58 RATIO 2238) SEDIMENTATION [id number] 00:00:00 Test Item Value Reference Range Interpretation Comments SEDIMENTATION RATE (test code = 2 MM/HOUR 1017) SEDIMENTATION [id number] 00:00:00 Test Item Value Reference Range Interpretation Comments SEDIMENTATION RATE (test code = 2 MM/HOUR 1017) TSH, THIRD [id number] 00:00:00 Test Item Value Reference Range Interpretation Comments TSH, THIRD GENERATION (test code 1.220 UIU/ML = 2821) TSH, THIRD [id number] 00:00:00 Test Item Value Reference Range Interpretation Comments TSH, THIRD GENERATION (test code 1.220 UIU/ML = 2821) TSH, THIRD [id number] 00:00:00 Test Item Value Reference Range Interpretation Comments TSH, THIRD GENERATION (test code 1.220 UIU/ML = 2821) CCP [id number] 00:00:00 Test Item Value Reference Range Interpretation Comments CCP IgG (test code = 38852) <0.5 U/ML CCP [id number] 00:00:00 Test Item Value Reference Range Interpretation Comments CCP IgG (test code = 68086) <0.5 U/ML CCP [id number] 00:00:00 Test Item Value Reference Range Interpretation Comments CCP IgG (test code = 55702) <0.5 U/ML RHEUMATOID FACTOR, [id number] 00:00:00 Test Item Value Reference Range Interpretation Comments RHEUMATOID FACTOR, QUANT (test code <10 IU/ML = 3502) RHEUMATOID FACTOR, [id number] 00:00:00 Test Item Value Reference Range Interpretation Comments RHEUMATOID FACTOR, QUANT (test code <10 IU/ML = 3502) RHEUMATOID FACTOR, [id number] 00:00:00 Test Item Value Reference Range Interpretation Comments RHEUMATOID FACTOR, QUANT (test code <10 IU/ML = 3502) URIC [id number] 00:00:00 Test Item Value Reference Range Interpretation Comments URIC ACID (test code = 2233) 7.4 MG/DL URIC [id number] 00:00:00 Test Item Value Reference Range Interpretation Comments URIC ACID (test code = 2233) 7.4 MG/DL HEMOGLOBIN [id number] 00:00:00 Test Item Value Reference Range Interpretation Comments HEMOGLOBIN A1c (test code = 89957) 5.4 % HEMOGLOBIN [id number] 00:00:00 Test Item Value Reference Range Interpretation Comments HEMOGLOBIN A1c (test code = 96146) 5.4 % HEMOGLOBIN [id number] 00:00:00 Test Item Value Reference Range Interpretation Comments HEMOGLOBIN A1c (test code = 48390) 5.4 % COMPREHENSIVE METABOLIC [id number] 00:00:00 Test Item Value Reference Range Interpretation Comments GLUCOSE (test code = 2217) 88 MG/DL BUN (test code = 2208) 14 MG/DL CREATININE (test code = 2214) 0.71 MG/DL eGFR (2020 CKD-EPI) (test 101 ML/MIN/1.73 code = 39048) CALC BUN/CREAT (test code = 20 RATIO [...] code = 2219) 33 U/L COMPREHENSIVE METABOLIC [id number] 00:00:00 Test Item Value Reference Range Interpretation Comments GLUCOSE (test code = 2217) 88 MG/DL BUN (test code = 2208) 14 MG/DL CREATININE (test code = 2214) 0.71 MG/DL eGFR (2020 CKD-EPI) (test 101 ML/MIN/1.73 code = 32864) CALC BUN/CREAT (test code = 20 RATIO [...] (test code = 2219) 33 U/L LIPID [id number] 00:00:00 Test Item Value Reference Range Interpretation Comments CHOLESTEROL (test code = 2210) 135 MG/DL TRIGLYCERIDES (test code = 2232) 147 MG/DL HDL CHOLESTEROL (test code = 2220) 31 MG/DL CALC LDL CHOL (test code = 2237) 80 MG/DL RISK RATIO LDL/HDL (test code = 2.58 RATIO 2238) LIPID [id number] 00:00:00 Test Item Value Reference Range Interpretation Comments CHOLESTEROL (test code = 2210) 135 MG/DL TRIGLYCERIDES (test code = 2232) 147 MG/DL HDL CHOLESTEROL (test code = 2220) 31 MG/DL CALC LDL CHOL (test code = 2237) 80 MG/DL RISK RATIO LDL/HDL (test code = 2.58 RATIO 2238) SEDIMENTATION [id number] 00:00:00 Test Item Value Reference Range Interpretation Comments SEDIMENTATION RATE (test code = 2 MM/HOUR 1017) SEDIMENTATION [id number] 00:00:00 Test Item Value Reference Range Interpretation Comments SEDIMENTATION RATE (test code = 2 MM/HOUR 1017) TSH, THIRD [id number] 00:00:00 Test Item Value Reference Range Interpretation Comments TSH, THIRD GENERATION (test code 1.220 UIU/ML = 2821) TSH, THIRD [id number] 00:00:00 Test Item Value Reference Range Interpretation Comments TSH, THIRD GENERATION (test code 1.220 UIU/ML = 2821) TSH, THIRD [id number] 00:00:00 Test Item Value Reference Range Interpretation Comments TSH, THIRD GENERATION (test code 1.220 UIU/ML = 2821) CCP [id number] 00:00:00 Test Item Value Reference Range Interpretation Comments CCP IgG (test code = 07533) <0.5 U/ML CCP [id number] 00:00:00 Test Item Value Reference Range Interpretation Comments CCP IgG (test code = 26183) <0.5 U/ML CCP [id number] 00:00:00 Test Item Value Reference Range Interpretation Comments CCP IgG (test code = 45574) <0.5 U/ML RHEUMATOID FACTOR, [id number] 00:00:00 Test Item Value Reference Range Interpretation Comments RHEUMATOID FACTOR, QUANT (test code <10 IU/ML = 3502) RHEUMATOID FACTOR, [id number] 00:00:00 Test Item Value Reference Range Interpretation Comments RHEUMATOID FACTOR, QUANT (test code <10 IU/ML = 3502) RHEUMATOID FACTOR, [id number] 00:00:00 Test Item Value Reference Range Interpretation Comments RHEUMATOID FACTOR, QUANT (test code <10 IU/ML = 3502) URIC [id number] 00:00:00 Test Item Value Reference Range Interpretation Comments URIC ACID (test code = 2233) 7.4 MG/DL URIC [id number] 00:00:00 Test Item Value Reference Range Interpretation Comments URIC ACID (test code = 2233) 7.4 MG/DL HEMOGLOBIN [id number] 00:00:00 Test Item Value Reference Range Interpretation Comments HEMOGLOBIN A1c (test code = 30929) 5.4 % HEMOGLOBIN [id number] 00:00:00 Test Item Value Reference Range Interpretation Comments HEMOGLOBIN A1c (test code = 83525) 5.4 % HEMOGLOBIN [id number] 00:00:00 Test Item Value Reference Range Interpretation Comments HEMOGLOBIN A1c (test code = 10615) 5.4 % COMPREHENSIVE METABOLIC [id number] 00:00:00 Test Item Value Reference Range Interpretation Comments GLUCOSE (test code = 2217) 88 MG/DL BUN (test code = 2208) 14 MG/DL CREATININE (test code = 2214) 0.71 MG/DL eGFR (2020 CKD-EPI) (test 101 ML/MIN/1.73 code = 32703) CALC BUN/CREAT (test code = 20 RATIO [...] code = 2219) 33 U/L COMPREHENSIVE METABOLIC [id number] 00:00:00 Test Item Value Reference Range Interpretation Comments GLUCOSE (test code = 2217) 88 MG/DL BUN (test code = 2208) 14 MG/DL CREATININE (test code = 2214) 0.71 MG/DL eGFR (2020 CKD-EPI) (test 101 ML/MIN/1.73 code = 37672) CALC BUN/CREAT (test code = 20 RATIO [...] (test code = 2219) 33 U/L LIPID [id number] 00:00:00 Test Item Value Reference Range Interpretation Comments CHOLESTEROL (test code = 2210) 135 MG/DL TRIGLYCERIDES (test code = 2232) 147 MG/DL HDL CHOLESTEROL (test code = 2220) 31 MG/DL CALC LDL CHOL (test code = 2237) 80 MG/DL RISK RATIO LDL/HDL (test code = 2.58 RATIO 2238) LIPID [id number] 00:00:00 Test Item Value Reference Range Interpretation Comments CHOLESTEROL (test code = 2210) 135 MG/DL TRIGLYCERIDES (test code = 2232) 147 MG/DL HDL CHOLESTEROL (test code = 2220) 31 MG/DL CALC LDL CHOL (test code = 2237) 80 MG/DL RISK RATIO LDL/HDL (test code = 2.58 RATIO 2238) SEDIMENTATION [id number] 00:00:00 Test Item Value Reference Range Interpretation Comments SEDIMENTATION RATE (test code = 2 MM/HOUR 1017) SEDIMENTATION [id number] 00:00:00 Test Item Value Reference Range Interpretation Comments SEDIMENTATION RATE (test code = 2 MM/HOUR 1017) TSH, THIRD [id number] 00:00:00 Test Item Value Reference Range Interpretation Comments TSH, THIRD GENERATION (test code 1.220 UIU/ML = 2821) TSH, THIRD [id number] 00:00:00 Test Item Value Reference Range Interpretation Comments TSH, THIRD GENERATION (test code 1.220 UIU/ML = 2821) TSH, THIRD [id number] 00:00:00 Test Item Value Reference Range Interpretation Comments TSH, THIRD GENERATION (test code 1.220 UIU/ML = 2821) CCP [id number] 00:00:00 Test Item Value Reference Range Interpretation Comments CCP IgG (test code = 27932) <0.5 U/ML CCP [id number] 00:00:00 Test Item Value Reference Range Interpretation Comments CCP IgG (test code = 08501) <0.5 U/ML CCP [id number] 00:00:00 Test Item Value Reference Range Interpretation Comments CCP IgG (test code = 62365) <0.5 U/ML RHEUMATOID FACTOR, [id number] 00:00:00 Test Item Value Reference Range Interpretation Comments RHEUMATOID FACTOR, QUANT (test code <10 IU/ML = 3502) RHEUMATOID FACTOR, [id number] 00:00:00 Test Item Value Reference Range Interpretation Comments RHEUMATOID FACTOR, QUANT (test code <10 IU/ML = 3502) RHEUMATOID FACTOR, [id number] 00:00:00 Test Item Value Reference Range Interpretation Comments RHEUMATOID FACTOR, QUANT (test code <10 IU/ML = 3502) URIC [id number] 00:00:00 Test Item Value Reference Range Interpretation Comments URIC ACID (test code = 2233) 7.4 MG/DL URIC [id number] 00:00:00 Test Item Value Reference Range Interpretation Comments URIC ACID (test code = 2233) 7.4 MG/DL HEMOGLOBIN [id number] 00:00:00 Test Item Value Reference Range Interpretation Comments HEMOGLOBIN A1c (test code = 49144) 5.4 % HEMOGLOBIN [id number] 00:00:00 Test Item Value Reference Range Interpretation Comments HEMOGLOBIN A1c (test code = 28952) 5.4 % HEMOGLOBIN [id number] 00:00:00 Test Item Value Reference Range Interpretation Comments HEMOGLOBIN A1c (test code = 75806) 5.4 % COMPREHENSIVE METABOLIC [id number] 00:00:00 Test Item Value Reference Range Interpretation Comments GLUCOSE (test code = 2217) 88 MG/DL BUN (test code = 2208) 14 MG/DL CREATININE (test code = 2214) 0.71 MG/DL eGFR (2020 CKD-EPI) (test 101 ML/MIN/1.73 code = 13762) CALC BUN/CREAT (test code = 20 RATIO [...] = 220) AST (test code = 2218) 21 U/L ALT (test code = 2219) 33 U/L COMPREHENSIVE METABOLIC [id number] 00:00:00 Test Item Value Reference Range Interpretation Comments GLUCOSE (test code = 2217) 88 MG/DL BUN (test code = 2208) 14 MG/DL CREATININE (test code = 2214) 0.71 MG/DL eGFR (2020 CKD-EPI) (test 101 ML/MIN/1.73 code = 66349) CALC BUN/CREAT (test code = 20 RATIO 2235) SODIUM (test code = 2231) 140 MEQ/L POTASSIUM (test code = 2228) 4.4 MEQ/L CHLORIDE (test code = 2215) 106 MEQ/L CARBON DIOXIDE (test code = 19 MEQ/L 6) CALCIUM (test code = 2209) [...] (test code = 2219) 33 U/L LIPID [id number] 00:00:00 Test Item Value Reference Range Interpretation Comments CHOLESTEROL (test code = 2210) 135 MG/DL TRIGLYCERIDES (test code = 2232) 147 MG/DL HDL CHOLESTEROL (test code = 2220) 31 MG/DL CALC LDL CHOL (test code = 2237) 80 MG/DL RISK RATIO LDL/HDL (test code = 2.58 RATIO 2238) LIPID [id number] 00:00:00 Test Item Value Reference Range Interpretation Comments CHOLESTEROL (test code = 2210) 135 MG/DL TRIGLYCERIDES (test code = 2232) 147 MG/DL HDL CHOLESTEROL (test code = 2220) 31 MG/DL CALC LDL CHOL (test code = 2237) 80 MG/DL RISK RATIO LDL/HDL (test code = 2.58 RATIO 2238) SEDIMENTATION [id number] 00:00:00 Test Item Value Reference Range Interpretation Comments SEDIMENTATION RATE (test code = 2 MM/HOUR 1017) SEDIMENTATION [id number] 00:00:00 Test Item Value Reference Range Interpretation Comments SEDIMENTATION RATE (test code = 2 MM/HOUR 1017) TSH, THIRD [id number] 00:00:00 Test Item Value Reference Range Interpretation Comments TSH, THIRD GENERATION (test code 1.220 UIU/ML = 2821) TSH, THIRD [id number] 00:00:00 Test Item Value Reference Range Interpretation Comments TSH, THIRD GENERATION (test code 1.220 UIU/ML = 2821) TSH, THIRD [id number] 00:00:00 Test Item Value Reference Range Interpretation Comments TSH, THIRD GENERATION (test code 1.220 UIU/ML = 2821) CCP [id number] 00:00:00 Test Item Value Reference Range Interpretation Comments CCP IgG (test code = 30280) <0.5 U/ML CCP [id number] 00:00:00 Test Item Value Reference Range Interpretation Comments CCP IgG (test code = 47182) <0.5 U/ML CCP [id number] 00:00:00 Test Item Value Reference Range Interpretation Comments CCP IgG (test code = 10903) <0.5 U/ML RHEUMATOID FACTOR, [id number] 00:00:00 Test Item Value Reference Range Interpretation Comments RHEUMATOID FACTOR, QUANT (test code <10 IU/ML = 3502) RHEUMATOID FACTOR, [id number] 00:00:00 Test Item Value Reference Range Interpretation Comments RHEUMATOID FACTOR, QUANT (test code <10 IU/ML = 3502) RHEUMATOID FACTOR, [id number] 00:00:00 Test Item Value Reference Range Interpretation Comments RHEUMATOID FACTOR, QUANT (test code <10 IU/ML = 3502) URIC [id number] 00:00:00 Test Item Value Reference Range Interpretation Comments URIC ACID (test code = 2233) 7.4 MG/DL URIC [id number] 00:00:00 Test Item Value Reference Range Interpretation Comments URIC ACID (test code = 2233) 7.4 MG/DL HEMOGLOBIN [id number] 00:00:00 Test Item Value Reference Range Interpretation Comments HEMOGLOBIN A1c (test code = 74952) 5.4 % HEMOGLOBIN [id number] 00:00:00 Test Item Value Reference Range Interpretation Comments HEMOGLOBIN A1c (test code = 83595) 5.4 % HEMOGLOBIN [id number] 00:00:00 Test Item Value Reference Range Interpretation Comments HEMOGLOBIN A1c (test code = 53064) 5.4 % COMPREHENSIVE METABOLIC [id number] 00:00:00 Test Item Value Reference Range Interpretation Comments GLUCOSE (test code = 2217) 88 MG/DL BUN (test code = 2208) 14 MG/DL CREATININE (test code = 2214) 0.71 MG/DL eGFR (2020 CKD-EPI) (test 101 ML/MIN/1.73 code = 50837) CALC BUN/CREAT (test code = 20 RATIO [...] code = 2219) 33 U/L COMPREHENSIVE METABOLIC [id number] 00:00:00 Test Item Value Reference Range Interpretation Comments GLUCOSE (test code = 2217) 88 MG/DL BUN (test code = 2208) 14 MG/DL CREATININE (test code = 2214) 0.71 MG/DL eGFR (2020 CKD-EPI) (test 101 ML/MIN/1.73 code = 73522) CALC BUN/CREAT (test code = 20 RATIO [...] (test code = 2219) 33 U/L LIPID [id number] 00:00:00 Test Item Value Reference Range Interpretation Comments CHOLESTEROL (test code = 2210) 135 MG/DL TRIGLYCERIDES (test code = 2232) 147 MG/DL HDL CHOLESTEROL (test code = 2220) 31 MG/DL CALC LDL CHOL (test code = 2237) 80 MG/DL RISK RATIO LDL/HDL (test code = 2.58 RATIO 2238) LIPID [id number] 00:00:00 Test Item Value Reference Range Interpretation Comments CHOLESTEROL (test code = 2210) 135 MG/DL TRIGLYCERIDES (test code = 2232) 147 MG/DL HDL CHOLESTEROL (test code = 2220) 31 MG/DL CALC LDL CHOL (test code = 2237) 80 MG/DL RISK RATIO LDL/HDL (test code = 2.58 RATIO 2238) SEDIMENTATION [id number] 00:00:00 Test Item Value Reference Range Interpretation Comments SEDIMENTATION RATE (test code = 2 MM/HOUR 1017) SEDIMENTATION [id number] 00:00:00 Test Item Value Reference Range Interpretation Comments SEDIMENTATION RATE (test code = 2 MM/HOUR 1017) TSH, THIRD [id number] 00:00:00 Test Item Value Reference Range Interpretation Comments TSH, THIRD GENERATION (test code 1.220 UIU/ML = 2821) TSH, THIRD [id number] 00:00:00 Test Item Value Reference Range Interpretation Comments TSH, THIRD GENERATION (test code 1.220 UIU/ML = 2821) TSH, THIRD [id number] 00:00:00 Test Item Value Reference Range Interpretation Comments TSH, THIRD GENERATION (test code 1.220 UIU/ML = 2821) CCP [id number] 00:00:00 Test Item Value Reference Range Interpretation Comments CCP IgG (test code = 39100) <0.5 U/ML CCP [id number] 00:00:00 Test Item Value Reference Range Interpretation Comments CCP IgG (test code = 01848) <0.5 U/ML CCP [id number] 00:00:00 Test Item Value Reference Range Interpretation Comments CCP IgG (test code = 14409) <0.5 U/ML RHEUMATOID FACTOR, [id number] 00:00:00 Test Item Value Reference Range Interpretation Comments RHEUMATOID FACTOR, QUANT (test code <10 IU/ML = 3502) RHEUMATOID FACTOR, [id number] 00:00:00 Test Item Value Reference Range Interpretation Comments RHEUMATOID FACTOR, QUANT (test code <10 IU/ML = 3502) RHEUMATOID FACTOR, [id number] 00:00:00 Test Item Value Reference Range Interpretation Comments RHEUMATOID FACTOR, QUANT (test code <10 IU/ML = 3502) URIC [id number] 00:00:00 Test Item Value Reference Range Interpretation Comments URIC ACID (test code = 2233) 7.4 MG/DL URIC [id number] 00:00:00 Test Item Value Reference Range Interpretation Comments URIC ACID (test code = 2233) 7.4 MG/DL HEMOGLOBIN [id number] 00:00:00 Test Item Value Reference Range Interpretation Comments HEMOGLOBIN A1c (test code = 53527) 5.4 % HEMOGLOBIN [id number] 00:00:00 Test Item Value Reference Range Interpretation Comments HEMOGLOBIN A1c (test code = 56448) 5.4 % HEMOGLOBIN [id number] 00:00:00 Test Item Value Reference Range Interpretation Comments HEMOGLOBIN A1c (test code = 74986) 5.4 % COMPREHENSIVE METABOLIC [id number] 00:00:00 Test Item Value Reference Range Interpretation Comments GLUCOSE (test code = 2217) 88 MG/DL BUN (test code = 2208) 14 MG/DL CREATININE (test code = 2214) 0.71 MG/DL eGFR (2020 CKD-EPI) (test 101 ML/MIN/1.73 code = 08608) CALC BUN/CREAT (test code = 20 RATIO [...] code = 2219) 33 U/L COMPREHENSIVE METABOLIC [id number] 00:00:00 Test Item Value Reference Range Interpretation Comments GLUCOSE (test code = 2217) 88 MG/DL BUN (test code = 2208) 14 MG/DL CREATININE (test code = 2214) 0.71 MG/DL eGFR (2020 CKD-EPI) (test 101 ML/MIN/1.73 code = 84933) CALC BUN/CREAT (test code = 20 RATIO [...] (test code = 2219) 33 U/L LIPID [id number] 00:00:00 Test Item Value Reference Range Interpretation Comments CHOLESTEROL (test code = 2210) 135 MG/DL TRIGLYCERIDES (test code = 2232) 147 MG/DL HDL CHOLESTEROL (test code = 2220) 31 MG/DL CALC LDL CHOL (test code = 2237) 80 MG/DL RISK RATIO LDL/HDL (test code = 2.58 RATIO 2238) LIPID [id number] 00:00:00 Test Item Value Reference Range Interpretation Comments CHOLESTEROL (test code = 2210) 135 MG/DL TRIGLYCERIDES (test code = 2232) 147 MG/DL HDL CHOLESTEROL (test code = 2220) 31 MG/DL CALC LDL CHOL (test code = 2237) 80 MG/DL RISK RATIO LDL/HDL (test code = 2.58 RATIO 2238) SEDIMENTATION [id number] 00:00:00 Test Item Value Reference Range Interpretation Comments SEDIMENTATION RATE (test code = 2 MM/HOUR 1017) SEDIMENTATION [id number] 00:00:00 Test Item Value Reference Range Interpretation Comments SEDIMENTATION RATE (test code = 2 MM/HOUR 1017) TSH, THIRD [id number] 00:00:00 Test Item Value Reference Range Interpretation Comments TSH, THIRD GENERATION (test code 1.220 UIU/ML = 2821) TSH, THIRD [id number] 00:00:00 Test Item Value Reference Range Interpretation Comments TSH, THIRD GENERATION (test code 1.220 UIU/ML = 2821) TSH, THIRD [id number] 00:00:00 Test Item Value Reference Range Interpretation Comments TSH, THIRD GENERATION (test code 1.220 UIU/ML = 2821) CCP [id number] 00:00:00 Test Item Value Reference Range Interpretation Comments CCP IgG (test code = 53749) <0.5 U/ML CCP [id number] 00:00:00 Test Item Value Reference Range Interpretation Comments CCP IgG (test code = 87346) <0.5 U/ML CCP [id number] 00:00:00 Test Item Value Reference Range Interpretation Comments CCP IgG (test code = 55426) <0.5 U/ML RHEUMATOID FACTOR, [id number] 00:00:00 Test Item Value Reference Range Interpretation Comments RHEUMATOID FACTOR, QUANT (test code <10 IU/ML = 3502) RHEUMATOID FACTOR, [id number] 00:00:00 Test Item Value Reference Range Interpretation Comments RHEUMATOID FACTOR, QUANT (test code <10 IU/ML = 3502) RHEUMATOID FACTOR, [id number] 00:00:00 Test Item Value Reference Range Interpretation Comments RHEUMATOID FACTOR, QUANT (test code <10 IU/ML = 3502) URIC [id number] 00:00:00 Test Item Value Reference Range Interpretation Comments URIC ACID (test code = 2233) 7.4 MG/DL URIC [id number] 00:00:00 Test Item Value Reference Range Interpretation Comments URIC ACID (test code = 2233) 7.4 MG/DL HEMOGLOBIN [id number] 00:00:00 Test Item Value Reference Range Interpretation Comments HEMOGLOBIN A1c (test code = 15039) 5.4 % HEMOGLOBIN [id number] 00:00:00 Test Item Value Reference Range Interpretation Comments HEMOGLOBIN A1c (test code = 12645) 5.4 % HEMOGLOBIN [id number] 00:00:00 Test Item Value Reference Range Interpretation Comments HEMOGLOBIN A1c (test code = 17143) 5.4 % COMPREHENSIVE METABOLIC [id number] 00:00:00 Test Item Value Reference Range Interpretation Comments GLUCOSE (test code = 2217) 88 MG/DL BUN (test code = 2208) 14 MG/DL CREATININE (test code = 2214) 0.71 MG/DL eGFR (2020 CKD-EPI) (test 101 ML/MIN/1.73 code = 30535) CALC BUN/CREAT (test code = 20 RATIO [...] code = 2219) 33 U/L COMPREHENSIVE METABOLIC [id number] 00:00:00 Test Item Value Reference Range Interpretation Comments GLUCOSE (test code = 2217) 88 MG/DL BUN (test code = 2208) 14 MG/DL CREATININE (test code = 2214) 0.71 MG/DL eGFR (2020 CKD-EPI) (test 101 ML/MIN/1.73 code = 58569) CALC BUN/CREAT (test code = 20 RATIO [...] (test code = 2219) 33 U/L LIPID [id number] 00:00:00 Test Item Value Reference Range Interpretation Comments CHOLESTEROL (test code = 2210) 135 MG/DL TRIGLYCERIDES (test code = 2232) 147 MG/DL HDL CHOLESTEROL (test code = 2220) 31 MG/DL CALC LDL CHOL (test code = 2237) 80 MG/DL RISK RATIO LDL/HDL (test code = 2.58 RATIO 2238) LIPID [id number] 00:00:00 Test Item Value Reference Range Interpretation Comments CHOLESTEROL (test code = 2210) 135 MG/DL TRIGLYCERIDES (test code = 2232) 147 MG/DL HDL CHOLESTEROL (test code = 2220) 31 MG/DL CALC LDL CHOL (test code = 2237) 80 MG/DL RISK RATIO LDL/HDL (test code = 2.58 RATIO 2238) SEDIMENTATION [id number] 00:00:00 Test Item Value Reference Range Interpretation Comments SEDIMENTATION RATE (test code = 2 MM/HOUR 1017) SEDIMENTATION [id number] 00:00:00 Test Item Value Reference Range Interpretation Comments SEDIMENTATION RATE (test code = 2 MM/HOUR 1017) TSH, THIRD [id number] 00:00:00 Test Item Value Reference Range Interpretation Comments TSH, THIRD GENERATION (test code 1.220 UIU/ML = 2821) TSH, THIRD [id number] 00:00:00 Test Item Value Reference Range Interpretation Comments TSH, THIRD GENERATION (test code 1.220 UIU/ML = 2821) TSH, THIRD [id number] 00:00:00 Test Item Value Reference Range Interpretation Comments TSH, THIRD GENERATION (test code 1.220 UIU/ML = 2821) CCP [id number] 00:00:00 Test Item Value Reference Range Interpretation Comments CCP IgG (test code = 41175) <0.5 U/ML CCP [id number] 00:00:00 Test Item Value Reference Range Interpretation Comments CCP IgG (test code = 64872) <0.5 U/ML CCP [id number] 00:00:00 Test Item Value Reference Range Interpretation Comments CCP IgG (test code = 34635) <0.5 U/ML RHEUMATOID FACTOR, [id number] 00:00:00 Test Item Value Reference Range Interpretation Comments RHEUMATOID FACTOR, QUANT (test code <10 IU/ML = 3502) RHEUMATOID FACTOR, [id number] 00:00:00 Test Item Value Reference Range Interpretation Comments RHEUMATOID FACTOR, QUANT (test code <10 IU/ML = 3502) RHEUMATOID FACTOR, [id number] 00:00:00 Test Item Value Reference Range Interpretation Comments RHEUMATOID FACTOR, QUANT (test code <10 IU/ML = 3502) URIC [id number] 00:00:00 Test Item Value Reference Range Interpretation Comments URIC ACID (test code = 2233) 7.4 MG/DL URIC [id number] 00:00:00 Test Item Value Reference Range Interpretation Comments URIC ACID (test code = 2233) 7.4 MG/DL HEMOGLOBIN [id number] 00:00:00 Test Item Value Reference Range Interpretation Comments HEMOGLOBIN A1c (test code = 67377) 5.4 % HEMOGLOBIN [id number] 00:00:00 Test Item Value Reference Range Interpretation Comments HEMOGLOBIN A1c (test code = 53962) 5.4 % HEMOGLOBIN [id number] 00:00:00 Test Item Value Reference Range Interpretation Comments HEMOGLOBIN A1c (test code = 31256) 5.4 % COMPREHENSIVE METABOLIC [id number] 00:00:00 Test Item Value Reference Range Interpretation Comments GLUCOSE (test code = 2217) 88 MG/DL BUN (test code = 2208) 14 MG/DL CREATININE (test code = 2214) 0.71 MG/DL eGFR (2020 CKD-EPI) (test 101 ML/MIN/1.73 code = 29611) CALC BUN/CREAT (test code = 20 RATIO [...] code = 2219) 33 U/L COMPREHENSIVE METABOLIC [id number] 00:00:00 Test Item Value Reference Range Interpretation Comments GLUCOSE (test code = 2217) 88 MG/DL BUN (test code = 2208) 14 MG/DL CREATININE (test code = 2214) 0.71 MG/DL eGFR (2020 CKD-EPI) (test 101 ML/MIN/1.73 code = 19396) CALC BUN/CREAT (test code = 20 RATIO [...] (test code = 2219) 33 U/L LIPID [id number] 00:00:00 Test Item Value Reference Range Interpretation Comments CHOLESTEROL (test code = 2210) 135 MG/DL TRIGLYCERIDES (test code = 2232) 147 MG/DL HDL CHOLESTEROL (test code = 2220) 31 MG/DL CALC LDL CHOL (test code = 2237) 80 MG/DL RISK RATIO LDL/HDL (test code = 2.58 RATIO 2238) LIPID [id number] 00:00:00 Test Item Value Reference Range Interpretation Comments CHOLESTEROL (test code = 2210) 135 MG/DL TRIGLYCERIDES (test code = 2232) 147 MG/DL HDL CHOLESTEROL (test code = 2220) 31 MG/DL CALC LDL CHOL (test code = 2237) 80 MG/DL RISK RATIO LDL/HDL (test code = 2.58 RATIO 2238) SEDIMENTATION [id number] 00:00:00 Test Item Value Reference Range Interpretation Comments SEDIMENTATION RATE (test code = 2 MM/HOUR 1017) SEDIMENTATION [id number] 00:00:00 Test Item Value Reference Range Interpretation Comments SEDIMENTATION RATE (test code = 2 MM/HOUR 1017) HEPATITIS PANEL, [id number] 04:33:04 Test Item Value Reference Range Interpretation Comments HEPATITIS A TOTAL AB NON-REACTIVE NON-REACTIVE (test code = 2728) HEPATITIS B SURF AG NON-REACTIVE NON-REACTIVE (test [...] B: (test serology shows no code = 14230) evidence of pa st exposure to orcurrent infec tion with hepatitis B virus. No evide nce of hepatitis Bimmunization i s identified. INTERPRETATION (NOTE) Hepatitis C HEPATITIS C: (test serology shows no code = 47280) evidence of ex posure to hepatitisC v irus at this time. I t can take up to 12 m onths after exposure tothe hepatitis C vir us for antibodies to become detectab le in the blood in ce rtain patients. [id number] 03:36:41 Test Item Value Reference Range Interpretation Comments GGT (test code = 39 U/L <40 UNLESS OTH ERWISE INDICATED, 2215) ALL TESTING PER [facility] [place] [address] [address] LABORATORY DIRE CTOR: TANNER VELASQUEZ M.D. CLIA NUMBER [id number] [facility] [place]. [id number] COMPREHENSIVE METABOLIC [id number] 03:35:34 Test Item Value Reference Range Interpretation Comments GLUCOSE (test code = 98 MG/DL 70-99 2216) BUN (test code = 12 MG/DL -2207) CREATININE (test 0.70 MG/DL 0.60-1.30 code = 2214) eGFR (2020 CKD-EPI) 103 >60 (test code = 39546) ML/MIN/1.73 CALC BUN/CREAT (test 17 RATIO 6-28 code = 2235) SODIUM (test code = 140 MEQ/L 290-533 1887) POTASSIUM (test code 4.6 MEQ/L 3.5-5.4 = 8) CHLORIDE (test code 106 MEQ/L 95-107 = 5) CARBON DIOXIDE (test 21 MEQ/L 19-31 code = 2206) CALCIUM (test code = 10.7 MG/DL 8.5-10.5 H 2209) PROTEIN, TOTAL (test 6.7 G/DL 6.1-8.3 code [...] = 29 U/L 5-40 2218) COMPREHENSIVE METABOLIC [id number] 00:00:00 Test Item Value Reference Range Interpretation Comments GLUCOSE (test code = 7) 98 MG/DL BUN (test code = 2208) 12 MG/DL CREATININE (test code = 2214) 0.70 MG/DL eGFR (2020 CKD-EPI) (test 103 ML/MIN/1.73 code = 37768) CALC BUN/CREAT (test code = 17 RATIO [...] code = 2219) 29 U/L COMPREHENSIVE METABOLIC [id number] 00:00:00 Test Item Value Reference Range Interpretation Comments GLUCOSE (test code = 2217) 98 MG/DL BUN (test code = 2208) 12 MG/DL CREATININE (test code = 2214) 0.70 MG/DL eGFR (2020 CKD-EPI) (test 103 ML/MIN/1.73 code = 07333) CALC BUN/CREAT (test code = 17 RATIO [...] INTERPRETATION HEPATITIS B: (NOTE) (test code = 57222) INTERPRETATION HEPATITIS C: (NOTE) (test code = 90859) HEPATITIS PROFILE (A,B,C)2021-10-14 00:00:00 Test Item Value [...] INTERPRETATION HEPATITIS B: (NOTE) (test code = 55248) INTERPRETATION HEPATITIS C: (NOTE) (test code = 45962) [id number] 00:00:00 Test Item Value Reference Range Interpretation Comments GGT (test code = 2216) 39 U/L [id number] 00:00:00 Test Item Value Reference Range Interpretation Comments GGT (test code = 2216) 39 U/L COMPREHENSIVE METABOLIC [id number] 00:00:00 Test Item Value Reference Range Interpretation Comments GLUCOSE (test code = 2217) 98 MG/DL BUN (test code = 2208) 12 MG/DL CREATININE (test code = 2214) 0.70 MG/DL eGFR (2020 CKD-EPI) (test 103 ML/MIN/1.73 code = 13262) CALC BUN/CREAT (test code = 17 RATIO [...] code = 2219) 29 U/L COMPREHENSIVE METABOLIC [id number] 00:00:00 Test Item Value Reference Range Interpretation Comments GLUCOSE (test code = 2217) 98 MG/DL BUN (test code = 2208) 12 MG/DL CREATININE (test code = 2214) 0.70 MG/DL eGFR (2020 CKD-EPI) (test 103 ML/MIN/1.73 code = 05043) CALC BUN/CREAT (test code = 17 RATIO [...] INTERPRETATION HEPATITIS B: (NOTE) (test code = 71935) INTERPRETATION HEPATITIS C: (NOTE) (test code = 52842) HEPATITIS PROFILE (A,B,C)2021-10-14 00:00:00 Test Item Value [...] INTERPRETATION HEPATITIS B: (NOTE) (test code = 46794) INTERPRETATION HEPATITIS C: (NOTE) (test code = 95784) [id number] 00:00:00 Test Item Value Reference Range Interpretation Comments GGT (test code = 2216) 39 U/L [id number] 00:00:00 Test Item Value Reference Range Interpretation Comments GGT (test code = 2216) 39 U/L COMPREHENSIVE METABOLIC [id number] 00:00:00 Test Item Value Reference Range Interpretation Comments GLUCOSE (test code = 2217) 98 MG/DL BUN (test code = 2208) 12 MG/DL CREATININE (test code = 2214) 0.70 MG/DL eGFR (2020 CKD-EPI) (test 103 ML/MIN/1.73 code = 80212) CALC BUN/CREAT (test code = 17 RATIO [...] code = 2219) 29 U/L COMPREHENSIVE METABOLIC [id number] 00:00:00 Test Item Value Reference Range Interpretation Comments GLUCOSE (test code = 2217) 98 MG/DL BUN (test code = 2208) 12 MG/DL CREATININE (test code = 2214) 0.70 MG/DL eGFR (2020 CKD-EPI) (test 103 ML/MIN/1.73 code = 42730) CALC BUN/CREAT (test code = 17 RATIO [...] INTERPRETATION HEPATITIS B: (NOTE) (test code = 08952) INTERPRETATION HEPATITIS C: (NOTE) (test code = 41558) HEPATITIS PROFILE (A,B,C)2021-10-14 00:00:00 Test Item Value [...] INTERPRETATION HEPATITIS B: (NOTE) (test code = 16625) INTERPRETATION HEPATITIS C: (NOTE) (test code = 16082) [id number] 00:00:00 Test Item Value Reference Range Interpretation Comments GGT (test code = 2216) 39 U/L [id number] 00:00:00 Test Item Value Reference Range Interpretation Comments GGT (test code = 2216) 39 U/L COMPREHENSIVE METABOLIC [id number] 00:00:00 Test Item Value Reference Range Interpretation Comments GLUCOSE (test code = 2217) 98 MG/DL BUN (test code = 2208) 12 MG/DL CREATININE (test code = 2214) 0.70 MG/DL eGFR (2020 CKD-EPI) (test 103 ML/MIN/1.73 code = 28147) CALC BUN/CREAT (test code = 17 RATIO [...] code = 2219) 29 U/L COMPREHENSIVE METABOLIC [id number] 00:00:00 Test Item Value Reference Range Interpretation Comments GLUCOSE (test code = 2217) 98 MG/DL BUN (test code = 2208) 12 MG/DL CREATININE (test code = 2214) 0.70 MG/DL eGFR (2020 CKD-EPI) (test 103 ML/MIN/1.73 code = 58921) CALC BUN/CREAT (test code = 17 RATIO [...] B SURF AG (test code = NON-REACTIVE 005) HEP B CORE TOTAL AB (test code = NON-REACTIVE 2728) HEPATITIS B SURFACE AB (test NON-REACTIVE code = 2737) HEPATITIS C ANTIBODY (test code NON-REACTIVE = 4675) INTERPRETATION HEPATITIS A: (NOTE) (test code = 2552) INTERPRETATION HEPATITIS B: (NOTE) (test code = 33701) INTERPRETATION HEPATITIS C: (NOTE) (test code = 92212) HEPATITIS PROFILE (A,B,C)2021-10-14 00:00:00 Test Item Value [...] INTERPRETATION HEPATITIS B: (NOTE) (test code = 36536) INTERPRETATION HEPATITIS C: (NOTE) (test code = 59532) [id number] 00:00:00 Test Item Value Reference Range Interpretation Comments GGT (test code = 2216) 39 U/L [id number] 00:00:00 Test Item Value Reference Range Interpretation Comments GGT (test code = 2216) 39 U/L COMPREHENSIVE METABOLIC [id number] 00:00:00 Test Item Value Reference Range Interpretation Comments GLUCOSE (test code = 2217) 98 MG/DL BUN (test code = 2208) 12 MG/DL CREATININE (test code = 2214) 0.70 MG/DL eGFR (2020 CKD-EPI) (test 103 ML/MIN/1.73 code = 08554) CALC BUN/CREAT (test code = 17 RATIO 2234) SODIUM (test code = 2231) [...] code = 2219) 29 U/L COMPREHENSIVE METABOLIC [id number] 00:00:00 Test Item Value Reference Range Interpretation Comments GLUCOSE (test code = 2217) 98 MG/DL BUN (test code = 2208) 12 MG/DL CREATININE (test code = 2214) 0.70 MG/DL eGFR (2020 CKD-EPI) (test 103 ML/MIN/1.73 code = 83448) CALC BUN/CREAT (test code = 17 RATIO [...] INTERPRETATION HEPATITIS B: (NOTE) (test code = 40250) INTERPRETATION HEPATITIS C: (NOTE) (test code = 40736) HEPATITIS PROFILE (A,B,C)2021-10-14 00:00:00 Test Item Value Reference Range Interpretation Comments HEPATITIS A TOTAL AB (test code NON-REACTIVE = 2725) HEPATITIS B SURF AG (test code = NON-REACTIVE 2738) HEP B CORE TOTAL AB (test code = NON-REACTIVE 9) HEPATITIS B SURFACE AB (test NON-REACTIVE code = 2737) HEPATITIS C ANTIBODY (test code NON-REACTIVE = 4675) INTERPRETATION HEPATITIS A: (NOTE) (test code = 2552) INTERPRETATION HEPATITIS B: (NOTE) (test code = 27810) INTERPRETATION HEPATITIS C: (NOTE) (test code = 90466) [id number] 00:00:00 Test Item Value Reference Range Interpretation Comments GGT (test code = 2216) 39 U/L [id number] 00:00:00 Test Item Value Reference Range Interpretation Comments GGT (test code = 2216) 39 U/L COMPREHENSIVE METABOLIC [id number] 00:00:00 Test Item Value Reference Range Interpretation Comments GLUCOSE (test code = 2217) 98 MG/DL BUN (test code = 2208) 12 MG/DL CREATININE (test code = 2214) 0.70 MG/DL eGFR (2020 CKD-EPI) (test 103 ML/MIN/1.73 code = 23906) CALC BUN/CREAT (test code = 17 RATIO [...] code = 2219) 29 U/L COMPREHENSIVE METABOLIC [id number] 00:00:00 Test Item Value Reference Range Interpretation Comments GLUCOSE (test code = 2217) 98 MG/DL BUN (test code = 2208) 12 MG/DL CREATININE (test code = 2214) 0.70 MG/DL eGFR (2020 CKD-EPI) (test 103 ML/MIN/1.73 code = 69708) CALC BUN/CREAT (test code = 17 RATIO [...] INTERPRETATION HEPATITIS B: (NOTE) (test code = 28970) INTERPRETATION HEPATITIS C: (NOTE) (test code = 36750) HEPATITIS PROFILE (A,B,C)2021-10-14 00:00:00 Test Item Value [...] INTERPRETATION HEPATITIS B: (NOTE) (test code = 43409) INTERPRETATION HEPATITIS C: (NOTE) (test code = 91978) [id number] 00:00:00 Test Item Value Reference Range Interpretation Comments GGT (test code = 2216) 39 U/L [id number] 00:00:00 Test Item Value Reference Range Interpretation Comments GGT (test code = 2216) 39 U/L COMPREHENSIVE METABOLIC [id number] 00:00:00 Test Item Value Reference Range Interpretation Comments GLUCOSE (test code = 2217) 98 MG/DL BUN (test code = 2208) 12 MG/DL CREATININE (test code = 2214) 0.70 MG/DL eGFR (2020 CKD-EPI) (test 103 ML/MIN/1.73 code = 06616) CALC BUN/CREAT (test code = 17 RATIO [...] code = 2219) 29 U/L COMPREHENSIVE METABOLIC [id number] 00:00:00 Test Item Value Reference Range Interpretation Comments GLUCOSE (test code = 2217) 98 MG/DL BUN (test code = 2208) 12 MG/DL CREATININE (test code = 2214) 0.70 MG/DL eGFR (2020 CKD-EPI) (test 103 ML/MIN/1.73 code = 65079) CALC BUN/CREAT (test code = 17 RATIO [...] INTERPRETATION HEPATITIS B: (NOTE) (test code = 96325) INTERPRETATION HEPATITIS C: (NOTE) (test code = 95377) HEPATITIS PROFILE (A,B,C)2021-10-14 00:00:00 Test Item Value [...] INTERPRETATION HEPATITIS B: (NOTE) (test code = 39930) INTERPRETATION HEPATITIS C: (NOTE) (test code = 83182) [id number] 00:00:00 Test Item Value Reference Range Interpretation Comments GGT (test code = 2216) 39 U/L [id number] 00:00:00 Test Item Value Reference Range Interpretation Comments GGT (test code = 2216) 39 U/L COMPREHENSIVE METABOLIC [id number] 00:00:00 Test Item Value Reference Range Interpretation Comments GLUCOSE (test code = 2217) 98 MG/DL BUN (test code = 2208) 12 MG/DL CREATININE (test code = 2214) 0.70 MG/DL eGFR (2020 CKD-EPI) (test 103 ML/MIN/1.73 code = 24886) CALC BUN/CREAT (test code = 17 RATIO [...] code = 2219) 29 U/L COMPREHENSIVE METABOLIC [id number] 00:00:00 Test Item Value Reference Range Interpretation Comments GLUCOSE (test code = 2217) 98 MG/DL BUN (test code = 2208) 12 MG/DL CREATININE (test code = 2214) 0.70 MG/DL eGFR (2020 CKD-EPI) (test 103 ML/MIN/1.73 code = 94358) CALC BUN/CREAT (test code = 17 RATIO [...] INTERPRETATION HEPATITIS B: (NOTE) (test code = 02628) INTERPRETATION HEPATITIS C: (NOTE) (test code = 51043) HEPATITIS PROFILE (A,B,C)2021-10-14 00:00:00 Test Item Value [...] INTERPRETATION HEPATITIS B: (NOTE) (test code = 11909) INTERPRETATION HEPATITIS C: (NOTE) (test code = 72963) [id number] 00:00:00 Test Item Value Reference Range Interpretation Comments GGT (test code = 2216) 39 U/L [id number] 00:00:00 Test Item Value Reference Range Interpretation Comments GGT (test code = 2216) 39 U/L COMPREHENSIVE METABOLIC [id number] 00:00:00 Test Item Value Reference Range Interpretation Comments GLUCOSE (test code = 2217) 98 MG/DL BUN (test code = 2208) 12 MG/DL CREATININE (test code = 2214) 0.70 MG/DL eGFR (2020 CKD-EPI) (test 103 ML/MIN/1.73 code = 84448) CALC BUN/CREAT (test code = 17 RATIO [...] code = 2219) 29 U/L COMPREHENSIVE METABOLIC [id number] 00:00:00 Test Item Value Reference Range Interpretation Comments GLUCOSE (test code = 2217) 98 MG/DL BUN (test code = 2208) 12 MG/DL CREATININE (test code = 2214) 0.70 MG/DL eGFR (2020 CKD-EPI) (test 103 ML/MIN/1.73 code = 03311) CALC BUN/CREAT (test code = 17 RATIO [...] A TOTAL AB (test code NON-REACTIVE = 4025) HEPATITIS B SURF AG (test code = NON-REACTIVE 2738) HEP B CORE TOTAL AB (test code = NON-REACTIVE 2728) HEPATITIS B SURFACE AB (test NON-REACTIVE code = 7) HEPATITIS C ANTIBODY (test code NON-REACTIVE = 4675) INTERPRETATION HEPATITIS A: (NOTE) (test code = 2552) INTERPRETATION HEPATITIS B: (NOTE) (test code = 42870) INTERPRETATION HEPATITIS C: (NOTE) (test code = 62499) HEPATITIS PROFILE (A,B,C)2021-10-14 00:00:00 Test Item Value [...] INTERPRETATION HEPATITIS B: (NOTE) (test code = 76212) INTERPRETATION HEPATITIS C: (NOTE) (test code = 97140) [id number] 00:00:00 Test Item Value Reference Range Interpretation Comments GGT (test code = 2216) 39 U/L [id number] 00:00:00 Test Item Value Reference Range Interpretation Comments GGT (test code = 2216) 39 U/L COMPREHENSIVE METABOLIC [id number] 00:00:00 Test Item Value Reference Range Interpretation Comments GLUCOSE (test code = 2217) 98 MG/DL BUN (test code = 2208) 12 MG/DL CREATININE (test code = 2214) 0.70 MG/DL eGFR (2020 CKD-EPI) (test 103 ML/MIN/1.73 code = 24643) CALC BUN/CREAT (test code = 17 RATIO [...] code = 2219) 29 U/L COMPREHENSIVE METABOLIC [id number] 00:00:00 Test Item Value Reference Range Interpretation Comments GLUCOSE (test code = 2217) 98 MG/DL BUN (test code = 2208) 12 MG/DL CREATININE (test code = 2214) 0.70 MG/DL eGFR (2020 CKD-EPI) (test 103 ML/MIN/1.73 code = 57385) CALC BUN/CREAT (test code = 17 RATIO [...] INTERPRETATION HEPATITIS B: (NOTE) (test code = 51528) INTERPRETATION HEPATITIS C: (NOTE) (test code = 78558) HEPATITIS PROFILE (A,B,C)2021-10-14 00:00:00 Test Item Value [...] INTERPRETATION HEPATITIS B: (NOTE) (test code = 65374) INTERPRETATION HEPATITIS C: (NOTE) (test code = 43015) [id number] 00:00:00 Test Item Value Reference Range Interpretation Comments GGT (test code = 2216) 39 U/L [id number] 00:00:00 Test Item Value Reference Range Interpretation Comments GGT (test code = 2216) 39 U/L COMPREHENSIVE METABOLIC [id number] 00:00:00 Test Item Value Reference Range Interpretation Comments GLUCOSE (test code = 2217) 98 MG/DL BUN (test code = 2208) 12 MG/DL CREATININE (test code = 2214) 0.70 MG/DL eGFR (2020 CKD-EPI) (test 103 ML/MIN/1.73 code = 55368) CALC BUN/CREAT (test code = 17 RATIO [...] code = 2219) 29 U/L COMPREHENSIVE METABOLIC [id number] 00:00:00 Test Item Value Reference Range Interpretation Comments GLUCOSE (test code = 2217) 98 MG/DL BUN (test code = 2208) 12 MG/DL CREATININE (test code = 2214) 0.70 MG/DL eGFR (2020 CKD-EPI) (test 103 ML/MIN/1.73 code = 58558) CALC BUN/CREAT (test code = 17 RATIO [...] INTERPRETATION HEPATITIS B: (NOTE) (test code = 85880) INTERPRETATION HEPATITIS C: (NOTE) (test code = 92530) HEPATITIS PROFILE (A,B,C)2021-10-14 00:00:00 Test Item Value [...] INTERPRETATION HEPATITIS B: (NOTE) (test code = 61373) INTERPRETATION HEPATITIS C: (NOTE) (test code = 27815) [id number] 00:00:00 Test Item Value Reference Range Interpretation Comments GGT (test code = 2216) 39 U/L [id number] 00:00:00 Test Item Value Reference Range Interpretation Comments GGT (test code = 2216) 39 U/L CALCIUM, URINE, 24 [id number] 07:02:15 Test Item Value Reference Range Interpretation Comments CALCIUM, URINE, 12 MG/DL NOT ESTAB CONC. (test code = 2098) CALCIUM, URINE, 360 MG/24 HR 100-300 H 24 HR (test code = 2065) TOTAL URINE 3000 ML 500-3500 UNLESS OTHERWI SE VOLUME (test code INDICATED, ALL TESTING = 2055) PERFORMED [facility] PATH[facility], [facility]. [address] [place] [address] 4 LABORATORY DIRE CTOR: TANNER HOPKINS M.D. CLIA NUMBER [id number] [facility] [place] [id number] CALCIUM, URINE, 24 [id number] 00:00:00 Test Item Value Reference Range Interpretation Comments CALCIUM, URINE, CONC. (test code 12 MG/DL = 2098) CALCIUM, URINE, 24 HR (test code 360 MG/24HR = 2065) TOTAL URINE VOLUME (test code = 3000 ML 2055) CALCIUM, URINE, 24 [id number] 00:00:00 Test Item Value Reference Range Interpretation Comments CALCIUM, URINE, CONC. (test code 12 MG/DL = 2098) CALCIUM, URINE, 24 HR (test code 360 MG/24HR = 2065) TOTAL URINE VOLUME (test code = 3000 ML 2055) CALCIUM, URINE, 24 [id number] 00:00:00 Test Item Value Reference Range Interpretation Comments CALCIUM, URINE, CONC. (test code 12 MG/DL = 2098) CALCIUM, URINE, 24 HR (test code 360 MG/24HR = 2065) TOTAL URINE VOLUME (test code = 3000 ML 2055) CALCIUM, URINE, 24 [id number] 00:00:00 Test Item Value Reference Range Interpretation Comments CALCIUM, URINE, CONC. (test code 12 MG/DL = 2098) CALCIUM, URINE, 24 HR (test code 360 MG/24HR = 2065) TOTAL URINE VOLUME (test code = 3000 ML 2055) CALCIUM, URINE, 24 [id number] 00:00:00 Test Item Value Reference Range Interpretation Comments CALCIUM, URINE, CONC. (test code 12 MG/DL = 2098) CALCIUM, URINE, 24 HR (test code 360 MG/24HR = 2065) TOTAL URINE VOLUME (test code = 3000 ML 2055) CALCIUM, URINE, 24 [id number] 00:00:00 Test Item Value Reference Range Interpretation Comments CALCIUM, URINE, CONC. (test code 12 MG/DL = 209) CALCIUM, URINE, 24 HR (test code 360 MG/24HR = 2065) TOTAL URINE VOLUME (test code = 3000 ML 2055) CALCIUM, URINE, 24 [id number] 00:00:00 Test Item Value Reference Range Interpretation Comments CALCIUM, URINE, CONC. (test code 12 MG/DL = 2098) CALCIUM, URINE, 24 HR (test code 360 MG/24HR = 2065) TOTAL URINE VOLUME (test code = 3000 ML 2055) CALCIUM, URINE, 24 [id number] 00:00:00 Test Item Value Reference Range Interpretation Comments CALCIUM, URINE, CONC. (test code 12 MG/DL = 2098) CALCIUM, URINE, 24 HR (test code 360 MG/24HR = 2065) TOTAL URINE VOLUME (test code = 3000 ML 2055) CALCIUM, URINE, 24 [id number] 00:00:00 Test Item Value Reference Range Interpretation Comments CALCIUM, URINE, CONC. (test code 12 MG/DL = 2098) CALCIUM, URINE, 24 HR (test code 360 MG/24HR = 2065) TOTAL URINE VOLUME (test code = 3000 ML 2055) CALCIUM, URINE, 24 [id number] 00:00:00 Test Item Value Reference Range Interpretation Comments CALCIUM, URINE, CONC. (test code 12 MG/DL = 2098) CALCIUM, URINE, 24 HR (test code 360 MG/24HR = 2065) TOTAL URINE VOLUME (test code = 3000 ML 2055) CALCIUM, URINE, 24 [id number] 00:00:00 Test Item Value Reference Range Interpretation Comments CALCIUM, URINE, CONC. (test code 12 MG/DL = 209) CALCIUM, URINE, 24 HR (test code 360 MG/24HR = 2065) TOTAL URINE VOLUME (test code = 3000 ML 2055) CALCIUM, URINE, 24 [id number] 00:00:00 Test Item Value Reference Range Interpretation Comments CALCIUM, URINE, CONC. (test code 12 MG/DL = 209) CALCIUM, URINE, 24 HR (test code 360 MG/24HR = 2065) TOTAL URINE VOLUME (test code = 3000 ML 2055) CALCIUM, URINE, 24 [id number] 00:00:00 Test Item Value Reference Range Interpretation Comments CALCIUM, URINE, CONC. (test code 12 MG/DL = 209) CALCIUM, URINE, 24 HR (test code 360 MG/24HR = 2065) TOTAL URINE VOLUME (test code = 3000 ML 2055) CALCIUM, URINE, 24 [id number] 00:00:00 Test Item Value Reference Range Interpretation Comments CALCIUM, URINE, CONC. (test code 12 MG/DL = 209) CALCIUM, URINE, 24 HR (test code 360 MG/24HR = 2065) TOTAL URINE VOLUME (test code = 3000 ML 2055) CALCIUM, URINE, 24 [id number] 00:00:00 Test Item Value Reference Range Interpretation Comments CALCIUM, URINE, CONC. (test code 12 MG/DL = 2098) CALCIUM, URINE, 24 HR (test code 360 MG/24HR = 2065) TOTAL URINE VOLUME (test code = 3000 ML 2055) CALCIUM, URINE, 24 [id number] 00:00:00 Test Item Value Reference Range Interpretation Comments CALCIUM, URINE, CONC. (test code 12 MG/DL = 209) CALCIUM, URINE, 24 HR (test code 360 MG/24HR = 2065) TOTAL URINE VOLUME (test code = 3000 ML 2055) CALCIUM, URINE, 24 [id number] 00:00:00 Test Item Value Reference Range Interpretation Comments CALCIUM, URINE, CONC. (test code 12 MG/DL = 209) CALCIUM, URINE, 24 HR (test code 360 MG/24HR = 2065) TOTAL URINE VOLUME (test code = 3000 ML 2055) CALCIUM, URINE, 24 [id number] 00:00:00 Test Item Value Reference Range Interpretation Comments CALCIUM, URINE, CONC. (test code 12 MG/DL = 209) CALCIUM, URINE, 24 HR (test code 360 MG/24HR = 2065) TOTAL URINE VOLUME (test code = 3000 ML 2055) CALCIUM, URINE, 24 [id number] 00:00:00 Test Item Value Reference Range Interpretation Comments CALCIUM, URINE, CONC. (test code 12 MG/DL = 209) CALCIUM, URINE, 24 HR (test code 360 MG/24HR = 2065) TOTAL URINE VOLUME (test code = 3000 ML 2055) CALCIUM, URINE, 24 [id number] 00:00:00 Test Item Value Reference Range Interpretation Comments CALCIUM, URINE, CONC. (test code 12 MG/DL = 2098) CALCIUM, URINE, 24 HR (test code 360 MG/24HR = 2065) TOTAL URINE VOLUME (test code = 3000 ML 2055) CALCIUM, URINE, 24 [id number] 00:00:00 Test Item Value Reference Range Interpretation Comments CALCIUM, URINE, CONC. (test code 12 MG/DL = 2098) CALCIUM, URINE, 24 HR (test code 360 MG/24HR = 2065) TOTAL URINE VOLUME (test code = 3000 ML 2055) CALCIUM, URINE, 24 [id number] 00:00:00 Test Item Value Reference Range Interpretation Comments CALCIUM, URINE, CONC. (test code 12 MG/DL = 2098) CALCIUM, URINE, 24 HR (test code 360 MG/24HR = 2065) TOTAL URINE VOLUME (test code = 3000 ML 2055) FUROSEMIDE, [id number] 10:22:19 Test Item Value Reference Range Interpretation Comments FUROSEMIDE, None Det ng/mL Reporting Rubi it: 100 SERUM (test ng/mLMean peak serum code = 97780) levels of 2300 +/- 500 ng/mL wereobtai carey approximately 1 hour after a single oral dose of 80 mg furose mide in fasting subject s.This test was devtaryno ped and its performance characteristics determined by [facility]. It has not been cleared or [...] an y result. TESTING PERFORM ED AT [facility] [address] [place] [address] 190 44 CLIA NO. [id number] [place] [id number] FUROSEMIDE, [id number] 00:00:00 Test Item Value Reference Range Interpretation Comments FUROSEMIDE, SERUM (test code = None Det ng/mL 45186) FUROSEMIDE, [id number] 00:00:00 Test Item Value Reference Range Interpretation Comments FUROSEMIDE, SERUM (test code = None Det ng/mL 60167) FUROSEMIDE, [id number] 00:00:00 Test Item Value Reference Range Interpretation Comments FUROSEMIDE, SERUM (test code = None Det ng/mL 50804) FUROSEMIDE, [id number] 00:00:00 Test Item Value Reference Range Interpretation Comments FUROSEMIDE, SERUM (test code = None Det ng/mL 55616) FUROSEMIDE, [id number] 00:00:00 Test Item Value Reference Range Interpretation Comments FUROSEMIDE, SERUM (test code = None Det ng/mL 52423) FUROSEMIDE, [id number] 00:00:00 Test Item Value Reference Range Interpretation Comments FUROSEMIDE, SERUM (test code = None Det ng/mL 43427) FUROSEMIDE, [id number] 00:00:00 Test Item Value Reference Range Interpretation Comments FUROSEMIDE, SERUM (test code = None Det ng/mL 82824) FUROSEMIDE, [id number] 00:00:00 Test Item Value Reference Range Interpretation Comments FUROSEMIDE, SERUM (test code = None Det ng/mL 81656) FUROSEMIDE, [id number] 00:00:00 Test Item Value Reference Range Interpretation Comments FUROSEMIDE, SERUM (test code = None Det ng/mL 72732) FUROSEMIDE, [id number] 00:00:00 Test Item Value Reference Range Interpretation Comments FUROSEMIDE, SERUM (test code = None Det ng/mL 25445) FUROSEMIDE, [id number] 00:00:00 Test Item Value Reference Range Interpretation Comments FUROSEMIDE, SERUM (test code = None Det ng/mL 49033) FUROSEMIDE, [id number] 00:00:00 Test Item Value Reference Range Interpretation Comments FUROSEMIDE, SERUM (test code = None Det ng/mL 60145) FUROSEMIDE, [id number] 00:00:00 Test Item Value Reference Range Interpretation Comments FUROSEMIDE, SERUM (test code = None Det ng/mL 69793) FUROSEMIDE, [id number] 00:00:00 Test Item Value Reference Range Interpretation Comments FUROSEMIDE, SERUM (test code = None Det ng/mL 68146) FUROSEMIDE, [id number] 00:00:00 Test Item Value Reference Range Interpretation Comments FUROSEMIDE, SERUM (test code = None Det ng/mL 18235) FUROSEMIDE, [id number] 00:00:00 Test Item Value Reference Range Interpretation Comments FUROSEMIDE, SERUM (test code = None Det ng/mL 14837) FUROSEMIDE, [id number] 00:00:00 Test Item Value Reference Range Interpretation Comments FUROSEMIDE, SERUM (test code = None Det ng/mL 72495) FUROSEMIDE, [id number] 00:00:00 Test Item Value Reference Range Interpretation Comments FUROSEMIDE, SERUM (test code = None Det ng/mL 97171) FUROSEMIDE, [id number] 00:00:00 Test Item Value Reference Range Interpretation Comments FUROSEMIDE, SERUM (test code = None Det ng/mL 24422) FUROSEMIDE, [id number] 00:00:00 Test Item Value Reference Range Interpretation Comments FUROSEMIDE, SERUM (test code = None Det ng/mL 07351) FUROSEMIDE, [id number] 00:00:00 Test Item Value Reference Range Interpretation Comments FUROSEMIDE, SERUM (test code = None Det ng/mL 57193) FUROSEMIDE, [id number] 00:00:00 Test Item Value Reference Range Interpretation Comments FUROSEMIDE, SERUM (test code = None Det ng/mL 26183) [id number] 11:27:02 Test Item Value Reference Range Interpretation [...] this result as normal/abnor mal. TSH, THIRD [id number] 05:58:42 Test Item Value Reference Range Interpretation Comments TSH, THIRD GENERATION (test code 2.070 UIU/ML 0.400-4.100 = 2821) PROTHROMBIN TIME (PT)2021-10-04 05:04:36 Test Item Value Reference Range Interpretation Comments PROTHROMBIN TIME 14.0 SECONDS 12.5-14.7 (PT) (test code = 1402) INR (test code = 1.0 SEE BELOW CURRENT 85537) RECOMMENDATIONS ARE FOR AN INR OF 2 .0-3.0 FOR ALL PATIENT S ON VITAMIN K ANTAG ONISTS, EXCEPT THOSE WI TH PROSTHETIC HEAR T VALVES, FOR WHO M INR OF 2.5-3.5 IS RECOMMENDED. UN LESS OTHERWISE INDIC ATED, ALL TESTING PER [facility]MED [facility], [place]. [address] [place] [address] [facility] N[facility] DIRECTOR: TANNER VELASQUEZ M.D. CLIA NUMBER [id number] CAP ACCREDITATION N O. [id number] HEMOGLOBIN [id number] 05:01:00 Test Item Value Reference Range Interpretation Comments HEMOGLOBIN A1c (test code = 03549) 5.3 % 4.2-5.6 COMPREHENSIVE METABOLIC [id number] 04:33:44 Test Item Value Reference Range Interpretation Comments GLUCOSE (test code = 126 MG/DL 70-99 H 2216) BUN (test code = 14 MG/DL 6-20 2207) CREATININE (test 0.76 MG/DL 0.60-1.30 code = 2214) eGFR (2020 CKD-EPI) 93 ML/MIN/1.73 >60 (test code = 68575) CALC BUN/CREAT (test 18 RATIO 6-28 code = 2235) SODIUM (test code = 140 MEQ/L 577-396 2631) POTASSIUM (test code 4.1 MEQ/L 3.5-5.4 = [...] code = 89 U/L 5-40 H 2218) [id number] 00:00:00 Test Item Value Reference Range Interpretation Comments TSH, THIRD GENERATION (test code 2.070 UIU/ML = 2821) [id number] 00:00:00 Test Item Value Reference Range Interpretation Comments TSH, THIRD GENERATION (test code 2.070 UIU/ML = 2821) [id number] 00:00:00 Test Item Value Reference Range Interpretation Comments TSH, THIRD GENERATION (test code 2.070 UIU/ML = 2821) HEMOGLOBIN [id number] 00:00:00 Test Item Value Reference Range Interpretation Comments HEMOGLOBIN A1c (test code = 29038) 5.3 % HEMOGLOBIN [id number] 00:00:00 Test Item Value Reference Range Interpretation Comments HEMOGLOBIN A1c (test code = 99406) 5.3 % HEMOGLOBIN [id number] 00:00:00 Test Item Value Reference Range Interpretation Comments HEMOGLOBIN A1c (test code = 84058) 5.3 % [id number] 00:00:00 Test Item Value Reference Range Interpretation Comments D-DIMER (test code = 1405) <0.27 UG/MLFEU [id number] 00:00:00 Test Item Value Reference Range Interpretation Comments D-DIMER (test code = 1405) <0.27 UG/MLFEU PROTHROMBIN TIME (PT)2021-10-04 00:00:00 Test Item Value Reference Range Interpretation Comments PROTHROMBIN TIME (PT) (test code 14.0 SECONDS = 1402) INR (test code = 50807) 1.0 PROTHROMBIN TIME (PT)2021-10-04 00:00:00 Test Item Value Reference Range Interpretation Comments PROTHROMBIN TIME (PT) (test code 14.0 SECONDS = 1402) INR (test code = 90963) 1.0 COMPREHENSIVE METABOLIC [id number] 00:00:00 Test Item Value Reference Range Interpretation Comments GLUCOSE (test code = 2217) 126 MG/DL BUN (test code = 8) 14 MG/DL CREATININE (test code = 2214) 0.76 MG/DL eGFR (2020 CKD-EPI) (test code 93 ML/MIN/1.73 = 15231) CALC BUN/CREAT (test code = 18 RATIO [...] code = 2219) 89 U/L COMPREHENSIVE METABOLIC [id number] 00:00:00 Test Item Value Reference Range Interpretation Comments GLUCOSE (test code = 2217) 126 MG/DL BUN (test code = 2208) 14 MG/DL CREATININE (test code = 2214) 0.76 MG/DL eGFR (2020 CKD-EPI) (test code 93 ML/MIN/1.73 = 00261) CALC BUN/CREAT (test code = 18 RATIO [...] ALT (test code = 2219) 89 U/L [id number] 00:00:00 Test Item Value Reference Range Interpretation Comments TSH, THIRD GENERATION (test code 2.070 UIU/ML = 2821) [id number] 00:00:00 Test Item Value Reference Range Interpretation Comments TSH, THIRD GENERATION (test code 2.070 UIU/ML = 2821) [id number] 00:00:00 Test Item Value Reference Range Interpretation Comments TSH, THIRD GENERATION (test code 2.070 UIU/ML = 2821) HEMOGLOBIN [id number] 00:00:00 Test Item Value Reference Range Interpretation Comments HEMOGLOBIN A1c (test code = 81871) 5.3 % HEMOGLOBIN [id number] 00:00:00 Test Item Value Reference Range Interpretation Comments HEMOGLOBIN A1c (test code = 52727) 5.3 % HEMOGLOBIN [id number] 00:00:00 Test Item Value Reference Range Interpretation Comments HEMOGLOBIN A1c (test code = 89138) 5.3 % [id number] 00:00:00 Test Item Value Reference Range Interpretation Comments D-DIMER (test code = 1405) <0.27 UG/MLFEU [id number] 00:00:00 Test Item Value Reference Range Interpretation Comments D-DIMER (test code = 1405) <0.27 UG/MLFEU PROTHROMBIN TIME (PT)2021-10-04 00:00:00 Test Item Value Reference Range Interpretation Comments PROTHROMBIN TIME (PT) (test code 14.0 SECONDS = 1402) INR (test code = 19702) 1.0 PROTHROMBIN TIME (PT)2021-10-04 00:00:00 Test Item Value Reference Range Interpretation Comments PROTHROMBIN TIME (PT) (test code 14.0 SECONDS = 1402) INR (test code = 75302) 1.0 COMPREHENSIVE METABOLIC [id number] 00:00:00 Test Item Value Reference Range Interpretation Comments GLUCOSE (test code = 2217) 126 MG/DL BUN (test code = 2208) 14 MG/DL CREATININE (test code = 2214) 0.76 MG/DL eGFR (2020 CKD-EPI) (test code 93 ML/MIN/1.73 = 81008) CALC BUN/CREAT (test code = 18 RATIO [...] code = 2219) 89 U/L COMPREHENSIVE METABOLIC [id number] 00:00:00 Test Item Value Reference Range Interpretation Comments GLUCOSE (test code = 2217) 126 MG/DL BUN (test code = 2208) 14 MG/DL CREATININE (test code = 2214) 0.76 MG/DL eGFR (2020 CKD-EPI) (test code 93 ML/MIN/1.73 = 70424) CALC BUN/CREAT (test code = 18 RATIO [...] ALT (test code = 2219) 89 U/L [id number] 00:00:00 Test Item Value Reference Range Interpretation Comments TSH, THIRD GENERATION (test code 2.070 UIU/ML = 2821) [id number] 00:00:00 Test Item Value Reference Range Interpretation Comments TSH, THIRD GENERATION (test code 2.070 UIU/ML = 2821) [id number] 00:00:00 Test Item Value Reference Range Interpretation Comments TSH, THIRD GENERATION (test code 2.070 UIU/ML = 2821) HEMOGLOBIN [id number] 00:00:00 Test Item Value Reference Range Interpretation Comments HEMOGLOBIN A1c (test code = 86224) 5.3 % HEMOGLOBIN [id number] 00:00:00 Test Item Value Reference Range Interpretation Comments HEMOGLOBIN A1c (test code = 87780) 5.3 % HEMOGLOBIN [id number] 00:00:00 Test Item Value Reference Range Interpretation Comments HEMOGLOBIN A1c (test code = 92537) 5.3 % [id number] 00:00:00 Test Item Value Reference Range Interpretation Comments D-DIMER (test code = 1405) <0.27 UG/MLFEU [id number] 00:00:00 Test Item Value Reference Range Interpretation Comments D-DIMER (test code = 1405) <0.27 UG/MLFEU PROTHROMBIN TIME (PT)2021-10-04 00:00:00 Test Item Value Reference Range Interpretation Comments PROTHROMBIN TIME (PT) (test code 14.0 SECONDS = 1402) INR (test code = 36858) 1.0 PROTHROMBIN TIME (PT)2021-10-04 00:00:00 Test Item Value Reference Range Interpretation Comments PROTHROMBIN TIME (PT) (test code 14.0 SECONDS = 1402) INR (test code = 57012) 1.0 COMPREHENSIVE METABOLIC [id number] 00:00:00 Test Item Value Reference Range Interpretation Comments GLUCOSE (test code = 2217) 126 MG/DL BUN (test code = 2208) 14 MG/DL CREATININE (test code = 2214) 0.76 MG/DL eGFR (2020 CKD-EPI) (test code 93 ML/MIN/1.73 = 94593) CALC BUN/CREAT (test code = 18 RATIO [...] code = 2219) 89 U/L COMPREHENSIVE METABOLIC [id number] 00:00:00 Test Item Value Reference Range Interpretation Comments GLUCOSE (test code = 2217) 126 MG/DL BUN (test code = 2208) 14 MG/DL CREATININE (test code = 2214) 0.76 MG/DL eGFR (2020 CKD-EPI) (test code 93 ML/MIN/1.73 = 34029) CALC BUN/CREAT (test code = 18 RATIO [...] ALT (test code = 2219) 89 U/L [id number] 00:00:00 Test Item Value Reference Range Interpretation Comments TSH, THIRD GENERATION (test code 2.070 UIU/ML = 2821) [id number] 00:00:00 Test Item Value Reference Range Interpretation Comments TSH, THIRD GENERATION (test code 2.070 UIU/ML = 2821) [id number] 00:00:00 Test Item Value Reference Range Interpretation Comments TSH, THIRD GENERATION (test code 2.070 UIU/ML = 2821) HEMOGLOBIN [id number] 00:00:00 Test Item Value Reference Range Interpretation Comments HEMOGLOBIN A1c (test code = 75414) 5.3 % HEMOGLOBIN [id number] 00:00:00 Test Item Value Reference Range Interpretation Comments HEMOGLOBIN A1c (test code = 79396) 5.3 % HEMOGLOBIN [id number] 00:00:00 Test Item Value Reference Range Interpretation Comments HEMOGLOBIN A1c (test code = 82055) 5.3 % [id number] 00:00:00 Test Item Value Reference Range Interpretation Comments D-DIMER (test code = 1405) <0.27 UG/MLFEU [id number] 00:00:00 Test Item Value Reference Range Interpretation Comments D-DIMER (test code = 1405) <0.27 UG/MLFEU PROTHROMBIN TIME (PT)2021-10-04 00:00:00 Test Item Value Reference Range Interpretation Comments PROTHROMBIN TIME (PT) (test code 14.0 SECONDS = 1402) INR (test code = 90107) 1.0 PROTHROMBIN TIME (PT)2021-10-04 00:00:00 Test Item Value Reference Range Interpretation Comments PROTHROMBIN TIME (PT) (test code 14.0 SECONDS = 1402) INR (test code = 46964) 1.0 COMPREHENSIVE METABOLIC [id number] 00:00:00 Test Item Value Reference Range Interpretation Comments GLUCOSE (test code = 2217) 126 MG/DL BUN (test code = 2208) 14 MG/DL CREATININE (test code = 2214) 0.76 MG/DL eGFR (2020 CKD-EPI) (test code 93 ML/MIN/1.73 = 70575) CALC BUN/CREAT (test code = 18 RATIO [...] code = 2219) 89 U/L COMPREHENSIVE METABOLIC [id number] 00:00:00 Test Item Value Reference Range Interpretation Comments GLUCOSE (test code = 2217) 126 MG/DL BUN (test code = 2208) 14 MG/DL CREATININE (test code = 2214) 0.76 MG/DL eGFR (2020 CKD-EPI) (test code 93 ML/MIN/1.73 = 85357) CALC BUN/CREAT (test code = 18 RATIO [...] ALT (test code = 2219) 89 U/L [id number] 00:00:00 Test Item Value Reference Range Interpretation Comments TSH, THIRD GENERATION (test code 2.070 UIU/ML = 2821) [id number] 00:00:00 Test Item Value Reference Range Interpretation Comments TSH, THIRD GENERATION (test code 2.070 UIU/ML = 2821) [id number] 00:00:00 Test Item Value Reference Range Interpretation Comments TSH, THIRD GENERATION (test code 2.070 UIU/ML = 2821) HEMOGLOBIN [id number] 00:00:00 Test Item Value Reference Range Interpretation Comments HEMOGLOBIN A1c (test code = 75023) 5.3 % HEMOGLOBIN [id number] 00:00:00 Test Item Value Reference Range Interpretation Comments HEMOGLOBIN A1c (test code = 58268) 5.3 % HEMOGLOBIN [id number] 00:00:00 Test Item Value Reference Range Interpretation Comments HEMOGLOBIN A1c (test code = 51721) 5.3 % [id number] 00:00:00 Test Item Value Reference Range Interpretation Comments D-DIMER (test code = 1405) <0.27 UG/MLFEU [id number] 00:00:00 Test Item Value Reference Range Interpretation Comments D-DIMER (test code = 1405) <0.27 UG/MLFEU PROTHROMBIN TIME (PT)2021-10-04 00:00:00 Test Item Value Reference Range Interpretation Comments PROTHROMBIN TIME (PT) (test code 14.0 SECONDS = 1402) INR (test code = 64992) 1.0 PROTHROMBIN TIME (PT)2021-10-04 00:00:00 Test Item Value Reference Range Interpretation Comments PROTHROMBIN TIME (PT) (test code 14.0 SECONDS = 1402) INR (test code = 06900) 1.0 COMPREHENSIVE METABOLIC [id number] 00:00:00 Test Item Value Reference Range Interpretation Comments GLUCOSE (test code = 2217) 126 MG/DL BUN (test code = 2208) 14 MG/DL CREATININE (test code = 2214) 0.76 MG/DL eGFR (2020 CKD-EPI) (test code 93 ML/MIN/1.73 = 69164) CALC BUN/CREAT (test code = 18 RATIO [...] code = 2219) 89 U/L COMPREHENSIVE METABOLIC [id number] 00:00:00 Test Item Value Reference Range Interpretation Comments GLUCOSE (test code = 2217) 126 MG/DL BUN (test code = 2208) 14 MG/DL CREATININE (test code = 2214) 0.76 MG/DL eGFR (2020 CKD-EPI) (test code 93 ML/MIN/1.73 = 97418) CALC BUN/CREAT (test code = 18 RATIO [...] ALT (test code = 2219) 89 U/L [id number] 00:00:00 Test Item Value Reference Range Interpretation Comments TSH, THIRD GENERATION (test code 2.070 UIU/ML = 2821) [id number] 00:00:00 Test Item Value Reference Range Interpretation Comments TSH, THIRD GENERATION (test code 2.070 UIU/ML = 2821) [id number] 00:00:00 Test Item Value Reference Range Interpretation Comments TSH, THIRD GENERATION (test code 2.070 UIU/ML = 2821) HEMOGLOBIN [id number] 00:00:00 Test Item Value Reference Range Interpretation Comments HEMOGLOBIN A1c (test code = 26187) 5.3 % HEMOGLOBIN [id number] 00:00:00 Test Item Value Reference Range Interpretation Comments HEMOGLOBIN A1c (test code = 06956) 5.3 % HEMOGLOBIN [id number] 00:00:00 Test Item Value Reference Range Interpretation Comments HEMOGLOBIN A1c (test code = 23950) 5.3 % [id number] 00:00:00 Test Item Value Reference Range Interpretation Comments D-DIMER (test code = 1405) <0.27 UG/MLFEU [id number] 00:00:00 Test Item Value Reference Range Interpretation Comments D-DIMER (test code = 1405) <0.27 UG/MLFEU PROTHROMBIN TIME (PT)2021-10-04 00:00:00 Test Item Value Reference Range Interpretation Comments PROTHROMBIN TIME (PT) (test code 14.0 SECONDS = 1402) INR (test code = 16569) 1.0 PROTHROMBIN TIME (PT)2021-10-04 00:00:00 Test Item Value Reference Range Interpretation Comments PROTHROMBIN TIME (PT) (test code 14.0 SECONDS = 1402) INR (test code = 85101) 1.0 COMPREHENSIVE METABOLIC [id number] 00:00:00 Test Item Value Reference Range Interpretation Comments GLUCOSE (test code = 2217) 126 MG/DL BUN (test code = 2208) 14 MG/DL CREATININE (test code = 2214) 0.76 MG/DL eGFR (2020 CKD-EPI) (test code 93 ML/MIN/1.73 = 63994) CALC BUN/CREAT (test code = 18 RATIO [...] code = 2219) 89 U/L COMPREHENSIVE METABOLIC [id number] 00:00:00 Test Item Value Reference Range Interpretation Comments GLUCOSE (test code = 2217) 126 MG/DL BUN (test code = 2208) 14 MG/DL CREATININE (test code = 2214) 0.76 MG/DL eGFR (2020 CKD-EPI) (test code 93 ML/MIN/1.73 = 67498) CALC BUN/CREAT (test code = 18 RATIO [...] ALT (test code = 2219) 89 U/L [id number] 00:00:00 Test Item Value Reference Range Interpretation Comments TSH, THIRD GENERATION (test code 2.070 UIU/ML = 2821) [id number] 00:00:00 Test Item Value Reference Range Interpretation Comments TSH, THIRD GENERATION (test code 2.070 UIU/ML = 2821) [id number] 00:00:00 Test Item Value Reference Range Interpretation Comments TSH, THIRD GENERATION (test code 2.070 UIU/ML = 2821) HEMOGLOBIN [id number] 00:00:00 Test Item Value Reference Range Interpretation Comments HEMOGLOBIN A1c (test code = 17994) 5.3 % HEMOGLOBIN [id number] 00:00:00 Test Item Value Reference Range Interpretation Comments HEMOGLOBIN A1c (test code = 59352) 5.3 % HEMOGLOBIN [id number] 00:00:00 Test Item Value Reference Range Interpretation Comments HEMOGLOBIN A1c (test code = 41029) 5.3 % [id number] 00:00:00 Test Item Value Reference Range Interpretation Comments D-DIMER (test code = 1405) <0.27 UG/MLFEU [id number] 00:00:00 Test Item Value Reference Range Interpretation Comments D-DIMER (test code = 1405) <0.27 UG/MLFEU PROTHROMBIN TIME (PT)2021-10-04 00:00:00 Test Item Value Reference Range Interpretation Comments PROTHROMBIN TIME (PT) (test code 14.0 SECONDS = 1402) INR (test code = 22037) 1.0 PROTHROMBIN TIME (PT)2021-10-04 00:00:00 Test Item Value Reference Range Interpretation Comments PROTHROMBIN TIME (PT) (test code 14.0 SECONDS = 1402) INR (test code = 76031) 1.0 COMPREHENSIVE METABOLIC [id number] 00:00:00 Test Item Value Reference Range Interpretation Comments GLUCOSE (test code = 2217) 126 MG/DL BUN (test code = 2208) 14 MG/DL CREATININE (test code = 2214) 0.76 MG/DL eGFR (2020 CKD-EPI) (test code 93 ML/MIN/1.73 = 28203) CALC BUN/CREAT (test code = 18 RATIO [...] code = 2219) 89 U/L COMPREHENSIVE METABOLIC [id number] 00:00:00 Test Item Value Reference Range Interpretation Comments GLUCOSE (test code = 2217) 126 MG/DL BUN (test code = 2208) 14 MG/DL CREATININE (test code = 2214) 0.76 MG/DL eGFR (2020 CKD-EPI) (test code 93 ML/MIN/1.73 = 22074) CALC BUN/CREAT (test code = 18 RATIO [...] ALT (test code = 2219) 89 U/L [id number] 00:00:00 Test Item Value Reference Range Interpretation Comments TSH, THIRD GENERATION (test code 2.070 UIU/ML = 2821) [id number] 00:00:00 Test Item Value Reference Range Interpretation Comments TSH, THIRD GENERATION (test code 2.070 UIU/ML = 2821) [id number] 00:00:00 Test Item Value Reference Range Interpretation Comments TSH, THIRD GENERATION (test code 2.070 UIU/ML = 2821) HEMOGLOBIN [id number] 00:00:00 Test Item Value Reference Range Interpretation Comments HEMOGLOBIN A1c (test code = 92181) 5.3 % HEMOGLOBIN [id number] 00:00:00 Test Item Value Reference Range Interpretation Comments HEMOGLOBIN A1c (test code = 78077) 5.3 % HEMOGLOBIN [id number] 00:00:00 Test Item Value Reference Range Interpretation Comments HEMOGLOBIN A1c (test code = 37519) 5.3 % [id number] 00:00:00 Test Item Value Reference Range Interpretation Comments D-DIMER (test code = 1405) <0.27 UG/MLFEU [id number] 00:00:00 Test Item Value Reference Range Interpretation Comments D-DIMER (test code = 1405) <0.27 UG/MLFEU PROTHROMBIN TIME (PT)2021-10-04 00:00:00 Test Item Value Reference Range Interpretation Comments PROTHROMBIN TIME (PT) (test code 14.0 SECONDS = 1402) INR (test code = 08231) 1.0 PROTHROMBIN TIME (PT)2021-10-04 00:00:00 Test Item Value Reference Range Interpretation Comments PROTHROMBIN TIME (PT) (test code 14.0 SECONDS = 1402) INR (test code = 07423) 1.0 COMPREHENSIVE METABOLIC [id number] 00:00:00 Test Item Value Reference Range Interpretation Comments GLUCOSE (test code = 2217) 126 MG/DL BUN (test code = 2208) 14 MG/DL CREATININE (test code = 2214) 0.76 MG/DL eGFR (2020 CKD-EPI) (test code 93 ML/MIN/1.73 = 23038) CALC BUN/CREAT (test code = 18 RATIO [...] code = 2219) 89 U/L COMPREHENSIVE METABOLIC [id number] 00:00:00 Test Item Value Reference Range Interpretation Comments GLUCOSE (test code = 2217) 126 MG/DL BUN (test code = 2208) 14 MG/DL CREATININE (test code = 2214) 0.76 MG/DL eGFR (2020 CKD-EPI) (test code 93 ML/MIN/1.73 = 20496) CALC BUN/CREAT (test code = 18 RATIO [...] ALT (test code = 2219) 89 U/L [id number] 00:00:00 Test Item Value Reference Range Interpretation Comments TSH, THIRD GENERATION (test code 2.070 UIU/ML = 2821) [id number] 00:00:00 Test Item Value Reference Range Interpretation Comments TSH, THIRD GENERATION (test code 2.070 UIU/ML = 2821) [id number] 00:00:00 Test Item Value Reference Range Interpretation Comments TSH, THIRD GENERATION (test code 2.070 UIU/ML = 2821) HEMOGLOBIN [id number] 00:00:00 Test Item Value Reference Range Interpretation Comments HEMOGLOBIN A1c (test code = 75704) 5.3 % HEMOGLOBIN [id number] 00:00:00 Test Item Value Reference Range Interpretation Comments HEMOGLOBIN A1c (test code = 02078) 5.3 % HEMOGLOBIN [id number] 00:00:00 Test Item Value Reference Range Interpretation Comments HEMOGLOBIN A1c (test code = 30571) 5.3 % [id number] 00:00:00 Test Item Value Reference Range Interpretation Comments D-DIMER (test code = 1405) <0.27 UG/MLFEU [id number] 00:00:00 Test Item Value Reference Range Interpretation Comments D-DIMER (test code = 1405) <0.27 UG/MLFEU PROTHROMBIN TIME (PT)2021-10-04 00:00:00 Test Item Value Reference Range Interpretation Comments PROTHROMBIN TIME (PT) (test code 14.0 SECONDS = 1402) INR (test code = 53527) 1.0 PROTHROMBIN TIME (PT)2021-10-04 00:00:00 Test Item Value Reference Range Interpretation Comments PROTHROMBIN TIME (PT) (test code 14.0 SECONDS = 1402) INR (test code = 80455) 1.0 COMPREHENSIVE METABOLIC [id number] 00:00:00 Test Item Value Reference Range Interpretation Comments GLUCOSE (test code = 2217) 126 MG/DL BUN (test code = 2208) 14 MG/DL CREATININE (test code = 2214) 0.76 MG/DL eGFR (2020 CKD-EPI) (test code 93 ML/MIN/1.73 = 25801) CALC BUN/CREAT (test code = 18 RATIO [...] code = 2219) 89 U/L COMPREHENSIVE METABOLIC [id number] 00:00:00 Test Item Value Reference Range Interpretation Comments GLUCOSE (test code = 2217) 126 MG/DL BUN (test code = 2208) 14 MG/DL CREATININE (test code = 2214) 0.76 MG/DL eGFR (2020 CKD-EPI) (test code 93 ML/MIN/1.73 = 69699) CALC BUN/CREAT (test code = 18 RATIO 2235) SODIUM (test code = 2231) 140 MEQ/L POTASSIUM (test code = 2228) 4.1 MEQ/L CHLORIDE (test code = 2215) 107 MEQ/L CARBON DIOXIDE (test code = 24 MEQ/L 220) CALCIUM (test code = 2209) 10.8 MG/DL PROTEIN, TOTAL (test code = 6.5 G/DL 9) ALBUMIN (test code = 2201) 4.0 G/DL CALC GLOBULIN (test code = 2.5 G/DL 2240) CALC A/G RATIO (test code = 1.6 RATIO 2234) BILIRUBIN, TOTAL (test code = 0.9 MG/DL 2207) ALKALINE PHOSPHATASE (test 116 U/L code = 2204) AST (test code = 2218) 31 U/L ALT (test code = 2219) 89 U/L [id number] 00:00:00 Test Item Value Reference Range Interpretation Comments TSH, THIRD GENERATION (test code 2.070 UIU/ML = 2821) [id number] 00:00:00 Test Item Value Reference Range Interpretation Comments TSH, THIRD GENERATION (test code 2.070 UIU/ML = 2821) [id number] 00:00:00 Test Item Value Reference Range Interpretation Comments TSH, THIRD GENERATION (test code 2.070 UIU/ML = 2821) HEMOGLOBIN [id number] 00:00:00 Test Item Value Reference Range Interpretation Comments HEMOGLOBIN A1c (test code = 27356) 5.3 % HEMOGLOBIN [id number] 00:00:00 Test Item Value Reference Range Interpretation Comments HEMOGLOBIN A1c (test code = 49257) 5.3 % HEMOGLOBIN [id number] 00:00:00 Test Item Value Reference Range Interpretation Comments HEMOGLOBIN A1c (test code = 37714) 5.3 % [id number] 00:00:00 Test Item Value Reference Range Interpretation Comments D-DIMER (test code = 1405) <0.27 UG/MLFEU [id number] 00:00:00 Test Item Value Reference Range Interpretation Comments D-DIMER (test code = 1405) <0.27 UG/MLFEU PROTHROMBIN TIME (PT)2021-10-04 00:00:00 Test Item Value Reference Range Interpretation Comments PROTHROMBIN TIME (PT) (test code 14.0 SECONDS = 1402) INR (test code = 47363) 1.0 PROTHROMBIN TIME (PT)2021-10-04 00:00:00 Test Item Value Reference Range Interpretation Comments PROTHROMBIN TIME (PT) (test code 14.0 SECONDS = 1402) INR (test code = 89150) 1.0 COMPREHENSIVE METABOLIC [id number] 00:00:00 Test Item Value Reference Range Interpretation Comments GLUCOSE (test code = 2217) 126 MG/DL BUN (test code = 2208) 14 MG/DL CREATININE (test code = 2214) 0.76 MG/DL eGFR (2020 CKD-EPI) (test code 93 ML/MIN/1.73 = 82401) CALC BUN/CREAT (test code = 18 RATIO [...] code = 2219) 89 U/L COMPREHENSIVE METABOLIC [id number] 00:00:00 Test Item Value Reference Range Interpretation Comments GLUCOSE (test code = 2217) 126 MG/DL BUN (test code = 2208) 14 MG/DL CREATININE (test code = 2214) 0.76 MG/DL eGFR (2020 CKD-EPI) (test code 93 ML/MIN/1.73 = 24559) CALC BUN/CREAT (test code = 18 RATIO [...] ALT (test code = 2219) 89 U/L [id number] 00:00:00 Test Item Value Reference Range Interpretation Comments TSH, THIRD GENERATION (test code 2.070 UIU/ML = 2821) [id number] 00:00:00 Test Item Value Reference Range Interpretation Comments TSH, THIRD GENERATION (test code 2.070 UIU/ML = 2821) [id number] 00:00:00 Test Item Value Reference Range Interpretation Comments TSH, THIRD GENERATION (test code 2.070 UIU/ML = 2821) HEMOGLOBIN [id number] 00:00:00 Test Item Value Reference Range Interpretation Comments HEMOGLOBIN A1c (test code = 35223) 5.3 % HEMOGLOBIN [id number] 00:00:00 Test Item Value Reference Range Interpretation Comments HEMOGLOBIN A1c (test code = 95240) 5.3 % HEMOGLOBIN [id number] 00:00:00 Test Item Value Reference Range Interpretation Comments HEMOGLOBIN A1c (test code = 09819) 5.3 % [id number] 00:00:00 Test Item Value Reference Range Interpretation Comments D-DIMER (test code = 1405) <0.27 UG/MLFEU [id number] 00:00:00 Test Item Value Reference Range Interpretation Comments D-DIMER (test code = 1405) <0.27 UG/MLFEU PROTHROMBIN TIME (PT)2021-10-04 00:00:00 Test Item Value Reference Range Interpretation Comments PROTHROMBIN TIME (PT) (test code 14.0 SECONDS = 1402) INR (test code = 15302) 1.0 PROTHROMBIN TIME (PT)2021-10-04 00:00:00 Test Item Value Reference Range Interpretation Comments PROTHROMBIN TIME (PT) (test code 14.0 SECONDS = 1402) INR (test code = 18941) 1.0 COMPREHENSIVE METABOLIC [id number] 00:00:00 Test Item Value Reference Range Interpretation Comments GLUCOSE (test code = 2217) 126 MG/DL BUN (test code = 2208) 14 MG/DL CREATININE (test code = 2214) 0.76 MG/DL eGFR (2020 CKD-EPI) (test code 93 ML/MIN/1.73 = 52667) CALC BUN/CREAT (test code = 18 RATIO [...] code = 2219) 89 U/L COMPREHENSIVE METABOLIC [id number] 00:00:00 Test Item Value Reference Range Interpretation Comments GLUCOSE (test code = 2217) 126 MG/DL BUN (test code = 2208) 14 MG/DL CREATININE (test code = 2214) 0.76 MG/DL eGFR (2020 CKD-EPI) (test code 93 ML/MIN/1.73 = 41776) CALC BUN/CREAT (test code = 18 RATIO [...] 2219) 89 U/L CBC W/AUTO DIFF WITH [id number] 03:31:03 Test Item Value Reference Range Interpretation [...] RBCS 0.00 K/UL 0.00-0.11 (test code = 46088) COMPREHENSIVE METABOLIC [id number] 03:15:48 Test Item Value Reference Range Interpretation Comments GLUCOSE (test code = 100 MG/DL 70-99 H 2216) BUN (test code = 13 MG/DL 6-20 2207) CREATININE (test 0.63 MG/DL 0.60-1.30 code = 221) eGFR (2020 CKD-EPI) 105 >60 (test code = 34079) ML/MIN/1.73 CALC BUN/CREAT (test 21 RATIO 6-28 code = 2235) SODIUM (test code = 141 MEQ/L 566-710 2832) POTASSIUM (test code 4.5 MEQ/L 3.5-5.4 = 2227) CHLORIDE (test code 109 MEQ/L 95-107 H = 2214) CARBON DIOXIDE (test 23 MEQ/L 19-31 code = 220) CALCIUM (test code = 11.1 MG/DL 8.5-10.5 H 2208) PROTEIN, TOTAL (test 7.0 G/DL 6.1-8.3 code = 2228) ALBUMIN (test code = 4.0 G/DL 3.5-5.2 2200) CALC GLOBULIN (test 3.0 G/DL 1.9-3.7 code = 2239) CALC A/G RATIO (test 1.3 RATIO 1.0-2.6 code = 2233) BILIRUBIN, TOTAL 0.6 MG/DL See_Comment [Automated message] (test code = 2206) The syste m which generated this result transmitted ref erence range: <=1.2. T he reference range was not used to int erpret this result as normal/abnormal . ALKALINE PHOSPHATASE 99 U/L 40-133 (test code = 2203) AST (test code = 23 U/L 9-40 2217) ALT (test code = 33 U/L 5-40 UNLESS OTH ERWISE 2218) INDICATED, ALL TESTING PERFORM ED [facility], [facility]. [address] [place] [id number] [place] [address] DIRECTOR: TANNER VELASQUEZ M.D. CLIA NUMBER [id number] CAP ACCREDITATION N O. [id number] CBC W/AUTO [id number] 00:00:00 Test Item Value Reference Range Interpretation [...] NUCLEATED RBCS (test code = 0.00 K/UL 63354) COMPREHENSIVE METABOLIC [id number] 00:00:00 Test Item Value Reference Range Interpretation Comments GLUCOSE (test code = 2217) 100 MG/DL BUN (test code = 2208) 13 MG/DL CREATININE (test code = 2214) 0.63 MG/DL eGFR (2020 CKD-EPI) (test 105 ML/MIN/1.73 code = 98463) CALC BUN/CREAT (test code = 21 RATIO [...] code = 2219) 33 U/L COMPREHENSIVE METABOLIC [id number] 00:00:00 Test Item Value Reference Range Interpretation Comments GLUCOSE (test code = 2217) 100 MG/DL BUN (test code = 2208) 13 MG/DL CREATININE (test code = 2214) 0.63 MG/DL eGFR (2020 CKD-EPI) (test 105 ML/MIN/1.73 code = 70221) CALC BUN/CREAT (test code = 21 RATIO [...] code = 2219) 33 U/L COMPREHENSIVE METABOLIC [id number] 00:00:00 Test Item Value Reference Range Interpretation Comments GLUCOSE (test code = 2217) 100 MG/DL BUN (test code = 2208) 13 MG/DL CREATININE (test code = 2214) 0.63 MG/DL eGFR (2020 CKD-EPI) (test 105 ML/MIN/1.73 code = 35121) CALC BUN/CREAT (test code = 21 RATIO [...] code = 2219) 33 U/L CBC W/AUTO [id number] 00:00:00 Test Item Value Reference Range Interpretation [...] NUCLEATED RBCS (test code = 0.00 K/UL 03539) CBC W/AUTO [id number] 00:00:00 Test Item Value Reference Range Interpretation [...] NUCLEATED RBCS (test code = 0.00 K/UL 42677) CBC W/AUTO [id number] 00:00:00 Test Item Value Reference Range Interpretation [...] NUCLEATED RBCS (test code = 0.00 K/UL 23231) COMPREHENSIVE METABOLIC [id number] 00:00:00 Test Item Value Reference Range Interpretation Comments GLUCOSE (test code = 2217) 100 MG/DL BUN (test code = 2208) 13 MG/DL CREATININE (test code = 2214) 0.63 MG/DL eGFR (2020 CKD-EPI) (test 105 ML/MIN/1.73 code = 09922) CALC BUN/CREAT (test code = 21 RATIO [...] code = 2219) 33 U/L COMPREHENSIVE METABOLIC [id number] 00:00:00 Test Item Value Reference Range Interpretation Comments GLUCOSE (test code = 2217) 100 MG/DL BUN (test code = 2208) 13 MG/DL CREATININE (test code = 2214) 0.63 MG/DL eGFR (2020 CKD-EPI) (test 105 ML/MIN/1.73 code = 66028) CALC BUN/CREAT (test code = 21 RATIO [...] code = 2219) 33 U/L CBC W/AUTO [id number] 00:00:00 Test Item Value Reference Range Interpretation [...] NUCLEATED RBCS (test code = 0.00 K/UL 21227) CBC W/AUTO [id number] 00:00:00 Test Item Value Reference Range Interpretation [...] NUCLEATED RBCS (test code = 0.00 K/UL 43313) CBC W/AUTO [id number] 00:00:00 Test Item Value Reference Range Interpretation [...] NUCLEATED RBCS (test code = 0.00 K/UL 61476) COMPREHENSIVE METABOLIC [id number] 00:00:00 Test Item Value Reference Range Interpretation Comments GLUCOSE (test code = 2217) 100 MG/DL BUN (test code = 2208) 13 MG/DL CREATININE (test code = 2214) 0.63 MG/DL eGFR (2020 CKD-EPI) (test 105 ML/MIN/1.73 code = 61689) CALC BUN/CREAT (test code = 21 RATIO [...] code = 2219) 33 U/L COMPREHENSIVE METABOLIC [id number] 00:00:00 Test Item Value Reference Range Interpretation Comments GLUCOSE (test code = 2217) 100 MG/DL BUN (test code = 2208) 13 MG/DL CREATININE (test code = 2214) 0.63 MG/DL eGFR (2020 CKD-EPI) (test 105 ML/MIN/1.73 code = 51977) CALC BUN/CREAT (test code = 21 RATIO [...] ALT (test code = 221) 33 U/L CBC W/AUTO [id number] 00:00:00 Test Item Value Reference Range Interpretation [...] NUCLEATED RBCS (test code = 0.00 K/UL 01048) CBC W/AUTO [id number] 00:00:00 Test Item Value Reference Range Interpretation [...] NUCLEATED RBCS (test code = 0.00 K/UL 73764) CBC W/AUTO [id number] 00:00:00 Test Item Value Reference Range Interpretation [...] NUCLEATED RBCS (test code = 0.00 K/UL 81454) COMPREHENSIVE METABOLIC [id number] 00:00:00 Test Item Value Reference Range Interpretation Comments GLUCOSE (test code = 2217) 100 MG/DL BUN (test code = 2208) 13 MG/DL CREATININE (test code = 2214) 0.63 MG/DL eGFR (2020 CKD-EPI) (test 105 ML/MIN/1.73 code = 29585) CALC BUN/CREAT (test code = 21 RATIO [...] code = 2219) 33 U/L COMPREHENSIVE METABOLIC [id number] 00:00:00 Test Item Value Reference Range Interpretation Comments GLUCOSE (test code = 2217) 100 MG/DL BUN (test code = 2208) 13 MG/DL CREATININE (test code = 2214) 0.63 MG/DL eGFR (2020 CKD-EPI) (test 105 ML/MIN/1.73 code = 23482) CALC BUN/CREAT (test code = 21 RATIO [...] code = 2219) 33 U/L CBC W/AUTO [id number] 00:00:00 Test Item Value Reference Range Interpretation [...] NUCLEATED RBCS (test code = 0.00 K/UL 89284) CBC W/AUTO [id number] 00:00:00 Test Item Value Reference Range Interpretation [...] NUCLEATED RBCS (test code = 0.00 K/UL 25428) CBC W/AUTO [id number] 00:00:00 Test Item Value Reference Range Interpretation [...] NUCLEATED RBCS (test code = 0.00 K/UL 53780) COMPREHENSIVE METABOLIC [id number] 00:00:00 Test Item Value Reference Range Interpretation Comments GLUCOSE (test code = 2217) 100 MG/DL BUN (test code = 2208) 13 MG/DL CREATININE (test code = 2214) 0.63 MG/DL eGFR (2020 CKD-EPI) (test 105 ML/MIN/1.73 code = 89629) CALC BUN/CREAT (test code = 21 RATIO [...] code = 2219) 33 U/L COMPREHENSIVE METABOLIC [id number] 00:00:00 Test Item Value Reference Range Interpretation Comments GLUCOSE (test code = 2217) 100 MG/DL BUN (test code = 2208) 13 MG/DL CREATININE (test code = 2214) 0.63 MG/DL eGFR (2020 CKD-EPI) (test 105 ML/MIN/1.73 code = 12638) CALC BUN/CREAT (test code = 21 RATIO [...] code = 2219) 33 U/L CBC W/AUTO [id number] 00:00:00 Test Item Value Reference Range Interpretation [...] NUCLEATED RBCS (test code = 0.00 K/UL 75150) CBC W/AUTO [id number] 00:00:00 Test Item Value Reference Range Interpretation [...] NUCLEATED RBCS (test code = 0.00 K/UL 38759) CBC W/AUTO [id number] 00:00:00 Test Item Value Reference Range Interpretation [...] NUCLEATED RBCS (test code = 0.00 K/UL 63136) COMPREHENSIVE METABOLIC [id number] 00:00:00 Test Item Value Reference Range Interpretation Comments GLUCOSE (test code = 2217) 100 MG/DL BUN (test code = 2208) 13 MG/DL CREATININE (test code = 2214) 0.63 MG/DL eGFR (2020 CKD-EPI) (test 105 ML/MIN/1.73 code = 71683) CALC BUN/CREAT (test code = 21 RATIO [...] code = 2219) 33 U/L COMPREHENSIVE METABOLIC [id number] 00:00:00 Test Item Value Reference Range Interpretation Comments GLUCOSE (test code = 2217) 100 MG/DL BUN (test code = 2208) 13 MG/DL CREATININE (test code = 2214) 0.63 MG/DL eGFR (2020 CKD-EPI) (test 105 ML/MIN/1.73 code = 59453) CALC BUN/CREAT (test code = 21 RATIO [...] code = 2219) 33 U/L CBC W/AUTO [id number] 00:00:00 Test Item Value Reference Range Interpretation [...] NUCLEATED RBCS (test code = 0.00 K/UL 93330) CBC W/AUTO [id number] 00:00:00 Test Item Value Reference Range Interpretation [...] NUCLEATED RBCS (test code = 0.00 K/UL 27603) CBC W/AUTO [id number] 00:00:00 Test Item Value Reference Range Interpretation [...] NUCLEATED RBCS (test code = 0.00 K/UL 85344) COMPREHENSIVE METABOLIC [id number] 00:00:00 Test Item Value Reference Range Interpretation Comments GLUCOSE (test code = 2217) 100 MG/DL BUN (test code = 2208) 13 MG/DL CREATININE (test code = 2214) 0.63 MG/DL eGFR (2020 CKD-EPI) (test 105 ML/MIN/1.73 code = 88532) CALC BUN/CREAT (test code = 21 RATIO [...] code = 2219) 33 U/L COMPREHENSIVE METABOLIC [id number] 00:00:00 Test Item Value Reference Range Interpretation Comments GLUCOSE (test code = 2217) 100 MG/DL BUN (test code = 2208) 13 MG/DL CREATININE (test code = 2214) 0.63 MG/DL eGFR (2020 CKD-EPI) (test 105 ML/MIN/1.73 code = 21354) CALC BUN/CREAT (test code = 21 RATIO [...] code = 2219) 33 U/L CBC W/AUTO [id number] 00:00:00 Test Item Value Reference Range Interpretation [...] NUCLEATED RBCS (test code = 0.00 K/UL 14478) CBC W/AUTO [id number] 00:00:00 Test Item Value Reference Range Interpretation [...] NUCLEATED RBCS (test code = 0.00 K/UL 23279) CBC W/AUTO [id number] 00:00:00 Test Item Value Reference Range Interpretation [...] NUCLEATED RBCS (test code = 0.00 K/UL 50158) COMPREHENSIVE METABOLIC [id number] 00:00:00 Test Item Value Reference Range Interpretation Comments GLUCOSE (test code = 2217) 100 MG/DL BUN (test code = 2208) 13 MG/DL CREATININE (test code = 2214) 0.63 MG/DL eGFR (2020 CKD-EPI) (test 105 ML/MIN/1.73 code = 07350) CALC BUN/CREAT (test code = 21 RATIO [...] code = 2219) 33 U/L COMPREHENSIVE METABOLIC [id number] 00:00:00 Test Item Value Reference Range Interpretation Comments GLUCOSE (test code = 2217) 100 MG/DL BUN (test code = 2208) 13 MG/DL CREATININE (test code = 2214) 0.63 MG/DL eGFR (2020 CKD-EPI) (test 105 ML/MIN/1.73 code = 18893) CALC BUN/CREAT (test code = 21 RATIO [...] code = 2219) 33 U/L CBC W/AUTO [id number] 00:00:00 Test Item Value Reference Range Interpretation [...] NUCLEATED RBCS (test code = 0.00 K/UL 71011) CBC W/AUTO [id number] 00:00:00 Test Item Value Reference Range Interpretation [...] NUCLEATED RBCS (test code = 0.00 K/UL 37220) CBC W/AUTO [id number] 00:00:00 Test Item Value Reference Range Interpretation [...] NUCLEATED RBCS (test code = 0.00 K/UL 69139) COMPREHENSIVE METABOLIC [id number] 00:00:00 Test Item Value Reference Range Interpretation Comments GLUCOSE (test code = 2217) 100 MG/DL BUN (test code = 2208) 13 MG/DL CREATININE (test code = 2214) 0.63 MG/DL eGFR (2020 CKD-EPI) (test 105 ML/MIN/1.73 code = 26861) CALC BUN/CREAT (test code = 21 RATIO [...] code = 2219) 33 U/L COMPREHENSIVE METABOLIC [id number] 00:00:00 Test Item Value Reference Range Interpretation Comments GLUCOSE (test code = 2217) 100 MG/DL BUN (test code = 2208) 13 MG/DL CREATININE (test code = 2214) 0.63 MG/DL eGFR (2020 CKD-EPI) (test 105 ML/MIN/1.73 code = 66484) CALC BUN/CREAT (test code = 21 RATIO [...] code = 2219) 33 U/L CBC W/AUTO [id number] 00:00:00 Test Item Value Reference Range Interpretation [...] NUCLEATED RBCS (test code = 0.00 K/UL 12499) CBC W/AUTO [id number] 00:00:00 Test Item Value Reference Range Interpretation [...] NUCLEATED RBCS (test code = 0.00 K/UL 71454) CBC W/AUTO [id number] 00:00:00 Test Item Value Reference Range Interpretation [...] NUCLEATED RBCS (test code = 0.00 K/UL 22310) COMPREHENSIVE METABOLIC [id number] 00:00:00 Test Item Value Reference Range Interpretation Comments GLUCOSE (test code = 2217) 100 MG/DL BUN (test code = 2208) 13 MG/DL CREATININE (test code = 2214) 0.63 MG/DL eGFR (2020 CKD-EPI) (test 105 ML/MIN/1.73 code = 84452) CALC BUN/CREAT (test code = 21 RATIO [...] code = 2219) 33 U/L COMPREHENSIVE METABOLIC [id number] 00:00:00 Test Item Value Reference Range Interpretation Comments GLUCOSE (test code = 2217) 100 MG/DL BUN (test code = 2208) 13 MG/DL CREATININE (test code = 2214) 0.63 MG/DL eGFR (2020 CKD-EPI) (test 105 ML/MIN/1.73 code = 17004) CALC BUN/CREAT (test code = 21 RATIO [...] code = 2219) 33 U/L CBC W/AUTO [id number] 00:00:00 Test Item Value Reference Range Interpretation [...] NUCLEATED RBCS (test code = 0.00 K/UL 91656) CBC W/AUTO [id number] 00:00:00 Test Item Value Reference Range Interpretation [...] NUCLEATED RBCS (test code = 0.00 K/UL 89470) CBC W/AUTO [id number] 00:00:00 Test Item Value Reference Range Interpretation [...] NUCLEATED RBCS (test code = 0.00 K/UL 31914) COMPREHENSIVE METABOLIC [id number] 00:00:00 Test Item Value Reference Range Interpretation Comments GLUCOSE (test code = 2217) 100 MG/DL BUN (test code = 2208) 13 MG/DL CREATININE (test code = 2214) 0.63 MG/DL eGFR (2020 CKD-EPI) (test 105 ML/MIN/1.73 code = 63070) CALC BUN/CREAT (test code = 21 RATIO [...] code = 2219) 33 U/L COMPREHENSIVE METABOLIC [id number] 00:00:00 Test Item Value Reference Range Interpretation Comments GLUCOSE (test code = 2217) 100 MG/DL BUN (test code = 2208) 13 MG/DL CREATININE (test code = 2214) 0.63 MG/DL eGFR (2020 CKD-EPI) (test 105 ML/MIN/1.73 code = 55774) CALC BUN/CREAT (test code = 21 RATIO [...] code = 2219) 33 U/L CBC W/AUTO [id number] 00:00:00 Test Item Value Reference Range Interpretation [...] NUCLEATED RBCS (test code = 0.00 K/UL 90777) CBC W/AUTO [id number] 00:00:00 Test Item Value Reference Range Interpretation [...] NUCLEATED RBCS (test code = 0.00 K/UL 46208) CBC W/AUTO [id number] 00:00:00 Test Item Value Reference Range Interpretation [...] NUCLEATED RBCS (test code = 0.00 K/UL 35420) CBC W/AUTO [id number] 00:00:00 Test Item Value Reference Range Interpretation [...] NUCLEATED RBCS (test code = 0.00 K/UL 03291) CALCIUM, [id number] 11:34:01 Test Item Value Reference Range Interpretation Comments CALCIUM, IONIZED (test code = 6.01 MG/DL 4.70-5.90 H ) INTACT [id number] 08:00:45 Test Item Value Reference Range Interpretation Comments INTACT PTH (test code = 5005) 143 PG/ML 15-65 H TSH, THIRD [id number] 06:20:18 Test Item Value Reference Range Interpretation Comments TSH, THIRD GENERATION (test code 3.840 UIU/ML 0.400-4.100 = 2821) [id number] 04:33:24 Test Item Value Reference Range Interpretation Comments LITHIUM (test code 0.54 MEQ/L 0.60-1.20 L UNLESS O THERWISE = 2038) INDICATED, ALL TESTING PERFORMED ATCLI NICAL PATHOLOGY [facility], [facility]. [address] [place] [address] 4 LABORATORY DIRE CTOR: TANNER HOPKINS M.D. CLIA NUMBER [id number] [place] [id number] COMPREHENSIVE METABOLIC [id number] 04:08:07 Test Item Value Reference Range Interpretation Comments GLUCOSE (test code = 90 MG/DL 70-99 2216) BUN (test code = 13 MG/DL 6-20 2207) CREATININE (test 0.74 MG/DL 0.60-1.30 code = 2214) eGFR (2020 CKD-EPI) 97 ML/MIN/1.73 >60 (test code = 37009) CALC BUN/CREAT (test 18 RATIO 6-28 code = 2235) SODIUM (test code = 142 MEQ/L 851-876 4395) POTASSIUM (test code 5.0 MEQ/L 3.5-5.4 = 2227) CHLORIDE (test code 107 MEQ/L 95-107 = 221) CARBON DIOXIDE (test 22 MEQ/L 19-31 code = 2206) CALCIUM (test code = 11.0 MG/DL 8.5-10.5 H 2208) PROTEIN, TOTAL (test 6.7 G/DL 6.1-8.3 code = 222) ALBUMIN (test code = 4.2 G/DL 3.5-5.2 [...] PHOSPHATASE 94 U/L 40-133 (test code = 2204) AST (test code = 24 U/L 9-40 2217) ALT (test code = 38 U/L 5-40 2218) LIPID [id number] 04:08:07 Test Item Value Reference Range Interpretation [...] MOREINFORMATION , SEE CLIENT ANNOUNCE MENT AT [email or web address] /CalcLDL-C RISK RATIO LDL/HDL 2.37 RATIO <3.22 (test code = 2238) COMPREHENSIVE METABOLIC [id number] 00:00:00 Test Item Value Reference Range Interpretation Comments GLUCOSE (test code = 2217) 90 MG/DL BUN (test code = 2208) 13 MG/DL CREATININE (test code = 2214) 0.74 MG/DL eGFR (2020 CKD-EPI) (test code 97 ML/MIN/1.73 = 55179) CALC BUN/CREAT (test code = 18 RATIO [...] ALT (test code = 2219) 38 U/L [id number] 00:00:00 Test Item Value Reference Range Interpretation Comments TSH, THIRD GENERATION (test code 3.840 UIU/ML = 2821) COMPREHENSIVE METABOLIC [id number] 00:00:00 Test Item Value Reference Range Interpretation Comments GLUCOSE (test code = 2217) 90 MG/DL BUN (test code = 2208) 13 MG/DL CREATININE (test code = 2214) 0.74 MG/DL eGFR (2020 CKD-EPI) (test code 97 ML/MIN/1.73 = 50982) CALC BUN/CREAT (test code = 18 RATIO [...] code = 2219) 38 U/L COMPREHENSIVE METABOLIC [id number] 00:00:00 Test Item Value Reference Range Interpretation Comments GLUCOSE (test code = 2217) 90 MG/DL BUN (test code = 2208) 13 MG/DL CREATININE (test code = 2214) 0.74 MG/DL eGFR (2020 CKD-EPI) (test code 97 ML/MIN/1.73 = 61696) CALC BUN/CREAT (test code = 18 RATIO [...] (test code = 2219) 38 U/L LIPID [id number] 00:00:00 Test Item Value Reference Range Interpretation Comments CHOLESTEROL (test code = 2210) 123 MG/DL TRIGLYCERIDES (test code = 2232) 137 MG/DL HDL CHOLESTEROL (test code = 2220) 30 MG/DL CALC LDL CHOL (test code = 2237) 71 MG/DL RISK RATIO LDL/HDL (test code = 2.37 RATIO 2238) LIPID [id number] 00:00:00 Test Item Value Reference Range Interpretation Comments CHOLESTEROL (test code = 2210) 123 MG/DL TRIGLYCERIDES (test code = 2232) 137 MG/DL HDL CHOLESTEROL (test code = 2220) 30 MG/DL CALC LDL CHOL (test code = 2237) 71 MG/DL RISK RATIO LDL/HDL (test code = 2.37 RATIO 2238) INTACT [id number] 00:00:00 Test Item Value Reference Range Interpretation Comments INTACT PTH (test code = 5005) 143 PG/ML INTACT [id number] 00:00:00 Test Item Value Reference Range Interpretation Comments INTACT PTH (test code = 5005) 143 PG/ML INTACT [id number] 00:00:00 Test Item Value Reference Range Interpretation Comments INTACT PTH (test code = 5005) 143 PG/ML IONIZED CALCIUM, [id number] 00:00:00 Test Item Value Reference Range Interpretation Comments CALCIUM, IONIZED (test code = 6.01 MG/DL 86590) IONIZED CALCIUM, [id number] 00:00:00 Test Item Value Reference Range Interpretation Comments CALCIUM, IONIZED (test code = 6.01 MG/DL 60625) [id number] 00:00:00 Test Item Value Reference Range Interpretation Comments LITHIUM (test code = 2038) 0.54 MEQ/L [id number] 00:00:00 Test Item Value Reference Range Interpretation Comments LITHIUM (test code = 2038) 0.54 MEQ/L [id number] 00:00:00 Test Item Value Reference Range Interpretation Comments LITHIUM (test code = 2038) 0.54 MEQ/L LIPID [id number] 00:00:00 Test Item Value Reference Range Interpretation Comments CHOLESTEROL (test code = 2210) 123 MG/DL TRIGLYCERIDES (test code = 2232) 137 MG/DL HDL CHOLESTEROL (test code = 2220) 30 MG/DL CALC LDL CHOL (test code = 2237) 71 MG/DL RISK RATIO LDL/HDL (test code = 2.37 RATIO 8) INTACT [id number] 00:00:00 Test Item Value Reference Range Interpretation Comments INTACT PTH (test code = 5005) 143 PG/ML INTACT [id number] 00:00:00 Test Item Value Reference Range Interpretation Comments INTACT PTH (test code = 5005) 143 PG/ML IONIZED CALCIUM, [id number] 00:00:00 Test Item Value Reference Range Interpretation Comments CALCIUM, IONIZED (test code = 6.01 MG/DL 66433) [id number] 00:00:00 Test Item Value Reference Range Interpretation Comments TSH, THIRD GENERATION (test code 3.840 UIU/ML = 2821) [id number] 00:00:00 Test Item Value Reference Range Interpretation Comments LITHIUM (test code = 2038) 0.54 MEQ/L [id number] 00:00:00 Test Item Value Reference Range Interpretation Comments LITHIUM (test code = 2038) 0.54 MEQ/L [id number] 00:00:00 Test Item Value Reference Range Interpretation Comments TSH, THIRD GENERATION (test code 3.840 UIU/ML = 2821) [id number] 00:00:00 Test Item Value Reference Range Interpretation Comments TSH, THIRD GENERATION (test code 3.840 UIU/ML = 2821) COMPREHENSIVE METABOLIC [id number] 00:00:00 Test Item Value Reference Range Interpretation Comments GLUCOSE (test code = 2217) 90 MG/DL BUN (test code = 2208) 13 MG/DL CREATININE (test code = 2214) 0.74 MG/DL eGFR (2020 CKD-EPI) (test code 97 ML/MIN/1.73 = 48774) CALC BUN/CREAT (test code = 18 RATIO [...] code = 2219) 38 U/L COMPREHENSIVE METABOLIC [id number] 00:00:00 Test Item Value Reference Range Interpretation Comments GLUCOSE (test code = 2217) 90 MG/DL BUN (test code = 2208) 13 MG/DL CREATININE (test code = 2214) 0.74 MG/DL eGFR (2020 CKD-EPI) (test code 97 ML/MIN/1.73 = 97925) CALC BUN/CREAT (test code = 18 RATIO [...] (test code = 2219) 38 U/L LIPID [id number] 00:00:00 Test Item Value Reference Range Interpretation Comments CHOLESTEROL (test code = 2210) 123 MG/DL TRIGLYCERIDES (test code = 2232) 137 MG/DL HDL CHOLESTEROL (test code = 2220) 30 MG/DL CALC LDL CHOL (test code = 2237) 71 MG/DL RISK RATIO LDL/HDL (test code = 2.37 RATIO 2238) LIPID [id number] 00:00:00 Test Item Value Reference Range Interpretation Comments CHOLESTEROL (test code = 2210) 123 MG/DL TRIGLYCERIDES (test code = 2232) 137 MG/DL HDL CHOLESTEROL (test code = 2220) 30 MG/DL CALC LDL CHOL (test code = 2237) 71 MG/DL RISK RATIO LDL/HDL (test code = 2.37 RATIO 2238) INTACT [id number] 00:00:00 Test Item Value Reference Range Interpretation Comments INTACT PTH (test code = 5005) 143 PG/ML INTACT [id number] 00:00:00 Test Item Value Reference Range Interpretation Comments INTACT PTH (test code = 5005) 143 PG/ML INTACT [id number] 00:00:00 Test Item Value Reference Range Interpretation Comments INTACT PTH (test code = 5005) 143 PG/ML IONIZED CALCIUM, [id number] 00:00:00 Test Item Value Reference Range Interpretation Comments CALCIUM, IONIZED (test code = 6.01 MG/DL 96314) IONIZED CALCIUM, [id number] 00:00:00 Test Item Value Reference Range Interpretation Comments CALCIUM, IONIZED (test code = 6.01 MG/DL 92751) [id number] 00:00:00 Test Item Value Reference Range Interpretation Comments LITHIUM (test code = 2039) 0.54 MEQ/L [id number] 00:00:00 Test Item Value Reference Range Interpretation Comments LITHIUM (test code = 2039) 0.54 MEQ/L [id number] 00:00:00 Test Item Value Reference Range Interpretation Comments LITHIUM (test code = 203) 0.54 MEQ/L [id number] 00:00:00 Test Item Value Reference Range Interpretation Comments TSH, THIRD GENERATION (test code 3.840 UIU/ML = 2821) [id number] 00:00:00 Test Item Value Reference Range Interpretation Comments TSH, THIRD GENERATION (test code 3.840 UIU/ML = 2821) [id number] 00:00:00 Test Item Value Reference Range Interpretation Comments TSH, THIRD GENERATION (test code 3.840 UIU/ML = 2821) COMPREHENSIVE METABOLIC [id number] 00:00:00 Test Item Value Reference Range Interpretation Comments GLUCOSE (test code = 2217) 90 MG/DL BUN (test code = 2208) 13 MG/DL CREATININE (test code = 2214) 0.74 MG/DL eGFR (2020 CKD-EPI) (test code 97 ML/MIN/1.73 = 36409) CALC BUN/CREAT (test code = 18 RATIO [...] code = 2219) 38 U/L COMPREHENSIVE METABOLIC [id number] 00:00:00 Test Item Value Reference Range Interpretation Comments GLUCOSE (test code = 2217) 90 MG/DL BUN (test code = 2208) 13 MG/DL CREATININE (test code = 2214) 0.74 MG/DL eGFR (2020 CKD-EPI) (test code 97 ML/MIN/1.73 = 94876) CALC BUN/CREAT (test code = 18 RATIO [...] (test code = 2219) 38 U/L LIPID [id number] 00:00:00 Test Item Value Reference Range Interpretation Comments CHOLESTEROL (test code = 2210) 123 MG/DL TRIGLYCERIDES (test code = 2232) 137 MG/DL HDL CHOLESTEROL (test code = 2220) 30 MG/DL CALC LDL CHOL (test code = 2237) 71 MG/DL RISK RATIO LDL/HDL (test code = 2.37 RATIO 2238) LIPID [id number] 00:00:00 Test Item Value Reference Range Interpretation Comments CHOLESTEROL (test code = 2210) 123 MG/DL TRIGLYCERIDES (test code = 2232) 137 MG/DL HDL CHOLESTEROL (test code = 2220) 30 MG/DL CALC LDL CHOL (test code = 2237) 71 MG/DL RISK RATIO LDL/HDL (test code = 2.37 RATIO 2238) INTACT [id number] 00:00:00 Test Item Value Reference Range Interpretation Comments INTACT PTH (test code = 5005) 143 PG/ML INTACT [id number] 00:00:00 Test Item Value Reference Range Interpretation Comments INTACT PTH (test code = 5005) 143 PG/ML INTACT [id number] 00:00:00 Test Item Value Reference Range Interpretation Comments INTACT PTH (test code = 5005) 143 PG/ML IONIZED CALCIUM, [id number] 00:00:00 Test Item Value Reference Range Interpretation Comments CALCIUM, IONIZED (test code = 6.01 MG/DL 13017) IONIZED CALCIUM, [id number] 00:00:00 Test Item Value Reference Range Interpretation Comments CALCIUM, IONIZED (test code = 6.01 MG/DL 41944) [id number] 00:00:00 Test Item Value Reference Range Interpretation Comments LITHIUM (test code = 2039) 0.54 MEQ/L [id number] 00:00:00 Test Item Value Reference Range Interpretation Comments LITHIUM (test code = 2039) 0.54 MEQ/L [id number] 00:00:00 Test Item Value Reference Range Interpretation Comments LITHIUM (test code = 2039) 0.54 MEQ/L [id number] 00:00:00 Test Item Value Reference Range Interpretation Comments TSH, THIRD GENERATION (test code 3.840 UIU/ML = 2821) [id number] 00:00:00 Test Item Value Reference Range Interpretation Comments TSH, THIRD GENERATION (test code 3.840 UIU/ML = 2821) [id number] 00:00:00 Test Item Value Reference Range Interpretation Comments TSH, THIRD GENERATION (test code 3.840 UIU/ML = 2821) COMPREHENSIVE METABOLIC [id number] 00:00:00 Test Item Value Reference Range Interpretation Comments GLUCOSE (test code = 2217) 90 MG/DL BUN (test code = 2208) 13 MG/DL CREATININE (test code = 2214) 0.74 MG/DL eGFR (2020 CKD-EPI) (test code 97 ML/MIN/1.73 = 79355) CALC BUN/CREAT (test code = 18 RATIO [...] code = 2219) 38 U/L COMPREHENSIVE METABOLIC [id number] 00:00:00 Test Item Value Reference Range Interpretation Comments GLUCOSE (test code = 2217) 90 MG/DL BUN (test code = 2208) 13 MG/DL CREATININE (test code = 2214) 0.74 MG/DL eGFR (2020 CKD-EPI) (test code 97 ML/MIN/1.73 = 04029) CALC BUN/CREAT (test code = 18 RATIO [...] (test code = 2219) 38 U/L LIPID [id number] 00:00:00 Test Item Value Reference Range Interpretation Comments CHOLESTEROL (test code = 2210) 123 MG/DL TRIGLYCERIDES (test code = 2232) 137 MG/DL HDL CHOLESTEROL (test code = 2220) 30 MG/DL CALC LDL CHOL (test code = 2237) 71 MG/DL RISK RATIO LDL/HDL (test code = 2.37 RATIO 2238) LIPID [id number] 00:00:00 Test Item Value Reference Range Interpretation Comments CHOLESTEROL (test code = 2210) 123 MG/DL TRIGLYCERIDES (test code = 2232) 137 MG/DL HDL CHOLESTEROL (test code = 2220) 30 MG/DL CALC LDL CHOL (test code = 2237) 71 MG/DL RISK RATIO LDL/HDL (test code = 2.37 RATIO 2238) INTACT [id number] 00:00:00 Test Item Value Reference Range Interpretation Comments INTACT PTH (test code = 5005) 143 PG/ML INTACT [id number] 00:00:00 Test Item Value Reference Range Interpretation Comments INTACT PTH (test code = 5005) 143 PG/ML INTACT [id number] 00:00:00 Test Item Value Reference Range Interpretation Comments INTACT PTH (test code = 5005) 143 PG/ML IONIZED CALCIUM, [id number] 00:00:00 Test Item Value Reference Range Interpretation Comments CALCIUM, IONIZED (test code = 6.01 MG/DL 54016) IONIZED CALCIUM, [id number] 00:00:00 Test Item Value Reference Range Interpretation Comments CALCIUM, IONIZED (test code = 6.01 MG/DL 44429) [id number] 00:00:00 Test Item Value Reference Range Interpretation Comments LITHIUM (test code = 2039) 0.54 MEQ/L [id number] 00:00:00 Test Item Value Reference Range Interpretation Comments LITHIUM (test code = 2039) 0.54 MEQ/L [id number] 00:00:00 Test Item Value Reference Range Interpretation Comments LITHIUM (test code = 2039) 0.54 MEQ/L [id number] 00:00:00 Test Item Value Reference Range Interpretation Comments TSH, THIRD GENERATION (test code 3.840 UIU/ML = 2821) [id number] 00:00:00 Test Item Value Reference Range Interpretation Comments TSH, THIRD GENERATION (test code 3.840 UIU/ML = 2821) [id number] 00:00:00 Test Item Value Reference Range Interpretation Comments TSH, THIRD GENERATION (test code 3.840 UIU/ML = 2821) COMPREHENSIVE METABOLIC [id number] 00:00:00 Test Item Value Reference Range Interpretation Comments GLUCOSE (test code = 2217) 90 MG/DL BUN (test code = 2208) 13 MG/DL CREATININE (test code = 2214) 0.74 MG/DL eGFR (2020 CKD-EPI) (test code 97 ML/MIN/1.73 = 55701) CALC BUN/CREAT (test code = 18 RATIO [...] code = 2219) 38 U/L COMPREHENSIVE METABOLIC [id number] 00:00:00 Test Item Value Reference Range Interpretation Comments GLUCOSE (test code = 2217) 90 MG/DL BUN (test code = 2208) 13 MG/DL CREATININE (test code = 2214) 0.74 MG/DL eGFR (2020 CKD-EPI) (test code 97 ML/MIN/1.73 = 22404) CALC BUN/CREAT (test code = 18 RATIO [...] (test code = 2219) 38 U/L LIPID [id number] 00:00:00 Test Item Value Reference Range Interpretation Comments CHOLESTEROL (test code = 2210) 123 MG/DL TRIGLYCERIDES (test code = 2232) 137 MG/DL HDL CHOLESTEROL (test code = 2220) 30 MG/DL CALC LDL CHOL (test code = 2237) 71 MG/DL RISK RATIO LDL/HDL (test code = 2.37 RATIO 2238) LIPID [id number] 00:00:00 Test Item Value Reference Range Interpretation Comments CHOLESTEROL (test code = 2210) 123 MG/DL TRIGLYCERIDES (test code = 2232) 137 MG/DL HDL CHOLESTEROL (test code = 2220) 30 MG/DL CALC LDL CHOL (test code = 2237) 71 MG/DL RISK RATIO LDL/HDL (test code = 2.37 RATIO 2238) INTACT [id number] 00:00:00 Test Item Value Reference Range Interpretation Comments INTACT PTH (test code = 5005) 143 PG/ML INTACT [id number] 00:00:00 Test Item Value Reference Range Interpretation Comments INTACT PTH (test code = 5005) 143 PG/ML INTACT [id number] 00:00:00 Test Item Value Reference Range Interpretation Comments INTACT PTH (test code = 5005) 143 PG/ML IONIZED CALCIUM, [id number] 00:00:00 Test Item Value Reference Range Interpretation Comments CALCIUM, IONIZED (test code = 6.01 MG/DL 95055) IONIZED CALCIUM, [id number] 00:00:00 Test Item Value Reference Range Interpretation Comments CALCIUM, IONIZED (test code = 6.01 MG/DL 63958) [id number] 00:00:00 Test Item Value Reference Range Interpretation Comments LITHIUM (test code = 2039) 0.54 MEQ/L [id number] 00:00:00 Test Item Value Reference Range Interpretation Comments LITHIUM (test code = 2039) 0.54 MEQ/L [id number] 00:00:00 Test Item Value Reference Range Interpretation Comments LITHIUM (test code = 2039) 0.54 MEQ/L [id number] 00:00:00 Test Item Value Reference Range Interpretation Comments TSH, THIRD GENERATION (test code 3.840 UIU/ML = 2821) [id number] 00:00:00 Test Item Value Reference Range Interpretation Comments TSH, THIRD GENERATION (test code 3.840 UIU/ML = 2821) [id number] 00:00:00 Test Item Value Reference Range Interpretation Comments TSH, THIRD GENERATION (test code 3.840 UIU/ML = 2821) COMPREHENSIVE METABOLIC [id number] 00:00:00 Test Item Value Reference Range Interpretation Comments GLUCOSE (test code = 2217) 90 MG/DL BUN (test code = 2208) 13 MG/DL CREATININE (test code = 2214) 0.74 MG/DL eGFR (2020 CKD-EPI) (test code 97 ML/MIN/1.73 = 62445) CALC BUN/CREAT (test code = 18 RATIO [...] code = 2219) 38 U/L COMPREHENSIVE METABOLIC [id number] 00:00:00 Test Item Value Reference Range Interpretation Comments GLUCOSE (test code = 2217) 90 MG/DL BUN (test code = 2208) 13 MG/DL CREATININE (test code = 2214) 0.74 MG/DL eGFR (2020 CKD-EPI) (test code 97 ML/MIN/1.73 = 81944) CALC BUN/CREAT (test code = 18 RATIO [...] (test code = 2219) 38 U/L LIPID [id number] 00:00:00 Test Item Value Reference Range Interpretation Comments CHOLESTEROL (test code = 2210) 123 MG/DL TRIGLYCERIDES (test code = 2232) 137 MG/DL HDL CHOLESTEROL (test code = 2220) 30 MG/DL CALC LDL CHOL (test code = 2237) 71 MG/DL RISK RATIO LDL/HDL (test code = 2.37 RATIO 2238) LIPID [id number] 00:00:00 Test Item Value Reference Range Interpretation Comments CHOLESTEROL (test code = 2210) 123 MG/DL TRIGLYCERIDES (test code = 2232) 137 MG/DL HDL CHOLESTEROL (test code = 2220) 30 MG/DL CALC LDL CHOL (test code = 2237) 71 MG/DL RISK RATIO LDL/HDL (test code = 2.37 RATIO 2238) INTACT [id number] 00:00:00 Test Item Value Reference Range Interpretation Comments INTACT PTH (test code = 5005) 143 PG/ML INTACT [id number] 00:00:00 Test Item Value Reference Range Interpretation Comments INTACT PTH (test code = 5005) 143 PG/ML INTACT [id number] 00:00:00 Test Item Value Reference Range Interpretation Comments INTACT PTH (test code = 5005) 143 PG/ML IONIZED CALCIUM, [id number] 00:00:00 Test Item Value Reference Range Interpretation Comments CALCIUM, IONIZED (test code = 6.01 MG/DL 35227) IONIZED CALCIUM, [id number] 00:00:00 Test Item Value Reference Range Interpretation Comments CALCIUM, IONIZED (test code = 6.01 MG/DL 03884) [id number] 00:00:00 Test Item Value Reference Range Interpretation Comments LITHIUM (test code = 2039) 0.54 MEQ/L [id number] 00:00:00 Test Item Value Reference Range Interpretation Comments LITHIUM (test code = 2039) 0.54 MEQ/L [id number] 00:00:00 Test Item Value Reference Range Interpretation Comments LITHIUM (test code = 2039) 0.54 MEQ/L [id number] 00:00:00 Test Item Value Reference Range Interpretation Comments TSH, THIRD GENERATION (test code 3.840 UIU/ML = 2821) [id number] 00:00:00 Test Item Value Reference Range Interpretation Comments TSH, THIRD GENERATION (test code 3.840 UIU/ML = 2821) [id number] 00:00:00 Test Item Value Reference Range Interpretation Comments TSH, THIRD GENERATION (test code 3.840 UIU/ML = 2821) COMPREHENSIVE METABOLIC [id number] 00:00:00 Test Item Value Reference Range Interpretation Comments GLUCOSE (test code = 2217) 90 MG/DL BUN (test code = 2208) 13 MG/DL CREATININE (test code = 2214) 0.74 MG/DL eGFR (2020 CKD-EPI) (test code 97 ML/MIN/1.73 = 84467) CALC BUN/CREAT (test code = 18 RATIO [...] code = 2219) 38 U/L COMPREHENSIVE METABOLIC [id number] 00:00:00 Test Item Value Reference Range Interpretation Comments GLUCOSE (test code = 2217) 90 MG/DL BUN (test code = 2208) 13 MG/DL CREATININE (test code = 2214) 0.74 MG/DL eGFR (2020 CKD-EPI) (test code 97 ML/MIN/1.73 = 60624) CALC BUN/CREAT (test code = 18 RATIO [...] (test code = 2219) 38 U/L LIPID [id number] 00:00:00 Test Item Value Reference Range Interpretation Comments CHOLESTEROL (test code = 2210) 123 MG/DL TRIGLYCERIDES (test code = 2232) 137 MG/DL HDL CHOLESTEROL (test code = 2220) 30 MG/DL CALC LDL CHOL (test code = 2237) 71 MG/DL RISK RATIO LDL/HDL (test code = 2.37 RATIO 2238) LIPID [id number] 00:00:00 Test Item Value Reference Range Interpretation Comments CHOLESTEROL (test code = 2210) 123 MG/DL TRIGLYCERIDES (test code = 2232) 137 MG/DL HDL CHOLESTEROL (test code = 2220) 30 MG/DL CALC LDL CHOL (test code = 2237) 71 MG/DL RISK RATIO LDL/HDL (test code = 2.37 RATIO 2238) INTACT [id number] 00:00:00 Test Item Value Reference Range Interpretation Comments INTACT PTH (test code = 5005) 143 PG/ML INTACT [id number] 00:00:00 Test Item Value Reference Range Interpretation Comments INTACT PTH (test code = 5005) 143 PG/ML INTACT [id number] 00:00:00 Test Item Value Reference Range Interpretation Comments INTACT PTH (test code = 5005) 143 PG/ML IONIZED CALCIUM, [id number] 00:00:00 Test Item Value Reference Range Interpretation Comments CALCIUM, IONIZED (test code = 6.01 MG/DL 94270) IONIZED CALCIUM, [id number] 00:00:00 Test Item Value Reference Range Interpretation Comments CALCIUM, IONIZED (test code = 6.01 MG/DL 48174) [id number] 00:00:00 Test Item Value Reference Range Interpretation Comments LITHIUM (test code = 2039) 0.54 MEQ/L [id number] 00:00:00 Test Item Value Reference Range Interpretation Comments LITHIUM (test code = 2038) 0.54 MEQ/L [id number] 00:00:00 Test Item Value Reference Range Interpretation Comments LITHIUM (test code = 2038) 0.54 MEQ/L [id number] 00:00:00 Test Item Value Reference Range Interpretation Comments TSH, THIRD GENERATION (test code 3.840 UIU/ML = 2821) [id number] 00:00:00 Test Item Value Reference Range Interpretation Comments TSH, THIRD GENERATION (test code 3.840 UIU/ML = 2821) [id number] 00:00:00 Test Item Value Reference Range Interpretation Comments TSH, THIRD GENERATION (test code 3.840 UIU/ML = 2821) COMPREHENSIVE METABOLIC [id number] 00:00:00 Test Item Value Reference Range Interpretation Comments GLUCOSE (test code = 2217) 90 MG/DL BUN (test code = 2208) 13 MG/DL CREATININE (test code = 2214) 0.74 MG/DL eGFR (2020 CKD-EPI) (test code 97 ML/MIN/1.73 = 06165) CALC BUN/CREAT (test code = 18 RATIO [...] code = 2219) 38 U/L COMPREHENSIVE METABOLIC [id number] 00:00:00 Test Item Value Reference Range Interpretation Comments GLUCOSE (test code = 2217) 90 MG/DL BUN (test code = 2208) 13 MG/DL CREATININE (test code = 2214) 0.74 MG/DL eGFR (2020 CKD-EPI) (test code 97 ML/MIN/1.73 = 83169) CALC BUN/CREAT (test code = 18 RATIO [...] (test code = 2219) 38 U/L LIPID [id number] 00:00:00 Test Item Value Reference Range Interpretation Comments CHOLESTEROL (test code = 2210) 123 MG/DL TRIGLYCERIDES (test code = 2232) 137 MG/DL HDL CHOLESTEROL (test code = 2220) 30 MG/DL CALC LDL CHOL (test code = 2237) 71 MG/DL RISK RATIO LDL/HDL (test code = 2.37 RATIO 2238) LIPID [id number] 00:00:00 Test Item Value Reference Range Interpretation Comments CHOLESTEROL (test code = 2210) 123 MG/DL TRIGLYCERIDES (test code = 2232) 137 MG/DL HDL CHOLESTEROL (test code = 2220) 30 MG/DL CALC LDL CHOL (test code = 2237) 71 MG/DL RISK RATIO LDL/HDL (test code = 2.37 RATIO 2238) INTACT [id number] 00:00:00 Test Item Value Reference Range Interpretation Comments INTACT PTH (test code = 5005) 143 PG/ML INTACT [id number] 00:00:00 Test Item Value Reference Range Interpretation Comments INTACT PTH (test code = 5005) 143 PG/ML INTACT [id number] 00:00:00 Test Item Value Reference Range Interpretation Comments INTACT PTH (test code = 5005) 143 PG/ML IONIZED CALCIUM, [id number] 00:00:00 Test Item Value Reference Range Interpretation Comments CALCIUM, IONIZED (test code = 6.01 MG/DL 66202) IONIZED CALCIUM, [id number] 00:00:00 Test Item Value Reference Range Interpretation Comments CALCIUM, IONIZED (test code = 6.01 MG/DL 26917) [id number] 00:00:00 Test Item Value Reference Range Interpretation Comments LITHIUM (test code = 2039) 0.54 MEQ/L [id number] 00:00:00 Test Item Value Reference Range Interpretation Comments LITHIUM (test code = 203) 0.54 MEQ/L [id number] 00:00:00 Test Item Value Reference Range Interpretation Comments LITHIUM (test code = 2039) 0.54 MEQ/L [id number] 00:00:00 Test Item Value Reference Range Interpretation Comments TSH, THIRD GENERATION (test code 3.840 UIU/ML = 2821) [id number] 00:00:00 Test Item Value Reference Range Interpretation Comments TSH, THIRD GENERATION (test code 3.840 UIU/ML = 2821) [id number] 00:00:00 Test Item Value Reference Range Interpretation Comments TSH, THIRD GENERATION (test code 3.840 UIU/ML = 2821) COMPREHENSIVE METABOLIC [id number] 00:00:00 Test Item Value Reference Range Interpretation Comments GLUCOSE (test code = 2217) 90 MG/DL BUN (test code = 2208) 13 MG/DL CREATININE (test code = 2214) 0.74 MG/DL eGFR (2020 CKD-EPI) (test code 97 ML/MIN/1.73 = 10306) CALC BUN/CREAT (test code = 18 RATIO [...] code = 2219) 38 U/L COMPREHENSIVE METABOLIC [id number] 00:00:00 Test Item Value Reference Range Interpretation Comments GLUCOSE (test code = 2217) 90 MG/DL BUN (test code = 2208) 13 MG/DL CREATININE (test code = 2214) 0.74 MG/DL eGFR (2020 CKD-EPI) (test code 97 ML/MIN/1.73 = 26238) CALC BUN/CREAT (test code = 18 RATIO [...] (test code = 2219) 38 U/L LIPID [id number] 00:00:00 Test Item Value Reference Range Interpretation Comments CHOLESTEROL (test code = 2210) 123 MG/DL TRIGLYCERIDES (test code = 2232) 137 MG/DL HDL CHOLESTEROL (test code = 2220) 30 MG/DL CALC LDL CHOL (test code = 2237) 71 MG/DL RISK RATIO LDL/HDL (test code = 2.37 RATIO 2238) LIPID [id number] 00:00:00 Test Item Value Reference Range Interpretation Comments CHOLESTEROL (test code = 2210) 123 MG/DL TRIGLYCERIDES (test code = 2232) 137 MG/DL HDL CHOLESTEROL (test code = 2220) 30 MG/DL CALC LDL CHOL (test code = 2237) 71 MG/DL RISK RATIO LDL/HDL (test code = 2.37 RATIO 2238) INTACT [id number] 00:00:00 Test Item Value Reference Range Interpretation Comments INTACT PTH (test code = 5005) 143 PG/ML INTACT [id number] 00:00:00 Test Item Value Reference Range Interpretation Comments INTACT PTH (test code = 5005) 143 PG/ML INTACT [id number] 00:00:00 Test Item Value Reference Range Interpretation Comments INTACT PTH (test code = 5005) 143 PG/ML IONIZED CALCIUM, [id number] 00:00:00 Test Item Value Reference Range Interpretation Comments CALCIUM, IONIZED (test code = 6.01 MG/DL 65019) IONIZED CALCIUM, [id number] 00:00:00 Test Item Value Reference Range Interpretation Comments CALCIUM, IONIZED (test code = 6.01 MG/DL 52594) [id number] 00:00:00 Test Item Value Reference Range Interpretation Comments LITHIUM (test code = 2039) 0.54 MEQ/L [id number] 00:00:00 Test Item Value Reference Range Interpretation Comments LITHIUM (test code = 2039) 0.54 MEQ/L [id number] 00:00:00 Test Item Value Reference Range Interpretation Comments LITHIUM (test code = 2039) 0.54 MEQ/L [id number] 00:00:00 Test Item Value Reference Range Interpretation Comments TSH, THIRD GENERATION (test code 3.840 UIU/ML = 2821) [id number] 00:00:00 Test Item Value Reference Range Interpretation Comments TSH, THIRD GENERATION (test code 3.840 UIU/ML = 2821) [id number] 00:00:00 Test Item Value Reference Range Interpretation Comments TSH, THIRD GENERATION (test code 3.840 UIU/ML = 2821) COMPREHENSIVE METABOLIC [id number] 00:00:00 Test Item Value Reference Range Interpretation Comments GLUCOSE (test code = 2217) 90 MG/DL BUN (test code = 2208) 13 MG/DL CREATININE (test code = 2214) 0.74 MG/DL eGFR (2020 CKD-EPI) (test code 97 ML/MIN/1.73 = 92064) CALC BUN/CREAT (test code = 18 RATIO [...] code = 2219) 38 U/L COMPREHENSIVE METABOLIC [id number] 00:00:00 Test Item Value Reference Range Interpretation Comments GLUCOSE (test code = 2217) 90 MG/DL BUN (test code = 2208) 13 MG/DL CREATININE (test code = 2214) 0.74 MG/DL eGFR (2020 CKD-EPI) (test code 97 ML/MIN/1.73 = 19234) CALC BUN/CREAT (test code = 18 RATIO [...] (test code = 2219) 38 U/L LIPID [id number] 00:00:00 Test Item Value Reference Range Interpretation Comments CHOLESTEROL (test code = 2210) 123 MG/DL TRIGLYCERIDES (test code = 2232) 137 MG/DL HDL CHOLESTEROL (test code = 2220) 30 MG/DL CALC LDL CHOL (test code = 2237) 71 MG/DL RISK RATIO LDL/HDL (test code = 2.37 RATIO 2238) LIPID [id number] 00:00:00 Test Item Value Reference Range Interpretation Comments CHOLESTEROL (test code = 2210) 123 MG/DL TRIGLYCERIDES (test code = 2232) 137 MG/DL HDL CHOLESTEROL (test code = 2220) 30 MG/DL CALC LDL CHOL (test code = 2237) 71 MG/DL RISK RATIO LDL/HDL (test code = 2.37 RATIO 2238) INTACT [id number] 00:00:00 Test Item Value Reference Range Interpretation Comments INTACT PTH (test code = 5005) 143 PG/ML INTACT [id number] 00:00:00 Test Item Value Reference Range Interpretation Comments INTACT PTH (test code = 5005) 143 PG/ML INTACT [id number] 00:00:00 Test Item Value Reference Range Interpretation Comments INTACT PTH (test code = 5005) 143 PG/ML IONIZED CALCIUM, [id number] 00:00:00 Test Item Value Reference Range Interpretation Comments CALCIUM, IONIZED (test code = 6.01 MG/DL 26991) IONIZED CALCIUM, [id number] 00:00:00 Test Item Value Reference Range Interpretation Comments CALCIUM, IONIZED (test code = 6.01 MG/DL 41583) [id number] 00:00:00 Test Item Value Reference Range Interpretation Comments LITHIUM (test code = 2039) 0.54 MEQ/L [id number] 00:00:00 Test Item Value Reference Range Interpretation Comments LITHIUM (test code = 2039) 0.54 MEQ/L [id number] 00:00:00 Test Item Value Reference Range Interpretation Comments LITHIUM (test code = 2039) 0.54 MEQ/L [id number] 00:00:00 Test Item Value Reference Range Interpretation Comments TSH, THIRD GENERATION (test code 3.840 UIU/ML = 2821) [id number] 00:00:00 Test Item Value Reference Range Interpretation Comments TSH, THIRD GENERATION (test code 3.840 UIU/ML = 2821) [id number] 00:00:00 Test Item Value Reference Range Interpretation Comments TSH, THIRD GENERATION (test code 3.840 UIU/ML = 2821) COMPREHENSIVE METABOLIC [id number] 00:00:00 Test Item Value Reference Range Interpretation Comments GLUCOSE (test code = 2217) 90 MG/DL BUN (test code = 2208) 13 MG/DL CREATININE (test code = 2214) 0.74 MG/DL eGFR (2020 CKD-EPI) (test code 97 ML/MIN/1.73 = 81341) CALC BUN/CREAT (test code = 18 RATIO [...] code = 2219) 38 U/L COMPREHENSIVE METABOLIC [id number] 00:00:00 Test Item Value Reference Range Interpretation Comments GLUCOSE (test code = 2217) 90 MG/DL BUN (test code = 2208) 13 MG/DL CREATININE (test code = 2214) 0.74 MG/DL eGFR (2020 CKD-EPI) (test code 97 ML/MIN/1.73 = 09073) CALC BUN/CREAT (test code = 18 RATIO [...] (test code = 2219) 38 U/L LIPID [id number] 00:00:00 Test Item Value Reference Range Interpretation Comments CHOLESTEROL (test code = 2210) 123 MG/DL TRIGLYCERIDES (test code = 2232) 137 MG/DL HDL CHOLESTEROL (test code = 2220) 30 MG/DL CALC LDL CHOL (test code = 2237) 71 MG/DL RISK RATIO LDL/HDL (test code = 2.37 RATIO 2238) LIPID [id number] 00:00:00 Test Item Value Reference Range Interpretation Comments CHOLESTEROL (test code = 2210) 123 MG/DL TRIGLYCERIDES (test code = 2232) 137 MG/DL HDL CHOLESTEROL (test code = 2220) 30 MG/DL CALC LDL CHOL (test code = 2237) 71 MG/DL RISK RATIO LDL/HDL (test code = 2.37 RATIO 2238) INTACT [id number] 00:00:00 Test Item Value Reference Range Interpretation Comments INTACT PTH (test code = 5005) 143 PG/ML INTACT [id number] 00:00:00 Test Item Value Reference Range Interpretation Comments INTACT PTH (test code = 5005) 143 PG/ML INTACT [id number] 00:00:00 Test Item Value Reference Range Interpretation Comments INTACT PTH (test code = 5005) 143 PG/ML IONIZED CALCIUM, [id number] 00:00:00 Test Item Value Reference Range Interpretation Comments CALCIUM, IONIZED (test code = 6.01 MG/DL 29701) IONIZED CALCIUM, [id number] 00:00:00 Test Item Value Reference Range Interpretation Comments CALCIUM, IONIZED (test code = 6.01 MG/DL 82646) [id number] 00:00:00 Test Item Value Reference Range Interpretation Comments LITHIUM (test code = 2039) 0.54 MEQ/L [id number] 00:00:00 Test Item Value Reference Range Interpretation Comments LITHIUM (test code = 2039) 0.54 MEQ/L [id number] 00:00:00 Test Item Value Reference Range Interpretation Comments LITHIUM (test code = 2039) 0.54 MEQ/L [id number] 00:00:00 Test Item Value Reference Range Interpretation Comments TSH, THIRD GENERATION (test code 3.840 UIU/ML = 2821) [id number] 00:00:00 Test Item Value Reference Range Interpretation Comments TSH, THIRD GENERATION (test code 3.840 UIU/ML = 2821) [id number] 00:00:00 Test Item Value Reference Range Interpretation Comments TSH, THIRD GENERATION (test code 3.840 UIU/ML = 2821) [id number] 00:00:00 Test Item Value Reference Range Interpretation Comments TSH, THIRD GENERATION (test code 3.840 UIU/ML = 2821) IONIZED CALCIUM, [id number] 00:00:00 Test Item Value Reference Range Interpretation Comments CALCIUM, IONIZED (test code = 6.08 MG/DL 63013) IONIZED CALCIUM, [id number] 00:00:00 Test Item Value Reference Range Interpretation Comments CALCIUM, IONIZED (test code = 6.08 MG/DL 09031) IONIZED CALCIUM, [id number] 00:00:00 Test Item Value Reference Range Interpretation Comments CALCIUM, IONIZED (test code = 6.08 MG/DL 49159) IONIZED CALCIUM, [id number] 00:00:00 Test Item Value Reference Range Interpretation Comments CALCIUM, IONIZED (test code = 6.08 MG/DL 57927) IONIZED CALCIUM, [id number] 00:00:00 Test Item Value Reference Range Interpretation Comments CALCIUM, IONIZED (test code = 6.08 MG/DL 83555) IONIZED CALCIUM, [id number] 00:00:00 Test Item Value Reference Range Interpretation Comments CALCIUM, IONIZED (test code = 6.08 MG/DL 76519) IONIZED CALCIUM, [id number] 00:00:00 Test Item Value Reference Range Interpretation Comments CALCIUM, IONIZED (test code = 6.08 MG/DL 32552) IONIZED CALCIUM, [id number] 00:00:00 Test Item Value Reference Range Interpretation Comments CALCIUM, IONIZED (test code = 6.08 MG/DL 62313) IONIZED CALCIUM, [id number] 00:00:00 Test Item Value Reference Range Interpretation Comments CALCIUM, IONIZED (test code = 6.08 MG/DL 27770) IONIZED CALCIUM, [id number] 00:00:00 Test Item Value Reference Range Interpretation Comments CALCIUM, IONIZED (test code = 6.08 MG/DL 55990) IONIZED CALCIUM, [id number] 00:00:00 Test Item Value Reference Range Interpretation Comments CALCIUM, IONIZED (test code = 6.08 MG/DL 27508) IONIZED CALCIUM, [id number] 00:00:00 Test Item Value Reference Range Interpretation Comments CALCIUM, IONIZED (test code = 6.08 MG/DL 83270) IONIZED CALCIUM, [id number] 00:00:00 Test Item Value Reference Range Interpretation Comments CALCIUM, IONIZED (test code = 6.08 MG/DL 45832) IONIZED CALCIUM, [id number] 00:00:00 Test Item Value Reference Range Interpretation Comments CALCIUM, IONIZED (test code = 6.08 MG/DL 24156) IONIZED CALCIUM, [id number] 00:00:00 Test Item Value Reference Range Interpretation Comments CALCIUM, IONIZED (test code = 6.08 MG/DL 04292) IONIZED CALCIUM, [id number] 00:00:00 Test Item Value Reference Range Interpretation Comments CALCIUM, IONIZED (test code = 6.08 MG/DL 13626) IONIZED CALCIUM, [id number] 00:00:00 Test Item Value Reference Range Interpretation Comments CALCIUM, IONIZED (test code = 6.08 MG/DL 47328) IONIZED CALCIUM, [id number] 00:00:00 Test Item Value Reference Range Interpretation Comments CALCIUM, IONIZED (test code = 6.08 MG/DL 30124) IONIZED CALCIUM, [id number] 00:00:00 Test Item Value Reference Range Interpretation Comments CALCIUM, IONIZED (test code = 6.08 MG/DL 38340) IONIZED CALCIUM, [id number] 00:00:00 Test Item Value Reference Range Interpretation Comments CALCIUM, IONIZED (test code = 6.08 MG/DL 12462) IONIZED CALCIUM, [id number] 00:00:00 Test Item Value Reference Range Interpretation Comments CALCIUM, IONIZED (test code = 6.08 MG/DL 77380) IONIZED CALCIUM, [id number] 00:00:00 Test Item Value Reference Range Interpretation Comments CALCIUM, IONIZED (test code = 6.08 MG/DL 13486) IONIZED CALCIUM, [id number] 00:00:00 Test Item Value Reference Range Interpretation Comments CALCIUM, IONIZED (test code = 6.08 MG/DL 97588) SARS-CoV-2 (COVID-19), RT-[id number] 10:52:51 Test Item Value Reference Interpretation Comments Range SARS-CoV-2 POSITIVE SEE NOTE A SARS-CoV-2 RNA INTERPRETATION DETECTEDPosit alek results (test code = 45546) are geovanna cative of the presence of [...] code = NOT SPECIFIED Note: [place] [address]) Marii Chip Hiram l-Time RT-PCR. The exp ected result or [...] provided by met hod given in report:[email or web address]:// [email or web address] [email or web address]/ Alternatively, see downloadable PD F fact sheet at:[email or web address]://[email or web address].co [email or web address] CR UNLESS OTHERWISE INDIC ATED, ALL TESTING PERFORM [facility], [place] [place] [address] LABORATORY DIRE CTOR: Elena HUTSON. CLIA NUMBER [id number] CAP ACCREDITATION N O. [id number] SARS-CoV-2 (COVID-19) by RT-PCR (HIGH RISK)2021-04-12 00:00:00 Test Item Value Reference Range Interpretation Comments SARS-CoV-2 INTERPRETATION (test POSITIVE code = 40188) SOURCE (test code = 27123) NOT SPECIFIED SARS-CoV-2 (COVID-19) by RT-PCR (HIGH RISK)2021-04-12 00:00:00 Test Item Value Reference Range Interpretation Comments SARS-CoV-2 INTERPRETATION (test POSITIVE code = 45067) SOURCE (test code = 03717) NOT SPECIFIED SARS-CoV-2 (COVID-19) by RT-PCR (HIGH RISK)2021-04-12 00:00:00 Test Item Value Reference Range Interpretation Comments SARS-CoV-2 INTERPRETATION (test POSITIVE code = 08563) SOURCE (test code = 94230) NOT SPECIFIED SARS-CoV-2 (COVID-19) by RT-PCR (HIGH RISK)2021-04-12 00:00:00 Test Item Value Reference Range Interpretation Comments SARS-CoV-2 INTERPRETATION (test POSITIVE code = 37785) SOURCE (test code = 55326) NOT SPECIFIED SARS-CoV-2 (COVID-19) by RT-PCR (HIGH RISK)2021-04-12 00:00:00 Test Item Value Reference Range Interpretation Comments SARS-CoV-2 INTERPRETATION (test POSITIVE code = 56900) SOURCE (test code = 63234) NOT SPECIFIED SARS-CoV-2 (COVID-19) by RT-PCR (HIGH RISK)2021-04-12 00:00:00 Test Item Value Reference Range Interpretation Comments SARS-CoV-2 INTERPRETATION (test POSITIVE code = 44215) SOURCE (test code = 30189) NOT SPECIFIED SARS-CoV-2 (COVID-19) by RT-PCR (HIGH RISK)2021-04-12 00:00:00 Test Item Value Reference Range Interpretation Comments SARS-CoV-2 INTERPRETATION (test POSITIVE code = 64796) SOURCE (test code = 76639) NOT SPECIFIED SARS-CoV-2 (COVID-19) by RT-PCR (HIGH RISK)2021-04-12 00:00:00 Test Item Value Reference Range Interpretation Comments SARS-CoV-2 INTERPRETATION (test POSITIVE code = 01564) SOURCE (test code = 36551) NOT SPECIFIED SARS-CoV-2 (COVID-19) by RT-PCR (HIGH RISK)2021-04-12 00:00:00 Test Item Value Reference Range Interpretation Comments SARS-CoV-2 INTERPRETATION (test POSITIVE code = 10935) SOURCE (test code = 46676) NOT SPECIFIED SARS-CoV-2 (COVID-19) by RT-PCR (HIGH RISK)2021-04-12 00:00:00 Test Item Value Reference Range Interpretation Comments SARS-CoV-2 INTERPRETATION (test POSITIVE code = 10740) SOURCE (test code = 04504) NOT SPECIFIED SARS-CoV-2 (COVID-19) by RT-PCR (HIGH RISK)2021-04-12 00:00:00 Test Item Value Reference Range Interpretation Comments SARS-CoV-2 INTERPRETATION (test POSITIVE code = 21668) SOURCE (test code = 93580) NOT SPECIFIED SARS-CoV-2 (COVID-19) by RT-PCR (HIGH RISK)2021-04-12 00:00:00 Test Item Value Reference Range Interpretation Comments SARS-CoV-2 INTERPRETATION (test POSITIVE code = 93999) SOURCE (test code = 75089) NOT SPECIFIED SARS-CoV-2 (COVID-19) by RT-PCR (HIGH RISK)2021-04-12 00:00:00 Test Item Value Reference Range Interpretation Comments SARS-CoV-2 INTERPRETATION (test POSITIVE code = 18391) SOURCE (test code = 82037) NOT SPECIFIED SARS-CoV-2 (COVID-19) by RT-PCR (HIGH RISK)2021-04-12 00:00:00 Test Item Value Reference Range Interpretation Comments SARS-CoV-2 INTERPRETATION (test POSITIVE code = 75705) SOURCE (test code = 02351) NOT SPECIFIED SARS-CoV-2 (COVID-19) by RT-PCR (HIGH RISK)2021-04-12 00:00:00 Test Item Value Reference Range Interpretation Comments SARS-CoV-2 INTERPRETATION (test POSITIVE code = 04329) SOURCE (test code = 72848) NOT SPECIFIED SARS-CoV-2 (COVID-19) by RT-PCR (HIGH RISK)2021-04-12 00:00:00 Test Item Value Reference Range Interpretation Comments SARS-CoV-2 INTERPRETATION (test POSITIVE code = 38794) SOURCE (test code = 48435) NOT SPECIFIED SARS-CoV-2 (COVID-19) by RT-PCR (HIGH RISK)2021-04-12 00:00:00 Test Item Value Reference Range Interpretation Comments SARS-CoV-2 INTERPRETATION (test POSITIVE code = 40063) SOURCE (test code = 17615) NOT SPECIFIED SARS-CoV-2 (COVID-19) by RT-PCR (HIGH RISK)2021-04-12 00:00:00 Test Item Value Reference Range Interpretation Comments SARS-CoV-2 INTERPRETATION (test POSITIVE code = 85824) SOURCE (test code = 54781) NOT SPECIFIED SARS-CoV-2 (COVID-19) by RT-PCR (HIGH RISK)2021-04-12 00:00:00 Test Item Value Reference Range Interpretation Comments SARS-CoV-2 INTERPRETATION (test POSITIVE code = 37856) SOURCE (test code = 65462) NOT SPECIFIED SARS-CoV-2 (COVID-19) by RT-PCR (HIGH RISK)2021-04-12 00:00:00 Test Item Value Reference Range Interpretation Comments SARS-CoV-2 INTERPRETATION (test POSITIVE code = 33606) SOURCE (test code = 99951) NOT SPECIFIED SARS-CoV-2 (COVID-19) by RT-PCR (HIGH RISK)2021-04-12 00:00:00 Test Item Value Reference Range Interpretation Comments SARS-CoV-2 INTERPRETATION (test POSITIVE code = 20266) SOURCE (test code = 79212) NOT SPECIFIED SARS-CoV-2 (COVID-19) by RT-PCR (HIGH RISK)2021-04-12 00:00:00 Test Item Value Reference Range Interpretation Comments SARS-CoV-2 INTERPRETATION (test POSITIVE code = 16290) SOURCE (test code = 95729) NOT SPECIFIED SARS-CoV-2 (COVID-19) by RT-PCR (HIGH RISK)2021-04-12 00:00:00 Test Item Value Reference Range Interpretation Comments SARS-CoV-2 INTERPRETATION (test POSITIVE code = 00337) SOURCE (test code = 52896) NOT SPECIFIED LIPID [id number] 00:00:00 Test Item Value Reference Range Interpretation Comments CHOLESTEROL (test code = 2210) 173 MG/DL TRIGLYCERIDES (test code = 2232) 248 MG/DL HDL CHOLESTEROL (test code = 2220) 33 MG/DL CALC LDL CHOL (test code = 2237) 105 MG/DL RISK RATIO LDL/HDL (test code = 3.18 RATIO 2238) LIPID [id number] 00:00:00 Test Item Value Reference Range Interpretation Comments CHOLESTEROL (test code = 2210) 173 MG/DL TRIGLYCERIDES (test code = 2232) 248 MG/DL HDL CHOLESTEROL (test code = 2220) 33 MG/DL CALC LDL CHOL (test code = 2237) 105 MG/DL RISK RATIO LDL/HDL (test code = 3.18 RATIO 2238) LIPID [id number] 00:00:00 Test Item Value Reference Range Interpretation Comments CHOLESTEROL (test code = 2210) 173 MG/DL TRIGLYCERIDES (test code = 2232) 248 MG/DL HDL CHOLESTEROL (test code = 2220) 33 MG/DL CALC LDL CHOL (test code = 2237) 105 MG/DL RISK RATIO LDL/HDL (test code = 3.18 RATIO 2238) [id number] 00:00:00 Test Item Value Reference Range Interpretation Comments TSH, THIRD GENERATION (test code 1.470 UIU/ML = 2821) [id number] 00:00:00 Test Item Value Reference Range Interpretation Comments TSH, THIRD GENERATION (test code 1.470 UIU/ML = 2821) [id number] 00:00:00 Test Item Value Reference Range Interpretation Comments TSH, THIRD GENERATION (test code 1.470 UIU/ML = 2821) VITAMIN D, 25 [id number] 00:00:00 Test Item Value Reference Range Interpretation Comments VITAMIN D, 25 OH (test code = 4958) 20 NG/ML VITAMIN D, 25 [id number] 00:00:00 Test Item Value Reference Range Interpretation Comments VITAMIN D, 25 OH (test code = 4958) 20 NG/ML [id number] 00:00:00 Test Item Value Reference Range Interpretation Comments LITHIUM (test code = 2039) 0.39 MEQ/L [id number] 00:00:00 Test Item Value Reference Range Interpretation Comments LITHIUM (test code = 2039) 0.39 MEQ/L [id number] 00:00:00 Test Item Value Reference Range Interpretation Comments LITHIUM (test code = 2039) 0.39 MEQ/L [id number] 00:00:00 Test Item Value Reference Range Interpretation Comments TSH, THIRD GENERATION (test code 1.470 UIU/ML = 2821) [id number] 00:00:00 Test Item Value Reference Range Interpretation Comments TSH, THIRD GENERATION (test code 1.470 UIU/ML = 2821) VITAMIN D, 25 [id number] 00:00:00 Test Item Value Reference Range Interpretation Comments VITAMIN D, 25 OH (test code = 4958) 20 NG/ML [id number] 00:00:00 Test Item Value Reference Range Interpretation Comments LITHIUM (test code = 2038) 0.39 MEQ/L [id number] 00:00:00 Test Item Value Reference Range Interpretation Comments LITHIUM (test code = 2038) 0.39 MEQ/L COMPREHENSIVE METABOLIC [id number] 00:00:00 Test Item Value Reference Range Interpretation Comments GLUCOSE (test code = 2217) 109 MG/DL BUN (test code = 2208) 14 MG/DL CREATININE (test code = 2214) 0.64 MG/DL eGFR (2020 CKD-EPI) (test 106 ML/MIN/1.73 code = 46983) CALC BUN/CREAT (test code = 22 RATIO [...] code = 2219) 43 U/L COMPREHENSIVE METABOLIC [id number] 00:00:00 Test Item Value Reference Range Interpretation Comments GLUCOSE (test code = 2217) 109 MG/DL BUN (test code = 2208) 14 MG/DL CREATININE (test code = 2214) 0.64 MG/DL eGFR (2020 CKD-EPI) (test 106 ML/MIN/1.73 code = 91851) CALC BUN/CREAT (test code = 22 RATIO [...] (test code = 2219) 43 U/L LIPID [id number] 00:00:00 Test Item Value Reference Range Interpretation Comments CHOLESTEROL (test code = 2210) 173 MG/DL TRIGLYCERIDES (test code = 2232) 248 MG/DL HDL CHOLESTEROL (test code = 2220) 33 MG/DL CALC LDL CHOL (test code = 2237) 105 MG/DL RISK RATIO LDL/HDL (test code = 3.18 RATIO 2238) LIPID [id number] 00:00:00 Test Item Value Reference Range Interpretation Comments CHOLESTEROL (test code = 2210) 173 MG/DL TRIGLYCERIDES (test code = 2232) 248 MG/DL HDL CHOLESTEROL (test code = 2220) 33 MG/DL CALC LDL CHOL (test code = 2237) 105 MG/DL RISK RATIO LDL/HDL (test code = 3.18 RATIO 2238) [id number] 00:00:00 Test Item Value Reference Range Interpretation Comments TSH, THIRD GENERATION (test code 1.470 UIU/ML = 2821) [id number] 00:00:00 Test Item Value Reference Range Interpretation Comments TSH, THIRD GENERATION (test code 1.470 UIU/ML = 2821) [id number] 00:00:00 Test Item Value Reference Range Interpretation Comments TSH, THIRD GENERATION (test code 1.470 UIU/ML = 2821) VITAMIN D, 25 [id number] 00:00:00 Test Item Value Reference Range Interpretation Comments VITAMIN D, 25 OH (test code = 4958) 20 NG/ML VITAMIN D, 25 [id number] 00:00:00 Test Item Value Reference Range Interpretation Comments VITAMIN D, 25 OH (test code = 4958) 20 NG/ML [id number] 00:00:00 Test Item Value Reference Range Interpretation Comments LITHIUM (test code = 2038) 0.39 MEQ/L [id number] 00:00:00 Test Item Value Reference Range Interpretation Comments LITHIUM (test code = 2038) 0.39 MEQ/L [id number] 00:00:00 Test Item Value Reference Range Interpretation Comments LITHIUM (test code = 2038) 0.39 MEQ/L COMPREHENSIVE METABOLIC [id number] 00:00:00 Test Item Value Reference Range Interpretation Comments GLUCOSE (test code = 2216) 109 MG/DL BUN (test code = 2208) 14 MG/DL CREATININE (test code = 2214) 0.64 MG/DL eGFR (2020 CKD-EPI) (test 106 ML/MIN/1.73 code = 75789) CALC BUN/CREAT (test code = 22 RATIO 2235) SODIUM (test code = 2231) 141 MEQ/L POTASSIUM (test code = 2228) 4.6 MEQ/L CHLORIDE (test code = 2215) 108 MEQ/L CARBON DIOXIDE (test code = 26 MEQ/L 2205) CALCIUM (test code = 9) 11.2 MG/DL PROTEIN, TOTAL (test code = 6.7 G/DL 2228) ALBUMIN (test code = 2201) 4.2 G/DL CALC GLOBULIN (test code = 2.5 G/DL 2239) CALC A/G RATIO (test code = 1.7 RATIO 4) BILIRUBIN, TOTAL (test code = 0.4 MG/DL 2206) ALKALINE PHOSPHATASE (test 102 U/L code = 2204) AST (test code = 2218) 24 U/L ALT (test code = 2219) 43 U/L COMPREHENSIVE METABOLIC [id number] 00:00:00 Test Item Value Reference Range Interpretation Comments GLUCOSE (test code = 2217) 109 MG/DL BUN (test code = 2208) 14 MG/DL CREATININE (test code = 2214) 0.64 MG/DL eGFR (2020 CKD-EPI) (test 106 ML/MIN/1.73 code = 36271) CALC BUN/CREAT (test code = 22 RATIO [...] (test code = 2219) 43 U/L LIPID [id number] 00:00:00 Test Item Value Reference Range Interpretation Comments CHOLESTEROL (test code = 2210) 173 MG/DL TRIGLYCERIDES (test code = 2232) 248 MG/DL HDL CHOLESTEROL (test code = 2220) 33 MG/DL CALC LDL CHOL (test code = 2237) 105 MG/DL RISK RATIO LDL/HDL (test code = 3.18 RATIO 2238) LIPID [id number] 00:00:00 Test Item Value Reference Range Interpretation Comments CHOLESTEROL (test code = 2210) 173 MG/DL TRIGLYCERIDES (test code = 2232) 248 MG/DL HDL CHOLESTEROL (test code = 2220) 33 MG/DL CALC LDL CHOL (test code = 2237) 105 MG/DL RISK RATIO LDL/HDL (test code = 3.18 RATIO 2238) [id number] 00:00:00 Test Item Value Reference Range Interpretation Comments TSH, THIRD GENERATION (test code 1.470 UIU/ML = 2821) [id number] 00:00:00 Test Item Value Reference Range Interpretation Comments TSH, THIRD GENERATION (test code 1.470 UIU/ML = 2821) [id number] 00:00:00 Test Item Value Reference Range Interpretation Comments TSH, THIRD GENERATION (test code 1.470 UIU/ML = 2821) VITAMIN D, 25 [id number] 00:00:00 Test Item Value Reference Range Interpretation Comments VITAMIN D, 25 OH (test code = 4958) 20 NG/ML VITAMIN D, 25 [id number] 00:00:00 Test Item Value Reference Range Interpretation Comments VITAMIN D, 25 OH (test code = 4958) 20 NG/ML [id number] 00:00:00 Test Item Value Reference Range Interpretation Comments LITHIUM (test code = 2038) 0.39 MEQ/L [id number] 00:00:00 Test Item Value Reference Range Interpretation Comments LITHIUM (test code = 2038) 0.39 MEQ/L [id number] 00:00:00 Test Item Value Reference Range Interpretation Comments LITHIUM (test code = 2038) 0.39 MEQ/L COMPREHENSIVE METABOLIC [id number] 00:00:00 Test Item Value Reference Range Interpretation Comments GLUCOSE (test code = 2216) 109 MG/DL BUN (test code = 2208) 14 MG/DL CREATININE (test code = 2214) 0.64 MG/DL eGFR (2020 CKD-EPI) (test 106 ML/MIN/1.73 code = 30865) CALC BUN/CREAT (test code = 22 RATIO 2235) SODIUM (test code = 2231) 141 MEQ/L POTASSIUM (test code = 2228) 4.6 MEQ/L CHLORIDE (test code = 2215) 108 MEQ/L CARBON DIOXIDE (test code = 26 MEQ/L 2205) CALCIUM (test code = 2208) 11.2 MG/DL PROTEIN, TOTAL (test code = 6.7 G/DL 2228) ALBUMIN (test code = 2201) 4.2 G/DL CALC GLOBULIN (test code = 2.5 G/DL 2239) CALC A/G RATIO (test code = 1.7 RATIO 4) BILIRUBIN, TOTAL (test code = 0.4 MG/DL 2206) ALKALINE PHOSPHATASE (test 102 U/L code = 2204) AST (test code = 2218) 24 U/L ALT (test code = 2219) 43 U/L COMPREHENSIVE METABOLIC [id number] 00:00:00 Test Item Value Reference Range Interpretation Comments GLUCOSE (test code = 2217) 109 MG/DL BUN (test code = 2208) 14 MG/DL CREATININE (test code = 2214) 0.64 MG/DL eGFR (2020 CKD-EPI) (test 106 ML/MIN/1.73 code = 42250) CALC BUN/CREAT (test code = 22 RATIO [...] (test code = 2219) 43 U/L LIPID [id number] 00:00:00 Test Item Value Reference Range Interpretation Comments CHOLESTEROL (test code = 2210) 173 MG/DL TRIGLYCERIDES (test code = 2232) 248 MG/DL HDL CHOLESTEROL (test code = 2220) 33 MG/DL CALC LDL CHOL (test code = 2237) 105 MG/DL RISK RATIO LDL/HDL (test code = 3.18 RATIO 2238) LIPID [id number] 00:00:00 Test Item Value Reference Range Interpretation Comments CHOLESTEROL (test code = 2210) 173 MG/DL TRIGLYCERIDES (test code = 2232) 248 MG/DL HDL CHOLESTEROL (test code = 2220) 33 MG/DL CALC LDL CHOL (test code = 2237) 105 MG/DL RISK RATIO LDL/HDL (test code = 3.18 RATIO 2238) [id number] 00:00:00 Test Item Value Reference Range Interpretation Comments TSH, THIRD GENERATION (test code 1.470 UIU/ML = 2821) [id number] 00:00:00 Test Item Value Reference Range Interpretation Comments TSH, THIRD GENERATION (test code 1.470 UIU/ML = 2821) [id number] 00:00:00 Test Item Value Reference Range Interpretation Comments TSH, THIRD GENERATION (test code 1.470 UIU/ML = 2821) VITAMIN D, 25 [id number] 00:00:00 Test Item Value Reference Range Interpretation Comments VITAMIN D, 25 OH (test code = 4958) 20 NG/ML VITAMIN D, 25 [id number] 00:00:00 Test Item Value Reference Range Interpretation Comments VITAMIN D, 25 OH (test code = 4958) 20 NG/ML [id number] 00:00:00 Test Item Value Reference Range Interpretation Comments LITHIUM (test code = 2038) 0.39 MEQ/L [id number] 00:00:00 Test Item Value Reference Range Interpretation Comments LITHIUM (test code = 2038) 0.39 MEQ/L [id number] 00:00:00 Test Item Value Reference Range Interpretation Comments LITHIUM (test code = 2038) 0.39 MEQ/L COMPREHENSIVE METABOLIC [id number] 00:00:00 Test Item Value Reference Range Interpretation Comments GLUCOSE (test code = 2216) 109 MG/DL BUN (test code = 8) 14 MG/DL CREATININE (test code = 2214) 0.64 MG/DL eGFR (2020 CKD-EPI) (test 106 ML/MIN/1.73 code = 02376) CALC BUN/CREAT (test code = 22 RATIO 2235) SODIUM (test code = 2231) 141 MEQ/L POTASSIUM (test code = 2228) 4.6 MEQ/L CHLORIDE (test code = 2215) 108 MEQ/L CARBON DIOXIDE (test code = 26 MEQ/L 2205) CALCIUM (test code = 2208) 11.2 MG/DL PROTEIN, TOTAL (test code = [...] code = 2219) 43 U/L COMPREHENSIVE METABOLIC [id number] 00:00:00 Test Item Value Reference Range Interpretation Comments GLUCOSE (test code = 2217) 109 MG/DL BUN (test code = 2208) 14 MG/DL CREATININE (test code = 2214) 0.64 MG/DL eGFR (2020 CKD-EPI) (test 106 ML/MIN/1.73 code = 08614) CALC BUN/CREAT (test code = 22 RATIO [...] RATIO 4) BILIRUBIN, TOTAL (test code = 0.4 MG/DL 2206) ALKALINE PHOSPHATASE (test 102 U/L code = 2204) AST (test code = 2218) 24 U/L ALT (test code = 2219) 43 U/L LIPID [id number] 00:00:00 Test Item Value Reference Range Interpretation Comments CHOLESTEROL (test code = 2210) 173 MG/DL TRIGLYCERIDES (test code = 2232) 248 MG/DL HDL CHOLESTEROL (test code = 2220) 33 MG/DL CALC LDL CHOL (test code = 2237) 105 MG/DL RISK RATIO LDL/HDL (test code = 3.18 RATIO 2238) LIPID [id number] 00:00:00 Test Item Value Reference Range Interpretation Comments CHOLESTEROL (test code = 2210) 173 MG/DL TRIGLYCERIDES (test code = 2232) 248 MG/DL HDL CHOLESTEROL (test code = 2220) 33 MG/DL CALC LDL CHOL (test code = 2237) 105 MG/DL RISK RATIO LDL/HDL (test code = 3.18 RATIO 2238) [id number] 00:00:00 Test Item Value Reference Range Interpretation Comments TSH, THIRD GENERATION (test code 1.470 UIU/ML = 2821) [id number] 00:00:00 Test Item Value Reference Range Interpretation Comments TSH, THIRD GENERATION (test code 1.470 UIU/ML = 2821) [id number] 00:00:00 Test Item Value Reference Range Interpretation Comments TSH, THIRD GENERATION (test code 1.470 UIU/ML = 2821) VITAMIN D, 25 [id number] 00:00:00 Test Item Value Reference Range Interpretation Comments VITAMIN D, 25 OH (test code = 4958) 20 NG/ML VITAMIN D, 25 [id number] 00:00:00 Test Item Value Reference Range Interpretation Comments VITAMIN D, 25 OH (test code = 4958) 20 NG/ML [id number] 00:00:00 Test Item Value Reference Range Interpretation Comments LITHIUM (test code = 2038) 0.39 MEQ/L [id number] 00:00:00 Test Item Value Reference Range Interpretation Comments LITHIUM (test code = 2038) 0.39 MEQ/L [id number] 00:00:00 Test Item Value Reference Range Interpretation Comments LITHIUM (test code = 2038) 0.39 MEQ/L COMPREHENSIVE METABOLIC [id number] 00:00:00 Test Item Value Reference Range Interpretation Comments GLUCOSE (test code = 2216) 109 MG/DL BUN (test code = 2208) 14 MG/DL CREATININE (test code = 2214) 0.64 MG/DL eGFR (2020 CKD-EPI) (test 106 ML/MIN/1.73 code = 49005) CALC BUN/CREAT (test code = 22 RATIO 2235) SODIUM (test code = 2231) 141 MEQ/L POTASSIUM (test code = 2228) 4.6 MEQ/L CHLORIDE (test code = 2215) 108 MEQ/L CARBON DIOXIDE (test code = 26 MEQ/L 2205) CALCIUM (test code = 9) 11.2 MG/DL PROTEIN, TOTAL (test code = [...] code = 2219) 43 U/L COMPREHENSIVE METABOLIC [id number] 00:00:00 Test Item Value Reference Range Interpretation Comments GLUCOSE (test code = 2217) 109 MG/DL BUN (test code = 2208) 14 MG/DL CREATININE (test code = 2214) 0.64 MG/DL eGFR (2020 CKD-EPI) (test 106 ML/MIN/1.73 code = 36719) CALC BUN/CREAT (test code = 22 RATIO [...] (test code = 2219) 43 U/L LIPID [id number] 00:00:00 Test Item Value Reference Range Interpretation Comments CHOLESTEROL (test code = 2210) 173 MG/DL TRIGLYCERIDES (test code = 2232) 248 MG/DL HDL CHOLESTEROL (test code = 2220) 33 MG/DL CALC LDL CHOL (test code = 2237) 105 MG/DL RISK RATIO LDL/HDL (test code = 3.18 RATIO 2238) LIPID [id number] 00:00:00 Test Item Value Reference Range Interpretation Comments CHOLESTEROL (test code = 2210) 173 MG/DL TRIGLYCERIDES (test code = 2232) 248 MG/DL HDL CHOLESTEROL (test code = 2220) 33 MG/DL CALC LDL CHOL (test code = 2237) 105 MG/DL RISK RATIO LDL/HDL (test code = 3.18 RATIO 2238) [id number] 00:00:00 Test Item Value Reference Range Interpretation Comments TSH, THIRD GENERATION (test code 1.470 UIU/ML = 2821) [id number] 00:00:00 Test Item Value Reference Range Interpretation Comments TSH, THIRD GENERATION (test code 1.470 UIU/ML = 2821) [id number] 00:00:00 Test Item Value Reference Range Interpretation Comments TSH, THIRD GENERATION (test code 1.470 UIU/ML = 2821) VITAMIN D, 25 [id number] 00:00:00 Test Item Value Reference Range Interpretation Comments VITAMIN D, 25 OH (test code = 4958) 20 NG/ML VITAMIN D, 25 [id number] 00:00:00 Test Item Value Reference Range Interpretation Comments VITAMIN D, 25 OH (test code = 4958) 20 NG/ML [id number] 00:00:00 Test Item Value Reference Range Interpretation Comments LITHIUM (test code = 2038) 0.39 MEQ/L [id number] 00:00:00 Test Item Value Reference Range Interpretation Comments LITHIUM (test code = 2038) 0.39 MEQ/L [id number] 00:00:00 Test Item Value Reference Range Interpretation Comments LITHIUM (test code = 2038) 0.39 MEQ/L COMPREHENSIVE METABOLIC [id number] 00:00:00 Test Item Value Reference Range Interpretation Comments GLUCOSE (test code = 2217) 109 MG/DL BUN (test code = 2208) 14 MG/DL CREATININE (test code = 2214) 0.64 MG/DL eGFR (2020 CKD-EPI) (test 106 ML/MIN/1.73 code = 77027) CALC BUN/CREAT (test code = 22 RATIO 2234) SODIUM (test code = 2231) [...] code = 2219) 43 U/L COMPREHENSIVE METABOLIC [id number] 00:00:00 Test Item Value Reference Range Interpretation Comments GLUCOSE (test code = 2217) 109 MG/DL BUN (test code = 2208) 14 MG/DL CREATININE (test code = 2214) 0.64 MG/DL eGFR (2020 CKD-EPI) (test 106 ML/MIN/1.73 code = 05319) CALC BUN/CREAT (test code = 22 RATIO [...] (test code = 2219) 43 U/L LIPID [id number] 00:00:00 Test Item Value Reference Range Interpretation Comments CHOLESTEROL (test code = 2210) 173 MG/DL TRIGLYCERIDES (test code = 2232) 248 MG/DL HDL CHOLESTEROL (test code = 2220) 33 MG/DL CALC LDL CHOL (test code = 2237) 105 MG/DL RISK RATIO LDL/HDL (test code = 3.18 RATIO 2238) LIPID [id number] 00:00:00 Test Item Value Reference Range Interpretation Comments CHOLESTEROL (test code = 2210) 173 MG/DL TRIGLYCERIDES (test code = 2232) 248 MG/DL HDL CHOLESTEROL (test code = 2220) 33 MG/DL CALC LDL CHOL (test code = 2237) 105 MG/DL RISK RATIO LDL/HDL (test code = 3.18 RATIO 2238) [id number] 00:00:00 Test Item Value Reference Range Interpretation Comments TSH, THIRD GENERATION (test code 1.470 UIU/ML = 2821) [id number] 00:00:00 Test Item Value Reference Range Interpretation Comments TSH, THIRD GENERATION (test code 1.470 UIU/ML = 2821) [id number] 00:00:00 Test Item Value Reference Range Interpretation Comments TSH, THIRD GENERATION (test code 1.470 UIU/ML = 2821) VITAMIN D, 25 [id number] 00:00:00 Test Item Value Reference Range Interpretation Comments VITAMIN D, 25 OH (test code = 4958) 20 NG/ML VITAMIN D, 25 [id number] 00:00:00 Test Item Value Reference Range Interpretation Comments VITAMIN D, 25 OH (test code = 4958) 20 NG/ML [id number] 00:00:00 Test Item Value Reference Range Interpretation Comments LITHIUM (test code = 2038) 0.39 MEQ/L [id number] 00:00:00 Test Item Value Reference Range Interpretation Comments LITHIUM (test code = 2038) 0.39 MEQ/L [id number] 00:00:00 Test Item Value Reference Range Interpretation Comments LITHIUM (test code = 2038) 0.39 MEQ/L COMPREHENSIVE METABOLIC [id number] 00:00:00 Test Item Value Reference Range Interpretation Comments GLUCOSE (test code = 2217) 109 MG/DL BUN (test code = 2208) 14 MG/DL CREATININE (test code = 2214) 0.64 MG/DL eGFR (2020 CKD-EPI) (test 106 ML/MIN/1.73 code = 88977) CALC BUN/CREAT (test code = 22 RATIO [...] code = 2219) 43 U/L COMPREHENSIVE METABOLIC [id number] 00:00:00 Test Item Value Reference Range Interpretation Comments GLUCOSE (test code = 2217) 109 MG/DL BUN (test code = 2208) 14 MG/DL CREATININE (test code = 2214) 0.64 MG/DL eGFR (2021 CKD-EPI) (test 106 ML/MIN/1.73 code = 95425) CALC BUN/CREAT (test code = 22 RATIO [...] (test code = 2219) 43 U/L LIPID [id number] 00:00:00 Test Item Value Reference Range Interpretation Comments CHOLESTEROL (test code = 2210) 173 MG/DL TRIGLYCERIDES (test code = 2232) 248 MG/DL HDL CHOLESTEROL (test code = 2220) 33 MG/DL CALC LDL CHOL (test code = 2237) 105 MG/DL RISK RATIO LDL/HDL (test code = 3.18 RATIO 2238) LIPID [id number] 00:00:00 Test Item Value Reference Range Interpretation Comments CHOLESTEROL (test code = 2210) 173 MG/DL TRIGLYCERIDES (test code = 2232) 248 MG/DL HDL CHOLESTEROL (test code = 2220) 33 MG/DL CALC LDL CHOL (test code = 2237) 105 MG/DL RISK RATIO LDL/HDL (test code = 3.18 RATIO 2238) [id number] 00:00:00 Test Item Value Reference Range Interpretation Comments TSH, THIRD GENERATION (test code 1.470 UIU/ML = 2821) [id number] 00:00:00 Test Item Value Reference Range Interpretation Comments TSH, THIRD GENERATION (test code 1.470 UIU/ML = 2821) [id number] 00:00:00 Test Item Value Reference Range Interpretation Comments TSH, THIRD GENERATION (test code 1.470 UIU/ML = 2821) VITAMIN D, 25 [id number] 00:00:00 Test Item Value Reference Range Interpretation Comments VITAMIN D, 25 OH (test code = 4958) 20 NG/ML VITAMIN D, 25 [id number] 00:00:00 Test Item Value Reference Range Interpretation Comments VITAMIN D, 25 OH (test code = 4958) 20 NG/ML [id number] 00:00:00 Test Item Value Reference Range Interpretation Comments LITHIUM (test code = 2038) 0.39 MEQ/L [id number] 00:00:00 Test Item Value Reference Range Interpretation Comments LITHIUM (test code = 2038) 0.39 MEQ/L [id number] 00:00:00 Test Item Value Reference Range Interpretation Comments LITHIUM (test code = 2038) 0.39 MEQ/L COMPREHENSIVE METABOLIC [id number] 00:00:00 Test Item Value Reference Range Interpretation Comments GLUCOSE (test code = 2217) 109 MG/DL BUN (test code = 2208) 14 MG/DL CREATININE (test code = 2214) 0.64 MG/DL eGFR (2020 CKD-EPI) (test 106 ML/MIN/1.73 code = 64619) CALC BUN/CREAT (test code = 22 RATIO [...] RATIO 4) BILIRUBIN, TOTAL (test code = 0.4 MG/DL 2206) ALKALINE PHOSPHATASE (test 102 U/L code = 2204) AST (test code = 2218) 24 U/L ALT (test code = 2219) 43 U/L COMPREHENSIVE METABOLIC [id number] 00:00:00 Test Item Value Reference Range Interpretation Comments GLUCOSE (test code = 2217) 109 MG/DL BUN (test code = 2208) 14 MG/DL CREATININE (test code = 2214) 0.64 MG/DL eGFR (2020 CKD-EPI) (test 106 ML/MIN/1.73 code = 45405) CALC BUN/CREAT (test code = 22 RATIO [...] (test code = 2219) 43 U/L LIPID [id number] 00:00:00 Test Item Value Reference Range Interpretation Comments CHOLESTEROL (test code = 2210) 173 MG/DL TRIGLYCERIDES (test code = 2232) 248 MG/DL HDL CHOLESTEROL (test code = 2220) 33 MG/DL CALC LDL CHOL (test code = 2237) 105 MG/DL RISK RATIO LDL/HDL (test code = 3.18 RATIO 2238) LIPID [id number] 00:00:00 Test Item Value Reference Range Interpretation Comments CHOLESTEROL (test code = 2210) 173 MG/DL TRIGLYCERIDES (test code = 2232) 248 MG/DL HDL CHOLESTEROL (test code = 2220) 33 MG/DL CALC LDL CHOL (test code = 2237) 105 MG/DL RISK RATIO LDL/HDL (test code = 3.18 RATIO 2238) [id number] 00:00:00 Test Item Value Reference Range Interpretation Comments TSH, THIRD GENERATION (test code 1.470 UIU/ML = 2821) [id number] 00:00:00 Test Item Value Reference Range Interpretation Comments TSH, THIRD GENERATION (test code 1.470 UIU/ML = 2821) [id number] 00:00:00 Test Item Value Reference Range Interpretation Comments TSH, THIRD GENERATION (test code 1.470 UIU/ML = 2821) VITAMIN D, 25 [id number] 00:00:00 Test Item Value Reference Range Interpretation Comments VITAMIN D, 25 OH (test code = 4958) 20 NG/ML VITAMIN D, 25 [id number] 00:00:00 Test Item Value Reference Range Interpretation Comments VITAMIN D, 25 OH (test code = 4958) 20 NG/ML [id number] 00:00:00 Test Item Value Reference Range Interpretation Comments LITHIUM (test code = 2038) 0.39 MEQ/L [id number] 00:00:00 Test Item Value Reference Range Interpretation Comments LITHIUM (test code = 2038) 0.39 MEQ/L [id number] 00:00:00 Test Item Value Reference Range Interpretation Comments LITHIUM (test code = 2038) 0.39 MEQ/L COMPREHENSIVE METABOLIC [id number] 00:00:00 Test Item Value Reference Range Interpretation Comments GLUCOSE (test code = 7) 109 MG/DL BUN (test code = 8) 14 MG/DL CREATININE (test code = 2214) 0.64 MG/DL eGFR (2020 CKD-EPI) (test 106 ML/MIN/1.73 code = 98023) CALC BUN/CREAT (test code = 22 RATIO 5) SODIUM (test code = 2231) 141 MEQ/L [...] code = 2219) 43 U/L COMPREHENSIVE METABOLIC [id number] 00:00:00 Test Item Value Reference Range Interpretation Comments GLUCOSE (test code = 2217) 109 MG/DL BUN (test code = 2208) 14 MG/DL CREATININE (test code = 2214) 0.64 MG/DL eGFR (2020 CKD-EPI) (test 106 ML/MIN/1.73 code = 11343) CALC BUN/CREAT (test code = 22 RATIO [...] (test code = 2219) 43 U/L LIPID [id number] 00:00:00 Test Item Value Reference Range Interpretation Comments CHOLESTEROL (test code = 2210) 173 MG/DL TRIGLYCERIDES (test code = 2232) 248 MG/DL HDL CHOLESTEROL (test code = 2220) 33 MG/DL CALC LDL CHOL (test code = 2237) 105 MG/DL RISK RATIO LDL/HDL (test code = 3.18 RATIO 2238) LIPID [id number] 00:00:00 Test Item Value Reference Range Interpretation Comments CHOLESTEROL (test code = 2210) 173 MG/DL TRIGLYCERIDES (test code = 2232) 248 MG/DL HDL CHOLESTEROL (test code = 2220) 33 MG/DL CALC LDL CHOL (test code = 2237) 105 MG/DL RISK RATIO LDL/HDL (test code = 3.18 RATIO 2238) [id number] 00:00:00 Test Item Value Reference Range Interpretation Comments TSH, THIRD GENERATION (test code 1.470 UIU/ML = 2821) [id number] 00:00:00 Test Item Value Reference Range Interpretation Comments TSH, THIRD GENERATION (test code 1.470 UIU/ML = 2821) [id number] 00:00:00 Test Item Value Reference Range Interpretation Comments TSH, THIRD GENERATION (test code 1.470 UIU/ML = 2821) VITAMIN D, 25 [id number] 00:00:00 Test Item Value Reference Range Interpretation Comments VITAMIN D, 25 OH (test code = 4958) 20 NG/ML VITAMIN D, 25 [id number] 00:00:00 Test Item Value Reference Range Interpretation Comments VITAMIN D, 25 OH (test code = 4958) 20 NG/ML [id number] 00:00:00 Test Item Value Reference Range Interpretation Comments LITHIUM (test code = 2038) 0.39 MEQ/L [id number] 00:00:00 Test Item Value Reference Range Interpretation Comments LITHIUM (test code = 2038) 0.39 MEQ/L [id number] 00:00:00 Test Item Value Reference Range Interpretation Comments LITHIUM (test code = 2038) 0.39 MEQ/L COMPREHENSIVE METABOLIC [id number] 00:00:00 Test Item Value Reference Range Interpretation Comments GLUCOSE (test code = 7) 109 MG/DL BUN (test code = 8) 14 MG/DL CREATININE (test code = 2214) 0.64 MG/DL eGFR (2020 CKD-EPI) (test 106 ML/MIN/1.73 code = 53641) CALC BUN/CREAT (test code = 22 RATIO 5) SODIUM (test code = 2231) 141 MEQ/L [...] code = 2219) 43 U/L COMPREHENSIVE METABOLIC [id number] 00:00:00 Test Item Value Reference Range Interpretation Comments GLUCOSE (test code = 2217) 109 MG/DL BUN (test code = 2208) 14 MG/DL CREATININE (test code = 2214) 0.64 MG/DL eGFR (2020 CKD-EPI) (test 106 ML/MIN/1.73 code = 86558) CALC BUN/CREAT (test code = 22 RATIO [...] (test code = 2219) 43 U/L LIPID [id number] 00:00:00 Test Item Value Reference Range Interpretation Comments CHOLESTEROL (test code = 2210) 173 MG/DL TRIGLYCERIDES (test code = 2232) 248 MG/DL HDL CHOLESTEROL (test code = 2220) 33 MG/DL CALC LDL CHOL (test code = 2237) 105 MG/DL RISK RATIO LDL/HDL (test code = 3.18 RATIO 2238) LIPID [id number] 00:00:00 Test Item Value Reference Range Interpretation Comments CHOLESTEROL (test code = 2210) 173 MG/DL TRIGLYCERIDES (test code = 2232) 248 MG/DL HDL CHOLESTEROL (test code = 2220) 33 MG/DL CALC LDL CHOL (test code = 2237) 105 MG/DL RISK RATIO LDL/HDL (test code = 3.18 RATIO 2238) [id number] 00:00:00 Test Item Value Reference Range Interpretation Comments TSH, THIRD GENERATION (test code 1.470 UIU/ML = 2821) [id number] 00:00:00 Test Item Value Reference Range Interpretation Comments TSH, THIRD GENERATION (test code 1.470 UIU/ML = 2821) [id number] 00:00:00 Test Item Value Reference Range Interpretation Comments TSH, THIRD GENERATION (test code 1.470 UIU/ML = 2821) VITAMIN D, 25 [id number] 00:00:00 Test Item Value Reference Range Interpretation Comments VITAMIN D, 25 OH (test code = 4958) 20 NG/ML VITAMIN D, 25 [id number] 00:00:00 Test Item Value Reference Range Interpretation Comments VITAMIN D, 25 OH (test code = 4958) 20 NG/ML [id number] 00:00:00 Test Item Value Reference Range Interpretation Comments LITHIUM (test code = 2038) 0.39 MEQ/L [id number] 00:00:00 Test Item Value Reference Range Interpretation Comments LITHIUM (test code = 2038) 0.39 MEQ/L [id number] 00:00:00 Test Item Value Reference Range Interpretation Comments LITHIUM (test code = 203) 0.39 MEQ/L COMPREHENSIVE METABOLIC [id number] 00:00:00 Test Item Value Reference Range Interpretation Comments GLUCOSE (test code = 2217) 109 MG/DL BUN (test code = 2208) 14 MG/DL CREATININE (test code = 2214) 0.64 MG/DL eGFR (2020 CKD-EPI) (test 106 ML/MIN/1.73 code = 59530) CALC BUN/CREAT (test code = 22 RATIO 5) SODIUM (test code = 2231) 141 MEQ/L [...] code = 2219) 43 U/L COMPREHENSIVE METABOLIC [id number] 00:00:00 Test Item Value Reference Range Interpretation Comments GLUCOSE (test code = 2217) 109 MG/DL BUN (test code = 2208) 14 MG/DL CREATININE (test code = 2214) 0.64 MG/DL eGFR (2020 CKD-EPI) (test 106 ML/MIN/1.73 code = 32942) CALC BUN/CREAT (test code = 22 RATIO [...] code = 2219) 43 U/L COMPREHENSIVE METABOLIC [id number] 00:00:00 Test Item Value Reference Range Interpretation Comments GLUCOSE (test code = 2217) 109 MG/DL BUN (test code = 2208) 14 MG/DL CREATININE (test code = 2214) 0.64 MG/DL eGFR (2020 CKD-EPI) (test 106 ML/MIN/1.73 code = 69293) CALC BUN/CREAT (test code = 22 RATIO [...] (test code = 2219) 43 U/L LIPID [id number] 00:00:00 Test Item Value Reference Range Interpretation Comments CHOLESTEROL (test code = 2210) 112 MG/DL TRIGLYCERIDES (test code = 2232) 140 MG/DL HDL CHOLESTEROL (test code = 2220) 34 MG/DL CALC LDL CHOL (test code = 2237) 56 MG/DL RISK RATIO LDL/HDL (test code = 1.65 RATIO 2238) LIPID [id number] 00:00:00 Test Item Value Reference Range Interpretation Comments CHOLESTEROL (test code = 2210) 112 MG/DL TRIGLYCERIDES (test code = 2232) 140 MG/DL HDL CHOLESTEROL (test code = 2220) 34 MG/DL CALC LDL CHOL (test code = 2237) 56 MG/DL RISK RATIO LDL/HDL (test code = 1.65 RATIO 2238) COMPREHENSIVE METABOLIC [id number] 00:00:00 Test Item Value Reference Range Interpretation Comments GLUCOSE (test code = 2217) 109 MG/DL BUN (test code = 2208) 11 MG/DL CREATININE (test code = 2214) 0.68 MG/DL eGFR AMER. (test code 116 ML/MIN/1.73 = 38249) eGFR NON- AMER. (test 100 ML/MIN/1.73 code = 26355) CALC BUN/CREAT (test code = 16 RATIO [...] code = 2219) 29 U/L COMPREHENSIVE METABOLIC [id number] 00:00:00 Test Item Value Reference Range Interpretation Comments GLUCOSE (test code = 2217) 109 MG/DL BUN (test code = 2208) 11 MG/DL CREATININE (test code = 2214) 0.68 MG/DL eGFR AMER. (test code 116 ML/MIN/1.73 = 50462) eGFR NON- AMER. (test 100 ML/MIN/1.73 code = 04225) CALC BUN/CREAT (test code = 16 RATIO [...] (test code = 2219) 29 U/L LIPID [id number] 00:00:00 Test Item Value Reference Range Interpretation Comments CHOLESTEROL (test code = 2210) 112 MG/DL TRIGLYCERIDES (test code = 2232) 140 MG/DL HDL CHOLESTEROL (test code = 2220) 34 MG/DL CALC LDL CHOL (test code = 2237) 56 MG/DL RISK RATIO LDL/HDL (test code = 1.65 RATIO 2238) VITAMIN D, 25 [id number] 00:00:00 Test Item Value Reference Range Interpretation Comments VITAMIN D, 25 OH (test code = 4958) 20 NG/ML VITAMIN D, 25 [id number] 00:00:00 Test Item Value Reference Range Interpretation Comments VITAMIN D, 25 OH (test code = 4958) 20 NG/ML COMPREHENSIVE METABOLIC [id number] 00:00:00 Test Item Value Reference Range Interpretation Comments GLUCOSE (test code = 2217) 109 MG/DL BUN (test code = 2208) 11 MG/DL CREATININE (test code = 2214) 0.68 MG/DL eGFR AMER. (test code 116 ML/MIN/1.73 = 70251) eGFR NON- AMER. (test 100 ML/MIN/1.73 code = 48951) CALC BUN/CREAT (test code = 16 RATIO [...] = 2203) AST (test code = 2218) 19 U/L ALT (test code = 2219) 29 U/L [id number] 00:00:00 Test Item Value Reference Range Interpretation Comments LITHIUM (test code = 2038) 0.38 MEQ/L [id number] 00:00:00 Test Item Value Reference Range Interpretation Comments LITHIUM (test code = 2038) 0.38 MEQ/L [id number] 00:00:00 Test Item Value Reference Range Interpretation Comments LITHIUM (test code = 2038) 0.38 MEQ/L THYROID II PROFILE (T3U, T4, T7, TSH)2020-10-05 00:00:00 Test Item Value Reference Range Interpretation Comments T-UPTAKE (test code = 2816) 30.2 % THYROX. BIND. CAPAC. (test code 1.1 = 03573) T4 (THYROXINE) (test code = 4.4 UG/DL 2818) CORRECTED T4 (FTI) (test code = 4.0 UG/DL 2820) TSH, THIRD GENERATION (test code 4.570 UIU/ML = 2821) THYROID II PROFILE (T3U, T4, T7, TSH)2020-10-05 00:00:00 Test Item Value Reference Range Interpretation Comments T-UPTAKE (test code = 281) 30.2 % THYROX. BIND. CAPAC. (test code 1.1 = 99815) T4 (THYROXINE) (test code = 4.4 UG/DL 2819) CORRECTED T4 (FTI) (test code = 4.0 UG/DL 2820) TSH, THIRD GENERATION (test code 4.570 UIU/ML = 2821) VITAMIN D, 25 [id number] 00:00:00 Test Item Value Reference Range Interpretation Comments VITAMIN D, 25 OH (test code = 4958) 20 NG/ML [id number] 00:00:00 Test Item Value Reference Range Interpretation Comments LITHIUM (test code = 2038) 0.38 MEQ/L [id number] 00:00:00 Test Item Value Reference Range Interpretation Comments LITHIUM (test code = 2038) 0.38 MEQ/L THYROID II PROFILE (T3U, T4, T7, TSH)2020-10-05 00:00:00 Test Item Value Reference Range Interpretation Comments T-UPTAKE (test code = 2816) 30.2 % THYROX. BIND. CAPAC. (test code 1.1 = 34232) T4 (THYROXINE) (test code = 4.4 UG/DL 9) CORRECTED T4 (FTI) (test code = 4.0 UG/DL 2820) TSH, THIRD GENERATION (test code 4.570 UIU/ML = 2821) CBC W/AUTO [id number] 00:00:00 Test Item Value Reference Range Interpretation [...] NUCLEATED RBCS (test code = 0.00 K/UL 10019) CBC W/AUTO [id number] 00:00:00 Test Item Value Reference Range Interpretation [...] NUCLEATED RBCS (test code = 0.00 K/UL 14399) CBC W/AUTO [id number] 00:00:00 Test Item Value Reference Range Interpretation [...] NUCLEATED RBCS (test code = 0.00 K/UL 75384) LIPID [id number] 00:00:00 Test Item Value Reference Range Interpretation Comments CHOLESTEROL (test code = 2210) 112 MG/DL TRIGLYCERIDES (test code = 2232) 140 MG/DL HDL CHOLESTEROL (test code = 2220) 34 MG/DL CALC LDL CHOL (test code = 2237) 56 MG/DL RISK RATIO LDL/HDL (test code = 1.65 RATIO 2238) LIPID [id number] 00:00:00 Test Item Value Reference Range Interpretation Comments CHOLESTEROL (test code = 2210) 112 MG/DL TRIGLYCERIDES (test code = 2232) 140 MG/DL HDL CHOLESTEROL (test code = 2220) 34 MG/DL CALC LDL CHOL (test code = 2237) 56 MG/DL RISK RATIO LDL/HDL (test code = 1.65 RATIO 2238) COMPREHENSIVE METABOLIC [id number] 00:00:00 Test Item Value Reference Range Interpretation Comments GLUCOSE (test code = 2217) 109 MG/DL BUN (test code = 2208) 11 MG/DL CREATININE (test code = 2214) 0.68 MG/DL eGFR AMER. (test code 116 ML/MIN/1.73 = 31972) eGFR NON- AMER. (test 100 ML/MIN/1.73 code = 52927) CALC BUN/CREAT (test code = 16 RATIO [...] code = 2219) 29 U/L COMPREHENSIVE METABOLIC [id number] 00:00:00 Test Item Value Reference Range Interpretation Comments GLUCOSE (test code = 2217) 109 MG/DL BUN (test code = 2208) 11 MG/DL CREATININE (test code = 2214) 0.68 MG/DL eGFR AMER. (test code 116 ML/MIN/1.73 = 93780) eGFR NON- AMER. (test 100 ML/MIN/1.73 code = 98469) CALC BUN/CREAT (test code = 16 RATIO [...] = 2219) 29 U/L VITAMIN D, 25 [id number] 00:00:00 Test Item Value Reference Range Interpretation Comments VITAMIN D, 25 OH (test code = 4958) 20 NG/ML VITAMIN D, 25 [id number] 00:00:00 Test Item Value Reference Range Interpretation Comments VITAMIN D, 25 OH (test code = 4958) 20 NG/ML [id number] 00:00:00 Test Item Value Reference Range Interpretation Comments LITHIUM (test code = 2038) 0.38 MEQ/L [id number] 00:00:00 Test Item Value Reference Range Interpretation Comments LITHIUM (test code = 2038) 0.38 MEQ/L [id number] 00:00:00 Test Item Value Reference Range Interpretation Comments LITHIUM (test code = 2038) 0.38 MEQ/L THYROID II PROFILE (T3U, T4, T7, TSH)2020-10-05 00:00:00 Test Item Value Reference Range Interpretation Comments T-UPTAKE (test code = 2816) 30.2 % THYROX. BIND. CAPAC. (test code 1.1 = 53103) T4 (THYROXINE) (test code = 4.4 UG/DL 2819) CORRECTED T4 (FTI) (test code = 4.0 UG/DL 2820) TSH, THIRD GENERATION (test code 4.570 UIU/ML = 2821) THYROID II PROFILE (T3U, T4, T7, TSH)2020-10-05 00:00:00 Test Item Value Reference Range Interpretation Comments T-UPTAKE (test code = 281) 30.2 % THYROX. BIND. CAPAC. (test code 1.1 = 02248) T4 (THYROXINE) (test code = 4.4 UG/DL 2819) CORRECTED T4 (FTI) (test code = 4.0 UG/DL 2820) TSH, THIRD GENERATION (test code 4.570 UIU/ML = 2821) CBC W/AUTO [id number] 00:00:00 Test Item Value Reference Range Interpretation [...] NUCLEATED RBCS (test code = 0.00 K/UL 73978) CBC W/AUTO [id number] 00:00:00 Test Item Value Reference Range Interpretation [...] NUCLEATED RBCS (test code = 0.00 K/UL 26457) CBC W/AUTO [id number] 00:00:00 Test Item Value Reference Range Interpretation [...] NUCLEATED RBCS (test code = 0.00 K/UL 34137) LIPID [id number] 00:00:00 Test Item Value Reference Range Interpretation Comments CHOLESTEROL (test code = 2210) 112 MG/DL TRIGLYCERIDES (test code = 2232) 140 MG/DL HDL CHOLESTEROL (test code = 2220) 34 MG/DL CALC LDL CHOL (test code = 2237) 56 MG/DL RISK RATIO LDL/HDL (test code = 1.65 RATIO 2238) LIPID [id number] 00:00:00 Test Item Value Reference Range Interpretation Comments CHOLESTEROL (test code = 2210) 112 MG/DL TRIGLYCERIDES (test code = 2232) 140 MG/DL HDL CHOLESTEROL (test code = 2220) 34 MG/DL CALC LDL CHOL (test code = 2237) 56 MG/DL RISK RATIO LDL/HDL (test code = 1.65 RATIO 2238) COMPREHENSIVE METABOLIC [id number] 00:00:00 Test Item Value Reference Range Interpretation Comments GLUCOSE (test code = 2217) 109 MG/DL BUN (test code = 2208) 11 MG/DL CREATININE (test code = 2214) 0.68 MG/DL eGFR AMER. (test code 116 ML/MIN/1.73 = 36642) eGFR NON- AMER. (test 100 ML/MIN/1.73 code = 09257) CALC BUN/CREAT (test code = 16 RATIO [...] code = 2219) 29 U/L COMPREHENSIVE METABOLIC [id number] 00:00:00 Test Item Value Reference Range Interpretation Comments GLUCOSE (test code = 2217) 109 MG/DL BUN (test code = 2208) 11 MG/DL CREATININE (test code = 2214) 0.68 MG/DL eGFR AMER. (test code 116 ML/MIN/1.73 = 54708) eGFR NON- AMER. (test 100 ML/MIN/1.73 code = 66205) CALC BUN/CREAT (test code = 16 RATIO [...] = 2219) 29 U/L VITAMIN D, 25 [id number] 00:00:00 Test Item Value Reference Range Interpretation Comments VITAMIN D, 25 OH (test code = 4958) 20 NG/ML VITAMIN D, 25 [id number] 00:00:00 Test Item Value Reference Range Interpretation Comments VITAMIN D, 25 OH (test code = 4958) 20 NG/ML [id number] 00:00:00 Test Item Value Reference Range Interpretation Comments LITHIUM (test code = 2038) 0.38 MEQ/L [id number] 00:00:00 Test Item Value Reference Range Interpretation Comments LITHIUM (test code = 203) 0.38 MEQ/L [id number] 00:00:00 Test Item Value Reference Range Interpretation Comments LITHIUM (test code = 203) 0.38 MEQ/L THYROID II PROFILE (T3U, T4, T7, TSH)2020-10-05 00:00:00 Test Item Value Reference Range Interpretation Comments T-UPTAKE (test code = 2817) 30.2 % THYROX. BIND. CAPAC. (test code 1.1 = 17479) T4 (THYROXINE) (test code = 4.4 UG/DL 2819) CORRECTED T4 (FTI) (test code = 4.0 UG/DL 2820) TSH, THIRD GENERATION (test code 4.570 UIU/ML = 2821) THYROID II PROFILE (T3U, T4, T7, TSH)2020-10-05 00:00:00 Test Item Value Reference Range Interpretation Comments T-UPTAKE (test code = 2817) 30.2 % THYROX. BIND. CAPAC. (test code 1.1 = 09143) T4 (THYROXINE) (test code = 4.4 UG/DL 2819) CORRECTED T4 (FTI) (test code = 4.0 UG/DL 2820) TSH, THIRD GENERATION (test code 4.570 UIU/ML = 2821) CBC W/AUTO [id number] 00:00:00 Test Item Value Reference Range Interpretation [...] NUCLEATED RBCS (test code = 0.00 K/UL 76057) CBC W/AUTO [id number] 00:00:00 Test Item Value Reference Range Interpretation [...] NUCLEATED RBCS (test code = 0.00 K/UL 35446) CBC W/AUTO [id number] 00:00:00 Test Item Value Reference Range Interpretation [...] NUCLEATED RBCS (test code = 0.00 K/UL 68558) LIPID [id number] 00:00:00 Test Item Value Reference Range Interpretation Comments CHOLESTEROL (test code = 2210) 112 MG/DL TRIGLYCERIDES (test code = 2232) 140 MG/DL HDL CHOLESTEROL (test code = 2220) 34 MG/DL CALC LDL CHOL (test code = 2237) 56 MG/DL RISK RATIO LDL/HDL (test code = 1.65 RATIO 2238) LIPID [id number] 00:00:00 Test Item Value Reference Range Interpretation Comments CHOLESTEROL (test code = 2210) 112 MG/DL TRIGLYCERIDES (test code = 2232) 140 MG/DL HDL CHOLESTEROL (test code = 2220) 34 MG/DL CALC LDL CHOL (test code = 2237) 56 MG/DL RISK RATIO LDL/HDL (test code = 1.65 RATIO 2238) COMPREHENSIVE METABOLIC [id number] 00:00:00 Test Item Value Reference Range Interpretation Comments GLUCOSE (test code = 2217) 109 MG/DL BUN (test code = 2208) 11 MG/DL CREATININE (test code = 2214) 0.68 MG/DL eGFR AMER. (test code 116 ML/MIN/1.73 = 31313) eGFR NON- AMER. (test 100 ML/MIN/1.73 code = 08879) CALC BUN/CREAT (test code = 16 RATIO [...] code = 2219) 29 U/L COMPREHENSIVE METABOLIC [id number] 00:00:00 Test Item Value Reference Range Interpretation Comments GLUCOSE (test code = 2217) 109 MG/DL BUN (test code = 2208) 11 MG/DL CREATININE (test code = 2214) 0.68 MG/DL eGFR AMER. (test code 116 ML/MIN/1.73 = 61378) eGFR NON- AMER. (test 100 ML/MIN/1.73 code = 93671) CALC BUN/CREAT (test code = 16 RATIO [...] = 2219) 29 U/L VITAMIN D, 25 [id number] 00:00:00 Test Item Value Reference Range Interpretation Comments VITAMIN D, 25 OH (test code = 4958) 20 NG/ML VITAMIN D, 25 [id number] 00:00:00 Test Item Value Reference Range Interpretation Comments VITAMIN D, 25 OH (test code = 4958) 20 NG/ML [id number] 00:00:00 Test Item Value Reference Range Interpretation Comments LITHIUM (test code = 2038) 0.38 MEQ/L [id number] 00:00:00 Test Item Value Reference Range Interpretation Comments LITHIUM (test code = 2038) 0.38 MEQ/L [id number] 00:00:00 Test Item Value Reference Range Interpretation Comments LITHIUM (test code = 2038) 0.38 MEQ/L THYROID II PROFILE (T3U, T4, T7, TSH)2020-10-05 00:00:00 Test Item Value Reference Range Interpretation Comments T-UPTAKE (test code = 2816) 30.2 % THYROX. BIND. CAPAC. (test code 1.1 = 19856) T4 (THYROXINE) (test code = 4.4 UG/DL 2819) CORRECTED T4 (FTI) (test code = 4.0 UG/DL 2820) TSH, THIRD GENERATION (test code 4.570 UIU/ML = 2821) THYROID II PROFILE (T3U, T4, T7, TSH)2020-10-05 00:00:00 Test Item Value Reference Range Interpretation Comments T-UPTAKE (test code = 2816) 30.2 % THYROX. BIND. CAPAC. (test code 1.1 = 51639) T4 (THYROXINE) (test code = 4.4 UG/DL 2819) CORRECTED T4 (FTI) (test code = 4.0 UG/DL 2820) TSH, THIRD GENERATION (test code 4.570 UIU/ML = 2821) CBC W/AUTO [id number] 00:00:00 Test Item Value Reference Range Interpretation [...] NUCLEATED RBCS (test code = 0.00 K/UL 75291) CBC W/AUTO [id number] 00:00:00 Test Item Value Reference Range Interpretation [...] NUCLEATED RBCS (test code = 0.00 K/UL 45594) CBC W/AUTO [id number] 00:00:00 Test Item Value Reference Range Interpretation [...] NUCLEATED RBCS (test code = 0.00 K/UL 16336) LIPID [id number] 00:00:00 Test Item Value Reference Range Interpretation Comments CHOLESTEROL (test code = 2210) 112 MG/DL TRIGLYCERIDES (test code = 2232) 140 MG/DL HDL CHOLESTEROL (test code = 2220) 34 MG/DL CALC LDL CHOL (test code = 2237) 56 MG/DL RISK RATIO LDL/HDL (test code = 1.65 RATIO 2238) LIPID [id number] 00:00:00 Test Item Value Reference Range Interpretation Comments CHOLESTEROL (test code = 2210) 112 MG/DL TRIGLYCERIDES (test code = 2232) 140 MG/DL HDL CHOLESTEROL (test code = 2220) 34 MG/DL CALC LDL CHOL (test code = 2237) 56 MG/DL RISK RATIO LDL/HDL (test code = 1.65 RATIO 2238) COMPREHENSIVE METABOLIC [id number] 00:00:00 Test Item Value Reference Range Interpretation Comments GLUCOSE (test code = 2217) 109 MG/DL BUN (test code = 2208) 11 MG/DL CREATININE (test code = 2214) 0.68 MG/DL eGFR AMER. (test code 116 ML/MIN/1.73 = 27987) eGFR NON- AMER. (test 100 ML/MIN/1.73 code = 59673) CALC BUN/CREAT (test code = 16 RATIO [...] code = 2219) 29 U/L COMPREHENSIVE METABOLIC [id number] 00:00:00 Test Item Value Reference Range Interpretation Comments GLUCOSE (test code = 2217) 109 MG/DL BUN (test code = 2208) 11 MG/DL CREATININE (test code = 2214) 0.68 MG/DL eGFR AMER. (test code 116 ML/MIN/1.73 = 79170) eGFR NON- AMER. (test 100 ML/MIN/1.73 code = 29618) CALC BUN/CREAT (test code = 16 RATIO [...] = 2219) 29 U/L VITAMIN D, 25 [id number] 00:00:00 Test Item Value Reference Range Interpretation Comments VITAMIN D, 25 OH (test code = 4958) 20 NG/ML VITAMIN D, 25 [id number] 00:00:00 Test Item Value Reference Range Interpretation Comments VITAMIN D, 25 OH (test code = 4958) 20 NG/ML [id number] 00:00:00 Test Item Value Reference Range Interpretation Comments LITHIUM (test code = 2038) 0.38 MEQ/L [id number] 00:00:00 Test Item Value Reference Range Interpretation Comments LITHIUM (test code = 2038) 0.38 MEQ/L [id number] 00:00:00 Test Item Value Reference Range Interpretation Comments LITHIUM (test code = 2038) 0.38 MEQ/L THYROID II PROFILE (T3U, T4, T7, TSH)2020-10-05 00:00:00 Test Item Value Reference Range Interpretation Comments T-UPTAKE (test code = 2816) 30.2 % THYROX. BIND. CAPAC. (test code 1.1 = 33700) T4 (THYROXINE) (test code = 4.4 UG/DL 2818) CORRECTED T4 (FTI) (test code = 4.0 UG/DL 2820) TSH, THIRD GENERATION (test code 4.570 UIU/ML = 2821) THYROID II PROFILE (T3U, T4, T7, TSH)2020-10-05 00:00:00 Test Item Value Reference Range Interpretation Comments T-UPTAKE (test code = 2816) 30.2 % THYROX. BIND. CAPAC. (test code 1.1 = 97657) T4 (THYROXINE) (test code = 4.4 UG/DL 2818) CORRECTED T4 (FTI) (test code = 4.0 UG/DL 2820) TSH, THIRD GENERATION (test code 4.570 UIU/ML = 2821) CBC W/AUTO [id number] 00:00:00 Test Item Value Reference Range Interpretation [...] NUCLEATED RBCS (test code = 0.00 K/UL 49318) CBC W/AUTO [id number] 00:00:00 Test Item Value Reference Range Interpretation [...] NUCLEATED RBCS (test code = 0.00 K/UL 74149) CBC W/AUTO [id number] 00:00:00 Test Item Value Reference Range Interpretation [...] NUCLEATED RBCS (test code = 0.00 K/UL 36832) LIPID [id number] 00:00:00 Test Item Value Reference Range Interpretation Comments CHOLESTEROL (test code = 2210) 112 MG/DL TRIGLYCERIDES (test code = 2232) 140 MG/DL HDL CHOLESTEROL (test code = 2220) 34 MG/DL CALC LDL CHOL (test code = 2237) 56 MG/DL RISK RATIO LDL/HDL (test code = 1.65 RATIO 2238) LIPID [id number] 00:00:00 Test Item Value Reference Range Interpretation Comments CHOLESTEROL (test code = 2210) 112 MG/DL TRIGLYCERIDES (test code = 2232) 140 MG/DL HDL CHOLESTEROL (test code = 2220) 34 MG/DL CALC LDL CHOL (test code = 2237) 56 MG/DL RISK RATIO LDL/HDL (test code = 1.65 RATIO 2238) COMPREHENSIVE METABOLIC [id number] 00:00:00 Test Item Value Reference Range Interpretation Comments GLUCOSE (test code = 2217) 109 MG/DL BUN (test code = 2208) 11 MG/DL CREATININE (test code = 2214) 0.68 MG/DL eGFR AMER. (test code 116 ML/MIN/1.73 = 75541) eGFR NON- AMER. (test 100 ML/MIN/1.73 code = 13973) CALC BUN/CREAT (test code = 16 RATIO [...] code = 2219) 29 U/L COMPREHENSIVE METABOLIC [id number] 00:00:00 Test Item Value Reference Range Interpretation Comments GLUCOSE (test code = 2217) 109 MG/DL BUN (test code = 2208) 11 MG/DL CREATININE (test code = 2214) 0.68 MG/DL eGFR AMER. (test code 116 ML/MIN/1.73 = 97748) eGFR NON- AMER. (test 100 ML/MIN/1.73 code = 03257) CALC BUN/CREAT (test code = 16 RATIO [...] = 2219) 29 U/L VITAMIN D, 25 [id number] 00:00:00 Test Item Value Reference Range Interpretation Comments VITAMIN D, 25 OH (test code = 4958) 20 NG/ML VITAMIN D, 25 [id number] 00:00:00 Test Item Value Reference Range Interpretation Comments VITAMIN D, 25 OH (test code = 4958) 20 NG/ML [id number] 00:00:00 Test Item Value Reference Range Interpretation Comments LITHIUM (test code = 203) 0.38 MEQ/L [id number] 00:00:00 Test Item Value Reference Range Interpretation Comments LITHIUM (test code = 203) 0.38 MEQ/L [id number] 00:00:00 Test Item Value Reference Range Interpretation Comments LITHIUM (test code = 203) 0.38 MEQ/L THYROID II PROFILE (T3U, T4, T7, TSH)2020-10-05 00:00:00 Test Item Value Reference Range Interpretation Comments T-UPTAKE (test code = 2817) 30.2 % THYROX. BIND. CAPAC. (test code 1.1 = 80711) T4 (THYROXINE) (test code = 4.4 UG/DL 2819) CORRECTED T4 (FTI) (test code = 4.0 UG/DL 2820) TSH, THIRD GENERATION (test code 4.570 UIU/ML = 2821) THYROID II PROFILE (T3U, T4, T7, TSH)2020-10-05 00:00:00 Test Item Value Reference Range Interpretation Comments T-UPTAKE (test code = 2817) 30.2 % THYROX. BIND. CAPAC. (test code 1.1 = 06480) T4 (THYROXINE) (test code = 4.4 UG/DL 2819) CORRECTED T4 (FTI) (test code = 4.0 UG/DL 2820) TSH, THIRD GENERATION (test code 4.570 UIU/ML = 2821) CBC W/AUTO [id number] 00:00:00 Test Item Value Reference Range Interpretation [...] NUCLEATED RBCS (test code = 0.00 K/UL 73855) CBC W/AUTO [id number] 00:00:00 Test Item Value Reference Range Interpretation [...] NUCLEATED RBCS (test code = 0.00 K/UL 56454) CBC W/AUTO [id number] 00:00:00 Test Item Value Reference Range Interpretation [...] NUCLEATED RBCS (test code = 0.00 K/UL 48458) LIPID [id number] 00:00:00 Test Item Value Reference Range Interpretation Comments CHOLESTEROL (test code = 2210) 112 MG/DL TRIGLYCERIDES (test code = 2232) 140 MG/DL HDL CHOLESTEROL (test code = 2220) 34 MG/DL CALC LDL CHOL (test code = 2237) 56 MG/DL RISK RATIO LDL/HDL (test code = 1.65 RATIO 2238) LIPID [id number] 00:00:00 Test Item Value Reference Range Interpretation Comments CHOLESTEROL (test code = 2210) 112 MG/DL TRIGLYCERIDES (test code = 2232) 140 MG/DL HDL CHOLESTEROL (test code = 2220) 34 MG/DL CALC LDL CHOL (test code = 2237) 56 MG/DL RISK RATIO LDL/HDL (test code = 1.65 RATIO 2238) COMPREHENSIVE METABOLIC [id number] 00:00:00 Test Item Value Reference Range Interpretation Comments GLUCOSE (test code = 2217) 109 MG/DL BUN (test code = 2208) 11 MG/DL CREATININE (test code = 2214) 0.68 MG/DL eGFR AMER. (test code 116 ML/MIN/1.73 = 78175) eGFR NON- AMER. (test 100 ML/MIN/1.73 code = 96525) CALC BUN/CREAT (test code = 16 RATIO [...] code = 2219) 29 U/L COMPREHENSIVE METABOLIC [id number] 00:00:00 Test Item Value Reference Range Interpretation Comments GLUCOSE (test code = 2217) 109 MG/DL BUN (test code = 2208) 11 MG/DL CREATININE (test code = 2214) 0.68 MG/DL eGFR AMER. (test code 116 ML/MIN/1.73 = 45259) eGFR NON- AMER. (test 100 ML/MIN/1.73 code = 06695) CALC BUN/CREAT (test code = 16 RATIO [...] = 2219) 29 U/L VITAMIN D, 25 [id number] 00:00:00 Test Item Value Reference Range Interpretation Comments VITAMIN D, 25 OH (test code = 4958) 20 NG/ML VITAMIN D, 25 [id number] 00:00:00 Test Item Value Reference Range Interpretation Comments VITAMIN D, 25 OH (test code = 4958) 20 NG/ML [id number] 00:00:00 Test Item Value Reference Range Interpretation Comments LITHIUM (test code = 2038) 0.38 MEQ/L [id number] 00:00:00 Test Item Value Reference Range Interpretation Comments LITHIUM (test code = 2038) 0.38 MEQ/L [id number] 00:00:00 Test Item Value Reference Range Interpretation Comments LITHIUM (test code = 2038) 0.38 MEQ/L THYROID II PROFILE (T3U, T4, T7, TSH)2020-10-05 00:00:00 Test Item Value Reference Range Interpretation Comments T-UPTAKE (test code = 2816) 30.2 % THYROX. BIND. CAPAC. (test code 1.1 = 65903) T4 (THYROXINE) (test code = 4.4 UG/DL 2818) CORRECTED T4 (FTI) (test code = 4.0 UG/DL 2820) TSH, THIRD GENERATION (test code 4.570 UIU/ML = 2821) THYROID II PROFILE (T3U, T4, T7, TSH)2020-10-05 00:00:00 Test Item Value Reference Range Interpretation Comments T-UPTAKE (test code = 7) 30.2 % THYROX. BIND. CAPAC. (test code 1.1 = 72420) T4 (THYROXINE) (test code = 4.4 UG/DL 2819) CORRECTED T4 (FTI) (test code = 4.0 UG/DL 2820) TSH, THIRD GENERATION (test code 4.570 UIU/ML = 2821) CBC W/AUTO [id number] 00:00:00 Test Item Value Reference Range Interpretation [...] NUCLEATED RBCS (test code = 0.00 K/UL 42154) CBC W/AUTO [id number] 00:00:00 Test Item Value Reference Range Interpretation [...] NUCLEATED RBCS (test code = 0.00 K/UL 46972) CBC W/AUTO [id number] 00:00:00 Test Item Value Reference Range Interpretation [...] NUCLEATED RBCS (test code = 0.00 K/UL 00122) LIPID [id number] 00:00:00 Test Item Value Reference Range Interpretation Comments CHOLESTEROL (test code = 2210) 112 MG/DL TRIGLYCERIDES (test code = 2232) 140 MG/DL HDL CHOLESTEROL (test code = 2220) 34 MG/DL CALC LDL CHOL (test code = 2237) 56 MG/DL RISK RATIO LDL/HDL (test code = 1.65 RATIO 2238) LIPID [id number] 00:00:00 Test Item Value Reference Range Interpretation Comments CHOLESTEROL (test code = 2210) 112 MG/DL TRIGLYCERIDES (test code = 2232) 140 MG/DL HDL CHOLESTEROL (test code = 2220) 34 MG/DL CALC LDL CHOL (test code = 2237) 56 MG/DL RISK RATIO LDL/HDL (test code = 1.65 RATIO 2238) COMPREHENSIVE METABOLIC [id number] 00:00:00 Test Item Value Reference Range Interpretation Comments GLUCOSE (test code = 2217) 109 MG/DL BUN (test code = 2208) 11 MG/DL CREATININE (test code = 2214) 0.68 MG/DL eGFR AMER. (test code 116 ML/MIN/1.73 = 29098) eGFR NON- AMER. (test 100 ML/MIN/1.73 code = 89575) CALC BUN/CREAT (test code = 16 RATIO [...] code = 2219) 29 U/L COMPREHENSIVE METABOLIC [id number] 00:00:00 Test Item Value Reference Range Interpretation Comments GLUCOSE (test code = 2217) 109 MG/DL BUN (test code = 2208) 11 MG/DL CREATININE (test code = 2214) 0.68 MG/DL eGFR AMER. (test code 116 ML/MIN/1.73 = 74320) eGFR NON- AMER. (test 100 ML/MIN/1.73 code = 80878) CALC BUN/CREAT (test code = 16 RATIO [...] = 2218) 29 U/L VITAMIN D, 25 [id number] 00:00:00 Test Item Value Reference Range Interpretation Comments VITAMIN D, 25 OH (test code = 4958) 20 NG/ML VITAMIN D, 25 [id number] 00:00:00 Test Item Value Reference Range Interpretation Comments VITAMIN D, 25 OH (test code = 4958) 20 NG/ML [id number] 00:00:00 Test Item Value Reference Range Interpretation Comments LITHIUM (test code = 2038) 0.38 MEQ/L [id number] 00:00:00 Test Item Value Reference Range Interpretation Comments LITHIUM (test code = 2038) 0.38 MEQ/L [id number] 00:00:00 Test Item Value Reference Range Interpretation Comments LITHIUM (test code = 2038) 0.38 MEQ/L THYROID II PROFILE (T3U, T4, T7, TSH)2020-10-05 00:00:00 Test Item Value Reference Range Interpretation Comments T-UPTAKE (test code = 2816) 30.2 % THYROX. BIND. CAPAC. (test code 1.1 = 60046) T4 (THYROXINE) (test code = 4.4 UG/DL 2818) CORRECTED T4 (FTI) (test code = 4.0 UG/DL 2819) TSH, THIRD GENERATION (test code 4.570 UIU/ML = 2821) THYROID II PROFILE (T3U, T4, T7, TSH)2020-10-05 00:00:00 Test Item Value Reference Range Interpretation Comments T-UPTAKE (test code = 2817) 30.2 % THYROX. BIND. CAPAC. (test code 1.1 = 99744) T4 (THYROXINE) (test code = 4.4 UG/DL 2819) CORRECTED T4 (FTI) (test code = 4.0 UG/DL 2820) TSH, THIRD GENERATION (test code 4.570 UIU/ML = 2821) CBC W/AUTO [id number] 00:00:00 Test Item Value Reference Range Interpretation [...] NUCLEATED RBCS (test code = 0.00 K/UL 25807) CBC W/AUTO [id number] 00:00:00 Test Item Value Reference Range Interpretation [...] NUCLEATED RBCS (test code = 0.00 K/UL 09032) CBC W/AUTO [id number] 00:00:00 Test Item Value Reference Range Interpretation [...] NUCLEATED RBCS (test code = 0.00 K/UL 42838) LIPID [id number] 00:00:00 Test Item Value Reference Range Interpretation Comments CHOLESTEROL (test code = 2210) 112 MG/DL TRIGLYCERIDES (test code = 2232) 140 MG/DL HDL CHOLESTEROL (test code = 2220) 34 MG/DL CALC LDL CHOL (test code = 2237) 56 MG/DL RISK RATIO LDL/HDL (test code = 1.65 RATIO 2238) LIPID [id number] 00:00:00 Test Item Value Reference Range Interpretation Comments CHOLESTEROL (test code = 2210) 112 MG/DL TRIGLYCERIDES (test code = 2232) 140 MG/DL HDL CHOLESTEROL (test code = 2220) 34 MG/DL CALC LDL CHOL (test code = 2237) 56 MG/DL RISK RATIO LDL/HDL (test code = 1.65 RATIO 2238) COMPREHENSIVE METABOLIC [id number] 00:00:00 Test Item Value Reference Range Interpretation Comments GLUCOSE (test code = 2217) 109 MG/DL BUN (test code = 2208) 11 MG/DL CREATININE (test code = 2214) 0.68 MG/DL eGFR AMER. (test code 116 ML/MIN/1.73 = 72610) eGFR NON- AMER. (test 100 ML/MIN/1.73 code = 83416) CALC BUN/CREAT (test code = 16 RATIO [...] code = 2219) 29 U/L COMPREHENSIVE METABOLIC [id number] 00:00:00 Test Item Value Reference Range Interpretation Comments GLUCOSE (test code = 2217) 109 MG/DL BUN (test code = 2208) 11 MG/DL CREATININE (test code = 2214) 0.68 MG/DL eGFR AMER. (test code 116 ML/MIN/1.73 = 73233) eGFR NON- AMER. (test 100 ML/MIN/1.73 code = 57013) CALC BUN/CREAT (test code = 16 RATIO [...] = 2219) 29 U/L VITAMIN D, 25 [id number] 00:00:00 Test Item Value Reference Range Interpretation Comments VITAMIN D, 25 OH (test code = 4958) 20 NG/ML VITAMIN D, 25 [id number] 00:00:00 Test Item Value Reference Range Interpretation Comments VITAMIN D, 25 OH (test code = 4958) 20 NG/ML [id number] 00:00:00 Test Item Value Reference Range Interpretation Comments LITHIUM (test code = 2038) 0.38 MEQ/L [id number] 00:00:00 Test Item Value Reference Range Interpretation Comments LITHIUM (test code = 2038) 0.38 MEQ/L [id number] 00:00:00 Test Item Value Reference Range Interpretation Comments LITHIUM (test code = 2038) 0.38 MEQ/L THYROID II PROFILE (T3U, T4, T7, TSH)2020-10-05 00:00:00 Test Item Value Reference Range Interpretation Comments T-UPTAKE (test code = 7) 30.2 % THYROX. BIND. CAPAC. (test code 1.1 = 25102) T4 (THYROXINE) (test code = 4.4 UG/DL 2819) CORRECTED T4 (FTI) (test code = 4.0 UG/DL 2820) TSH, THIRD GENERATION (test code 4.570 UIU/ML = 2821) THYROID II PROFILE (T3U, T4, T7, TSH)2020-10-05 00:00:00 Test Item Value Reference Range Interpretation Comments T-UPTAKE (test code = 7) 30.2 % THYROX. BIND. CAPAC. (test code 1.1 = 18396) T4 (THYROXINE) (test code = 4.4 UG/DL 2819) CORRECTED T4 (FTI) (test code = 4.0 UG/DL 2820) TSH, THIRD GENERATION (test code 4.570 UIU/ML = 2821) CBC W/AUTO [id number] 00:00:00 Test Item Value Reference Range Interpretation [...] NUCLEATED RBCS (test code = 0.00 K/UL 85101) CBC W/AUTO [id number] 00:00:00 Test Item Value Reference Range Interpretation [...] NUCLEATED RBCS (test code = 0.00 K/UL 05114) CBC W/AUTO [id number] 00:00:00 Test Item Value Reference Range Interpretation [...] NUCLEATED RBCS (test code = 0.00 K/UL 69119) LIPID [id number] 00:00:00 Test Item Value Reference Range Interpretation Comments CHOLESTEROL (test code = 2210) 112 MG/DL TRIGLYCERIDES (test code = 2232) 140 MG/DL HDL CHOLESTEROL (test code = 2220) 34 MG/DL CALC LDL CHOL (test code = 2237) 56 MG/DL RISK RATIO LDL/HDL (test code = 1.65 RATIO 2238) LIPID [id number] 00:00:00 Test Item Value Reference Range Interpretation Comments CHOLESTEROL (test code = 2210) 112 MG/DL TRIGLYCERIDES (test code = 2232) 140 MG/DL HDL CHOLESTEROL (test code = 2220) 34 MG/DL CALC LDL CHOL (test code = 2237) 56 MG/DL RISK RATIO LDL/HDL (test code = 1.65 RATIO 2238) COMPREHENSIVE METABOLIC [id number] 00:00:00 Test Item Value Reference Range Interpretation Comments GLUCOSE (test code = 2217) 109 MG/DL BUN (test code = 2208) 11 MG/DL CREATININE (test code = 2214) 0.68 MG/DL eGFR AMER. (test code 116 ML/MIN/1.73 = 92426) eGFR NON- AMER. (test 100 ML/MIN/1.73 code = 82179) CALC BUN/CREAT (test code = 16 RATIO [...] code = 2219) 29 U/L COMPREHENSIVE METABOLIC [id number] 00:00:00 Test Item Value Reference Range Interpretation Comments GLUCOSE (test code = 2217) 109 MG/DL BUN (test code = 2208) 11 MG/DL CREATININE (test code = 2214) 0.68 MG/DL eGFR AMER. (test code 116 ML/MIN/1.73 = 33183) eGFR NON- AMER. (test 100 ML/MIN/1.73 code = 06210) CALC BUN/CREAT (test code = 16 RATIO [...] = 2219) 29 U/L VITAMIN D, 25 [id number] 00:00:00 Test Item Value Reference Range Interpretation Comments VITAMIN D, 25 OH (test code = 4958) 20 NG/ML VITAMIN D, 25 [id number] 00:00:00 Test Item Value Reference Range Interpretation Comments VITAMIN D, 25 OH (test code = 4958) 20 NG/ML [id number] 00:00:00 Test Item Value Reference Range Interpretation Comments LITHIUM (test code = 2038) 0.38 MEQ/L [id number] 00:00:00 Test Item Value Reference Range Interpretation Comments LITHIUM (test code = 2038) 0.38 MEQ/L [id number] 00:00:00 Test Item Value Reference Range Interpretation Comments LITHIUM (test code = 2038) 0.38 MEQ/L THYROID II PROFILE (T3U, T4, T7, TSH)2020-10-05 00:00:00 Test Item Value Reference Range Interpretation Comments T-UPTAKE (test code = 281) 30.2 % THYROX. BIND. CAPAC. (test code 1.1 = 32069) T4 (THYROXINE) (test code = 4.4 UG/DL 2819) CORRECTED T4 (FTI) (test code = 4.0 UG/DL 2820) TSH, THIRD GENERATION (test code 4.570 UIU/ML = 2821) THYROID II PROFILE (T3U, T4, T7, TSH)2020-10-05 00:00:00 Test Item Value Reference Range Interpretation Comments T-UPTAKE (test code = 2817) 30.2 % THYROX. BIND. CAPAC. (test code 1.1 = 09130) T4 (THYROXINE) (test code = 4.4 UG/DL 2819) CORRECTED T4 (FTI) (test code = 4.0 UG/DL 2820) TSH, THIRD GENERATION (test code 4.570 UIU/ML = 2821) CBC W/AUTO [id number] 00:00:00 Test Item Value Reference Range Interpretation [...] NUCLEATED RBCS (test code = 0.00 K/UL 78594) CBC W/AUTO [id number] 00:00:00 Test Item Value Reference Range Interpretation [...] NUCLEATED RBCS (test code = 0.00 K/UL 93755) CBC W/AUTO [id number] 00:00:00 Test Item Value Reference Range Interpretation [...] NUCLEATED RBCS (test code = 0.00 K/UL 99325) LIPID [id number] 00:00:00 Test Item Value Reference Range Interpretation Comments CHOLESTEROL (test code = 2210) 112 MG/DL TRIGLYCERIDES (test code = 2232) 140 MG/DL HDL CHOLESTEROL (test code = 2220) 34 MG/DL CALC LDL CHOL (test code = 2237) 56 MG/DL RISK RATIO LDL/HDL (test code = 1.65 RATIO 2238) LIPID [id number] 00:00:00 Test Item Value Reference Range Interpretation Comments CHOLESTEROL (test code = 2210) 112 MG/DL TRIGLYCERIDES (test code = 2232) 140 MG/DL HDL CHOLESTEROL (test code = 2220) 34 MG/DL CALC LDL CHOL (test code = 2237) 56 MG/DL RISK RATIO LDL/HDL (test code = 1.65 RATIO 2238) COMPREHENSIVE METABOLIC [id number] 00:00:00 Test Item Value Reference Range Interpretation Comments GLUCOSE (test code = 2217) 109 MG/DL BUN (test code = 2208) 11 MG/DL CREATININE (test code = 2214) 0.68 MG/DL eGFR AMER. (test code 116 ML/MIN/1.73 = 64589) eGFR NON- AMER. (test 100 ML/MIN/1.73 code = 11639) CALC BUN/CREAT (test code = 16 RATIO [...] code = 2219) 29 U/L COMPREHENSIVE METABOLIC [id number] 00:00:00 Test Item Value Reference Range Interpretation Comments GLUCOSE (test code = 2217) 109 MG/DL BUN (test code = 2208) 11 MG/DL CREATININE (test code = 2214) 0.68 MG/DL eGFR AMER. (test code 116 ML/MIN/1.73 = 16621) eGFR NON- AMER. (test 100 ML/MIN/1.73 code = 83958) CALC BUN/CREAT (test code = 16 RATIO 5) SODIUM (test code = 2231) [...] = 2219) 29 U/L VITAMIN D, 25 [id number] 00:00:00 Test Item Value Reference Range Interpretation Comments VITAMIN D, 25 OH (test code = 4958) 20 NG/ML VITAMIN D, 25 [id number] 00:00:00 Test Item Value Reference Range Interpretation Comments VITAMIN D, 25 OH (test code = 4958) 20 NG/ML [id number] 00:00:00 Test Item Value Reference Range Interpretation Comments LITHIUM (test code = 2038) 0.38 MEQ/L [id number] 00:00:00 Test Item Value Reference Range Interpretation Comments LITHIUM (test code = 2038) 0.38 MEQ/L [id number] 00:00:00 Test Item Value Reference Range Interpretation Comments LITHIUM (test code = 203) 0.38 MEQ/L THYROID II PROFILE (T3U, T4, T7, TSH)2020-10-05 00:00:00 Test Item Value Reference Range Interpretation Comments T-UPTAKE (test code = 281) 30.2 % THYROX. BIND. CAPAC. (test code 1.1 = 40435) T4 (THYROXINE) (test code = 4.4 UG/DL 2818) CORRECTED T4 (FTI) (test code = 4.0 UG/DL 282) TSH, THIRD GENERATION (test code 4.570 UIU/ML = 2821) THYROID II PROFILE (T3U, T4, T7, TSH)2020-10-05 00:00:00 Test Item Value Reference Range Interpretation Comments T-UPTAKE (test code = 2817) 30.2 % THYROX. BIND. CAPAC. (test code 1.1 = 01007) T4 (THYROXINE) (test code = 4.4 UG/DL 2819) CORRECTED T4 (FTI) (test code = 4.0 UG/DL 2820) TSH, THIRD GENERATION (test code 4.570 UIU/ML = 2821) CBC W/AUTO [id number] 00:00:00 Test Item Value Reference Range Interpretation [...] NUCLEATED RBCS (test code = 0.00 K/UL 62082) CBC W/AUTO [id number] 00:00:00 Test Item Value Reference Range Interpretation [...] NUCLEATED RBCS (test code = 0.00 K/UL 98959) CBC W/AUTO [id number] 00:00:00 Test Item Value Reference Range Interpretation [...] NUCLEATED RBCS (test code = 0.00 K/UL 50898) CBC W/AUTO [id number] 00:00:00 Test Item Value Reference Range Interpretation [...] NUCLEATED RBCS (test code = 0.00 K/UL 76741) CBC W/AUTO [id number] 00:00:00 Test Item Value Reference Range Interpretation [...] NUCLEATED RBCS (test code = 0.00 K/UL 77292) [id number] 00:00:00 Test Item Value Reference Range Interpretation Comments LITHIUM (test code = 2038) 0.31 MEQ/L VITAMIN D, 25 [id number] 00:00:00 Test Item Value Reference Range Interpretation Comments VITAMIN D, 25 OH (test code = 4958) 25 NG/ML [id number] 00:00:00 Test Item Value Reference Range Interpretation Comments LITHIUM (test code = 2039) 0.31 MEQ/L [id number] 00:00:00 Test Item Value Reference Range Interpretation Comments TSH, THIRD GENERATION (test code 2.180 UIU/ML = 2821) [id number] 00:00:00 Test Item Value Reference Range Interpretation Comments TSH, THIRD GENERATION (test code 2.180 UIU/ML = 2821) [id number] 00:00:00 Test Item Value Reference Range Interpretation Comments TSH, THIRD GENERATION (test code 2.180 UIU/ML = 2821) [id number] 00:00:00 Test Item Value Reference Range Interpretation Comments TSH, THIRD GENERATION (test code 2.180 UIU/ML = 2821) [id number] 00:00:00 Test Item Value Reference Range Interpretation Comments LITHIUM (test code = 2038) 0.31 MEQ/L VITAMIN D, 25 [id number] 00:00:00 Test Item Value Reference Range Interpretation Comments VITAMIN D, 25 OH (test code = 4958) 25 NG/ML VITAMIN D, 25 [id number] 00:00:00 Test Item Value Reference Range Interpretation Comments VITAMIN D, 25 OH (test code = 4958) 25 NG/ML [id number] 00:00:00 Test Item Value Reference Range Interpretation Comments LITHIUM (test code = 2038) 0.31 MEQ/L [id number] 00:00:00 Test Item Value Reference Range Interpretation Comments LITHIUM (test code = 2038) 0.31 MEQ/L [id number] 00:00:00 Test Item Value Reference Range Interpretation Comments TSH, THIRD GENERATION (test code 2.180 UIU/ML = 2821) [id number] 00:00:00 Test Item Value Reference Range Interpretation Comments TSH, THIRD GENERATION (test code 2.180 UIU/ML = 2821) [id number] 00:00:00 Test Item Value Reference Range Interpretation Comments TSH, THIRD GENERATION (test code 2.180 UIU/ML = 2821) [id number] 00:00:00 Test Item Value Reference Range Interpretation Comments LITHIUM (test code = 2038) 0.31 MEQ/L VITAMIN D, 25 [id number] 00:00:00 Test Item Value Reference Range Interpretation Comments VITAMIN D, 25 OH (test code = 4958) 25 NG/ML VITAMIN D, 25 [id number] 00:00:00 Test Item Value Reference Range Interpretation Comments VITAMIN D, 25 OH (test code = 4958) 25 NG/ML [id number] 00:00:00 Test Item Value Reference Range Interpretation Comments LITHIUM (test code = 2038) 0.31 MEQ/L [id number] 00:00:00 Test Item Value Reference Range Interpretation Comments LITHIUM (test code = 2039) 0.31 MEQ/L [id number] 00:00:00 Test Item Value Reference Range Interpretation Comments TSH, THIRD GENERATION (test code 2.180 UIU/ML = 2821) [id number] 00:00:00 Test Item Value Reference Range Interpretation Comments TSH, THIRD GENERATION (test code 2.180 UIU/ML = 2821) [id number] 00:00:00 Test Item Value Reference Range Interpretation Comments TSH, THIRD GENERATION (test code 2.180 UIU/ML = 2821) [id number] 00:00:00 Test Item Value Reference Range Interpretation Comments LITHIUM (test code = 203) 0.31 MEQ/L VITAMIN D, 25 [id number] 00:00:00 Test Item Value Reference Range Interpretation Comments VITAMIN D, 25 OH (test code = 4958) 25 NG/ML VITAMIN D, 25 [id number] 00:00:00 Test Item Value Reference Range Interpretation Comments VITAMIN D, 25 OH (test code = 4958) 25 NG/ML [id number] 00:00:00 Test Item Value Reference Range Interpretation Comments LITHIUM (test code = 203) 0.31 MEQ/L [id number] 00:00:00 Test Item Value Reference Range Interpretation Comments LITHIUM (test code = 2039) 0.31 MEQ/L [id number] 00:00:00 Test Item Value Reference Range Interpretation Comments TSH, THIRD GENERATION (test code 2.180 UIU/ML = 2821) [id number] 00:00:00 Test Item Value Reference Range Interpretation Comments TSH, THIRD GENERATION (test code 2.180 UIU/ML = 2821) [id number] 00:00:00 Test Item Value Reference Range Interpretation Comments TSH, THIRD GENERATION (test code 2.180 UIU/ML = 2821) [id number] 00:00:00 Test Item Value Reference Range Interpretation Comments LITHIUM (test code = 203) 0.31 MEQ/L VITAMIN D, 25 [id number] 00:00:00 Test Item Value Reference Range Interpretation Comments VITAMIN D, 25 OH (test code = 4958) 25 NG/ML VITAMIN D, 25 [id number] 00:00:00 Test Item Value Reference Range Interpretation Comments VITAMIN D, 25 OH (test code = 4958) 25 NG/ML [id number] 00:00:00 Test Item Value Reference Range Interpretation Comments LITHIUM (test code = 2038) 0.31 MEQ/L [id number] 00:00:00 Test Item Value Reference Range Interpretation Comments LITHIUM (test code = 2038) 0.31 MEQ/L [id number] 00:00:00 Test Item Value Reference Range Interpretation Comments TSH, THIRD GENERATION (test code 2.180 UIU/ML = 2821) [id number] 00:00:00 Test Item Value Reference Range Interpretation Comments TSH, THIRD GENERATION (test code 2.180 UIU/ML = 2821) [id number] 00:00:00 Test Item Value Reference Range Interpretation Comments TSH, THIRD GENERATION (test code 2.180 UIU/ML = 2821) [id number] 00:00:00 Test Item Value Reference Range Interpretation Comments LITHIUM (test code = 2038) 0.31 MEQ/L VITAMIN D, 25 [id number] 00:00:00 Test Item Value Reference Range Interpretation Comments VITAMIN D, 25 OH (test code = 4958) 25 NG/ML VITAMIN D, 25 [id number] 00:00:00 Test Item Value Reference Range Interpretation Comments VITAMIN D, 25 OH (test code = 4958) 25 NG/ML [id number] 00:00:00 Test Item Value Reference Range Interpretation Comments LITHIUM (test code = 2038) 0.31 MEQ/L [id number] 00:00:00 Test Item Value Reference Range Interpretation Comments LITHIUM (test code = 2038) 0.31 MEQ/L [id number] 00:00:00 Test Item Value Reference Range Interpretation Comments TSH, THIRD GENERATION (test code 2.180 UIU/ML = 2821) [id number] 00:00:00 Test Item Value Reference Range Interpretation Comments TSH, THIRD GENERATION (test code 2.180 UIU/ML = 2821) [id number] 00:00:00 Test Item Value Reference Range Interpretation Comments TSH, THIRD GENERATION (test code 2.180 UIU/ML = 2821) [id number] 00:00:00 Test Item Value Reference Range Interpretation Comments LITHIUM (test code = 2038) 0.31 MEQ/L VITAMIN D, 25 [id number] 00:00:00 Test Item Value Reference Range Interpretation Comments VITAMIN D, 25 OH (test code = 4958) 25 NG/ML VITAMIN D, 25 [id number] 00:00:00 Test Item Value Reference Range Interpretation Comments VITAMIN D, 25 OH (test code = 4958) 25 NG/ML [id number] 00:00:00 Test Item Value Reference Range Interpretation Comments LITHIUM (test code = 2038) 0.31 MEQ/L [id number] 00:00:00 Test Item Value Reference Range Interpretation Comments LITHIUM (test code = 2038) 0.31 MEQ/L [id number] 00:00:00 Test Item Value Reference Range Interpretation Comments TSH, THIRD GENERATION (test code 2.180 UIU/ML = 2821) [id number] 00:00:00 Test Item Value Reference Range Interpretation Comments TSH, THIRD GENERATION (test code 2.180 UIU/ML = 2821) [id number] 00:00:00 Test Item Value Reference Range Interpretation Comments TSH, THIRD GENERATION (test code 2.180 UIU/ML = 2821) [id number] 00:00:00 Test Item Value Reference Range Interpretation Comments LITHIUM (test code = 2038) 0.31 MEQ/L VITAMIN D, 25 [id number] 00:00:00 Test Item Value Reference Range Interpretation Comments VITAMIN D, 25 OH (test code = 4958) 25 NG/ML VITAMIN D, 25 [id number] 00:00:00 Test Item Value Reference Range Interpretation Comments VITAMIN D, 25 OH (test code = 4958) 25 NG/ML [id number] 00:00:00 Test Item Value Reference Range Interpretation Comments LITHIUM (test code = 2038) 0.31 MEQ/L [id number] 00:00:00 Test Item Value Reference Range Interpretation Comments LITHIUM (test code = 2038) 0.31 MEQ/L [id number] 00:00:00 Test Item Value Reference Range Interpretation Comments TSH, THIRD GENERATION (test code 2.180 UIU/ML = 2821) [id number] 00:00:00 Test Item Value Reference Range Interpretation Comments TSH, THIRD GENERATION (test code 2.180 UIU/ML = 2821) [id number] 00:00:00 Test Item Value Reference Range Interpretation Comments TSH, THIRD GENERATION (test code 2.180 UIU/ML = 2821) [id number] 00:00:00 Test Item Value Reference Range Interpretation Comments LITHIUM (test code = 2038) 0.31 MEQ/L [id number] 00:00:00 Test Item Value Reference Range Interpretation Comments LITHIUM (test code = 2038) 0.31 MEQ/L VITAMIN D, 25 [id number] 00:00:00 Test Item Value Reference Range Interpretation Comments VITAMIN D, 25 OH (test code = 4958) 25 NG/ML VITAMIN D, 25 [id number] 00:00:00 Test Item Value Reference Range Interpretation Comments VITAMIN D, 25 OH (test code = 4958) 25 NG/ML [id number] 00:00:00 Test Item Value Reference Range Interpretation Comments LITHIUM (test code = 2038) 0.31 MEQ/L [id number] 00:00:00 Test Item Value Reference Range Interpretation Comments TSH, THIRD GENERATION (test code 2.180 UIU/ML = 2821) [id number] 00:00:00 Test Item Value Reference Range Interpretation Comments TSH, THIRD GENERATION (test code 2.180 UIU/ML = 2821) [id number] 00:00:00 Test Item Value Reference Range Interpretation Comments TSH, THIRD GENERATION (test code 2.180 UIU/ML = 2821) [id number] 00:00:00 Test Item Value Reference Range Interpretation Comments LITHIUM (test code = 2038) 0.31 MEQ/L VITAMIN D, 25 [id number] 00:00:00 Test Item Value Reference Range Interpretation Comments VITAMIN D, 25 OH (test code = 4958) 25 NG/ML VITAMIN D, 25 [id number] 00:00:00 Test Item Value Reference Range Interpretation Comments VITAMIN D, 25 OH (test code = 4958) 25 NG/ML [id number] 00:00:00 Test Item Value Reference Range Interpretation Comments LITHIUM (test code = 2038) 0.31 MEQ/L [id number] 00:00:00 Test Item Value Reference Range Interpretation Comments LITHIUM (test code = 2038) 0.31 MEQ/L [id number] 00:00:00 Test Item Value Reference Range Interpretation Comments TSH, THIRD GENERATION (test code 2.180 UIU/ML = 2821) [id number] 00:00:00 Test Item Value Reference Range Interpretation Comments TSH, THIRD GENERATION (test code 2.180 UIU/ML = 2821) [id number] 00:00:00 Test Item Value Reference Range Interpretation Comments TSH, THIRD GENERATION (test code 2.180 UIU/ML = 2821) [id number] 00:00:00 Test Item Value Reference Range Interpretation Comments LITHIUM (test code = 2038) 0.31 MEQ/L VITAMIN D, 25 [id number] 00:00:00 Test Item Value Reference Range Interpretation Comments VITAMIN D, 25 OH (test code = 4958) 25 NG/ML [id number] 00:00:00 Test Item Value Reference Range Interpretation Comments LITHIUM (test code = 2038) 0.31 MEQ/L VITAMIN D, 25 [id number] 00:00:00 Test Item Value Reference Range Interpretation Comments VITAMIN D, 25 OH (test code = 4958) 25 NG/ML [id number] 00:00:00 Test Item Value Reference Range Interpretation Comments LITHIUM (test code = 2038) 0.31 MEQ/L [id number] 00:00:00 Test Item Value Reference Range Interpretation Comments TSH, THIRD GENERATION (test code 2.180 UIU/ML = 2821) [id number] 00:00:00 Test Item Value Reference Range Interpretation Comments TSH, THIRD GENERATION (test code 2.180 UIU/ML = 2821) [id number] 00:00:00 Test Item Value Reference Range Interpretation Comments TSH, THIRD GENERATION (test code 2.180 UIU/ML = 2821) [id number] 00:00:00 Test Item Value Reference Range Interpretation Comments LITHIUM (test code = 2038) 0.31 MEQ/L [id number] 00:00:00 Test Item Value Reference Range Interpretation Comments LITHIUM (test code = 2038) 0.31 MEQ/L VITAMIN D, 25 [id number] 00:00:00 Test Item Value Reference Range Interpretation Comments VITAMIN D, 25 OH (test code = 4958) 25 NG/ML VITAMIN D, 25 [id number] 00:00:00 Test Item Value Reference Range Interpretation Comments VITAMIN D, 25 OH (test code = 4958) 25 NG/ML [id number] 00:00:00 Test Item Value Reference Range Interpretation Comments LITHIUM (test code = 2038) 0.31 MEQ/L [id number] 00:00:00 Test Item Value Reference Range Interpretation Comments TSH, THIRD GENERATION (test code 2.180 UIU/ML = 2821) [id number] 00:00:00 Test Item Value Reference Range Interpretation Comments LITHIUM (test code = 2038) 0.27 MEQ/L [id number] 00:00:00 Test Item Value Reference Range Interpretation Comments LITHIUM (test code = 2038) 0.27 MEQ/L [id number] 00:00:00 Test Item Value Reference Range Interpretation Comments LITHIUM (test code = 203) 0.27 MEQ/L [id number] 00:00:00 Test Item Value Reference Range Interpretation Comments LITHIUM (test code = 203) 0.27 MEQ/L [id number] 00:00:00 Test Item Value Reference Range Interpretation Comments LITHIUM (test code = 203) 0.27 MEQ/L [id number] 00:00:00 Test Item Value Reference Range Interpretation Comments LITHIUM (test code = 203) 0.27 MEQ/L [id number] 00:00:00 Test Item Value Reference Range Interpretation Comments LITHIUM (test code = 203) 0.27 MEQ/L [id number] 00:00:00 Test Item Value Reference Range Interpretation Comments LITHIUM (test code = 203) 0.27 MEQ/L [id number] 00:00:00 Test Item Value Reference Range Interpretation Comments LITHIUM (test code = 2039) 0.27 MEQ/L [id number] 00:00:00 Test Item Value Reference Range Interpretation Comments LITHIUM (test code = 203) 0.27 MEQ/L [id number] 00:00:00 Test Item Value Reference Range Interpretation Comments LITHIUM (test code = 2039) 0.27 MEQ/L [id number] 00:00:00 Test Item Value Reference Range Interpretation Comments LITHIUM (test code = 2039) 0.27 MEQ/L [id number] 00:00:00 Test Item Value Reference Range Interpretation Comments LITHIUM (test code = 2039) 0.27 MEQ/L [id number] 00:00:00 Test Item Value Reference Range Interpretation Comments LITHIUM (test code = 2039) 0.27 MEQ/L [id number] 00:00:00 Test Item Value Reference Range Interpretation Comments LITHIUM (test code = 2039) 0.27 MEQ/L [id number] 00:00:00 Test Item Value Reference Range Interpretation Comments LITHIUM (test code = 2039) 0.27 MEQ/L [id number] 00:00:00 Test Item Value Reference Range Interpretation Comments LITHIUM (test code = 203) 0.27 MEQ/L [id number] 00:00:00 Test Item Value Reference Range Interpretation Comments LITHIUM (test code = 2039) 0.27 MEQ/L [id number] 00:00:00 Test Item Value Reference Range Interpretation Comments LITHIUM (test code = 2039) 0.27 MEQ/L [id number] 00:00:00 Test Item Value Reference Range Interpretation Comments LITHIUM (test code = 2039) 0.27 MEQ/L [id number] 00:00:00 Test Item Value Reference Range Interpretation Comments LITHIUM (test code = 203) 0.27 MEQ/L [id number] 00:00:00 Test Item Value Reference Range Interpretation Comments LITHIUM (test code = 2039) 0.27 MEQ/L [id number] 00:00:00 Test Item Value Reference Range Interpretation Comments LITHIUM (test code = 2039) 0.27 MEQ/L [id number] 00:00:00 Test Item Value Reference Range Interpretation Comments LITHIUM (test code = 2039) 0.27 MEQ/L [id number] 00:00:00 Test Item Value Reference Range Interpretation Comments LITHIUM (test code = 2039) 0.27 MEQ/L [id number] 00:00:00 Test Item Value Reference Range Interpretation Comments LITHIUM (test code = 203) 0.27 MEQ/L [id number] 00:00:00 Test Item Value Reference Range Interpretation Comments LITHIUM (test code = 2039) 0.27 MEQ/L [id number] 00:00:00 Test Item Value Reference Range Interpretation Comments LITHIUM (test code = 203) 0.27 MEQ/L [id number] 00:00:00 Test Item Value Reference Range Interpretation Comments LITHIUM (test code = 203) 0.27 MEQ/L [id number] 00:00:00 Test Item Value Reference Range Interpretation Comments LITHIUM (test code = 2038) 0.27 MEQ/L [id number] 00:00:00 Test Item Value Reference Range Interpretation Comments LITHIUM (test code = 2038) 0.27 MEQ/L [id number] 00:00:00 Test Item Value Reference Range Interpretation Comments LITHIUM (test code = 2038) 0.27 MEQ/L [id number] 00:00:00 Test Item Value Reference Range Interpretation Comments LITHIUM (test code = 203) 0.27 MEQ/L [id number] 00:00:00 Test Item Value Reference Range Interpretation Comments LITHIUM (test code = 2039) 0.27 MEQ/L [id number] 00:00:00 Test Item Value Reference Range Interpretation Comments LITHIUM (test code = 2039) 0.27 MEQ/L LIPID [id number] 00:00:00 Test Item Value Reference Range Interpretation Comments CHOLESTEROL (test code = 2210) 121 MG/DL TRIGLYCERIDES (test code = 2232) 72 MG/DL HDL CHOLESTEROL (test code = 2220) 49 MG/DL CALC LDL CHOL (test code = 2237) 57 MG/DL RISK RATIO LDL/HDL (test code = 1.16 RATIO 2238) LIPID [id number] 00:00:00 Test Item Value Reference Range Interpretation Comments CHOLESTEROL (test code = 2210) 121 MG/DL TRIGLYCERIDES (test code = 2232) 72 MG/DL HDL CHOLESTEROL (test code = 2220) 49 MG/DL CALC LDL CHOL (test code = 2237) 57 MG/DL RISK RATIO LDL/HDL (test code = 1.16 RATIO 2238) LIPID [id number] 00:00:00 Test Item Value Reference Range Interpretation Comments CHOLESTEROL (test code = 2210) 121 MG/DL TRIGLYCERIDES (test code = 2232) 72 MG/DL HDL CHOLESTEROL (test code = 2220) 49 MG/DL CALC LDL CHOL (test code = 2237) 57 MG/DL RISK RATIO LDL/HDL (test code = 1.16 RATIO 2238) [id number] 00:00:00 Test Item Value Reference Range Interpretation Comments TSH, THIRD GENERATION (test code 3.230 UIU/ML = 2821) [id number] 00:00:00 Test Item Value Reference Range Interpretation Comments TSH, THIRD GENERATION (test code 3.230 UIU/ML = 2821) [id number] 00:00:00 Test Item Value Reference Range Interpretation Comments TSH, THIRD GENERATION (test code 3.230 UIU/ML = 2821) [id number] 00:00:00 Test Item Value Reference Range Interpretation Comments MAGNESIUM (test code = 2226) 2.2 MG/DL [id number] 00:00:00 Test Item Value Reference Range Interpretation Comments MAGNESIUM (test code = 2226) 2.2 MG/DL [id number] 00:00:00 Test Item Value Reference Range Interpretation Comments MAGNESIUM (test code = 2226) 2.2 MG/DL VITAMIN [id number] 00:00:00 Test Item Value Reference Range Interpretation Comments VITAMIN B-12 (test code = 2840) 345 PG/ML VITAMIN [id number] 00:00:00 Test Item Value Reference Range Interpretation Comments VITAMIN B-12 (test code = 2840) 345 PG/ML [id number] 00:00:00 Test Item Value Reference Range Interpretation Comments TSH, THIRD GENERATION (test code 3.230 UIU/ML = 2821) VITAMIN [id number] 00:00:00 Test Item Value Reference Range Interpretation Comments VITAMIN B-12 (test code = 2840) 345 PG/ML VITAMIN D, 25 [id number] 00:00:00 Test Item Value Reference Range Interpretation Comments VITAMIN D, 25 OH (test code = 4958) 18 NG/ML VITAMIN D, 25 [id number] 00:00:00 Test Item Value Reference Range Interpretation Comments VITAMIN D, 25 OH (test code = 4958) 18 NG/ML [id number] 00:00:00 Test Item Value Reference Range Interpretation Comments TSH, THIRD GENERATION (test code 3.230 UIU/ML = 2821) [id number] 00:00:00 Test Item Value Reference Range Interpretation Comments MAGNESIUM (test code = 2226) 2.2 MG/DL [id number] 00:00:00 Test Item Value Reference Range Interpretation Comments MAGNESIUM (test code = 2226) 2.2 MG/DL VITAMIN [id number] 00:00:00 Test Item Value Reference Range Interpretation Comments VITAMIN B-12 (test code = 2840) 345 PG/ML VITAMIN [id number] 00:00:00 Test Item Value Reference Range Interpretation Comments VITAMIN B-12 (test code = 2840) 345 PG/ML VITAMIN D, 25 [id number] 00:00:00 Test Item Value Reference Range Interpretation Comments VITAMIN D, 25 OH (test code = 4958) 18 NG/ML COMPREHENSIVE METABOLIC [id number] 00:00:00 Test Item Value Reference Range Interpretation Comments GLUCOSE (test code = 2217) 92 MG/DL BUN (test code = 2208) 8 MG/DL CREATININE (test code = 2214) 0.78 MG/DL eGFR AMER. (test code 101 ML/MIN/1.73 = 10665) eGFR NON- AMER. (test 87 ML/MIN/1.73 code = 14667) CALC BUN/CREAT (test code = 10 RATIO [...] code = 2219) 60 U/L COMPREHENSIVE METABOLIC [id number] 00:00:00 Test Item Value Reference Range Interpretation Comments GLUCOSE (test code = 2217) 92 MG/DL BUN (test code = 2208) 8 MG/DL CREATININE (test code = 2214) 0.78 MG/DL eGFR AMER. (test code 101 ML/MIN/1.73 = 56060) eGFR NON- AMER. (test 87 ML/MIN/1.73 code = 77810) CALC BUN/CREAT (test code = 10 RATIO [...] (test code = 2219) 60 U/L LIPID [id number] 00:00:00 Test Item Value Reference Range Interpretation Comments CHOLESTEROL (test code = 2210) 121 MG/DL TRIGLYCERIDES (test code = 2232) 72 MG/DL HDL CHOLESTEROL (test code = 2220) 49 MG/DL CALC LDL CHOL (test code = 2237) 57 MG/DL RISK RATIO LDL/HDL (test code = 1.16 RATIO 2238) LIPID [id number] 00:00:00 Test Item Value Reference Range Interpretation Comments CHOLESTEROL (test code = 2210) 121 MG/DL TRIGLYCERIDES (test code = 2232) 72 MG/DL HDL CHOLESTEROL (test code = 2220) 49 MG/DL CALC LDL CHOL (test code = 2237) 57 MG/DL RISK RATIO LDL/HDL (test code = 1.16 RATIO 2238) [id number] 00:00:00 Test Item Value Reference Range Interpretation Comments TSH, THIRD GENERATION (test code 3.230 UIU/ML = 2821) [id number] 00:00:00 Test Item Value Reference Range Interpretation Comments TSH, THIRD GENERATION (test code 3.230 UIU/ML = 2821) [id number] 00:00:00 Test Item Value Reference Range Interpretation Comments TSH, THIRD GENERATION (test code 3.230 UIU/ML = 2821) [id number] 00:00:00 Test Item Value Reference Range Interpretation Comments MAGNESIUM (test code = 2226) 2.2 MG/DL [id number] 00:00:00 Test Item Value Reference Range Interpretation Comments MAGNESIUM (test code = 2226) 2.2 MG/DL [id number] 00:00:00 Test Item Value Reference Range Interpretation Comments MAGNESIUM (test code = 2226) 2.2 MG/DL VITAMIN [id number] 00:00:00 Test Item Value Reference Range Interpretation Comments VITAMIN B-12 (test code = 2840) 345 PG/ML VITAMIN [id number] 00:00:00 Test Item Value Reference Range Interpretation Comments VITAMIN B-12 (test code = 2840) 345 PG/ML VITAMIN [id number] 00:00:00 Test Item Value Reference Range Interpretation Comments VITAMIN B-12 (test code = 2840) 345 PG/ML VITAMIN D, 25 [id number] 00:00:00 Test Item Value Reference Range Interpretation Comments VITAMIN D, 25 OH (test code = 4958) 18 NG/ML VITAMIN D, 25 [id number] 00:00:00 Test Item Value Reference Range Interpretation Comments VITAMIN D, 25 OH (test code = 4958) 18 NG/ML COMPREHENSIVE METABOLIC [id number] 00:00:00 Test Item Value Reference Range Interpretation Comments GLUCOSE (test code = 2217) 92 MG/DL BUN (test code = 2208) 8 MG/DL CREATININE (test code = 2214) 0.78 MG/DL eGFR AMER. (test code 101 ML/MIN/1.73 = 59151) eGFR NON- AMER. (test 87 ML/MIN/1.73 code = 08351) CALC BUN/CREAT (test code = 10 RATIO [...] code = 2219) 60 U/L COMPREHENSIVE METABOLIC [id number] 00:00:00 Test Item Value Reference Range Interpretation Comments GLUCOSE (test code = 2217) 92 MG/DL BUN (test code = 2208) 8 MG/DL CREATININE (test code = 2214) 0.78 MG/DL eGFR AMER. (test code 101 ML/MIN/1.73 = 28294) eGFR NON- AMER. (test 87 ML/MIN/1.73 code = 24335) CALC BUN/CREAT (test code = 10 RATIO [...] = 0.9 MG/DL 7) ALKALINE PHOSPHATASE (test 104 U/L code = 2204) AST (test code = 2218) 37 U/L ALT (test code = 2219) 60 U/L LIPID [id number] 00:00:00 Test Item Value Reference Range Interpretation Comments CHOLESTEROL (test code = 2210) 121 MG/DL TRIGLYCERIDES (test code = 2232) 72 MG/DL HDL CHOLESTEROL (test code = 2220) 49 MG/DL CALC LDL CHOL (test code = 2237) 57 MG/DL RISK RATIO LDL/HDL (test code = 1.16 RATIO 2238) LIPID [id number] 00:00:00 Test Item Value Reference Range Interpretation Comments CHOLESTEROL (test code = 2210) 121 MG/DL TRIGLYCERIDES (test code = 2232) 72 MG/DL HDL CHOLESTEROL (test code = 2220) 49 MG/DL CALC LDL CHOL (test code = 2237) 57 MG/DL RISK RATIO LDL/HDL (test code = 1.16 RATIO 2238) [id number] 00:00:00 Test Item Value Reference Range Interpretation Comments TSH, THIRD GENERATION (test code 3.230 UIU/ML = 2821) [id number] 00:00:00 Test Item Value Reference Range Interpretation Comments TSH, THIRD GENERATION (test code 3.230 UIU/ML = 2821) [id number] 00:00:00 Test Item Value Reference Range Interpretation Comments TSH, THIRD GENERATION (test code 3.230 UIU/ML = 2821) [id number] 00:00:00 Test Item Value Reference Range Interpretation Comments MAGNESIUM (test code = 2226) 2.2 MG/DL [id number] 00:00:00 Test Item Value Reference Range Interpretation Comments MAGNESIUM (test code = 2226) 2.2 MG/DL [id number] 00:00:00 Test Item Value Reference Range Interpretation Comments MAGNESIUM (test code = 2226) 2.2 MG/DL VITAMIN [id number] 00:00:00 Test Item Value Reference Range Interpretation Comments VITAMIN B-12 (test code = 2840) 345 PG/ML VITAMIN [id number] 00:00:00 Test Item Value Reference Range Interpretation Comments VITAMIN B-12 (test code = 2840) 345 PG/ML VITAMIN [id number] 00:00:00 Test Item Value Reference Range Interpretation Comments VITAMIN B-12 (test code = 2840) 345 PG/ML VITAMIN D, 25 [id number] 00:00:00 Test Item Value Reference Range Interpretation Comments VITAMIN D, 25 OH (test code = 4958) 18 NG/ML VITAMIN D, 25 [id number] 00:00:00 Test Item Value Reference Range Interpretation Comments VITAMIN D, 25 OH (test code = 4958) 18 NG/ML COMPREHENSIVE METABOLIC [id number] 00:00:00 Test Item Value Reference Range Interpretation Comments GLUCOSE (test code = 2217) 92 MG/DL BUN (test code = 2208) 8 MG/DL CREATININE (test code = 2214) 0.78 MG/DL eGFR AMER. (test code 101 ML/MIN/1.73 = 43392) eGFR NON- AMER. (test 87 ML/MIN/1.73 code = 93982) CALC BUN/CREAT (test code = 10 RATIO [...] code = 2219) 60 U/L COMPREHENSIVE METABOLIC [id number] 00:00:00 Test Item Value Reference Range Interpretation Comments GLUCOSE (test code = 2217) 92 MG/DL BUN (test code = 2208) 8 MG/DL CREATININE (test code = 2214) 0.78 MG/DL eGFR AMER. (test code 101 ML/MIN/1.73 = 64902) eGFR NON- AMER. (test 87 ML/MIN/1.73 code = 60603) CALC BUN/CREAT (test code = 10 RATIO [...] (test code = 2219) 60 U/L LIPID [id number] 00:00:00 Test Item Value Reference Range Interpretation Comments CHOLESTEROL (test code = 2210) 121 MG/DL TRIGLYCERIDES (test code = 2232) 72 MG/DL HDL CHOLESTEROL (test code = 2220) 49 MG/DL CALC LDL CHOL (test code = 2237) 57 MG/DL RISK RATIO LDL/HDL (test code = 1.16 RATIO 2238) LIPID [id number] 00:00:00 Test Item Value Reference Range Interpretation Comments CHOLESTEROL (test code = 2210) 121 MG/DL TRIGLYCERIDES (test code = 2232) 72 MG/DL HDL CHOLESTEROL (test code = 2220) 49 MG/DL CALC LDL CHOL (test code = 2237) 57 MG/DL RISK RATIO LDL/HDL (test code = 1.16 RATIO 2238) [id number] 00:00:00 Test Item Value Reference Range Interpretation Comments TSH, THIRD GENERATION (test code 3.230 UIU/ML = 2821) [id number] 00:00:00 Test Item Value Reference Range Interpretation Comments TSH, THIRD GENERATION (test code 3.230 UIU/ML = 2821) [id number] 00:00:00 Test Item Value Reference Range Interpretation Comments TSH, THIRD GENERATION (test code 3.230 UIU/ML = 2821) [id number] 00:00:00 Test Item Value Reference Range Interpretation Comments MAGNESIUM (test code = 2226) 2.2 MG/DL [id number] 00:00:00 Test Item Value Reference Range Interpretation Comments MAGNESIUM (test code = 2226) 2.2 MG/DL [id number] 00:00:00 Test Item Value Reference Range Interpretation Comments MAGNESIUM (test code = 2226) 2.2 MG/DL VITAMIN [id number] 00:00:00 Test Item Value Reference Range Interpretation Comments VITAMIN B-12 (test code = 2840) 345 PG/ML VITAMIN [id number] 00:00:00 Test Item Value Reference Range Interpretation Comments VITAMIN B-12 (test code = 2840) 345 PG/ML VITAMIN [id number] 00:00:00 Test Item Value Reference Range Interpretation Comments VITAMIN B-12 (test code = 2840) 345 PG/ML VITAMIN D, 25 [id number] 00:00:00 Test Item Value Reference Range Interpretation Comments VITAMIN D, 25 OH (test code = 4958) 18 NG/ML VITAMIN D, 25 [id number] 00:00:00 Test Item Value Reference Range Interpretation Comments VITAMIN D, 25 OH (test code = 4958) 18 NG/ML COMPREHENSIVE METABOLIC [id number] 00:00:00 Test Item Value Reference Range Interpretation Comments GLUCOSE (test code = 2217) 92 MG/DL BUN (test code = 2208) 8 MG/DL CREATININE (test code = 2214) 0.78 MG/DL eGFR AMER. (test code 101 ML/MIN/1.73 = 96114) eGFR NON- AMER. (test 87 ML/MIN/1.73 code = 61235) CALC BUN/CREAT (test code = 10 RATIO [...] code = 2219) 60 U/L COMPREHENSIVE METABOLIC [id number] 00:00:00 Test Item Value Reference Range Interpretation Comments GLUCOSE (test code = 2217) 92 MG/DL BUN (test code = 2208) 8 MG/DL CREATININE (test code = 2214) 0.78 MG/DL eGFR AMER. (test code 101 ML/MIN/1.73 = 46374) eGFR NON- AMER. (test 87 ML/MIN/1.73 code = 83766) CALC BUN/CREAT (test code = 10 RATIO [...] (test code = 2219) 60 U/L LIPID [id number] 00:00:00 Test Item Value Reference Range Interpretation Comments CHOLESTEROL (test code = 2210) 121 MG/DL TRIGLYCERIDES (test code = 2232) 72 MG/DL HDL CHOLESTEROL (test code = 2220) 49 MG/DL CALC LDL CHOL (test code = 2237) 57 MG/DL RISK RATIO LDL/HDL (test code = 1.16 RATIO 2238) LIPID [id number] 00:00:00 Test Item Value Reference Range Interpretation Comments CHOLESTEROL (test code = 2210) 121 MG/DL TRIGLYCERIDES (test code = 2232) 72 MG/DL HDL CHOLESTEROL (test code = 2220) 49 MG/DL CALC LDL CHOL (test code = 2237) 57 MG/DL RISK RATIO LDL/HDL (test code = 1.16 RATIO 2238) [id number] 00:00:00 Test Item Value Reference Range Interpretation Comments TSH, THIRD GENERATION (test code 3.230 UIU/ML = 2821) [id number] 00:00:00 Test Item Value Reference Range Interpretation Comments TSH, THIRD GENERATION (test code 3.230 UIU/ML = 2821) [id number] 00:00:00 Test Item Value Reference Range Interpretation Comments TSH, THIRD GENERATION (test code 3.230 UIU/ML = 2821) [id number] 00:00:00 Test Item Value Reference Range Interpretation Comments MAGNESIUM (test code = 2226) 2.2 MG/DL [id number] 00:00:00 Test Item Value Reference Range Interpretation Comments MAGNESIUM (test code = 2226) 2.2 MG/DL [id number] 00:00:00 Test Item Value Reference Range Interpretation Comments MAGNESIUM (test code = 2226) 2.2 MG/DL VITAMIN [id number] 00:00:00 Test Item Value Reference Range Interpretation Comments VITAMIN B-12 (test code = 2840) 345 PG/ML VITAMIN [id number] 00:00:00 Test Item Value Reference Range Interpretation Comments VITAMIN B-12 (test code = 2840) 345 PG/ML VITAMIN [id number] 00:00:00 Test Item Value Reference Range Interpretation Comments VITAMIN B-12 (test code = 2840) 345 PG/ML VITAMIN D, 25 [id number] 00:00:00 Test Item Value Reference Range Interpretation Comments VITAMIN D, 25 OH (test code = 4958) 18 NG/ML VITAMIN D, 25 [id number] 00:00:00 Test Item Value Reference Range Interpretation Comments VITAMIN D, 25 OH (test code = 4958) 18 NG/ML COMPREHENSIVE METABOLIC [id number] 00:00:00 Test Item Value Reference Range Interpretation Comments GLUCOSE (test code = 2217) 92 MG/DL BUN (test code = 2208) 8 MG/DL CREATININE (test code = 2214) 0.78 MG/DL eGFR AMER. (test code 101 ML/MIN/1.73 = 76416) eGFR NON- AMER. (test 87 ML/MIN/1.73 code = 76935) CALC BUN/CREAT (test code = 10 RATIO [...] code = 2219) 60 U/L COMPREHENSIVE METABOLIC [id number] 00:00:00 Test Item Value Reference Range Interpretation Comments GLUCOSE (test code = 2217) 92 MG/DL BUN (test code = 2208) 8 MG/DL CREATININE (test code = 2214) 0.78 MG/DL eGFR AMER. (test code 101 ML/MIN/1.73 = 32398) eGFR NON- AMER. (test 87 ML/MIN/1.73 code = 77861) CALC BUN/CREAT (test code = 10 RATIO [...] (test code = 2219) 60 U/L LIPID [id number] 00:00:00 Test Item Value Reference Range Interpretation Comments CHOLESTEROL (test code = 2210) 121 MG/DL TRIGLYCERIDES (test code = 2232) 72 MG/DL HDL CHOLESTEROL (test code = 2220) 49 MG/DL CALC LDL CHOL (test code = 2237) 57 MG/DL RISK RATIO LDL/HDL (test code = 1.16 RATIO 2238) LIPID [id number] 00:00:00 Test Item Value Reference Range Interpretation Comments CHOLESTEROL (test code = 2210) 121 MG/DL TRIGLYCERIDES (test code = 2232) 72 MG/DL HDL CHOLESTEROL (test code = 2220) 49 MG/DL CALC LDL CHOL (test code = 2237) 57 MG/DL RISK RATIO LDL/HDL (test code = 1.16 RATIO 2238) [id number] 00:00:00 Test Item Value Reference Range Interpretation Comments TSH, THIRD GENERATION (test code 3.230 UIU/ML = 2821) [id number] 00:00:00 Test Item Value Reference Range Interpretation Comments TSH, THIRD GENERATION (test code 3.230 UIU/ML = 2821) [id number] 00:00:00 Test Item Value Reference Range Interpretation Comments TSH, THIRD GENERATION (test code 3.230 UIU/ML = 2821) [id number] 00:00:00 Test Item Value Reference Range Interpretation Comments MAGNESIUM (test code = 2226) 2.2 MG/DL [id number] 00:00:00 Test Item Value Reference Range Interpretation Comments MAGNESIUM (test code = 2226) 2.2 MG/DL [id number] 00:00:00 Test Item Value Reference Range Interpretation Comments MAGNESIUM (test code = 2226) 2.2 MG/DL VITAMIN [id number] 00:00:00 Test Item Value Reference Range Interpretation Comments VITAMIN B-12 (test code = 2840) 345 PG/ML VITAMIN [id number] 00:00:00 Test Item Value Reference Range Interpretation Comments VITAMIN B-12 (test code = 2840) 345 PG/ML VITAMIN [id number] 00:00:00 Test Item Value Reference Range Interpretation Comments VITAMIN B-12 (test code = 2840) 345 PG/ML VITAMIN D, 25 [id number] 00:00:00 Test Item Value Reference Range Interpretation Comments VITAMIN D, 25 OH (test code = 4958) 18 NG/ML VITAMIN D, 25 [id number] 00:00:00 Test Item Value Reference Range Interpretation Comments VITAMIN D, 25 OH (test code = 4958) 18 NG/ML COMPREHENSIVE METABOLIC [id number] 00:00:00 Test Item Value Reference Range Interpretation Comments GLUCOSE (test code = 2217) 92 MG/DL BUN (test code = 2208) 8 MG/DL CREATININE (test code = 2214) 0.78 MG/DL eGFR AMER. (test code 101 ML/MIN/1.73 = 72560) eGFR NON- AMER. (test 87 ML/MIN/1.73 code = 32751) CALC BUN/CREAT (test code = 10 RATIO [...] code = 2219) 60 U/L COMPREHENSIVE METABOLIC [id number] 00:00:00 Test Item Value Reference Range Interpretation Comments GLUCOSE (test code = 2217) 92 MG/DL BUN (test code = 2208) 8 MG/DL CREATININE (test code = 2214) 0.78 MG/DL eGFR AMER. (test code 101 ML/MIN/1.73 = 23828) eGFR NON- AMER. (test 87 ML/MIN/1.73 code = 18874) CALC BUN/CREAT (test code = 10 RATIO [...] (test code = 2219) 60 U/L LIPID [id number] 00:00:00 Test Item Value Reference Range Interpretation Comments CHOLESTEROL (test code = 2210) 121 MG/DL TRIGLYCERIDES (test code = 2232) 72 MG/DL HDL CHOLESTEROL (test code = 2220) 49 MG/DL CALC LDL CHOL (test code = 2237) 57 MG/DL RISK RATIO LDL/HDL (test code = 1.16 RATIO 2238) LIPID [id number] 00:00:00 Test Item Value Reference Range Interpretation Comments CHOLESTEROL (test code = 2210) 121 MG/DL TRIGLYCERIDES (test code = 2232) 72 MG/DL HDL CHOLESTEROL (test code = 2220) 49 MG/DL CALC LDL CHOL (test code = 2237) 57 MG/DL RISK RATIO LDL/HDL (test code = 1.16 RATIO 2238) [id number] 00:00:00 Test Item Value Reference Range Interpretation Comments TSH, THIRD GENERATION (test code 3.230 UIU/ML = 2821) [id number] 00:00:00 Test Item Value Reference Range Interpretation Comments TSH, THIRD GENERATION (test code 3.230 UIU/ML = 2821) [id number] 00:00:00 Test Item Value Reference Range Interpretation Comments TSH, THIRD GENERATION (test code 3.230 UIU/ML = 2821) [id number] 00:00:00 Test Item Value Reference Range Interpretation Comments MAGNESIUM (test code = 2226) 2.2 MG/DL [id number] 00:00:00 Test Item Value Reference Range Interpretation Comments MAGNESIUM (test code = 2226) 2.2 MG/DL [id number] 00:00:00 Test Item Value Reference Range Interpretation Comments MAGNESIUM (test code = 2226) 2.2 MG/DL VITAMIN [id number] 00:00:00 Test Item Value Reference Range Interpretation Comments VITAMIN B-12 (test code = 2840) 345 PG/ML VITAMIN [id number] 00:00:00 Test Item Value Reference Range Interpretation Comments VITAMIN B-12 (test code = 2840) 345 PG/ML VITAMIN [id number] 00:00:00 Test Item Value Reference Range Interpretation Comments VITAMIN B-12 (test code = 2840) 345 PG/ML VITAMIN D, 25 [id number] 00:00:00 Test Item Value Reference Range Interpretation Comments VITAMIN D, 25 OH (test code = 4958) 18 NG/ML VITAMIN D, 25 [id number] 00:00:00 Test Item Value Reference Range Interpretation Comments VITAMIN D, 25 OH (test code = 4958) 18 NG/ML COMPREHENSIVE METABOLIC [id number] 00:00:00 Test Item Value Reference Range Interpretation Comments GLUCOSE (test code = 2217) 92 MG/DL BUN (test code = 2208) 8 MG/DL CREATININE (test code = 2214) 0.78 MG/DL eGFR AMER. (test code 101 ML/MIN/1.73 = 98017) eGFR NON- AMER. (test 87 ML/MIN/1.73 code = 72231) CALC BUN/CREAT (test code = 10 RATIO [...] code = 2219) 60 U/L COMPREHENSIVE METABOLIC [id number] 00:00:00 Test Item Value Reference Range Interpretation Comments GLUCOSE (test code = 2217) 92 MG/DL BUN (test code = 2208) 8 MG/DL CREATININE (test code = 2214) 0.78 MG/DL eGFR AMER. (test code 101 ML/MIN/1.73 = 64709) eGFR NON- AMER. (test 87 ML/MIN/1.73 code = 51988) CALC BUN/CREAT (test code = 10 RATIO [...] (test code = 2219) 60 U/L LIPID [id number] 00:00:00 Test Item Value Reference Range Interpretation Comments CHOLESTEROL (test code = 2210) 121 MG/DL TRIGLYCERIDES (test code = 2232) 72 MG/DL HDL CHOLESTEROL (test code = 2220) 49 MG/DL CALC LDL CHOL (test code = 2237) 57 MG/DL RISK RATIO LDL/HDL (test code = 1.16 RATIO 2238) LIPID [id number] 00:00:00 Test Item Value Reference Range Interpretation Comments CHOLESTEROL (test code = 2210) 121 MG/DL TRIGLYCERIDES (test code = 2232) 72 MG/DL HDL CHOLESTEROL (test code = 2220) 49 MG/DL CALC LDL CHOL (test code = 2237) 57 MG/DL RISK RATIO LDL/HDL (test code = 1.16 RATIO 2238) [id number] 00:00:00 Test Item Value Reference Range Interpretation Comments TSH, THIRD GENERATION (test code 3.230 UIU/ML = 2821) [id number] 00:00:00 Test Item Value Reference Range Interpretation Comments TSH, THIRD GENERATION (test code 3.230 UIU/ML = 2821) [id number] 00:00:00 Test Item Value Reference Range Interpretation Comments TSH, THIRD GENERATION (test code 3.230 UIU/ML = 2821) [id number] 00:00:00 Test Item Value Reference Range Interpretation Comments MAGNESIUM (test code = 2226) 2.2 MG/DL [id number] 00:00:00 Test Item Value Reference Range Interpretation Comments MAGNESIUM (test code = 2226) 2.2 MG/DL [id number] 00:00:00 Test Item Value Reference Range Interpretation Comments MAGNESIUM (test code = 2226) 2.2 MG/DL VITAMIN [id number] 00:00:00 Test Item Value Reference Range Interpretation Comments VITAMIN B-12 (test code = 2840) 345 PG/ML VITAMIN [id number] 00:00:00 Test Item Value Reference Range Interpretation Comments VITAMIN B-12 (test code = 2840) 345 PG/ML VITAMIN [id number] 00:00:00 Test Item Value Reference Range Interpretation Comments VITAMIN B-12 (test code = 2840) 345 PG/ML VITAMIN D, 25 [id number] 00:00:00 Test Item Value Reference Range Interpretation Comments VITAMIN D, 25 OH (test code = 4958) 18 NG/ML VITAMIN D, 25 [id number] 00:00:00 Test Item Value Reference Range Interpretation Comments VITAMIN D, 25 OH (test code = 4958) 18 NG/ML COMPREHENSIVE METABOLIC [id number] 00:00:00 Test Item Value Reference Range Interpretation Comments GLUCOSE (test code = 2217) 92 MG/DL BUN (test code = 2208) 8 MG/DL CREATININE (test code = 2214) 0.78 MG/DL eGFR AMER. (test code 101 ML/MIN/1.73 = 81726) eGFR NON- AMER. (test 87 ML/MIN/1.73 code = 26931) CALC BUN/CREAT (test code = 10 RATIO [...] code = 2219) 60 U/L COMPREHENSIVE METABOLIC [id number] 00:00:00 Test Item Value Reference Range Interpretation Comments GLUCOSE (test code = 2217) 92 MG/DL BUN (test code = 2208) 8 MG/DL CREATININE (test code = 2214) 0.78 MG/DL eGFR AMER. (test code 101 ML/MIN/1.73 = 86376) eGFR NON- AMER. (test 87 ML/MIN/1.73 code = 75501) CALC BUN/CREAT (test code = 10 RATIO [...] (test code = 2219) 60 U/L LIPID [id number] 00:00:00 Test Item Value Reference Range Interpretation Comments CHOLESTEROL (test code = 2210) 121 MG/DL TRIGLYCERIDES (test code = 2232) 72 MG/DL HDL CHOLESTEROL (test code = 2220) 49 MG/DL CALC LDL CHOL (test code = 2237) 57 MG/DL RISK RATIO LDL/HDL (test code = 1.16 RATIO 2238) LIPID [id number] 00:00:00 Test Item Value Reference Range Interpretation Comments CHOLESTEROL (test code = 2210) 121 MG/DL TRIGLYCERIDES (test code = 2232) 72 MG/DL HDL CHOLESTEROL (test code = 2220) 49 MG/DL CALC LDL CHOL (test code = 2237) 57 MG/DL RISK RATIO LDL/HDL (test code = 1.16 RATIO 2238) [id number] 00:00:00 Test Item Value Reference Range Interpretation Comments TSH, THIRD GENERATION (test code 3.230 UIU/ML = 2821) [id number] 00:00:00 Test Item Value Reference Range Interpretation Comments TSH, THIRD GENERATION (test code 3.230 UIU/ML = 2821) [id number] 00:00:00 Test Item Value Reference Range Interpretation Comments TSH, THIRD GENERATION (test code 3.230 UIU/ML = 2821) [id number] 00:00:00 Test Item Value Reference Range Interpretation Comments MAGNESIUM (test code = 2226) 2.2 MG/DL [id number] 00:00:00 Test Item Value Reference Range Interpretation Comments MAGNESIUM (test code = 2226) 2.2 MG/DL [id number] 00:00:00 Test Item Value Reference Range Interpretation Comments MAGNESIUM (test code = 2226) 2.2 MG/DL VITAMIN [id number] 00:00:00 Test Item Value Reference Range Interpretation Comments VITAMIN B-12 (test code = 2840) 345 PG/ML VITAMIN [id number] 00:00:00 Test Item Value Reference Range Interpretation Comments VITAMIN B-12 (test code = 2840) 345 PG/ML VITAMIN [id number] 00:00:00 Test Item Value Reference Range Interpretation Comments VITAMIN B-12 (test code = 2840) 345 PG/ML VITAMIN D, 25 [id number] 00:00:00 Test Item Value Reference Range Interpretation Comments VITAMIN D, 25 OH (test code = 4958) 18 NG/ML VITAMIN D, 25 [id number] 00:00:00 Test Item Value Reference Range Interpretation Comments VITAMIN D, 25 OH (test code = 4958) 18 NG/ML COMPREHENSIVE METABOLIC [id number] 00:00:00 Test Item Value Reference Range Interpretation Comments GLUCOSE (test code = 2217) 92 MG/DL BUN (test code = 2208) 8 MG/DL CREATININE (test code = 2214) 0.78 MG/DL eGFR AMER. (test code 101 ML/MIN/1.73 = 68114) eGFR NON- AMER. (test 87 ML/MIN/1.73 code = 69180) CALC BUN/CREAT (test code = 10 RATIO [...] code = 2219) 60 U/L COMPREHENSIVE METABOLIC [id number] 00:00:00 Test Item Value Reference Range Interpretation Comments GLUCOSE (test code = 2217) 92 MG/DL BUN (test code = 2208) 8 MG/DL CREATININE (test code = 2214) 0.78 MG/DL eGFR AMER. (test code 101 ML/MIN/1.73 = 61111) eGFR NON- AMER. (test 87 ML/MIN/1.73 code = 30672) CALC BUN/CREAT (test code = 10 RATIO [...] (test code = 2219) 60 U/L LIPID [id number] 00:00:00 Test Item Value Reference Range Interpretation Comments CHOLESTEROL (test code = 2210) 121 MG/DL TRIGLYCERIDES (test code = 2232) 72 MG/DL HDL CHOLESTEROL (test code = 2220) 49 MG/DL CALC LDL CHOL (test code = 2237) 57 MG/DL RISK RATIO LDL/HDL (test code = 1.16 RATIO 2238) LIPID [id number] 00:00:00 Test Item Value Reference Range Interpretation Comments CHOLESTEROL (test code = 2210) 121 MG/DL TRIGLYCERIDES (test code = 2232) 72 MG/DL HDL CHOLESTEROL (test code = 2220) 49 MG/DL CALC LDL CHOL (test code = 2237) 57 MG/DL RISK RATIO LDL/HDL (test code = 1.16 RATIO 2238) [id number] 00:00:00 Test Item Value Reference Range Interpretation Comments TSH, THIRD GENERATION (test code 3.230 UIU/ML = 2821) [id number] 00:00:00 Test Item Value Reference Range Interpretation Comments TSH, THIRD GENERATION (test code 3.230 UIU/ML = 2821) [id number] 00:00:00 Test Item Value Reference Range Interpretation Comments TSH, THIRD GENERATION (test code 3.230 UIU/ML = 2821) [id number] 00:00:00 Test Item Value Reference Range Interpretation Comments MAGNESIUM (test code = 2226) 2.2 MG/DL [id number] 00:00:00 Test Item Value Reference Range Interpretation Comments MAGNESIUM (test code = 2226) 2.2 MG/DL [id number] 00:00:00 Test Item Value Reference Range Interpretation Comments MAGNESIUM (test code = 2226) 2.2 MG/DL VITAMIN [id number] 00:00:00 Test Item Value Reference Range Interpretation Comments VITAMIN B-12 (test code = 2840) 345 PG/ML VITAMIN [id number] 00:00:00 Test Item Value Reference Range Interpretation Comments VITAMIN B-12 (test code = 2840) 345 PG/ML VITAMIN [id number] 00:00:00 Test Item Value Reference Range Interpretation Comments VITAMIN B-12 (test code = 2840) 345 PG/ML VITAMIN D, 25 [id number] 00:00:00 Test Item Value Reference Range Interpretation Comments VITAMIN D, 25 OH (test code = 4958) 18 NG/ML VITAMIN D, 25 [id number] 00:00:00 Test Item Value Reference Range Interpretation Comments VITAMIN D, 25 OH (test code = 4958) 18 NG/ML COMPREHENSIVE METABOLIC [id number] 00:00:00 Test Item Value Reference Range Interpretation Comments GLUCOSE (test code = 2217) 92 MG/DL BUN (test code = 2208) 8 MG/DL CREATININE (test code = 2214) 0.78 MG/DL eGFR AMER. (test code 101 ML/MIN/1.73 = 73390) eGFR NON- AMER. (test 87 ML/MIN/1.73 code = 09245) CALC BUN/CREAT (test code = 10 RATIO [...] code = 2219) 60 U/L COMPREHENSIVE METABOLIC [id number] 00:00:00 Test Item Value Reference Range Interpretation Comments GLUCOSE (test code = 2217) 92 MG/DL BUN (test code = 2208) 8 MG/DL CREATININE (test code = 2214) 0.78 MG/DL eGFR AMER. (test code 101 ML/MIN/1.73 = 38170) eGFR NON- AMER. (test 87 ML/MIN/1.73 code = 96689) CALC BUN/CREAT (test code = 10 RATIO [...] (test code = 2219) 60 U/L LIPID [id number] 00:00:00 Test Item Value Reference Range Interpretation Comments CHOLESTEROL (test code = 2210) 121 MG/DL TRIGLYCERIDES (test code = 2232) 72 MG/DL HDL CHOLESTEROL (test code = 2220) 49 MG/DL CALC LDL CHOL (test code = 2237) 57 MG/DL RISK RATIO LDL/HDL (test code = 1.16 RATIO 2238) LIPID [id number] 00:00:00 Test Item Value Reference Range Interpretation Comments CHOLESTEROL (test code = 2210) 121 MG/DL TRIGLYCERIDES (test code = 2232) 72 MG/DL HDL CHOLESTEROL (test code = 2220) 49 MG/DL CALC LDL CHOL (test code = 2237) 57 MG/DL RISK RATIO LDL/HDL (test code = 1.16 RATIO 2238) [id number] 00:00:00 Test Item Value Reference Range Interpretation Comments TSH, THIRD GENERATION (test code 3.230 UIU/ML = 2821) [id number] 00:00:00 Test Item Value Reference Range Interpretation Comments TSH, THIRD GENERATION (test code 3.230 UIU/ML = 2821) [id number] 00:00:00 Test Item Value Reference Range Interpretation Comments TSH, THIRD GENERATION (test code 3.230 UIU/ML = 2821) [id number] 00:00:00 Test Item Value Reference Range Interpretation Comments MAGNESIUM (test code = 2226) 2.2 MG/DL [id number] 00:00:00 Test Item Value Reference Range Interpretation Comments MAGNESIUM (test code = 2226) 2.2 MG/DL [id number] 00:00:00 Test Item Value Reference Range Interpretation Comments MAGNESIUM (test code = 2226) 2.2 MG/DL VITAMIN [id number] 00:00:00 Test Item Value Reference Range Interpretation Comments VITAMIN B-12 (test code = 2840) 345 PG/ML VITAMIN [id number] 00:00:00 Test Item Value Reference Range Interpretation Comments VITAMIN B-12 (test code = 2840) 345 PG/ML VITAMIN [id number] 00:00:00 Test Item Value Reference Range Interpretation Comments VITAMIN B-12 (test code = 2840) 345 PG/ML VITAMIN D, 25 [id number] 00:00:00 Test Item Value Reference Range Interpretation Comments VITAMIN D, 25 OH (test code = 4958) 18 NG/ML VITAMIN D, 25 [id number] 00:00:00 Test Item Value Reference Range Interpretation Comments VITAMIN D, 25 OH (test code = 4958) 18 NG/ML COMPREHENSIVE METABOLIC [id number] 00:00:00 Test Item Value Reference Range Interpretation Comments GLUCOSE (test code = 2217) 92 MG/DL BUN (test code = 2208) 8 MG/DL CREATININE (test code = 2214) 0.78 MG/DL eGFR AMER. (test code 101 ML/MIN/1.73 = 45215) eGFR NON- AMER. (test 87 ML/MIN/1.73 code = 62745) CALC BUN/CREAT (test code = 10 RATIO [...] code = 2219) 60 U/L COMPREHENSIVE METABOLIC [id number] 00:00:00 Test Item Value Reference Range Interpretation Comments GLUCOSE (test code = 2217) 92 MG/DL BUN (test code = 2208) 8 MG/DL CREATININE (test code = 2214) 0.78 MG/DL eGFR AMER. (test code 101 ML/MIN/1.73 = 96736) eGFR NON- AMER. (test 87 ML/MIN/1.73 code = 00904) CALC BUN/CREAT (test code = 10 RATIO [...] code = 2219) 60 U/L COMPREHENSIVE METABOLIC [id number] 00:00:00 Test Item Value Reference Range Interpretation Comments GLUCOSE (test code = 2217) 92 MG/DL BUN (test code = 2208) 8 MG/DL CREATININE (test code = 2214) 0.78 MG/DL eGFR AMER. (test code 101 ML/MIN/1.73 = 61088) eGFR NON- AMER. (test 87 ML/MIN/1.73 code = 37940) CALC BUN/CREAT (test code = 10 RATIO [...] ALKALINE PHOSPHATASE (test 104 U/L code = 220) AST (test code = 2218) 37 U/L ALT (test code = 2219) 60 U/L PAP TEST, THINPREP, [id number] 00:00:00 Test Item Value Reference Range Interpretation Comments SOURCE: (test code = Cervical/Endocervical 8001) SLIDES: (test code = 1 8011) LMP: (test code = 8021) SEE NOTE SPECIMEN ADEQUACY: (test (NOTE) code = 91702) INTERPRETATION: (test NILM/NO EPITH. code = 82253) ABNORMALITY;SEE BELOW OTHER COMMENTS: (test (NOTE) code = 8081) CHICKEN CLEANER: (test LIGIA Haile (ASCP) code = 8101) LOCATION: (test code = (NOTE) 07124) CPT: (test code = 8140) (NOTE) PAP TEST, THINPREP, [id number] 00:00:00 Test Item Value Reference Range Interpretation Comments SOURCE: (test code = Cervical/Endocervical 8001) SLIDES: (test code = 1 8011) LMP: (test code = 8021) SEE NOTE SPECIMEN ADEQUACY: (test (NOTE) code = 91468) INTERPRETATION: (test NILM/NO EPITH. code = 88313) ABNORMALITY;SEE BELOW OTHER COMMENTS: (test (NOTE) code = 8081) CHICKEN CLEANER: (test LIGIA Haile (ASCP) code = 8101) LOCATION: (test code = (NOTE) 31773) CPT: (test code = 8140) (NOTE) HPV HIGH RISK WITH GENOTYPE, [id number] 00:00:00 Test Item Value Reference Range Interpretation Comments HPV HIGH RISK INTERP (test code = NEGATIVE 57132) HPV 16 (test code = 34140) NEGATIVE HPV 18 (test code = 28992) NEGATIVE HPV, HR, OTHER GENOTYPES (test code NEGATIVE = 72822) HPV HIGH RISK WITH GENOTYPE, [id number] 00:00:00 Test Item Value Reference Range Interpretation Comments HPV HIGH RISK INTERP (test code = NEGATIVE 81341) HPV 16 (test code = 07205) NEGATIVE HPV 18 (test code = 24938) NEGATIVE HPV, HR, OTHER GENOTYPES (test code NEGATIVE = 32267) HPV HIGH RISK WITH GENOTYPE, [id number] 00:00:00 Test Item Value Reference Range Interpretation Comments HPV HIGH RISK INTERP (test code = NEGATIVE 49562) HPV 16 (test code = 25856) NEGATIVE HPV 18 (test code = 11571) NEGATIVE HPV, HR, OTHER GENOTYPES (test code NEGATIVE = 14185) PAP TEST, THINPREP, [id number] 00:00:00 Test Item Value Reference Range Interpretation Comments SOURCE: (test code = Cervical/Endocervical 8001) SLIDES: (test code = 1 8011) LMP: (test code = 8021) SEE NOTE SPECIMEN ADEQUACY: (test (NOTE) code = 46118) INTERPRETATION: (test NILM/NO EPITH. code = 15449) ABNORMALITY;SEE BELOW OTHER COMMENTS: (test (NOTE) code = 8081) CHICKEN CLEANER: (test LIGIA Haile (ASCP) code = 8101) LOCATION: (test code = (NOTE) 89361) CPT: (test code = 8140) (NOTE) PAP TEST, THINPREP, [id number] 00:00:00 Test Item Value Reference Range Interpretation Comments SOURCE: (test code = Cervical/Endocervical 8001) SLIDES: (test code = 1 8011) LMP: (test code = 8021) SEE NOTE SPECIMEN ADEQUACY: (test (NOTE) code = 16246) INTERPRETATION: (test NILM/NO EPITH. code = 12226) ABNORMALITY;SEE BELOW OTHER COMMENTS: (test (NOTE) code = 8081) CHICKEN CLEANER: (test Yoselin Enrique CT (ASCP) code = 8101) LOCATION: (test code = (NOTE) 08682) CPT: (test code = 8140) (NOTE) HPV HIGH RISK WITH GENOTYPE, [id number] 00:00:00 Test Item Value Reference Range Interpretation Comments HPV HIGH RISK INTERP (test code = NEGATIVE 55008) HPV 16 (test code = 40639) NEGATIVE HPV 18 (test code = 38626) NEGATIVE HPV, HR, OTHER GENOTYPES (test code NEGATIVE = 10218) HPV HIGH RISK WITH GENOTYPE, [id number] 00:00:00 Test Item Value Reference Range Interpretation Comments HPV HIGH RISK INTERP (test code = NEGATIVE 60026) HPV 16 (test code = 56457) NEGATIVE HPV 18 (test code = 35200) NEGATIVE HPV, HR, OTHER GENOTYPES (test code NEGATIVE = 44772) PAP TEST, THINPREP, [id number] 00:00:00 Test Item Value Reference Range Interpretation Comments SOURCE: (test code = Cervical/Endocervical 8001) SLIDES: (test code = 1 8011) LMP: (test code = 8021) SEE NOTE SPECIMEN ADEQUACY: (test (NOTE) code = 61055) INTERPRETATION: (test NILM/NO EPITH. code = 94673) ABNORMALITY;SEE BELOW OTHER COMMENTS: (test (NOTE) code = 8081) CHICKEN CLEANER: (test Yoselin Enrique CT (ASCP) code = 8101) LOCATION: (test code = (NOTE) 73761) CPT: (test code = 8140) (NOTE) PAP TEST, THINPREP, [id number] 00:00:00 Test Item Value Reference Range Interpretation Comments SOURCE: (test code = Cervical/Endocervical 8001) SLIDES: (test code = 1 8011) LMP: (test code = 8021) SEE NOTE SPECIMEN ADEQUACY: (test (NOTE) code = 26752) INTERPRETATION: (test NILM/NO EPITH. code = 62439) ABNORMALITY;SEE BELOW OTHER COMMENTS: (test (NOTE) code = 8081) CHICKEN CLEANER: (test Yoselin Enrique CT (ASCP) code = 8101) LOCATION: (test code = (NOTE) 90805) CPT: (test code = 8140) (NOTE) HPV HIGH RISK WITH GENOTYPE, [id number] 00:00:00 Test Item Value Reference Range Interpretation Comments HPV HIGH RISK INTERP (test code = NEGATIVE 11479) HPV 16 (test code = 82866) NEGATIVE HPV 18 (test code = 64947) NEGATIVE HPV, HR, OTHER GENOTYPES (test code NEGATIVE = 24074) HPV HIGH RISK WITH GENOTYPE, [id number] 00:00:00 Test Item Value Reference Range Interpretation Comments HPV HIGH RISK INTERP (test code = NEGATIVE 91442) HPV 16 (test code = 62830) NEGATIVE HPV 18 (test code = 43774) NEGATIVE HPV, HR, OTHER GENOTYPES (test code NEGATIVE = 47735) PAP TEST, THINPREP, [id number] 00:00:00 Test Item Value Reference Range Interpretation Comments SOURCE: (test code = Cervical/Endocervical 8001) SLIDES: (test code = 1 8011) LMP: (test code = 8021) SEE NOTE SPECIMEN ADEQUACY: (test (NOTE) code = 79432) INTERPRETATION: (test NILM/NO EPITH. code = 11391) ABNORMALITY;SEE BELOW OTHER COMMENTS: (test (NOTE) code = 8081) CHICKEN CLEANER: (test LIGIA Haile (ASCP) code = 8101) LOCATION: (test code = (NOTE) 67292) CPT: (test code = 8140) (NOTE) PAP TEST, THINPREP, [id number] 00:00:00 Test Item Value Reference Range Interpretation Comments SOURCE: (test code = Cervical/Endocervical 8001) SLIDES: (test code = 1 8011) LMP: (test code = 8021) SEE NOTE SPECIMEN ADEQUACY: (test (NOTE) code = 43711) INTERPRETATION: (test NILM/NO EPITH. code = 50485) ABNORMALITY;SEE BELOW OTHER COMMENTS: (test (NOTE) code = 8081) CHICKEN CLEANER: (test LIGIA Haile (ASCP) code = 8101) LOCATION: (test code = (NOTE) 92712) CPT: (test code = 8140) (NOTE) HPV HIGH RISK WITH GENOTYPE, [id number] 00:00:00 Test Item Value Reference Range Interpretation Comments HPV HIGH RISK INTERP (test code = NEGATIVE 40928) HPV 16 (test code = 27359) NEGATIVE HPV 18 (test code = 60921) NEGATIVE HPV, HR, OTHER GENOTYPES (test code NEGATIVE = 72287) HPV HIGH RISK WITH GENOTYPE, [id number] 00:00:00 Test Item Value Reference Range Interpretation Comments HPV HIGH RISK INTERP (test code = NEGATIVE 81500) HPV 16 (test code = 72867) NEGATIVE HPV 18 (test code = 38711) NEGATIVE HPV, HR, OTHER GENOTYPES (test code NEGATIVE = 19337) PAP TEST, THINPREP, [id number] 00:00:00 Test Item Value Reference Range Interpretation Comments SOURCE: (test code = Cervical/Endocervical 8001) SLIDES: (test code = 1 8011) LMP: (test code = 8021) SEE NOTE SPECIMEN ADEQUACY: (test (NOTE) code = 69179) INTERPRETATION: (test NILM/NO EPITH. code = 98927) ABNORMALITY;SEE BELOW OTHER COMMENTS: (test (NOTE) code = 8081) CHICKEN CLEANER: (test LIGIA Haile (ASCP) code = 8101) LOCATION: (test code = (NOTE) 71218) CPT: (test code = 8140) (NOTE) PAP TEST, THINPREP, [id number] 00:00:00 Test Item Value Reference Range Interpretation Comments SOURCE: (test code = Cervical/Endocervical 8001) SLIDES: (test code = 1 8011) LMP: (test code = 8021) SEE NOTE SPECIMEN ADEQUACY: (test (NOTE) code = 71159) INTERPRETATION: (test NILM/NO EPITH. code = 25784) ABNORMALITY;SEE BELOW OTHER COMMENTS: (test (NOTE) code = 8081) CHICKEN CLEANER: (test LIGIA Haile (ASCP) code = 8101) LOCATION: (test code = (NOTE) 79892) CPT: (test code = 8140) (NOTE) HPV HIGH RISK WITH GENOTYPE, [id number] 00:00:00 Test Item Value Reference Range Interpretation Comments HPV HIGH RISK INTERP (test code = NEGATIVE 89756) HPV 16 (test code = 41834) NEGATIVE HPV 18 (test code = 15301) NEGATIVE HPV, HR, OTHER GENOTYPES (test code NEGATIVE = 82856) HPV HIGH RISK WITH GENOTYPE, [id number] 00:00:00 Test Item Value Reference Range Interpretation Comments HPV HIGH RISK INTERP (test code = NEGATIVE 85813) HPV 16 (test code = 55031) NEGATIVE HPV 18 (test code = 63163) NEGATIVE HPV, HR, OTHER GENOTYPES (test code NEGATIVE = 29101) PAP TEST, THINPREP, [id number] 00:00:00 Test Item Value Reference Range Interpretation Comments SOURCE: (test code = Cervical/Endocervical 8001) SLIDES: (test code = 1 8011) LMP: (test code = 8021) SEE NOTE SPECIMEN ADEQUACY: (test (NOTE) code = 37059) INTERPRETATION: (test NILM/NO EPITH. code = 07906) ABNORMALITY;SEE BELOW OTHER COMMENTS: (test (NOTE) code = 8081) CHICKEN CLEANER: (test LIGIA Haile (ASCP) code = 8101) LOCATION: (test code = (NOTE) 69304) CPT: (test code = 8140) (NOTE) PAP TEST, THINPREP, [id number] 00:00:00 Test Item Value Reference Range Interpretation Comments SOURCE: (test code = Cervical/Endocervical 8001) SLIDES: (test code = 1 8011) LMP: (test code = 8021) SEE NOTE SPECIMEN ADEQUACY: (test (NOTE) code = 18939) INTERPRETATION: (test NILM/NO EPITH. code = 46291) ABNORMALITY;SEE BELOW OTHER COMMENTS: (test (NOTE) code = 8081) CHICKEN CLEANER: (test LIGIA Haile (ASCP) code = 8101) LOCATION: (test code = (NOTE) 50142) CPT: (test code = 8140) (NOTE) HPV HIGH RISK WITH GENOTYPE, [id number] 00:00:00 Test Item Value Reference Range Interpretation Comments HPV HIGH RISK INTERP (test code = NEGATIVE 35392) HPV 16 (test code = 70350) NEGATIVE HPV 18 (test code = 96408) NEGATIVE HPV, HR, OTHER GENOTYPES (test code NEGATIVE = 92186) HPV HIGH RISK WITH GENOTYPE, [id number] 00:00:00 Test Item Value Reference Range Interpretation Comments HPV HIGH RISK INTERP (test code = NEGATIVE 26847) HPV 16 (test code = 62588) NEGATIVE HPV 18 (test code = 87177) NEGATIVE HPV, HR, OTHER GENOTYPES (test code NEGATIVE = 19543) PAP TEST, THINPREP, [id number] 00:00:00 Test Item Value Reference Range Interpretation Comments SOURCE: (test code = Cervical/Endocervical 8001) SLIDES: (test code = 1 8011) LMP: (test code = 8021) SEE NOTE SPECIMEN ADEQUACY: (test (NOTE) code = 68689) INTERPRETATION: (test NILM/NO EPITH. code = 60386) ABNORMALITY;SEE BELOW OTHER COMMENTS: (test (NOTE) code = 8081) CHICKEN CLEANER: (test Yoselinrolly Enrique CT (ASCP) code = 8101) LOCATION: (test code = (NOTE) 71635) CPT: (test code = 8140) (NOTE) PAP TEST, THINPREP, [id number] 00:00:00 Test Item Value Reference Range Interpretation Comments SOURCE: (test code = Cervical/Endocervical 8001) SLIDES: (test code = 1 8011) LMP: (test code = 8021) SEE NOTE SPECIMEN ADEQUACY: (test (NOTE) code = 30044) INTERPRETATION: (test NILM/NO EPITH. code = 38510) ABNORMALITY;SEE BELOW OTHER COMMENTS: (test (NOTE) code = 8081) CHICKEN CLEANER: (test Yoselin Enrique CT (ASCP) code = 8101) LOCATION: (test code = (NOTE) 71912) CPT: (test code = 8140) (NOTE) HPV HIGH RISK WITH GENOTYPE, [id number] 00:00:00 Test Item Value Reference Range Interpretation Comments HPV HIGH RISK INTERP (test code = NEGATIVE 78996) HPV 16 (test code = 09112) NEGATIVE HPV 18 (test code = 90344) NEGATIVE HPV, HR, OTHER GENOTYPES (test code NEGATIVE = 19271) HPV HIGH RISK WITH GENOTYPE, [id number] 00:00:00 Test Item Value Reference Range Interpretation Comments HPV HIGH RISK INTERP (test code = NEGATIVE 15667) HPV 16 (test code = 32018) NEGATIVE HPV 18 (test code = 36718) NEGATIVE HPV, HR, OTHER GENOTYPES (test code NEGATIVE = 74836) PAP TEST, THINPREP, [id number] 00:00:00 Test Item Value Reference Range Interpretation Comments SOURCE: (test code = Cervical/Endocervical 8001) SLIDES: (test code = 1 8011) LMP: (test code = 8021) SEE NOTE SPECIMEN ADEQUACY: (test (NOTE) code = 80134) INTERPRETATION: (test NILM/NO EPITH. code = 19426) ABNORMALITY;SEE BELOW OTHER COMMENTS: (test (NOTE) code = 8081) CHICKEN CLEANER: (test LIGIA Haile (ASCP) code = 8101) LOCATION: (test code = (NOTE) 11650) CPT: (test code = 8140) (NOTE) PAP TEST, THINPREP, [id number] 00:00:00 Test Item Value Reference Range Interpretation Comments SOURCE: (test code = Cervical/Endocervical 8001) SLIDES: (test code = 1 8011) LMP: (test code = 8021) SEE NOTE SPECIMEN ADEQUACY: (test (NOTE) code = 42712) INTERPRETATION: (test NILM/NO EPITH. code = 05153) ABNORMALITY;SEE BELOW OTHER COMMENTS: (test (NOTE) code = 8081) CHICKEN CLEANER: (test Yoselin Enrique CT (ASCP) code = 8101) LOCATION: (test code = (NOTE) 42772) CPT: (test code = 8140) (NOTE) HPV HIGH RISK WITH GENOTYPE, [id number] 00:00:00 Test Item Value Reference Range Interpretation Comments HPV HIGH RISK INTERP (test code = NEGATIVE 92416) HPV 16 (test code = 25234) NEGATIVE HPV 18 (test code = 06944) NEGATIVE HPV, HR, OTHER GENOTYPES (test code NEGATIVE = 69234) HPV HIGH RISK WITH GENOTYPE, [id number] 00:00:00 Test Item Value Reference Range Interpretation Comments HPV HIGH RISK INTERP (test code = NEGATIVE 96016) HPV 16 (test code = 48043) NEGATIVE HPV 18 (test code = 41610) NEGATIVE HPV, HR, OTHER GENOTYPES (test code NEGATIVE = 10429) PAP TEST, THINPREP, [id number] 00:00:00 Test Item Value Reference Range Interpretation Comments SOURCE: (test code = Cervical/Endocervical 8001) SLIDES: (test code = 1 8011) LMP: (test code = 8021) SEE NOTE SPECIMEN ADEQUACY: (test (NOTE) code = 42822) INTERPRETATION: (test NILM/NO EPITH. code = 55105) ABNORMALITY;SEE BELOW OTHER COMMENTS: (test (NOTE) code = 8081) CHICKEN CLEANER: (test Yoselinrolly Enrique CT (ASCP) code = 8101) LOCATION: (test code = (NOTE) 82951) CPT: (test code = 8140) (NOTE) PAP TEST, THINPREP, [id number] 00:00:00 Test Item Value Reference Range Interpretation Comments SOURCE: (test code = Cervical/Endocervical 8001) SLIDES: (test code = 1 8011) LMP: (test code = 8021) SEE NOTE SPECIMEN ADEQUACY: (test (NOTE) code = 19343) INTERPRETATION: (test NILM/NO EPITH. code = 28745) ABNORMALITY;SEE BELOW OTHER COMMENTS: (test (NOTE) code = 8081) CHICKEN CLEANER: (test Yoselinrolly Enrique CT (ASCP) code = 8101) LOCATION: (test code = (NOTE) 58692) CPT: (test code = 8140) (NOTE) HPV HIGH RISK WITH GENOTYPE, [id number] 00:00:00 Test Item Value Reference Range Interpretation Comments HPV HIGH RISK INTERP (test code = NEGATIVE 96922) HPV 16 (test code = 10483) NEGATIVE HPV 18 (test code = 01217) NEGATIVE HPV, HR, OTHER GENOTYPES (test code NEGATIVE = 44792) HPV HIGH RISK WITH GENOTYPE, [id number] 00:00:00 Test Item Value Reference Range Interpretation Comments HPV HIGH RISK INTERP (test code = NEGATIVE 07124) HPV 16 (test code = 71560) NEGATIVE HPV 18 (test code = 91197) NEGATIVE HPV, HR, OTHER GENOTYPES (test code NEGATIVE = 06705) PAP TEST, THINPREP, [id number] 00:00:00 Test Item Value Reference Range Interpretation Comments SOURCE: (test code = Cervical/Endocervical 8001) SLIDES: (test code = 1 8011) LMP: (test code = 8021) SEE NOTE SPECIMEN ADEQUACY: (test (NOTE) code = 41195) INTERPRETATION: (test NILM/NO EPITH. code = 97590) ABNORMALITY;SEE BELOW OTHER COMMENTS: (test (NOTE) code = 8081) CHICKEN CLEANER: (test YoselinLIGIA Gan (ASCP) code = 8101) LOCATION: (test code = (NOTE) 05984) CPT: (test code = 8140) (NOTE) PAP TEST, THINPREP, [id number] 00:00:00 Test Item Value Reference Range Interpretation Comments SOURCE: (test code = Cervical/Endocervical 8001) SLIDES: (test code = 1 8011) LMP: (test code = 8021) SEE NOTE SPECIMEN ADEQUACY: (test (NOTE) code = 62761) INTERPRETATION: (test NILM/NO EPITH. code = 34855) ABNORMALITY;SEE BELOW OTHER COMMENTS: (test (NOTE) code = 8081) CHICKEN CLEANER: (test LIGIA Haile (ASCP) code = 8101) LOCATION: (test code = (NOTE) 86436) CPT: (test code = 8140) (NOTE) HPV HIGH RISK WITH GENOTYPE, [id number] 00:00:00 Test Item Value Reference Range Interpretation Comments HPV HIGH RISK INTERP (test code = NEGATIVE 22719) HPV 16 (test code = 95557) NEGATIVE HPV 18 (test code = 23195) NEGATIVE HPV, HR, OTHER GENOTYPES (test code NEGATIVE = 23687) HPV HIGH RISK WITH GENOTYPE, [id number] 00:00:00 Test Item Value Reference Range Interpretation Comments HPV HIGH RISK INTERP (test code = NEGATIVE 09396) HPV 16 (test code = 90569) NEGATIVE HPV 18 (test code = 59849) NEGATIVE HPV, HR, OTHER GENOTYPES (test code NEGATIVE = 64957) PAP TEST, THINPREP, [id number] 00:00:00 Test Item Value Reference Range Interpretation Comments SOURCE: (test code = Cervical/Endocervical 8001) SLIDES: (test code = 1 8011) LMP: (test code = 8021) SEE NOTE SPECIMEN ADEQUACY: (test (NOTE) code = 96308) INTERPRETATION: (test NILM/NO EPITH. code = 51720) ABNORMALITY;SEE BELOW OTHER COMMENTS: (test (NOTE) code = 8081) CHICKEN CLEANER: (test LIGIA Haile (ASCP) code = 8101) LOCATION: (test code = (NOTE) 54083) CPT: (test code = 8140) (NOTE) PAP TEST, THINPREP, [id number] 00:00:00 Test Item Value Reference Range Interpretation Comments SOURCE: (test code = Cervical/Endocervical 8001) SLIDES: (test code = 1 8011) LMP: (test code = 8021) SEE NOTE SPECIMEN ADEQUACY: (test (NOTE) code = 95174) INTERPRETATION: (test NILM/NO EPITH. code = 71574) ABNORMALITY;SEE BELOW OTHER COMMENTS: (test (NOTE) code = 8081) CHICKEN CLEANER: (test Yoselin Enrique CT (ASCP) code = 8101) LOCATION: (test code = (NOTE) 08650) CPT: (test code = 8140) (NOTE) HPV HIGH RISK WITH GENOTYPE, [id number] 00:00:00 Test Item Value Reference Range Interpretation Comments HPV HIGH RISK INTERP (test code = NEGATIVE 81221) HPV 16 (test code = 16519) NEGATIVE HPV 18 (test code = 37943) NEGATIVE HPV, HR, OTHER GENOTYPES (test code NEGATIVE = 51391) HPV HIGH RISK WITH GENOTYPE, [id number] 00:00:00 Test Item Value Reference Range Interpretation Comments HPV HIGH RISK INTERP (test code = NEGATIVE 92864) HPV 16 (test code = 79764) NEGATIVE HPV 18 (test code = 77357) NEGATIVE HPV, HR, OTHER GENOTYPES (test code NEGATIVE = 86027) PAP TEST, THINPREP, [id number] 00:00:00 Test Item Value Reference Range Interpretation Comments SOURCE: (test code = Cervical/Endocervical 8001) SLIDES: (test code = 1 8011) LMP: (test code = 8021) SEE NOTE SPECIMEN ADEQUACY: (test (NOTE) code = 39508) INTERPRETATION: (test NILM/NO EPITH. code = 57291) ABNORMALITY;SEE BELOW OTHER COMMENTS: (test (NOTE) code = 8081) CHICKEN CLEANER: (test Yoselin Enrique CT (ASCP) code = 8101) LOCATION: (test code = (NOTE) 22746) CPT: (test code = 8140) (NOTE) SARS-CoV-2 (COVID-19) by RT-PCR (HIGH RISK)2019-09-12 00:00:00 Test Item Value Reference Range Interpretation Comments SARS-CoV-2 INTERPRETATION (test NEGATIVE code = 80401) SOURCE (test code = 93893) NOT SPECIFIED SARS-CoV-2 (COVID-19) by RT-PCR (HIGH RISK)2019-09-12 00:00:00 Test Item Value Reference Range Interpretation Comments SARS-CoV-2 INTERPRETATION (test NEGATIVE code = 02255) SOURCE (test code = 96498) NOT SPECIFIED SARS-CoV-2 (COVID-19) by RT-PCR (HIGH RISK)2019-09-12 00:00:00 Test Item Value Reference Range Interpretation Comments SARS-CoV-2 INTERPRETATION (test NEGATIVE code = 65626) SOURCE (test code = 13397) NOT SPECIFIED SARS-CoV-2 (COVID-19) by RT-PCR (HIGH RISK)2019-09-12 00:00:00 Test Item Value Reference Range Interpretation Comments SARS-CoV-2 INTERPRETATION (test NEGATIVE code = 00297) SOURCE (test code = 07781) NOT SPECIFIED SARS-CoV-2 (COVID-19) by RT-PCR (HIGH RISK)2019-09-12 00:00:00 Test Item Value Reference Range Interpretation Comments SARS-CoV-2 INTERPRETATION (test NEGATIVE code = 55942) SOURCE (test code = 66224) NOT SPECIFIED SARS-CoV-2 (COVID-19) by RT-PCR (HIGH RISK)2019-09-12 00:00:00 Test Item Value Reference Range Interpretation Comments SARS-CoV-2 INTERPRETATION (test NEGATIVE code = 67175) SOURCE (test code = 61082) NOT SPECIFIED SARS-CoV-2 (COVID-19) by RT-PCR (HIGH RISK)2019-09-12 00:00:00 Test Item Value Reference Range Interpretation Comments SARS-CoV-2 INTERPRETATION (test NEGATIVE code = 08473) SOURCE (test code = 21818) NOT SPECIFIED SARS-CoV-2 (COVID-19) by RT-PCR (HIGH RISK)2019-09-12 00:00:00 Test Item Value Reference Range Interpretation Comments SARS-CoV-2 INTERPRETATION (test NEGATIVE code = 85409) SOURCE (test code = 41479) NOT SPECIFIED SARS-CoV-2 (COVID-19) by RT-PCR (HIGH RISK)2019-09-12 00:00:00 Test Item Value Reference Range Interpretation Comments SARS-CoV-2 INTERPRETATION (test NEGATIVE code = 72687) SOURCE (test code = 54365) NOT SPECIFIED SARS-CoV-2 (COVID-19) by RT-PCR (HIGH RISK)2019-09-12 00:00:00 Test Item Value Reference Range Interpretation Comments SARS-CoV-2 INTERPRETATION (test NEGATIVE code = 75516) SOURCE (test code = 86542) NOT SPECIFIED SARS-CoV-2 (COVID-19) by RT-PCR (HIGH RISK)2019-09-12 00:00:00 Test Item Value Reference Range Interpretation Comments SARS-CoV-2 INTERPRETATION (test NEGATIVE code = 57791) SOURCE (test code = 16510) NOT SPECIFIED SARS-CoV-2 (COVID-19) by RT-PCR (HIGH RISK)2019-09-12 00:00:00 Test Item Value Reference Range Interpretation Comments SARS-CoV-2 INTERPRETATION (test NEGATIVE code = 51562) SOURCE (test code = 48124) NOT SPECIFIED SARS-CoV-2 (COVID-19) by RT-PCR (HIGH RISK)2019-09-12 00:00:00 Test Item Value Reference Range Interpretation Comments SARS-CoV-2 INTERPRETATION (test NEGATIVE code = 39960) SOURCE (test code = 65921) NOT SPECIFIED SARS-CoV-2 (COVID-19) by RT-PCR (HIGH RISK)2019-09-12 00:00:00 Test Item Value Reference Range Interpretation Comments SARS-CoV-2 INTERPRETATION (test NEGATIVE code = 22681) SOURCE (test code = 55921) NOT SPECIFIED SARS-CoV-2 (COVID-19) by RT-PCR (HIGH RISK)2019-09-12 00:00:00 Test Item Value Reference Range Interpretation Comments SARS-CoV-2 INTERPRETATION (test NEGATIVE code = 42336) SOURCE (test code = 71953) NOT SPECIFIED SARS-CoV-2 (COVID-19) by RT-PCR (HIGH RISK)2019-09-12 00:00:00 Test Item Value Reference Range Interpretation Comments SARS-CoV-2 INTERPRETATION (test NEGATIVE code = 14440) SOURCE (test code = 44191) NOT SPECIFIED SARS-CoV-2 (COVID-19) by RT-PCR (HIGH RISK)2019-09-12 00:00:00 Test Item Value Reference Range Interpretation Comments SARS-CoV-2 INTERPRETATION (test NEGATIVE code = 79589) SOURCE (test code = 32628) NOT SPECIFIED SARS-CoV-2 (COVID-19) by RT-PCR (HIGH RISK)2019-09-12 00:00:00 Test Item Value Reference Range Interpretation Comments SARS-CoV-2 INTERPRETATION (test NEGATIVE code = 28441) SOURCE (test code = 98169) NOT SPECIFIED SARS-CoV-2 (COVID-19) by RT-PCR (HIGH RISK)2019-09-12 00:00:00 Test Item Value Reference Range Interpretation Comments SARS-CoV-2 INTERPRETATION (test NEGATIVE code = 92312) SOURCE (test code = 44316) NOT SPECIFIED SARS-CoV-2 (COVID-19) by RT-PCR (HIGH RISK)2019-09-12 00:00:00 Test Item Value Reference Range Interpretation Comments SARS-CoV-2 INTERPRETATION (test NEGATIVE code = 17867) SOURCE (test code = 33907) NOT SPECIFIED SARS-CoV-2 (COVID-19) by RT-PCR (HIGH RISK)2019-09-12 00:00:00 Test Item Value Reference Range Interpretation Comments SARS-CoV-2 INTERPRETATION (test NEGATIVE code = 37531) SOURCE (test code = 65740) NOT SPECIFIED SARS-CoV-2 (COVID-19) by RT-PCR (HIGH RISK)2019-09-12 00:00:00 Test Item Value Reference Range Interpretation Comments SARS-CoV-2 INTERPRETATION (test NEGATIVE code = 27148) SOURCE (test code = 42894) NOT SPECIFIED SARS-CoV-2 (COVID-19) by RT-PCR (HIGH RISK)2019-09-12 00:00:00 Test Item Value Reference Range Interpretation Comments SARS-CoV-2 INTERPRETATION (test NEGATIVE code = 19160) SOURCE (test code = 47727) NOT SPECIFIED"
--- NOTE | 2022-04-03 08:00 | RAD REPORT ---
EXAM DESCRIPTION: Gwen Single View04/03/2022 6:58 am CLINICAL HISTORY: Chest pain COMPARISON: March 26, 2022 FINDINGS: Mild bilateral pulmonary opacities. Heart is mildly to moderately enlarged IMPRESSION: These findings probably indicate mild CHF
[2022-04-03] MEDS ORDERED: ASPIRIN EC 81 MG TAB PO ONE (09:33)
[2022-04-03 09:38] LABS: Absolute Lymphocytes (CBC) 1.4 K/uL (0.7-4.9); Hematocrit 40.8 % (36.0-45.0); Lymphocytes % 18.4 % (15.3-44.8); MCV 91.3 fL (80-100); MPV 7.7 fL (7.6-11.3); RBC Red Blood Cell Count 4.46 M/uL (3.86-4.86)
[2022-04-03 09:41] LABS: Protime INR 0.99
[2022-04-03 09:49] LABS: SARS-CoV-2 Antigen Rapid Res Negative (Negative)
[2022-04-03 10:06] LABS: Albumin 3.5 g/dL (3.4-5.0); Bilirubin Direct 0.1 mg/dL (0-0.2); Bilirubin Total 0.4 mg/dL (0.2-1.0); Magnesium 2.3 mg/dL (1.6-2.4); Potassium 4.4 mmol/L (3.5-5.1); Protein, Total 6.9 g/dL (6.4-8.2)
[2022-04-03 10:10] LABS: Troponin High Sensitivity 689.8 pg/mL (<58.9)
--- NOTE | 2022-04-03 10:52 | ER ---
Nurse's Notes [facility] Name: Jessica Wong Age: 56 yrs Sex: Female : 1965 Arrival Date: 04/03/2022 Time: 05:25 Bed 16 Private MD: Diagnosis: NSTEMI;Elevated Troponin Presentation: 04/03 06:18 Chief complaint: Patient states: "I have pain in my right shoulder and in my neck and jl7 it goes down to my leg, I think I did something to my stent. I have to heart stents they just put in on Saturday." Typed by vc1, deleted by mistake. 06:19 Coronavirus screen: Vaccine status: Patient reports being unvaccinated. At this time, vc1 the client does not indicate any symptoms associated with coronavirus-19. Ebola Screen: No symptoms or risks identified at this time. Risk Assessment: Do you want to hurt yourself or someone else? Patient reports no desire to harm self or others. Onset of symptoms was April 02, 2022. 06:19 Method Of Arrival: Ambulatory vc1 06:19 Acuity: GUADALUPE 4 vc1 06:21 Care prior to arrival: Medication(s) given: Took a nitro it did not help, took a vc1 lorazepam it did not help. 07:30 Acuity: GUADALUPE 3 jl7 10:48 Acuity: GUADALUPE 2 jl7 11:09 Initial Sepsis Screen: Does the patient meet any 2 criteria? No. Patient's initial kc6 sepsis screen is negative. Does the patient have a suspected source of infection? No. Patient's initial sepsis screen is negative. Triage Assessment: 06:24 General: Appears in no apparent distress. uncomfortable, Behavior is calm, cooperative, vc1 appropriate for age. Pain: Complains of pain in left sternocleidomastoid Pain radiates to anterior aspect of right shoulder and posterior aspect of right shoulder Pain currently is 6 out of 10 on a pain scale. Quality of pain is described as dull. EENT: No deficits noted. Neuro: Level of Consciousness is awake, alert, obeys commands, Oriented to person, place, time, situation, Appropriate for age. Cardiovascular: No deficits noted. Respiratory: Airway is patent Respiratory effort is even, unlabored, Respiratory pattern is regular, symmetrical. GI: No deficits noted. No signs and/or symptoms were reported involving the gastrointestinal system. : No deficits noted. No signs and/or symptoms were reported regarding the genitourinary system. Derm: No deficits noted. No signs and/or symptoms reported regarding the dermatologic system. Musculoskeletal: No deficits noted. No signs and/or symptoms reported regarding the musculoskeletal system. 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 N/A - Post-menopause vc1 Historical: - Allergies: 06:22 Oxycodone HCl; vc1 06:22 PENICILLINS; vc1 - Home Meds: 06:22 aspirin 81 mg Oral chew 1 tab once daily [Active]; clopidogrel 75 mg Oral tab 1 tab vc1 once daily [Active]; levothyroxine 75 mcg tab 1 tab once daily [Active]; lorazepam 0.5 mg Oral tab 1 tab as needed [Active]; metoprolol tartrate 100 mg oral tab 1 tab once daily [Active]; lithium carbonate 450 mg Oral TbER [Active]; - PMHx: 06:29 Bipolar disorder; Cancer; Hodgkin's; CHF; Heart Murmur; vc1 - PSHx: 06:22 cardiac stents; vc1 - Immunization history:: Client reports having NOT received the Covid vaccine. - Social history:: Smoking status: Patient reports the use of cigarette tobacco products, smokes one pack cigarettes per day. Screenin:25 Abuse screen: Denies threats or abuse. Nutritional screening: No deficits noted. vc1 Tuberculosis screening: No symptoms or risk factors identified. 11:09 [facility] ED Fall Risk Assessment (Adult) History of falling in the last 3 months, kc6 including since admission No falls in past 3 months (0 pts) Confusion or Disorientation No (0 pts) Intoxicated or Sedated No (0 pts) Impaired Gait No (0 pts) Mobility Assist Device Used No (0 pt) Altered Elimination No (0 pt) Score/Fall Risk Level 0 - 2 = Low Risk Oriented to surroundings, Maintained a safe environment, Educated pt \\T\\ family on fall prevention, incl call for assistance when getting out of bed, Assessed \\T\\ reinforced patient's understanding of fall precautions, Hourly rounding (assess needs \\T\\ fall precautionary measures) done. Assessment: 11:05 General: Appears in no apparent distress. comfortable, Behavior is calm, cooperative, kc6 appropriate for age. Pain: Complains of pain in posterior aspect of right shoulder and anterior aspect of right shoulder Pain does not radiate. Pain currently is 5 out of 10 on a pain scale. Quality of pain is described as aching, dull, pressure, Pain began gradually, Is continuous, Alleviated by nothing. Also complains of no other associated symptoms. Neuro: Costello Agitation-Sedation Scale (RASS): 0 - Alert and Calm Level of Consciousness is awake, alert, obeys commands, Oriented to person, place, time, situation, Appropriate for age. Cardiovascular: Denies chest pain, nausea, shortness of breath, Heart tones S1 S2 present Capillary refill < 3 seconds Rhythm is sinus rhythm. Respiratory: Airway is patent Trachea midline Respiratory effort is even, unlabored, Respiratory pattern is regular, symmetrical, Breath sounds are clear bilaterally. GI: No signs and/or symptoms were reported involving the gastrointestinal system. : No signs and/or symptoms were reported regarding the genitourinary system. EENT: No signs and/or symptoms were reported regarding the EENT system. Derm: No signs and/or symptoms reported regarding the dermatologic system. Skin is intact, Skin is pink, warm \\T\\ dry. Musculoskeletal: No signs and/or symptoms reported regarding the musculoskeletal system. Circulation, motion, and sensation intact. Capillary refill < 3 seconds, Range of motion: intact in all extremities. 11:56 Reassessment: Patient appears in no apparent distress at this time. No changes from [facility] previously documented assessment. Patient and/or family updated on plan of care and expected duration. Pain level reassessed. Patient is alert, oriented x 3, equal unlabored respirations, skin warm/dry/pink. client ambulated to bathroom. 12:56 Reassessment: Patient appears in no apparent distress at this time. No changes from [facility] previously documented assessment. Patient and/or family updated on plan of care and expected duration. Pain level reassessed. Patient is alert, oriented x 3, equal unlabored respirations, skin warm/dry/pink. client resting at this time. 13:12 Reassessment: please see [facility] for further charting. [facility] Vital Signs: 06:19 Weight 99.79 kg; Height 5 ft. 2 in. (157.48 cm); Pain 6/10; vc1 06:26 BP 109 / 87; Pulse 67; Resp 18; Temp 97.7; Pulse Ox 98% ; vc1 11:08 BP 118 / 60; Pulse 71; Resp 21 S; Pulse Ox 99% on R/A; Pain 5/10; kc6 11:40 BP 127 / 63; Pulse 78; Resp 23 S; Pulse Ox 98% on R/A; Pain 5/10; kc6 12:40 BP 104 / 45; Pulse 80; Resp 18 S; Pulse Ox 99% on R/A; kc6 06:19 Body Mass Index 40.24 (99.79 kg, 157.48 cm) vc1 Vitals: 11:08 Cardiac Rhythm Assessment Sinus rhythm. 6 ED Course: 05:25 Patient arrived in ED. jj6 06:21 Triage completed. vc1 06:25 Arm band placed on left wrist. vc1 07:00 [facility] Par[facility] F[facility] jh7 07:00 Jose Alvarez MD is Attending Physician. jh7 07:00 XRAY Chest (1 view) In Process Unspecified. EDMS 09:30 Troponin HS Sent. ap3 09:30 PT-INR Sent. ap3 09:30 NT PRO-BNP Sent. ap3 09:30 Magnesium Sent. ap3 09:30 LFT's Sent. ap3 09:30 CBC with Diff Sent. ap3 09:30 Basic Metabolic Panel Sent. ap3 09:30 SARS RAPID Sent. ap3 10:49 Niesha Araiza, CALI is Primary Nurse. kc6 10:50 Luis Miguel Mendoza MD is Hospitalizing Provider. 7 11:08 Patient has correct armband on for positive identification. Bed in low position. Call [facility] light in reach. Side rails up X2. 11:08 No provider procedures requiring assistance completed. Patient admitted, IV remains in kc6 place. Administered Medications: 09:33 Not Given (Patient Refused): Aspirin 81 mg PO once ap3 10:58 Drug: NS 0.9% 1000 ml Route: IV; Rate: 125 ml/hr; Site: left hand; [facility] Medication: 06:26 VIS not applicable for this client. vc1 Outcome: 10:51 Decision to Hospitalize by Provider. jh7 11:09 Condition: stable kc6 15:56 Admitted to Med/surg kc6 15:56 Discharge instructions given to patient, Instructed on the need for admit, Demonstrated understanding of instructions. 15:56 Patient left the ED. [facility] Signatures: Dispatcher [employer] EDMS Lizy Dolan RN RN jl7 Gianna Tang RN RN ap3 Beatriz Negrete jj6 Evelina Reaves RN RN vc1 Beatriz Parry, STARCH COOKER STARCH COOKER jh7 Niesha Araiza RN RN kc6 Corrections: (The following items were deleted from the chart) 09:33 09:31 Aspirin 81 mg PO ap3 ap3 13:46 06:19 Chief complaint: Patient states: "I have pain in my right shoulder and in my neck ll4 and it goes down to my leg, I think I did something to my stent. I have to heart stents they just put in on Saturday." vc1
--- NOTE | 2022-04-03 10:52 | EDPHYS ---
Physician Documentation [facility] Name: Jessica Wong Age: 56 yrs Sex: Female : 1965 Arrival Date: 04/03/2022 Time: 05:25 Bed 16 Private MD: ED Physician Jose Alvarez HPI: 04/03 07:05 This 56 yrs old Female presents to ER via Ambulatory with complaints of Pt concerned jh7 about stint placement. States she strained a little too hard and is now having pain radiating down the right arm and leg.. 07:05 Onset: The symptoms/episode began/occurred 4 day(s) ago. Associated signs and 7 symptoms:. 56-year-old female complains of right chest, right neck, and right shoulder pain shooting down her right leg. The patient states that she had a stent placed on Saturday and by Dr. Woodard. She reports that she has been smoking since the stent placement. Also reports that she believes she strained too hard during her first bowel movement after the stent on Saturday. Also reports a history of bipolar.. 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 - Post-menopause vc1 Historical: - Allergies: 06:22 Oxycodone HCl; vc1 06:22 PENICILLINS; vc1 - Home Meds: 06:22 aspirin 81 mg Oral chew 1 tab once daily [Active]; clopidogrel 75 mg Oral tab 1 tab vc1 once daily [Active]; levothyroxine 75 mcg tab 1 tab once daily [Active]; lorazepam 0.5 mg Oral tab 1 tab as needed [Active]; metoprolol tartrate 100 mg oral tab 1 tab once daily [Active]; lithium carbonate 450 mg Oral TbER [Active]; - PMHx: 06:29 Bipolar disorder; Cancer; Hodgkin's; CHF; Heart Murmur; vc1 - PSHx: 06:22 cardiac stents; vc1 - Immunization history:: Client reports having NOT received the Covid vaccine. - Social history:: Smoking status: Patient reports the use of cigarette tobacco products, smokes one pack cigarettes per day. ROS: 07:05 Constitutional: Negative for fever, chills, and weight loss, Eyes: Negative for injury, jh7 pain, redness, and discharge, Neck: Negative for injury, pain, and swelling, Respiratory: Negative for shortness of breath, cough, wheezing, and pleuritic chest pain, Abdomen/GI: Negative for abdominal pain, nausea, vomiting, diarrhea, and constipation, Back: Negative for injury and pain, MS/Extremity: Negative for injury and deformity, Skin: Negative for injury, rash, and discoloration, Neuro: Negative for headache, weakness, numbness, tingling, and seizure. 07:05 Cardiovascular: Positive for chest pain, Right neck and shoulder pain shooting down leg, Negative for palpitations. 07:05 All other systems are negative. Exam: 07:05 Constitutional: This is a well developed, well nourished patient who is awake, alert, jh7 and in no acute distress. Head/Face: Normocephalic, atraumatic. Neck: Trachea midline, no thyromegaly or masses palpated, and no cervical lymphadenopathy. Supple, full range of motion without nuchal rigidity, or vertebral point tenderness. No Meningismus. Cardiovascular: Regular rate and rhythm with a normal S1 and S2. No gallops, murmurs, or rubs. Normal PMI, no JVD. No pulse deficits. Respiratory: Lungs have equal breath sounds bilaterally, clear to auscultation and percussion. No rales, rhonchi or wheezes noted. No increased work of breathing, no retractions or nasal flaring. Abdomen/GI: Soft, non-tender, with normal bowel sounds. No distension or tympany. No guarding or rebound. No evidence of tenderness throughout. Back: No spinal tenderness. No costovertebral tenderness. Full range of motion. Skin: Warm, dry with normal turgor. Normal color with no rashes, no lesions, and no evidence of cellulitis. MS/ Extremity: Pulses equal, no cyanosis. Neurovascular intact. Full, normal range of motion. Neuro: Awake and alert, GCS 15, oriented to person, place, time, and situation. Motor strength 5/5 in all extremities. Sensory grossly intact. Normal gait. 09:38 ECG was reviewed by the Attending Physician. [facility] Vital Signs: 06:19 Weight 99.79 kg; Height 5 ft. 2 in. (157.48 cm); Pain 6/10; vc1 06:26 BP 109 / 87; Pulse 67; Resp 18; Temp 97.7; Pulse Ox 98% ; vc1 11:08 BP 118 / 60; Pulse 71; Resp 21 S; Pulse Ox 99% on R/A; Pain 5/10; kc6 11:40 BP 127 / 63; Pulse 78; Resp 23 S; Pulse Ox 98% on R/A; Pain 5/10; kc6 12:40 BP 104 / 45; Pulse 80; Resp 18 S; Pulse Ox 99% on R/A; kc6 06:19 Body Mass Index 40.24 (99.79 kg, 157.48 cm) vc1 MDM: 06:28 Patient medically screened. [facility] 10:42 Physician consultation: Sedrick Palubmo MD was called at 10:11, was contacted at 10:42, [facility] regarding admission, to the telemetry unit. consult, patient's condition, and will see patient in inpatient room, would like admission per Dr. Luis Miguel Mendoza MD would like further tests performed, Serial troponins, Spoke to Dr. Palumbo regarding patient condition. Informed him that the EKG showed left bundle branch block which is consistent with the previous EKG done on 03/28. Also informed him that the patient's troponin was 690 which is quite elevated from the last documented troponin. He stated that she did not have serial troponins at her last visit and would like to keep her for observation. He requested admission to medicine.. 10:45 Differential diagnosis: pneumonia Acute LA, unstable angina, costochondritis. Data [facility] reviewed: vital signs, nurses notes, lab test result(s), EKG, radiologic studies, plain films. Data interpreted: hall monitor: rate is 78 beats/min, rhythm is regular, Pulse oximetry: is 98 %. Test interpretation: by ED physician or midlevel provider: ECG, plain radiologic studies. Counseling: I had a detailed discussion with the patient and/or guardian regarding: the historical points, exam findings, and any diagnostic results supporting the discharge/admit diagnosis, the need for further work-up and treatment in the hospital. Awaiting: bed assignment. ED course: The patient will be admitted to Dr. Luis Miguel Mendoza under observation.. 04/03 06:30 Order name: Basic Metabolic Panel; Complete Time: 10:11 [facility] 04/03 06:30 Order name: CBC with Diff; Complete Time: 09:46 [facility] 04/03 06:30 Order name: LFT's; Complete Time: 10:11 [facility] 04/03 06:30 Order name: Magnesium; Complete Time: 10:11 [facility] 04/03 06:30 Order name: NT PRO-BNP; Complete Time: 10:11 [facility] 04/03 06:30 Order name: PT-INR; Complete Time: 09:46 [facility] 04/03 06:30 Order name: Troponin HS; Complete Time: 10:11 [facility] 04/03 06:30 Order name: SARS RAPID; Complete Time: 10:10 [facility] 04/03 12:12 Order name: T4 Free; Complete Time: 17:50 EDMS 04/03 12:13 Order name: Thyroid Stimulating Hormone; Complete Time: 17:50 EDMS 04/03 12:13 Order name: Urinalysis EDMS 04/03 12:13 Order name: Basic Metabolic Panel EDMS 04/03 12:13 Order name: Basic Metabolic Panel EDMS 04/03 12:13 Order name: CBC with Automated Diff EDMS 04/03 06:30 Order name: XRAY Chest (1 view); Complete Time: 09:09 [facility] 04/03 06:30 Order name: EKG; Complete Time: 06:30 [facility] 04/03 06:30 Order name: Cardiac monitoring; Complete Time: 10:58 [facility] 04/03 06:30 Order name: EKG - Nurse/Tech; Complete Time: 10:26 [facility] 04/03 06:30 Order name: IV Saline Lock; Complete Time: 09:30 [facility] 04/03 06:30 Order name: Labs collected and sent; Complete Time: 09:30 [facility] 04/03 06:30 Order name: O2 Per Protocol; Complete Time: 10:58 [facility] 04/03 06:30 Order name: O2 Sat Monitoring; Complete Time: 10:58 [facility] 04/03 12:12 Order name: Heart Healthy EDMS 04/03 12:13 Order name: CBC with Automated Diff EDMS 04/03 12:13 Order name: NT PRO-BNP EDMS 04/03 12:13 Order name: NT PRO-BNP EDMS EC:38 Rate is 73 beats/min. Rhythm is regular. Left axis deviation noted. [place] interval is jh7 normal at 160 msec. QRS interval is prolonged at 168 msec. QT interval is normal at 428 msec. No Q waves. Clinical impression: Normal sinus rhythm with left bundle branch block. No change from previous ECG on March 28, 2022. Administered Medications: 09:33 Not Given (Patient Refused): Aspirin 81 mg PO once ap3 10:58 Drug: NS 0.9% 1000 ml Route: IV; Rate: 125 ml/hr; Site: left hand; 6 Disposition: 09:35 Co-signature as Attending Physician, Jose Alvarez MD I agree with the assessment and rt plan of care. Disposition Summary: 04/03/22 10:51 Hospitalization Ordered Hospitalization Status: Observation [facility] Provider: Luis Miguel Mendoza [facility] Condition: Stable [facility] Problem: new [facility] Symptoms: have worsened [facility] Bed/Room Type: Standard [facility] Location: Telemetry/MedSurg (observation)(04/03/22 15:35) bd Room Assignment: 212(04/03/22 15:35) Diagnosis - NSTEMI [facility] - Elevated Troponin [facility] Forms: - Medication Reconciliation Form [facility] - SBAR form [facility] Signatures: Dispatcher [employer] EDEva Corona Diana RN RN Elias Martinez MD MD cha Prokisch, Amanda RN RN ap3 Evelina Reaves RN RN vc1 Beatriz Parry, BUSINESS AFFAIRS MANAGER BUSINESS AFFAIRS MANAGER jh7 Niesha Araiza RN RN kc6 Cecy Quiros RN RN ll4 Jose Alvarez MD MD rt Corrections: (The following items were deleted from the chart) 11:23 10:51 Telemetry/MedSurg (observation) 7 ll4 11:23 10:51 [facility] ll4 14:46 11:[address] [facility] ER HOLD ll4 dw 14:46 11:23 ERHOLD- ll4 dw 15:23 14:46 Telemetry/MedSurg (observation) dw dw 15:23 14:46 211 dw dw 15:35 15:[address] [facility] ER HOLD dw bd 15:35 15:23 dw bd
[2022-04-03] MEDS ORDERED: NA CHLORIDE 0.9% 1,000 ML ONE (10:54)
[2022-04-03] MEDS ORDERED: ACETAMINOPHEN 325 MG TABLET PO PRN (12:01)
[2022-04-03] MEDS ORDERED: ONDANSETRON 4 MG/2 ML VIAL IV PRN (12:09)
--- NOTE | 2022-04-03 12:56 | P.HP ---
Certification for Inpatient Patient admitted to: Observation With expected LOS: <2 Midnights Patient will require the following post-hospital care: None Practitioner: I am a practitioner with admitting privileges, knowledge of patient current condition, hospital course, and medical plan of care. Services: Services provided to patient in accordance with Admission requirements found in Title 42 Section 412.3 of the Code of Federal Regulations Patient History Date of Service: 04/03/22 Reason for admission: Right shoulder pain History of Present Illness: Patient is a 56-year-old female with a past medical history significant for hypothyroidism, hypertension, anxiety disorder, bipolar disorder, CAD with stents, obesity, nicotine dependence who presents with complaint of right shoulder pain onset 3 days ago. Patient reported that pain radiates to her back. Patient rated pain as 5/10 in severity and described as dull pressure in quality. Patient reported that she was constipated 4 days ago and tried different natural vezr-epo-naxksjw laxatives. As patient was straining to have a bowel movement patient had an episode of bright red blood. Patient reported that she was able to have bowel movement and has not experience any episode of bleeding since then. Patient denies any other signs and symptoms. Symptoms are aggravated or relieved by nothing. Patient decided to present to the hospital due to worsening symptoms. Of note, patient had 2 stents placed last week by her coin machine collector. Allergies codeine Allergy (Verified 03/28/22 23:12) Unknown oxycodone Allergy (Verified 03/28/22 23:12) Hives/Rash Penicillins Adverse Reaction (Verified 03/28/22 23:12) yeast infection Home Medications: Albuterol Sulfate 1 puff IH TID 03/05/22 Albuterol Sulfate [Proair Hfa] 1 puff IH Q4HP PRN 03/05/22 Aspirin [Aspirin EC 81 MG] 162 mg PO DAILY #60 tab 03/05/22 Atorvastatin Calcium 10 mg PO DAILY 03/05/22 Benzonatate 200 mg PO TID 03/05/22 Citalopram [Celexa*] 10 mg PO DAILY 03/05/22 Clopidogrel Bisulfate [Plavix*] 75 mg PO DAILY 03/05/22 Doxycycline Hyclate 100 mg PO BID 03/05/22 Gabapentin 100 mg PO DAILY 03/05/22 Hydroxyzine HCl [Atarax] 10 mg PO DAILY 03/05/22 Ipratropium/Albuterol Sulfate [Iprat-Albut 0.5-3(2.5) mg/3 ml] 1 puff IH TID 03/05/22 Levothyroxine Sodium [Levothyroxine] 75 mcg PO DAILY 03/05/22 Nichols Carbonate [Nichols Carbonate ER] 450 mg PO BID 03/05/22 Loratadine/Pseudoephedrine [Loratadine-D 12 Hour Tablet] 1 tab PO DAILY 03/05/22 Metoprolol Succinate [Toprol Xl*] 100 mg PO BEDTIME 03/05/22 hydroCHLOROthiazide [Hydrochlorothiazide] 25 mg PO DAILY 03/05/22 predniSONE [Prednisone] 10 mg PO DAILY 03/05/22 LORazepam [Ativan] 0.5 mg PO BID PRN #30 tab 03/27/22 - Past Medical/Surgical History Diabetic: No -: Bipolar Disorder -: Atrial Fibrillation -: Diastolic CHF -: Hyperlipidemia -: Hodgkin's Lymphoma (1996) -: COPD -: x 2 -: Appendectomy Psychosocial/ Personal History: Patient lives at home. She has a son. - Social History Counseled patient to stop smoking for: less than 10 minutes Smoking therapy provided: Yes Patient receptive to therapy: Yes Alcohol use: No CD- Drugs: No Caffeine use: Yes Place of Residence: Home Review of Systems General: Unremarkable Eyes: Unremarkable ENT: Unremarkable Respiratory: Unremarkable Cardiovascular: Unremarkable Gastrointestinal: Constipation Genitourinary: Other (Hematochezia.) Musculoskeletal: Shoulder Pain, Back Pain Integumentary: Unremarkable Neurological: Unremarkable Lymphatics: Unremarkable Physical Examination - Physical Exam General: Alert, In no apparent distress, Oriented x3, Cooperative HEENT: Atraumatic, PERRLA Neck: Supple, 2+ carotid pulse no bruit, No LAD, Without JVD or thyroid abnormality Respiratory: Clear to auscultation bilaterally, Normal air movement Cardiovascular: No edema, Regular rate/rhythm, Normal S1 S2 Capillary refill: <2 Seconds Gastrointestinal: Normal bowel sounds, Soft and benign, No tenderness Musculoskeletal: No clubbing, No swelling, No contractures, No tenderness Integumentary: No rashes, No breakdown, No tenderness/swelling, No erythema Neurological: Normal speech, Normal tone, Normal affect Lymphatics: No axilla or inguinal lymphadenopathy - Studies Laboratory Data (last 24 hrs) 04/03/22 09:24: PT 10.9, INR 0.99 04/03/22 09:24: WBC 7.50, Hgb 13.7, Hct 40.8, Plt Count 236 04/03/22 09:24: Sodium 141, Potassium 4.4, BUN 10, Creatinine 0.72, Glucose 105, Magnesium 2.3, Total Bilirubin 0.4, AST 23, ALT 60 H, Alkaline Phosphatase 91 Assessment and Plan - Plan --Suspected ACS. Patient had 2 stents placed last week. Troponin elevated. Patient denies any chest pain. Serial troponins trending down. Cardiology consulted. Recommend trending troponin levels. Telemetry to monitor for any significant arrhythmia. We await further recommendations from coin machine collector. --Acute pain. We will manage pain on current pain medication regimen. --Bipolar disorder\anxiety disorder. Continue home medications. --CAD with stents. Continue aspirin, Plavix and statin. --Hyperlipidemia. Continue statin. --Hypertension. Stable. Continue home medications. --Nicotine dependence. Patient placed on nicotine patch and counseled on tobacco cessation. -- Obesity. Likely secondary to excess calories intake. Patient counseled on weight reduction, diet and exercise therapy. --Paroxysmal A. fib. EKG indicates normal sinus rhythm. Telemetry to monitor for any significant arrhythmia. --Right shoulder pain\/back pain. Range of motion intact with no appreciable pain.. We will manage pain with current pain medication regimen. -- DVT prophylaxis with Lovenox subQ. Discharge Plan: Home Plan to discharge in: Greater than 2 days - Advance Directives Does patient have a Living Will: No Does patient have a Durable POA for Healthcare: No - Code Status/Comfort Care Code Status Assessed: Yes Physician Review: Patient Assessed, Agree with Above Assessment and Plan Critical Care: No
[2022-04-03 13:08] LABS: Thyroid Stimulating Hormone 2.34 uIU/mL (0.358-3.740)
[2022-04-03 13:11] VITALS: BMI 39.6
[2022-04-03] MEDS ORDERED: HYDROCODONE/APAP 5/325 MG TAB ONE (13:27)
[2022-04-03] MEDS: HYDROCODONE/APAP 5/325 MG TAB PO PRN ×2 (13:27→20:33)
[2022-04-03] MEDS ORDERED: LORAZEPAM 0.5 MG TABLET ONE (13:58)
[2022-04-03] MEDS: LORAZEPAM 0.5 MG TABLET PO PRN (13:58)
[2022-04-03] MEDS: BENZONATATE 100 MG CAP PO SCH ×2 (13:58→20:34)
[2022-04-03] MEDS: HOME MED 1 EA UNK (Ipratropium/Albuterol Sulfate [Iprat-Albut 0.5-3(2.5) Mg/3 Ml] 3 ML Amp IH SCH (14:00)
--- NOTE | 2022-04-03 14:31 | EKG ---
Test Date: 2022-04-03 Test Time: 09:38:50 Ceramist: PREET MEASUREMENT RESULTS: Intervals: Rate: 73 [place]: 160 QRSD: 168 QT: 428 QTc: 471 [place]: P: 63 [place]: 160 QRS: -41 T: 70 INTERPRETIVE STATEMENTS: Normal sinus rhythm Possible Left atrial enlargement Left axis deviation Left bundle branch block Abnormal ECG Compared to ECG 03/28/2022 18:00:30 Left-axis deviation now present Electronically Signed On 04-03-22 14:30:28 LUMBER INSPECTOR by Sedrick Palumbo
--- NOTE | 2022-04-03 15:19 | CON ---
Date of Consultation: 04/03/2022 Reason For Consultation: Elevated troponin. History Of Present Illness: A -qmoq-scx female, status post recent non-ST elevation myocar dial infarction, status post PCI of the RCA and the LAD, did very well, sent home. Since yesterday, she has been having right shoulder pain and pain that is constant, not changing intensity and not rel ated to exertion. She has a past medical history of coronary artery disease, diastolic heart failure , dyslipidemia, COPD, and she is an active smoker. She has chronic paroxysmal atrial fibrillation. The patient was discharged on Plavix and aspirin and statin, and she said that she has been taking th em faithfully and denies having any chest pain or shortness of breath. Past Medical History: As outlined above in the HPI. Medications: Refer to reconciliation sheet for detailed list. Allergies: CODEINE, OXYCODONE, AND PENICILLIN. Family History: No premature coronary artery disease or cancer. Social History: Smokes about a pack per day. Does not drink, use any drugs. Review of Systems: All systems reviewed and they were negative except what mentioned in HPI. Physical Examination: Vital Signs: Reviewed. Head and Neck: Pupils are equal, reactive to light. Intact eye movements. No JVD. No cervical lym phadenopathy. Neck is supple. Thyroid is not enlarged. Lungs: Clear to auscultation bilaterally. No rhonchi, wheezing, or crackles. No accessory muscle u se. Heart: Regular rate and rhythm. No extra sounds. Abdomen: Soft, nontender. Bowel sounds positive. No organomegaly. No masses or hernia. No rigidi ty or rebound. Extremities: No edema, clubbing, or cyanosis. Intact pulses. Skin: No rash. Neurologic: Alert, awake, oriented x3. No acute focal deficits appreciated. Investigations: Troponins 689. BUN is 10, creatinine 0.72, NT-proBNP is 493, and hemoglobin is 13.7 . Assessment And Recommendations: 1.Elevated troponin and she has no chest pain, status post recent non-ST segment elevation myocardia l infarction. We did not check the troponin peak during that time, and her EKG showing left bundle, which is old. There is no chest pain. At this point, I recommend to continue aspirin, Plavix, and s tatin and trend troponin. If it trends up, then we will plan for repeat coronary angiogram tomorrow morning. If the troponins trends down, then no further intervention will be required. 2.Coronary artery disease. There is no chest pain, but troponin is slightly elevated. Plan as outl ined above. If the troponin rises, then we will heparinize and plan for coronary angiogram tomorrow. 3.Active smoker. She was counseled against smoking in details. Explained the importance to quit im mediately. 4.Dyslipidemia. Continue statin. SR/MODL Voice ID: [id number] Report ID: [id number]
[2022-04-03] MEDS ORDERED: INFLUENZA VACCINE (for 6+ mo) 0.5 ML DOSE IMVAC ONE (16:00)
[2022-04-03] MEDS: LITHIUM CARBONATE 450 MG PO SCH (20:33)
[2022-04-03] MEDS: ENOXAPARIN 40 MG/0.4 ML SQ SCH (20:34)
[2022-04-03] MEDS ORDERED: ATORVASTATIN 10 MG TAB PO SCH (21:00)
[2022-04-03] MEDS ORDERED: NITROGLYCERIN 0.4 MG/TAB SL ONE (21:57)
[2022-04-04] MEDS ORDERED: MORPHINE 2 MG/ML SYR IV PRN (01:12)
[2022-04-04] MEDS ORDERED: NITROGLYCERIN 0.4 MG/TAB SL ONE (03:18)
[2022-04-04] MEDS ORDERED: LORazepam 2 MG/ML VIAL IV ONE (05:29)
[2022-04-04 06:09] LABS: Absolute Lymphocytes (CBC) 1.6 K/uL (0.7-4.9); Hematocrit 40.1 % (36.0-45.0); Lymphocytes % 23.7 % (15.3-44.8); MCV 92.2 fL (80-100); MPV 7.9 fL (7.6-11.3); RBC Red Blood Cell Count 4.34 M/uL (3.86-4.86)
[2022-04-04] MEDS ORDERED: LEVOTHYROXINE SOD 0.075 MG TAB PO SCH (06:30)
[2022-04-04 06:36] LABS: Potassium 4.4 mmol/L (3.5-5.1)
[2022-04-04] MEDS: LORAZEPAM 0.5 MG TABLET PO PRN (08:34)
[2022-04-04] MEDS: LITHIUM CARBONATE 450 MG PO SCH (08:35)
[2022-04-04] MEDS: BENZONATATE 100 MG CAP PO SCH ×2 (08:36→13:55)
[2022-04-04] MEDS: CLOPIDOGREL 75 MG TABLET PO SCH ×2 (08:36→09:56)
[2022-04-04] MEDS ORDERED: GABAPENTIN 100 MG CAP PO SCH (09:00)
[2022-04-04] MEDS ORDERED: HYDROXYZINE HCL 10 MG/5 ML SYRUP UD PO SCH (09:00)
[2022-04-04] MEDS ORDERED: ASPIRIN 81 MG CHEWABLE TABLET PO SCH (09:00)
[2022-04-04] MEDS ORDERED: NICOTINE 21 MG/PAT TD SCH (09:00)
[2022-04-04] MEDS ORDERED: CITALOPRAM 10 MG TABLET PO SCH (09:00)
[2022-04-04] MEDS ORDERED: hydroCHLOROthiazide 25 MG TAB PO SCH (09:00)
[2022-04-04] MEDS ORDERED: LORATADINE/PSEUDO 12HR TAB PO SCH (09:00)
[2022-04-04] MEDS ORDERED: predniSONE 10 MG TAB PO SCH (09:00)
[2022-04-04] MEDS: HOME MED 1 EA UNK (Ipratropium/Albuterol Sulfate [Iprat-Albut 0.5-3(2.5) Mg/3 Ml] 3 ML Amp IH SCH ×2 (09:00→13:54)
[2022-04-04] MEDS: ENOXAPARIN 40 MG/0.4 ML SQ SCH (09:50)
[2022-04-04] MEDS ORDERED: LIDOCAINE 1% MPF 30 ML VIAL ONE (09:51)
[2022-04-04] MEDS ORDERED: HEPA 1000U/500MLS 2,000 UNIT/1,000 ML BAG IV ONE (09:51)
[2022-04-04] MEDS ORDERED: HEPARIN 10,000 UNIT/10 ML VIAL IV ONE (10:16)
[2022-04-04] MEDS ORDERED: NA CHLORIDE 0.9% 500 ML ONE (10:41)
--- NOTE | 2022-04-04 11:11 | PN ---
Date of Progress Note: 04/04/2022 Subjective: Seen by bedside, doing clinically well; however, she continues to have chest discomfort and now she is having pressure in the retrosternal area, but she is also anxious. Review of Systems: Positive for chest pain. No nausea, vomiting, diarrhea. No abdominal pain. No dysuria, polyuria, o r urinary urgency. All other systems reviewed and they were negative. Physical Examination: Vital Signs: Temperature is 97.4, pulse 72, breathing at 16, blood pressure 124/49, saturating 93% o n room air. General: Pleasant, middle-aged female, no apparent distress. Head and Neck: Pupils are equal, reactive to light. Intact eye movements. No JVD. No cervical lym phadenopathy. Neck is supple. Thyroid is not enlarged. Lungs: Clear to auscultation bilaterally. No rhonchi, wheezing, or crackles. No accessory muscle u se. Heart: Regular rate and rhythm. No extra sounds. Abdomen: Soft, nontender. Bowel sounds positive. No organomegaly. No masses or hernia. No rigidi ty or rebound. Extremities: No clubbing or cyanosis. Intact pulses. Skin: No rash. Neurologic: Alert, awake, oriented x3. No acute focal deficits appreciated. Investigations: Troponin is 652. BUN is 9, creatinine 0.66, and hemoglobin 13.3. Assessment And Recommendations: 1.Chest pain with positive troponin. This could be non-ST segment elevation myocardial infarction; however, this could be also residual from her recent non-ST elevation myocardial infarction. Given t he fact the patient is having frequent chest pains, I will plan to keep n.p.o., plan for a coronary a ngiogram today to evaluate the recently placed stents and then to continue aspirin and Plavix. 2.Active smoker. She was counseled to quit smoking. 3.Dyslipidemia. Continue statin. 4.Hypothyroidism, on thyroid replacement therapy. SR/MODL Voice ID: [id number] Report ID: [id number]
[2022-04-04] MEDS ORDERED: HEPARIN 5000 UNIT/ML 1 ML VIAL ONE (12:41)
[2022-04-04] MEDS ORDERED: VERAPAMIL HCL 10 MG/4 ML VIAL IV ONE (12:41)
[2022-04-04] MEDS ORDERED: CLOPIDOGREL 75 MG TABLET ONE (12:42)
[2022-04-04] MEDS ORDERED: FENTANYL CITR 100 MCG/2 ML ONE (12:42)
[2022-04-04] MEDS ORDERED: MIDAZOLAM HCL 2 MG/2 ML INJ ONE (12:43)
--- NOTE | 2022-04-04 15:26 | OP ---
Date of Procedure: 04/04/2022 Surgeon: SANJANA ECHAVARRIA Procedures Performed: 1.Selective coronary angiogram. 2.Left heart catheterization. Indication: [id number] myocardial infarction. Access: Carotid artery 6-Bur[place]ian closed with TR band. Complications: None. Bleeding: Less than 10 mL. Anesthesia: Total sedation time was 25 minutes, used fentanyl and Versed. Description Of Procedure: After risks, benefits, alternatives were explained, patient agreed to the procedure and signed informed consent. Patient was brought in the cardiac catheterization laboratory , prepped and draped in usual sterile fashion. Then, I accessed right radial artery using pediatric micropuncture kit, placed a 6-[place] slender sheath, and took 5-[place] 4 catheter into the aort ic root, engaged left main, right coronary artery and took standard views and then catheter was pushe d over the wire into the LV, measured the LVEDP and pullback not recorded in gradient. I then remove d the catheter and sheath and placed TR band with good hemostasis. Findings: 1.Left main: Normal. 2.LAD: There is proximal to mid LAD stent, is widely patent. The old stent has proximal 20% ____ stable. GRETCHEN-3 flow in the vessel. Normal diagonal branches. 3.Left circumflex is normal. No significant disease. 4.Ramus intermedius is very large and has proximal stent that is patent. 5.RCA: The mid RCA stent is patent. No significant disease otherwise and the jailed branch is havi ng GRETCHEN-3 flow, which appears to be much better since the last angiogram. Conclusion: 1.Patent LAD, ramus intermedius, and RCA stents. 2.Mild coronary artery disease elsewhere. Recommendations: Continue medical management. Patient can be released home today and follow up as o utpatient. SR/MODL Voice ID: [id number] Report ID: [id number]
[2022-04-04 15:28] VITALS: O2SAT 95
[2022-04-04 16:11] VITALS: BP 114/55; TEMP 98
--- NOTE | 2022-04-05 15:25 | EKG ---
Test Date: 2022-04-03 Test Time: 21:28:19 Reducer: KIRILL MEASUREMENT RESULTS: Intervals: Rate: 76 [place]: 172 QRSD: 146 QT: 426 QTc: 479 [employer]: P: 72 [place]: 172 QRS: 38 T: 47 INTERPRETIVE STATEMENTS: Normal sinus rhythm Left bundle branch block Abnormal ECG Compared to ECG 04/03/2022 09:38:50 Left-axis deviation no longer present Electronically Signed On 04-05-22 15:22:17 DIRECTOR POWER by Sedrick Palumbo
--- NOTE | 2022-04-05 23:08 | P.DS ---
Admission Date: 04/03/22 Discharge Date: 04/04/22 Disposition: ROUTINE DISCHARGE Discharge Condition: GOOD Reason for Admission: Right shoulder pain Consultations: Cardiology - Dr. Palumbo Brief History of Present Illness: 56-year-old female with a past medical history significant for hypothyroidism, hypertension, anxiety disorder, bipolar disorder, CAD with stents, obesity, nicotine dependence who presents with complaint of right shoulder pain onset 3 days ago. Patient reported that pain radiates to her back. Patient rated pain as 5/10 in severity and described as dull pressure in quality. Patient reported that she was constipated 4 days ago and tried different natural [id number] laxatives. As patient was straining to have a bowel movement patient had an episode of bright red blood. Patient reported that she was able to have bowel movement and has not experience any episode of bleeding since then. Patient denies any other signs and symptoms. Symptoms are aggravated or relieved by nothing. Patient decided to present to the hospital due to worsening symptoms. 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 Hospital Course: Problem List Chest pain CAD s/p PCI HTN HLD Bipolar disorder / anxiety disorder Paroxysmal Afib Patient presented with chest pain and noted to have elevated troponin. She recently had a cardiac catheterization with intervention. Troponin trended down and then had a small increase. Cardiology was consulted. Cardiac catheterization was performed on 04/04 and noted patent coronary arteries. She did not require any intervention. Suspect a component of her anxiety contributing to these sensations. She was deemed stable for discharge home. Vital Signs/Physical Exam: Temp Pulse Resp BP Pulse Ox 98.0 F 82 14 114/55 L 96 04/04/22 16:00 04/04/22 16:00 04/04/22 16:00 04/04/22 16:00 04/04/22 16:00 General: Alert, In no apparent distress, Oriented x3 HEENT: EOMI, Sclerae nonicteric Respiratory: Clear to auscultation bilaterally, Normal air movement Cardiovascular: No edema, Regular rate/rhythm Gastrointestinal: Soft and benign, Non-distended, No tenderness Musculoskeletal: No contractures, No tenderness Integumentary: No rashes, No significant lesion Neurological: Normal speech, Normal affect Laboratory Data at Discharge: WBC 6.80 K/uL (4.3-10.9) 04/04/22 05:41 Hgb 13.3 g/dL (12.0-15.0) 04/04/22 05:41 Hct 40.1 % (36.0-45.0) 04/04/22 05:41 Plt Count 221 K/uL (152-406) 04/04/22 05:41 PT 10.9 SECONDS (9.5-12.5) 04/03/22 09:24 INR 0.99 04/03/22 09:24 Sodium 140 mmol/L (136-145) 04/04/22 05:41 Potassium 4.4 mmol/L (3.5-5.1) 04/04/22 05:41 BUN 9 mg/dL (7-18) 04/04/22 05:41 Creatinine 0.66 mg/dL (0.55-1.02) 04/04/22 05:41 Glucose 111 mg/dL (74-106) H 04/04/22 05:41 Magnesium 2.3 mg/dL (1.6-2.4) 04/03/22 09:24 Total Bilirubin 0.4 mg/dL (0.2-1.0) 04/03/22 09:24 AST 23 U/L (15-37) 04/03/22 09:24 ALT 60 U/L (13-56) H 04/03/22 09:24 Alkaline Phosphatase 91 U/L (45-117) 04/03/22 09:24 Home Medications: Albuterol Sulfate 1 puff IH TID 03/05/22 Albuterol Sulfate [Proair Hfa] 1 puff IH Q4HP PRN 03/05/22 Aspirin [Aspirin EC 81 MG] 162 mg PO DAILY #60 tab 03/05/22 Atorvastatin Calcium 10 mg PO DAILY 03/05/22 Benzonatate 200 mg PO TID 03/05/22 Citalopram [Celexa*] 10 mg PO DAILY 03/05/22 Clopidogrel Bisulfate [Plavix*] 75 mg PO DAILY 03/05/22 Doxycycline Hyclate 100 mg PO BID 03/05/22 Gabapentin 100 mg PO DAILY 03/05/22 Hydroxyzine HCl [Atarax] 10 mg PO DAILY 03/05/22 Ipratropium/Albuterol Sulfate [Iprat-Albut 0.5-3(2.5) mg/3 ml] 1 puff IH TID 03/05/22 Levothyroxine Sodium [Levothyroxine] 75 mcg PO DAILY 03/05/22 [place] Carbonate [[place] Carbonate ER] 450 mg PO BID 03/05/22 Loratadine/Pseudoephedrine [Loratadine-D 12 Hour Tablet] 1 tab PO DAILY 03/05/22 Metoprolol Succinate [Toprol Xl*] 100 mg PO BEDTIME 03/05/22 hydroCHLOROthiazide [Hydrochlorothiazide] 25 mg PO DAILY 03/05/22 predniSONE [Prednisone] 10 mg PO DAILY 03/05/22 LORazepam [Ativan*] 0.5 mg PO BID PRN #30 tab 03/27/22 Physician Discharge Instructions: Patient presented with chest pain and noted to have elevated troponin. She recently had a cardiac catheterization with intervention. Troponin trended down and then had a small increase. Cardiology was consulted. Cardiac catheterization was performed on 04/04 and noted patent coronary arteries. She did not require any intervention. Suspect a component of her anxiety contributing to these sensations. She was deemed stable for discharge home. Followup: Humberto Mejia PA [Primary Care Provider] - (Please follow up with primary care physician in 1-2 weeks, Please call to schedule.) Time spent managing pt's care (in minutes): 45
== END 2022-04-04 18:06 | disposition home or self-care (01) ==
LOC: ER 05:02 → ERHOLD 11:59 → 2ND 15:42
PROVIDERS: ADMIT Hospitalist; ATTEND Hospitalist
DX: R07.89 Other chest pain (principal); I25.10 Atherosclerotic heart disease of native coronary artery without angina pectoris; F41.9 Anxiety disorder, unspecified; I48.0 Paroxysmal atrial fibrillation; I11.0 Hypertensive heart disease with heart failure; I50.30 Unspecified diastolic (congestive) heart failure; E78.5 Hyperlipidemia, unspecified; J44.9 Chronic obstructive pulmonary disease, unspecified; E03.9 Hypothyroidism, unspecified; F31.9 Bipolar disorder, unspecified; Z95.5 Presence of coronary angioplasty implant and graft; Z98.890 Other specified postprocedural states; E66.9 Obesity, unspecified; Z68.39 Body mass index [BMI] 39.0-39.9, adult; Z71.3 Dietary counseling and surveillance; Z71.82 Exercise counseling; F17.210 Nicotine dependence, cigarettes, uncomplicated; Z71.6 Tobacco abuse counseling; Z79.02 Long term (current) use of antithrombotics/antiplatelets; Z79.82 Long term (current) use of aspirin; Z79.52 Long term (current) use of systemic steroids; Z79.899 Other long term (current) drug therapy; Z88.5 Allergy status to narcotic agent; Z88.0 Allergy status to penicillin; Z85.72 Personal history of non-Hodgkin lymphomas; Z20.822 Contact with and (suspected) exposure to COVID-19; Z28.310 Unvaccinated for COVID-19
CPT/HCPCS: 93005 ×2; 85025 ×2; 80048 ×2; 36415; 83735; 85610; 80076; 84443; 84484 ×4; 84439; 83880 ×2; 71045; 93458; 76937; 99285; 87811; C1893; Q9966; J2001; J1644 ×2; J1650; J2250; J2270; G0378 ×4; J7040; J7030; J3010

== ENCOUNTER 2022-05-01 16:27 | Observation (INO) | payer OTHER ==
--- OUTSIDE RECORDS SUMMARY | 2022-05-01 16:52 | XMS REPORT | Continuity of Care Document ---
:1965 Author Organization [facility] t Address [address] [place] [address] Care Team Providers Name Role Phone Thai Pena [facility], 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 Unive rs chest pain chest pain 1-03 it y of 00:00: [facility] [place] [facility] Essential Essential Disease Active Uni vers hypertensi hypertensi 1-03 it y of on on 00:00: [facility] [place] [facility] Dyslipidem Dyslipidem Disease Active U nivers ia ia 1-03 ity of 00:00: [facility] [place] [facility] Allergies, Adverse Reactions, Alerts Allergy [...] Univers E INGREDI 6-10 ity of 00:00: [facility] [place] [facility] Oxycodon Propensi Active Rash Univer s e ty to 6-10 ity of adverse 00:00: [place] reaction 00 Medical s Branch oxyCODON oxyCODON Active Maria L Peñaloza Social History Social Habit Start Date Stop Date Quantity Comments Source History of Smokes tobacco University of tobacco use daily [facility] Exposure to 2022-02-14 2022-02-24 Not sure [facility] SARS-CoV-2 00:00:00 04:59:00 [facility] (event) Branch Alcohol intake 2022-01-15 2022-01-15 Current drinker Unive rsity of 00:00:00 00:00:00 of alcohol [facility] (finding) [place] Social History 2019-04-24 2019-04-24 [facility] Pra[facility] urias 17:19:51 17:19:51 Tobacco use and 2019-04-03 2019-04-03 Smokeless tobacco Un iversity of exposure 00:00:00 00:00:00 non-user [facility] Sex Ass[birth year] At [birth year] Universit y of 00:00:00 00:00:00 [facility] Smoking Status Start Date Stop Date Source Smokes tobacco daily 2019-04-03 00:00:00 [facility] Medications Ordered Filled Start Stop Current Ordering Indication Dosage Frequency Signature Comments Components Source Medication Medication Date Date Medication? Clinician (SIG) Name Name TAKE 1 2021-04 No TABLET BY 2-13 MOUTH DAILY 00:00: 00 TAKE 1 2021-04 No TABLET 2-13 DAILY. 00:00: 00 PLACE 1 2021-04 No UNDER THE 2-13 TONGUE 00:00: NEEDED FOR 00 CHEST PAIN 1 TAB UNDER TONGUE EVERY 5 MINS UP TO 3 TIMES IF NEEDED AND CALL 911 TAKE 1 2021-04 No TABLET 2-13 DAILY. 00:00: 00 INHALE 1 TO 2021-04 No 2 PUFFS 2-13 EVERY 4 TO 00:00: 6 HOURS 00 NEEDED. TAKE 1 2021-04 No TABLET 2-13 DAILY. 00:00: 00 1 CAPSULE 2021-04 No EVERY 8 2-13 HOURS 00:00: NEEDED FOR 00 COUGH TAKE 1 AND 2021-04 No 1/2 TABLETS 2-13 AT BEDTIME. 00:00: 00 TAKE 2021-04 No DIRECTED. 2-13 00:00: 00 USE 2021-04 No DIRECTED ON 2-13 PACKAGE 00:00: 00 USE 2 2021-04 No SPRAYS IN 2-13 EACH 00:00: NOSTRIL 00 ONCE DAILY TAKE 1 2021-04 No TABLET 2-13 DAILY. 00:00: 00 TAKE 1 TAB 2021-04 No IN THE 2-13 EVENING 00:00: WITH DINNER 00 TAKE 2021-04 No CAPSULE BY 2-13 MOUTH 3 00:00: TIMES A DAY 00 UNTIL FINISHED (TAKE WITH FOOD & DRINK PLENTY OF WATER) Dose 2021-04 No Unknown 2-13 00:00: 00 TAKE 1 2021-04 No TABLET BY 2-13 MOUTH EVERY 00:00: 8 HOURS 00 NTIL ALL GONE Dose 2021-04 No Unknown 2-13 00:00: 00 Dose 2021-04 No Unknown 2-13 00:00: 00 Dose 2021-04 No Unknown 2-13 00:00: 00 Dose 2021- No Unknown 2-13 00:00: 00 Dose 2021- No Unknown 2-13 00:00: 00 Dose 2021- No Unknown 2-13 00:00: 00 Dose 2021-1 No Unknown 2-13 00:00: 00 Dose 2021-04 No Unknown 2-13 00:00: 00 ipratropium 2021-04 Yes 3mL 3 mL, Unive [...] 40mg 40 mg, IV U nivers (LASIX) 001-15 Push, ity of injection 10:45: 10:45 ONCE, 1 Renzoa s 40 mg 00 :00 dose, On Medical Mon Branch 01/15/22 at 0545, NYASIA TAKE No TABLET BY 12-25 MOUTH EVERY 00:00: 4 HOURS 00 NEEDED FOR PAIN TAKE 0 No TABLET BY 12-25 MOUTH EVERY 00:00: 4 HOURS 00 NEEDED FOR PAIN TAKE 0 No TABLET BY 12-25 MOUTH EVERY 00:00: 4 HOURS 00 NEEDED FOR PAIN TAKE 0 No TABLET BY 12-25 MOUTH EVERY 00:00: [...] 00:00: 4 HOURS 00 NEEDED FOR PAIN Dose 0 No Unknown 12-25 00:00: 00 TAKE 2021-0 No TABLET BY 12-25 MOUTH [...] promethazin 2-0 No 1mg e 25 mg - tablet 00:00: 00 TAKE 1 2-0 No 75 TABLET 10-30 DAILY. 00:00: 00 TAKE 1-2 2022-0 No 20 TABLETS A 10-30 DAY 00:00: NEEDED 00 promethazin 2022-0 No 1mg e 25 mg 10-30 tablet [...] promethazin 2022-0 No 1mg e 25 mg 10-30 tablet 00:00: 00 TAKE 1 2022-0 No 75 TABLET 10-30 DAILY. 00:00: 00 TAKE 1-2 2022-0 No 20 TABLETS A 10-30 DAY 00:00: NEEDED 00 promethazin 2022-0 No 1mg e 25 mg 10-30 tablet 00:00: 00 TAKE 1 2022-0 No 75 TABLET 10-30 DAILY. 00:00: 00 TAKE 1-2 2022-0 No 20 TABLETS A 10-30 DAY 00:00: NEEDED 00 promethazin 2022-0 No 1mg e 25 mg 10-30 tablet 00:00: 00 TAKE 1 2022-0 No 75 TABLET 10-30 DAILY. 00:00: 00 TAKE 1-2 2022-0 No 20 TABLETS A 10-30 DAY 00:00: NEEDED 00 Dose 2022-0 No Unknown 10-30 00:00: 00 TAKE 1 2022-0 No 75 [...] promethazin 2022-0 No 1mg e 25 mg 8-01 tablet 00:00: 00 TAKE 1 2022-0 No 75 TABLET 8- DAILY. 00:00: 00 TAKE 1-2 2022-0 No 20 TABLETS A 8 DAY 00:00: NEEDED 00 promethazin 2022-0 No [...] TABLETS A 10-03 DAY 00:00: NEEDED 00 hydrochloro 2022-0 No [...] n 10 mg 6-14 tablet 00:00: 00 PLACE 1 2022-0 No UNDER THE 6-14 TONGUE 00:00: NEEDED FOR 00 CHEST PAIN 1 TAB UNDER TONGUE EVERY 5 MINS UP TO 3 TIMES IF NEEDED AND CALL 911 hydrochloro 2022-0 No 1mg thiazide 6-14 12.5 [...] 125 mg tablet Dose 2022-0 No Unknown 6-11 00:00: 00 amoxicillin 2022-0 No 1mg 875 6-11 [...] -% mg-10,000 00 unit/mL-1 % ear drops,susp Dose 2-0 No Unknown 6-02 00:00: 00 neomycin-po 2022-0 No 4mg/mL- lymyxin-hyd 6-02 unit/mL [...] tuation mcg/actuati 00:00: on aerosol 00 inhaler Dose 2022-0 No Unknown 5-06 00:00: 00 ProAir HFA 2022-0 No 2mcg/ac 90 5-06 [...] ne 75 mcg 4-20 tablet 00:00: 00 PLACE 1 2022-0 No UNDER THE 4-20 TONGUE 00:00: NEEDED FOR 00 CHEST PAIN 1 TAB UNDER TONGUE EVERY 5 MINS UP TO 3 TIMES IF NEEDED AND CALL 911 levothyroxi 2022-0 No 1mcg ne 75 mcg [...] Dose 2022-0 No Unknown 1-18 00:00: 00 Dose 2022-0 No Unknown 1-18 00:00: 00 Dose 2022-0 No Unknown 1-18 00:00: 00 Dose 2022-0 No Unknown 1-18 00:00: 00 [...] Dose 2022-0 No Unknown 1-11 00:00: 00 1 CAPSULE 2022-0 No EVERY 8 1-11 HOURS 00:00: NEEDED FOR 00 COUGH citalopram 2022-0 No 1mg 10 mg 1-11 [...] 1mg 75 mg 1-10 tablet 00:00: 00 Dose 2022-0 No Unknown 1-10 00:00: 00 clopidogrel 2022-0 No 1mg 75 mg 1-10 tablet 00:00: 00 clopidogrel 2022-0 No 1mg 75 mg 1-10 tablet 00:00: 00 clopidogrel 2022-0 No 1mg 75 mg 1-10 tablet 00:00: 00 albuterol 2022-0 No 1mg/3 [...] 1mg 150 mg 1-03 tablet 00:00: 00 Dose 2022-0 No Unknown 1-03 00:00: 00 Dose 2022-0 No Unknown 1-03 00:00: 00 Dose 2022-0 No Unknown 1-03 00:00: 00 Dose 2022-0 No Unknown 1-03 00:00: 00 albuterol 2-0 No 1mg/3 sulfate [...] ne 75 mcg 2-14 tablet 00:00: 00 Dose 2020-04 No Unknown 2-14 00:00: 00 levothyroxi 2020-04 No 1mcg ne [...] 1-30 00:00: 00 Dose 2021-1 No Unknown 1 00:00: 00 Dose 1-1 No Unknown 04-30 00:00: 00 Dose 1-1 No Unknown 04-30 00:00: 00 Dose 2021-1 No Unknown 04-30 00:00: 00 Dose 2021-1 No Unknown 04-30 00:00: 00 Dose 1-1 No Unknown 04-30 00:00: 00 Dose 2021-1 No Unknown 04-30 00:00: 00 Dose 1-1 No Unknown 04-30 00:00: 00 Dose 1-1 No Unknown 04-30 00:00: 00 Dose 1-1 No Unknown 04-30 00:00: 00 Dose 1-1 No Unknown 04-30 00:00: 00 clopidogrel 1-1 No 1mg 75 [...] 2021-1 No Unknown 1 00:00: 00 gabapentin 1-1 No 12mg 100 mg 1-23 capsule 00:00: 00 Dose 1-1 No Unknown 1 00:00: 00 Dose 2021-1 No Unknown 1 00:00: 00 lithium 1-1 No 1mg carbonate 1-23 ER 450 mg [...] 12mg 100 mg 0-26 capsule 00:00: 00 Dose 2021-1 No Unknown 0-26 00:00: 00 gabapentin 2021-1 No 12mg 100 [...] HCl 10 mg 0-15 tablet 00:00: 00 Dose 2021-1 No Unknown 0-15 00:00: 00 Dose 2021-1 No Unknown 0-15 00:00: 00 diclofenac 2021-1 No % 1 [...] ne 75 mcg 7-05 tablet 00:00: 00 PLACE 1 2021-0 No UNDER THE 7-05 TONGUE 00:00: NEEDED FOR 00 CHEST PAIN 1 TAB UNDER TONGUE EVERY 5 MINS UP TO 3 TIMES IF NEEDED AND CALL 911 atorvastati 2021-0 No 1mg n 10 mg 7-05 tablet 00:00: 00 levothyroxi 2021-0 No 1mcg ne 75 mcg 7-05 tablet 00:00: 00 Dose 2021-0 No Unknown 7-05 00:00: 00 Dose 2021-0 No Unknown 7-05 00:00: 00 Dose 2021-0 No Unknown 7-05 00:00: 00 metoprolol 2021-0 No 1mg succinate [...] tablet,exte 00 nded release 24 hr atorvastati 2021-0 No 1mg n 10 mg 6-14 tablet 00:00: 00 metoprolol 2021-0 No 1mg succinate 6-14 ER 100 mg 00:00: tablet,exte 00 nded release 24 hr levothyroxi 2021-0 No 1mcg ne 75 mcg 6-14 tablet 00:00: 00 Dose 2021-0 No Unknown 6-14 00:00: 00 levothyroxi 2021-0 No 1mcg ne [...] 0.4 mg 4-09 sublingual 00:00: tablet 00 PLACE 1 2021-0 No UNDER THE 4-09 TONGUE 00:00: NEEDED FOR 00 CHEST PAIN 1 TAB UNDER TONGUE EVERY 5 MINS UP TO 3 TIMES IF NEEDED AND CALL 911 atorvastati 2021-0 No 1mg n 10 mg 4-09 tablet 00:00: 00 clopidogrel 2021-0 No 1mg 75 mg 4-09 tablet 00:00: 00 atorvastati 2021-0 [...] 00:00: tablet,exte 00 nded release Vitamin D3 2021-0 No 1(1,000 25 mcg [...] 1-11 unit) (1,000 00:00: unit) 00 tablet Dose 2021-0 No Unknown 1-11 00:00: 00 Vitamin D3 2021-0 No 1(1,000 25 mcg [...] 75 mcg 2-26 tablet 00:00: 00 nitroglycer 2019-1 No 1mg in 0.4 mg 2-26 sublingual [...] mg 00:00: tablet,exte 00 nded release nitroglycer 2019-1 No 1mg in 0.4 mg 2-26 sublingual [...] 75 mg 2-26 tablet 00:00: 00 atorvastati 1 No 1mg n 10 mg 2-26 tablet [...] mg 00:00: tablet,exte 00 nded release nitroglycer 2019-1 No 1mg in 0.4 mg 2-26 sublingual 00:00: tablet 00 levothyroxi 2019-1 No 1mcg ne 75 mcg 2-26 tablet 00:00: 00 citalopram 2019-1 No 1mg 10 mg 2-26 tablet 00:00: 00 Aspirin 81 2020-0 Yes 81 mg = 1 Me moria MG Enteric 1-24 tab, PO, l Coated 17:20: Daily, # [place] Tablet 00 90 tab, 3 Refill(s) levothyroxi [...] tab, PO, l tablet 17:20: Daily, # [place] 00 30 tab, 0 Refill(s) metoprolol 2020-0 [...] tab, PO, l Coated 17:20: Daily, # [place] Tablet 00 90 tab, 3 Refill(s) levothyroxi [...] tab, PO, l tablet 17:20: Daily, # [place] 00 30 tab, 0 Refill(s) metoprolol 2020-0 Yes 100 mg = 1 M emoria 100 mg oral 1-24 tab, PO, l tablet, 17:20: Daily, # [place] n extended 00 30 tab, 0 release Refill(s) atorvastati 2020-0 Yes PO, Daily, Memoria n 1-24 0 l 17:20: Refill(s) [place] Aspirin 81 2020-0 Yes 81 mg = [...] Memoria n 1-24 0 l 17:20: Refill(s) [place] 00 Aspirin 81 2020-0 Yes 81 mg [...] tab, PO, l tablet 17:20: Daily, # [place] 00 30 tab, 0 Refill(s) metoprolol 2020-0 [...] Daily, # 30 tab, 0 Refill(s) lithium 2019-0 Yes 450 mg, Memoria carbonate 1-24 PO, BID, 0 l 17:20: Refill(s) citalopram 2019-0 Yes 10 mg = 1 Me moria 10 mg oral 1-24 tab, PO, l tablet 17:20: Daily, # [place] 00 30 tab, 0 Refill(s) metoprolol 0 Yes 100 mg = 1 M emoria 100 mg oral 1-24 tab, PO, l tablet, 17:20: Daily, # [place] n extended 00 30 tab, 0 release Refill(s) atorvastati 2019-0 Yes PO, Daily, Memoria n 1-24 0 l 17:20: Refill(s) Aspirin 81 2019-0 Yes 81 mg = 1 Me moria MG Enteric 1-24 tab, PO, l Coated 17:20: Daily, # Jh Tablet 00 90 tab, 3 Refill(s) metoprolol 2019-0 Yes 100 mg = [...] 1-24 PO, BID, 0 l 17:20: Refill(s) [place] 00 levothyroxi 2020-0 Yes 75 Memori a ne 75 mcg 1-24 microgram l (0.075 mg) 17:20: = 1 tab, Her mcneal oral tablet 00 PO, Daily, # 30 tab, 0 Refill(s) citalopram 2020-0 Yes 10 mg = 1 Me moria 10 mg oral 1-24 tab, PO, l tablet 17:20: Daily, # [place] 00 30 tab, 0 Refill(s) lithium 2020-0 Yes 450 mg, Memoria carbonate 1-24 PO, BID, 0 l 17:20: Refill(s) Jh 00 citalopram 2020-0 Yes 10 mg = 1 Me moria 10 mg oral 1-24 tab, PO, l tablet 17:20: Daily, # [place] 00 30 tab, 0 Refill(s) metoprolol 2020-0 Yes 100 mg = 1 M emoria 100 mg oral 1-24 tab, PO, l tablet, 17:20: Daily, # [place] n extended 00 30 tab, 0 release Refill(s) atorvastati 2020-0 Yes PO, Daily, Memoria n 1-24 0 l 17:20: Refill(s) [place] 00 Aspirin 81 2020-0 Yes 81 mg = 1 Me moria MG Enteric 1-24 tab, PO, l Coated 17:20: Daily, # [place] Tablet 00 90 tab, 3 Refill(s) levothyroxi [...] tab, PO, l tablet 17:20: Daily, # [place] 00 30 tab, 0 Refill(s) metoprolol 2020-0 [...] tab, PO, l Coated 17:20: Daily, # [place] Tablet 00 90 tab, 3 Refill(s) levothyroxi [...] tab, PO, l Coated 17:20: Daily, # [place] Tablet 00 90 tab, 3 Refill(s) levothyroxi [...] tab, PO, l Coated 17:20: Daily, # [place] Tablet 00 90 tab, 3 Refill(s) levothyroxi [...] tab, PO, l tablet 17:20: Daily, # Hj 00 30 tab, 0 Refill(s) metoprolol 2020-0 Yes 100 mg = 1 M emoria 100 mg oral 1-24 tab, PO, l tablet, 17:20: Daily, # [place] n extended 00 30 tab, 0 release Refill(s) atorvastati 2020-0 Yes PO, Daily, Memoria n 1-24 0 l 17:20: Refill(s) [place] Aspirin 81 2020-0 Yes 81 mg = [...] tab, PO, l tablet 17:20: Daily, # [place] 00 30 tab, 0 Refill(s) metoprolol 2020-0 Yes 100 mg = 1 M emoria 100 mg oral 1-24 tab, PO, l tablet, 17:20: Daily, # [place] n extended 00 30 tab, 0 release Refill(s) atorvastati 2020-0 Yes PO, Daily, Memoria n 1-24 0 l 17:20: Refill(s) [place] 00 Aspirin 81 2020-0 Yes 81 mg = 1 Me moria MG Enteric 1-24 tab, PO, l Coated 17:20: Daily, # [place] Tablet 00 90 tab, 3 Refill(s) levothyroxi 2020-0 Yes 75 Memori a ne 75 mcg 1-24 microgram l (0.075 mg) 17:20: = 1 tab, Her mcneal oral tablet 00 PO, Daily, # 30 tab, 0 Refill(s) lithium 2020-0 Yes 450 mg, Memoria carbonate 1-24 PO, BID, 0 l 17:20: Refill(s) [place] 00 citalopram 2020-0 Yes 10 mg = 1 Me moria 10 mg oral 1-24 tab, PO, l tablet 17:20: Daily, # [place] 00 30 tab, 0 Refill(s) metoprolol 2020-0 Yes 100 mg = 1 M emoria 100 mg oral 1-24 tab, PO, l tablet, 17:20: Daily, # [place] n extended 00 30 tab, 0 release Refill(s) atorvastati 2020-0 Yes PO, Daily, Memoria n 1-24 0 l 17:20: Refill(s) [place] 00 Aspirin 81 2020-0 Yes 81 mg [...] 1-24 PO, BID, 0 l 17:20: Refill(s) [place] 00 citalopram 2020-0 Yes 10 mg = [...] Memoria n 1-24 0 l 17:20: Refill(s) lithium 2020-0 Yes 450mg Take 450 Unive rs carbonate 1-03 mg by ity of CR 450 mg 18:44: mouth 2 [place] SR tablet 18 (two) Medical times Branch daily. levothyroxi 2020-0 Yes 75ug Take 75 Uni vers ne 75 mcg 1-03 mcg by ity of tablet 18:44: mouth [place] [address] every Medical morning. Branch clopidogrel 2020-0 Yes 75mg Take 75 mg Univers (PLAVIX) 75 1-03 by mouth ity of mg tablet 18:44: daily. [place] [address] Medical Branch metoprolol 2020-0 Yes 100mg Take [...] by mouth ity of tablet 18:44: daily. [place] [address] Medical Branch citalopram 2020-0 Yes 20mg Take 20 mg U nivers 20 mg 1-03 by mouth ity of tablet 18:44: daily. [place] [address] Medical Branch lithium 2020-0 Yes 450mg Take [...] mouth ity of mg tablet 18:44: daily. [place] [address] Medical Branch metoprolol 2020-0 Yes 100mg Take [...] by mouth ity of tablet 18:44: daily. [place] [address] Medical Branch citalopram 2020-0 Yes 20mg Take 20 mg U nivers 20 mg 1-03 by mouth ity of tablet 18:44: daily. [place] [address] Medical Branch lithium 2020-0 Yes 450mg Take [...] mouth ity of mg tablet 18:44: daily. [place] [address] Medical Branch metoprolol 2020-0 Yes 100mg Take [...] by mouth ity of tablet 18:44: daily. [place] [address] Medical Branch citalopram 2020-0 Yes 20mg Take 20 mg U nivers 20 mg 1-03 by mouth ity of tablet 18:44: daily. [place] [address] Medical Branch lithium 2020-0 Yes 450mg Take [...] mouth ity of mg tablet 18:44: daily. [place] [address] Medical Branch metoprolol 2020-0 Yes 100mg Take 100 Un debo succinate 1-03 mg by ity of 100 mg CSpX 18:44: mouth [place] 18 daily. Medical Branch atorvastati 2020-0 Yes 10mg Take 10 mg Univers n 10 mg 1-03 by mouth ity of tablet 18:44: at [place] [address] bedtime. Medical Branch aspirin 81 2020-0 Yes 81mg Take 81 mg U nivers mg chewable 1-03 by mouth ity of tablet 18:44: daily. [place] [address] Medical Branch citalopram 2020-0 Yes 20mg Take 20 mg U nivers 20 mg 1-03 by mouth ity of tablet 18:44: daily. [place] [address] Medical Branch lithium 2020-0 Yes 450mg Take [...] mouth ity of mg tablet 18:44: daily. [place] [address] Medical Branch metoprolol 2019-0 Yes 100mg Take 100 Un debo succinate 1-03 mg by ity of 100 mg CSpX 18:44: mouth [place] 18 daily. Medical Branch atorvastati 2019-0 Yes 10mg Take 10 mg Univers n 10 mg 1-03 by mouth ity of tablet 18:44: at [place] [address] bedtime. Medical Branch aspirin 81 2020-0 Yes 81mg Take 81 mg U nivers mg chewable 1-03 by mouth ity of tablet 18:44: daily. [place] [address] Medical Branch citalopram 2019-0 Yes 20mg Take 20 mg U nivers 20 mg 1-03 by mouth ity of tablet 18:44: daily. [place] [address] Medical Branch ipratropium 2017-04 Yes 3mL Inhale [...] 12:00:00 145 mm[Hg] Univer sity of pressure [facility] Diastolic blood 2022-02-24 12:00:00 81 mm[Hg] Unive rsity of pressure [facility] Heart rate 2022-02-24 12:00:00 88 /min [facility] ty [facility] [place] [facility] [place] Respiratory rate 2022-02-24 12:00:00 18 /min Univ ersity of [facility] Oxygen saturation in 2022-02-24 12:00:00 98 /min University of Arterial blood by [place] [employer] renu Pulse oximetry Branch Body temperature 2022-02-24 11:00:00 36.78 Margarita Univ ersity of [facility] Body height 2022-02-24 11:00:00 157.5 cm [facility] [place] [facility] [place] Body weight 2022-02-24 11:00:00 105.235 kg [facility] [place] [facility] [place] BMI 2022-02-24 11:00:00 42.43 kg/m2 [facility] [place] [facility] [place] Systolic blood 2022-01-15 11:49:00 138 mm[Hg] Univer sity of [facility] Diastolic blood 2022-01-15 11:49:00 74 mm[Hg] Unive rsity of [facility] Heart rate 2022-01-15 11:49:00 80 /min [facility] [place] [facility] Respiratory rate 2022-01-15 11:49:00 22 /min Univ ersity of [facility] Oxygen saturation in 2022-01-15 11:49:00 91 /min University of Arterial blood by [place] [employer] renu Pulse oximetry Branch Body temperature 2022-01-15 10:01:00 35.89 Margarita Univ ersity of [facility] Body height 2022-01-15 10:01:00 157.5 cm [facility] [place] [facility] [place] Body weight 2022-01-15 10:01:00 103.42 kg [facility] [place] [facility] [place] BMI 2022-01-15 10:01:00 41.70 kg/m2 Universi ty of [facility] Branch BP Systolic 2022-04-05 11:25:00 140 mm[Hg] BP Diastolic 2022-04-05 11:25:00 74 mm[Hg] Weight Measured 2022-04-05 11:25:00 220.80 pounds Height Measured 2022-04-05 11:25:00 62.00 inches Body Temperature 2022-04-05 11:25:00 97.60 degrees Heart Rate 2022-04-05 11:25:00 91.00 /min Respiratory Rate 2022-04-05 11:25:00 BP Systolic 2022-03-06 09:46:00 112 mm[Hg] BP [...] Peñaloza BMI Calculated 2019-04-24 17:15:00 Maria L evita Peñaloza Procedures Procedure Date / Time Performing Clinician Source Performed REFERRAL- 2022-03-06 06:01:00 Doctor Unassmatthew, [facility] REQUEST/RESPONSE [place] [facility] XR CHEST 1 VW 2022-02-24 11:28:44 [facility] LIPASE 2022-02-24 11:08:00 [facility] TROPONIN I 2022-02-24 11:08:00 [facility] COMP. METABOLIC PANEL 2022-02-24 11:08:00 Dolores Patterson [facility] ([id number]) [facility] CBC WITH DIFF 2022-02-24 11:08:00 [facility] PROTHROMBIN TIME / INR 2022-02-24 11:08:00 Dolores Patterson [facility] ACTIVATED PARTIAL 2022-02-24 11:08:00 Dolores Patterson [facility] THRMPLAS [facility] RAPID INFLUENZA A/B 2022-02-24 11:08:00 Dolores Patterson [facility] CONSENT/REFUSAL FOR 2022-02-24 10:53:13 Doctor Unassmatthew, [facility] DIAGNOSIS AND TREATMENT [place] [facility] XR CHEST 1 VW 2022-01-15 10:43:31 Rustam Looney [facility] URINALYSIS 2022-01-15 10:13:00 Rustam Looney [facility] LIPASE 2022-01-15 10:05:00 Rustam Looney [facility] TROPONIN I 2022-01-15 10:05:00 Rustam Looney [facility] COMP. METABOLIC PANEL 2022-01-15 10:05:00 Rustam Looney [facility] ([id number]) [facility] CBC WITH DIFF 2022-01-15 10:05:00 Rustam Looney [facility] PROTHROMBIN TIME / INR 2022-01-15 10:05:00 Rustam Looney [facility] ACTIVATED PARTIAL 2022-01-15 10:05:00 Rustam Looney [facility] THRMPLAS DANNA [facility] N-TERMINAL PRO-BNP 2022-01-15 10:05:00 Rustam Looney [facility] CONSENT/REFUSAL FOR 2022-01-15 09:53:55 Doctor Darion, [facility] DIAGNOSIS AND TREATMENT [place] [facility] [place] REFERRAL- 2021-08-09 05:01:00 Doctor Unaabigail, [facility] REQUEST/RESPONSE [place] [facility] Abdominoplasty 2003-04-01 00:00:00 [facility] mcneal 1991-04-01 00:00:00 [facility] mcneal section<sup>1</sup> Plan of Care Planned Activity Planned Date Details Comments Source Goal Plan of Care Note [code = 52024-4] Goal Plan of Care Note [code = 94360-5] Goal Plan of Care Note [code = 86903-9] Goal Plan of Care Note [code = 85825-8] Goal Plan of Care Note [code = 71714-9] Goal Plan of Care Note [code = 28727-0] Goal Plan of Care Note [code = 42564-6] Goal Plan of Care Note [code = 40928-0] Goal Plan of Care Note [code = 06737-2] Goal Plan of Care Note [code = 94687-3] Goal Plan of Care Note [code = 03179-9] Goal Plan of Care Note [code = 12659-6] Goal Plan of Care Note [code = 49518-5] Goal Plan of Care Note [code = 49725-4] Goal Plan of Care Note [code = 96647-3] Goal Plan of Care Note [code = 21024-4] Goal Plan of Care Note [code = 76193-4] Goal Plan of Care Note [code = 79601-3] Goal Plan of Care Note [code = 90834-0] Goal Plan of Care Note [code = 08004-2] Goal Plan of Care Note [code = 19924-6] Goal Plan of Care Note [code = 91181-4] Goal Plan of Care Note [code = 57967-7] Goal Plan of Care Note [code = 42817-2] Goal Plan of Care Note [code = 99521-2] Goal Plan of Care Note [code = 34980-3] Goal Plan of Care Note [code = 54676-2] Goal Plan of Care Note [code = 32422-6] Goal Plan of Care Note [code = 79396-3] Goal Plan of Care Note [code = 64389-5] Goal Plan of Care Note [code = 52565-9] Goal Plan of Care Note [code = 78892-8] Goal Plan of Care Note [code = 70032-3] Goal Plan of Care Note [code = 19324-8] Goal Plan of Care Note [code = 62582-2] Goal Plan of Care Note [code = 99158-4] Goal Plan of Care Note [code = 93933-0] Goal Plan of Care Note [code = 90457-4] Goal Plan of Care Note [code = 95152-9] Goal Plan of Care Note [code = 28662-9] Goal Plan of Care Note [code = 94001-8] Goal Plan of Care Note [code = 81185-2] Goal Plan of Care Note [code = 96957-3] Goal Plan of Care Note [code = 60885-6] Goal Plan of Care Note [code = 22040-1] Goal Plan of Care Note [code = 33637-9] Goal Plan of Care Note [code = 32432-5] Goal Plan of Care Note [code = 88036-2] Goal Plan of Care Note [code = 91295-2] Goal Plan of Care Note [code = 44219-9] Goal Plan of Care Note [code = 27094-8] Goal Plan of Care Note [code = 48818-3] Goal Plan of Care Note [code = 08760-8] Goal Plan of Care Note [code = 75073-7] Goal Plan of Care Note [code = 23690-5] Goal Plan of Care Note [code = 53985-4] Goal Plan of Care Note [code = 40581-4] Goal Plan of Care Note [code = 86807-3] Goal Plan of Care Note [code = 53528-3] Goal Plan of Care Note [code = 86776-7] Goal Plan of Care Note [code = 03747-9] Goal Plan of Care Note [code = 52956-5] Goal Plan of Care Note [code = 94320-9] Goal Plan of Care Note [code = 54231-4] Goal Plan of Care Note [code = 95435-6] Goal Plan of Care Note [code = 11415-2] Goal Plan of Care Note [code = 45452-1] Goal Plan of Care Note [code = 69744-7] Goal Plan of Care Note [code = 67987-7] Goal Plan of Care Note [code = 53225-4] Goal Plan of Care Note [code = 02989-7] Goal Plan of Care Note [code = 56615-3] Goal Plan of Care Note [code = 71735-6] Goal Plan of Care Note [code = 59001-6] Goal Plan of Care Note [code = 99345-3] Goal Plan of Care Note [code = 20237-4] Goal Plan of Care Note [code = 31895-6] Goal Plan of Care Note [code = 59673-4] Goal Plan of Care Note [code = 87317-3] Goal Plan of Care Note [code = 29122-5] Goal Plan of Care Note [code = 97622-9] Goal Plan of Care Note [code = 46812-5] Goal Plan of Care Note [code = 85524-0] Goal Plan of Care Note [code = 00651-2] Goal Plan of Care Note [code = 10828-4] Goal Plan of Care Note [code = 96963-5] Goal Plan of Care Note [code = 00526-2] Goal Plan of Care Note [code = 76276-6] Goal Plan of Care Note [code = 77030-5] Goal Plan of Care Note [code = 98455-0] Goal Plan of Care Note [code = 66810-8] Goal Plan of Care Note [code = 58368-7] Goal Plan of Care Note [code = 49622-5] Goal Plan of Care Note [code = 92388-1] Goal Plan of Care Note [code = 90663-3] Goal Plan of Care Note [code = 26283-3] Goal Plan of Care Note [code = 60812-4] Goal Plan of Care Note [code = 57549-9] Goal Plan of Care Note [code = 14303-1] Goal Plan of Care Note [code = 39447-4] Goal Plan of Care Note [code = 80140-1] Goal Plan of Care Note [code = 41044-9] Goal Plan of Care Note [code = 02278-4] Goal Plan of Care Note [code = 80115-8] Goal Plan of Care Note [code = 67453-6] Goal Plan of Care Note [code = 53082-7] Goal Plan of Care Note [code = 37821-8] Goal Plan of Care Note [code = 79877-2] Goal Plan of Care Note [code = 17699-2] Goal Plan of Care Note [code = 50459-6] Goal Plan of Care Note [code = 61070-5] Goal Plan of Care Note [code = 60688-9] Goal Plan of Care Note [code = 40235-1] Goal Plan of Care Note [code = 32251-4] Goal Plan of Care Note [code = 41769-8] Goal Plan of Care Note [code = 71463-3] Goal Plan of Care Note [code = 50753-1] Goal Plan of Care Note [code = 68880-1] Goal Plan of Care Note [code = 16397-6] Goal Plan of Care Note [code = 01647-5] Goal Plan of Care Note [code = 47425-3] Goal Plan of Care Note [code = 63962-3] Goal Plan of Care Note [code = 87320-7] Goal Plan of Care Note [code = 05822-4] Goal Plan of Care Note [code = 48538-1] Goal Plan of Care Note [code = 12409-6] Goal Plan of Care Note [code = 45256-8] Goal Plan of Care Note [code = 28233-7] Goal Plan of Care Note [code = 96850-7] Goal Plan of Care Note [code = 32394-4] Goal Plan of Care Note [code = 57179-8] Goal Plan of Care Note [code = 53834-0] Goal Plan of Care Note [code = 83588-3] Goal Plan of Care Note [code = 24244-6] Goal Plan of Care Note [code = 88029-3] Goal Plan of Care Note [code = 12886-8] Goal Plan of Care Note [code = 39721-2] Goal Plan of Care Note [code = 29486-9] Goal Plan of Care Note [code = 49018-0] Goal Plan of Care Note [code = 06850-4] Goal Plan of Care Note [code = 58113-7] Goal Plan of Care Note [code = 43985-6] Goal Plan of Care Note [code = 15844-6] Goal Plan of Care Note [code = 52049-1] Goal Plan of Care Note [code = 31077-7] Goal Plan of Care Note [code = 45243-9] Goal Plan of Care Note [code = 95748-7] Goal Plan of Care Note [code = 88554-3] Goal Plan of Care Note [code = 75565-5] Goal Plan of Care Note [code = 01502-0] Goal Plan of Care Note [code = 29294-4] Goal Plan of Care Note [code = 12379-4] Goal Plan of Care Note [code = 08330-6] Goal Plan of Care Note [code = 81120-5] Goal Plan of Care Note [code = 81196-8] Goal Plan of Care Note [code = 18836-8] Goal Plan of Care Note [code = 23313-6] Goal Plan of Care Note [code = 91137-5] Goal Plan of Care Note [code = 64733-9] Goal Plan of Care Note [code = 83078-1] Goal Plan of Care Note [code = 89781-2] Goal Plan of Care Note [code = 99243-5] Goal Plan of Care Note [code = 83529-1] Goal Plan of Care Note [code = 40535-4] Goal Plan of Care Note [code = 23285-5] Goal Plan of Care Note [code = 41322-1] Goal Plan of Care Note [code = 08862-9] Goal Plan of Care Note [code = 73549-3] Goal Plan of Care Note [code = 59996-0] Goal Plan of Care Note [code = 91691-5] Goal Plan of Care Note [code = 37412-2] Goal Plan of Care Note [code = 51126-1] Goal Plan of Care Note [code = 48374-2] Goal Plan of Care Note [code = 74300-6] Goal Plan of Care Note [code = 59730-8] Goal Plan of Care Note [code = 74117-8] Goal Plan of Care Note [code = 87736-8] Goal Plan of Care Note [code = 31387-5] Goal Plan of Care Note [code = 33389-4] Goal Plan of Care Note [code = 38868-5] Goal Plan of Care Note [code = 05367-8] Goal Plan of Care Note [code = 26268-9] Goal Plan of Care Note [code = 75079-9] Goal Plan of Care Note [code = 94404-8] Goal Plan of Care Note [code = 67997-3] Goal Plan of Care Note [code = 26735-5] Goal Plan of Care Note [code = 15230-1] Goal Plan of Care Note [code = 88651-5] Goal Plan of Care Note [code = 65345-2] Goal Plan of Care Note [code = 04897-2] Goal Plan of Care Note [code = 47158-3] Goal Plan of Care Note [code = 41527-1] Goal Plan of Care Note [code = 48847-3] Goal Plan of Care Note [code = 21475-2] Goal Plan of Care Note [code = 46849-0] Goal Plan of Care Note [code = 12437-9] Goal Plan of Care Note [code = 90710-2] Goal Plan of Care Note [code = 62774-9] Goal Plan of Care Note [code = 62043-6] Goal Plan of Care Note [code = 05139-8] Goal Plan of Care Note [code = 51978-8] Goal Plan of Care Note [code = 63809-0] Goal Plan of Care Note [code = 48774-8] Goal Plan of Care Note [code = 76915-9] Goal Plan of Care Note [code = 95442-5] Goal Plan of Care Note [code = 29654-9] Goal Plan of Care Note [code = 19552-6] Goal Plan of Care Note [code = 15376-4] Goal Plan of Care Note [code = 94778-1] Goal Plan of Care Note [code = 58491-2] Goal Plan of Care Note [code = 11409-6] Goal Plan of Care Note [code = 83721-4] Goal Plan of Care Note [code = 20096-1] Goal Plan of Care Note [code = 72909-6] Goal Plan of Care Note [code = 55581-6] Goal Plan of Care Note [code = 88188-0] Goal Plan of Care Note [code = 78046-8] Goal Plan of Care Note [code = 92536-4] Goal Plan of Care Note [code = 73415-9] Goal Plan of Care Note [code = 83999-0] Goal Plan of Care Note [code = 77947-4] Goal Plan of Care Note [code = 90947-1] Goal Plan of Care Note [code = 08626-8] Goal Plan of Care Note [code = 31379-1] Goal Plan of Care Note [code = 30822-4] Goal Plan of Care Note [code = 17791-5] Goal Plan of Care Note [code = 96651-0] Goal Plan of Care Note [code = 97335-6] Goal Plan of Care Note [code = 76955-9] Goal Plan of Care Note [code = 48348-4] Goal Plan of Care Note [code = 65260-8] Goal Plan of Care Note [code = 87268-7] Goal Plan of Care Note [code = 41566-9] Goal Plan of Care Note [code = 50540-3] Goal Plan of Care Note [code = 41827-9] Goal Plan of Care Note [code = 40551-6] Goal Plan of Care Note [code = 60353-2] Goal Plan of Care Note [code = 42353-1] Goal Plan of Care Note [code = 58631-6] Goal Plan of Care Note [code = 27236-7] Goal Plan of Care Note [code = 07691-4] Goal Plan of Care Note [code = 24116-3] Goal Plan of Care Note [code = 84868-2] Goal Plan of Care Note [code = 96561-6] Goal Plan of Care Note [code = 71855-3] Goal Plan of Care Note [code = 09743-1] Goal Plan of Care Note [code = 82227-4] Goal Plan of Care Note [code = 18639-1] Goal Plan of Care Note [code = 07343-0] Goal Plan of Care Note [code = 53173-8] Goal Plan of Care Note [code = 32254-5] Goal Plan of Care Note [code = 74067-0] Goal Plan of Care Note [code = 88692-9] Goal Plan of Care Note [code = 16057-4] Goal Plan of Care Note [code = 47855-7] Goal Plan of Care Note [code = 12767-4] Goal Plan of Care Note [code = 99548-0] Goal Plan of Care Note [code = 50968-5] Goal Plan of Care Note [code = 95878-5] Goal Plan of Care Note [code = 41543-8] Goal Plan of Care Note [code = 42354-8] Goal Plan of Care Note [code = 80153-0] Goal Plan of Care Note [code = 26459-2] Goal Plan of Care Note [code = 37007-5] Goal Plan of Care Note [code = 49363-1] Goal Plan of Care Note [code = 95885-9] Goal Plan of Care Note [code = 83336-1] Goal Plan of Care Note [code = 90443-1] Goal Plan of Care Note [code = 62879-0] Goal Plan of Care Note [code = 88637-3] Goal Plan of Care Note [code = 87212-2] Goal Plan of Care Note [code = 87256-5] Goal Plan of Care Note [code = 73140-4] Goal Plan of Care Note [code = 84229-2] Goal Plan of Care Note [code = 10208-5] Goal Plan of Care Note [code = 48525-7] Goal Plan of Care Note [code = 70742-8] Goal Plan of Care Note [code = 08991-8] Goal Plan of Care Note [code = 14909-5] Goal Plan of Care Note [code = 08037-2] Goal Plan of Care Note [code = 73370-8] Goal Plan of Care Note [code = 06324-3] Goal Plan of Care Note [code = 31068-7] Goal Plan of Care Note [code = 03548-1] Goal Plan of Care Note [code = 05956-6] Goal Plan of Care Note [code = 94422-7] Goal Plan of Care Note [code = 44467-8] Goal Plan of Care Note [code = 31977-9] Goal Plan of Care Note [code = 65341-8] Goal Plan of Care Note [code = 84736-9] Goal Plan of Care Note [code = 72415-0] Goal Plan of Care Note [code = 06951-0] Goal Plan of Care Note [code = 93067-3] Goal Plan of Care Note [code = 71565-5] Goal Plan of Care Note [code = 58854-3] Goal Plan of Care Note [code = 45162-6] Goal Plan of Care Note [code = 53884-5] Goal Plan of Care Note [code = 41439-3] Goal Plan of Care Note [code = 72569-3] Goal Plan of Care Note [code = 75717-0] Goal Plan of Care Note [code = 63615-5] Goal Plan of Care Note [code = 38611-7] Goal Plan of Care Note [code = 67945-9] Goal Plan of Care Note [code = 04513-7] Goal Plan of Care Note [code = 97142-9] Goal Plan of Care Note [code = 94757-7] Goal Plan of Care Note [code = 24521-7] Goal Plan of Care Note [code = 67713-9] Goal Plan of Care Note [code = 73810-2] Goal Plan of Care Note [code = 36372-1] Goal Plan of Care Note [code = 18123-0] Goal Plan of Care Note [code = 58551-9] Goal Plan of Care Note [code = 77861-3] Goal Plan of Care Note [code = 44302-5] Goal Plan of Care Note [code = 04357-8] Goal Plan of Care Note [code = 49913-3] Goal Plan of Care Note [code = 94010-7] Goal Plan of Care Note [code = 49366-7] Goal Plan of Care Note [code = 47771-3] Goal Plan of Care Note [code = 95960-2] Goal Plan of Care Note [code = 02309-7] Goal Plan of Care Note [code = 62223-4] Goal Plan of Care Note [code = 86611-2] Goal Plan of Care Note [code = 13046-8] Goal Plan of Care Note [code = 55669-2] Goal Plan of Care Note [code = 28579-5] Goal Plan of Care Note [code = 40165-3] Goal Plan of Care Note [code = 58894-7] Goal Plan of Care Note [code = 15108-4] Goal Plan of Care Note [code = 83502-1] Goal Plan of Care Note [code = 08958-5] Goal Plan of Care Note [code = 86099-8] Goal Plan of Care Note [code = 10397-8] Goal Plan of Care Note [code = 83867-5] Goal Plan of Care Note [code = 34271-0] Goal Plan of Care Note [code = 49796-1] Goal Plan of Care Note [code = 56191-1] Goal Plan of Care Note [code = 73489-0] Goal Plan of Care Note [code = 58309-7] Goal Plan of Care Note [code = 24327-4] Goal Plan of Care Note [code = 76507-2] Goal Plan of Care Note [code = 98939-8] Goal Plan of Care Note [code = 80927-3] Goal Plan of Care Note [code = 24253-6] Goal Plan of Care Note [code = 36690-8] Goal Plan of Care Note [code = 68720-8] Goal Plan of Care Note [code = 24049-8] Goal Plan of Care Note [code = 49899-7] Goal Plan of Care Note [code = 98215-8] Goal Plan of Care Note [code = 86425-5] Goal Plan of Care Note [code = 41092-6] Goal Plan of Care Note [code = 39608-0] Goal Plan of Care Note [code = 65731-3] Goal Plan of Care Note [code = 86480-6] Goal Plan of Care Note [code = 82147-5] Goal Plan of Care Note [code = 85167-1] Goal Plan of Care Note [code = 54973-5] Goal Plan of Care Note [code = 91194-5] Goal Plan of Care Note [code = 74041-7] Goal Plan of Care Note [code = 03259-9] Goal Plan of Care Note [code = 40940-1] Goal Plan of Care Note [code = 77766-8] Goal Plan of Care Note [code = 90640-4] Goal Plan of Care Note [code = 70244-7] Goal Plan of Care Note [code = 74403-5] Goal Plan of Care Note [code = 04862-5] Goal Plan of Care Note [code = 78853-1] Goal Plan of Care Note [code = 67853-6] Goal Plan of Care Note [code = 91226-8] Goal Plan of Care Note [code = 45989-6] Goal Plan of Care Note [code = 90730-5] Goal Plan of Care Note [code = 38046-5] Goal Plan of Care Note [code = 48102-9] Goal Plan of Care Note [code = 12536-5] Goal Plan of Care Note [code = 37600-4] Goal Plan of Care Note [code = 21297-9] Goal Plan of Care Note [code = 21447-7] Goal Plan of Care Note [code = 01070-7] Goal Plan of Care Note [code = 79080-1] Goal Plan of Care Note [code = 89636-3] Goal Plan of Care Note [code = 71026-6] Goal Plan of Care Note [code = 30488-5] Goal Plan of Care Note [code = 39127-3] Goal Plan of Care Note [code = 61087-4] Goal Plan of Care Note [code = 37422-9] Goal Plan of Care Note [code = 24811-5] Goal Plan of Care Note [code = 68197-5] Goal Plan of Care Note [code = 22979-0] Goal Plan of Care Note [code = 95439-1] Goal Plan of Care Note [code = 06191-8] Goal Plan of Care Note [code = 11381-0] Goal Plan of Care Note [code = 87419-3] Goal Plan of Care Note [code = 60739-3] Goal Plan of Care Note [code = 39315-2] Goal Plan of Care Note [code = 99737-6] Goal Plan of Care Note [code = 36174-1] Goal Plan of Care Note [code = 04140-0] Goal Plan of Care Note [code = 72310-7] Goal Plan of Care Note [code = 38646-2] Goal Plan of Care Note [code = 66934-1] Goal Plan of Care Note [code = 24994-2] Goal Plan of Care Note [code = 55445-9] Goal Plan of Care Note [code = 66189-8] Goal Plan of Care Note [code = 02003-2] Goal Plan of Care Note [code = 42815-8] Goal Plan of Care Note [code = 37444-3] Goal Plan of Care Note [code = 30004-7] Goal Plan of Care Note [code = 96948-3] Goal Plan of Care Note [code = 82797-1] Goal Plan of Care Note [code = 64619-4] Goal Plan of Care Note [code = 15335-0] Goal Plan of Care Note [code = 34465-0] Goal Plan of Care Note [code = 10960-8] Goal Plan of Care Note [code = 30008-9] Goal Plan of Care Note [code = 51373-3] Goal Plan of Care Note [code = 51345-1] Goal Plan of Care Note [code = 77648-0] Goal Plan of Care Note [code = 93290-7] Goal Plan of Care Note [code = 21079-5] Goal Plan of Care Note [code = 78749-3] Goal Plan of Care Note [code = 92329-6] Goal Plan of Care Note [code = 93473-0] Goal Plan of Care Note [code = 44382-0] Goal Plan of Care Note [code = 94842-6] Goal Plan of Care Note [code = 84710-3] Goal Plan of Care Note [code = 18728-8] Goal Plan of Care Note [code = 98309-2] Goal Plan of Care Note [code = 87410-4] Goal Plan of Care Note [code = 15146-2] Goal Plan of Care Note [code = 02599-2] Goal Plan of Care Note [code = 77264-3] Goal Plan of Care Note [code = 76475-1] Goal Plan of Care Note [code = 93527-0] Goal Plan of Care Note [code = 39087-0] Goal Plan of Care Note [code = 46709-1] Goal Plan of Care Note [code = 53196-8] Goal Plan of Care Note [code = 36755-7] Goal Plan of Care Note [code = 42128-1] Goal Plan of Care Note [code = 05212-6] Goal Plan of Care Note [code = 02123-3] Goal Plan of Care Note [code = 92736-3] Goal Plan of Care Note [code = 64066-1] Goal Plan of Care Note [code = 37983-5] Goal Plan of Care Note [code = 23821-5] Goal Plan of Care Note [code = 07009-0] Goal Plan of Care Note [code = 63947-7] Goal Plan of Care Note [code = 75382-9] Goal Plan of Care Note [code = 67860-3] Goal Plan of Care Note [code = 84923-3] Goal Plan of Care Note [code = 29491-2] Goal Plan of Care Note [code = 19384-2] Goal Plan of Care Note [code = 14888-8] Goal Plan of Care Note [code = 87179-2] Goal Plan of Care Note [code = 82704-7] Goal Plan of Care Note [code = 54724-2] Goal Plan of Care Note [code = 00886-9] Goal Plan of Care Note [code = 91886-4] Goal Plan of Care Note [code = 68826-6] Goal Plan of Care Note [code = 52950-7] Goal Plan of Care Note [code = 21217-0] Goal Plan of Care Note [code = 37176-4] Goal Plan of Care Note [code = 49488-1] Goal Plan of Care Note [code = 02173-0] Goal Plan of Care Note [code = 51349-2] Goal Plan of Care Note [code = 94715-3] Goal Plan of Care Note [code = 18142-1] Goal Plan of Care Note [code = 05412-1] Goal Plan of Care Note [code = 88681-8] Goal Plan of Care Note [code = 95815-7] Goal Plan of Care Note [code = 85933-1] Goal Plan of Care Note [code = 96860-4] Goal Plan of Care Note [code = 92288-4] Goal Plan of Care Note [code = 51356-1] Goal Plan of Care Note [code = 99061-7] Goal Plan of Care Note [code = 00475-0] Goal Plan of Care Note [code = 48464-1] Goal Plan of Care Note [code = 84257-4] Goal Plan of Care Note [code = 18614-9] Goal Plan of Care Note [code = 74600-3] Goal Plan of Care Note [code = 87908-4] Goal Plan of Care Note [code = 47969-1] Goal Plan of Care Note [code = 08396-9] Goal Plan of Care Note [code = 16331-9] Goal Plan of Care Note [code = 01638-1] Goal Plan of Care Note [code = 91862-9] Goal Plan of Care Note [code = 53092-2] Goal Plan of Care Note [code = 20748-3] Goal Plan of Care Note [code = 70811-7] Goal Plan of Care Note [code = 00891-3] Goal Plan of Care Note [code = 21478-4] Goal Plan of Care Note [code = 79339-7] Goal Plan of Care Note [code = 79752-2] Goal Plan of Care Note [code = 23224-6] Goal Plan of Care Note [code = 44830-9] Goal Plan of Care Note [code = 76371-6] Goal Plan of Care Note [code = 30121-9] Goal Plan of Care Note [code = 86191-0] Goal Plan of Care Note [code = 64406-4] Goal Plan of Care Note [code = 65283-6] Goal Plan of Care Note [code = 87326-1] Goal Plan of Care Note [code = 22738-2] Goal Plan of Care Note [code = 94854-0] Goal Plan of Care Note [code = 43453-0] Goal Plan of Care Note [code = 61267-0] Goal Plan of Care Note [code = 25104-5] Goal Plan of Care Note [code = 39896-1] Goal Plan of Care Note [code = 70564-3] Goal Plan of Care Note [code = 46372-3] Goal Plan of Care Note [code = 40840-5] Goal Plan of Care Note [code = 66707-1] Goal Plan of Care Note [code = 88116-9] Goal Plan of Care Note [code = 74460-7] Goal Plan of Care Note [code = 24364-5] Goal Plan of Care Note [code = 56552-2] Goal Plan of Care Note [code = 70025-2] Goal Plan of Care Note [code = 38621-8] Goal Plan of Care Note [code = 07632-8] Goal Plan of Care Note [code = 25328-7] Goal Plan of Care Note [code = 39844-4] Goal Plan of Care Note [code = 70862-9] Goal Plan of Care Note [code = 80809-3] Goal Plan of Care Note [code = 83605-6] Goal Plan of Care Note [code = 22444-2] Goal Plan of Care Note [code = 22444-2] Goal Plan of Care Note [code = 41783-5] Goal Plan of Care Note [code = 40892-4] Goal Plan of Care Note [code = 25923-5] Goal Plan of Care Note [code = 49828-5] Goal Plan of Care Note [code = 21132-1] Goal Plan of Care Note [code = 17820-6] Goal Plan of Care Note [code = 83194-1] Goal Plan of Care Note [code = 20555-4] Goal Plan of Care Note [code = 58766-9] Goal Plan of Care Note [code = 17197-0] Goal Plan of Care Note [code = 57840-1] Goal Plan of Care Note [code = 47185-1] Goal Plan of Care Note [code = 65354-3] Goal Plan of Care Note [code = 70192-0] Goal Plan of Care Note [code = 14299-4] Goal Plan of Care Note [code = 25757-1] Goal Plan of Care Note [code = 88272-7] Goal Plan of Care Note [code = 35101-5] Goal Plan of Care Note [code = 58011-2] Goal Plan of Care Note [code = 34053-6] Goal Plan of Care Note [code = 52094-2] Goal Plan of Care Note [code = 37078-2] Goal Plan of Care Note [code = 73664-1] Goal Plan of Care Note [code = 76376-3] Goal Plan of Care Note [code = 98858-9] Goal Plan of Care Note [code = 09985-7] Goal Plan of Care Note [code = 52538-8] Goal Plan of Care Note [code = 34740-2] Goal Plan of Care Note [code = 08241-8] Goal Plan of Care Note [code = 45410-8] Goal Plan of Care Note [code = 93535-1] Goal Plan of Care Note [code = 84750-4] Goal Plan of Care Note [code = 70703-0] Goal Plan of Care Note [code = 44201-7] Goal Plan of Care Note [code = 01404-6] Goal Plan of Care Note [code = 74813-6] Goal Plan of Care Note [code = 11753-9] Goal Plan of Care Note [code = 87318-9] Goal Plan of Care Note [code = 47906-2] Goal Plan of Care Note [code = 10672-4] Goal Plan of Care Note [code = 22251-5] Goal Plan of Care Note [code = 81866-3] Goal Plan of Care Note [code = 20212-2] Goal Plan of Care Note [code = 13680-8] Goal Plan of Care Note [code = 53463-6] Goal Plan of Care Note [code = 21016-6] Goal Plan of Care Note [code = 68488-4] Goal Plan of Care Note [code = 30575-0] Goal Plan of Care Note [code = 68218-3] Goal Plan of Care Note [code = 69529-7] Goal Plan of Care Note [code = 40133-8] Goal Plan of Care Note [code = 91015-5] Goal Plan of Care Note [code = 03310-5] Goal Plan of Care Note [code = 07698-1] Goal Plan of Care Note [code = 43549-0] Goal Plan of Care Note [code = 37014-8] Goal Plan of Care Note [code = 40525-6] Goal Plan of Care Note [code = 65658-4] Goal Plan of Care Note [code = 35010-1] Goal Plan of Care Note [code = 11424-0] Goal Plan of Care Note [code = 06204-4] Goal Plan of Care Note [code = 10316-6] Goal Plan of Care Note [code = 51550-5] Goal Plan of Care Note [code = 72515-0] Goal Plan of Care Note [code = 65289-3] Goal Plan of Care Note [code = 87036-9] Goal Plan of Care Note [code = 28974-5] Goal Plan of Care Note [code = 46878-0] Goal Plan of Care Note [code = 97577-2] Goal Plan of Care Note [code = 59510-7] Goal Plan of Care Note [code = 20448-1] Goal Plan of Care Note [code = 09736-1] Goal Plan of Care Note [code = 43540-5] Goal Plan of Care Note [code = 04993-9] Goal Plan of Care Note [code = 72009-5] Goal Plan of Care Note [code = 92360-5] Goal Plan of Care Note [code = 05261-7] Goal Plan of Care Note [code = 36462-7] Goal Plan of Care Note [code = 71576-9] Goal Plan of Care Note [code = 35953-8] Goal Plan of Care Note [code = 68052-6] Goal Plan of Care Note [code = 30363-2] Goal Plan of Care Note [code = 08187-2] Goal Plan of Care Note [code = 10385-2] Goal Plan of Care Note [code = 69589-3] Goal Plan of Care Note [code = 79308-3] Goal Plan of Care Note [code = 95004-4] Goal Plan of Care Note [code = 71862-8] Goal Plan of Care Note [code = 65615-9] Goal Plan of Care Note [code = 37883-4] Goal Plan of Care Note [code = 69925-2] Goal Plan of Care Note [code = 73573-8] Goal Plan of Care Note [code = 51048-5] Goal Plan of Care Note [code = 12166-6] Encounters Start End Encounter Admission Attending Care Care Encounter Source Date/Time Date/Time Type Type Clinicians Facility Department ID 2022-04-16 2022-04-16 Outpatient MAURY MENDIOLA [id number] [place] 08:59:19 08:59:19 0116 F Robert 2022-04-05 2022-04-05 Outpatient MAURY [facility] [id number] 023 [place] 11:12:48 11:12:48 0105 F Robert 2022-04-05 2022-04-05 Outpatient [id number] 00:00:00 00:00:00 Visit 3650-42ea 650-42ea-b -a48q-4et [id number] 2022-03-14 2022-03-14 Outpatient SFA SFA [id number] 022 Thai 16:14:51 16:14:51 1214 F Robert 2022-03-07 2022-03-07 Outpatient SFA SFA [id number] 022 Thai 08:57:39 08:57:39 1207 F Robert 2022-03-06 2022-03-06 Outpatient SFA SFA [id number] 022 Thai 08:57:24 08:57:24 1206 F Robert 2022-03-06 2022-03-06 Orders Doctor GWEN [id number] [employer] 00:00:00 00:00:00 Only Unassigned, LINA 350.1.13.10 ity of [place] [facility] 4.2.7.2.686 Renzo as [phone] [address] 2022-03-06 2022-03-06 Outpatient [id number]- [id number] 00:00:00 00:00:00 Visit 7948-4ece 948-4ece-b -o753-749 725-393fb5 in325u38v 34c61e 2022-03-04 2022-03-04 Outpatient SFA SFA [id number] 022 Thai 09:40:39 09:40:39 1204 F Robert 2022-03-04 2022-03-04 Outpatient [id number]- [id number] [id number] 00:00:00 00:00:00 Visit 5e92-54w2 e57-65l4-3 -4tn2-4lx fc3-7df7dd 6dani9083 uv8149 2022-03-02 2022-03-02 Outpatient SFA SFA [id number] 022 [place] 08:08:33 08:08:33 1202 F Robert 2022-02-27 2022-02-27 Outpatient [id number]- [id number] 00:00:00 00:00:00 Visit 5955-473f 955-473f-b -e4l2-iu6 4f4-os72ke 5co5l1984 3f7864 2022-02-26 2022-02-26 Outpatient SFA SFA [id number] 022 [place] 14:53:39 14:53:39 1128 F Robert 2022-02-26 2022-02-26 Outpatient [id number]- [id number] 00:00:00 00:00:00 Visit 753b-4256 53b-4256-8 -1sm9-r18 aa5-s7105v 76q4121tf 5360ba 2022-02-24 2022-02-24 Emergency X AUFDERHEIDE DEMB ERT [id number] [facility] 04:55:00 06:12:00 , DOLORES gerardo of [facility] 2022-02-24 2022-02-24 Emergency [place] [facility] [id number] Univers 04:55:00 06:12:00 , Dolores YAN 350.1.13.10 i ty of [place] PRIETO 4.2.7.2.686 [facility] [id number] [address] 2022-02-20 2022-02-20 Outpatient SFA SFA [id number] 022 Thai 11:12:21 11:12:21 1122 F Robert 2022-02-20 2022-02-20 Outpatient [id number]- [id number] a8 7836z7-t 00:00:00 00:00:00 Visit hz13-2zx6 h67-8pb0-1 -857d-6cd 57d-5xn100 530o7xw7m a4ee5c 2022-02-15 2022-02-15 Outpatient 5o4q08ex- [id number] 3d 0n84qc-4 00:00:00 00:00:00 Visit 2fcc-405f fcc-405f-9 -33d8-223 0u4-60784v [id number] 742260 9645-11-16 2022-02-14 Outpatient SFA SFA [id number] 022 Thai 14:09:23 14:09:23 1116 F Robert 2022-02-14 2022-02-14 Outpatient [id number]- [id number] 12w226-n 00:00:00 00:00:00 Visit q61l-12qi 69c-48ba-8 -3p00-78t w75-40q231 9645ylp0l 5cde0b 2022-02-06 2022-02-06 Outpatient [facility] 58948-6 022 Thai 10:02:54 10:02:54 1108 F Robert 2022-02-06 2022-02-06 Outpatient [id number]- [id number] 54f695-8 00:00:00 00:00:00 Visit 2l60-5x74 h72-1y13-o -z3x0-04r 2b7-04d6ds 7dad7f5fp c7a7ab 2022-01-15 2022-01-15 Emergency X [facility] ERT [id number] Univers 04:57:00 06:53:00 RUSTAM gerardo [facility] 2022-01-15 2022-01-15 Emergency [facility] [id number] [id number] Univers 04:57:00 06:53:00 [facility]13.[facility] 4.2.7.2.686 [facility] [phone] [address] 2022-01-02 2022-01-[address] [facility] SFA 79834-5 022 Thai 09:09:54 09:09:54 1004 F Robert 2022-01-02 2022-01-02 Outpatient [id number]- [id number] 2f 3b6fuy-6 00:00:00 00:00:00 Visit 784c-4105 84c-4105-8 -9u82-8aq b58-8zfv75 n53h6n970 x6w464 2021-12-26 2021-12-26 Outpatient 01ez3b1d- [id number] jc4k0r-7 00:00:00 00:00:00 Visit 3fda-47a9 fda-47a9-b -y308-45x 352-41ee21 h705017ms 9444ab 2021-11-20 2021-11-20 GWEN Amanda 1.2.840.114 [id number] Univers 00:00:00 00:00:00 (Out) Humberto MILLS 350.1.13.10 it [facility] 4.2.7.2.686 Renzo as [phone] [facility] [address] 2021-10-30 2021-10-30 Outpatient [id number]- [id number] c7 196pd4-3 00:00:00 00:00:00 Visit 3kh6-48ae ad8-42bd-9 -9211-800 211-800c65 z0245axd8 14fbe3 2021-10-03 2021-10-03 Outpatient 6p0z7864- [id number] 5d 8v7419-7 00:00:00 00:00:00 Visit 0049-42e3 049-42e3-8 -8699-e24 699-e24b68 n1232018i 84642u 2021-08-09 2021-08-09 Orders Doctor GWEN 1.2.840.114 [id number] Univers 00:00:00 00:00:00 Only Unassigned, LINA 350.1.13.10 ity of [place] [facility] 4.2.7.2.686 Renzo as [phone] [facility] [address] 2019-05-01 2019-05-03 Outside nullFlavo [facility] [id number] Memoria 19:12:13 05:59:59 Medical r Gastroenter 00 l Records ology [facility] 2019-05-01 2019-05-03 Outside nullFlavo [facility] [id number] Memoria 19:12:13 05:59:59 Medical r Gastroenter 00 l Records ology [facility] 2019-05-01 2019-05-02 Outpatient [facility] [id number] 13:12:13 23:59:59 00 2019-04-24 2019-04-25 Outpatient nullFlavo [facility] [id number] Memoria 17:00:00 05:59:59 r Gastroenter 00 l ology [facility] 2019-04-24 2019-04-25 Outpatient nullFlavo [facility] [id number] Memoria 17:00:00 05:59:59 r Gastroenter 00 l ology [facility] 2019-04-24 2019-04-24 Outpatient Alida, [facility] [id number] 11:00:00 23:59:59 Nadim Torey 00 2019-04-24 2019-04-24 [id number] Memoria 11:00:00 11:00:00 00 l Jh 2019-04-03 2019-04-03 Outpatient Lokesh DAO [facility] [id number] [facility] 04:46:22 18:43:00 [facility] Results Test Description Test Time Test Comments Results Result Comments Source TSH, THIRD GENERATION 2022-04-17 05:59:26 Test Item Value Reference Range Interpretation Comme nts TSH, THIRD GENERATION (test code = 2821) 1.240 UIU/ML 0.400-4.100 FOLLICLE STIM [id number] 05:59:26 Test Item Value Reference Range Interpretation Comments FOLLICLE STIM 24.3 IU/L SEE BELOW EXPEC ALEX VALUES HORMONE (test code FOR FSH F OR FEMALES >17 = 2700) YEARS M ALES FEMALES >=18 Y EARS 1.5-12.4 IU/L F OLLICULAR 3.5-12.5 IU/L M ID-CYCLE PEAK 4.7-21.5 I U/L LUTEAL PHASE 1.7-7.7 I U/L POSTMENOPAUSAL 25.8-134.8 IU/L LIPID [id number] 03:20:31 Test Item Value Reference Range Interpretation Comments CHOLESTEROL (test 134 MG/DL <200 code = 2210) TRIGLYCERIDES (test 139 MG/DL <150 code = 2232) HDL CHOLESTEROL (test 33 MG/DL >39 L code = 2220) CALC LDL CHOL (test 77 MG/DL <100 NOTE: C ALCULATED LDL code = 2237) IS BASED ON LEELA-JERONIMO METHOD WHICHINCLUDES ADJUSTABLE TRIGLYCERIDE:VL DL CHOLESTEROL RAT IO.THIS FACTOR VARIES B Y MEASURED TRIGLY CERIDE AND NON-HDLCHOL ESTEROL CONCENTRATIONS WITH INCREASED CALCU LATED LDL SEENIN HIGH ER TRIGLYCERIDE OR LOWER NON-HDL SPECIME NS. FOR MOREINFORMATION , SEE CLIENT ANNOUNCE MENT AT [email or web address] RISK RATIO LDL/HDL 2.33 RATIO <3.22 (test code = 2238) [id number] 03:19:56 Test Item Value Reference Range Interpretation Comments LITHIUM (test code 0.33 MEQ/L 0.60-1.20 L UNLESS O THERWISE = 2038) INDICATED, ALL TESTING PERFORMED [facility] PATHOLOGY [employer]. [address] [place] [address] 7875 4 LABORATORY DIRE CTOR: TANNER HOPKINS M.D. CLIA NUMBER [id number] [facility] ACCREDITATI ON NO. OCCULT BLD,FECAL,IMMUNOASSAY [id number] 12:54:25 Test Item Value Reference Range Interpretation Comments OCCULT BLD, FECAL NEGATIVE NEGATIVE UNLESS OT HERWISE (test code = 71299) INDICATE D, ALL TESTING PERFORMED [facility] PATHOLOGY [employer]. [address] [place] [address] [facility] DIRECTOR: Sahara HUTSONIA NUMBER [id number] CAP ACCREDITATION N O. OCCULT BLD,FECAL,IMMUNOASSAY [id number] 00:00:00 Test Item Value Reference Range Interpretation Comments OCCULT BLD, FECAL (test code = NEGATIVE 92955) OCCULT BLD,FECAL,IMMUNOASSAY [id number] 00:00:00 Test Item Value Reference Range Interpretation Comments OCCULT BLD, FECAL (test code = NEGATIVE 93779) OCCULT BLD,FECAL,IMMUNOASSAY [id number] 00:00:00 Test Item Value Reference Range Interpretation Comments OCCULT BLD, FECAL (test code = NEGATIVE 81477) [id number] 00:00:00 Test Item Value Reference Range Interpretation Comments LITHIUM (test code = 2038) 0.48 MEQ/L [id number] 00:00:00 Test Item Value Reference Range Interpretation Comments LITHIUM (test code = 2038) 0.48 MEQ/L [id number] 00:00:00 Test Item Value Reference Range Interpretation Comments LITHIUM (test code = 2038) 0.48 MEQ/L CBC W/AUTO [id number] 00:00:00 Test Item Value Reference Range Interpretation Comments WBC (test code = 1001) 13.0 K/UL RBC (test code = 1002) 4.88 M/UL HEMOGLOBIN (test code = 1003) 14.7 G/DL HEMATOCRIT (test code = 1004) 43.3 % MCV (test code = 1005) 88.7 fL MCH (test code = 1006) 30.1 PG MCHC (test code = 1007) 33.9 G/DL RDW (test code = 1038) 13.0 % NEUTROPHILS (test code = 1008) 74.3 % LYMPHOCYTES (test code = 1010) 18.2 % MONOCYTES (test code = 1011) 6.6 % EOSINOPHILS (test code = 1012) 0.2 % BASOPHILS (test code = 1013) 0.2 % IMMATURE GRANULOCYTES (test 0.5 % code = 1036) NUCLEATED RBCS (test code = 0.0 /100WBC'S 1065) PLATELET COUNT (test code = 369 K/UL 1015) ABSOLUTE NEUTROPHILS (test code 9.67 K/UL = 1066) ABSOLUTE LYMPHOCYTES (test code 2.37 K/UL = 1067) ABSOLUTE MONOCYTES (test code = 0.86 K/UL 1068) ABSOLUTE EOSINOPHILS (test code 0.03 K/UL = 1040) ABSOLUTE BASOPHILS (test code = 0.02 K/UL 1069) ABS IMMATURE GRANULOCYTES (test 0.07 K/UL code = 1020) ABS NUCLEATED RBCS (test code = 0.00 K/UL 73199) CBC W/AUTO [id number] 00:00:00 Test Item Value Reference Range Interpretation Comments WBC (test code = 1001) 13.0 K/UL RBC (test code = 1002) 4.88 M/UL HEMOGLOBIN (test code = 1003) 14.7 G/DL HEMATOCRIT (test code = 1004) 43.3 % MCV (test code = 1005) 88.7 fL MCH (test code = 1006) 30.1 PG MCHC (test code = 1007) 33.9 G/DL RDW (test code = 1038) 13.0 % NEUTROPHILS (test code = 1008) 74.3 % LYMPHOCYTES (test code = 1010) 18.2 % MONOCYTES (test code = 1011) 6.6 % EOSINOPHILS (test code = 1012) 0.2 % BASOPHILS (test code = 1013) 0.2 % IMMATURE GRANULOCYTES (test 0.5 % code = 1036) NUCLEATED RBCS (test code = 0.0 /100WBC'S 1065) PLATELET COUNT (test code = 369 K/UL 1015) ABSOLUTE NEUTROPHILS (test code 9.67 K/UL = 1066) ABSOLUTE LYMPHOCYTES (test code 2.37 K/UL = 1067) ABSOLUTE MONOCYTES (test code = 0.86 K/UL 1068) ABSOLUTE EOSINOPHILS (test code 0.03 K/UL = 1040) ABSOLUTE BASOPHILS (test code = 0.02 K/UL 1069) ABS IMMATURE GRANULOCYTES (test 0.07 K/UL code = 1020) ABS NUCLEATED RBCS (test code = 0.00 K/UL 65573) CBC W/AUTO [id number] 00:00:00 Test Item Value Reference Range Interpretation Comments WBC (test code = 1001) 13.0 K/UL RBC (test code = 1002) 4.88 M/UL HEMOGLOBIN (test code = 1003) 14.7 G/DL HEMATOCRIT (test code = 1004) 43.3 % MCV (test code = 1005) 88.7 fL MCH (test code = 1006) 30.1 PG MCHC (test code = 1007) 33.9 G/DL RDW (test code = 1038) 13.0 % NEUTROPHILS (test code = 1008) 74.3 % LYMPHOCYTES (test code = 1010) 18.2 % MONOCYTES (test code = 1011) 6.6 % EOSINOPHILS (test code = 1012) 0.2 % BASOPHILS (test code = 1013) 0.2 % IMMATURE GRANULOCYTES (test 0.5 % code = 1036) NUCLEATED RBCS (test code = 0.0 /100WBC'S 1065) PLATELET COUNT (test code = 369 K/UL 1015) ABSOLUTE NEUTROPHILS (test code 9.67 K/UL = 1066) ABSOLUTE LYMPHOCYTES (test code 2.37 K/UL = 1067) ABSOLUTE MONOCYTES (test code = 0.86 K/UL 1068) ABSOLUTE EOSINOPHILS (test code 0.03 K/UL = 1040) ABSOLUTE BASOPHILS (test code = 0.02 K/UL 1069) ABS IMMATURE GRANULOCYTES (test 0.07 K/UL code = 1020) ABS NUCLEATED RBCS (test code = 0.00 K/UL 81633) COMPREHENSIVE METABOLIC [id number] 00:00:00 Test Item Value Reference Range Interpretation Comments GLUCOSE (test code = 2217) 96 MG/DL BUN (test code = 2208) 21 MG/DL CREATININE (test code = 2214) 0.88 MG/DL eGFR (2020 CKD-EPI) (test code 78 ML/MIN/1.73 = 08791) CALC BUN/CREAT (test code = 24 RATIO 2235) SODIUM (test code = 2231) 138 MEQ/L POTASSIUM (test code = 2228) 4.2 MEQ/L CHLORIDE (test code = 2215) 101 MEQ/L CARBON DIOXIDE (test code = 28 MEQ/L 220) CALCIUM (test code = 2209) 11.2 MG/DL PROTEIN, TOTAL (test code = 6.6 G/DL 2228) ALBUMIN (test code = 2201) 4.2 G/DL CALC GLOBULIN (test code = 2.4 G/DL 2240) CALC A/G RATIO (test code = 1.8 RATIO 2234) BILIRUBIN, TOTAL (test code = 1.0 MG/DL 2206) ALKALINE PHOSPHATASE (test 102 U/L code = 2204) AST (test code = 2218) 31 U/L ALT (test code = 2219) 126 U/L COMPREHENSIVE METABOLIC [id number] 00:00:00 Test Item Value Reference Range Interpretation Comments GLUCOSE (test code = 2217) 96 MG/DL BUN (test code = 2208) 21 MG/DL CREATININE (test code = 2214) 0.88 MG/DL eGFR (2020 CKD-EPI) (test code 78 ML/MIN/1.73 = 51511) CALC BUN/CREAT (test code = 24 RATIO 2235) SODIUM (test code = 2231) 138 MEQ/L POTASSIUM (test code = 2228) 4.2 MEQ/L CHLORIDE (test code = 2215) 101 MEQ/L CARBON DIOXIDE (test code = 28 MEQ/L 2205) CALCIUM (test code = 2209) 11.2 MG/DL PROTEIN, TOTAL (test code = 6.6 G/DL 2228) ALBUMIN (test code = 2201) 4.2 G/DL CALC GLOBULIN (test code = 2.4 G/DL 2240) CALC A/G RATIO (test code = 1.8 RATIO 2234) BILIRUBIN, TOTAL (test code = 1.0 MG/DL 2206) ALKALINE PHOSPHATASE (test 102 U/L code = 2204) AST (test code = 2218) 31 U/L ALT (test code = 2219) 126 U/L HEMOGLOBIN [id number] 00:00:00 Test Item Value Reference Range Interpretation Comments HEMOGLOBIN A1c (test code = 05063) 5.6 % HEMOGLOBIN [id number] 00:00:00 Test Item Value Reference Range Interpretation Comments HEMOGLOBIN A1c (test code = 42928) 5.6 % HEMOGLOBIN [id number] 00:00:00 Test Item Value Reference Range Interpretation Comments HEMOGLOBIN A1c (test code = 22571) 5.6 % TROPONIN [id number] 12:00:06 Test Item Value Reference Interpretation Comments Range TROPONIN I (test 0.009 ng/mL See_Comment [Automated code = 3874660492) message] The system which generated this result [...] biotin. Lab Interpretation Normal (test code = 48946-4) [facility] (40461)2022-02-24 11:48:40 Test Item Value Reference Range Interpretation Comments NA (test code = 138 mmol/L 135-145 2133176682) K (test code = 4.9 mmol/L 3.5-5.0 4404021114) CL (test code = 104 mmol/L 98-108 9601247329) CO2 TOTAL (test code = 24 mmol/L 23-31 5369433125) AGAP (test code = 2-16 0110030946) BUN (test code = 15 mg/dL 7-23 8165727175) GLUCOSE (test code = 106 mg/dL 70-110 2977415178) CREATININE (test code = 0.75 mg/dL 0.50-1.04 8039299261) TOTAL BILI (test code = 0.8 mg/dL 0.1-1.7 1678399789) CALCIUM (test code = 10.7 mg/dL 8.6-10.6 H 4249828681) T PROTEIN (test code = 7.7 g/dL 6.3-8.2 0618740573) ALBUMIN (test code = 4.8 g/dL 3.5-5.0 2171777371) ALK PHOS (test code = 100 U/L 34-122 1785049413) ALTv (test code = 39 U/L 5-35 H 1742-6) AST(SGOT) (test code = 35 U/L 13-40 1310410251) eGFR (test code = mL/min/1.73m2 9407841790) OFELIA (test code = OFELIA) Association of [...] tests). Lab Interpretation Abnormal (test code = 47368-9) [facility]IP[facility], [id number] 11:48:25 Test Item Value Reference Range Interpretation Comments LIPASE (test code = 4257379798) 41 U/L 0-220 Lab Interpretation (test code = Normal 23878-3) [facility] [id number] 11:43:22 Test Item Value Reference Range Interpretation Comments APTT Patient (test See_Comment [Automat ed code = 3173-2) message] The system which generated this result transmitted reference range : 23 - 38 Seconds . The reference range was not used to interpr et this result as normal/abnormal . OFELIA (test code = OFELIA) The [facility] patient population mean normal value for aPTT is 30 seconds. Lab Interpretation Normal (test code = 37927-6) [facility] DallasPROTHROMBIN TIME / [id number] 11:41:21 Test Item Value Reference Range Interpretation [...] tions. Lab Interpretation (test Normal code = 38783-9) [facility] WITH [id number] 11:18:58 Test Item Value Reference Range Interpretation Comments WBC (test code = See_Comment [Automated 7190-2) message] The sy stem which generated this result transmitted reference range : 4.30 - 11.10 10*3/?L. The reference range was not used to interpret this result as normal/abnormal . RBC (test code = See_Comment [Automated 379-8) message] The sy stem which generated this [...] RDW-SD (test code = 45.1 fL 39.0-49.9 93711-5) RDW-CV (test code = 13.7 % 12.0-15.5 788-0) PLT (test code = See_Comment [Automated 777-3) message] The sy stem which generated this result transmitted reference range : 166 - 358 10*3/ ?L. The reference r emilee was not used to interpret this result as normal/abnormal . MPV (test code = 9.6 fL 9.5-12.9 89421-4) NRBC/100 WBC (test See_Comment [Automat ed code = 9690741777) message] The system which generated this result transmitted reference range : 0.0 - 10.0 /100 WBCs. The refer ence range was not u sed to interpret th is result as normal/abnormal . NRBC x10^3 (test code See_Comment [Auto mated = 4196881763) message] The s ystem which generated this result transmitted reference range : 10*3/?L. The reference range was not used to interpret this result as normal/abnormal . GRAN MAT (NEUT) % 76.3 % (test code = 770-8) IMM GRAN % (test code 0.40 % = 8219401774) LYMPH % (test code = 12.8 % 736-9) MONO % (test code = 9.2 % 5905-5) EOS % (test code = 0.7 % 713-8) BASO % (test code = 0.6 % 706-2) GRAN MAT x10^3(ANC) 5.48 10*3/uL 1.88-7.09 (test code = 2438674675) IMM GRAN x10^3 (test 0.03 10*3/uL 0.00-0.06 code = 9006378117) LYMPH x10^3 (test code 0.92 10*3/uL 1.32-3.29 L = 731-0) MONO x10^3 (test code 0.66 10*3/uL 0.33-0.92 = 742-7) EOS x10^3 (test code = 0.05 10*3/uL 0.03-0.39 711-2) BASO x10^3 (test code 0.04 10*3/uL 0.01-0.07 = 704-7) Lab Interpretation Abnormal (test code = 98350-6) [facility] TEST, THINPREP, [id number] 00:00:00 Test Item Value Reference Range Interpretation Comments SOURCE: (test code = 8001) Cervical/Endocervic al SLIDES: (test code = 8011) 1 LMP: (test code = 8021) SEE NOTE SPECIMEN ADEQUACY: (test (NOTE) code = 26968) INTERPRETATION: (test code LSIL/EPITH. = 10414) ABNORMALITY; SEE BELOW OTHER COMMENTS: (test code (NOTE) = 8081) AUDIENCE DEVELOPMENT MANAGER: (test Nazia Penah code = 8101) SwatiCT(ASCP)[facility] PATHOLOGIST INTERPRETATION Carmen Andrade BY: (test code = 8122) M.D. LOCATION: (test code = (NOTE) 70269) CPT: (test code = 8140) (NOTE) PAP TEST, THINPREP, [id number] 00:00:00 Test Item Value Reference Range Interpretation Comments SOURCE: (test code = 8001) Cervical/Endocervic al SLIDES: (test code = 8011) 1 LMP: (test code = 8021) SEE NOTE SPECIMEN ADEQUACY: (test (NOTE) code = 70974) INTERPRETATION: (test code LSIL/EPITH. = 84563) ABNORMALITY; SEE BELOW OTHER COMMENTS: (test code (NOTE) = 8081) AUDIENCE DEVELOPMENT MANAGER: (test Nazia Penah code = 8101) LongoriaCT(ASCP)[facility] PATHOLOGIST INTERPRETATION Carmen Andrade BY: (test code = 8122) M.D. LOCATION: (test code = (NOTE) 26094) CPT: (test code = 8140) (NOTE) PAP TEST, THINPREP, [id number] 00:00:00 Test Item Value Reference Range Interpretation Comments SOURCE: (test code = 8001) Cervical/Endocervic al SLIDES: (test code = 8011) 1 LMP: (test code = 8021) SEE NOTE SPECIMEN ADEQUACY: (test (NOTE) code = 35223) INTERPRETATION: (test code LSIL/EPITH. = 05982) ABNORMALITY; SEE BELOW OTHER COMMENTS: (test code (NOTE) = 8081) AUDIENCE DEVELOPMENT MANAGER: (test Nazia Gibson code = 8101) Longoria,CT(ASCP)[facility] PATHOLOGIST INTERPRETATION Carmen Andrade BY: (test code = 8122) M.D. LOCATION: (test code = (NOTE) 28555) CPT: (test code = 8140) (NOTE) PAP TEST, THINPREP, [id number] 00:00:00 Test Item Value Reference Range Interpretation Comments SOURCE: (test code = 8001) Cervical/Endocervic al SLIDES: (test code = 8011) 1 LMP: (test code = 8021) SEE NOTE SPECIMEN ADEQUACY: (test (NOTE) code = 85417) INTERPRETATION: (test code LSIL/EPITH. = 88504) ABNORMALITY; SEE BELOW OTHER COMMENTS: (test code (NOTE) = 8081) AUDIENCE DEVELOPMENT MANAGER: (test Nazia Gibson code = 8101) Longoria,CT(ASCP)[facility] PATHOLOGIST INTERPRETATION Carmen Andrade BY: (test code = 8122) M.D. LOCATION: (test code = (NOTE) 03350) CPT: (test code = 8140) (NOTE) PAP TEST, THINPREP, [id number] 00:00:00 Test Item Value Reference Range Interpretation Comments SOURCE: (test code = 8001) Cervical/Endocervic al SLIDES: (test code = 8011) 1 LMP: (test code = 8021) SEE NOTE SPECIMEN ADEQUACY: (test (NOTE) code = 57785) INTERPRETATION: (test code LSIL/EPITH. = 22099) ABNORMALITY; SEE BELOW OTHER COMMENTS: (test code (NOTE) = 8081) AUDIENCE DEVELOPMENT MANAGER: (test Nazia Gibson code = 8101) Longoria,CT(ASCP)[facility] PATHOLOGIST INTERPRETATION Carmen Andrade BY: (test code = 8122) M.D. LOCATION: (test code = (NOTE) 56869) CPT: (test code = 8140) (NOTE) PAP TEST, THINPREP, [id number] 00:00:00 Test Item Value Reference Range Interpretation Comments SOURCE: (test code = 8001) Cervical/Endocervic al SLIDES: (test code = 8011) 1 LMP: (test code = 8021) SEE NOTE SPECIMEN ADEQUACY: (test (NOTE) code = 17924) INTERPRETATION: (test code LSIL/EPITH. = 70970) ABNORMALITY; SEE BELOW OTHER COMMENTS: (test code (NOTE) = 8081) AUDIENCE DEVELOPMENT MANAGER: (test Nazia Gibson code = 8101) Longoria,CT(ASCP)IAC PATHOLOGIST INTERPRETATION [facility], BY: (test code = 8122) M.D. LOCATION: (test code = (NOTE) 74251) CPT: (test code = 8140) (NOTE) PAP TEST, THINPREP, [id number] 00:00:00 Test Item Value Reference Range Interpretation Comments SOURCE: (test code = 8001) Cervical/Endocervic al SLIDES: (test code = 8011) 1 LMP: (test code = 8021) SEE NOTE SPECIMEN ADEQUACY: (test (NOTE) code = 47077) INTERPRETATION: (test code LSIL/EPITH. = 54301) ABNORMALITY; SEE BELOW OTHER COMMENTS: (test code (NOTE) = 8081) AUDIENCE DEVELOPMENT MANAGER: (test Nazai Gibson code = 8101) Longoria,CT(ASCP)IAC PATHOLOGIST INTERPRETATION [facility], BY: (test code = 8122) M.D. LOCATION: (test code = (NOTE) 59587) CPT: (test code = 8140) (NOTE) PAP TEST, THINPREP, [id number] 00:00:00 Test Item Value Reference Range Interpretation Comments SOURCE: (test code = 8001) Cervical/Endocervic al SLIDES: (test code = 8011) 1 LMP: (test code = 8021) SEE NOTE SPECIMEN ADEQUACY: (test (NOTE) code = 11129) INTERPRETATION: (test code LSIL/EPITH. = 19907) ABNORMALITY; SEE BELOW OTHER COMMENTS: (test code (NOTE) = 8081) AUDIENCE DEVELOPMENT MANAGER: (test Nazia Gibson code = 8101) Longoria,CT(ASCP)IAC PATHOLOGIST INTERPRETATION Carmen Listrom, BY: (test code = 8122) M.D. LOCATION: (test code = (NOTE) 48161) CPT: (test code = 8140) (NOTE) PAP TEST, THINPREP, [id number] 00:00:00 Test Item Value Reference Range Interpretation Comments SOURCE: (test code = 8001) Cervical/Endocervic al SLIDES: (test code = 8011) 1 LMP: (test code = 8021) SEE NOTE SPECIMEN ADEQUACY: (test (NOTE) code = 23480) INTERPRETATION: (test code LSIL/EPITH. = 48609) ABNORMALITY; SEE BELOW OTHER COMMENTS: (test code (NOTE) = 8081) AUDIENCE DEVELOPMENT MANAGER: (test Nazia Gibson code = 8101) Longoria,CT(ASCP)IAC PATHOLOGIST INTERPRETATION Carmen Lupe, BY: (test code = 8122) M.D. LOCATION: (test code = (NOTE) 54183) CPT: (test code = 8140) (NOTE) PAP TEST, THINPREP, [id number] 00:00:00 Test Item Value Reference Range Interpretation Comments SOURCE: (test code = 8001) Cervical/Endocervic al SLIDES: (test code = 8011) 1 LMP: (test code = 8021) SEE NOTE SPECIMEN ADEQUACY: (test (NOTE) code = 83486) INTERPRETATION: (test code LSIL/EPITH. = 49766) ABNORMALITY; SEE BELOW OTHER COMMENTS: (test code (NOTE) = 8081) AUDIENCE DEVELOPMENT MANAGER: (test Nazia Gibson code = 8101) Longoria,CT(ASCP)IAC PATHOLOGIST INTERPRETATION Carmen Magdalenosulaiman BY: (test code = 8122) M.D. LOCATION: (test code = (NOTE) 50280) CPT: (test code = 8140) (NOTE) PAP TEST, THINPREP, [id number] 00:00:00 Test Item Value Reference Range Interpretation Comments SOURCE: (test code = 8001) Cervical/Endocervic al SLIDES: (test code = 8011) 1 LMP: (test code = 8021) SEE NOTE SPECIMEN ADEQUACY: (test (NOTE) code = 43095) INTERPRETATION: (test code LSIL/EPITH. = 54205) ABNORMALITY; SEE BELOW OTHER COMMENTS: (test code (NOTE) = 8081) AUDIENCE DEVELOPMENT MANAGER: (test Nazia Gibson code = 8101) Longoria,CT(ASCP)IAC PATHOLOGIST INTERPRETATION Carmen Andrade, BY: (test code = 8122) M.D. LOCATION: (test code = (NOTE) 03114) CPT: (test code = 8140) (NOTE) PAP TEST, THINPREP, [id number] 00:00:00 Test Item Value Reference Range Interpretation Comments SOURCE: (test code = 8001) Cervical/Endocervic al SLIDES: (test code = 8011) 1 LMP: (test code = 8021) SEE NOTE SPECIMEN ADEQUACY: (test (NOTE) code = 53168) INTERPRETATION: (test code LSIL/EPITH. = 86370) ABNORMALITY; SEE BELOW OTHER COMMENTS: (test code (NOTE) = 8081) AUDIENCE DEVELOPMENT MANAGER: (test Nazia Gibson code = 8101) Longoria,CT(ASCP)IAC PATHOLOGIST INTERPRETATION Carmen Andrade BY: (test code = 8122) M.D. LOCATION: (test code = (NOTE) 68973) CPT: (test code = 8140) (NOTE) PAP TEST, THINPREP, [id number] 00:00:00 Test Item Value Reference Range Interpretation Comments SOURCE: (test code = 8001) Cervical/Endocervic al SLIDES: (test code = 8011) 1 LMP: (test code = 8021) SEE NOTE SPECIMEN ADEQUACY: (test (NOTE) code = 44582) INTERPRETATION: (test code LSIL/EPITH. = 83884) ABNORMALITY; SEE BELOW OTHER COMMENTS: (test code (NOTE) = 8081) AUDIENCE DEVELOPMENT MANAGER: (test Nazia Gibson code = 8101) Longoria,CT(ASCP)IAC PATHOLOGIST INTERPRETATION Carmen Andrade BY: (test code = 8122) M.D. LOCATION: (test code = (NOTE) 57587) CPT: (test code = 8140) (NOTE) PAP TEST, THINPREP, [id number] 00:00:00 Test Item Value Reference Range Interpretation Comments SOURCE: (test code = 8001) Cervical/Endocervic al SLIDES: (test code = 8011) 1 LMP: (test code = 8021) SEE NOTE SPECIMEN ADEQUACY: (test (NOTE) code = 73067) INTERPRETATION: (test code LSIL/EPITH. = 63180) ABNORMALITY; SEE BELOW OTHER COMMENTS: (test code (NOTE) = 8081) AUDIENCE DEVELOPMENT MANAGER: (test Nazia Gibson code = 8101) Longoria,CT(ASCP)[facility] PATHOLOGIST INTERPRETATION Carmen Lupe BY: (test code = 8122) M.D. LOCATION: (test code = (NOTE) 51968) CPT: (test code = 8140) (NOTE) PAP TEST, THINPREP, [id number] 00:00:00 Test Item Value Reference Range Interpretation Comments SOURCE: (test code = 8001) Cervical/Endocervic al SLIDES: (test code = 8011) 1 LMP: (test code = 8021) SEE NOTE SPECIMEN ADEQUACY: (test (NOTE) code = 88332) INTERPRETATION: (test code LSIL/EPITH. = 71836) ABNORMALITY; SEE BELOW OTHER COMMENTS: (test code (NOTE) = 8081) AUDIENCE DEVELOPMENT MANAGER: (test Nazia Penah code = 8101) LIGIA Longoria(ASCP)[facility] PATHOLOGIST INTERPRETATION Carmen Lupe BY: (test code = 8122) M.D. LOCATION: (test code = (NOTE) 39383) CPT: (test code = 8140) (NOTE) PAP TEST, THINPREP, [id number] 00:00:00 Test Item Value Reference Range Interpretation Comments SOURCE: (test code = 8001) Cervical/Endocervic al SLIDES: (test code = 8011) 1 LMP: (test code = 8021) SEE NOTE SPECIMEN ADEQUACY: (test (NOTE) code = 81825) INTERPRETATION: (test code LSIL/EPITH. = 99443) ABNORMALITY; SEE BELOW OTHER COMMENTS: (test code (NOTE) = 8081) AUDIENCE DEVELOPMENT MANAGER: (test Nazia Penah code = 8101) LIGIA Longoria(ASCP)[facility] PATHOLOGIST [facility]: (test code = 8122) M.D. LOCATION: (test code = (NOTE) 85346) CPT: (test code = 8140) (NOTE) HPV HIGH RISK WITH GENOTYPE, [id number] 00:00:00 Test Item Value Reference Range Interpretation Comments HPV HIGH RISK INTERP (test code = POSITIVE 59094) HPV 16 (test code = 39298) NEGATIVE HPV 18 (test code = 20756) NEGATIVE HPV, HR, OTHER GENOTYPES (test code POSITIVE = 72292) HPV HIGH RISK WITH GENOTYPE, [id number] 00:00:00 Test Item Value Reference Range Interpretation Comments HPV HIGH RISK INTERP (test code = POSITIVE 61925) HPV 16 (test code = 92371) NEGATIVE HPV 18 (test code = 86766) NEGATIVE HPV, HR, OTHER GENOTYPES (test code POSITIVE = 71392) HPV HIGH RISK WITH GENOTYPE, [id number] 00:00:00 Test Item Value Reference Range Interpretation Comments HPV HIGH RISK INTERP (test code = POSITIVE 20968) HPV 16 (test code = 86138) NEGATIVE HPV 18 (test code = 85243) NEGATIVE HPV, HR, OTHER GENOTYPES (test code POSITIVE = 77717) HPV HIGH RISK WITH GENOTYPE, [id number] 00:00:00 Test Item Value Reference Range Interpretation Comments HPV HIGH RISK INTERP (test code = POSITIVE 24578) HPV 16 (test code = 12288) NEGATIVE HPV 18 (test code = 18098) NEGATIVE HPV, HR, OTHER GENOTYPES (test code POSITIVE = 94514) HPV HIGH RISK WITH GENOTYPE, [id number] 00:00:00 Test Item Value Reference Range Interpretation Comments HPV HIGH RISK INTERP (test code = POSITIVE 45981) HPV 16 (test code = 06269) NEGATIVE HPV 18 (test code = 45551) NEGATIVE HPV, HR, OTHER GENOTYPES (test code POSITIVE = 13799) HPV HIGH RISK WITH GENOTYPE, [id number] 00:00:00 Test Item Value Reference Range Interpretation Comments HPV HIGH RISK INTERP (test code = POSITIVE 36243) HPV 16 (test code = 71488) NEGATIVE HPV 18 (test code = 52859) NEGATIVE HPV, HR, OTHER GENOTYPES (test code POSITIVE = 99815) HPV HIGH RISK WITH GENOTYPE, [id number] 00:00:00 Test Item Value Reference Range Interpretation Comments HPV HIGH RISK INTERP (test code = POSITIVE 17635) HPV 16 (test code = 72687) NEGATIVE HPV 18 (test code = 29756) NEGATIVE HPV, HR, OTHER GENOTYPES (test code POSITIVE = 71655) HPV HIGH RISK WITH GENOTYPE, [id number] 00:00:00 Test Item Value Reference Range Interpretation Comments HPV HIGH RISK INTERP (test code = POSITIVE 09207) HPV 16 (test code = 02366) NEGATIVE HPV 18 (test code = 14426) NEGATIVE HPV, HR, OTHER GENOTYPES (test code POSITIVE = 55682) HPV HIGH RISK WITH GENOTYPE, [id number] 00:00:00 Test Item Value Reference Range Interpretation Comments HPV HIGH RISK INTERP (test code = POSITIVE 91080) HPV 16 (test code = 34512) NEGATIVE HPV 18 (test code = 20957) NEGATIVE HPV, HR, OTHER GENOTYPES (test code POSITIVE = 81520) HPV HIGH RISK WITH GENOTYPE, [id number] 00:00:00 Test Item Value Reference Range Interpretation Comments HPV HIGH RISK INTERP (test code = POSITIVE 55228) HPV 16 (test code = 73002) NEGATIVE HPV 18 (test code = 58419) NEGATIVE HPV, HR, OTHER GENOTYPES (test code POSITIVE = 93536) HPV HIGH RISK WITH GENOTYPE, [id number] 00:00:00 Test Item Value Reference Range Interpretation Comments HPV HIGH RISK INTERP (test code = POSITIVE 03793) HPV 16 (test code = 68238) NEGATIVE HPV 18 (test code = 39099) NEGATIVE HPV, HR, OTHER GENOTYPES (test code POSITIVE = 30839) HPV HIGH RISK WITH GENOTYPE, [id number] 00:00:00 Test Item Value Reference Range Interpretation Comments HPV HIGH RISK INTERP (test code = POSITIVE 00899) HPV 16 (test code = 08623) NEGATIVE HPV 18 (test code = 72622) NEGATIVE HPV, HR, OTHER GENOTYPES (test code POSITIVE = 83710) HPV HIGH RISK WITH GENOTYPE, [id number] 00:00:00 Test Item Value Reference Range Interpretation Comments HPV HIGH RISK INTERP (test code = POSITIVE 84046) HPV 16 (test code = 27051) NEGATIVE HPV 18 (test code = 94941) NEGATIVE HPV, HR, OTHER GENOTYPES (test code POSITIVE = 51741) HPV HIGH RISK WITH GENOTYPE, [id number] 00:00:00 Test Item Value Reference Range Interpretation Comments HPV HIGH RISK INTERP (test code = POSITIVE 71330) HPV 16 (test code = 55635) NEGATIVE HPV 18 (test code = 22442) NEGATIVE HPV, HR, OTHER GENOTYPES (test code POSITIVE = 24733) HPV HIGH RISK WITH GENOTYPE, [id number] 00:00:00 Test Item Value Reference Range Interpretation Comments HPV HIGH RISK INTERP (test code = POSITIVE 62966) HPV 16 (test code = 70584) NEGATIVE HPV 18 (test code = 13997) NEGATIVE HPV, HR, OTHER GENOTYPES (test code POSITIVE = 93354) HPV HIGH RISK WITH GENOTYPE, [id number] 00:00:00 Test Item Value Reference Range Interpretation Comments HPV HIGH RISK INTERP (test code = POSITIVE 38225) HPV 16 (test code = 65148) NEGATIVE HPV 18 (test code = 94582) NEGATIVE HPV, HR, OTHER GENOTYPES (test code POSITIVE = 24074) N-TERMINAL [id number] 11:32:35 Test Item Value Reference Range Interpretation Comments NT-proBNP (test code 422 pg/mL See_Comment H [Autom ated = 4337681825) message] The system which generated this result transmitted reference range : <=125. The reference range was not used to interpret this result as normal/abnormal . OFELIA (test code = OFELIA) Biotin has been reported to cause a negative bias, interpret results relative to patient's use of biotin. Lab Interpretation Abnormal (test code = 69775-3) [facility] [id number] 10:51:52 Test Item Value Reference Interpretation Comments Range TROPONIN I (test 0.011 ng/mL See_Comment [Automated code = 3201464145) message] The system which generated this result [...] biotin. Lab Interpretation Normal (test code = 32455-2) [facility]. METABOLIC PANEL (15529)2022-01-15 10:40:31 Test Item Value Reference Range Interpretation Comments NA (test code = 140 mmol/L 135-145 3320018748) K (test code = 3.7 mmol/L 3.5-5 9909655730) CL (test code = 107 mmol/L 98-108 9828785192) CO2 TOTAL (test code = 23 mmol/L 23-31 9558201943) AGAP (test code = 2-16 0465974787) BUN (test code = 11 mg/dL 7-23 4462065663) GLUCOSE (test code = 146 mg/dL 70-110 H 5676879947) CREATININE (test code = 0.65 mg/dL 0.5-1.04 6683738066) TOTAL BILI (test code = 0.7 mg/dL 0.1-1.5 4267889450) CALCIUM (test code = 10.6 mg/dL 8.6-10.6 4821796783) T PROTEIN (test code = 6.5 g/dL 6.3-8.2 5155497581) ALBUMIN (test code = 4.2 g/dL 3.5-5 3507332454) ALK PHOS (test code = 95 U/L 34-122 5377764732) ALTv (test code = 51 U/L 5-35 H 1742-6) AST(SGOT) (test code = 34 U/L 13-40 5049507068) eGFR (test code = mL/min/1.73m2 3811214844) OFELIA (test code = OFELIA) Association of [...] tests). Lab Interpretation Abnormal (test code = 15470-8) [facility] [place], [id number] 10:39:50 Test Item Value Reference Range Interpretation Comments LIPASE (test code = 8835172079) 35 U/L 0-220 Lab Interpretation (test code = Normal 91799-7) [facility] [place]2022-10-17 10:32:27 Test Item Value Reference Range Interpretation Comments APTT Patient (test See_Comment [Automat ed code = 3173-2) message] The system which generated this result transmitted reference range : 23 - 38 Seconds . The reference range was not used to interpr et this result as normal/abnormal . OFELIA (test code = OFELIA) The [facility] patient population mean normal value for aPTT is 30 seconds. Lab Interpretation Normal (test code = 48031-6) [facility] [place]PROTHROMBIN TIME / [id number] 10:30:30 Test Item Value Reference Range Interpretation Comments PROTIME PATIENT (test See_Comment [Auto mated message] code = 5964-2) The system [facility] generated this result transmitted ref erence range: 12.0 - 1 4.7 Seconds. The re ference range was not u sed to interpret this result as normal/abnor mal. INR (test code = 6301-6) Nor mal INR <1.1; Warfarin Therap eutic range 2.0 to 3. 0 or 2.5 to 3.5, dep ending upon the indica tions. Lab Interpretation (test Normal code = 37961-4) [facility] [place]CBC WITH [id number] 10:12:46 Test Item Value Reference Range Interpretation Comments WBC (test code = See_Comment [Automated message] 6690-2) The system ic h generated this result transmitted ref erence range: 4.30 - 1 1.10 10*3/?L. The re ference range was not u sed to interpret this result as normal/abnor mal. RBC (test code = See_Comment [Automated message] 789-8) The system [employer] generated this result transmitted ref erence range: [...] RDW-SD (test code 42.5 fL 39-49.9 = 47926-2) RDW-CV (test code 12.9 % 12-15.5 = 788-0) PLT (test code = See_Comment [Automated message] 777-3) The system [employer] generated this result transmitted ref erence range: 166 - 35 8 10*3/?L. The re ference range was not u sed to interpret this result as normal/abnor mal. MPV (test code = 9.6 fL 9.5-12.9 00622-3) NRBC/100 WBC (test See_Comment [Automat ed message] code = 1741877294) The syste m which generated this result transmitted ref erence range: 0.0 - 10 .0 /100 WBCs. The refer ence range was not u sed to interpret this result as normal/abnor mal. NRBC x10^3 (test See_Comment [Automated message] code = 4503554727) The syste m which generated this result transmitted ref erence range: 10*3/?L. The reference range was not used to interpr et this result as normal/abnormal . GRAN MAT (NEUT) % 62.1 % (test code = 770-8) IMM GRAN % (test 0.30 % code = 6711393900) LYMPH % (test code 28.9 % = 736-9) MONO % (test code 5.8 % = 5905-5) EOS % (test code = 2.3 % 713-8) BASO % (test code 0.6 % = 706-2) GRAN MAT 4.27 10*3/uL 1.88-7.09 x10^3(ANC) (test code = 8505184524) IMM GRAN x10^3 0-0.06 (test code = 1216061964) LYMPH x10^3 (test 1.99 10*3/uL 1.32-3.29 code = 731-0) MONO x10^3 (test 0.40 10*3/uL 0.33-0.92 code = 742-7) EOS x10^3 (test 0.16 10*3/uL 0.03-0.39 code = 711-2) BASO x10^3 (test 0.04 10*3/uL 0.01-0.07 code = 704-7) [facility] PYLORI (BREATH)2022-01-03 15:07:57 Test Item Value Reference Range Interpretation Comments H. PYLORI (BREATH) NEGATIVE NEGATIVE UNLESS O THERWISE (test code = 47074) INDICATE D, ALL TESTING PERFORMED [facility] [employer] [address] [place] [address] DIRECTOR: TANNER VELASQUEZ M.D. CLIA NUMBER [id number] CAP ACCREDITATION N O. [id number] ALTMAN (Sm) [id number] 05:38:15 Test Item Value Reference Range Interpretation Comments ALTMAN (Sm) ANTIBODY (test code = <0.2 AI <1.0 49536) SCL-70 [id number] 05:38:15 Test Item Value Reference Range Interpretation Comments SCL-70 ANTIBODY (test code = 4606) <0.2 AI <1.0 SJOGREN'S SS-A AND SS-B [id number] 05:38:15 Test Item Value Reference Range Interpretation Comments SJOGREN'S SS-A <0.2 AI <1.0 ANTIBODY (test code = 32750) SJOGREN'S SS-B <0.2 AI <1.0 UNLESS OTHER ROTH ANTIBODY (test code = INDICA ALEX, ALL TESTING 49465) PERFORMED [employer] [address] [place] [address] [facility] DIRECTOR: TANNER VELASQUEZ M.D. CLIA NUMBER [id number] [facility] ACCREDITATION N O. [id number] ALTMAN (Sm) [id number] 00:00:00 Test Item Value Reference Range Interpretation Comments ALTMAN (Sm) ANTIBODY (test code = <0.2 AI 80996) ALTMAN (Sm) [id number] 00:00:00 Test Item Value Reference Range Interpretation Comments ALTMAN (Sm) ANTIBODY (test code = <0.2 AI 20264) H. PYLORI (BREATH)2022-01-03 00:00:00 Test Item Value Reference Range Interpretation Comments H. PYLORI (BREATH) (test code = NEGATIVE 17548) H. PYLORI (BREATH)2022-01-03 00:00:00 Test Item Value Reference Range Interpretation Comments H. PYLORI (BREATH) (test code = NEGATIVE 22085) SCL-70 [id number] 00:00:00 Test Item Value Reference Range Interpretation Comments SCL-70 ANTIBODY (test code = 4606) <0.2 AI SCL-70 [id number] 00:00:00 Test Item Value Reference Range Interpretation Comments SCL-70 ANTIBODY (test code = 4606) <0.2 AI SCL-70 [id number] 00:00:00 Test Item Value Reference Range Interpretation Comments SCL-70 ANTIBODY (test code = 4606) <0.2 AI [id number] 00:00:00 Test Item Value Reference Range Interpretation Comments SJOGREN'S SS-A ANTIBODY (test code = <0.2 AI 20172) SJOGREN'S SS-B ANTIBODY (test code = <0.2 AI 77513) [id number] 00:00:00 Test Item Value Reference Range Interpretation Comments SJOGREN'S SS-A ANTIBODY (test code = <0.2 AI 62960) SJOGREN'S SS-B ANTIBODY (test code = <0.2 AI 55267) H. PYLORI (BREATH)2022-01-03 00:00:00 Test Item Value Reference Range Interpretation Comments H. PYLORI (BREATH) (test code = NEGATIVE 80306) H. PYLORI (BREATH)2022-01-03 00:00:00 Test Item Value Reference Range Interpretation Comments H. PYLORI (BREATH) (test code = NEGATIVE 05629) ALTMAN (Sm) [id number] 00:00:00 Test Item Value Reference Range Interpretation Comments ALTMAN (Sm) ANTIBODY (test code = <0.2 AI 05636) ALTMAN (Sm) [id number] 00:00:00 Test Item Value Reference Range Interpretation Comments ALTMAN (Sm) ANTIBODY (test code = <0.2 AI 32396) SCL-70 [id number] 00:00:00 Test Item Value Reference Range Interpretation Comments SCL-70 ANTIBODY (test code = 4606) <0.2 AI SCL-70 [id number] 00:00:00 Test Item Value Reference Range Interpretation Comments SCL-70 ANTIBODY (test code = 4606) <0.2 AI SCL-70 [id number] 00:00:00 Test Item Value Reference Range Interpretation Comments SCL-70 ANTIBODY (test code = 4606) <0.2 AI [id number] 00:00:00 Test Item Value Reference Range Interpretation Comments SJOGREN'S SS-A ANTIBODY (test code = <0.2 AI 88631) SJOGREN'S SS-B ANTIBODY (test code = <0.2 AI 16114) [id number] 00:00:00 Test Item Value Reference Range Interpretation Comments SJOGREN'S SS-A ANTIBODY (test code = <0.2 AI 16907) SJOGREN'S SS-B ANTIBODY (test code = <0.2 AI 97265) H. PYLORI (BREATH)2022-01-03 00:00:00 Test Item Value Reference Range Interpretation Comments H. PYLORI (BREATH) (test code = NEGATIVE 20493) H. PYLORI (BREATH)2022-01-03 00:00:00 Test Item Value Reference Range Interpretation Comments H. PYLORI (BREATH) (test code = NEGATIVE 38477) ALTMAN (Sm) [id number] 00:00:00 Test Item Value Reference Range Interpretation Comments ALTMAN (Sm) ANTIBODY (test code = <0.2 AI 28537) ALTMAN (Sm) [id number] 00:00:00 Test Item Value Reference Range Interpretation Comments ALTMAN (Sm) ANTIBODY (test code = <0.2 AI 63144) SCL-70 [id number] 00:00:00 Test Item Value Reference Range Interpretation Comments SCL-70 ANTIBODY (test code = 4606) <0.2 AI SCL-70 [id number] 00:00:00 Test Item Value Reference Range Interpretation Comments SCL-70 ANTIBODY (test code = 4606) <0.2 AI SCL-70 [id number] 00:00:00 Test Item Value Reference Range Interpretation Comments SCL-70 ANTIBODY (test code = 4606) <0.2 AI [id number] 00:00:00 Test Item Value Reference Range Interpretation Comments SJOGREN'S SS-A ANTIBODY (test code = <0.2 AI 32501) SJOGREN'S SS-B ANTIBODY (test code = <0.2 AI 45395) [id number] 00:00:00 Test Item Value Reference Range Interpretation Comments SJOGREN'S SS-A ANTIBODY (test code = <0.2 AI 85256) SJOGREN'S SS-B ANTIBODY (test code = <0.2 AI 90480) ALTMAN (Sm) [id number] 00:00:00 Test Item Value Reference Range Interpretation Comments ALTMAN (Sm) ANTIBODY (test code = <0.2 AI 51317) ALTMAN (Sm) [id number] 00:00:00 Test Item Value Reference Range Interpretation Comments ALTMAN (Sm) ANTIBODY (test code = <0.2 AI 68230) H. PYLORI (BREATH)2022-01-03 00:00:00 Test Item Value Reference Range Interpretation Comments H. PYLORI (BREATH) (test code = NEGATIVE 33528) H. PYLORI (BREATH)2022-01-03 00:00:00 Test Item Value Reference Range Interpretation Comments H. PYLORI (BREATH) (test code = NEGATIVE 80892) SCL-70 [id number] 00:00:00 Test Item Value Reference Range Interpretation Comments SCL-70 ANTIBODY (test code = 4606) <0.2 AI SCL-70 [id number] 00:00:00 Test Item Value Reference Range Interpretation Comments SCL-70 ANTIBODY (test code = 4606) <0.2 AI SCL-70 [id number] 00:00:00 Test Item Value Reference Range Interpretation Comments SCL-70 ANTIBODY (test code = 4606) <0.2 AI [id number] 00:00:00 Test Item Value Reference Range Interpretation Comments SJOGREN'S SS-A ANTIBODY (test code = <0.2 AI 88428) SJOGREN'S SS-B ANTIBODY (test code = <0.2 AI 16493) [id number] 00:00:00 Test Item Value Reference Range Interpretation Comments SJOGREN'S SS-A ANTIBODY (test code = <0.2 AI 05400) SJOGREN'S SS-B ANTIBODY (test code = <0.2 AI 58305) H. PYLORI (BREATH)2022-01-03 00:00:00 Test Item Value Reference Range Interpretation Comments H. PYLORI (BREATH) (test code = NEGATIVE 49890) H. PYLORI (BREATH)2022-01-03 00:00:00 Test Item Value Reference Range Interpretation Comments H. PYLORI (BREATH) (test code = NEGATIVE 79276) ALTMAN (Sm) [id number] 00:00:00 Test Item Value Reference Range Interpretation Comments ALTMAN (Sm) ANTIBODY (test code = <0.2 AI 47505) ALTMAN (Sm) [id number] 00:00:00 Test Item Value Reference Range Interpretation Comments ALTMAN (Sm) ANTIBODY (test code = <0.2 AI 61017) SCL-70 [id number] 00:00:00 Test Item Value Reference Range Interpretation Comments SCL-70 ANTIBODY (test code = 4606) <0.2 AI SCL-70 [id number] 00:00:00 Test Item Value Reference Range Interpretation Comments SCL-70 ANTIBODY (test code = 4606) <0.2 AI SCL-70 [id number] 00:00:00 Test Item Value Reference Range Interpretation Comments SCL-70 ANTIBODY (test code = 4606) <0.2 AI [id number] 00:00:00 Test Item Value Reference Range Interpretation Comments SJOGREN'S SS-A ANTIBODY (test code = <0.2 AI 10505) SJOGREN'S SS-B ANTIBODY (test code = <0.2 AI 39985) [id number] 00:00:00 Test Item Value Reference Range Interpretation Comments SJOGREN'S SS-A ANTIBODY (test code = <0.2 AI 45397) SJOGREN'S SS-B ANTIBODY (test code = <0.2 AI 09065) ALTMAN (Sm) [id number] 00:00:00 Test Item Value Reference Range Interpretation Comments ALTMAN (Sm) ANTIBODY (test code = <0.2 AI 76030) ALTMAN (Sm) [id number] 00:00:00 Test Item Value Reference Range Interpretation Comments ALTMAN (Sm) ANTIBODY (test code = <0.2 AI 51899) H. PYLORI (BREATH)2022-01-03 00:00:00 Test Item Value Reference Range Interpretation Comments H. PYLORI (BREATH) (test code = NEGATIVE 49178) H. PYLORI (BREATH)2022-01-03 00:00:00 Test Item Value Reference Range Interpretation Comments H. PYLORI (BREATH) (test code = NEGATIVE 92255) SCL-70 [id number] 00:00:00 Test Item Value Reference Range Interpretation Comments SCL-70 ANTIBODY (test code = 4606) <0.2 AI SCL-70 [id number] 00:00:00 Test Item Value Reference Range Interpretation Comments SCL-70 ANTIBODY (test code = 4606) <0.2 AI SCL-70 [id number] 00:00:00 Test Item Value Reference Range Interpretation Comments SCL-70 ANTIBODY (test code = 4606) <0.2 AI [id number] 00:00:00 Test Item Value Reference Range Interpretation Comments SJOGREN'S SS-A ANTIBODY (test code = <0.2 AI 17738) SJOGREN'S SS-B ANTIBODY (test code = <0.2 AI 01851) [id number] 00:00:00 Test Item Value Reference Range Interpretation Comments SJOGREN'S SS-A ANTIBODY (test code = <0.2 AI 67207) SJOGREN'S SS-B ANTIBODY (test code = <0.2 AI 46329) H. PYLORI (BREATH)2022-01-03 00:00:00 Test Item Value Reference Range Interpretation Comments H. PYLORI (BREATH) (test code = NEGATIVE 37853) H. PYLORI (BREATH)2022-01-03 00:00:00 Test Item Value Reference Range Interpretation Comments H. PYLORI (BREATH) (test code = NEGATIVE 85374) ALTMAN (Sm) [id number] 00:00:00 Test Item Value Reference Range Interpretation Comments ALTMAN (Sm) ANTIBODY (test code = <0.2 AI 38523) ALTMAN (Sm) [id number] 00:00:00 Test Item Value Reference Range Interpretation Comments ALTMAN (Sm) ANTIBODY (test code = <0.2 AI 53583) SCL-70 [id number] 00:00:00 Test Item Value Reference Range Interpretation Comments SCL-70 ANTIBODY (test code = 4606) <0.2 AI SCL-70 [id number] 00:00:00 Test Item Value Reference Range Interpretation Comments SCL-70 ANTIBODY (test code = 4606) <0.2 AI SCL-70 [id number] 00:00:00 Test Item Value Reference Range Interpretation Comments SCL-70 ANTIBODY (test code = 4606) <0.2 AI [id number] 00:00:00 Test Item Value Reference Range Interpretation Comments SJOGREN'S SS-A ANTIBODY (test code = <0.2 AI 21322) SJOGREN'S SS-B ANTIBODY (test code = <0.2 AI 89066) [id number] 00:00:00 Test Item Value Reference Range Interpretation Comments SJOGREN'S SS-A ANTIBODY (test code = <0.2 AI 31806) SJOGREN'S SS-B ANTIBODY (test code = <0.2 AI 91856) H. PYLORI (BREATH)2022-01-03 00:00:00 Test Item Value Reference Range Interpretation Comments H. PYLORI (BREATH) (test code = NEGATIVE 83312) H. PYLORI (BREATH)2022-01-03 00:00:00 Test Item Value Reference Range Interpretation Comments H. PYLORI (BREATH) (test code = NEGATIVE 30585) ALTMAN (Sm) [id number] 00:00:00 Test Item Value Reference Range Interpretation Comments ALTMAN (Sm) ANTIBODY (test code = <0.2 AI 00161) ALTMAN (Sm) [id number] 00:00:00 Test Item Value Reference Range Interpretation Comments ALTMAN (Sm) ANTIBODY (test code = <0.2 AI 84104) SCL-70 [id number] 00:00:00 Test Item Value Reference Range Interpretation Comments SCL-70 ANTIBODY (test code = 4606) <0.2 AI SCL-70 [id number] 00:00:00 Test Item Value Reference Range Interpretation Comments SCL-70 ANTIBODY (test code = 4606) <0.2 AI SCL-70 [id number] 00:00:00 Test Item Value Reference Range Interpretation Comments SCL-70 ANTIBODY (test code = 4606) <0.2 AI [id number] 00:00:00 Test Item Value Reference Range Interpretation Comments SJOGREN'S SS-A ANTIBODY (test code = <0.2 AI 50192) SJOGREN'S SS-B ANTIBODY (test code = <0.2 AI 82315) [id number] 00:00:00 Test Item Value Reference Range Interpretation Comments SJOGREN'S SS-A ANTIBODY (test code = <0.2 AI 12141) SJOGREN'S SS-B ANTIBODY (test code = <0.2 AI 65385) ALTMAN (Sm) [id number] 00:00:00 Test Item Value Reference Range Interpretation Comments ALTMAN (Sm) ANTIBODY (test code = <0.2 AI 29439) ALTMAN (Sm) [id number] 00:00:00 Test Item Value Reference Range Interpretation Comments ALTMAN (Sm) ANTIBODY (test code = <0.2 AI 94019) H. PYLORI (BREATH)2022-01-03 00:00:00 Test Item Value Reference Range Interpretation Comments H. PYLORI (BREATH) (test code = NEGATIVE 91089) H. PYLORI (BREATH)2022-01-03 00:00:00 Test Item Value Reference Range Interpretation Comments H. PYLORI (BREATH) (test code = NEGATIVE 43153) SCL-70 [id number] 00:00:00 Test Item Value Reference Range Interpretation Comments SCL-70 ANTIBODY (test code = 4606) <0.2 AI SCL-70 [id number] 00:00:00 Test Item Value Reference Range Interpretation Comments SCL-70 ANTIBODY (test code = 4606) <0.2 AI SCL-70 [id number] 00:00:00 Test Item Value Reference Range Interpretation Comments SCL-70 ANTIBODY (test code = 4606) <0.2 AI [id number] 00:00:00 Test Item Value Reference Range Interpretation Comments SJOGREN'S SS-A ANTIBODY (test code = <0.2 AI 12722) SJOGREN'S SS-B ANTIBODY (test code = <0.2 AI 80581) [id number] 00:00:00 Test Item Value Reference Range Interpretation Comments SJOGREN'S SS-A ANTIBODY (test code = <0.2 AI 59721) SJOGREN'S SS-B ANTIBODY (test code = <0.2 AI 56066) H. PYLORI (BREATH)2022-01-03 00:00:00 Test Item Value Reference Range Interpretation Comments H. PYLORI (BREATH) (test code = NEGATIVE 52826) H. PYLORI (BREATH)2022-01-03 00:00:00 Test Item Value Reference Range Interpretation Comments H. PYLORI (BREATH) (test code = NEGATIVE 23606) ALTMAN (Sm) [id number] 00:00:00 Test Item Value Reference Range Interpretation Comments ALTMAN (Sm) ANTIBODY (test code = <0.2 AI 32466) ALTMAN (Sm) [id number] 00:00:00 Test Item Value Reference Range Interpretation Comments ALTMAN (Sm) ANTIBODY (test code = <0.2 AI 43659) SCL-70 [id number] 00:00:00 Test Item Value Reference Range Interpretation Comments SCL-70 ANTIBODY (test code = 4606) <0.2 AI SCL-70 [id number] 00:00:00 Test Item Value Reference Range Interpretation Comments SCL-70 ANTIBODY (test code = 4606) <0.2 AI SCL-70 [id number] 00:00:00 Test Item Value Reference Range Interpretation Comments SCL-70 ANTIBODY (test code = 4606) <0.2 AI [id number] 00:00:00 Test Item Value Reference Range Interpretation Comments SJOGREN'S SS-A ANTIBODY (test code = <0.2 AI 20212) SJOGREN'S SS-B ANTIBODY (test code = <0.2 AI 69116) [id number] 00:00:00 Test Item Value Reference Range Interpretation Comments SJOGREN'S SS-A ANTIBODY (test code = <0.2 AI 55949) SJOGREN'S SS-B ANTIBODY (test code = <0.2 AI 46936) KATHRYN (ANTI-NUCLEAR AB) WITH REFLEX [id number] 04:07:31 Test Item Value Reference Range Interpretation Comments ANTI-NUCLEAR POSITIVE NEGATIVE A ANTIBODIES (test code = 3506) KATHRYN PATTERN SEE BELOW (REPORTED TITER) (test code = 64853) HOMOGENEOUS (test NEGATIVE TITER NEGATIVE code = 84493) SPECKLED (test 1:160 TITER NEGATIVE H code = 717543) DENSE FINE NEGATIVE TITER NEGATIVE SPECKLED (test code = 78268) CENTROMERE (test NEGATIVE TITER NEGATIVE code = 567453) COARSE SPECKLED NEGATIVE TITER NEGATIVE (test code = 214268) DISCRETE NUCLEAR NEGATIVE TITER NEGATIVE DOTS (test code = 015567) NUCLEOLAR (test NEGATIVE TITER NEGATIVE code = 061632) NUCLEAR MEMBRANE NEGATIVE TITER NEGATIVE (test code = 430205) CYTO. RETICULAR NEGATIVE NEGATIVE (ANEESH) (test code = 766329) COMMENTS (test NONE code = 381702) METHOD (test code (NOTE) NOTE: EFF ECTIVE = 03614) 11/06/2021, MET HOD IS TRANSITIONED TO THE [employer] S NOVA VIEW IFA PLATFO RM. THE METHOD INCLUDES A SCREENTHRESHOLD OF 1:80, DIGITIZED AND COMPUTER ALGORITHM-NOLBERTO TEDINTE RPRETATION OF T ITERS AND DIGITAL PAT TERNS, AND HEp-2 CELLL INE SUBSTRATE. GUS TIONAL UNUSUAL PATTERN S WILL BE GIVEN ASCOMM ENTS. FOR MORE INFORM ATION, SEE [email or web address] KATHRYN (ANTI-NUCLEAR AB) WITH REFLEX [id number] 00:00:00 Test Item Value Reference Range Interpretation Comments ANTI-NUCLEAR ANTIBODIES (test POSITIVE code = 3506) KATHRYN PATTERN (REPORTED SEE BELOW TITER) (test code = 31003) HOMOGENEOUS (test code = NEGATIVE TITER 96374) SPECKLED (test code = 409687) 1:160 TITER DENSE FINE SPECKLED (test code NEGATIVE TITER = 23271) CENTROMERE (test code = NEGATIVE TITER 257984) COARSE SPECKLED (test code = NEGATIVE TITER 042195) DISCRETE NUCLEAR DOTS (test NEGATIVE TITER code = 744120) NUCLEOLAR (test code = 222019) NEGATIVE TITER NUCLEAR MEMBRANE (test code = NEGATIVE TITER 770360) CYTO. RETICULAR (ANEESH) (test NEGATIVE code = 055725) COMMENTS (test code = 690603) NONE METHOD (test code = 25962) (NOTE) KATHRYN (ANTI-NUCLEAR AB) WITH REFLEX [id number] 00:00:00 Test Item Value Reference Range Interpretation Comments ANTI-NUCLEAR ANTIBODIES (test POSITIVE code = 3506) KATHRYN PATTERN (REPORTED SEE BELOW TITER) (test code = 01978) HOMOGENEOUS (test code = NEGATIVE TITER 77337) SPECKLED (test code = 725454) 1:160 TITER DENSE FINE SPECKLED (test code NEGATIVE TITER = 73042) CENTROMERE (test code = NEGATIVE TITER 313720) COARSE SPECKLED (test code = NEGATIVE TITER 704806) DISCRETE NUCLEAR DOTS (test NEGATIVE TITER code = 864250) NUCLEOLAR (test code = 449822) NEGATIVE TITER NUCLEAR MEMBRANE (test code = NEGATIVE TITER 929300) CYTO. RETICULAR (ANEESH) (test NEGATIVE code = 718281) COMMENTS (test code = 394724) NONE METHOD (test code = 80685) (NOTE) KATHRYN (ANTI-NUCLEAR AB) WITH REFLEX [id number] 00:00:00 Test Item Value Reference Range Interpretation Comments ANTI-NUCLEAR ANTIBODIES (test POSITIVE code = 3506) KATHRYN PATTERN (REPORTED SEE BELOW TITER) (test code = 22146) HOMOGENEOUS (test code = NEGATIVE TITER 13194) SPECKLED (test code = 902560) 1:160 TITER DENSE FINE SPECKLED (test code NEGATIVE TITER = 62477) CENTROMERE (test code = NEGATIVE TITER 901155) COARSE SPECKLED (test code = NEGATIVE TITER 256195) DISCRETE NUCLEAR DOTS (test NEGATIVE TITER code = 879176) NUCLEOLAR (test code = 377016) NEGATIVE TITER NUCLEAR MEMBRANE (test code = NEGATIVE TITER 149227) CYTO. RETICULAR (ANEESH) (test NEGATIVE code = 394381) COMMENTS (test code = 719503) NONE METHOD (test code = 52125) (NOTE) KATHRYN (ANTI-NUCLEAR AB) WITH REFLEX [id number] 00:00:00 Test Item Value Reference Range Interpretation Comments ANTI-NUCLEAR ANTIBODIES (test POSITIVE code = 3506) KATHRYN PATTERN (REPORTED SEE BELOW TITER) (test code = 42001) HOMOGENEOUS (test code = NEGATIVE TITER 05603) SPECKLED (test code = 718649) 1:160 TITER DENSE FINE SPECKLED (test code NEGATIVE TITER = 56630) CENTROMERE (test code = NEGATIVE TITER 197756) COARSE SPECKLED (test code = NEGATIVE TITER 212793) DISCRETE NUCLEAR DOTS (test NEGATIVE TITER code = 413505) NUCLEOLAR (test code = 886512) NEGATIVE TITER NUCLEAR MEMBRANE (test code = NEGATIVE TITER 680435) CYTO. RETICULAR (ANEESH) (test NEGATIVE code = 506780) COMMENTS (test code = 322477) NONE METHOD (test code = 45351) (NOTE) KATHRYN (ANTI-NUCLEAR AB) WITH REFLEX [id number] 00:00:00 Test Item Value Reference Range Interpretation Comments ANTI-NUCLEAR ANTIBODIES (test POSITIVE code = 3506) KATHRYN PATTERN (REPORTED SEE BELOW TITER) (test code = 58158) HOMOGENEOUS (test code = NEGATIVE TITER 14824) SPECKLED (test code = 530967) 1:160 TITER DENSE FINE SPECKLED (test code NEGATIVE TITER = 65322) CENTROMERE (test code = NEGATIVE TITER 906939) COARSE SPECKLED (test code = NEGATIVE TITER 270538) DISCRETE NUCLEAR DOTS (test NEGATIVE TITER code = 226769) NUCLEOLAR (test code = 541885) NEGATIVE TITER NUCLEAR MEMBRANE (test code = NEGATIVE TITER 846910) CYTO. RETICULAR (ANEESH) (test NEGATIVE code = 338211) COMMENTS (test code = 945280) NONE METHOD (test code = 76569) (NOTE) KATHRYN (ANTI-NUCLEAR AB) WITH REFLEX [id number] 00:00:00 Test Item Value Reference Range Interpretation Comments ANTI-NUCLEAR ANTIBODIES (test POSITIVE code = 3506) KATHRYN PATTERN (REPORTED SEE BELOW TITER) (test code = 89053) HOMOGENEOUS (test code = NEGATIVE TITER 46592) SPECKLED (test code = 621364) 1:160 TITER DENSE FINE SPECKLED (test code NEGATIVE TITER = 64773) CENTROMERE (test code = NEGATIVE TITER 863643) COARSE SPECKLED (test code = NEGATIVE TITER 460748) DISCRETE NUCLEAR DOTS (test NEGATIVE TITER code = 626274) NUCLEOLAR (test code = 588482) NEGATIVE TITER NUCLEAR MEMBRANE (test code = NEGATIVE TITER 422194) CYTO. RETICULAR (ANEESH) (test NEGATIVE code = 752795) COMMENTS (test code = 580057) NONE METHOD (test code = 51328) (NOTE) KATHRYN (ANTI-NUCLEAR AB) WITH REFLEX [id number] 00:00:00 Test Item Value Reference Range Interpretation Comments ANTI-NUCLEAR ANTIBODIES (test POSITIVE code = 3506) KATHRYN PATTERN (REPORTED SEE BELOW TITER) (test code = 97344) HOMOGENEOUS (test code = NEGATIVE TITER 20698) SPECKLED (test code = 062042) 1:160 TITER DENSE FINE SPECKLED (test code NEGATIVE TITER = 62177) CENTROMERE (test code = NEGATIVE TITER 138882) COARSE SPECKLED (test code = NEGATIVE TITER 080541) DISCRETE NUCLEAR DOTS (test NEGATIVE TITER code = 895462) NUCLEOLAR (test code = 650389) NEGATIVE TITER NUCLEAR MEMBRANE (test code = NEGATIVE TITER 675371) CYTO. RETICULAR (ANEESH) (test NEGATIVE code = 053172) COMMENTS (test code = 312199) NONE METHOD (test code = 84657) (NOTE) KATHRYN (ANTI-NUCLEAR AB) WITH REFLEX [id number] 00:00:00 Test Item Value Reference Range Interpretation Comments ANTI-NUCLEAR ANTIBODIES (test POSITIVE code = 3506) KATHRYN PATTERN (REPORTED SEE BELOW TITER) (test code = 69195) HOMOGENEOUS (test code = NEGATIVE TITER 18771) SPECKLED (test code = 218811) 1:160 TITER DENSE FINE SPECKLED (test code NEGATIVE TITER = 87386) CENTROMERE (test code = NEGATIVE TITER 720955) COARSE SPECKLED (test code = NEGATIVE TITER 190988) DISCRETE NUCLEAR DOTS (test NEGATIVE TITER code = 007163) NUCLEOLAR (test code = 392428) NEGATIVE TITER NUCLEAR MEMBRANE (test code = NEGATIVE TITER 084678) CYTO. RETICULAR (ANEESH) (test NEGATIVE code = 375075) COMMENTS (test code = 408856) NONE METHOD (test code = 72339) (NOTE) KATHRYN (ANTI-NUCLEAR AB) WITH REFLEX [id number] 00:00:00 Test Item Value Reference Range Interpretation Comments ANTI-NUCLEAR ANTIBODIES (test POSITIVE code = 3506) KATHRYN PATTERN (REPORTED SEE BELOW TITER) (test code = 42257) HOMOGENEOUS (test code = NEGATIVE TITER 52124) SPECKLED (test code = 721960) 1:160 TITER DENSE FINE SPECKLED (test code NEGATIVE TITER = 90524) CENTROMERE (test code = NEGATIVE TITER 990733) COARSE SPECKLED (test code = NEGATIVE TITER 210827) DISCRETE NUCLEAR DOTS (test NEGATIVE TITER code = 943474) NUCLEOLAR (test code = 532488) NEGATIVE TITER NUCLEAR MEMBRANE (test code = NEGATIVE TITER 017392) CYTO. RETICULAR (ANEESH) (test NEGATIVE code = 939446) COMMENTS (test code = 610289) NONE METHOD (test code = 49498) (NOTE) KATHRYN (ANTI-NUCLEAR AB) WITH REFLEX [id number] 00:00:00 Test Item Value Reference Range Interpretation Comments ANTI-NUCLEAR ANTIBODIES (test POSITIVE code = 3506) KATHRYN PATTERN (REPORTED SEE BELOW TITER) (test code = 81417) HOMOGENEOUS (test code = NEGATIVE TITER 84885) SPECKLED (test code = 119457) 1:160 TITER DENSE FINE SPECKLED (test code NEGATIVE TITER = 78118) CENTROMERE (test code = NEGATIVE TITER 555359) COARSE SPECKLED (test code = NEGATIVE TITER 123423) DISCRETE NUCLEAR DOTS (test NEGATIVE TITER code = 631655) NUCLEOLAR (test code = 230640) NEGATIVE TITER NUCLEAR MEMBRANE (test code = NEGATIVE TITER 005060) CYTO. RETICULAR (ANEESH) (test NEGATIVE code = 415302) COMMENTS (test code = 403506) NONE METHOD (test code = 12443) (NOTE) KATHRYN (ANTI-NUCLEAR AB) WITH REFLEX [id number] 00:00:00 Test Item Value Reference Range Interpretation Comments ANTI-NUCLEAR ANTIBODIES (test POSITIVE code = 3506) KATHRYN PATTERN (REPORTED SEE BELOW TITER) (test code = 45865) HOMOGENEOUS (test code = NEGATIVE TITER 46984) SPECKLED (test code = 747029) 1:160 TITER DENSE FINE SPECKLED (test code NEGATIVE TITER = 47775) CENTROMERE (test code = NEGATIVE TITER 607217) COARSE SPECKLED (test code = NEGATIVE TITER 044934) DISCRETE NUCLEAR DOTS (test NEGATIVE TITER code = 377401) NUCLEOLAR (test code = 625485) NEGATIVE TITER NUCLEAR MEMBRANE (test code = NEGATIVE TITER 455258) CYTO. RETICULAR (ANEESH) (test NEGATIVE code = 497532) COMMENTS (test code = 314907) NONE METHOD (test code = 00418) (NOTE) KATHRYN (ANTI-NUCLEAR AB) WITH REFLEX [id number] 00:00:00 Test Item Value Reference Range Interpretation Comments ANTI-NUCLEAR ANTIBODIES (test POSITIVE code = 3506) KATHRYN PATTERN (REPORTED SEE BELOW TITER) (test code = 89793) HOMOGENEOUS (test code = NEGATIVE TITER 49971) SPECKLED (test code = 374663) 1:160 TITER DENSE FINE SPECKLED (test code NEGATIVE TITER = 67350) CENTROMERE (test code = NEGATIVE TITER 095268) COARSE SPECKLED (test code = NEGATIVE TITER 776995) DISCRETE NUCLEAR DOTS (test NEGATIVE TITER code = 732234) NUCLEOLAR (test code = 711181) NEGATIVE TITER NUCLEAR MEMBRANE (test code = NEGATIVE TITER 001165) CYTO. RETICULAR (ANEESH) (test NEGATIVE code = 533124) COMMENTS (test code = 216828) NONE METHOD (test code = 54045) (NOTE) KATHRYN (ANTI-NUCLEAR AB) WITH REFLEX [id number] 00:00:00 Test Item Value Reference Range Interpretation Comments ANTI-NUCLEAR ANTIBODIES (test POSITIVE code = 3506) KATHRYN PATTERN (REPORTED SEE BELOW TITER) (test code = 36701) HOMOGENEOUS (test code = NEGATIVE TITER 63209) SPECKLED (test code = 465819) 1:160 TITER DENSE FINE SPECKLED (test code NEGATIVE TITER = 65977) CENTROMERE (test code = NEGATIVE TITER 467158) COARSE SPECKLED (test code = NEGATIVE TITER 799933) DISCRETE NUCLEAR DOTS (test NEGATIVE TITER code = 056778) NUCLEOLAR (test code = 627196) NEGATIVE TITER NUCLEAR MEMBRANE (test code = NEGATIVE TITER 212803) CYTO. RETICULAR (ANEESH) (test NEGATIVE code = 488042) COMMENTS (test code = 272863) NONE METHOD (test code = 16224) (NOTE) KATHRYN (ANTI-NUCLEAR AB) WITH REFLEX [id number] 00:00:00 Test Item Value Reference Range Interpretation Comments ANTI-NUCLEAR ANTIBODIES (test POSITIVE code = 3506) KATHRYN PATTERN (REPORTED SEE BELOW TITER) (test code = 92316) HOMOGENEOUS (test code = NEGATIVE TITER 39982) SPECKLED (test code = 193280) 1:160 TITER DENSE FINE SPECKLED (test code NEGATIVE TITER = 60216) CENTROMERE (test code = NEGATIVE TITER 562178) COARSE SPECKLED (test code = NEGATIVE TITER 923868) DISCRETE NUCLEAR DOTS (test NEGATIVE TITER code = 119313) NUCLEOLAR (test code = 386799) NEGATIVE TITER NUCLEAR MEMBRANE (test code = NEGATIVE TITER 113286) CYTO. RETICULAR (ANEESH) (test NEGATIVE code = 904978) COMMENTS (test code = 058752) NONE METHOD (test code = 67139) (NOTE) KATHRYN (ANTI-NUCLEAR AB) WITH REFLEX [id number] 00:00:00 Test Item Value Reference Range Interpretation Comments ANTI-NUCLEAR ANTIBODIES (test POSITIVE code = 3506) KATHRYN PATTERN (REPORTED SEE BELOW TITER) (test code = 83642) HOMOGENEOUS (test code = NEGATIVE TITER 44665) SPECKLED (test code = 370061) 1:160 TITER DENSE FINE SPECKLED (test code NEGATIVE TITER = 61431) CENTROMERE (test code = NEGATIVE TITER 463382) COARSE SPECKLED (test code = NEGATIVE TITER 594312) DISCRETE NUCLEAR DOTS (test NEGATIVE TITER code = 450637) NUCLEOLAR (test code = 899530) NEGATIVE TITER NUCLEAR MEMBRANE (test code = NEGATIVE TITER 479358) CYTO. RETICULAR (ANEESH) (test NEGATIVE code = 034177) COMMENTS (test code = 842090) NONE METHOD (test code = 85895) (NOTE) KATHRYN (ANTI-NUCLEAR AB) WITH REFLEX [id number] 00:00:00 Test Item Value Reference Range Interpretation Comments ANTI-NUCLEAR ANTIBODIES (test POSITIVE code = 3506) KATHRYN PATTERN (REPORTED SEE BELOW TITER) (test code = 83184) HOMOGENEOUS (test code = NEGATIVE TITER 27611) SPECKLED (test code = 299238) 1:160 TITER DENSE FINE SPECKLED (test code NEGATIVE TITER = 12430) CENTROMERE (test code = NEGATIVE TITER 143091) COARSE SPECKLED (test code = NEGATIVE TITER 220175) DISCRETE NUCLEAR DOTS (test NEGATIVE TITER code = 047288) NUCLEOLAR (test code = 320093) NEGATIVE TITER NUCLEAR MEMBRANE (test code = NEGATIVE TITER 426382) CYTO. RETICULAR (ANEESH) (test NEGATIVE code = 260627) COMMENTS (test code = 998357) NONE METHOD (test code = 98086) (NOTE) KATHRYN (ANTI-NUCLEAR AB) WITH REFLEX [id number] 00:00:00 Test Item Value Reference Range Interpretation Comments ANTI-NUCLEAR ANTIBODIES (test POSITIVE code = 3506) KATHRYN PATTERN (REPORTED SEE BELOW TITER) (test code = 12306) HOMOGENEOUS (test code = NEGATIVE TITER 82964) SPECKLED (test code = 859356) 1:160 TITER DENSE FINE SPECKLED (test code NEGATIVE TITER = 26555) CENTROMERE (test code = NEGATIVE TITER 283472) COARSE SPECKLED (test code = NEGATIVE TITER 660190) DISCRETE NUCLEAR DOTS (test NEGATIVE TITER code = 789842) NUCLEOLAR (test code = 657353) NEGATIVE TITER NUCLEAR MEMBRANE (test code = NEGATIVE TITER 058379) CYTO. RETICULAR (ANEESH) (test NEGATIVE code = 425821) COMMENTS (test code = 371353) NONE METHOD (test code = 18280) (NOTE) KATHRYN (ANTI-NUCLEAR AB) WITH REFLEX [id number] 00:00:00 Test Item Value Reference Range Interpretation Comments ANTI-NUCLEAR ANTIBODIES (test POSITIVE code = 3506) KATHRYN PATTERN (REPORTED SEE BELOW TITER) (test code = 14152) HOMOGENEOUS (test code = NEGATIVE TITER 48003) SPECKLED (test code = 252576) 1:160 TITER DENSE FINE SPECKLED (test code NEGATIVE TITER = 24026) CENTROMERE (test code = NEGATIVE TITER 360704) COARSE SPECKLED (test code = NEGATIVE TITER 700832) DISCRETE NUCLEAR DOTS (test NEGATIVE TITER code = 801193) NUCLEOLAR (test code = 577456) NEGATIVE TITER NUCLEAR MEMBRANE (test code = NEGATIVE TITER 821595) CYTO. RETICULAR (ANEESH) (test NEGATIVE code = 037975) COMMENTS (test code = 173936) NONE METHOD (test code = 32516) (NOTE) KATHRYN (ANTI-NUCLEAR AB) WITH REFLEX [id number] 00:00:00 Test Item Value Reference Range Interpretation Comments ANTI-NUCLEAR ANTIBODIES (test POSITIVE code = 3506) KATHRYN PATTERN (REPORTED SEE BELOW TITER) (test code = 95697) HOMOGENEOUS (test code = NEGATIVE TITER 19348) SPECKLED (test code = 777808) 1:160 TITER DENSE FINE SPECKLED (test code NEGATIVE TITER = 73134) CENTROMERE (test code = NEGATIVE TITER 287880) COARSE SPECKLED (test code = NEGATIVE TITER 570978) DISCRETE NUCLEAR DOTS (test NEGATIVE TITER code = 043637) NUCLEOLAR (test code = 501179) NEGATIVE TITER NUCLEAR MEMBRANE (test code = NEGATIVE TITER 019353) CYTO. RETICULAR (ANEESH) (test NEGATIVE code = 489174) COMMENTS (test code = 052687) NONE METHOD (test code = 65428) (NOTE) KATHRYN (ANTI-NUCLEAR AB) WITH REFLEX [id number] 00:00:00 Test Item Value Reference Range Interpretation Comments ANTI-NUCLEAR ANTIBODIES (test POSITIVE code = 3506) KATHRYN PATTERN (REPORTED SEE BELOW TITER) (test code = 26703) HOMOGENEOUS (test code = NEGATIVE TITER 70787) SPECKLED (test code = 285107) 1:160 TITER DENSE FINE SPECKLED (test code NEGATIVE TITER = 31355) CENTROMERE (test code = NEGATIVE TITER 502884) COARSE SPECKLED (test code = NEGATIVE TITER 033124) DISCRETE NUCLEAR DOTS (test NEGATIVE TITER code = 237398) NUCLEOLAR (test code = 460471) NEGATIVE TITER NUCLEAR MEMBRANE (test code = NEGATIVE TITER 138665) CYTO. RETICULAR (ANEESH) (test NEGATIVE code = 750996) COMMENTS (test code = 854525) NONE METHOD (test code = 91975) (NOTE) KATHRYN (ANTI-NUCLEAR AB) WITH REFLEX [id number] 00:00:00 Test Item Value Reference Range Interpretation Comments ANTI-NUCLEAR ANTIBODIES (test POSITIVE code = 3506) KATHRYN PATTERN (REPORTED SEE BELOW TITER) (test code = 05264) HOMOGENEOUS (test code = NEGATIVE TITER 05716) SPECKLED (test code = 596565) 1:160 TITER DENSE FINE SPECKLED (test code NEGATIVE TITER = 91931) CENTROMERE (test code = NEGATIVE TITER 277263) COARSE SPECKLED (test code = NEGATIVE TITER 880074) DISCRETE NUCLEAR DOTS (test NEGATIVE TITER code = 675537) NUCLEOLAR (test code = 122043) NEGATIVE TITER NUCLEAR MEMBRANE (test code = NEGATIVE TITER 919190) CYTO. RETICULAR (ANEESH) (test NEGATIVE code = 713138) COMMENTS (test code = 778947) NONE METHOD (test code = 77727) (NOTE) KATHRYN (ANTI-NUCLEAR AB) WITH REFLEX [id number] 00:00:00 Test Item Value Reference Range Interpretation Comments ANTI-NUCLEAR ANTIBODIES (test POSITIVE code = 3506) KATHRYN PATTERN (REPORTED SEE BELOW TITER) (test code = 19064) HOMOGENEOUS (test code = NEGATIVE TITER 91601) SPECKLED (test code = 144162) 1:160 TITER DENSE FINE SPECKLED (test code NEGATIVE TITER = 75961) CENTROMERE (test code = NEGATIVE TITER 217185) COARSE SPECKLED (test code = NEGATIVE TITER 526525) DISCRETE NUCLEAR DOTS (test NEGATIVE TITER code = 208892) NUCLEOLAR (test code = 802314) NEGATIVE TITER NUCLEAR MEMBRANE (test code = NEGATIVE TITER 331602) CYTO. RETICULAR (ANEESH) (test NEGATIVE code = 549521) COMMENTS (test code = 898604) NONE METHOD (test code = 98551) (NOTE) SEDIMENTATION [id number] 10:45:17 Test Item Value Reference Range Interpretation Comments SEDIMENTATION RATE (test code = 2 MM/HOUR 0-20 1017) HEMOGLOBIN [id number] 10:22:30 Test Item Value Reference Range Interpretation Comments HEMOGLOBIN A1c (test code = 66309) 5.4 % 4.2-5.6 TSH, THIRD [id number] 06:03:43 Test Item Value Reference Range Interpretation Comments TSH, THIRD GENERATION (test code 1.220 UIU/ML 0.400-4.100 = 2821) RHEUMATOID FACTOR, [id number] 05:16:40 Test Item Value Reference Range Interpretation Comments RHEUMATOID FACTOR, QUANT (test code <10 IU/ML <14 = 3502) URIC [id number] 05:16:07 Test Item Value Reference Range Interpretation Comments URIC ACID (test code = 2233) 7.4 MG/DL 2.7-6.1 H COMPREHENSIVE METABOLIC [id number] 05:16:07 Test Item Value Reference Range Interpretation Comments GLUCOSE (test code = 88 MG/DL 70-99 2216) BUN (test code = 14 MG/DL 6-2207) CREATININE (test 0.71 MG/DL 0.60-1.30 code = 2214) eGFR (2020 CKD-EPI) 101 >60 (test code = 42478) ML/MIN/1.73 CALC BUN/CREAT (test 20 RATIO 09-26 code = 2235) SODIUM (test code = 140 MEQ/L 734-347 7899) POTASSIUM (test code 4.4 MEQ/L 3.5-5.4 = 2227) CHLORIDE (test code 106 MEQ/L 95-107 = 2215) CARBON DIOXIDE (test 19 MEQ/L 19-31 code [...] (test code = 33 U/L 5-40 2218) LIPID [id number] 05:16:07 Test Item Value Reference Range Interpretation [...] MOREINFORMATION , SEE CLIENT ANNOUNCE MENT AT [email or web address] [email or web address] RATIO LDL/HDL 2.58 RATIO <3.22 UNLESS O THERWISE (test code = 2238) INDICATED , ALL TESTING PERFORMED [facility], [facility]. [address] [place] [id number] [place] [address] DIRECTOR: TANNER VELASQUEZ M.D. CLIA NUMBER [id number] CAP ACCREDITATION N O. [id number] CCP [id number] 04:51:18 Test Item Value Reference Range Interpretation Comments CCP IgG (test <0.5 U/ML <3.0 INTERPRET ALEK code = 33882) INFORMATION * INTERPRETATION RESULT NEGATIVE <3.0 U /ML POSITIVE >=3.0 U/ML RHEUMATOID FACTOR, [id number] 00:00:00 Test Item Value Reference Range Interpretation Comments RHEUMATOID FACTOR, QUANT (test code <10 IU/ML = 3502) RHEUMATOID FACTOR, [id number] 00:00:00 Test Item Value Reference Range Interpretation Comments RHEUMATOID FACTOR, QUANT (test code <10 IU/ML = 3502) URIC [id number] 00:00:00 Test Item Value Reference Range Interpretation Comments URIC ACID (test code = 2233) 7.4 MG/DL URIC [id number] 00:00:00 Test Item Value Reference Range Interpretation Comments URIC ACID (test code = 2233) 7.4 MG/DL HEMOGLOBIN [id number] 00:00:00 Test Item Value Reference Range Interpretation Comments HEMOGLOBIN A1c (test code = 44086) 5.4 % HEMOGLOBIN [id number] 00:00:00 Test Item Value Reference Range Interpretation Comments HEMOGLOBIN A1c (test code = 70125) 5.4 % HEMOGLOBIN [id number] 00:00:00 Test Item Value Reference Range Interpretation Comments HEMOGLOBIN A1c (test code = 73215) 5.4 % COMPREHENSIVE METABOLIC [id number] 00:00:00 Test Item Value Reference Range Interpretation Comments GLUCOSE (test code = 2217) 88 MG/DL BUN (test code = 2208) 14 MG/DL CREATININE (test code = 2214) 0.71 MG/DL eGFR (2020 CKD-EPI) (test 101 ML/MIN/1.73 code = 41878) CALC BUN/CREAT (test code = 20 RATIO [...] code = 2219) 33 U/L COMPREHENSIVE METABOLIC [id number] 00:00:00 Test Item Value Reference Range Interpretation Comments GLUCOSE (test code = 2217) 88 MG/DL BUN (test code = 2208) 14 MG/DL CREATININE (test code = 2214) 0.71 MG/DL eGFR (2020 CKD-EPI) (test 101 ML/MIN/1.73 code = 45860) CALC BUN/CREAT (test code = 20 RATIO [...] (test code = 2219) 33 U/L LIPID [id number] 00:00:00 Test Item Value Reference Range Interpretation Comments CHOLESTEROL (test code = 2210) 135 MG/DL TRIGLYCERIDES (test code = 2232) 147 MG/DL HDL CHOLESTEROL (test code = 2220) 31 MG/DL CALC LDL CHOL (test code = 2237) 80 MG/DL RISK RATIO LDL/HDL (test code = 2.58 RATIO 2238) LIPID [id number] 00:00:00 Test Item Value Reference Range Interpretation Comments CHOLESTEROL (test code = 2210) 135 MG/DL TRIGLYCERIDES (test code = 2232) 147 MG/DL HDL CHOLESTEROL (test code = 2220) 31 MG/DL CALC LDL CHOL (test code = 2237) 80 MG/DL RISK RATIO LDL/HDL (test code = 2.58 RATIO 2238) SEDIMENTATION [id number] 00:00:00 Test Item Value Reference Range Interpretation Comments SEDIMENTATION RATE (test code = 2 MM/HOUR 1017) SEDIMENTATION [id number] 00:00:00 Test Item Value Reference Range Interpretation Comments SEDIMENTATION RATE (test code = 2 MM/HOUR 1017) TSH, THIRD [id number] 00:00:00 Test Item Value Reference Range Interpretation Comments TSH, THIRD GENERATION (test code 1.220 UIU/ML = 2821) TSH, THIRD [id number] 00:00:00 Test Item Value Reference Range Interpretation Comments TSH, THIRD GENERATION (test code 1.220 UIU/ML = 2821) TSH, THIRD [id number] 00:00:00 Test Item Value Reference Range Interpretation Comments TSH, THIRD GENERATION (test code 1.220 UIU/ML = 2821) CCP [id number] 00:00:00 Test Item Value Reference Range Interpretation Comments CCP IgG (test code = 64322) <0.5 U/ML CCP [id number] 00:00:00 Test Item Value Reference Range Interpretation Comments CCP IgG (test code = 27492) <0.5 U/ML CCP [id number] 00:00:00 Test Item Value Reference Range Interpretation Comments CCP IgG (test code = 50017) <0.5 U/ML RHEUMATOID FACTOR, [id number] 00:00:00 Test Item Value Reference Range Interpretation Comments RHEUMATOID FACTOR, QUANT (test code <10 IU/ML = 3502) RHEUMATOID FACTOR, [id number] 00:00:00 Test Item Value Reference Range Interpretation Comments RHEUMATOID FACTOR, QUANT (test code <10 IU/ML = 3502) RHEUMATOID FACTOR, [id number] 00:00:00 Test Item Value Reference Range Interpretation Comments RHEUMATOID FACTOR, QUANT (test code <10 IU/ML = 3502) URIC [id number] 00:00:00 Test Item Value Reference Range Interpretation Comments URIC ACID (test code = 2233) 7.4 MG/DL URIC [id number] 00:00:00 Test Item Value Reference Range Interpretation Comments URIC ACID (test code = 2233) 7.4 MG/DL HEMOGLOBIN [id number] 00:00:00 Test Item Value Reference Range Interpretation Comments HEMOGLOBIN A1c (test code = 28318) 5.4 % HEMOGLOBIN [id number] 00:00:00 Test Item Value Reference Range Interpretation Comments HEMOGLOBIN A1c (test code = 48808) 5.4 % HEMOGLOBIN [id number] 00:00:00 Test Item Value Reference Range Interpretation Comments HEMOGLOBIN A1c (test code = 33714) 5.4 % COMPREHENSIVE METABOLIC [id number] 00:00:00 Test Item Value Reference Range Interpretation Comments GLUCOSE (test code = 2217) 88 MG/DL BUN (test code = 2208) 14 MG/DL CREATININE (test code = 2214) 0.71 MG/DL eGFR (2020 CKD-EPI) (test 101 ML/MIN/1.73 code = 15455) CALC BUN/CREAT (test code = 20 RATIO [...] code = 2219) 33 U/L COMPREHENSIVE METABOLIC [id number] 00:00:00 Test Item Value Reference Range Interpretation Comments GLUCOSE (test code = 2217) 88 MG/DL BUN (test code = 2208) 14 MG/DL CREATININE (test code = 2214) 0.71 MG/DL eGFR (2020 CKD-EPI) (test 101 ML/MIN/1.73 code = 45292) CALC BUN/CREAT (test code = 20 RATIO [...] = 0.6 MG/DL 7) ALKALINE PHOSPHATASE (test 102 U/L code = 2204) AST (test code = 2218) 21 U/L ALT (test code = 2219) 33 U/L LIPID [id number] 00:00:00 Test Item Value Reference Range Interpretation Comments CHOLESTEROL (test code = 2210) 135 MG/DL TRIGLYCERIDES (test code = 2232) 147 MG/DL HDL CHOLESTEROL (test code = 2220) 31 MG/DL CALC LDL CHOL (test code = 2237) 80 MG/DL RISK RATIO LDL/HDL (test code = 2.58 RATIO 2238) LIPID [id number] 00:00:00 Test Item Value Reference Range Interpretation Comments CHOLESTEROL (test code = 2210) 135 MG/DL TRIGLYCERIDES (test code = 2232) 147 MG/DL HDL CHOLESTEROL (test code = 2220) 31 MG/DL CALC LDL CHOL (test code = 2237) 80 MG/DL RISK RATIO LDL/HDL (test code = 2.58 RATIO 2238) SEDIMENTATION [id number] 00:00:00 Test Item Value Reference Range Interpretation Comments SEDIMENTATION RATE (test code = 2 MM/HOUR 1017) SEDIMENTATION [id number] 00:00:00 Test Item Value Reference Range Interpretation Comments SEDIMENTATION RATE (test code = 2 MM/HOUR 1017) TSH, THIRD [id number] 00:00:00 Test Item Value Reference Range Interpretation Comments TSH, THIRD GENERATION (test code 1.220 UIU/ML = 2821) TSH, THIRD [id number] 00:00:00 Test Item Value Reference Range Interpretation Comments TSH, THIRD GENERATION (test code 1.220 UIU/ML = 2821) TSH, THIRD [id number] 00:00:00 Test Item Value Reference Range Interpretation Comments TSH, THIRD GENERATION (test code 1.220 UIU/ML = 2821) CCP [id number] 00:00:00 Test Item Value Reference Range Interpretation Comments CCP IgG (test code = 57398) <0.5 U/ML CCP [id number] 00:00:00 Test Item Value Reference Range Interpretation Comments CCP IgG (test code = 24336) <0.5 U/ML CCP [id number] 00:00:00 Test Item Value Reference Range Interpretation Comments CCP IgG (test code = 88897) <0.5 U/ML RHEUMATOID FACTOR, [id number] 00:00:00 Test Item Value Reference Range Interpretation Comments RHEUMATOID FACTOR, QUANT (test code <10 IU/ML = 3502) RHEUMATOID FACTOR, [id number] 00:00:00 Test Item Value Reference Range Interpretation Comments RHEUMATOID FACTOR, QUANT (test code <10 IU/ML = 3502) RHEUMATOID FACTOR, [id number] 00:00:00 Test Item Value Reference Range Interpretation Comments RHEUMATOID FACTOR, QUANT (test code <10 IU/ML = 3502) URIC [id number] 00:00:00 Test Item Value Reference Range Interpretation Comments URIC ACID (test code = 2233) 7.4 MG/DL URIC [id number] 00:00:00 Test Item Value Reference Range Interpretation Comments URIC ACID (test code = 2233) 7.4 MG/DL HEMOGLOBIN [id number] 00:00:00 Test Item Value Reference Range Interpretation Comments HEMOGLOBIN A1c (test code = 58153) 5.4 % HEMOGLOBIN [id number] 00:00:00 Test Item Value Reference Range Interpretation Comments HEMOGLOBIN A1c (test code = 53916) 5.4 % HEMOGLOBIN [id number] 00:00:00 Test Item Value Reference Range Interpretation Comments HEMOGLOBIN A1c (test code = 99891) 5.4 % COMPREHENSIVE METABOLIC [id number] 00:00:00 Test Item Value Reference Range Interpretation Comments GLUCOSE (test code = 2217) 88 MG/DL BUN (test code = 2208) 14 MG/DL CREATININE (test code = 2214) 0.71 MG/DL eGFR (2020 CKD-EPI) (test 101 ML/MIN/1.73 code = 48997) CALC BUN/CREAT (test code = 20 RATIO [...] code = 2219) 33 U/L COMPREHENSIVE METABOLIC [id number] 00:00:00 Test Item Value Reference Range Interpretation Comments GLUCOSE (test code = 2217) 88 MG/DL BUN (test code = 2208) 14 MG/DL CREATININE (test code = 2214) 0.71 MG/DL eGFR (2020 CKD-EPI) (test 101 ML/MIN/1.73 code = 71735) CALC BUN/CREAT (test code = 20 RATIO [...] (test code = 2219) 33 U/L LIPID [id number] 00:00:00 Test Item Value Reference Range Interpretation Comments CHOLESTEROL (test code = 2210) 135 MG/DL TRIGLYCERIDES (test code = 2232) 147 MG/DL HDL CHOLESTEROL (test code = 2220) 31 MG/DL CALC LDL CHOL (test code = 2237) 80 MG/DL RISK RATIO LDL/HDL (test code = 2.58 RATIO 2238) LIPID [id number] 00:00:00 Test Item Value Reference Range Interpretation Comments CHOLESTEROL (test code = 2210) 135 MG/DL TRIGLYCERIDES (test code = 2232) 147 MG/DL HDL CHOLESTEROL (test code = 2220) 31 MG/DL CALC LDL CHOL (test code = 2237) 80 MG/DL RISK RATIO LDL/HDL (test code = 2.58 RATIO 2238) SEDIMENTATION [id number] 00:00:00 Test Item Value Reference Range Interpretation Comments SEDIMENTATION RATE (test code = 2 MM/HOUR 1017) SEDIMENTATION [id number] 00:00:00 Test Item Value Reference Range Interpretation Comments SEDIMENTATION RATE (test code = 2 MM/HOUR 1017) TSH, THIRD [id number] 00:00:00 Test Item Value Reference Range Interpretation Comments TSH, THIRD GENERATION (test code 1.220 UIU/ML = 2821) TSH, THIRD [id number] 00:00:00 Test Item Value Reference Range Interpretation Comments TSH, THIRD GENERATION (test code 1.220 UIU/ML = 2821) TSH, THIRD [id number] 00:00:00 Test Item Value Reference Range Interpretation Comments TSH, THIRD GENERATION (test code 1.220 UIU/ML = 2821) CCP [id number] 00:00:00 Test Item Value Reference Range Interpretation Comments CCP IgG (test code = 75535) <0.5 U/ML CCP [id number] 00:00:00 Test Item Value Reference Range Interpretation Comments CCP IgG (test code = 57848) <0.5 U/ML CCP [id number] 00:00:00 Test Item Value Reference Range Interpretation Comments CCP IgG (test code = 40650) <0.5 U/ML RHEUMATOID FACTOR, [id number] 00:00:00 Test Item Value Reference Range Interpretation Comments RHEUMATOID FACTOR, QUANT (test code <10 IU/ML = 3502) RHEUMATOID FACTOR, [id number] 00:00:00 Test Item Value Reference Range Interpretation Comments RHEUMATOID FACTOR, QUANT (test code <10 IU/ML = 3502) RHEUMATOID FACTOR, [id number] 00:00:00 Test Item Value Reference Range Interpretation Comments RHEUMATOID FACTOR, QUANT (test code <10 IU/ML = 3502) URIC [id number] 00:00:00 Test Item Value Reference Range Interpretation Comments URIC ACID (test code = 2233) 7.4 MG/DL URIC [id number] 00:00:00 Test Item Value Reference Range Interpretation Comments URIC ACID (test code = 2233) 7.4 MG/DL HEMOGLOBIN [id number] 00:00:00 Test Item Value Reference Range Interpretation Comments HEMOGLOBIN A1c (test code = 81284) 5.4 % HEMOGLOBIN [id number] 00:00:00 Test Item Value Reference Range Interpretation Comments HEMOGLOBIN A1c (test code = 99317) 5.4 % HEMOGLOBIN [id number] 00:00:00 Test Item Value Reference Range Interpretation Comments HEMOGLOBIN A1c (test code = 20476) 5.4 % COMPREHENSIVE METABOLIC [id number] 00:00:00 Test Item Value Reference Range Interpretation Comments GLUCOSE (test code = 2217) 88 MG/DL BUN (test code = 2208) 14 MG/DL CREATININE (test code = 2214) 0.71 MG/DL eGFR (2020 CKD-EPI) (test 101 ML/MIN/1.73 code = 19875) CALC BUN/CREAT (test code = 20 RATIO [...] code = 2219) 33 U/L COMPREHENSIVE METABOLIC [id number] 00:00:00 Test Item Value Reference Range Interpretation Comments GLUCOSE (test code = 2217) 88 MG/DL BUN (test code = 2208) 14 MG/DL CREATININE (test code = 2214) 0.71 MG/DL eGFR (2020 CKD-EPI) (test 101 ML/MIN/1.73 code = 61787) CALC BUN/CREAT (test code = 20 RATIO [...] (test code = 2219) 33 U/L LIPID [id number] 00:00:00 Test Item Value Reference Range Interpretation Comments CHOLESTEROL (test code = 2210) 135 MG/DL TRIGLYCERIDES (test code = 2232) 147 MG/DL HDL CHOLESTEROL (test code = 2220) 31 MG/DL CALC LDL CHOL (test code = 2237) 80 MG/DL RISK RATIO LDL/HDL (test code = 2.58 RATIO 2238) LIPID [id number] 00:00:00 Test Item Value Reference Range Interpretation Comments CHOLESTEROL (test code = 2210) 135 MG/DL TRIGLYCERIDES (test code = 2232) 147 MG/DL HDL CHOLESTEROL (test code = 2220) 31 MG/DL CALC LDL CHOL (test code = 2237) 80 MG/DL RISK RATIO LDL/HDL (test code = 2.58 RATIO 2238) SEDIMENTATION [id number] 00:00:00 Test Item Value Reference Range Interpretation Comments SEDIMENTATION RATE (test code = 2 MM/HOUR 1017) SEDIMENTATION [id number] 00:00:00 Test Item Value Reference Range Interpretation Comments SEDIMENTATION RATE (test code = 2 MM/HOUR 1017) TSH, THIRD [id number] 00:00:00 Test Item Value Reference Range Interpretation Comments TSH, THIRD GENERATION (test code 1.220 UIU/ML = 2821) TSH, THIRD [id number] 00:00:00 Test Item Value Reference Range Interpretation Comments TSH, THIRD GENERATION (test code 1.220 UIU/ML = 2821) TSH, THIRD [id number] 00:00:00 Test Item Value Reference Range Interpretation Comments TSH, THIRD GENERATION (test code 1.220 UIU/ML = 2821) CCP [id number] 00:00:00 Test Item Value Reference Range Interpretation Comments CCP IgG (test code = 64763) <0.5 U/ML CCP [id number] 00:00:00 Test Item Value Reference Range Interpretation Comments CCP IgG (test code = 90036) <0.5 U/ML CCP [id number] 00:00:00 Test Item Value Reference Range Interpretation Comments CCP IgG (test code = 71048) <0.5 U/ML RHEUMATOID FACTOR, [id number] 00:00:00 Test Item Value Reference Range Interpretation Comments RHEUMATOID FACTOR, QUANT (test code <10 IU/ML = 3502) RHEUMATOID FACTOR, [id number] 00:00:00 Test Item Value Reference Range Interpretation Comments RHEUMATOID FACTOR, QUANT (test code <10 IU/ML = 3502) RHEUMATOID FACTOR, [id number] 00:00:00 Test Item Value Reference Range Interpretation Comments RHEUMATOID FACTOR, QUANT (test code <10 IU/ML = 3502) URIC [id number] 00:00:00 Test Item Value Reference Range Interpretation Comments URIC ACID (test code = 2233) 7.4 MG/DL URIC [id number] 00:00:00 Test Item Value Reference Range Interpretation Comments URIC ACID (test code = 2233) 7.4 MG/DL HEMOGLOBIN [id number] 00:00:00 Test Item Value Reference Range Interpretation Comments HEMOGLOBIN A1c (test code = 51297) 5.4 % HEMOGLOBIN [id number] 00:00:00 Test Item Value Reference Range Interpretation Comments HEMOGLOBIN A1c (test code = 04601) 5.4 % HEMOGLOBIN [id number] 00:00:00 Test Item Value Reference Range Interpretation Comments HEMOGLOBIN A1c (test code = 32032) 5.4 % COMPREHENSIVE METABOLIC [id number] 00:00:00 Test Item Value Reference Range Interpretation Comments GLUCOSE (test code = 2217) 88 MG/DL BUN (test code = 2208) 14 MG/DL CREATININE (test code = 2214) 0.71 MG/DL eGFR (2020 CKD-EPI) (test 101 ML/MIN/1.73 code = 50417) CALC BUN/CREAT (test code = 20 RATIO [...] code = 2219) 33 U/L COMPREHENSIVE METABOLIC [id number] 00:00:00 Test Item Value Reference Range Interpretation Comments GLUCOSE (test code = 2217) 88 MG/DL BUN (test code = 2208) 14 MG/DL CREATININE (test code = 2214) 0.71 MG/DL eGFR (2020 CKD-EPI) (test 101 ML/MIN/1.73 code = 04192) CALC BUN/CREAT (test code = 20 RATIO [...] (test code = 2219) 33 U/L LIPID [id number] 00:00:00 Test Item Value Reference Range Interpretation Comments CHOLESTEROL (test code = 2210) 135 MG/DL TRIGLYCERIDES (test code = 2232) 147 MG/DL HDL CHOLESTEROL (test code = 2220) 31 MG/DL CALC LDL CHOL (test code = 2237) 80 MG/DL RISK RATIO LDL/HDL (test code = 2.58 RATIO 2238) LIPID [id number] 00:00:00 Test Item Value Reference Range Interpretation Comments CHOLESTEROL (test code = 2210) 135 MG/DL TRIGLYCERIDES (test code = 2232) 147 MG/DL HDL CHOLESTEROL (test code = 2220) 31 MG/DL CALC LDL CHOL (test code = 2237) 80 MG/DL RISK RATIO LDL/HDL (test code = 2.58 RATIO 2238) SEDIMENTATION [id number] 00:00:00 Test Item Value Reference Range Interpretation Comments SEDIMENTATION RATE (test code = 2 MM/HOUR 1017) SEDIMENTATION [id number] 00:00:00 Test Item Value Reference Range Interpretation Comments SEDIMENTATION RATE (test code = 2 MM/HOUR 1017) TSH, THIRD [id number] 00:00:00 Test Item Value Reference Range Interpretation Comments TSH, THIRD GENERATION (test code 1.220 UIU/ML = 2821) TSH, THIRD [id number] 00:00:00 Test Item Value Reference Range Interpretation Comments TSH, THIRD GENERATION (test code 1.220 UIU/ML = 2821) TSH, THIRD [id number] 00:00:00 Test Item Value Reference Range Interpretation Comments TSH, THIRD GENERATION (test code 1.220 UIU/ML = 2821) CCP [id number] 00:00:00 Test Item Value Reference Range Interpretation Comments CCP IgG (test code = 60554) <0.5 U/ML CCP [id number] 00:00:00 Test Item Value Reference Range Interpretation Comments CCP IgG (test code = 22194) <0.5 U/ML CCP [id number] 00:00:00 Test Item Value Reference Range Interpretation Comments CCP IgG (test code = 72231) <0.5 U/ML RHEUMATOID FACTOR, [id number] 00:00:00 Test Item Value Reference Range Interpretation Comments RHEUMATOID FACTOR, QUANT (test code <10 IU/ML = 3502) RHEUMATOID FACTOR, [id number] 00:00:00 Test Item Value Reference Range Interpretation Comments RHEUMATOID FACTOR, QUANT (test code <10 IU/ML = 3502) RHEUMATOID FACTOR, [id number] 00:00:00 Test Item Value Reference Range Interpretation Comments RHEUMATOID FACTOR, QUANT (test code <10 IU/ML = 3502) URIC [id number] 00:00:00 Test Item Value Reference Range Interpretation Comments URIC ACID (test code = 2233) 7.4 MG/DL URIC [id number] 00:00:00 Test Item Value Reference Range Interpretation Comments URIC ACID (test code = 2233) 7.4 MG/DL HEMOGLOBIN [id number] 00:00:00 Test Item Value Reference Range Interpretation Comments HEMOGLOBIN A1c (test code = 73466) 5.4 % HEMOGLOBIN [id number] 00:00:00 Test Item Value Reference Range Interpretation Comments HEMOGLOBIN A1c (test code = 45551) 5.4 % HEMOGLOBIN [id number] 00:00:00 Test Item Value Reference Range Interpretation Comments HEMOGLOBIN A1c (test code = 07454) 5.4 % COMPREHENSIVE METABOLIC [id number] 00:00:00 Test Item Value Reference Range Interpretation Comments GLUCOSE (test code = 2217) 88 MG/DL BUN (test code = 2208) 14 MG/DL CREATININE (test code = 2214) 0.71 MG/DL eGFR (2020 CKD-EPI) (test 101 ML/MIN/1.73 code = 47225) CALC BUN/CREAT (test code = 20 RATIO [...] code = 2219) 33 U/L COMPREHENSIVE METABOLIC [id number] 00:00:00 Test Item Value Reference Range Interpretation Comments GLUCOSE (test code = 2217) 88 MG/DL BUN (test code = 2208) 14 MG/DL CREATININE (test code = 2214) 0.71 MG/DL eGFR (2020 CKD-EPI) (test 101 ML/MIN/1.73 code = 69858) CALC BUN/CREAT (test code = 20 RATIO [...] (test code = 2219) 33 U/L LIPID [id number] 00:00:00 Test Item Value Reference Range Interpretation Comments CHOLESTEROL (test code = 2210) 135 MG/DL TRIGLYCERIDES (test code = 2232) 147 MG/DL HDL CHOLESTEROL (test code = 2220) 31 MG/DL CALC LDL CHOL (test code = 2237) 80 MG/DL RISK RATIO LDL/HDL (test code = 2.58 RATIO 2238) LIPID [id number] 00:00:00 Test Item Value Reference Range Interpretation Comments CHOLESTEROL (test code = 2210) 135 MG/DL TRIGLYCERIDES (test code = 2232) 147 MG/DL HDL CHOLESTEROL (test code = 2220) 31 MG/DL CALC LDL CHOL (test code = 2237) 80 MG/DL RISK RATIO LDL/HDL (test code = 2.58 RATIO 2238) SEDIMENTATION [id number] 00:00:00 Test Item Value Reference Range Interpretation Comments SEDIMENTATION RATE (test code = 2 MM/HOUR 1017) SEDIMENTATION [id number] 00:00:00 Test Item Value Reference Range Interpretation Comments SEDIMENTATION RATE (test code = 2 MM/HOUR 1017) TSH, THIRD [id number] 00:00:00 Test Item Value Reference Range Interpretation Comments TSH, THIRD GENERATION (test code 1.220 UIU/ML = 2821) TSH, THIRD [id number] 00:00:00 Test Item Value Reference Range Interpretation Comments TSH, THIRD GENERATION (test code 1.220 UIU/ML = 2821) TSH, THIRD [id number] 00:00:00 Test Item Value Reference Range Interpretation Comments TSH, THIRD GENERATION (test code 1.220 UIU/ML = 2821) CCP [id number] 00:00:00 Test Item Value Reference Range Interpretation Comments CCP IgG (test code = 80238) <0.5 U/ML CCP [id number] 00:00:00 Test Item Value Reference Range Interpretation Comments CCP IgG (test code = 00802) <0.5 U/ML CCP [id number] 00:00:00 Test Item Value Reference Range Interpretation Comments CCP IgG (test code = 93062) <0.5 U/ML RHEUMATOID FACTOR, [id number] 00:00:00 Test Item Value Reference Range Interpretation Comments RHEUMATOID FACTOR, QUANT (test code <10 IU/ML = 3502) RHEUMATOID FACTOR, [id number] 00:00:00 Test Item Value Reference Range Interpretation Comments RHEUMATOID FACTOR, QUANT (test code <10 IU/ML = 3502) RHEUMATOID FACTOR, [id number] 00:00:00 Test Item Value Reference Range Interpretation Comments RHEUMATOID FACTOR, QUANT (test code <10 IU/ML = 3502) URIC [id number] 00:00:00 Test Item Value Reference Range Interpretation Comments URIC ACID (test code = 2233) 7.4 MG/DL URIC [id number] 00:00:00 Test Item Value Reference Range Interpretation Comments URIC ACID (test code = 2233) 7.4 MG/DL HEMOGLOBIN [id number] 00:00:00 Test Item Value Reference Range Interpretation Comments HEMOGLOBIN A1c (test code = 53778) 5.4 % HEMOGLOBIN [id number] 00:00:00 Test Item Value Reference Range Interpretation Comments HEMOGLOBIN A1c (test code = 86082) 5.4 % HEMOGLOBIN [id number] 00:00:00 Test Item Value Reference Range Interpretation Comments HEMOGLOBIN A1c (test code = 65829) 5.4 % COMPREHENSIVE METABOLIC [id number] 00:00:00 Test Item Value Reference Range Interpretation Comments GLUCOSE (test code = 2217) 88 MG/DL BUN (test code = 2208) 14 MG/DL CREATININE (test code = 2214) 0.71 MG/DL eGFR (2020 CKD-EPI) (test 101 ML/MIN/1.73 code = 47664) CALC BUN/CREAT (test code = 20 RATIO [...] code = 2219) 33 U/L COMPREHENSIVE METABOLIC [id number] 00:00:00 Test Item Value Reference Range Interpretation Comments GLUCOSE (test code = 2217) 88 MG/DL BUN (test code = 2208) 14 MG/DL CREATININE (test code = 2214) 0.71 MG/DL eGFR (2020 CKD-EPI) (test 101 ML/MIN/1.73 code = 44919) CALC BUN/CREAT (test code = 20 RATIO [...] (test code = 2219) 33 U/L LIPID [id number] 00:00:00 Test Item Value Reference Range Interpretation Comments CHOLESTEROL (test code = 2210) 135 MG/DL TRIGLYCERIDES (test code = 2232) 147 MG/DL HDL CHOLESTEROL (test code = 2220) 31 MG/DL CALC LDL CHOL (test code = 2237) 80 MG/DL RISK RATIO LDL/HDL (test code = 2.58 RATIO 2238) LIPID [id number] 00:00:00 Test Item Value Reference Range Interpretation Comments CHOLESTEROL (test code = 2210) 135 MG/DL TRIGLYCERIDES (test code = 2232) 147 MG/DL HDL CHOLESTEROL (test code = 2220) 31 MG/DL CALC LDL CHOL (test code = 2237) 80 MG/DL RISK RATIO LDL/HDL (test code = 2.58 RATIO 2238) SEDIMENTATION [id number] 00:00:00 Test Item Value Reference Range Interpretation Comments SEDIMENTATION RATE (test code = 2 MM/HOUR 1017) SEDIMENTATION [id number] 00:00:00 Test Item Value Reference Range Interpretation Comments SEDIMENTATION RATE (test code = 2 MM/HOUR 1017) TSH, THIRD [id number] 00:00:00 Test Item Value Reference Range Interpretation Comments TSH, THIRD GENERATION (test code 1.220 UIU/ML = 2821) TSH, THIRD [id number] 00:00:00 Test Item Value Reference Range Interpretation Comments TSH, THIRD GENERATION (test code 1.220 UIU/ML = 2821) TSH, THIRD [id number] 00:00:00 Test Item Value Reference Range Interpretation Comments TSH, THIRD GENERATION (test code 1.220 UIU/ML = 2821) CCP [id number] 00:00:00 Test Item Value Reference Range Interpretation Comments CCP IgG (test code = 23711) <0.5 U/ML CCP [id number] 00:00:00 Test Item Value Reference Range Interpretation Comments CCP IgG (test code = 21662) <0.5 U/ML CCP [id number] 00:00:00 Test Item Value Reference Range Interpretation Comments CCP IgG (test code = 45914) <0.5 U/ML RHEUMATOID FACTOR, [id number] 00:00:00 Test Item Value Reference Range Interpretation Comments RHEUMATOID FACTOR, QUANT (test code <10 IU/ML = 3502) RHEUMATOID FACTOR, [id number] 00:00:00 Test Item Value Reference Range Interpretation Comments RHEUMATOID FACTOR, QUANT (test code <10 IU/ML = 3502) RHEUMATOID FACTOR, [id number] 00:00:00 Test Item Value Reference Range Interpretation Comments RHEUMATOID FACTOR, QUANT (test code <10 IU/ML = 3502) URIC [id number] 00:00:00 Test Item Value Reference Range Interpretation Comments URIC ACID (test code = 2233) 7.4 MG/DL URIC [id number] 00:00:00 Test Item Value Reference Range Interpretation Comments URIC ACID (test code = 2233) 7.4 MG/DL HEMOGLOBIN [id number] 00:00:00 Test Item Value Reference Range Interpretation Comments HEMOGLOBIN A1c (test code = 44308) 5.4 % HEMOGLOBIN [id number] 00:00:00 Test Item Value Reference Range Interpretation Comments HEMOGLOBIN A1c (test code = 75305) 5.4 % HEMOGLOBIN [id number] 00:00:00 Test Item Value Reference Range Interpretation Comments HEMOGLOBIN A1c (test code = 20759) 5.4 % COMPREHENSIVE METABOLIC [id number] 00:00:00 Test Item Value Reference Range Interpretation Comments GLUCOSE (test code = 2217) 88 MG/DL BUN (test code = 2208) 14 MG/DL CREATININE (test code = 2214) 0.71 MG/DL eGFR (2020 CKD-EPI) (test 101 ML/MIN/1.73 code = 34492) CALC BUN/CREAT (test code = 20 RATIO [...] code = 2219) 33 U/L COMPREHENSIVE METABOLIC [id number] 00:00:00 Test Item Value Reference Range Interpretation Comments GLUCOSE (test code = 2217) 88 MG/DL BUN (test code = 2208) 14 MG/DL CREATININE (test code = 2214) 0.71 MG/DL eGFR (2020 CKD-EPI) (test 101 ML/MIN/1.73 code = 58567) CALC BUN/CREAT (test code = 20 RATIO [...] (test code = 2219) 33 U/L LIPID [id number] 00:00:00 Test Item Value Reference Range Interpretation Comments CHOLESTEROL (test code = 2210) 135 MG/DL TRIGLYCERIDES (test code = 2232) 147 MG/DL HDL CHOLESTEROL (test code = 2220) 31 MG/DL CALC LDL CHOL (test code = 2237) 80 MG/DL RISK RATIO LDL/HDL (test code = 2.58 RATIO 2238) LIPID [id number] 00:00:00 Test Item Value Reference Range Interpretation Comments CHOLESTEROL (test code = 2210) 135 MG/DL TRIGLYCERIDES (test code = 2232) 147 MG/DL HDL CHOLESTEROL (test code = 2220) 31 MG/DL CALC LDL CHOL (test code = 2237) 80 MG/DL RISK RATIO LDL/HDL (test code = 2.58 RATIO 2238) SEDIMENTATION [id number] 00:00:00 Test Item Value Reference Range Interpretation Comments SEDIMENTATION RATE (test code = 2 MM/HOUR 1017) SEDIMENTATION [id number] 00:00:00 Test Item Value Reference Range Interpretation Comments SEDIMENTATION RATE (test code = 2 MM/HOUR 1017) TSH, THIRD [id number] 00:00:00 Test Item Value Reference Range Interpretation Comments TSH, THIRD GENERATION (test code 1.220 UIU/ML = 2821) TSH, THIRD [id number] 00:00:00 Test Item Value Reference Range Interpretation Comments TSH, THIRD GENERATION (test code 1.220 UIU/ML = 2821) TSH, THIRD [id number] 00:00:00 Test Item Value Reference Range Interpretation Comments TSH, THIRD GENERATION (test code 1.220 UIU/ML = 2821) CCP [id number] 00:00:00 Test Item Value Reference Range Interpretation Comments CCP IgG (test code = 16636) <0.5 U/ML CCP [id number] 00:00:00 Test Item Value Reference Range Interpretation Comments CCP IgG (test code = 03972) <0.5 U/ML CCP [id number] 00:00:00 Test Item Value Reference Range Interpretation Comments CCP IgG (test code = 90055) <0.5 U/ML RHEUMATOID FACTOR, [id number] 00:00:00 Test Item Value Reference Range Interpretation Comments RHEUMATOID FACTOR, QUANT (test code <10 IU/ML = 3502) RHEUMATOID FACTOR, [id number] 00:00:00 Test Item Value Reference Range Interpretation Comments RHEUMATOID FACTOR, QUANT (test code <10 IU/ML = 3502) RHEUMATOID FACTOR, [id number] 00:00:00 Test Item Value Reference Range Interpretation Comments RHEUMATOID FACTOR, QUANT (test code <10 IU/ML = 3502) URIC [id number] 00:00:00 Test Item Value Reference Range Interpretation Comments URIC ACID (test code = 2233) 7.4 MG/DL URIC [id number] 00:00:00 Test Item Value Reference Range Interpretation Comments URIC ACID (test code = 2233) 7.4 MG/DL HEMOGLOBIN [id number] 00:00:00 Test Item Value Reference Range Interpretation Comments HEMOGLOBIN A1c (test code = 02696) 5.4 % HEMOGLOBIN [id number] 00:00:00 Test Item Value Reference Range Interpretation Comments HEMOGLOBIN A1c (test code = 49921) 5.4 % HEMOGLOBIN [id number] 00:00:00 Test Item Value Reference Range Interpretation Comments HEMOGLOBIN A1c (test code = 00531) 5.4 % COMPREHENSIVE METABOLIC [id number] 00:00:00 Test Item Value Reference Range Interpretation Comments GLUCOSE (test code = 2217) 88 MG/DL BUN (test code = 2208) 14 MG/DL CREATININE (test code = 2214) 0.71 MG/DL eGFR (2020 CKD-EPI) (test 101 ML/MIN/1.73 code = 65071) CALC BUN/CREAT (test code = 20 RATIO [...] code = 2219) 33 U/L COMPREHENSIVE METABOLIC [id number] 00:00:00 Test Item Value Reference Range Interpretation Comments GLUCOSE (test code = 2217) 88 MG/DL BUN (test code = 2208) 14 MG/DL CREATININE (test code = 2214) 0.71 MG/DL eGFR (2020 CKD-EPI) (test 101 ML/MIN/1.73 code = 86484) CALC BUN/CREAT (test code = 20 RATIO [...] (test code = 2219) 33 U/L LIPID [id number] 00:00:00 Test Item Value Reference Range Interpretation Comments CHOLESTEROL (test code = 2210) 135 MG/DL TRIGLYCERIDES (test code = 2232) 147 MG/DL HDL CHOLESTEROL (test code = 2220) 31 MG/DL CALC LDL CHOL (test code = 2237) 80 MG/DL RISK RATIO LDL/HDL (test code = 2.58 RATIO 2238) LIPID [id number] 00:00:00 Test Item Value Reference Range Interpretation Comments CHOLESTEROL (test code = 2210) 135 MG/DL TRIGLYCERIDES (test code = 2232) 147 MG/DL HDL CHOLESTEROL (test code = 2220) 31 MG/DL CALC LDL CHOL (test code = 2237) 80 MG/DL RISK RATIO LDL/HDL (test code = 2.58 RATIO 2238) SEDIMENTATION [id number] 00:00:00 Test Item Value Reference Range Interpretation Comments SEDIMENTATION RATE (test code = 2 MM/HOUR 1017) SEDIMENTATION [id number] 00:00:00 Test Item Value Reference Range Interpretation Comments SEDIMENTATION RATE (test code = 2 MM/HOUR 1017) TSH, THIRD [id number] 00:00:00 Test Item Value Reference Range Interpretation Comments TSH, THIRD GENERATION (test code 1.220 UIU/ML = 2821) TSH, THIRD [id number] 00:00:00 Test Item Value Reference Range Interpretation Comments TSH, THIRD GENERATION (test code 1.220 UIU/ML = 2821) TSH, THIRD [id number] 00:00:00 Test Item Value Reference Range Interpretation Comments TSH, THIRD GENERATION (test code 1.220 UIU/ML = 2821) CCP [id number] 00:00:00 Test Item Value Reference Range Interpretation Comments CCP IgG (test code = 21570) <0.5 U/ML CCP [id number] 00:00:00 Test Item Value Reference Range Interpretation Comments CCP IgG (test code = 88685) <0.5 U/ML CCP [id number] 00:00:00 Test Item Value Reference Range Interpretation Comments CCP IgG (test code = 61347) <0.5 U/ML RHEUMATOID FACTOR, [id number] 00:00:00 Test Item Value Reference Range Interpretation Comments RHEUMATOID FACTOR, QUANT (test code <10 IU/ML = 3502) RHEUMATOID FACTOR, [id number] 00:00:00 Test Item Value Reference Range Interpretation Comments RHEUMATOID FACTOR, QUANT (test code <10 IU/ML = 3502) RHEUMATOID FACTOR, [id number] 00:00:00 Test Item Value Reference Range Interpretation Comments RHEUMATOID FACTOR, QUANT (test code <10 IU/ML = 3502) URIC [id number] 00:00:00 Test Item Value Reference Range Interpretation Comments URIC ACID (test code = 2233) 7.4 MG/DL URIC [id number] 00:00:00 Test Item Value Reference Range Interpretation Comments URIC ACID (test code = 2233) 7.4 MG/DL HEMOGLOBIN [id number] 00:00:00 Test Item Value Reference Range Interpretation Comments HEMOGLOBIN A1c (test code = 05879) 5.4 % HEMOGLOBIN [id number] 00:00:00 Test Item Value Reference Range Interpretation Comments HEMOGLOBIN A1c (test code = 76133) 5.4 % HEMOGLOBIN [id number] 00:00:00 Test Item Value Reference Range Interpretation Comments HEMOGLOBIN A1c (test code = 75851) 5.4 % COMPREHENSIVE METABOLIC [id number] 00:00:00 Test Item Value Reference Range Interpretation Comments GLUCOSE (test code = 2217) 88 MG/DL BUN (test code = 2208) 14 MG/DL CREATININE (test code = 2214) 0.71 MG/DL eGFR (2020 CKD-EPI) (test 101 ML/MIN/1.73 code = 09396) CALC BUN/CREAT (test code = 20 RATIO [...] code = 2219) 33 U/L COMPREHENSIVE METABOLIC [id number] 00:00:00 Test Item Value Reference Range Interpretation Comments GLUCOSE (test code = 2217) 88 MG/DL BUN (test code = 2208) 14 MG/DL CREATININE (test code = 2214) 0.71 MG/DL eGFR (2020 CKD-EPI) (test 101 ML/MIN/1.73 code = 50847) CALC BUN/CREAT (test code = 20 RATIO [...] (test code = 2219) 33 U/L LIPID [id number] 00:00:00 Test Item Value Reference Range Interpretation Comments CHOLESTEROL (test code = 2210) 135 MG/DL TRIGLYCERIDES (test code = 2232) 147 MG/DL HDL CHOLESTEROL (test code = 2220) 31 MG/DL CALC LDL CHOL (test code = 2237) 80 MG/DL RISK RATIO LDL/HDL (test code = 2.58 RATIO 2238) LIPID [id number] 00:00:00 Test Item Value Reference Range Interpretation Comments CHOLESTEROL (test code = 2210) 135 MG/DL TRIGLYCERIDES (test code = 2232) 147 MG/DL HDL CHOLESTEROL (test code = 2220) 31 MG/DL CALC LDL CHOL (test code = 2237) 80 MG/DL RISK RATIO LDL/HDL (test code = 2.58 RATIO 2238) SEDIMENTATION [id number] 00:00:00 Test Item Value Reference Range Interpretation Comments SEDIMENTATION RATE (test code = 2 MM/HOUR 1017) SEDIMENTATION [id number] 00:00:00 Test Item Value Reference Range Interpretation Comments SEDIMENTATION RATE (test code = 2 MM/HOUR 1017) TSH, THIRD [id number] 00:00:00 Test Item Value Reference Range Interpretation Comments TSH, THIRD GENERATION (test code 1.220 UIU/ML = 2821) TSH, THIRD [id number] 00:00:00 Test Item Value Reference Range Interpretation Comments TSH, THIRD GENERATION (test code 1.220 UIU/ML = 2821) TSH, THIRD [id number] 00:00:00 Test Item Value Reference Range Interpretation Comments TSH, THIRD GENERATION (test code 1.220 UIU/ML = 2821) CCP [id number] 00:00:00 Test Item Value Reference Range Interpretation Comments CCP IgG (test code = 11669) <0.5 U/ML CCP [id number] 00:00:00 Test Item Value Reference Range Interpretation Comments CCP IgG (test code = 93272) <0.5 U/ML CCP [id number] 00:00:00 Test Item Value Reference Range Interpretation Comments CCP IgG (test code = 35703) <0.5 U/ML RHEUMATOID FACTOR, [id number] 00:00:00 Test Item Value Reference Range Interpretation Comments RHEUMATOID FACTOR, QUANT (test code <10 IU/ML = 3502) RHEUMATOID FACTOR, [id number] 00:00:00 Test Item Value Reference Range Interpretation Comments RHEUMATOID FACTOR, QUANT (test code <10 IU/ML = 3502) RHEUMATOID FACTOR, [id number] 00:00:00 Test Item Value Reference Range Interpretation Comments RHEUMATOID FACTOR, QUANT (test code <10 IU/ML = 3502) URIC [id number] 00:00:00 Test Item Value Reference Range Interpretation Comments URIC ACID (test code = 2233) 7.4 MG/DL URIC [id number] 00:00:00 Test Item Value Reference Range Interpretation Comments URIC ACID (test code = 2233) 7.4 MG/DL HEMOGLOBIN [id number] 00:00:00 Test Item Value Reference Range Interpretation Comments HEMOGLOBIN A1c (test code = 74089) 5.4 % HEMOGLOBIN [id number] 00:00:00 Test Item Value Reference Range Interpretation Comments HEMOGLOBIN A1c (test code = 61320) 5.4 % HEMOGLOBIN [id number] 00:00:00 Test Item Value Reference Range Interpretation Comments HEMOGLOBIN A1c (test code = 34733) 5.4 % COMPREHENSIVE METABOLIC [id number] 00:00:00 Test Item Value Reference Range Interpretation Comments GLUCOSE (test code = 2217) 88 MG/DL BUN (test code = 2208) 14 MG/DL CREATININE (test code = 2214) 0.71 MG/DL eGFR (2020 CKD-EPI) (test 101 ML/MIN/1.73 code = 33354) CALC BUN/CREAT (test code = 20 RATIO [...] code = 2219) 33 U/L COMPREHENSIVE METABOLIC [id number] 00:00:00 Test Item Value Reference Range Interpretation Comments GLUCOSE (test code = 2217) 88 MG/DL BUN (test code = 2208) 14 MG/DL CREATININE (test code = 2214) 0.71 MG/DL eGFR (2020 CKD-EPI) (test 101 ML/MIN/1.73 code = 13444) CALC BUN/CREAT (test code = 20 RATIO 2235) SODIUM (test code = 2231) 140 MEQ/L POTASSIUM (test code = 2228) 4.4 MEQ/L CHLORIDE (test code = 2215) 106 MEQ/L CARBON DIOXIDE (test code = 19 MEQ/L 2205) CALCIUM (test code = 220) 11.2 MG/DL PROTEIN, TOTAL (test code = [...] (test code = 2219) 33 U/L LIPID [id number] 00:00:00 Test Item Value Reference Range Interpretation Comments CHOLESTEROL (test code = 2210) 135 MG/DL TRIGLYCERIDES (test code = 2232) 147 MG/DL HDL CHOLESTEROL (test code = 2220) 31 MG/DL CALC LDL CHOL (test code = 2237) 80 MG/DL RISK RATIO LDL/HDL (test code = 2.58 RATIO 2238) LIPID [id number] 00:00:00 Test Item Value Reference Range Interpretation Comments CHOLESTEROL (test code = 2210) 135 MG/DL TRIGLYCERIDES (test code = 2232) 147 MG/DL HDL CHOLESTEROL (test code = 2220) 31 MG/DL CALC LDL CHOL (test code = 2237) 80 MG/DL RISK RATIO LDL/HDL (test code = 2.58 RATIO 2238) SEDIMENTATION [id number] 00:00:00 Test Item Value Reference Range Interpretation Comments SEDIMENTATION RATE (test code = 2 MM/HOUR 1017) SEDIMENTATION [id number] 00:00:00 Test Item Value Reference Range Interpretation Comments SEDIMENTATION RATE (test code = 2 MM/HOUR 1017) TSH, THIRD [id number] 00:00:00 Test Item Value Reference Range Interpretation Comments TSH, THIRD GENERATION (test code 1.220 UIU/ML = 2821) TSH, THIRD [id number] 00:00:00 Test Item Value Reference Range Interpretation Comments TSH, THIRD GENERATION (test code 1.220 UIU/ML = 2821) TSH, THIRD [id number] 00:00:00 Test Item Value Reference Range Interpretation Comments TSH, THIRD GENERATION (test code 1.220 UIU/ML = 2821) CCP [id number] 00:00:00 Test Item Value Reference Range Interpretation Comments CCP IgG (test code = 33165) <0.5 U/ML CCP [id number] 00:00:00 Test Item Value Reference Range Interpretation Comments CCP IgG (test code = 38457) <0.5 U/ML CCP [id number] 00:00:00 Test Item Value Reference Range Interpretation Comments CCP IgG (test code = 99912) <0.5 U/ML RHEUMATOID FACTOR, [id number] 00:00:00 Test Item Value Reference Range Interpretation Comments RHEUMATOID FACTOR, QUANT (test code <10 IU/ML = 3502) HEPATITIS PANEL, [id number] 04:33:04 Test Item Value Reference Range Interpretation [...] B: (test serology shows no code = 05486) evidence of pa st exposure to orcurrent infec tion with hepatitis B virus. No evide nce of hepatitis Bimmunization i s identified. INTERPRETATION (NOTE) Hepatitis C HEPATITIS C: (test serology shows no code = 09153) evidence of ex posure to hepatitisC v irus at this time. I t can take up to 12 m onths after exposure tothe hepatitis C vir us for antibodies to become detectab le in the blood in ce rtain patients. [id number] 03:36:41 Test Item Value Reference Range Interpretation Comments GGT (test code = 39 U/L <40 UNLESS OTH ERWISE INDICATED, 2215) ALL TESTING PER [facility], [address], [place] [address] LABORATORY DIRE CTOR: TANNER VELASQUEZ M.D. CLIA NUMBER [id number] [facility] [place]. [id number] COMPREHENSIVE METABOLIC [id number] 03:35:34 Test Item Value Reference Range Interpretation Comments GLUCOSE (test code = 98 MG/DL 70-99 2216) BUN (test code = 12 MG/DL 6-20 2207) CREATININE (test 0.70 MG/DL 0.60-1.30 code = 2214) eGFR (2020 CKD-EPI) 103 >60 (test code = 97118) ML/MIN/1.73 CALC BUN/CREAT (test 17 RATIO 6-28 code = 2235) SODIUM (test code = 140 MEQ/L 834-489 3332) POTASSIUM (test code 4.6 MEQ/L 3.5-5.4 = [...] AST (test code = 17 U/L 9-40 8) ALT (test code = 29 U/L 5-40 221) COMPREHENSIVE METABOLIC [id number] 00:00:00 Test Item Value Reference Range Interpretation Comments GLUCOSE (test code = 2217) 98 MG/DL BUN (test code = 2208) 12 MG/DL CREATININE (test code = 2214) 0.70 MG/DL eGFR (2020 CKD-EPI) (test 103 ML/MIN/1.73 code = 62786) CALC BUN/CREAT (test code = 17 RATIO [...] code = 2219) 29 U/L COMPREHENSIVE METABOLIC [id number] 00:00:00 Test Item Value Reference Range Interpretation Comments GLUCOSE (test code = 2217) 98 MG/DL BUN (test code = 2208) 12 MG/DL CREATININE (test code = 2214) 0.70 MG/DL eGFR (2020 CKD-EPI) (test 103 ML/MIN/1.73 code = 57660) CALC BUN/CREAT (test code = 17 RATIO [...] INTERPRETATION HEPATITIS B: (NOTE) (test code = 59442) INTERPRETATION HEPATITIS C: (NOTE) (test code = 64975) HEPATITIS PROFILE (A,B,C)2021-10-14 00:00:00 Test Item Value [...] INTERPRETATION HEPATITIS B: (NOTE) (test code = 81104) INTERPRETATION HEPATITIS C: (NOTE) (test code = 91052) [id number] 00:00:00 Test Item Value Reference Range Interpretation Comments GGT (test code = 2216) 39 U/L [id number] 00:00:00 Test Item Value Reference Range Interpretation Comments GGT (test code = 2216) 39 U/L COMPREHENSIVE METABOLIC [id number] 00:00:00 Test Item Value Reference Range Interpretation Comments GLUCOSE (test code = 2217) 98 MG/DL BUN (test code = 2208) 12 MG/DL CREATININE (test code = 2214) 0.70 MG/DL eGFR (2020 CKD-EPI) (test 103 ML/MIN/1.73 code = 97227) CALC BUN/CREAT (test code = 17 RATIO [...] code = 2219) 29 U/L COMPREHENSIVE METABOLIC [id number] 00:00:00 Test Item Value Reference Range Interpretation Comments GLUCOSE (test code = 2217) 98 MG/DL BUN (test code = 2208) 12 MG/DL CREATININE (test code = 2214) 0.70 MG/DL eGFR (2020 CKD-EPI) (test 103 ML/MIN/1.73 code = 17666) CALC BUN/CREAT (test code = 17 RATIO [...] INTERPRETATION HEPATITIS B: (NOTE) (test code = 96215) INTERPRETATION HEPATITIS C: (NOTE) (test code = 97539) HEPATITIS PROFILE (A,B,C)2021-10-14 00:00:00 Test Item Value [...] INTERPRETATION HEPATITIS B: (NOTE) (test code = 37956) INTERPRETATION HEPATITIS C: (NOTE) (test code = 80307) [id number] 00:00:00 Test Item Value Reference Range Interpretation Comments GGT (test code = 2216) 39 U/L [id number] 00:00:00 Test Item Value Reference Range Interpretation Comments GGT (test code = 2216) 39 U/L COMPREHENSIVE METABOLIC [id number] 00:00:00 Test Item Value Reference Range Interpretation Comments GLUCOSE (test code = 2217) 98 MG/DL BUN (test code = 2208) 12 MG/DL CREATININE (test code = 2214) 0.70 MG/DL eGFR (2020 CKD-EPI) (test 103 ML/MIN/1.73 code = 41962) CALC BUN/CREAT (test code = 17 RATIO [...] code = 2219) 29 U/L COMPREHENSIVE METABOLIC [id number] 00:00:00 Test Item Value Reference Range Interpretation Comments GLUCOSE (test code = 2217) 98 MG/DL BUN (test code = 2208) 12 MG/DL CREATININE (test code = 2214) 0.70 MG/DL eGFR (2020 CKD-EPI) (test 103 ML/MIN/1.73 code = 95593) CALC BUN/CREAT (test code = 17 RATIO [...] A TOTAL AB (test code NON-REACTIVE = 5) HEPATITIS B SURF AG (test code = NON-REACTIVE 2738) HEP B CORE TOTAL AB (test code = NON-REACTIVE 2728) HEPATITIS B SURFACE AB (test NON-REACTIVE code = 2737) HEPATITIS C ANTIBODY (test code NON-REACTIVE = 4675) INTERPRETATION HEPATITIS A: (NOTE) (test code = 2552) INTERPRETATION HEPATITIS B: (NOTE) (test code = 64493) INTERPRETATION HEPATITIS C: (NOTE) (test code = 85050) HEPATITIS PROFILE (A,B,C)2021-10-14 00:00:00 Test Item Value [...] INTERPRETATION HEPATITIS B: (NOTE) (test code = 21781) INTERPRETATION HEPATITIS C: (NOTE) (test code = 58526) [id number] 00:00:00 Test Item Value Reference Range Interpretation Comments GGT (test code = 2216) 39 U/L [id number] 00:00:00 Test Item Value Reference Range Interpretation Comments GGT (test code = 2216) 39 U/L COMPREHENSIVE METABOLIC [id number] 00:00:00 Test Item Value Reference Range Interpretation Comments GLUCOSE (test code = 2217) 98 MG/DL BUN (test code = 2208) 12 MG/DL CREATININE (test code = 2214) 0.70 MG/DL eGFR (2020 CKD-EPI) (test 103 ML/MIN/1.73 code = 88942) CALC BUN/CREAT (test code = 17 RATIO [...] code = 2219) 29 U/L COMPREHENSIVE METABOLIC [id number] 00:00:00 Test Item Value Reference Range Interpretation Comments GLUCOSE (test code = 2217) 98 MG/DL BUN (test code = 2208) 12 MG/DL CREATININE (test code = 2214) 0.70 MG/DL eGFR (2020 CKD-EPI) (test 103 ML/MIN/1.73 code = 74049) CALC BUN/CREAT (test code = 17 RATIO [...] INTERPRETATION HEPATITIS B: (NOTE) (test code = 70656) INTERPRETATION HEPATITIS C: (NOTE) (test code = 31021) HEPATITIS PROFILE (A,B,C)2021-10-14 00:00:00 Test Item Value [...] INTERPRETATION HEPATITIS B: (NOTE) (test code = 22593) INTERPRETATION HEPATITIS C: (NOTE) (test code = 45549) [id number] 00:00:00 Test Item Value Reference Range Interpretation Comments GGT (test code = 2216) 39 U/L [id number] 00:00:00 Test Item Value Reference Range Interpretation Comments GGT (test code = 2216) 39 U/L COMPREHENSIVE METABOLIC [id number] 00:00:00 Test Item Value Reference Range Interpretation Comments GLUCOSE (test code = 2217) 98 MG/DL BUN (test code = 2208) 12 MG/DL CREATININE (test code = 2214) 0.70 MG/DL eGFR (2020 CKD-EPI) (test 103 ML/MIN/1.73 code = 88239) CALC BUN/CREAT (test code = 17 RATIO [...] code = 2219) 29 U/L COMPREHENSIVE METABOLIC [id number] 00:00:00 Test Item Value Reference Range Interpretation Comments GLUCOSE (test code = 2217) 98 MG/DL BUN (test code = 2208) 12 MG/DL CREATININE (test code = 2214) 0.70 MG/DL eGFR (2020 CKD-EPI) (test 103 ML/MIN/1.73 code = 36932) CALC BUN/CREAT (test code = 17 RATIO [...] INTERPRETATION HEPATITIS B: (NOTE) (test code = 25852) INTERPRETATION HEPATITIS C: (NOTE) (test code = 40485) HEPATITIS PROFILE (A,B,C)2021-10-14 00:00:00 Test Item Value [...] INTERPRETATION HEPATITIS B: (NOTE) (test code = 73136) INTERPRETATION HEPATITIS C: (NOTE) (test code = 46507) [id number] 00:00:00 Test Item Value Reference Range Interpretation Comments GGT (test code = 2216) 39 U/L [id number] 00:00:00 Test Item Value Reference Range Interpretation Comments GGT (test code = 2216) 39 U/L COMPREHENSIVE METABOLIC [id number] 00:00:00 Test Item Value Reference Range Interpretation Comments GLUCOSE (test code = 2217) 98 MG/DL BUN (test code = 2208) 12 MG/DL CREATININE (test code = 2214) 0.70 MG/DL eGFR (2020 CKD-EPI) (test 103 ML/MIN/1.73 code = 66483) CALC BUN/CREAT (test code = 17 RATIO [...] code = 2219) 29 U/L COMPREHENSIVE METABOLIC [id number] 00:00:00 Test Item Value Reference Range Interpretation Comments GLUCOSE (test code = 2217) 98 MG/DL BUN (test code = 2208) 12 MG/DL CREATININE (test code = 2214) 0.70 MG/DL eGFR (2020 CKD-EPI) (test 103 ML/MIN/1.73 code = 65070) CALC BUN/CREAT (test code = 17 RATIO [...] INTERPRETATION HEPATITIS B: (NOTE) (test code = 07167) INTERPRETATION HEPATITIS C: (NOTE) (test code = 03120) HEPATITIS PROFILE (A,B,C)2021-10-14 00:00:00 Test Item Value [...] INTERPRETATION HEPATITIS B: (NOTE) (test code = 29200) INTERPRETATION HEPATITIS C: (NOTE) (test code = 20105) [id number] 00:00:00 Test Item Value Reference Range Interpretation Comments GGT (test code = 2216) 39 U/L [id number] 00:00:00 Test Item Value Reference Range Interpretation Comments GGT (test code = 2216) 39 U/L COMPREHENSIVE METABOLIC [id number] 00:00:00 Test Item Value Reference Range Interpretation Comments GLUCOSE (test code = 2217) 98 MG/DL BUN (test code = 2208) 12 MG/DL CREATININE (test code = 2214) 0.70 MG/DL eGFR (2020 CKD-EPI) (test 103 ML/MIN/1.73 code = 08165) CALC BUN/CREAT (test code = 17 RATIO [...] code = 2219) 29 U/L COMPREHENSIVE METABOLIC [id number] 00:00:00 Test Item Value Reference Range Interpretation Comments GLUCOSE (test code = 2217) 98 MG/DL BUN (test code = 2208) 12 MG/DL CREATININE (test code = 2214) 0.70 MG/DL eGFR (2020 CKD-EPI) (test 103 ML/MIN/1.73 code = 64776) CALC BUN/CREAT (test code = 17 RATIO [...] INTERPRETATION HEPATITIS B: (NOTE) (test code = 93617) INTERPRETATION HEPATITIS C: (NOTE) (test code = 24789) HEPATITIS PROFILE (A,B,C)2021-10-14 00:00:00 Test Item Value [...] INTERPRETATION HEPATITIS B: (NOTE) (test code = 76329) INTERPRETATION HEPATITIS C: (NOTE) (test code = 31831) [id number] 00:00:00 Test Item Value Reference Range Interpretation Comments GGT (test code = 2216) 39 U/L [id number] 00:00:00 Test Item Value Reference Range Interpretation Comments GGT (test code = 2216) 39 U/L COMPREHENSIVE METABOLIC [id number] 00:00:00 Test Item Value Reference Range Interpretation Comments GLUCOSE (test code = 2217) 98 MG/DL BUN (test code = 2208) 12 MG/DL CREATININE (test code = 2214) 0.70 MG/DL eGFR (2020 CKD-EPI) (test 103 ML/MIN/1.73 code = 67716) CALC BUN/CREAT (test code = 17 RATIO [...] code = 2219) 29 U/L COMPREHENSIVE METABOLIC [id number] 00:00:00 Test Item Value Reference Range Interpretation Comments GLUCOSE (test code = 2217) 98 MG/DL BUN (test code = 2208) 12 MG/DL CREATININE (test code = 2214) 0.70 MG/DL eGFR (2020 CKD-EPI) (test 103 ML/MIN/1.73 code = 55467) CALC BUN/CREAT (test code = 17 RATIO [...] INTERPRETATION HEPATITIS B: (NOTE) (test code = 22132) INTERPRETATION HEPATITIS C: (NOTE) (test code = 14833) HEPATITIS PROFILE (A,B,C)2021-10-14 00:00:00 Test Item Value [...] INTERPRETATION HEPATITIS B: (NOTE) (test code = 25979) INTERPRETATION HEPATITIS C: (NOTE) (test code = 92619) [id number] 00:00:00 Test Item Value Reference Range Interpretation Comments GGT (test code = 2216) 39 U/L [id number] 00:00:00 Test Item Value Reference Range Interpretation Comments GGT (test code = 2216) 39 U/L COMPREHENSIVE METABOLIC [id number] 00:00:00 Test Item Value Reference Range Interpretation Comments GLUCOSE (test code = 2217) 98 MG/DL BUN (test code = 2208) 12 MG/DL CREATININE (test code = 2214) 0.70 MG/DL eGFR (2020 CKD-EPI) (test 103 ML/MIN/1.73 code = 59113) CALC BUN/CREAT (test code = 17 RATIO [...] code = 2219) 29 U/L COMPREHENSIVE METABOLIC [id number] 00:00:00 Test Item Value Reference Range Interpretation Comments GLUCOSE (test code = 2217) 98 MG/DL BUN (test code = 2208) 12 MG/DL CREATININE (test code = 2214) 0.70 MG/DL eGFR (2020 CKD-EPI) (test 103 ML/MIN/1.73 code = 53636) CALC BUN/CREAT (test code = 17 RATIO [...] INTERPRETATION HEPATITIS B: (NOTE) (test code = 96932) INTERPRETATION HEPATITIS C: (NOTE) (test code = 93132) HEPATITIS PROFILE (A,B,C)2021-10-14 00:00:00 Test Item Value [...] INTERPRETATION HEPATITIS B: (NOTE) (test code = 12432) INTERPRETATION HEPATITIS C: (NOTE) (test code = 25459) [id number] 00:00:00 Test Item Value Reference Range Interpretation Comments GGT (test code = 2216) 39 U/L [id number] 00:00:00 Test Item Value Reference Range Interpretation Comments GGT (test code = 2216) 39 U/L COMPREHENSIVE METABOLIC [id number] 00:00:00 Test Item Value Reference Range Interpretation Comments GLUCOSE (test code = 2217) 98 MG/DL BUN (test code = 2208) 12 MG/DL CREATININE (test code = 2214) 0.70 MG/DL eGFR (2020 CKD-EPI) (test 103 ML/MIN/1.73 code = 44717) CALC BUN/CREAT (test code = 17 RATIO [...] code = 2219) 29 U/L COMPREHENSIVE METABOLIC [id number] 00:00:00 Test Item Value Reference Range Interpretation Comments GLUCOSE (test code = 2217) 98 MG/DL BUN (test code = 2208) 12 MG/DL CREATININE (test code = 2214) 0.70 MG/DL eGFR (2020 CKD-EPI) (test 103 ML/MIN/1.73 code = 58186) CALC BUN/CREAT (test code = 17 RATIO [...] INTERPRETATION HEPATITIS B: (NOTE) (test code = 76596) INTERPRETATION HEPATITIS C: (NOTE) (test code = 62415) HEPATITIS PROFILE (A,B,C)2021-10-14 00:00:00 Test Item Value [...] INTERPRETATION HEPATITIS B: (NOTE) (test code = 65526) INTERPRETATION HEPATITIS C: (NOTE) (test code = 18602) [id number] 00:00:00 Test Item Value Reference Range Interpretation Comments GGT (test code = 2216) 39 U/L [id number] 00:00:00 Test Item Value Reference Range Interpretation Comments GGT (test code = 2216) 39 U/L COMPREHENSIVE METABOLIC [id number] 00:00:00 Test Item Value Reference Range Interpretation Comments GLUCOSE (test code = 2217) 98 MG/DL BUN (test code = 2208) 12 MG/DL CREATININE (test code = 2214) 0.70 MG/DL eGFR (2020 CKD-EPI) (test 103 ML/MIN/1.73 code = 78195) CALC BUN/CREAT (test code = 17 RATIO [...] code = 2219) 29 U/L COMPREHENSIVE METABOLIC [id number] 00:00:00 Test Item Value Reference Range Interpretation Comments GLUCOSE (test code = 2217) 98 MG/DL BUN (test code = 2208) 12 MG/DL CREATININE (test code = 2214) 0.70 MG/DL eGFR (2020 CKD-EPI) (test 103 ML/MIN/1.73 code = 28305) CALC BUN/CREAT (test code = 17 RATIO [...] INTERPRETATION HEPATITIS B: (NOTE) (test code = 55907) INTERPRETATION HEPATITIS C: (NOTE) (test code = 21258) HEPATITIS PROFILE (A,B,C)2021-10-14 00:00:00 Test Item Value [...] INTERPRETATION HEPATITIS B: (NOTE) (test code = 45514) INTERPRETATION HEPATITIS C: (NOTE) (test code = 14024) [id number] 00:00:00 Test Item Value Reference Range Interpretation Comments GGT (test code = 2216) 39 U/L [id number] 00:00:00 Test Item Value Reference Range Interpretation Comments GGT (test code = 2216) 39 U/L COMPREHENSIVE METABOLIC [id number] 00:00:00 Test Item Value Reference Range Interpretation Comments GLUCOSE (test code = 2217) 98 MG/DL BUN (test code = 2208) 12 MG/DL CREATININE (test code = 2214) 0.70 MG/DL eGFR (2020 CKD-EPI) (test 103 ML/MIN/1.73 code = 55058) CALC BUN/CREAT (test code = 17 RATIO [...] code = 2219) 29 U/L COMPREHENSIVE METABOLIC [id number] 00:00:00 Test Item Value Reference Range Interpretation Comments GLUCOSE (test code = 2217) 98 MG/DL BUN (test code = 2208) 12 MG/DL CREATININE (test code = 2214) 0.70 MG/DL eGFR (2020 CKD-EPI) (test 103 ML/MIN/1.73 code = 22088) CALC BUN/CREAT (test code = 17 RATIO [...] A TOTAL AB (test code NON-REACTIVE = 5915) HEPATITIS B SURF AG (test code = NON-REACTIVE 2738) HEP B CORE TOTAL AB (test code = NON-REACTIVE 2728) HEPATITIS B SURFACE AB (test NON-REACTIVE code = 7) HEPATITIS C ANTIBODY (test code NON-REACTIVE = 4675) INTERPRETATION HEPATITIS A: (NOTE) (test code = 2552) INTERPRETATION HEPATITIS B: (NOTE) (test code = 80951) INTERPRETATION HEPATITIS C: (NOTE) (test code = 42322) HEPATITIS PROFILE (A,B,C)2021-10-14 00:00:00 Test Item Value [...] INTERPRETATION HEPATITIS B: (NOTE) (test code = 87180) INTERPRETATION HEPATITIS C: (NOTE) (test code = 91007) [id number] 00:00:00 Test Item Value Reference Range Interpretation Comments GGT (test code = 2216) 39 U/L [id number] 00:00:00 Test Item Value Reference Range Interpretation Comments GGT (test code = 2216) 39 U/L CALCIUM, URINE, 24 [id number] 07:02:15 Test Item Value Reference Range Interpretation Comments CALCIUM, URINE, 12 MG/DL NOT ESTAB CONC. (test code = 2098) CALCIUM, URINE, 360 MG/24 HR 100-300 H 24 HR (test code = 2065) TOTAL URINE 3000 ML 500-3500 UNLESS OTHERWI SE VOLUME (test code INDICATED, ALL TESTING = 2055) [facility] [address] [place] [address] 4 LABORATORY DIRE CTOR: TANNER HOPKINS M.D. CLIA NUMBER [id number] [place] [id number] CALCIUM, URINE, 24 [id number] 00:00:00 Test Item Value Reference Range Interpretation Comments CALCIUM, URINE, CONC. (test code 12 MG/DL = 2098) CALCIUM, URINE, 24 HR (test code 360 MG/24HR = 2065) TOTAL URINE VOLUME (test code = 3000 ML 2055) CALCIUM, URINE, 24 [id number] 00:00:00 Test Item Value Reference Range Interpretation Comments CALCIUM, URINE, CONC. (test code 12 MG/DL = 2098) CALCIUM, URINE, 24 HR (test code 360 MG/24HR = 2065) TOTAL URINE VOLUME (test code = 3000 ML 2055) CALCIUM, URINE, 24 [id number] 00:00:00 Test Item Value Reference Range Interpretation Comments CALCIUM, URINE, CONC. (test code 12 MG/DL = 2098) CALCIUM, URINE, 24 HR (test code 360 MG/24HR = 2065) TOTAL URINE VOLUME (test code = 3000 ML 2055) CALCIUM, URINE, 24 [id number] 00:00:00 Test Item Value Reference Range Interpretation Comments CALCIUM, URINE, CONC. (test code 12 MG/DL = 2098) CALCIUM, URINE, 24 HR (test code 360 MG/24HR = 2065) TOTAL URINE VOLUME (test code = 3000 ML 2055) CALCIUM, URINE, 24 [id number] 00:00:00 Test Item Value Reference Range Interpretation Comments CALCIUM, URINE, CONC. (test code 12 MG/DL = 2098) CALCIUM, URINE, 24 HR (test code 360 MG/24HR = 2065) TOTAL URINE VOLUME (test code = 3000 ML 2055) CALCIUM, URINE, 24 [id number] 00:00:00 Test Item Value Reference Range Interpretation Comments CALCIUM, URINE, CONC. (test code 12 MG/DL = 2098) CALCIUM, URINE, 24 HR (test code 360 MG/24HR = 2065) TOTAL URINE VOLUME (test code = 3000 ML 2055) CALCIUM, URINE, 24 [id number] 00:00:00 Test Item Value Reference Range Interpretation Comments CALCIUM, URINE, CONC. (test code 12 MG/DL = 2098) CALCIUM, URINE, 24 HR (test code 360 MG/24HR = 2065) TOTAL URINE VOLUME (test code = 3000 ML 2055) CALCIUM, URINE, 24 [id number] 00:00:00 Test Item Value Reference Range Interpretation Comments CALCIUM, URINE, CONC. (test code 12 MG/DL = 2098) CALCIUM, URINE, 24 HR (test code 360 MG/24HR = 2065) TOTAL URINE VOLUME (test code = 3000 ML 2055) CALCIUM, URINE, 24 [id number] 00:00:00 Test Item Value Reference Range Interpretation Comments CALCIUM, URINE, CONC. (test code 12 MG/DL = 209) CALCIUM, URINE, 24 HR (test code 360 MG/24HR = 2065) TOTAL URINE VOLUME (test code = 3000 ML 2055) CALCIUM, URINE, 24 [id number] 00:00:00 Test Item Value Reference Range Interpretation Comments CALCIUM, URINE, CONC. (test code 12 MG/DL = 2098) CALCIUM, URINE, 24 HR (test code 360 MG/24HR = 2065) TOTAL URINE VOLUME (test code = 3000 ML 2055) CALCIUM, URINE, 24 [id number] 00:00:00 Test Item Value Reference Range Interpretation Comments CALCIUM, URINE, CONC. (test code 12 MG/DL = 2098) CALCIUM, URINE, 24 HR (test code 360 MG/24HR = 2065) TOTAL URINE VOLUME (test code = 3000 ML 2055) CALCIUM, URINE, 24 [id number] 00:00:00 Test Item Value Reference Range Interpretation Comments CALCIUM, URINE, CONC. (test code 12 MG/DL = 2098) CALCIUM, URINE, 24 HR (test code 360 MG/24HR = 2065) TOTAL URINE VOLUME (test code = 3000 ML 2055) CALCIUM, URINE, 24 [id number] 00:00:00 Test Item Value Reference Range Interpretation Comments CALCIUM, URINE, CONC. (test code 12 MG/DL = 2098) CALCIUM, URINE, 24 HR (test code 360 MG/24HR = 2065) TOTAL URINE VOLUME (test code = 3000 ML 2055) CALCIUM, URINE, 24 [id number] 00:00:00 Test Item Value Reference Range Interpretation Comments CALCIUM, URINE, CONC. (test code 12 MG/DL = 2098) CALCIUM, URINE, 24 HR (test code 360 MG/24HR = 2065) TOTAL URINE VOLUME (test code = 3000 ML 2055) CALCIUM, URINE, 24 [id number] 00:00:00 Test Item Value Reference Range Interpretation Comments CALCIUM, URINE, CONC. (test code 12 MG/DL = 2098) CALCIUM, URINE, 24 HR (test code 360 MG/24HR = 2065) TOTAL URINE VOLUME (test code = 3000 ML 2055) CALCIUM, URINE, 24 [id number] 00:00:00 Test Item Value Reference Range Interpretation Comments CALCIUM, URINE, CONC. (test code 12 MG/DL = 209) CALCIUM, URINE, 24 HR (test code 360 MG/24HR = 2065) TOTAL URINE VOLUME (test code = 3000 ML 2055) CALCIUM, URINE, 24 [id number] 00:00:00 Test Item Value Reference Range Interpretation Comments CALCIUM, URINE, CONC. (test code 12 MG/DL = 209) CALCIUM, URINE, 24 HR (test code 360 MG/24HR = 2065) TOTAL URINE VOLUME (test code = 3000 ML 2055) CALCIUM, URINE, 24 [id number] 00:00:00 Test Item Value Reference Range Interpretation Comments CALCIUM, URINE, CONC. (test code 12 MG/DL = 2098) CALCIUM, URINE, 24 HR (test code 360 MG/24HR = 2065) TOTAL URINE VOLUME (test code = 3000 ML 2055) CALCIUM, URINE, 24 [id number] 00:00:00 Test Item Value Reference Range Interpretation Comments CALCIUM, URINE, CONC. (test code 12 MG/DL = 2098) CALCIUM, URINE, 24 HR (test code 360 MG/24HR = 2065) TOTAL URINE VOLUME (test code = 3000 ML 2055) CALCIUM, URINE, 24 [id number] 00:00:00 Test Item Value Reference Range Interpretation Comments CALCIUM, URINE, CONC. (test code 12 MG/DL = 2098) CALCIUM, URINE, 24 HR (test code 360 MG/24HR = 2065) TOTAL URINE VOLUME (test code = 3000 ML 2055) CALCIUM, URINE, 24 [id number] 00:00:00 Test Item Value Reference Range Interpretation Comments CALCIUM, URINE, CONC. (test code 12 MG/DL = 2098) CALCIUM, URINE, 24 HR (test code 360 MG/24HR = 2065) TOTAL URINE VOLUME (test code = 3000 ML 2055) CALCIUM, URINE, 24 [id number] 00:00:00 Test Item Value Reference Range Interpretation Comments CALCIUM, URINE, CONC. (test code 12 MG/DL = 209) CALCIUM, URINE, 24 HR (test code 360 MG/24HR = 2065) TOTAL URINE VOLUME (test code = 3000 ML 2055) CALCIUM, URINE, 24 [id number] 00:00:00 Test Item Value Reference Range Interpretation Comments CALCIUM, URINE, CONC. (test code 12 MG/DL = 209) CALCIUM, URINE, 24 HR (test code 360 MG/24HR = 2065) TOTAL URINE VOLUME (test code = 3000 ML 2055) CALCIUM, URINE, 24 [id number] 00:00:00 Test Item Value Reference Range Interpretation Comments CALCIUM, URINE, CONC. (test code 12 MG/DL = 2098) CALCIUM, URINE, 24 HR (test code 360 MG/24HR = 2065) TOTAL URINE VOLUME (test code = 3000 ML 2055) FUROSEMIDE, [id number] 10:22:19 Test Item Value Reference Range Interpretation Comments FUROSEMIDE, None Det ng/mL Reporting Rubi it: 100 SERUM (test ng/mLMean peak serum code = 09817) levels of 2300 +/- 500 ng/mL wereobtai carey approximately 1 hour after a single oral dose of 80 mg furose mide in fasting subject s.This test was devtaryno ped and its performance characteristics determined by [facility]. It has not been cleared or [...] an y result. TESTING PERFORM ED AT [facility] [address] [place] [address] 190 44 CLIA [place]. [id number] [place] [id number] FUROSEMIDE, [id number] 00:00:00 Test Item Value Reference Range Interpretation Comments FUROSEMIDE, SERUM (test code = None Det ng/mL 33454) FUROSEMIDE, [id number] 00:00:00 Test Item Value Reference Range Interpretation Comments FUROSEMIDE, SERUM (test code = None Det ng/mL 21043) FUROSEMIDE, [id number] 00:00:00 Test Item Value Reference Range Interpretation Comments FUROSEMIDE, SERUM (test code = None Det ng/mL 48715) FUROSEMIDE, [id number] 00:00:00 Test Item Value Reference Range Interpretation Comments FUROSEMIDE, SERUM (test code = None Det ng/mL 43638) FUROSEMIDE, [id number] 00:00:00 Test Item Value Reference Range Interpretation Comments FUROSEMIDE, SERUM (test code = None Det ng/mL 89552) FUROSEMIDE, [id number] 00:00:00 Test Item Value Reference Range Interpretation Comments FUROSEMIDE, SERUM (test code = None Det ng/mL 31492) FUROSEMIDE, [id number] 00:00:00 Test Item Value Reference Range Interpretation Comments FUROSEMIDE, SERUM (test code = None Det ng/mL 99730) FUROSEMIDE, [id number] 00:00:00 Test Item Value Reference Range Interpretation Comments FUROSEMIDE, SERUM (test code = None Det ng/mL 90018) FUROSEMIDE, [id number] 00:00:00 Test Item Value Reference Range Interpretation Comments FUROSEMIDE, SERUM (test code = None Det ng/mL 13244) FUROSEMIDE, [id number] 00:00:00 Test Item Value Reference Range Interpretation Comments FUROSEMIDE, SERUM (test code = None Det ng/mL 08827) FUROSEMIDE, [id number] 00:00:00 Test Item Value Reference Range Interpretation Comments FUROSEMIDE, SERUM (test code = None Det ng/mL 65874) FUROSEMIDE, [id number] 00:00:00 Test Item Value Reference Range Interpretation Comments FUROSEMIDE, SERUM (test code = None Det ng/mL 79751) FUROSEMIDE, [id number] 00:00:00 Test Item Value Reference Range Interpretation Comments FUROSEMIDE, SERUM (test code = None Det ng/mL 19863) FUROSEMIDE, [id number] 00:00:00 Test Item Value Reference Range Interpretation Comments FUROSEMIDE, SERUM (test code = None Det ng/mL 82867) FUROSEMIDE, [id number] 00:00:00 Test Item Value Reference Range Interpretation Comments FUROSEMIDE, SERUM (test code = None Det ng/mL 04128) FUROSEMIDE, [id number] 00:00:00 Test Item Value Reference Range Interpretation Comments FUROSEMIDE, SERUM (test code = None Det ng/mL 22477) FUROSEMIDE, [id number] 00:00:00 Test Item Value Reference Range Interpretation Comments FUROSEMIDE, SERUM (test code = None Det ng/mL 51184) FUROSEMIDE, [id number] 00:00:00 Test Item Value Reference Range Interpretation Comments FUROSEMIDE, SERUM (test code = None Det ng/mL 55603) FUROSEMIDE, [id number] 00:00:00 Test Item Value Reference Range Interpretation Comments FUROSEMIDE, SERUM (test code = None Det ng/mL 98392) FUROSEMIDE, [id number] 00:00:00 Test Item Value Reference Range Interpretation Comments FUROSEMIDE, SERUM (test code = None Det ng/mL 96634) FUROSEMIDE, [id number] 00:00:00 Test Item Value Reference Range Interpretation Comments FUROSEMIDE, SERUM (test code = None Det ng/mL 47814) FUROSEMIDE, [id number] 00:00:00 Test Item Value Reference Range Interpretation Comments FUROSEMIDE, SERUM (test code = None Det ng/mL 20848) FUROSEMIDE, [id number] 00:00:00 Test Item Value Reference Range Interpretation Comments FUROSEMIDE, SERUM (test code = None Det ng/mL 62108) FUROSEMIDE, [id number] 00:00:00 Test Item Value Reference Range Interpretation Comments FUROSEMIDE, SERUM (test code = None Det ng/mL 29644) [id number] 11:27:02 Test Item Value Reference Range Interpretation [...] this result as normal/abnor mal. TSH, THIRD [id number] 05:58:42 Test Item Value Reference Range Interpretation Comments TSH, THIRD GENERATION (test code 2.070 UIU/ML 0.400-4.100 = 2821) PROTHROMBIN TIME (PT)2021-10-04 05:04:36 Test Item Value Reference Range Interpretation Comments PROTHROMBIN TIME 14.0 SECONDS 12.5-14.7 (PT) (test code = 1402) INR (test code = 1.0 SEE BELOW CURRENT 34383) RECOMMENDATIONS ARE FOR AN INR OF 2 .0-3.0 FOR ALL PATIENT S ON VITAMIN K ANTAG ONISTS, EXCEPT THOSE WI TH PROSTHETIC HEAR T VALVES, FOR WHO M INR OF 2.5-3.5 IS RECOMMENDED. UN LESS OTHERWISE INDIC ATED, ALL TESTING PER [facility]MED [facility] [place]. [address] [place] [address] [employer] NANCY DIRECTOR: TANNER VELASQUEZ M.D. CLIA NUMBER [id number] [facility] ACCREDITATION N O. [id number] HEMOGLOBIN [id number] 05:01:00 Test Item Value Reference Range Interpretation Comments HEMOGLOBIN A1c (test code = 72584) 5.3 % 4.2-5.6 COMPREHENSIVE METABOLIC [id number] 04:33:44 Test Item Value Reference Range Interpretation Comments GLUCOSE (test code = 126 MG/DL 70-99 H 2216) BUN (test code = 14 MG/DL 6-20 2207) CREATININE (test 0.76 MG/DL 0.60-1.30 code = 2214) eGFR (2020 CKD-EPI) 93 ML/MIN/1.73 >60 (test code = 86078) CALC BUN/CREAT (test 18 RATIO 6-28 code = 2235) SODIUM (test code = 140 MEQ/L 630-430 2802) POTASSIUM (test code 4.1 MEQ/L 3.5-5.4 = [...] code = 89 U/L 5-40 H 2218) [id number] 00:00:00 Test Item Value Reference Range Interpretation Comments D-DIMER (test code = 1405) <0.27 UG/MLFEU [id number] 00:00:00 Test Item Value Reference Range Interpretation Comments D-DIMER (test code = 1405) <0.27 UG/MLFEU PROTHROMBIN TIME (PT)2021-10-04 00:00:00 Test Item Value Reference Range Interpretation Comments PROTHROMBIN TIME (PT) (test code 14.0 SECONDS = 1402) INR (test code = 24289) 1.0 PROTHROMBIN TIME (PT)2021-10-04 00:00:00 Test Item Value Reference Range Interpretation Comments PROTHROMBIN TIME (PT) (test code 14.0 SECONDS = 1402) INR (test code = 63357) 1.0 COMPREHENSIVE METABOLIC [id number] 00:00:00 Test Item Value Reference Range Interpretation Comments GLUCOSE (test code = 2217) 126 MG/DL BUN (test code = 2208) 14 MG/DL CREATININE (test code = 2214) 0.76 MG/DL eGFR (2020 CKD-EPI) (test code 93 ML/MIN/1.73 = 15661) CALC BUN/CREAT (test code = 18 RATIO [...] code = 2219) 89 U/L COMPREHENSIVE METABOLIC [id number] 00:00:00 Test Item Value Reference Range Interpretation Comments GLUCOSE (test code = 2217) 126 MG/DL BUN (test code = 2208) 14 MG/DL CREATININE (test code = 2214) 0.76 MG/DL eGFR (2020 CKD-EPI) (test code 93 ML/MIN/1.73 = 62079) CALC BUN/CREAT (test code = 18 RATIO [...] ALT (test code = 2219) 89 U/L [id number] 00:00:00 Test Item Value Reference Range Interpretation Comments TSH, THIRD GENERATION (test code 2.070 UIU/ML = 2821) [id number] 00:00:00 Test Item Value Reference Range Interpretation Comments TSH, THIRD GENERATION (test code 2.070 UIU/ML = 2821) [id number] 00:00:00 Test Item Value Reference Range Interpretation Comments TSH, THIRD GENERATION (test code 2.070 UIU/ML = 2821) HEMOGLOBIN [id number] 00:00:00 Test Item Value Reference Range Interpretation Comments HEMOGLOBIN A1c (test code = 36012) 5.3 % HEMOGLOBIN [id number] 00:00:00 Test Item Value Reference Range Interpretation Comments HEMOGLOBIN A1c (test code = 10256) 5.3 % HEMOGLOBIN [id number] 00:00:00 Test Item Value Reference Range Interpretation Comments HEMOGLOBIN A1c (test code = 05405) 5.3 % [id number] 00:00:00 Test Item Value Reference Range Interpretation Comments D-DIMER (test code = 1405) <0.27 UG/MLFEU [id number] 00:00:00 Test Item Value Reference Range Interpretation Comments D-DIMER (test code = 1405) <0.27 UG/MLFEU PROTHROMBIN TIME (PT)2021-10-04 00:00:00 Test Item Value Reference Range Interpretation Comments PROTHROMBIN TIME (PT) (test code 14.0 SECONDS = 1402) INR (test code = 84791) 1.0 PROTHROMBIN TIME (PT)2021-10-04 00:00:00 Test Item Value Reference Range Interpretation Comments PROTHROMBIN TIME (PT) (test code 14.0 SECONDS = 1402) INR (test code = 46119) 1.0 COMPREHENSIVE METABOLIC [id number] 00:00:00 Test Item Value Reference Range Interpretation Comments GLUCOSE (test code = 2217) 126 MG/DL BUN (test code = 2208) 14 MG/DL CREATININE (test code = 2214) 0.76 MG/DL eGFR (2020 CKD-EPI) (test code 93 ML/MIN/1.73 = 65592) CALC BUN/CREAT (test code = 18 RATIO [...] code = 2219) 89 U/L COMPREHENSIVE METABOLIC [id number] 00:00:00 Test Item Value Reference Range Interpretation Comments GLUCOSE (test code = 2217) 126 MG/DL BUN (test code = 2208) 14 MG/DL CREATININE (test code = 2214) 0.76 MG/DL eGFR (2020 CKD-EPI) (test code 93 ML/MIN/1.73 = 14740) CALC BUN/CREAT (test code = 18 RATIO [...] ALT (test code = 2219) 89 U/L [id number] 00:00:00 Test Item Value Reference Range Interpretation Comments TSH, THIRD GENERATION (test code 2.070 UIU/ML = 2821) [id number] 00:00:00 Test Item Value Reference Range Interpretation Comments TSH, THIRD GENERATION (test code 2.070 UIU/ML = 2821) [id number] 00:00:00 Test Item Value Reference Range Interpretation Comments TSH, THIRD GENERATION (test code 2.070 UIU/ML = 2821) HEMOGLOBIN [id number] 00:00:00 Test Item Value Reference Range Interpretation Comments HEMOGLOBIN A1c (test code = 24281) 5.3 % HEMOGLOBIN [id number] 00:00:00 Test Item Value Reference Range Interpretation Comments HEMOGLOBIN A1c (test code = 77351) 5.3 % HEMOGLOBIN [id number] 00:00:00 Test Item Value Reference Range Interpretation Comments HEMOGLOBIN A1c (test code = 26534) 5.3 % [id number] 00:00:00 Test Item Value Reference Range Interpretation Comments D-DIMER (test code = 1405) <0.27 UG/MLFEU [id number] 00:00:00 Test Item Value Reference Range Interpretation Comments D-DIMER (test code = 1405) <0.27 UG/MLFEU PROTHROMBIN TIME (PT)2021-10-04 00:00:00 Test Item Value Reference Range Interpretation Comments PROTHROMBIN TIME (PT) (test code 14.0 SECONDS = 1402) INR (test code = 57241) 1.0 PROTHROMBIN TIME (PT)2021-10-04 00:00:00 Test Item Value Reference Range Interpretation Comments PROTHROMBIN TIME (PT) (test code 14.0 SECONDS = 1402) INR (test code = 54271) 1.0 COMPREHENSIVE METABOLIC [id number] 00:00:00 Test Item Value Reference Range Interpretation Comments GLUCOSE (test code = 2217) 126 MG/DL BUN (test code = 2208) 14 MG/DL CREATININE (test code = 2214) 0.76 MG/DL eGFR (2020 CKD-EPI) (test code 93 ML/MIN/1.73 = 78586) CALC BUN/CREAT (test code = 18 RATIO [...] code = 2219) 89 U/L COMPREHENSIVE METABOLIC [id number] 00:00:00 Test Item Value Reference Range Interpretation Comments GLUCOSE (test code = 2217) 126 MG/DL BUN (test code = 2208) 14 MG/DL CREATININE (test code = 2214) 0.76 MG/DL eGFR (2020 CKD-EPI) (test code 93 ML/MIN/1.73 = 20383) CALC BUN/CREAT (test code = 18 RATIO [...] ALT (test code = 2219) 89 U/L [id number] 00:00:00 Test Item Value Reference Range Interpretation Comments TSH, THIRD GENERATION (test code 2.070 UIU/ML = 2821) [id number] 00:00:00 Test Item Value Reference Range Interpretation Comments TSH, THIRD GENERATION (test code 2.070 UIU/ML = 2821) [id number] 00:00:00 Test Item Value Reference Range Interpretation Comments TSH, THIRD GENERATION (test code 2.070 UIU/ML = 2821) HEMOGLOBIN [id number] 00:00:00 Test Item Value Reference Range Interpretation Comments HEMOGLOBIN A1c (test code = 58449) 5.3 % HEMOGLOBIN [id number] 00:00:00 Test Item Value Reference Range Interpretation Comments HEMOGLOBIN A1c (test code = 82546) 5.3 % HEMOGLOBIN [id number] 00:00:00 Test Item Value Reference Range Interpretation Comments HEMOGLOBIN A1c (test code = 17828) 5.3 % [id number] 00:00:00 Test Item Value Reference Range Interpretation Comments D-DIMER (test code = 1405) <0.27 UG/MLFEU [id number] 00:00:00 Test Item Value Reference Range Interpretation Comments D-DIMER (test code = 1405) <0.27 UG/MLFEU PROTHROMBIN TIME (PT)2021-10-04 00:00:00 Test Item Value Reference Range Interpretation Comments PROTHROMBIN TIME (PT) (test code 14.0 SECONDS = 1402) INR (test code = 95533) 1.0 PROTHROMBIN TIME (PT)2021-10-04 00:00:00 Test Item Value Reference Range Interpretation Comments PROTHROMBIN TIME (PT) (test code 14.0 SECONDS = 1402) INR (test code = 62997) 1.0 COMPREHENSIVE METABOLIC [id number] 00:00:00 Test Item Value Reference Range Interpretation Comments GLUCOSE (test code = 2217) 126 MG/DL BUN (test code = 2208) 14 MG/DL CREATININE (test code = 2214) 0.76 MG/DL eGFR (2020 CKD-EPI) (test code 93 ML/MIN/1.73 = 29931) CALC BUN/CREAT (test code = 18 RATIO [...] code = 2219) 89 U/L COMPREHENSIVE METABOLIC [id number] 00:00:00 Test Item Value Reference Range Interpretation Comments GLUCOSE (test code = 2217) 126 MG/DL BUN (test code = 2208) 14 MG/DL CREATININE (test code = 2214) 0.76 MG/DL eGFR (2020 CKD-EPI) (test code 93 ML/MIN/1.73 = 76439) CALC BUN/CREAT (test code = 18 RATIO [...] ALT (test code = 2219) 89 U/L [id number] 00:00:00 Test Item Value Reference Range Interpretation Comments TSH, THIRD GENERATION (test code 2.070 UIU/ML = 2821) [id number] 00:00:00 Test Item Value Reference Range Interpretation Comments TSH, THIRD GENERATION (test code 2.070 UIU/ML = 2821) [id number] 00:00:00 Test Item Value Reference Range Interpretation Comments TSH, THIRD GENERATION (test code 2.070 UIU/ML = 2821) HEMOGLOBIN [id number] 00:00:00 Test Item Value Reference Range Interpretation Comments HEMOGLOBIN A1c (test code = 36955) 5.3 % HEMOGLOBIN [id number] 00:00:00 Test Item Value Reference Range Interpretation Comments HEMOGLOBIN A1c (test code = 70135) 5.3 % HEMOGLOBIN [id number] 00:00:00 Test Item Value Reference Range Interpretation Comments HEMOGLOBIN A1c (test code = 90990) 5.3 % [id number] 00:00:00 Test Item Value Reference Range Interpretation Comments D-DIMER (test code = 1405) <0.27 UG/MLFEU [id number] 00:00:00 Test Item Value Reference Range Interpretation Comments D-DIMER (test code = 1405) <0.27 UG/MLFEU PROTHROMBIN TIME (PT)2021-10-04 00:00:00 Test Item Value Reference Range Interpretation Comments PROTHROMBIN TIME (PT) (test code 14.0 SECONDS = 1402) INR (test code = 92453) 1.0 PROTHROMBIN TIME (PT)2021-10-04 00:00:00 Test Item Value Reference Range Interpretation Comments PROTHROMBIN TIME (PT) (test code 14.0 SECONDS = 1402) INR (test code = 47230) 1.0 COMPREHENSIVE METABOLIC [id number] 00:00:00 Test Item Value Reference Range Interpretation Comments GLUCOSE (test code = 2217) 126 MG/DL BUN (test code = 2208) 14 MG/DL CREATININE (test code = 2214) 0.76 MG/DL eGFR (2020 CKD-EPI) (test code 93 ML/MIN/1.73 = 46364) CALC BUN/CREAT (test code = 18 RATIO [...] code = 2219) 89 U/L COMPREHENSIVE METABOLIC [id number] 00:00:00 Test Item Value Reference Range Interpretation Comments GLUCOSE (test code = 2217) 126 MG/DL BUN (test code = 2208) 14 MG/DL CREATININE (test code = 2214) 0.76 MG/DL eGFR (2020 CKD-EPI) (test code 93 ML/MIN/1.73 = 43557) CALC BUN/CREAT (test code = 18 RATIO [...] ALT (test code = 2219) 89 U/L [id number] 00:00:00 Test Item Value Reference Range Interpretation Comments TSH, THIRD GENERATION (test code 2.070 UIU/ML = 2821) [id number] 00:00:00 Test Item Value Reference Range Interpretation Comments TSH, THIRD GENERATION (test code 2.070 UIU/ML = 2821) [id number] 00:00:00 Test Item Value Reference Range Interpretation Comments TSH, THIRD GENERATION (test code 2.070 UIU/ML = 2821) HEMOGLOBIN [id number] 00:00:00 Test Item Value Reference Range Interpretation Comments HEMOGLOBIN A1c (test code = 90918) 5.3 % HEMOGLOBIN [id number] 00:00:00 Test Item Value Reference Range Interpretation Comments HEMOGLOBIN A1c (test code = 84151) 5.3 % HEMOGLOBIN [id number] 00:00:00 Test Item Value Reference Range Interpretation Comments HEMOGLOBIN A1c (test code = 04612) 5.3 % [id number] 00:00:00 Test Item Value Reference Range Interpretation Comments D-DIMER (test code = 1405) <0.27 UG/MLFEU [id number] 00:00:00 Test Item Value Reference Range Interpretation Comments D-DIMER (test code = 1405) <0.27 UG/MLFEU PROTHROMBIN TIME (PT)2021-10-04 00:00:00 Test Item Value Reference Range Interpretation Comments PROTHROMBIN TIME (PT) (test code 14.0 SECONDS = 1402) INR (test code = 96768) 1.0 PROTHROMBIN TIME (PT)2021-10-04 00:00:00 Test Item Value Reference Range Interpretation Comments PROTHROMBIN TIME (PT) (test code 14.0 SECONDS = 1402) INR (test code = 48276) 1.0 COMPREHENSIVE METABOLIC [id number] 00:00:00 Test Item Value Reference Range Interpretation Comments GLUCOSE (test code = 2217) 126 MG/DL BUN (test code = 2208) 14 MG/DL CREATININE (test code = 2214) 0.76 MG/DL eGFR (2020 CKD-EPI) (test code 93 ML/MIN/1.73 = 82583) CALC BUN/CREAT (test code = 18 RATIO [...] code = 2219) 89 U/L COMPREHENSIVE METABOLIC [id number] 00:00:00 Test Item Value Reference Range Interpretation Comments GLUCOSE (test code = 2217) 126 MG/DL BUN (test code = 2208) 14 MG/DL CREATININE (test code = 2214) 0.76 MG/DL eGFR (2020 CKD-EPI) (test code 93 ML/MIN/1.73 = 70040) CALC BUN/CREAT (test code = 18 RATIO [...] ALT (test code = 2219) 89 U/L [id number] 00:00:00 Test Item Value Reference Range Interpretation Comments TSH, THIRD GENERATION (test code 2.070 UIU/ML = 2821) [id number] 00:00:00 Test Item Value Reference Range Interpretation Comments TSH, THIRD GENERATION (test code 2.070 UIU/ML = 2821) [id number] 00:00:00 Test Item Value Reference Range Interpretation Comments TSH, THIRD GENERATION (test code 2.070 UIU/ML = 2821) HEMOGLOBIN [id number] 00:00:00 Test Item Value Reference Range Interpretation Comments HEMOGLOBIN A1c (test code = 43119) 5.3 % HEMOGLOBIN [id number] 00:00:00 Test Item Value Reference Range Interpretation Comments HEMOGLOBIN A1c (test code = 54571) 5.3 % HEMOGLOBIN [id number] 00:00:00 Test Item Value Reference Range Interpretation Comments HEMOGLOBIN A1c (test code = 61262) 5.3 % [id number] 00:00:00 Test Item Value Reference Range Interpretation Comments D-DIMER (test code = 1405) <0.27 UG/MLFEU [id number] 00:00:00 Test Item Value Reference Range Interpretation Comments D-DIMER (test code = 1405) <0.27 UG/MLFEU PROTHROMBIN TIME (PT)2021-10-04 00:00:00 Test Item Value Reference Range Interpretation Comments PROTHROMBIN TIME (PT) (test code 14.0 SECONDS = 1402) INR (test code = 27744) 1.0 PROTHROMBIN TIME (PT)2021-10-04 00:00:00 Test Item Value Reference Range Interpretation Comments PROTHROMBIN TIME (PT) (test code 14.0 SECONDS = 1402) INR (test code = 27555) 1.0 COMPREHENSIVE METABOLIC [id number] 00:00:00 Test Item Value Reference Range Interpretation Comments GLUCOSE (test code = 2217) 126 MG/DL BUN (test code = 2208) 14 MG/DL CREATININE (test code = 2214) 0.76 MG/DL eGFR (2020 CKD-EPI) (test code 93 ML/MIN/1.73 = 46865) CALC BUN/CREAT (test code = 18 RATIO [...] code = 2219) 89 U/L COMPREHENSIVE METABOLIC [id number] 00:00:00 Test Item Value Reference Range Interpretation Comments GLUCOSE (test code = 2217) 126 MG/DL BUN (test code = 2208) 14 MG/DL CREATININE (test code = 2214) 0.76 MG/DL eGFR (2020 CKD-EPI) (test code 93 ML/MIN/1.73 = 31671) CALC BUN/CREAT (test code = 18 RATIO [...] ALT (test code = 2219) 89 U/L [id number] 00:00:00 Test Item Value Reference Range Interpretation Comments TSH, THIRD GENERATION (test code 2.070 UIU/ML = 2821) [id number] 00:00:00 Test Item Value Reference Range Interpretation Comments TSH, THIRD GENERATION (test code 2.070 UIU/ML = 2821) [id number] 00:00:00 Test Item Value Reference Range Interpretation Comments TSH, THIRD GENERATION (test code 2.070 UIU/ML = 2821) HEMOGLOBIN [id number] 00:00:00 Test Item Value Reference Range Interpretation Comments HEMOGLOBIN A1c (test code = 18531) 5.3 % HEMOGLOBIN [id number] 00:00:00 Test Item Value Reference Range Interpretation Comments HEMOGLOBIN A1c (test code = 38117) 5.3 % HEMOGLOBIN [id number] 00:00:00 Test Item Value Reference Range Interpretation Comments HEMOGLOBIN A1c (test code = 39010) 5.3 % [id number] 00:00:00 Test Item Value Reference Range Interpretation Comments D-DIMER (test code = 1405) <0.27 UG/MLFEU [id number] 00:00:00 Test Item Value Reference Range Interpretation Comments D-DIMER (test code = 1405) <0.27 UG/MLFEU PROTHROMBIN TIME (PT)2021-10-04 00:00:00 Test Item Value Reference Range Interpretation Comments PROTHROMBIN TIME (PT) (test code 14.0 SECONDS = 1402) INR (test code = 20088) 1.0 PROTHROMBIN TIME (PT)2021-10-04 00:00:00 Test Item Value Reference Range Interpretation Comments PROTHROMBIN TIME (PT) (test code 14.0 SECONDS = 1402) INR (test code = 20720) 1.0 COMPREHENSIVE METABOLIC [id number] 00:00:00 Test Item Value Reference Range Interpretation Comments GLUCOSE (test code = 2217) 126 MG/DL BUN (test code = 2208) 14 MG/DL CREATININE (test code = 2214) 0.76 MG/DL eGFR (2020 CKD-EPI) (test code 93 ML/MIN/1.73 = 51297) CALC BUN/CREAT (test code = 18 RATIO [...] code = 2219) 89 U/L COMPREHENSIVE METABOLIC [id number] 00:00:00 Test Item Value Reference Range Interpretation Comments GLUCOSE (test code = 2217) 126 MG/DL BUN (test code = 2208) 14 MG/DL CREATININE (test code = 2214) 0.76 MG/DL eGFR (2020 CKD-EPI) (test code 93 ML/MIN/1.73 = 26717) CALC BUN/CREAT (test code = 18 RATIO [...] ALT (test code = 2219) 89 U/L [id number] 00:00:00 Test Item Value Reference Range Interpretation Comments TSH, THIRD GENERATION (test code 2.070 UIU/ML = 2821) [id number] 00:00:00 Test Item Value Reference Range Interpretation Comments TSH, THIRD GENERATION (test code 2.070 UIU/ML = 2821) [id number] 00:00:00 Test Item Value Reference Range Interpretation Comments TSH, THIRD GENERATION (test code 2.070 UIU/ML = 2821) HEMOGLOBIN [id number] 00:00:00 Test Item Value Reference Range Interpretation Comments HEMOGLOBIN A1c (test code = 70663) 5.3 % HEMOGLOBIN [id number] 00:00:00 Test Item Value Reference Range Interpretation Comments HEMOGLOBIN A1c (test code = 23135) 5.3 % HEMOGLOBIN [id number] 00:00:00 Test Item Value Reference Range Interpretation Comments HEMOGLOBIN A1c (test code = 43236) 5.3 % [id number] 00:00:00 Test Item Value Reference Range Interpretation Comments D-DIMER (test code = 1405) <0.27 UG/MLFEU [id number] 00:00:00 Test Item Value Reference Range Interpretation Comments D-DIMER (test code = 1405) <0.27 UG/MLFEU PROTHROMBIN TIME (PT)2021-10-04 00:00:00 Test Item Value Reference Range Interpretation Comments PROTHROMBIN TIME (PT) (test code 14.0 SECONDS = 1402) INR (test code = 38340) 1.0 PROTHROMBIN TIME (PT)2021-10-04 00:00:00 Test Item Value Reference Range Interpretation Comments PROTHROMBIN TIME (PT) (test code 14.0 SECONDS = 1402) INR (test code = 46185) 1.0 COMPREHENSIVE METABOLIC [id number] 00:00:00 Test Item Value Reference Range Interpretation Comments GLUCOSE (test code = 2217) 126 MG/DL BUN (test code = 2208) 14 MG/DL CREATININE (test code = 2214) 0.76 MG/DL eGFR (2020 CKD-EPI) (test code 93 ML/MIN/1.73 = 14297) CALC BUN/CREAT (test code = 18 RATIO [...] code = 2219) 89 U/L COMPREHENSIVE METABOLIC [id number] 00:00:00 Test Item Value Reference Range Interpretation Comments GLUCOSE (test code = 2217) 126 MG/DL BUN (test code = 2208) 14 MG/DL CREATININE (test code = 2214) 0.76 MG/DL eGFR (2020 CKD-EPI) (test code 93 ML/MIN/1.73 = 37622) CALC BUN/CREAT (test code = 18 RATIO [...] ALT (test code = 2219) 89 U/L [id number] 00:00:00 Test Item Value Reference Range Interpretation Comments TSH, THIRD GENERATION (test code 2.070 UIU/ML = 2821) [id number] 00:00:00 Test Item Value Reference Range Interpretation Comments TSH, THIRD GENERATION (test code 2.070 UIU/ML = 2821) [id number] 00:00:00 Test Item Value Reference Range Interpretation Comments TSH, THIRD GENERATION (test code 2.070 UIU/ML = 2821) HEMOGLOBIN [id number] 00:00:00 Test Item Value Reference Range Interpretation Comments HEMOGLOBIN A1c (test code = 51624) 5.3 % HEMOGLOBIN [id number] 00:00:00 Test Item Value Reference Range Interpretation Comments HEMOGLOBIN A1c (test code = 64173) 5.3 % COMPREHENSIVE METABOLIC [id number] 00:00:00 Test Item Value Reference Range Interpretation Comments GLUCOSE (test code = 2217) 126 MG/DL BUN (test code = 2208) 14 MG/DL CREATININE (test code = 2214) 0.76 MG/DL eGFR (2020 CKD-EPI) (test code 93 ML/MIN/1.73 = 27263) CALC BUN/CREAT (test code = 18 RATIO [...] ALT (test code = 2219) 89 U/L HEMOGLOBIN [id number] 00:00:00 Test Item Value Reference Range Interpretation Comments HEMOGLOBIN A1c (test code = 46858) 5.3 % [id number] 00:00:00 Test Item Value Reference Range Interpretation Comments D-DIMER (test code = 1405) <0.27 UG/MLFEU [id number] 00:00:00 Test Item Value Reference Range Interpretation Comments D-DIMER (test code = 1405) <0.27 UG/MLFEU COMPREHENSIVE METABOLIC [id number] 00:00:00 Test Item Value Reference Range Interpretation Comments GLUCOSE (test code = 2217) 126 MG/DL BUN (test code = 2208) 14 MG/DL CREATININE (test code = 2214) 0.76 MG/DL eGFR (2020 CKD-EPI) (test code 93 ML/MIN/1.73 = 47112) CALC BUN/CREAT (test code = 18 RATIO [...] ALT (test code = 2219) 89 U/L PROTHROMBIN TIME (PT)2021-10-04 00:00:00 Test Item Value Reference Range Interpretation Comments PROTHROMBIN TIME (PT) (test code 14.0 SECONDS = 1402) INR (test code = 50985) 1.0 PROTHROMBIN TIME (PT)2021-10-04 00:00:00 Test Item Value Reference Range Interpretation Comments PROTHROMBIN TIME (PT) (test code 14.0 SECONDS = 1402) INR (test code = 19299) 1.0 [id number] 00:00:00 Test Item Value Reference Range Interpretation Comments TSH, THIRD GENERATION (test code 2.070 UIU/ML = 2821) [id number] 00:00:00 Test Item Value Reference Range Interpretation Comments TSH, THIRD GENERATION (test code 2.070 UIU/ML = 2821) [id number] 00:00:00 Test Item Value Reference Range Interpretation Comments TSH, THIRD GENERATION (test code 2.070 UIU/ML = 2821) HEMOGLOBIN [id number] 00:00:00 Test Item Value Reference Range Interpretation Comments HEMOGLOBIN A1c (test code = 81415) 5.3 % HEMOGLOBIN [id number] 00:00:00 Test Item Value Reference Range Interpretation Comments HEMOGLOBIN A1c (test code = 24645) 5.3 % HEMOGLOBIN [id number] 00:00:00 Test Item Value Reference Range Interpretation Comments HEMOGLOBIN A1c (test code = 45143) 5.3 % [id number] 00:00:00 Test Item Value Reference Range Interpretation Comments D-DIMER (test code = 1405) <0.27 UG/MLFEU [id number] 00:00:00 Test Item Value Reference Range Interpretation Comments D-DIMER (test code = 1405) <0.27 UG/MLFEU PROTHROMBIN TIME (PT)2021-10-04 00:00:00 Test Item Value Reference Range Interpretation Comments PROTHROMBIN TIME (PT) (test code 14.0 SECONDS = 1402) INR (test code = 66813) 1.0 PROTHROMBIN TIME (PT)2021-10-04 00:00:00 Test Item Value Reference Range Interpretation Comments PROTHROMBIN TIME (PT) (test code 14.0 SECONDS = 1402) INR (test code = 09954) 1.0 COMPREHENSIVE METABOLIC [id number] 00:00:00 Test Item Value Reference Range Interpretation Comments GLUCOSE (test code = 2217) 126 MG/DL BUN (test code = 2208) 14 MG/DL CREATININE (test code = 2214) 0.76 MG/DL eGFR (2020 CKD-EPI) (test code 93 ML/MIN/1.73 = 23946) CALC BUN/CREAT (test code = 18 RATIO [...] code = 2219) 89 U/L COMPREHENSIVE METABOLIC [id number] 00:00:00 Test Item Value Reference Range Interpretation Comments GLUCOSE (test code = 2217) 126 MG/DL BUN (test code = 2208) 14 MG/DL CREATININE (test code = 2214) 0.76 MG/DL eGFR (2020 CKD-EPI) (test code 93 ML/MIN/1.73 = 57240) CALC BUN/CREAT (test code = 18 RATIO [...] ALT (test code = 2219) 89 U/L [id number] 00:00:00 Test Item Value Reference Range Interpretation Comments TSH, THIRD GENERATION (test code 2.070 UIU/ML = 2821) [id number] 00:00:00 Test Item Value Reference Range Interpretation Comments TSH, THIRD GENERATION (test code 2.070 UIU/ML = 2821) [id number] 00:00:00 Test Item Value Reference Range Interpretation Comments TSH, THIRD GENERATION (test code 2.070 UIU/ML = 2821) HEMOGLOBIN [id number] 00:00:00 Test Item Value Reference Range Interpretation Comments HEMOGLOBIN A1c (test code = 69751) 5.3 % HEMOGLOBIN [id number] 00:00:00 Test Item Value Reference Range Interpretation Comments HEMOGLOBIN A1c (test code = 94464) 5.3 % HEMOGLOBIN [id number] 00:00:00 Test Item Value Reference Range Interpretation Comments HEMOGLOBIN A1c (test code = 46958) 5.3 % [id number] 00:00:00 Test Item Value Reference Range Interpretation Comments D-DIMER (test code = 1405) <0.27 UG/MLFEU [id number] 00:00:00 Test Item Value Reference Range Interpretation Comments D-DIMER (test code = 1405) <0.27 UG/MLFEU PROTHROMBIN TIME (PT)2021-10-04 00:00:00 Test Item Value Reference Range Interpretation Comments PROTHROMBIN TIME (PT) (test code 14.0 SECONDS = 1402) INR (test code = 76519) 1.0 PROTHROMBIN TIME (PT)2021-10-04 00:00:00 Test Item Value Reference Range Interpretation Comments PROTHROMBIN TIME (PT) (test code 14.0 SECONDS = 1402) INR (test code = 03194) 1.0 COMPREHENSIVE METABOLIC [id number] 00:00:00 Test Item Value Reference Range Interpretation Comments GLUCOSE (test code = 2217) 126 MG/DL BUN (test code = 2208) 14 MG/DL CREATININE (test code = 2214) 0.76 MG/DL eGFR (2020 CKD-EPI) (test code 93 ML/MIN/1.73 = 57678) CALC BUN/CREAT (test code = 18 RATIO [...] code = 2219) 89 U/L COMPREHENSIVE METABOLIC [id number] 00:00:00 Test Item Value Reference Range Interpretation Comments GLUCOSE (test code = 2217) 126 MG/DL BUN (test code = 2208) 14 MG/DL CREATININE (test code = 2214) 0.76 MG/DL eGFR (2020 CKD-EPI) (test code 93 ML/MIN/1.73 = 50617) CALC BUN/CREAT (test code = 18 RATIO [...] ALT (test code = 2219) 89 U/L [id number] 00:00:00 Test Item Value Reference Range Interpretation Comments TSH, THIRD GENERATION (test code 2.070 UIU/ML = 2821) [id number] 00:00:00 Test Item Value Reference Range Interpretation Comments TSH, THIRD GENERATION (test code 2.070 UIU/ML = 2821) [id number] 00:00:00 Test Item Value Reference Range Interpretation Comments TSH, THIRD GENERATION (test code 2.070 UIU/ML = 2821) HEMOGLOBIN [id number] 00:00:00 Test Item Value Reference Range Interpretation Comments HEMOGLOBIN A1c (test code = 80949) 5.3 % HEMOGLOBIN [id number] 00:00:00 Test Item Value Reference Range Interpretation Comments HEMOGLOBIN A1c (test code = 28367) 5.3 % HEMOGLOBIN [id number] 00:00:00 Test Item Value Reference Range Interpretation Comments HEMOGLOBIN A1c (test code = 75435) 5.3 % CBC W/AUTO DIFF WITH [id number] 03:31:03 Test Item Value Reference Range Interpretation [...] RBCS 0.00 K/UL 0.00-0.11 (test code = 68212) COMPREHENSIVE METABOLIC [id number] 03:15:48 Test Item Value Reference Range Interpretation Comments GLUCOSE (test code = 100 MG/DL 70-99 H 2216) BUN (test code = 13 MG/DL 6-20 2207) CREATININE (test 0.63 MG/DL 0.60-1.30 code = 2214) eGFR (2020 CKD-EPI) 105 >60 (test code = 04974) ML/MIN/1.73 CALC BUN/CREAT (test 21 RATIO 6-28 code = 2235) SODIUM (test code = 141 MEQ/L 716-935 5835) POTASSIUM (test code 4.5 MEQ/L 3.5-5.4 = [...] TESTING PERFORM [facility], [facility]. [address] [place] [id number] [place] [address] DIRECTOR: TANNER VELASQUEZ M.D. CLIA NUMBER [id number] CAP ACCREDITATION N O. [id number] CBC W/AUTO [id number] 00:00:00 Test Item Value Reference Range Interpretation [...] NUCLEATED RBCS (test code = 0.00 K/UL 37521) CBC W/AUTO [id number] 00:00:00 Test Item Value Reference Range Interpretation [...] NUCLEATED RBCS (test code = 0.00 K/UL 42545) CBC W/AUTO [id number] 00:00:00 Test Item Value Reference Range Interpretation [...] NUCLEATED RBCS (test code = 0.00 K/UL 66635) CBC W/AUTO [id number] 00:00:00 Test Item Value Reference Range Interpretation [...] NUCLEATED RBCS (test code = 0.00 K/UL 37668) CBC W/AUTO [id number] 00:00:00 Test Item Value Reference Range Interpretation [...] NUCLEATED RBCS (test code = 0.00 K/UL 75975) COMPREHENSIVE METABOLIC [id number] 00:00:00 Test Item Value Reference Range Interpretation Comments GLUCOSE (test code = 2217) 100 MG/DL BUN (test code = 2208) 13 MG/DL CREATININE (test code = 2214) 0.63 MG/DL eGFR (2020 CKD-EPI) (test 105 ML/MIN/1.73 code = 68720) CALC BUN/CREAT (test code = 21 RATIO [...] code = 2219) 33 U/L COMPREHENSIVE METABOLIC [id number] 00:00:00 Test Item Value Reference Range Interpretation Comments GLUCOSE (test code = 2217) 100 MG/DL BUN (test code = 2208) 13 MG/DL CREATININE (test code = 2214) 0.63 MG/DL eGFR (2020 CKD-EPI) (test 105 ML/MIN/1.73 code = 85880) CALC BUN/CREAT (test code = 21 RATIO [...] code = 2219) 33 U/L COMPREHENSIVE METABOLIC [id number] 00:00:00 Test Item Value Reference Range Interpretation Comments GLUCOSE (test code = 2217) 100 MG/DL BUN (test code = 2208) 13 MG/DL CREATININE (test code = 2214) 0.63 MG/DL eGFR (2020 CKD-EPI) (test 105 ML/MIN/1.73 code = 75976) CALC BUN/CREAT (test code = 21 RATIO [...] code = 2219) 33 U/L CBC W/AUTO [id number] 00:00:00 Test Item Value Reference Range Interpretation [...] NUCLEATED RBCS (test code = 0.00 K/UL 71379) CBC W/AUTO [id number] 00:00:00 Test Item Value Reference Range Interpretation [...] NUCLEATED RBCS (test code = 0.00 K/UL 48565) CBC W/AUTO [id number] 00:00:00 Test Item Value Reference Range Interpretation [...] NUCLEATED RBCS (test code = 0.00 K/UL 86702) COMPREHENSIVE METABOLIC [id number] 00:00:00 Test Item Value Reference Range Interpretation Comments GLUCOSE (test code = 2217) 100 MG/DL BUN (test code = 2208) 13 MG/DL CREATININE (test code = 2214) 0.63 MG/DL eGFR (2020 CKD-EPI) (test 105 ML/MIN/1.73 code = 96153) CALC BUN/CREAT (test code = 21 RATIO [...] code = 2219) 33 U/L COMPREHENSIVE METABOLIC [id number] 00:00:00 Test Item Value Reference Range Interpretation Comments GLUCOSE (test code = 2217) 100 MG/DL BUN (test code = 2208) 13 MG/DL CREATININE (test code = 2214) 0.63 MG/DL eGFR (2020 CKD-EPI) (test 105 ML/MIN/1.73 code = 21176) CALC BUN/CREAT (test code = 21 RATIO [...] code = 2219) 33 U/L CBC W/AUTO [id number] 00:00:00 Test Item Value Reference Range Interpretation [...] NUCLEATED RBCS (test code = 0.00 K/UL 09874) CBC W/AUTO [id number] 00:00:00 Test Item Value Reference Range Interpretation [...] NUCLEATED RBCS (test code = 0.00 K/UL 96405) CBC W/AUTO [id number] 00:00:00 Test Item Value Reference Range Interpretation [...] NUCLEATED RBCS (test code = 0.00 K/UL 78339) COMPREHENSIVE METABOLIC [id number] 00:00:00 Test Item Value Reference Range Interpretation Comments GLUCOSE (test code = 2217) 100 MG/DL BUN (test code = 2208) 13 MG/DL CREATININE (test code = 2214) 0.63 MG/DL eGFR (2020 CKD-EPI) (test 105 ML/MIN/1.73 code = 11544) CALC BUN/CREAT (test code = 21 RATIO [...] code = 2219) 33 U/L COMPREHENSIVE METABOLIC [id number] 00:00:00 Test Item Value Reference Range Interpretation Comments GLUCOSE (test code = 2217) 100 MG/DL BUN (test code = 2208) 13 MG/DL CREATININE (test code = 2214) 0.63 MG/DL eGFR (2020 CKD-EPI) (test 105 ML/MIN/1.73 code = 18534) CALC BUN/CREAT (test code = 21 RATIO [...] code = 2219) 33 U/L CBC W/AUTO [id number] 00:00:00 Test Item Value Reference Range Interpretation [...] NUCLEATED RBCS (test code = 0.00 K/UL 89364) CBC W/AUTO [id number] 00:00:00 Test Item Value Reference Range Interpretation [...] NUCLEATED RBCS (test code = 0.00 K/UL 84974) CBC W/AUTO [id number] 00:00:00 Test Item Value Reference Range Interpretation [...] NUCLEATED RBCS (test code = 0.00 K/UL 47956) COMPREHENSIVE METABOLIC [id number] 00:00:00 Test Item Value Reference Range Interpretation Comments GLUCOSE (test code = 2217) 100 MG/DL BUN (test code = 2208) 13 MG/DL CREATININE (test code = 2214) 0.63 MG/DL eGFR (2020 CKD-EPI) (test 105 ML/MIN/1.73 code = 02682) CALC BUN/CREAT (test code = 21 RATIO [...] code = 2219) 33 U/L COMPREHENSIVE METABOLIC [id number] 00:00:00 Test Item Value Reference Range Interpretation Comments GLUCOSE (test code = 2217) 100 MG/DL BUN (test code = 2208) 13 MG/DL CREATININE (test code = 2214) 0.63 MG/DL eGFR (2020 CKD-EPI) (test 105 ML/MIN/1.73 code = 85857) CALC BUN/CREAT (test code = 21 RATIO [...] code = 2219) 33 U/L CBC W/AUTO [id number] 00:00:00 Test Item Value Reference Range Interpretation [...] NUCLEATED RBCS (test code = 0.00 K/UL 08438) CBC W/AUTO [id number] 00:00:00 Test Item Value Reference Range Interpretation [...] NUCLEATED RBCS (test code = 0.00 K/UL 05512) CBC W/AUTO [id number] 00:00:00 Test Item Value Reference Range Interpretation [...] NUCLEATED RBCS (test code = 0.00 K/UL 64753) COMPREHENSIVE METABOLIC [id number] 00:00:00 Test Item Value Reference Range Interpretation Comments GLUCOSE (test code = 2217) 100 MG/DL BUN (test code = 2208) 13 MG/DL CREATININE (test code = 2214) 0.63 MG/DL eGFR (2020 CKD-EPI) (test 105 ML/MIN/1.73 code = 47529) CALC BUN/CREAT (test code = 21 RATIO [...] code = 2219) 33 U/L COMPREHENSIVE METABOLIC [id number] 00:00:00 Test Item Value Reference Range Interpretation Comments GLUCOSE (test code = 2217) 100 MG/DL BUN (test code = 2208) 13 MG/DL CREATININE (test code = 2214) 0.63 MG/DL eGFR (2020 CKD-EPI) (test 105 ML/MIN/1.73 code = 82004) CALC BUN/CREAT (test code = 21 RATIO [...] code = 2219) 33 U/L CBC W/AUTO [id number] 00:00:00 Test Item Value Reference Range Interpretation [...] NUCLEATED RBCS (test code = 0.00 K/UL 29378) CBC W/AUTO [id number] 00:00:00 Test Item Value Reference Range Interpretation [...] NUCLEATED RBCS (test code = 0.00 K/UL 22839) CBC W/AUTO [id number] 00:00:00 Test Item Value Reference Range Interpretation [...] NUCLEATED RBCS (test code = 0.00 K/UL 53567) COMPREHENSIVE METABOLIC [id number] 00:00:00 Test Item Value Reference Range Interpretation Comments GLUCOSE (test code = 2217) 100 MG/DL BUN (test code = 2208) 13 MG/DL CREATININE (test code = 2214) 0.63 MG/DL eGFR (2020 CKD-EPI) (test 105 ML/MIN/1.73 code = 38978) CALC BUN/CREAT (test code = 21 RATIO [...] code = 2219) 33 U/L COMPREHENSIVE METABOLIC [id number] 00:00:00 Test Item Value Reference Range Interpretation Comments GLUCOSE (test code = 2217) 100 MG/DL BUN (test code = 2208) 13 MG/DL CREATININE (test code = 2214) 0.63 MG/DL eGFR (2020 CKD-EPI) (test 105 ML/MIN/1.73 code = 51655) CALC BUN/CREAT (test code = 21 RATIO [...] code = 2219) 33 U/L CBC W/AUTO [id number] 00:00:00 Test Item Value Reference Range Interpretation [...] NUCLEATED RBCS (test code = 0.00 K/UL 48629) CBC W/AUTO [id number] 00:00:00 Test Item Value Reference Range Interpretation [...] NUCLEATED RBCS (test code = 0.00 K/UL 46279) CBC W/AUTO [id number] 00:00:00 Test Item Value Reference Range Interpretation [...] NUCLEATED RBCS (test code = 0.00 K/UL 17661) COMPREHENSIVE METABOLIC [id number] 00:00:00 Test Item Value Reference Range Interpretation Comments GLUCOSE (test code = 2217) 100 MG/DL BUN (test code = 2208) 13 MG/DL CREATININE (test code = 2214) 0.63 MG/DL eGFR (2020 CKD-EPI) (test 105 ML/MIN/1.73 code = 97044) CALC BUN/CREAT (test code = 21 RATIO [...] code = 2219) 33 U/L COMPREHENSIVE METABOLIC [id number] 00:00:00 Test Item Value Reference Range Interpretation Comments GLUCOSE (test code = 2217) 100 MG/DL BUN (test code = 2208) 13 MG/DL CREATININE (test code = 2214) 0.63 MG/DL eGFR (2020 CKD-EPI) (test 105 ML/MIN/1.73 code = 51225) CALC BUN/CREAT (test code = 21 RATIO [...] code = 2219) 33 U/L CBC W/AUTO [id number] 00:00:00 Test Item Value Reference Range Interpretation [...] NUCLEATED RBCS (test code = 0.00 K/UL 03788) CBC W/AUTO [id number] 00:00:00 Test Item Value Reference Range Interpretation [...] NUCLEATED RBCS (test code = 0.00 K/UL 27838) CBC W/AUTO [id number] 00:00:00 Test Item Value Reference Range Interpretation [...] NUCLEATED RBCS (test code = 0.00 K/UL 66948) COMPREHENSIVE METABOLIC [id number] 00:00:00 Test Item Value Reference Range Interpretation Comments GLUCOSE (test code = 2217) 100 MG/DL BUN (test code = 2208) 13 MG/DL CREATININE (test code = 2214) 0.63 MG/DL eGFR (2020 CKD-EPI) (test 105 ML/MIN/1.73 code = 96076) CALC BUN/CREAT (test code = 21 RATIO [...] code = 2219) 33 U/L COMPREHENSIVE METABOLIC [id number] 00:00:00 Test Item Value Reference Range Interpretation Comments GLUCOSE (test code = 2217) 100 MG/DL BUN (test code = 2208) 13 MG/DL CREATININE (test code = 2214) 0.63 MG/DL eGFR (2020 CKD-EPI) (test 105 ML/MIN/1.73 code = 96835) CALC BUN/CREAT (test code = 21 RATIO [...] code = 2219) 33 U/L CBC W/AUTO [id number] 00:00:00 Test Item Value Reference Range Interpretation [...] NUCLEATED RBCS (test code = 0.00 K/UL 24109) CBC W/AUTO [id number] 00:00:00 Test Item Value Reference Range Interpretation [...] NUCLEATED RBCS (test code = 0.00 K/UL 29647) CBC W/AUTO [id number] 00:00:00 Test Item Value Reference Range Interpretation [...] NUCLEATED RBCS (test code = 0.00 K/UL 22852) COMPREHENSIVE METABOLIC [id number] 00:00:00 Test Item Value Reference Range Interpretation Comments GLUCOSE (test code = 2217) 100 MG/DL BUN (test code = 2208) 13 MG/DL CREATININE (test code = 2214) 0.63 MG/DL eGFR (2020 CKD-EPI) (test 105 ML/MIN/1.73 code = 81787) CALC BUN/CREAT (test code = 21 RATIO [...] code = 2219) 33 U/L COMPREHENSIVE METABOLIC [id number] 00:00:00 Test Item Value Reference Range Interpretation Comments GLUCOSE (test code = 2217) 100 MG/DL BUN (test code = 2208) 13 MG/DL CREATININE (test code = 2214) 0.63 MG/DL eGFR (2020 CKD-EPI) (test 105 ML/MIN/1.73 code = 81201) CALC BUN/CREAT (test code = 21 RATIO [...] code = 2219) 33 U/L CBC W/AUTO [id number] 00:00:00 Test Item Value Reference Range Interpretation [...] NUCLEATED RBCS (test code = 0.00 K/UL 60846) CBC W/AUTO [id number] 00:00:00 Test Item Value Reference Range Interpretation [...] NUCLEATED RBCS (test code = 0.00 K/UL 19991) CBC W/AUTO [id number] 00:00:00 Test Item Value Reference Range Interpretation [...] NUCLEATED RBCS (test code = 0.00 K/UL 63228) COMPREHENSIVE METABOLIC [id number] 00:00:00 Test Item Value Reference Range Interpretation Comments GLUCOSE (test code = 2217) 100 MG/DL BUN (test code = 2208) 13 MG/DL CREATININE (test code = 2214) 0.63 MG/DL eGFR (2020 CKD-EPI) (test 105 ML/MIN/1.73 code = 91366) CALC BUN/CREAT (test code = 21 RATIO [...] code = 2219) 33 U/L COMPREHENSIVE METABOLIC [id number] 00:00:00 Test Item Value Reference Range Interpretation Comments GLUCOSE (test code = 2217) 100 MG/DL BUN (test code = 2208) 13 MG/DL CREATININE (test code = 2214) 0.63 MG/DL eGFR (2020 CKD-EPI) (test 105 ML/MIN/1.73 code = 62597) CALC BUN/CREAT (test code = 21 RATIO [...] code = 2219) 33 U/L CBC W/AUTO [id number] 00:00:00 Test Item Value Reference Range Interpretation [...] NUCLEATED RBCS (test code = 0.00 K/UL 89636) CBC W/AUTO [id number] 00:00:00 Test Item Value Reference Range Interpretation [...] NUCLEATED RBCS (test code = 0.00 K/UL 09681) CBC W/AUTO [id number] 00:00:00 Test Item Value Reference Range Interpretation [...] NUCLEATED RBCS (test code = 0.00 K/UL 95395) COMPREHENSIVE METABOLIC [id number] 00:00:00 Test Item Value Reference Range Interpretation Comments GLUCOSE (test code = 2217) 100 MG/DL BUN (test code = 2208) 13 MG/DL CREATININE (test code = 2214) 0.63 MG/DL eGFR (2020 CKD-EPI) (test 105 ML/MIN/1.73 code = 45990) CALC BUN/CREAT (test code = 21 RATIO [...] code = 2219) 33 U/L COMPREHENSIVE METABOLIC [id number] 00:00:00 Test Item Value Reference Range Interpretation Comments GLUCOSE (test code = 2217) 100 MG/DL BUN (test code = 2208) 13 MG/DL CREATININE (test code = 2214) 0.63 MG/DL eGFR (2020 CKD-EPI) (test 105 ML/MIN/1.73 code = 24598) CALC BUN/CREAT (test code = 21 RATIO [...] code = 2219) 33 U/L CBC W/AUTO [id number] 00:00:00 Test Item Value Reference Range Interpretation [...] NUCLEATED RBCS (test code = 0.00 K/UL 68252) CBC W/AUTO [id number] 00:00:00 Test Item Value Reference Range Interpretation [...] NUCLEATED RBCS (test code = 0.00 K/UL 23467) CBC W/AUTO [id number] 00:00:00 Test Item Value Reference Range Interpretation [...] NUCLEATED RBCS (test code = 0.00 K/UL 44845) COMPREHENSIVE METABOLIC [id number] 00:00:00 Test Item Value Reference Range Interpretation Comments GLUCOSE (test code = 2217) 100 MG/DL BUN (test code = 2208) 13 MG/DL CREATININE (test code = 2214) 0.63 MG/DL eGFR (2020 CKD-EPI) (test 105 ML/MIN/1.73 code = 36877) CALC BUN/CREAT (test code = 21 RATIO [...] code = 2219) 33 U/L COMPREHENSIVE METABOLIC [id number] 00:00:00 Test Item Value Reference Range Interpretation Comments GLUCOSE (test code = 2217) 100 MG/DL BUN (test code = 2208) 13 MG/DL CREATININE (test code = 2214) 0.63 MG/DL eGFR (2020 CKD-EPI) (test 105 ML/MIN/1.73 code = 14237) CALC BUN/CREAT (test code = 21 RATIO [...] ALT (test code = 2219) 33 U/L CALCIUM, [id number] 11:34:01 Test Item Value Reference Range Interpretation Comments CALCIUM, IONIZED (test code = 6.01 MG/DL 4.70-5.90 H 96943) INTACT [id number] 08:00:45 Test Item Value Reference Range Interpretation Comments INTACT PTH (test code = 5005) 143 PG/ML 15-65 H TSH, THIRD [id number] 06:20:18 Test Item Value Reference Range Interpretation Comments TSH, THIRD GENERATION (test code 3.840 UIU/ML 0.400-4.100 = 2821) [id number] 04:33:24 Test Item Value Reference Range Interpretation Comments LITHIUM (test code 0.54 MEQ/L 0.60-1.20 L UNLESS O THERWISE = 2038) INDICATED, ALL [facility]FOR[facility] [employer] [address] [place] [address] 4 LABORATORY DIRE CTOR: TANNER HOPKINS M.D. CLIA NUMBER [id number] [place] [id number] COMPREHENSIVE METABOLIC [id number] 04:08:07 Test Item Value Reference Range Interpretation Comments GLUCOSE (test code = 90 MG/DL 70-99 2216) BUN (test code = 13 MG/DL 6-20 2207) CREATININE (test 0.74 MG/DL 0.60-1.30 code = 2214) eGFR (2020 CKD-EPI) 97 ML/MIN/1.73 >60 (test code = 71739) CALC BUN/CREAT (test 18 RATIO 6-28 code = 2235) SODIUM (test code = 142 MEQ/L 173-702 8977) POTASSIUM (test code 5.0 MEQ/L 3.5-5.4 = 2227) CHLORIDE (test code 107 MEQ/L 95-107 = 2215) CARBON DIOXIDE (test 22 MEQ/L 19-31 code [...] code = 38 U/L 5-40 2218) LIPID [id number] 04:08:07 Test Item Value Reference Range Interpretation [...] MOREINFORMATION , SEE CLIENT ANNOUNCE MENT AT [email or web address] RISK RATIO LDL/HDL 2.37 RATIO <3.22 (test code = 2237) INTACT [id number] 00:00:00 Test Item Value Reference Range Interpretation Comments INTACT PTH (test code = 5005) 143 PG/ML INTACT [id number] 00:00:00 Test Item Value Reference Range Interpretation Comments INTACT PTH (test code = 5005) 143 PG/ML IONIZED CALCIUM, [id number] 00:00:00 Test Item Value Reference Range Interpretation Comments CALCIUM, IONIZED (test code = 6.01 MG/DL ) IONIZED CALCIUM, [id number] 00:00:00 Test Item Value Reference Range Interpretation Comments CALCIUM, IONIZED (test code = 6.01 MG/DL ) [id number] 00:00:00 Test Item Value Reference Range Interpretation Comments LITHIUM (test code = 2038) 0.54 MEQ/L [id number] 00:00:00 Test Item Value Reference Range Interpretation Comments LITHIUM (test code = 203) 0.54 MEQ/L [id number] 00:00:00 Test Item Value Reference Range Interpretation Comments LITHIUM (test code = 2039) 0.54 MEQ/L [id number] 00:00:00 Test Item Value Reference Range Interpretation Comments TSH, THIRD GENERATION (test code 3.840 UIU/ML = 2821) [id number] 00:00:00 Test Item Value Reference Range Interpretation Comments TSH, THIRD GENERATION (test code 3.840 UIU/ML = 2821) [id number] 00:00:00 Test Item Value Reference Range Interpretation Comments TSH, THIRD GENERATION (test code 3.840 UIU/ML = 2821) [id number] 00:00:00 Test Item Value Reference Range Interpretation Comments TSH, THIRD GENERATION (test code 3.840 UIU/ML = 2821) COMPREHENSIVE METABOLIC [id number] 00:00:00 Test Item Value Reference Range Interpretation Comments GLUCOSE (test code = 2217) 90 MG/DL BUN (test code = 2208) 13 MG/DL CREATININE (test code = 2214) 0.74 MG/DL eGFR (2020 CKD-EPI) (test code 97 ML/MIN/1.73 = 22291) CALC BUN/CREAT (test code = 18 RATIO [...] ALT (test code = 2219) 38 U/L [id number] 00:00:00 Test Item Value Reference Range Interpretation Comments TSH, THIRD GENERATION (test code 3.840 UIU/ML = 2821) COMPREHENSIVE METABOLIC [id number] 00:00:00 Test Item Value Reference Range Interpretation Comments GLUCOSE (test code = 2217) 90 MG/DL BUN (test code = 2208) 13 MG/DL CREATININE (test code = 2214) 0.74 MG/DL eGFR (2020 CKD-EPI) (test code 97 ML/MIN/1.73 = 14678) CALC BUN/CREAT (test code = 18 RATIO [...] code = 2219) 38 U/L COMPREHENSIVE METABOLIC [id number] 00:00:00 Test Item Value Reference Range Interpretation Comments GLUCOSE (test code = 2217) 90 MG/DL BUN (test code = 2208) 13 MG/DL CREATININE (test code = 2214) 0.74 MG/DL eGFR (2020 CKD-EPI) (test code 97 ML/MIN/1.73 = 33386) CALC BUN/CREAT (test code = 18 RATIO [...] (test code = 2219) 38 U/L LIPID [id number] 00:00:00 Test Item Value Reference Range Interpretation Comments CHOLESTEROL (test code = 2210) 123 MG/DL TRIGLYCERIDES (test code = 2232) 137 MG/DL HDL CHOLESTEROL (test code = 2220) 30 MG/DL CALC LDL CHOL (test code = 2237) 71 MG/DL RISK RATIO LDL/HDL (test code = 2.37 RATIO 2238) LIPID [id number] 00:00:00 Test Item Value Reference Range Interpretation Comments CHOLESTEROL (test code = 2210) 123 MG/DL TRIGLYCERIDES (test code = 2232) 137 MG/DL HDL CHOLESTEROL (test code = 2220) 30 MG/DL CALC LDL CHOL (test code = 2237) 71 MG/DL RISK RATIO LDL/HDL (test code = 2.37 RATIO 2238) INTACT [id number] 00:00:00 Test Item Value Reference Range Interpretation Comments INTACT PTH (test code = 5005) 143 PG/ML INTACT [id number] 00:00:00 Test Item Value Reference Range Interpretation Comments INTACT PTH (test code = 5005) 143 PG/ML INTACT [id number] 00:00:00 Test Item Value Reference Range Interpretation Comments INTACT PTH (test code = 5005) 143 PG/ML IONIZED CALCIUM, [id number] 00:00:00 Test Item Value Reference Range Interpretation Comments CALCIUM, IONIZED (test code = 6.01 MG/DL 11611) IONIZED CALCIUM, [id number] 00:00:00 Test Item Value Reference Range Interpretation Comments CALCIUM, IONIZED (test code = 6.01 MG/DL 07863) [id number] 00:00:00 Test Item Value Reference Range Interpretation Comments LITHIUM (test code = 2039) 0.54 MEQ/L [id number] 00:00:00 Test Item Value Reference Range Interpretation Comments LITHIUM (test code = 2039) 0.54 MEQ/L [id number] 00:00:00 Test Item Value Reference Range Interpretation Comments LITHIUM (test code = 2039) 0.54 MEQ/L LIPID [id number] 00:00:00 Test Item Value Reference Range Interpretation Comments CHOLESTEROL (test code = 2210) 123 MG/DL TRIGLYCERIDES (test code = 2232) 137 MG/DL HDL CHOLESTEROL (test code = 2220) 30 MG/DL CALC LDL CHOL (test code = 2237) 71 MG/DL RISK RATIO LDL/HDL (test code = 2.37 RATIO 2238) INTACT [id number] 00:00:00 Test Item Value Reference Range Interpretation Comments INTACT PTH (test code = 5005) 143 PG/ML INTACT [id number] 00:00:00 Test Item Value Reference Range Interpretation Comments INTACT PTH (test code = 5005) 143 PG/ML IONIZED CALCIUM, [id number] 00:00:00 Test Item Value Reference Range Interpretation Comments CALCIUM, IONIZED (test code = 6.01 MG/DL 69479) [id number] 00:00:00 Test Item Value Reference Range Interpretation Comments TSH, THIRD GENERATION (test code 3.840 UIU/ML = 2821) [id number] 00:00:00 Test Item Value Reference Range Interpretation Comments LITHIUM (test code = 2039) 0.54 MEQ/L [id number] 00:00:00 Test Item Value Reference Range Interpretation Comments LITHIUM (test code = 2039) 0.54 MEQ/L [id number] 00:00:00 Test Item Value Reference Range Interpretation Comments TSH, THIRD GENERATION (test code 3.840 UIU/ML = 2821) [id number] 00:00:00 Test Item Value Reference Range Interpretation Comments TSH, THIRD GENERATION (test code 3.840 UIU/ML = 2821) COMPREHENSIVE METABOLIC [id number] 00:00:00 Test Item Value Reference Range Interpretation Comments GLUCOSE (test code = 2217) 90 MG/DL BUN (test code = 2208) 13 MG/DL CREATININE (test code = 2214) 0.74 MG/DL eGFR (2020 CKD-EPI) (test code 97 ML/MIN/1.73 = 64077) CALC BUN/CREAT (test code = 18 RATIO [...] code = 2219) 38 U/L COMPREHENSIVE METABOLIC [id number] 00:00:00 Test Item Value Reference Range Interpretation Comments GLUCOSE (test code = 2217) 90 MG/DL BUN (test code = 2208) 13 MG/DL CREATININE (test code = 2214) 0.74 MG/DL eGFR (2020 CKD-EPI) (test code 97 ML/MIN/1.73 = 26257) CALC BUN/CREAT (test code = 18 RATIO [...] (test code = 2219) 38 U/L LIPID [id number] 00:00:00 Test Item Value Reference Range Interpretation Comments CHOLESTEROL (test code = 2210) 123 MG/DL TRIGLYCERIDES (test code = 2232) 137 MG/DL HDL CHOLESTEROL (test code = 2220) 30 MG/DL CALC LDL CHOL (test code = 2237) 71 MG/DL RISK RATIO LDL/HDL (test code = 2.37 RATIO 2238) LIPID [id number] 00:00:00 Test Item Value Reference Range Interpretation Comments CHOLESTEROL (test code = 2210) 123 MG/DL TRIGLYCERIDES (test code = 2232) 137 MG/DL HDL CHOLESTEROL (test code = 2220) 30 MG/DL CALC LDL CHOL (test code = 2237) 71 MG/DL RISK RATIO LDL/HDL (test code = 2.37 RATIO 2238) INTACT [id number] 00:00:00 Test Item Value Reference Range Interpretation Comments INTACT PTH (test code = 5005) 143 PG/ML INTACT [id number] 00:00:00 Test Item Value Reference Range Interpretation Comments INTACT PTH (test code = 5005) 143 PG/ML INTACT [id number] 00:00:00 Test Item Value Reference Range Interpretation Comments INTACT PTH (test code = 5005) 143 PG/ML IONIZED CALCIUM, [id number] 00:00:00 Test Item Value Reference Range Interpretation Comments CALCIUM, IONIZED (test code = 6.01 MG/DL 58794) IONIZED CALCIUM, [id number] 00:00:00 Test Item Value Reference Range Interpretation Comments CALCIUM, IONIZED (test code = 6.01 MG/DL 18410) [id number] 00:00:00 Test Item Value Reference Range Interpretation Comments LITHIUM (test code = 2039) 0.54 MEQ/L [id number] 00:00:00 Test Item Value Reference Range Interpretation Comments LITHIUM (test code = 2039) 0.54 MEQ/L [id number] 00:00:00 Test Item Value Reference Range Interpretation Comments LITHIUM (test code = 2039) 0.54 MEQ/L [id number] 00:00:00 Test Item Value Reference Range Interpretation Comments TSH, THIRD GENERATION (test code 3.840 UIU/ML = 2821) [id number] 00:00:00 Test Item Value Reference Range Interpretation Comments TSH, THIRD GENERATION (test code 3.840 UIU/ML = 2821) [id number] 00:00:00 Test Item Value Reference Range Interpretation Comments TSH, THIRD GENERATION (test code 3.840 UIU/ML = 2821) COMPREHENSIVE METABOLIC [id number] 00:00:00 Test Item Value Reference Range Interpretation Comments GLUCOSE (test code = 2217) 90 MG/DL BUN (test code = 2208) 13 MG/DL CREATININE (test code = 2214) 0.74 MG/DL eGFR (2020 CKD-EPI) (test code 97 ML/MIN/1.73 = 13289) CALC BUN/CREAT (test code = 18 RATIO [...] code = 2219) 38 U/L COMPREHENSIVE METABOLIC [id number] 00:00:00 Test Item Value Reference Range Interpretation Comments GLUCOSE (test code = 2217) 90 MG/DL BUN (test code = 2208) 13 MG/DL CREATININE (test code = 2214) 0.74 MG/DL eGFR (2020 CKD-EPI) (test code 97 ML/MIN/1.73 = 32712) CALC BUN/CREAT (test code = 18 RATIO [...] (test code = 2219) 38 U/L LIPID [id number] 00:00:00 Test Item Value Reference Range Interpretation Comments CHOLESTEROL (test code = 2210) 123 MG/DL TRIGLYCERIDES (test code = 2232) 137 MG/DL HDL CHOLESTEROL (test code = 2220) 30 MG/DL CALC LDL CHOL (test code = 2237) 71 MG/DL RISK RATIO LDL/HDL (test code = 2.37 RATIO 2238) LIPID [id number] 00:00:00 Test Item Value Reference Range Interpretation Comments CHOLESTEROL (test code = 2210) 123 MG/DL TRIGLYCERIDES (test code = 2232) 137 MG/DL HDL CHOLESTEROL (test code = 2220) 30 MG/DL CALC LDL CHOL (test code = 2237) 71 MG/DL RISK RATIO LDL/HDL (test code = 2.37 RATIO 2238) INTACT [id number] 00:00:00 Test Item Value Reference Range Interpretation Comments INTACT PTH (test code = 5005) 143 PG/ML INTACT [id number] 00:00:00 Test Item Value Reference Range Interpretation Comments INTACT PTH (test code = 5005) 143 PG/ML INTACT [id number] 00:00:00 Test Item Value Reference Range Interpretation Comments INTACT PTH (test code = 5005) 143 PG/ML IONIZED CALCIUM, [id number] 00:00:00 Test Item Value Reference Range Interpretation Comments CALCIUM, IONIZED (test code = 6.01 MG/DL 33060) IONIZED CALCIUM, [id number] 00:00:00 Test Item Value Reference Range Interpretation Comments CALCIUM, IONIZED (test code = 6.01 MG/DL 11760) [id number] 00:00:00 Test Item Value Reference Range Interpretation Comments LITHIUM (test code = 2039) 0.54 MEQ/L [id number] 00:00:00 Test Item Value Reference Range Interpretation Comments LITHIUM (test code = 2039) 0.54 MEQ/L [id number] 00:00:00 Test Item Value Reference Range Interpretation Comments LITHIUM (test code = 2039) 0.54 MEQ/L [id number] 00:00:00 Test Item Value Reference Range Interpretation Comments TSH, THIRD GENERATION (test code 3.840 UIU/ML = 2821) [id number] 00:00:00 Test Item Value Reference Range Interpretation Comments TSH, THIRD GENERATION (test code 3.840 UIU/ML = 2821) [id number] 00:00:00 Test Item Value Reference Range Interpretation Comments TSH, THIRD GENERATION (test code 3.840 UIU/ML = 2821) COMPREHENSIVE METABOLIC [id number] 00:00:00 Test Item Value Reference Range Interpretation Comments GLUCOSE (test code = 2217) 90 MG/DL BUN (test code = 2208) 13 MG/DL CREATININE (test code = 2214) 0.74 MG/DL eGFR (2020 CKD-EPI) (test code 97 ML/MIN/1.73 = 36815) CALC BUN/CREAT (test code = 18 RATIO [...] code = 2219) 38 U/L COMPREHENSIVE METABOLIC [id number] 00:00:00 Test Item Value Reference Range Interpretation Comments GLUCOSE (test code = 2217) 90 MG/DL BUN (test code = 2208) 13 MG/DL CREATININE (test code = 2214) 0.74 MG/DL eGFR (2020 CKD-EPI) (test code 97 ML/MIN/1.73 = 21854) CALC BUN/CREAT (test code = 18 RATIO [...] (test code = 2219) 38 U/L LIPID [id number] 00:00:00 Test Item Value Reference Range Interpretation Comments CHOLESTEROL (test code = 2210) 123 MG/DL TRIGLYCERIDES (test code = 2232) 137 MG/DL HDL CHOLESTEROL (test code = 2220) 30 MG/DL CALC LDL CHOL (test code = 2237) 71 MG/DL RISK RATIO LDL/HDL (test code = 2.37 RATIO 2238) LIPID [id number] 00:00:00 Test Item Value Reference Range Interpretation Comments CHOLESTEROL (test code = 2210) 123 MG/DL TRIGLYCERIDES (test code = 2232) 137 MG/DL HDL CHOLESTEROL (test code = 2220) 30 MG/DL CALC LDL CHOL (test code = 2237) 71 MG/DL RISK RATIO LDL/HDL (test code = 2.37 RATIO 2238) INTACT [id number] 00:00:00 Test Item Value Reference Range Interpretation Comments INTACT PTH (test code = 5005) 143 PG/ML INTACT [id number] 00:00:00 Test Item Value Reference Range Interpretation Comments INTACT PTH (test code = 5005) 143 PG/ML INTACT [id number] 00:00:00 Test Item Value Reference Range Interpretation Comments INTACT PTH (test code = 5005) 143 PG/ML IONIZED CALCIUM, [id number] 00:00:00 Test Item Value Reference Range Interpretation Comments CALCIUM, IONIZED (test code = 6.01 MG/DL 62526) IONIZED CALCIUM, [id number] 00:00:00 Test Item Value Reference Range Interpretation Comments CALCIUM, IONIZED (test code = 6.01 MG/DL 17269) [id number] 00:00:00 Test Item Value Reference Range Interpretation Comments LITHIUM (test code = 203) 0.54 MEQ/L [id number] 00:00:00 Test Item Value Reference Range Interpretation Comments LITHIUM (test code = 2038) 0.54 MEQ/L [id number] 00:00:00 Test Item Value Reference Range Interpretation Comments LITHIUM (test code = 2038) 0.54 MEQ/L [id number] 00:00:00 Test Item Value Reference Range Interpretation Comments TSH, THIRD GENERATION (test code 3.840 UIU/ML = 2821) [id number] 00:00:00 Test Item Value Reference Range Interpretation Comments TSH, THIRD GENERATION (test code 3.840 UIU/ML = 2821) [id number] 00:00:00 Test Item Value Reference Range Interpretation Comments TSH, THIRD GENERATION (test code 3.840 UIU/ML = 2821) COMPREHENSIVE METABOLIC [id number] 00:00:00 Test Item Value Reference Range Interpretation Comments GLUCOSE (test code = 2217) 90 MG/DL BUN (test code = 2208) 13 MG/DL CREATININE (test code = 2214) 0.74 MG/DL eGFR (2020 CKD-EPI) (test code 97 ML/MIN/1.73 = 32954) CALC BUN/CREAT (test code = 18 RATIO [...] code = 2219) 38 U/L COMPREHENSIVE METABOLIC [id number] 00:00:00 Test Item Value Reference Range Interpretation Comments GLUCOSE (test code = 2217) 90 MG/DL BUN (test code = 2208) 13 MG/DL CREATININE (test code = 2214) 0.74 MG/DL eGFR (2020 CKD-EPI) (test code 97 ML/MIN/1.73 = 22983) CALC BUN/CREAT (test code = 18 RATIO [...] (test code = 2219) 38 U/L LIPID [id number] 00:00:00 Test Item Value Reference Range Interpretation Comments CHOLESTEROL (test code = 2210) 123 MG/DL TRIGLYCERIDES (test code = 2232) 137 MG/DL HDL CHOLESTEROL (test code = 2220) 30 MG/DL CALC LDL CHOL (test code = 2237) 71 MG/DL RISK RATIO LDL/HDL (test code = 2.37 RATIO 2238) LIPID [id number] 00:00:00 Test Item Value Reference Range Interpretation Comments CHOLESTEROL (test code = 2210) 123 MG/DL TRIGLYCERIDES (test code = 2232) 137 MG/DL HDL CHOLESTEROL (test code = 2220) 30 MG/DL CALC LDL CHOL (test code = 2237) 71 MG/DL RISK RATIO LDL/HDL (test code = 2.37 RATIO 2238) INTACT [id number] 00:00:00 Test Item Value Reference Range Interpretation Comments INTACT PTH (test code = 5005) 143 PG/ML INTACT [id number] 00:00:00 Test Item Value Reference Range Interpretation Comments INTACT PTH (test code = 5005) 143 PG/ML INTACT [id number] 00:00:00 Test Item Value Reference Range Interpretation Comments INTACT PTH (test code = 5005) 143 PG/ML IONIZED CALCIUM, [id number] 00:00:00 Test Item Value Reference Range Interpretation Comments CALCIUM, IONIZED (test code = 6.01 MG/DL 25715) IONIZED CALCIUM, [id number] 00:00:00 Test Item Value Reference Range Interpretation Comments CALCIUM, IONIZED (test code = 6.01 MG/DL 83348) [id number] 00:00:00 Test Item Value Reference Range Interpretation Comments LITHIUM (test code = 2039) 0.54 MEQ/L [id number] 00:00:00 Test Item Value Reference Range Interpretation Comments LITHIUM (test code = 203) 0.54 MEQ/L [id number] 00:00:00 Test Item Value Reference Range Interpretation Comments LITHIUM (test code = 2039) 0.54 MEQ/L [id number] 00:00:00 Test Item Value Reference Range Interpretation Comments TSH, THIRD GENERATION (test code 3.840 UIU/ML = 2821) [id number] 00:00:00 Test Item Value Reference Range Interpretation Comments TSH, THIRD GENERATION (test code 3.840 UIU/ML = 2821) [id number] 00:00:00 Test Item Value Reference Range Interpretation Comments TSH, THIRD GENERATION (test code 3.840 UIU/ML = 2821) COMPREHENSIVE METABOLIC [id number] 00:00:00 Test Item Value Reference Range Interpretation Comments GLUCOSE (test code = 2217) 90 MG/DL BUN (test code = 2208) 13 MG/DL CREATININE (test code = 2214) 0.74 MG/DL eGFR (2020 CKD-EPI) (test code 97 ML/MIN/1.73 = 73089) CALC BUN/CREAT (test code = 18 RATIO [...] code = 2219) 38 U/L COMPREHENSIVE METABOLIC [id number] 00:00:00 Test Item Value Reference Range Interpretation Comments GLUCOSE (test code = 2217) 90 MG/DL BUN (test code = 2208) 13 MG/DL CREATININE (test code = 2214) 0.74 MG/DL eGFR (2020 CKD-EPI) (test code 97 ML/MIN/1.73 = 10566) CALC BUN/CREAT (test code = 18 RATIO [...] (test code = 2219) 38 U/L LIPID [id number] 00:00:00 Test Item Value Reference Range Interpretation Comments CHOLESTEROL (test code = 2210) 123 MG/DL TRIGLYCERIDES (test code = 2232) 137 MG/DL HDL CHOLESTEROL (test code = 2220) 30 MG/DL CALC LDL CHOL (test code = 2237) 71 MG/DL RISK RATIO LDL/HDL (test code = 2.37 RATIO 2238) LIPID [id number] 00:00:00 Test Item Value Reference Range Interpretation Comments CHOLESTEROL (test code = 2210) 123 MG/DL TRIGLYCERIDES (test code = 2232) 137 MG/DL HDL CHOLESTEROL (test code = 2220) 30 MG/DL CALC LDL CHOL (test code = 2237) 71 MG/DL RISK RATIO LDL/HDL (test code = 2.37 RATIO 8) INTACT [id number] 00:00:00 Test Item Value Reference Range Interpretation Comments INTACT PTH (test code = 5005) 143 PG/ML INTACT [id number] 00:00:00 Test Item Value Reference Range Interpretation Comments INTACT PTH (test code = 5005) 143 PG/ML INTACT [id number] 00:00:00 Test Item Value Reference Range Interpretation Comments INTACT PTH (test code = 5005) 143 PG/ML IONIZED CALCIUM, [id number] 00:00:00 Test Item Value Reference Range Interpretation Comments CALCIUM, IONIZED (test code = 6.01 MG/DL 51676) IONIZED CALCIUM, [id number] 00:00:00 Test Item Value Reference Range Interpretation Comments CALCIUM, IONIZED (test code = 6.01 MG/DL 09302) [id number] 00:00:00 Test Item Value Reference Range Interpretation Comments LITHIUM (test code = 2039) 0.54 MEQ/L [id number] 00:00:00 Test Item Value Reference Range Interpretation Comments LITHIUM (test code = 2039) 0.54 MEQ/L [id number] 00:00:00 Test Item Value Reference Range Interpretation Comments LITHIUM (test code = 2039) 0.54 MEQ/L [id number] 00:00:00 Test Item Value Reference Range Interpretation Comments TSH, THIRD GENERATION (test code 3.840 UIU/ML = 2821) [id number] 00:00:00 Test Item Value Reference Range Interpretation Comments TSH, THIRD GENERATION (test code 3.840 UIU/ML = 2821) [id number] 00:00:00 Test Item Value Reference Range Interpretation Comments TSH, THIRD GENERATION (test code 3.840 UIU/ML = 2821) COMPREHENSIVE METABOLIC [id number] 00:00:00 Test Item Value Reference Range Interpretation Comments GLUCOSE (test code = 2217) 90 MG/DL BUN (test code = 2208) 13 MG/DL CREATININE (test code = 2214) 0.74 MG/DL eGFR (2020 CKD-EPI) (test code 97 ML/MIN/1.73 = 03560) CALC BUN/CREAT (test code = 18 RATIO [...] code = 2219) 38 U/L COMPREHENSIVE METABOLIC [id number] 00:00:00 Test Item Value Reference Range Interpretation Comments GLUCOSE (test code = 2217) 90 MG/DL BUN (test code = 2208) 13 MG/DL CREATININE (test code = 2214) 0.74 MG/DL eGFR (2020 CKD-EPI) (test code 97 ML/MIN/1.73 = 93682) CALC BUN/CREAT (test code = 18 RATIO [...] (test code = 2219) 38 U/L LIPID [id number] 00:00:00 Test Item Value Reference Range Interpretation Comments CHOLESTEROL (test code = 2210) 123 MG/DL TRIGLYCERIDES (test code = 2232) 137 MG/DL HDL CHOLESTEROL (test code = 2220) 30 MG/DL CALC LDL CHOL (test code = 2237) 71 MG/DL RISK RATIO LDL/HDL (test code = 2.37 RATIO 2238) LIPID [id number] 00:00:00 Test Item Value Reference Range Interpretation Comments CHOLESTEROL (test code = 2210) 123 MG/DL TRIGLYCERIDES (test code = 2232) 137 MG/DL HDL CHOLESTEROL (test code = 2220) 30 MG/DL CALC LDL CHOL (test code = 2237) 71 MG/DL RISK RATIO LDL/HDL (test code = 2.37 RATIO 2238) INTACT [id number] 00:00:00 Test Item Value Reference Range Interpretation Comments INTACT PTH (test code = 5005) 143 PG/ML INTACT [id number] 00:00:00 Test Item Value Reference Range Interpretation Comments INTACT PTH (test code = 5005) 143 PG/ML INTACT [id number] 00:00:00 Test Item Value Reference Range Interpretation Comments INTACT PTH (test code = 5005) 143 PG/ML IONIZED CALCIUM, [id number] 00:00:00 Test Item Value Reference Range Interpretation Comments CALCIUM, IONIZED (test code = 6.01 MG/DL 87695) IONIZED CALCIUM, [id number] 00:00:00 Test Item Value Reference Range Interpretation Comments CALCIUM, IONIZED (test code = 6.01 MG/DL 44992) [id number] 00:00:00 Test Item Value Reference Range Interpretation Comments LITHIUM (test code = 2039) 0.54 MEQ/L [id number] 00:00:00 Test Item Value Reference Range Interpretation Comments LITHIUM (test code = 2039) 0.54 MEQ/L [id number] 00:00:00 Test Item Value Reference Range Interpretation Comments LITHIUM (test code = 2039) 0.54 MEQ/L [id number] 00:00:00 Test Item Value Reference Range Interpretation Comments TSH, THIRD GENERATION (test code 3.840 UIU/ML = 2821) [id number] 00:00:00 Test Item Value Reference Range Interpretation Comments TSH, THIRD GENERATION (test code 3.840 UIU/ML = 2821) [id number] 00:00:00 Test Item Value Reference Range Interpretation Comments TSH, THIRD GENERATION (test code 3.840 UIU/ML = 2821) COMPREHENSIVE METABOLIC [id number] 00:00:00 Test Item Value Reference Range Interpretation Comments GLUCOSE (test code = 2217) 90 MG/DL BUN (test code = 2208) 13 MG/DL CREATININE (test code = 2214) 0.74 MG/DL eGFR (2020 CKD-EPI) (test code 97 ML/MIN/1.73 = 99927) CALC BUN/CREAT (test code = 18 RATIO [...] code = 2219) 38 U/L COMPREHENSIVE METABOLIC [id number] 00:00:00 Test Item Value Reference Range Interpretation Comments GLUCOSE (test code = 2217) 90 MG/DL BUN (test code = 2208) 13 MG/DL CREATININE (test code = 2214) 0.74 MG/DL eGFR (2020 CKD-EPI) (test code 97 ML/MIN/1.73 = 21990) CALC BUN/CREAT (test code = 18 RATIO [...] (test code = 2219) 38 U/L LIPID [id number] 00:00:00 Test Item Value Reference Range Interpretation Comments CHOLESTEROL (test code = 2210) 123 MG/DL TRIGLYCERIDES (test code = 2232) 137 MG/DL HDL CHOLESTEROL (test code = 2220) 30 MG/DL CALC LDL CHOL (test code = 2237) 71 MG/DL RISK RATIO LDL/HDL (test code = 2.37 RATIO 2238) LIPID [id number] 00:00:00 Test Item Value Reference Range Interpretation Comments CHOLESTEROL (test code = 2210) 123 MG/DL TRIGLYCERIDES (test code = 2232) 137 MG/DL HDL CHOLESTEROL (test code = 2220) 30 MG/DL CALC LDL CHOL (test code = 2237) 71 MG/DL RISK RATIO LDL/HDL (test code = 2.37 RATIO 2238) INTACT [id number] 00:00:00 Test Item Value Reference Range Interpretation Comments INTACT PTH (test code = 5005) 143 PG/ML INTACT [id number] 00:00:00 Test Item Value Reference Range Interpretation Comments INTACT PTH (test code = 5005) 143 PG/ML INTACT [id number] 00:00:00 Test Item Value Reference Range Interpretation Comments INTACT PTH (test code = 5005) 143 PG/ML IONIZED CALCIUM, [id number] 00:00:00 Test Item Value Reference Range Interpretation Comments CALCIUM, IONIZED (test code = 6.01 MG/DL 57836) IONIZED CALCIUM, [id number] 00:00:00 Test Item Value Reference Range Interpretation Comments CALCIUM, IONIZED (test code = 6.01 MG/DL 31278) [id number] 00:00:00 Test Item Value Reference Range Interpretation Comments LITHIUM (test code = 2039) 0.54 MEQ/L [id number] 00:00:00 Test Item Value Reference Range Interpretation Comments LITHIUM (test code = 2039) 0.54 MEQ/L [id number] 00:00:00 Test Item Value Reference Range Interpretation Comments LITHIUM (test code = 2039) 0.54 MEQ/L [id number] 00:00:00 Test Item Value Reference Range Interpretation Comments TSH, THIRD GENERATION (test code 3.840 UIU/ML = 2821) [id number] 00:00:00 Test Item Value Reference Range Interpretation Comments TSH, THIRD GENERATION (test code 3.840 UIU/ML = 2821) [id number] 00:00:00 Test Item Value Reference Range Interpretation Comments TSH, THIRD GENERATION (test code 3.840 UIU/ML = 2821) COMPREHENSIVE METABOLIC [id number] 00:00:00 Test Item Value Reference Range Interpretation Comments GLUCOSE (test code = 2217) 90 MG/DL BUN (test code = 2208) 13 MG/DL CREATININE (test code = 2214) 0.74 MG/DL eGFR (2020 CKD-EPI) (test code 97 ML/MIN/1.73 = 14588) CALC BUN/CREAT (test code = 18 RATIO [...] code = 2219) 38 U/L COMPREHENSIVE METABOLIC [id number] 00:00:00 Test Item Value Reference Range Interpretation Comments GLUCOSE (test code = 2217) 90 MG/DL BUN (test code = 2208) 13 MG/DL CREATININE (test code = 2214) 0.74 MG/DL eGFR (2020 CKD-EPI) (test code 97 ML/MIN/1.73 = 98003) CALC BUN/CREAT (test code = 18 RATIO [...] (test code = 2219) 38 U/L LIPID [id number] 00:00:00 Test Item Value Reference Range Interpretation Comments CHOLESTEROL (test code = 2210) 123 MG/DL TRIGLYCERIDES (test code = 2232) 137 MG/DL HDL CHOLESTEROL (test code = 2220) 30 MG/DL CALC LDL CHOL (test code = 2237) 71 MG/DL RISK RATIO LDL/HDL (test code = 2.37 RATIO 2238) LIPID [id number] 00:00:00 Test Item Value Reference Range Interpretation Comments CHOLESTEROL (test code = 2210) 123 MG/DL TRIGLYCERIDES (test code = 2232) 137 MG/DL HDL CHOLESTEROL (test code = 2220) 30 MG/DL CALC LDL CHOL (test code = 2237) 71 MG/DL RISK RATIO LDL/HDL (test code = 2.37 RATIO 2238) INTACT [id number] 00:00:00 Test Item Value Reference Range Interpretation Comments INTACT PTH (test code = 5005) 143 PG/ML INTACT [id number] 00:00:00 Test Item Value Reference Range Interpretation Comments INTACT PTH (test code = 5005) 143 PG/ML INTACT [id number] 00:00:00 Test Item Value Reference Range Interpretation Comments INTACT PTH (test code = 5005) 143 PG/ML [id number] 00:00:00 Test Item Value Reference Range Interpretation Comments TSH, THIRD GENERATION (test code 3.840 UIU/ML = 2821) IONIZED CALCIUM, [id number] 00:00:00 Test Item Value Reference Range Interpretation Comments CALCIUM, IONIZED (test code = 6.01 MG/DL 55125) IONIZED CALCIUM, [id number] 00:00:00 Test Item Value Reference Range Interpretation Comments CALCIUM, IONIZED (test code = 6.01 MG/DL 90386) [id number] 00:00:00 Test Item Value Reference Range Interpretation Comments LITHIUM (test code = 2039) 0.54 MEQ/L [id number] 00:00:00 Test Item Value Reference Range Interpretation Comments LITHIUM (test code = 2039) 0.54 MEQ/L [id number] 00:00:00 Test Item Value Reference Range Interpretation Comments LITHIUM (test code = 2039) 0.54 MEQ/L [id number] 00:00:00 Test Item Value Reference Range Interpretation Comments TSH, THIRD GENERATION (test code 3.840 UIU/ML = 2821) [id number] 00:00:00 Test Item Value Reference Range Interpretation Comments TSH, THIRD GENERATION (test code 3.840 UIU/ML = 2821) COMPREHENSIVE METABOLIC [id number] 00:00:00 Test Item Value Reference Range Interpretation Comments GLUCOSE (test code = 2217) 90 MG/DL BUN (test code = 2208) 13 MG/DL CREATININE (test code = 2214) 0.74 MG/DL eGFR (2020 CKD-EPI) (test code 97 ML/MIN/1.73 = 75052) CALC BUN/CREAT (test code = 18 RATIO [...] code = 2219) 38 U/L COMPREHENSIVE METABOLIC [id number] 00:00:00 Test Item Value Reference Range Interpretation Comments GLUCOSE (test code = 2217) 90 MG/DL BUN (test code = 2208) 13 MG/DL CREATININE (test code = 2214) 0.74 MG/DL eGFR (2020 CKD-EPI) (test code 97 ML/MIN/1.73 = 96826) CALC BUN/CREAT (test code = 18 RATIO [...] (test code = 2219) 38 U/L LIPID [id number] 00:00:00 Test Item Value Reference Range Interpretation Comments CHOLESTEROL (test code = 2210) 123 MG/DL TRIGLYCERIDES (test code = 2232) 137 MG/DL HDL CHOLESTEROL (test code = 2220) 30 MG/DL CALC LDL CHOL (test code = 2237) 71 MG/DL RISK RATIO LDL/HDL (test code = 2.37 RATIO 2238) LIPID [id number] 00:00:00 Test Item Value Reference Range Interpretation Comments CHOLESTEROL (test code = 2210) 123 MG/DL TRIGLYCERIDES (test code = 2232) 137 MG/DL HDL CHOLESTEROL (test code = 2220) 30 MG/DL CALC LDL CHOL (test code = 2237) 71 MG/DL RISK RATIO LDL/HDL (test code = 2.37 RATIO 2238) INTACT [id number] 00:00:00 Test Item Value Reference Range Interpretation Comments INTACT PTH (test code = 5005) 143 PG/ML INTACT [id number] 00:00:00 Test Item Value Reference Range Interpretation Comments INTACT PTH (test code = 5005) 143 PG/ML INTACT [id number] 00:00:00 Test Item Value Reference Range Interpretation Comments INTACT PTH (test code = 5005) 143 PG/ML IONIZED CALCIUM, [id number] 00:00:00 Test Item Value Reference Range Interpretation Comments CALCIUM, IONIZED (test code = 6.01 MG/DL 13012) IONIZED CALCIUM, [id number] 00:00:00 Test Item Value Reference Range Interpretation Comments CALCIUM, IONIZED (test code = 6.01 MG/DL 60755) [id number] 00:00:00 Test Item Value Reference Range Interpretation Comments LITHIUM (test code = 2039) 0.54 MEQ/L [id number] 00:00:00 Test Item Value Reference Range Interpretation Comments LITHIUM (test code = 2039) 0.54 MEQ/L [id number] 00:00:00 Test Item Value Reference Range Interpretation Comments LITHIUM (test code = 2039) 0.54 MEQ/L [id number] 00:00:00 Test Item Value Reference Range Interpretation Comments TSH, THIRD GENERATION (test code 3.840 UIU/ML = 2821) [id number] 00:00:00 Test Item Value Reference Range Interpretation Comments TSH, THIRD GENERATION (test code 3.840 UIU/ML = 2821) [id number] 00:00:00 Test Item Value Reference Range Interpretation Comments TSH, THIRD GENERATION (test code 3.840 UIU/ML = 2821) COMPREHENSIVE METABOLIC [id number] 00:00:00 Test Item Value Reference Range Interpretation Comments GLUCOSE (test code = 2217) 90 MG/DL BUN (test code = 2208) 13 MG/DL CREATININE (test code = 2214) 0.74 MG/DL eGFR (2020 CKD-EPI) (test code 97 ML/MIN/1.73 = 68386) CALC BUN/CREAT (test code = 18 RATIO [...] code = 2219) 38 U/L COMPREHENSIVE METABOLIC [id number] 00:00:00 Test Item Value Reference Range Interpretation Comments GLUCOSE (test code = 2217) 90 MG/DL BUN (test code = 2208) 13 MG/DL CREATININE (test code = 2214) 0.74 MG/DL eGFR (2020 CKD-EPI) (test code 97 ML/MIN/1.73 = 96683) CALC BUN/CREAT (test code = 18 RATIO [...] (test code = 2219) 38 U/L LIPID [id number] 00:00:00 Test Item Value Reference Range Interpretation Comments CHOLESTEROL (test code = 2210) 123 MG/DL TRIGLYCERIDES (test code = 2232) 137 MG/DL HDL CHOLESTEROL (test code = 2220) 30 MG/DL CALC LDL CHOL (test code = 2237) 71 MG/DL RISK RATIO LDL/HDL (test code = 2.37 RATIO 2238) LIPID [id number] 00:00:00 Test Item Value Reference Range Interpretation Comments CHOLESTEROL (test code = 2210) 123 MG/DL TRIGLYCERIDES (test code = 2232) 137 MG/DL HDL CHOLESTEROL (test code = 2220) 30 MG/DL CALC LDL CHOL (test code = 2237) 71 MG/DL RISK RATIO LDL/HDL (test code = 2.37 RATIO 2238) INTACT [id number] 00:00:00 Test Item Value Reference Range Interpretation Comments INTACT PTH (test code = 5005) 143 PG/ML INTACT [id number] 00:00:00 Test Item Value Reference Range Interpretation Comments INTACT PTH (test code = 5005) 143 PG/ML INTACT [id number] 00:00:00 Test Item Value Reference Range Interpretation Comments INTACT PTH (test code = 5005) 143 PG/ML IONIZED CALCIUM, [id number] 00:00:00 Test Item Value Reference Range Interpretation Comments CALCIUM, IONIZED (test code = 6.01 MG/DL 66347) IONIZED CALCIUM, [id number] 00:00:00 Test Item Value Reference Range Interpretation Comments CALCIUM, IONIZED (test code = 6.01 MG/DL 47631) [id number] 00:00:00 Test Item Value Reference Range Interpretation Comments LITHIUM (test code = 2039) 0.54 MEQ/L [id number] 00:00:00 Test Item Value Reference Range Interpretation Comments LITHIUM (test code = 2039) 0.54 MEQ/L [id number] 00:00:00 Test Item Value Reference Range Interpretation Comments LITHIUM (test code = 2039) 0.54 MEQ/L [id number] 00:00:00 Test Item Value Reference Range Interpretation Comments TSH, THIRD GENERATION (test code 3.840 UIU/ML = 2821) [id number] 00:00:00 Test Item Value Reference Range Interpretation Comments TSH, THIRD GENERATION (test code 3.840 UIU/ML = 2821) [id number] 00:00:00 Test Item Value Reference Range Interpretation Comments TSH, THIRD GENERATION (test code 3.840 UIU/ML = 2821) COMPREHENSIVE METABOLIC [id number] 00:00:00 Test Item Value Reference Range Interpretation Comments GLUCOSE (test code = 2217) 90 MG/DL BUN (test code = 2208) 13 MG/DL CREATININE (test code = 2214) 0.74 MG/DL eGFR (2020 CKD-EPI) (test code 97 ML/MIN/1.73 = 22256) CALC BUN/CREAT (test code = 18 RATIO [...] code = 2219) 38 U/L COMPREHENSIVE METABOLIC [id number] 00:00:00 Test Item Value Reference Range Interpretation Comments GLUCOSE (test code = 2217) 90 MG/DL BUN (test code = 2208) 13 MG/DL CREATININE (test code = 2214) 0.74 MG/DL eGFR (2020 CKD-EPI) (test code 97 ML/MIN/1.73 = 69743) CALC BUN/CREAT (test code = 18 RATIO [...] (test code = 2219) 38 U/L LIPID [id number] 00:00:00 Test Item Value Reference Range Interpretation Comments CHOLESTEROL (test code = 2210) 123 MG/DL TRIGLYCERIDES (test code = 2232) 137 MG/DL HDL CHOLESTEROL (test code = 2220) 30 MG/DL CALC LDL CHOL (test code = 2237) 71 MG/DL RISK RATIO LDL/HDL (test code = 2.37 RATIO 2238) LIPID [id number] 00:00:00 Test Item Value Reference Range Interpretation Comments CHOLESTEROL (test code = 2210) 123 MG/DL TRIGLYCERIDES (test code = 2232) 137 MG/DL HDL CHOLESTEROL (test code = 2220) 30 MG/DL CALC LDL CHOL (test code = 2237) 71 MG/DL RISK RATIO LDL/HDL (test code = 2.37 RATIO 2238) INTACT [id number] 00:00:00 Test Item Value Reference Range Interpretation Comments INTACT PTH (test code = 5005) 143 PG/ML IONIZED CALCIUM, [id number] 00:00:00 Test Item Value Reference Range Interpretation Comments CALCIUM, IONIZED (test code = 6.08 MG/DL 57611) IONIZED CALCIUM, [id number] 00:00:00 Test Item Value Reference Range Interpretation Comments CALCIUM, IONIZED (test code = 6.08 MG/DL 88746) IONIZED CALCIUM, [id number] 00:00:00 Test Item Value Reference Range Interpretation Comments CALCIUM, IONIZED (test code = 6.08 MG/DL 89268) IONIZED CALCIUM, [id number] 00:00:00 Test Item Value Reference Range Interpretation Comments CALCIUM, IONIZED (test code = 6.08 MG/DL 68417) IONIZED CALCIUM, [id number] 00:00:00 Test Item Value Reference Range Interpretation Comments CALCIUM, IONIZED (test code = 6.08 MG/DL 54222) IONIZED CALCIUM, [id number] 00:00:00 Test Item Value Reference Range Interpretation Comments CALCIUM, IONIZED (test code = 6.08 MG/DL 82861) IONIZED CALCIUM, [id number] 00:00:00 Test Item Value Reference Range Interpretation Comments CALCIUM, IONIZED (test code = 6.08 MG/DL 29777) IONIZED CALCIUM, [id number] 00:00:00 Test Item Value Reference Range Interpretation Comments CALCIUM, IONIZED (test code = 6.08 MG/DL 20815) IONIZED CALCIUM, [id number] 00:00:00 Test Item Value Reference Range Interpretation Comments CALCIUM, IONIZED (test code = 6.08 MG/DL 12926) IONIZED CALCIUM, [id number] 00:00:00 Test Item Value Reference Range Interpretation Comments CALCIUM, IONIZED (test code = 6.08 MG/DL 78409) IONIZED CALCIUM, [id number] 00:00:00 Test Item Value Reference Range Interpretation Comments CALCIUM, IONIZED (test code = 6.08 MG/DL 63593) IONIZED CALCIUM, [id number] 00:00:00 Test Item Value Reference Range Interpretation Comments CALCIUM, IONIZED (test code = 6.08 MG/DL 05428) IONIZED CALCIUM, [id number] 00:00:00 Test Item Value Reference Range Interpretation Comments CALCIUM, IONIZED (test code = 6.08 MG/DL 57387) IONIZED CALCIUM, [id number] 00:00:00 Test Item Value Reference Range Interpretation Comments CALCIUM, IONIZED (test code = 6.08 MG/DL 16353) IONIZED CALCIUM, [id number] 00:00:00 Test Item Value Reference Range Interpretation Comments CALCIUM, IONIZED (test code = 6.08 MG/DL 82658) IONIZED CALCIUM, [id number] 00:00:00 Test Item Value Reference Range Interpretation Comments CALCIUM, IONIZED (test code = 6.08 MG/DL 44684) IONIZED CALCIUM, [id number] 00:00:00 Test Item Value Reference Range Interpretation Comments CALCIUM, IONIZED (test code = 6.08 MG/DL 27713) IONIZED CALCIUM, [id number] 00:00:00 Test Item Value Reference Range Interpretation Comments CALCIUM, IONIZED (test code = 6.08 MG/DL 62972) IONIZED CALCIUM, [id number] 00:00:00 Test Item Value Reference Range Interpretation Comments CALCIUM, IONIZED (test code = 6.08 MG/DL 37843) IONIZED CALCIUM, [id number] 00:00:00 Test Item Value Reference Range Interpretation Comments CALCIUM, IONIZED (test code = 6.08 MG/DL 26891) IONIZED CALCIUM, [id number] 00:00:00 Test Item Value Reference Range Interpretation Comments CALCIUM, IONIZED (test code = 6.08 MG/DL 41715) IONIZED CALCIUM, [id number] 00:00:00 Test Item Value Reference Range Interpretation Comments CALCIUM, IONIZED (test code = 6.08 MG/DL 34896) IONIZED CALCIUM, [id number] 00:00:00 Test Item Value Reference Range Interpretation Comments CALCIUM, IONIZED (test code = 6.08 MG/DL 54153) IONIZED CALCIUM, [id number] 00:00:00 Test Item Value Reference Range Interpretation Comments CALCIUM, IONIZED (test code = 6.08 MG/DL 18622) IONIZED CALCIUM, [id number] 00:00:00 Test Item Value Reference Range Interpretation Comments CALCIUM, IONIZED (test code = 6.08 MG/DL 64793) SARS-CoV-2 (COVID-19), RT-PCR/[id number] 10:52:51 Test Item Value Reference Interpretation Comments Range SARS-CoV-2 POSITIVE SEE NOTE A SARS-CoV-2 RNA INTERPRETATION DETECTEDPosit alek results (test code = 82680) are geovanna cative of the presence of [...] code = NOT [place]IF[place]: [place] [address]) Marii Chip Margot l-Time RT-PCR. The exp [...] provided by met hod given in report:[email or web address] [email or web address] Alternatively, see downloadable PD F fact sheet at:[email or web address] UNLESS OTHERWISE INDIC ATED, ALL TESTING PERFORM ED ATCLINICAL PATH [facility], [facility]. [address] [place] [address] LABORATORY DIRE CTOR: Elena HUTSON CLIA NUMBER [id number] CAP ACCREDITATION N O. [id number] SARS-CoV-2 (COVID-19) by RT-PCR (HIGH RISK)2021-04-12 00:00:00 Test Item Value Reference Range Interpretation Comments SARS-CoV-2 INTERPRETATION (test POSITIVE code = 52703) SOURCE (test code = 40778) NOT SPECIFIED SARS-CoV-2 (COVID-19) by RT-PCR (HIGH RISK)2021-04-12 00:00:00 Test Item Value Reference Range Interpretation Comments SARS-CoV-2 INTERPRETATION (test POSITIVE code = 98751) SOURCE (test code = 73907) NOT SPECIFIED SARS-CoV-2 (COVID-19) by RT-PCR (HIGH RISK)2021-04-12 00:00:00 Test Item Value Reference Range Interpretation Comments SARS-CoV-2 INTERPRETATION (test POSITIVE code = 33391) SOURCE (test code = 76732) NOT SPECIFIED SARS-CoV-2 (COVID-19) by RT-PCR (HIGH RISK)2021-04-12 00:00:00 Test Item Value Reference Range Interpretation Comments SARS-CoV-2 INTERPRETATION (test POSITIVE code = 11533) SOURCE (test code = 34373) NOT SPECIFIED SARS-CoV-2 (COVID-19) by RT-PCR (HIGH RISK)2021-04-12 00:00:00 Test Item Value Reference Range Interpretation Comments SARS-CoV-2 INTERPRETATION (test POSITIVE code = 59112) SOURCE (test code = 32457) NOT SPECIFIED SARS-CoV-2 (COVID-19) by RT-PCR (HIGH RISK)2021-04-12 00:00:00 Test Item Value Reference Range Interpretation Comments SARS-CoV-2 INTERPRETATION (test POSITIVE code = 89637) SOURCE (test code = 08985) NOT SPECIFIED SARS-CoV-2 (COVID-19) by RT-PCR (HIGH RISK)2021-04-12 00:00:00 Test Item Value Reference Range Interpretation Comments SARS-CoV-2 INTERPRETATION (test POSITIVE code = 22087) SOURCE (test code = 28835) NOT SPECIFIED SARS-CoV-2 (COVID-19) by RT-PCR (HIGH RISK)2021-04-12 00:00:00 Test Item Value Reference Range Interpretation Comments SARS-CoV-2 INTERPRETATION (test POSITIVE code = 92060) SOURCE (test code = 86182) NOT SPECIFIED SARS-CoV-2 (COVID-19) by RT-PCR (HIGH RISK)2021-04-12 00:00:00 Test Item Value Reference Range Interpretation Comments SARS-CoV-2 INTERPRETATION (test POSITIVE code = 52697) SOURCE (test code = 05437) NOT SPECIFIED SARS-CoV-2 (COVID-19) by RT-PCR (HIGH RISK)2021-04-12 00:00:00 Test Item Value Reference Range Interpretation Comments SARS-CoV-2 INTERPRETATION (test POSITIVE code = 08392) SOURCE (test code = 17112) NOT SPECIFIED SARS-CoV-2 (COVID-19) by RT-PCR (HIGH RISK)2021-04-12 00:00:00 Test Item Value Reference Range Interpretation Comments SARS-CoV-2 INTERPRETATION (test POSITIVE code = 49848) SOURCE (test code = 06730) NOT SPECIFIED SARS-CoV-2 (COVID-19) by RT-PCR (HIGH RISK)2021-04-12 00:00:00 Test Item Value Reference Range Interpretation Comments SARS-CoV-2 INTERPRETATION (test POSITIVE code = 01238) SOURCE (test code = 91298) NOT SPECIFIED SARS-CoV-2 (COVID-19) by RT-PCR (HIGH RISK)2021-04-12 00:00:00 Test Item Value Reference Range Interpretation Comments SARS-CoV-2 INTERPRETATION (test POSITIVE code = 77758) SOURCE (test code = 69441) NOT SPECIFIED SARS-CoV-2 (COVID-19) by RT-PCR (HIGH RISK)2021-04-12 00:00:00 Test Item Value Reference Range Interpretation Comments SARS-CoV-2 INTERPRETATION (test POSITIVE code = 82883) SOURCE (test code = 45259) NOT SPECIFIED SARS-CoV-2 (COVID-19) by RT-PCR (HIGH RISK)2021-04-12 00:00:00 Test Item Value Reference Range Interpretation Comments SARS-CoV-2 INTERPRETATION (test POSITIVE code = 70382) SOURCE (test code = 08795) NOT SPECIFIED SARS-CoV-2 (COVID-19) by RT-PCR (HIGH RISK)2021-04-12 00:00:00 Test Item Value Reference Range Interpretation Comments SARS-CoV-2 INTERPRETATION (test POSITIVE code = 14547) SOURCE (test code = 43693) NOT SPECIFIED SARS-CoV-2 (COVID-19) by RT-PCR (HIGH RISK)2021-04-12 00:00:00 Test Item Value Reference Range Interpretation Comments SARS-CoV-2 INTERPRETATION (test POSITIVE code = 77525) SOURCE (test code = 53832) NOT SPECIFIED SARS-CoV-2 (COVID-19) by RT-PCR (HIGH RISK)2021-04-12 00:00:00 Test Item Value Reference Range Interpretation Comments SARS-CoV-2 INTERPRETATION (test POSITIVE code = 35744) SOURCE (test code = 20960) NOT SPECIFIED SARS-CoV-2 (COVID-19) by RT-PCR (HIGH RISK)2021-04-12 00:00:00 Test Item Value Reference Range Interpretation Comments SARS-CoV-2 INTERPRETATION (test POSITIVE code = 23339) SOURCE (test code = 59670) NOT SPECIFIED SARS-CoV-2 (COVID-19) by RT-PCR (HIGH RISK)2021-04-12 00:00:00 Test Item Value Reference Range Interpretation Comments SARS-CoV-2 INTERPRETATION (test POSITIVE code = 19582) SOURCE (test code = 18145) NOT SPECIFIED SARS-CoV-2 (COVID-19) by RT-PCR (HIGH RISK)2021-04-12 00:00:00 Test Item Value Reference Range Interpretation Comments SARS-CoV-2 INTERPRETATION (test POSITIVE code = 29028) SOURCE (test code = 43057) NOT SPECIFIED SARS-CoV-2 (COVID-19) by RT-PCR (HIGH RISK)2021-04-12 00:00:00 Test Item Value Reference Range Interpretation Comments SARS-CoV-2 INTERPRETATION (test POSITIVE code = 86417) SOURCE (test code = 92755) NOT SPECIFIED SARS-CoV-2 (COVID-19) by RT-PCR (HIGH RISK)2021-04-12 00:00:00 Test Item Value Reference Range Interpretation Comments SARS-CoV-2 INTERPRETATION (test POSITIVE code = 46801) SOURCE (test code = 39556) NOT SPECIFIED SARS-CoV-2 (COVID-19) by RT-PCR (HIGH RISK)2021-04-12 00:00:00 Test Item Value Reference Range Interpretation Comments SARS-CoV-2 INTERPRETATION (test POSITIVE code = 07723) SOURCE (test code = 04605) NOT SPECIFIED SARS-CoV-2 (COVID-19) by RT-PCR (HIGH RISK)2021-04-12 00:00:00 Test Item Value Reference Range Interpretation Comments SARS-CoV-2 INTERPRETATION (test POSITIVE code = 98534) SOURCE (test code = 83909) NOT SPECIFIED VITAMIN D, 25 [id number] 00:00:00 Test Item Value Reference Range Interpretation Comments VITAMIN D, 25 OH (test code = 4958) 20 NG/ML VITAMIN D, 25 [id number] 00:00:00 Test Item Value Reference Range Interpretation Comments VITAMIN D, 25 OH (test code = 4958) 20 NG/ML [id number] 00:00:00 Test Item Value Reference Range Interpretation Comments LITHIUM (test code = 203) 0.39 MEQ/L [id number] 00:00:00 Test Item Value Reference Range Interpretation Comments LITHIUM (test code = 2039) 0.39 MEQ/L [id number] 00:00:00 Test Item Value Reference Range Interpretation Comments LITHIUM (test code = 2039) 0.39 MEQ/L COMPREHENSIVE METABOLIC [id number] 00:00:00 Test Item Value Reference Range Interpretation Comments GLUCOSE (test code = 2217) 109 MG/DL BUN (test code = 2208) 14 MG/DL CREATININE (test code = 2214) 0.64 MG/DL eGFR (2020 CKD-EPI) (test 106 ML/MIN/1.73 code = 41459) CALC BUN/CREAT (test code = 22 RATIO [...] code = 2219) 43 U/L COMPREHENSIVE METABOLIC [id number] 00:00:00 Test Item Value Reference Range Interpretation Comments GLUCOSE (test code = 2217) 109 MG/DL BUN (test code = 2208) 14 MG/DL CREATININE (test code = 2214) 0.64 MG/DL eGFR (2020 CKD-EPI) (test 106 ML/MIN/1.73 code = 74521) CALC BUN/CREAT (test code = 22 RATIO [...] code = 2219) 43 U/L COMPREHENSIVE METABOLIC [id number] 00:00:00 Test Item Value Reference Range Interpretation Comments GLUCOSE (test code = 2217) 109 MG/DL BUN (test code = 2208) 14 MG/DL CREATININE (test code = 2214) 0.64 MG/DL eGFR (2020 CKD-EPI) (test 106 ML/MIN/1.73 code = 59463) CALC BUN/CREAT (test code = 22 RATIO [...] BILIRUBIN, TOTAL (test code = 0.4 MG/DL 220) ALKALINE PHOSPHATASE (test 102 U/L code = 2204) AST (test code = 2218) 24 U/L ALT (test code = 2219) 43 U/L LIPID [id number] 00:00:00 Test Item Value Reference Range Interpretation Comments CHOLESTEROL (test code = 2210) 173 MG/DL TRIGLYCERIDES (test code = 2232) 248 MG/DL HDL CHOLESTEROL (test code = 2220) 33 MG/DL CALC LDL CHOL (test code = 2237) 105 MG/DL RISK RATIO LDL/HDL (test code = 3.18 RATIO 2238) LIPID [id number] 00:00:00 Test Item Value Reference Range Interpretation Comments CHOLESTEROL (test code = 2210) 173 MG/DL TRIGLYCERIDES (test code = 2232) 248 MG/DL HDL CHOLESTEROL (test code = 2220) 33 MG/DL CALC LDL CHOL (test code = 2237) 105 MG/DL RISK RATIO LDL/HDL (test code = 3.18 RATIO 2238) LIPID [id number] 00:00:00 Test Item Value Reference Range Interpretation Comments CHOLESTEROL (test code = 2210) 173 MG/DL TRIGLYCERIDES (test code = 2232) 248 MG/DL HDL CHOLESTEROL (test code = 2220) 33 MG/DL CALC LDL CHOL (test code = 2237) 105 MG/DL RISK RATIO LDL/HDL (test code = 3.18 RATIO 2238) [id number] 00:00:00 Test Item Value Reference Range Interpretation Comments TSH, THIRD GENERATION (test code 1.470 UIU/ML = 2821) [id number] 00:00:00 Test Item Value Reference Range Interpretation Comments TSH, THIRD GENERATION (test code 1.470 UIU/ML = 2821) [id number] 00:00:00 Test Item Value Reference Range Interpretation Comments TSH, THIRD GENERATION (test code 1.470 UIU/ML = 2821) VITAMIN D, 25 [id number] 00:00:00 Test Item Value Reference Range Interpretation Comments VITAMIN D, 25 OH (test code = 4958) 20 NG/ML VITAMIN D, 25 [id number] 00:00:00 Test Item Value Reference Range Interpretation Comments VITAMIN D, 25 OH (test code = 4958) 20 NG/ML [id number] 00:00:00 Test Item Value Reference Range Interpretation Comments LITHIUM (test code = 2038) 0.39 MEQ/L [id number] 00:00:00 Test Item Value Reference Range Interpretation Comments LITHIUM (test code = 2038) 0.39 MEQ/L [id number] 00:00:00 Test Item Value Reference Range Interpretation Comments LITHIUM (test code = 2038) 0.39 MEQ/L [id number] 00:00:00 Test Item Value Reference Range Interpretation Comments TSH, THIRD GENERATION (test code 1.470 UIU/ML = 2821) [id number] 00:00:00 Test Item Value Reference Range Interpretation Comments TSH, THIRD GENERATION (test code 1.470 UIU/ML = 2821) VITAMIN D, 25 [id number] 00:00:00 Test Item Value Reference Range Interpretation Comments VITAMIN D, 25 OH (test code = 4958) 20 NG/ML [id number] 00:00:00 Test Item Value Reference Range Interpretation Comments LITHIUM (test code = 2038) 0.39 MEQ/L [id number] 00:00:00 Test Item Value Reference Range Interpretation Comments LITHIUM (test code = 2038) 0.39 MEQ/L COMPREHENSIVE METABOLIC [id number] 00:00:00 Test Item Value Reference Range Interpretation Comments GLUCOSE (test code = 2217) 109 MG/DL BUN (test code = 2208) 14 MG/DL CREATININE (test code = 2214) 0.64 MG/DL eGFR (2020 CKD-EPI) (test 106 ML/MIN/1.73 code = 88933) CALC BUN/CREAT (test code = 22 RATIO [...] code = 2219) 43 U/L COMPREHENSIVE METABOLIC [id number] 00:00:00 Test Item Value Reference Range Interpretation Comments GLUCOSE (test code = 2217) 109 MG/DL BUN (test code = 2208) 14 MG/DL CREATININE (test code = 2214) 0.64 MG/DL eGFR (2020 CKD-EPI) (test 106 ML/MIN/1.73 code = 51297) CALC BUN/CREAT (test code = 22 RATIO [...] (test code = 2219) 43 U/L LIPID [id number] 00:00:00 Test Item Value Reference Range Interpretation Comments CHOLESTEROL (test code = 2210) 173 MG/DL TRIGLYCERIDES (test code = 2232) 248 MG/DL HDL CHOLESTEROL (test code = 2220) 33 MG/DL CALC LDL CHOL (test code = 2237) 105 MG/DL RISK RATIO LDL/HDL (test code = 3.18 RATIO 2238) LIPID [id number] 00:00:00 Test Item Value Reference Range Interpretation Comments CHOLESTEROL (test code = 2210) 173 MG/DL TRIGLYCERIDES (test code = 2232) 248 MG/DL HDL CHOLESTEROL (test code = 2220) 33 MG/DL CALC LDL CHOL (test code = 2237) 105 MG/DL RISK RATIO LDL/HDL (test code = 3.18 RATIO 2238) [id number] 00:00:00 Test Item Value Reference Range Interpretation Comments TSH, THIRD GENERATION (test code 1.470 UIU/ML = 2821) [id number] 00:00:00 Test Item Value Reference Range Interpretation Comments TSH, THIRD GENERATION (test code 1.470 UIU/ML = 2821) [id number] 00:00:00 Test Item Value Reference Range Interpretation Comments TSH, THIRD GENERATION (test code 1.470 UIU/ML = 2821) VITAMIN D, 25 [id number] 00:00:00 Test Item Value Reference Range Interpretation Comments VITAMIN D, 25 OH (test code = 4958) 20 NG/ML VITAMIN D, 25 [id number] 00:00:00 Test Item Value Reference Range Interpretation Comments VITAMIN D, 25 OH (test code = 4958) 20 NG/ML [id number] 00:00:00 Test Item Value Reference Range Interpretation Comments LITHIUM (test code = 2038) 0.39 MEQ/L [id number] 00:00:00 Test Item Value Reference Range Interpretation Comments LITHIUM (test code = 2039) 0.39 MEQ/L [id number] 00:00:00 Test Item Value Reference Range Interpretation Comments LITHIUM (test code = 203) 0.39 MEQ/L COMPREHENSIVE METABOLIC [id number] 00:00:00 Test Item Value Reference Range Interpretation Comments GLUCOSE (test code = 2217) 109 MG/DL BUN (test code = 2208) 14 MG/DL CREATININE (test code = 2214) 0.64 MG/DL eGFR (2020 CKD-EPI) (test 106 ML/MIN/1.73 code = 54341) CALC BUN/CREAT (test code = 22 RATIO [...] code = 2219) 43 U/L COMPREHENSIVE METABOLIC [id number] 00:00:00 Test Item Value Reference Range Interpretation Comments GLUCOSE (test code = 2217) 109 MG/DL BUN (test code = 2208) 14 MG/DL CREATININE (test code = 2214) 0.64 MG/DL eGFR (2020 CKD-EPI) (test 106 ML/MIN/1.73 code = 49679) CALC BUN/CREAT (test code = 22 RATIO [...] (test code = 2219) 43 U/L LIPID [id number] 00:00:00 Test Item Value Reference Range Interpretation Comments CHOLESTEROL (test code = 2210) 173 MG/DL TRIGLYCERIDES (test code = 2232) 248 MG/DL HDL CHOLESTEROL (test code = 2220) 33 MG/DL CALC LDL CHOL (test code = 2237) 105 MG/DL RISK RATIO LDL/HDL (test code = 3.18 RATIO 2238) LIPID [id number] 00:00:00 Test Item Value Reference Range Interpretation Comments CHOLESTEROL (test code = 2210) 173 MG/DL TRIGLYCERIDES (test code = 2232) 248 MG/DL HDL CHOLESTEROL (test code = 2220) 33 MG/DL CALC LDL CHOL (test code = 2237) 105 MG/DL RISK RATIO LDL/HDL (test code = 3.18 RATIO 2238) [id number] 00:00:00 Test Item Value Reference Range Interpretation Comments TSH, THIRD GENERATION (test code 1.470 UIU/ML = 2821) [id number] 00:00:00 Test Item Value Reference Range Interpretation Comments TSH, THIRD GENERATION (test code 1.470 UIU/ML = 2821) [id number] 00:00:00 Test Item Value Reference Range Interpretation Comments TSH, THIRD GENERATION (test code 1.470 UIU/ML = 2821) VITAMIN D, 25 [id number] 00:00:00 Test Item Value Reference Range Interpretation Comments VITAMIN D, 25 OH (test code = 4958) 20 NG/ML VITAMIN D, 25 [id number] 00:00:00 Test Item Value Reference Range Interpretation Comments VITAMIN D, 25 OH (test code = 4958) 20 NG/ML [id number] 00:00:00 Test Item Value Reference Range Interpretation Comments LITHIUM (test code = 2038) 0.39 MEQ/L [id number] 00:00:00 Test Item Value Reference Range Interpretation Comments LITHIUM (test code = 2039) 0.39 MEQ/L [id number] 00:00:00 Test Item Value Reference Range Interpretation Comments LITHIUM (test code = 2039) 0.39 MEQ/L COMPREHENSIVE METABOLIC [id number] 00:00:00 Test Item Value Reference Range Interpretation Comments GLUCOSE (test code = 2217) 109 MG/DL BUN (test code = 2208) 14 MG/DL CREATININE (test code = 2214) 0.64 MG/DL eGFR (2020 CKD-EPI) (test 106 ML/MIN/1.73 code = 65656) CALC BUN/CREAT (test code = 22 RATIO [...] code = 2219) 43 U/L COMPREHENSIVE METABOLIC [id number] 00:00:00 Test Item Value Reference Range Interpretation Comments GLUCOSE (test code = 2217) 109 MG/DL BUN (test code = 2208) 14 MG/DL CREATININE (test code = 2214) 0.64 MG/DL eGFR (2020 CKD-EPI) (test 106 ML/MIN/1.73 code = 16425) CALC BUN/CREAT (test code = 22 RATIO [...] (test code = 2219) 43 U/L LIPID [id number] 00:00:00 Test Item Value Reference Range Interpretation Comments CHOLESTEROL (test code = 2210) 173 MG/DL TRIGLYCERIDES (test code = 2232) 248 MG/DL HDL CHOLESTEROL (test code = 2220) 33 MG/DL CALC LDL CHOL (test code = 2237) 105 MG/DL RISK RATIO LDL/HDL (test code = 3.18 RATIO 2238) LIPID [id number] 00:00:00 Test Item Value Reference Range Interpretation Comments CHOLESTEROL (test code = 2210) 173 MG/DL TRIGLYCERIDES (test code = 2232) 248 MG/DL HDL CHOLESTEROL (test code = 2220) 33 MG/DL CALC LDL CHOL (test code = 2237) 105 MG/DL RISK RATIO LDL/HDL (test code = 3.18 RATIO 2238) [id number] 00:00:00 Test Item Value Reference Range Interpretation Comments TSH, THIRD GENERATION (test code 1.470 UIU/ML = 2821) [id number] 00:00:00 Test Item Value Reference Range Interpretation Comments TSH, THIRD GENERATION (test code 1.470 UIU/ML = 2821) [id number] 00:00:00 Test Item Value Reference Range Interpretation Comments TSH, THIRD GENERATION (test code 1.470 UIU/ML = 2821) VITAMIN D, 25 [id number] 00:00:00 Test Item Value Reference Range Interpretation Comments VITAMIN D, 25 OH (test code = 4958) 20 NG/ML VITAMIN D, 25 [id number] 00:00:00 Test Item Value Reference Range Interpretation Comments VITAMIN D, 25 OH (test code = 4958) 20 NG/ML [id number] 00:00:00 Test Item Value Reference Range Interpretation Comments LITHIUM (test code = 2039) 0.39 MEQ/L [id number] 00:00:00 Test Item Value Reference Range Interpretation Comments LITHIUM (test code = 2039) 0.39 MEQ/L [id number] 00:00:00 Test Item Value Reference Range Interpretation Comments LITHIUM (test code = 2039) 0.39 MEQ/L COMPREHENSIVE METABOLIC [id number] 00:00:00 Test Item Value Reference Range Interpretation Comments GLUCOSE (test code = 2217) 109 MG/DL BUN (test code = 2208) 14 MG/DL CREATININE (test code = 2214) 0.64 MG/DL eGFR (2020 CKD-EPI) (test 106 ML/MIN/1.73 code = 18092) CALC BUN/CREAT (test code = 22 RATIO [...] code = 2219) 43 U/L COMPREHENSIVE METABOLIC [id number] 00:00:00 Test Item Value Reference Range Interpretation Comments GLUCOSE (test code = 2217) 109 MG/DL BUN (test code = 2208) 14 MG/DL CREATININE (test code = 2214) 0.64 MG/DL eGFR (2020 CKD-EPI) (test 106 ML/MIN/1.73 code = 18592) CALC BUN/CREAT (test code = 22 RATIO [...] (test code = 2219) 43 U/L LIPID [id number] 00:00:00 Test Item Value Reference Range Interpretation Comments CHOLESTEROL (test code = 2210) 173 MG/DL TRIGLYCERIDES (test code = 2232) 248 MG/DL HDL CHOLESTEROL (test code = 2220) 33 MG/DL CALC LDL CHOL (test code = 2237) 105 MG/DL RISK RATIO LDL/HDL (test code = 3.18 RATIO 2238) LIPID [id number] 00:00:00 Test Item Value Reference Range Interpretation Comments CHOLESTEROL (test code = 2210) 173 MG/DL TRIGLYCERIDES (test code = 2232) 248 MG/DL HDL CHOLESTEROL (test code = 2220) 33 MG/DL CALC LDL CHOL (test code = 2237) 105 MG/DL RISK RATIO LDL/HDL (test code = 3.18 RATIO 2238) [id number] 00:00:00 Test Item Value Reference Range Interpretation Comments TSH, THIRD GENERATION (test code 1.470 UIU/ML = 2821) [id number] 00:00:00 Test Item Value Reference Range Interpretation Comments TSH, THIRD GENERATION (test code 1.470 UIU/ML = 2821) [id number] 00:00:00 Test Item Value Reference Range Interpretation Comments TSH, THIRD GENERATION (test code 1.470 UIU/ML = 2821) VITAMIN D, 25 [id number] 00:00:00 Test Item Value Reference Range Interpretation Comments VITAMIN D, 25 OH (test code = 4958) 20 NG/ML VITAMIN D, 25 [id number] 00:00:00 Test Item Value Reference Range Interpretation Comments VITAMIN D, 25 OH (test code = 4958) 20 NG/ML [id number] 00:00:00 Test Item Value Reference Range Interpretation Comments LITHIUM (test code = 2039) 0.39 MEQ/L [id number] 00:00:00 Test Item Value Reference Range Interpretation Comments LITHIUM (test code = 2039) 0.39 MEQ/L [id number] 00:00:00 Test Item Value Reference Range Interpretation Comments LITHIUM (test code = 2039) 0.39 MEQ/L COMPREHENSIVE METABOLIC [id number] 00:00:00 Test Item Value Reference Range Interpretation Comments GLUCOSE (test code = 2217) 109 MG/DL BUN (test code = 2208) 14 MG/DL CREATININE (test code = 2214) 0.64 MG/DL eGFR (2020 CKD-EPI) (test 106 ML/MIN/1.73 code = 31888) CALC BUN/CREAT (test code = 22 RATIO [...] code = 2219) 43 U/L COMPREHENSIVE METABOLIC [id number] 00:00:00 Test Item Value Reference Range Interpretation Comments GLUCOSE (test code = 2217) 109 MG/DL BUN (test code = 2208) 14 MG/DL CREATININE (test code = 2214) 0.64 MG/DL eGFR (2020 CKD-EPI) (test 106 ML/MIN/1.73 code = 49241) CALC BUN/CREAT (test code = 22 RATIO [...] (test code = 2219) 43 U/L LIPID [id number] 00:00:00 Test Item Value Reference Range Interpretation Comments CHOLESTEROL (test code = 2210) 173 MG/DL TRIGLYCERIDES (test code = 2232) 248 MG/DL HDL CHOLESTEROL (test code = 2220) 33 MG/DL CALC LDL CHOL (test code = 2237) 105 MG/DL RISK RATIO LDL/HDL (test code = 3.18 RATIO 2238) LIPID [id number] 00:00:00 Test Item Value Reference Range Interpretation Comments CHOLESTEROL (test code = 2210) 173 MG/DL TRIGLYCERIDES (test code = 2232) 248 MG/DL HDL CHOLESTEROL (test code = 2220) 33 MG/DL CALC LDL CHOL (test code = 2237) 105 MG/DL RISK RATIO LDL/HDL (test code = 3.18 RATIO 2238) [id number] 00:00:00 Test Item Value Reference Range Interpretation Comments TSH, THIRD GENERATION (test code 1.470 UIU/ML = 2821) [id number] 00:00:00 Test Item Value Reference Range Interpretation Comments TSH, THIRD GENERATION (test code 1.470 UIU/ML = 2821) [id number] 00:00:00 Test Item Value Reference Range Interpretation Comments TSH, THIRD GENERATION (test code 1.470 UIU/ML = 2821) VITAMIN D, 25 [id number] 00:00:00 Test Item Value Reference Range Interpretation Comments VITAMIN D, 25 OH (test code = 4958) 20 NG/ML VITAMIN D, 25 [id number] 00:00:00 Test Item Value Reference Range Interpretation Comments VITAMIN D, 25 OH (test code = 4958) 20 NG/ML [id number] 00:00:00 Test Item Value Reference Range Interpretation Comments LITHIUM (test code = 2039) 0.39 MEQ/L [id number] 00:00:00 Test Item Value Reference Range Interpretation Comments LITHIUM (test code = 2039) 0.39 MEQ/L [id number] 00:00:00 Test Item Value Reference Range Interpretation Comments LITHIUM (test code = 2039) 0.39 MEQ/L COMPREHENSIVE METABOLIC [id number] 00:00:00 Test Item Value Reference Range Interpretation Comments GLUCOSE (test code = 2217) 109 MG/DL BUN (test code = 2208) 14 MG/DL CREATININE (test code = 2214) 0.64 MG/DL eGFR (2020 CKD-EPI) (test 106 ML/MIN/1.73 code = 37536) CALC BUN/CREAT (test code = 22 RATIO [...] code = 2219) 43 U/L COMPREHENSIVE METABOLIC [id number] 00:00:00 Test Item Value Reference Range Interpretation Comments GLUCOSE (test code = 2217) 109 MG/DL BUN (test code = 2208) 14 MG/DL CREATININE (test code = 2214) 0.64 MG/DL eGFR (2020 CKD-EPI) (test 106 ML/MIN/1.73 code = 56291) CALC BUN/CREAT (test code = 22 RATIO [...] (test code = 2219) 43 U/L LIPID [id number] 00:00:00 Test Item Value Reference Range Interpretation Comments CHOLESTEROL (test code = 2210) 173 MG/DL TRIGLYCERIDES (test code = 2232) 248 MG/DL HDL CHOLESTEROL (test code = 2220) 33 MG/DL CALC LDL CHOL (test code = 2237) 105 MG/DL RISK RATIO LDL/HDL (test code = 3.18 RATIO 2238) LIPID [id number] 00:00:00 Test Item Value Reference Range Interpretation Comments CHOLESTEROL (test code = 2210) 173 MG/DL TRIGLYCERIDES (test code = 2232) 248 MG/DL HDL CHOLESTEROL (test code = 2220) 33 MG/DL CALC LDL CHOL (test code = 2237) 105 MG/DL RISK RATIO LDL/HDL (test code = 3.18 RATIO 2238) [id number] 00:00:00 Test Item Value Reference Range Interpretation Comments TSH, THIRD GENERATION (test code 1.470 UIU/ML = 2821) [id number] 00:00:00 Test Item Value Reference Range Interpretation Comments TSH, THIRD GENERATION (test code 1.470 UIU/ML = 2821) [id number] 00:00:00 Test Item Value Reference Range Interpretation Comments TSH, THIRD GENERATION (test code 1.470 UIU/ML = 2821) VITAMIN D, 25 [id number] 00:00:00 Test Item Value Reference Range Interpretation Comments VITAMIN D, 25 OH (test code = 4958) 20 NG/ML VITAMIN D, 25 [id number] 00:00:00 Test Item Value Reference Range Interpretation Comments VITAMIN D, 25 OH (test code = 4958) 20 NG/ML [id number] 00:00:00 Test Item Value Reference Range Interpretation Comments LITHIUM (test code = 2039) 0.39 MEQ/L [id number] 00:00:00 Test Item Value Reference Range Interpretation Comments LITHIUM (test code = 2039) 0.39 MEQ/L [id number] 00:00:00 Test Item Value Reference Range Interpretation Comments LITHIUM (test code = 2039) 0.39 MEQ/L COMPREHENSIVE METABOLIC [id number] 00:00:00 Test Item Value Reference Range Interpretation Comments GLUCOSE (test code = 2217) 109 MG/DL BUN (test code = 2208) 14 MG/DL CREATININE (test code = 2214) 0.64 MG/DL eGFR (2020 CKD-EPI) (test 106 ML/MIN/1.73 code = 87493) CALC BUN/CREAT (test code = 22 RATIO [...] code = 2219) 43 U/L COMPREHENSIVE METABOLIC [id number] 00:00:00 Test Item Value Reference Range Interpretation Comments GLUCOSE (test code = 2217) 109 MG/DL BUN (test code = 2208) 14 MG/DL CREATININE (test code = 2214) 0.64 MG/DL eGFR (2020 CKD-EPI) (test 106 ML/MIN/1.73 code = 14831) CALC BUN/CREAT (test code = 22 RATIO [...] (test code = 2219) 43 U/L LIPID [id number] 00:00:00 Test Item Value Reference Range Interpretation Comments CHOLESTEROL (test code = 2210) 173 MG/DL TRIGLYCERIDES (test code = 2232) 248 MG/DL HDL CHOLESTEROL (test code = 2220) 33 MG/DL CALC LDL CHOL (test code = 2237) 105 MG/DL RISK RATIO LDL/HDL (test code = 3.18 RATIO 2238) LIPID [id number] 00:00:00 Test Item Value Reference Range Interpretation Comments CHOLESTEROL (test code = 2210) 173 MG/DL TRIGLYCERIDES (test code = 2232) 248 MG/DL HDL CHOLESTEROL (test code = 2220) 33 MG/DL CALC LDL CHOL (test code = 2237) 105 MG/DL RISK RATIO LDL/HDL (test code = 3.18 RATIO 2238) [id number] 00:00:00 Test Item Value Reference Range Interpretation Comments TSH, THIRD GENERATION (test code 1.470 UIU/ML = 2821) [id number] 00:00:00 Test Item Value Reference Range Interpretation Comments TSH, THIRD GENERATION (test code 1.470 UIU/ML = 2821) [id number] 00:00:00 Test Item Value Reference Range Interpretation Comments TSH, THIRD GENERATION (test code 1.470 UIU/ML = 2821) VITAMIN D, 25 [id number] 00:00:00 Test Item Value Reference Range Interpretation Comments VITAMIN D, 25 OH (test code = 4958) 20 NG/ML VITAMIN D, 25 [id number] 00:00:00 Test Item Value Reference Range Interpretation Comments VITAMIN D, 25 OH (test code = 4958) 20 NG/ML [id number] 00:00:00 Test Item Value Reference Range Interpretation Comments LITHIUM (test code = 2039) 0.39 MEQ/L [id number] 00:00:00 Test Item Value Reference Range Interpretation Comments LITHIUM (test code = 2039) 0.39 MEQ/L [id number] 00:00:00 Test Item Value Reference Range Interpretation Comments LITHIUM (test code = 2039) 0.39 MEQ/L COMPREHENSIVE METABOLIC [id number] 00:00:00 Test Item Value Reference Range Interpretation Comments GLUCOSE (test code = 2217) 109 MG/DL BUN (test code = 2208) 14 MG/DL CREATININE (test code = 2214) 0.64 MG/DL eGFR (2020 CKD-EPI) (test 106 ML/MIN/1.73 code = 90968) CALC BUN/CREAT (test code = 22 RATIO [...] code = 2219) 43 U/L COMPREHENSIVE METABOLIC [id number] 00:00:00 Test Item Value Reference Range Interpretation Comments GLUCOSE (test code = 2217) 109 MG/DL BUN (test code = 2208) 14 MG/DL CREATININE (test code = 2214) 0.64 MG/DL eGFR (2020 CKD-EPI) (test 106 ML/MIN/1.73 code = 67513) CALC BUN/CREAT (test code = 22 RATIO [...] (test code = 2219) 43 U/L LIPID [id number] 00:00:00 Test Item Value Reference Range Interpretation Comments CHOLESTEROL (test code = 2210) 173 MG/DL TRIGLYCERIDES (test code = 2232) 248 MG/DL HDL CHOLESTEROL (test code = 2220) 33 MG/DL CALC LDL CHOL (test code = 2237) 105 MG/DL RISK RATIO LDL/HDL (test code = 3.18 RATIO 2238) LIPID [id number] 00:00:00 Test Item Value Reference Range Interpretation Comments CHOLESTEROL (test code = 2210) 173 MG/DL TRIGLYCERIDES (test code = 2232) 248 MG/DL HDL CHOLESTEROL (test code = 2220) 33 MG/DL CALC LDL CHOL (test code = 2237) 105 MG/DL RISK RATIO LDL/HDL (test code = 3.18 RATIO 2238) [id number] 00:00:00 Test Item Value Reference Range Interpretation Comments TSH, THIRD GENERATION (test code 1.470 UIU/ML = 2821) [id number] 00:00:00 Test Item Value Reference Range Interpretation Comments TSH, THIRD GENERATION (test code 1.470 UIU/ML = 2821) [id number] 00:00:00 Test Item Value Reference Range Interpretation Comments TSH, THIRD GENERATION (test code 1.470 UIU/ML = 2821) VITAMIN D, 25 [id number] 00:00:00 Test Item Value Reference Range Interpretation Comments VITAMIN D, 25 OH (test code = 4958) 20 NG/ML VITAMIN D, 25 [id number] 00:00:00 Test Item Value Reference Range Interpretation Comments VITAMIN D, 25 OH (test code = 4958) 20 NG/ML [id number] 00:00:00 Test Item Value Reference Range Interpretation Comments LITHIUM (test code = 203) 0.39 MEQ/L [id number] 00:00:00 Test Item Value Reference Range Interpretation Comments LITHIUM (test code = 203) 0.39 MEQ/L [id number] 00:00:00 Test Item Value Reference Range Interpretation Comments LITHIUM (test code = 203) 0.39 MEQ/L COMPREHENSIVE METABOLIC [id number] 00:00:00 Test Item Value Reference Range Interpretation Comments GLUCOSE (test code = 2217) 109 MG/DL BUN (test code = 2208) 14 MG/DL CREATININE (test code = 2214) 0.64 MG/DL eGFR (2020 CKD-EPI) (test 106 ML/MIN/1.73 code = 83448) CALC BUN/CREAT (test code = 22 RATIO [...] code = 2219) 43 U/L COMPREHENSIVE METABOLIC [id number] 00:00:00 Test Item Value Reference Range Interpretation Comments GLUCOSE (test code = 2217) 109 MG/DL BUN (test code = 2208) 14 MG/DL CREATININE (test code = 2214) 0.64 MG/DL eGFR (2020 CKD-EPI) (test 106 ML/MIN/1.73 code = 99434) CALC BUN/CREAT (test code = 22 RATIO [...] (test code = 2219) 43 U/L LIPID [id number] 00:00:00 Test Item Value Reference Range Interpretation Comments CHOLESTEROL (test code = 2210) 173 MG/DL TRIGLYCERIDES (test code = 2232) 248 MG/DL HDL CHOLESTEROL (test code = 2220) 33 MG/DL CALC LDL CHOL (test code = 2237) 105 MG/DL RISK RATIO LDL/HDL (test code = 3.18 RATIO 2238) LIPID [id number] 00:00:00 Test Item Value Reference Range Interpretation Comments CHOLESTEROL (test code = 2210) 173 MG/DL TRIGLYCERIDES (test code = 2232) 248 MG/DL HDL CHOLESTEROL (test code = 2220) 33 MG/DL CALC LDL CHOL (test code = 2237) 105 MG/DL RISK RATIO LDL/HDL (test code = 3.18 RATIO 2238) [id number] 00:00:00 Test Item Value Reference Range Interpretation Comments TSH, THIRD GENERATION (test code 1.470 UIU/ML = 2821) [id number] 00:00:00 Test Item Value Reference Range Interpretation Comments TSH, THIRD GENERATION (test code 1.470 UIU/ML = 2821) [id number] 00:00:00 Test Item Value Reference Range Interpretation Comments TSH, THIRD GENERATION (test code 1.470 UIU/ML = 2821) VITAMIN D, 25 [id number] 00:00:00 Test Item Value Reference Range Interpretation Comments VITAMIN D, 25 OH (test code = 4958) 20 NG/ML VITAMIN D, 25 [id number] 00:00:00 Test Item Value Reference Range Interpretation Comments VITAMIN D, 25 OH (test code = 4958) 20 NG/ML [id number] 00:00:00 Test Item Value Reference Range Interpretation Comments LITHIUM (test code = 2039) 0.39 MEQ/L [id number] 00:00:00 Test Item Value Reference Range Interpretation Comments LITHIUM (test code = 2039) 0.39 MEQ/L [id number] 00:00:00 Test Item Value Reference Range Interpretation Comments LITHIUM (test code = 2039) 0.39 MEQ/L COMPREHENSIVE METABOLIC [id number] 00:00:00 Test Item Value Reference Range Interpretation Comments GLUCOSE (test code = 2217) 109 MG/DL BUN (test code = 2208) 14 MG/DL CREATININE (test code = 2214) 0.64 MG/DL eGFR (2020 CKD-EPI) (test 106 ML/MIN/1.73 code = 19004) CALC BUN/CREAT (test code = 22 RATIO [...] code = 2219) 43 U/L COMPREHENSIVE METABOLIC [id number] 00:00:00 Test Item Value Reference Range Interpretation Comments GLUCOSE (test code = 2217) 109 MG/DL BUN (test code = 2208) 14 MG/DL CREATININE (test code = 2214) 0.64 MG/DL eGFR (2020 CKD-EPI) (test 106 ML/MIN/1.73 code = 98461) CALC BUN/CREAT (test code = 22 RATIO [...] (test code = 2219) 43 U/L LIPID [id number] 00:00:00 Test Item Value Reference Range Interpretation Comments CHOLESTEROL (test code = 2210) 173 MG/DL TRIGLYCERIDES (test code = 2232) 248 MG/DL HDL CHOLESTEROL (test code = 2220) 33 MG/DL CALC LDL CHOL (test code = 2237) 105 MG/DL RISK RATIO LDL/HDL (test code = 3.18 RATIO 2238) LIPID [id number] 00:00:00 Test Item Value Reference Range Interpretation Comments CHOLESTEROL (test code = 2210) 173 MG/DL TRIGLYCERIDES (test code = 2232) 248 MG/DL HDL CHOLESTEROL (test code = 2220) 33 MG/DL CALC LDL CHOL (test code = 2237) 105 MG/DL RISK RATIO LDL/HDL (test code = 3.18 RATIO 2238) [id number] 00:00:00 Test Item Value Reference Range Interpretation Comments TSH, THIRD GENERATION (test code 1.470 UIU/ML = 2821) [id number] 00:00:00 Test Item Value Reference Range Interpretation Comments TSH, THIRD GENERATION (test code 1.470 UIU/ML = 2821) [id number] 00:00:00 Test Item Value Reference Range Interpretation Comments TSH, THIRD GENERATION (test code 1.470 UIU/ML = 2821) VITAMIN D, 25 [id number] 00:00:00 Test Item Value Reference Range Interpretation Comments VITAMIN D, 25 OH (test code = 4958) 20 NG/ML VITAMIN D, 25 [id number] 00:00:00 Test Item Value Reference Range Interpretation Comments VITAMIN D, 25 OH (test code = 4958) 20 NG/ML [id number] 00:00:00 Test Item Value Reference Range Interpretation Comments LITHIUM (test code = 2039) 0.39 MEQ/L [id number] 00:00:00 Test Item Value Reference Range Interpretation Comments LITHIUM (test code = 203) 0.39 MEQ/L [id number] 00:00:00 Test Item Value Reference Range Interpretation Comments LITHIUM (test code = 2039) 0.39 MEQ/L COMPREHENSIVE METABOLIC [id number] 00:00:00 Test Item Value Reference Range Interpretation Comments GLUCOSE (test code = 2217) 109 MG/DL BUN (test code = 2208) 14 MG/DL CREATININE (test code = 2214) 0.64 MG/DL eGFR (2020 CKD-EPI) (test 106 ML/MIN/1.73 code = 74444) CALC BUN/CREAT (test code = 22 RATIO [...] code = 2219) 43 U/L COMPREHENSIVE METABOLIC [id number] 00:00:00 Test Item Value Reference Range Interpretation Comments GLUCOSE (test code = 2217) 109 MG/DL BUN (test code = 2208) 14 MG/DL CREATININE (test code = 2214) 0.64 MG/DL eGFR (2020 CKD-EPI) (test 106 ML/MIN/1.73 code = 10758) CALC BUN/CREAT (test code = 22 RATIO [...] (test code = 2219) 43 U/L LIPID [id number] 00:00:00 Test Item Value Reference Range Interpretation Comments CHOLESTEROL (test code = 2210) 173 MG/DL TRIGLYCERIDES (test code = 2232) 248 MG/DL HDL CHOLESTEROL (test code = 2220) 33 MG/DL CALC LDL CHOL (test code = 2237) 105 MG/DL RISK RATIO LDL/HDL (test code = 3.18 RATIO 2238) LIPID [id number] 00:00:00 Test Item Value Reference Range Interpretation Comments CHOLESTEROL (test code = 2210) 173 MG/DL TRIGLYCERIDES (test code = 2232) 248 MG/DL HDL CHOLESTEROL (test code = 2220) 33 MG/DL CALC LDL CHOL (test code = 2237) 105 MG/DL RISK RATIO LDL/HDL (test code = 3.18 RATIO 2238) [id number] 00:00:00 Test Item Value Reference Range Interpretation Comments TSH, THIRD GENERATION (test code 1.470 UIU/ML = 2821) [id number] 00:00:00 Test Item Value Reference Range Interpretation Comments TSH, THIRD GENERATION (test code 1.470 UIU/ML = 2821) [id number] 00:00:00 Test Item Value Reference Range Interpretation Comments TSH, THIRD GENERATION (test code 1.470 UIU/ML = 2821) [id number] 00:00:00 Test Item Value Reference Range Interpretation Comments LITHIUM (test code = 9) 0.38 MEQ/L [id number] 00:00:00 Test Item Value Reference Range Interpretation Comments LITHIUM (test code = 2038) 0.38 MEQ/L [id number] 00:00:00 Test Item Value Reference Range Interpretation Comments LITHIUM (test code = 2039) 0.38 MEQ/L THYROID II PROFILE (T3U, T4, T7, TSH)2020-10-05 00:00:00 Test Item Value Reference Range Interpretation Comments T-UPTAKE (test code = 2817) 30.2 % THYROX. BIND. CAPAC. (test code 1.1 = 04540) T4 (THYROXINE) (test code = 4.4 UG/DL 2818) CORRECTED T4 (FTI) (test code = 4.0 UG/DL 2819) TSH, THIRD GENERATION (test code 4.570 UIU/ML = 2821) THYROID II PROFILE (T3U, T4, T7, TSH)2020-10-05 00:00:00 Test Item Value Reference Range Interpretation Comments T-UPTAKE (test code = 2817) 30.2 % THYROX. BIND. CAPAC. (test code 1.1 = 62764) T4 (THYROXINE) (test code = 4.4 UG/DL 2819) CORRECTED T4 (FTI) (test code = 4.0 UG/DL 2820) TSH, THIRD GENERATION (test code 4.570 UIU/ML = 2821) CBC W/AUTO [id number] 00:00:00 Test Item Value Reference Range Interpretation [...] NUCLEATED RBCS (test code = 0.00 K/UL 09896) CBC W/AUTO [id number] 00:00:00 Test Item Value Reference Range Interpretation [...] NUCLEATED RBCS (test code = 0.00 K/UL 14472) CBC W/AUTO [id number] 00:00:00 Test Item Value Reference Range Interpretation [...] NUCLEATED RBCS (test code = 0.00 K/UL 55657) CBC W/AUTO [id number] 00:00:00 Test Item Value Reference Range Interpretation [...] NUCLEATED RBCS (test code = 0.00 K/UL 10973) CBC W/AUTO [id number] 00:00:00 Test Item Value Reference Range Interpretation [...] NUCLEATED RBCS (test code = 0.00 K/UL 66749) LIPID [id number] 00:00:00 Test Item Value Reference Range Interpretation Comments CHOLESTEROL (test code = 2210) 112 MG/DL TRIGLYCERIDES (test code = 2232) 140 MG/DL HDL CHOLESTEROL (test code = 2220) 34 MG/DL CALC LDL CHOL (test code = 2237) 56 MG/DL RISK RATIO LDL/HDL (test code = 1.65 RATIO 2238) LIPID [id number] 00:00:00 Test Item Value Reference Range Interpretation Comments CHOLESTEROL (test code = 2210) 112 MG/DL TRIGLYCERIDES (test code = 2232) 140 MG/DL HDL CHOLESTEROL (test code = 2220) 34 MG/DL CALC LDL CHOL (test code = 2237) 56 MG/DL RISK RATIO LDL/HDL (test code = 1.65 RATIO 2238) COMPREHENSIVE METABOLIC [id number] 00:00:00 Test Item Value Reference Range Interpretation Comments GLUCOSE (test code = 2217) 109 MG/DL BUN (test code = 2208) 11 MG/DL CREATININE (test code = 2214) 0.68 MG/DL eGFR AMER. (test code 116 ML/MIN/1.73 = 58413) eGFR NON- AMER. (test 100 ML/MIN/1.73 code = 51636) CALC BUN/CREAT (test code = 16 RATIO [...] code = 2219) 29 U/L COMPREHENSIVE METABOLIC [id number] 00:00:00 Test Item Value Reference Range Interpretation Comments GLUCOSE (test code = 2217) 109 MG/DL BUN (test code = 2208) 11 MG/DL CREATININE (test code = 2214) 0.68 MG/DL eGFR AMER. (test code 116 ML/MIN/1.73 = 31467) eGFR NON- AMER. (test 100 ML/MIN/1.73 code = 25447) CALC BUN/CREAT (test code = 16 RATIO [...] (test code = 2219) 29 U/L LIPID [id number] 00:00:00 Test Item Value Reference Range Interpretation Comments CHOLESTEROL (test code = 2210) 112 MG/DL TRIGLYCERIDES (test code = 2232) 140 MG/DL HDL CHOLESTEROL (test code = 2220) 34 MG/DL CALC LDL CHOL (test code = 223) 56 MG/DL RISK RATIO LDL/HDL (test code = 1.65 RATIO 8) VITAMIN D, 25 [id number] 00:00:00 Test Item Value Reference Range Interpretation Comments VITAMIN D, 25 OH (test code = 4958) 20 NG/ML VITAMIN D, 25 [id number] 00:00:00 Test Item Value Reference Range Interpretation Comments VITAMIN D, 25 OH (test code = 4958) 20 NG/ML COMPREHENSIVE METABOLIC [id number] 00:00:00 Test Item Value Reference Range Interpretation Comments GLUCOSE (test code = 7) 109 MG/DL BUN (test code = 8) 11 MG/DL CREATININE (test code = 2214) 0.68 MG/DL eGFR AMER. (test code 116 ML/MIN/1.73 = 21648) eGFR NON- AMER. (test 100 ML/MIN/1.73 code = 11537) CALC BUN/CREAT (test code = 16 RATIO [...] ALT (test code = 2219) 29 U/L [id number] 00:00:00 Test Item Value Reference Range Interpretation Comments LITHIUM (test code = 2038) 0.38 MEQ/L [id number] 00:00:00 Test Item Value Reference Range Interpretation Comments LITHIUM (test code = 2038) 0.38 MEQ/L [id number] 00:00:00 Test Item Value Reference Range Interpretation Comments LITHIUM (test code = 2038) 0.38 MEQ/L THYROID II PROFILE (T3U, T4, T7, TSH)2020-10-05 00:00:00 Test Item Value Reference Range Interpretation Comments T-UPTAKE (test code = 2816) 30.2 % THYROX. BIND. CAPAC. (test code 1.1 = 53714) T4 (THYROXINE) (test code = 4.4 UG/DL 2819) CORRECTED T4 (FTI) (test code = 4.0 UG/DL 2820) TSH, THIRD GENERATION (test code 4.570 UIU/ML = 2821) THYROID II PROFILE (T3U, T4, T7, TSH)2020-10-05 00:00:00 Test Item Value Reference Range Interpretation Comments T-UPTAKE (test code = 2816) 30.2 % THYROX. BIND. CAPAC. (test code 1.1 = 76206) T4 (THYROXINE) (test code = 4.4 UG/DL 2819) CORRECTED T4 (FTI) (test code = 4.0 UG/DL 2820) TSH, THIRD GENERATION (test code 4.570 UIU/ML = 2821) VITAMIN D, 25 [id number] 00:00:00 Test Item Value Reference Range Interpretation Comments VITAMIN D, 25 OH (test code = 4958) 20 NG/ML [id number] 00:00:00 Test Item Value Reference Range Interpretation Comments LITHIUM (test code = 2038) 0.38 MEQ/L [id number] 00:00:00 Test Item Value Reference Range Interpretation Comments LITHIUM (test code = 2038) 0.38 MEQ/L THYROID II PROFILE (T3U, T4, T7, TSH)2020-10-05 00:00:00 Test Item Value Reference Range Interpretation Comments T-UPTAKE (test code = 2817) 30.2 % THYROX. BIND. CAPAC. (test code 1.1 = 50633) T4 (THYROXINE) (test code = 4.4 UG/DL 2819) CORRECTED T4 (FTI) (test code = 4.0 UG/DL 2820) TSH, THIRD GENERATION (test code 4.570 UIU/ML = 2821) CBC W/AUTO [id number] 00:00:00 Test Item Value Reference Range Interpretation [...] NUCLEATED RBCS (test code = 0.00 K/UL 87931) CBC W/AUTO [id number] 00:00:00 Test Item Value Reference Range Interpretation [...] NUCLEATED RBCS (test code = 0.00 K/UL 34305) CBC W/AUTO [id number] 00:00:00 Test Item Value Reference Range Interpretation [...] NUCLEATED RBCS (test code = 0.00 K/UL 17467) LIPID [id number] 00:00:00 Test Item Value Reference Range Interpretation Comments CHOLESTEROL (test code = 2210) 112 MG/DL TRIGLYCERIDES (test code = 2232) 140 MG/DL HDL CHOLESTEROL (test code = 2220) 34 MG/DL CALC LDL CHOL (test code = 2237) 56 MG/DL RISK RATIO LDL/HDL (test code = 1.65 RATIO 2238) LIPID [id number] 00:00:00 Test Item Value Reference Range Interpretation Comments CHOLESTEROL (test code = 2210) 112 MG/DL TRIGLYCERIDES (test code = 2232) 140 MG/DL HDL CHOLESTEROL (test code = 2220) 34 MG/DL CALC LDL CHOL (test code = 2237) 56 MG/DL RISK RATIO LDL/HDL (test code = 1.65 RATIO 2238) COMPREHENSIVE METABOLIC [id number] 00:00:00 Test Item Value Reference Range Interpretation Comments GLUCOSE (test code = 2217) 109 MG/DL BUN (test code = 2208) 11 MG/DL CREATININE (test code = 2214) 0.68 MG/DL eGFR AMER. (test code 116 ML/MIN/1.73 = 30710) eGFR NON- AMER. (test 100 ML/MIN/1.73 code = 33227) CALC BUN/CREAT (test code = 16 RATIO [...] code = 2219) 29 U/L COMPREHENSIVE METABOLIC [id number] 00:00:00 Test Item Value Reference Range Interpretation Comments GLUCOSE (test code = 2217) 109 MG/DL BUN (test code = 2208) 11 MG/DL CREATININE (test code = 2214) 0.68 MG/DL eGFR AMER. (test code 116 ML/MIN/1.73 = 25679) eGFR NON- AMER. (test 100 ML/MIN/1.73 code = 19416) CALC BUN/CREAT (test code = 16 RATIO [...] = 2219) 29 U/L VITAMIN D, 25 [id number] 00:00:00 Test Item Value Reference Range Interpretation Comments VITAMIN D, 25 OH (test code = 4958) 20 NG/ML VITAMIN D, 25 [id number] 00:00:00 Test Item Value Reference Range Interpretation Comments VITAMIN D, 25 OH (test code = 4958) 20 NG/ML [id number] 00:00:00 Test Item Value Reference Range Interpretation Comments LITHIUM (test code = 2038) 0.38 MEQ/L [id number] 00:00:00 Test Item Value Reference Range Interpretation Comments LITHIUM (test code = 2038) 0.38 MEQ/L [id number] 00:00:00 Test Item Value Reference Range Interpretation Comments LITHIUM (test code = 2038) 0.38 MEQ/L THYROID II PROFILE (T3U, T4, T7, TSH)2020-10-05 00:00:00 Test Item Value Reference Range Interpretation Comments T-UPTAKE (test code = 7) 30.2 % THYROX. BIND. CAPAC. (test code 1.1 = 47886) T4 (THYROXINE) (test code = 4.4 UG/DL 2819) CORRECTED T4 (FTI) (test code = 4.0 UG/DL 2820) TSH, THIRD GENERATION (test code 4.570 UIU/ML = 2821) THYROID II PROFILE (T3U, T4, T7, TSH)2020-10-05 00:00:00 Test Item Value Reference Range Interpretation Comments T-UPTAKE (test code = 7) 30.2 % THYROX. BIND. CAPAC. (test code 1.1 = 82391) T4 (THYROXINE) (test code = 4.4 UG/DL 2819) CORRECTED T4 (FTI) (test code = 4.0 UG/DL 2820) TSH, THIRD GENERATION (test code 4.570 UIU/ML = 2821) CBC W/AUTO [id number] 00:00:00 Test Item Value Reference Range Interpretation [...] NUCLEATED RBCS (test code = 0.00 K/UL 89273) CBC W/AUTO [id number] 00:00:00 Test Item Value Reference Range Interpretation [...] NUCLEATED RBCS (test code = 0.00 K/UL 95294) CBC W/AUTO [id number] 00:00:00 Test Item Value Reference Range Interpretation [...] NUCLEATED RBCS (test code = 0.00 K/UL 04201) LIPID [id number] 00:00:00 Test Item Value Reference Range Interpretation Comments CHOLESTEROL (test code = 2210) 112 MG/DL TRIGLYCERIDES (test code = 2232) 140 MG/DL HDL CHOLESTEROL (test code = 2220) 34 MG/DL CALC LDL CHOL (test code = 2237) 56 MG/DL RISK RATIO LDL/HDL (test code = 1.65 RATIO 2238) LIPID [id number] 00:00:00 Test Item Value Reference Range Interpretation Comments CHOLESTEROL (test code = 2210) 112 MG/DL TRIGLYCERIDES (test code = 2232) 140 MG/DL HDL CHOLESTEROL (test code = 2220) 34 MG/DL CALC LDL CHOL (test code = 2237) 56 MG/DL RISK RATIO LDL/HDL (test code = 1.65 RATIO 2238) COMPREHENSIVE METABOLIC [id number] 00:00:00 Test Item Value Reference Range Interpretation Comments GLUCOSE (test code = 2217) 109 MG/DL BUN (test code = 2208) 11 MG/DL CREATININE (test code = 2214) 0.68 MG/DL eGFR AMER. (test code 116 ML/MIN/1.73 = 31607) eGFR NON- AMER. (test 100 ML/MIN/1.73 code = 36388) CALC BUN/CREAT (test code = 16 RATIO [...] code = 2219) 29 U/L COMPREHENSIVE METABOLIC [id number] 00:00:00 Test Item Value Reference Range Interpretation Comments GLUCOSE (test code = 2217) 109 MG/DL BUN (test code = 2208) 11 MG/DL CREATININE (test code = 2214) 0.68 MG/DL eGFR AMER. (test code 116 ML/MIN/1.73 = 57071) eGFR NON- AMER. (test 100 ML/MIN/1.73 code = 18110) CALC BUN/CREAT (test code = 16 RATIO [...] = 2219) 29 U/L VITAMIN D, 25 [id number] 00:00:00 Test Item Value Reference Range Interpretation Comments VITAMIN D, 25 OH (test code = 4958) 20 NG/ML VITAMIN D, 25 [id number] 00:00:00 Test Item Value Reference Range Interpretation Comments VITAMIN D, 25 OH (test code = 4958) 20 NG/ML [id number] 00:00:00 Test Item Value Reference Range Interpretation Comments LITHIUM (test code = 2038) 0.38 MEQ/L [id number] 00:00:00 Test Item Value Reference Range Interpretation Comments LITHIUM (test code = 2038) 0.38 MEQ/L [id number] 00:00:00 Test Item Value Reference Range Interpretation Comments LITHIUM (test code = 2038) 0.38 MEQ/L THYROID II PROFILE (T3U, T4, T7, TSH)2020-10-05 00:00:00 Test Item Value Reference Range Interpretation Comments T-UPTAKE (test code = 2816) 30.2 % THYROX. BIND. CAPAC. (test code 1.1 = 03411) T4 (THYROXINE) (test code = 4.4 UG/DL 2819) CORRECTED T4 (FTI) (test code = 4.0 UG/DL 2820) TSH, THIRD GENERATION (test code 4.570 UIU/ML = 2821) THYROID II PROFILE (T3U, T4, T7, TSH)2020-10-05 00:00:00 Test Item Value Reference Range Interpretation Comments T-UPTAKE (test code = 7) 30.2 % THYROX. BIND. CAPAC. (test code 1.1 = 92724) T4 (THYROXINE) (test code = 4.4 UG/DL 2819) CORRECTED T4 (FTI) (test code = 4.0 UG/DL 2820) TSH, THIRD GENERATION (test code 4.570 UIU/ML = 2821) CBC W/AUTO [id number] 00:00:00 Test Item Value Reference Range Interpretation [...] NUCLEATED RBCS (test code = 0.00 K/UL 52633) CBC W/AUTO [id number] 00:00:00 Test Item Value Reference Range Interpretation [...] NUCLEATED RBCS (test code = 0.00 K/UL 17082) CBC W/AUTO [id number] 00:00:00 Test Item Value Reference Range Interpretation [...] NUCLEATED RBCS (test code = 0.00 K/UL 03671) LIPID [id number] 00:00:00 Test Item Value Reference Range Interpretation Comments CHOLESTEROL (test code = 2210) 112 MG/DL TRIGLYCERIDES (test code = 2232) 140 MG/DL HDL CHOLESTEROL (test code = 2220) 34 MG/DL CALC LDL CHOL (test code = 2237) 56 MG/DL RISK RATIO LDL/HDL (test code = 1.65 RATIO 2238) LIPID [id number] 00:00:00 Test Item Value Reference Range Interpretation Comments CHOLESTEROL (test code = 2210) 112 MG/DL TRIGLYCERIDES (test code = 2232) 140 MG/DL HDL CHOLESTEROL (test code = 2220) 34 MG/DL CALC LDL CHOL (test code = 2237) 56 MG/DL RISK RATIO LDL/HDL (test code = 1.65 RATIO 2238) COMPREHENSIVE METABOLIC [id number] 00:00:00 Test Item Value Reference Range Interpretation Comments GLUCOSE (test code = 2217) 109 MG/DL BUN (test code = 2208) 11 MG/DL CREATININE (test code = 2214) 0.68 MG/DL eGFR AMER. (test code 116 ML/MIN/1.73 = 27184) eGFR NON- AMER. (test 100 ML/MIN/1.73 code = 11187) CALC BUN/CREAT (test code = 16 RATIO [...] code = 2219) 29 U/L COMPREHENSIVE METABOLIC [id number] 00:00:00 Test Item Value Reference Range Interpretation Comments GLUCOSE (test code = 2217) 109 MG/DL BUN (test code = 2208) 11 MG/DL CREATININE (test code = 2214) 0.68 MG/DL eGFR AMER. (test code 116 ML/MIN/1.73 = 05519) eGFR NON- AMER. (test 100 ML/MIN/1.73 code = 93688) CALC BUN/CREAT (test code = 16 RATIO [...] = 2219) 29 U/L VITAMIN D, 25 [id number] 00:00:00 Test Item Value Reference Range Interpretation Comments VITAMIN D, 25 OH (test code = 4958) 20 NG/ML VITAMIN D, 25 [id number] 00:00:00 Test Item Value Reference Range Interpretation Comments VITAMIN D, 25 OH (test code = 4958) 20 NG/ML [id number] 00:00:00 Test Item Value Reference Range Interpretation Comments LITHIUM (test code = 2038) 0.38 MEQ/L [id number] 00:00:00 Test Item Value Reference Range Interpretation Comments LITHIUM (test code = 203) 0.38 MEQ/L [id number] 00:00:00 Test Item Value Reference Range Interpretation Comments LITHIUM (test code = 2039) 0.38 MEQ/L THYROID II PROFILE (T3U, T4, T7, TSH)2020-10-05 00:00:00 Test Item Value Reference Range Interpretation Comments T-UPTAKE (test code = 2817) 30.2 % THYROX. BIND. CAPAC. (test code 1.1 = 94436) T4 (THYROXINE) (test code = 4.4 UG/DL 2818) CORRECTED T4 (FTI) (test code = 4.0 UG/DL 2820) TSH, THIRD GENERATION (test code 4.570 UIU/ML = 2821) THYROID II PROFILE (T3U, T4, T7, TSH)2020-10-05 00:00:00 Test Item Value Reference Range Interpretation Comments T-UPTAKE (test code = 2817) 30.2 % THYROX. BIND. CAPAC. (test code 1.1 = 59144) T4 (THYROXINE) (test code = 4.4 UG/DL 2819) CORRECTED T4 (FTI) (test code = 4.0 UG/DL 2820) TSH, THIRD GENERATION (test code 4.570 UIU/ML = 2821) CBC W/AUTO [id number] 00:00:00 Test Item Value Reference Range Interpretation [...] NUCLEATED RBCS (test code = 0.00 K/UL 73058) CBC W/AUTO [id number] 00:00:00 Test Item Value Reference Range Interpretation [...] NUCLEATED RBCS (test code = 0.00 K/UL 50934) CBC W/AUTO [id number] 00:00:00 Test Item Value Reference Range Interpretation [...] NUCLEATED RBCS (test code = 0.00 K/UL 20465) LIPID [id number] 00:00:00 Test Item Value Reference Range Interpretation Comments CHOLESTEROL (test code = 2210) 112 MG/DL TRIGLYCERIDES (test code = 2232) 140 MG/DL HDL CHOLESTEROL (test code = 2220) 34 MG/DL CALC LDL CHOL (test code = 2237) 56 MG/DL RISK RATIO LDL/HDL (test code = 1.65 RATIO 2238) LIPID [id number] 00:00:00 Test Item Value Reference Range Interpretation Comments CHOLESTEROL (test code = 2210) 112 MG/DL TRIGLYCERIDES (test code = 2232) 140 MG/DL HDL CHOLESTEROL (test code = 2220) 34 MG/DL CALC LDL CHOL (test code = 2237) 56 MG/DL RISK RATIO LDL/HDL (test code = 1.65 RATIO 2238) COMPREHENSIVE METABOLIC [id number] 00:00:00 Test Item Value Reference Range Interpretation Comments GLUCOSE (test code = 2217) 109 MG/DL BUN (test code = 2208) 11 MG/DL CREATININE (test code = 2214) 0.68 MG/DL eGFR AMER. (test code 116 ML/MIN/1.73 = 14073) eGFR NON- AMER. (test 100 ML/MIN/1.73 code = 42318) CALC BUN/CREAT (test code = 16 RATIO [...] code = 2219) 29 U/L COMPREHENSIVE METABOLIC [id number] 00:00:00 Test Item Value Reference Range Interpretation Comments GLUCOSE (test code = 2217) 109 MG/DL BUN (test code = 2208) 11 MG/DL CREATININE (test code = 2214) 0.68 MG/DL eGFR AMER. (test code 116 ML/MIN/1.73 = 14661) eGFR NON- AMER. (test 100 ML/MIN/1.73 code = 48526) CALC BUN/CREAT (test code = 16 RATIO [...] = 2219) 29 U/L VITAMIN D, 25 [id number] 00:00:00 Test Item Value Reference Range Interpretation Comments VITAMIN D, 25 OH (test code = 4958) 20 NG/ML VITAMIN D, 25 [id number] 00:00:00 Test Item Value Reference Range Interpretation Comments VITAMIN D, 25 OH (test code = 4958) 20 NG/ML [id number] 00:00:00 Test Item Value Reference Range Interpretation Comments LITHIUM (test code = 2039) 0.38 MEQ/L [id number] 00:00:00 Test Item Value Reference Range Interpretation Comments LITHIUM (test code = 2038) 0.38 MEQ/L [id number] 00:00:00 Test Item Value Reference Range Interpretation Comments LITHIUM (test code = 2038) 0.38 MEQ/L THYROID II PROFILE (T3U, T4, T7, TSH)2020-10-05 00:00:00 Test Item Value Reference Range Interpretation Comments T-UPTAKE (test code = 2816) 30.2 % THYROX. BIND. CAPAC. (test code 1.1 = 20834) T4 (THYROXINE) (test code = 4.4 UG/DL 2819) CORRECTED T4 (FTI) (test code = 4.0 UG/DL 2820) TSH, THIRD GENERATION (test code 4.570 UIU/ML = 2821) THYROID II PROFILE (T3U, T4, T7, TSH)2020-10-05 00:00:00 Test Item Value Reference Range Interpretation Comments T-UPTAKE (test code = 2816) 30.2 % THYROX. BIND. CAPAC. (test code 1.1 = 83910) T4 (THYROXINE) (test code = 4.4 UG/DL 2819) CORRECTED T4 (FTI) (test code = 4.0 UG/DL 2820) TSH, THIRD GENERATION (test code 4.570 UIU/ML = 2821) CBC W/AUTO [id number] 00:00:00 Test Item Value Reference Range Interpretation [...] NUCLEATED RBCS (test code = 0.00 K/UL 87107) CBC W/AUTO [id number] 00:00:00 Test Item Value Reference Range Interpretation [...] NUCLEATED RBCS (test code = 0.00 K/UL 10844) CBC W/AUTO [id number] 00:00:00 Test Item Value Reference Range Interpretation [...] NUCLEATED RBCS (test code = 0.00 K/UL 19230) LIPID [id number] 00:00:00 Test Item Value Reference Range Interpretation Comments CHOLESTEROL (test code = 2210) 112 MG/DL TRIGLYCERIDES (test code = 2232) 140 MG/DL HDL CHOLESTEROL (test code = 2220) 34 MG/DL CALC LDL CHOL (test code = 2237) 56 MG/DL RISK RATIO LDL/HDL (test code = 1.65 RATIO 2238) LIPID [id number] 00:00:00 Test Item Value Reference Range Interpretation Comments CHOLESTEROL (test code = 2210) 112 MG/DL TRIGLYCERIDES (test code = 2232) 140 MG/DL HDL CHOLESTEROL (test code = 2220) 34 MG/DL CALC LDL CHOL (test code = 2237) 56 MG/DL RISK RATIO LDL/HDL (test code = 1.65 RATIO 2238) COMPREHENSIVE METABOLIC [id number] 00:00:00 Test Item Value Reference Range Interpretation Comments GLUCOSE (test code = 2217) 109 MG/DL BUN (test code = 2208) 11 MG/DL CREATININE (test code = 2214) 0.68 MG/DL eGFR AMER. (test code 116 ML/MIN/1.73 = 30002) eGFR NON- AMER. (test 100 ML/MIN/1.73 code = 10985) CALC BUN/CREAT (test code = 16 RATIO [...] code = 2219) 29 U/L COMPREHENSIVE METABOLIC [id number] 00:00:00 Test Item Value Reference Range Interpretation Comments GLUCOSE (test code = 2217) 109 MG/DL BUN (test code = 2208) 11 MG/DL CREATININE (test code = 2214) 0.68 MG/DL eGFR AMER. (test code 116 ML/MIN/1.73 = 53795) eGFR NON- AMER. (test 100 ML/MIN/1.73 code = 00069) CALC BUN/CREAT (test code = 16 RATIO [...] = 2219) 29 U/L VITAMIN D, 25 [id number] 00:00:00 Test Item Value Reference Range Interpretation Comments VITAMIN D, 25 OH (test code = 4958) 20 NG/ML VITAMIN D, 25 [id number] 00:00:00 Test Item Value Reference Range Interpretation Comments VITAMIN D, 25 OH (test code = 4958) 20 NG/ML [id number] 00:00:00 Test Item Value Reference Range Interpretation Comments LITHIUM (test code = 2038) 0.38 MEQ/L [id number] 00:00:00 Test Item Value Reference Range Interpretation Comments LITHIUM (test code = 2038) 0.38 MEQ/L [id number] 00:00:00 Test Item Value Reference Range Interpretation Comments LITHIUM (test code = 9) 0.38 MEQ/L THYROID II PROFILE (T3U, T4, T7, TSH)2020-10-05 00:00:00 Test Item Value Reference Range Interpretation Comments T-UPTAKE (test code = 281) 30.2 % THYROX. BIND. CAPAC. (test code 1.1 = 84687) T4 (THYROXINE) (test code = 4.4 UG/DL 281) CORRECTED T4 (FTI) (test code = 4.0 UG/DL 2820) TSH, THIRD GENERATION (test code 4.570 UIU/ML = 2821) THYROID II PROFILE (T3U, T4, T7, TSH)2020-10-05 00:00:00 Test Item Value Reference Range Interpretation Comments T-UPTAKE (test code = 281) 30.2 % THYROX. BIND. CAPAC. (test code 1.1 = 07056) T4 (THYROXINE) (test code = 4.4 UG/DL 2819) CORRECTED T4 (FTI) (test code = 4.0 UG/DL 2820) TSH, THIRD GENERATION (test code 4.570 UIU/ML = 2821) CBC W/AUTO [id number] 00:00:00 Test Item Value Reference Range Interpretation [...] NUCLEATED RBCS (test code = 0.00 K/UL 64887) CBC W/AUTO [id number] 00:00:00 Test Item Value Reference Range Interpretation [...] NUCLEATED RBCS (test code = 0.00 K/UL 38366) CBC W/AUTO [id number] 00:00:00 Test Item Value Reference Range Interpretation [...] NUCLEATED RBCS (test code = 0.00 K/UL 27284) LIPID [id number] 00:00:00 Test Item Value Reference Range Interpretation Comments CHOLESTEROL (test code = 2210) 112 MG/DL TRIGLYCERIDES (test code = 2232) 140 MG/DL HDL CHOLESTEROL (test code = 2220) 34 MG/DL CALC LDL CHOL (test code = 2237) 56 MG/DL RISK RATIO LDL/HDL (test code = 1.65 RATIO 2238) LIPID [id number] 00:00:00 Test Item Value Reference Range Interpretation Comments CHOLESTEROL (test code = 2210) 112 MG/DL TRIGLYCERIDES (test code = 2232) 140 MG/DL HDL CHOLESTEROL (test code = 2220) 34 MG/DL CALC LDL CHOL (test code = 2237) 56 MG/DL RISK RATIO LDL/HDL (test code = 1.65 RATIO 2238) COMPREHENSIVE METABOLIC [id number] 00:00:00 Test Item Value Reference Range Interpretation Comments GLUCOSE (test code = 2217) 109 MG/DL BUN (test code = 2208) 11 MG/DL CREATININE (test code = 2214) 0.68 MG/DL eGFR AMER. (test code 116 ML/MIN/1.73 = 21474) eGFR NON- AMER. (test 100 ML/MIN/1.73 code = 92840) CALC BUN/CREAT (test code = 16 RATIO [...] code = 2219) 29 U/L COMPREHENSIVE METABOLIC [id number] 00:00:00 Test Item Value Reference Range Interpretation Comments GLUCOSE (test code = 2217) 109 MG/DL BUN (test code = 2208) 11 MG/DL CREATININE (test code = 2214) 0.68 MG/DL eGFR AMER. (test code 116 ML/MIN/1.73 = 55617) eGFR NON- AMER. (test 100 ML/MIN/1.73 code = 77992) CALC BUN/CREAT (test code = 16 RATIO [...] = 2219) 29 U/L VITAMIN D, 25 [id number] 00:00:00 Test Item Value Reference Range Interpretation Comments VITAMIN D, 25 OH (test code = 4958) 20 NG/ML VITAMIN D, 25 [id number] 00:00:00 Test Item Value Reference Range Interpretation Comments VITAMIN D, 25 OH (test code = 4958) 20 NG/ML [id number] 00:00:00 Test Item Value Reference Range Interpretation Comments LITHIUM (test code = 2038) 0.38 MEQ/L [id number] 00:00:00 Test Item Value Reference Range Interpretation Comments LITHIUM (test code = 2038) 0.38 MEQ/L [id number] 00:00:00 Test Item Value Reference Range Interpretation Comments LITHIUM (test code = 2038) 0.38 MEQ/L THYROID II PROFILE (T3U, T4, T7, TSH)2020-10-05 00:00:00 Test Item Value Reference Range Interpretation Comments T-UPTAKE (test code = 2817) 30.2 % THYROX. BIND. CAPAC. (test code 1.1 = 96918) T4 (THYROXINE) (test code = 4.4 UG/DL 2819) CORRECTED T4 (FTI) (test code = 4.0 UG/DL 2820) TSH, THIRD GENERATION (test code 4.570 UIU/ML = 2821) THYROID II PROFILE (T3U, T4, T7, TSH)2020-10-05 00:00:00 Test Item Value Reference Range Interpretation Comments T-UPTAKE (test code = 2817) 30.2 % THYROX. BIND. CAPAC. (test code 1.1 = 94879) T4 (THYROXINE) (test code = 4.4 UG/DL 2819) CORRECTED T4 (FTI) (test code = 4.0 UG/DL 2820) TSH, THIRD GENERATION (test code 4.570 UIU/ML = 2821) CBC W/AUTO [id number] 00:00:00 Test Item Value Reference Range Interpretation [...] NUCLEATED RBCS (test code = 0.00 K/UL 58271) CBC W/AUTO [id number] 00:00:00 Test Item Value Reference Range Interpretation [...] NUCLEATED RBCS (test code = 0.00 K/UL 40557) CBC W/AUTO [id number] 00:00:00 Test Item Value Reference Range Interpretation [...] NUCLEATED RBCS (test code = 0.00 K/UL 52489) LIPID [id number] 00:00:00 Test Item Value Reference Range Interpretation Comments CHOLESTEROL (test code = 2210) 112 MG/DL TRIGLYCERIDES (test code = 2232) 140 MG/DL HDL CHOLESTEROL (test code = 2220) 34 MG/DL CALC LDL CHOL (test code = 2237) 56 MG/DL RISK RATIO LDL/HDL (test code = 1.65 RATIO 2238) LIPID [id number] 00:00:00 Test Item Value Reference Range Interpretation Comments CHOLESTEROL (test code = 2210) 112 MG/DL TRIGLYCERIDES (test code = 2232) 140 MG/DL HDL CHOLESTEROL (test code = 2220) 34 MG/DL CALC LDL CHOL (test code = 2237) 56 MG/DL RISK RATIO LDL/HDL (test code = 1.65 RATIO 2238) COMPREHENSIVE METABOLIC [id number] 00:00:00 Test Item Value Reference Range Interpretation Comments GLUCOSE (test code = 2217) 109 MG/DL BUN (test code = 2208) 11 MG/DL CREATININE (test code = 2214) 0.68 MG/DL eGFR AMER. (test code 116 ML/MIN/1.73 = 16622) eGFR NON- AMER. (test 100 ML/MIN/1.73 code = 90119) CALC BUN/CREAT (test code = 16 RATIO [...] code = 2219) 29 U/L COMPREHENSIVE METABOLIC [id number] 00:00:00 Test Item Value Reference Range Interpretation Comments GLUCOSE (test code = 2217) 109 MG/DL BUN (test code = 2208) 11 MG/DL CREATININE (test code = 2214) 0.68 MG/DL eGFR AMER. (test code 116 ML/MIN/1.73 = 09733) eGFR NON- AMER. (test 100 ML/MIN/1.73 code = 33839) CALC BUN/CREAT (test code = 16 RATIO [...] = 2219) 29 U/L VITAMIN D, 25 [id number] 00:00:00 Test Item Value Reference Range Interpretation Comments VITAMIN D, 25 OH (test code = 4958) 20 NG/ML VITAMIN D, 25 [id number] 00:00:00 Test Item Value Reference Range Interpretation Comments VITAMIN D, 25 OH (test code = 4958) 20 NG/ML [id number] 00:00:00 Test Item Value Reference Range Interpretation Comments LITHIUM (test code = 2038) 0.38 MEQ/L [id number] 00:00:00 Test Item Value Reference Range Interpretation Comments LITHIUM (test code = 2038) 0.38 MEQ/L [id number] 00:00:00 Test Item Value Reference Range Interpretation Comments LITHIUM (test code = 2038) 0.38 MEQ/L THYROID II PROFILE (T3U, T4, T7, TSH)2020-10-05 00:00:00 Test Item Value Reference Range Interpretation Comments T-UPTAKE (test code = 2816) 30.2 % THYROX. BIND. CAPAC. (test code 1.1 = 32018) T4 (THYROXINE) (test code = 4.4 UG/DL 281) CORRECTED T4 (FTI) (test code = 4.0 UG/DL 2820) TSH, THIRD GENERATION (test code 4.570 UIU/ML = 2821) THYROID II PROFILE (T3U, T4, T7, TSH)2020-10-05 00:00:00 Test Item Value Reference Range Interpretation Comments T-UPTAKE (test code = 2816) 30.2 % THYROX. BIND. CAPAC. (test code 1.1 = 28390) T4 (THYROXINE) (test code = 4.4 UG/DL 2819) CORRECTED T4 (FTI) (test code = 4.0 UG/DL 2820) TSH, THIRD GENERATION (test code 4.570 UIU/ML = 2821) CBC W/AUTO [id number] 00:00:00 Test Item Value Reference Range Interpretation [...] NUCLEATED RBCS (test code = 0.00 K/UL 01496) CBC W/AUTO [id number] 00:00:00 Test Item Value Reference Range Interpretation [...] NUCLEATED RBCS (test code = 0.00 K/UL 55491) CBC W/AUTO [id number] 00:00:00 Test Item Value Reference Range Interpretation [...] NUCLEATED RBCS (test code = 0.00 K/UL 86726) LIPID [id number] 00:00:00 Test Item Value Reference Range Interpretation Comments CHOLESTEROL (test code = 2210) 112 MG/DL TRIGLYCERIDES (test code = 2232) 140 MG/DL HDL CHOLESTEROL (test code = 2220) 34 MG/DL CALC LDL CHOL (test code = 2237) 56 MG/DL RISK RATIO LDL/HDL (test code = 1.65 RATIO 2238) LIPID [id number] 00:00:00 Test Item Value Reference Range Interpretation Comments CHOLESTEROL (test code = 2210) 112 MG/DL TRIGLYCERIDES (test code = 2232) 140 MG/DL HDL CHOLESTEROL (test code = 2220) 34 MG/DL CALC LDL CHOL (test code = 2237) 56 MG/DL RISK RATIO LDL/HDL (test code = 1.65 RATIO 2238) COMPREHENSIVE METABOLIC [id number] 00:00:00 Test Item Value Reference Range Interpretation Comments GLUCOSE (test code = 2217) 109 MG/DL BUN (test code = 2208) 11 MG/DL CREATININE (test code = 2214) 0.68 MG/DL eGFR AMER. (test code 116 ML/MIN/1.73 = 04915) eGFR NON- AMER. (test 100 ML/MIN/1.73 code = 21816) CALC BUN/CREAT (test code = 16 RATIO [...] code = 2219) 29 U/L COMPREHENSIVE METABOLIC [id number] 00:00:00 Test Item Value Reference Range Interpretation Comments GLUCOSE (test code = 2217) 109 MG/DL BUN (test code = 2208) 11 MG/DL CREATININE (test code = 2214) 0.68 MG/DL eGFR AMER. (test code 116 ML/MIN/1.73 = 47482) eGFR NON- AMER. (test 100 ML/MIN/1.73 code = 31314) CALC BUN/CREAT (test code = 16 RATIO 2235) SODIUM (test code = 2231) 140 MEQ/L POTASSIUM (test code = 2228) 4.6 MEQ/L CHLORIDE (test code = 2215) 108 MEQ/L CARBON DIOXIDE (test code = 22 MEQ/L 2206) CALCIUM (test code = 2208) 10.7 MG/DL [...] = 2219) 29 U/L VITAMIN D, 25 [id number] 00:00:00 Test Item Value Reference Range Interpretation Comments VITAMIN D, 25 OH (test code = 4958) 20 NG/ML VITAMIN D, 25 [id number] 00:00:00 Test Item Value Reference Range Interpretation Comments VITAMIN D, 25 OH (test code = 4958) 20 NG/ML [id number] 00:00:00 Test Item Value Reference Range Interpretation Comments LITHIUM (test code = 2038) 0.38 MEQ/L [id number] 00:00:00 Test Item Value Reference Range Interpretation Comments LITHIUM (test code = 2038) 0.38 MEQ/L [id number] 00:00:00 Test Item Value Reference Range Interpretation Comments LITHIUM (test code = 2038) 0.38 MEQ/L THYROID II PROFILE (T3U, T4, T7, TSH)2020-10-05 00:00:00 Test Item Value Reference Range Interpretation Comments T-UPTAKE (test code = 2816) 30.2 % THYROX. BIND. CAPAC. (test code 1.1 = 24566) T4 (THYROXINE) (test code = 4.4 UG/DL 2818) CORRECTED T4 (FTI) (test code = 4.0 UG/DL 2820) TSH, THIRD GENERATION (test code 4.570 UIU/ML = 2821) THYROID II PROFILE (T3U, T4, T7, TSH)2020-10-05 00:00:00 Test Item Value Reference Range Interpretation Comments T-UPTAKE (test code = 2816) 30.2 % THYROX. BIND. CAPAC. (test code 1.1 = 41435) T4 (THYROXINE) (test code = 4.4 UG/DL 2819) CORRECTED T4 (FTI) (test code = 4.0 UG/DL 2820) TSH, THIRD GENERATION (test code 4.570 UIU/ML = 2821) CBC W/AUTO [id number] 00:00:00 Test Item Value Reference Range Interpretation [...] NUCLEATED RBCS (test code = 0.00 K/UL 75374) CBC W/AUTO [id number] 00:00:00 Test Item Value Reference Range Interpretation [...] NUCLEATED RBCS (test code = 0.00 K/UL 85657) CBC W/AUTO [id number] 00:00:00 Test Item Value Reference Range Interpretation [...] NUCLEATED RBCS (test code = 0.00 K/UL 04092) LIPID [id number] 00:00:00 Test Item Value Reference Range Interpretation Comments CHOLESTEROL (test code = 2210) 112 MG/DL TRIGLYCERIDES (test code = 2232) 140 MG/DL HDL CHOLESTEROL (test code = 2220) 34 MG/DL CALC LDL CHOL (test code = 2237) 56 MG/DL RISK RATIO LDL/HDL (test code = 1.65 RATIO 2238) LIPID [id number] 00:00:00 Test Item Value Reference Range Interpretation Comments CHOLESTEROL (test code = 2210) 112 MG/DL TRIGLYCERIDES (test code = 2232) 140 MG/DL HDL CHOLESTEROL (test code = 2220) 34 MG/DL CALC LDL CHOL (test code = 2237) 56 MG/DL RISK RATIO LDL/HDL (test code = 1.65 RATIO 2238) COMPREHENSIVE METABOLIC [id number] 00:00:00 Test Item Value Reference Range Interpretation Comments GLUCOSE (test code = 2217) 109 MG/DL BUN (test code = 2208) 11 MG/DL CREATININE (test code = 2214) 0.68 MG/DL eGFR AMER. (test code 116 ML/MIN/1.73 = 90412) eGFR NON- AMER. (test 100 ML/MIN/1.73 code = 95162) CALC BUN/CREAT (test code = 16 RATIO [...] code = 2219) 29 U/L COMPREHENSIVE METABOLIC [id number] 00:00:00 Test Item Value Reference Range Interpretation Comments GLUCOSE (test code = 2217) 109 MG/DL BUN (test code = 2208) 11 MG/DL CREATININE (test code = 2214) 0.68 MG/DL eGFR AMER. (test code 116 ML/MIN/1.73 = 18947) eGFR NON- AMER. (test 100 ML/MIN/1.73 code = 79453) CALC BUN/CREAT (test code = 16 RATIO [...] = 2219) 29 U/L VITAMIN D, 25 [id number] 00:00:00 Test Item Value Reference Range Interpretation Comments VITAMIN D, 25 OH (test code = 4958) 20 NG/ML VITAMIN D, 25 [id number] 00:00:00 Test Item Value Reference Range Interpretation Comments VITAMIN D, 25 OH (test code = 4958) 20 NG/ML [id number] 00:00:00 Test Item Value Reference Range Interpretation Comments LITHIUM (test code = 2038) 0.38 MEQ/L [id number] 00:00:00 Test Item Value Reference Range Interpretation Comments LITHIUM (test code = 2038) 0.38 MEQ/L [id number] 00:00:00 Test Item Value Reference Range Interpretation Comments LITHIUM (test code = 2038) 0.38 MEQ/L THYROID II PROFILE (T3U, T4, T7, TSH)2020-10-05 00:00:00 Test Item Value Reference Range Interpretation Comments T-UPTAKE (test code = 2817) 30.2 % THYROX. BIND. CAPAC. (test code 1.1 = 64558) T4 (THYROXINE) (test code = 4.4 UG/DL 2819) CORRECTED T4 (FTI) (test code = 4.0 UG/DL 2820) TSH, THIRD GENERATION (test code 4.570 UIU/ML = 2821) THYROID II PROFILE (T3U, T4, T7, TSH)2020-10-05 00:00:00 Test Item Value Reference Range Interpretation Comments T-UPTAKE (test code = 2817) 30.2 % THYROX. BIND. CAPAC. (test code 1.1 = 91537) T4 (THYROXINE) (test code = 4.4 UG/DL 2819) CORRECTED T4 (FTI) (test code = 4.0 UG/DL 2820) TSH, THIRD GENERATION (test code 4.570 UIU/ML = 2821) CBC W/AUTO [id number] 00:00:00 Test Item Value Reference Range Interpretation [...] NUCLEATED RBCS (test code = 0.00 K/UL 55228) CBC W/AUTO [id number] 00:00:00 Test Item Value Reference Range Interpretation [...] NUCLEATED RBCS (test code = 0.00 K/UL 83304) CBC W/AUTO [id number] 00:00:00 Test Item Value Reference Range Interpretation [...] NUCLEATED RBCS (test code = 0.00 K/UL 20766) LIPID [id number] 00:00:00 Test Item Value Reference Range Interpretation Comments CHOLESTEROL (test code = 2210) 112 MG/DL TRIGLYCERIDES (test code = 2232) 140 MG/DL HDL CHOLESTEROL (test code = 2220) 34 MG/DL CALC LDL CHOL (test code = 2237) 56 MG/DL RISK RATIO LDL/HDL (test code = 1.65 RATIO 2238) LIPID [id number] 00:00:00 Test Item Value Reference Range Interpretation Comments CHOLESTEROL (test code = 2210) 112 MG/DL TRIGLYCERIDES (test code = 2232) 140 MG/DL HDL CHOLESTEROL (test code = 2220) 34 MG/DL CALC LDL CHOL (test code = 2237) 56 MG/DL RISK RATIO LDL/HDL (test code = 1.65 RATIO 2238) COMPREHENSIVE METABOLIC [id number] 00:00:00 Test Item Value Reference Range Interpretation Comments GLUCOSE (test code = 2217) 109 MG/DL BUN (test code = 2208) 11 MG/DL CREATININE (test code = 2214) 0.68 MG/DL eGFR AMER. (test code 116 ML/MIN/1.73 = 71868) eGFR NON- AMER. (test 100 ML/MIN/1.73 code = 83889) CALC BUN/CREAT (test code = 16 RATIO [...] code = 2219) 29 U/L COMPREHENSIVE METABOLIC [id number] 00:00:00 Test Item Value Reference Range Interpretation Comments GLUCOSE (test code = 2217) 109 MG/DL BUN (test code = 2208) 11 MG/DL CREATININE (test code = 2214) 0.68 MG/DL eGFR AMER. (test code 116 ML/MIN/1.73 = 39807) eGFR NON- AMER. (test 100 ML/MIN/1.73 code = 31397) CALC BUN/CREAT (test code = 16 RATIO [...] = 2219) 29 U/L VITAMIN D, 25 [id number] 00:00:00 Test Item Value Reference Range Interpretation Comments VITAMIN D, 25 OH (test code = 4958) 20 NG/ML VITAMIN D, 25 [id number] 00:00:00 Test Item Value Reference Range Interpretation Comments VITAMIN D, 25 OH (test code = 4958) 20 NG/ML [id number] 00:00:00 Test Item Value Reference Range Interpretation Comments LITHIUM (test code = 2038) 0.38 MEQ/L [id number] 00:00:00 Test Item Value Reference Range Interpretation Comments LITHIUM (test code = 2038) 0.38 MEQ/L [id number] 00:00:00 Test Item Value Reference Range Interpretation Comments LITHIUM (test code = 2038) 0.38 MEQ/L THYROID II PROFILE (T3U, T4, T7, TSH)2020-10-05 00:00:00 Test Item Value Reference Range Interpretation Comments T-UPTAKE (test code = 2816) 30.2 % THYROX. BIND. CAPAC. (test code 1.1 = 91070) T4 (THYROXINE) (test code = 4.4 UG/DL 2818) CORRECTED T4 (FTI) (test code = 4.0 UG/DL 2820) TSH, THIRD GENERATION (test code 4.570 UIU/ML = 2821) THYROID II PROFILE (T3U, T4, T7, TSH)2020-10-05 00:00:00 Test Item Value Reference Range Interpretation Comments T-UPTAKE (test code = 2816) 30.2 % THYROX. BIND. CAPAC. (test code 1.1 = 09898) T4 (THYROXINE) (test code = 4.4 UG/DL 2818) CORRECTED T4 (FTI) (test code = 4.0 UG/DL 2820) TSH, THIRD GENERATION (test code 4.570 UIU/ML = 2821) CBC W/AUTO [id number] 00:00:00 Test Item Value Reference Range Interpretation [...] NUCLEATED RBCS (test code = 0.00 K/UL 69337) CBC W/AUTO [id number] 00:00:00 Test Item Value Reference Range Interpretation [...] NUCLEATED RBCS (test code = 0.00 K/UL 98659) CBC W/AUTO [id number] 00:00:00 Test Item Value Reference Range Interpretation [...] NUCLEATED RBCS (test code = 0.00 K/UL 17062) LIPID [id number] 00:00:00 Test Item Value Reference Range Interpretation Comments CHOLESTEROL (test code = 2210) 112 MG/DL TRIGLYCERIDES (test code = 2232) 140 MG/DL HDL CHOLESTEROL (test code = 2220) 34 MG/DL CALC LDL CHOL (test code = 2237) 56 MG/DL RISK RATIO LDL/HDL (test code = 1.65 RATIO 2238) LIPID [id number] 00:00:00 Test Item Value Reference Range Interpretation Comments CHOLESTEROL (test code = 2210) 112 MG/DL TRIGLYCERIDES (test code = 2232) 140 MG/DL HDL CHOLESTEROL (test code = 2220) 34 MG/DL CALC LDL CHOL (test code = 2237) 56 MG/DL RISK RATIO LDL/HDL (test code = 1.65 RATIO 2238) COMPREHENSIVE METABOLIC [id number] 00:00:00 Test Item Value Reference Range Interpretation Comments GLUCOSE (test code = 2217) 109 MG/DL BUN (test code = 2208) 11 MG/DL CREATININE (test code = 2214) 0.68 MG/DL eGFR AMER. (test code 116 ML/MIN/1.73 = 41743) eGFR NON- AMER. (test 100 ML/MIN/1.73 code = 52206) CALC BUN/CREAT (test code = 16 RATIO [...] code = 2219) 29 U/L COMPREHENSIVE METABOLIC [id number] 00:00:00 Test Item Value Reference Range Interpretation Comments GLUCOSE (test code = 2217) 109 MG/DL BUN (test code = 2208) 11 MG/DL CREATININE (test code = 2214) 0.68 MG/DL eGFR AMER. (test code 116 ML/MIN/1.73 = 00490) eGFR NON- AMER. (test 100 ML/MIN/1.73 code = 15150) CALC BUN/CREAT (test code = 16 RATIO [...] 2218) 19 U/L ALT (test code = 221) 29 U/L VITAMIN D, 25 [id number] 00:00:00 Test Item Value Reference Range Interpretation Comments VITAMIN D, 25 OH (test code = 4958) 20 NG/ML VITAMIN D, 25 [id number] 00:00:00 Test Item Value Reference Range Interpretation Comments VITAMIN D, 25 OH (test code = 4958) 20 NG/ML [id number] 00:00:00 Test Item Value Reference Range Interpretation Comments LITHIUM (test code = 2038) 0.31 MEQ/L [id number] 00:00:00 Test Item Value Reference Range Interpretation Comments LITHIUM (test code = 2038) 0.31 MEQ/L VITAMIN D, 25 [id number] 00:00:00 Test Item Value Reference Range Interpretation Comments VITAMIN D, 25 OH (test code = 4958) 25 NG/ML VITAMIN D, 25 [id number] 00:00:00 Test Item Value Reference Range Interpretation Comments VITAMIN D, 25 OH (test code = 4958) 25 NG/ML [id number] 00:00:00 Test Item Value Reference Range Interpretation Comments LITHIUM (test code = 2038) 0.31 MEQ/L [id number] 00:00:00 Test Item Value Reference Range Interpretation Comments TSH, THIRD GENERATION (test code 2.180 UIU/ML = 2821) [id number] 00:00:00 Test Item Value Reference Range Interpretation Comments LITHIUM (test code = 2038) 0.31 MEQ/L VITAMIN D, 25 [id number] 00:00:00 Test Item Value Reference Range Interpretation Comments VITAMIN D, 25 OH (test code = 4958) 25 NG/ML [id number] 00:00:00 Test Item Value Reference Range Interpretation Comments LITHIUM (test code = 2038) 0.31 MEQ/L [id number] 00:00:00 Test Item Value Reference Range Interpretation Comments TSH, THIRD GENERATION (test code 2.180 UIU/ML = 2821) [id number] 00:00:00 Test Item Value Reference Range Interpretation Comments TSH, THIRD GENERATION (test code 2.180 UIU/ML = 2821) [id number] 00:00:00 Test Item Value Reference Range Interpretation Comments TSH, THIRD GENERATION (test code 2.180 UIU/ML = 2821) [id number] 00:00:00 Test Item Value Reference Range Interpretation Comments TSH, THIRD GENERATION (test code 2.180 UIU/ML = 2821) [id number] 00:00:00 Test Item Value Reference Range Interpretation Comments LITHIUM (test code = 2038) 0.31 MEQ/L VITAMIN D, 25 [id number] 00:00:00 Test Item Value Reference Range Interpretation Comments VITAMIN D, 25 OH (test code = 4958) 25 NG/ML VITAMIN D, 25 [id number] 00:00:00 Test Item Value Reference Range Interpretation Comments VITAMIN D, 25 OH (test code = 4958) 25 NG/ML [id number] 00:00:00 Test Item Value Reference Range Interpretation Comments LITHIUM (test code = 2038) 0.31 MEQ/L [id number] 00:00:00 Test Item Value Reference Range Interpretation Comments LITHIUM (test code = 203) 0.31 MEQ/L [id number] 00:00:00 Test Item Value Reference Range Interpretation Comments TSH, THIRD GENERATION (test code 2.180 UIU/ML = 2821) [id number] 00:00:00 Test Item Value Reference Range Interpretation Comments TSH, THIRD GENERATION (test code 2.180 UIU/ML = 2821) [id number] 00:00:00 Test Item Value Reference Range Interpretation Comments TSH, THIRD GENERATION (test code 2.180 UIU/ML = 2821) [id number] 00:00:00 Test Item Value Reference Range Interpretation Comments LITHIUM (test code = 2038) 0.31 MEQ/L VITAMIN D, 25 [id number] 00:00:00 Test Item Value Reference Range Interpretation Comments VITAMIN D, 25 OH (test code = 4958) 25 NG/ML VITAMIN D, 25 [id number] 00:00:00 Test Item Value Reference Range Interpretation Comments VITAMIN D, 25 OH (test code = 4958) 25 NG/ML [id number] 00:00:00 Test Item Value Reference Range Interpretation Comments LITHIUM (test code = 2038) 0.31 MEQ/L [id number] 00:00:00 Test Item Value Reference Range Interpretation Comments LITHIUM (test code = 2038) 0.31 MEQ/L [id number] 00:00:00 Test Item Value Reference Range Interpretation Comments TSH, THIRD GENERATION (test code 2.180 UIU/ML = 2821) [id number] 00:00:00 Test Item Value Reference Range Interpretation Comments TSH, THIRD GENERATION (test code 2.180 UIU/ML = 2821) [id number] 00:00:00 Test Item Value Reference Range Interpretation Comments TSH, THIRD GENERATION (test code 2.180 UIU/ML = 2821) [id number] 00:00:00 Test Item Value Reference Range Interpretation Comments LITHIUM (test code = 2038) 0.31 MEQ/L VITAMIN D, 25 [id number] 00:00:00 Test Item Value Reference Range Interpretation Comments VITAMIN D, 25 OH (test code = 4958) 25 NG/ML VITAMIN D, 25 [id number] 00:00:00 Test Item Value Reference Range Interpretation Comments VITAMIN D, 25 OH (test code = 4958) 25 NG/ML [id number] 00:00:00 Test Item Value Reference Range Interpretation Comments LITHIUM (test code = 2038) 0.31 MEQ/L [id number] 00:00:00 Test Item Value Reference Range Interpretation Comments LITHIUM (test code = 2038) 0.31 MEQ/L [id number] 00:00:00 Test Item Value Reference Range Interpretation Comments TSH, THIRD GENERATION (test code 2.180 UIU/ML = 2821) [id number] 00:00:00 Test Item Value Reference Range Interpretation Comments TSH, THIRD GENERATION (test code 2.180 UIU/ML = 2821) [id number] 00:00:00 Test Item Value Reference Range Interpretation Comments TSH, THIRD GENERATION (test code 2.180 UIU/ML = 2821) [id number] 00:00:00 Test Item Value Reference Range Interpretation Comments LITHIUM (test code = 203) 0.31 MEQ/L VITAMIN D, 25 [id number] 00:00:00 Test Item Value Reference Range Interpretation Comments VITAMIN D, 25 OH (test code = 4958) 25 NG/ML VITAMIN D, 25 [id number] 00:00:00 Test Item Value Reference Range Interpretation Comments VITAMIN D, 25 OH (test code = 4958) 25 NG/ML [id number] 00:00:00 Test Item Value Reference Range Interpretation Comments LITHIUM (test code = 2038) 0.31 MEQ/L [id number] 00:00:00 Test Item Value Reference Range Interpretation Comments LITHIUM (test code = 203) 0.31 MEQ/L [id number] 00:00:00 Test Item Value Reference Range Interpretation Comments TSH, THIRD GENERATION (test code 2.180 UIU/ML = 2821) [id number] 00:00:00 Test Item Value Reference Range Interpretation Comments TSH, THIRD GENERATION (test code 2.180 UIU/ML = 2821) [id number] 00:00:00 Test Item Value Reference Range Interpretation Comments TSH, THIRD GENERATION (test code 2.180 UIU/ML = 2821) [id number] 00:00:00 Test Item Value Reference Range Interpretation Comments LITHIUM (test code = 203) 0.31 MEQ/L VITAMIN D, 25 [id number] 00:00:00 Test Item Value Reference Range Interpretation Comments VITAMIN D, 25 OH (test code = 4958) 25 NG/ML VITAMIN D, 25 [id number] 00:00:00 Test Item Value Reference Range Interpretation Comments VITAMIN D, 25 OH (test code = 4958) 25 NG/ML [id number] 00:00:00 Test Item Value Reference Range Interpretation Comments LITHIUM (test code = 203) 0.31 MEQ/L [id number] 00:00:00 Test Item Value Reference Range Interpretation Comments LITHIUM (test code = 203) 0.31 MEQ/L [id number] 00:00:00 Test Item Value Reference Range Interpretation Comments TSH, THIRD GENERATION (test code 2.180 UIU/ML = 2821) [id number] 00:00:00 Test Item Value Reference Range Interpretation Comments TSH, THIRD GENERATION (test code 2.180 UIU/ML = 2821) [id number] 00:00:00 Test Item Value Reference Range Interpretation Comments TSH, THIRD GENERATION (test code 2.180 UIU/ML = 2821) [id number] 00:00:00 Test Item Value Reference Range Interpretation Comments LITHIUM (test code = 2038) 0.31 MEQ/L VITAMIN D, 25 [id number] 00:00:00 Test Item Value Reference Range Interpretation Comments VITAMIN D, 25 OH (test code = 4958) 25 NG/ML VITAMIN D, 25 [id number] 00:00:00 Test Item Value Reference Range Interpretation Comments VITAMIN D, 25 OH (test code = 4958) 25 NG/ML [id number] 00:00:00 Test Item Value Reference Range Interpretation Comments LITHIUM (test code = 2038) 0.31 MEQ/L [id number] 00:00:00 Test Item Value Reference Range Interpretation Comments LITHIUM (test code = 2038) 0.31 MEQ/L [id number] 00:00:00 Test Item Value Reference Range Interpretation Comments TSH, THIRD GENERATION (test code 2.180 UIU/ML = 2821) [id number] 00:00:00 Test Item Value Reference Range Interpretation Comments TSH, THIRD GENERATION (test code 2.180 UIU/ML = 2821) [id number] 00:00:00 Test Item Value Reference Range Interpretation Comments TSH, THIRD GENERATION (test code 2.180 UIU/ML = 2821) [id number] 00:00:00 Test Item Value Reference Range Interpretation Comments LITHIUM (test code = 2038) 0.31 MEQ/L VITAMIN D, 25 [id number] 00:00:00 Test Item Value Reference Range Interpretation Comments VITAMIN D, 25 OH (test code = 4958) 25 NG/ML VITAMIN D, 25 [id number] 00:00:00 Test Item Value Reference Range Interpretation Comments VITAMIN D, 25 OH (test code = 4958) 25 NG/ML [id number] 00:00:00 Test Item Value Reference Range Interpretation Comments LITHIUM (test code = 2039) 0.31 MEQ/L [id number] 00:00:00 Test Item Value Reference Range Interpretation Comments LITHIUM (test code = 2039) 0.31 MEQ/L [id number] 00:00:00 Test Item Value Reference Range Interpretation Comments TSH, THIRD GENERATION (test code 2.180 UIU/ML = 2821) [id number] 00:00:00 Test Item Value Reference Range Interpretation Comments TSH, THIRD GENERATION (test code 2.180 UIU/ML = 2821) [id number] 00:00:00 Test Item Value Reference Range Interpretation Comments TSH, THIRD GENERATION (test code 2.180 UIU/ML = 2821) [id number] 00:00:00 Test Item Value Reference Range Interpretation Comments LITHIUM (test code = 2039) 0.31 MEQ/L [id number] 00:00:00 Test Item Value Reference Range Interpretation Comments LITHIUM (test code = 2039) 0.31 MEQ/L [id number] 00:00:00 Test Item Value Reference Range Interpretation Comments LITHIUM (test code = 2039) 0.31 MEQ/L VITAMIN D, 25 [id number] 00:00:00 Test Item Value Reference Range Interpretation Comments VITAMIN D, 25 OH (test code = 4958) 25 NG/ML VITAMIN D, 25 [id number] 00:00:00 Test Item Value Reference Range Interpretation Comments VITAMIN D, 25 OH (test code = 4958) 25 NG/ML [id number] 00:00:00 Test Item Value Reference Range Interpretation Comments TSH, THIRD GENERATION (test code 2.180 UIU/ML = 2821) [id number] 00:00:00 Test Item Value Reference Range Interpretation Comments TSH, THIRD GENERATION (test code 2.180 UIU/ML = 2821) [id number] 00:00:00 Test Item Value Reference Range Interpretation Comments TSH, THIRD GENERATION (test code 2.180 UIU/ML = 2821) [id number] 00:00:00 Test Item Value Reference Range Interpretation Comments LITHIUM (test code = 2038) 0.31 MEQ/L [id number] 00:00:00 Test Item Value Reference Range Interpretation Comments LITHIUM (test code = 2038) 0.31 MEQ/L VITAMIN D, 25 [id number] 00:00:00 Test Item Value Reference Range Interpretation Comments VITAMIN D, 25 OH (test code = 4958) 25 NG/ML VITAMIN D, 25 [id number] 00:00:00 Test Item Value Reference Range Interpretation Comments VITAMIN D, 25 OH (test code = 4958) 25 NG/ML [id number] 00:00:00 Test Item Value Reference Range Interpretation Comments LITHIUM (test code = 2038) 0.31 MEQ/L [id number] 00:00:00 Test Item Value Reference Range Interpretation Comments TSH, THIRD GENERATION (test code 2.180 UIU/ML = 2821) [id number] 00:00:00 Test Item Value Reference Range Interpretation Comments TSH, THIRD GENERATION (test code 2.180 UIU/ML = 2821) [id number] 00:00:00 Test Item Value Reference Range Interpretation Comments TSH, THIRD GENERATION (test code 2.180 UIU/ML = 2821) [id number] 00:00:00 Test Item Value Reference Range Interpretation Comments LITHIUM (test code = 2038) 0.31 MEQ/L VITAMIN D, 25 [id number] 00:00:00 Test Item Value Reference Range Interpretation Comments VITAMIN D, 25 OH (test code = 4958) 25 NG/ML VITAMIN D, 25 [id number] 00:00:00 Test Item Value Reference Range Interpretation Comments VITAMIN D, 25 OH (test code = 4958) 25 NG/ML [id number] 00:00:00 Test Item Value Reference Range Interpretation Comments LITHIUM (test code = 2038) 0.31 MEQ/L [id number] 00:00:00 Test Item Value Reference Range Interpretation Comments LITHIUM (test code = 2038) 0.31 MEQ/L [id number] 00:00:00 Test Item Value Reference Range Interpretation Comments TSH, THIRD GENERATION (test code 2.180 UIU/ML = 2821) [id number] 00:00:00 Test Item Value Reference Range Interpretation Comments TSH, THIRD GENERATION (test code 2.180 UIU/ML = 2821) [id number] 00:00:00 Test Item Value Reference Range Interpretation Comments TSH, THIRD GENERATION (test code 2.180 UIU/ML = 2821) [id number] 00:00:00 Test Item Value Reference Range Interpretation Comments LITHIUM (test code = 203) 0.31 MEQ/L VITAMIN D, 25 [id number] 00:00:00 Test Item Value Reference Range Interpretation Comments VITAMIN D, 25 OH (test code = 4958) 25 NG/ML [id number] 00:00:00 Test Item Value Reference Range Interpretation Comments LITHIUM (test code = 2038) 0.31 MEQ/L VITAMIN D, 25 [id number] 00:00:00 Test Item Value Reference Range Interpretation Comments VITAMIN D, 25 OH (test code = 4958) 25 NG/ML [id number] 00:00:00 Test Item Value Reference Range Interpretation Comments LITHIUM (test code = 2039) 0.31 MEQ/L [id number] 00:00:00 Test Item Value Reference Range Interpretation Comments TSH, THIRD GENERATION (test code 2.180 UIU/ML = 2821) [id number] 00:00:00 Test Item Value Reference Range Interpretation Comments TSH, THIRD GENERATION (test code 2.180 UIU/ML = 2821) [id number] 00:00:00 Test Item Value Reference Range Interpretation Comments TSH, THIRD GENERATION (test code 2.180 UIU/ML = 2821) [id number] 00:00:00 Test Item Value Reference Range Interpretation Comments LITHIUM (test code = 2039) 0.27 MEQ/L [id number] 00:00:00 Test Item Value Reference Range Interpretation Comments LITHIUM (test code = 2039) 0.27 MEQ/L [id number] 00:00:00 Test Item Value Reference Range Interpretation Comments LITHIUM (test code = 2039) 0.27 MEQ/L [id number] 00:00:00 Test Item Value Reference Range Interpretation Comments LITHIUM (test code = 2039) 0.27 MEQ/L [id number] 00:00:00 Test Item Value Reference Range Interpretation Comments LITHIUM (test code = 203) 0.27 MEQ/L [id number] 00:00:00 Test Item Value Reference Range Interpretation Comments LITHIUM (test code = 203) 0.27 MEQ/L [id number] 00:00:00 Test Item Value Reference Range Interpretation Comments LITHIUM (test code = 203) 0.27 MEQ/L [id number] 00:00:00 Test Item Value Reference Range Interpretation Comments LITHIUM (test code = 203) 0.27 MEQ/L [id number] 00:00:00 Test Item Value Reference Range Interpretation Comments LITHIUM (test code = 203) 0.27 MEQ/L [id number] 00:00:00 Test Item Value Reference Range Interpretation Comments LITHIUM (test code = 2038) 0.27 MEQ/L [id number] 00:00:00 Test Item Value Reference Range Interpretation Comments LITHIUM (test code = 203) 0.27 MEQ/L [id number] 00:00:00 Test Item Value Reference Range Interpretation Comments LITHIUM (test code = 203) 0.27 MEQ/L [id number] 00:00:00 Test Item Value Reference Range Interpretation Comments LITHIUM (test code = 203) 0.27 MEQ/L [id number] 00:00:00 Test Item Value Reference Range Interpretation Comments LITHIUM (test code = 203) 0.27 MEQ/L [id number] 00:00:00 Test Item Value Reference Range Interpretation Comments LITHIUM (test code = 203) 0.27 MEQ/L [id number] 00:00:00 Test Item Value Reference Range Interpretation Comments LITHIUM (test code = 203) 0.27 MEQ/L [id number] 00:00:00 Test Item Value Reference Range Interpretation Comments LITHIUM (test code = 2039) 0.27 MEQ/L [id number] 00:00:00 Test Item Value Reference Range Interpretation Comments LITHIUM (test code = 203) 0.27 MEQ/L [id number] 00:00:00 Test Item Value Reference Range Interpretation Comments LITHIUM (test code = 2039) 0.27 MEQ/L [id number] 00:00:00 Test Item Value Reference Range Interpretation Comments LITHIUM (test code = 2039) 0.27 MEQ/L [id number] 00:00:00 Test Item Value Reference Range Interpretation Comments LITHIUM (test code = 203) 0.27 MEQ/L [id number] 00:00:00 Test Item Value Reference Range Interpretation Comments LITHIUM (test code = 203) 0.27 MEQ/L [id number] 00:00:00 Test Item Value Reference Range Interpretation Comments LITHIUM (test code = 203) 0.27 MEQ/L [id number] 00:00:00 Test Item Value Reference Range Interpretation Comments LITHIUM (test code = 203) 0.27 MEQ/L [id number] 00:00:00 Test Item Value Reference Range Interpretation Comments LITHIUM (test code = 203) 0.27 MEQ/L [id number] 00:00:00 Test Item Value Reference Range Interpretation Comments LITHIUM (test code = 203) 0.27 MEQ/L [id number] 00:00:00 Test Item Value Reference Range Interpretation Comments LITHIUM (test code = 203) 0.27 MEQ/L [id number] 00:00:00 Test Item Value Reference Range Interpretation Comments LITHIUM (test code = 203) 0.27 MEQ/L [id number] 00:00:00 Test Item Value Reference Range Interpretation Comments LITHIUM (test code = 203) 0.27 MEQ/L [id number] 00:00:00 Test Item Value Reference Range Interpretation Comments LITHIUM (test code = 2039) 0.27 MEQ/L [id number] 00:00:00 Test Item Value Reference Range Interpretation Comments LITHIUM (test code = 203) 0.27 MEQ/L [id number] 00:00:00 Test Item Value Reference Range Interpretation Comments LITHIUM (test code = 2039) 0.27 MEQ/L [id number] 00:00:00 Test Item Value Reference Range Interpretation Comments LITHIUM (test code = 203) 0.27 MEQ/L [id number] 00:00:00 Test Item Value Reference Range Interpretation Comments LITHIUM (test code = 2039) 0.27 MEQ/L [id number] 00:00:00 Test Item Value Reference Range Interpretation Comments LITHIUM (test code = 2038) 0.27 MEQ/L [id number] 00:00:00 Test Item Value Reference Range Interpretation Comments LITHIUM (test code = 2038) 0.27 MEQ/L [id number] 00:00:00 Test Item Value Reference Range Interpretation Comments LITHIUM (test code = 2038) 0.27 MEQ/L [id number] 00:00:00 Test Item Value Reference Range Interpretation Comments LITHIUM (test code = 2038) 0.27 MEQ/L [id number] 00:00:00 Test Item Value Reference Range Interpretation Comments MAGNESIUM (test code = 2226) 2.2 MG/DL [id number] 00:00:00 Test Item Value Reference Range Interpretation Comments MAGNESIUM (test code = 2226) 2.2 MG/DL [id number] 00:00:00 Test Item Value Reference Range Interpretation Comments MAGNESIUM (test code = 2226) 2.2 MG/DL VITAMIN [id number] 00:00:00 Test Item Value Reference Range Interpretation Comments VITAMIN B-12 (test code = 2840) 345 PG/ML VITAMIN [id number] 00:00:00 Test Item Value Reference Range Interpretation Comments VITAMIN B-12 (test code = 2840) 345 PG/ML VITAMIN [id number] 00:00:00 Test Item Value Reference Range Interpretation Comments VITAMIN B-12 (test code = 2840) 345 PG/ML VITAMIN D, 25 [id number] 00:00:00 Test Item Value Reference Range Interpretation Comments VITAMIN D, 25 OH (test code = 4958) 18 NG/ML VITAMIN D, 25 [id number] 00:00:00 Test Item Value Reference Range Interpretation Comments VITAMIN D, 25 OH (test code = 4958) 18 NG/ML COMPREHENSIVE METABOLIC [id number] 00:00:00 Test Item Value Reference Range Interpretation Comments GLUCOSE (test code = 2217) 92 MG/DL BUN (test code = 2208) 8 MG/DL CREATININE (test code = 2214) 0.78 MG/DL eGFR AMER. (test code 101 ML/MIN/1.73 = 92693) eGFR NON- AMER. (test 87 ML/MIN/1.73 code = 27271) CALC BUN/CREAT (test code = 10 RATIO [...] code = 2219) 60 U/L COMPREHENSIVE METABOLIC [id number] 00:00:00 Test Item Value Reference Range Interpretation Comments GLUCOSE (test code = 2217) 92 MG/DL BUN (test code = 2208) 8 MG/DL CREATININE (test code = 2214) 0.78 MG/DL eGFR AMER. (test code 101 ML/MIN/1.73 = 32940) eGFR NON- AMER. (test 87 ML/MIN/1.73 code = 37345) CALC BUN/CREAT (test code = 10 RATIO [...] code = 2219) 60 U/L COMPREHENSIVE METABOLIC [id number] 00:00:00 Test Item Value Reference Range Interpretation Comments GLUCOSE (test code = 2217) 92 MG/DL BUN (test code = 2208) 8 MG/DL CREATININE (test code = 2214) 0.78 MG/DL eGFR AMER. (test code 101 ML/MIN/1.73 = 09243) eGFR NON- AMER. (test 87 ML/MIN/1.73 code = 95841) CALC BUN/CREAT (test code = 10 RATIO [...] (test code = 2219) 60 U/L LIPID [id number] 00:00:00 Test Item Value Reference Range Interpretation Comments CHOLESTEROL (test code = 2210) 121 MG/DL TRIGLYCERIDES (test code = 2232) 72 MG/DL HDL CHOLESTEROL (test code = 2220) 49 MG/DL CALC LDL CHOL (test code = 2237) 57 MG/DL RISK RATIO LDL/HDL (test code = 1.16 RATIO 2238) LIPID [id number] 00:00:00 Test Item Value Reference Range Interpretation Comments CHOLESTEROL (test code = 2210) 121 MG/DL TRIGLYCERIDES (test code = 2232) 72 MG/DL HDL CHOLESTEROL (test code = 2220) 49 MG/DL CALC LDL CHOL (test code = 2237) 57 MG/DL RISK RATIO LDL/HDL (test code = 1.16 RATIO 2238) LIPID [id number] 00:00:00 Test Item Value Reference Range Interpretation Comments CHOLESTEROL (test code = 2210) 121 MG/DL TRIGLYCERIDES (test code = 2232) 72 MG/DL HDL CHOLESTEROL (test code = 2220) 49 MG/DL CALC LDL CHOL (test code = 2237) 57 MG/DL RISK RATIO LDL/HDL (test code = 1.16 RATIO 2238) [id number] 00:00:00 Test Item Value Reference Range Interpretation Comments TSH, THIRD GENERATION (test code 3.230 UIU/ML = 2821) [id number] 00:00:00 Test Item Value Reference Range Interpretation Comments TSH, THIRD GENERATION (test code 3.230 UIU/ML = 2821) [id number] 00:00:00 Test Item Value Reference Range Interpretation Comments TSH, THIRD GENERATION (test code 3.230 UIU/ML = 2821) [id number] 00:00:00 Test Item Value Reference Range Interpretation Comments MAGNESIUM (test code = 2226) 2.2 MG/DL [id number] 00:00:00 Test Item Value Reference Range Interpretation Comments MAGNESIUM (test code = 2226) 2.2 MG/DL [id number] 00:00:00 Test Item Value Reference Range Interpretation Comments MAGNESIUM (test code = 2226) 2.2 MG/DL VITAMIN [id number] 00:00:00 Test Item Value Reference Range Interpretation Comments VITAMIN B-12 (test code = 2840) 345 PG/ML VITAMIN [id number] 00:00:00 Test Item Value Reference Range Interpretation Comments VITAMIN B-12 (test code = 2840) 345 PG/ML [id number] 00:00:00 Test Item Value Reference Range Interpretation Comments TSH, THIRD GENERATION (test code 3.230 UIU/ML = 2821) VITAMIN [id number] 00:00:00 Test Item Value Reference Range Interpretation Comments VITAMIN B-12 (test code = 2840) 345 PG/ML VITAMIN D, 25 [id number] 00:00:00 Test Item Value Reference Range Interpretation Comments VITAMIN D, 25 OH (test code = 4958) 18 NG/ML VITAMIN D, 25 [id number] 00:00:00 Test Item Value Reference Range Interpretation Comments VITAMIN D, 25 OH (test code = 4958) 18 NG/ML [id number] 00:00:00 Test Item Value Reference Range Interpretation Comments TSH, THIRD GENERATION (test code 3.230 UIU/ML = 2821) [id number] 00:00:00 Test Item Value Reference Range Interpretation Comments MAGNESIUM (test code = 2226) 2.2 MG/DL [id number] 00:00:00 Test Item Value Reference Range Interpretation Comments MAGNESIUM (test code = 2226) 2.2 MG/DL VITAMIN [id number] 00:00:00 Test Item Value Reference Range Interpretation Comments VITAMIN B-12 (test code = 2840) 345 PG/ML VITAMIN [id number] 00:00:00 Test Item Value Reference Range Interpretation Comments VITAMIN B-12 (test code = 2840) 345 PG/ML VITAMIN D, 25 [id number] 00:00:00 Test Item Value Reference Range Interpretation Comments VITAMIN D, 25 OH (test code = 4958) 18 NG/ML COMPREHENSIVE METABOLIC [id number] 00:00:00 Test Item Value Reference Range Interpretation Comments GLUCOSE (test code = 2217) 92 MG/DL BUN (test code = 2208) 8 MG/DL CREATININE (test code = 2214) 0.78 MG/DL eGFR AMER. (test code 101 ML/MIN/1.73 = 14883) eGFR NON- AMER. (test 87 ML/MIN/1.73 code = 24281) CALC BUN/CREAT (test code = 10 RATIO [...] code = 2219) 60 U/L COMPREHENSIVE METABOLIC [id number] 00:00:00 Test Item Value Reference Range Interpretation Comments GLUCOSE (test code = 2217) 92 MG/DL BUN (test code = 2208) 8 MG/DL CREATININE (test code = 2214) 0.78 MG/DL eGFR AMER. (test code 101 ML/MIN/1.73 = 29120) eGFR NON- AMER. (test 87 ML/MIN/1.73 code = 36956) CALC BUN/CREAT (test code = 10 RATIO [...] (test code = 2219) 60 U/L LIPID [id number] 00:00:00 Test Item Value Reference Range Interpretation Comments CHOLESTEROL (test code = 2210) 121 MG/DL TRIGLYCERIDES (test code = 2232) 72 MG/DL HDL CHOLESTEROL (test code = 2220) 49 MG/DL CALC LDL CHOL (test code = 2237) 57 MG/DL RISK RATIO LDL/HDL (test code = 1.16 RATIO 2238) LIPID [id number] 00:00:00 Test Item Value Reference Range Interpretation Comments CHOLESTEROL (test code = 2210) 121 MG/DL TRIGLYCERIDES (test code = 2232) 72 MG/DL HDL CHOLESTEROL (test code = 2220) 49 MG/DL CALC LDL CHOL (test code = 2237) 57 MG/DL RISK RATIO LDL/HDL (test code = 1.16 RATIO 2238) [id number] 00:00:00 Test Item Value Reference Range Interpretation Comments TSH, THIRD GENERATION (test code 3.230 UIU/ML = 2821) [id number] 00:00:00 Test Item Value Reference Range Interpretation Comments TSH, THIRD GENERATION (test code 3.230 UIU/ML = 2821) [id number] 00:00:00 Test Item Value Reference Range Interpretation Comments TSH, THIRD GENERATION (test code 3.230 UIU/ML = 2821) [id number] 00:00:00 Test Item Value Reference Range Interpretation Comments MAGNESIUM (test code = 2226) 2.2 MG/DL [id number] 00:00:00 Test Item Value Reference Range Interpretation Comments MAGNESIUM (test code = 2226) 2.2 MG/DL [id number] 00:00:00 Test Item Value Reference Range Interpretation Comments MAGNESIUM (test code = 2226) 2.2 MG/DL VITAMIN [id number] 00:00:00 Test Item Value Reference Range Interpretation Comments VITAMIN B-12 (test code = 2840) 345 PG/ML VITAMIN [id number] 00:00:00 Test Item Value Reference Range Interpretation Comments VITAMIN B-12 (test code = 2840) 345 PG/ML VITAMIN [id number] 00:00:00 Test Item Value Reference Range Interpretation Comments VITAMIN B-12 (test code = 2840) 345 PG/ML VITAMIN D, 25 [id number] 00:00:00 Test Item Value Reference Range Interpretation Comments VITAMIN D, 25 OH (test code = 4958) 18 NG/ML VITAMIN D, 25 [id number] 00:00:00 Test Item Value Reference Range Interpretation Comments VITAMIN D, 25 OH (test code = 4958) 18 NG/ML COMPREHENSIVE METABOLIC [id number] 00:00:00 Test Item Value Reference Range Interpretation Comments GLUCOSE (test code = 2217) 92 MG/DL BUN (test code = 2208) 8 MG/DL CREATININE (test code = 2214) 0.78 MG/DL eGFR AMER. (test code 101 ML/MIN/1.73 = 97233) eGFR NON- AMER. (test 87 ML/MIN/1.73 code = 26801) CALC BUN/CREAT (test code = 10 RATIO [...] code = 2219) 60 U/L COMPREHENSIVE METABOLIC [id number] 00:00:00 Test Item Value Reference Range Interpretation Comments GLUCOSE (test code = 2217) 92 MG/DL BUN (test code = 2208) 8 MG/DL CREATININE (test code = 2214) 0.78 MG/DL eGFR AMER. (test code 101 ML/MIN/1.73 = 11894) eGFR NON- AMER. (test 87 ML/MIN/1.73 code = 25107) CALC BUN/CREAT (test code = 10 RATIO [...] (test code = 2219) 60 U/L LIPID [id number] 00:00:00 Test Item Value Reference Range Interpretation Comments CHOLESTEROL (test code = 2210) 121 MG/DL TRIGLYCERIDES (test code = 2232) 72 MG/DL HDL CHOLESTEROL (test code = 2220) 49 MG/DL CALC LDL CHOL (test code = 2237) 57 MG/DL RISK RATIO LDL/HDL (test code = 1.16 RATIO 2238) LIPID [id number] 00:00:00 Test Item Value Reference Range Interpretation Comments CHOLESTEROL (test code = 2210) 121 MG/DL TRIGLYCERIDES (test code = 2232) 72 MG/DL HDL CHOLESTEROL (test code = 2220) 49 MG/DL CALC LDL CHOL (test code = 2237) 57 MG/DL RISK RATIO LDL/HDL (test code = 1.16 RATIO 2238) [id number] 00:00:00 Test Item Value Reference Range Interpretation Comments TSH, THIRD GENERATION (test code 3.230 UIU/ML = 2821) [id number] 00:00:00 Test Item Value Reference Range Interpretation Comments TSH, THIRD GENERATION (test code 3.230 UIU/ML = 2821) [id number] 00:00:00 Test Item Value Reference Range Interpretation Comments TSH, THIRD GENERATION (test code 3.230 UIU/ML = 2821) [id number] 00:00:00 Test Item Value Reference Range Interpretation Comments MAGNESIUM (test code = 2226) 2.2 MG/DL [id number] 00:00:00 Test Item Value Reference Range Interpretation Comments MAGNESIUM (test code = 2226) 2.2 MG/DL [id number] 00:00:00 Test Item Value Reference Range Interpretation Comments MAGNESIUM (test code = 2226) 2.2 MG/DL VITAMIN [id number] 00:00:00 Test Item Value Reference Range Interpretation Comments VITAMIN B-12 (test code = 2840) 345 PG/ML VITAMIN [id number] 00:00:00 Test Item Value Reference Range Interpretation Comments VITAMIN B-12 (test code = 2840) 345 PG/ML VITAMIN [id number] 00:00:00 Test Item Value Reference Range Interpretation Comments VITAMIN B-12 (test code = 2840) 345 PG/ML VITAMIN D, 25 [id number] 00:00:00 Test Item Value Reference Range Interpretation Comments VITAMIN D, 25 OH (test code = 4958) 18 NG/ML VITAMIN D, 25 [id number] 00:00:00 Test Item Value Reference Range Interpretation Comments VITAMIN D, 25 OH (test code = 4958) 18 NG/ML COMPREHENSIVE METABOLIC [id number] 00:00:00 Test Item Value Reference Range Interpretation Comments GLUCOSE (test code = 2217) 92 MG/DL BUN (test code = 2208) 8 MG/DL CREATININE (test code = 2214) 0.78 MG/DL eGFR AMER. (test code 101 ML/MIN/1.73 = 81707) eGFR NON- AMER. (test 87 ML/MIN/1.73 code = 39902) CALC BUN/CREAT (test code = 10 RATIO [...] code = 2219) 60 U/L COMPREHENSIVE METABOLIC [id number] 00:00:00 Test Item Value Reference Range Interpretation Comments GLUCOSE (test code = 2217) 92 MG/DL BUN (test code = 2208) 8 MG/DL CREATININE (test code = 2214) 0.78 MG/DL eGFR AMER. (test code 101 ML/MIN/1.73 = 16965) eGFR NON- AMER. (test 87 ML/MIN/1.73 code = 13113) CALC BUN/CREAT (test code = 10 RATIO [...] (test code = 2219) 60 U/L LIPID [id number] 00:00:00 Test Item Value Reference Range Interpretation Comments CHOLESTEROL (test code = 2210) 121 MG/DL TRIGLYCERIDES (test code = 2232) 72 MG/DL HDL CHOLESTEROL (test code = 2220) 49 MG/DL CALC LDL CHOL (test code = 2237) 57 MG/DL RISK RATIO LDL/HDL (test code = 1.16 RATIO 2238) LIPID [id number] 00:00:00 Test Item Value Reference Range Interpretation Comments CHOLESTEROL (test code = 2210) 121 MG/DL TRIGLYCERIDES (test code = 2232) 72 MG/DL HDL CHOLESTEROL (test code = 2220) 49 MG/DL CALC LDL CHOL (test code = 2237) 57 MG/DL RISK RATIO LDL/HDL (test code = 1.16 RATIO 2238) [id number] 00:00:00 Test Item Value Reference Range Interpretation Comments TSH, THIRD GENERATION (test code 3.230 UIU/ML = 2821) [id number] 00:00:00 Test Item Value Reference Range Interpretation Comments TSH, THIRD GENERATION (test code 3.230 UIU/ML = 2821) [id number] 00:00:00 Test Item Value Reference Range Interpretation Comments TSH, THIRD GENERATION (test code 3.230 UIU/ML = 2821) [id number] 00:00:00 Test Item Value Reference Range Interpretation Comments MAGNESIUM (test code = 2226) 2.2 MG/DL [id number] 00:00:00 Test Item Value Reference Range Interpretation Comments MAGNESIUM (test code = 2226) 2.2 MG/DL [id number] 00:00:00 Test Item Value Reference Range Interpretation Comments MAGNESIUM (test code = 2226) 2.2 MG/DL VITAMIN [id number] 00:00:00 Test Item Value Reference Range Interpretation Comments VITAMIN B-12 (test code = 2840) 345 PG/ML VITAMIN [id number] 00:00:00 Test Item Value Reference Range Interpretation Comments VITAMIN B-12 (test code = 2840) 345 PG/ML VITAMIN [id number] 00:00:00 Test Item Value Reference Range Interpretation Comments VITAMIN B-12 (test code = 2840) 345 PG/ML VITAMIN D, 25 [id number] 00:00:00 Test Item Value Reference Range Interpretation Comments VITAMIN D, 25 OH (test code = 4958) 18 NG/ML VITAMIN D, 25 [id number] 00:00:00 Test Item Value Reference Range Interpretation Comments VITAMIN D, 25 OH (test code = 4958) 18 NG/ML COMPREHENSIVE METABOLIC [id number] 00:00:00 Test Item Value Reference Range Interpretation Comments GLUCOSE (test code = 2217) 92 MG/DL BUN (test code = 2208) 8 MG/DL CREATININE (test code = 2214) 0.78 MG/DL eGFR AMER. (test code 101 ML/MIN/1.73 = 29978) eGFR NON- AMER. (test 87 ML/MIN/1.73 code = 22981) CALC BUN/CREAT (test code = 10 RATIO [...] code = 2219) 60 U/L COMPREHENSIVE METABOLIC [id number] 00:00:00 Test Item Value Reference Range Interpretation Comments GLUCOSE (test code = 2217) 92 MG/DL BUN (test code = 2208) 8 MG/DL CREATININE (test code = 2214) 0.78 MG/DL eGFR AMER. (test code 101 ML/MIN/1.73 = 06891) eGFR NON- AMER. (test 87 ML/MIN/1.73 code = 67801) CALC BUN/CREAT (test code = 10 RATIO [...] (test code = 2219) 60 U/L LIPID [id number] 00:00:00 Test Item Value Reference Range Interpretation Comments CHOLESTEROL (test code = 2210) 121 MG/DL TRIGLYCERIDES (test code = 2232) 72 MG/DL HDL CHOLESTEROL (test code = 2220) 49 MG/DL CALC LDL CHOL (test code = 2237) 57 MG/DL RISK RATIO LDL/HDL (test code = 1.16 RATIO 2238) LIPID [id number] 00:00:00 Test Item Value Reference Range Interpretation Comments CHOLESTEROL (test code = 2210) 121 MG/DL TRIGLYCERIDES (test code = 2232) 72 MG/DL HDL CHOLESTEROL (test code = 2220) 49 MG/DL CALC LDL CHOL (test code = 2237) 57 MG/DL RISK RATIO LDL/HDL (test code = 1.16 RATIO 2238) [id number] 00:00:00 Test Item Value Reference Range Interpretation Comments TSH, THIRD GENERATION (test code 3.230 UIU/ML = 2821) [id number] 00:00:00 Test Item Value Reference Range Interpretation Comments TSH, THIRD GENERATION (test code 3.230 UIU/ML = 2821) [id number] 00:00:00 Test Item Value Reference Range Interpretation Comments TSH, THIRD GENERATION (test code 3.230 UIU/ML = 2821) [id number] 00:00:00 Test Item Value Reference Range Interpretation Comments MAGNESIUM (test code = 2226) 2.2 MG/DL [id number] 00:00:00 Test Item Value Reference Range Interpretation Comments MAGNESIUM (test code = 2226) 2.2 MG/DL [id number] 00:00:00 Test Item Value Reference Range Interpretation Comments MAGNESIUM (test code = 2226) 2.2 MG/DL VITAMIN [id number] 00:00:00 Test Item Value Reference Range Interpretation Comments VITAMIN B-12 (test code = 2840) 345 PG/ML VITAMIN [id number] 00:00:00 Test Item Value Reference Range Interpretation Comments VITAMIN B-12 (test code = 2840) 345 PG/ML VITAMIN [id number] 00:00:00 Test Item Value Reference Range Interpretation Comments VITAMIN B-12 (test code = 2840) 345 PG/ML VITAMIN D, 25 [id number] 00:00:00 Test Item Value Reference Range Interpretation Comments VITAMIN D, 25 OH (test code = 4958) 18 NG/ML VITAMIN D, 25 [id number] 00:00:00 Test Item Value Reference Range Interpretation Comments VITAMIN D, 25 OH (test code = 4958) 18 NG/ML COMPREHENSIVE METABOLIC [id number] 00:00:00 Test Item Value Reference Range Interpretation Comments GLUCOSE (test code = 2217) 92 MG/DL BUN (test code = 2208) 8 MG/DL CREATININE (test code = 2214) 0.78 MG/DL eGFR AMER. (test code 101 ML/MIN/1.73 = 41685) eGFR NON- AMER. (test 87 ML/MIN/1.73 code = 13823) CALC BUN/CREAT (test code = 10 RATIO [...] code = 2219) 60 U/L COMPREHENSIVE METABOLIC [id number] 00:00:00 Test Item Value Reference Range Interpretation Comments GLUCOSE (test code = 2217) 92 MG/DL BUN (test code = 2208) 8 MG/DL CREATININE (test code = 2214) 0.78 MG/DL eGFR AMER. (test code 101 ML/MIN/1.73 = 97312) eGFR NON- AMER. (test 87 ML/MIN/1.73 code = 61814) CALC BUN/CREAT (test code = 10 RATIO [...] (test code = 2219) 60 U/L LIPID [id number] 00:00:00 Test Item Value Reference Range Interpretation Comments CHOLESTEROL (test code = 2210) 121 MG/DL TRIGLYCERIDES (test code = 2232) 72 MG/DL HDL CHOLESTEROL (test code = 2220) 49 MG/DL CALC LDL CHOL (test code = 2237) 57 MG/DL RISK RATIO LDL/HDL (test code = 1.16 RATIO 2238) LIPID [id number] 00:00:00 Test Item Value Reference Range Interpretation Comments CHOLESTEROL (test code = 2210) 121 MG/DL TRIGLYCERIDES (test code = 2232) 72 MG/DL HDL CHOLESTEROL (test code = 2220) 49 MG/DL CALC LDL CHOL (test code = 2237) 57 MG/DL RISK RATIO LDL/HDL (test code = 1.16 RATIO 2238) [id number] 00:00:00 Test Item Value Reference Range Interpretation Comments TSH, THIRD GENERATION (test code 3.230 UIU/ML = 2821) [id number] 00:00:00 Test Item Value Reference Range Interpretation Comments TSH, THIRD GENERATION (test code 3.230 UIU/ML = 2821) [id number] 00:00:00 Test Item Value Reference Range Interpretation Comments TSH, THIRD GENERATION (test code 3.230 UIU/ML = 2821) [id number] 00:00:00 Test Item Value Reference Range Interpretation Comments MAGNESIUM (test code = 2226) 2.2 MG/DL [id number] 00:00:00 Test Item Value Reference Range Interpretation Comments MAGNESIUM (test code = 2226) 2.2 MG/DL [id number] 00:00:00 Test Item Value Reference Range Interpretation Comments MAGNESIUM (test code = 2226) 2.2 MG/DL VITAMIN [id number] 00:00:00 Test Item Value Reference Range Interpretation Comments VITAMIN B-12 (test code = 2840) 345 PG/ML VITAMIN [id number] 00:00:00 Test Item Value Reference Range Interpretation Comments VITAMIN B-12 (test code = 2840) 345 PG/ML VITAMIN [id number] 00:00:00 Test Item Value Reference Range Interpretation Comments VITAMIN B-12 (test code = 2840) 345 PG/ML VITAMIN D, 25 [id number] 00:00:00 Test Item Value Reference Range Interpretation Comments VITAMIN D, 25 OH (test code = 4958) 18 NG/ML VITAMIN D, 25 [id number] 00:00:00 Test Item Value Reference Range Interpretation Comments VITAMIN D, 25 OH (test code = 4958) 18 NG/ML COMPREHENSIVE METABOLIC [id number] 00:00:00 Test Item Value Reference Range Interpretation Comments GLUCOSE (test code = 2217) 92 MG/DL BUN (test code = 2208) 8 MG/DL CREATININE (test code = 2214) 0.78 MG/DL eGFR AMER. (test code 101 ML/MIN/1.73 = 84658) eGFR NON- AMER. (test 87 ML/MIN/1.73 code = 80684) CALC BUN/CREAT (test code = 10 RATIO [...] code = 2219) 60 U/L COMPREHENSIVE METABOLIC [id number] 00:00:00 Test Item Value Reference Range Interpretation Comments GLUCOSE (test code = 2217) 92 MG/DL BUN (test code = 2208) 8 MG/DL CREATININE (test code = 2214) 0.78 MG/DL eGFR AMER. (test code 101 ML/MIN/1.73 = 10669) eGFR NON- AMER. (test 87 ML/MIN/1.73 code = 64700) CALC BUN/CREAT (test code = 10 RATIO [...] (test code = 2219) 60 U/L LIPID [id number] 00:00:00 Test Item Value Reference Range Interpretation Comments CHOLESTEROL (test code = 2210) 121 MG/DL TRIGLYCERIDES (test code = 2232) 72 MG/DL HDL CHOLESTEROL (test code = 2220) 49 MG/DL CALC LDL CHOL (test code = 2237) 57 MG/DL RISK RATIO LDL/HDL (test code = 1.16 RATIO 2238) LIPID [id number] 00:00:00 Test Item Value Reference Range Interpretation Comments CHOLESTEROL (test code = 2210) 121 MG/DL TRIGLYCERIDES (test code = 2232) 72 MG/DL HDL CHOLESTEROL (test code = 2220) 49 MG/DL CALC LDL CHOL (test code = 2237) 57 MG/DL RISK RATIO LDL/HDL (test code = 1.16 RATIO 2238) [id number] 00:00:00 Test Item Value Reference Range Interpretation Comments TSH, THIRD GENERATION (test code 3.230 UIU/ML = 2821) [id number] 00:00:00 Test Item Value Reference Range Interpretation Comments TSH, THIRD GENERATION (test code 3.230 UIU/ML = 2821) [id number] 00:00:00 Test Item Value Reference Range Interpretation Comments TSH, THIRD GENERATION (test code 3.230 UIU/ML = 2821) [id number] 00:00:00 Test Item Value Reference Range Interpretation Comments MAGNESIUM (test code = 2226) 2.2 MG/DL [id number] 00:00:00 Test Item Value Reference Range Interpretation Comments MAGNESIUM (test code = 2226) 2.2 MG/DL [id number] 00:00:00 Test Item Value Reference Range Interpretation Comments MAGNESIUM (test code = 2226) 2.2 MG/DL VITAMIN [id number] 00:00:00 Test Item Value Reference Range Interpretation Comments VITAMIN B-12 (test code = 2840) 345 PG/ML VITAMIN [id number] 00:00:00 Test Item Value Reference Range Interpretation Comments VITAMIN B-12 (test code = 2840) 345 PG/ML VITAMIN [id number] 00:00:00 Test Item Value Reference Range Interpretation Comments VITAMIN B-12 (test code = 2840) 345 PG/ML VITAMIN D, 25 [id number] 00:00:00 Test Item Value Reference Range Interpretation Comments VITAMIN D, 25 OH (test code = 4958) 18 NG/ML VITAMIN D, 25 [id number] 00:00:00 Test Item Value Reference Range Interpretation Comments VITAMIN D, 25 OH (test code = 4958) 18 NG/ML COMPREHENSIVE METABOLIC [id number] 00:00:00 Test Item Value Reference Range Interpretation Comments GLUCOSE (test code = 2217) 92 MG/DL BUN (test code = 2208) 8 MG/DL CREATININE (test code = 2214) 0.78 MG/DL eGFR AMER. (test code 101 ML/MIN/1.73 = 76855) eGFR NON- AMER. (test 87 ML/MIN/1.73 code = 61872) CALC BUN/CREAT (test code = 10 RATIO [...] code = 2219) 60 U/L COMPREHENSIVE METABOLIC [id number] 00:00:00 Test Item Value Reference Range Interpretation Comments GLUCOSE (test code = 2217) 92 MG/DL BUN (test code = 2208) 8 MG/DL CREATININE (test code = 2214) 0.78 MG/DL eGFR AMER. (test code 101 ML/MIN/1.73 = 45329) eGFR NON- AMER. (test 87 ML/MIN/1.73 code = 90015) CALC BUN/CREAT (test code = 10 RATIO [...] (test code = 2219) 60 U/L LIPID [id number] 00:00:00 Test Item Value Reference Range Interpretation Comments CHOLESTEROL (test code = 2210) 121 MG/DL TRIGLYCERIDES (test code = 2232) 72 MG/DL HDL CHOLESTEROL (test code = 2220) 49 MG/DL CALC LDL CHOL (test code = 2237) 57 MG/DL RISK RATIO LDL/HDL (test code = 1.16 RATIO 2238) LIPID [id number] 00:00:00 Test Item Value Reference Range Interpretation Comments CHOLESTEROL (test code = 2210) 121 MG/DL TRIGLYCERIDES (test code = 2232) 72 MG/DL HDL CHOLESTEROL (test code = 2220) 49 MG/DL CALC LDL CHOL (test code = 2237) 57 MG/DL RISK RATIO LDL/HDL (test code = 1.16 RATIO 2238) [id number] 00:00:00 Test Item Value Reference Range Interpretation Comments TSH, THIRD GENERATION (test code 3.230 UIU/ML = 2821) [id number] 00:00:00 Test Item Value Reference Range Interpretation Comments TSH, THIRD GENERATION (test code 3.230 UIU/ML = 2821) [id number] 00:00:00 Test Item Value Reference Range Interpretation Comments TSH, THIRD GENERATION (test code 3.230 UIU/ML = 2821) [id number] 00:00:00 Test Item Value Reference Range Interpretation Comments MAGNESIUM (test code = 2226) 2.2 MG/DL [id number] 00:00:00 Test Item Value Reference Range Interpretation Comments MAGNESIUM (test code = 2226) 2.2 MG/DL [id number] 00:00:00 Test Item Value Reference Range Interpretation Comments MAGNESIUM (test code = 2226) 2.2 MG/DL VITAMIN [id number] 00:00:00 Test Item Value Reference Range Interpretation Comments VITAMIN B-12 (test code = 2840) 345 PG/ML VITAMIN [id number] 00:00:00 Test Item Value Reference Range Interpretation Comments VITAMIN B-12 (test code = 2840) 345 PG/ML VITAMIN [id number] 00:00:00 Test Item Value Reference Range Interpretation Comments VITAMIN B-12 (test code = 2840) 345 PG/ML VITAMIN D, 25 [id number] 00:00:00 Test Item Value Reference Range Interpretation Comments VITAMIN D, 25 OH (test code = 4958) 18 NG/ML VITAMIN D, 25 [id number] 00:00:00 Test Item Value Reference Range Interpretation Comments VITAMIN D, 25 OH (test code = 4958) 18 NG/ML COMPREHENSIVE METABOLIC [id number] 00:00:00 Test Item Value Reference Range Interpretation Comments GLUCOSE (test code = 2217) 92 MG/DL BUN (test code = 2208) 8 MG/DL CREATININE (test code = 2214) 0.78 MG/DL eGFR AMER. (test code 101 ML/MIN/1.73 = 62018) eGFR NON- AMER. (test 87 ML/MIN/1.73 code = 27300) CALC BUN/CREAT (test code = 10 RATIO [...] code = 2219) 60 U/L COMPREHENSIVE METABOLIC [id number] 00:00:00 Test Item Value Reference Range Interpretation Comments GLUCOSE (test code = 2217) 92 MG/DL BUN (test code = 2208) 8 MG/DL CREATININE (test code = 2214) 0.78 MG/DL eGFR AMER. (test code 101 ML/MIN/1.73 = 77110) eGFR NON- AMER. (test 87 ML/MIN/1.73 code = 52235) CALC BUN/CREAT (test code = 10 RATIO [...] (test code = 2219) 60 U/L LIPID [id number] 00:00:00 Test Item Value Reference Range Interpretation Comments CHOLESTEROL (test code = 2210) 121 MG/DL TRIGLYCERIDES (test code = 2232) 72 MG/DL HDL CHOLESTEROL (test code = 2220) 49 MG/DL CALC LDL CHOL (test code = 2237) 57 MG/DL RISK RATIO LDL/HDL (test code = 1.16 RATIO 2238) LIPID [id number] 00:00:00 Test Item Value Reference Range Interpretation Comments CHOLESTEROL (test code = 2210) 121 MG/DL TRIGLYCERIDES (test code = 2232) 72 MG/DL HDL CHOLESTEROL (test code = 2220) 49 MG/DL CALC LDL CHOL (test code = 2237) 57 MG/DL RISK RATIO LDL/HDL (test code = 1.16 RATIO 2238) [id number] 00:00:00 Test Item Value Reference Range Interpretation Comments TSH, THIRD GENERATION (test code 3.230 UIU/ML = 2821) [id number] 00:00:00 Test Item Value Reference Range Interpretation Comments TSH, THIRD GENERATION (test code 3.230 UIU/ML = 2821) [id number] 00:00:00 Test Item Value Reference Range Interpretation Comments TSH, THIRD GENERATION (test code 3.230 UIU/ML = 2821) [id number] 00:00:00 Test Item Value Reference Range Interpretation Comments MAGNESIUM (test code = 2226) 2.2 MG/DL [id number] 00:00:00 Test Item Value Reference Range Interpretation Comments MAGNESIUM (test code = 2226) 2.2 MG/DL [id number] 00:00:00 Test Item Value Reference Range Interpretation Comments MAGNESIUM (test code = 2226) 2.2 MG/DL VITAMIN [id number] 00:00:00 Test Item Value Reference Range Interpretation Comments VITAMIN B-12 (test code = 2840) 345 PG/ML VITAMIN [id number] 00:00:00 Test Item Value Reference Range Interpretation Comments VITAMIN B-12 (test code = 2840) 345 PG/ML VITAMIN [id number] 00:00:00 Test Item Value Reference Range Interpretation Comments VITAMIN B-12 (test code = 2840) 345 PG/ML VITAMIN D, 25 [id number] 00:00:00 Test Item Value Reference Range Interpretation Comments VITAMIN D, 25 OH (test code = 4958) 18 NG/ML VITAMIN D, 25 [id number] 00:00:00 Test Item Value Reference Range Interpretation Comments VITAMIN D, 25 OH (test code = 4958) 18 NG/ML COMPREHENSIVE METABOLIC [id number] 00:00:00 Test Item Value Reference Range Interpretation Comments GLUCOSE (test code = 2217) 92 MG/DL BUN (test code = 2208) 8 MG/DL CREATININE (test code = 2214) 0.78 MG/DL eGFR AMER. (test code 101 ML/MIN/1.73 = 69204) eGFR NON- AMER. (test 87 ML/MIN/1.73 code = 38801) CALC BUN/CREAT (test code = 10 RATIO [...] code = 2219) 60 U/L COMPREHENSIVE METABOLIC [id number] 00:00:00 Test Item Value Reference Range Interpretation Comments GLUCOSE (test code = 2217) 92 MG/DL BUN (test code = 2208) 8 MG/DL CREATININE (test code = 2214) 0.78 MG/DL eGFR AMER. (test code 101 ML/MIN/1.73 = 46974) eGFR NON- AMER. (test 87 ML/MIN/1.73 code = 95190) CALC BUN/CREAT (test code = 10 RATIO [...] (test code = 2219) 60 U/L LIPID [id number] 00:00:00 Test Item Value Reference Range Interpretation Comments CHOLESTEROL (test code = 2210) 121 MG/DL TRIGLYCERIDES (test code = 2232) 72 MG/DL HDL CHOLESTEROL (test code = 2220) 49 MG/DL CALC LDL CHOL (test code = 2237) 57 MG/DL RISK RATIO LDL/HDL (test code = 1.16 RATIO 2238) LIPID [id number] 00:00:00 Test Item Value Reference Range Interpretation Comments CHOLESTEROL (test code = 2210) 121 MG/DL TRIGLYCERIDES (test code = 2232) 72 MG/DL HDL CHOLESTEROL (test code = 2220) 49 MG/DL CALC LDL CHOL (test code = 2237) 57 MG/DL RISK RATIO LDL/HDL (test code = 1.16 RATIO 2238) [id number] 00:00:00 Test Item Value Reference Range Interpretation Comments TSH, THIRD GENERATION (test code 3.230 UIU/ML = 2821) [id number] 00:00:00 Test Item Value Reference Range Interpretation Comments TSH, THIRD GENERATION (test code 3.230 UIU/ML = 2821) [id number] 00:00:00 Test Item Value Reference Range Interpretation Comments TSH, THIRD GENERATION (test code 3.230 UIU/ML = 2821) [id number] 00:00:00 Test Item Value Reference Range Interpretation Comments MAGNESIUM (test code = 2226) 2.2 MG/DL [id number] 00:00:00 Test Item Value Reference Range Interpretation Comments MAGNESIUM (test code = 2226) 2.2 MG/DL [id number] 00:00:00 Test Item Value Reference Range Interpretation Comments MAGNESIUM (test code = 2226) 2.2 MG/DL VITAMIN [id number] 00:00:00 Test Item Value Reference Range Interpretation Comments VITAMIN B-12 (test code = 2840) 345 PG/ML VITAMIN [id number] 00:00:00 Test Item Value Reference Range Interpretation Comments VITAMIN B-12 (test code = 2840) 345 PG/ML VITAMIN [id number] 00:00:00 Test Item Value Reference Range Interpretation Comments VITAMIN B-12 (test code = 2840) 345 PG/ML VITAMIN D, 25 [id number] 00:00:00 Test Item Value Reference Range Interpretation Comments VITAMIN D, 25 OH (test code = 4958) 18 NG/ML VITAMIN D, 25 [id number] 00:00:00 Test Item Value Reference Range Interpretation Comments VITAMIN D, 25 OH (test code = 4958) 18 NG/ML COMPREHENSIVE METABOLIC [id number] 00:00:00 Test Item Value Reference Range Interpretation Comments GLUCOSE (test code = 2217) 92 MG/DL BUN (test code = 2208) 8 MG/DL CREATININE (test code = 2214) 0.78 MG/DL eGFR AMER. (test code 101 ML/MIN/1.73 = 16246) eGFR NON- AMER. (test 87 ML/MIN/1.73 code = 15592) CALC BUN/CREAT (test code = 10 RATIO [...] code = 2219) 60 U/L COMPREHENSIVE METABOLIC [id number] 00:00:00 Test Item Value Reference Range Interpretation Comments GLUCOSE (test code = 2217) 92 MG/DL BUN (test code = 2208) 8 MG/DL CREATININE (test code = 2214) 0.78 MG/DL eGFR AMER. (test code 101 ML/MIN/1.73 = 72400) eGFR NON- AMER. (test 87 ML/MIN/1.73 code = 30650) CALC BUN/CREAT (test code = 10 RATIO [...] (test code = 2219) 60 U/L LIPID [id number] 00:00:00 Test Item Value Reference Range Interpretation Comments CHOLESTEROL (test code = 2210) 121 MG/DL TRIGLYCERIDES (test code = 2232) 72 MG/DL HDL CHOLESTEROL (test code = 2220) 49 MG/DL CALC LDL CHOL (test code = 2237) 57 MG/DL RISK RATIO LDL/HDL (test code = 1.16 RATIO 2238) LIPID [id number] 00:00:00 Test Item Value Reference Range Interpretation Comments CHOLESTEROL (test code = 2210) 121 MG/DL TRIGLYCERIDES (test code = 2232) 72 MG/DL HDL CHOLESTEROL (test code = 2220) 49 MG/DL CALC LDL CHOL (test code = 2237) 57 MG/DL RISK RATIO LDL/HDL (test code = 1.16 RATIO 2238) [id number] 00:00:00 Test Item Value Reference Range Interpretation Comments TSH, THIRD GENERATION (test code 3.230 UIU/ML = 2821) [id number] 00:00:00 Test Item Value Reference Range Interpretation Comments TSH, THIRD GENERATION (test code 3.230 UIU/ML = 2821) [id number] 00:00:00 Test Item Value Reference Range Interpretation Comments TSH, THIRD GENERATION (test code 3.230 UIU/ML = 2821) [id number] 00:00:00 Test Item Value Reference Range Interpretation Comments MAGNESIUM (test code = 2226) 2.2 MG/DL [id number] 00:00:00 Test Item Value Reference Range Interpretation Comments MAGNESIUM (test code = 2226) 2.2 MG/DL [id number] 00:00:00 Test Item Value Reference Range Interpretation Comments MAGNESIUM (test code = 2226) 2.2 MG/DL VITAMIN [id number] 00:00:00 Test Item Value Reference Range Interpretation Comments VITAMIN B-12 (test code = 2840) 345 PG/ML VITAMIN [id number] 00:00:00 Test Item Value Reference Range Interpretation Comments VITAMIN B-12 (test code = 2840) 345 PG/ML VITAMIN [id number] 00:00:00 Test Item Value Reference Range Interpretation Comments VITAMIN B-12 (test code = 2840) 345 PG/ML VITAMIN D, 25 [id number] 00:00:00 Test Item Value Reference Range Interpretation Comments VITAMIN D, 25 OH (test code = 4958) 18 NG/ML VITAMIN D, 25 [id number] 00:00:00 Test Item Value Reference Range Interpretation Comments VITAMIN D, 25 OH (test code = 4958) 18 NG/ML COMPREHENSIVE METABOLIC [id number] 00:00:00 Test Item Value Reference Range Interpretation Comments GLUCOSE (test code = 2217) 92 MG/DL BUN (test code = 2208) 8 MG/DL CREATININE (test code = 2214) 0.78 MG/DL eGFR AMER. (test code 101 ML/MIN/1.73 = 67498) eGFR NON- AMER. (test 87 ML/MIN/1.73 code = 72625) CALC BUN/CREAT (test code = 10 RATIO [...] code = 2219) 60 U/L COMPREHENSIVE METABOLIC [id number] 00:00:00 Test Item Value Reference Range Interpretation Comments GLUCOSE (test code = 2217) 92 MG/DL BUN (test code = 2208) 8 MG/DL CREATININE (test code = 2214) 0.78 MG/DL eGFR AMER. (test code 101 ML/MIN/1.73 = 29936) eGFR NON- AMER. (test 87 ML/MIN/1.73 code = 79903) CALC BUN/CREAT (test code = 10 RATIO [...] (test code = 2219) 60 U/L LIPID [id number] 00:00:00 Test Item Value Reference Range Interpretation Comments CHOLESTEROL (test code = 2210) 121 MG/DL TRIGLYCERIDES (test code = 2232) 72 MG/DL HDL CHOLESTEROL (test code = 2220) 49 MG/DL CALC LDL CHOL (test code = 2237) 57 MG/DL RISK RATIO LDL/HDL (test code = 1.16 RATIO 2238) LIPID [id number] 00:00:00 Test Item Value Reference Range Interpretation Comments CHOLESTEROL (test code = 2210) 121 MG/DL TRIGLYCERIDES (test code = 2232) 72 MG/DL HDL CHOLESTEROL (test code = 2220) 49 MG/DL CALC LDL CHOL (test code = 2237) 57 MG/DL RISK RATIO LDL/HDL (test code = 1.16 RATIO 2238) [id number] 00:00:00 Test Item Value Reference Range Interpretation Comments TSH, THIRD GENERATION (test code 3.230 UIU/ML = 2821) [id number] 00:00:00 Test Item Value Reference Range Interpretation Comments TSH, THIRD GENERATION (test code 3.230 UIU/ML = 2821) [id number] 00:00:00 Test Item Value Reference Range Interpretation Comments TSH, THIRD GENERATION (test code 3.230 UIU/ML = 2821) PAP TEST, THINPREP, [id number] 00:00:00 Test Item Value Reference Range Interpretation Comments SOURCE: (test code = Cervical/Endocervical 8001) SLIDES: (test code = 1 8011) LMP: (test code = 8021) SEE NOTE SPECIMEN ADEQUACY: (test (NOTE) code = 40001) INTERPRETATION: (test NILM/NO EPITH. code = 60630) ABNORMALITY;SEE BELOW OTHER COMMENTS: (test (NOTE) code = 8081) AUDIENCE DEVELOPMENT MANAGER: (test LIGIA Haile (ASCP) code = 8101) LOCATION: (test code = (NOTE) 29226) CPT: (test code = 8140) (NOTE) PAP TEST, THINPREP, [id number] 00:00:00 Test Item Value Reference Range Interpretation Comments SOURCE: (test code = Cervical/Endocervical 8001) SLIDES: (test code = 1 8011) LMP: (test code = 8021) SEE NOTE SPECIMEN ADEQUACY: (test (NOTE) code = 25847) INTERPRETATION: (test NILM/NO EPITH. code = 35729) ABNORMALITY;SEE BELOW OTHER COMMENTS: (test (NOTE) code = 8081) AUDIENCE DEVELOPMENT MANAGER: (test LIGIA Haile (ASCP) code = 8101) LOCATION: (test code = (NOTE) 84040) CPT: (test code = 8140) (NOTE) PAP TEST, THINPREP, [id number] 00:00:00 Test Item Value Reference Range Interpretation Comments SOURCE: (test code = Cervical/Endocervical 8001) SLIDES: (test code = 1 8011) LMP: (test code = 8021) SEE NOTE SPECIMEN ADEQUACY: (test (NOTE) code = 02215) INTERPRETATION: (test NILM/NO EPITH. code = 46977) ABNORMALITY;SEE BELOW OTHER COMMENTS: (test (NOTE) code = 8081) AUDIENCE DEVELOPMENT MANAGER: (test LIGIA Haile (ASCP) code = 8101) LOCATION: (test code = (NOTE) 20344) CPT: (test code = 8140) (NOTE) HPV HIGH RISK WITH GENOTYPE, [id number] 00:00:00 Test Item Value Reference Range Interpretation Comments HPV HIGH RISK INTERP (test code = NEGATIVE 69099) HPV 16 (test code = 24560) NEGATIVE HPV 18 (test code = 92429) NEGATIVE HPV, HR, OTHER GENOTYPES (test code NEGATIVE = 60980) HPV HIGH RISK WITH GENOTYPE, [id number] 00:00:00 Test Item Value Reference Range Interpretation Comments HPV HIGH RISK INTERP (test code = NEGATIVE 22743) HPV 16 (test code = 70718) NEGATIVE HPV 18 (test code = 43830) NEGATIVE HPV, HR, OTHER GENOTYPES (test code NEGATIVE = 60943) HPV HIGH RISK WITH GENOTYPE, [id number] 00:00:00 Test Item Value Reference Range Interpretation Comments HPV HIGH RISK INTERP (test code = NEGATIVE 47625) HPV 16 (test code = 82272) NEGATIVE HPV 18 (test code = 73184) NEGATIVE HPV, HR, OTHER GENOTYPES (test code NEGATIVE = 88869) PAP TEST, THINPREP, [id number] 00:00:00 Test Item Value Reference Range Interpretation Comments SOURCE: (test code = Cervical/Endocervical 8001) SLIDES: (test code = 1 8011) LMP: (test code = 8021) SEE NOTE SPECIMEN ADEQUACY: (test (NOTE) code = 64990) INTERPRETATION: (test NILM/NO EPITH. code = 14765) ABNORMALITY;SEE BELOW OTHER COMMENTS: (test (NOTE) code = 8081) AUDIENCE DEVELOPMENT MANAGER: (test Yoselin Enrique CT (ASCP) code = 8101) LOCATION: (test code = (NOTE) 48944) CPT: (test code = 8140) (NOTE) PAP TEST, THINPREP, [id number] 00:00:00 Test Item Value Reference Range Interpretation Comments SOURCE: (test code = Cervical/Endocervical 8001) SLIDES: (test code = 1 8011) LMP: (test code = 8021) SEE NOTE SPECIMEN ADEQUACY: (test (NOTE) code = 06520) INTERPRETATION: (test NILM/NO EPITH. code = 03736) ABNORMALITY;SEE BELOW OTHER COMMENTS: (test (NOTE) code = 8081) AUDIENCE DEVELOPMENT MANAGER: (test Yoselin Enrique CT (ASCP) code = 8101) LOCATION: (test code = (NOTE) 81479) CPT: (test code = 8140) (NOTE) HPV HIGH RISK WITH GENOTYPE, [id number] 00:00:00 Test Item Value Reference Range Interpretation Comments HPV HIGH RISK INTERP (test code = NEGATIVE 58164) HPV 16 (test code = 41666) NEGATIVE HPV 18 (test code = 06052) NEGATIVE HPV, HR, OTHER GENOTYPES (test code NEGATIVE = 35512) HPV HIGH RISK WITH GENOTYPE, [id number] 00:00:00 Test Item Value Reference Range Interpretation Comments HPV HIGH RISK INTERP (test code = NEGATIVE 57447) HPV 16 (test code = 14132) NEGATIVE HPV 18 (test code = 05597) NEGATIVE HPV, HR, OTHER GENOTYPES (test code NEGATIVE = 44378) PAP TEST, THINPREP, [id number] 00:00:00 Test Item Value Reference Range Interpretation Comments SOURCE: (test code = Cervical/Endocervical 8001) SLIDES: (test code = 1 8011) LMP: (test code = 8021) SEE NOTE SPECIMEN ADEQUACY: (test (NOTE) code = 98355) INTERPRETATION: (test NILM/NO EPITH. code = 49048) ABNORMALITY;SEE BELOW OTHER COMMENTS: (test (NOTE) code = 8081) AUDIENCE DEVELOPMENT MANAGER: (test Yoselin Enrique CT (ASCP) code = 8101) LOCATION: (test code = (NOTE) 18787) CPT: (test code = 8140) (NOTE) PAP TEST, THINPREP, [id number] 00:00:00 Test Item Value Reference Range Interpretation Comments SOURCE: (test code = Cervical/Endocervical 8001) SLIDES: (test code = 1 8011) LMP: (test code = 8021) SEE NOTE SPECIMEN ADEQUACY: (test (NOTE) code = 90189) INTERPRETATION: (test NILM/NO EPITH. code = 28301) ABNORMALITY;SEE BELOW OTHER COMMENTS: (test (NOTE) code = 8081) AUDIENCE DEVELOPMENT MANAGER: (test LIGIA Haile (ASCP) code = 8101) LOCATION: (test code = (NOTE) 18139) CPT: (test code = 8140) (NOTE) HPV HIGH RISK WITH GENOTYPE, [id number] 00:00:00 Test Item Value Reference Range Interpretation Comments HPV HIGH RISK INTERP (test code = NEGATIVE 93049) HPV 16 (test code = 29808) NEGATIVE HPV 18 (test code = 95669) NEGATIVE HPV, HR, OTHER GENOTYPES (test code NEGATIVE = 37439) HPV HIGH RISK WITH GENOTYPE, [id number] 00:00:00 Test Item Value Reference Range Interpretation Comments HPV HIGH RISK INTERP (test code = NEGATIVE 01889) HPV 16 (test code = 95016) NEGATIVE HPV 18 (test code = 83713) NEGATIVE HPV, HR, OTHER GENOTYPES (test code NEGATIVE = 35026) PAP TEST, THINPREP, [id number] 00:00:00 Test Item Value Reference Range Interpretation Comments SOURCE: (test code = Cervical/Endocervical 8001) SLIDES: (test code = 1 8011) LMP: (test code = 8021) SEE NOTE SPECIMEN ADEQUACY: (test (NOTE) code = 84383) INTERPRETATION: (test NILM/NO EPITH. code = 48481) ABNORMALITY;SEE BELOW OTHER COMMENTS: (test (NOTE) code = 8081) AUDIENCE DEVELOPMENT MANAGER: (test LIGIA Haile (ASCP) code = 8101) LOCATION: (test code = (NOTE) 73329) CPT: (test code = 8140) (NOTE) PAP TEST, THINPREP, [id number] 00:00:00 Test Item Value Reference Range Interpretation Comments SOURCE: (test code = Cervical/Endocervical 8001) SLIDES: (test code = 1 8011) LMP: (test code = 8021) SEE NOTE SPECIMEN ADEQUACY: (test (NOTE) code = 15202) INTERPRETATION: (test NILM/NO EPITH. code = 09173) ABNORMALITY;SEE BELOW OTHER COMMENTS: (test (NOTE) code = 8081) AUDIENCE DEVELOPMENT MANAGER: (test LIGIA Haile (ASCP) code = 8101) LOCATION: (test code = (NOTE) 26323) CPT: (test code = 8140) (NOTE) HPV HIGH RISK WITH GENOTYPE, [id number] 00:00:00 Test Item Value Reference Range Interpretation Comments HPV HIGH RISK INTERP (test code = NEGATIVE 53144) HPV 16 (test code = 03804) NEGATIVE HPV 18 (test code = 25384) NEGATIVE HPV, HR, OTHER GENOTYPES (test code NEGATIVE = 21198) HPV HIGH RISK WITH GENOTYPE, [id number] 00:00:00 Test Item Value Reference Range Interpretation Comments HPV HIGH RISK INTERP (test code = NEGATIVE 02126) HPV 16 (test code = 32708) NEGATIVE HPV 18 (test code = 53874) NEGATIVE HPV, HR, OTHER GENOTYPES (test code NEGATIVE = 99656) PAP TEST, THINPREP, [id number] 00:00:00 Test Item Value Reference Range Interpretation Comments SOURCE: (test code = Cervical/Endocervical 8001) SLIDES: (test code = 1 8011) LMP: (test code = 8021) SEE NOTE SPECIMEN ADEQUACY: (test (NOTE) code = 00271) INTERPRETATION: (test NILM/NO EPITH. code = 09852) ABNORMALITY;SEE BELOW OTHER COMMENTS: (test (NOTE) code = 8081) AUDIENCE DEVELOPMENT MANAGER: (test LIGIA Haile (ASCP) code = 8101) LOCATION: (test code = (NOTE) 93215) CPT: (test code = 8140) (NOTE) PAP TEST, THINPREP, [id number] 00:00:00 Test Item Value Reference Range Interpretation Comments SOURCE: (test code = Cervical/Endocervical 8001) SLIDES: (test code = 1 8011) LMP: (test code = 8021) SEE NOTE SPECIMEN ADEQUACY: (test (NOTE) code = 77538) INTERPRETATION: (test NILM/NO EPITH. code = 60959) ABNORMALITY;SEE BELOW OTHER COMMENTS: (test (NOTE) code = 8081) AUDIENCE DEVELOPMENT MANAGER: (test Yoselin Enrique CT (ASCP) code = 8101) LOCATION: (test code = (NOTE) 57739) CPT: (test code = 8140) (NOTE) HPV HIGH RISK WITH GENOTYPE, [id number] 00:00:00 Test Item Value Reference Range Interpretation Comments HPV HIGH RISK INTERP (test code = NEGATIVE 36614) HPV 16 (test code = 88321) NEGATIVE HPV 18 (test code = 23017) NEGATIVE HPV, HR, OTHER GENOTYPES (test code NEGATIVE = 19540) HPV HIGH RISK WITH GENOTYPE, [id number] 00:00:00 Test Item Value Reference Range Interpretation Comments HPV HIGH RISK INTERP (test code = NEGATIVE 94236) HPV 16 (test code = 80612) NEGATIVE HPV 18 (test code = 93587) NEGATIVE HPV, HR, OTHER GENOTYPES (test code NEGATIVE = 96916) PAP TEST, THINPREP, [id number] 00:00:00 Test Item Value Reference Range Interpretation Comments SOURCE: (test code = Cervical/Endocervical 8001) SLIDES: (test code = 1 8011) LMP: (test code = 8021) SEE NOTE SPECIMEN ADEQUACY: (test (NOTE) code = 85537) INTERPRETATION: (test NILM/NO EPITH. code = 79564) ABNORMALITY;SEE BELOW OTHER COMMENTS: (test (NOTE) code = 8081) AUDIENCE DEVELOPMENT MANAGER: (test Yoselin EnriqueLIGIA (ASCP) code = 8101) LOCATION: (test code = (NOTE) 68852) CPT: (test code = 8140) (NOTE) PAP TEST, THINPREP, [id number] 00:00:00 Test Item Value Reference Range Interpretation Comments SOURCE: (test code = Cervical/Endocervical 8001) SLIDES: (test code = 1 8011) LMP: (test code = 8021) SEE NOTE SPECIMEN ADEQUACY: (test (NOTE) code = 83518) INTERPRETATION: (test NILM/NO EPITH. code = 61193) ABNORMALITY;SEE BELOW OTHER COMMENTS: (test (NOTE) code = 8081) AUDIENCE DEVELOPMENT MANAGER: (test Yoselin Klaus CT (ASCP) code = 8101) LOCATION: (test code = (NOTE) 68781) CPT: (test code = 8140) (NOTE) HPV HIGH RISK WITH GENOTYPE, [id number] 00:00:00 Test Item Value Reference Range Interpretation Comments HPV HIGH RISK INTERP (test code = NEGATIVE 96818) HPV 16 (test code = 58020) NEGATIVE HPV 18 (test code = 54416) NEGATIVE HPV, HR, OTHER GENOTYPES (test code NEGATIVE = 14509) HPV HIGH RISK WITH GENOTYPE, [id number] 00:00:00 Test Item Value Reference Range Interpretation Comments HPV HIGH RISK INTERP (test code = NEGATIVE 98646) HPV 16 (test code = 63687) NEGATIVE HPV 18 (test code = 92160) NEGATIVE HPV, HR, OTHER GENOTYPES (test code NEGATIVE = 11999) PAP TEST, THINPREP, [id number] 00:00:00 Test Item Value Reference Range Interpretation Comments SOURCE: (test code = Cervical/Endocervical 8001) SLIDES: (test code = 1 8011) LMP: (test code = 8021) SEE NOTE SPECIMEN ADEQUACY: (test (NOTE) code = 49780) INTERPRETATION: (test NILM/NO EPITH. code = 57519) ABNORMALITY;SEE BELOW OTHER COMMENTS: (test (NOTE) code = 8081) AUDIENCE DEVELOPMENT MANAGER: (test LIGIA Haile (ASCP) code = 8101) LOCATION: (test code = (NOTE) 29068) CPT: (test code = 8140) (NOTE) PAP TEST, THINPREP, [id number] 00:00:00 Test Item Value Reference Range Interpretation Comments SOURCE: (test code = Cervical/Endocervical 8001) SLIDES: (test code = 1 8011) LMP: (test code = 8021) SEE NOTE SPECIMEN ADEQUACY: (test (NOTE) code = 78745) INTERPRETATION: (test NILM/NO EPITH. code = 53151) ABNORMALITY;SEE BELOW OTHER COMMENTS: (test (NOTE) code = 8081) AUDIENCE DEVELOPMENT MANAGER: (test LIGIA Haile (ASCP) code = 8101) LOCATION: (test code = (NOTE) 65636) CPT: (test code = 8140) (NOTE) HPV HIGH RISK WITH GENOTYPE, [id number] 00:00:00 Test Item Value Reference Range Interpretation Comments HPV HIGH RISK INTERP (test code = NEGATIVE 23395) HPV 16 (test code = 15599) NEGATIVE HPV 18 (test code = 81489) NEGATIVE HPV, HR, OTHER GENOTYPES (test code NEGATIVE = 08078) HPV HIGH RISK WITH GENOTYPE, [id number] 00:00:00 Test Item Value Reference Range Interpretation Comments HPV HIGH RISK INTERP (test code = NEGATIVE 55493) HPV 16 (test code = 16554) NEGATIVE HPV 18 (test code = 90688) NEGATIVE HPV, HR, OTHER GENOTYPES (test code NEGATIVE = 66087) PAP TEST, THINPREP, [id number] 00:00:00 Test Item Value Reference Range Interpretation Comments SOURCE: (test code = Cervical/Endocervical 8001) SLIDES: (test code = 1 8011) LMP: (test code = 8021) SEE NOTE SPECIMEN ADEQUACY: (test (NOTE) code = 26671) INTERPRETATION: (test NILM/NO EPITH. code = 72098) ABNORMALITY;SEE BELOW OTHER COMMENTS: (test (NOTE) code = 8081) AUDIENCE DEVELOPMENT MANAGER: (test LIGIA Haile (ASCP) code = 8101) LOCATION: (test code = (NOTE) 04114) CPT: (test code = 8140) (NOTE) PAP TEST, THINPREP, [id number] 00:00:00 Test Item Value Reference Range Interpretation Comments SOURCE: (test code = Cervical/Endocervical 8001) SLIDES: (test code = 1 8011) LMP: (test code = 8021) SEE NOTE SPECIMEN ADEQUACY: (test (NOTE) code = 66379) INTERPRETATION: (test NILM/NO EPITH. code = 42420) ABNORMALITY;SEE BELOW OTHER COMMENTS: (test (NOTE) code = 8081) AUDIENCE DEVELOPMENT MANAGER: (test LIGIA Haile (ASCP) code = 8101) LOCATION: (test code = (NOTE) 06126) CPT: (test code = 8140) (NOTE) HPV HIGH RISK WITH GENOTYPE, [id number] 00:00:00 Test Item Value Reference Range Interpretation Comments HPV HIGH RISK INTERP (test code = NEGATIVE 43610) HPV 16 (test code = 12024) NEGATIVE HPV 18 (test code = 54977) NEGATIVE HPV, HR, OTHER GENOTYPES (test code NEGATIVE = 80951) HPV HIGH RISK WITH GENOTYPE, [id number] 00:00:00 Test Item Value Reference Range Interpretation Comments HPV HIGH RISK INTERP (test code = NEGATIVE 44065) HPV 16 (test code = 38402) NEGATIVE HPV 18 (test code = 09624) NEGATIVE HPV, HR, OTHER GENOTYPES (test code NEGATIVE = 85405) PAP TEST, THINPREP, [id number] 00:00:00 Test Item Value Reference Range Interpretation Comments SOURCE: (test code = Cervical/Endocervical 8001) SLIDES: (test code = 1 8011) LMP: (test code = 8021) SEE NOTE SPECIMEN ADEQUACY: (test (NOTE) code = 33369) INTERPRETATION: (test NILM/NO EPITH. code = 48742) ABNORMALITY;SEE BELOW OTHER COMMENTS: (test (NOTE) code = 8081) AUDIENCE DEVELOPMENT MANAGER: (test LIGIA Haile (ASCP) code = 8101) LOCATION: (test code = (NOTE) 06568) CPT: (test code = 8140) (NOTE) PAP TEST, THINPREP, [id number] 00:00:00 Test Item Value Reference Range Interpretation Comments SOURCE: (test code = Cervical/Endocervical 8001) SLIDES: (test code = 1 8011) LMP: (test code = 8021) SEE NOTE SPECIMEN ADEQUACY: (test (NOTE) code = 39098) INTERPRETATION: (test NILM/NO EPITH. code = 86949) ABNORMALITY;SEE BELOW OTHER COMMENTS: (test (NOTE) code = 8081) AUDIENCE DEVELOPMENT MANAGER: (test LIGIA Haile (ASCP) code = 8101) LOCATION: (test code = (NOTE) 69394) CPT: (test code = 8140) (NOTE) HPV HIGH RISK WITH GENOTYPE, [id number] 00:00:00 Test Item Value Reference Range Interpretation Comments HPV HIGH RISK INTERP (test code = NEGATIVE 68723) HPV 16 (test code = 21506) NEGATIVE HPV 18 (test code = 15891) NEGATIVE HPV, HR, OTHER GENOTYPES (test code NEGATIVE = 97289) HPV HIGH RISK WITH GENOTYPE, [id number] 00:00:00 Test Item Value Reference Range Interpretation Comments HPV HIGH RISK INTERP (test code = NEGATIVE 17315) HPV 16 (test code = 17364) NEGATIVE HPV 18 (test code = 76032) NEGATIVE HPV, HR, OTHER GENOTYPES (test code NEGATIVE = 64636) PAP TEST, THINPREP, [id number] 00:00:00 Test Item Value Reference Range Interpretation Comments SOURCE: (test code = Cervical/Endocervical 8001) SLIDES: (test code = 1 8011) LMP: (test code = 8021) SEE NOTE SPECIMEN ADEQUACY: (test (NOTE) code = 06742) INTERPRETATION: (test NILM/NO EPITH. code = 78239) ABNORMALITY;SEE BELOW OTHER COMMENTS: (test (NOTE) code = 8081) AUDIENCE DEVELOPMENT MANAGER: (test Yoselin Enrique CT (ASCP) code = 8101) LOCATION: (test code = (NOTE) 70378) CPT: (test code = 8140) (NOTE) PAP TEST, THINPREP, [id number] 00:00:00 Test Item Value Reference Range Interpretation Comments SOURCE: (test code = Cervical/Endocervical 8001) SLIDES: (test code = 1 8011) LMP: (test code = 8021) SEE NOTE SPECIMEN ADEQUACY: (test (NOTE) code = 57290) INTERPRETATION: (test NILM/NO EPITH. code = 86107) ABNORMALITY;SEE BELOW OTHER COMMENTS: (test (NOTE) code = 8081) AUDIENCE DEVELOPMENT MANAGER: (test Yoselin Enrique CT (ASCP) code = 8101) LOCATION: (test code = (NOTE) 44911) CPT: (test code = 8140) (NOTE) HPV HIGH RISK WITH GENOTYPE, [id number] 00:00:00 Test Item Value Reference Range Interpretation Comments HPV HIGH RISK INTERP (test code = NEGATIVE 85396) HPV 16 (test code = 51094) NEGATIVE HPV 18 (test code = 57034) NEGATIVE HPV, HR, OTHER GENOTYPES (test code NEGATIVE = 55637) HPV HIGH RISK WITH GENOTYPE, [id number] 00:00:00 Test Item Value Reference Range Interpretation Comments HPV HIGH RISK INTERP (test code = NEGATIVE 47300) HPV 16 (test code = 67905) NEGATIVE HPV 18 (test code = 37208) NEGATIVE HPV, HR, OTHER GENOTYPES (test code NEGATIVE = 62959) PAP TEST, THINPREP, [id number] 00:00:00 Test Item Value Reference Range Interpretation Comments SOURCE: (test code = Cervical/Endocervical 8001) SLIDES: (test code = 1 8011) LMP: (test code = 8021) SEE NOTE SPECIMEN ADEQUACY: (test (NOTE) code = 53719) INTERPRETATION: (test NILM/NO EPITH. code = 43154) ABNORMALITY;SEE BELOW OTHER COMMENTS: (test (NOTE) code = 8081) AUDIENCE DEVELOPMENT MANAGER: (test LIGIA Haile (ASCP) code = 8101) LOCATION: (test code = (NOTE) 99829) CPT: (test code = 8140) (NOTE) PAP TEST, THINPREP, [id number] 00:00:00 Test Item Value Reference Range Interpretation Comments SOURCE: (test code = Cervical/Endocervical 8001) SLIDES: (test code = 1 8011) LMP: (test code = 8021) SEE NOTE SPECIMEN ADEQUACY: (test (NOTE) code = 15238) INTERPRETATION: (test NILM/NO EPITH. code = 26469) ABNORMALITY;SEE BELOW OTHER COMMENTS: (test (NOTE) code = 8081) AUDIENCE DEVELOPMENT MANAGER: (test Yoselin Enrique CT (ASCP) code = 8101) LOCATION: (test code = (NOTE) 49185) CPT: (test code = 8140) (NOTE) HPV HIGH RISK WITH GENOTYPE, [id number] 00:00:00 Test Item Value Reference Range Interpretation Comments HPV HIGH RISK INTERP (test code = NEGATIVE 23742) HPV 16 (test code = 59153) NEGATIVE HPV 18 (test code = 97463) NEGATIVE HPV, HR, OTHER GENOTYPES (test code NEGATIVE = 84280) HPV HIGH RISK WITH GENOTYPE, [id number] 00:00:00 Test Item Value Reference Range Interpretation Comments HPV HIGH RISK INTERP (test code = NEGATIVE 46356) HPV 16 (test code = 55133) NEGATIVE HPV 18 (test code = 68185) NEGATIVE HPV, HR, OTHER GENOTYPES (test code NEGATIVE = 23407) PAP TEST, THINPREP, [id number] 00:00:00 Test Item Value Reference Range Interpretation Comments SOURCE: (test code = Cervical/Endocervical 8001) SLIDES: (test code = 1 8011) LMP: (test code = 8021) SEE NOTE SPECIMEN ADEQUACY: (test (NOTE) code = 71135) INTERPRETATION: (test NILM/NO EPITH. code = 89778) ABNORMALITY;SEE BELOW OTHER COMMENTS: (test (NOTE) code = 8081) AUDIENCE DEVELOPMENT MANAGER: (test Yoselin Enrique CT (ASCP) code = 8101) LOCATION: (test code = (NOTE) 03499) CPT: (test code = 8140) (NOTE) PAP TEST, THINPREP, [id number] 00:00:00 Test Item Value Reference Range Interpretation Comments SOURCE: (test code = Cervical/Endocervical 8001) SLIDES: (test code = 1 8011) LMP: (test code = 8021) SEE NOTE SPECIMEN ADEQUACY: (test (NOTE) code = 43556) INTERPRETATION: (test NILM/NO EPITH. code = 19303) ABNORMALITY;SEE BELOW OTHER COMMENTS: (test (NOTE) code = 8081) AUDIENCE DEVELOPMENT MANAGER: (test Yoselin Enrique CT (ASCP) code = 8101) LOCATION: (test code = (NOTE) 93051) CPT: (test code = 8140) (NOTE) HPV HIGH RISK WITH GENOTYPE, [id number] 00:00:00 Test Item Value Reference Range Interpretation Comments HPV HIGH RISK INTERP (test code = NEGATIVE 96042) HPV 16 (test code = 42518) NEGATIVE HPV 18 (test code = 83969) NEGATIVE HPV, HR, OTHER GENOTYPES (test code NEGATIVE = 03586) HPV HIGH RISK WITH GENOTYPE, [id number] 00:00:00 Test Item Value Reference Range Interpretation Comments HPV HIGH RISK INTERP (test code = NEGATIVE 45567) HPV 16 (test code = 50890) NEGATIVE HPV 18 (test code = 58708) NEGATIVE HPV, HR, OTHER GENOTYPES (test code NEGATIVE = 38298) SARS-CoV-2 (COVID-19) by RT-PCR (HIGH RISK)2019-09-12 00:00:00 Test Item Value Reference Range Interpretation Comments SARS-CoV-2 INTERPRETATION (test NEGATIVE code = 67209) SOURCE (test code = 63509) NOT SPECIFIED SARS-CoV-2 (COVID-19) by RT-PCR (HIGH RISK)2019-09-12 00:00:00 Test Item Value Reference Range Interpretation Comments SARS-CoV-2 INTERPRETATION (test NEGATIVE code = 10560) SOURCE (test code = 29731) NOT SPECIFIED SARS-CoV-2 (COVID-19) by RT-PCR (HIGH RISK)2019-09-12 00:00:00 Test Item Value Reference Range Interpretation Comments SARS-CoV-2 INTERPRETATION (test NEGATIVE code = 25948) SOURCE (test code = 79548) NOT SPECIFIED SARS-CoV-2 (COVID-19) by RT-PCR (HIGH RISK)2019-09-12 00:00:00 Test Item Value Reference Range Interpretation Comments SARS-CoV-2 INTERPRETATION (test NEGATIVE code = 21618) SOURCE (test code = 78068) NOT SPECIFIED SARS-CoV-2 (COVID-19) by RT-PCR (HIGH RISK)2019-09-12 00:00:00 Test Item Value Reference Range Interpretation Comments SARS-CoV-2 INTERPRETATION (test NEGATIVE code = 59067) SOURCE (test code = 72001) NOT SPECIFIED SARS-CoV-2 (COVID-19) by RT-PCR (HIGH RISK)2019-09-12 00:00:00 Test Item Value Reference Range Interpretation Comments SARS-CoV-2 INTERPRETATION (test NEGATIVE code = 90282) SOURCE (test code = 34509) NOT SPECIFIED SARS-CoV-2 (COVID-19) by RT-PCR (HIGH RISK)2019-09-12 00:00:00 Test Item Value Reference Range Interpretation Comments SARS-CoV-2 INTERPRETATION (test NEGATIVE code = 70020) SOURCE (test code = 35025) NOT SPECIFIED SARS-CoV-2 (COVID-19) by RT-PCR (HIGH RISK)2019-09-12 00:00:00 Test Item Value Reference Range Interpretation Comments SARS-CoV-2 INTERPRETATION (test NEGATIVE code = 76149) SOURCE (test code = 92071) NOT SPECIFIED SARS-CoV-2 (COVID-19) by RT-PCR (HIGH RISK)2019-09-12 00:00:00 Test Item Value Reference Range Interpretation Comments SARS-CoV-2 INTERPRETATION (test NEGATIVE code = 33262) SOURCE (test code = 12734) NOT SPECIFIED SARS-CoV-2 (COVID-19) by RT-PCR (HIGH RISK)2019-09-12 00:00:00 Test Item Value Reference Range Interpretation Comments SARS-CoV-2 INTERPRETATION (test NEGATIVE code = 14606) SOURCE (test code = 44726) NOT SPECIFIED SARS-CoV-2 (COVID-19) by RT-PCR (HIGH RISK)2019-09-12 00:00:00 Test Item Value Reference Range Interpretation Comments SARS-CoV-2 INTERPRETATION (test NEGATIVE code = 49934) SOURCE (test code = 96018) NOT SPECIFIED SARS-CoV-2 (COVID-19) by RT-PCR (HIGH RISK)2019-09-12 00:00:00 Test Item Value Reference Range Interpretation Comments SARS-CoV-2 INTERPRETATION (test NEGATIVE code = 12622) SOURCE (test code = 02925) NOT SPECIFIED SARS-CoV-2 (COVID-19) by RT-PCR (HIGH RISK)2019-09-12 00:00:00 Test Item Value Reference Range Interpretation Comments SARS-CoV-2 INTERPRETATION (test NEGATIVE code = 77546) SOURCE (test code = 29905) NOT SPECIFIED SARS-CoV-2 (COVID-19) by RT-PCR (HIGH RISK)2019-09-12 00:00:00 Test Item Value Reference Range Interpretation Comments SARS-CoV-2 INTERPRETATION (test NEGATIVE code = 55992) SOURCE (test code = 80869) NOT SPECIFIED SARS-CoV-2 (COVID-19) by RT-PCR (HIGH RISK)2019-09-12 00:00:00 Test Item Value Reference Range Interpretation Comments SARS-CoV-2 INTERPRETATION (test NEGATIVE code = 93192) SOURCE (test code = 89841) NOT SPECIFIED SARS-CoV-2 (COVID-19) by RT-PCR (HIGH RISK)2019-09-12 00:00:00 Test Item Value Reference Range Interpretation Comments SARS-CoV-2 INTERPRETATION (test NEGATIVE code = 33807) SOURCE (test code = 89750) NOT SPECIFIED SARS-CoV-2 (COVID-19) by RT-PCR (HIGH RISK)2019-09-12 00:00:00 Test Item Value Reference Range Interpretation Comments SARS-CoV-2 INTERPRETATION (test NEGATIVE code = 57214) SOURCE (test code = 23345) NOT SPECIFIED SARS-CoV-2 (COVID-19) by RT-PCR (HIGH RISK)2019-09-12 00:00:00 Test Item Value Reference Range Interpretation Comments SARS-CoV-2 INTERPRETATION (test NEGATIVE code = 25642) SOURCE (test code = 50501) NOT SPECIFIED SARS-CoV-2 (COVID-19) by RT-PCR (HIGH RISK)2019-09-12 00:00:00 Test Item Value Reference Range Interpretation Comments SARS-CoV-2 INTERPRETATION (test NEGATIVE code = 37552) SOURCE (test code = 06322) NOT SPECIFIED SARS-CoV-2 (COVID-19) by RT-PCR (HIGH RISK)2019-09-12 00:00:00 Test Item Value Reference Range Interpretation Comments SARS-CoV-2 INTERPRETATION (test NEGATIVE code = 45477) SOURCE (test code = 27681) NOT SPECIFIED SARS-CoV-2 (COVID-19) by RT-PCR (HIGH RISK)2019-09-12 00:00:00 Test Item Value Reference Range Interpretation Comments SARS-CoV-2 INTERPRETATION (test NEGATIVE code = 86674) SOURCE (test code = 52422) NOT SPECIFIED SARS-CoV-2 (COVID-19) by RT-PCR (HIGH RISK)2019-09-12 00:00:00 Test Item Value Reference Range Interpretation Comments SARS-CoV-2 INTERPRETATION (test NEGATIVE code = 48372) SOURCE (test code = 80211) NOT SPECIFIED SARS-CoV-2 (COVID-19) by RT-PCR (HIGH RISK)2019-09-12 00:00:00 Test Item Value Reference Range Interpretation Comments SARS-CoV-2 INTERPRETATION (test NEGATIVE code = 91729) SOURCE (test code = 82519) NOT SPECIFIED SARS-CoV-2 (COVID-19) by RT-PCR (HIGH RISK)2019-09-12 00:00:00 Test Item Value Reference Range Interpretation Comments SARS-CoV-2 INTERPRETATION (test NEGATIVE code = 25886) SOURCE (test code = 61538) NOT SPECIFIED SARS-CoV-2 (COVID-19) by RT-PCR (HIGH RISK)2019-09-12 00:00:00 Test Item Value Reference Range Interpretation Comments SARS-CoV-2 INTERPRETATION (test NEGATIVE code = 09676) SOURCE (test code = 34737) NOT SPECIFIED"
[2022-05-01 17:32] LABS: Absolute Lymphocytes (CBC) 1.4 K/uL (0.7-4.9); Hematocrit 45.8 % (36.0-45.0); MPV 7.7 fL (7.6-11.3); RBC Red Blood Cell Count 5.09 M/uL (3.86-4.86)
[2022-05-01 17:35] LABS: Protime INR 1.1
[2022-05-01 17:43] LABS: SARS-CoV-2 Antigen Rapid Res Negative (Negative)
[2022-05-01] MEDS ORDERED: LORAZEPAM 1 MG TABLET ONE (17:51)
[2022-05-01] MEDS ORDERED: MORPHINE 2 MG/ML SYR ONE (17:51)
[2022-05-01 17:56] LABS: Magnesium 2.2 mg/dL (1.6-2.4); Potassium 3.9 mmol/L (3.5-5.1)
--- NOTE | 2022-05-01 17:59 | RAD REPORT ---
EXAM DESCRIPTION: RAD - Chest Single View - 05/01/2022 5:46 pm CLINICAL HISTORY: CHEST PAIN Chest pain. COMPARISON: Chest Single View dated 04/03/2022; Chest Single View dated 03/26/2022; Chest Single View dated 03/05/2022; Chest Pa And Lat (2 Views) dated 02/28/2022 FINDINGS: Portable technique limits examination quality. Mild pulmonary edema is noted. The heart is moderately enlarged in size. No displaced fractures. IMPRESSION: Mild CHF.
[2022-05-01 18:01] LABS: Troponin High Sensitivity 134.8 pg/mL (<58.9)
--- NOTE | 2022-05-01 18:20 | ER ---
Nurse's Notes [facility] Name: Jessica Wong Age: 56 yrs Sex: Female : 1965 Arrival Date: 05/01/2022 Time: 16:28 Bed 20 Private MD: Diagnosis: Chest pain, unspecified Presentation: 05/01 16:39 Chief complaint: Patient states: "I'm not sure if I am having a major panic attack or aa5 what because I've been having them but I also had heart stents a few weeks ago by Dr. Palumbo". Pt c/o chest pain since this morning and reports BP of 198/102 today. 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 Onset of symptoms was May 01, 2022. 16:39 Acuity: GUADALUPE 2 aa5 16:39 Coronavirus screen: At this time, the client does not indicate any symptoms associated aa5 with coronavirus-19. Ebola Screen: Patient denies travel to an Ebola-affected area in the 21 days before illness onset. Initial Sepsis Screen: Does the patient meet any 2 criteria? No. Patient's initial sepsis screen is negative. Does the patient have a suspected source of infection? No. Patient's initial sepsis screen is negative. Risk Assessment: Do you want to hurt yourself or someone else? Patient reports no desire to harm self or others. 16:39 Method Of Arrival: Ambulatory aa5 Triage Assessment: 18:06 General: Appears in no apparent distress. Behavior is anxious. Pain: Complains of pain ap3 in chest. Neuro: Level of Consciousness is awake, alert, obeys commands, Oriented to person, place, time, situation. Cardiovascular: Patient's skin is warm and dry. Respiratory: Airway is patent Respiratory effort is even, unlabored, Respiratory pattern is regular, symmetrical. CAMPUS MONITOR: 18:07 LMP N/A - Irregular menses ap3 Historical: - Allergies: 16:30 Oxycodone HCl; aa5 16:30 PENICILLINS; aa5 - PMHx: 16:30 Bipolar disorder; Cancer; Hodgkin's; CHF; Heart Murmur; aa5 - PSHx: 16:30 cardiac stents; aa5 - Immunization history:: Adult Immunizations unknown. - Social history:: Smoking status: Patient reports the use of cigarette tobacco products, smokes one pack cigarettes per day. Screenin:06 [facility] ED Fall Risk Assessment (Adult) History of falling in the last 3 months, ap3 including since admission No falls in past 3 months (0 pts). Abuse screen: Denies threats or abuse. Nutritional screening: No deficits noted. Tuberculosis screening: No symptoms or risk factors identified. Assessment: 18:07 Pain: Pain does not radiate. Pain began gradually, 1 day ago. Cardiovascular: Reports ap3 chest pain. 05/02 10:50 Reassessment: attempted to call report. vg1 Vital Signs: 05/01 16:42 BP 154 / 93; Pulse 77; Resp 24 S; Temp 98.0(TE); Pulse Ox 97% on R/A; Weight 99.79 kg aa5 (R); Height 5 ft. 2 in. (157.48 cm) (R); Pain 5/10; 18:06 Pulse 72; Pulse Ox 96% on R/A; ap3 21:05 BP 130 / 53; Pulse 66; Resp 22; Pulse Ox 95% on R/A; lg3 16:42 Body Mass Index 40.24 (99.79 kg, 157.48 cm) aa5 ED Course: 16:28 Patient arrived in ED. am2 16:33 Elias Delgado PA is PHCP. cp 16:33 Rex Mendoza MD is Attending Physician. cp 16:38 Arm band placed on. aa5 16:41 Triage completed. aa5 17:40 Gianna Tang, CALI is Primary Nurse. ap3 17:48 XRAY Chest (1 view) In Process Unspecified. EDMS 18:07 Patient has correct armband on for positive identification. Bed in low position. Call ap3 light in reach. Side rails up X 1. campus monitor on. Pulse ox on. NIBP on. 18:07 No provider procedures requiring assistance completed. ap3 18:07 Patient maintains SpO2 saturation greater than 95% on room air. ap3 18:19 Gutierrez Major FNP-C is Hospitalizing Provider. cp 19:01 Rodri Ku MD is Hospitalizing Provider. la1 19:22 Primary Nurse role handed off by Gianna Tang, RN mw2 20:10 DD Sent. lg3 21:06 Patient admitted, IV remains in place. lg3 Administered Medications: 18:05 Drug: Ativan (LORazepam) 1 mg Route: PO; ap3 20:11 Follow up: Response: No adverse reaction; RASS: Alert and Calm (0) lg3 18:05 Drug: morphine 2 mg Route: IVP; Infused Over: 4 mins; Site: left hand; ap3 20:11 Follow up: Response: No adverse reaction; Pain is decreased lg3 18:31 Drug: Aspirin Chewable Tablet 162 mg Route: PO; ap3 20:11 Follow up: Response: No adverse reaction lg3 Medication: 18:07 VIS not applicable for this client. ap3 Outcome: 18:19 Decision to Hospitalize by Provider. cp 21:06 Admitted to ER Hold. Please see [facility] for further documentation. lg3 21:06 Condition: stable 21:06 Instructed on the need for admit. 05/02 12:03 Patient left the ED. vg1 Signatures: Dispatcher [employer] EDMS Sammi Calhoun, CALI RN aa5 Gutierrez Major, SCOUT LEASER-C SCOUT LEASER-Cla1 Elias Delgado PA PA cp Gianna Acosta amGianna Tong RN RN ap3 Berto Barton mw2 Medina Thakkar RN RN lg3 Payton Lee, RN RN vg1 Corrections: (The following items were deleted from the chart) 05/01 16:43 16:39 Chief complaint: Patient states: "I'm not sure if I am having a major panic aa5 attack or what because I've been having them but I also had heart stents a few weeks ago by Dr. Palmubo". Pt c/o chest pain since this morning and reports BP of 198/102 today. aa5
--- NOTE | 2022-05-01 18:20 | EDPHYS ---
Physician Documentation [facility] Name: Jessica Wong Age: 56 yrs Sex: Female : 1965 Arrival Date: 05/01/2022 Time: 16:28 Bed 20 Private MD: ED Physician Rex Mendoza HPI: 05/01 16:50 This 56 yrs old Female presents to ER via Ambulatory with complaints of Chest Pain. cp 16:50 The patient or guardian reports chest pain that is located primarily in the substernal cp area. 16:50 Onset: this morning. The pain does not radiate. cp 16:50 The chest pain is described as a pressure. Duration: The patient or guardian reports a cp single episode, that is still ongoing. 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 - Social history:: Smoking status: Patient reports the use of cigarette tobacco products, smokes one pack cigarettes per day. ROS: 16:55 Constitutional: Negative for body aches, chills, fever, poor PO intake. cp 16:55 Eyes: Negative for injury, pain, redness, and discharge. cp 16:55 ENT: Negative for drainage from ear(s), ear pain, sore throat, difficulty swallowing, difficulty handling secretions. 16:55 Cardiovascular: Positive for chest pain, Negative for edema, palpitations. 16:55 Respiratory: Negative for cough, shortness of breath, wheezing. 16:55 Abdomen/GI: Negative for abdominal pain, nausea, vomiting, and diarrhea, constipation. 16:55 Back: Positive for radiated pain. 16:55 Neuro: Negative for altered mental status, dizziness, headache, numbness, syncope, weakness. 16:55 All other systems are negative. Exam: 16:53 ECG was reviewed by the Attending Physician. cp 17:00 Constitutional: The patient appears in no acute distress, alert, awake, cp non-diaphoretic, non-toxic, well developed, well nourished, anxious, overweight 17:00 Head/Face: Normocephalic, atraumatic. cp 17:00 Eyes: Periorbital structures: appear normal, Conjunctiva: normal, no exudate, no injection, Sclera: no appreciated abnormality, Lids and lashes: appear normal, bilaterally. 17:00 ENT: External ear(s): are unremarkable, Nose: is normal, Mouth: Lips: moist, Oral mucosa: pink and intact, moist, Posterior pharynx: is normal, airway is patent, no erythema, no exudate. 17:00 Neck: ROM/movement: is normal, is supple, without pain, no range of motions limitations. 17:00 Chest/axilla: Inspection: normal. 17:00 Cardiovascular: Rate: normal, Rhythm: regular, Edema: is not appreciated, JVD: is not appreciated. 17:00 Respiratory: the patient does not display signs of respiratory distress, Respirations: normal, no use of accessory muscles, no retractions, labored breathing, is not present, Breath sounds: are clear throughout, no decreased breath sounds, no stridor, no wheezing. 17:00 Abdomen/GI: Exam negative for discomfort, distension, guarding, Inspection: abdomen appears normal. 17:00 Back: ROM is normal. 17:00 Neuro: Orientation: to person, place \T\ time. Mentation: is normal, Motor: moves all fours, strength is normal, Sensation: is normal. Vital Signs: 16:42 BP 154 / 93; Pulse 77; Resp 24 S; Temp 98.0(TE); Pulse Ox 97% on R/A; Weight 99.79 kg aa5 (R); Height 5 ft. 2 in. (157.48 cm) (R); Pain 5/10; 18:06 Pulse 72; Pulse Ox 96% on R/A; ap3 21:05 BP 130 / 53; Pulse 66; Resp 22; Pulse Ox 95% on R/A; lg3 16:42 Body Mass Index 40.24 (99.79 kg, 157.48 cm) aa5 MDM: 16:39 Patient medically screened. cp 18:12 Data reviewed: vital signs, nurses notes, lab test result(s), EKG, radiologic studies, cp plain films. Consideration of Admission/Observation Patient was admitted/placed on observation. Management of patient was discussed with the following: Cooling Machine Operator: DR Palumbo who recommends observation and admit to hospitalist. 18:20 The patient was given aspirin in the Emergency Department. 18:20 Differential diagnosis: abnormal EKG, acute myocardial infarction, pleurisy, pneumonia, cp pneumothorax, pulmonary embolus, stable angina, unstable angina. Independent interpretation of the following test(s) in the Emergency Department EKG: See my EKG interpretation above. Test considered but Not performed: CT: chest. Care significantly affected by the following chronic conditions: Congestive Heart Failure. Counseling: I had a detailed discussion with the patient and/or guardian regarding: the historical points, exam findings, and any diagnostic results supporting the discharge/admit diagnosis, lab results, radiology results, the need for further work-up and treatment in the hospital. 05/01 16:43 Order name: Basic Metabolic Panel; Complete Time: 18:05 05/01 18:18 Interpretation: Normal except: CL 111; CA 10.9. 05/01 16:43 Order name: CBC with Diff; Complete Time: 18:05 05/01 18:18 Interpretation: Normal except: RBC 5.09; HGB 15.6; HCT 45.8; HARJIT% 78.3; LYM% 14.0. 05/01 16:43 Order name: Magnesium; Complete Time: 18:05 05/01 16:43 Order name: NT PRO-BNP; Complete Time: 18:05 05/01 18:18 Interpretation: NT PRO-BNP 296; Reviewed. 05/01 16:43 Order name: PT-INR; Complete Time: 18:05 05/01 16:43 Order name: Troponin HS; Complete Time: 18:05 05/01 18:18 Interpretation: Abnormal: Troponin HS 134.8. 05/01 16:43 Order name: XRAY Chest (1 view); Complete Time: 18:05 05/01 17:22 Order name: SARS RAPID; Complete Time: 18:05 cp 05/01 19:00 Order name: DD; Complete Time: 20:34 la1 05/01 23:37 Order name: Troponin High Sensitivity EDMI 05/02 03:02 Order name: CBC with Automated Diff EDMS 05/02 03:39 Order name: [place] EDMS 05/02 04:06 Order name: Basic Metabolic Panel EDMS 05/02 04:06 Order name: Troponin High Sensitivity EDMS 05/01 16:43 Order name: EKG; Complete Time: 16:44 05/01 16:43 Order name: Cardiac monitoring; Complete Time: 17:40 05/01 16:43 Order name: EKG - Nurse/Tech; Complete Time: 16:51 05/01 16:43 Order name: IV Saline Lock; Complete Time: 17:40 05/01 16:43 Order name: Labs collected and sent; Complete Time: 17:40 05/01 16:43 Order name: O2 Per Protocol; Complete Time: 17:40 05/01 16:43 Order name: O2 Sat Monitoring; Complete Time: 17:40 cp EC:53 Rate is 76 beats/min. Rhythm is regular. OR interval is normal. QRS interval is cp prolonged at 158 msec. QT interval is normal. T waves are Inverted in leads III, aVR. Interpreted by me. Reviewed by me. Administered Medications: 18:05 Drug: Ativan (LORazepam) 1 mg Route: PO; ap3 20:11 Follow up: Response: No adverse reaction; RASS: Alert and Calm (0) lg3 18:05 Drug: morphine 2 mg Route: IVP; Infused Over: 4 mins; Site: left hand; ap3 20:11 Follow up: Response: No adverse reaction; Pain is decreased lg3 18:31 Drug: Aspirin Chewable Tablet 162 mg Route: PO; ap3 20:11 Follow up: Response: No adverse reaction lg3 Disposition Summary: 05/01/22 18:19 Hospitalization Ordered Hospitalization Status: Observation cp Condition: Stable cp Problem: new cp Symptoms: have improved cp Bed/Room Type: Standard cp Provider: Rodri Ku(05/01/22 19:01) la1 Location: Telemetry/MedSurg (observation)(05/02/22 10:21) bd Room Assignment: 407(05/02/22 10:21) bd Diagnosis - Chest pain, unspecified cp Forms: - Medication Reconciliation Form cp - SBAR form cp Signatures: Dispatcher [employer] EDMI Christopher Yolette Sanchez RN RN mw Nieto, Roman, MD MD rn Calderon, Audri, RN RN aa5 Gutierrez Major, ELIER-C HEAD OF STRATEGY-Cla1 Page, ALVIN Griffin cp, Amanda RN RN ap3 Medina Thakkar RN lg3 Corrections: (The following items were deleted from the chart) : 18:19 Gutierrez Major cp la1 19:15 18:19 Telemetry/MedSurg (observation) cp mw :15 18:19 cp mw 05/02 10:21 05/01 19:15 BR ER HOLD mw bd 05/02 10:05/01 19:15 ERHOLD- mw bd 05/03 06:11 06:09 The patient or guardian reports chest pain that is located primarily in the cp substernal area, cp
[2022-05-01] MEDS ORDERED: ASPIRIN 81 MG CHEWABLE TABLET ONE (18:30)
--- NOTE | 2022-05-01 19:11 | P.HP ---
Certification for Inpatient Patient admitted to: Observation With expected LOS: <2 Midnights Patient will require the following post-hospital care: None Practitioner: I am a practitioner with admitting privileges, knowledge of patient current condition, hospital course, and medical plan of care. Services: Services provided to patient in accordance with Admission requirements found in Title 42 Section 412.3 of the Code of Federal Regulations <Gutierrez Major - Last Filed: 05/01/22 19:07> Patient History Date of Service: 05/01/22 Reason for admission: Chest Pain History of Present Illness: 56-year-old female with history of CAD, chronic diastolic congestive heart failure, BPD, anxiety presents to the emergency department with complaints of chest pain. She reports that she awoke from sleep at 1500 with onset of chest pressure, anxiety, shortness of breath. She reports frequent episodes over the course of the last 3 weeks ever since he was discharged from the hospital similar to this, she reports she has been struggling with her BPD and anxiety on outpatient basis. She was evaluated here in the emergency department her initial high-sensitivity troponin is 134.8. She was seen and admitted on 03/26/2020 for unstable angina at that time she had an echocardiogram and a heart catheterization which was performed on 03/30/2022 which showed severe proximal LAD stenosis status post successful PCI, patent ramus intermedius and RCA stents, borderline elevated LVEDP. She returned to the hospital again on 04/03/2022 with complaints of chest pain and had moderately elevated troponins in the 600 range, she had a repeat heart catheterization at that time which showed patent stents with mild coronary artery disease elsewhere. Given elevated troponin ED provider discussed case with cardiology who recommends observation, trending of troponins. - Past Medical/Surgical History Diabetic: No -: Bipolar Disorder -: Atrial Fibrillation -: Diastolic CHF -: Hyperlipidemia -: Hodgkin's Lymphoma (1996) -: COPD -: x 2 -: Appendectomy Psychosocial/ Personal History: Patient lives at home. She has a son. - Social History Smoking Status: Current every day smoker Counseled patient to stop smoking for: less than 10 minutes Alcohol use: No CD- Drugs: No Caffeine use: Yes Place of Residence: Home <Gutierrez Major - Last Filed: 05/01/22 19:07> Date of Service: 05/02/22 <Rodri Ku - Last Filed: 05/02/22 15:03> Allergies codeine Allergy (Verified 03/28/22 23:12) Unknown oxycodone Allergy (Verified 03/28/22 23:12) Hives/Rash Penicillins Adverse Reaction (Verified 03/28/22 23:12) yeast infection Home Medications: Albuterol Sulfate [Proair Hfa] 1 puff IH Q4HP PRN 03/05/22 Aspirin [Aspirin EC 81 MG] 162 mg PO DAILY #60 tab 03/05/22 Clopidogrel Bisulfate [Plavix*] 75 mg PO DAILY 03/05/22 Ipratropium/Albuterol Sulfate [Iprat-Albut 0.5-3(2.5) mg/3 ml] 1 puff IH TID 03/05/22 Levothyroxine Sodium [Levothyroxine] 75 mcg PO DAILY 03/05/22 [place] Carbonate [[place] Carbonate ER] 450 mg PO DAILY 03/05/22 Metoprolol Succinate [Toprol Xl*] 100 mg PO DAILY 03/05/22 hydroCHLOROthiazide [Hydrochlorothiazide] 25 mg PO DAILY 03/05/22 Atorvastatin Calcium 1 tab PO DAILY 05/02/22 Cetirizine HCl 1 tab PO DAILY PRN 05/02/22 LORazepam [Ativan*] 1 tab PO TID PRN 05/02/22 [place] Carbonate [Lithotabs *] 1 tab PO DAILY 05/02/22 Nitroglycerin 1 tab SL SEECOM 05/02/22 Review of Systems 10-point ROS is otherwise unremarkable Cardiovascular: Chest Pain Neurological: Other (anxiety) <Gutierrez Major - Last Filed: 05/01/22 19:07> Physical Examination - Physical Exam General: Alert, In no apparent distress, Oriented x3 HEENT: Atraumatic, PERRLA, Mucous membr. moist/pink, EOMI, Sclerae nonicteric Neck: Supple, 2+ carotid pulse no bruit, No LAD, Without JVD or thyroid abnormality Respiratory: Clear to auscultation bilaterally, Normal air movement Cardiovascular: Regular rate/rhythm, Normal S1 S2 Capillary refill: <2 Seconds Gastrointestinal: Normal bowel sounds, No tenderness Musculoskeletal: No tenderness Integumentary: No rashes Neurological: Normal speech, Normal strength at 5/5 x4 extr, Normal tone, Normal affect - Studies Laboratory Data (last 24 hrs) 05/01/22 17:20: PT 12.1, INR 1.10 05/01/22 17:20: WBC 9.80, Hgb 15.6 H, Hct 45.8 H, Plt Count 260 05/01/22 17:20: Sodium 139, Potassium 3.9, BUN 9, Creatinine 0.65, Glucose 97, Magnesium 2.2 <Gutierrez Major - Last Filed: 05/01/22 19:07> - Studies Laboratory Data (last 24 hrs) 05/01/22 17:20: PT 12.1, INR 1.10 05/01/22 17:20: WBC 9.80, Hgb 15.6 H, Hct 45.8 H, Plt Count 260 05/01/22 17:20: Sodium 139, Potassium 3.9, BUN 9, Creatinine 0.65, Glucose 97, Magnesium 2.2 <Rodri Ku - Last Filed: 05/02/22 15:03> Assessment and Plan - Plan Assessment: Chest pain rule out ACShistory CAD with recent cath/stents Chronic diastolic congestive heart failure BPD/anxiety Plan: Chest pain rule out ACShistory CAD with recent cath/stents: Trend troponins, monitor on telemetry, aspirin, statin, beta-sweetie, Plavix continued. She reports she has been compliant with aspirin and Plavix. Appreciate input from cardiology. We will also obtain D-dimer to rule out pulmonary embolism. Chronic diastolic congestive heart failure: Appears euvolemic, takes HCTZ at home, continue home medication. BPD/anxiety: Continue lithium, as needed Ativan. DVT PPX:Lovenox Code status:Full Discharge Plan: Home Plan to discharge in: 24 Hours - Advance Directives Does patient have a Living Will: No Does patient have a Durable POA for Healthcare: No - Code Status/Comfort Care Code Status Assessed: Yes (Full code) Critical Care: No Time Spent Managing Pts Care (In Minutes): 55 <Gutierrez Major - Last Filed: 05/01/22 19:07> Physician Review: Patient Assessed, Agree with Above Assessment and Plan <Rodri Ku - Last Filed: 05/02/22 15:03>
[2022-05-01] MEDS ORDERED: ONDANSETRON 4 MG/2 ML VIAL IV PRN (22:49)
[2022-05-01] MEDS ORDERED: LORAZEPAM 0.5 MG TABLET PO PRN (22:49)
[2022-05-01] MEDS ORDERED: ATORVASTATIN 20 MG TAB PO SCH (22:49)
[2022-05-01] MEDS ORDERED: ATORVASTATIN 20 MG TAB ONE (22:56)
[2022-05-01 23:15] VITALS: O2SAT 96; BMI 40.2
[2022-05-02 02:58] LABS: Absolute Lymphocytes (CBC) 2.1 K/uL (0.7-4.9); Hematocrit 42.9 % (36.0-45.0); Lymphocytes % 26.3 % (15.3-44.8); MCV 90.9 fL (80-100); MPV 7.9 fL (7.6-11.3); RBC Red Blood Cell Count 4.72 M/uL (3.86-4.86)
[2022-05-02 03:40] LABS: Potassium 3.7 mmol/L (3.5-5.1)
[2022-05-02 04:06] LABS: Troponin High Sensitivity 130.5 pg/mL (<58.9)
[2022-05-02] MEDS: LITHIUM CARBONATE 300 MG CAP PO SCH ×2 (05:00→09:00)
[2022-05-02] MEDS ORDERED: LORAZEPAM 0.5 MG TABLET ONE (05:08)
[2022-05-02] MEDS ORDERED: LITHIUM CARBONATE 300 MG CAP ONE (05:10)
[2022-05-02] MEDS ORDERED: LEVOTHYROXINE SOD 0.075 MG TAB ONE (05:16)
[2022-05-02] MEDS ORDERED: METOPROLOL XL 100 MG TAB PO SCH ×2 (06:00→21:00)
[2022-05-02] MEDS ORDERED: LEVOTHYROXINE SOD 0.075 MG TAB PO SCH (06:30)
[2022-05-02] MEDS ORDERED: INFLUENZA VACCINE (for 6+ mo) 0.5 ML DOSE IMVAC ONE (08:00)
[2022-05-02] MEDS ORDERED: PNEUMOCOCCAL VACCINE 0.5 ML IMVAC ONE (08:00)
[2022-05-02] MEDS ORDERED: CLOPIDOGREL 75 MG TABLET PO SCH (09:00)
[2022-05-02] MEDS ORDERED: ENOXAPARIN 40 MG/0.4 ML SQ SCH (09:00)
[2022-05-02] MEDS ORDERED: ASPIRIN EC 81 MG TAB PO SCH (09:00)
[2022-05-02] MEDS ORDERED: ASPIRIN EC 81 MG TAB PO ONE (09:09)
[2022-05-02] MEDS ORDERED: ENOXAPARIN 40 MG/0.4 ML SQ ONE (09:10)
[2022-05-02] MEDS ORDERED: CLOPIDOGREL 75 MG TABLET ONE (09:10)
[2022-05-02 12:21] VITALS: BP 130/60; TEMP 98.1
--- NOTE | 2022-05-02 15:10 | P.DS ---
Admission Date: 05/01/22 Discharge Date: 05/02/22 Disposition: ROUTINE DISCHARGE Discharge Condition: GOOD Reason for Admission: Chest Pain Consultations: 1. Cardiology Hospital Course: DIAGNOSES: # Suspect Type II Non-ST Segment Elevation Myocardial Infarction (Demand Ischemia) # Coronary Artery Disease s/p PCI # Chronic Diastolic Congestive Heart Failure # Bipolar Disorder # Generalized Anxiety Disorder with Panic Attacks # Morbid Obesity - BMI 40.2 kg/m2 HOSPITAL COURSE: Ms. Jessica Wong is a 56 year old female with a past medical history signi ficant for coronary artery disease s/p PCI, diastolic congestive heart failure, bipolar disorder, and generalized anxiety disorder who was admitted to the [facility] on 05/01/2022 for chest discomfort. She was admitted to the Medicine service. Her EKG was without STEMI criteria. Her troponin trend was 134.8 -> 123.4 -> 130.5. Her d-dimer was 219. Cardiology was consulted, and she was evaluated by Dr. Palumbo. He has evaluated her and cleared her for discharge with outpatient follow-up. At the time of discharge, she was chest pain-free. She denied any palpitations or shortness of breath. On 05/02/2022, she was seen on rounds and deemed medically stable for discharge. She was discharged with instructions to schedule follow-up appointments with her PCP (ALVIN Mejia), with Cardiology (Dr. Palumbo), and with Psychiatry (Dr. Kan). She was given the opportunity to ask questions and reported no further questions. Furthermore, all questions were answered to the best of my ability. A copy of this discharge summary will be sent to the above providers to facilitate continuity of care. Today, I personally spent 25 minutes on her case, of which greater than 50% of t he time was spent in patient education, counseling, and coordination of care as described above. Vital Signs/Physical Exam: Temp Pulse Resp BP Pulse Ox 98.1 F 72 16 130/60 96 05/02/22 12:00 05/02/22 12:00 05/02/22 12:00 05/02/22 12:05/02/22 12:00 General: Alert, In no apparent distress, Oriented x3 HEENT: Atraumatic, Mucous membr. moist/pink, EOMI, Sclerae nonicteric Respiratory: Clear to auscultation bilaterally, Normal air movement Cardiovascular: No edema, Regular rate/rhythm, No murmurs Gastrointestinal: Normal bowel sounds, Soft and benign, Non-distended, No tenderness, No rebound, No guarding Musculoskeletal: No clubbing Integumentary: No rashes Neurological: Normal speech, Normal affect Laboratory Data at Discharge: WBC 8.10 K/uL (4.3-10.9) 05/02/22 02:21 Hgb 14.4 g/dL (12.0-15.0) 05/02/22 02:21 Hct 42.9 % (36.0-45.0) 05/02/22 02:21 Plt Count 234 K/uL (152-406) 05/02/22 02:21 PT 12.1 SECONDS (9.5-12.5) 05/01/22 17:20 INR 1.10 05/01/22 17:20 Sodium 139 mmol/L (136-145) 05/02/22 02:21 Potassium 3.7 mmol/L (3.5-5.1) 05/02/22 02:21 BUN 9 mg/dL (7-18) 05/02/22 02:21 Creatinine 0.61 mg/dL (0.55-1.02) 05/02/22 02:21 Glucose 100 mg/dL (74-106) 05/02/22 02:21 Magnesium 2.2 mg/dL (1.6-2.4) 05/01/22 17:20 Home Medications: Albuterol Sulfate [Proair Hfa] 1 puff IH Q4HP PRN 03/05/22 Aspirin [Aspirin EC 81 MG] 162 mg PO DAILY #60 tab 03/05/22 Clopidogrel Bisulfate [Plavix*] 75 mg PO DAILY 03/05/22 Ipratropium/Albuterol Sulfate [Iprat-Albut 0.5-3(2.5) mg/3 ml] 1 puff IH TID 03/05/22 Levothyroxine Sodium [Levothyroxine] 75 mcg PO DAILY 03/05/22 [place] Carbonate [[place] Carbonate ER] 450 mg PO DAILY 03/05/22 Metoprolol Succinate [Toprol Xl*] 100 mg PO DAILY 03/05/22 hydroCHLOROthiazide [Hydrochlorothiazide] 25 mg PO DAILY 03/05/22 Atorvastatin Calcium 1 tab PO DAILY 05/02/22 Cetirizine HCl 1 tab PO DAILY PRN 05/02/22 LORazepam [Ativan*] 1 tab PO TID PRN 05/02/22 [place] Carbonate [Lithotabs *] 1 tab PO DAILY 05/02/22 Nitroglycerin 1 tab SL SEECOM 05/02/22 Physician Discharge Instructions: 1. Please call and schedule a follow-up appointment with your PCP (ALVIN Mejia) in 3-5 days 2. Please call and schedule a follow-up appointment with your Fruit Canner (Dr. Palumbo) in 3-5 days 3. Please call and schedule a follow-up appointment with your Psychiatrist (Dr. aKn) in 3-5 days Diet: AHA Activity: Ad gay Followup: Sedrick Palumbo MD [ACTIVE - CAN ADMIT] - Humberto Mejia PA [Primary Care Provider] - Nick Kan MD [OUTSIDE PHYSICIAN] - Time spent managing pt's care (in minutes): 25
--- NOTE | 2022-05-02 19:59 | CON ---
Date of Consultation: 05/02/2022 Reason For Consultation: Chest pain. History Of Present Illness: This is a 56-year-old female with known history of coronary artery disea se status post multiple cardiac stents done by myself recently due to heart attack, diastolic heart f ailure, hypertension, atrial fibrillation, bipolar disorder, and dyslipidemia who presented with sudd en onset of chest pain, woke up very anxious, shaking, and had palpitations and also short of breath and had chest pain, but she does have significant anxiety disorder and she felt it was one of her wright ic attacks. She presented to the emergency room and was observed overnight. Her troponin is borderl ine elevated. No further chest pain. Now she is active, walking around, doing activities without an y further chest pain. Past Medical History: As outlined above in the HPI. Medications: Refer to reconciliation sheet for detailed list. Allergies: CODEINE, OXYCODONE, AND PENICILLIN. Family History: No premature coronary artery disease or cancer. Social History: She is an active smoker. Does not drink or use any drugs. Review of Systems: All systems reviewed and they were negative except for mentioned in HPI. Physical Examination: Vital Signs: Temperature is 98.1, pulse 72, breathing at 16, blood pressure 130/60, and saturating 9 6%. General: A pleasant middle-aged female, in no apparent distress. Head And Neck: Pupils are equal and reactive to light. Intact eye movements. No JVD. No cervical lymphadenopathy. Neck is supple. Thyroid is not enlarged. Lungs: Clear to auscultation bilaterally. No rhonchi, wheezing, or crackles. No accessory muscle u se. Heart: Regular rate and rhythm. No extra sounds. Abdomen: Soft, nontender. Bowel sounds positive. No organomegaly. No masses or hernia. No rigidi ty or rebound. Extremities: No edema, clubbing, or cyanosis. Intact pulses. Skin: No rash. Neurologic: Alert, awake, and oriented x3. No acute focal deficits appreciated. Investigations: BUN 9, creatinine 0.6. Troponin peaked at 134 then 123 and then 130. Assessment/recommendation: 1.Chest pain, atypical and troponin is mildly elevated. The patient had the same thing happen recen tly and we did angiogram and stents were perfectly normal. EKG did not show any acute abnormalities. I believe this is an acute anxiety attack and some demand ischemia from the tachycardia. No furthe r cardiac workup is needed from cardiac standpoint. Since she has been chest pain free, she can be r eleased to continue her aspirin, Plavix, and high-dose statin. Encouraged to quit smoking. Follow u p with her group managing director as an outpatient. 2.Active smoker. She was counseled in detail. 3.Hypertension. Blood pressure is controlled. 4.Dyslipidemia. Continue statin. SR/MODL Voice ID: [id number] Report ID: [id number]
[2022-05-02] MEDS ORDERED: LITHIUM 450 MG PO SCH (21:00)
== END 2022-05-02 16:05 | disposition home or self-care (01) ==
LOC: ER 16:27 → ERHOLD 18:54 → 4TH 05-02 11:26
PROVIDERS: ADMIT Internal Medicine; ATTEND Internal Medicine
DX: R07.9 Chest pain, unspecified (principal); I25.10 Atherosclerotic heart disease of native coronary artery without angina pectoris; I50.32 Chronic diastolic (congestive) heart failure; F31.9 Bipolar disorder, unspecified; F41.0 Panic disorder [episodic paroxysmal anxiety]; F17.210 Nicotine dependence, cigarettes, uncomplicated; I10 Essential (primary) hypertension; E78.5 Hyperlipidemia, unspecified; E66.9 Obesity, unspecified; Z68.41 Body mass index [BMI] 40.0-44.9, adult; Z88.6 Allergy status to analgesic agent; Z20.822 Contact with and (suspected) exposure to COVID-19
CPT/HCPCS: 93005; 85025 ×2; 80048 ×2; 36415; 83735; 85610; 80178; 85379; 84484 ×3; 83880; 71045; 87811; J1650; J2270; G0378

== ENCOUNTER 2022-05-16 10:37 | Emergency (ER) | payer OTHER ==
--- OUTSIDE RECORDS SUMMARY | 2022-05-16 11:07 | XMS REPORT | Continuity of Care Document ---
:1965 Author Organization [facility] t Address 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 Unive rs chest pain chest pain 1-03 it y of 00:00: [place] [facility] Essential Essential Disease Active Uni vers hypertensi hypertensi 1-03 it y of on on 00:00: [place] [facility] Dyslipidem Dyslipidem Disease Active U nivers ia ia 1-03 ity of 00:00: [place] [facility] Allergies, Adverse Reactions, Alerts Allergy [...] Univers E INGREDI 6-10 ity of 00:00: [place] [facility] Oxycodon Propensi Active Rash Univer s e ty to 6-10 ity of adverse 00:00: [place] reaction 00 Medical s Branch oxyCODON oxyCODON Active Maria L Peñaloza Social History Social Habit Start Date Stop Date Quantity Comments Source History of Smokes tobacco University of tobacco use daily [facility] Exposure to 2022-02-14 2022-02-[address] [facility] SARS-CoV-2 00:00:00 04:59:00 [facility] (event) Branch Alcohol intake 2022-01-15 2022-01-15 Current drinker Unive rsity of 00:00:00 00:00:00 of alcohol [facility] (finding) [place] Social History 2019-04-24 2019-04-24 [facility] Praful urias 17:19:51 17:19:51 Tobacco use and 2019-04-03 2019-04-03 Smokeless tobacco Un iversity of exposure 00:00:00 00:00:00 non-user [facility] Sex Assigned At [birth year] Universit y of 00:00:00 00:00:00 [facility] Smoking Status Start Date Stop Date Source Smokes tobacco daily 2019-04-03 00:00:00 [facility] Medications Ordered Filled Start Stop Current [...] ity of injection 10:45: 10:45 ONCE, 1 Rnezoa s 40 mg 00 :00 dose, On [...] 75 mcg 2-26 tablet 00:00: 00 citalopram 2019- No [...] tab, PO, l tablet 17:20: Daily, # [place] 00 30 tab, 0 Refill(s) metoprolol 2020-0 [...] tab, PO, l Coated 17:20: Daily, # [place] Tablet 00 90 tab, 3 Refill(s) levothyroxi [...] tab, PO, l tablet 17:20: Daily, # [place] 00 30 tab, 0 Refill(s) metoprolol 2020-0 [...] tab, PO, l tablet 17:20: Daily, # [place] 00 30 tab, 0 Refill(s) metoprolol 2020-0 [...] tab, PO, l Coated 17:20: Daily, # [place] Tablet 00 90 tab, 3 Refill(s) levothyroxi [...] tab, PO, l tablet 17:20: Daily, # [place] 00 30 tab, 0 Refill(s) metoprolol 2020-0 [...] 1-24 PO, BID, 0 l 17:20: Refill(s) [place] 00 citalopram 2020-0 Yes 10 mg = 1 Me moria 10 mg oral 1-24 tab, PO, l tablet 17:20: Daily, # [place] 00 30 tab, 0 Refill(s) metoprolol 2020-0 [...] tab, PO, l Coated 17:20: Daily, # [place] Tablet 00 90 tab, 3 Refill(s) levothyroxi [...] tab, PO, l Coated 17:20: Daily, # [place] Tablet 00 90 tab, 3 Refill(s) levothyroxi [...] tab, PO, l Coated 17:20: Daily, # [place] Tablet 00 90 tab, 3 Refill(s) levothyroxi [...] tab, PO, l tablet 17:20: Daily, # [place] 00 30 tab, 0 Refill(s) metoprolol 2020-0 [...] tab, PO, l Coated 17:20: Daily, # [place] Tablet 00 90 tab, 3 Refill(s) levothyroxi [...] tab, PO, l tablet 17:20: Daily, # [place] 00 30 tab, 0 Refill(s) metoprolol 2020-0 [...] tab, PO, l tablet 17:20: Daily, # [place] 00 30 tab, 0 Refill(s) metoprolol 2020-0 [...] Memoria n 1-24 0 l 17:20: Refill(s) [place] Aspirin 81 2020-0 Yes 81 mg = 1 Me moria MG Enteric 1-24 tab, PO, l Coated 17:20: Daily, # [place] Tablet 00 90 tab, 3 Refill(s) levothyroxi [...] tab, PO, l Coated 17:20: Daily, # [place] Tablet 00 90 tab, 3 Refill(s) levothyroxi [...] Memoria n 1-24 0 l 17:20: Refill(s) [place] Aspirin 81 2020-0 Yes 81 mg = [...] 1-24 PO, BID, 0 l 17:20: Refill(s) [place] 00 citalopram 2020-0 Yes 10 mg = [...] tab, PO, l Coated 17:20: Daily, # [place] Tablet 00 90 tab, 3 Refill(s) levothyroxi [...] Memoria n 1-24 0 l 17:20: Refill(s) metoprolol 2020-0 Yes 100 mg = [...] Jh Tablet 00 90 tab, 3 Refill(s) Aspirin 81 2020-0 Yes 81 mg = 1 Me moria MG Enteric 1-24 tab, PO, l Coated 17:20: Daily, # [place] Tablet 00 90 tab, 3 Refill(s) levothyroxi [...] tab, PO, l tablet 17:20: Daily, # [place] 00 30 tab, 0 Refill(s) lithium 2020-0 [...] mouth ity of mg tablet 18:44: daily. [place] [address] Medical Branch metoprolol 2020-0 Yes 100mg Take 100 Un debo succinate 1-03 mg by ity of 100 mg CSpX 18:44: mouth [place] 18 daily. Medical Branch atorvastati 2020-0 Yes 10mg Take 10 mg Univers n 10 mg 1-03 by mouth ity of tablet 18:44: at [place] [address] bedtime. Medical Branch aspirin 81 2020-0 Yes 81mg Take 81 mg U nivers mg chewable 1-03 by mouth ity of tablet 18:44: daily. [place] [address] Medical Branch citalopram 2020-0 Yes 20mg Take 20 mg U nivers 20 mg 1-03 by mouth ity of tablet 18:44: daily. [place] [address] Medical Branch lithium 2020-0 Yes 450mg Take [...] mouth ity of mg tablet 18:44: daily. [place] [address] Medical Branch metoprolol 2020-0 Yes 100mg Take [...] by mouth ity of tablet 18:44: daily. [place] [address] Medical Branch citalopram 2020-0 Yes 20mg Take 20 mg U nivers 20 mg 1-03 by mouth ity of tablet 18:44: daily. [place] [address] Medical Branch lithium 2020-0 Yes 450mg Take [...] mouth ity of mg tablet 18:44: daily. [place] [address] Medical Branch metoprolol 2020-0 Yes 100mg Take 100 Un debo succinate 1-03 mg by ity of 100 mg CSpX 18:44: mouth [place] 18 daily. Medical Branch atorvastati 2020-0 Yes 10mg Take 10 mg Univers n 10 mg 1-03 by mouth ity of tablet 18:44: at [place] 18 bedtime. Medical Branch aspirin 81 2020-0 Yes 81mg Take 81 mg U nivers mg chewable 1-03 by mouth ity of tablet 18:44: daily. [place] [address] Medical Branch citalopram 2020-0 Yes 20mg Take 20 mg U nivers 20 mg 1-03 by mouth ity of tablet 18:44: daily. [place] [address] Medical Branch lithium 2020-0 Yes 450mg Take [...] mouth ity of mg tablet 18:44: daily. [place] [address] Medical Branch metoprolol 2020-0 Yes 100mg Take 100 Un debo succinate 1-03 mg by ity of 100 mg CSpX 18:44: mouth [place] 18 daily. Medical Branch atorvastati 2020-0 Yes 10mg Take 10 mg Univers n 10 mg 1-03 by mouth ity of tablet 18:44: at [place] [address] bedtime. Medical Branch aspirin 81 2020-0 Yes 81mg Take 81 mg U nivers mg chewable 1-03 by mouth ity of tablet 18:44: daily. [place] [address] Medical Branch citalopram 2020-0 Yes 20mg Take 20 mg U nivers 20 mg 1-03 by mouth ity of tablet 18:44: daily. [place] [address] Medical Branch lithium 2020-0 Yes 450mg Take [...] mouth ity of mg tablet 18:44: daily. [place] [address] Medical Branch metoprolol 2020-0 Yes 100mg Take 100 Un debo succinate 1-03 mg by ity of 100 mg CSpX 18:44: mouth [place] 18 daily. Medical Branch atorvastati 2020-0 Yes 10mg Take 10 mg Univers n 10 mg 1-03 by mouth ity of tablet 18:44: at [place] 18 bedtime. Medical Branch aspirin 81 2020-0 Yes 81mg Take 81 mg U nivers mg chewable 1-03 by mouth ity of tablet 18:44: daily. [place] [address] Medical Branch citalopram 2020-0 Yes 20mg Take 20 mg U nivers 20 mg 1-03 by mouth ity of tablet 18:44: daily. [place] [address] Medical Branch ipratropium 2018-1 Yes 3mL Inhale 3 Un debo -albuterol [...] Source Systolic blood 2022-02-24 12:00:00 145 [facility]Hg[facility] blood 2022-02-24 12:00:00 81 mm[Hg] [facility] Heart rate 2022-02-24 12:00:00 88 /min [facility] Respiratory rate 2022-02-24 12:00:00 18 /min [facility] Oxygen saturation in 2022-02-24 12:00:00 98 /min [facility] Arterial blood by [facility] Pulse oximetry Branch Body temperature 2022-02-24 11:00:00 36.78 [facility] Body height 2022-02-24 11:00:[address] [facility] Body weight 2022-02-24 11:00:00 105.235 kg Universi ty [facility] [place] [place] BMI 2022-02-24 11:00:00 42.43 kg/m2 Universi ty [facility] [place] [place] Systolic blood 2022-01-15 11:49:00 138 mm[Hg] Univer sity of pressure [facility] Diastolic blood 2022-01-15 11:49:00 74 mm[Hg] Unive rsity of pressure [facility] Heart rate 2022-01-15 11:49:00 80 /min Universi ty [facility] [place] [place] Respiratory rate 2022-01-15 11:49:00 22 /min [facility] Oxygen saturation in 2022-01-15 11:49:00 91 /min [facility] Arterial blood by [facility] Pulse oximetry Branch Body temperature 2022-01-15 10:01:00 35.89 [facility] [place] [facility] height 2022-01-15 10:01:[address] [facility] Body weight 2022-01-15 10:01:[address] [facility] BMI 2022-01-15 10:01:00 41.70 kg/m2 [facility] BP Systolic 2022-04-05 11:25:00 140 mm[Hg] BP [...] Jae Peñaloza Diastolic (mm Hg) 2019-04-24 17:15:00 [facility] jaja Peñaloza Height 2019-04-24 17:15:00 157.48 [facility] 2019-04-24 17:15:00 [facility] [place] [facility] BMI Calculated 2019-04-24 17:15:00 Maria L Kelley Procedures Procedure Date / Time Performing Clinician Source Performed REFERRAL- 2022-03-06 06:01:00 Doctor Unassigned, [facility] REQUEST/RESPONSE [place] [facility] XR CHEST 1 VW 2022-02-24 11:28:44 Dolores Patterson [facility] LIPASE 2022-02-24 11:08:00 Yesenia Dolores [facility] TROPONIN I 2022-02-24 11:08:00 Yesenia Dolores [facility] COMP. METABOLIC PANEL 2022-02-24 11:08:00 Dolores Patterson [facility] ([id number]) [facility] CBC WITH DIFF 2022-02-24 11:08:00 Dolores Patterson [facility] PROTHROMBIN TIME / INR 2022-02-24 11:08:[address] [facility] ACTIVATED PARTIAL 2022-02-24 11:08:00 Dolores Patterson [facility] RAPID INFLUENZA A/B 2022-02-24 11:08:00 Dolores Patterson [facility] CONSENT/REFUSAL FOR 2022-02-24 10:53:[address] [facility] DIAGNOSIS AND TREATMENT [place] [facility] [place] XR CHEST 1 VW 2022-01-15 10:43:31 Rustam Looney [facility] URINALYSIS 2022-01-15 10:13:00 Rustam Looney [facility] LIPASE 2022-01-15 10:05:00 Rustam Looney [facility] TROPONIN I 2022-01-15 10:05:00 Rustam Looney [facility] COMP. METABOLIC PANEL 2022-01-15 10:05:[address] [facility] ([id number]) [facility] CBC WITH DIFF 2022-01-15 10:05:00 Rustam Looney [facility] PROTHROMBIN TIME / INR 2022-01-15 10:05:00 Rustam Looney [facility] ACTIVATED PARTIAL 2022-01-15 10:05:00 Rustam Looney [facility] N-TERMINAL PRO-BNP 2022-01-15 10:05:[address] [facility] CONSENT/REFUSAL FOR 2022-01-15 09:53:[address] [facility] DIAGNOSIS AND TREATMENT [place] [facility] REFERRAL- 2021-08-09 05:01:00 Doctor Darion, [facility] REQUEST/RESPONSE [place] [facility] Abdominoplasty 2003-04-01 00:00:00 Felix mcneal 1991-04-01 00:00:00 Felix mcneal section<sup>1</sup> Plan of Care Planned Activity Planned Date Details Comments Source Goal Plan of Care Note [code = 76854-2] Goal Plan of Care Note [code = 52313-1] Goal Plan of Care Note [code = 95559-0] Goal Plan of Care Note [code = 92756-2] Goal Plan of Care Note [code = 70363-8] Goal Plan of Care Note [code = 75758-8] Goal Plan of Care Note [code = 70072-8] Goal Plan of Care Note [code = 16653-0] Goal Plan of Care Note [code = 02223-6] Goal Plan of Care Note [code = 33651-1] Goal Plan of Care Note [code = 52117-2] Goal Plan of Care Note [code = 47420-5] Goal Plan of Care Note [code = 98747-6] Goal Plan of Care Note [code = 38174-1] Goal Plan of Care Note [code = 73570-5] Goal Plan of Care Note [code = 75759-0] Goal Plan of Care Note [code = 81365-2] Goal Plan of Care Note [code = 23878-6] Goal Plan of Care Note [code = 08871-8] Goal Plan of Care Note [code = 88491-4] Goal Plan of Care Note [code = 83131-9] Goal Plan of Care Note [code = 36600-3] Goal Plan of Care Note [code = 06600-3] Goal Plan of Care Note [code = 54659-5] Goal Plan of Care Note [code = 29496-0] Goal Plan of Care Note [code = 89836-7] Goal Plan of Care Note [code = 38165-5] Goal Plan of Care Note [code = 77448-1] Goal Plan of Care Note [code = 19480-6] Goal Plan of Care Note [code = 92064-7] Goal Plan of Care Note [code = 82312-6] Goal Plan of Care Note [code = 30569-1] Goal Plan of Care Note [code = 26383-2] Goal Plan of Care Note [code = 87283-4] Goal Plan of Care Note [code = 34369-9] Goal Plan of Care Note [code = 07508-1] Goal Plan of Care Note [code = 89482-4] Goal Plan of Care Note [code = 89169-8] Goal Plan of Care Note [code = 38856-9] Goal Plan of Care Note [code = 48288-7] Goal Plan of Care Note [code = 16587-3] Goal Plan of Care Note [code = 24037-6] Goal Plan of Care Note [code = 91522-4] Goal Plan of Care Note [code = 74071-7] Goal Plan of Care Note [code = 01689-3] Goal Plan of Care Note [code = 63058-1] Goal Plan of Care Note [code = 17224-0] Goal Plan of Care Note [code = 02461-7] Goal Plan of Care Note [code = 63751-7] Goal Plan of Care Note [code = 81739-7] Goal Plan of Care Note [code = 96094-4] Goal Plan of Care Note [code = 28364-0] Goal Plan of Care Note [code = 50124-5] Goal Plan of Care Note [code = 76175-9] Goal Plan of Care Note [code = 38634-8] Goal Plan of Care Note [code = 83425-4] Goal Plan of Care Note [code = 54261-9] Goal Plan of Care Note [code = 28092-5] Goal Plan of Care Note [code = 45238-0] Goal Plan of Care Note [code = 97952-1] Goal Plan of Care Note [code = 02487-6] Goal Plan of Care Note [code = 33266-0] Goal Plan of Care Note [code = 35860-7] Goal Plan of Care Note [code = 97305-7] Goal Plan of Care Note [code = 78821-1] Goal Plan of Care Note [code = 75585-0] Goal Plan of Care Note [code = 88543-8] Goal Plan of Care Note [code = 18365-7] Goal Plan of Care Note [code = 61908-1] Goal Plan of Care Note [code = 14657-8] Goal Plan of Care Note [code = 92969-1] Goal Plan of Care Note [code = 58091-1] Goal Plan of Care Note [code = 48724-4] Goal Plan of Care Note [code = 59516-0] Goal Plan of Care Note [code = 03269-2] Goal Plan of Care Note [code = 65492-4] Goal Plan of Care Note [code = 72881-3] Goal Plan of Care Note [code = 86474-2] Goal Plan of Care Note [code = 07633-1] Goal Plan of Care Note [code = 23820-4] Goal Plan of Care Note [code = 40696-5] Goal Plan of Care Note [code = 22131-9] Goal Plan of Care Note [code = 18396-9] Goal Plan of Care Note [code = 51637-4] Goal Plan of Care Note [code = 19479-5] Goal Plan of Care Note [code = 93679-3] Goal Plan of Care Note [code = 83440-2] Goal Plan of Care Note [code = 59355-7] Goal Plan of Care Note [code = 14627-0] Goal Plan of Care Note [code = 08617-6] Goal Plan of Care Note [code = 19062-2] Goal Plan of Care Note [code = 57122-7] Goal Plan of Care Note [code = 99438-2] Goal Plan of Care Note [code = 10238-4] Goal Plan of Care Note [code = 96880-4] Goal Plan of Care Note [code = 09419-1] Goal Plan of Care Note [code = 49478-5] Goal Plan of Care Note [code = 01411-3] Goal Plan of Care Note [code = 64577-7] Goal Plan of Care Note [code = 15233-8] Goal Plan of Care Note [code = 38403-0] Goal Plan of Care Note [code = 64186-0] Goal Plan of Care Note [code = 29461-6] Goal Plan of Care Note [code = 78411-7] Goal Plan of Care Note [code = 84857-5] Goal Plan of Care Note [code = 04460-3] Goal Plan of Care Note [code = 08723-2] Goal Plan of Care Note [code = 23980-2] Goal Plan of Care Note [code = 70771-3] Goal Plan of Care Note [code = 41898-0] Goal Plan of Care Note [code = 69732-5] Goal Plan of Care Note [code = 08900-4] Goal Plan of Care Note [code = 37313-0] Goal Plan of Care Note [code = 87356-6] Goal Plan of Care Note [code = 80273-1] Goal Plan of Care Note [code = 55320-3] Goal Plan of Care Note [code = 07723-6] Goal Plan of Care Note [code = 83458-9] Goal Plan of Care Note [code = 79408-2] Goal Plan of Care Note [code = 74983-8] Goal Plan of Care Note [code = 52154-1] Goal Plan of Care Note [code = 75223-4] Goal Plan of Care Note [code = 76866-4] Goal Plan of Care Note [code = 67955-8] Goal Plan of Care Note [code = 76145-5] Goal Plan of Care Note [code = 72441-5] Goal Plan of Care Note [code = 68514-0] Goal Plan of Care Note [code = 69182-8] Goal Plan of Care Note [code = 08959-9] Goal Plan of Care Note [code = 65361-2] Goal Plan of Care Note [code = 12511-2] Goal Plan of Care Note [code = 55391-4] Goal Plan of Care Note [code = 07666-6] Goal Plan of Care Note [code = 19045-9] Goal Plan of Care Note [code = 25202-5] Goal Plan of Care Note [code = 82138-1] Goal Plan of Care Note [code = 38275-2] Goal Plan of Care Note [code = 81406-6] Goal Plan of Care Note [code = 36934-5] Goal Plan of Care Note [code = 25600-5] Goal Plan of Care Note [code = 85599-4] Goal Plan of Care Note [code = 10962-5] Goal Plan of Care Note [code = 58090-5] Goal Plan of Care Note [code = 31060-3] Goal Plan of Care Note [code = 01243-3] Goal Plan of Care Note [code = 09292-8] Goal Plan of Care Note [code = 12564-7] Goal Plan of Care Note [code = 90136-7] Goal Plan of Care Note [code = 17583-5] Goal Plan of Care Note [code = 44917-5] Goal Plan of Care Note [code = 06987-4] Goal Plan of Care Note [code = 23119-1] Goal Plan of Care Note [code = 44183-1] Goal Plan of Care Note [code = 18087-0] Goal Plan of Care Note [code = 60230-5] Goal Plan of Care Note [code = 64866-3] Goal Plan of Care Note [code = 10110-2] Goal Plan of Care Note [code = 95287-8] Goal Plan of Care Note [code = 32507-8] Goal Plan of Care Note [code = 83045-6] Goal Plan of Care Note [code = 05218-5] Goal Plan of Care Note [code = 83745-0] Goal Plan of Care Note [code = 51024-5] Goal Plan of Care Note [code = 94799-2] Goal Plan of Care Note [code = 58945-0] Goal Plan of Care Note [code = 06798-6] Goal Plan of Care Note [code = 96650-2] Goal Plan of Care Note [code = 84220-2] Goal Plan of Care Note [code = 51598-4] Goal Plan of Care Note [code = 17468-7] Goal Plan of Care Note [code = 69850-4] Goal Plan of Care Note [code = 27863-1] Goal Plan of Care Note [code = 47599-2] Goal Plan of Care Note [code = 74011-6] Goal Plan of Care Note [code = 52925-7] Goal Plan of Care Note [code = 04914-0] Goal Plan of Care Note [code = 14107-1] Goal Plan of Care Note [code = 87623-7] Goal Plan of Care Note [code = 99585-5] Goal Plan of Care Note [code = 22887-0] Goal Plan of Care Note [code = 83456-5] Goal Plan of Care Note [code = 32684-7] Goal Plan of Care Note [code = 38018-6] Goal Plan of Care Note [code = 29966-0] Goal Plan of Care Note [code = 81812-5] Goal Plan of Care Note [code = 20941-5] Goal Plan of Care Note [code = 80806-5] Goal Plan of Care Note [code = 40920-5] Goal Plan of Care Note [code = 35952-6] Goal Plan of Care Note [code = 04576-5] Goal Plan of Care Note [code = 65900-3] Goal Plan of Care Note [code = 64848-1] Goal Plan of Care Note [code = 19333-1] Goal Plan of Care Note [code = 32781-5] Goal Plan of Care Note [code = 44336-9] Goal Plan of Care Note [code = 97469-6] Goal Plan of Care Note [code = 12710-1] Goal Plan of Care Note [code = 52962-9] Goal Plan of Care Note [code = 66172-7] Goal Plan of Care Note [code = 49514-7] Goal Plan of Care Note [code = 93664-1] Goal Plan of Care Note [code = 68649-2] Goal Plan of Care Note [code = 93078-1] Goal Plan of Care Note [code = 03655-9] Goal Plan of Care Note [code = 75473-4] Goal Plan of Care Note [code = 29769-5] Goal Plan of Care Note [code = 06185-6] Goal Plan of Care Note [code = 08644-9] Goal Plan of Care Note [code = 07585-7] Goal Plan of Care Note [code = 03665-1] Goal Plan of Care Note [code = 02958-3] Goal Plan of Care Note [code = 78605-2] Goal Plan of Care Note [code = 12592-5] Goal Plan of Care Note [code = 29744-7] Goal Plan of Care Note [code = 79618-6] Goal Plan of Care Note [code = 46916-9] Goal Plan of Care Note [code = 80348-4] Goal Plan of Care Note [code = 16653-4] Goal Plan of Care Note [code = 65039-2] Goal Plan of Care Note [code = 11347-7] Goal Plan of Care Note [code = 78202-9] Goal Plan of Care Note [code = 89325-3] Goal Plan of Care Note [code = 63408-0] Goal Plan of Care Note [code = 09456-1] Goal Plan of Care Note [code = 87895-4] Goal Plan of Care Note [code = 94218-7] Goal Plan of Care Note [code = 46181-8] Goal Plan of Care Note [code = 42120-6] Goal Plan of Care Note [code = 36293-0] Goal Plan of Care Note [code = 34464-5] Goal Plan of Care Note [code = 48998-0] Goal Plan of Care Note [code = 53926-5] Goal Plan of Care Note [code = 39937-3] Goal Plan of Care Note [code = 86398-5] Goal Plan of Care Note [code = 31228-5] Goal Plan of Care Note [code = 98544-6] Goal Plan of Care Note [code = 16636-4] Goal Plan of Care Note [code = 41829-4] Goal Plan of Care Note [code = 01472-8] Goal Plan of Care Note [code = 17128-1] Goal Plan of Care Note [code = 11606-0] Goal Plan of Care Note [code = 58956-3] Goal Plan of Care Note [code = 19196-9] Goal Plan of Care Note [code = 01109-3] Goal Plan of Care Note [code = 87168-5] Goal Plan of Care Note [code = 67985-9] Goal Plan of Care Note [code = 27944-0] Goal Plan of Care Note [code = 83006-7] Goal Plan of Care Note [code = 16081-0] Goal Plan of Care Note [code = 07129-6] Goal Plan of Care Note [code = 85589-5] Goal Plan of Care Note [code = 59921-5] Goal Plan of Care Note [code = 58879-4] Goal Plan of Care Note [code = 64381-5] Goal Plan of Care Note [code = 83775-5] Goal Plan of Care Note [code = 72489-8] Goal Plan of Care Note [code = 47479-9] Goal Plan of Care Note [code = 63775-9] Goal Plan of Care Note [code = 99925-6] Goal Plan of Care Note [code = 96501-7] Goal Plan of Care Note [code = 11107-7] Goal Plan of Care Note [code = 46090-0] Goal Plan of Care Note [code = 05865-5] Goal Plan of Care Note [code = 25929-4] Goal Plan of Care Note [code = 16964-4] Goal Plan of Care Note [code = 46795-2] Goal Plan of Care Note [code = 12845-6] Goal Plan of Care Note [code = 19798-5] Goal Plan of Care Note [code = 17234-5] Goal Plan of Care Note [code = 90880-2] Goal Plan of Care Note [code = 17337-5] Goal Plan of Care Note [code = 81864-9] Goal Plan of Care Note [code = 37036-5] Goal Plan of Care Note [code = 00469-9] Goal Plan of Care Note [code = 69300-8] Goal Plan of Care Note [code = 58980-7] Goal Plan of Care Note [code = 52496-3] Goal Plan of Care Note [code = 76359-5] Goal Plan of Care Note [code = 45585-2] Goal Plan of Care Note [code = 39547-5] Goal Plan of Care Note [code = 41136-1] Goal Plan of Care Note [code = 12539-9] Goal Plan of Care Note [code = 24070-6] Goal Plan of Care Note [code = 76977-6] Goal Plan of Care Note [code = 47927-9] Goal Plan of Care Note [code = 08824-7] Goal Plan of Care Note [code = 81137-8] Goal Plan of Care Note [code = 74493-8] Goal Plan of Care Note [code = 04594-2] Goal Plan of Care Note [code = 08194-4] Goal Plan of Care Note [code = 69159-0] Goal Plan of Care Note [code = 34438-4] Goal Plan of Care Note [code = 80248-4] Goal Plan of Care Note [code = 60954-9] Goal Plan of Care Note [code = 63411-2] Goal Plan of Care Note [code = 57915-2] Goal Plan of Care Note [code = 12575-6] Goal Plan of Care Note [code = 78662-9] Goal Plan of Care Note [code = 31171-8] Goal Plan of Care Note [code = 45086-4] Goal Plan of Care Note [code = 84691-2] Goal Plan of Care Note [code = 23326-1] Goal Plan of Care Note [code = 11429-0] Goal Plan of Care Note [code = 66607-9] Goal Plan of Care Note [code = 70258-8] Goal Plan of Care Note [code = 58465-5] Goal Plan of Care Note [code = 27466-7] Goal Plan of Care Note [code = 54429-5] Goal Plan of Care Note [code = 88114-9] Goal Plan of Care Note [code = 21820-9] Goal Plan of Care Note [code = 44738-2] Goal Plan of Care Note [code = 73007-0] Goal Plan of Care Note [code = 01429-0] Goal Plan of Care Note [code = 05401-1] Goal Plan of Care Note [code = 57273-6] Goal Plan of Care Note [code = 39771-9] Goal Plan of Care Note [code = 88434-8] Goal Plan of Care Note [code = 71268-5] Goal Plan of Care Note [code = 81361-9] Goal Plan of Care Note [code = 01537-7] Goal Plan of Care Note [code = 02496-6] Goal Plan of Care Note [code = 05392-4] Goal Plan of Care Note [code = 02457-8] Goal Plan of Care Note [code = 92879-5] Goal Plan of Care Note [code = 02249-3] Goal Plan of Care Note [code = 29736-0] Goal Plan of Care Note [code = 91013-1] Goal Plan of Care Note [code = 22249-6] Goal Plan of Care Note [code = 90003-3] Goal Plan of Care Note [code = 74136-4] Goal Plan of Care Note [code = 78428-8] Goal Plan of Care Note [code = 66390-6] Goal Plan of Care Note [code = 26921-2] Goal Plan of Care Note [code = 44480-8] Goal Plan of Care Note [code = 54690-6] Goal Plan of Care Note [code = 29431-9] Goal Plan of Care Note [code = 75254-5] Goal Plan of Care Note [code = 64590-0] Goal Plan of Care Note [code = 19267-8] Goal Plan of Care Note [code = 72316-4] Goal Plan of Care Note [code = 24387-3] Goal Plan of Care Note [code = 48689-7] Goal Plan of Care Note [code = 79332-5] Goal Plan of Care Note [code = 77109-4] Goal Plan of Care Note [code = 36545-9] Goal Plan of Care Note [code = 38666-3] Goal Plan of Care Note [code = 23738-4] Goal Plan of Care Note [code = 31406-7] Goal Plan of Care Note [code = 15883-2] Goal Plan of Care Note [code = 40714-6] Goal Plan of Care Note [code = 48733-5] Goal Plan of Care Note [code = 01126-6] Goal Plan of Care Note [code = 79450-3] Goal Plan of Care Note [code = 66783-4] Goal Plan of Care Note [code = 29036-6] Goal Plan of Care Note [code = 67251-7] Goal Plan of Care Note [code = 10970-3] Goal Plan of Care Note [code = 34537-1] Goal Plan of Care Note [code = 45679-0] Goal Plan of Care Note [code = 31895-2] Goal Plan of Care Note [code = 09536-2] Goal Plan of Care Note [code = 31732-8] Goal Plan of Care Note [code = 06098-5] Goal Plan of Care Note [code = 80400-3] Goal Plan of Care Note [code = 63339-6] Goal Plan of Care Note [code = 65458-4] Goal Plan of Care Note [code = 62465-7] Goal Plan of Care Note [code = 85151-9] Goal Plan of Care Note [code = 89946-9] Goal Plan of Care Note [code = 39674-6] Goal Plan of Care Note [code = 12255-5] Goal Plan of Care Note [code = 24986-1] Goal Plan of Care Note [code = 65013-3] Goal Plan of Care Note [code = 26259-3] Goal Plan of Care Note [code = 60703-0] Goal Plan of Care Note [code = 18496-4] Goal Plan of Care Note [code = 34339-8] Goal Plan of Care Note [code = 85878-8] Goal Plan of Care Note [code = 95406-7] Goal Plan of Care Note [code = 51457-7] Goal Plan of Care Note [code = 23116-9] Goal Plan of Care Note [code = 66558-0] Goal Plan of Care Note [code = 39250-8] Goal Plan of Care Note [code = 79211-2] Goal Plan of Care Note [code = 59121-5] Goal Plan of Care Note [code = 00351-4] Goal Plan of Care Note [code = 15705-5] Goal Plan of Care Note [code = 62859-7] Goal Plan of Care Note [code = 33144-4] Goal Plan of Care Note [code = 45528-4] Goal Plan of Care Note [code = 27467-3] Goal Plan of Care Note [code = 24416-1] Goal Plan of Care Note [code = 46524-3] Goal Plan of Care Note [code = 23077-0] Goal Plan of Care Note [code = 23424-3] Goal Plan of Care Note [code = 05758-5] Goal Plan of Care Note [code = 83607-3] Goal Plan of Care Note [code = 01487-2] Goal Plan of Care Note [code = 62422-2] Goal Plan of Care Note [code = 96506-1] Goal Plan of Care Note [code = 71000-5] Goal Plan of Care Note [code = 48529-7] Goal Plan of Care Note [code = 61349-7] Goal Plan of Care Note [code = 59411-0] Goal Plan of Care Note [code = 08565-1] Goal Plan of Care Note [code = 12269-4] Goal Plan of Care Note [code = 61922-8] Goal Plan of Care Note [code = 83800-8] Goal Plan of Care Note [code = 79382-2] Goal Plan of Care Note [code = 44593-8] Goal Plan of Care Note [code = 87693-9] Goal Plan of Care Note [code = 92034-8] Goal Plan of Care Note [code = 78505-1] Goal Plan of Care Note [code = 79500-4] Goal Plan of Care Note [code = 23616-2] Goal Plan of Care Note [code = 03544-1] Goal Plan of Care Note [code = 43993-7] Goal Plan of Care Note [code = 05060-0] Goal Plan of Care Note [code = 65493-9] Goal Plan of Care Note [code = 40026-0] Goal Plan of Care Note [code = 39333-0] Goal Plan of Care Note [code = 70854-9] Goal Plan of Care Note [code = 70125-3] Goal Plan of Care Note [code = 84815-9] Goal Plan of Care Note [code = 25718-8] Goal Plan of Care Note [code = 52201-2] Goal Plan of Care Note [code = 63055-2] Goal Plan of Care Note [code = 57332-5] Goal Plan of Care Note [code = 72392-9] Goal Plan of Care Note [code = 23992-5] Goal Plan of Care Note [code = 51423-6] Goal Plan of Care Note [code = 68841-7] Goal Plan of Care Note [code = 60278-6] Goal Plan of Care Note [code = 71678-4] Goal Plan of Care Note [code = 21747-4] Goal Plan of Care Note [code = 42192-9] Goal Plan of Care Note [code = 68905-0] Goal Plan of Care Note [code = 49386-4] Goal Plan of Care Note [code = 17289-3] Goal Plan of Care Note [code = 75998-2] Goal Plan of Care Note [code = 54410-0] Goal Plan of Care Note [code = 85885-5] Goal Plan of Care Note [code = 36366-9] Goal Plan of Care Note [code = 91745-2] Goal Plan of Care Note [code = 11191-2] Goal Plan of Care Note [code = 49552-6] Goal Plan of Care Note [code = 98780-2] Goal Plan of Care Note [code = 05605-5] Goal Plan of Care Note [code = 32715-3] Goal Plan of Care Note [code = 85538-8] Goal Plan of Care Note [code = 92216-7] Goal Plan of Care Note [code = 24574-2] Goal Plan of Care Note [code = 76938-0] Goal Plan of Care Note [code = 87165-8] Goal Plan of Care Note [code = 46527-1] Goal Plan of Care Note [code = 31807-2] Goal Plan of Care Note [code = 98713-5] Goal Plan of Care Note [code = 83457-4] Goal Plan of Care Note [code = 50466-1] Goal Plan of Care Note [code = 78887-9] Goal Plan of Care Note [code = 07156-3] Goal Plan of Care Note [code = 82366-9] Goal Plan of Care Note [code = 25990-8] Goal Plan of Care Note [code = 08300-8] Goal Plan of Care Note [code = 78640-1] Goal Plan of Care Note [code = 25901-7] Goal Plan of Care Note [code = 34245-2] Goal Plan of Care Note [code = 55840-1] Goal Plan of Care Note [code = 17405-0] Goal Plan of Care Note [code = 42143-4] Goal Plan of Care Note [code = 98925-2] Goal Plan of Care Note [code = 85913-2] Goal Plan of Care Note [code = 92786-4] Goal Plan of Care Note [code = 23298-3] Goal Plan of Care Note [code = 06127-8] Goal Plan of Care Note [code = 60613-9] Goal Plan of Care Note [code = 67834-2] Goal Plan of Care Note [code = 64685-5] Goal Plan of Care Note [code = 70618-7] Goal Plan of Care Note [code = 36204-6] Goal Plan of Care Note [code = 59044-0] Goal Plan of Care Note [code = 09626-5] Goal Plan of Care Note [code = 31814-0] Goal Plan of Care Note [code = 98271-5] Goal Plan of Care Note [code = 70195-5] Goal Plan of Care Note [code = 53885-2] Goal Plan of Care Note [code = 58435-4] Goal Plan of Care Note [code = 67512-2] Goal Plan of Care Note [code = 61912-7] Goal Plan of Care Note [code = 17784-0] Goal Plan of Care Note [code = 52867-5] Goal Plan of Care Note [code = 78836-3] Goal Plan of Care Note [code = 22291-5] Goal Plan of Care Note [code = 15721-3] Goal Plan of Care Note [code = 92898-9] Goal Plan of Care Note [code = 60900-7] Goal Plan of Care Note [code = 55209-4] Goal Plan of Care Note [code = 14811-3] Goal Plan of Care Note [code = 35893-1] Goal Plan of Care Note [code = 94284-8] Goal Plan of Care Note [code = 55586-9] Goal Plan of Care Note [code = 54074-9] Goal Plan of Care Note [code = 08766-5] Goal Plan of Care Note [code = 67923-1] Goal Plan of Care Note [code = 39394-4] Goal Plan of Care Note [code = 75483-9] Goal Plan of Care Note [code = 91000-1] Goal Plan of Care Note [code = 78450-4] Goal Plan of Care Note [code = 69293-0] Goal Plan of Care Note [code = 89403-2] Goal Plan of Care Note [code = 41414-5] Goal Plan of Care Note [code = 03777-8] Goal Plan of Care Note [code = 80936-5] Goal Plan of Care Note [code = 32747-3] Goal Plan of Care Note [code = 82802-1] Goal Plan of Care Note [code = 93131-1] Goal Plan of Care Note [code = 59376-7] Goal Plan of Care Note [code = 44754-1] Goal Plan of Care Note [code = 88319-3] Goal Plan of Care Note [code = 91853-4] Goal Plan of Care Note [code = 60742-7] Goal Plan of Care Note [code = 51533-2] Goal Plan of Care Note [code = 72749-9] Goal Plan of Care Note [code = 10271-9] Goal Plan of Care Note [code = 98321-6] Goal Plan of Care Note [code = 73067-2] Goal Plan of Care Note [code = 89328-4] Goal Plan of Care Note [code = 97926-7] Goal Plan of Care Note [code = 87437-8] Goal Plan of Care Note [code = 40872-7] Goal Plan of Care Note [code = 66678-0] Goal Plan of Care Note [code = 74207-6] Goal Plan of Care Note [code = 47531-2] Goal Plan of Care Note [code = 68516-5] Goal Plan of Care Note [code = 91937-1] Goal Plan of Care Note [code = 63491-2] Goal Plan of Care Note [code = 62824-5] Goal Plan of Care Note [code = 60921-9] Goal Plan of Care Note [code = 06131-1] Goal Plan of Care Note [code = 84929-6] Goal Plan of Care Note [code = 45080-5] Goal Plan of Care Note [code = 14409-2] Goal Plan of Care Note [code = 66498-7] Goal Plan of Care Note [code = 96808-5] Goal Plan of Care Note [code = 73106-3] Goal Plan of Care Note [code = 42884-8] Goal Plan of Care Note [code = 21038-6] Goal Plan of Care Note [code = 84670-2] Goal Plan of Care Note [code = 51959-1] Goal Plan of Care Note [code = 93774-7] Goal Plan of Care Note [code = 79341-4] Goal Plan of Care Note [code = 54114-6] Goal Plan of Care Note [code = 00553-3] Goal Plan of Care Note [code = 16547-9] Goal Plan of Care Note [code = 71453-9] Goal Plan of Care Note [code = 42605-7] Goal Plan of Care Note [code = 38024-4] Goal Plan of Care Note [code = 52599-0] Goal Plan of Care Note [code = 87382-2] Goal Plan of Care Note [code = 64161-7] Goal Plan of Care Note [code = 73839-4] Goal Plan of Care Note [code = 50154-7] Goal Plan of Care Note [code = 90261-9] Goal Plan of Care Note [code = 87294-4] Goal Plan of Care Note [code = 28877-8] Goal Plan of Care Note [code = 80591-8] Goal Plan of Care Note [code = 39709-0] Goal Plan of Care Note [code = 98287-1] Goal Plan of Care Note [code = 81045-0] Goal Plan of Care Note [code = 75424-1] Goal Plan of Care Note [code = 34871-0] Goal Plan of Care Note [code = 64376-9] Goal Plan of Care Note [code = 28811-4] Goal Plan of Care Note [code = 16082-0] Goal Plan of Care Note [code = 34606-9] Goal Plan of Care Note [code = 32595-3] Goal Plan of Care Note [code = 19819-9] Goal Plan of Care Note [code = 76663-2] Goal Plan of Care Note [code = 35496-3] Goal Plan of Care Note [code = 52251-1] Goal Plan of Care Note [code = 38179-7] Goal Plan of Care Note [code = 87878-5] Goal Plan of Care Note [code = 38751-3] Goal Plan of Care Note [code = 65650-0] Goal Plan of Care Note [code = 87747-9] Goal Plan of Care Note [code = 65603-5] Goal Plan of Care Note [code = 75543-7] Goal Plan of Care Note [code = 24367-0] Goal Plan of Care Note [code = 41897-9] Goal Plan of Care Note [code = 58075-1] Goal Plan of Care Note [code = 37678-1] Goal Plan of Care Note [code = 08183-0] Goal Plan of Care Note [code = 72246-0] Goal Plan of Care Note [code = 25982-1] Goal Plan of Care Note [code = 32760-7] Goal Plan of Care Note [code = 25210-6] Goal Plan of Care Note [code = 16349-3] Goal Plan of Care Note [code = 88376-3] Goal Plan of Care Note [code = 91865-4] Goal Plan of Care Note [code = 84787-6] Goal Plan of Care Note [code = 62804-7] Goal Plan of Care Note [code = 78523-3] Goal Plan of Care Note [code = 61698-5] Goal Plan of Care Note [code = 97785-6] Goal Plan of Care Note [code = 01015-5] Goal Plan of Care Note [code = 10814-6] Goal Plan of Care Note [code = 34041-2] Goal Plan of Care Note [code = 83079-9] Goal Plan of Care Note [code = 49801-3] Goal Plan of Care Note [code = 59801-3] Goal Plan of Care Note [code = 03119-1] Goal Plan of Care Note [code = 13356-5] Goal Plan of Care Note [code = 99594-2] Goal Plan of Care Note [code = 01082-4] Goal Plan of Care Note [code = 20593-6] Goal Plan of Care Note [code = 06713-5] Goal Plan of Care Note [code = 20752-4] Goal Plan of Care Note [code = 48497-6] Encounters Start End Encounter Admission Attending Care Care Encounter Source Date/Time Date/Time Type Type Clinicians Facility Department ID 2022-04-16 2022-04-16 Outpatient SFA SFA [id number] 023 Thai 08:59:19 08:59:19 0116 F Robert 2022-04-05 2022-04-05 Outpatient SFA SFA 04797-2 023 Thai 11:12:48 11:12:48 0105 F Robert 2022-04-05 2022-04-05 Outpatient [id number]- [id number] b7 1604x1-4 00:00:00 00:00:00 Visit 3650-42ea 650-42ea-b -o25s-0oy 01e-1fb7b5 8w76y5412 3g5758 2022-03-14 2022-03-14 Outpatient SFA SFA 93101-1 022 Thai 16:14:51 16:14:51 1214 F Howe 2022-03-07 2022-03-07 Outpatient SFA SFA 19358-9 022 Thai 08:57:39 08:57:39 1207 F Howe 2022-03-06 2022-03-06 Outpatient [facility] SFA 06909-1 022 Thai 08:57:24 08:57:24 1206 [facility] 2022-03-06 2022-03-06 Orders Doctor GWEN 1.2.840.114 [id number] Univers 00:00:00 00:00:00 Only Unassigned, LINA 350.1.13.10 ity of [place] [facility] 4.2.7.2.686 Renzo as [id number] [place] [address] [address] 2022-03-06 2022-03-06 Outpatient [id number]- [id number] 497813-5 00:00:00 00:00:00 Visit 7948-4ece 948-4ece-b -m202-846 725-393fb5 fj499i96f 34c61e 2022-03-04 2022-03-04 Outpatient SFA SFA 19747-3 022 Thai 09:40:39 09:40:39 1204 F Robert 2022-03-04 2022-03-04 Outpatient 5o55962h- [id number] 3f 24751k-3 00:00:00 00:00:00 Visit 5q56-45q2 s52-90j2-6 -3mt2-9gr fc3-7df7dd 5dvln7596 ju7186 2022-03-02 2022-03-02 Outpatient SFA SFA 13447-7 022 Thai 08:08:33 08:08:33 1202 F Robert 2022-02-27 2022-02-27 Outpatient 9o3q6458- [id number] 9b 2z9212-7 00:00:00 00:00:00 Visit 5955-473f 955-473f-b -m5f1-oq1 7c2-ne10vj 1dy8h3906 8e2554 2022-02-26 2022-02-26 Outpatient SFA SFA 62388-7 022 Thai 14:53:39 14:53:39 1128 F Robert 2022-02-26 2022-02-26 Outpatient 4884xog1- [id number] 11 95fxc2-2 00:00:00 00:00:00 Visit 753b-4256 53b-4256-8 -3qy6-h28 aa5-k5776m 15v7397pt 5360ba 2022-02-24 2022-02-24 Emergency [facility] ERT [id number] Univers 04:55:00 06:12:00 , DOLORES gerardo of [facility] 2022-02-24 2022-02-24 Emergency [facility] 1.2.840.114 [id number] Univers 04:55:00 06:12:00 , Dolores YAN 350.1.13.10 i ty of [place] 4.2.7.2.686 [facility] [id number] [address] 2022-02-20 2022-02-20 Outpatient SFA SFA 01435-9 022 Thai 11:12:21 11:12:21 1122 F Robert 2022-02-20 2022-02-20 Outpatient c10844h8- [id number] a8 1625g1-b 00:00:00 00:00:00 Visit nk36-1yt0 r26-6bk0-4 -857d-6cd 57d-5tz698 923l0us6t a4ee5c 2022-02-15 2022-02-15 Outpatient 7w7c16fl- [id number] 3d 7f22rq-4 00:00:00 00:00:00 Visit 2fcc-405f fcc-405f-9 -71c1-810 4f8-67072i 25m671624 607880 5897-11-16 2022-02-14 Outpatient SFA SFA 45497-1 022 Thai 14:09:23 14:09:23 1116 F Robert 2022-02-14 2022-02-14 Outpatient 0187z393- [id number] 29 92g831-k 00:00:00 00:00:00 Visit q69g-24lr 69c-48ba-8 -4x59-74t y11-50s172 7039kmq1a 5cde0b 2022-02-06 2022-02-06 Outpatient SFA SFA 57355-7 022 Thai 10:02:54 10:02:54 1108 F Robert 2022-02-06 2022-02-06 Outpatient 0445z946- [id number] 26 12y698-0 00:00:00 00:00:00 Visit 6i01-8v14 m18-4u91-k -p0n1-84h 3a3-33e7qn 9guy0l5tu c7a7ab 2022-01-15 2022-01-15 Emergency X [facility] ERT [id number] Univers 04:57:00 06:53:[address] [facility] [place] [place] 2022-01-15 2022-01-15 Emergency [facility] 1.2.820.672 [id number] Univers 04:57:00 06:53:00 Rustam Hwang [place] 350.1.13.10 [facility] 4.2.7.2.686 [facility] [id number] [facility] [address] 2022-01-02 2022-01-02 Outpatient MAURY SFA 26289-1 022 Thai 09:09:54 09:09:54 1004 F Robert 2022-01-02 2022-01-02 Outpatient 9h6s3pnz- [id number] 2f 8t9jim-4 00:00:00 00:00:00 Visit 784c-4105 84c-4105-8 -6t65-1as k46-5hqd04 z08u7r965 p6n599 2021-12-26 2021-12-26 Outpatient 37zv2q3h- [id number] 70 qb7h5u-0 00:00:00 00:00:00 Visit 3fda-47a9 fda-47a9-b -q189-14l 352-41ee21 k578516ta 9444ab 2021-11-20 2021-11-20 GWEN Amanda 1.2.840.114 [id number] Univers 00:00:00 00:00:00 (Out) Humberto MILLS 350.1.13.10 it y of [facility] 4.2.7.2.686 Renzo as [id number] [facility] [address] 2021-10-30 2021-10-30 Outpatient n7587wy0- [id number] c7 056dr7-9 00:00:00 00:00:00 Visit 8br3-55np ad8-42bd-9 -9211-800 211-800c65 t5937vpz9 14fbe3 2021-10-03 2021-10-03 Outpatient 5m3j7599- [id number] 5d 1l6148-6 00:00:00 00:00:00 Visit 0049-42e3 049-42e3-8 -8699-e24 699-e24b68 j9889826e 16172q 2021-08-09 2021-08-09 Orders Doctor HIDALGO 1.2.840.114 [id number] Univers 00:00:00 00:00:00 Only Unassigned, LINA 350.1.13.10 ity of [place] [facility] 42.7.2.686 Renzo as [id number] [facility] [address] 2019-05-01 2019-05-03 Outside nullFlavo [facility] [id number] Memoria 19:12:13 05:59:59 Medical r Gastroenter 00 l Records ology Sugar Herm [facility] 2019-05-01 2019-05-03 Outside nullFlavo [facility] [id number] Memoria 19:12:13 05:59:59 Medical r Gastroenter 00 l Records ology Sugar Herm [facility] 2019-05-01 2019-05-02 Outpatient MG [facility] [id number] 13:12:13 23:59:59 00 2019-04-24 2019-04-25 Outpatient nullFlavo [facility] [id number] Memoria 17:00:00 05:59:59 r Gastroenter 00 l ology Sugar Herm [facility] 2019-04-24 2019-04-25 Outpatient nullFlavo [facility] [id number] Memoria 17:00:00 05:59:59 r Gastroenter 00 l ology Sugar Herm [facility] 2019-04-24 2019-04-24 Outpatient Alida, [facility] [id number] 11:00:00 23:59:59 Nadim Torey 00 2019-04-24 2019-04-24 Outpatient [facility] [id number] Memoria 11:00:00 11:00:00 00 l Jh 2019-04-03 2019-04-03 Outpatient Lokesh [facility] [id number] Univers 04:46:22 18:43:00 General acute hospital Results Test Description Test Time Test Comments Results Result Comments Source TSH, THIRD GENERATION 2022-04-17 05:59:26 Test Item Value Reference Range Interpretation Comme nts TSH, THIRD GENERATION (test code = 2821) 1.240 UIU/ML 0.400-4.100 FOLLICLE STIM [id number] 05:59:26 Test Item Value Reference Range Interpretation Comments FOLLICLE STIM 24.3 IU/L SEE BELOW EXPEC ALEX VALUES HORMONE (test code FOR FSH F OR FEMALES >17 = 2700) YEARS M ALES FEMALES >=18 YE ARS 1.5-12.4 IU/L F OLLICULAR 3.5-12.5 IU/L M ID-CYCLE PEAK 4.7-21.5 I U/L LUTEAL PHASE 1.7-7.7 I U/L POSTMENOPAUSAL 25.8-134.8 IU/L LIPID [id number] 03:20:31 Test Item Value Reference Range Interpretation [...] MOREINFORMATION , SEE CLIENT ANNOUNCE MENT AT [email or web address] RISK RATIO LDL/HDL 2.33 RATIO <3.22 (test code = 2238) [id number] 03:19:56 Test Item Value Reference Range Interpretation Comments LITHIUM (test code 0.33 MEQ/L 0.60-1.20 L UNLESS O THERWISE = 2038) INDICATED, ALL TESTING PERFORMED [facility] PATHOLOGY [place]. [address] [place] [address] 7875 4 LABORATORY DIRE CTOR: TANNER HOPKINS M.D. CLIA NUMBER [id number] [place] [id number] OCCULT BLD,FECAL,IMMUNOASSAY [id number] 12:54:25 Test Item Value Reference Range Interpretation Comments OCCULT BLD, FECAL NEGATIVE NEGATIVE UNLESS OT HERWISE (test code = 54441) INDICATE D, ALL TESTING PERFORMED [facility] PATHOLOGY [employer] [address] [place] [address] [facility] DIRECTOR: TANNER VELASQUEZ M.D. CLIA NUMBER [id number] CAP ACCREDITATION N O. [id number] OCCULT BLD,FECAL,IMMUNOASSAY [id number] 00:00:00 Test Item Value Reference Range Interpretation Comments OCCULT BLD, FECAL (test code = NEGATIVE 30342) OCCULT BLD,FECAL,IMMUNOASSAY [id number] 00:00:00 Test Item Value Reference Range Interpretation Comments OCCULT BLD, FECAL (test code = NEGATIVE 04496) OCCULT BLD,FECAL,IMMUNOASSAY [id number] 00:00:00 Test Item Value Reference Range Interpretation Comments OCCULT BLD, FECAL (test code = NEGATIVE 38454) [id number] 00:00:00 Test Item Value Reference Range Interpretation Comments LITHIUM (test code = 2038) 0.48 MEQ/L [id number] 00:00:00 Test Item Value Reference Range Interpretation Comments LITHIUM (test code = 2038) 0.48 MEQ/L [id number] 00:00:00 Test Item Value Reference Range Interpretation Comments LITHIUM (test code = 2038) 0.48 MEQ/L CBC W/AUTO [id number] 00:00:00 Test Item Value Reference Range Interpretation [...] NUCLEATED RBCS (test code = 0.00 K/UL 60464) CBC W/AUTO [id number] 00:00:00 Test Item Value Reference Range Interpretation [...] NUCLEATED RBCS (test code = 0.00 K/UL 16641) CBC W/AUTO [id number] 00:00:00 Test Item Value Reference Range Interpretation [...] NUCLEATED RBCS (test code = 0.00 K/UL 26432) COMPREHENSIVE METABOLIC [id number] 00:00:00 Test Item Value Reference Range Interpretation Comments GLUCOSE (test code = 2217) 96 MG/DL BUN (test code = 2208) 21 MG/DL CREATININE (test code = 2214) 0.88 MG/DL eGFR (2020 CKD-EPI) (test code 78 ML/MIN/1.73 = 89512) CALC BUN/CREAT (test code = 24 RATIO 2235) SODIUM (test code = 2231) 138 MEQ/L POTASSIUM (test code = 2228) 4.2 MEQ/L CHLORIDE (test code = 2215) 101 MEQ/L CARBON DIOXIDE (test code = 28 MEQ/L 2206) CALCIUM (test code = 2209) 11.2 MG/DL PROTEIN, TOTAL (test code = 6.6 G/DL 222) ALBUMIN (test code = 2201) 4.2 G/DL CALC GLOBULIN (test code = 2.4 G/DL 2240) CALC A/G RATIO (test code = 1.8 RATIO 2234) BILIRUBIN, TOTAL (test code = 1.0 MG/DL 220) ALKALINE PHOSPHATASE (test 102 U/L code = 2204) AST (test code = 2218) 31 U/L ALT (test code = 2219) 126 U/L COMPREHENSIVE METABOLIC [id number] 00:00:00 Test Item Value Reference Range Interpretation Comments GLUCOSE (test code = 2217) 96 MG/DL BUN (test code = 2208) 21 MG/DL CREATININE (test code = 2214) 0.88 MG/DL eGFR (2020 CKD-EPI) (test code 78 ML/MIN/1.73 = 34897) CALC BUN/CREAT (test code = 24 RATIO 5) SODIUM (test code = 2231) 138 MEQ/L [...] RATIO 2233) BILIRUBIN, TOTAL (test code = 1.0 MG/DL 2206) ALKALINE PHOSPHATASE (test 102 U/L code = 2204) AST (test code = 2218) 31 U/L ALT (test code = 2219) 126 U/L HEMOGLOBIN [id number] 00:00:00 Test Item Value Reference Range Interpretation Comments HEMOGLOBIN A1c (test code = 41174) 5.6 % HEMOGLOBIN [id number] 00:00:00 Test Item Value Reference Range Interpretation Comments HEMOGLOBIN A1c (test code = 40862) 5.6 % HEMOGLOBIN [id number] 00:00:00 Test Item Value Reference Range Interpretation Comments HEMOGLOBIN A1c (test code = 91602) 5.6 % TROPONIN [id number] 12:00:06 Test Item Value Reference Interpretation Comments Range TROPONIN I (test 0.009 ng/mL See_Comment [Automated code = [id number]) message] The system which generated this result [...] biotin. Lab Interpretation Normal (test code = 28100-7) [facility]. METABOLIC PANEL (23109)2022-02-24 11:48:40 Test Item Value Reference Range Interpretation Comments NA (test code = 138 mmol/L 135-145 [id number]) K (test code = 4.9 mmol/L 3.5-5.0 3904392274) CL (test code = 104 mmol/L 98-108 4996434006) CO2 TOTAL (test code = 24 mmol/L 23-31 3921955822) AGAP (test code = 2-16 6521362605) BUN (test code = 15 mg/dL 7-23 9954649573) GLUCOSE (test code = 106 mg/dL 70-110 1107908166) CREATININE (test code = 0.75 mg/dL 0.50-1.04 7941479043) TOTAL BILI (test code = 0.8 mg/dL 0.1-1.7 1612857252) CALCIUM (test code = 10.7 mg/dL 8.6-10.6 H [id number]) T PROTEIN (test code = 7.7 g/dL 6.3-8.2 3133017443) ALBUMIN (test code = 4.8 g/dL 3.5-5.0 6797803668) ALK PHOS (test code = 100 U/L 34-122 2158950590) ALTv (test code = 39 U/L 5-35 H 1742-6) AST(SGOT) (test code = 35 U/L 13-40 9419229406) eGFR (test code = mL/min/1.73m2 5401891269) OFELIA (test code = OFELIA) Association of [...] tests). Lab Interpretation Abnormal (test code = 78908-1) [id number]:48:25 Test Item Value Reference Range Interpretation Comments LIPASE (test code = 1763607820) 41 U/L 0-220 Lab Interpretation (test code = Normal 09076-7) [facility] 11:43:22 Test Item Value Reference Range Interpretation Comments APTT Patient (test See_Comment [Automat ed code = 3173-2) message] The system which generated this result transmitted reference range : 23 - 38 Seconds . The reference range was not used to interpr et this result as normal/abnormal . OFELIA (test code = OFELIA) The [facility] patient population mean normal value for aPTT is 30 seconds. Lab Interpretation Normal (test code = 69233-5) [facility] / [id number] 11:41:21 Test Item Value Reference Range Interpretation [...] tions. Lab Interpretation (test Normal code = 40024-9) [facility] WITH [id number] 11:18:58 Test Item Value Reference Range Interpretation [...] RDW-SD (test code = 45.1 fL 39.0-49.9 59581-6) RDW-CV (test code = 13.7 % 12.0-15.5 788-0) PLT (test code = See_Comment [Automated 777-3) message] The sy stem which generated this result transmitted reference range : 166 - 358 10*3/ ?L. The reference r emilee was not used to interpret this result as normal/abnormal . MPV (test code = 9.6 fL 9.5-12.9 45293-3) NRBC/100 WBC (test See_Comment [Automat ed code = 4793934106) message] The system which generated this result transmitted reference range : 0.0 - 10.0 /100 WBCs. The refer ence range was not u sed to interpret th is result as normal/abnormal . NRBC x10^3 (test code See_Comment [Auto mated = 0121971848) message] The s ystem which generated this result transmitted reference range : 10*3/?L. The reference range was not used to interpret this result as normal/abnormal . GRAN MAT (NEUT) % 76.3 % (test code = 770-8) IMM GRAN % (test code 0.40 % = 6970944133) LYMPH % (test code = 12.8 % 736-9) MONO % (test code = 9.2 % 5905-5) EOS % (test code = 0.7 % 713-8) BASO % (test code = 0.6 % 706-2) GRAN MAT x10^3(ANC) 5.48 10*3/uL 1.88-7.09 (test code = 6195669363) IMM GRAN x10^3 (test 0.03 10*3/uL 0.00-0.06 code = 8575071454) LYMPH x10^3 (test code 0.92 10*3/uL 1.32-3.29 L = 731-0) MONO x10^3 (test code 0.66 10*3/uL 0.33-0.92 = 742-7) EOS x10^3 (test code = 0.05 10*3/uL 0.03-0.39 711-2) BASO x10^3 (test code 0.04 10*3/uL 0.01-0.07 = 704-7) Lab Interpretation Abnormal (test code = 61659-3) [facility] TEST, THINPREP, [id number] 00:00:00 Test Item Value Reference Range Interpretation Comments SOURCE: (test code = 8001) Cervical/Endocervic al SLIDES: (test code = 8011) 1 LMP: (test code = 8021) SEE NOTE SPECIMEN ADEQUACY: (test (NOTE) code = 84512) INTERPRETATION: (test code LSIL/EPITH. = 90032) ABNORMALITY; SEE BELOW OTHER COMMENTS: (test code (NOTE) = 8081) MUNITIONS HANDLER: (test Nazia Gibson code = 8101) LIGIA Longoria(ASCP)IAC PATHOLOGIST INTERPRETATION Carmen Andrade, BY: (test code = 8122) MLeo LOCATION: (test code = (NOTE) 63611) CPT: (test code = 8140) (NOTE) PAP TEST, THINPREP, [id number] 00:00:00 Test Item Value Reference Range Interpretation Comments SOURCE: (test code = 8001) Cervical/Endocervic al SLIDES: (test code = 8011) 1 LMP: (test code = 8021) SEE NOTE SPECIMEN ADEQUACY: (test (NOTE) code = 62013) INTERPRETATION: (test code LSIL/EPITH. = 70599) ABNORMALITY; SEE BELOW OTHER COMMENTS: (test code (NOTE) = 8081) MUNITIONS HANDLER: (test Nazia Gibson code = 8101) Longoria,CT(ASCP)IAC PATHOLOGIST INTERPRETATION Carmen Andrade, BY: (test code = 8122) M.D. LOCATION: (test code = (NOTE) 58367) CPT: (test code = 8140) (NOTE) PAP TEST, THINPREP, [id number] 00:00:00 Test Item Value Reference Range Interpretation Comments SOURCE: (test code = 8001) Cervical/Endocervic al SLIDES: (test code = 8011) 1 LMP: (test code = 8021) SEE NOTE SPECIMEN ADEQUACY: (test (NOTE) code = 29539) INTERPRETATION: (test code LSIL/EPITH. = 54948) ABNORMALITY; SEE BELOW OTHER COMMENTS: (test code (NOTE) = 8081) MUNITIONS HANDLER: (test Nazia Gibson code = 8101) Longoria,CT(ASCP)IAC PATHOLOGIST INTERPRETATION Carmen Andrade, BY: (test code = 8122) M.D. LOCATION: (test code = (NOTE) 06743) CPT: (test code = 8140) (NOTE) PAP TEST, THINPREP, [id number] 00:00:00 Test Item Value Reference Range Interpretation Comments SOURCE: (test code = 8001) Cervical/Endocervic al SLIDES: (test code = 8011) 1 LMP: (test code = 8021) SEE NOTE SPECIMEN ADEQUACY: (test (NOTE) code = 24407) INTERPRETATION: (test code LSIL/EPITH. = 31914) ABNORMALITY; SEE BELOW OTHER COMMENTS: (test code (NOTE) = 8081) MUNITIONS HANDLER: (test Nazia Gibson code = 8101) Longoria,CT(ASCP)IAC PATHOLOGIST INTERPRETATION Carmen Lupe, BY: (test code = 8122) M.D. LOCATION: (test code = (NOTE) 04360) CPT: (test code = 8140) (NOTE) PAP TEST, THINPREP, [id number] 00:00:00 Test Item Value Reference Range Interpretation Comments SOURCE: (test code = 8001) Cervical/Endocervic al SLIDES: (test code = 8011) 1 LMP: (test code = 8021) SEE NOTE SPECIMEN ADEQUACY: (test (NOTE) code = 42173) INTERPRETATION: (test code LSIL/EPITH. = 21499) ABNORMALITY; SEE BELOW OTHER COMMENTS: (test code (NOTE) = 8081) MUNITIONS HANDLER: (test Nazia Gibson code = 8101) SwatiCT(ASCP)IAC PATHOLOGIST INTERPRETATION Carmen Andrade BY: (test code = 8122) [place] LOCATION: (test code = (NOTE) 83670) CPT: (test code = 8140) (NOTE) PAP TEST, THINPREP, [id number] 00:00:00 Test Item Value Reference Range Interpretation Comments SOURCE: (test code = 8001) Cervical/Endocervic al SLIDES: (test code = 8011) 1 LMP: (test code = 8021) SEE NOTE SPECIMEN ADEQUACY: (test (NOTE) code = 30928) INTERPRETATION: (test code LSIL/EPITH. = 85165) ABNORMALITY; SEE BELOW OTHER COMMENTS: (test code (NOTE) = 8081) MUNITIONS HANDLER: (test Nazia Gibson code = 8101) SwatiCT(ASCP)IAC PATHOLOGIST INTERPRETATION Carmen Andrade BY: (test code = 8122) [place] LOCATION: (test code = (NOTE) 54495) CPT: (test code = 8140) (NOTE) PAP TEST, THINPREP, [id number] 00:00:00 Test Item Value Reference Range Interpretation Comments SOURCE: (test code = 8001) Cervical/Endocervic al SLIDES: (test code = 8011) 1 LMP: (test code = 8021) SEE NOTE SPECIMEN ADEQUACY: (test (NOTE) code = 14476) INTERPRETATION: (test code LSIL/EPITH. = 85260) ABNORMALITY; SEE BELOW OTHER COMMENTS: (test code (NOTE) = 8081) MUNITIONS HANDLER: (test Nazia Gibson code = 8101) Longoria,CT(ASCP)[facility] PATHOLOGIST INTERPRETATION Carmen [facility], BY: (test code = 8122) M.D. LOCATION: (test code = (NOTE) 44133) CPT: (test code = 8140) (NOTE) PAP TEST, THINPREP, [id number] 00:00:00 Test Item Value Reference Range Interpretation Comments SOURCE: (test code = 8001) Cervical/Endocervic al SLIDES: (test code = 8011) 1 LMP: (test code = 8021) SEE NOTE SPECIMEN ADEQUACY: (test (NOTE) code = 55652) INTERPRETATION: (test code LSIL/EPITH. = 85814) ABNORMALITY; SEE BELOW OTHER COMMENTS: (test code (NOTE) = 8081) MUNITIONS HANDLER: (test Nazia Gibson code = 8101) Longoria,CT(ASCP)[facility] PATHOLOGIST INTERPRETATION Carmen [facility], BY: (test code = 8122) M.D. LOCATION: (test code = (NOTE) 11076) CPT: (test code = 8140) (NOTE) PAP TEST, THINPREP, [id number] 00:00:00 Test Item Value Reference Range Interpretation Comments SOURCE: (test code = 8001) Cervical/Endocervic al SLIDES: (test code = 8011) 1 LMP: (test code = 8021) SEE NOTE SPECIMEN ADEQUACY: (test (NOTE) code = 38102) INTERPRETATION: (test code LSIL/EPITH. = 75491) ABNORMALITY; SEE BELOW OTHER COMMENTS: (test code (NOTE) = 8081) MUNITIONS HANDLER: (test Nazia Gibson code = 8101) Longoria,CT(ASCP)[facility] PATHOLOGIST INTERPRETATION [facility], BY: (test code = 8122) M.D. LOCATION: (test code = (NOTE) 10553) CPT: (test code = 8140) (NOTE) PAP TEST, THINPREP, [id number] 00:00:00 Test Item Value Reference Range Interpretation Comments SOURCE: (test code = 8001) Cervical/Endocervic al SLIDES: (test code = 8011) 1 LMP: (test code = 8021) SEE NOTE SPECIMEN ADEQUACY: (test (NOTE) code = 48503) INTERPRETATION: (test code LSIL/EPITH. = 42729) ABNORMALITY; SEE BELOW OTHER COMMENTS: (test code (NOTE) = 8081) MUNITIONS HANDLER: (test Nazia Gibson code = 8101) Longoria,CT(ASCP)IAC PATHOLOGIST INTERPRETATION Carmen Andrade BY: (test code = 8122) M.D. LOCATION: (test code = (NOTE) 28155) CPT: (test code = 8140) (NOTE) PAP TEST, THINPREP, [id number] 00:00:00 Test Item Value Reference Range Interpretation Comments SOURCE: (test code = 8001) Cervical/Endocervic al SLIDES: (test code = 8011) 1 LMP: (test code = 8021) SEE NOTE SPECIMEN ADEQUACY: (test (NOTE) code = 86092) INTERPRETATION: (test code LSIL/EPITH. = 53851) ABNORMALITY; SEE BELOW OTHER COMMENTS: (test code (NOTE) = 8081) MUNITIONS HANDLER: (test Nazia Gibson code = 8101) Longoria,CT(ASCP)IAC PATHOLOGIST INTERPRETATION Carmen Andrade BY: (test code = 8122) M.D. LOCATION: (test code = (NOTE) 51741) CPT: (test code = 8140) (NOTE) PAP TEST, THINPREP, [id number] 00:00:00 Test Item Value Reference Range Interpretation Comments SOURCE: (test code = 8001) Cervical/Endocervic al SLIDES: (test code = 8011) 1 LMP: (test code = 8021) SEE NOTE SPECIMEN ADEQUACY: (test (NOTE) code = 60326) INTERPRETATION: (test code LSIL/EPITH. = 93845) ABNORMALITY; SEE BELOW OTHER COMMENTS: (test code (NOTE) = 8081) MUNITIONS HANDLER: (test Nazia Gibson code = 8101) Longoria,CT(ASCP)[facility] PATHOLOGIST INTERPRETATION Carmen Andrade BY: (test code = 8122) M.D. LOCATION: (test code = (NOTE) 32527) CPT: (test code = 8140) (NOTE) PAP TEST, THINPREP, [id number] 00:00:00 Test Item Value Reference Range Interpretation Comments SOURCE: (test code = 8001) Cervical/Endocervic al SLIDES: (test code = 8011) 1 LMP: (test code = 8021) SEE NOTE SPECIMEN ADEQUACY: (test (NOTE) code = 16387) INTERPRETATION: (test code LSIL/EPITH. = 20209) ABNORMALITY; SEE BELOW OTHER COMMENTS: (test code (NOTE) = 8081) MUNITIONS HANDLER: (test Nazia Gibson code = 8101) Longoria,CT(ASCP)IAC PATHOLOGIST INTERPRETATION [facility], BY: (test code = 8122) M.D. LOCATION: (test code = (NOTE) 53666) CPT: (test code = 8140) (NOTE) PAP TEST, THINPREP, [id number] 00:00:00 Test Item Value Reference Range Interpretation Comments SOURCE: (test code = 8001) Cervical/Endocervic al SLIDES: (test code = 8011) 1 LMP: (test code = 8021) SEE NOTE SPECIMEN ADEQUACY: (test (NOTE) code = 13944) INTERPRETATION: (test code LSIL/EPITH. = 53116) ABNORMALITY; SEE BELOW OTHER COMMENTS: (test code (NOTE) = 8081) MUNITIONS HANDLER: (test Nazia Gibson code = 8101) Longoria,CT(ASCP)IAC PATHOLOGIST INTERPRETATION Carmen [facility], BY: (test code = 8122) M.D. LOCATION: (test code = (NOTE) 10667) CPT: (test code = 8140) (NOTE) PAP TEST, THINPREP, [id number] 00:00:00 Test Item Value Reference Range Interpretation Comments SOURCE: (test code = 8001) Cervical/Endocervic al SLIDES: (test code = 8011) 1 LMP: (test code = 8021) SEE NOTE SPECIMEN ADEQUACY: (test (NOTE) code = 15937) INTERPRETATION: (test code LSIL/EPITH. = 36322) ABNORMALITY; SEE BELOW OTHER COMMENTS: (test code (NOTE) = 8081) MUNITIONS HANDLER: (test Nazia Gibson code = 8101) Longoria,CT(ASCP)IAC PATHOLOGIST INTERPRETATION Carmen Listrom, BY: (test code = 8122) M.D. LOCATION: (test code = (NOTE) 59048) CPT: (test code = 8140) (NOTE) PAP TEST, THINPREP, [id number] 00:00:00 Test Item Value Reference Range Interpretation Comments SOURCE: (test code = 8001) Cervical/Endocervic al SLIDES: (test code = 8011) 1 LMP: (test code = 8021) SEE NOTE SPECIMEN ADEQUACY: (test (NOTE) code = 98143) INTERPRETATION: (test code LSIL/EPITH. = 41926) ABNORMALITY; SEE BELOW OTHER COMMENTS: (test code (NOTE) = 8081) MUNITIONS HANDLER: (test Nazia Gibson code = 8101) SwatiCT(ASCP)IAC PATHOLOGIST INTERPRETATION Carmen Andrade BY: (test code = 8122) [place] LOCATION: (test code = (NOTE) 68358) CPT: (test code = 8140) (NOTE) HPV HIGH RISK WITH GENOTYPE, [id number] 00:00:00 Test Item Value Reference Range Interpretation Comments HPV HIGH RISK INTERP (test code = POSITIVE 67772) HPV 16 (test code = 76485) NEGATIVE HPV 18 (test code = 67923) NEGATIVE HPV, HR, OTHER GENOTYPES (test code POSITIVE = 71068) HPV HIGH RISK WITH GENOTYPE, [id number] 00:00:00 Test Item Value Reference Range Interpretation Comments HPV HIGH RISK INTERP (test code = POSITIVE 23238) HPV 16 (test code = 59674) NEGATIVE HPV 18 (test code = 44661) NEGATIVE HPV, HR, OTHER GENOTYPES (test code POSITIVE = 79154) HPV HIGH RISK WITH GENOTYPE, [id number] 00:00:00 Test Item Value Reference Range Interpretation Comments HPV HIGH RISK INTERP (test code = POSITIVE 14770) HPV 16 (test code = 21516) NEGATIVE HPV 18 (test code = 45524) NEGATIVE HPV, HR, OTHER GENOTYPES (test code POSITIVE = 60968) HPV HIGH RISK WITH GENOTYPE, [id number] 00:00:00 Test Item Value Reference Range Interpretation Comments HPV HIGH RISK INTERP (test code = POSITIVE 11515) HPV 16 (test code = 00082) NEGATIVE HPV 18 (test code = 74087) NEGATIVE HPV, HR, OTHER GENOTYPES (test code POSITIVE = 37855) HPV HIGH RISK WITH GENOTYPE, [id number] 00:00:00 Test Item Value Reference Range Interpretation Comments HPV HIGH RISK INTERP (test code = POSITIVE 66123) HPV 16 (test code = 69040) NEGATIVE HPV 18 (test code = 15676) NEGATIVE HPV, HR, OTHER GENOTYPES (test code POSITIVE = 86084) HPV HIGH RISK WITH GENOTYPE, [id number] 00:00:00 Test Item Value Reference Range Interpretation Comments HPV HIGH RISK INTERP (test code = POSITIVE 56870) HPV 16 (test code = 78507) NEGATIVE HPV 18 (test code = 76811) NEGATIVE HPV, HR, OTHER GENOTYPES (test code POSITIVE = 04101) HPV HIGH RISK WITH GENOTYPE, [id number] 00:00:00 Test Item Value Reference Range Interpretation Comments HPV HIGH RISK INTERP (test code = POSITIVE 05277) HPV 16 (test code = 01651) NEGATIVE HPV 18 (test code = 77270) NEGATIVE HPV, HR, OTHER GENOTYPES (test code POSITIVE = 32916) HPV HIGH RISK WITH GENOTYPE, [id number] 00:00:00 Test Item Value Reference Range Interpretation Comments HPV HIGH RISK INTERP (test code = POSITIVE 59523) HPV 16 (test code = 16537) NEGATIVE HPV 18 (test code = 87817) NEGATIVE HPV, HR, OTHER GENOTYPES (test code POSITIVE = 38909) HPV HIGH RISK WITH GENOTYPE, [id number] 00:00:00 Test Item Value Reference Range Interpretation Comments HPV HIGH RISK INTERP (test code = POSITIVE 33855) HPV 16 (test code = 77822) NEGATIVE HPV 18 (test code = 42630) NEGATIVE HPV, HR, OTHER GENOTYPES (test code POSITIVE = 80558) HPV HIGH RISK WITH GENOTYPE, [id number] 00:00:00 Test Item Value Reference Range Interpretation Comments HPV HIGH RISK INTERP (test code = POSITIVE 32297) HPV 16 (test code = 92279) NEGATIVE HPV 18 (test code = 56190) NEGATIVE HPV, HR, OTHER GENOTYPES (test code POSITIVE = 15205) HPV HIGH RISK WITH GENOTYPE, [id number] 00:00:00 Test Item Value Reference Range Interpretation Comments HPV HIGH RISK INTERP (test code = POSITIVE 39853) HPV 16 (test code = 30426) NEGATIVE HPV 18 (test code = 76755) NEGATIVE HPV, HR, OTHER GENOTYPES (test code POSITIVE = 91617) HPV HIGH RISK WITH GENOTYPE, [id number] 00:00:00 Test Item Value Reference Range Interpretation Comments HPV HIGH RISK INTERP (test code = POSITIVE 48375) HPV 16 (test code = 78121) NEGATIVE HPV 18 (test code = 21191) NEGATIVE HPV, HR, OTHER GENOTYPES (test code POSITIVE = 17709) HPV HIGH RISK WITH GENOTYPE, [id number] 00:00:00 Test Item Value Reference Range Interpretation Comments HPV HIGH RISK INTERP (test code = POSITIVE 04486) HPV 16 (test code = 48950) NEGATIVE HPV 18 (test code = 68863) NEGATIVE HPV, HR, OTHER GENOTYPES (test code POSITIVE = 22517) HPV HIGH RISK WITH GENOTYPE, [id number] 00:00:00 Test Item Value Reference Range Interpretation Comments HPV HIGH RISK INTERP (test code = POSITIVE 62060) HPV 16 (test code = 72594) NEGATIVE HPV 18 (test code = 06599) NEGATIVE HPV, HR, OTHER GENOTYPES (test code POSITIVE = 34312) HPV HIGH RISK WITH GENOTYPE, [id number] 00:00:00 Test Item Value Reference Range Interpretation Comments HPV HIGH RISK INTERP (test code = POSITIVE 59851) HPV 16 (test code = 17438) NEGATIVE HPV 18 (test code = 00072) NEGATIVE HPV, HR, OTHER GENOTYPES (test code POSITIVE = 89657) HPV HIGH RISK WITH GENOTYPE, [id number] 00:00:00 Test Item Value Reference Range Interpretation Comments HPV HIGH RISK INTERP (test code = POSITIVE 97426) HPV 16 (test code = 23506) NEGATIVE HPV 18 (test code = 23548) NEGATIVE HPV, HR, OTHER GENOTYPES (test code POSITIVE = 10853) N-TERMINAL [id number] 11:32:35 Test Item Value Reference Range Interpretation Comments NT-proBNP (test code 422 pg/mL See_Comment H [Autom ated = 7452124232) message] The system which generated this result transmitted reference range : <=125. The reference range was not used to interpret this result as normal/abnormal . OFELIA (test code = OFELIA) Biotin has been reported to cause a negative bias, interpret results relative to patient's use of biotin. Lab Interpretation Abnormal (test code = 09549-2) [facility] [id number] 10:51:52 Test Item Value Reference Interpretation Comments Range TROPONIN I (test 0.011 ng/mL See_Comment [Automated code = 2361227020) message] The system which generated this result [...] biotin. Lab Interpretation Normal (test code = 79037-2) [facility]. METABOLIC PANEL (60370)2022-01-15 10:40:31 Test Item Value Reference Range Interpretation Comments NA (test code = 140 mmol/L 135-145 7015999535) K (test code = 3.7 mmol/L 3.5-5 0879332611) CL (test code = 107 mmol/L 98-108 0407696642) CO2 TOTAL (test code = 23 mmol/L 23-31 9476034118) AGAP (test code = 2-16 4034907083) BUN (test code = 11 mg/dL 7-23 3721594540) GLUCOSE (test code = 146 mg/dL 70-110 H 0832978306) CREATININE (test code = 0.65 mg/dL 0.5-1.04 9379353876) TOTAL BILI (test code = 0.7 mg/dL 0.1-1.9 1006659653) CALCIUM (test code = 10.6 mg/dL 8.6-10.6 0681388147) T PROTEIN (test code = 6.5 g/dL 6.3-8.2 4680148001) ALBUMIN (test code = 4.2 g/dL 3.5-5 3298609157) ALK PHOS (test code = 95 U/L 34-122 3676665733) ALTv (test code = 51 U/L 5-35 H 1742-6) AST(SGOT) (test code = 34 U/L 13-40 8658667991) eGFR (test code = mL/min/1.73m2 8571364576) OFELIA (test code = OFELIA) Association of [...] tests). Lab Interpretation Abnormal (test code = 15651-2) [facility] [id number] 10:39:50 Test Item Value Reference Range Interpretation Comments LIPASE (test code = 3819585080) 35 U/L 0-220 Lab Interpretation (test code = Normal 04660-4) [facility] 10:32:27 Test Item Value Reference Range Interpretation Comments APTT Patient (test See_Comment [Automat ed code = 3173-2) message] The system which generated this result transmitted reference range : 23 - 38 Seconds . The reference range was not used to interpr et this result as normal/abnormal . OFELIA (test code = OFELIA) The [facility] patient population mean normal value for aPTT is 30 seconds. Lab Interpretation Normal (test code = 29712-0) [facility] / [id number] 10:30:30 Test Item Value Reference Range Interpretation Comments PROTIME PATIENT (test See_Comment [Auto mated message] code = 5964-2) The system [facility] generated this result transmitted ref erence range: 12.0 - 1 4.7 Seconds. The re ference range was not u sed to interpret this result as normal/abnor mal. INR (test code = 6301-6) Nor mal INR <1.1; Warfarin Therap eutic range 2.0 to 3. 0 or 2.5 to 3.5, dep ending upon the indica tions. Lab Interpretation (test Normal code = 48364-2) [facility] CenterCB WITH [id number] 10:12:46 Test Item Value Reference Range Interpretation Comments WBC (test code = See_Comment [Automated message] 8290-2) The system [employer] generated this result transmitted ref erence range: 4.30 - 1 1.10 10*3/?L. The re ference range was not u sed to interpret this result as normal/abnor mal. RBC (test code = See_Comment [Automated message] 249-8) The system [employer] generated this result transmitted ref erence range: [...] RDW-SD (test code 42.5 fL 39-49.9 = 35706-4) RDW-CV (test code 12.9 % 12-15.5 = 788-0) PLT (test code = See_Comment [Automated message] 557-3) The system whic h generated this result transmitted ref erence range: 166 - 35 8 10*3/?L. The re ference range was not u sed to interpret this result as normal/abnor mal. MPV (test code = 9.6 fL 9.5-12.9 68095-8) NRBC/100 WBC (test See_Comment [Automat ed message] code = 3609834197) The syste m which generated this result transmitted ref erence range: 0.0 - 10 .0 /100 WBCs. The refer ence range was not u sed to interpret this result as normal/abnor mal. NRBC x10^3 (test See_Comment [Automated message] code = 7498912209) The syste m which generated this result transmitted ref erence range: 10*3/?L. The reference range was not used to interpr et this result as normal/abnormal . GRAN MAT (NEUT) % 62.1 % (test code = 770-8) IMM GRAN % (test 0.30 % code = 6011541309) LYMPH % (test code 28.9 % = 736-9) MONO % (test code 5.8 % = 5905-5) EOS % (test code = 2.3 % 713-8) BASO % (test code 0.6 % = 706-2) GRAN MAT 4.27 10*3/uL 1.88-7.09 x10^3(ANC) (test code = 4050827317) IMM GRAN x10^3 0-0.06 (test code = 3175479144) LYMPH x10^3 (test 1.99 10*3/uL 1.32-3.29 code = 731-0) MONO x10^3 (test 0.40 10*3/uL 0.33-0.92 code = 742-7) EOS x10^3 (test 0.16 10*3/uL 0.03-0.39 code = 711-2) BASO x10^3 (test 0.04 10*3/uL 0.01-0.07 code = 704-7) [facility]BREATH)2022-01-03 15:07:57 Test Item Value Reference Range Interpretation Comments H. PYLORI (BREATH) NEGATIVE NEGATIVE UNLESS O THERWISE (test code = 72647) INDICATE D, ALL TESTING PERFORMED [facility] [employer] [facility]. [address] [place] [address] JERROD VARNER DIRECTOR: TANNER VELASQUEZ M.D. CLIA NUMBER [id number] CAP ACCREDITATION N O. [id number] ALTMAN (Sm) [id number] 05:38:15 Test Item Value Reference Range Interpretation Comments ALTMAN (Sm) ANTIBODY (test code = <0.2 AI <1.0 54761) SCL-70 [id number] 05:38:15 Test Item Value Reference Range Interpretation Comments SCL-70 ANTIBODY (test code = 4606) <0.2 AI <1.0 SJOGREN'S SS-A AND SS-B [id number] 05:38:15 Test Item Value Reference Range Interpretation Comments SJOGREN'S SS-A <0.2 AI <1.0 ANTIBODY (test code = 18449) SJOGREN'S SS-B <0.2 AI <1.0 UNLESS OTHER ROTH ANTIBODY (test code = INDICA ALEX, ALL TESTING 64693) PERFORMED [facility] [employer], [facility]. [address] [place] [address] JERROD VARNER DIRECTOR: [place] HUTSONIA NUMBER [id number] CAP ACCREDITATION N O. [id number] ALTMAN (Sm) [id number] 00:00:00 Test Item Value Reference Range Interpretation Comments ALTMAN (Sm) ANTIBODY (test code = <0.2 AI 31778) ALTMAN (Sm) [id number] 00:00:00 Test Item Value Reference Range Interpretation Comments ALTMAN (Sm) ANTIBODY (test code = <0.2 AI 57807) H. PYLORI (BREATH)2022-01-03 00:00:00 Test Item Value Reference Range Interpretation Comments H. PYLORI (BREATH) (test code = NEGATIVE 40384) H. PYLORI (BREATH)2022-01-03 00:00:00 Test Item Value Reference Range Interpretation Comments H. PYLORI (BREATH) (test code = NEGATIVE 18170) SCL-70 [id number] 00:00:00 Test Item Value Reference Range Interpretation Comments SCL-70 ANTIBODY (test code = 4606) <0.2 AI SCL-70 [id number] 00:00:00 Test Item Value Reference Range Interpretation Comments SCL-70 ANTIBODY (test code = 4606) <0.2 AI SCL-70 [id number] 00:00:00 Test Item Value Reference Range Interpretation Comments SCL-70 ANTIBODY (test code = 4606) <0.2 AI [id number] 00:00:00 Test Item Value Reference Range Interpretation Comments SJOGREN'S SS-A ANTIBODY (test code = <0.2 AI 72831) SJOGREN'S SS-B ANTIBODY (test code = <0.2 AI 63597) [id number] 00:00:00 Test Item Value Reference Range Interpretation Comments SJOGREN'S SS-A ANTIBODY (test code = <0.2 AI 20337) SJOGREN'S SS-B ANTIBODY (test code = <0.2 AI 97240) H. PYLORI (BREATH)2022-01-03 00:00:00 Test Item Value Reference Range Interpretation Comments H. PYLORI (BREATH) (test code = NEGATIVE 45833) H. PYLORI (BREATH)2022-01-03 00:00:00 Test Item Value Reference Range Interpretation Comments H. PYLORI (BREATH) (test code = NEGATIVE 92731) ALTMAN (Sm) [id number] 00:00:00 Test Item Value Reference Range Interpretation Comments ALTMAN (Sm) ANTIBODY (test code = <0.2 AI 68328) ALTMAN (Sm) [id number] 00:00:00 Test Item Value Reference Range Interpretation Comments ALTMAN (Sm) ANTIBODY (test code = <0.2 AI 43487) SCL-70 [id number] 00:00:00 Test Item Value Reference Range Interpretation Comments SCL-70 ANTIBODY (test code = 4606) <0.2 AI SCL-70 [id number] 00:00:00 Test Item Value Reference Range Interpretation Comments SCL-70 ANTIBODY (test code = 4606) <0.2 AI SCL-70 [id number] 00:00:00 Test Item Value Reference Range Interpretation Comments SCL-70 ANTIBODY (test code = 4606) <0.2 AI [id number] 00:00:00 Test Item Value Reference Range Interpretation Comments SJOGREN'S SS-A ANTIBODY (test code = <0.2 AI 58997) SJOGREN'S SS-B ANTIBODY (test code = <0.2 AI 10751) [id number] 00:00:00 Test Item Value Reference Range Interpretation Comments SJOGREN'S SS-A ANTIBODY (test code = <0.2 AI 76798) SJOGREN'S SS-B ANTIBODY (test code = <0.2 AI 96614) H. PYLORI (BREATH)2022-01-03 00:00:00 Test Item Value Reference Range Interpretation Comments H. PYLORI (BREATH) (test code = NEGATIVE 82406) H. PYLORI (BREATH)2022-01-03 00:00:00 Test Item Value Reference Range Interpretation Comments H. PYLORI (BREATH) (test code = NEGATIVE 27176) ALTMAN (Sm) [id number] 00:00:00 Test Item Value Reference Range Interpretation Comments ALTMAN (Sm) ANTIBODY (test code = <0.2 AI 53011) ALTMAN (Sm) [id number] 00:00:00 Test Item Value Reference Range Interpretation Comments ALTMAN (Sm) ANTIBODY (test code = <0.2 AI 51309) SCL-70 [id number] 00:00:00 Test Item Value Reference Range Interpretation Comments SCL-70 ANTIBODY (test code = 4606) <0.2 AI SCL-70 [id number] 00:00:00 Test Item Value Reference Range Interpretation Comments SCL-70 ANTIBODY (test code = 4606) <0.2 AI SCL-70 [id number] 00:00:00 Test Item Value Reference Range Interpretation Comments SCL-70 ANTIBODY (test code = 4606) <0.2 AI [id number] 00:00:00 Test Item Value Reference Range Interpretation Comments SJOGREN'S SS-A ANTIBODY (test code = <0.2 AI 64368) SJOGREN'S SS-B ANTIBODY (test code = <0.2 AI 60975) [id number] 00:00:00 Test Item Value Reference Range Interpretation Comments SJOGREN'S SS-A ANTIBODY (test code = <0.2 AI 49880) SJOGREN'S SS-B ANTIBODY (test code = <0.2 AI 07256) ALTMAN (Sm) [id number] 00:00:00 Test Item Value Reference Range Interpretation Comments ALTMAN (Sm) ANTIBODY (test code = <0.2 AI 14714) ALTMAN (Sm) [id number] 00:00:00 Test Item Value Reference Range Interpretation Comments ALTMAN (Sm) ANTIBODY (test code = <0.2 AI 04808) H. PYLORI (BREATH)2022-01-03 00:00:00 Test Item Value Reference Range Interpretation Comments H. PYLORI (BREATH) (test code = NEGATIVE 98065) H. PYLORI (BREATH)2022-01-03 00:00:00 Test Item Value Reference Range Interpretation Comments H. PYLORI (BREATH) (test code = NEGATIVE 27540) SCL-70 [id number] 00:00:00 Test Item Value Reference Range Interpretation Comments SCL-70 ANTIBODY (test code = 4606) <0.2 AI SCL-70 [id number] 00:00:00 Test Item Value Reference Range Interpretation Comments SCL-70 ANTIBODY (test code = 4606) <0.2 AI SCL-70 [id number] 00:00:00 Test Item Value Reference Range Interpretation Comments SCL-70 ANTIBODY (test code = 4606) <0.2 AI [id number] 00:00:00 Test Item Value Reference Range Interpretation Comments SJOGREN'S SS-A ANTIBODY (test code = <0.2 AI 31437) SJOGREN'S SS-B ANTIBODY (test code = <0.2 AI 89627) [id number] 00:00:00 Test Item Value Reference Range Interpretation Comments SJOGREN'S SS-A ANTIBODY (test code = <0.2 AI 81656) SJOGREN'S SS-B ANTIBODY (test code = <0.2 AI 16134) H. PYLORI (BREATH)2022-01-03 00:00:00 Test Item Value Reference Range Interpretation Comments H. PYLORI (BREATH) (test code = NEGATIVE 95770) H. PYLORI (BREATH)2022-01-03 00:00:00 Test Item Value Reference Range Interpretation Comments H. PYLORI (BREATH) (test code = NEGATIVE 24688) ALTMAN (Sm) [id number] 00:00:00 Test Item Value Reference Range Interpretation Comments ALTMAN (Sm) ANTIBODY (test code = <0.2 AI 54610) ALTMAN (Sm) [id number] 00:00:00 Test Item Value Reference Range Interpretation Comments ALTMAN (Sm) ANTIBODY (test code = <0.2 AI 06018) SCL-70 [id number] 00:00:00 Test Item Value Reference Range Interpretation Comments SCL-70 ANTIBODY (test code = 4606) <0.2 AI SCL-70 [id number] 00:00:00 Test Item Value Reference Range Interpretation Comments SCL-70 ANTIBODY (test code = 4606) <0.2 AI SCL-70 [id number] 00:00:00 Test Item Value Reference Range Interpretation Comments SCL-70 ANTIBODY (test code = 4606) <0.2 AI [id number] 00:00:00 Test Item Value Reference Range Interpretation Comments SJOGREN'S SS-A ANTIBODY (test code = <0.2 AI 72594) SJOGREN'S SS-B ANTIBODY (test code = <0.2 AI 84548) [id number] 00:00:00 Test Item Value Reference Range Interpretation Comments SJOGREN'S SS-A ANTIBODY (test code = <0.2 AI 91081) SJOGREN'S SS-B ANTIBODY (test code = <0.2 AI 55010) ALTMAN (Sm) [id number] 00:00:00 Test Item Value Reference Range Interpretation Comments ALTMAN (Sm) ANTIBODY (test code = <0.2 AI 18804) ALTMAN (Sm) [id number] 00:00:00 Test Item Value Reference Range Interpretation Comments ALTMAN (Sm) ANTIBODY (test code = <0.2 AI 37112) H. PYLORI (BREATH)2022-01-03 00:00:00 Test Item Value Reference Range Interpretation Comments H. PYLORI (BREATH) (test code = NEGATIVE 81906) H. PYLORI (BREATH)2022-01-03 00:00:00 Test Item Value Reference Range Interpretation Comments H. PYLORI (BREATH) (test code = NEGATIVE 34459) SCL-70 [id number] 00:00:00 Test Item Value Reference Range Interpretation Comments SCL-70 ANTIBODY (test code = 4606) <0.2 AI SCL-70 [id number] 00:00:00 Test Item Value Reference Range Interpretation Comments SCL-70 ANTIBODY (test code = 4606) <0.2 AI SCL-70 [id number] 00:00:00 Test Item Value Reference Range Interpretation Comments SCL-70 ANTIBODY (test code = 4606) <0.2 AI [id number] 00:00:00 Test Item Value Reference Range Interpretation Comments SJOGREN'S SS-A ANTIBODY (test code = <0.2 AI 17569) SJOGREN'S SS-B ANTIBODY (test code = <0.2 AI 89793) [id number] 00:00:00 Test Item Value Reference Range Interpretation Comments SJOGREN'S SS-A ANTIBODY (test code = <0.2 AI 19808) SJOGREN'S SS-B ANTIBODY (test code = <0.2 AI 65804) H. PYLORI (BREATH)2022-01-03 00:00:00 Test Item Value Reference Range Interpretation Comments H. PYLORI (BREATH) (test code = NEGATIVE 81877) H. PYLORI (BREATH)2022-01-03 00:00:00 Test Item Value Reference Range Interpretation Comments H. PYLORI (BREATH) (test code = NEGATIVE 99007) ALTMAN (Sm) [id number] 00:00:00 Test Item Value Reference Range Interpretation Comments ALTMAN (Sm) ANTIBODY (test code = <0.2 AI 42445) ALTMAN (Sm) [id number] 00:00:00 Test Item Value Reference Range Interpretation Comments ALTMAN (Sm) ANTIBODY (test code = <0.2 AI 58151) SCL-70 [id number] 00:00:00 Test Item Value Reference Range Interpretation Comments SCL-70 ANTIBODY (test code = 4606) <0.2 AI SCL-70 [id number] 00:00:00 Test Item Value Reference Range Interpretation Comments SCL-70 ANTIBODY (test code = 4606) <0.2 AI SCL-70 [id number] 00:00:00 Test Item Value Reference Range Interpretation Comments SCL-70 ANTIBODY (test code = 4606) <0.2 AI [id number] 00:00:00 Test Item Value Reference Range Interpretation Comments SJOGREN'S SS-A ANTIBODY (test code = <0.2 AI 20150) SJOGREN'S SS-B ANTIBODY (test code = <0.2 AI 71520) [id number] 00:00:00 Test Item Value Reference Range Interpretation Comments SJOGREN'S SS-A ANTIBODY (test code = <0.2 AI 27099) SJOGREN'S SS-B ANTIBODY (test code = <0.2 AI 99084) H. PYLORI (BREATH)2022-01-03 00:00:00 Test Item Value Reference Range Interpretation Comments H. PYLORI (BREATH) (test code = NEGATIVE 93829) H. PYLORI (BREATH)2022-01-03 00:00:00 Test Item Value Reference Range Interpretation Comments H. PYLORI (BREATH) (test code = NEGATIVE 79510) ALTMAN (Sm) [id number] 00:00:00 Test Item Value Reference Range Interpretation Comments ALTMAN (Sm) ANTIBODY (test code = <0.2 AI 80024) ALTMAN (Sm) [id number] 00:00:00 Test Item Value Reference Range Interpretation Comments ALTMAN (Sm) ANTIBODY (test code = <0.2 AI 12679) SCL-70 [id number] 00:00:00 Test Item Value Reference Range Interpretation Comments SCL-70 ANTIBODY (test code = 4606) <0.2 AI SCL-70 [id number] 00:00:00 Test Item Value Reference Range Interpretation Comments SCL-70 ANTIBODY (test code = 4606) <0.2 AI SCL-70 [id number] 00:00:00 Test Item Value Reference Range Interpretation Comments SCL-70 ANTIBODY (test code = 4606) <0.2 AI [id number] 00:00:00 Test Item Value Reference Range Interpretation Comments SJOGREN'S SS-A ANTIBODY (test code = <0.2 AI 34933) SJOGREN'S SS-B ANTIBODY (test code = <0.2 AI 28870) [id number] 00:00:00 Test Item Value Reference Range Interpretation Comments SJOGREN'S SS-A ANTIBODY (test code = <0.2 AI 64729) SJOGREN'S SS-B ANTIBODY (test code = <0.2 AI 70548) ALTMAN (Sm) [id number] 00:00:00 Test Item Value Reference Range Interpretation Comments ALTMAN (Sm) ANTIBODY (test code = <0.2 AI 24589) ALTMAN (Sm) [id number] 00:00:00 Test Item Value Reference Range Interpretation Comments ALTMAN (Sm) ANTIBODY (test code = <0.2 AI 95899) H. PYLORI (BREATH)2022-01-03 00:00:00 Test Item Value Reference Range Interpretation Comments H. PYLORI (BREATH) (test code = NEGATIVE 23112) H. PYLORI (BREATH)2022-01-03 00:00:00 Test Item Value Reference Range Interpretation Comments H. PYLORI (BREATH) (test code = NEGATIVE 58444) SCL-70 [id number] 00:00:00 Test Item Value Reference Range Interpretation Comments SCL-70 ANTIBODY (test code = 4606) <0.2 AI SCL-70 [id number] 00:00:00 Test Item Value Reference Range Interpretation Comments SCL-70 ANTIBODY (test code = 4606) <0.2 AI SCL-70 [id number] 00:00:00 Test Item Value Reference Range Interpretation Comments SCL-70 ANTIBODY (test code = 4606) <0.2 AI [id number] 00:00:00 Test Item Value Reference Range Interpretation Comments SJOGREN'S SS-A ANTIBODY (test code = <0.2 AI 77447) SJOGREN'S SS-B ANTIBODY (test code = <0.2 AI 80202) [id number] 00:00:00 Test Item Value Reference Range Interpretation Comments SJOGREN'S SS-A ANTIBODY (test code = <0.2 AI 92087) SJOGREN'S SS-B ANTIBODY (test code = <0.2 AI 16340) H. PYLORI (BREATH)2022-01-03 00:00:00 Test Item Value Reference Range Interpretation Comments H. PYLORI (BREATH) (test code = NEGATIVE 70326) H. PYLORI (BREATH)2022-01-03 00:00:00 Test Item Value Reference Range Interpretation Comments H. PYLORI (BREATH) (test code = NEGATIVE 70437) ALTMAN (Sm) [id number] 00:00:00 Test Item Value Reference Range Interpretation Comments ALTMAN (Sm) ANTIBODY (test code = <0.2 AI 99773) ALTMAN (Sm) [id number] 00:00:00 Test Item Value Reference Range Interpretation Comments ALTMAN (Sm) ANTIBODY (test code = <0.2 AI 31679) SCL-70 [id number] 00:00:00 Test Item Value Reference Range Interpretation Comments SCL-70 ANTIBODY (test code = 4606) <0.2 AI SCL-70 [id number] 00:00:00 Test Item Value Reference Range Interpretation Comments SCL-70 ANTIBODY (test code = 4606) <0.2 AI SCL-70 [id number] 00:00:00 Test Item Value Reference Range Interpretation Comments SCL-70 ANTIBODY (test code = 4606) <0.2 AI [id number] 00:00:00 Test Item Value Reference Range Interpretation Comments SJOGREN'S SS-A ANTIBODY (test code = <0.2 AI 50808) SJOGREN'S SS-B ANTIBODY (test code = <0.2 AI 73018) [id number] 00:00:00 Test Item Value Reference Range Interpretation Comments SJOGREN'S SS-A ANTIBODY (test code = <0.2 AI 21790) SJOGREN'S SS-B ANTIBODY (test code = <0.2 AI 77639) KATHRYN (ANTI-NUCLEAR AB) WITH REFLEX [id number] 04:07:31 Test Item Value Reference Range Interpretation Comments ANTI-NUCLEAR POSITIVE NEGATIVE A ANTIBODIES (test code = 3506) KATHRYN PATTERN SEE BELOW (REPORTED TITER) (test code = 57454) HOMOGENEOUS (test NEGATIVE TITER NEGATIVE code = 89703) SPECKLED (test 1:160 TITER NEGATIVE H code = 224411) DENSE FINE NEGATIVE TITER NEGATIVE SPECKLED (test code = 34294) CENTROMERE (test NEGATIVE TITER NEGATIVE code = 008186) COARSE SPECKLED NEGATIVE TITER NEGATIVE (test code = 774749) DISCRETE NUCLEAR NEGATIVE TITER NEGATIVE DOTS (test code = 238356) NUCLEOLAR (test NEGATIVE TITER NEGATIVE code = 412691) NUCLEAR MEMBRANE NEGATIVE TITER NEGATIVE (test code = 324394) CYTO. RETICULAR NEGATIVE NEGATIVE (ANEESH) (test code = 789428) COMMENTS (test NONE code = 628884) METHOD (test code (NOTE) NOTE: EFF ECTIVE = 24825) 11/06/2021, MET HOD IS TRANSITIONED TO THE INOVADIAGNOSTIC S NOVA VIEW IFA PLATFO RM. THE METHOD INCLUDES A SCREENTHRESHOLD OF 1:80, DIGITIZED AND COMPUTER ALGORITHM-NOLBERTO ERIKAE RPRETATION OF T ITERS AND DIGITAL PAT TERNS, AND HEp-2 CELLL INE SUBSTRATE. GUS TIONAL UNUSUAL PATTERN S WILL BE GIVEN ASCOMM ENTS. FOR MORE INFORM ATION, SEE [email or web address] KATHRYN (ANTI-NUCLEAR AB) WITH REFLEX [id number] 00:00:00 Test Item Value Reference Range Interpretation Comments ANTI-NUCLEAR ANTIBODIES (test POSITIVE code = 3506) KATHRYN PATTERN (REPORTED SEE BELOW TITER) (test code = 50886) HOMOGENEOUS (test code = NEGATIVE TITER 46675) SPECKLED (test code = 794096) 1:160 TITER DENSE FINE SPECKLED (test code NEGATIVE TITER = 46860) CENTROMERE (test code = NEGATIVE TITER 325584) COARSE SPECKLED (test code = NEGATIVE TITER 898748) DISCRETE NUCLEAR DOTS (test NEGATIVE TITER code = 206916) NUCLEOLAR (test code = 941550) NEGATIVE TITER NUCLEAR MEMBRANE (test code = NEGATIVE TITER 172308) CYTO. RETICULAR (ANEESH) (test NEGATIVE code = 195717) COMMENTS (test code = 045948) NONE METHOD (test code = 46275) (NOTE) KATHRYN (ANTI-NUCLEAR AB) WITH REFLEX [id number] 00:00:00 Test Item Value Reference Range Interpretation Comments ANTI-NUCLEAR ANTIBODIES (test POSITIVE code = 3506) KATHRYN PATTERN (REPORTED SEE BELOW TITER) (test code = 28764) HOMOGENEOUS (test code = NEGATIVE TITER 68485) SPECKLED (test code = 120068) 1:160 TITER DENSE FINE SPECKLED (test code NEGATIVE TITER = 14622) CENTROMERE (test code = NEGATIVE TITER 387820) COARSE SPECKLED (test code = NEGATIVE TITER 782307) DISCRETE NUCLEAR DOTS (test NEGATIVE TITER code = 329975) NUCLEOLAR (test code = 647290) NEGATIVE TITER NUCLEAR MEMBRANE (test code = NEGATIVE TITER 048188) CYTO. RETICULAR (ANEESH) (test NEGATIVE code = 463801) COMMENTS (test code = 885931) NONE METHOD (test code = 54848) (NOTE) KATHRYN (ANTI-NUCLEAR AB) WITH REFLEX [id number] 00:00:00 Test Item Value Reference Range Interpretation Comments ANTI-NUCLEAR ANTIBODIES (test POSITIVE code = 3506) KATHRYN PATTERN (REPORTED SEE BELOW TITER) (test code = 81087) HOMOGENEOUS (test code = NEGATIVE TITER 79560) SPECKLED (test code = 142578) 1:160 TITER DENSE FINE SPECKLED (test code NEGATIVE TITER = 32573) CENTROMERE (test code = NEGATIVE TITER 543401) COARSE SPECKLED (test code = NEGATIVE TITER 015142) DISCRETE NUCLEAR DOTS (test NEGATIVE TITER code = 246451) NUCLEOLAR (test code = 563111) NEGATIVE TITER NUCLEAR MEMBRANE (test code = NEGATIVE TITER 268335) CYTO. RETICULAR (ANEESH) (test NEGATIVE code = 668160) COMMENTS (test code = 248185) NONE METHOD (test code = 47698) (NOTE) KATHRYN (ANTI-NUCLEAR AB) WITH REFLEX [id number] 00:00:00 Test Item Value Reference Range Interpretation Comments ANTI-NUCLEAR ANTIBODIES (test POSITIVE code = 3506) KATHRYN PATTERN (REPORTED SEE BELOW TITER) (test code = 04663) HOMOGENEOUS (test code = NEGATIVE TITER 13181) SPECKLED (test code = 730064) 1:160 TITER DENSE FINE SPECKLED (test code NEGATIVE TITER = 27706) CENTROMERE (test code = NEGATIVE TITER 203398) COARSE SPECKLED (test code = NEGATIVE TITER 496077) DISCRETE NUCLEAR DOTS (test NEGATIVE TITER code = 637637) NUCLEOLAR (test code = 514901) NEGATIVE TITER NUCLEAR MEMBRANE (test code = NEGATIVE TITER 065052) CYTO. RETICULAR (ANEESH) (test NEGATIVE code = 650814) COMMENTS (test code = 298614) NONE METHOD (test code = 19972) (NOTE) KATHRYN (ANTI-NUCLEAR AB) WITH REFLEX [id number] 00:00:00 Test Item Value Reference Range Interpretation Comments ANTI-NUCLEAR ANTIBODIES (test POSITIVE code = 3506) KATHRYN PATTERN (REPORTED SEE BELOW TITER) (test code = 98435) HOMOGENEOUS (test code = NEGATIVE TITER 35134) SPECKLED (test code = 637493) 1:160 TITER DENSE FINE SPECKLED (test code NEGATIVE TITER = 35244) CENTROMERE (test code = NEGATIVE TITER 829885) COARSE SPECKLED (test code = NEGATIVE TITER 668616) DISCRETE NUCLEAR DOTS (test NEGATIVE TITER code = 519403) NUCLEOLAR (test code = 768807) NEGATIVE TITER NUCLEAR MEMBRANE (test code = NEGATIVE TITER 630122) CYTO. RETICULAR (ANEESH) (test NEGATIVE code = 283840) COMMENTS (test code = 413053) NONE METHOD (test code = 53538) (NOTE) KATHRYN (ANTI-NUCLEAR AB) WITH REFLEX [id number] 00:00:00 Test Item Value Reference Range Interpretation Comments ANTI-NUCLEAR ANTIBODIES (test POSITIVE code = 3506) KATHRYN PATTERN (REPORTED SEE BELOW TITER) (test code = 74083) HOMOGENEOUS (test code = NEGATIVE TITER 01917) SPECKLED (test code = 025508) 1:160 TITER DENSE FINE SPECKLED (test code NEGATIVE TITER = 03296) CENTROMERE (test code = NEGATIVE TITER 860053) COARSE SPECKLED (test code = NEGATIVE TITER 583038) DISCRETE NUCLEAR DOTS (test NEGATIVE TITER code = 567951) NUCLEOLAR (test code = 361021) NEGATIVE TITER NUCLEAR MEMBRANE (test code = NEGATIVE TITER 597466) CYTO. RETICULAR (ANEESH) (test NEGATIVE code = 741174) COMMENTS (test code = 967066) NONE METHOD (test code = 01105) (NOTE) KATHRYN (ANTI-NUCLEAR AB) WITH REFLEX [id number] 00:00:00 Test Item Value Reference Range Interpretation Comments ANTI-NUCLEAR ANTIBODIES (test POSITIVE code = 3506) KATHRYN PATTERN (REPORTED SEE BELOW TITER) (test code = 62648) HOMOGENEOUS (test code = NEGATIVE TITER 53358) SPECKLED (test code = 322881) 1:160 TITER DENSE FINE SPECKLED (test code NEGATIVE TITER = 69437) CENTROMERE (test code = NEGATIVE TITER 730109) COARSE SPECKLED (test code = NEGATIVE TITER 816508) DISCRETE NUCLEAR DOTS (test NEGATIVE TITER code = 405565) NUCLEOLAR (test code = 780652) NEGATIVE TITER NUCLEAR MEMBRANE (test code = NEGATIVE TITER 947322) CYTO. RETICULAR (ANEESH) (test NEGATIVE code = 927735) COMMENTS (test code = 469609) NONE METHOD (test code = 86269) (NOTE) KATHRYN (ANTI-NUCLEAR AB) WITH REFLEX [id number] 00:00:00 Test Item Value Reference Range Interpretation Comments ANTI-NUCLEAR ANTIBODIES (test POSITIVE code = 3506) KATHRYN PATTERN (REPORTED SEE BELOW TITER) (test code = 25323) HOMOGENEOUS (test code = NEGATIVE TITER 89520) SPECKLED (test code = 333457) 1:160 TITER DENSE FINE SPECKLED (test code NEGATIVE TITER = 95116) CENTROMERE (test code = NEGATIVE TITER 952704) COARSE SPECKLED (test code = NEGATIVE TITER 180098) DISCRETE NUCLEAR DOTS (test NEGATIVE TITER code = 053620) NUCLEOLAR (test code = 117344) NEGATIVE TITER NUCLEAR MEMBRANE (test code = NEGATIVE TITER 791514) CYTO. RETICULAR (ANEESH) (test NEGATIVE code = 693992) COMMENTS (test code = 912987) NONE METHOD (test code = 31707) (NOTE) KATHRYN (ANTI-NUCLEAR AB) WITH REFLEX [id number] 00:00:00 Test Item Value Reference Range Interpretation Comments ANTI-NUCLEAR ANTIBODIES (test POSITIVE code = 3506) KATHRYN PATTERN (REPORTED SEE BELOW TITER) (test code = 77564) HOMOGENEOUS (test code = NEGATIVE TITER 71296) SPECKLED (test code = 753326) 1:160 TITER DENSE FINE SPECKLED (test code NEGATIVE TITER = 68011) CENTROMERE (test code = NEGATIVE TITER 095557) COARSE SPECKLED (test code = NEGATIVE TITER 144394) DISCRETE NUCLEAR DOTS (test NEGATIVE TITER code = 932998) NUCLEOLAR (test code = 150775) NEGATIVE TITER NUCLEAR MEMBRANE (test code = NEGATIVE TITER 239476) CYTO. RETICULAR (ANEESH) (test NEGATIVE code = 918533) COMMENTS (test code = 171867) NONE METHOD (test code = 49147) (NOTE) KATHRYN (ANTI-NUCLEAR AB) WITH REFLEX [id number] 00:00:00 Test Item Value Reference Range Interpretation Comments ANTI-NUCLEAR ANTIBODIES (test POSITIVE code = 3506) KATHRYN PATTERN (REPORTED SEE BELOW TITER) (test code = 76235) HOMOGENEOUS (test code = NEGATIVE TITER 18375) SPECKLED (test code = 888225) 1:160 TITER DENSE FINE SPECKLED (test code NEGATIVE TITER = 83488) CENTROMERE (test code = NEGATIVE TITER 634977) COARSE SPECKLED (test code = NEGATIVE TITER 229696) DISCRETE NUCLEAR DOTS (test NEGATIVE TITER code = 116361) NUCLEOLAR (test code = 941009) NEGATIVE TITER NUCLEAR MEMBRANE (test code = NEGATIVE TITER 254931) CYTO. RETICULAR (ANEESH) (test NEGATIVE code = 195130) COMMENTS (test code = 889206) NONE METHOD (test code = 15374) (NOTE) KATHRYN (ANTI-NUCLEAR AB) WITH REFLEX [id number] 00:00:00 Test Item Value Reference Range Interpretation Comments ANTI-NUCLEAR ANTIBODIES (test POSITIVE code = 3506) KATHRYN PATTERN (REPORTED SEE BELOW TITER) (test code = 17530) HOMOGENEOUS (test code = NEGATIVE TITER 20228) SPECKLED (test code = 513571) 1:160 TITER DENSE FINE SPECKLED (test code NEGATIVE TITER = 10618) CENTROMERE (test code = NEGATIVE TITER 526916) COARSE SPECKLED (test code = NEGATIVE TITER 111971) DISCRETE NUCLEAR DOTS (test NEGATIVE TITER code = 677442) NUCLEOLAR (test code = 423251) NEGATIVE TITER NUCLEAR MEMBRANE (test code = NEGATIVE TITER 872153) CYTO. RETICULAR (ANEESH) (test NEGATIVE code = 244895) COMMENTS (test code = 369983) NONE METHOD (test code = 94200) (NOTE) KATHRYN (ANTI-NUCLEAR AB) WITH REFLEX [id number] 00:00:00 Test Item Value Reference Range Interpretation Comments ANTI-NUCLEAR ANTIBODIES (test POSITIVE code = 3506) KATHRYN PATTERN (REPORTED SEE BELOW TITER) (test code = 17398) HOMOGENEOUS (test code = NEGATIVE TITER 08486) SPECKLED (test code = 031621) 1:160 TITER DENSE FINE SPECKLED (test code NEGATIVE TITER = 54042) CENTROMERE (test code = NEGATIVE TITER 344235) COARSE SPECKLED (test code = NEGATIVE TITER 332799) DISCRETE NUCLEAR DOTS (test NEGATIVE TITER code = 274035) NUCLEOLAR (test code = 975717) NEGATIVE TITER NUCLEAR MEMBRANE (test code = NEGATIVE TITER 192109) CYTO. RETICULAR (ANEESH) (test NEGATIVE code = 833501) COMMENTS (test code = 939420) NONE METHOD (test code = 70948) (NOTE) KATHRYN (ANTI-NUCLEAR AB) WITH REFLEX [id number] 00:00:00 Test Item Value Reference Range Interpretation Comments ANTI-NUCLEAR ANTIBODIES (test POSITIVE code = 3506) KATHRYN PATTERN (REPORTED SEE BELOW TITER) (test code = 73794) HOMOGENEOUS (test code = NEGATIVE TITER 01973) SPECKLED (test code = 610886) 1:160 TITER DENSE FINE SPECKLED (test code NEGATIVE TITER = 47108) CENTROMERE (test code = NEGATIVE TITER 733445) COARSE SPECKLED (test code = NEGATIVE TITER 673260) DISCRETE NUCLEAR DOTS (test NEGATIVE TITER code = 473442) NUCLEOLAR (test code = 116300) NEGATIVE TITER NUCLEAR MEMBRANE (test code = NEGATIVE TITER 999028) CYTO. RETICULAR (ANEESH) (test NEGATIVE code = 498328) COMMENTS (test code = 937483) NONE METHOD (test code = 40706) (NOTE) KATHRYN (ANTI-NUCLEAR AB) WITH REFLEX [id number] 00:00:00 Test Item Value Reference Range Interpretation Comments ANTI-NUCLEAR ANTIBODIES (test POSITIVE code = 3506) KATHRYN PATTERN (REPORTED SEE BELOW TITER) (test code = 49062) HOMOGENEOUS (test code = NEGATIVE TITER 05057) SPECKLED (test code = 333218) 1:160 TITER DENSE FINE SPECKLED (test code NEGATIVE TITER = 65095) CENTROMERE (test code = NEGATIVE TITER 815298) COARSE SPECKLED (test code = NEGATIVE TITER 176949) DISCRETE NUCLEAR DOTS (test NEGATIVE TITER code = 593575) NUCLEOLAR (test code = 642350) NEGATIVE TITER NUCLEAR MEMBRANE (test code = NEGATIVE TITER 767412) CYTO. RETICULAR (ANEESH) (test NEGATIVE code = 190519) COMMENTS (test code = 135768) NONE METHOD (test code = 86025) (NOTE) KATHRYN (ANTI-NUCLEAR AB) WITH REFLEX [id number] 00:00:00 Test Item Value Reference Range Interpretation Comments ANTI-NUCLEAR ANTIBODIES (test POSITIVE code = 3506) KATHRYN PATTERN (REPORTED SEE BELOW TITER) (test code = 99511) HOMOGENEOUS (test code = NEGATIVE TITER 31272) SPECKLED (test code = 506166) 1:160 TITER DENSE FINE SPECKLED (test code NEGATIVE TITER = 99760) CENTROMERE (test code = NEGATIVE TITER 908223) COARSE SPECKLED (test code = NEGATIVE TITER 519590) DISCRETE NUCLEAR DOTS (test NEGATIVE TITER code = 054947) NUCLEOLAR (test code = 832852) NEGATIVE TITER NUCLEAR MEMBRANE (test code = NEGATIVE TITER 782386) CYTO. RETICULAR (ANEESH) (test NEGATIVE code = 905232) COMMENTS (test code = 996991) NONE METHOD (test code = 66506) (NOTE) KATHRYN (ANTI-NUCLEAR AB) WITH REFLEX [id number] 00:00:00 Test Item Value Reference Range Interpretation Comments ANTI-NUCLEAR ANTIBODIES (test POSITIVE code = 3506) KATHRYN PATTERN (REPORTED SEE BELOW TITER) (test code = 43777) HOMOGENEOUS (test code = NEGATIVE TITER 98118) SPECKLED (test code = 462721) 1:160 TITER DENSE FINE SPECKLED (test code NEGATIVE TITER = 98840) CENTROMERE (test code = NEGATIVE TITER 315062) COARSE SPECKLED (test code = NEGATIVE TITER 057197) DISCRETE NUCLEAR DOTS (test NEGATIVE TITER code = 637199) NUCLEOLAR (test code = 816761) NEGATIVE TITER NUCLEAR MEMBRANE (test code = NEGATIVE TITER 183202) CYTO. RETICULAR (ANEESH) (test NEGATIVE code = 916050) COMMENTS (test code = 047685) NONE METHOD (test code = 35450) (NOTE) KATHRYN (ANTI-NUCLEAR AB) WITH REFLEX [id number] 00:00:00 Test Item Value Reference Range Interpretation Comments ANTI-NUCLEAR ANTIBODIES (test POSITIVE code = 3506) KATHRYN PATTERN (REPORTED SEE BELOW TITER) (test code = 04447) HOMOGENEOUS (test code = NEGATIVE TITER 92647) SPECKLED (test code = 223043) 1:160 TITER DENSE FINE SPECKLED (test code NEGATIVE TITER = 59689) CENTROMERE (test code = NEGATIVE TITER 856504) COARSE SPECKLED (test code = NEGATIVE TITER 855509) DISCRETE NUCLEAR DOTS (test NEGATIVE TITER code = 828965) NUCLEOLAR (test code = 733919) NEGATIVE TITER NUCLEAR MEMBRANE (test code = NEGATIVE TITER 234536) CYTO. RETICULAR (ANEESH) (test NEGATIVE code = 583535) COMMENTS (test code = 638151) NONE METHOD (test code = 23938) (NOTE) KATHRYN (ANTI-NUCLEAR AB) WITH REFLEX [id number] 00:00:00 Test Item Value Reference Range Interpretation Comments ANTI-NUCLEAR ANTIBODIES (test POSITIVE code = 3506) KATHRYN PATTERN (REPORTED SEE BELOW TITER) (test code = 54018) HOMOGENEOUS (test code = NEGATIVE TITER 95541) SPECKLED (test code = 428523) 1:160 TITER DENSE FINE SPECKLED (test code NEGATIVE TITER = 06234) CENTROMERE (test code = NEGATIVE TITER 561244) COARSE SPECKLED (test code = NEGATIVE TITER 725449) DISCRETE NUCLEAR DOTS (test NEGATIVE TITER code = 423767) NUCLEOLAR (test code = 615994) NEGATIVE TITER NUCLEAR MEMBRANE (test code = NEGATIVE TITER 739893) CYTO. RETICULAR (ANEESH) (test NEGATIVE code = 378450) COMMENTS (test code = 489059) NONE METHOD (test code = 10447) (NOTE) KATHRYN (ANTI-NUCLEAR AB) WITH REFLEX [id number] 00:00:00 Test Item Value Reference Range Interpretation Comments ANTI-NUCLEAR ANTIBODIES (test POSITIVE code = 3506) KATHRYN PATTERN (REPORTED SEE BELOW TITER) (test code = 94367) HOMOGENEOUS (test code = NEGATIVE TITER 40566) SPECKLED (test code = 146374) 1:160 TITER DENSE FINE SPECKLED (test code NEGATIVE TITER = 15063) CENTROMERE (test code = NEGATIVE TITER 637955) COARSE SPECKLED (test code = NEGATIVE TITER 123362) DISCRETE NUCLEAR DOTS (test NEGATIVE TITER code = 877178) NUCLEOLAR (test code = 868459) NEGATIVE TITER NUCLEAR MEMBRANE (test code = NEGATIVE TITER 658573) CYTO. RETICULAR (ANEESH) (test NEGATIVE code = 892556) COMMENTS (test code = 077203) NONE METHOD (test code = 48217) (NOTE) KATHRYN (ANTI-NUCLEAR AB) WITH REFLEX [id number] 00:00:00 Test Item Value Reference Range Interpretation Comments ANTI-NUCLEAR ANTIBODIES (test POSITIVE code = 3506) KATHRYN PATTERN (REPORTED SEE BELOW TITER) (test code = 68530) HOMOGENEOUS (test code = NEGATIVE TITER 11787) SPECKLED (test code = 207746) 1:160 TITER DENSE FINE SPECKLED (test code NEGATIVE TITER = 25604) CENTROMERE (test code = NEGATIVE TITER 820967) COARSE SPECKLED (test code = NEGATIVE TITER 192456) DISCRETE NUCLEAR DOTS (test NEGATIVE TITER code = 465058) NUCLEOLAR (test code = 024596) NEGATIVE TITER NUCLEAR MEMBRANE (test code = NEGATIVE TITER 446987) CYTO. RETICULAR (ANEESH) (test NEGATIVE code = 457134) COMMENTS (test code = 755232) NONE METHOD (test code = 88665) (NOTE) KATHRYN (ANTI-NUCLEAR AB) WITH REFLEX [id number] 00:00:00 Test Item Value Reference Range Interpretation Comments ANTI-NUCLEAR ANTIBODIES (test POSITIVE code = 3506) KATHRYN PATTERN (REPORTED SEE BELOW TITER) (test code = 54384) HOMOGENEOUS (test code = NEGATIVE TITER 04321) SPECKLED (test code = 595827) 1:160 TITER DENSE FINE SPECKLED (test code NEGATIVE TITER = 37132) CENTROMERE (test code = NEGATIVE TITER 843222) COARSE SPECKLED (test code = NEGATIVE TITER 874761) DISCRETE NUCLEAR DOTS (test NEGATIVE TITER code = 820204) NUCLEOLAR (test code = 632270) NEGATIVE TITER NUCLEAR MEMBRANE (test code = NEGATIVE TITER 558238) CYTO. RETICULAR (ANEESH) (test NEGATIVE code = 513011) COMMENTS (test code = 809553) NONE METHOD (test code = 84577) (NOTE) KATHRYN (ANTI-NUCLEAR AB) WITH REFLEX [id number] 00:00:00 Test Item Value Reference Range Interpretation Comments ANTI-NUCLEAR ANTIBODIES (test POSITIVE code = 3506) KATHRYN PATTERN (REPORTED SEE BELOW TITER) (test code = 67762) HOMOGENEOUS (test code = NEGATIVE TITER 53030) SPECKLED (test code = 665159) 1:160 TITER DENSE FINE SPECKLED (test code NEGATIVE TITER = 76012) CENTROMERE (test code = NEGATIVE TITER 825896) COARSE SPECKLED (test code = NEGATIVE TITER 173945) DISCRETE NUCLEAR DOTS (test NEGATIVE TITER code = 797819) NUCLEOLAR (test code = 328977) NEGATIVE TITER NUCLEAR MEMBRANE (test code = NEGATIVE TITER 574506) CYTO. RETICULAR (ANEESH) (test NEGATIVE code = 617781) COMMENTS (test code = 456904) NONE METHOD (test code = 74020) (NOTE) SEDIMENTATION [id number] 10:45:17 Test Item Value Reference Range Interpretation Comments SEDIMENTATION RATE (test code = 2 MM/HOUR 0-20 1017) HEMOGLOBIN [id number] 10:22:30 Test Item Value Reference Range Interpretation Comments HEMOGLOBIN A1c (test code = 58067) 5.4 % 4.2-5.6 TSH, THIRD [id number] 06:03:43 Test Item Value Reference Range Interpretation Comments TSH, THIRD GENERATION (test code 1.220 UIU/ML 0.400-4.100 = 2821) RHEUMATOID FACTOR, [id number] 05:16:40 Test Item Value Reference Range Interpretation Comments RHEUMATOID FACTOR, QUANT (test code <10 IU/ML <14 = 3502) LIPID [id number] 05:16:07 Test Item Value Reference Range Interpretation [...] MOREINFORMATION , SEE CLIENT ANNOUNCE MENT AT [email or web address] RISK RATIO LDL/HDL 2.58 RATIO <3.22 UNLESS O THERWISE (test code = 2238) INDICATED , ALL TESTING PERFORMED [facility], [facility]. [address] [place], [place] [id number] [place] [address] DIRECTOR: TANNER VELASQUEZ M.D. CLIA NUMBER [id number] CAP ACCREDITATION N O. [id number] URIC [id number] 05:16:07 Test Item Value Reference Range Interpretation Comments URIC ACID (test code = 2233) 7.4 MG/DL 2.7-6.1 H COMPREHENSIVE METABOLIC [id number] 05:16:07 Test Item Value Reference Range Interpretation Comments GLUCOSE (test code = 88 MG/DL 70-99 2216) BUN (test code = 14 MG/DL -20 2207) CREATININE (test 0.71 MG/DL 0.60-1.30 code = 2214) eGFR (2020 CKD-EPI) 101 >60 (test code = 10949) ML/MIN/1.73 CALC BUN/CREAT (test 20 RATIO 09-26 code = 2235) SODIUM (test code = 140 MEQ/L 769-190 9707) POTASSIUM (test code 4.4 MEQ/L 3.5-5.4 = 2227) CHLORIDE (test code 106 MEQ/L 95-107 = 2214) CARBON DIOXIDE (test 19 MEQ/L 19-31 code = 220) CALCIUM (test code = 11.2 MG/DL 8.5-10.5 H 2208) PROTEIN, TOTAL (test 6.9 G/DL 6.1-8.3 code = 222) ALBUMIN (test [...] code = 33 U/L 5-40 2218) CCP [id number] 04:51:18 Test Item Value Reference Range Interpretation Comments CCP IgG (test <0.5 U/ML <3.0 INTERPRET ALEK code = 83836) INFORMATION * INTERPRETATION RESULT NEGATIVE <3.0 U /ML POSITIVE >=3.0 U/ML RHEUMATOID FACTOR, [id number] 00:00:00 Test Item Value Reference Range Interpretation Comments RHEUMATOID FACTOR, QUANT (test code <10 IU/ML = 3502) RHEUMATOID FACTOR, [id number] 00:00:00 Test Item Value Reference Range Interpretation Comments RHEUMATOID FACTOR, QUANT (test code <10 IU/ML = 3502) RHEUMATOID FACTOR, [id number] 00:00:00 Test Item Value Reference Range Interpretation Comments RHEUMATOID FACTOR, QUANT (test code <10 IU/ML = 3502) URIC [id number] 00:00:00 Test Item Value Reference Range Interpretation Comments URIC ACID (test code = 2233) 7.4 MG/DL URIC [id number] 00:00:00 Test Item Value Reference Range Interpretation Comments URIC ACID (test code = 2233) 7.4 MG/DL HEMOGLOBIN [id number] 00:00:00 Test Item Value Reference Range Interpretation Comments HEMOGLOBIN A1c (test code = 42133) 5.4 % HEMOGLOBIN [id number] 00:00:00 Test Item Value Reference Range Interpretation Comments HEMOGLOBIN A1c (test code = 75514) 5.4 % HEMOGLOBIN [id number] 00:00:00 Test Item Value Reference Range Interpretation Comments HEMOGLOBIN A1c (test code = 10741) 5.4 % COMPREHENSIVE METABOLIC [id number] 00:00:00 Test Item Value Reference Range Interpretation Comments GLUCOSE (test code = 2217) 88 MG/DL BUN (test code = 2208) 14 MG/DL CREATININE (test code = 2214) 0.71 MG/DL eGFR (2020 CKD-EPI) (test 101 ML/MIN/1.73 code = 93283) CALC BUN/CREAT (test code = 20 RATIO [...] code = 2219) 33 U/L COMPREHENSIVE METABOLIC [id number] 00:00:00 Test Item Value Reference Range Interpretation Comments GLUCOSE (test code = 2217) 88 MG/DL BUN (test code = 2208) 14 MG/DL CREATININE (test code = 2214) 0.71 MG/DL eGFR (2020 CKD-EPI) (test 101 ML/MIN/1.73 code = 19143) CALC BUN/CREAT (test code = 20 RATIO [...] (test code = 2219) 33 U/L LIPID [id number] 00:00:00 Test Item Value Reference Range Interpretation Comments CHOLESTEROL (test code = 2210) 135 MG/DL TRIGLYCERIDES (test code = 2232) 147 MG/DL HDL CHOLESTEROL (test code = 2220) 31 MG/DL CALC LDL CHOL (test code = 2237) 80 MG/DL RISK RATIO LDL/HDL (test code = 2.58 RATIO 2238) LIPID [id number] 00:00:00 Test Item Value Reference Range Interpretation Comments CHOLESTEROL (test code = 2210) 135 MG/DL TRIGLYCERIDES (test code = 2232) 147 MG/DL HDL CHOLESTEROL (test code = 2220) 31 MG/DL CALC LDL CHOL (test code = 2237) 80 MG/DL RISK RATIO LDL/HDL (test code = 2.58 RATIO 2238) SEDIMENTATION [id number] 00:00:00 Test Item Value Reference Range Interpretation Comments SEDIMENTATION RATE (test code = 2 MM/HOUR 1017) SEDIMENTATION [id number] 00:00:00 Test Item Value Reference Range Interpretation Comments SEDIMENTATION RATE (test code = 2 MM/HOUR 1017) TSH, THIRD [id number] 00:00:00 Test Item Value Reference Range Interpretation Comments TSH, THIRD GENERATION (test code 1.220 UIU/ML = 2821) TSH, THIRD [id number] 00:00:00 Test Item Value Reference Range Interpretation Comments TSH, THIRD GENERATION (test code 1.220 UIU/ML = 2821) TSH, THIRD [id number] 00:00:00 Test Item Value Reference Range Interpretation Comments TSH, THIRD GENERATION (test code 1.220 UIU/ML = 2821) CCP [id number] 00:00:00 Test Item Value Reference Range Interpretation Comments CCP IgG (test code = 49203) <0.5 U/ML CCP [id number] 00:00:00 Test Item Value Reference Range Interpretation Comments CCP IgG (test code = 77404) <0.5 U/ML CCP [id number] 00:00:00 Test Item Value Reference Range Interpretation Comments CCP IgG (test code = 43146) <0.5 U/ML RHEUMATOID FACTOR, [id number] 00:00:00 Test Item Value Reference Range Interpretation Comments RHEUMATOID FACTOR, QUANT (test code <10 IU/ML = 3502) RHEUMATOID FACTOR, [id number] 00:00:00 Test Item Value Reference Range Interpretation Comments RHEUMATOID FACTOR, QUANT (test code <10 IU/ML = 3502) RHEUMATOID FACTOR, [id number] 00:00:00 Test Item Value Reference Range Interpretation Comments RHEUMATOID FACTOR, QUANT (test code <10 IU/ML = 3502) URIC [id number] 00:00:00 Test Item Value Reference Range Interpretation Comments URIC ACID (test code = 2233) 7.4 MG/DL URIC [id number] 00:00:00 Test Item Value Reference Range Interpretation Comments URIC ACID (test code = 2233) 7.4 MG/DL HEMOGLOBIN [id number] 00:00:00 Test Item Value Reference Range Interpretation Comments HEMOGLOBIN A1c (test code = 54765) 5.4 % HEMOGLOBIN [id number] 00:00:00 Test Item Value Reference Range Interpretation Comments HEMOGLOBIN A1c (test code = 76980) 5.4 % HEMOGLOBIN [id number] 00:00:00 Test Item Value Reference Range Interpretation Comments HEMOGLOBIN A1c (test code = 44027) 5.4 % COMPREHENSIVE METABOLIC [id number] 00:00:00 Test Item Value Reference Range Interpretation Comments GLUCOSE (test code = 2217) 88 MG/DL BUN (test code = 2208) 14 MG/DL CREATININE (test code = 2214) 0.71 MG/DL eGFR (2020 CKD-EPI) (test 101 ML/MIN/1.73 code = 01646) CALC BUN/CREAT (test code = 20 RATIO [...] code = 2219) 33 U/L COMPREHENSIVE METABOLIC [id number] 00:00:00 Test Item Value Reference Range Interpretation Comments GLUCOSE (test code = 2217) 88 MG/DL BUN (test code = 2208) 14 MG/DL CREATININE (test code = 2214) 0.71 MG/DL eGFR (2020 CKD-EPI) (test 101 ML/MIN/1.73 code = 97371) CALC BUN/CREAT (test code = 20 RATIO [...] (test code = 2219) 33 U/L LIPID [id number] 00:00:00 Test Item Value Reference Range Interpretation Comments CHOLESTEROL (test code = 2210) 135 MG/DL TRIGLYCERIDES (test code = 2232) 147 MG/DL HDL CHOLESTEROL (test code = 2220) 31 MG/DL CALC LDL CHOL (test code = 2237) 80 MG/DL RISK RATIO LDL/HDL (test code = 2.58 RATIO 2238) LIPID [id number] 00:00:00 Test Item Value Reference Range Interpretation Comments CHOLESTEROL (test code = 2210) 135 MG/DL TRIGLYCERIDES (test code = 2232) 147 MG/DL HDL CHOLESTEROL (test code = 2220) 31 MG/DL CALC LDL CHOL (test code = 2237) 80 MG/DL RISK RATIO LDL/HDL (test code = 2.58 RATIO 2238) SEDIMENTATION [id number] 00:00:00 Test Item Value Reference Range Interpretation Comments SEDIMENTATION RATE (test code = 2 MM/HOUR 1017) SEDIMENTATION [id number] 00:00:00 Test Item Value Reference Range Interpretation Comments SEDIMENTATION RATE (test code = 2 MM/HOUR 1017) TSH, THIRD [id number] 00:00:00 Test Item Value Reference Range Interpretation Comments TSH, THIRD GENERATION (test code 1.220 UIU/ML = 2821) TSH, THIRD [id number] 00:00:00 Test Item Value Reference Range Interpretation Comments TSH, THIRD GENERATION (test code 1.220 UIU/ML = 2821) TSH, THIRD [id number] 00:00:00 Test Item Value Reference Range Interpretation Comments TSH, THIRD GENERATION (test code 1.220 UIU/ML = 2821) CCP [id number] 00:00:00 Test Item Value Reference Range Interpretation Comments CCP IgG (test code = 57895) <0.5 U/ML CCP [id number] 00:00:00 Test Item Value Reference Range Interpretation Comments CCP IgG (test code = 20658) <0.5 U/ML CCP [id number] 00:00:00 Test Item Value Reference Range Interpretation Comments CCP IgG (test code = 98372) <0.5 U/ML RHEUMATOID FACTOR, [id number] 00:00:00 Test Item Value Reference Range Interpretation Comments RHEUMATOID FACTOR, QUANT (test code <10 IU/ML = 3502) RHEUMATOID FACTOR, [id number] 00:00:00 Test Item Value Reference Range Interpretation Comments RHEUMATOID FACTOR, QUANT (test code <10 IU/ML = 3502) RHEUMATOID FACTOR, [id number] 00:00:00 Test Item Value Reference Range Interpretation Comments RHEUMATOID FACTOR, QUANT (test code <10 IU/ML = 3502) URIC [id number] 00:00:00 Test Item Value Reference Range Interpretation Comments URIC ACID (test code = 2233) 7.4 MG/DL URIC [id number] 00:00:00 Test Item Value Reference Range Interpretation Comments URIC ACID (test code = 2233) 7.4 MG/DL HEMOGLOBIN [id number] 00:00:00 Test Item Value Reference Range Interpretation Comments HEMOGLOBIN A1c (test code = 84935) 5.4 % HEMOGLOBIN [id number] 00:00:00 Test Item Value Reference Range Interpretation Comments HEMOGLOBIN A1c (test code = 71732) 5.4 % HEMOGLOBIN [id number] 00:00:00 Test Item Value Reference Range Interpretation Comments HEMOGLOBIN A1c (test code = 51488) 5.4 % COMPREHENSIVE METABOLIC [id number] 00:00:00 Test Item Value Reference Range Interpretation Comments GLUCOSE (test code = 2217) 88 MG/DL BUN (test code = 2208) 14 MG/DL CREATININE (test code = 2214) 0.71 MG/DL eGFR (2020 CKD-EPI) (test 101 ML/MIN/1.73 code = 35284) CALC BUN/CREAT (test code = 20 RATIO [...] code = 2219) 33 U/L COMPREHENSIVE METABOLIC [id number] 00:00:00 Test Item Value Reference Range Interpretation Comments GLUCOSE (test code = 2217) 88 MG/DL BUN (test code = 2208) 14 MG/DL CREATININE (test code = 2214) 0.71 MG/DL eGFR (2020 CKD-EPI) (test 101 ML/MIN/1.73 code = 76673) CALC BUN/CREAT (test code = 20 RATIO [...] (test code = 2219) 33 U/L LIPID [id number] 00:00:00 Test Item Value Reference Range Interpretation Comments CHOLESTEROL (test code = 2210) 135 MG/DL TRIGLYCERIDES (test code = 2232) 147 MG/DL HDL CHOLESTEROL (test code = 2220) 31 MG/DL CALC LDL CHOL (test code = 2237) 80 MG/DL RISK RATIO LDL/HDL (test code = 2.58 RATIO 2238) LIPID [id number] 00:00:00 Test Item Value Reference Range Interpretation Comments CHOLESTEROL (test code = 2210) 135 MG/DL TRIGLYCERIDES (test code = 2232) 147 MG/DL HDL CHOLESTEROL (test code = 2220) 31 MG/DL CALC LDL CHOL (test code = 2237) 80 MG/DL RISK RATIO LDL/HDL (test code = 2.58 RATIO 2238) SEDIMENTATION [id number] 00:00:00 Test Item Value Reference Range Interpretation Comments SEDIMENTATION RATE (test code = 2 MM/HOUR 1017) SEDIMENTATION [id number] 00:00:00 Test Item Value Reference Range Interpretation Comments SEDIMENTATION RATE (test code = 2 MM/HOUR 1017) TSH, THIRD [id number] 00:00:00 Test Item Value Reference Range Interpretation Comments TSH, THIRD GENERATION (test code 1.220 UIU/ML = 2821) TSH, THIRD [id number] 00:00:00 Test Item Value Reference Range Interpretation Comments TSH, THIRD GENERATION (test code 1.220 UIU/ML = 2821) TSH, THIRD [id number] 00:00:00 Test Item Value Reference Range Interpretation Comments TSH, THIRD GENERATION (test code 1.220 UIU/ML = 2821) CCP [id number] 00:00:00 Test Item Value Reference Range Interpretation Comments CCP IgG (test code = 80934) <0.5 U/ML CCP [id number] 00:00:00 Test Item Value Reference Range Interpretation Comments CCP IgG (test code = 94402) <0.5 U/ML CCP [id number] 00:00:00 Test Item Value Reference Range Interpretation Comments CCP IgG (test code = 90667) <0.5 U/ML RHEUMATOID FACTOR, [id number] 00:00:00 Test Item Value Reference Range Interpretation Comments RHEUMATOID FACTOR, QUANT (test code <10 IU/ML = 3502) RHEUMATOID FACTOR, [id number] 00:00:00 Test Item Value Reference Range Interpretation Comments RHEUMATOID FACTOR, QUANT (test code <10 IU/ML = 3502) RHEUMATOID FACTOR, [id number] 00:00:00 Test Item Value Reference Range Interpretation Comments RHEUMATOID FACTOR, QUANT (test code <10 IU/ML = 3502) URIC [id number] 00:00:00 Test Item Value Reference Range Interpretation Comments URIC ACID (test code = 2233) 7.4 MG/DL URIC [id number] 00:00:00 Test Item Value Reference Range Interpretation Comments URIC ACID (test code = 2233) 7.4 MG/DL HEMOGLOBIN [id number] 00:00:00 Test Item Value Reference Range Interpretation Comments HEMOGLOBIN A1c (test code = 73506) 5.4 % HEMOGLOBIN [id number] 00:00:00 Test Item Value Reference Range Interpretation Comments HEMOGLOBIN A1c (test code = 30006) 5.4 % HEMOGLOBIN [id number] 00:00:00 Test Item Value Reference Range Interpretation Comments HEMOGLOBIN A1c (test code = 55462) 5.4 % COMPREHENSIVE METABOLIC [id number] 00:00:00 Test Item Value Reference Range Interpretation Comments GLUCOSE (test code = 2217) 88 MG/DL BUN (test code = 2208) 14 MG/DL CREATININE (test code = 2214) 0.71 MG/DL eGFR (2020 CKD-EPI) (test 101 ML/MIN/1.73 code = 68262) CALC BUN/CREAT (test code = 20 RATIO [...] code = 2219) 33 U/L COMPREHENSIVE METABOLIC [id number] 00:00:00 Test Item Value Reference Range Interpretation Comments GLUCOSE (test code = 2217) 88 MG/DL BUN (test code = 2208) 14 MG/DL CREATININE (test code = 2214) 0.71 MG/DL eGFR (2020 CKD-EPI) (test 101 ML/MIN/1.73 code = 14868) CALC BUN/CREAT (test code = 20 RATIO [...] (test code = 2219) 33 U/L LIPID [id number] 00:00:00 Test Item Value Reference Range Interpretation Comments CHOLESTEROL (test code = 2210) 135 MG/DL TRIGLYCERIDES (test code = 2232) 147 MG/DL HDL CHOLESTEROL (test code = 2220) 31 MG/DL CALC LDL CHOL (test code = 2237) 80 MG/DL RISK RATIO LDL/HDL (test code = 2.58 RATIO 2238) LIPID [id number] 00:00:00 Test Item Value Reference Range Interpretation Comments CHOLESTEROL (test code = 2210) 135 MG/DL TRIGLYCERIDES (test code = 2232) 147 MG/DL HDL CHOLESTEROL (test code = 2220) 31 MG/DL CALC LDL CHOL (test code = 2237) 80 MG/DL RISK RATIO LDL/HDL (test code = 2.58 RATIO 2238) SEDIMENTATION [id number] 00:00:00 Test Item Value Reference Range Interpretation Comments SEDIMENTATION RATE (test code = 2 MM/HOUR 1017) SEDIMENTATION [id number] 00:00:00 Test Item Value Reference Range Interpretation Comments SEDIMENTATION RATE (test code = 2 MM/HOUR 1017) TSH, THIRD [id number] 00:00:00 Test Item Value Reference Range Interpretation Comments TSH, THIRD GENERATION (test code 1.220 UIU/ML = 2821) TSH, THIRD [id number] 00:00:00 Test Item Value Reference Range Interpretation Comments TSH, THIRD GENERATION (test code 1.220 UIU/ML = 2821) TSH, THIRD [id number] 00:00:00 Test Item Value Reference Range Interpretation Comments TSH, THIRD GENERATION (test code 1.220 UIU/ML = 2821) CCP [id number] 00:00:00 Test Item Value Reference Range Interpretation Comments CCP IgG (test code = 77543) <0.5 U/ML CCP [id number] 00:00:00 Test Item Value Reference Range Interpretation Comments CCP IgG (test code = 16667) <0.5 U/ML CCP [id number] 00:00:00 Test Item Value Reference Range Interpretation Comments CCP IgG (test code = 61626) <0.5 U/ML RHEUMATOID FACTOR, [id number] 00:00:00 Test Item Value Reference Range Interpretation Comments RHEUMATOID FACTOR, QUANT (test code <10 IU/ML = 3502) RHEUMATOID FACTOR, [id number] 00:00:00 Test Item Value Reference Range Interpretation Comments RHEUMATOID FACTOR, QUANT (test code <10 IU/ML = 3502) RHEUMATOID FACTOR, [id number] 00:00:00 Test Item Value Reference Range Interpretation Comments RHEUMATOID FACTOR, QUANT (test code <10 IU/ML = 3502) URIC [id number] 00:00:00 Test Item Value Reference Range Interpretation Comments URIC ACID (test code = 2233) 7.4 MG/DL URIC [id number] 00:00:00 Test Item Value Reference Range Interpretation Comments URIC ACID (test code = 2233) 7.4 MG/DL HEMOGLOBIN [id number] 00:00:00 Test Item Value Reference Range Interpretation Comments HEMOGLOBIN A1c (test code = 22873) 5.4 % HEMOGLOBIN [id number] 00:00:00 Test Item Value Reference Range Interpretation Comments HEMOGLOBIN A1c (test code = 91719) 5.4 % HEMOGLOBIN [id number] 00:00:00 Test Item Value Reference Range Interpretation Comments HEMOGLOBIN A1c (test code = 21882) 5.4 % COMPREHENSIVE METABOLIC [id number] 00:00:00 Test Item Value Reference Range Interpretation Comments GLUCOSE (test code = 2217) 88 MG/DL BUN (test code = 2208) 14 MG/DL CREATININE (test code = 2214) 0.71 MG/DL eGFR (2020 CKD-EPI) (test 101 ML/MIN/1.73 code = 66003) CALC BUN/CREAT (test code = 20 RATIO [...] code = 2219) 33 U/L COMPREHENSIVE METABOLIC [id number] 00:00:00 Test Item Value Reference Range Interpretation Comments GLUCOSE (test code = 2217) 88 MG/DL BUN (test code = 2208) 14 MG/DL CREATININE (test code = 2214) 0.71 MG/DL eGFR (2020 CKD-EPI) (test 101 ML/MIN/1.73 code = 81691) CALC BUN/CREAT (test code = 20 RATIO [...] (test code = 2219) 33 U/L LIPID [id number] 00:00:00 Test Item Value Reference Range Interpretation Comments CHOLESTEROL (test code = 2210) 135 MG/DL TRIGLYCERIDES (test code = 2232) 147 MG/DL HDL CHOLESTEROL (test code = 2220) 31 MG/DL CALC LDL CHOL (test code = 2237) 80 MG/DL RISK RATIO LDL/HDL (test code = 2.58 RATIO 2238) LIPID [id number] 00:00:00 Test Item Value Reference Range Interpretation Comments CHOLESTEROL (test code = 2210) 135 MG/DL TRIGLYCERIDES (test code = 2232) 147 MG/DL HDL CHOLESTEROL (test code = 2220) 31 MG/DL CALC LDL CHOL (test code = 2237) 80 MG/DL RISK RATIO LDL/HDL (test code = 2.58 RATIO 2238) SEDIMENTATION [id number] 00:00:00 Test Item Value Reference Range Interpretation Comments SEDIMENTATION RATE (test code = 2 MM/HOUR 1017) SEDIMENTATION [id number] 00:00:00 Test Item Value Reference Range Interpretation Comments SEDIMENTATION RATE (test code = 2 MM/HOUR 1017) TSH, THIRD [id number] 00:00:00 Test Item Value Reference Range Interpretation Comments TSH, THIRD GENERATION (test code 1.220 UIU/ML = 2821) TSH, THIRD [id number] 00:00:00 Test Item Value Reference Range Interpretation Comments TSH, THIRD GENERATION (test code 1.220 UIU/ML = 2821) TSH, THIRD [id number] 00:00:00 Test Item Value Reference Range Interpretation Comments TSH, THIRD GENERATION (test code 1.220 UIU/ML = 2821) CCP [id number] 00:00:00 Test Item Value Reference Range Interpretation Comments CCP IgG (test code = 98688) <0.5 U/ML CCP [id number] 00:00:00 Test Item Value Reference Range Interpretation Comments CCP IgG (test code = 43715) <0.5 U/ML CCP [id number] 00:00:00 Test Item Value Reference Range Interpretation Comments CCP IgG (test code = 27131) <0.5 U/ML RHEUMATOID FACTOR, [id number] 00:00:00 Test Item Value Reference Range Interpretation Comments RHEUMATOID FACTOR, QUANT (test code <10 IU/ML = 3502) RHEUMATOID FACTOR, [id number] 00:00:00 Test Item Value Reference Range Interpretation Comments RHEUMATOID FACTOR, QUANT (test code <10 IU/ML = 3502) RHEUMATOID FACTOR, [id number] 00:00:00 Test Item Value Reference Range Interpretation Comments RHEUMATOID FACTOR, QUANT (test code <10 IU/ML = 3502) URIC [id number] 00:00:00 Test Item Value Reference Range Interpretation Comments URIC ACID (test code = 2233) 7.4 MG/DL URIC [id number] 00:00:00 Test Item Value Reference Range Interpretation Comments URIC ACID (test code = 2233) 7.4 MG/DL HEMOGLOBIN [id number] 00:00:00 Test Item Value Reference Range Interpretation Comments HEMOGLOBIN A1c (test code = 19481) 5.4 % HEMOGLOBIN [id number] 00:00:00 Test Item Value Reference Range Interpretation Comments HEMOGLOBIN A1c (test code = 30856) 5.4 % HEMOGLOBIN [id number] 00:00:00 Test Item Value Reference Range Interpretation Comments HEMOGLOBIN A1c (test code = 84906) 5.4 % COMPREHENSIVE METABOLIC [id number] 00:00:00 Test Item Value Reference Range Interpretation Comments GLUCOSE (test code = 2217) 88 MG/DL BUN (test code = 2208) 14 MG/DL CREATININE (test code = 2214) 0.71 MG/DL eGFR (2020 CKD-EPI) (test 101 ML/MIN/1.73 code = 76565) CALC BUN/CREAT (test code = 20 RATIO [...] code = 2219) 33 U/L COMPREHENSIVE METABOLIC [id number] 00:00:00 Test Item Value Reference Range Interpretation Comments GLUCOSE (test code = 2217) 88 MG/DL BUN (test code = 2208) 14 MG/DL CREATININE (test code = 2214) 0.71 MG/DL eGFR (2020 CKD-EPI) (test 101 ML/MIN/1.73 code = 53424) CALC BUN/CREAT (test code = 20 RATIO [...] (test code = 2219) 33 U/L LIPID [id number] 00:00:00 Test Item Value Reference Range Interpretation Comments CHOLESTEROL (test code = 2210) 135 MG/DL TRIGLYCERIDES (test code = 2232) 147 MG/DL HDL CHOLESTEROL (test code = 2220) 31 MG/DL CALC LDL CHOL (test code = 2237) 80 MG/DL RISK RATIO LDL/HDL (test code = 2.58 RATIO 2238) LIPID [id number] 00:00:00 Test Item Value Reference Range Interpretation Comments CHOLESTEROL (test code = 2210) 135 MG/DL TRIGLYCERIDES (test code = 2232) 147 MG/DL HDL CHOLESTEROL (test code = 2220) 31 MG/DL CALC LDL CHOL (test code = 2237) 80 MG/DL RISK RATIO LDL/HDL (test code = 2.58 RATIO 2238) SEDIMENTATION [id number] 00:00:00 Test Item Value Reference Range Interpretation Comments SEDIMENTATION RATE (test code = 2 MM/HOUR 1017) SEDIMENTATION [id number] 00:00:00 Test Item Value Reference Range Interpretation Comments SEDIMENTATION RATE (test code = 2 MM/HOUR 1017) TSH, THIRD [id number] 00:00:00 Test Item Value Reference Range Interpretation Comments TSH, THIRD GENERATION (test code 1.220 UIU/ML = 2821) TSH, THIRD [id number] 00:00:00 Test Item Value Reference Range Interpretation Comments TSH, THIRD GENERATION (test code 1.220 UIU/ML = 2821) TSH, THIRD [id number] 00:00:00 Test Item Value Reference Range Interpretation Comments TSH, THIRD GENERATION (test code 1.220 UIU/ML = 2821) CCP [id number] 00:00:00 Test Item Value Reference Range Interpretation Comments CCP IgG (test code = 41624) <0.5 U/ML CCP [id number] 00:00:00 Test Item Value Reference Range Interpretation Comments CCP IgG (test code = 43537) <0.5 U/ML CCP [id number] 00:00:00 Test Item Value Reference Range Interpretation Comments CCP IgG (test code = 70422) <0.5 U/ML RHEUMATOID FACTOR, [id number] 00:00:00 Test Item Value Reference Range Interpretation Comments RHEUMATOID FACTOR, QUANT (test code <10 IU/ML = 3502) RHEUMATOID FACTOR, [id number] 00:00:00 Test Item Value Reference Range Interpretation Comments RHEUMATOID FACTOR, QUANT (test code <10 IU/ML = 3502) RHEUMATOID FACTOR, [id number] 00:00:00 Test Item Value Reference Range Interpretation Comments RHEUMATOID FACTOR, QUANT (test code <10 IU/ML = 3502) URIC [id number] 00:00:00 Test Item Value Reference Range Interpretation Comments URIC ACID (test code = 2233) 7.4 MG/DL URIC [id number] 00:00:00 Test Item Value Reference Range Interpretation Comments URIC ACID (test code = 2233) 7.4 MG/DL HEMOGLOBIN [id number] 00:00:00 Test Item Value Reference Range Interpretation Comments HEMOGLOBIN A1c (test code = 32961) 5.4 % HEMOGLOBIN [id number] 00:00:00 Test Item Value Reference Range Interpretation Comments HEMOGLOBIN A1c (test code = 59103) 5.4 % HEMOGLOBIN [id number] 00:00:00 Test Item Value Reference Range Interpretation Comments HEMOGLOBIN A1c (test code = 36709) 5.4 % COMPREHENSIVE METABOLIC [id number] 00:00:00 Test Item Value Reference Range Interpretation Comments GLUCOSE (test code = 2217) 88 MG/DL BUN (test code = 2208) 14 MG/DL CREATININE (test code = 2214) 0.71 MG/DL eGFR (2020 CKD-EPI) (test 101 ML/MIN/1.73 code = 18697) CALC BUN/CREAT (test code = 20 RATIO [...] code = 2219) 33 U/L COMPREHENSIVE METABOLIC [id number] 00:00:00 Test Item Value Reference Range Interpretation Comments GLUCOSE (test code = 2217) 88 MG/DL BUN (test code = 2208) 14 MG/DL CREATININE (test code = 2214) 0.71 MG/DL eGFR (2020 CKD-EPI) (test 101 ML/MIN/1.73 code = 49373) CALC BUN/CREAT (test code = 20 RATIO [...] (test code = 2219) 33 U/L LIPID [id number] 00:00:00 Test Item Value Reference Range Interpretation Comments CHOLESTEROL (test code = 2210) 135 MG/DL TRIGLYCERIDES (test code = 2232) 147 MG/DL HDL CHOLESTEROL (test code = 2220) 31 MG/DL CALC LDL CHOL (test code = 2237) 80 MG/DL RISK RATIO LDL/HDL (test code = 2.58 RATIO 2238) LIPID [id number] 00:00:00 Test Item Value Reference Range Interpretation Comments CHOLESTEROL (test code = 2210) 135 MG/DL TRIGLYCERIDES (test code = 2232) 147 MG/DL HDL CHOLESTEROL (test code = 2220) 31 MG/DL CALC LDL CHOL (test code = 2237) 80 MG/DL RISK RATIO LDL/HDL (test code = 2.58 RATIO 2238) SEDIMENTATION [id number] 00:00:00 Test Item Value Reference Range Interpretation Comments SEDIMENTATION RATE (test code = 2 MM/HOUR 1017) SEDIMENTATION [id number] 00:00:00 Test Item Value Reference Range Interpretation Comments SEDIMENTATION RATE (test code = 2 MM/HOUR 1017) TSH, THIRD [id number] 00:00:00 Test Item Value Reference Range Interpretation Comments TSH, THIRD GENERATION (test code 1.220 UIU/ML = 2821) TSH, THIRD [id number] 00:00:00 Test Item Value Reference Range Interpretation Comments TSH, THIRD GENERATION (test code 1.220 UIU/ML = 2821) TSH, THIRD [id number] 00:00:00 Test Item Value Reference Range Interpretation Comments TSH, THIRD GENERATION (test code 1.220 UIU/ML = 2821) CCP [id number] 00:00:00 Test Item Value Reference Range Interpretation Comments CCP IgG (test code = 26835) <0.5 U/ML CCP [id number] 00:00:00 Test Item Value Reference Range Interpretation Comments CCP IgG (test code = 53082) <0.5 U/ML CCP [id number] 00:00:00 Test Item Value Reference Range Interpretation Comments CCP IgG (test code = 51458) <0.5 U/ML RHEUMATOID FACTOR, [id number] 00:00:00 Test Item Value Reference Range Interpretation Comments RHEUMATOID FACTOR, QUANT (test code <10 IU/ML = 3502) RHEUMATOID FACTOR, [id number] 00:00:00 Test Item Value Reference Range Interpretation Comments RHEUMATOID FACTOR, QUANT (test code <10 IU/ML = 3502) RHEUMATOID FACTOR, [id number] 00:00:00 Test Item Value Reference Range Interpretation Comments RHEUMATOID FACTOR, QUANT (test code <10 IU/ML = 3502) URIC [id number] 00:00:00 Test Item Value Reference Range Interpretation Comments URIC ACID (test code = 2233) 7.4 MG/DL URIC [id number] 00:00:00 Test Item Value Reference Range Interpretation Comments URIC ACID (test code = 2233) 7.4 MG/DL HEMOGLOBIN [id number] 00:00:00 Test Item Value Reference Range Interpretation Comments HEMOGLOBIN A1c (test code = 17344) 5.4 % HEMOGLOBIN [id number] 00:00:00 Test Item Value Reference Range Interpretation Comments HEMOGLOBIN A1c (test code = 33552) 5.4 % HEMOGLOBIN [id number] 00:00:00 Test Item Value Reference Range Interpretation Comments HEMOGLOBIN A1c (test code = 83419) 5.4 % COMPREHENSIVE METABOLIC [id number] 00:00:00 Test Item Value Reference Range Interpretation Comments GLUCOSE (test code = 2217) 88 MG/DL BUN (test code = 2208) 14 MG/DL CREATININE (test code = 2214) 0.71 MG/DL eGFR (2020 CKD-EPI) (test 101 ML/MIN/1.73 code = 32906) CALC BUN/CREAT (test code = 20 RATIO [...] code = 2219) 33 U/L COMPREHENSIVE METABOLIC [id number] 00:00:00 Test Item Value Reference Range Interpretation Comments GLUCOSE (test code = 2217) 88 MG/DL BUN (test code = 2208) 14 MG/DL CREATININE (test code = 2214) 0.71 MG/DL eGFR (2020 CKD-EPI) (test 101 ML/MIN/1.73 code = 65826) CALC BUN/CREAT (test code = 20 RATIO [...] (test code = 2219) 33 U/L LIPID [id number] 00:00:00 Test Item Value Reference Range Interpretation Comments CHOLESTEROL (test code = 2210) 135 MG/DL TRIGLYCERIDES (test code = 2232) 147 MG/DL HDL CHOLESTEROL (test code = 2220) 31 MG/DL CALC LDL CHOL (test code = 2237) 80 MG/DL RISK RATIO LDL/HDL (test code = 2.58 RATIO 2238) LIPID [id number] 00:00:00 Test Item Value Reference Range Interpretation Comments CHOLESTEROL (test code = 2210) 135 MG/DL TRIGLYCERIDES (test code = 2232) 147 MG/DL HDL CHOLESTEROL (test code = 2220) 31 MG/DL CALC LDL CHOL (test code = 2237) 80 MG/DL RISK RATIO LDL/HDL (test code = 2.58 RATIO 2238) SEDIMENTATION [id number] 00:00:00 Test Item Value Reference Range Interpretation Comments SEDIMENTATION RATE (test code = 2 MM/HOUR 1017) SEDIMENTATION [id number] 00:00:00 Test Item Value Reference Range Interpretation Comments SEDIMENTATION RATE (test code = 2 MM/HOUR 1017) TSH, THIRD [id number] 00:00:00 Test Item Value Reference Range Interpretation Comments TSH, THIRD GENERATION (test code 1.220 UIU/ML = 2821) TSH, THIRD [id number] 00:00:00 Test Item Value Reference Range Interpretation Comments TSH, THIRD GENERATION (test code 1.220 UIU/ML = 2821) TSH, THIRD [id number] 00:00:00 Test Item Value Reference Range Interpretation Comments TSH, THIRD GENERATION (test code 1.220 UIU/ML = 2821) CCP [id number] 00:00:00 Test Item Value Reference Range Interpretation Comments CCP IgG (test code = 69978) <0.5 U/ML CCP [id number] 00:00:00 Test Item Value Reference Range Interpretation Comments CCP IgG (test code = 97540) <0.5 U/ML CCP [id number] 00:00:00 Test Item Value Reference Range Interpretation Comments CCP IgG (test code = 12180) <0.5 U/ML RHEUMATOID FACTOR, [id number] 00:00:00 Test Item Value Reference Range Interpretation Comments RHEUMATOID FACTOR, QUANT (test code <10 IU/ML = 3502) RHEUMATOID FACTOR, [id number] 00:00:00 Test Item Value Reference Range Interpretation Comments RHEUMATOID FACTOR, QUANT (test code <10 IU/ML = 3502) RHEUMATOID FACTOR, [id number] 00:00:00 Test Item Value Reference Range Interpretation Comments RHEUMATOID FACTOR, QUANT (test code <10 IU/ML = 3502) URIC [id number] 00:00:00 Test Item Value Reference Range Interpretation Comments URIC ACID (test code = 2233) 7.4 MG/DL URIC [id number] 00:00:00 Test Item Value Reference Range Interpretation Comments URIC ACID (test code = 2233) 7.4 MG/DL HEMOGLOBIN [id number] 00:00:00 Test Item Value Reference Range Interpretation Comments HEMOGLOBIN A1c (test code = 67677) 5.4 % HEMOGLOBIN [id number] 00:00:00 Test Item Value Reference Range Interpretation Comments HEMOGLOBIN A1c (test code = 48972) 5.4 % HEMOGLOBIN [id number] 00:00:00 Test Item Value Reference Range Interpretation Comments HEMOGLOBIN A1c (test code = 72425) 5.4 % COMPREHENSIVE METABOLIC [id number] 00:00:00 Test Item Value Reference Range Interpretation Comments GLUCOSE (test code = 2217) 88 MG/DL BUN (test code = 2208) 14 MG/DL CREATININE (test code = 2214) 0.71 MG/DL eGFR (2020 CKD-EPI) (test 101 ML/MIN/1.73 code = 54442) CALC BUN/CREAT (test code = 20 RATIO [...] code = 2219) 33 U/L COMPREHENSIVE METABOLIC [id number] 00:00:00 Test Item Value Reference Range Interpretation Comments GLUCOSE (test code = 2217) 88 MG/DL BUN (test code = 2208) 14 MG/DL CREATININE (test code = 2214) 0.71 MG/DL eGFR (2020 CKD-EPI) (test 101 ML/MIN/1.73 code = 62112) CALC BUN/CREAT (test code = 20 RATIO [...] (test code = 2219) 33 U/L LIPID [id number] 00:00:00 Test Item Value Reference Range Interpretation Comments CHOLESTEROL (test code = 2210) 135 MG/DL TRIGLYCERIDES (test code = 2232) 147 MG/DL HDL CHOLESTEROL (test code = 2220) 31 MG/DL CALC LDL CHOL (test code = 2237) 80 MG/DL RISK RATIO LDL/HDL (test code = 2.58 RATIO 2238) LIPID [id number] 00:00:00 Test Item Value Reference Range Interpretation Comments CHOLESTEROL (test code = 2210) 135 MG/DL TRIGLYCERIDES (test code = 2232) 147 MG/DL HDL CHOLESTEROL (test code = 2220) 31 MG/DL CALC LDL CHOL (test code = 2237) 80 MG/DL RISK RATIO LDL/HDL (test code = 2.58 RATIO 2238) SEDIMENTATION [id number] 00:00:00 Test Item Value Reference Range Interpretation Comments SEDIMENTATION RATE (test code = 2 MM/HOUR 1017) SEDIMENTATION [id number] 00:00:00 Test Item Value Reference Range Interpretation Comments SEDIMENTATION RATE (test code = 2 MM/HOUR 1017) TSH, THIRD [id number] 00:00:00 Test Item Value Reference Range Interpretation Comments TSH, THIRD GENERATION (test code 1.220 UIU/ML = 2821) TSH, THIRD [id number] 00:00:00 Test Item Value Reference Range Interpretation Comments TSH, THIRD GENERATION (test code 1.220 UIU/ML = 2821) TSH, THIRD [id number] 00:00:00 Test Item Value Reference Range Interpretation Comments TSH, THIRD GENERATION (test code 1.220 UIU/ML = 2821) CCP [id number] 00:00:00 Test Item Value Reference Range Interpretation Comments CCP IgG (test code = 83399) <0.5 U/ML CCP [id number] 00:00:00 Test Item Value Reference Range Interpretation Comments CCP IgG (test code = 81526) <0.5 U/ML CCP [id number] 00:00:00 Test Item Value Reference Range Interpretation Comments CCP IgG (test code = 49708) <0.5 U/ML RHEUMATOID FACTOR, [id number] 00:00:00 Test Item Value Reference Range Interpretation Comments RHEUMATOID FACTOR, QUANT (test code <10 IU/ML = 3502) RHEUMATOID FACTOR, [id number] 00:00:00 Test Item Value Reference Range Interpretation Comments RHEUMATOID FACTOR, QUANT (test code <10 IU/ML = 3502) RHEUMATOID FACTOR, [id number] 00:00:00 Test Item Value Reference Range Interpretation Comments RHEUMATOID FACTOR, QUANT (test code <10 IU/ML = 3502) URIC [id number] 00:00:00 Test Item Value Reference Range Interpretation Comments URIC ACID (test code = 2233) 7.4 MG/DL URIC [id number] 00:00:00 Test Item Value Reference Range Interpretation Comments URIC ACID (test code = 2233) 7.4 MG/DL HEMOGLOBIN [id number] 00:00:00 Test Item Value Reference Range Interpretation Comments HEMOGLOBIN A1c (test code = 93028) 5.4 % HEMOGLOBIN [id number] 00:00:00 Test Item Value Reference Range Interpretation Comments HEMOGLOBIN A1c (test code = 40371) 5.4 % HEMOGLOBIN [id number] 00:00:00 Test Item Value Reference Range Interpretation Comments HEMOGLOBIN A1c (test code = 66108) 5.4 % COMPREHENSIVE METABOLIC [id number] 00:00:00 Test Item Value Reference Range Interpretation Comments GLUCOSE (test code = 2217) 88 MG/DL BUN (test code = 2208) 14 MG/DL CREATININE (test code = 2214) 0.71 MG/DL eGFR (2020 CKD-EPI) (test 101 ML/MIN/1.73 code = 87127) CALC BUN/CREAT (test code = 20 RATIO [...] code = 2219) 33 U/L COMPREHENSIVE METABOLIC [id number] 00:00:00 Test Item Value Reference Range Interpretation Comments GLUCOSE (test code = 2217) 88 MG/DL BUN (test code = 2208) 14 MG/DL CREATININE (test code = 2214) 0.71 MG/DL eGFR (2020 CKD-EPI) (test 101 ML/MIN/1.73 code = 76497) CALC BUN/CREAT (test code = 20 RATIO [...] (test code = 2219) 33 U/L LIPID [id number] 00:00:00 Test Item Value Reference Range Interpretation Comments CHOLESTEROL (test code = 2210) 135 MG/DL TRIGLYCERIDES (test code = 2232) 147 MG/DL HDL CHOLESTEROL (test code = 2220) 31 MG/DL CALC LDL CHOL (test code = 2237) 80 MG/DL RISK RATIO LDL/HDL (test code = 2.58 RATIO 2238) LIPID [id number] 00:00:00 Test Item Value Reference Range Interpretation Comments CHOLESTEROL (test code = 2210) 135 MG/DL TRIGLYCERIDES (test code = 2232) 147 MG/DL HDL CHOLESTEROL (test code = 2220) 31 MG/DL CALC LDL CHOL (test code = 2237) 80 MG/DL RISK RATIO LDL/HDL (test code = 2.58 RATIO 2238) SEDIMENTATION [id number] 00:00:00 Test Item Value Reference Range Interpretation Comments SEDIMENTATION RATE (test code = 2 MM/HOUR 1017) SEDIMENTATION [id number] 00:00:00 Test Item Value Reference Range Interpretation Comments SEDIMENTATION RATE (test code = 2 MM/HOUR 1017) TSH, THIRD [id number] 00:00:00 Test Item Value Reference Range Interpretation Comments TSH, THIRD GENERATION (test code 1.220 UIU/ML = 2821) TSH, THIRD [id number] 00:00:00 Test Item Value Reference Range Interpretation Comments TSH, THIRD GENERATION (test code 1.220 UIU/ML = 2821) TSH, THIRD [id number] 00:00:00 Test Item Value Reference Range Interpretation Comments TSH, THIRD GENERATION (test code 1.220 UIU/ML = 2821) CCP [id number] 00:00:00 Test Item Value Reference Range Interpretation Comments CCP IgG (test code = 42862) <0.5 U/ML CCP [id number] 00:00:00 Test Item Value Reference Range Interpretation Comments CCP IgG (test code = 02479) <0.5 U/ML CCP [id number] 00:00:00 Test Item Value Reference Range Interpretation Comments CCP IgG (test code = 82579) <0.5 U/ML RHEUMATOID FACTOR, [id number] 00:00:00 Test Item Value Reference Range Interpretation Comments RHEUMATOID FACTOR, QUANT (test code <10 IU/ML = 3502) RHEUMATOID FACTOR, [id number] 00:00:00 Test Item Value Reference Range Interpretation Comments RHEUMATOID FACTOR, QUANT (test code <10 IU/ML = 3502) RHEUMATOID FACTOR, [id number] 00:00:00 Test Item Value Reference Range Interpretation Comments RHEUMATOID FACTOR, QUANT (test code <10 IU/ML = 3502) URIC [id number] 00:00:00 Test Item Value Reference Range Interpretation Comments URIC ACID (test code = 2233) 7.4 MG/DL URIC [id number] 00:00:00 Test Item Value Reference Range Interpretation Comments URIC ACID (test code = 2233) 7.4 MG/DL HEMOGLOBIN [id number] 00:00:00 Test Item Value Reference Range Interpretation Comments HEMOGLOBIN A1c (test code = 64663) 5.4 % HEMOGLOBIN [id number] 00:00:00 Test Item Value Reference Range Interpretation Comments HEMOGLOBIN A1c (test code = 46917) 5.4 % HEMOGLOBIN [id number] 00:00:00 Test Item Value Reference Range Interpretation Comments HEMOGLOBIN A1c (test code = 43604) 5.4 % COMPREHENSIVE METABOLIC [id number] 00:00:00 Test Item Value Reference Range Interpretation Comments GLUCOSE (test code = 2217) 88 MG/DL BUN (test code = 2208) 14 MG/DL CREATININE (test code = 2214) 0.71 MG/DL eGFR (2020 CKD-EPI) (test 101 ML/MIN/1.73 code = 13305) CALC BUN/CREAT (test code = 20 RATIO [...] code = 2219) 33 U/L COMPREHENSIVE METABOLIC [id number] 00:00:00 Test Item Value Reference Range Interpretation Comments GLUCOSE (test code = 2217) 88 MG/DL BUN (test code = 2208) 14 MG/DL CREATININE (test code = 2214) 0.71 MG/DL eGFR (2020 CKD-EPI) (test 101 ML/MIN/1.73 code = 44924) CALC BUN/CREAT (test code = 20 RATIO [...] (test code = 2219) 33 U/L LIPID [id number] 00:00:00 Test Item Value Reference Range Interpretation Comments CHOLESTEROL (test code = 2210) 135 MG/DL TRIGLYCERIDES (test code = 2232) 147 MG/DL HDL CHOLESTEROL (test code = 2220) 31 MG/DL CALC LDL CHOL (test code = 2237) 80 MG/DL RISK RATIO LDL/HDL (test code = 2.58 RATIO 2238) LIPID [id number] 00:00:00 Test Item Value Reference Range Interpretation Comments CHOLESTEROL (test code = 2210) 135 MG/DL TRIGLYCERIDES (test code = 2232) 147 MG/DL HDL CHOLESTEROL (test code = 2220) 31 MG/DL CALC LDL CHOL (test code = 2237) 80 MG/DL RISK RATIO LDL/HDL (test code = 2.58 RATIO 2238) SEDIMENTATION [id number] 00:00:00 Test Item Value Reference Range Interpretation Comments SEDIMENTATION RATE (test code = 2 MM/HOUR 1017) SEDIMENTATION [id number] 00:00:00 Test Item Value Reference Range Interpretation Comments SEDIMENTATION RATE (test code = 2 MM/HOUR 1017) TSH, THIRD [id number] 00:00:00 Test Item Value Reference Range Interpretation Comments TSH, THIRD GENERATION (test code 1.220 UIU/ML = 2821) TSH, THIRD [id number] 00:00:00 Test Item Value Reference Range Interpretation Comments TSH, THIRD GENERATION (test code 1.220 UIU/ML = 2821) TSH, THIRD [id number] 00:00:00 Test Item Value Reference Range Interpretation Comments TSH, THIRD GENERATION (test code 1.220 UIU/ML = 2821) CCP [id number] 00:00:00 Test Item Value Reference Range Interpretation Comments CCP IgG (test code = 19437) <0.5 U/ML CCP [id number] 00:00:00 Test Item Value Reference Range Interpretation Comments CCP IgG (test code = 49776) <0.5 U/ML CCP [id number] 00:00:00 Test Item Value Reference Range Interpretation Comments CCP IgG (test code = 35946) <0.5 U/ML HEPATITIS PANEL, [id number] 04:33:04 Test Item Value Reference Range Interpretation [...] B: (test serology shows no code = 16244) evidence of pa st exposure to orcurrent infec tion with hepatitis B virus. No evide nce of hepatitis Bimmunization i s identified. INTERPRETATION (NOTE) Hepatitis C HEPATITIS C: (test serology shows no code = 14853) evidence of ex posure to hepatitisC v irus at this time. I t can take up to 12 m onths after exposure tothe hepatitis C vir us for antibodies to become detectab le in the blood in ce rtain patients. [id number] 03:36:41 Test Item Value Reference Range Interpretation Comments GGT (test code = 39 U/L <40 UNLESS OTH ERWISE INDICATED, 2215) ALL TESTING PER [facility] [place] [address] [place] [address] 10 LABORATORY DIRE CTOR: TANNER VELASQUEZ M.D. CLIA NUMBER [id number] [place]. [id number] COMPREHENSIVE METABOLIC [id number] 03:35:34 Test Item Value Reference Range Interpretation Comments GLUCOSE (test code = 98 MG/DL 70-99 2216) BUN (test code = 12 MG/DL -2207) CREATININE (test 0.70 MG/DL 0.60-1.30 code = 2214) eGFR (2020 CKD-EPI) 103 >60 (test code = 17945) ML/MIN/1.73 CALC BUN/CREAT (test 17 RATIO 6-28 code = 2235) SODIUM (test code = 140 MEQ/L 172-045 5674) POTASSIUM (test code 4.6 MEQ/L 3.5-5.4 = [...] = 29 U/L 5-40 2218) COMPREHENSIVE METABOLIC [id number] 00:00:00 Test Item Value Reference Range Interpretation Comments GLUCOSE (test code = 2217) 98 MG/DL BUN (test code = 2208) 12 MG/DL CREATININE (test code = 2214) 0.70 MG/DL eGFR (2020 CKD-EPI) (test 103 ML/MIN/1.73 code = 91477) CALC BUN/CREAT (test code = 17 RATIO [...] code = 2219) 29 U/L COMPREHENSIVE METABOLIC [id number] 00:00:00 Test Item Value Reference Range Interpretation Comments GLUCOSE (test code = 2217) 98 MG/DL BUN (test code = 2208) 12 MG/DL CREATININE (test code = 2214) 0.70 MG/DL eGFR (2020 CKD-EPI) (test 103 ML/MIN/1.73 code = 07431) CALC BUN/CREAT (test code = 17 RATIO [...] INTERPRETATION HEPATITIS B: (NOTE) (test code = 83360) INTERPRETATION HEPATITIS C: (NOTE) (test code = 39945) HEPATITIS PROFILE (A,B,C)2021-10-14 00:00:00 Test Item Value [...] INTERPRETATION HEPATITIS B: (NOTE) (test code = 35917) INTERPRETATION HEPATITIS C: (NOTE) (test code = 31231) [id number] 00:00:00 Test Item Value Reference Range Interpretation Comments GGT (test code = 2216) 39 U/L [id number] 00:00:00 Test Item Value Reference Range Interpretation Comments GGT (test code = 2216) 39 U/L COMPREHENSIVE METABOLIC [id number] 00:00:00 Test Item Value Reference Range Interpretation Comments GLUCOSE (test code = 2217) 98 MG/DL BUN (test code = 2208) 12 MG/DL CREATININE (test code = 2214) 0.70 MG/DL eGFR (2020 CKD-EPI) (test 103 ML/MIN/1.73 code = 92280) CALC BUN/CREAT (test code = 17 RATIO [...] code = 2219) 29 U/L COMPREHENSIVE METABOLIC [id number] 00:00:00 Test Item Value Reference Range Interpretation Comments GLUCOSE (test code = 2217) 98 MG/DL BUN (test code = 2208) 12 MG/DL CREATININE (test code = 2214) 0.70 MG/DL eGFR (2020 CKD-EPI) (test 103 ML/MIN/1.73 code = 17899) CALC BUN/CREAT (test code = 17 RATIO 2234) SODIUM (test code = 2231) 140 MEQ/L POTASSIUM (test code = 2228) 4.6 MEQ/L CHLORIDE (test code = 2215) 106 MEQ/L CARBON DIOXIDE (test code = 21 MEQ/L 2205) CALCIUM (test code = 220) [...] INTERPRETATION HEPATITIS B: (NOTE) (test code = 49579) INTERPRETATION HEPATITIS C: (NOTE) (test code = 94591) HEPATITIS PROFILE (A,B,C)2021-10-14 00:00:00 Test Item Value [...] INTERPRETATION HEPATITIS B: (NOTE) (test code = 80459) INTERPRETATION HEPATITIS C: (NOTE) (test code = 61315) [id number] 00:00:00 Test Item Value Reference Range Interpretation Comments GGT (test code = 2216) 39 U/L [id number] 00:00:00 Test Item Value Reference Range Interpretation Comments GGT (test code = 2216) 39 U/L COMPREHENSIVE METABOLIC [id number] 00:00:00 Test Item Value Reference Range Interpretation Comments GLUCOSE (test code = 2217) 98 MG/DL BUN (test code = 2208) 12 MG/DL CREATININE (test code = 2214) 0.70 MG/DL eGFR (2020 CKD-EPI) (test 103 ML/MIN/1.73 code = 05854) CALC BUN/CREAT (test code = 17 RATIO [...] code = 2219) 29 U/L COMPREHENSIVE METABOLIC [id number] 00:00:00 Test Item Value Reference Range Interpretation Comments GLUCOSE (test code = 2217) 98 MG/DL BUN (test code = 2208) 12 MG/DL CREATININE (test code = 2214) 0.70 MG/DL eGFR (2020 CKD-EPI) (test 103 ML/MIN/1.73 code = 87908) CALC BUN/CREAT (test code = 17 RATIO [...] INTERPRETATION HEPATITIS B: (NOTE) (test code = 69457) INTERPRETATION HEPATITIS C: (NOTE) (test code = 01698) HEPATITIS PROFILE (A,B,C)2021-10-14 00:00:00 Test Item Value [...] INTERPRETATION HEPATITIS B: (NOTE) (test code = 42675) INTERPRETATION HEPATITIS C: (NOTE) (test code = 11239) [id number] 00:00:00 Test Item Value Reference Range Interpretation Comments GGT (test code = 2216) 39 U/L [id number] 00:00:00 Test Item Value Reference Range Interpretation Comments GGT (test code = 2216) 39 U/L COMPREHENSIVE METABOLIC [id number] 00:00:00 Test Item Value Reference Range Interpretation Comments GLUCOSE (test code = 2217) 98 MG/DL BUN (test code = 2208) 12 MG/DL CREATININE (test code = 2214) 0.70 MG/DL eGFR (2020 CKD-EPI) (test 103 ML/MIN/1.73 code = 14521) CALC BUN/CREAT (test code = 17 RATIO [...] ALKALINE PHOSPHATASE (test 102 U/L code = 2203) AST (test code = 2218) 17 U/L ALT (test code = 2219) 29 U/L COMPREHENSIVE METABOLIC [id number] 00:00:00 Test Item Value Reference Range Interpretation Comments GLUCOSE (test code = 2217) 98 MG/DL BUN (test code = 2208) 12 MG/DL CREATININE (test code = 2214) 0.70 MG/DL eGFR (2020 CKD-EPI) (test 103 ML/MIN/1.73 code = 94299) CALC BUN/CREAT (test code = 17 RATIO [...] INTERPRETATION HEPATITIS B: (NOTE) (test code = 03526) INTERPRETATION HEPATITIS C: (NOTE) (test code = 09471) HEPATITIS PROFILE (A,B,C)2021-10-14 00:00:00 Test Item Value [...] INTERPRETATION HEPATITIS B: (NOTE) (test code = 51931) INTERPRETATION HEPATITIS C: (NOTE) (test code = 47518) [id number] 00:00:00 Test Item Value Reference Range Interpretation Comments GGT (test code = 2216) 39 U/L [id number] 00:00:00 Test Item Value Reference Range Interpretation Comments GGT (test code = 2216) 39 U/L COMPREHENSIVE METABOLIC [id number] 00:00:00 Test Item Value Reference Range Interpretation Comments GLUCOSE (test code = 2217) 98 MG/DL BUN (test code = 2208) 12 MG/DL CREATININE (test code = 2214) 0.70 MG/DL eGFR (2020 CKD-EPI) (test 103 ML/MIN/1.73 code = 77551) CALC BUN/CREAT (test code = 17 RATIO [...] code = 2219) 29 U/L COMPREHENSIVE METABOLIC [id number] 00:00:00 Test Item Value Reference Range Interpretation Comments GLUCOSE (test code = 2217) 98 MG/DL BUN (test code = 2208) 12 MG/DL CREATININE (test code = 2214) 0.70 MG/DL eGFR (2020 CKD-EPI) (test 103 ML/MIN/1.73 code = 30942) CALC BUN/CREAT (test code = 17 RATIO [...] A TOTAL AB (test code NON-REACTIVE = 0335) HEPATITIS B SURF AG (test code = NON-REACTIVE 273) HEP B CORE TOTAL AB (test code = NON-REACTIVE 2728) HEPATITIS B SURFACE AB (test NON-REACTIVE code = 4237) HEPATITIS C ANTIBODY (test code NON-REACTIVE = 4675) INTERPRETATION HEPATITIS A: (NOTE) (test code = 2552) INTERPRETATION HEPATITIS B: (NOTE) (test code = 80645) INTERPRETATION HEPATITIS C: (NOTE) (test code = 24578) HEPATITIS PROFILE (A,B,C)2021-10-14 00:00:00 Test Item Value [...] INTERPRETATION HEPATITIS B: (NOTE) (test code = 12375) INTERPRETATION HEPATITIS C: (NOTE) (test code = 76438) [id number] 00:00:00 Test Item Value Reference Range Interpretation Comments GGT (test code = 2216) 39 U/L [id number] 00:00:00 Test Item Value Reference Range Interpretation Comments GGT (test code = 2216) 39 U/L COMPREHENSIVE METABOLIC [id number] 00:00:00 Test Item Value Reference Range Interpretation Comments GLUCOSE (test code = 2217) 98 MG/DL BUN (test code = 2208) 12 MG/DL CREATININE (test code = 2214) 0.70 MG/DL eGFR (2020 CKD-EPI) (test 103 ML/MIN/1.73 code = 83196) CALC BUN/CREAT (test code = 17 RATIO [...] code = 2219) 29 U/L COMPREHENSIVE METABOLIC [id number] 00:00:00 Test Item Value Reference Range Interpretation Comments GLUCOSE (test code = 2217) 98 MG/DL BUN (test code = 2208) 12 MG/DL CREATININE (test code = 2214) 0.70 MG/DL eGFR (2020 CKD-EPI) (test 103 ML/MIN/1.73 code = 64718) CALC BUN/CREAT (test code = 17 RATIO [...] INTERPRETATION HEPATITIS B: (NOTE) (test code = 93947) INTERPRETATION HEPATITIS C: (NOTE) (test code = 33742) HEPATITIS PROFILE (A,B,C)2021-10-14 00:00:00 Test Item Value Reference Range Interpretation Comments HEPATITIS A TOTAL AB (test code NON-REACTIVE = 2725) HEPATITIS B SURF AG (test code = NON-REACTIVE 2738) HEP B CORE TOTAL AB (test code = NON-REACTIVE 9672) HEPATITIS B SURFACE AB (test NON-REACTIVE code = 2737) HEPATITIS C ANTIBODY (test code NON-REACTIVE = 4675) INTERPRETATION HEPATITIS A: (NOTE) (test code = 2552) INTERPRETATION HEPATITIS B: (NOTE) (test code = 68466) INTERPRETATION HEPATITIS C: (NOTE) (test code = 87357) [id number] 00:00:00 Test Item Value Reference Range Interpretation Comments GGT (test code = 2216) 39 U/L [id number] 00:00:00 Test Item Value Reference Range Interpretation Comments GGT (test code = 2216) 39 U/L COMPREHENSIVE METABOLIC [id number] 00:00:00 Test Item Value Reference Range Interpretation Comments GLUCOSE (test code = 2217) 98 MG/DL BUN (test code = 2208) 12 MG/DL CREATININE (test code = 2214) 0.70 MG/DL eGFR (2020 CKD-EPI) (test 103 ML/MIN/1.73 code = 14279) CALC BUN/CREAT (test code = 17 RATIO [...] code = 2219) 29 U/L COMPREHENSIVE METABOLIC [id number] 00:00:00 Test Item Value Reference Range Interpretation Comments GLUCOSE (test code = 2217) 98 MG/DL BUN (test code = 2208) 12 MG/DL CREATININE (test code = 2214) 0.70 MG/DL eGFR (2020 CKD-EPI) (test 103 ML/MIN/1.73 code = 48532) CALC BUN/CREAT (test code = 17 RATIO [...] INTERPRETATION HEPATITIS B: (NOTE) (test code = 62134) INTERPRETATION HEPATITIS C: (NOTE) (test code = 74847) HEPATITIS PROFILE (A,B,C)2021-10-14 00:00:00 Test Item Value [...] INTERPRETATION HEPATITIS B: (NOTE) (test code = 64530) INTERPRETATION HEPATITIS C: (NOTE) (test code = 97490) [id number] 00:00:00 Test Item Value Reference Range Interpretation Comments GGT (test code = 2216) 39 U/L [id number] 00:00:00 Test Item Value Reference Range Interpretation Comments GGT (test code = 2216) 39 U/L COMPREHENSIVE METABOLIC [id number] 00:00:00 Test Item Value Reference Range Interpretation Comments GLUCOSE (test code = 2217) 98 MG/DL BUN (test code = 2208) 12 MG/DL CREATININE (test code = 2214) 0.70 MG/DL eGFR (2020 CKD-EPI) (test 103 ML/MIN/1.73 code = 95707) CALC BUN/CREAT (test code = 17 RATIO [...] code = 2219) 29 U/L COMPREHENSIVE METABOLIC [id number] 00:00:00 Test Item Value Reference Range Interpretation Comments GLUCOSE (test code = 2217) 98 MG/DL BUN (test code = 2208) 12 MG/DL CREATININE (test code = 2214) 0.70 MG/DL eGFR (2020 CKD-EPI) (test 103 ML/MIN/1.73 code = 91672) CALC BUN/CREAT (test code = 17 RATIO [...] INTERPRETATION HEPATITIS B: (NOTE) (test code = 93356) INTERPRETATION HEPATITIS C: (NOTE) (test code = 23279) HEPATITIS PROFILE (A,B,C)2021-10-14 00:00:00 Test Item Value [...] INTERPRETATION HEPATITIS B: (NOTE) (test code = 10323) INTERPRETATION HEPATITIS C: (NOTE) (test code = 90671) [id number] 00:00:00 Test Item Value Reference Range Interpretation Comments GGT (test code = 2216) 39 U/L [id number] 00:00:00 Test Item Value Reference Range Interpretation Comments GGT (test code = 2216) 39 U/L COMPREHENSIVE METABOLIC [id number] 00:00:00 Test Item Value Reference Range Interpretation Comments GLUCOSE (test code = 2217) 98 MG/DL BUN (test code = 2208) 12 MG/DL CREATININE (test code = 2214) 0.70 MG/DL eGFR (2020 CKD-EPI) (test 103 ML/MIN/1.73 code = 01281) CALC BUN/CREAT (test code = 17 RATIO [...] code = 2219) 29 U/L COMPREHENSIVE METABOLIC [id number] 00:00:00 Test Item Value Reference Range Interpretation Comments GLUCOSE (test code = 2217) 98 MG/DL BUN (test code = 2208) 12 MG/DL CREATININE (test code = 2214) 0.70 MG/DL eGFR (2020 CKD-EPI) (test 103 ML/MIN/1.73 code = 61155) CALC BUN/CREAT (test code = 17 RATIO [...] INTERPRETATION HEPATITIS B: (NOTE) (test code = 52894) INTERPRETATION HEPATITIS C: (NOTE) (test code = 22356) HEPATITIS PROFILE (A,B,C)2021-10-14 00:00:00 Test Item Value [...] INTERPRETATION HEPATITIS B: (NOTE) (test code = 06019) INTERPRETATION HEPATITIS C: (NOTE) (test code = 85510) [id number] 00:00:00 Test Item Value Reference Range Interpretation Comments GGT (test code = 2216) 39 U/L [id number] 00:00:00 Test Item Value Reference Range Interpretation Comments GGT (test code = 2216) 39 U/L COMPREHENSIVE METABOLIC [id number] 00:00:00 Test Item Value Reference Range Interpretation Comments GLUCOSE (test code = 2217) 98 MG/DL BUN (test code = 2208) 12 MG/DL CREATININE (test code = 2214) 0.70 MG/DL eGFR (2020 CKD-EPI) (test 103 ML/MIN/1.73 code = 18003) CALC BUN/CREAT (test code = 17 RATIO [...] code = 2219) 29 U/L COMPREHENSIVE METABOLIC [id number] 00:00:00 Test Item Value Reference Range Interpretation Comments GLUCOSE (test code = 2217) 98 MG/DL BUN (test code = 2208) 12 MG/DL CREATININE (test code = 2214) 0.70 MG/DL eGFR (2020 CKD-EPI) (test 103 ML/MIN/1.73 code = 49489) CALC BUN/CREAT (test code = 17 RATIO [...] INTERPRETATION HEPATITIS B: (NOTE) (test code = 37297) INTERPRETATION HEPATITIS C: (NOTE) (test code = 29062) HEPATITIS PROFILE (A,B,C)2021-10-14 00:00:00 Test Item Value [...] INTERPRETATION HEPATITIS B: (NOTE) (test code = 40056) INTERPRETATION HEPATITIS C: (NOTE) (test code = 31146) [id number] 00:00:00 Test Item Value Reference Range Interpretation Comments GGT (test code = 2216) 39 U/L [id number] 00:00:00 Test Item Value Reference Range Interpretation Comments GGT (test code = 2216) 39 U/L COMPREHENSIVE METABOLIC [id number] 00:00:00 Test Item Value Reference Range Interpretation Comments GLUCOSE (test code = 2217) 98 MG/DL BUN (test code = 2208) 12 MG/DL CREATININE (test code = 2214) 0.70 MG/DL eGFR (2020 CKD-EPI) (test 103 ML/MIN/1.73 code = 40735) CALC BUN/CREAT (test code = 17 RATIO [...] code = 2219) 29 U/L COMPREHENSIVE METABOLIC [id number] 00:00:00 Test Item Value Reference Range Interpretation Comments GLUCOSE (test code = 2217) 98 MG/DL BUN (test code = 2208) 12 MG/DL CREATININE (test code = 2214) 0.70 MG/DL eGFR (2020 CKD-EPI) (test 103 ML/MIN/1.73 code = 97843) CALC BUN/CREAT (test code = 17 RATIO [...] INTERPRETATION HEPATITIS B: (NOTE) (test code = 58602) INTERPRETATION HEPATITIS C: (NOTE) (test code = 15175) HEPATITIS PROFILE (A,B,C)2021-10-14 00:00:00 Test Item Value [...] INTERPRETATION HEPATITIS B: (NOTE) (test code = 99087) INTERPRETATION HEPATITIS C: (NOTE) (test code = 40166) [id number] 00:00:00 Test Item Value Reference Range Interpretation Comments GGT (test code = 2216) 39 U/L [id number] 00:00:00 Test Item Value Reference Range Interpretation Comments GGT (test code = 2216) 39 U/L COMPREHENSIVE METABOLIC [id number] 00:00:00 Test Item Value Reference Range Interpretation Comments GLUCOSE (test code = 2217) 98 MG/DL BUN (test code = 2208) 12 MG/DL CREATININE (test code = 2214) 0.70 MG/DL eGFR (2020 CKD-EPI) (test 103 ML/MIN/1.73 code = 24834) CALC BUN/CREAT (test code = 17 RATIO [...] code = 2219) 29 U/L COMPREHENSIVE METABOLIC [id number] 00:00:00 Test Item Value Reference Range Interpretation Comments GLUCOSE (test code = 2217) 98 MG/DL BUN (test code = 2208) 12 MG/DL CREATININE (test code = 2214) 0.70 MG/DL eGFR (2020 CKD-EPI) (test 103 ML/MIN/1.73 code = 98392) CALC BUN/CREAT (test code = 17 RATIO [...] INTERPRETATION HEPATITIS B: (NOTE) (test code = 64996) INTERPRETATION HEPATITIS C: (NOTE) (test code = 29427) HEPATITIS PROFILE (A,B,C)2021-10-14 00:00:00 Test Item Value [...] INTERPRETATION HEPATITIS B: (NOTE) (test code = 36753) INTERPRETATION HEPATITIS C: (NOTE) (test code = 05619) [id number] 00:00:00 Test Item Value Reference Range Interpretation Comments GGT (test code = 2216) 39 U/L [id number] 00:00:00 Test Item Value Reference Range Interpretation Comments GGT (test code = 2216) 39 U/L CALCIUM, URINE, 24 [id number] 07:02:15 Test Item Value Reference Range Interpretation Comments CALCIUM, URINE, 12 MG/DL NOT ESTAB CONC. (test code = 2098) CALCIUM, URINE, 360 MG/24 HR 100-300 H 24 HR (test code = 2065) TOTAL URINE 3000 ML 500-3500 UNLESS OTHERWI SE VOLUME (test code INDICATED, ALL TESTING = 2055) PERFORMED [facility] [place]. [address] [place] [address] 4 LABORATORY DIRE CTOR: TANNER HOPKINS M.D. [place] NUMBER [id number] [facility] [id number] CALCIUM, URINE, 24 [id number] 00:00:00 Test Item Value Reference Range Interpretation Comments CALCIUM, URINE, CONC. (test code 12 MG/DL = 2098) CALCIUM, URINE, 24 HR (test code 360 MG/24HR = 2065) TOTAL URINE VOLUME (test code = 3000 ML 2055) CALCIUM, URINE, 24 [id number] 00:00:00 Test Item Value Reference Range Interpretation Comments CALCIUM, URINE, CONC. (test code 12 MG/DL = 2098) CALCIUM, URINE, 24 HR (test code 360 MG/24HR = 2065) TOTAL URINE VOLUME (test code = 3000 ML 2055) CALCIUM, URINE, 24 [id number] 00:00:00 Test Item Value Reference Range Interpretation Comments CALCIUM, URINE, CONC. (test code 12 MG/DL = 2098) CALCIUM, URINE, 24 HR (test code 360 MG/24HR = 2065) TOTAL URINE VOLUME (test code = 3000 ML 2055) CALCIUM, URINE, 24 [id number] 00:00:00 Test Item Value Reference Range Interpretation Comments CALCIUM, URINE, CONC. (test code 12 MG/DL = 2098) CALCIUM, URINE, 24 HR (test code 360 MG/24HR = 2065) TOTAL URINE VOLUME (test code = 3000 ML 2055) CALCIUM, URINE, 24 [id number] 00:00:00 Test Item Value Reference Range Interpretation Comments CALCIUM, URINE, CONC. (test code 12 MG/DL = 2098) CALCIUM, URINE, 24 HR (test code 360 MG/24HR = 2065) TOTAL URINE VOLUME (test code = 3000 ML 2055) CALCIUM, URINE, 24 [id number] 00:00:00 Test Item Value Reference Range Interpretation Comments CALCIUM, URINE, CONC. (test code 12 MG/DL = 2098) CALCIUM, URINE, 24 HR (test code 360 MG/24HR = 2065) TOTAL URINE VOLUME (test code = 3000 ML 2055) CALCIUM, URINE, 24 [id number] 00:00:00 Test Item Value Reference Range Interpretation Comments CALCIUM, URINE, CONC. (test code 12 MG/DL = 2098) CALCIUM, URINE, 24 HR (test code 360 MG/24HR = 2065) TOTAL URINE VOLUME (test code = 3000 ML 2055) CALCIUM, URINE, 24 [id number] 00:00:00 Test Item Value Reference Range Interpretation Comments CALCIUM, URINE, CONC. (test code 12 MG/DL = 2098) CALCIUM, URINE, 24 HR (test code 360 MG/24HR = 2065) TOTAL URINE VOLUME (test code = 3000 ML 2055) CALCIUM, URINE, 24 [id number] 00:00:00 Test Item Value Reference Range Interpretation Comments CALCIUM, URINE, CONC. (test code 12 MG/DL = 2098) CALCIUM, URINE, 24 HR (test code 360 MG/24HR = 2065) TOTAL URINE VOLUME (test code = 3000 ML 2055) CALCIUM, URINE, 24 [id number] 00:00:00 Test Item Value Reference Range Interpretation Comments CALCIUM, URINE, CONC. (test code 12 MG/DL = 2098) CALCIUM, URINE, 24 HR (test code 360 MG/24HR = 2065) TOTAL URINE VOLUME (test code = 3000 ML 2055) CALCIUM, URINE, 24 [id number] 00:00:00 Test Item Value Reference Range Interpretation Comments CALCIUM, URINE, CONC. (test code 12 MG/DL = 2098) CALCIUM, URINE, 24 HR (test code 360 MG/24HR = 2065) TOTAL URINE VOLUME (test code = 3000 ML 2055) CALCIUM, URINE, 24 [id number] 00:00:00 Test Item Value Reference Range Interpretation Comments CALCIUM, URINE, CONC. (test code 12 MG/DL = 2098) CALCIUM, URINE, 24 HR (test code 360 MG/24HR = 2065) TOTAL URINE VOLUME (test code = 3000 ML 2055) CALCIUM, URINE, 24 [id number] 00:00:00 Test Item Value Reference Range Interpretation Comments CALCIUM, URINE, CONC. (test code 12 MG/DL = 2098) CALCIUM, URINE, 24 HR (test code 360 MG/24HR = 2065) TOTAL URINE VOLUME (test code = 3000 ML 2055) CALCIUM, URINE, 24 [id number] 00:00:00 Test Item Value Reference Range Interpretation Comments CALCIUM, URINE, CONC. (test code 12 MG/DL = 2098) CALCIUM, URINE, 24 HR (test code 360 MG/24HR = 2065) TOTAL URINE VOLUME (test code = 3000 ML 2055) CALCIUM, URINE, 24 [id number] 00:00:00 Test Item Value Reference Range Interpretation Comments CALCIUM, URINE, CONC. (test code 12 MG/DL = 2098) CALCIUM, URINE, 24 HR (test code 360 MG/24HR = 2065) TOTAL URINE VOLUME (test code = 3000 ML 2055) CALCIUM, URINE, 24 [id number] 00:00:00 Test Item Value Reference Range Interpretation Comments CALCIUM, URINE, CONC. (test code 12 MG/DL = 2098) CALCIUM, URINE, 24 HR (test code 360 MG/24HR = 2065) TOTAL URINE VOLUME (test code = 3000 ML 2055) CALCIUM, URINE, 24 [id number] 00:00:00 Test Item Value Reference Range Interpretation Comments CALCIUM, URINE, CONC. (test code 12 MG/DL = 2098) CALCIUM, URINE, 24 HR (test code 360 MG/24HR = 2065) TOTAL URINE VOLUME (test code = 3000 ML 2055) CALCIUM, URINE, 24 [id number] 00:00:00 Test Item Value Reference Range Interpretation Comments CALCIUM, URINE, CONC. (test code 12 MG/DL = 2098) CALCIUM, URINE, 24 HR (test code 360 MG/24HR = 2065) TOTAL URINE VOLUME (test code = 3000 ML 2055) CALCIUM, URINE, 24 [id number] 00:00:00 Test Item Value Reference Range Interpretation Comments CALCIUM, URINE, CONC. (test code 12 MG/DL = 2098) CALCIUM, URINE, 24 HR (test code 360 MG/24HR = 2065) TOTAL URINE VOLUME (test code = 3000 ML 2055) CALCIUM, URINE, 24 [id number] 00:00:00 Test Item Value Reference Range Interpretation Comments CALCIUM, URINE, CONC. (test code 12 MG/DL = 2098) CALCIUM, URINE, 24 HR (test code 360 MG/24HR = 2065) TOTAL URINE VOLUME (test code = 3000 ML 2055) CALCIUM, URINE, 24 [id number] 00:00:00 Test Item Value Reference Range Interpretation Comments CALCIUM, URINE, CONC. (test code 12 MG/DL = 2098) CALCIUM, URINE, 24 HR (test code 360 MG/24HR = 2065) TOTAL URINE VOLUME (test code = 3000 ML 2055) CALCIUM, URINE, 24 [id number] 00:00:00 Test Item Value Reference Range Interpretation Comments CALCIUM, URINE, CONC. (test code 12 MG/DL = 2098) CALCIUM, URINE, 24 HR (test code 360 MG/24HR = 2065) TOTAL URINE VOLUME (test code = 3000 ML 2055) CALCIUM, URINE, 24 [id number] 00:00:00 Test Item Value Reference Range Interpretation Comments CALCIUM, URINE, CONC. (test code 12 MG/DL = 2098) CALCIUM, URINE, 24 HR (test code 360 MG/24HR = 2065) TOTAL URINE VOLUME (test code = 3000 ML 2055) CALCIUM, URINE, 24 [id number] 00:00:00 Test Item Value Reference Range Interpretation Comments CALCIUM, URINE, CONC. (test code 12 MG/DL = 2098) CALCIUM, URINE, 24 HR (test code 360 MG/24HR = 2065) TOTAL URINE VOLUME (test code = 3000 ML 2055) FUROSEMIDE, [id number] 10:22:19 Test Item Value Reference Range Interpretation Comments FUROSEMIDE, None Det ng/mL Reporting Rubi it: 100 SERUM (test ng/mLMean peak serum code = 74291) levels of 2300 +/- 500 ng/mL wereobtai carey approximately 1 hour after a single oral dose of 80 mg furose mide in fasting subject s.This test was rohini chacon and its performance characteristics determined by [facility]. It has not been cleared or [...] an y result. TESTING PERFORM ED AT [facility] [address] [place] [address] 190 44 [place]. [id number] [place]. [id number] FUROSEMIDE, [id number] 00:00:00 Test Item Value Reference Range Interpretation Comments FUROSEMIDE, SERUM (test code = None Det ng/mL 87102) FUROSEMIDE, [id number] 00:00:00 Test Item Value Reference Range Interpretation Comments FUROSEMIDE, SERUM (test code = None Det ng/mL 35122) FUROSEMIDE, [id number] 00:00:00 Test Item Value Reference Range Interpretation Comments FUROSEMIDE, SERUM (test code = None Det ng/mL 59932) FUROSEMIDE, [id number] 00:00:00 Test Item Value Reference Range Interpretation Comments FUROSEMIDE, SERUM (test code = None Det ng/mL 91442) FUROSEMIDE, [id number] 00:00:00 Test Item Value Reference Range Interpretation Comments FUROSEMIDE, SERUM (test code = None Det ng/mL 80573) FUROSEMIDE, [id number] 00:00:00 Test Item Value Reference Range Interpretation Comments FUROSEMIDE, SERUM (test code = None Det ng/mL 84848) FUROSEMIDE, [id number] 00:00:00 Test Item Value Reference Range Interpretation Comments FUROSEMIDE, SERUM (test code = None Det ng/mL 54748) FUROSEMIDE, [id number] 00:00:00 Test Item Value Reference Range Interpretation Comments FUROSEMIDE, SERUM (test code = None Det ng/mL 98293) FUROSEMIDE, [id number] 00:00:00 Test Item Value Reference Range Interpretation Comments FUROSEMIDE, SERUM (test code = None Det ng/mL 52895) FUROSEMIDE, [id number] 00:00:00 Test Item Value Reference Range Interpretation Comments FUROSEMIDE, SERUM (test code = None Det ng/mL 59264) FUROSEMIDE, [id number] 00:00:00 Test Item Value Reference Range Interpretation Comments FUROSEMIDE, SERUM (test code = None Det ng/mL 20345) FUROSEMIDE, [id number] 00:00:00 Test Item Value Reference Range Interpretation Comments FUROSEMIDE, SERUM (test code = None Det ng/mL 00020) FUROSEMIDE, [id number] 00:00:00 Test Item Value Reference Range Interpretation Comments FUROSEMIDE, SERUM (test code = None Det ng/mL 48759) FUROSEMIDE, [id number] 00:00:00 Test Item Value Reference Range Interpretation Comments FUROSEMIDE, SERUM (test code = None Det ng/mL 40827) FUROSEMIDE, [id number] 00:00:00 Test Item Value Reference Range Interpretation Comments FUROSEMIDE, SERUM (test code = None Det ng/mL 04052) FUROSEMIDE, [id number] 00:00:00 Test Item Value Reference Range Interpretation Comments FUROSEMIDE, SERUM (test code = None Det ng/mL 91250) FUROSEMIDE, [id number] 00:00:00 Test Item Value Reference Range Interpretation Comments FUROSEMIDE, SERUM (test code = None Det ng/mL 29159) FUROSEMIDE, [id number] 00:00:00 Test Item Value Reference Range Interpretation Comments FUROSEMIDE, SERUM (test code = None Det ng/mL 57545) FUROSEMIDE, [id number] 00:00:00 Test Item Value Reference Range Interpretation Comments FUROSEMIDE, SERUM (test code = None Det ng/mL 14924) FUROSEMIDE, [id number] 00:00:00 Test Item Value Reference Range Interpretation Comments FUROSEMIDE, SERUM (test code = None Det ng/mL 12332) FUROSEMIDE, [id number] 00:00:00 Test Item Value Reference Range Interpretation Comments FUROSEMIDE, SERUM (test code = None Det ng/mL 66325) FUROSEMIDE, [id number] 00:00:00 Test Item Value Reference Range Interpretation Comments FUROSEMIDE, SERUM (test code = None Det ng/mL 58445) FUROSEMIDE, [id number] 00:00:00 Test Item Value Reference Range Interpretation Comments FUROSEMIDE, SERUM (test code = None Det ng/mL 88927) FUROSEMIDE, [id number] 00:00:00 Test Item Value Reference Range Interpretation Comments FUROSEMIDE, SERUM (test code = None Det ng/mL 69866) [id number] 11:27:02 Test Item Value Reference Range Interpretation [...] this result as normal/abnor mal. TSH, THIRD [id number] 05:58:42 Test Item Value Reference Range Interpretation Comments TSH, THIRD GENERATION (test code 2.070 UIU/ML 0.400-4.100 = 2821) PROTHROMBIN TIME (PT)2021-10-04 05:04:36 Test Item Value Reference Range Interpretation Comments PROTHROMBIN TIME 14.0 SECONDS 12.5-14.7 (PT) (test code = 1402) INR (test code = 1.0 SEE BELOW CURRENT 01985) RECOMMENDATIONS ARE FOR AN INR OF 2 .0-3.0 FOR ALL PATIENT S ON VITAMIN K ANTAG ONISTS, EXCEPT THOSE WI TH PROSTHETIC HEAR T VALVES, FOR WHO M INR OF 2.5-3.5 IS RECOMMENDED. UN LESS OTHERWISE INDIC ATED, ALL TESTING PER [facility], [place]. [address] [place], [place] [address] [place] [address] DIRECTOR: TANNER VELASQUEZ M.D. CLIA NUMBER [id number] CAP ACCREDITATION N O. [id number] HEMOGLOBIN [id number] 05:01:00 Test Item Value Reference Range Interpretation Comments HEMOGLOBIN A1c (test code = 98226) 5.3 % 4.2-5.6 COMPREHENSIVE METABOLIC [id number] 04:33:44 Test Item Value Reference Range Interpretation Comments GLUCOSE (test code = 126 MG/DL 70-99 H 2216) BUN (test code = 14 MG/DL -2207) CREATININE (test 0.76 MG/DL 0.60-1.30 code = 2214) eGFR (2020 CKD-EPI) 93 ML/MIN/1.73 >60 (test code = 56258) CALC BUN/CREAT (test 18 RATIO 6-28 code = 2235) SODIUM (test code = 140 MEQ/L 656-191 5209) POTASSIUM (test code 4.1 MEQ/L 3.5-5.4 = [...] message] (test code = 220) The syste [employer] which generated this result transmit alex reference range : <=1.2. The refe rence range was not u sed to interpret th is result as normal/abnormal . ALKALINE PHOSPHATASE 116 U/L 40-133 (test code = 220) AST (test code = 31 U/L 9-40 2217) ALT (test code = 89 U/L 5-40 H 2218) [id number] 00:00:00 Test Item Value Reference Range Interpretation Comments D-DIMER (test code = 1405) <0.27 UG/MLFEU [id number] 00:00:00 Test Item Value Reference Range Interpretation Comments D-DIMER (test code = 1405) <0.27 UG/MLFEU PROTHROMBIN TIME (PT)2021-10-04 00:00:00 Test Item Value Reference Range Interpretation Comments PROTHROMBIN TIME (PT) (test code 14.0 SECONDS = 1402) INR (test code = 53007) 1.0 PROTHROMBIN TIME (PT)2021-10-04 00:00:00 Test Item Value Reference Range Interpretation Comments PROTHROMBIN TIME (PT) (test code 14.0 SECONDS = 1402) INR (test code = 10605) 1.0 COMPREHENSIVE METABOLIC [id number] 00:00:00 Test Item Value Reference Range Interpretation Comments GLUCOSE (test code = 2217) 126 MG/DL BUN (test code = 2208) 14 MG/DL CREATININE (test code = 2214) 0.76 MG/DL eGFR (2020 CKD-EPI) (test code 93 ML/MIN/1.73 = 08217) CALC BUN/CREAT (test code = 18 RATIO [...] code = 2219) 89 U/L COMPREHENSIVE METABOLIC [id number] 00:00:00 Test Item Value Reference Range Interpretation Comments GLUCOSE (test code = 2217) 126 MG/DL BUN (test code = 2208) 14 MG/DL CREATININE (test code = 2214) 0.76 MG/DL eGFR (2020 CKD-EPI) (test code 93 ML/MIN/1.73 = 36785) CALC BUN/CREAT (test code = 18 RATIO [...] ALT (test code = 2219) 89 U/L [id number] 00:00:00 Test Item Value Reference Range Interpretation Comments TSH, THIRD GENERATION (test code 2.070 UIU/ML = 2821) [id number] 00:00:00 Test Item Value Reference Range Interpretation Comments TSH, THIRD GENERATION (test code 2.070 UIU/ML = 2821) [id number] 00:00:00 Test Item Value Reference Range Interpretation Comments TSH, THIRD GENERATION (test code 2.070 UIU/ML = 2821) HEMOGLOBIN [id number] 00:00:00 Test Item Value Reference Range Interpretation Comments HEMOGLOBIN A1c (test code = 24132) 5.3 % HEMOGLOBIN [id number] 00:00:00 Test Item Value Reference Range Interpretation Comments HEMOGLOBIN A1c (test code = 11992) 5.3 % HEMOGLOBIN [id number] 00:00:00 Test Item Value Reference Range Interpretation Comments HEMOGLOBIN A1c (test code = 18139) 5.3 % [id number] 00:00:00 Test Item Value Reference Range Interpretation Comments D-DIMER (test code = 1405) <0.27 UG/MLFEU [id number] 00:00:00 Test Item Value Reference Range Interpretation Comments D-DIMER (test code = 1405) <0.27 UG/MLFEU PROTHROMBIN TIME (PT)2021-10-04 00:00:00 Test Item Value Reference Range Interpretation Comments PROTHROMBIN TIME (PT) (test code 14.0 SECONDS = 1402) INR (test code = 36416) 1.0 PROTHROMBIN TIME (PT)2021-10-04 00:00:00 Test Item Value Reference Range Interpretation Comments PROTHROMBIN TIME (PT) (test code 14.0 SECONDS = 1402) INR (test code = 27800) 1.0 COMPREHENSIVE METABOLIC [id number] 00:00:00 Test Item Value Reference Range Interpretation Comments GLUCOSE (test code = 2217) 126 MG/DL BUN (test code = 2208) 14 MG/DL CREATININE (test code = 2214) 0.76 MG/DL eGFR (2020 CKD-EPI) (test code 93 ML/MIN/1.73 = 93522) CALC BUN/CREAT (test code = 18 RATIO [...] code = 2219) 89 U/L COMPREHENSIVE METABOLIC [id number] 00:00:00 Test Item Value Reference Range Interpretation Comments GLUCOSE (test code = 2217) 126 MG/DL BUN (test code = 2208) 14 MG/DL CREATININE (test code = 2214) 0.76 MG/DL eGFR (2020 CKD-EPI) (test code 93 ML/MIN/1.73 = 04594) CALC BUN/CREAT (test code = 18 RATIO [...] ALT (test code = 2219) 89 U/L [id number] 00:00:00 Test Item Value Reference Range Interpretation Comments TSH, THIRD GENERATION (test code 2.070 UIU/ML = 2821) [id number] 00:00:00 Test Item Value Reference Range Interpretation Comments TSH, THIRD GENERATION (test code 2.070 UIU/ML = 2821) [id number] 00:00:00 Test Item Value Reference Range Interpretation Comments TSH, THIRD GENERATION (test code 2.070 UIU/ML = 2821) HEMOGLOBIN [id number] 00:00:00 Test Item Value Reference Range Interpretation Comments HEMOGLOBIN A1c (test code = 37718) 5.3 % HEMOGLOBIN [id number] 00:00:00 Test Item Value Reference Range Interpretation Comments HEMOGLOBIN A1c (test code = 85745) 5.3 % HEMOGLOBIN [id number] 00:00:00 Test Item Value Reference Range Interpretation Comments HEMOGLOBIN A1c (test code = 80544) 5.3 % [id number] 00:00:00 Test Item Value Reference Range Interpretation Comments D-DIMER (test code = 1405) <0.27 UG/MLFEU [id number] 00:00:00 Test Item Value Reference Range Interpretation Comments D-DIMER (test code = 1405) <0.27 UG/MLFEU PROTHROMBIN TIME (PT)2021-10-04 00:00:00 Test Item Value Reference Range Interpretation Comments PROTHROMBIN TIME (PT) (test code 14.0 SECONDS = 1402) INR (test code = 03133) 1.0 PROTHROMBIN TIME (PT)2021-10-04 00:00:00 Test Item Value Reference Range Interpretation Comments PROTHROMBIN TIME (PT) (test code 14.0 SECONDS = 1402) INR (test code = 40435) 1.0 COMPREHENSIVE METABOLIC [id number] 00:00:00 Test Item Value Reference Range Interpretation Comments GLUCOSE (test code = 2217) 126 MG/DL BUN (test code = 2208) 14 MG/DL CREATININE (test code = 2214) 0.76 MG/DL eGFR (2020 CKD-EPI) (test code 93 ML/MIN/1.73 = 43684) CALC BUN/CREAT (test code = 18 RATIO [...] code = 2219) 89 U/L COMPREHENSIVE METABOLIC [id number] 00:00:00 Test Item Value Reference Range Interpretation Comments GLUCOSE (test code = 2217) 126 MG/DL BUN (test code = 2208) 14 MG/DL CREATININE (test code = 2214) 0.76 MG/DL eGFR (2020 CKD-EPI) (test code 93 ML/MIN/1.73 = 68698) CALC BUN/CREAT (test code = 18 RATIO [...] ALT (test code = 2219) 89 U/L [id number] 00:00:00 Test Item Value Reference Range Interpretation Comments TSH, THIRD GENERATION (test code 2.070 UIU/ML = 2821) [id number] 00:00:00 Test Item Value Reference Range Interpretation Comments TSH, THIRD GENERATION (test code 2.070 UIU/ML = 2821) [id number] 00:00:00 Test Item Value Reference Range Interpretation Comments TSH, THIRD GENERATION (test code 2.070 UIU/ML = 2821) HEMOGLOBIN [id number] 00:00:00 Test Item Value Reference Range Interpretation Comments HEMOGLOBIN A1c (test code = 58044) 5.3 % HEMOGLOBIN [id number] 00:00:00 Test Item Value Reference Range Interpretation Comments HEMOGLOBIN A1c (test code = 73205) 5.3 % HEMOGLOBIN [id number] 00:00:00 Test Item Value Reference Range Interpretation Comments HEMOGLOBIN A1c (test code = 72340) 5.3 % [id number] 00:00:00 Test Item Value Reference Range Interpretation Comments D-DIMER (test code = 1405) <0.27 UG/MLFEU [id number] 00:00:00 Test Item Value Reference Range Interpretation Comments D-DIMER (test code = 1405) <0.27 UG/MLFEU PROTHROMBIN TIME (PT)2021-10-04 00:00:00 Test Item Value Reference Range Interpretation Comments PROTHROMBIN TIME (PT) (test code 14.0 SECONDS = 1402) INR (test code = 99134) 1.0 PROTHROMBIN TIME (PT)2021-10-04 00:00:00 Test Item Value Reference Range Interpretation Comments PROTHROMBIN TIME (PT) (test code 14.0 SECONDS = 1402) INR (test code = 60824) 1.0 COMPREHENSIVE METABOLIC [id number] 00:00:00 Test Item Value Reference Range Interpretation Comments GLUCOSE (test code = 2217) 126 MG/DL BUN (test code = 2208) 14 MG/DL CREATININE (test code = 2214) 0.76 MG/DL eGFR (2020 CKD-EPI) (test code 93 ML/MIN/1.73 = 31758) CALC BUN/CREAT (test code = 18 RATIO [...] code = 2219) 89 U/L COMPREHENSIVE METABOLIC [id number] 00:00:00 Test Item Value Reference Range Interpretation Comments GLUCOSE (test code = 2217) 126 MG/DL BUN (test code = 2208) 14 MG/DL CREATININE (test code = 2214) 0.76 MG/DL eGFR (2020 CKD-EPI) (test code 93 ML/MIN/1.73 = 95511) CALC BUN/CREAT (test code = 18 RATIO [...] ALT (test code = 2219) 89 U/L [id number] 00:00:00 Test Item Value Reference Range Interpretation Comments TSH, THIRD GENERATION (test code 2.070 UIU/ML = 2821) [id number] 00:00:00 Test Item Value Reference Range Interpretation Comments TSH, THIRD GENERATION (test code 2.070 UIU/ML = 2821) [id number] 00:00:00 Test Item Value Reference Range Interpretation Comments TSH, THIRD GENERATION (test code 2.070 UIU/ML = 2821) HEMOGLOBIN [id number] 00:00:00 Test Item Value Reference Range Interpretation Comments HEMOGLOBIN A1c (test code = 73816) 5.3 % HEMOGLOBIN [id number] 00:00:00 Test Item Value Reference Range Interpretation Comments HEMOGLOBIN A1c (test code = 27617) 5.3 % HEMOGLOBIN [id number] 00:00:00 Test Item Value Reference Range Interpretation Comments HEMOGLOBIN A1c (test code = 61673) 5.3 % [id number] 00:00:00 Test Item Value Reference Range Interpretation Comments D-DIMER (test code = 1405) <0.27 UG/MLFEU [id number] 00:00:00 Test Item Value Reference Range Interpretation Comments D-DIMER (test code = 1405) <0.27 UG/MLFEU PROTHROMBIN TIME (PT)2021-10-04 00:00:00 Test Item Value Reference Range Interpretation Comments PROTHROMBIN TIME (PT) (test code 14.0 SECONDS = 1402) INR (test code = 64742) 1.0 PROTHROMBIN TIME (PT)2021-10-04 00:00:00 Test Item Value Reference Range Interpretation Comments PROTHROMBIN TIME (PT) (test code 14.0 SECONDS = 1402) INR (test code = 70509) 1.0 COMPREHENSIVE METABOLIC [id number] 00:00:00 Test Item Value Reference Range Interpretation Comments GLUCOSE (test code = 2217) 126 MG/DL BUN (test code = 2208) 14 MG/DL CREATININE (test code = 2214) 0.76 MG/DL eGFR (2020 CKD-EPI) (test code 93 ML/MIN/1.73 = 21430) CALC BUN/CREAT (test code = 18 RATIO [...] code = 2219) 89 U/L COMPREHENSIVE METABOLIC [id number] 00:00:00 Test Item Value Reference Range Interpretation Comments GLUCOSE (test code = 2217) 126 MG/DL BUN (test code = 2208) 14 MG/DL CREATININE (test code = 2214) 0.76 MG/DL eGFR (2020 CKD-EPI) (test code 93 ML/MIN/1.73 = 16907) CALC BUN/CREAT (test code = 18 RATIO [...] ALT (test code = 2219) 89 U/L [id number] 00:00:00 Test Item Value Reference Range Interpretation Comments TSH, THIRD GENERATION (test code 2.070 UIU/ML = 2821) [id number] 00:00:00 Test Item Value Reference Range Interpretation Comments TSH, THIRD GENERATION (test code 2.070 UIU/ML = 2821) [id number] 00:00:00 Test Item Value Reference Range Interpretation Comments TSH, THIRD GENERATION (test code 2.070 UIU/ML = 2821) HEMOGLOBIN [id number] 00:00:00 Test Item Value Reference Range Interpretation Comments HEMOGLOBIN A1c (test code = 52913) 5.3 % HEMOGLOBIN [id number] 00:00:00 Test Item Value Reference Range Interpretation Comments HEMOGLOBIN A1c (test code = 09571) 5.3 % HEMOGLOBIN [id number] 00:00:00 Test Item Value Reference Range Interpretation Comments HEMOGLOBIN A1c (test code = 54495) 5.3 % [id number] 00:00:00 Test Item Value Reference Range Interpretation Comments D-DIMER (test code = 1405) <0.27 UG/MLFEU [id number] 00:00:00 Test Item Value Reference Range Interpretation Comments D-DIMER (test code = 1405) <0.27 UG/MLFEU PROTHROMBIN TIME (PT)2021-10-04 00:00:00 Test Item Value Reference Range Interpretation Comments PROTHROMBIN TIME (PT) (test code 14.0 SECONDS = 1402) INR (test code = 53736) 1.0 PROTHROMBIN TIME (PT)2021-10-04 00:00:00 Test Item Value Reference Range Interpretation Comments PROTHROMBIN TIME (PT) (test code 14.0 SECONDS = 1402) INR (test code = 69619) 1.0 COMPREHENSIVE METABOLIC [id number] 00:00:00 Test Item Value Reference Range Interpretation Comments GLUCOSE (test code = 2217) 126 MG/DL BUN (test code = 2208) 14 MG/DL CREATININE (test code = 2214) 0.76 MG/DL eGFR (2020 CKD-EPI) (test code 93 ML/MIN/1.73 = 82815) CALC BUN/CREAT (test code = 18 RATIO [...] code = 2219) 89 U/L COMPREHENSIVE METABOLIC [id number] 00:00:00 Test Item Value Reference Range Interpretation Comments GLUCOSE (test code = 2217) 126 MG/DL BUN (test code = 2208) 14 MG/DL CREATININE (test code = 2214) 0.76 MG/DL eGFR (2020 CKD-EPI) (test code 93 ML/MIN/1.73 = 21735) CALC BUN/CREAT (test code = 18 RATIO [...] ALT (test code = 2219) 89 U/L [id number] 00:00:00 Test Item Value Reference Range Interpretation Comments TSH, THIRD GENERATION (test code 2.070 UIU/ML = 2821) [id number] 00:00:00 Test Item Value Reference Range Interpretation Comments TSH, THIRD GENERATION (test code 2.070 UIU/ML = 2821) [id number] 00:00:00 Test Item Value Reference Range Interpretation Comments TSH, THIRD GENERATION (test code 2.070 UIU/ML = 2821) HEMOGLOBIN [id number] 00:00:00 Test Item Value Reference Range Interpretation Comments HEMOGLOBIN A1c (test code = 36586) 5.3 % HEMOGLOBIN [id number] 00:00:00 Test Item Value Reference Range Interpretation Comments HEMOGLOBIN A1c (test code = 59622) 5.3 % HEMOGLOBIN [id number] 00:00:00 Test Item Value Reference Range Interpretation Comments HEMOGLOBIN A1c (test code = 93040) 5.3 % [id number] 00:00:00 Test Item Value Reference Range Interpretation Comments D-DIMER (test code = 1405) <0.27 UG/MLFEU [id number] 00:00:00 Test Item Value Reference Range Interpretation Comments D-DIMER (test code = 1405) <0.27 UG/MLFEU PROTHROMBIN TIME (PT)2021-10-04 00:00:00 Test Item Value Reference Range Interpretation Comments PROTHROMBIN TIME (PT) (test code 14.0 SECONDS = 1402) INR (test code = 33772) 1.0 PROTHROMBIN TIME (PT)2021-10-04 00:00:00 Test Item Value Reference Range Interpretation Comments PROTHROMBIN TIME (PT) (test code 14.0 SECONDS = 1402) INR (test code = 52352) 1.0 COMPREHENSIVE METABOLIC [id number] 00:00:00 Test Item Value Reference Range Interpretation Comments GLUCOSE (test code = 2217) 126 MG/DL BUN (test code = 2208) 14 MG/DL CREATININE (test code = 2214) 0.76 MG/DL eGFR (2020 CKD-EPI) (test code 93 ML/MIN/1.73 = 92089) CALC BUN/CREAT (test code = 18 RATIO [...] code = 2219) 89 U/L COMPREHENSIVE METABOLIC [id number] 00:00:00 Test Item Value Reference Range Interpretation Comments GLUCOSE (test code = 2217) 126 MG/DL BUN (test code = 2208) 14 MG/DL CREATININE (test code = 2214) 0.76 MG/DL eGFR (2020 CKD-EPI) (test code 93 ML/MIN/1.73 = 27984) CALC BUN/CREAT (test code = 18 RATIO [...] ALT (test code = 2219) 89 U/L [id number] 00:00:00 Test Item Value Reference Range Interpretation Comments TSH, THIRD GENERATION (test code 2.070 UIU/ML = 2821) [id number] 00:00:00 Test Item Value Reference Range Interpretation Comments TSH, THIRD GENERATION (test code 2.070 UIU/ML = 2821) [id number] 00:00:00 Test Item Value Reference Range Interpretation Comments TSH, THIRD GENERATION (test code 2.070 UIU/ML = 2821) HEMOGLOBIN [id number] 00:00:00 Test Item Value Reference Range Interpretation Comments HEMOGLOBIN A1c (test code = 09022) 5.3 % HEMOGLOBIN [id number] 00:00:00 Test Item Value Reference Range Interpretation Comments HEMOGLOBIN A1c (test code = 60992) 5.3 % HEMOGLOBIN [id number] 00:00:00 Test Item Value Reference Range Interpretation Comments HEMOGLOBIN A1c (test code = 08665) 5.3 % [id number] 00:00:00 Test Item Value Reference Range Interpretation Comments D-DIMER (test code = 1405) <0.27 UG/MLFEU [id number] 00:00:00 Test Item Value Reference Range Interpretation Comments D-DIMER (test code = 1405) <0.27 UG/MLFEU PROTHROMBIN TIME (PT)2021-10-04 00:00:00 Test Item Value Reference Range Interpretation Comments PROTHROMBIN TIME (PT) (test code 14.0 SECONDS = 1402) INR (test code = 92180) 1.0 PROTHROMBIN TIME (PT)2021-10-04 00:00:00 Test Item Value Reference Range Interpretation Comments PROTHROMBIN TIME (PT) (test code 14.0 SECONDS = 1402) INR (test code = 00952) 1.0 COMPREHENSIVE METABOLIC [id number] 00:00:00 Test Item Value Reference Range Interpretation Comments GLUCOSE (test code = 2217) 126 MG/DL BUN (test code = 2208) 14 MG/DL CREATININE (test code = 2214) 0.76 MG/DL eGFR (2020 CKD-EPI) (test code 93 ML/MIN/1.73 = 53816) CALC BUN/CREAT (test code = 18 RATIO [...] code = 2219) 89 U/L COMPREHENSIVE METABOLIC [id number] 00:00:00 Test Item Value Reference Range Interpretation Comments GLUCOSE (test code = 2217) 126 MG/DL BUN (test code = 2208) 14 MG/DL CREATININE (test code = 2214) 0.76 MG/DL eGFR (2020 CKD-EPI) (test code 93 ML/MIN/1.73 = 02178) CALC BUN/CREAT (test code = 18 RATIO [...] ALT (test code = 2219) 89 U/L [id number] 00:00:00 Test Item Value Reference Range Interpretation Comments TSH, THIRD GENERATION (test code 2.070 UIU/ML = 2821) [id number] 00:00:00 Test Item Value Reference Range Interpretation Comments TSH, THIRD GENERATION (test code 2.070 UIU/ML = 2821) [id number] 00:00:00 Test Item Value Reference Range Interpretation Comments TSH, THIRD GENERATION (test code 2.070 UIU/ML = 2821) HEMOGLOBIN [id number] 00:00:00 Test Item Value Reference Range Interpretation Comments HEMOGLOBIN A1c (test code = 44756) 5.3 % HEMOGLOBIN [id number] 00:00:00 Test Item Value Reference Range Interpretation Comments HEMOGLOBIN A1c (test code = 22086) 5.3 % HEMOGLOBIN [id number] 00:00:00 Test Item Value Reference Range Interpretation Comments HEMOGLOBIN A1c (test code = 42816) 5.3 % [id number] 00:00:00 Test Item Value Reference Range Interpretation Comments D-DIMER (test code = 1405) <0.27 UG/MLFEU [id number] 00:00:00 Test Item Value Reference Range Interpretation Comments D-DIMER (test code = 1405) <0.27 UG/MLFEU PROTHROMBIN TIME (PT)2021-10-04 00:00:00 Test Item Value Reference Range Interpretation Comments PROTHROMBIN TIME (PT) (test code 14.0 SECONDS = 1402) INR (test code = 42097) 1.0 PROTHROMBIN TIME (PT)2021-10-04 00:00:00 Test Item Value Reference Range Interpretation Comments PROTHROMBIN TIME (PT) (test code 14.0 SECONDS = 1402) INR (test code = 46127) 1.0 COMPREHENSIVE METABOLIC [id number] 00:00:00 Test Item Value Reference Range Interpretation Comments GLUCOSE (test code = 2217) 126 MG/DL BUN (test code = 2208) 14 MG/DL CREATININE (test code = 2214) 0.76 MG/DL eGFR (2020 CKD-EPI) (test code 93 ML/MIN/1.73 = 62974) CALC BUN/CREAT (test code = 18 RATIO [...] code = 2219) 89 U/L COMPREHENSIVE METABOLIC [id number] 00:00:00 Test Item Value Reference Range Interpretation Comments GLUCOSE (test code = 2217) 126 MG/DL BUN (test code = 2208) 14 MG/DL CREATININE (test code = 2214) 0.76 MG/DL eGFR (2020 CKD-EPI) (test code 93 ML/MIN/1.73 = 36680) CALC BUN/CREAT (test code = 18 RATIO [...] ALT (test code = 2219) 89 U/L [id number] 00:00:00 Test Item Value Reference Range Interpretation Comments TSH, THIRD GENERATION (test code 2.070 UIU/ML = 2821) [id number] 00:00:00 Test Item Value Reference Range Interpretation Comments TSH, THIRD GENERATION (test code 2.070 UIU/ML = 2821) [id number] 00:00:00 Test Item Value Reference Range Interpretation Comments TSH, THIRD GENERATION (test code 2.070 UIU/ML = 2821) HEMOGLOBIN [id number] 00:00:00 Test Item Value Reference Range Interpretation Comments HEMOGLOBIN A1c (test code = 83685) 5.3 % HEMOGLOBIN [id number] 00:00:00 Test Item Value Reference Range Interpretation Comments HEMOGLOBIN A1c (test code = 44493) 5.3 % COMPREHENSIVE METABOLIC [id number] 00:00:00 Test Item Value Reference Range Interpretation Comments GLUCOSE (test code = 2217) 126 MG/DL BUN (test code = 2208) 14 MG/DL CREATININE (test code = 2214) 0.76 MG/DL eGFR (2020 CKD-EPI) (test code 93 ML/MIN/1.73 = 12306) CALC BUN/CREAT (test code = 18 RATIO [...] (test code = 2219) 89 U/L HEMOGLOBIN [id number] 00:00:00 Test Item Value Reference Range Interpretation Comments HEMOGLOBIN A1c (test code = 75108) 5.3 % [id number] 00:00:00 Test Item Value Reference Range Interpretation Comments D-DIMER (test code = 1405) <0.27 UG/MLFEU [id number] 00:00:00 Test Item Value Reference Range Interpretation Comments D-DIMER (test code = 1405) <0.27 UG/MLFEU COMPREHENSIVE METABOLIC [id number] 00:00:00 Test Item Value Reference Range Interpretation Comments GLUCOSE (test code = 2217) 126 MG/DL BUN (test code = 2208) 14 MG/DL CREATININE (test code = 2214) 0.76 MG/DL eGFR (2020 CKD-EPI) (test code 93 ML/MIN/1.73 = 18628) CALC BUN/CREAT (test code = 18 RATIO [...] SECONDS = 1402) INR (test code = 10266) 1.0 PROTHROMBIN TIME (PT)2021-10-04 00:00:00 Test Item Value Reference Range Interpretation Comments PROTHROMBIN TIME (PT) (test code 14.0 SECONDS = 1402) INR (test code = 48422) 1.0 [id number] 00:00:00 Test Item Value Reference Range Interpretation Comments TSH, THIRD GENERATION (test code 2.070 UIU/ML = 2821) [id number] 00:00:00 Test Item Value Reference Range Interpretation Comments TSH, THIRD GENERATION (test code 2.070 UIU/ML = 2821) [id number] 00:00:00 Test Item Value Reference Range Interpretation Comments TSH, THIRD GENERATION (test code 2.070 UIU/ML = 2821) HEMOGLOBIN [id number] 00:00:00 Test Item Value Reference Range Interpretation Comments HEMOGLOBIN A1c (test code = 58468) 5.3 % HEMOGLOBIN [id number] 00:00:00 Test Item Value Reference Range Interpretation Comments HEMOGLOBIN A1c (test code = 30261) 5.3 % HEMOGLOBIN [id number] 00:00:00 Test Item Value Reference Range Interpretation Comments HEMOGLOBIN A1c (test code = 07781) 5.3 % [id number] 00:00:00 Test Item Value Reference Range Interpretation Comments D-DIMER (test code = 1405) <0.27 UG/MLFEU [id number] 00:00:00 Test Item Value Reference Range Interpretation Comments D-DIMER (test code = 1405) <0.27 UG/MLFEU PROTHROMBIN TIME (PT)2021-10-04 00:00:00 Test Item Value Reference Range Interpretation Comments PROTHROMBIN TIME (PT) (test code 14.0 SECONDS = 1402) INR (test code = 12485) 1.0 PROTHROMBIN TIME (PT)2021-10-04 00:00:00 Test Item Value Reference Range Interpretation Comments PROTHROMBIN TIME (PT) (test code 14.0 SECONDS = 1402) INR (test code = 17764) 1.0 COMPREHENSIVE METABOLIC [id number] 00:00:00 Test Item Value Reference Range Interpretation Comments GLUCOSE (test code = 2217) 126 MG/DL BUN (test code = 2208) 14 MG/DL CREATININE (test code = 2214) 0.76 MG/DL eGFR (2020 CKD-EPI) (test code 93 ML/MIN/1.73 = 72183) CALC BUN/CREAT (test code = 18 RATIO [...] code = 2219) 89 U/L COMPREHENSIVE METABOLIC [id number] 00:00:00 Test Item Value Reference Range Interpretation Comments GLUCOSE (test code = 2217) 126 MG/DL BUN (test code = 2208) 14 MG/DL CREATININE (test code = 2214) 0.76 MG/DL eGFR (2020 CKD-EPI) (test code 93 ML/MIN/1.73 = 77167) CALC BUN/CREAT (test code = 18 RATIO [...] ALT (test code = 2219) 89 U/L [id number] 00:00:00 Test Item Value Reference Range Interpretation Comments TSH, THIRD GENERATION (test code 2.070 UIU/ML = 2821) [id number] 00:00:00 Test Item Value Reference Range Interpretation Comments TSH, THIRD GENERATION (test code 2.070 UIU/ML = 2821) [id number] 00:00:00 Test Item Value Reference Range Interpretation Comments TSH, THIRD GENERATION (test code 2.070 UIU/ML = 2821) HEMOGLOBIN [id number] 00:00:00 Test Item Value Reference Range Interpretation Comments HEMOGLOBIN A1c (test code = 40643) 5.3 % HEMOGLOBIN [id number] 00:00:00 Test Item Value Reference Range Interpretation Comments HEMOGLOBIN A1c (test code = 13656) 5.3 % HEMOGLOBIN [id number] 00:00:00 Test Item Value Reference Range Interpretation Comments HEMOGLOBIN A1c (test code = 70104) 5.3 % [id number] 00:00:00 Test Item Value Reference Range Interpretation Comments D-DIMER (test code = 1405) <0.27 UG/MLFEU [id number] 00:00:00 Test Item Value Reference Range Interpretation Comments D-DIMER (test code = 1405) <0.27 UG/MLFEU PROTHROMBIN TIME (PT)2021-10-04 00:00:00 Test Item Value Reference Range Interpretation Comments PROTHROMBIN TIME (PT) (test code 14.0 SECONDS = 1402) INR (test code = 86873) 1.0 PROTHROMBIN TIME (PT)2021-10-04 00:00:00 Test Item Value Reference Range Interpretation Comments PROTHROMBIN TIME (PT) (test code 14.0 SECONDS = 1402) INR (test code = 57524) 1.0 COMPREHENSIVE METABOLIC [id number] 00:00:00 Test Item Value Reference Range Interpretation Comments GLUCOSE (test code = 2217) 126 MG/DL BUN (test code = 2208) 14 MG/DL CREATININE (test code = 2214) 0.76 MG/DL eGFR (2020 CKD-EPI) (test code 93 ML/MIN/1.73 = 63897) CALC BUN/CREAT (test code = 18 RATIO [...] code = 2219) 89 U/L COMPREHENSIVE METABOLIC [id number] 00:00:00 Test Item Value Reference Range Interpretation Comments GLUCOSE (test code = 2217) 126 MG/DL BUN (test code = 2208) 14 MG/DL CREATININE (test code = 2214) 0.76 MG/DL eGFR (2020 CKD-EPI) (test code 93 ML/MIN/1.73 = 57606) CALC BUN/CREAT (test code = 18 RATIO [...] ALT (test code = 2219) 89 U/L [id number] 00:00:00 Test Item Value Reference Range Interpretation Comments TSH, THIRD GENERATION (test code 2.070 UIU/ML = 2821) [id number] 00:00:00 Test Item Value Reference Range Interpretation Comments TSH, THIRD GENERATION (test code 2.070 UIU/ML = 2821) [id number] 00:00:00 Test Item Value Reference Range Interpretation Comments TSH, THIRD GENERATION (test code 2.070 UIU/ML = 2821) HEMOGLOBIN [id number] 00:00:00 Test Item Value Reference Range Interpretation Comments HEMOGLOBIN A1c (test code = 26320) 5.3 % HEMOGLOBIN [id number] 00:00:00 Test Item Value Reference Range Interpretation Comments HEMOGLOBIN A1c (test code = 26515) 5.3 % HEMOGLOBIN [id number] 00:00:00 Test Item Value Reference Range Interpretation Comments HEMOGLOBIN A1c (test code = 97362) 5.3 % CBC W/AUTO DIFF WITH [id number] 03:31:03 Test Item Value Reference Range Interpretation [...] RBCS 0.00 K/UL 0.00-0.11 (test code = 28316) COMPREHENSIVE METABOLIC [id number] 03:15:48 Test Item Value Reference Range Interpretation Comments GLUCOSE (test code = 100 MG/DL 70-99 H 2216) BUN (test code = 13 MG/DL 6-20 2207) CREATININE (test 0.63 MG/DL 0.60-1.30 code = 2213) eGFR (2020 CKD-EPI) 105 >60 (test code = 49663) ML/MIN/1.73 CALC BUN/CREAT (test 21 RATIO 6-28 code = 223) SODIUM (test code = 141 MEQ/L 764-582 9586) POTASSIUM (test code 4.5 MEQ/L 3.5-5.4 = 2227) CHLORIDE (test code 109 MEQ/L 95-107 H = 2214) CARBON DIOXIDE (test 23 MEQ/L 19-31 code = 2205) CALCIUM (test code = 11.1 MG/DL 8.5-10.5 H 2208) PROTEIN, TOTAL (test 7.0 G/DL 6.1-8.3 code = 222) ALBUMIN (test code = 4.0 G/DL 3.5-5.2 2200) CALC GLOBULIN (test 3.0 G/DL 1.9-3.7 code = 2240) CALC A/G RATIO (test 1.3 RATIO 1.0-2.6 code = 223) BILIRUBIN, TOTAL [...] [facility] [address] [place] [address] [facility] DIRECTOR: TANNER VELASQUEZ M.D. CLIA NUMBER [id number] [facility] ACCREDITATION N O. [id number] CBC W/AUTO [id number] 00:00:00 Test Item Value Reference Range Interpretation [...] NUCLEATED RBCS (test code = 0.00 K/UL 81499) CBC W/AUTO [id number] 00:00:00 Test Item Value Reference Range Interpretation [...] NUCLEATED RBCS (test code = 0.00 K/UL 61201) CBC W/AUTO [id number] 00:00:00 Test Item Value Reference Range Interpretation [...] NUCLEATED RBCS (test code = 0.00 K/UL 24740) CBC W/AUTO [id number] 00:00:00 Test Item Value Reference Range Interpretation [...] NUCLEATED RBCS (test code = 0.00 K/UL 58221) CBC W/AUTO [id number] 00:00:00 Test Item Value Reference Range Interpretation [...] NUCLEATED RBCS (test code = 0.00 K/UL 73359) COMPREHENSIVE METABOLIC [id number] 00:00:00 Test Item Value Reference Range Interpretation Comments GLUCOSE (test code = 2217) 100 MG/DL BUN (test code = 2208) 13 MG/DL CREATININE (test code = 2214) 0.63 MG/DL eGFR (2020 CKD-EPI) (test 105 ML/MIN/1.73 code = 48760) CALC BUN/CREAT (test code = 21 RATIO [...] code = 2219) 33 U/L COMPREHENSIVE METABOLIC [id number] 00:00:00 Test Item Value Reference Range Interpretation Comments GLUCOSE (test code = 2217) 100 MG/DL BUN (test code = 2208) 13 MG/DL CREATININE (test code = 2214) 0.63 MG/DL eGFR (2020 CKD-EPI) (test 105 ML/MIN/1.73 code = 50141) CALC BUN/CREAT (test code = 21 RATIO [...] code = 2219) 33 U/L COMPREHENSIVE METABOLIC [id number] 00:00:00 Test Item Value Reference Range Interpretation Comments GLUCOSE (test code = 2217) 100 MG/DL BUN (test code = 2208) 13 MG/DL CREATININE (test code = 2214) 0.63 MG/DL eGFR (2020 CKD-EPI) (test 105 ML/MIN/1.73 code = 88489) CALC BUN/CREAT (test code = 21 RATIO [...] code = 2219) 33 U/L CBC W/AUTO [id number] 00:00:00 Test Item Value Reference Range Interpretation [...] NUCLEATED RBCS (test code = 0.00 K/UL 67786) CBC W/AUTO [id number] 00:00:00 Test Item Value Reference Range Interpretation [...] NUCLEATED RBCS (test code = 0.00 K/UL 35294) CBC W/AUTO [id number] 00:00:00 Test Item Value Reference Range Interpretation [...] NUCLEATED RBCS (test code = 0.00 K/UL 00482) COMPREHENSIVE METABOLIC [id number] 00:00:00 Test Item Value Reference Range Interpretation Comments GLUCOSE (test code = 2217) 100 MG/DL BUN (test code = 2208) 13 MG/DL CREATININE (test code = 2214) 0.63 MG/DL eGFR (2020 CKD-EPI) (test 105 ML/MIN/1.73 code = 94243) CALC BUN/CREAT (test code = 21 RATIO [...] code = 2219) 33 U/L COMPREHENSIVE METABOLIC [id number] 00:00:00 Test Item Value Reference Range Interpretation Comments GLUCOSE (test code = 2217) 100 MG/DL BUN (test code = 2208) 13 MG/DL CREATININE (test code = 2214) 0.63 MG/DL eGFR (2020 CKD-EPI) (test 105 ML/MIN/1.73 code = 48325) CALC BUN/CREAT (test code = 21 RATIO [...] code = 2219) 33 U/L CBC W/AUTO [id number] 00:00:00 Test Item Value Reference Range Interpretation [...] NUCLEATED RBCS (test code = 0.00 K/UL 02958) CBC W/AUTO [id number] 00:00:00 Test Item Value Reference Range Interpretation [...] NUCLEATED RBCS (test code = 0.00 K/UL 85666) CBC W/AUTO [id number] 00:00:00 Test Item Value Reference Range Interpretation [...] NUCLEATED RBCS (test code = 0.00 K/UL 50736) COMPREHENSIVE METABOLIC [id number] 00:00:00 Test Item Value Reference Range Interpretation Comments GLUCOSE (test code = 2217) 100 MG/DL BUN (test code = 2208) 13 MG/DL CREATININE (test code = 2214) 0.63 MG/DL eGFR (2020 CKD-EPI) (test 105 ML/MIN/1.73 code = 81786) CALC BUN/CREAT (test code = 21 RATIO [...] code = 2219) 33 U/L COMPREHENSIVE METABOLIC [id number] 00:00:00 Test Item Value Reference Range Interpretation Comments GLUCOSE (test code = 2217) 100 MG/DL BUN (test code = 2208) 13 MG/DL CREATININE (test code = 2214) 0.63 MG/DL eGFR (2020 CKD-EPI) (test 105 ML/MIN/1.73 code = 36159) CALC BUN/CREAT (test code = 21 RATIO [...] code = 2219) 33 U/L CBC W/AUTO [id number] 00:00:00 Test Item Value Reference Range Interpretation [...] NUCLEATED RBCS (test code = 0.00 K/UL 07002) CBC W/AUTO [id number] 00:00:00 Test Item Value Reference Range Interpretation [...] NUCLEATED RBCS (test code = 0.00 K/UL 88489) CBC W/AUTO [id number] 00:00:00 Test Item Value Reference Range Interpretation [...] NUCLEATED RBCS (test code = 0.00 K/UL 43318) COMPREHENSIVE METABOLIC [id number] 00:00:00 Test Item Value Reference Range Interpretation Comments GLUCOSE (test code = 2217) 100 MG/DL BUN (test code = 2208) 13 MG/DL CREATININE (test code = 2214) 0.63 MG/DL eGFR (2020 CKD-EPI) (test 105 ML/MIN/1.73 code = 64108) CALC BUN/CREAT (test code = 21 RATIO [...] code = 2219) 33 U/L COMPREHENSIVE METABOLIC [id number] 00:00:00 Test Item Value Reference Range Interpretation Comments GLUCOSE (test code = 2217) 100 MG/DL BUN (test code = 2208) 13 MG/DL CREATININE (test code = 2214) 0.63 MG/DL eGFR (2020 CKD-EPI) (test 105 ML/MIN/1.73 code = 06168) CALC BUN/CREAT (test code = 21 RATIO [...] code = 2219) 33 U/L CBC W/AUTO [id number] 00:00:00 Test Item Value Reference Range Interpretation [...] NUCLEATED RBCS (test code = 0.00 K/UL 83231) CBC W/AUTO [id number] 00:00:00 Test Item Value Reference Range Interpretation [...] NUCLEATED RBCS (test code = 0.00 K/UL 25866) CBC W/AUTO [id number] 00:00:00 Test Item Value Reference Range Interpretation [...] NUCLEATED RBCS (test code = 0.00 K/UL 45347) COMPREHENSIVE METABOLIC [id number] 00:00:00 Test Item Value Reference Range Interpretation Comments GLUCOSE (test code = 2217) 100 MG/DL BUN (test code = 2208) 13 MG/DL CREATININE (test code = 2214) 0.63 MG/DL eGFR (2020 CKD-EPI) (test 105 ML/MIN/1.73 code = 30534) CALC BUN/CREAT (test code = 21 RATIO [...] code = 2219) 33 U/L COMPREHENSIVE METABOLIC [id number] 00:00:00 Test Item Value Reference Range Interpretation Comments GLUCOSE (test code = 2217) 100 MG/DL BUN (test code = 2208) 13 MG/DL CREATININE (test code = 2214) 0.63 MG/DL eGFR (2020 CKD-EPI) (test 105 ML/MIN/1.73 code = 42072) CALC BUN/CREAT (test code = 21 RATIO [...] code = 2219) 33 U/L CBC W/AUTO [id number] 00:00:00 Test Item Value Reference Range Interpretation [...] NUCLEATED RBCS (test code = 0.00 K/UL 84299) CBC W/AUTO [id number] 00:00:00 Test Item Value Reference Range Interpretation [...] code = 0.00 K/UL 71454) CBC W/AUTO [id number] 00:00:00 Test Item Value Reference Range Interpretation [...] NUCLEATED RBCS (test code = 0.00 K/UL 59517) COMPREHENSIVE METABOLIC [id number] 00:00:00 Test Item Value Reference Range Interpretation Comments GLUCOSE (test code = 2217) 100 MG/DL BUN (test code = 2208) 13 MG/DL CREATININE (test code = 2214) 0.63 MG/DL eGFR (2020 CKD-EPI) (test 105 ML/MIN/1.73 code = 78475) CALC BUN/CREAT (test code = 21 RATIO [...] code = 2219) 33 U/L COMPREHENSIVE METABOLIC [id number] 00:00:00 Test Item Value Reference Range Interpretation Comments GLUCOSE (test code = 2217) 100 MG/DL BUN (test code = 2208) 13 MG/DL CREATININE (test code = 2214) 0.63 MG/DL eGFR (2020 CKD-EPI) (test 105 ML/MIN/1.73 code = 70806) CALC BUN/CREAT (test code = 21 RATIO [...] code = 2219) 33 U/L CBC W/AUTO [id number] 00:00:00 Test Item Value Reference Range Interpretation [...] NUCLEATED RBCS (test code = 0.00 K/UL 01006) CBC W/AUTO [id number] 00:00:00 Test Item Value Reference Range Interpretation [...] NUCLEATED RBCS (test code = 0.00 K/UL 96371) CBC W/AUTO [id number] 00:00:00 Test Item Value Reference Range Interpretation [...] NUCLEATED RBCS (test code = 0.00 K/UL 74243) COMPREHENSIVE METABOLIC [id number] 00:00:00 Test Item Value Reference Range Interpretation Comments GLUCOSE (test code = 2217) 100 MG/DL BUN (test code = 2208) 13 MG/DL CREATININE (test code = 2214) 0.63 MG/DL eGFR (2020 CKD-EPI) (test 105 ML/MIN/1.73 code = 30961) CALC BUN/CREAT (test code = 21 RATIO [...] code = 2219) 33 U/L COMPREHENSIVE METABOLIC [id number] 00:00:00 Test Item Value Reference Range Interpretation Comments GLUCOSE (test code = 2217) 100 MG/DL BUN (test code = 2208) 13 MG/DL CREATININE (test code = 2214) 0.63 MG/DL eGFR (2020 CKD-EPI) (test 105 ML/MIN/1.73 code = 22879) CALC BUN/CREAT (test code = 21 RATIO [...] code = 2219) 33 U/L CBC W/AUTO [id number] 00:00:00 Test Item Value Reference Range Interpretation [...] NUCLEATED RBCS (test code = 0.00 K/UL 33607) CBC W/AUTO [id number] 00:00:00 Test Item Value Reference Range Interpretation [...] NUCLEATED RBCS (test code = 0.00 K/UL 19064) CBC W/AUTO [id number] 00:00:00 Test Item Value Reference Range Interpretation [...] NUCLEATED RBCS (test code = 0.00 K/UL 46897) COMPREHENSIVE METABOLIC [id number] 00:00:00 Test Item Value Reference Range Interpretation Comments GLUCOSE (test code = 2217) 100 MG/DL BUN (test code = 2208) 13 MG/DL CREATININE (test code = 2214) 0.63 MG/DL eGFR (2020 CKD-EPI) (test 105 ML/MIN/1.73 code = 74146) CALC BUN/CREAT (test code = 21 RATIO [...] code = 2219) 33 U/L COMPREHENSIVE METABOLIC [id number] 00:00:00 Test Item Value Reference Range Interpretation Comments GLUCOSE (test code = 2217) 100 MG/DL BUN (test code = 2208) 13 MG/DL CREATININE (test code = 2214) 0.63 MG/DL eGFR (2020 CKD-EPI) (test 105 ML/MIN/1.73 code = 14911) CALC BUN/CREAT (test code = 21 RATIO [...] code = 2219) 33 U/L CBC W/AUTO [id number] 00:00:00 Test Item Value Reference Range Interpretation [...] NUCLEATED RBCS (test code = 0.00 K/UL 72416) CBC W/AUTO [id number] 00:00:00 Test Item Value Reference Range Interpretation [...] NUCLEATED RBCS (test code = 0.00 K/UL 52531) CBC W/AUTO [id number] 00:00:00 Test Item Value Reference Range Interpretation [...] NUCLEATED RBCS (test code = 0.00 K/UL 98958) COMPREHENSIVE METABOLIC [id number] 00:00:00 Test Item Value Reference Range Interpretation Comments GLUCOSE (test code = 2217) 100 MG/DL BUN (test code = 2208) 13 MG/DL CREATININE (test code = 2214) 0.63 MG/DL eGFR (2020 CKD-EPI) (test 105 ML/MIN/1.73 code = 34346) CALC BUN/CREAT (test code = 21 RATIO [...] code = 2204) AST (test code = 221) 23 U/L ALT (test code = 2219) 33 U/L COMPREHENSIVE METABOLIC [id number] 00:00:00 Test Item Value Reference Range Interpretation Comments GLUCOSE (test code = 2217) 100 MG/DL BUN (test code = 2208) 13 MG/DL CREATININE (test code = 2214) 0.63 MG/DL eGFR (2020 CKD-EPI) (test 105 ML/MIN/1.73 code = 22402) CALC BUN/CREAT (test code = 21 RATIO [...] code = 2219) 33 U/L CBC W/AUTO [id number] 00:00:00 Test Item Value Reference Range Interpretation [...] NUCLEATED RBCS (test code = 0.00 K/UL 63250) CBC W/AUTO [id number] 00:00:00 Test Item Value Reference Range Interpretation [...] NUCLEATED RBCS (test code = 0.00 K/UL 83395) CBC W/AUTO [id number] 00:00:00 Test Item Value Reference Range Interpretation [...] NUCLEATED RBCS (test code = 0.00 K/UL 29189) COMPREHENSIVE METABOLIC [id number] 00:00:00 Test Item Value Reference Range Interpretation Comments GLUCOSE (test code = 2217) 100 MG/DL BUN (test code = 2208) 13 MG/DL CREATININE (test code = 2214) 0.63 MG/DL eGFR (2020 CKD-EPI) (test 105 ML/MIN/1.73 code = 18550) CALC BUN/CREAT (test code = 21 RATIO [...] code = 2219) 33 U/L COMPREHENSIVE METABOLIC [id number] 00:00:00 Test Item Value Reference Range Interpretation Comments GLUCOSE (test code = 2217) 100 MG/DL BUN (test code = 2208) 13 MG/DL CREATININE (test code = 2214) 0.63 MG/DL eGFR (2020 CKD-EPI) (test 105 ML/MIN/1.73 code = 65767) CALC BUN/CREAT (test code = 21 RATIO [...] code = 2219) 33 U/L CBC W/AUTO [id number] 00:00:00 Test Item Value Reference Range Interpretation [...] NUCLEATED RBCS (test code = 0.00 K/UL 49602) CBC W/AUTO [id number] 00:00:00 Test Item Value Reference Range Interpretation [...] NUCLEATED RBCS (test code = 0.00 K/UL 74351) CBC W/AUTO [id number] 00:00:00 Test Item Value Reference Range Interpretation [...] NUCLEATED RBCS (test code = 0.00 K/UL 96845) COMPREHENSIVE METABOLIC [id number] 00:00:00 Test Item Value Reference Range Interpretation Comments GLUCOSE (test code = 2217) 100 MG/DL BUN (test code = 2208) 13 MG/DL CREATININE (test code = 2214) 0.63 MG/DL eGFR (2020 CKD-EPI) (test 105 ML/MIN/1.73 code = 37211) CALC BUN/CREAT (test code = 21 RATIO [...] code = 2219) 33 U/L COMPREHENSIVE METABOLIC [id number] 00:00:00 Test Item Value Reference Range Interpretation Comments GLUCOSE (test code = 2217) 100 MG/DL BUN (test code = 2208) 13 MG/DL CREATININE (test code = 2214) 0.63 MG/DL eGFR (2020 CKD-EPI) (test 105 ML/MIN/1.73 code = 86045) CALC BUN/CREAT (test code = 21 RATIO [...] code = 2219) 33 U/L CBC W/AUTO [id number] 00:00:00 Test Item Value Reference Range Interpretation [...] NUCLEATED RBCS (test code = 0.00 K/UL 36442) CBC W/AUTO [id number] 00:00:00 Test Item Value Reference Range Interpretation [...] NUCLEATED RBCS (test code = 0.00 K/UL 65394) CBC W/AUTO [id number] 00:00:00 Test Item Value Reference Range Interpretation [...] NUCLEATED RBCS (test code = 0.00 K/UL 23383) COMPREHENSIVE METABOLIC [id number] 00:00:00 Test Item Value Reference Range Interpretation Comments GLUCOSE (test code = 2217) 100 MG/DL BUN (test code = 2208) 13 MG/DL CREATININE (test code = 2214) 0.63 MG/DL eGFR (2020 CKD-EPI) (test 105 ML/MIN/1.73 code = 20545) CALC BUN/CREAT (test code = 21 RATIO [...] code = 2219) 33 U/L COMPREHENSIVE METABOLIC [id number] 00:00:00 Test Item Value Reference Range Interpretation Comments GLUCOSE (test code = 2217) 100 MG/DL BUN (test code = 2208) 13 MG/DL CREATININE (test code = 2214) 0.63 MG/DL eGFR (2020 CKD-EPI) (test 105 ML/MIN/1.73 code = 58460) CALC BUN/CREAT (test code = 21 RATIO 2234) SODIUM (test code = 2231) 141 MEQ/L POTASSIUM (test code = 2228) 4.5 MEQ/L CHLORIDE (test code = 2215) 109 MEQ/L CARBON DIOXIDE (test code = 23 MEQ/L 2205) CALCIUM (test code = 220) 11.1 MG/DL PROTEIN, TOTAL (test code = 7.0 G/DL 2228) ALBUMIN (test code = 220) 4.0 G/DL CALC GLOBULIN (test code = 3.0 G/DL 2239) CALC A/G RATIO (test code = 1.3 RATIO 2233) BILIRUBIN, TOTAL (test code = 0.6 MG/DL 2206) ALKALINE PHOSPHATASE (test 99 U/L code = 2203) AST (test code = 221) 23 U/L ALT (test code = 221) 33 U/L CALCIUM, [id number] 11:34:01 Test Item Value Reference Range Interpretation Comments CALCIUM, IONIZED (test code = 6.01 MG/DL 4.70-5.90 H ) INTACT [id number] 08:00:45 Test Item Value Reference Range Interpretation Comments INTACT PTH (test code = 5005) 143 PG/ML 15-65 H TSH, THIRD [id number] 06:20:18 Test Item Value Reference Range Interpretation Comments TSH, THIRD GENERATION (test code 3.840 UIU/ML 0.400-4.100 = 2821) [id number] 04:33:24 Test Item Value Reference Range Interpretation Comments LITHIUM (test code 0.54 MEQ/L 0.60-1.20 L UNLESS O THERWISE = 2038) INDICATED, ALL TESTING PERFORMED [facility] [address] [facility], [place] [address] [address] LABORATORY DIRE CTOR: Sahara GAONAIA NUMBER [id number] [place] [id number] COMPREHENSIVE METABOLIC [id number] 04:08:07 Test Item Value Reference Range Interpretation Comments GLUCOSE (test code = 90 MG/DL 70-99 2216) BUN (test code = 13 MG/DL -2207) CREATININE (test 0.74 MG/DL 0.60-1.30 code = 2214) eGFR (2020 CKD-EPI) 97 ML/MIN/1.73 >60 (test code = 16866) CALC BUN/CREAT (test 18 RATIO 6-28 code = 2235) SODIUM (test code = 142 MEQ/L 528-491 5279) POTASSIUM (test code 5.0 MEQ/L 3.5-5.4 = [...] code = 38 U/L 5-40 2218) LIPID [id number] 04:08:07 Test Item Value Reference Range Interpretation [...] , SEE CLIENT ANNOUNCE MENT AT [email or web address] [email or web address] RATIO LDL/HDL 2.37 RATIO <3.22 (test code = 2238) INTACT [id number] 00:00:00 Test Item Value Reference Range Interpretation Comments INTACT PTH (test code = 5005) 143 PG/ML INTACT [id number] 00:00:00 Test Item Value Reference Range Interpretation Comments INTACT PTH (test code = 5005) 143 PG/ML INTACT [id number] 00:00:00 Test Item Value Reference Range Interpretation Comments INTACT PTH (test code = 5005) 143 PG/ML IONIZED CALCIUM, [id number] 00:00:00 Test Item Value Reference Range Interpretation Comments CALCIUM, IONIZED (test code = 6.01 MG/DL 10103) IONIZED CALCIUM, [id number] 00:00:00 Test Item Value Reference Range Interpretation Comments CALCIUM, IONIZED (test code = 6.01 MG/DL 03307) [id number] 00:00:00 Test Item Value Reference Range Interpretation Comments LITHIUM (test code = 2039) 0.54 MEQ/L [id number] 00:00:00 Test Item Value Reference Range Interpretation Comments LITHIUM (test code = 2039) 0.54 MEQ/L [id number] 00:00:00 Test Item Value Reference Range Interpretation Comments LITHIUM (test code = 2039) 0.54 MEQ/L [id number] 00:00:00 Test Item Value Reference Range Interpretation Comments TSH, THIRD GENERATION (test code 3.840 UIU/ML = 2821) [id number] 00:00:00 Test Item Value Reference Range Interpretation Comments TSH, THIRD GENERATION (test code 3.840 UIU/ML = 2821) [id number] 00:00:00 Test Item Value Reference Range Interpretation Comments TSH, THIRD GENERATION (test code 3.840 UIU/ML = 2821) [id number] 00:00:00 Test Item Value Reference Range Interpretation Comments TSH, THIRD GENERATION (test code 3.840 UIU/ML = 2821) COMPREHENSIVE METABOLIC [id number] 00:00:00 Test Item Value Reference Range Interpretation Comments GLUCOSE (test code = 2217) 90 MG/DL BUN (test code = 2208) 13 MG/DL CREATININE (test code = 2214) 0.74 MG/DL eGFR (2020 CKD-EPI) (test code 97 ML/MIN/1.73 = 12909) CALC BUN/CREAT (test code = 18 RATIO [...] ALT (test code = 2219) 38 U/L [id number] 00:00:00 Test Item Value Reference Range Interpretation Comments TSH, THIRD GENERATION (test code 3.840 UIU/ML = 2821) COMPREHENSIVE METABOLIC [id number] 00:00:00 Test Item Value Reference Range Interpretation Comments GLUCOSE (test code = 2217) 90 MG/DL BUN (test code = 2208) 13 MG/DL CREATININE (test code = 2214) 0.74 MG/DL eGFR (2020 CKD-EPI) (test code 97 ML/MIN/1.73 = 23354) CALC BUN/CREAT (test code = 18 RATIO [...] code = 2219) 38 U/L COMPREHENSIVE METABOLIC [id number] 00:00:00 Test Item Value Reference Range Interpretation Comments GLUCOSE (test code = 2217) 90 MG/DL BUN (test code = 2208) 13 MG/DL CREATININE (test code = 2214) 0.74 MG/DL eGFR (2020 CKD-EPI) (test code 97 ML/MIN/1.73 = 64690) CALC BUN/CREAT (test code = 18 RATIO [...] (test code = 2219) 38 U/L LIPID [id number] 00:00:00 Test Item Value Reference Range Interpretation Comments CHOLESTEROL (test code = 2210) 123 MG/DL TRIGLYCERIDES (test code = 2232) 137 MG/DL HDL CHOLESTEROL (test code = 2220) 30 MG/DL CALC LDL CHOL (test code = 2237) 71 MG/DL RISK RATIO LDL/HDL (test code = 2.37 RATIO 2238) LIPID [id number] 00:00:00 Test Item Value Reference Range Interpretation Comments CHOLESTEROL (test code = 2210) 123 MG/DL TRIGLYCERIDES (test code = 2232) 137 MG/DL HDL CHOLESTEROL (test code = 2220) 30 MG/DL CALC LDL CHOL (test code = 2237) 71 MG/DL RISK RATIO LDL/HDL (test code = 2.37 RATIO 2238) INTACT [id number] 00:00:00 Test Item Value Reference Range Interpretation Comments INTACT PTH (test code = 5005) 143 PG/ML INTACT [id number] 00:00:00 Test Item Value Reference Range Interpretation Comments INTACT PTH (test code = 5005) 143 PG/ML INTACT [id number] 00:00:00 Test Item Value Reference Range Interpretation Comments INTACT PTH (test code = 5005) 143 PG/ML IONIZED CALCIUM, [id number] 00:00:00 Test Item Value Reference Range Interpretation Comments CALCIUM, IONIZED (test code = 6.01 MG/DL 51500) IONIZED CALCIUM, [id number] 00:00:00 Test Item Value Reference Range Interpretation Comments CALCIUM, IONIZED (test code = 6.01 MG/DL 72439) [id number] 00:00:00 Test Item Value Reference Range Interpretation Comments LITHIUM (test code = 2039) 0.54 MEQ/L [id number] 00:00:00 Test Item Value Reference Range Interpretation Comments LITHIUM (test code = 2039) 0.54 MEQ/L [id number] 00:00:00 Test Item Value Reference Range Interpretation Comments LITHIUM (test code = 2039) 0.54 MEQ/L LIPID [id number] 00:00:00 Test Item Value Reference Range Interpretation Comments CHOLESTEROL (test code = 2210) 123 MG/DL TRIGLYCERIDES (test code = 2232) 137 MG/DL HDL CHOLESTEROL (test code = 2220) 30 MG/DL CALC LDL CHOL (test code = 2237) 71 MG/DL RISK RATIO LDL/HDL (test code = 2.37 RATIO 2238) INTACT [id number] 00:00:00 Test Item Value Reference Range Interpretation Comments INTACT PTH (test code = 5005) 143 PG/ML INTACT [id number] 00:00:00 Test Item Value Reference Range Interpretation Comments INTACT PTH (test code = 5005) 143 PG/ML IONIZED CALCIUM, [id number] 00:00:00 Test Item Value Reference Range Interpretation Comments CALCIUM, IONIZED (test code = 6.01 MG/DL 31898) [id number] 00:00:00 Test Item Value Reference Range Interpretation Comments TSH, THIRD GENERATION (test code 3.840 UIU/ML = 2821) [id number] 00:00:00 Test Item Value Reference Range Interpretation Comments LITHIUM (test code = 2039) 0.54 MEQ/L [id number] 00:00:00 Test Item Value Reference Range Interpretation Comments LITHIUM (test code = 2039) 0.54 MEQ/L [id number] 00:00:00 Test Item Value Reference Range Interpretation Comments TSH, THIRD GENERATION (test code 3.840 UIU/ML = 2821) [id number] 00:00:00 Test Item Value Reference Range Interpretation Comments TSH, THIRD GENERATION (test code 3.840 UIU/ML = 2821) COMPREHENSIVE METABOLIC [id number] 00:00:00 Test Item Value Reference Range Interpretation Comments GLUCOSE (test code = 2217) 90 MG/DL BUN (test code = 2208) 13 MG/DL CREATININE (test code = 2214) 0.74 MG/DL eGFR (2020 CKD-EPI) (test code 97 ML/MIN/1.73 = 72729) CALC BUN/CREAT (test code = 18 RATIO [...] code = 2219) 38 U/L COMPREHENSIVE METABOLIC [id number] 00:00:00 Test Item Value Reference Range Interpretation Comments GLUCOSE (test code = 2217) 90 MG/DL BUN (test code = 2208) 13 MG/DL CREATININE (test code = 2214) 0.74 MG/DL eGFR (2020 CKD-EPI) (test code 97 ML/MIN/1.73 = 28949) CALC BUN/CREAT (test code = 18 RATIO [...] (test code = 2219) 38 U/L LIPID [id number] 00:00:00 Test Item Value Reference Range Interpretation Comments CHOLESTEROL (test code = 2210) 123 MG/DL TRIGLYCERIDES (test code = 2232) 137 MG/DL HDL CHOLESTEROL (test code = 2220) 30 MG/DL CALC LDL CHOL (test code = 2237) 71 MG/DL RISK RATIO LDL/HDL (test code = 2.37 RATIO 2238) LIPID [id number] 00:00:00 Test Item Value Reference Range Interpretation Comments CHOLESTEROL (test code = 2210) 123 MG/DL TRIGLYCERIDES (test code = 2232) 137 MG/DL HDL CHOLESTEROL (test code = 2220) 30 MG/DL CALC LDL CHOL (test code = 2237) 71 MG/DL RISK RATIO LDL/HDL (test code = 2.37 RATIO 2238) INTACT [id number] 00:00:00 Test Item Value Reference Range Interpretation Comments INTACT PTH (test code = 5005) 143 PG/ML INTACT [id number] 00:00:00 Test Item Value Reference Range Interpretation Comments INTACT PTH (test code = 5005) 143 PG/ML INTACT [id number] 00:00:00 Test Item Value Reference Range Interpretation Comments INTACT PTH (test code = 5005) 143 PG/ML IONIZED CALCIUM, [id number] 00:00:00 Test Item Value Reference Range Interpretation Comments CALCIUM, IONIZED (test code = 6.01 MG/DL 78067) IONIZED CALCIUM, [id number] 00:00:00 Test Item Value Reference Range Interpretation Comments CALCIUM, IONIZED (test code = 6.01 MG/DL 68281) [id number] 00:00:00 Test Item Value Reference Range Interpretation Comments LITHIUM (test code = 203) 0.54 MEQ/L [id number] 00:00:00 Test Item Value Reference Range Interpretation Comments LITHIUM (test code = 203) 0.54 MEQ/L [id number] 00:00:00 Test Item Value Reference Range Interpretation Comments LITHIUM (test code = 2039) 0.54 MEQ/L [id number] 00:00:00 Test Item Value Reference Range Interpretation Comments TSH, THIRD GENERATION (test code 3.840 UIU/ML = 2821) [id number] 00:00:00 Test Item Value Reference Range Interpretation Comments TSH, THIRD GENERATION (test code 3.840 UIU/ML = 2821) [id number] 00:00:00 Test Item Value Reference Range Interpretation Comments TSH, THIRD GENERATION (test code 3.840 UIU/ML = 2821) COMPREHENSIVE METABOLIC [id number] 00:00:00 Test Item Value Reference Range Interpretation Comments GLUCOSE (test code = 2217) 90 MG/DL BUN (test code = 2208) 13 MG/DL CREATININE (test code = 2214) 0.74 MG/DL eGFR (2020 CKD-EPI) (test code 97 ML/MIN/1.73 = 27145) CALC BUN/CREAT (test code = 18 RATIO [...] code = 2219) 38 U/L COMPREHENSIVE METABOLIC [id number] 00:00:00 Test Item Value Reference Range Interpretation Comments GLUCOSE (test code = 2217) 90 MG/DL BUN (test code = 2208) 13 MG/DL CREATININE (test code = 2214) 0.74 MG/DL eGFR (2020 CKD-EPI) (test code 97 ML/MIN/1.73 = 67065) CALC BUN/CREAT (test code = 18 RATIO [...] (test code = 2219) 38 U/L LIPID [id number] 00:00:00 Test Item Value Reference Range Interpretation Comments CHOLESTEROL (test code = 2210) 123 MG/DL TRIGLYCERIDES (test code = 2232) 137 MG/DL HDL CHOLESTEROL (test code = 2220) 30 MG/DL CALC LDL CHOL (test code = 2237) 71 MG/DL RISK RATIO LDL/HDL (test code = 2.37 RATIO 2238) LIPID [id number] 00:00:00 Test Item Value Reference Range Interpretation Comments CHOLESTEROL (test code = 2210) 123 MG/DL TRIGLYCERIDES (test code = 2232) 137 MG/DL HDL CHOLESTEROL (test code = 2220) 30 MG/DL CALC LDL CHOL (test code = 2237) 71 MG/DL RISK RATIO LDL/HDL (test code = 2.37 RATIO 2238) INTACT [id number] 00:00:00 Test Item Value Reference Range Interpretation Comments INTACT PTH (test code = 5005) 143 PG/ML INTACT [id number] 00:00:00 Test Item Value Reference Range Interpretation Comments INTACT PTH (test code = 5005) 143 PG/ML INTACT [id number] 00:00:00 Test Item Value Reference Range Interpretation Comments INTACT PTH (test code = 5005) 143 PG/ML IONIZED CALCIUM, [id number] 00:00:00 Test Item Value Reference Range Interpretation Comments CALCIUM, IONIZED (test code = 6.01 MG/DL 94757) IONIZED CALCIUM, [id number] 00:00:00 Test Item Value Reference Range Interpretation Comments CALCIUM, IONIZED (test code = 6.01 MG/DL 51316) [id number] 00:00:00 Test Item Value Reference Range Interpretation Comments LITHIUM (test code = 2039) 0.54 MEQ/L [id number] 00:00:00 Test Item Value Reference Range Interpretation Comments LITHIUM (test code = 2039) 0.54 MEQ/L [id number] 00:00:00 Test Item Value Reference Range Interpretation Comments LITHIUM (test code = 2039) 0.54 MEQ/L [id number] 00:00:00 Test Item Value Reference Range Interpretation Comments TSH, THIRD GENERATION (test code 3.840 UIU/ML = 2821) [id number] 00:00:00 Test Item Value Reference Range Interpretation Comments TSH, THIRD GENERATION (test code 3.840 UIU/ML = 2821) [id number] 00:00:00 Test Item Value Reference Range Interpretation Comments TSH, THIRD GENERATION (test code 3.840 UIU/ML = 2821) COMPREHENSIVE METABOLIC [id number] 00:00:00 Test Item Value Reference Range Interpretation Comments GLUCOSE (test code = 2217) 90 MG/DL BUN (test code = 2208) 13 MG/DL CREATININE (test code = 2214) 0.74 MG/DL eGFR (2020 CKD-EPI) (test code 97 ML/MIN/1.73 = 82951) CALC BUN/CREAT (test code = 18 RATIO [...] code = 2219) 38 U/L COMPREHENSIVE METABOLIC [id number] 00:00:00 Test Item Value Reference Range Interpretation Comments GLUCOSE (test code = 2217) 90 MG/DL BUN (test code = 2208) 13 MG/DL CREATININE (test code = 2214) 0.74 MG/DL eGFR (2020 CKD-EPI) (test code 97 ML/MIN/1.73 = 91869) CALC BUN/CREAT (test code = 18 RATIO [...] (test code = 2219) 38 U/L LIPID [id number] 00:00:00 Test Item Value Reference Range Interpretation Comments CHOLESTEROL (test code = 2210) 123 MG/DL TRIGLYCERIDES (test code = 2232) 137 MG/DL HDL CHOLESTEROL (test code = 2220) 30 MG/DL CALC LDL CHOL (test code = 2237) 71 MG/DL RISK RATIO LDL/HDL (test code = 2.37 RATIO 2238) LIPID [id number] 00:00:00 Test Item Value Reference Range Interpretation Comments CHOLESTEROL (test code = 2210) 123 MG/DL TRIGLYCERIDES (test code = 2232) 137 MG/DL HDL CHOLESTEROL (test code = 2220) 30 MG/DL CALC LDL CHOL (test code = 2237) 71 MG/DL RISK RATIO LDL/HDL (test code = 2.37 RATIO 2238) INTACT [id number] 00:00:00 Test Item Value Reference Range Interpretation Comments INTACT PTH (test code = 5005) 143 PG/ML INTACT [id number] 00:00:00 Test Item Value Reference Range Interpretation Comments INTACT PTH (test code = 5005) 143 PG/ML INTACT [id number] 00:00:00 Test Item Value Reference Range Interpretation Comments INTACT PTH (test code = 5005) 143 PG/ML IONIZED CALCIUM, [id number] 00:00:00 Test Item Value Reference Range Interpretation Comments CALCIUM, IONIZED (test code = 6.01 MG/DL 59018) IONIZED CALCIUM, [id number] 00:00:00 Test Item Value Reference Range Interpretation Comments CALCIUM, IONIZED (test code = 6.01 MG/DL 12091) [id number] 00:00:00 Test Item Value Reference Range Interpretation Comments LITHIUM (test code = 2039) 0.54 MEQ/L [id number] 00:00:00 Test Item Value Reference Range Interpretation Comments LITHIUM (test code = 2039) 0.54 MEQ/L [id number] 00:00:00 Test Item Value Reference Range Interpretation Comments LITHIUM (test code = 2039) 0.54 MEQ/L [id number] 00:00:00 Test Item Value Reference Range Interpretation Comments TSH, THIRD GENERATION (test code 3.840 UIU/ML = 2821) [id number] 00:00:00 Test Item Value Reference Range Interpretation Comments TSH, THIRD GENERATION (test code 3.840 UIU/ML = 2821) [id number] 00:00:00 Test Item Value Reference Range Interpretation Comments TSH, THIRD GENERATION (test code 3.840 UIU/ML = 2821) COMPREHENSIVE METABOLIC [id number] 00:00:00 Test Item Value Reference Range Interpretation Comments GLUCOSE (test code = 2217) 90 MG/DL BUN (test code = 2208) 13 MG/DL CREATININE (test code = 2214) 0.74 MG/DL eGFR (2020 CKD-EPI) (test code 97 ML/MIN/1.73 = 48883) CALC BUN/CREAT (test code = 18 RATIO [...] code = 2219) 38 U/L COMPREHENSIVE METABOLIC [id number] 00:00:00 Test Item Value Reference Range Interpretation Comments GLUCOSE (test code = 2217) 90 MG/DL BUN (test code = 2208) 13 MG/DL CREATININE (test code = 2214) 0.74 MG/DL eGFR (2020 CKD-EPI) (test code 97 ML/MIN/1.73 = 27298) CALC BUN/CREAT (test code = 18 RATIO [...] (test code = 2219) 38 U/L LIPID [id number] 00:00:00 Test Item Value Reference Range Interpretation Comments CHOLESTEROL (test code = 2210) 123 MG/DL TRIGLYCERIDES (test code = 2232) 137 MG/DL HDL CHOLESTEROL (test code = 2220) 30 MG/DL CALC LDL CHOL (test code = 2237) 71 MG/DL RISK RATIO LDL/HDL (test code = 2.37 RATIO 2238) LIPID [id number] 00:00:00 Test Item Value Reference Range Interpretation Comments CHOLESTEROL (test code = 2210) 123 MG/DL TRIGLYCERIDES (test code = 2232) 137 MG/DL HDL CHOLESTEROL (test code = 2220) 30 MG/DL CALC LDL CHOL (test code = 2237) 71 MG/DL RISK RATIO LDL/HDL (test code = 2.37 RATIO 2238) INTACT [id number] 00:00:00 Test Item Value Reference Range Interpretation Comments INTACT PTH (test code = 5005) 143 PG/ML INTACT [id number] 00:00:00 Test Item Value Reference Range Interpretation Comments INTACT PTH (test code = 5005) 143 PG/ML INTACT [id number] 00:00:00 Test Item Value Reference Range Interpretation Comments INTACT PTH (test code = 5005) 143 PG/ML IONIZED CALCIUM, [id number] 00:00:00 Test Item Value Reference Range Interpretation Comments CALCIUM, IONIZED (test code = 6.01 MG/DL 54763) IONIZED CALCIUM, [id number] 00:00:00 Test Item Value Reference Range Interpretation Comments CALCIUM, IONIZED (test code = 6.01 MG/DL 42972) [id number] 00:00:00 Test Item Value Reference Range Interpretation Comments LITHIUM (test code = 2039) 0.54 MEQ/L [id number] 00:00:00 Test Item Value Reference Range Interpretation Comments LITHIUM (test code = 2039) 0.54 MEQ/L [id number] 00:00:00 Test Item Value Reference Range Interpretation Comments LITHIUM (test code = 203) 0.54 MEQ/L [id number] 00:00:00 Test Item Value Reference Range Interpretation Comments TSH, THIRD GENERATION (test code 3.840 UIU/ML = 2821) [id number] 00:00:00 Test Item Value Reference Range Interpretation Comments TSH, THIRD GENERATION (test code 3.840 UIU/ML = 2821) [id number] 00:00:00 Test Item Value Reference Range Interpretation Comments TSH, THIRD GENERATION (test code 3.840 UIU/ML = 2821) COMPREHENSIVE METABOLIC [id number] 00:00:00 Test Item Value Reference Range Interpretation Comments GLUCOSE (test code = 2217) 90 MG/DL BUN (test code = 2208) 13 MG/DL CREATININE (test code = 2214) 0.74 MG/DL eGFR (2020 CKD-EPI) (test code 97 ML/MIN/1.73 = 81555) CALC BUN/CREAT (test code = 18 RATIO [...] code = 2219) 38 U/L COMPREHENSIVE METABOLIC [id number] 00:00:00 Test Item Value Reference Range Interpretation Comments GLUCOSE (test code = 2217) 90 MG/DL BUN (test code = 2208) 13 MG/DL CREATININE (test code = 2214) 0.74 MG/DL eGFR (2020 CKD-EPI) (test code 97 ML/MIN/1.73 = 73540) CALC BUN/CREAT (test code = 18 RATIO [...] (test code = 2219) 38 U/L LIPID [id number] 00:00:00 Test Item Value Reference Range Interpretation Comments CHOLESTEROL (test code = 2210) 123 MG/DL TRIGLYCERIDES (test code = 2232) 137 MG/DL HDL CHOLESTEROL (test code = 2220) 30 MG/DL CALC LDL CHOL (test code = 2237) 71 MG/DL RISK RATIO LDL/HDL (test code = 2.37 RATIO 2238) LIPID [id number] 00:00:00 Test Item Value Reference Range Interpretation Comments CHOLESTEROL (test code = 2210) 123 MG/DL TRIGLYCERIDES (test code = 2232) 137 MG/DL HDL CHOLESTEROL (test code = 2220) 30 MG/DL CALC LDL CHOL (test code = 2237) 71 MG/DL RISK RATIO LDL/HDL (test code = 2.37 RATIO 2238) INTACT [id number] 00:00:00 Test Item Value Reference Range Interpretation Comments INTACT PTH (test code = 5005) 143 PG/ML INTACT [id number] 00:00:00 Test Item Value Reference Range Interpretation Comments INTACT PTH (test code = 5005) 143 PG/ML INTACT [id number] 00:00:00 Test Item Value Reference Range Interpretation Comments INTACT PTH (test code = 5005) 143 PG/ML IONIZED CALCIUM, [id number] 00:00:00 Test Item Value Reference Range Interpretation Comments CALCIUM, IONIZED (test code = 6.01 MG/DL 39043) IONIZED CALCIUM, [id number] 00:00:00 Test Item Value Reference Range Interpretation Comments CALCIUM, IONIZED (test code = 6.01 MG/DL 78091) [id number] 00:00:00 Test Item Value Reference Range Interpretation Comments LITHIUM (test code = 2039) 0.54 MEQ/L [id number] 00:00:00 Test Item Value Reference Range Interpretation Comments LITHIUM (test code = 2039) 0.54 MEQ/L [id number] 00:00:00 Test Item Value Reference Range Interpretation Comments LITHIUM (test code = 2039) 0.54 MEQ/L [id number] 00:00:00 Test Item Value Reference Range Interpretation Comments TSH, THIRD GENERATION (test code 3.840 UIU/ML = 2821) [id number] 00:00:00 Test Item Value Reference Range Interpretation Comments TSH, THIRD GENERATION (test code 3.840 UIU/ML = 2821) [id number] 00:00:00 Test Item Value Reference Range Interpretation Comments TSH, THIRD GENERATION (test code 3.840 UIU/ML = 2821) COMPREHENSIVE METABOLIC [id number] 00:00:00 Test Item Value Reference Range Interpretation Comments GLUCOSE (test code = 2217) 90 MG/DL BUN (test code = 2208) 13 MG/DL CREATININE (test code = 2214) 0.74 MG/DL eGFR (2020 CKD-EPI) (test code 97 ML/MIN/1.73 = 48331) CALC BUN/CREAT (test code = 18 RATIO [...] code = 2219) 38 U/L COMPREHENSIVE METABOLIC [id number] 00:00:00 Test Item Value Reference Range Interpretation Comments GLUCOSE (test code = 2217) 90 MG/DL BUN (test code = 2208) 13 MG/DL CREATININE (test code = 2214) 0.74 MG/DL eGFR (2020 CKD-EPI) (test code 97 ML/MIN/1.73 = 14075) CALC BUN/CREAT (test code = 18 RATIO [...] (test code = 2219) 38 U/L LIPID [id number] 00:00:00 Test Item Value Reference Range Interpretation Comments CHOLESTEROL (test code = 2210) 123 MG/DL TRIGLYCERIDES (test code = 2232) 137 MG/DL HDL CHOLESTEROL (test code = 2220) 30 MG/DL CALC LDL CHOL (test code = 2237) 71 MG/DL RISK RATIO LDL/HDL (test code = 2.37 RATIO 2238) LIPID [id number] 00:00:00 Test Item Value Reference Range Interpretation Comments CHOLESTEROL (test code = 2210) 123 MG/DL TRIGLYCERIDES (test code = 2232) 137 MG/DL HDL CHOLESTEROL (test code = 2220) 30 MG/DL CALC LDL CHOL (test code = 2237) 71 MG/DL RISK RATIO LDL/HDL (test code = 2.37 RATIO 2238) INTACT [id number] 00:00:00 Test Item Value Reference Range Interpretation Comments INTACT PTH (test code = 5005) 143 PG/ML INTACT [id number] 00:00:00 Test Item Value Reference Range Interpretation Comments INTACT PTH (test code = 5005) 143 PG/ML INTACT [id number] 00:00:00 Test Item Value Reference Range Interpretation Comments INTACT PTH (test code = 5005) 143 PG/ML IONIZED CALCIUM, [id number] 00:00:00 Test Item Value Reference Range Interpretation Comments CALCIUM, IONIZED (test code = 6.01 MG/DL 03566) IONIZED CALCIUM, [id number] 00:00:00 Test Item Value Reference Range Interpretation Comments CALCIUM, IONIZED (test code = 6.01 MG/DL 00110) [id number] 00:00:00 Test Item Value Reference Range Interpretation Comments LITHIUM (test code = 2039) 0.54 MEQ/L [id number] 00:00:00 Test Item Value Reference Range Interpretation Comments LITHIUM (test code = 2039) 0.54 MEQ/L [id number] 00:00:00 Test Item Value Reference Range Interpretation Comments LITHIUM (test code = 2039) 0.54 MEQ/L [id number] 00:00:00 Test Item Value Reference Range Interpretation Comments TSH, THIRD GENERATION (test code 3.840 UIU/ML = 2821) [id number] 00:00:00 Test Item Value Reference Range Interpretation Comments TSH, THIRD GENERATION (test code 3.840 UIU/ML = 2821) [id number] 00:00:00 Test Item Value Reference Range Interpretation Comments TSH, THIRD GENERATION (test code 3.840 UIU/ML = 2821) COMPREHENSIVE METABOLIC [id number] 00:00:00 Test Item Value Reference Range Interpretation Comments GLUCOSE (test code = 2217) 90 MG/DL BUN (test code = 2208) 13 MG/DL CREATININE (test code = 2214) 0.74 MG/DL eGFR (2020 CKD-EPI) (test code 97 ML/MIN/1.73 = 89860) CALC BUN/CREAT (test code = 18 RATIO [...] code = 2219) 38 U/L COMPREHENSIVE METABOLIC [id number] 00:00:00 Test Item Value Reference Range Interpretation Comments GLUCOSE (test code = 2217) 90 MG/DL BUN (test code = 2208) 13 MG/DL CREATININE (test code = 2214) 0.74 MG/DL eGFR (2020 CKD-EPI) (test code 97 ML/MIN/1.73 = 36855) CALC BUN/CREAT (test code = 18 RATIO [...] (test code = 2219) 38 U/L LIPID [id number] 00:00:00 Test Item Value Reference Range Interpretation Comments CHOLESTEROL (test code = 2210) 123 MG/DL TRIGLYCERIDES (test code = 2232) 137 MG/DL HDL CHOLESTEROL (test code = 2220) 30 MG/DL CALC LDL CHOL (test code = 2237) 71 MG/DL RISK RATIO LDL/HDL (test code = 2.37 RATIO 2238) LIPID [id number] 00:00:00 Test Item Value Reference Range Interpretation Comments CHOLESTEROL (test code = 2210) 123 MG/DL TRIGLYCERIDES (test code = 2232) 137 MG/DL HDL CHOLESTEROL (test code = 2220) 30 MG/DL CALC LDL CHOL (test code = 2237) 71 MG/DL RISK RATIO LDL/HDL (test code = 2.37 RATIO 2238) INTACT [id number] 00:00:00 Test Item Value Reference Range Interpretation Comments INTACT PTH (test code = 5005) 143 PG/ML INTACT [id number] 00:00:00 Test Item Value Reference Range Interpretation Comments INTACT PTH (test code = 5005) 143 PG/ML INTACT [id number] 00:00:00 Test Item Value Reference Range Interpretation Comments INTACT PTH (test code = 5005) 143 PG/ML IONIZED CALCIUM, [id number] 00:00:00 Test Item Value Reference Range Interpretation Comments CALCIUM, IONIZED (test code = 6.01 MG/DL 95126) IONIZED CALCIUM, [id number] 00:00:00 Test Item Value Reference Range Interpretation Comments CALCIUM, IONIZED (test code = 6.01 MG/DL 41425) [id number] 00:00:00 Test Item Value Reference Range Interpretation Comments LITHIUM (test code = 2039) 0.54 MEQ/L [id number] 00:00:00 Test Item Value Reference Range Interpretation Comments LITHIUM (test code = 2039) 0.54 MEQ/L [id number] 00:00:00 Test Item Value Reference Range Interpretation Comments LITHIUM (test code = 2039) 0.54 MEQ/L [id number] 00:00:00 Test Item Value Reference Range Interpretation Comments TSH, THIRD GENERATION (test code 3.840 UIU/ML = 2821) [id number] 00:00:00 Test Item Value Reference Range Interpretation Comments TSH, THIRD GENERATION (test code 3.840 UIU/ML = 2821) [id number] 00:00:00 Test Item Value Reference Range Interpretation Comments TSH, THIRD GENERATION (test code 3.840 UIU/ML = 2821) COMPREHENSIVE METABOLIC [id number] 00:00:00 Test Item Value Reference Range Interpretation Comments GLUCOSE (test code = 2217) 90 MG/DL BUN (test code = 2208) 13 MG/DL CREATININE (test code = 2214) 0.74 MG/DL eGFR (2020 CKD-EPI) (test code 97 ML/MIN/1.73 = 52889) CALC BUN/CREAT (test code = 18 RATIO [...] code = 2219) 38 U/L COMPREHENSIVE METABOLIC [id number] 00:00:00 Test Item Value Reference Range Interpretation Comments GLUCOSE (test code = 2217) 90 MG/DL BUN (test code = 2208) 13 MG/DL CREATININE (test code = 2214) 0.74 MG/DL eGFR (2020 CKD-EPI) (test code 97 ML/MIN/1.73 = 27953) CALC BUN/CREAT (test code = 18 RATIO [...] (test code = 2219) 38 U/L LIPID [id number] 00:00:00 Test Item Value Reference Range Interpretation Comments CHOLESTEROL (test code = 2210) 123 MG/DL TRIGLYCERIDES (test code = 2232) 137 MG/DL HDL CHOLESTEROL (test code = 2220) 30 MG/DL CALC LDL CHOL (test code = 2237) 71 MG/DL RISK RATIO LDL/HDL (test code = 2.37 RATIO 2238) LIPID [id number] 00:00:00 Test Item Value Reference Range Interpretation Comments CHOLESTEROL (test code = 2210) 123 MG/DL TRIGLYCERIDES (test code = 2232) 137 MG/DL HDL CHOLESTEROL (test code = 2220) 30 MG/DL CALC LDL CHOL (test code = 2237) 71 MG/DL RISK RATIO LDL/HDL (test code = 2.37 RATIO 2238) INTACT [id number] 00:00:00 Test Item Value Reference Range Interpretation Comments INTACT PTH (test code = 5005) 143 PG/ML INTACT [id number] 00:00:00 Test Item Value Reference Range Interpretation Comments INTACT PTH (test code = 5005) 143 PG/ML INTACT [id number] 00:00:00 Test Item Value Reference Range Interpretation Comments INTACT PTH (test code = 5005) 143 PG/ML [id number] 00:00:00 Test Item Value Reference Range Interpretation Comments TSH, THIRD GENERATION (test code 3.840 UIU/ML = 2821) IONIZED CALCIUM, [id number] 00:00:00 Test Item Value Reference Range Interpretation Comments CALCIUM, IONIZED (test code = 6.01 MG/DL 88228) IONIZED CALCIUM, [id number] 00:00:00 Test Item Value Reference Range Interpretation Comments CALCIUM, IONIZED (test code = 6.01 MG/DL 89785) [id number] 00:00:00 Test Item Value Reference Range Interpretation Comments LITHIUM (test code = 2039) 0.54 MEQ/L [id number] 00:00:00 Test Item Value Reference Range Interpretation Comments LITHIUM (test code = 2039) 0.54 MEQ/L [id number] 00:00:00 Test Item Value Reference Range Interpretation Comments LITHIUM (test code = 2039) 0.54 MEQ/L [id number] 00:00:00 Test Item Value Reference Range Interpretation Comments TSH, THIRD GENERATION (test code 3.840 UIU/ML = 2821) [id number] 00:00:00 Test Item Value Reference Range Interpretation Comments TSH, THIRD GENERATION (test code 3.840 UIU/ML = 2821) COMPREHENSIVE METABOLIC [id number] 00:00:00 Test Item Value Reference Range Interpretation Comments GLUCOSE (test code = 2217) 90 MG/DL BUN (test code = 2208) 13 MG/DL CREATININE (test code = 2214) 0.74 MG/DL eGFR (2020 CKD-EPI) (test code 97 ML/MIN/1.73 = 76427) CALC BUN/CREAT (test code = 18 RATIO [...] code = 2219) 38 U/L COMPREHENSIVE METABOLIC [id number] 00:00:00 Test Item Value Reference Range Interpretation Comments GLUCOSE (test code = 2217) 90 MG/DL BUN (test code = 2208) 13 MG/DL CREATININE (test code = 2214) 0.74 MG/DL eGFR (2020 CKD-EPI) (test code 97 ML/MIN/1.73 = 64170) CALC BUN/CREAT (test code = 18 RATIO [...] (test code = 2219) 38 U/L LIPID [id number] 00:00:00 Test Item Value Reference Range Interpretation Comments CHOLESTEROL (test code = 2210) 123 MG/DL TRIGLYCERIDES (test code = 2232) 137 MG/DL HDL CHOLESTEROL (test code = 2220) 30 MG/DL CALC LDL CHOL (test code = 2237) 71 MG/DL RISK RATIO LDL/HDL (test code = 2.37 RATIO 2238) LIPID [id number] 00:00:00 Test Item Value Reference Range Interpretation Comments CHOLESTEROL (test code = 2210) 123 MG/DL TRIGLYCERIDES (test code = 2232) 137 MG/DL HDL CHOLESTEROL (test code = 2220) 30 MG/DL CALC LDL CHOL (test code = 2237) 71 MG/DL RISK RATIO LDL/HDL (test code = 2.37 RATIO 2238) INTACT [id number] 00:00:00 Test Item Value Reference Range Interpretation Comments INTACT PTH (test code = 5005) 143 PG/ML INTACT [id number] 00:00:00 Test Item Value Reference Range Interpretation Comments INTACT PTH (test code = 5005) 143 PG/ML INTACT [id number] 00:00:00 Test Item Value Reference Range Interpretation Comments INTACT PTH (test code = 5005) 143 PG/ML IONIZED CALCIUM, [id number] 00:00:00 Test Item Value Reference Range Interpretation Comments CALCIUM, IONIZED (test code = 6.01 MG/DL 22164) IONIZED CALCIUM, [id number] 00:00:00 Test Item Value Reference Range Interpretation Comments CALCIUM, IONIZED (test code = 6.01 MG/DL 56584) [id number] 00:00:00 Test Item Value Reference Range Interpretation Comments LITHIUM (test code = 2039) 0.54 MEQ/L [id number] 00:00:00 Test Item Value Reference Range Interpretation Comments LITHIUM (test code = 2039) 0.54 MEQ/L [id number] 00:00:00 Test Item Value Reference Range Interpretation Comments LITHIUM (test code = 203) 0.54 MEQ/L [id number] 00:00:00 Test Item Value Reference Range Interpretation Comments TSH, THIRD GENERATION (test code 3.840 UIU/ML = 2821) [id number] 00:00:00 Test Item Value Reference Range Interpretation Comments TSH, THIRD GENERATION (test code 3.840 UIU/ML = 2821) [id number] 00:00:00 Test Item Value Reference Range Interpretation Comments TSH, THIRD GENERATION (test code 3.840 UIU/ML = 2821) COMPREHENSIVE METABOLIC [id number] 00:00:00 Test Item Value Reference Range Interpretation Comments GLUCOSE (test code = 2217) 90 MG/DL BUN (test code = 2208) 13 MG/DL CREATININE (test code = 2214) 0.74 MG/DL eGFR (2020 CKD-EPI) (test code 97 ML/MIN/1.73 = 08888) CALC BUN/CREAT (test code = 18 RATIO [...] code = 2219) 38 U/L COMPREHENSIVE METABOLIC [id number] 00:00:00 Test Item Value Reference Range Interpretation Comments GLUCOSE (test code = 2217) 90 MG/DL BUN (test code = 2208) 13 MG/DL CREATININE (test code = 2214) 0.74 MG/DL eGFR (2020 CKD-EPI) (test code 97 ML/MIN/1.73 = 65563) CALC BUN/CREAT (test code = 18 RATIO [...] (test code = 2219) 38 U/L LIPID [id number] 00:00:00 Test Item Value Reference Range Interpretation Comments CHOLESTEROL (test code = 2210) 123 MG/DL TRIGLYCERIDES (test code = 2232) 137 MG/DL HDL CHOLESTEROL (test code = 2220) 30 MG/DL CALC LDL CHOL (test code = 2237) 71 MG/DL RISK RATIO LDL/HDL (test code = 2.37 RATIO 2238) LIPID [id number] 00:00:00 Test Item Value Reference Range Interpretation Comments CHOLESTEROL (test code = 2210) 123 MG/DL TRIGLYCERIDES (test code = 2232) 137 MG/DL HDL CHOLESTEROL (test code = 2220) 30 MG/DL CALC LDL CHOL (test code = 2237) 71 MG/DL RISK RATIO LDL/HDL (test code = 2.37 RATIO 2238) INTACT [id number] 00:00:00 Test Item Value Reference Range Interpretation Comments INTACT PTH (test code = 5005) 143 PG/ML INTACT [id number] 00:00:00 Test Item Value Reference Range Interpretation Comments INTACT PTH (test code = 5005) 143 PG/ML INTACT [id number] 00:00:00 Test Item Value Reference Range Interpretation Comments INTACT PTH (test code = 5005) 143 PG/ML IONIZED CALCIUM, [id number] 00:00:00 Test Item Value Reference Range Interpretation Comments CALCIUM, IONIZED (test code = 6.01 MG/DL 24488) IONIZED CALCIUM, [id number] 00:00:00 Test Item Value Reference Range Interpretation Comments CALCIUM, IONIZED (test code = 6.01 MG/DL 08120) [id number] 00:00:00 Test Item Value Reference Range Interpretation Comments LITHIUM (test code = 2039) 0.54 MEQ/L [id number] 00:00:00 Test Item Value Reference Range Interpretation Comments LITHIUM (test code = 2039) 0.54 MEQ/L [id number] 00:00:00 Test Item Value Reference Range Interpretation Comments LITHIUM (test code = 2039) 0.54 MEQ/L [id number] 00:00:00 Test Item Value Reference Range Interpretation Comments TSH, THIRD GENERATION (test code 3.840 UIU/ML = 2821) [id number] 00:00:00 Test Item Value Reference Range Interpretation Comments TSH, THIRD GENERATION (test code 3.840 UIU/ML = 2821) [id number] 00:00:00 Test Item Value Reference Range Interpretation Comments TSH, THIRD GENERATION (test code 3.840 UIU/ML = 2821) COMPREHENSIVE METABOLIC [id number] 00:00:00 Test Item Value Reference Range Interpretation Comments GLUCOSE (test code = 2217) 90 MG/DL BUN (test code = 2208) 13 MG/DL CREATININE (test code = 2214) 0.74 MG/DL eGFR (2020 CKD-EPI) (test code 97 ML/MIN/1.73 = 67928) CALC BUN/CREAT (test code = 18 RATIO [...] code = 2219) 38 U/L COMPREHENSIVE METABOLIC [id number] 00:00:00 Test Item Value Reference Range Interpretation Comments GLUCOSE (test code = 2217) 90 MG/DL BUN (test code = 2208) 13 MG/DL CREATININE (test code = 2214) 0.74 MG/DL eGFR (2020 CKD-EPI) (test code 97 ML/MIN/1.73 = 16068) CALC BUN/CREAT (test code = 18 RATIO [...] (test code = 2219) 38 U/L LIPID [id number] 00:00:00 Test Item Value Reference Range Interpretation Comments CHOLESTEROL (test code = 2210) 123 MG/DL TRIGLYCERIDES (test code = 2232) 137 MG/DL HDL CHOLESTEROL (test code = 2220) 30 MG/DL CALC LDL CHOL (test code = 2237) 71 MG/DL RISK RATIO LDL/HDL (test code = 2.37 RATIO 2238) LIPID [id number] 00:00:00 Test Item Value Reference Range Interpretation Comments CHOLESTEROL (test code = 2210) 123 MG/DL TRIGLYCERIDES (test code = 2232) 137 MG/DL HDL CHOLESTEROL (test code = 2220) 30 MG/DL CALC LDL CHOL (test code = 2237) 71 MG/DL RISK RATIO LDL/HDL (test code = 2.37 RATIO 2238) IONIZED CALCIUM, [id number] 00:00:00 Test Item Value Reference Range Interpretation Comments CALCIUM, IONIZED (test code = 6.08 MG/DL 85071) IONIZED CALCIUM, [id number] 00:00:00 Test Item Value Reference Range Interpretation Comments CALCIUM, IONIZED (test code = 6.08 MG/DL 15401) IONIZED CALCIUM, [id number] 00:00:00 Test Item Value Reference Range Interpretation Comments CALCIUM, IONIZED (test code = 6.08 MG/DL 17546) IONIZED CALCIUM, [id number] 00:00:00 Test Item Value Reference Range Interpretation Comments CALCIUM, IONIZED (test code = 6.08 MG/DL 71990) IONIZED CALCIUM, [id number] 00:00:00 Test Item Value Reference Range Interpretation Comments CALCIUM, IONIZED (test code = 6.08 MG/DL 41237) IONIZED CALCIUM, [id number] 00:00:00 Test Item Value Reference Range Interpretation Comments CALCIUM, IONIZED (test code = 6.08 MG/DL 38206) IONIZED CALCIUM, [id number] 00:00:00 Test Item Value Reference Range Interpretation Comments CALCIUM, IONIZED (test code = 6.08 MG/DL 09693) IONIZED CALCIUM, [id number] 00:00:00 Test Item Value Reference Range Interpretation Comments CALCIUM, IONIZED (test code = 6.08 MG/DL 92954) IONIZED CALCIUM, [id number] 00:00:00 Test Item Value Reference Range Interpretation Comments CALCIUM, IONIZED (test code = 6.08 MG/DL 02453) IONIZED CALCIUM, [id number] 00:00:00 Test Item Value Reference Range Interpretation Comments CALCIUM, IONIZED (test code = 6.08 MG/DL 48514) IONIZED CALCIUM, [id number] 00:00:00 Test Item Value Reference Range Interpretation Comments CALCIUM, IONIZED (test code = 6.08 MG/DL 63910) IONIZED CALCIUM, [id number] 00:00:00 Test Item Value Reference Range Interpretation Comments CALCIUM, IONIZED (test code = 6.08 MG/DL 68825) IONIZED CALCIUM, [id number] 00:00:00 Test Item Value Reference Range Interpretation Comments CALCIUM, IONIZED (test code = 6.08 MG/DL 91170) IONIZED CALCIUM, [id number] 00:00:00 Test Item Value Reference Range Interpretation Comments CALCIUM, IONIZED (test code = 6.08 MG/DL 39540) IONIZED CALCIUM, [id number] 00:00:00 Test Item Value Reference Range Interpretation Comments CALCIUM, IONIZED (test code = 6.08 MG/DL 38687) IONIZED CALCIUM, [id number] 00:00:00 Test Item Value Reference Range Interpretation Comments CALCIUM, IONIZED (test code = 6.08 MG/DL 82739) IONIZED CALCIUM, [id number] 00:00:00 Test Item Value Reference Range Interpretation Comments CALCIUM, IONIZED (test code = 6.08 MG/DL 38913) IONIZED CALCIUM, [id number] 00:00:00 Test Item Value Reference Range Interpretation Comments CALCIUM, IONIZED (test code = 6.08 MG/DL 08272) IONIZED CALCIUM, [id number] 00:00:00 Test Item Value Reference Range Interpretation Comments CALCIUM, IONIZED (test code = 6.08 MG/DL 94222) IONIZED CALCIUM, [id number] 00:00:00 Test Item Value Reference Range Interpretation Comments CALCIUM, IONIZED (test code = 6.08 MG/DL 02900) IONIZED CALCIUM, [id number] 00:00:00 Test Item Value Reference Range Interpretation Comments CALCIUM, IONIZED (test code = 6.08 MG/DL 99573) IONIZED CALCIUM, [id number] 00:00:00 Test Item Value Reference Range Interpretation Comments CALCIUM, IONIZED (test code = 6.08 MG/DL 73232) IONIZED CALCIUM, [id number] 00:00:00 Test Item Value Reference Range Interpretation Comments CALCIUM, IONIZED (test code = 6.08 MG/DL 02774) IONIZED CALCIUM, [id number] 00:00:00 Test Item Value Reference Range Interpretation Comments CALCIUM, IONIZED (test code = 6.08 MG/DL 96417) IONIZED CALCIUM, [id number] 00:00:00 Test Item Value Reference Range Interpretation Comments CALCIUM, IONIZED (test code = 6.08 MG/DL 06220) SARS-CoV-2 (COVID-19), RT-[id number] 10:52:51 Test Item Value Reference Interpretation Comments Range SARS-CoV-2 POSITIVE SEE NOTE A SARS-CoV-2 RNA INTERPRETATION DETECTEDPosit alek results (test code = 69786) are geovanna cative of the presence of [...] code = NOT SPECIFIED Note: [place] [address]) Marii Chip Margot l-Time RT-PCR. The exp [...] provided by met hod given in report:[email or web address]:// [email or web address] s/client-c ommunications/ Alternatively, see downloadable PD F fact sheet at:[email or web address]://[email or web address] [employer] m/PKKJX-01-HX-P CR UNLESS OTHERWISE INDIC ATED, ALL TESTING PERFORM ED ATCLINICAL PATH OLOGY [facility]. [address] [place] [id number] LABORATORY DIRE CTOR: Elena HUTSON. CLIA NUMBER [id number] CAP ACCREDITATION N O. [id number] SARS-CoV-2 (COVID-19) by RT-PCR (HIGH RISK)2021-04-12 00:00:00 Test Item Value Reference Range Interpretation Comments SARS-CoV-2 INTERPRETATION (test POSITIVE code = 04816) SOURCE (test code = 29273) NOT SPECIFIED SARS-CoV-2 (COVID-19) by RT-PCR (HIGH RISK)2021-04-12 00:00:00 Test Item Value Reference Range Interpretation Comments SARS-CoV-2 INTERPRETATION (test POSITIVE code = 15962) SOURCE (test code = 65970) NOT SPECIFIED SARS-CoV-2 (COVID-19) by RT-PCR (HIGH RISK)2021-04-12 00:00:00 Test Item Value Reference Range Interpretation Comments SARS-CoV-2 INTERPRETATION (test POSITIVE code = 26798) SOURCE (test code = 85414) NOT SPECIFIED SARS-CoV-2 (COVID-19) by RT-PCR (HIGH RISK)2021-04-12 00:00:00 Test Item Value Reference Range Interpretation Comments SARS-CoV-2 INTERPRETATION (test POSITIVE code = 87599) SOURCE (test code = 88596) NOT SPECIFIED SARS-CoV-2 (COVID-19) by RT-PCR (HIGH RISK)2021-04-12 00:00:00 Test Item Value Reference Range Interpretation Comments SARS-CoV-2 INTERPRETATION (test POSITIVE code = 27441) SOURCE (test code = 52452) NOT SPECIFIED SARS-CoV-2 (COVID-19) by RT-PCR (HIGH RISK)2021-04-12 00:00:00 Test Item Value Reference Range Interpretation Comments SARS-CoV-2 INTERPRETATION (test POSITIVE code = 04763) SOURCE (test code = 47922) NOT SPECIFIED SARS-CoV-2 (COVID-19) by RT-PCR (HIGH RISK)2021-04-12 00:00:00 Test Item Value Reference Range Interpretation Comments SARS-CoV-2 INTERPRETATION (test POSITIVE code = 06915) SOURCE (test code = 82346) NOT SPECIFIED SARS-CoV-2 (COVID-19) by RT-PCR (HIGH RISK)2021-04-12 00:00:00 Test Item Value Reference Range Interpretation Comments SARS-CoV-2 INTERPRETATION (test POSITIVE code = 53761) SOURCE (test code = 06676) NOT SPECIFIED SARS-CoV-2 (COVID-19) by RT-PCR (HIGH RISK)2021-04-12 00:00:00 Test Item Value Reference Range Interpretation Comments SARS-CoV-2 INTERPRETATION (test POSITIVE code = 43572) SOURCE (test code = 56170) NOT SPECIFIED SARS-CoV-2 (COVID-19) by RT-PCR (HIGH RISK)2021-04-12 00:00:00 Test Item Value Reference Range Interpretation Comments SARS-CoV-2 INTERPRETATION (test POSITIVE code = 34170) SOURCE (test code = 98482) NOT SPECIFIED SARS-CoV-2 (COVID-19) by RT-PCR (HIGH RISK)2021-04-12 00:00:00 Test Item Value Reference Range Interpretation Comments SARS-CoV-2 INTERPRETATION (test POSITIVE code = 83145) SOURCE (test code = 59435) NOT SPECIFIED SARS-CoV-2 (COVID-19) by RT-PCR (HIGH RISK)2021-04-12 00:00:00 Test Item Value Reference Range Interpretation Comments SARS-CoV-2 INTERPRETATION (test POSITIVE code = 61592) SOURCE (test code = 11979) NOT SPECIFIED SARS-CoV-2 (COVID-19) by RT-PCR (HIGH RISK)2021-04-12 00:00:00 Test Item Value Reference Range Interpretation Comments SARS-CoV-2 INTERPRETATION (test POSITIVE code = 51143) SOURCE (test code = 86132) NOT SPECIFIED SARS-CoV-2 (COVID-19) by RT-PCR (HIGH RISK)2021-04-12 00:00:00 Test Item Value Reference Range Interpretation Comments SARS-CoV-2 INTERPRETATION (test POSITIVE code = 68954) SOURCE (test code = 92090) NOT SPECIFIED SARS-CoV-2 (COVID-19) by RT-PCR (HIGH RISK)2021-04-12 00:00:00 Test Item Value Reference Range Interpretation Comments SARS-CoV-2 INTERPRETATION (test POSITIVE code = 19804) SOURCE (test code = 80439) NOT SPECIFIED SARS-CoV-2 (COVID-19) by RT-PCR (HIGH RISK)2021-04-12 00:00:00 Test Item Value Reference Range Interpretation Comments SARS-CoV-2 INTERPRETATION (test POSITIVE code = 94846) SOURCE (test code = 91244) NOT SPECIFIED SARS-CoV-2 (COVID-19) by RT-PCR (HIGH RISK)2021-04-12 00:00:00 Test Item Value Reference Range Interpretation Comments SARS-CoV-2 INTERPRETATION (test POSITIVE code = 82598) SOURCE (test code = 03376) NOT SPECIFIED SARS-CoV-2 (COVID-19) by RT-PCR (HIGH RISK)2021-04-12 00:00:00 Test Item Value Reference Range Interpretation Comments SARS-CoV-2 INTERPRETATION (test POSITIVE code = 45758) SOURCE (test code = 49513) NOT SPECIFIED SARS-CoV-2 (COVID-19) by RT-PCR (HIGH RISK)2021-04-12 00:00:00 Test Item Value Reference Range Interpretation Comments SARS-CoV-2 INTERPRETATION (test POSITIVE code = 36840) SOURCE (test code = 77570) NOT SPECIFIED SARS-CoV-2 (COVID-19) by RT-PCR (HIGH RISK)2021-04-12 00:00:00 Test Item Value Reference Range Interpretation Comments SARS-CoV-2 INTERPRETATION (test POSITIVE code = 70952) SOURCE (test code = 99306) NOT SPECIFIED SARS-CoV-2 (COVID-19) by RT-PCR (HIGH RISK)2021-04-12 00:00:00 Test Item Value Reference Range Interpretation Comments SARS-CoV-2 INTERPRETATION (test POSITIVE code = 22608) SOURCE (test code = 60202) NOT SPECIFIED SARS-CoV-2 (COVID-19) by RT-PCR (HIGH RISK)2021-04-12 00:00:00 Test Item Value Reference Range Interpretation Comments SARS-CoV-2 INTERPRETATION (test POSITIVE code = 78122) SOURCE (test code = 16413) NOT SPECIFIED SARS-CoV-2 (COVID-19) by RT-PCR (HIGH RISK)2021-04-12 00:00:00 Test Item Value Reference Range Interpretation Comments SARS-CoV-2 INTERPRETATION (test POSITIVE code = 41828) SOURCE (test code = 73009) NOT SPECIFIED SARS-CoV-2 (COVID-19) by RT-PCR (HIGH RISK)2021-04-12 00:00:00 Test Item Value Reference Range Interpretation Comments SARS-CoV-2 INTERPRETATION (test POSITIVE code = 47095) SOURCE (test code = 75060) NOT SPECIFIED SARS-CoV-2 (COVID-19) by RT-PCR (HIGH RISK)2021-04-12 00:00:00 Test Item Value Reference Range Interpretation Comments SARS-CoV-2 INTERPRETATION (test POSITIVE code = 34948) SOURCE (test code = 31484) NOT SPECIFIED VITAMIN D, 25 [id number] 00:00:00 Test Item Value Reference Range Interpretation Comments VITAMIN D, 25 OH (test code = 4958) 20 NG/ML VITAMIN D, 25 [id number] 00:00:00 Test Item Value Reference Range Interpretation Comments VITAMIN D, 25 OH (test code = 4958) 20 NG/ML [id number] 00:00:00 Test Item Value Reference Range Interpretation Comments LITHIUM (test code = 203) 0.39 MEQ/L [id number] 00:00:00 Test Item Value Reference Range Interpretation Comments LITHIUM (test code = 203) 0.39 MEQ/L [id number] 00:00:00 Test Item Value Reference Range Interpretation Comments LITHIUM (test code = 2038) 0.39 MEQ/L COMPREHENSIVE METABOLIC [id number] 00:00:00 Test Item Value Reference Range Interpretation Comments GLUCOSE (test code = 7) 109 MG/DL BUN (test code = 2208) 14 MG/DL CREATININE (test code = 2214) 0.64 MG/DL eGFR (2020 CKD-EPI) (test 106 ML/MIN/1.73 code = 37696) CALC BUN/CREAT (test code = 22 RATIO 223) SODIUM (test code = 2231) 141 MEQ/L [...] code = 2219) 43 U/L COMPREHENSIVE METABOLIC [id number] 00:00:00 Test Item Value Reference Range Interpretation Comments GLUCOSE (test code = 2217) 109 MG/DL BUN (test code = 2208) 14 MG/DL CREATININE (test code = 2214) 0.64 MG/DL eGFR (2020 CKD-EPI) (test 106 ML/MIN/1.73 code = 77023) CALC BUN/CREAT (test code = 22 RATIO [...] code = 2219) 43 U/L COMPREHENSIVE METABOLIC [id number] 00:00:00 Test Item Value Reference Range Interpretation Comments GLUCOSE (test code = 2217) 109 MG/DL BUN (test code = 2208) 14 MG/DL CREATININE (test code = 2214) 0.64 MG/DL eGFR (2020 CKD-EPI) (test 106 ML/MIN/1.73 code = 86767) CALC BUN/CREAT (test code = 22 RATIO [...] (test code = 2219) 43 U/L LIPID [id number] 00:00:00 Test Item Value Reference Range Interpretation Comments CHOLESTEROL (test code = 2210) 173 MG/DL TRIGLYCERIDES (test code = 2232) 248 MG/DL HDL CHOLESTEROL (test code = 2220) 33 MG/DL CALC LDL CHOL (test code = 2237) 105 MG/DL RISK RATIO LDL/HDL (test code = 3.18 RATIO 2238) LIPID [id number] 00:00:00 Test Item Value Reference Range Interpretation Comments CHOLESTEROL (test code = 2210) 173 MG/DL TRIGLYCERIDES (test code = 2232) 248 MG/DL HDL CHOLESTEROL (test code = 2220) 33 MG/DL CALC LDL CHOL (test code = 2237) 105 MG/DL RISK RATIO LDL/HDL (test code = 3.18 RATIO 2238) LIPID [id number] 00:00:00 Test Item Value Reference Range Interpretation Comments CHOLESTEROL (test code = 2210) 173 MG/DL TRIGLYCERIDES (test code = 2232) 248 MG/DL HDL CHOLESTEROL (test code = 2220) 33 MG/DL CALC LDL CHOL (test code = 2237) 105 MG/DL RISK RATIO LDL/HDL (test code = 3.18 RATIO 2238) [id number] 00:00:00 Test Item Value Reference Range Interpretation Comments TSH, THIRD GENERATION (test code 1.470 UIU/ML = 2821) [id number] 00:00:00 Test Item Value Reference Range Interpretation Comments TSH, THIRD GENERATION (test code 1.470 UIU/ML = 2821) [id number] 00:00:00 Test Item Value Reference Range Interpretation Comments TSH, THIRD GENERATION (test code 1.470 UIU/ML = 2821) VITAMIN D, 25 [id number] 00:00:00 Test Item Value Reference Range Interpretation Comments VITAMIN D, 25 OH (test code = 4958) 20 NG/ML VITAMIN D, 25 [id number] 00:00:00 Test Item Value Reference Range Interpretation Comments VITAMIN D, 25 OH (test code = 4958) 20 NG/ML [id number] 00:00:00 Test Item Value Reference Range Interpretation Comments LITHIUM (test code = 2039) 0.39 MEQ/L [id number] 00:00:00 Test Item Value Reference Range Interpretation Comments LITHIUM (test code = 2039) 0.39 MEQ/L [id number] 00:00:00 Test Item Value Reference Range Interpretation Comments LITHIUM (test code = 2039) 0.39 MEQ/L [id number] 00:00:00 Test Item Value Reference Range Interpretation Comments TSH, THIRD GENERATION (test code 1.470 UIU/ML = 2821) [id number] 00:00:00 Test Item Value Reference Range Interpretation Comments TSH, THIRD GENERATION (test code 1.470 UIU/ML = 2821) VITAMIN D, 25 [id number] 00:00:00 Test Item Value Reference Range Interpretation Comments VITAMIN D, 25 OH (test code = 4958) 20 NG/ML [id number] 00:00:00 Test Item Value Reference Range Interpretation Comments LITHIUM (test code = 2038) 0.39 MEQ/L [id number] 00:00:00 Test Item Value Reference Range Interpretation Comments LITHIUM (test code = 2038) 0.39 MEQ/L COMPREHENSIVE METABOLIC [id number] 00:00:00 Test Item Value Reference Range Interpretation Comments GLUCOSE (test code = 2216) 109 MG/DL BUN (test code = 2207) 14 MG/DL CREATININE (test code = 2214) 0.64 MG/DL eGFR (2020 CKD-EPI) (test 106 ML/MIN/1.73 code = 31739) CALC BUN/CREAT (test code = 22 RATIO [...] code = 2219) 43 U/L COMPREHENSIVE METABOLIC [id number] 00:00:00 Test Item Value Reference Range Interpretation Comments GLUCOSE (test code = 2217) 109 MG/DL BUN (test code = 2208) 14 MG/DL CREATININE (test code = 2214) 0.64 MG/DL eGFR (2020 CKD-EPI) (test 106 ML/MIN/1.73 code = 52373) CALC BUN/CREAT (test code = 22 RATIO [...] (test code = 2219) 43 U/L LIPID [id number] 00:00:00 Test Item Value Reference Range Interpretation Comments CHOLESTEROL (test code = 2210) 173 MG/DL TRIGLYCERIDES (test code = 2232) 248 MG/DL HDL CHOLESTEROL (test code = 2220) 33 MG/DL CALC LDL CHOL (test code = 2237) 105 MG/DL RISK RATIO LDL/HDL (test code = 3.18 RATIO 2238) LIPID [id number] 00:00:00 Test Item Value Reference Range Interpretation Comments CHOLESTEROL (test code = 2210) 173 MG/DL TRIGLYCERIDES (test code = 2232) 248 MG/DL HDL CHOLESTEROL (test code = 2220) 33 MG/DL CALC LDL CHOL (test code = 2237) 105 MG/DL RISK RATIO LDL/HDL (test code = 3.18 RATIO 2238) [id number] 00:00:00 Test Item Value Reference Range Interpretation Comments TSH, THIRD GENERATION (test code 1.470 UIU/ML = 2821) [id number] 00:00:00 Test Item Value Reference Range Interpretation Comments TSH, THIRD GENERATION (test code 1.470 UIU/ML = 2821) [id number] 00:00:00 Test Item Value Reference Range Interpretation Comments TSH, THIRD GENERATION (test code 1.470 UIU/ML = 2821) VITAMIN D, 25 [id number] 00:00:00 Test Item Value Reference Range Interpretation Comments VITAMIN D, 25 OH (test code = 4958) 20 NG/ML VITAMIN D, 25 [id number] 00:00:00 Test Item Value Reference Range Interpretation Comments VITAMIN D, 25 OH (test code = 4958) 20 NG/ML [id number] 00:00:00 Test Item Value Reference Range Interpretation Comments LITHIUM (test code = 2038) 0.39 MEQ/L [id number] 00:00:00 Test Item Value Reference Range Interpretation Comments LITHIUM (test code = 2038) 0.39 MEQ/L [id number] 00:00:00 Test Item Value Reference Range Interpretation Comments LITHIUM (test code = 2038) 0.39 MEQ/L COMPREHENSIVE METABOLIC [id number] 00:00:00 Test Item Value Reference Range Interpretation Comments GLUCOSE (test code = 2216) 109 MG/DL BUN (test code = 8) 14 MG/DL CREATININE (test code = 2214) 0.64 MG/DL eGFR (2020 CKD-EPI) (test 106 ML/MIN/1.73 code = 67827) CALC BUN/CREAT (test code = 22 RATIO [...] code = 2219) 43 U/L COMPREHENSIVE METABOLIC [id number] 00:00:00 Test Item Value Reference Range Interpretation Comments GLUCOSE (test code = 2217) 109 MG/DL BUN (test code = 2208) 14 MG/DL CREATININE (test code = 2214) 0.64 MG/DL eGFR (2020 CKD-EPI) (test 106 ML/MIN/1.73 code = 98808) CALC BUN/CREAT (test code = 22 RATIO [...] (test code = 2219) 43 U/L LIPID [id number] 00:00:00 Test Item Value Reference Range Interpretation Comments CHOLESTEROL (test code = 2210) 173 MG/DL TRIGLYCERIDES (test code = 2232) 248 MG/DL HDL CHOLESTEROL (test code = 2220) 33 MG/DL CALC LDL CHOL (test code = 2237) 105 MG/DL RISK RATIO LDL/HDL (test code = 3.18 RATIO 2238) LIPID [id number] 00:00:00 Test Item Value Reference Range Interpretation Comments CHOLESTEROL (test code = 2210) 173 MG/DL TRIGLYCERIDES (test code = 2232) 248 MG/DL HDL CHOLESTEROL (test code = 2220) 33 MG/DL CALC LDL CHOL (test code = 2237) 105 MG/DL RISK RATIO LDL/HDL (test code = 3.18 RATIO 2238) [id number] 00:00:00 Test Item Value Reference Range Interpretation Comments TSH, THIRD GENERATION (test code 1.470 UIU/ML = 2821) [id number] 00:00:00 Test Item Value Reference Range Interpretation Comments TSH, THIRD GENERATION (test code 1.470 UIU/ML = 2821) [id number] 00:00:00 Test Item Value Reference Range Interpretation Comments TSH, THIRD GENERATION (test code 1.470 UIU/ML = 2821) VITAMIN D, 25 [id number] 00:00:00 Test Item Value Reference Range Interpretation Comments VITAMIN D, 25 OH (test code = 4958) 20 NG/ML VITAMIN D, 25 [id number] 00:00:00 Test Item Value Reference Range Interpretation Comments VITAMIN D, 25 OH (test code = 4958) 20 NG/ML [id number] 00:00:00 Test Item Value Reference Range Interpretation Comments LITHIUM (test code = 2038) 0.39 MEQ/L [id number] 00:00:00 Test Item Value Reference Range Interpretation Comments LITHIUM (test code = 2038) 0.39 MEQ/L [id number] 00:00:00 Test Item Value Reference Range Interpretation Comments LITHIUM (test code = 2038) 0.39 MEQ/L COMPREHENSIVE METABOLIC [id number] 00:00:00 Test Item Value Reference Range Interpretation Comments GLUCOSE (test code = 2216) 109 MG/DL BUN (test code = 8) 14 MG/DL CREATININE (test code = 2214) 0.64 MG/DL eGFR (2020 CKD-EPI) (test 106 ML/MIN/1.73 code = 69270) CALC BUN/CREAT (test code = 22 RATIO [...] code = 2219) 43 U/L COMPREHENSIVE METABOLIC [id number] 00:00:00 Test Item Value Reference Range Interpretation Comments GLUCOSE (test code = 7) 109 MG/DL BUN (test code = 2208) 14 MG/DL CREATININE (test code = 2214) 0.64 MG/DL eGFR (2020 CKD-EPI) (test 106 ML/MIN/1.73 code = 40275) CALC BUN/CREAT (test code = 22 RATIO [...] (test code = 2219) 43 U/L LIPID [id number] 00:00:00 Test Item Value Reference Range Interpretation Comments CHOLESTEROL (test code = 2210) 173 MG/DL TRIGLYCERIDES (test code = 2232) 248 MG/DL HDL CHOLESTEROL (test code = 2220) 33 MG/DL CALC LDL CHOL (test code = 2237) 105 MG/DL RISK RATIO LDL/HDL (test code = 3.18 RATIO 2238) LIPID [id number] 00:00:00 Test Item Value Reference Range Interpretation Comments CHOLESTEROL (test code = 2210) 173 MG/DL TRIGLYCERIDES (test code = 2232) 248 MG/DL HDL CHOLESTEROL (test code = 2220) 33 MG/DL CALC LDL CHOL (test code = 2237) 105 MG/DL RISK RATIO LDL/HDL (test code = 3.18 RATIO 2238) [id number] 00:00:00 Test Item Value Reference Range Interpretation Comments TSH, THIRD GENERATION (test code 1.470 UIU/ML = 2821) [id number] 00:00:00 Test Item Value Reference Range Interpretation Comments TSH, THIRD GENERATION (test code 1.470 UIU/ML = 2821) [id number] 00:00:00 Test Item Value Reference Range Interpretation Comments TSH, THIRD GENERATION (test code 1.470 UIU/ML = 2821) VITAMIN D, 25 [id number] 00:00:00 Test Item Value Reference Range Interpretation Comments VITAMIN D, 25 OH (test code = 4958) 20 NG/ML VITAMIN D, 25 [id number] 00:00:00 Test Item Value Reference Range Interpretation Comments VITAMIN D, 25 OH (test code = 4958) 20 NG/ML [id number] 00:00:00 Test Item Value Reference Range Interpretation Comments LITHIUM (test code = 2038) 0.39 MEQ/L [id number] 00:00:00 Test Item Value Reference Range Interpretation Comments LITHIUM (test code = 2038) 0.39 MEQ/L [id number] 00:00:00 Test Item Value Reference Range Interpretation Comments LITHIUM (test code = 2038) 0.39 MEQ/L COMPREHENSIVE METABOLIC [id number] 00:00:00 Test Item Value Reference Range Interpretation Comments GLUCOSE (test code = 2216) 109 MG/DL BUN (test code = 2208) 14 MG/DL CREATININE (test code = 2214) 0.64 MG/DL eGFR (2020 CKD-EPI) (test 106 ML/MIN/1.73 code = 45748) CALC BUN/CREAT (test code = 22 RATIO [...] code = 2219) 43 U/L COMPREHENSIVE METABOLIC [id number] 00:00:00 Test Item Value Reference Range Interpretation Comments GLUCOSE (test code = 2217) 109 MG/DL BUN (test code = 2208) 14 MG/DL CREATININE (test code = 2214) 0.64 MG/DL eGFR (2020 CKD-EPI) (test 106 ML/MIN/1.73 code = 99299) CALC BUN/CREAT (test code = 22 RATIO [...] (test code = 2219) 43 U/L LIPID [id number] 00:00:00 Test Item Value Reference Range Interpretation Comments CHOLESTEROL (test code = 2210) 173 MG/DL TRIGLYCERIDES (test code = 2232) 248 MG/DL HDL CHOLESTEROL (test code = 2220) 33 MG/DL CALC LDL CHOL (test code = 2237) 105 MG/DL RISK RATIO LDL/HDL (test code = 3.18 RATIO 2238) LIPID [id number] 00:00:00 Test Item Value Reference Range Interpretation Comments CHOLESTEROL (test code = 2210) 173 MG/DL TRIGLYCERIDES (test code = 2232) 248 MG/DL HDL CHOLESTEROL (test code = 2220) 33 MG/DL CALC LDL CHOL (test code = 2237) 105 MG/DL RISK RATIO LDL/HDL (test code = 3.18 RATIO 2238) [id number] 00:00:00 Test Item Value Reference Range Interpretation Comments TSH, THIRD GENERATION (test code 1.470 UIU/ML = 2821) [id number] 00:00:00 Test Item Value Reference Range Interpretation Comments TSH, THIRD GENERATION (test code 1.470 UIU/ML = 2821) [id number] 00:00:00 Test Item Value Reference Range Interpretation Comments TSH, THIRD GENERATION (test code 1.470 UIU/ML = 2821) VITAMIN D, 25 [id number] 00:00:00 Test Item Value Reference Range Interpretation Comments VITAMIN D, 25 OH (test code = 4958) 20 NG/ML VITAMIN D, 25 [id number] 00:00:00 Test Item Value Reference Range Interpretation Comments VITAMIN D, 25 OH (test code = 4958) 20 NG/ML [id number] 00:00:00 Test Item Value Reference Range Interpretation Comments LITHIUM (test code = 2038) 0.39 MEQ/L [id number] 00:00:00 Test Item Value Reference Range Interpretation Comments LITHIUM (test code = 2038) 0.39 MEQ/L [id number] 00:00:00 Test Item Value Reference Range Interpretation Comments LITHIUM (test code = 2038) 0.39 MEQ/L COMPREHENSIVE METABOLIC [id number] 00:00:00 Test Item Value Reference Range Interpretation Comments GLUCOSE (test code = 2217) 109 MG/DL BUN (test code = 2208) 14 MG/DL CREATININE (test code = 2214) 0.64 MG/DL eGFR (2020 CKD-EPI) (test 106 ML/MIN/1.73 code = 00303) CALC BUN/CREAT (test code = 22 RATIO [...] code = 2219) 43 U/L COMPREHENSIVE METABOLIC [id number] 00:00:00 Test Item Value Reference Range Interpretation Comments GLUCOSE (test code = 2217) 109 MG/DL BUN (test code = 2208) 14 MG/DL CREATININE (test code = 2214) 0.64 MG/DL eGFR (2020 CKD-EPI) (test 106 ML/MIN/1.73 code = 55116) CALC BUN/CREAT (test code = 22 RATIO [...] (test code = 2219) 43 U/L LIPID [id number] 00:00:00 Test Item Value Reference Range Interpretation Comments CHOLESTEROL (test code = 2210) 173 MG/DL TRIGLYCERIDES (test code = 2232) 248 MG/DL HDL CHOLESTEROL (test code = 2220) 33 MG/DL CALC LDL CHOL (test code = 2237) 105 MG/DL RISK RATIO LDL/HDL (test code = 3.18 RATIO 2238) LIPID [id number] 00:00:00 Test Item Value Reference Range Interpretation Comments CHOLESTEROL (test code = 2210) 173 MG/DL TRIGLYCERIDES (test code = 2232) 248 MG/DL HDL CHOLESTEROL (test code = 2220) 33 MG/DL CALC LDL CHOL (test code = 2237) 105 MG/DL RISK RATIO LDL/HDL (test code = 3.18 RATIO 2238) [id number] 00:00:00 Test Item Value Reference Range Interpretation Comments TSH, THIRD GENERATION (test code 1.470 UIU/ML = 2821) [id number] 00:00:00 Test Item Value Reference Range Interpretation Comments TSH, THIRD GENERATION (test code 1.470 UIU/ML = 2821) [id number] 00:00:00 Test Item Value Reference Range Interpretation Comments TSH, THIRD GENERATION (test code 1.470 UIU/ML = 2821) VITAMIN D, 25 [id number] 00:00:00 Test Item Value Reference Range Interpretation Comments VITAMIN D, 25 OH (test code = 4958) 20 NG/ML VITAMIN D, 25 [id number] 00:00:00 Test Item Value Reference Range Interpretation Comments VITAMIN D, 25 OH (test code = 4958) 20 NG/ML [id number] 00:00:00 Test Item Value Reference Range Interpretation Comments LITHIUM (test code = 2038) 0.39 MEQ/L [id number] 00:00:00 Test Item Value Reference Range Interpretation Comments LITHIUM (test code = 2038) 0.39 MEQ/L [id number] 00:00:00 Test Item Value Reference Range Interpretation Comments LITHIUM (test code = 2038) 0.39 MEQ/L COMPREHENSIVE METABOLIC [id number] 00:00:00 Test Item Value Reference Range Interpretation Comments GLUCOSE (test code = 2217) 109 MG/DL BUN (test code = 2208) 14 MG/DL CREATININE (test code = 2214) 0.64 MG/DL eGFR (2020 CKD-EPI) (test 106 ML/MIN/1.73 code = 81267) CALC BUN/CREAT (test code = 22 RATIO [...] code = 2219) 43 U/L COMPREHENSIVE METABOLIC [id number] 00:00:00 Test Item Value Reference Range Interpretation Comments GLUCOSE (test code = 2217) 109 MG/DL BUN (test code = 2208) 14 MG/DL CREATININE (test code = 2214) 0.64 MG/DL eGFR (2020 CKD-EPI) (test 106 ML/MIN/1.73 code = 23985) CALC BUN/CREAT (test code = 22 RATIO [...] (test code = 2219) 43 U/L LIPID [id number] 00:00:00 Test Item Value Reference Range Interpretation Comments CHOLESTEROL (test code = 2210) 173 MG/DL TRIGLYCERIDES (test code = 2232) 248 MG/DL HDL CHOLESTEROL (test code = 2220) 33 MG/DL CALC LDL CHOL (test code = 2237) 105 MG/DL RISK RATIO LDL/HDL (test code = 3.18 RATIO 2238) LIPID [id number] 00:00:00 Test Item Value Reference Range Interpretation Comments CHOLESTEROL (test code = 2210) 173 MG/DL TRIGLYCERIDES (test code = 2232) 248 MG/DL HDL CHOLESTEROL (test code = 2220) 33 MG/DL CALC LDL CHOL (test code = 2237) 105 MG/DL RISK RATIO LDL/HDL (test code = 3.18 RATIO 2238) [id number] 00:00:00 Test Item Value Reference Range Interpretation Comments TSH, THIRD GENERATION (test code 1.470 UIU/ML = 2821) [id number] 00:00:00 Test Item Value Reference Range Interpretation Comments TSH, THIRD GENERATION (test code 1.470 UIU/ML = 2821) [id number] 00:00:00 Test Item Value Reference Range Interpretation Comments TSH, THIRD GENERATION (test code 1.470 UIU/ML = 2821) VITAMIN D, 25 [id number] 00:00:00 Test Item Value Reference Range Interpretation Comments VITAMIN D, 25 OH (test code = 4958) 20 NG/ML VITAMIN D, 25 [id number] 00:00:00 Test Item Value Reference Range Interpretation Comments VITAMIN D, 25 OH (test code = 4958) 20 NG/ML [id number] 00:00:00 Test Item Value Reference Range Interpretation Comments LITHIUM (test code = 2038) 0.39 MEQ/L [id number] 00:00:00 Test Item Value Reference Range Interpretation Comments LITHIUM (test code = 2038) 0.39 MEQ/L [id number] 00:00:00 Test Item Value Reference Range Interpretation Comments LITHIUM (test code = 2038) 0.39 MEQ/L COMPREHENSIVE METABOLIC [id number] 00:00:00 Test Item Value Reference Range Interpretation Comments GLUCOSE (test code = 2217) 109 MG/DL BUN (test code = 2208) 14 MG/DL CREATININE (test code = 2214) 0.64 MG/DL eGFR (2020 CKD-EPI) (test 106 ML/MIN/1.73 code = 44679) CALC BUN/CREAT (test code = 22 RATIO [...] code = 2219) 43 U/L COMPREHENSIVE METABOLIC [id number] 00:00:00 Test Item Value Reference Range Interpretation Comments GLUCOSE (test code = 2217) 109 MG/DL BUN (test code = 2208) 14 MG/DL CREATININE (test code = 2214) 0.64 MG/DL eGFR (2020 CKD-EPI) (test 106 ML/MIN/1.73 code = 53528) CALC BUN/CREAT (test code = 22 RATIO [...] (test code = 2219) 43 U/L LIPID [id number] 00:00:00 Test Item Value Reference Range Interpretation Comments CHOLESTEROL (test code = 2210) 173 MG/DL TRIGLYCERIDES (test code = 2232) 248 MG/DL HDL CHOLESTEROL (test code = 2220) 33 MG/DL CALC LDL CHOL (test code = 2237) 105 MG/DL RISK RATIO LDL/HDL (test code = 3.18 RATIO 2238) LIPID [id number] 00:00:00 Test Item Value Reference Range Interpretation Comments CHOLESTEROL (test code = 2210) 173 MG/DL TRIGLYCERIDES (test code = 2232) 248 MG/DL HDL CHOLESTEROL (test code = 2220) 33 MG/DL CALC LDL CHOL (test code = 2237) 105 MG/DL RISK RATIO LDL/HDL (test code = 3.18 RATIO 2238) [id number] 00:00:00 Test Item Value Reference Range Interpretation Comments TSH, THIRD GENERATION (test code 1.470 UIU/ML = 2821) [id number] 00:00:00 Test Item Value Reference Range Interpretation Comments TSH, THIRD GENERATION (test code 1.470 UIU/ML = 2821) [id number] 00:00:00 Test Item Value Reference Range Interpretation Comments TSH, THIRD GENERATION (test code 1.470 UIU/ML = 2821) VITAMIN D, 25 [id number] 00:00:00 Test Item Value Reference Range Interpretation Comments VITAMIN D, 25 OH (test code = 4958) 20 NG/ML VITAMIN D, 25 [id number] 00:00:00 Test Item Value Reference Range Interpretation Comments VITAMIN D, 25 OH (test code = 4958) 20 NG/ML [id number] 00:00:00 Test Item Value Reference Range Interpretation Comments LITHIUM (test code = 2038) 0.39 MEQ/L [id number] 00:00:00 Test Item Value Reference Range Interpretation Comments LITHIUM (test code = 2038) 0.39 MEQ/L [id number] 00:00:00 Test Item Value Reference Range Interpretation Comments LITHIUM (test code = 2038) 0.39 MEQ/L COMPREHENSIVE METABOLIC [id number] 00:00:00 Test Item Value Reference Range Interpretation Comments GLUCOSE (test code = 2216) 109 MG/DL BUN (test code = 2208) 14 MG/DL CREATININE (test code = 2214) 0.64 MG/DL eGFR (2020 CKD-EPI) (test 106 ML/MIN/1.73 code = 08628) CALC BUN/CREAT (test code = 22 RATIO [...] code = 2219) 43 U/L COMPREHENSIVE METABOLIC [id number] 00:00:00 Test Item Value Reference Range Interpretation Comments GLUCOSE (test code = 2217) 109 MG/DL BUN (test code = 2208) 14 MG/DL CREATININE (test code = 2214) 0.64 MG/DL eGFR (2020 CKD-EPI) (test 106 ML/MIN/1.73 code = 15095) CALC BUN/CREAT (test code = 22 RATIO [...] (test code = 2219) 43 U/L LIPID [id number] 00:00:00 Test Item Value Reference Range Interpretation Comments CHOLESTEROL (test code = 2210) 173 MG/DL TRIGLYCERIDES (test code = 2232) 248 MG/DL HDL CHOLESTEROL (test code = 2220) 33 MG/DL CALC LDL CHOL (test code = 2237) 105 MG/DL RISK RATIO LDL/HDL (test code = 3.18 RATIO 2238) LIPID [id number] 00:00:00 Test Item Value Reference Range Interpretation Comments CHOLESTEROL (test code = 2210) 173 MG/DL TRIGLYCERIDES (test code = 2232) 248 MG/DL HDL CHOLESTEROL (test code = 2220) 33 MG/DL CALC LDL CHOL (test code = 2237) 105 MG/DL RISK RATIO LDL/HDL (test code = 3.18 RATIO 2238) [id number] 00:00:00 Test Item Value Reference Range Interpretation Comments TSH, THIRD GENERATION (test code 1.470 UIU/ML = 2821) [id number] 00:00:00 Test Item Value Reference Range Interpretation Comments TSH, THIRD GENERATION (test code 1.470 UIU/ML = 2821) [id number] 00:00:00 Test Item Value Reference Range Interpretation Comments TSH, THIRD GENERATION (test code 1.470 UIU/ML = 2821) VITAMIN D, 25 [id number] 00:00:00 Test Item Value Reference Range Interpretation Comments VITAMIN D, 25 OH (test code = 4958) 20 NG/ML VITAMIN D, 25 [id number] 00:00:00 Test Item Value Reference Range Interpretation Comments VITAMIN D, 25 OH (test code = 4958) 20 NG/ML [id number] 00:00:00 Test Item Value Reference Range Interpretation Comments LITHIUM (test code = 2038) 0.39 MEQ/L [id number] 00:00:00 Test Item Value Reference Range Interpretation Comments LITHIUM (test code = 2038) 0.39 MEQ/L [id number] 00:00:00 Test Item Value Reference Range Interpretation Comments LITHIUM (test code = 2038) 0.39 MEQ/L COMPREHENSIVE METABOLIC [id number] 00:00:00 Test Item Value Reference Range Interpretation Comments GLUCOSE (test code = 7) 109 MG/DL BUN (test code = 8) 14 MG/DL CREATININE (test code = 2214) 0.64 MG/DL eGFR (2020 CKD-EPI) (test 106 ML/MIN/1.73 code = 92056) CALC BUN/CREAT (test code = 22 RATIO [...] code = 2219) 43 U/L COMPREHENSIVE METABOLIC [id number] 00:00:00 Test Item Value Reference Range Interpretation Comments GLUCOSE (test code = 2217) 109 MG/DL BUN (test code = 2208) 14 MG/DL CREATININE (test code = 2214) 0.64 MG/DL eGFR (2020 CKD-EPI) (test 106 ML/MIN/1.73 code = 66876) CALC BUN/CREAT (test code = 22 RATIO [...] (test code = 2219) 43 U/L LIPID [id number] 00:00:00 Test Item Value Reference Range Interpretation Comments CHOLESTEROL (test code = 2210) 173 MG/DL TRIGLYCERIDES (test code = 2232) 248 MG/DL HDL CHOLESTEROL (test code = 2220) 33 MG/DL CALC LDL CHOL (test code = 2237) 105 MG/DL RISK RATIO LDL/HDL (test code = 3.18 RATIO 2238) LIPID [id number] 00:00:00 Test Item Value Reference Range Interpretation Comments CHOLESTEROL (test code = 2210) 173 MG/DL TRIGLYCERIDES (test code = 2232) 248 MG/DL HDL CHOLESTEROL (test code = 2220) 33 MG/DL CALC LDL CHOL (test code = 2237) 105 MG/DL RISK RATIO LDL/HDL (test code = 3.18 RATIO 2238) [id number] 00:00:00 Test Item Value Reference Range Interpretation Comments TSH, THIRD GENERATION (test code 1.470 UIU/ML = 2821) [id number] 00:00:00 Test Item Value Reference Range Interpretation Comments TSH, THIRD GENERATION (test code 1.470 UIU/ML = 2821) [id number] 00:00:00 Test Item Value Reference Range Interpretation Comments TSH, THIRD GENERATION (test code 1.470 UIU/ML = 2821) VITAMIN D, 25 [id number] 00:00:00 Test Item Value Reference Range Interpretation Comments VITAMIN D, 25 OH (test code = 4958) 20 NG/ML VITAMIN D, 25 [id number] 00:00:00 Test Item Value Reference Range Interpretation Comments VITAMIN D, 25 OH (test code = 4958) 20 NG/ML [id number] 00:00:00 Test Item Value Reference Range Interpretation Comments LITHIUM (test code = 2038) 0.39 MEQ/L [id number] 00:00:00 Test Item Value Reference Range Interpretation Comments LITHIUM (test code = 2038) 0.39 MEQ/L [id number] 00:00:00 Test Item Value Reference Range Interpretation Comments LITHIUM (test code = 2038) 0.39 MEQ/L COMPREHENSIVE METABOLIC [id number] 00:00:00 Test Item Value Reference Range Interpretation Comments GLUCOSE (test code = 2217) 109 MG/DL BUN (test code = 2208) 14 MG/DL CREATININE (test code = 2214) 0.64 MG/DL eGFR (2020 CKD-EPI) (test 106 ML/MIN/1.73 code = 70570) CALC BUN/CREAT (test code = 22 RATIO [...] code = 2219) 43 U/L COMPREHENSIVE METABOLIC [id number] 00:00:00 Test Item Value Reference Range Interpretation Comments GLUCOSE (test code = 2217) 109 MG/DL BUN (test code = 2208) 14 MG/DL CREATININE (test code = 2214) 0.64 MG/DL eGFR (2020 CKD-EPI) (test 106 ML/MIN/1.73 code = 23067) CALC BUN/CREAT (test code = 22 RATIO [...] (test code = 2219) 43 U/L LIPID [id number] 00:00:00 Test Item Value Reference Range Interpretation Comments CHOLESTEROL (test code = 2210) 173 MG/DL TRIGLYCERIDES (test code = 2232) 248 MG/DL HDL CHOLESTEROL (test code = 2220) 33 MG/DL CALC LDL CHOL (test code = 2237) 105 MG/DL RISK RATIO LDL/HDL (test code = 3.18 RATIO 2238) LIPID [id number] 00:00:00 Test Item Value Reference Range Interpretation Comments CHOLESTEROL (test code = 2210) 173 MG/DL TRIGLYCERIDES (test code = 2232) 248 MG/DL HDL CHOLESTEROL (test code = 2220) 33 MG/DL CALC LDL CHOL (test code = 2237) 105 MG/DL RISK RATIO LDL/HDL (test code = 3.18 RATIO 2238) [id number] 00:00:00 Test Item Value Reference Range Interpretation Comments TSH, THIRD GENERATION (test code 1.470 UIU/ML = 2821) [id number] 00:00:00 Test Item Value Reference Range Interpretation Comments TSH, THIRD GENERATION (test code 1.470 UIU/ML = 2821) [id number] 00:00:00 Test Item Value Reference Range Interpretation Comments TSH, THIRD GENERATION (test code 1.470 UIU/ML = 2821) VITAMIN D, 25 [id number] 00:00:00 Test Item Value Reference Range Interpretation Comments VITAMIN D, 25 OH (test code = 4958) 20 NG/ML VITAMIN D, 25 [id number] 00:00:00 Test Item Value Reference Range Interpretation Comments VITAMIN D, 25 OH (test code = 4958) 20 NG/ML [id number] 00:00:00 Test Item Value Reference Range Interpretation Comments LITHIUM (test code = 203) 0.39 MEQ/L [id number] 00:00:00 Test Item Value Reference Range Interpretation Comments LITHIUM (test code = 2039) 0.39 MEQ/L [id number] 00:00:00 Test Item Value Reference Range Interpretation Comments LITHIUM (test code = 203) 0.39 MEQ/L COMPREHENSIVE METABOLIC [id number] 00:00:00 Test Item Value Reference Range Interpretation Comments GLUCOSE (test code = 2217) 109 MG/DL BUN (test code = 2208) 14 MG/DL CREATININE (test code = 2214) 0.64 MG/DL eGFR (2020 CKD-EPI) (test 106 ML/MIN/1.73 code = 38374) CALC BUN/CREAT (test code = 22 RATIO [...] code = 2219) 43 U/L COMPREHENSIVE METABOLIC [id number] 00:00:00 Test Item Value Reference Range Interpretation Comments GLUCOSE (test code = 2217) 109 MG/DL BUN (test code = 2208) 14 MG/DL CREATININE (test code = 2214) 0.64 MG/DL eGFR (2020 CKD-EPI) (test 106 ML/MIN/1.73 code = 38154) CALC BUN/CREAT (test code = 22 RATIO [...] (test code = 2219) 43 U/L LIPID [id number] 00:00:00 Test Item Value Reference Range Interpretation Comments CHOLESTEROL (test code = 2210) 173 MG/DL TRIGLYCERIDES (test code = 2232) 248 MG/DL HDL CHOLESTEROL (test code = 2220) 33 MG/DL CALC LDL CHOL (test code = 2237) 105 MG/DL RISK RATIO LDL/HDL (test code = 3.18 RATIO 2238) LIPID [id number] 00:00:00 Test Item Value Reference Range Interpretation Comments CHOLESTEROL (test code = 2210) 173 MG/DL TRIGLYCERIDES (test code = 2232) 248 MG/DL HDL CHOLESTEROL (test code = 2220) 33 MG/DL CALC LDL CHOL (test code = 2237) 105 MG/DL RISK RATIO LDL/HDL (test code = 3.18 RATIO 2238) [id number] 00:00:00 Test Item Value Reference Range Interpretation Comments TSH, THIRD GENERATION (test code 1.470 UIU/ML = 2821) [id number] 00:00:00 Test Item Value Reference Range Interpretation Comments TSH, THIRD GENERATION (test code 1.470 UIU/ML = 2821) [id number] 00:00:00 Test Item Value Reference Range Interpretation Comments TSH, THIRD GENERATION (test code 1.470 UIU/ML = 2821) VITAMIN D, 25 [id number] 00:00:00 Test Item Value Reference Range Interpretation Comments VITAMIN D, 25 OH (test code = 4958) 20 NG/ML VITAMIN D, 25 [id number] 00:00:00 Test Item Value Reference Range Interpretation Comments VITAMIN D, 25 OH (test code = 4958) 20 NG/ML [id number] 00:00:00 Test Item Value Reference Range Interpretation Comments LITHIUM (test code = 2038) 0.38 MEQ/L [id number] 00:00:00 Test Item Value Reference Range Interpretation Comments LITHIUM (test code = 2038) 0.38 MEQ/L [id number] 00:00:00 Test Item Value Reference Range Interpretation Comments LITHIUM (test code = 2038) 0.38 MEQ/L THYROID II PROFILE (T3U, T4, T7, TSH)2020-10-05 00:00:00 Test Item Value Reference Range Interpretation Comments T-UPTAKE (test code = 2817) 30.2 % THYROX. BIND. CAPAC. (test code 1.1 = 32137) T4 (THYROXINE) (test code = 4.4 UG/DL 2819) CORRECTED T4 (FTI) (test code = 4.0 UG/DL 2820) TSH, THIRD GENERATION (test code 4.570 UIU/ML = 2821) THYROID II PROFILE (T3U, T4, T7, TSH)2020-10-05 00:00:00 Test Item Value Reference Range Interpretation Comments T-UPTAKE (test code = 2817) 30.2 % THYROX. BIND. CAPAC. (test code 1.1 = 50836) T4 (THYROXINE) (test code = 4.4 UG/DL 2819) CORRECTED T4 (FTI) (test code = 4.0 UG/DL 2820) TSH, THIRD GENERATION (test code 4.570 UIU/ML = 2821) CBC W/AUTO [id number] 00:00:00 Test Item Value Reference Range Interpretation [...] NUCLEATED RBCS (test code = 0.00 K/UL 33006) CBC W/AUTO [id number] 00:00:00 Test Item Value Reference Range Interpretation [...] NUCLEATED RBCS (test code = 0.00 K/UL 38291) CBC W/AUTO [id number] 00:00:00 Test Item Value Reference Range Interpretation [...] NUCLEATED RBCS (test code = 0.00 K/UL 57291) CBC W/AUTO [id number] 00:00:00 Test Item Value Reference Range Interpretation [...] NUCLEATED RBCS (test code = 0.00 K/UL 42937) CBC W/AUTO [id number] 00:00:00 Test Item Value Reference Range Interpretation [...] NUCLEATED RBCS (test code = 0.00 K/UL 70837) LIPID [id number] 00:00:00 Test Item Value Reference Range Interpretation Comments CHOLESTEROL (test code = 2210) 112 MG/DL TRIGLYCERIDES (test code = 2232) 140 MG/DL HDL CHOLESTEROL (test code = 2220) 34 MG/DL CALC LDL CHOL (test code = 2237) 56 MG/DL RISK RATIO LDL/HDL (test code = 1.65 RATIO 2238) LIPID [id number] 00:00:00 Test Item Value Reference Range Interpretation Comments CHOLESTEROL (test code = 2210) 112 MG/DL TRIGLYCERIDES (test code = 2232) 140 MG/DL HDL CHOLESTEROL (test code = 2220) 34 MG/DL CALC LDL CHOL (test code = 2237) 56 MG/DL RISK RATIO LDL/HDL (test code = 1.65 RATIO 2238) COMPREHENSIVE METABOLIC [id number] 00:00:00 Test Item Value Reference Range Interpretation Comments GLUCOSE (test code = 2217) 109 MG/DL BUN (test code = 2208) 11 MG/DL CREATININE (test code = 2214) 0.68 MG/DL eGFR AMER. (test code 116 ML/MIN/1.73 = 09789) eGFR NON- AMER. (test 100 ML/MIN/1.73 code = 00666) CALC BUN/CREAT (test code = 16 RATIO [...] code = 2219) 29 U/L COMPREHENSIVE METABOLIC [id number] 00:00:00 Test Item Value Reference Range Interpretation Comments GLUCOSE (test code = 2217) 109 MG/DL BUN (test code = 2208) 11 MG/DL CREATININE (test code = 2214) 0.68 MG/DL eGFR AMER. (test code 116 ML/MIN/1.73 = 72682) eGFR NON- AMER. (test 100 ML/MIN/1.73 code = 23993) CALC BUN/CREAT (test code = 16 RATIO [...] (test code = 2219) 29 U/L LIPID [id number] 00:00:00 Test Item Value Reference Range Interpretation Comments CHOLESTEROL (test code = 2210) 112 MG/DL TRIGLYCERIDES (test code = 2232) 140 MG/DL HDL CHOLESTEROL (test code = 2220) 34 MG/DL CALC LDL CHOL (test code = 2237) 56 MG/DL RISK RATIO LDL/HDL (test code = 1.65 RATIO 2238) VITAMIN D, 25 [id number] 00:00:00 Test Item Value Reference Range Interpretation Comments VITAMIN D, 25 OH (test code = 4958) 20 NG/ML VITAMIN D, 25 [id number] 00:00:00 Test Item Value Reference Range Interpretation Comments VITAMIN D, 25 OH (test code = 4958) 20 NG/ML COMPREHENSIVE METABOLIC [id number] 00:00:00 Test Item Value Reference Range Interpretation Comments GLUCOSE (test code = 2217) 109 MG/DL BUN (test code = 2208) 11 MG/DL CREATININE (test code = 2214) 0.68 MG/DL eGFR AMER. (test code 116 ML/MIN/1.73 = 36042) eGFR NON- AMER. (test 100 ML/MIN/1.73 code = 34944) CALC BUN/CREAT (test code = 16 RATIO [...] ALT (test code = 2219) 29 U/L [id number] 00:00:00 Test Item Value Reference Range Interpretation Comments LITHIUM (test code = 203) 0.38 MEQ/L [id number] 00:00:00 Test Item Value Reference Range Interpretation Comments LITHIUM (test code = 203) 0.38 MEQ/L [id number] 00:00:00 Test Item Value Reference Range Interpretation Comments LITHIUM (test code = 203) 0.38 MEQ/L THYROID II PROFILE (T3U, T4, T7, TSH)2020-10-05 00:00:00 Test Item Value Reference Range Interpretation Comments T-UPTAKE (test code = 2817) 30.2 % THYROX. BIND. CAPAC. (test code 1.1 = 50256) T4 (THYROXINE) (test code = 4.4 UG/DL 2819) CORRECTED T4 (FTI) (test code = 4.0 UG/DL 2820) TSH, THIRD GENERATION (test code 4.570 UIU/ML = 2821) THYROID II PROFILE (T3U, T4, T7, TSH)2020-10-05 00:00:00 Test Item Value Reference Range Interpretation Comments T-UPTAKE (test code = 2816) 30.2 % THYROX. BIND. CAPAC. (test code 1.1 = ) T4 (THYROXINE) (test code = 4.4 UG/DL 2818) CORRECTED T4 (FTI) (test code = 4.0 UG/DL 2820) TSH, THIRD GENERATION (test code 4.570 UIU/ML = 2821) VITAMIN D, 25 [id number] 00:00:00 Test Item Value Reference Range Interpretation Comments VITAMIN D, 25 OH (test code = 4958) 20 NG/ML [id number] 00:00:00 Test Item Value Reference Range Interpretation Comments LITHIUM (test code = 2038) 0.38 MEQ/L [id number] 00:00:00 Test Item Value Reference Range Interpretation Comments LITHIUM (test code = 2039) 0.38 MEQ/L THYROID II PROFILE (T3U, T4, T7, TSH)2020-10-05 00:00:00 Test Item Value Reference Range Interpretation Comments T-UPTAKE (test code = 2816) 30.2 % THYROX. BIND. CAPAC. (test code 1.1 = 64340) T4 (THYROXINE) (test code = 4.4 UG/DL 2818) CORRECTED T4 (FTI) (test code = 4.0 UG/DL 2820) TSH, THIRD GENERATION (test code 4.570 UIU/ML = 2821) CBC W/AUTO [id number] 00:00:00 Test Item Value Reference Range Interpretation [...] NUCLEATED RBCS (test code = 0.00 K/UL 83369) CBC W/AUTO [id number] 00:00:00 Test Item Value Reference Range Interpretation [...] NUCLEATED RBCS (test code = 0.00 K/UL 81262) CBC W/AUTO [id number] 00:00:00 Test Item Value Reference Range Interpretation [...] NUCLEATED RBCS (test code = 0.00 K/UL 74734) LIPID [id number] 00:00:00 Test Item Value Reference Range Interpretation Comments CHOLESTEROL (test code = 2210) 112 MG/DL TRIGLYCERIDES (test code = 2232) 140 MG/DL HDL CHOLESTEROL (test code = 2220) 34 MG/DL CALC LDL CHOL (test code = 2237) 56 MG/DL RISK RATIO LDL/HDL (test code = 1.65 RATIO 2238) LIPID [id number] 00:00:00 Test Item Value Reference Range Interpretation Comments CHOLESTEROL (test code = 2210) 112 MG/DL TRIGLYCERIDES (test code = 2232) 140 MG/DL HDL CHOLESTEROL (test code = 2220) 34 MG/DL CALC LDL CHOL (test code = 2237) 56 MG/DL RISK RATIO LDL/HDL (test code = 1.65 RATIO 2238) COMPREHENSIVE METABOLIC [id number] 00:00:00 Test Item Value Reference Range Interpretation Comments GLUCOSE (test code = 2217) 109 MG/DL BUN (test code = 2208) 11 MG/DL CREATININE (test code = 2214) 0.68 MG/DL eGFR AMER. (test code 116 ML/MIN/1.73 = 84092) eGFR NON- AMER. (test 100 ML/MIN/1.73 code = 92448) CALC BUN/CREAT (test code = 16 RATIO [...] code = 2219) 29 U/L COMPREHENSIVE METABOLIC [id number] 00:00:00 Test Item Value Reference Range Interpretation Comments GLUCOSE (test code = 2217) 109 MG/DL BUN (test code = 2208) 11 MG/DL CREATININE (test code = 2214) 0.68 MG/DL eGFR AMER. (test code 116 ML/MIN/1.73 = 07478) eGFR NON- AMER. (test 100 ML/MIN/1.73 code = 49071) CALC BUN/CREAT (test code = 16 RATIO [...] = 2218) 29 U/L VITAMIN D, 25 [id number] 00:00:00 Test Item Value Reference Range Interpretation Comments VITAMIN D, 25 OH (test code = 4958) 20 NG/ML VITAMIN D, 25 [id number] 00:00:00 Test Item Value Reference Range Interpretation Comments VITAMIN D, 25 OH (test code = 4958) 20 NG/ML [id number] 00:00:00 Test Item Value Reference Range Interpretation Comments LITHIUM (test code = 2038) 0.38 MEQ/L [id number] 00:00:00 Test Item Value Reference Range Interpretation Comments LITHIUM (test code = 2038) 0.38 MEQ/L [id number] 00:00:00 Test Item Value Reference Range Interpretation Comments LITHIUM (test code = 2038) 0.38 MEQ/L THYROID II PROFILE (T3U, T4, T7, TSH)2020-10-05 00:00:00 Test Item Value Reference Range Interpretation Comments T-UPTAKE (test code = 2817) 30.2 % THYROX. BIND. CAPAC. (test code 1.1 = 09942) T4 (THYROXINE) (test code = 4.4 UG/DL 2818) CORRECTED T4 (FTI) (test code = 4.0 UG/DL 2820) TSH, THIRD GENERATION (test code 4.570 UIU/ML = 2821) THYROID II PROFILE (T3U, T4, T7, TSH)2020-10-05 00:00:00 Test Item Value Reference Range Interpretation Comments T-UPTAKE (test code = 2817) 30.2 % THYROX. BIND. CAPAC. (test code 1.1 = 03597) T4 (THYROXINE) (test code = 4.4 UG/DL 2819) CORRECTED T4 (FTI) (test code = 4.0 UG/DL 2820) TSH, THIRD GENERATION (test code 4.570 UIU/ML = 2821) CBC W/AUTO [id number] 00:00:00 Test Item Value Reference Range Interpretation [...] NUCLEATED RBCS (test code = 0.00 K/UL 80895) CBC W/AUTO [id number] 00:00:00 Test Item Value Reference Range Interpretation [...] NUCLEATED RBCS (test code = 0.00 K/UL 00683) CBC W/AUTO [id number] 00:00:00 Test Item Value Reference Range Interpretation [...] NUCLEATED RBCS (test code = 0.00 K/UL 05250) LIPID [id number] 00:00:00 Test Item Value Reference Range Interpretation Comments CHOLESTEROL (test code = 2210) 112 MG/DL TRIGLYCERIDES (test code = 2232) 140 MG/DL HDL CHOLESTEROL (test code = 2220) 34 MG/DL CALC LDL CHOL (test code = 2237) 56 MG/DL RISK RATIO LDL/HDL (test code = 1.65 RATIO 2238) LIPID [id number] 00:00:00 Test Item Value Reference Range Interpretation Comments CHOLESTEROL (test code = 2210) 112 MG/DL TRIGLYCERIDES (test code = 2232) 140 MG/DL HDL CHOLESTEROL (test code = 2220) 34 MG/DL CALC LDL CHOL (test code = 2237) 56 MG/DL RISK RATIO LDL/HDL (test code = 1.65 RATIO 2238) COMPREHENSIVE METABOLIC [id number] 00:00:00 Test Item Value Reference Range Interpretation Comments GLUCOSE (test code = 2217) 109 MG/DL BUN (test code = 2208) 11 MG/DL CREATININE (test code = 2214) 0.68 MG/DL eGFR AMER. (test code 116 ML/MIN/1.73 = 89890) eGFR NON- AMER. (test 100 ML/MIN/1.73 code = 54670) CALC BUN/CREAT (test code = 16 RATIO [...] code = 2219) 29 U/L COMPREHENSIVE METABOLIC [id number] 00:00:00 Test Item Value Reference Range Interpretation Comments GLUCOSE (test code = 2217) 109 MG/DL BUN (test code = 2208) 11 MG/DL CREATININE (test code = 2214) 0.68 MG/DL eGFR AMER. (test code 116 ML/MIN/1.73 = 71077) eGFR NON- AMER. (test 100 ML/MIN/1.73 code = 23796) CALC BUN/CREAT (test code = 16 RATIO [...] = 2219) 29 U/L VITAMIN D, 25 [id number] 00:00:00 Test Item Value Reference Range Interpretation Comments VITAMIN D, 25 OH (test code = 4958) 20 NG/ML VITAMIN D, 25 [id number] 00:00:00 Test Item Value Reference Range Interpretation Comments VITAMIN D, 25 OH (test code = 4958) 20 NG/ML [id number] 00:00:00 Test Item Value Reference Range Interpretation Comments LITHIUM (test code = 203) 0.38 MEQ/L [id number] 00:00:00 Test Item Value Reference Range Interpretation Comments LITHIUM (test code = 2038) 0.38 MEQ/L [id number] 00:00:00 Test Item Value Reference Range Interpretation Comments LITHIUM (test code = 2038) 0.38 MEQ/L THYROID II PROFILE (T3U, T4, T7, TSH)2020-10-05 00:00:00 Test Item Value Reference Range Interpretation Comments T-UPTAKE (test code = 2816) 30.2 % THYROX. BIND. CAPAC. (test code 1.1 = 33595) T4 (THYROXINE) (test code = 4.4 UG/DL 2819) CORRECTED T4 (FTI) (test code = 4.0 UG/DL 2820) TSH, THIRD GENERATION (test code 4.570 UIU/ML = 2821) THYROID II PROFILE (T3U, T4, T7, TSH)2020-10-05 00:00:00 Test Item Value Reference Range Interpretation Comments T-UPTAKE (test code = 2816) 30.2 % THYROX. BIND. CAPAC. (test code 1.1 = 53459) T4 (THYROXINE) (test code = 4.4 UG/DL 281) CORRECTED T4 (FTI) (test code = 4.0 UG/DL 2820) TSH, THIRD GENERATION (test code 4.570 UIU/ML = 2821) CBC W/AUTO [id number] 00:00:00 Test Item Value Reference Range Interpretation [...] NUCLEATED RBCS (test code = 0.00 K/UL 82848) CBC W/AUTO [id number] 00:00:00 Test Item Value Reference Range Interpretation [...] NUCLEATED RBCS (test code = 0.00 K/UL 94555) CBC W/AUTO [id number] 00:00:00 Test Item Value Reference Range Interpretation [...] NUCLEATED RBCS (test code = 0.00 K/UL 84474) LIPID [id number] 00:00:00 Test Item Value Reference Range Interpretation Comments CHOLESTEROL (test code = 2210) 112 MG/DL TRIGLYCERIDES (test code = 2232) 140 MG/DL HDL CHOLESTEROL (test code = 2220) 34 MG/DL CALC LDL CHOL (test code = 2237) 56 MG/DL RISK RATIO LDL/HDL (test code = 1.65 RATIO 2238) LIPID [id number] 00:00:00 Test Item Value Reference Range Interpretation Comments CHOLESTEROL (test code = 2210) 112 MG/DL TRIGLYCERIDES (test code = 2232) 140 MG/DL HDL CHOLESTEROL (test code = 2220) 34 MG/DL CALC LDL CHOL (test code = 2237) 56 MG/DL RISK RATIO LDL/HDL (test code = 1.65 RATIO 2238) COMPREHENSIVE METABOLIC [id number] 00:00:00 Test Item Value Reference Range Interpretation Comments GLUCOSE (test code = 2217) 109 MG/DL BUN (test code = 2208) 11 MG/DL CREATININE (test code = 2214) 0.68 MG/DL eGFR AMER. (test code 116 ML/MIN/1.73 = 54320) eGFR NON- AMER. (test 100 ML/MIN/1.73 code = 31279) CALC BUN/CREAT (test code = 16 RATIO [...] code = 2219) 29 U/L COMPREHENSIVE METABOLIC [id number] 00:00:00 Test Item Value Reference Range Interpretation Comments GLUCOSE (test code = 2217) 109 MG/DL BUN (test code = 2208) 11 MG/DL CREATININE (test code = 2214) 0.68 MG/DL eGFR AMER. (test code 116 ML/MIN/1.73 = 83050) eGFR NON- AMER. (test 100 ML/MIN/1.73 code = 91978) CALC BUN/CREAT (test code = 16 RATIO [...] = 2219) 29 U/L VITAMIN D, 25 [id number] 00:00:00 Test Item Value Reference Range Interpretation Comments VITAMIN D, 25 OH (test code = 4958) 20 NG/ML VITAMIN D, 25 [id number] 00:00:00 Test Item Value Reference Range Interpretation Comments VITAMIN D, 25 OH (test code = 4958) 20 NG/ML [id number] 00:00:00 Test Item Value Reference Range Interpretation Comments LITHIUM (test code = 2038) 0.38 MEQ/L [id number] 00:00:00 Test Item Value Reference Range Interpretation Comments LITHIUM (test code = 2038) 0.38 MEQ/L [id number] 00:00:00 Test Item Value Reference Range Interpretation Comments LITHIUM (test code = 2038) 0.38 MEQ/L THYROID II PROFILE (T3U, T4, T7, TSH)2020-10-05 00:00:00 Test Item Value Reference Range Interpretation Comments T-UPTAKE (test code = 7) 30.2 % THYROX. BIND. CAPAC. (test code 1.1 = 79762) T4 (THYROXINE) (test code = 4.4 UG/DL 281) CORRECTED T4 (FTI) (test code = 4.0 UG/DL 2820) TSH, THIRD GENERATION (test code 4.570 UIU/ML = 2821) THYROID II PROFILE (T3U, T4, T7, TSH)2020-10-05 00:00:00 Test Item Value Reference Range Interpretation Comments T-UPTAKE (test code = 2817) 30.2 % THYROX. BIND. CAPAC. (test code 1.1 = 83149) T4 (THYROXINE) (test code = 4.4 UG/DL 2819) CORRECTED T4 (FTI) (test code = 4.0 UG/DL 2820) TSH, THIRD GENERATION (test code 4.570 UIU/ML = 2821) CBC W/AUTO [id number] 00:00:00 Test Item Value Reference Range Interpretation [...] NUCLEATED RBCS (test code = 0.00 K/UL 02120) CBC W/AUTO [id number] 00:00:00 Test Item Value Reference Range Interpretation [...] NUCLEATED RBCS (test code = 0.00 K/UL 42740) CBC W/AUTO [id number] 00:00:00 Test Item Value Reference Range Interpretation [...] NUCLEATED RBCS (test code = 0.00 K/UL 59546) LIPID [id number] 00:00:00 Test Item Value Reference Range Interpretation Comments CHOLESTEROL (test code = 2210) 112 MG/DL TRIGLYCERIDES (test code = 2232) 140 MG/DL HDL CHOLESTEROL (test code = 2220) 34 MG/DL CALC LDL CHOL (test code = 2237) 56 MG/DL RISK RATIO LDL/HDL (test code = 1.65 RATIO 2238) LIPID [id number] 00:00:00 Test Item Value Reference Range Interpretation Comments CHOLESTEROL (test code = 2210) 112 MG/DL TRIGLYCERIDES (test code = 2232) 140 MG/DL HDL CHOLESTEROL (test code = 2220) 34 MG/DL CALC LDL CHOL (test code = 2237) 56 MG/DL RISK RATIO LDL/HDL (test code = 1.65 RATIO 2238) COMPREHENSIVE METABOLIC [id number] 00:00:00 Test Item Value Reference Range Interpretation Comments GLUCOSE (test code = 2217) 109 MG/DL BUN (test code = 2208) 11 MG/DL CREATININE (test code = 2214) 0.68 MG/DL eGFR AMER. (test code 116 ML/MIN/1.73 = 43076) eGFR NON- AMER. (test 100 ML/MIN/1.73 code = 23388) CALC BUN/CREAT (test code = 16 RATIO [...] code = 2219) 29 U/L COMPREHENSIVE METABOLIC [id number] 00:00:00 Test Item Value Reference Range Interpretation Comments GLUCOSE (test code = 2217) 109 MG/DL BUN (test code = 2208) 11 MG/DL CREATININE (test code = 2214) 0.68 MG/DL eGFR AMER. (test code 116 ML/MIN/1.73 = 99033) eGFR NON- AMER. (test 100 ML/MIN/1.73 code = 33234) CALC BUN/CREAT (test code = 16 RATIO [...] = 2219) 29 U/L VITAMIN D, 25 [id number] 00:00:00 Test Item Value Reference Range Interpretation Comments VITAMIN D, 25 OH (test code = 4958) 20 NG/ML VITAMIN D, 25 [id number] 00:00:00 Test Item Value Reference Range Interpretation Comments VITAMIN D, 25 OH (test code = 4958) 20 NG/ML [id number] 00:00:00 Test Item Value Reference Range Interpretation Comments LITHIUM (test code = 2038) 0.38 MEQ/L [id number] 00:00:00 Test Item Value Reference Range Interpretation Comments LITHIUM (test code = 203) 0.38 MEQ/L [id number] 00:00:00 Test Item Value Reference Range Interpretation Comments LITHIUM (test code = 203) 0.38 MEQ/L THYROID II PROFILE (T3U, T4, T7, TSH)2020-10-05 00:00:00 Test Item Value Reference Range Interpretation Comments T-UPTAKE (test code = 2817) 30.2 % THYROX. BIND. CAPAC. (test code 1.1 = 87589) T4 (THYROXINE) (test code = 4.4 UG/DL 2818) CORRECTED T4 (FTI) (test code = 4.0 UG/DL 2820) TSH, THIRD GENERATION (test code 4.570 UIU/ML = 2821) THYROID II PROFILE (T3U, T4, T7, TSH)2020-10-05 00:00:00 Test Item Value Reference Range Interpretation Comments T-UPTAKE (test code = 2817) 30.2 % THYROX. BIND. CAPAC. (test code 1.1 = 27661) T4 (THYROXINE) (test code = 4.4 UG/DL 2819) CORRECTED T4 (FTI) (test code = 4.0 UG/DL 2820) TSH, THIRD GENERATION (test code 4.570 UIU/ML = 2821) CBC W/AUTO [id number] 00:00:00 Test Item Value Reference Range Interpretation [...] NUCLEATED RBCS (test code = 0.00 K/UL 76489) CBC W/AUTO [id number] 00:00:00 Test Item Value Reference Range Interpretation [...] NUCLEATED RBCS (test code = 0.00 K/UL 38661) CBC W/AUTO [id number] 00:00:00 Test Item Value Reference Range Interpretation [...] NUCLEATED RBCS (test code = 0.00 K/UL 54405) LIPID [id number] 00:00:00 Test Item Value Reference Range Interpretation Comments CHOLESTEROL (test code = 2210) 112 MG/DL TRIGLYCERIDES (test code = 2232) 140 MG/DL HDL CHOLESTEROL (test code = 2220) 34 MG/DL CALC LDL CHOL (test code = 2237) 56 MG/DL RISK RATIO LDL/HDL (test code = 1.65 RATIO 2238) LIPID [id number] 00:00:00 Test Item Value Reference Range Interpretation Comments CHOLESTEROL (test code = 2210) 112 MG/DL TRIGLYCERIDES (test code = 2232) 140 MG/DL HDL CHOLESTEROL (test code = 2220) 34 MG/DL CALC LDL CHOL (test code = 2237) 56 MG/DL RISK RATIO LDL/HDL (test code = 1.65 RATIO 2238) COMPREHENSIVE METABOLIC [id number] 00:00:00 Test Item Value Reference Range Interpretation Comments GLUCOSE (test code = 2217) 109 MG/DL BUN (test code = 2208) 11 MG/DL CREATININE (test code = 2214) 0.68 MG/DL eGFR AMER. (test code 116 ML/MIN/1.73 = 02951) eGFR NON- AMER. (test 100 ML/MIN/1.73 code = 99187) CALC BUN/CREAT (test code = 16 RATIO [...] code = 2219) 29 U/L COMPREHENSIVE METABOLIC [id number] 00:00:00 Test Item Value Reference Range Interpretation Comments GLUCOSE (test code = 2217) 109 MG/DL BUN (test code = 2208) 11 MG/DL CREATININE (test code = 2214) 0.68 MG/DL eGFR AMER. (test code 116 ML/MIN/1.73 = 52551) eGFR NON- AMER. (test 100 ML/MIN/1.73 code = 09924) CALC BUN/CREAT (test code = 16 RATIO [...] = 2219) 29 U/L VITAMIN D, 25 [id number] 00:00:00 Test Item Value Reference Range Interpretation Comments VITAMIN D, 25 OH (test code = 4958) 20 NG/ML VITAMIN D, 25 [id number] 00:00:00 Test Item Value Reference Range Interpretation Comments VITAMIN D, 25 OH (test code = 4958) 20 NG/ML [id number] 00:00:00 Test Item Value Reference Range Interpretation Comments LITHIUM (test code = 2038) 0.38 MEQ/L [id number] 00:00:00 Test Item Value Reference Range Interpretation Comments LITHIUM (test code = 2038) 0.38 MEQ/L [id number] 00:00:00 Test Item Value Reference Range Interpretation Comments LITHIUM (test code = 2038) 0.38 MEQ/L THYROID II PROFILE (T3U, T4, T7, TSH)2020-10-05 00:00:00 Test Item Value Reference Range Interpretation Comments T-UPTAKE (test code = 2816) 30.2 % THYROX. BIND. CAPAC. (test code 1.1 = 34361) T4 (THYROXINE) (test code = 4.4 UG/DL 2818) CORRECTED T4 (FTI) (test code = 4.0 UG/DL 2820) TSH, THIRD GENERATION (test code 4.570 UIU/ML = 2821) THYROID II PROFILE (T3U, T4, T7, TSH)2020-10-05 00:00:00 Test Item Value Reference Range Interpretation Comments T-UPTAKE (test code = 2816) 30.2 % THYROX. BIND. CAPAC. (test code 1.1 = 36581) T4 (THYROXINE) (test code = 4.4 UG/DL 2819) CORRECTED T4 (FTI) (test code = 4.0 UG/DL 2820) TSH, THIRD GENERATION (test code 4.570 UIU/ML = 2821) CBC W/AUTO [id number] 00:00:00 Test Item Value Reference Range Interpretation [...] NUCLEATED RBCS (test code = 0.00 K/UL 07989) CBC W/AUTO [id number] 00:00:00 Test Item Value Reference Range Interpretation [...] NUCLEATED RBCS (test code = 0.00 K/UL 68722) CBC W/AUTO [id number] 00:00:00 Test Item Value Reference Range Interpretation [...] NUCLEATED RBCS (test code = 0.00 K/UL 57491) LIPID [id number] 00:00:00 Test Item Value Reference Range Interpretation Comments CHOLESTEROL (test code = 2210) 112 MG/DL TRIGLYCERIDES (test code = 2232) 140 MG/DL HDL CHOLESTEROL (test code = 2220) 34 MG/DL CALC LDL CHOL (test code = 2237) 56 MG/DL RISK RATIO LDL/HDL (test code = 1.65 RATIO 2238) LIPID [id number] 00:00:00 Test Item Value Reference Range Interpretation Comments CHOLESTEROL (test code = 2210) 112 MG/DL TRIGLYCERIDES (test code = 2232) 140 MG/DL HDL CHOLESTEROL (test code = 2220) 34 MG/DL CALC LDL CHOL (test code = 2237) 56 MG/DL RISK RATIO LDL/HDL (test code = 1.65 RATIO 2238) COMPREHENSIVE METABOLIC [id number] 00:00:00 Test Item Value Reference Range Interpretation Comments GLUCOSE (test code = 2217) 109 MG/DL BUN (test code = 2208) 11 MG/DL CREATININE (test code = 2214) 0.68 MG/DL eGFR AMER. (test code 116 ML/MIN/1.73 = 42225) eGFR NON- AMER. (test 100 ML/MIN/1.73 code = 36579) CALC BUN/CREAT (test code = 16 RATIO [...] code = 2219) 29 U/L COMPREHENSIVE METABOLIC [id number] 00:00:00 Test Item Value Reference Range Interpretation Comments GLUCOSE (test code = 2217) 109 MG/DL BUN (test code = 2208) 11 MG/DL CREATININE (test code = 2214) 0.68 MG/DL eGFR AMER. (test code 116 ML/MIN/1.73 = 81184) eGFR NON- AMER. (test 100 ML/MIN/1.73 code = 96653) CALC BUN/CREAT (test code = 16 RATIO [...] = 2219) 29 U/L VITAMIN D, 25 [id number] 00:00:00 Test Item Value Reference Range Interpretation Comments VITAMIN D, 25 OH (test code = 4958) 20 NG/ML VITAMIN D, 25 [id number] 00:00:00 Test Item Value Reference Range Interpretation Comments VITAMIN D, 25 OH (test code = 4958) 20 NG/ML [id number] 00:00:00 Test Item Value Reference Range Interpretation Comments LITHIUM (test code = 2038) 0.38 MEQ/L [id number] 00:00:00 Test Item Value Reference Range Interpretation Comments LITHIUM (test code = 2038) 0.38 MEQ/L [id number] 00:00:00 Test Item Value Reference Range Interpretation Comments LITHIUM (test code = 2038) 0.38 MEQ/L THYROID II PROFILE (T3U, T4, T7, TSH)2020-10-05 00:00:00 Test Item Value Reference Range Interpretation Comments T-UPTAKE (test code = 2816) 30.2 % THYROX. BIND. CAPAC. (test code 1.1 = 59139) T4 (THYROXINE) (test code = 4.4 UG/DL 2818) CORRECTED T4 (FTI) (test code = 4.0 UG/DL 2820) TSH, THIRD GENERATION (test code 4.570 UIU/ML = 2821) THYROID II PROFILE (T3U, T4, T7, TSH)2020-10-05 00:00:00 Test Item Value Reference Range Interpretation Comments T-UPTAKE (test code = 2816) 30.2 % THYROX. BIND. CAPAC. (test code 1.1 = 53237) T4 (THYROXINE) (test code = 4.4 UG/DL 281) CORRECTED T4 (FTI) (test code = 4.0 UG/DL 2820) TSH, THIRD GENERATION (test code 4.570 UIU/ML = 2821) CBC W/AUTO [id number] 00:00:00 Test Item Value Reference Range Interpretation [...] NUCLEATED RBCS (test code = 0.00 K/UL 06614) CBC W/AUTO [id number] 00:00:00 Test Item Value Reference Range Interpretation [...] NUCLEATED RBCS (test code = 0.00 K/UL 00896) CBC W/AUTO [id number] 00:00:00 Test Item Value Reference Range Interpretation [...] NUCLEATED RBCS (test code = 0.00 K/UL 73654) LIPID [id number] 00:00:00 Test Item Value Reference Range Interpretation Comments CHOLESTEROL (test code = 2210) 112 MG/DL TRIGLYCERIDES (test code = 2232) 140 MG/DL HDL CHOLESTEROL (test code = 2220) 34 MG/DL CALC LDL CHOL (test code = 2237) 56 MG/DL RISK RATIO LDL/HDL (test code = 1.65 RATIO 2238) LIPID [id number] 00:00:00 Test Item Value Reference Range Interpretation Comments CHOLESTEROL (test code = 2210) 112 MG/DL TRIGLYCERIDES (test code = 2232) 140 MG/DL HDL CHOLESTEROL (test code = 2220) 34 MG/DL CALC LDL CHOL (test code = 2237) 56 MG/DL RISK RATIO LDL/HDL (test code = 1.65 RATIO 2238) COMPREHENSIVE METABOLIC [id number] 00:00:00 Test Item Value Reference Range Interpretation Comments GLUCOSE (test code = 2217) 109 MG/DL BUN (test code = 2208) 11 MG/DL CREATININE (test code = 2214) 0.68 MG/DL eGFR AMER. (test code 116 ML/MIN/1.73 = 26706) eGFR NON- AMER. (test 100 ML/MIN/1.73 code = 10616) CALC BUN/CREAT (test code = 16 RATIO [...] code = 2219) 29 U/L COMPREHENSIVE METABOLIC [id number] 00:00:00 Test Item Value Reference Range Interpretation Comments GLUCOSE (test code = 2217) 109 MG/DL BUN (test code = 2208) 11 MG/DL CREATININE (test code = 2214) 0.68 MG/DL eGFR AMER. (test code 116 ML/MIN/1.73 = 69592) eGFR NON- AMER. (test 100 ML/MIN/1.73 code = 72754) CALC BUN/CREAT (test code = 16 RATIO [...] = 2219) 29 U/L VITAMIN D, 25 [id number] 00:00:00 Test Item Value Reference Range Interpretation Comments VITAMIN D, 25 OH (test code = 4958) 20 NG/ML VITAMIN D, 25 [id number] 00:00:00 Test Item Value Reference Range Interpretation Comments VITAMIN D, 25 OH (test code = 4958) 20 NG/ML [id number] 00:00:00 Test Item Value Reference Range Interpretation Comments LITHIUM (test code = 203) 0.38 MEQ/L [id number] 00:00:00 Test Item Value Reference Range Interpretation Comments LITHIUM (test code = 203) 0.38 MEQ/L [id number] 00:00:00 Test Item Value Reference Range Interpretation Comments LITHIUM (test code = 203) 0.38 MEQ/L THYROID II PROFILE (T3U, T4, T7, TSH)2020-10-05 00:00:00 Test Item Value Reference Range Interpretation Comments T-UPTAKE (test code = 2817) 30.2 % THYROX. BIND. CAPAC. (test code 1.1 = 56086) T4 (THYROXINE) (test code = 4.4 UG/DL 2819) CORRECTED T4 (FTI) (test code = 4.0 UG/DL 2820) TSH, THIRD GENERATION (test code 4.570 UIU/ML = 2821) THYROID II PROFILE (T3U, T4, T7, TSH)2020-10-05 00:00:00 Test Item Value Reference Range Interpretation Comments T-UPTAKE (test code = 2817) 30.2 % THYROX. BIND. CAPAC. (test code 1.1 = 20720) T4 (THYROXINE) (test code = 4.4 UG/DL 2819) CORRECTED T4 (FTI) (test code = 4.0 UG/DL 2820) TSH, THIRD GENERATION (test code 4.570 UIU/ML = 2821) CBC W/AUTO [id number] 00:00:00 Test Item Value Reference Range Interpretation [...] NUCLEATED RBCS (test code = 0.00 K/UL 29314) CBC W/AUTO [id number] 00:00:00 Test Item Value Reference Range Interpretation [...] NUCLEATED RBCS (test code = 0.00 K/UL 79828) CBC W/AUTO [id number] 00:00:00 Test Item Value Reference Range Interpretation [...] NUCLEATED RBCS (test code = 0.00 K/UL 55972) LIPID [id number] 00:00:00 Test Item Value Reference Range Interpretation Comments CHOLESTEROL (test code = 2210) 112 MG/DL TRIGLYCERIDES (test code = 2232) 140 MG/DL HDL CHOLESTEROL (test code = 2220) 34 MG/DL CALC LDL CHOL (test code = 2237) 56 MG/DL RISK RATIO LDL/HDL (test code = 1.65 RATIO 2238) LIPID [id number] 00:00:00 Test Item Value Reference Range Interpretation Comments CHOLESTEROL (test code = 2210) 112 MG/DL TRIGLYCERIDES (test code = 2232) 140 MG/DL HDL CHOLESTEROL (test code = 2220) 34 MG/DL CALC LDL CHOL (test code = 2237) 56 MG/DL RISK RATIO LDL/HDL (test code = 1.65 RATIO 2238) COMPREHENSIVE METABOLIC [id number] 00:00:00 Test Item Value Reference Range Interpretation Comments GLUCOSE (test code = 2217) 109 MG/DL BUN (test code = 2208) 11 MG/DL CREATININE (test code = 2214) 0.68 MG/DL eGFR AMER. (test code 116 ML/MIN/1.73 = 52044) eGFR NON- AMER. (test 100 ML/MIN/1.73 code = 97143) CALC BUN/CREAT (test code = 16 RATIO [...] code = 2219) 29 U/L COMPREHENSIVE METABOLIC [id number] 00:00:00 Test Item Value Reference Range Interpretation Comments GLUCOSE (test code = 2217) 109 MG/DL BUN (test code = 2208) 11 MG/DL CREATININE (test code = 2214) 0.68 MG/DL eGFR AMER. (test code 116 ML/MIN/1.73 = 57945) eGFR NON- AMER. (test 100 ML/MIN/1.73 code = 30119) CALC BUN/CREAT (test code = 16 RATIO [...] = 2219) 29 U/L VITAMIN D, 25 [id number] 00:00:00 Test Item Value Reference Range Interpretation Comments VITAMIN D, 25 OH (test code = 4958) 20 NG/ML VITAMIN D, 25 [id number] 00:00:00 Test Item Value Reference Range Interpretation Comments VITAMIN D, 25 OH (test code = 4958) 20 NG/ML [id number] 00:00:00 Test Item Value Reference Range Interpretation Comments LITHIUM (test code = 2038) 0.38 MEQ/L [id number] 00:00:00 Test Item Value Reference Range Interpretation Comments LITHIUM (test code = 2038) 0.38 MEQ/L [id number] 00:00:00 Test Item Value Reference Range Interpretation Comments LITHIUM (test code = 2038) 0.38 MEQ/L THYROID II PROFILE (T3U, T4, T7, TSH)2020-10-05 00:00:00 Test Item Value Reference Range Interpretation Comments T-UPTAKE (test code = 281) 30.2 % THYROX. BIND. CAPAC. (test code 1.1 = 29216) T4 (THYROXINE) (test code = 4.4 UG/DL 2819) CORRECTED T4 (FTI) (test code = 4.0 UG/DL 2820) TSH, THIRD GENERATION (test code 4.570 UIU/ML = 2821) THYROID II PROFILE (T3U, T4, T7, TSH)2020-10-05 00:00:00 Test Item Value Reference Range Interpretation Comments T-UPTAKE (test code = 2816) 30.2 % THYROX. BIND. CAPAC. (test code 1.1 = 82134) T4 (THYROXINE) (test code = 4.4 UG/DL 2819) CORRECTED T4 (FTI) (test code = 4.0 UG/DL 2820) TSH, THIRD GENERATION (test code 4.570 UIU/ML = 2821) CBC W/AUTO [id number] 00:00:00 Test Item Value Reference Range Interpretation [...] NUCLEATED RBCS (test code = 0.00 K/UL 42721) CBC W/AUTO [id number] 00:00:00 Test Item Value Reference Range Interpretation [...] NUCLEATED RBCS (test code = 0.00 K/UL 98275) CBC W/AUTO [id number] 00:00:00 Test Item Value Reference Range Interpretation [...] NUCLEATED RBCS (test code = 0.00 K/UL 99762) LIPID [id number] 00:00:00 Test Item Value Reference Range Interpretation Comments CHOLESTEROL (test code = 2210) 112 MG/DL TRIGLYCERIDES (test code = 2232) 140 MG/DL HDL CHOLESTEROL (test code = 2220) 34 MG/DL CALC LDL CHOL (test code = 2237) 56 MG/DL RISK RATIO LDL/HDL (test code = 1.65 RATIO 2238) LIPID [id number] 00:00:00 Test Item Value Reference Range Interpretation Comments CHOLESTEROL (test code = 2210) 112 MG/DL TRIGLYCERIDES (test code = 2232) 140 MG/DL HDL CHOLESTEROL (test code = 2220) 34 MG/DL CALC LDL CHOL (test code = 2237) 56 MG/DL RISK RATIO LDL/HDL (test code = 1.65 RATIO 2238) COMPREHENSIVE METABOLIC [id number] 00:00:00 Test Item Value Reference Range Interpretation Comments GLUCOSE (test code = 2217) 109 MG/DL BUN (test code = 2208) 11 MG/DL CREATININE (test code = 2214) 0.68 MG/DL eGFR AMER. (test code 116 ML/MIN/1.73 = 40800) eGFR NON- AMER. (test 100 ML/MIN/1.73 code = 90468) CALC BUN/CREAT (test code = 16 RATIO [...] code = 2219) 29 U/L COMPREHENSIVE METABOLIC [id number] 00:00:00 Test Item Value Reference Range Interpretation Comments GLUCOSE (test code = 2217) 109 MG/DL BUN (test code = 2208) 11 MG/DL CREATININE (test code = 2214) 0.68 MG/DL eGFR AMER. (test code 116 ML/MIN/1.73 = 26042) eGFR NON- AMER. (test 100 ML/MIN/1.73 code = 14835) CALC BUN/CREAT (test code = 16 RATIO 2235) SODIUM (test code = 2231) 140 MEQ/L POTASSIUM (test code = 2228) 4.6 MEQ/L CHLORIDE (test code = 2215) 108 MEQ/L CARBON DIOXIDE (test code = 22 MEQ/L 2205) CALCIUM (test code = 2208) 10.7 MG/DL PROTEIN, TOTAL (test code = 6.4 G/DL 2228) ALBUMIN (test code = 2200) 4.4 G/DL CALC GLOBULIN (test code = 2.0 G/DL 2239) CALC A/G RATIO (test code = 2.2 RATIO 2233) BILIRUBIN, TOTAL (test code = 0.3 MG/DL 2206) ALKALINE PHOSPHATASE (test 100 U/L code = 2203) AST (test code = 8) 19 U/L ALT (test code = 2218) 29 U/L VITAMIN D, 25 [id number] 00:00:00 Test Item Value Reference Range Interpretation Comments VITAMIN D, 25 OH (test code = 4958) 20 NG/ML VITAMIN D, 25 [id number] 00:00:00 Test Item Value Reference Range Interpretation Comments VITAMIN D, 25 OH (test code = 4958) 20 NG/ML [id number] 00:00:00 Test Item Value Reference Range Interpretation Comments LITHIUM (test code = 2038) 0.38 MEQ/L [id number] 00:00:00 Test Item Value Reference Range Interpretation Comments LITHIUM (test code = 2038) 0.38 MEQ/L [id number] 00:00:00 Test Item Value Reference Range Interpretation Comments LITHIUM (test code = 2038) 0.38 MEQ/L THYROID II PROFILE (T3U, T4, T7, TSH)2020-10-05 00:00:00 Test Item Value Reference Range Interpretation Comments T-UPTAKE (test code = 2816) 30.2 % THYROX. BIND. CAPAC. (test code 1.1 = 84270) T4 (THYROXINE) (test code = 4.4 UG/DL 2818) CORRECTED T4 (FTI) (test code = 4.0 UG/DL 2819) TSH, THIRD GENERATION (test code 4.570 UIU/ML = 2821) THYROID II PROFILE (T3U, T4, T7, TSH)2020-10-05 00:00:00 Test Item Value Reference Range Interpretation Comments T-UPTAKE (test code = 2816) 30.2 % THYROX. BIND. CAPAC. (test code 1.1 = 70345) T4 (THYROXINE) (test code = 4.4 UG/DL 2819) CORRECTED T4 (FTI) (test code = 4.0 UG/DL 2820) TSH, THIRD GENERATION (test code 4.570 UIU/ML = 2821) CBC W/AUTO [id number] 00:00:00 Test Item Value Reference Range Interpretation [...] NUCLEATED RBCS (test code = 0.00 K/UL 07796) CBC W/AUTO [id number] 00:00:00 Test Item Value Reference Range Interpretation [...] NUCLEATED RBCS (test code = 0.00 K/UL 36154) CBC W/AUTO [id number] 00:00:00 Test Item Value Reference Range Interpretation [...] NUCLEATED RBCS (test code = 0.00 K/UL 29134) LIPID [id number] 00:00:00 Test Item Value Reference Range Interpretation Comments CHOLESTEROL (test code = 2210) 112 MG/DL TRIGLYCERIDES (test code = 2232) 140 MG/DL HDL CHOLESTEROL (test code = 2220) 34 MG/DL CALC LDL CHOL (test code = 2237) 56 MG/DL RISK RATIO LDL/HDL (test code = 1.65 RATIO 2238) LIPID [id number] 00:00:00 Test Item Value Reference Range Interpretation Comments CHOLESTEROL (test code = 2210) 112 MG/DL TRIGLYCERIDES (test code = 2232) 140 MG/DL HDL CHOLESTEROL (test code = 2220) 34 MG/DL CALC LDL CHOL (test code = 2237) 56 MG/DL RISK RATIO LDL/HDL (test code = 1.65 RATIO 2238) COMPREHENSIVE METABOLIC [id number] 00:00:00 Test Item Value Reference Range Interpretation Comments GLUCOSE (test code = 2217) 109 MG/DL BUN (test code = 2208) 11 MG/DL CREATININE (test code = 2214) 0.68 MG/DL eGFR AMER. (test code 116 ML/MIN/1.73 = 88434) eGFR NON- AMER. (test 100 ML/MIN/1.73 code = 75765) CALC BUN/CREAT (test code = 16 RATIO [...] code = 2219) 29 U/L COMPREHENSIVE METABOLIC [id number] 00:00:00 Test Item Value Reference Range Interpretation Comments GLUCOSE (test code = 2217) 109 MG/DL BUN (test code = 2208) 11 MG/DL CREATININE (test code = 2214) 0.68 MG/DL eGFR AMER. (test code 116 ML/MIN/1.73 = 63505) eGFR NON- AMER. (test 100 ML/MIN/1.73 code = 20647) CALC BUN/CREAT (test code = 16 RATIO [...] = 2219) 29 U/L VITAMIN D, 25 [id number] 00:00:00 Test Item Value Reference Range Interpretation Comments VITAMIN D, 25 OH (test code = 4958) 20 NG/ML VITAMIN D, 25 [id number] 00:00:00 Test Item Value Reference Range Interpretation Comments VITAMIN D, 25 OH (test code = 4958) 20 NG/ML [id number] 00:00:00 Test Item Value Reference Range Interpretation Comments LITHIUM (test code = 203) 0.38 MEQ/L [id number] 00:00:00 Test Item Value Reference Range Interpretation Comments LITHIUM (test code = 203) 0.38 MEQ/L [id number] 00:00:00 Test Item Value Reference Range Interpretation Comments LITHIUM (test code = 203) 0.38 MEQ/L THYROID II PROFILE (T3U, T4, T7, TSH)2020-10-05 00:00:00 Test Item Value Reference Range Interpretation Comments T-UPTAKE (test code = 2817) 30.2 % THYROX. BIND. CAPAC. (test code 1.1 = 29672) T4 (THYROXINE) (test code = 4.4 UG/DL 2819) CORRECTED T4 (FTI) (test code = 4.0 UG/DL 2820) TSH, THIRD GENERATION (test code 4.570 UIU/ML = 2821) THYROID II PROFILE (T3U, T4, T7, TSH)2020-10-05 00:00:00 Test Item Value Reference Range Interpretation Comments T-UPTAKE (test code = 2817) 30.2 % THYROX. BIND. CAPAC. (test code 1.1 = 69372) T4 (THYROXINE) (test code = 4.4 UG/DL 2819) CORRECTED T4 (FTI) (test code = 4.0 UG/DL 2820) TSH, THIRD GENERATION (test code 4.570 UIU/ML = 2821) CBC W/AUTO [id number] 00:00:00 Test Item Value Reference Range Interpretation [...] NUCLEATED RBCS (test code = 0.00 K/UL 71592) CBC W/AUTO [id number] 00:00:00 Test Item Value Reference Range Interpretation [...] NUCLEATED RBCS (test code = 0.00 K/UL 07241) CBC W/AUTO [id number] 00:00:00 Test Item Value Reference Range Interpretation [...] NUCLEATED RBCS (test code = 0.00 K/UL 71782) LIPID [id number] 00:00:00 Test Item Value Reference Range Interpretation Comments CHOLESTEROL (test code = 2210) 112 MG/DL TRIGLYCERIDES (test code = 2232) 140 MG/DL HDL CHOLESTEROL (test code = 2220) 34 MG/DL CALC LDL CHOL (test code = 2237) 56 MG/DL RISK RATIO LDL/HDL (test code = 1.65 RATIO 2238) LIPID [id number] 00:00:00 Test Item Value Reference Range Interpretation Comments CHOLESTEROL (test code = 2210) 112 MG/DL TRIGLYCERIDES (test code = 2232) 140 MG/DL HDL CHOLESTEROL (test code = 2220) 34 MG/DL CALC LDL CHOL (test code = 2237) 56 MG/DL RISK RATIO LDL/HDL (test code = 1.65 RATIO 2238) COMPREHENSIVE METABOLIC [id number] 00:00:00 Test Item Value Reference Range Interpretation Comments GLUCOSE (test code = 2217) 109 MG/DL BUN (test code = 2208) 11 MG/DL CREATININE (test code = 2214) 0.68 MG/DL eGFR AMER. (test code 116 ML/MIN/1.73 = 22292) eGFR NON- AMER. (test 100 ML/MIN/1.73 code = 53361) CALC BUN/CREAT (test code = 16 RATIO [...] code = 2219) 29 U/L COMPREHENSIVE METABOLIC [id number] 00:00:00 Test Item Value Reference Range Interpretation Comments GLUCOSE (test code = 2217) 109 MG/DL BUN (test code = 2208) 11 MG/DL CREATININE (test code = 2214) 0.68 MG/DL eGFR AMER. (test code 116 ML/MIN/1.73 = 62547) eGFR NON- AMER. (test 100 ML/MIN/1.73 code = 14759) CALC BUN/CREAT (test code = 16 RATIO [...] ALT (test code = 2219) 29 U/L [id number] 00:00:00 Test Item Value Reference Range Interpretation Comments LITHIUM (test code = 2038) 0.31 MEQ/L [id number] 00:00:00 Test Item Value Reference Range Interpretation Comments LITHIUM (test code = 2038) 0.31 MEQ/L VITAMIN D, 25 [id number] 00:00:00 Test Item Value Reference Range Interpretation Comments VITAMIN D, 25 OH (test code = 4958) 25 NG/ML VITAMIN D, 25 [id number] 00:00:00 Test Item Value Reference Range Interpretation Comments VITAMIN D, 25 OH (test code = 4958) 25 NG/ML [id number] 00:00:00 Test Item Value Reference Range Interpretation Comments LITHIUM (test code = 2038) 0.31 MEQ/L [id number] 00:00:00 Test Item Value Reference Range Interpretation Comments TSH, THIRD GENERATION (test code 2.180 UIU/ML = 2821) [id number] 00:00:00 Test Item Value Reference Range Interpretation Comments LITHIUM (test code = 2038) 0.31 MEQ/L VITAMIN D, 25 [id number] 00:00:00 Test Item Value Reference Range Interpretation Comments VITAMIN D, 25 OH (test code = 4958) 25 NG/ML [id number] 00:00:00 Test Item Value Reference Range Interpretation Comments LITHIUM (test code = 2038) 0.31 MEQ/L [id number] 00:00:00 Test Item Value Reference Range Interpretation Comments TSH, THIRD GENERATION (test code 2.180 UIU/ML = 2821) [id number] 00:00:00 Test Item Value Reference Range Interpretation Comments TSH, THIRD GENERATION (test code 2.180 UIU/ML = 2821) [id number] 00:00:00 Test Item Value Reference Range Interpretation Comments TSH, THIRD GENERATION (test code 2.180 UIU/ML = 2821) [id number] 00:00:00 Test Item Value Reference Range Interpretation Comments TSH, THIRD GENERATION (test code 2.180 UIU/ML = 2821) [id number] 00:00:00 Test Item Value Reference Range Interpretation Comments LITHIUM (test code = 2038) 0.31 MEQ/L VITAMIN D, 25 [id number] 00:00:00 Test Item Value Reference Range Interpretation Comments VITAMIN D, 25 OH (test code = 4958) 25 NG/ML VITAMIN D, 25 [id number] 00:00:00 Test Item Value Reference Range Interpretation Comments VITAMIN D, 25 OH (test code = 4958) 25 NG/ML [id number] 00:00:00 Test Item Value Reference Range Interpretation Comments LITHIUM (test code = 2038) 0.31 MEQ/L [id number] 00:00:00 Test Item Value Reference Range Interpretation Comments LITHIUM (test code = 2038) 0.31 MEQ/L [id number] 00:00:00 Test Item Value Reference Range Interpretation Comments TSH, THIRD GENERATION (test code 2.180 UIU/ML = 2821) [id number] 00:00:00 Test Item Value Reference Range Interpretation Comments TSH, THIRD GENERATION (test code 2.180 UIU/ML = 2821) [id number] 00:00:00 Test Item Value Reference Range Interpretation Comments TSH, THIRD GENERATION (test code 2.180 UIU/ML = 2821) [id number] 00:00:00 Test Item Value Reference Range Interpretation Comments LITHIUM (test code = 2038) 0.31 MEQ/L VITAMIN D, 25 [id number] 00:00:00 Test Item Value Reference Range Interpretation Comments VITAMIN D, 25 OH (test code = 4958) 25 NG/ML VITAMIN D, 25 [id number] 00:00:00 Test Item Value Reference Range Interpretation Comments VITAMIN D, 25 OH (test code = 4958) 25 NG/ML [id number] 00:00:00 Test Item Value Reference Range Interpretation Comments LITHIUM (test code = 2038) 0.31 MEQ/L [id number] 00:00:00 Test Item Value Reference Range Interpretation Comments LITHIUM (test code = 2038) 0.31 MEQ/L [id number] 00:00:00 Test Item Value Reference Range Interpretation Comments TSH, THIRD GENERATION (test code 2.180 UIU/ML = 2821) [id number] 00:00:00 Test Item Value Reference Range Interpretation Comments TSH, THIRD GENERATION (test code 2.180 UIU/ML = 2821) [id number] 00:00:00 Test Item Value Reference Range Interpretation Comments TSH, THIRD GENERATION (test code 2.180 UIU/ML = 2821) [id number] 00:00:00 Test Item Value Reference Range Interpretation Comments LITHIUM (test code = 2038) 0.31 MEQ/L VITAMIN D, 25 [id number] 00:00:00 Test Item Value Reference Range Interpretation Comments VITAMIN D, 25 OH (test code = 4958) 25 NG/ML VITAMIN D, 25 [id number] 00:00:00 Test Item Value Reference Range Interpretation Comments VITAMIN D, 25 OH (test code = 4958) 25 NG/ML [id number] 00:00:00 Test Item Value Reference Range Interpretation Comments LITHIUM (test code = 2038) 0.31 MEQ/L [id number] 00:00:00 Test Item Value Reference Range Interpretation Comments LITHIUM (test code = 2038) 0.31 MEQ/L [id number] 00:00:00 Test Item Value Reference Range Interpretation Comments TSH, THIRD GENERATION (test code 2.180 UIU/ML = 2821) [id number] 00:00:00 Test Item Value Reference Range Interpretation Comments TSH, THIRD GENERATION (test code 2.180 UIU/ML = 2821) [id number] 00:00:00 Test Item Value Reference Range Interpretation Comments TSH, THIRD GENERATION (test code 2.180 UIU/ML = 2821) [id number] 00:00:00 Test Item Value Reference Range Interpretation Comments LITHIUM (test code = 2038) 0.31 MEQ/L VITAMIN D, 25 [id number] 00:00:00 Test Item Value Reference Range Interpretation Comments VITAMIN D, 25 OH (test code = 4958) 25 NG/ML VITAMIN D, 25 [id number] 00:00:00 Test Item Value Reference Range Interpretation Comments VITAMIN D, 25 OH (test code = 4958) 25 NG/ML [id number] 00:00:00 Test Item Value Reference Range Interpretation Comments LITHIUM (test code = 2038) 0.31 MEQ/L [id number] 00:00:00 Test Item Value Reference Range Interpretation Comments LITHIUM (test code = 203) 0.31 MEQ/L [id number] 00:00:00 Test Item Value Reference Range Interpretation Comments TSH, THIRD GENERATION (test code 2.180 UIU/ML = 2821) [id number] 00:00:00 Test Item Value Reference Range Interpretation Comments TSH, THIRD GENERATION (test code 2.180 UIU/ML = 2821) [id number] 00:00:00 Test Item Value Reference Range Interpretation Comments TSH, THIRD GENERATION (test code 2.180 UIU/ML = 2821) [id number] 00:00:00 Test Item Value Reference Range Interpretation Comments LITHIUM (test code = 2038) 0.31 MEQ/L VITAMIN D, 25 [id number] 00:00:00 Test Item Value Reference Range Interpretation Comments VITAMIN D, 25 OH (test code = 4958) 25 NG/ML VITAMIN D, 25 [id number] 00:00:00 Test Item Value Reference Range Interpretation Comments VITAMIN D, 25 OH (test code = 4958) 25 NG/ML [id number] 00:00:00 Test Item Value Reference Range Interpretation Comments LITHIUM (test code = 2038) 0.31 MEQ/L [id number] 00:00:00 Test Item Value Reference Range Interpretation Comments LITHIUM (test code = 2038) 0.31 MEQ/L [id number] 00:00:00 Test Item Value Reference Range Interpretation Comments TSH, THIRD GENERATION (test code 2.180 UIU/ML = 2821) [id number] 00:00:00 Test Item Value Reference Range Interpretation Comments TSH, THIRD GENERATION (test code 2.180 UIU/ML = 2821) [id number] 00:00:00 Test Item Value Reference Range Interpretation Comments TSH, THIRD GENERATION (test code 2.180 UIU/ML = 2821) [id number] 00:00:00 Test Item Value Reference Range Interpretation Comments LITHIUM (test code = 2038) 0.31 MEQ/L VITAMIN D, 25 [id number] 00:00:00 Test Item Value Reference Range Interpretation Comments VITAMIN D, 25 OH (test code = 4958) 25 NG/ML VITAMIN D, 25 [id number] 00:00:00 Test Item Value Reference Range Interpretation Comments VITAMIN D, 25 OH (test code = 4958) 25 NG/ML [id number] 00:00:00 Test Item Value Reference Range Interpretation Comments LITHIUM (test code = 2039) 0.31 MEQ/L [id number] 00:00:00 Test Item Value Reference Range Interpretation Comments LITHIUM (test code = 203) 0.31 MEQ/L [id number] 00:00:00 Test Item Value Reference Range Interpretation Comments TSH, THIRD GENERATION (test code 2.180 UIU/ML = 2821) [id number] 00:00:00 Test Item Value Reference Range Interpretation Comments TSH, THIRD GENERATION (test code 2.180 UIU/ML = 2821) [id number] 00:00:00 Test Item Value Reference Range Interpretation Comments TSH, THIRD GENERATION (test code 2.180 UIU/ML = 2821) [id number] 00:00:00 Test Item Value Reference Range Interpretation Comments LITHIUM (test code = 203) 0.31 MEQ/L VITAMIN D, 25 [id number] 00:00:00 Test Item Value Reference Range Interpretation Comments VITAMIN D, 25 OH (test code = 4958) 25 NG/ML VITAMIN D, 25 [id number] 00:00:00 Test Item Value Reference Range Interpretation Comments VITAMIN D, 25 OH (test code = 4958) 25 NG/ML [id number] 00:00:00 Test Item Value Reference Range Interpretation Comments LITHIUM (test code = 2039) 0.31 MEQ/L [id number] 00:00:00 Test Item Value Reference Range Interpretation Comments LITHIUM (test code = 2039) 0.31 MEQ/L [id number] 00:00:00 Test Item Value Reference Range Interpretation Comments TSH, THIRD GENERATION (test code 2.180 UIU/ML = 2821) [id number] 00:00:00 Test Item Value Reference Range Interpretation Comments TSH, THIRD GENERATION (test code 2.180 UIU/ML = 2821) [id number] 00:00:00 Test Item Value Reference Range Interpretation Comments TSH, THIRD GENERATION (test code 2.180 UIU/ML = 2821) [id number] 00:00:00 Test Item Value Reference Range Interpretation Comments LITHIUM (test code = 203) 0.31 MEQ/L [id number] 00:00:00 Test Item Value Reference Range Interpretation Comments LITHIUM (test code = 203) 0.31 MEQ/L [id number] 00:00:00 Test Item Value Reference Range Interpretation Comments LITHIUM (test code = 203) 0.31 MEQ/L VITAMIN D, 25 [id number] 00:00:00 Test Item Value Reference Range Interpretation Comments VITAMIN D, 25 OH (test code = 4958) 25 NG/ML VITAMIN D, 25 [id number] 00:00:00 Test Item Value Reference Range Interpretation Comments VITAMIN D, 25 OH (test code = 4958) 25 NG/ML [id number] 00:00:00 Test Item Value Reference Range Interpretation Comments TSH, THIRD GENERATION (test code 2.180 UIU/ML = 2821) [id number] 00:00:00 Test Item Value Reference Range Interpretation Comments TSH, THIRD GENERATION (test code 2.180 UIU/ML = 2821) [id number] 00:00:00 Test Item Value Reference Range Interpretation Comments TSH, THIRD GENERATION (test code 2.180 UIU/ML = 2821) [id number] 00:00:00 Test Item Value Reference Range Interpretation Comments LITHIUM (test code = 2038) 0.31 MEQ/L [id number] 00:00:00 Test Item Value Reference Range Interpretation Comments LITHIUM (test code = 2038) 0.31 MEQ/L VITAMIN D, 25 [id number] 00:00:00 Test Item Value Reference Range Interpretation Comments VITAMIN D, 25 OH (test code = 4958) 25 NG/ML VITAMIN D, 25 [id number] 00:00:00 Test Item Value Reference Range Interpretation Comments VITAMIN D, 25 OH (test code = 4958) 25 NG/ML [id number] 00:00:00 Test Item Value Reference Range Interpretation Comments LITHIUM (test code = 2038) 0.31 MEQ/L [id number] 00:00:00 Test Item Value Reference Range Interpretation Comments TSH, THIRD GENERATION (test code 2.180 UIU/ML = 2821) [id number] 00:00:00 Test Item Value Reference Range Interpretation Comments TSH, THIRD GENERATION (test code 2.180 UIU/ML = 2821) [id number] 00:00:00 Test Item Value Reference Range Interpretation Comments TSH, THIRD GENERATION (test code 2.180 UIU/ML = 2821) [id number] 00:00:00 Test Item Value Reference Range Interpretation Comments LITHIUM (test code = 203) 0.31 MEQ/L VITAMIN D, 25 [id number] 00:00:00 Test Item Value Reference Range Interpretation Comments VITAMIN D, 25 OH (test code = 4958) 25 NG/ML VITAMIN D, 25 [id number] 00:00:00 Test Item Value Reference Range Interpretation Comments VITAMIN D, 25 OH (test code = 4958) 25 NG/ML [id number] 00:00:00 Test Item Value Reference Range Interpretation Comments LITHIUM (test code = 2038) 0.31 MEQ/L [id number] 00:00:00 Test Item Value Reference Range Interpretation Comments LITHIUM (test code = 2038) 0.31 MEQ/L [id number] 00:00:00 Test Item Value Reference Range Interpretation Comments TSH, THIRD GENERATION (test code 2.180 UIU/ML = 2821) [id number] 00:00:00 Test Item Value Reference Range Interpretation Comments TSH, THIRD GENERATION (test code 2.180 UIU/ML = 2821) [id number] 00:00:00 Test Item Value Reference Range Interpretation Comments TSH, THIRD GENERATION (test code 2.180 UIU/ML = 2821) [id number] 00:00:00 Test Item Value Reference Range Interpretation Comments LITHIUM (test code = 2038) 0.31 MEQ/L VITAMIN D, 25 [id number] 00:00:00 Test Item Value Reference Range Interpretation Comments VITAMIN D, 25 OH (test code = 4958) 25 NG/ML [id number] 00:00:00 Test Item Value Reference Range Interpretation Comments LITHIUM (test code = 2038) 0.31 MEQ/L VITAMIN D, 25 [id number] 00:00:00 Test Item Value Reference Range Interpretation Comments VITAMIN D, 25 OH (test code = 4958) 25 NG/ML [id number] 00:00:00 Test Item Value Reference Range Interpretation Comments LITHIUM (test code = 2039) 0.31 MEQ/L [id number] 00:00:00 Test Item Value Reference Range Interpretation Comments TSH, THIRD GENERATION (test code 2.180 UIU/ML = 2821) [id number] 00:00:00 Test Item Value Reference Range Interpretation Comments TSH, THIRD GENERATION (test code 2.180 UIU/ML = 2821) [id number] 00:00:00 Test Item Value Reference Range Interpretation Comments TSH, THIRD GENERATION (test code 2.180 UIU/ML = 2821) [id number] 00:00:00 Test Item Value Reference Range Interpretation Comments LITHIUM (test code = 203) 0.27 MEQ/L [id number] 00:00:00 Test Item Value Reference Range Interpretation Comments LITHIUM (test code = 203) 0.27 MEQ/L [id number] 00:00:00 Test Item Value Reference Range Interpretation Comments LITHIUM (test code = 2039) 0.27 MEQ/L [id number] 00:00:00 Test Item Value Reference Range Interpretation Comments LITHIUM (test code = 2039) 0.27 MEQ/L [id number] 00:00:00 Test Item Value Reference Range Interpretation Comments LITHIUM (test code = 2039) 0.27 MEQ/L [id number] 00:00:00 Test Item Value Reference Range Interpretation Comments LITHIUM (test code = 2039) 0.27 MEQ/L [id number] 00:00:00 Test Item Value Reference Range Interpretation Comments LITHIUM (test code = 2039) 0.27 MEQ/L [id number] 00:00:00 Test Item Value Reference Range Interpretation Comments LITHIUM (test code = 2039) 0.27 MEQ/L [id number] 00:00:00 Test Item Value Reference Range Interpretation Comments LITHIUM (test code = 2039) 0.27 MEQ/L [id number] 00:00:00 Test Item Value Reference Range Interpretation Comments LITHIUM (test code = 2039) 0.27 MEQ/L [id number] 00:00:00 Test Item Value Reference Range Interpretation Comments LITHIUM (test code = 2039) 0.27 MEQ/L [id number] 00:00:00 Test Item Value Reference Range Interpretation Comments LITHIUM (test code = 203) 0.27 MEQ/L [id number] 00:00:00 Test Item Value Reference Range Interpretation Comments LITHIUM (test code = 203) 0.27 MEQ/L [id number] 00:00:00 Test Item Value Reference Range Interpretation Comments LITHIUM (test code = 2038) 0.27 MEQ/L [id number] 00:00:00 Test Item Value Reference Range Interpretation Comments LITHIUM (test code = 203) 0.27 MEQ/L [id number] 00:00:00 Test Item Value Reference Range Interpretation Comments LITHIUM (test code = 2038) 0.27 MEQ/L [id number] 00:00:00 Test Item Value Reference Range Interpretation Comments LITHIUM (test code = 2038) 0.27 MEQ/L [id number] 00:00:00 Test Item Value Reference Range Interpretation Comments LITHIUM (test code = 2038) 0.27 MEQ/L [id number] 00:00:00 Test Item Value Reference Range Interpretation Comments LITHIUM (test code = 2038) 0.27 MEQ/L [id number] 00:00:00 Test Item Value Reference Range Interpretation Comments LITHIUM (test code = 2038) 0.27 MEQ/L [id number] 00:00:00 Test Item Value Reference Range Interpretation Comments LITHIUM (test code = 2038) 0.27 MEQ/L [id number] 00:00:00 Test Item Value Reference Range Interpretation Comments LITHIUM (test code = 203) 0.27 MEQ/L [id number] 00:00:00 Test Item Value Reference Range Interpretation Comments LITHIUM (test code = 203) 0.27 MEQ/L [id number] 00:00:00 Test Item Value Reference Range Interpretation Comments LITHIUM (test code = 203) 0.27 MEQ/L [id number] 00:00:00 Test Item Value Reference Range Interpretation Comments LITHIUM (test code = 203) 0.27 MEQ/L [id number] 00:00:00 Test Item Value Reference Range Interpretation Comments LITHIUM (test code = 203) 0.27 MEQ/L [id number] 00:00:00 Test Item Value Reference Range Interpretation Comments LITHIUM (test code = 2039) 0.27 MEQ/L [id number] 00:00:00 Test Item Value Reference Range Interpretation Comments LITHIUM (test code = 2039) 0.27 MEQ/L [id number] 00:00:00 Test Item Value Reference Range Interpretation Comments LITHIUM (test code = 203) 0.27 MEQ/L [id number] 00:00:00 Test Item Value Reference Range Interpretation Comments LITHIUM (test code = 2039) 0.27 MEQ/L [id number] 00:00:00 Test Item Value Reference Range Interpretation Comments LITHIUM (test code = 203) 0.27 MEQ/L [id number] 00:00:00 Test Item Value Reference Range Interpretation Comments LITHIUM (test code = 203) 0.27 MEQ/L [id number] 00:00:00 Test Item Value Reference Range Interpretation Comments LITHIUM (test code = 203) 0.27 MEQ/L [id number] 00:00:00 Test Item Value Reference Range Interpretation Comments LITHIUM (test code = 2039) 0.27 MEQ/L [id number] 00:00:00 Test Item Value Reference Range Interpretation Comments LITHIUM (test code = 2039) 0.27 MEQ/L [id number] 00:00:00 Test Item Value Reference Range Interpretation Comments LITHIUM (test code = 2039) 0.27 MEQ/L [id number] 00:00:00 Test Item Value Reference Range Interpretation Comments LITHIUM (test code = 2039) 0.27 MEQ/L [id number] 00:00:00 Test Item Value Reference Range Interpretation Comments LITHIUM (test code = 2039) 0.27 MEQ/L [id number] 00:00:00 Test Item Value Reference Range Interpretation Comments MAGNESIUM (test code = 2226) 2.2 MG/DL [id number] 00:00:00 Test Item Value Reference Range Interpretation Comments MAGNESIUM (test code = 2226) 2.2 MG/DL [id number] 00:00:00 Test Item Value Reference Range Interpretation Comments MAGNESIUM (test code = 2226) 2.2 MG/DL VITAMIN [id number] 00:00:00 Test Item Value Reference Range Interpretation Comments VITAMIN B-12 (test code = 2840) 345 PG/ML VITAMIN [id number] 00:00:00 Test Item Value Reference Range Interpretation Comments VITAMIN B-12 (test code = 2840) 345 PG/ML VITAMIN [id number] 00:00:00 Test Item Value Reference Range Interpretation Comments VITAMIN B-12 (test code = 2840) 345 PG/ML VITAMIN D, 25 [id number] 00:00:00 Test Item Value Reference Range Interpretation Comments VITAMIN D, 25 OH (test code = 4958) 18 NG/ML VITAMIN D, 25 [id number] 00:00:00 Test Item Value Reference Range Interpretation Comments VITAMIN D, 25 OH (test code = 4958) 18 NG/ML COMPREHENSIVE METABOLIC [id number] 00:00:00 Test Item Value Reference Range Interpretation Comments GLUCOSE (test code = 2217) 92 MG/DL BUN (test code = 2208) 8 MG/DL CREATININE (test code = 2214) 0.78 MG/DL eGFR AMER. (test code 101 ML/MIN/1.73 = 34969) eGFR NON- AMER. (test 87 ML/MIN/1.73 code = 38810) CALC BUN/CREAT (test code = 10 RATIO [...] code = 2219) 60 U/L COMPREHENSIVE METABOLIC [id number] 00:00:00 Test Item Value Reference Range Interpretation Comments GLUCOSE (test code = 2217) 92 MG/DL BUN (test code = 2208) 8 MG/DL CREATININE (test code = 2214) 0.78 MG/DL eGFR AMER. (test code 101 ML/MIN/1.73 = 85074) eGFR NON- AMER. (test 87 ML/MIN/1.73 code = 39321) CALC BUN/CREAT (test code = 10 RATIO [...] code = 2219) 60 U/L COMPREHENSIVE METABOLIC [id number] 00:00:00 Test Item Value Reference Range Interpretation Comments GLUCOSE (test code = 2217) 92 MG/DL BUN (test code = 2208) 8 MG/DL CREATININE (test code = 2214) 0.78 MG/DL eGFR AMER. (test code 101 ML/MIN/1.73 = 39356) eGFR NON- AMER. (test 87 ML/MIN/1.73 code = 70218) CALC BUN/CREAT (test code = 10 RATIO [...] (test code = 2219) 60 U/L LIPID [id number] 00:00:00 Test Item Value Reference Range Interpretation Comments CHOLESTEROL (test code = 2210) 121 MG/DL TRIGLYCERIDES (test code = 2232) 72 MG/DL HDL CHOLESTEROL (test code = 2220) 49 MG/DL CALC LDL CHOL (test code = 2237) 57 MG/DL RISK RATIO LDL/HDL (test code = 1.16 RATIO 2238) LIPID [id number] 00:00:00 Test Item Value Reference Range Interpretation Comments CHOLESTEROL (test code = 2210) 121 MG/DL TRIGLYCERIDES (test code = 2232) 72 MG/DL HDL CHOLESTEROL (test code = 2220) 49 MG/DL CALC LDL CHOL (test code = 2237) 57 MG/DL RISK RATIO LDL/HDL (test code = 1.16 RATIO 2238) LIPID [id number] 00:00:00 Test Item Value Reference Range Interpretation Comments CHOLESTEROL (test code = 2210) 121 MG/DL TRIGLYCERIDES (test code = 2232) 72 MG/DL HDL CHOLESTEROL (test code = 2220) 49 MG/DL CALC LDL CHOL (test code = 2237) 57 MG/DL RISK RATIO LDL/HDL (test code = 1.16 RATIO 2238) [id number] 00:00:00 Test Item Value Reference Range Interpretation Comments TSH, THIRD GENERATION (test code 3.230 UIU/ML = 2821) [id number] 00:00:00 Test Item Value Reference Range Interpretation Comments TSH, THIRD GENERATION (test code 3.230 UIU/ML = 2821) [id number] 00:00:00 Test Item Value Reference Range Interpretation Comments TSH, THIRD GENERATION (test code 3.230 UIU/ML = 2821) [id number] 00:00:00 Test Item Value Reference Range Interpretation Comments MAGNESIUM (test code = 2226) 2.2 MG/DL [id number] 00:00:00 Test Item Value Reference Range Interpretation Comments MAGNESIUM (test code = 2226) 2.2 MG/DL [id number] 00:00:00 Test Item Value Reference Range Interpretation Comments MAGNESIUM (test code = 2226) 2.2 MG/DL VITAMIN [id number] 00:00:00 Test Item Value Reference Range Interpretation Comments VITAMIN B-12 (test code = 2840) 345 PG/ML VITAMIN [id number] 00:00:00 Test Item Value Reference Range Interpretation Comments VITAMIN B-12 (test code = 2840) 345 PG/ML [id number] 00:00:00 Test Item Value Reference Range Interpretation Comments TSH, THIRD GENERATION (test code 3.230 UIU/ML = 2821) VITAMIN [id number] 00:00:00 Test Item Value Reference Range Interpretation Comments VITAMIN B-12 (test code = 2840) 345 PG/ML VITAMIN D, 25 [id number] 00:00:00 Test Item Value Reference Range Interpretation Comments VITAMIN D, 25 OH (test code = 4958) 18 NG/ML VITAMIN D, 25 [id number] 00:00:00 Test Item Value Reference Range Interpretation Comments VITAMIN D, 25 OH (test code = 4958) 18 NG/ML [id number] 00:00:00 Test Item Value Reference Range Interpretation Comments TSH, THIRD GENERATION (test code 3.230 UIU/ML = 2821) [id number] 00:00:00 Test Item Value Reference Range Interpretation Comments MAGNESIUM (test code = 2226) 2.2 MG/DL [id number] 00:00:00 Test Item Value Reference Range Interpretation Comments MAGNESIUM (test code = 2226) 2.2 MG/DL VITAMIN [id number] 00:00:00 Test Item Value Reference Range Interpretation Comments VITAMIN B-12 (test code = 2840) 345 PG/ML VITAMIN [id number] 00:00:00 Test Item Value Reference Range Interpretation Comments VITAMIN B-12 (test code = 2840) 345 PG/ML VITAMIN D, 25 [id number] 00:00:00 Test Item Value Reference Range Interpretation Comments VITAMIN D, 25 OH (test code = 4958) 18 NG/ML COMPREHENSIVE METABOLIC [id number] 00:00:00 Test Item Value Reference Range Interpretation Comments GLUCOSE (test code = 2217) 92 MG/DL BUN (test code = 2208) 8 MG/DL CREATININE (test code = 2214) 0.78 MG/DL eGFR AMER. (test code 101 ML/MIN/1.73 = 69767) eGFR NON- AMER. (test 87 ML/MIN/1.73 code = 20024) CALC BUN/CREAT (test code = 10 RATIO [...] code = 2219) 60 U/L COMPREHENSIVE METABOLIC [id number] 00:00:00 Test Item Value Reference Range Interpretation Comments GLUCOSE (test code = 2217) 92 MG/DL BUN (test code = 2208) 8 MG/DL CREATININE (test code = 2214) 0.78 MG/DL eGFR AMER. (test code 101 ML/MIN/1.73 = 70638) eGFR NON- AMER. (test 87 ML/MIN/1.73 code = 00964) CALC BUN/CREAT (test code = 10 RATIO [...] (test code = 2219) 60 U/L LIPID [id number] 00:00:00 Test Item Value Reference Range Interpretation Comments CHOLESTEROL (test code = 2210) 121 MG/DL TRIGLYCERIDES (test code = 2232) 72 MG/DL HDL CHOLESTEROL (test code = 2220) 49 MG/DL CALC LDL CHOL (test code = 2237) 57 MG/DL RISK RATIO LDL/HDL (test code = 1.16 RATIO 2238) LIPID [id number] 00:00:00 Test Item Value Reference Range Interpretation Comments CHOLESTEROL (test code = 2210) 121 MG/DL TRIGLYCERIDES (test code = 2232) 72 MG/DL HDL CHOLESTEROL (test code = 2220) 49 MG/DL CALC LDL CHOL (test code = 2237) 57 MG/DL RISK RATIO LDL/HDL (test code = 1.16 RATIO 2238) [id number] 00:00:00 Test Item Value Reference Range Interpretation Comments TSH, THIRD GENERATION (test code 3.230 UIU/ML = 2821) [id number] 00:00:00 Test Item Value Reference Range Interpretation Comments TSH, THIRD GENERATION (test code 3.230 UIU/ML = 2821) [id number] 00:00:00 Test Item Value Reference Range Interpretation Comments TSH, THIRD GENERATION (test code 3.230 UIU/ML = 2821) [id number] 00:00:00 Test Item Value Reference Range Interpretation Comments MAGNESIUM (test code = 2226) 2.2 MG/DL [id number] 00:00:00 Test Item Value Reference Range Interpretation Comments MAGNESIUM (test code = 2226) 2.2 MG/DL [id number] 00:00:00 Test Item Value Reference Range Interpretation Comments MAGNESIUM (test code = 2226) 2.2 MG/DL VITAMIN [id number] 00:00:00 Test Item Value Reference Range Interpretation Comments VITAMIN B-12 (test code = 2840) 345 PG/ML VITAMIN [id number] 00:00:00 Test Item Value Reference Range Interpretation Comments VITAMIN B-12 (test code = 2840) 345 PG/ML VITAMIN [id number] 00:00:00 Test Item Value Reference Range Interpretation Comments VITAMIN B-12 (test code = 2840) 345 PG/ML VITAMIN D, 25 [id number] 00:00:00 Test Item Value Reference Range Interpretation Comments VITAMIN D, 25 OH (test code = 4958) 18 NG/ML VITAMIN D, 25 [id number] 00:00:00 Test Item Value Reference Range Interpretation Comments VITAMIN D, 25 OH (test code = 4958) 18 NG/ML COMPREHENSIVE METABOLIC [id number] 00:00:00 Test Item Value Reference Range Interpretation Comments GLUCOSE (test code = 2217) 92 MG/DL BUN (test code = 2208) 8 MG/DL CREATININE (test code = 2214) 0.78 MG/DL eGFR AMER. (test code 101 ML/MIN/1.73 = 96423) eGFR NON- AMER. (test 87 ML/MIN/1.73 code = 94352) CALC BUN/CREAT (test code = 10 RATIO [...] code = 2219) 60 U/L COMPREHENSIVE METABOLIC [id number] 00:00:00 Test Item Value Reference Range Interpretation Comments GLUCOSE (test code = 2217) 92 MG/DL BUN (test code = 2208) 8 MG/DL CREATININE (test code = 2214) 0.78 MG/DL eGFR AMER. (test code 101 ML/MIN/1.73 = 15154) eGFR NON- AMER. (test 87 ML/MIN/1.73 code = 84696) CALC BUN/CREAT (test code = 10 RATIO [...] (test code = 2219) 60 U/L LIPID [id number] 00:00:00 Test Item Value Reference Range Interpretation Comments CHOLESTEROL (test code = 2210) 121 MG/DL TRIGLYCERIDES (test code = 2232) 72 MG/DL HDL CHOLESTEROL (test code = 2220) 49 MG/DL CALC LDL CHOL (test code = 2237) 57 MG/DL RISK RATIO LDL/HDL (test code = 1.16 RATIO 2238) LIPID [id number] 00:00:00 Test Item Value Reference Range Interpretation Comments CHOLESTEROL (test code = 2210) 121 MG/DL TRIGLYCERIDES (test code = 2232) 72 MG/DL HDL CHOLESTEROL (test code = 2220) 49 MG/DL CALC LDL CHOL (test code = 2237) 57 MG/DL RISK RATIO LDL/HDL (test code = 1.16 RATIO 2238) [id number] 00:00:00 Test Item Value Reference Range Interpretation Comments TSH, THIRD GENERATION (test code 3.230 UIU/ML = 2821) [id number] 00:00:00 Test Item Value Reference Range Interpretation Comments TSH, THIRD GENERATION (test code 3.230 UIU/ML = 2821) [id number] 00:00:00 Test Item Value Reference Range Interpretation Comments TSH, THIRD GENERATION (test code 3.230 UIU/ML = 2821) [id number] 00:00:00 Test Item Value Reference Range Interpretation Comments MAGNESIUM (test code = 2226) 2.2 MG/DL [id number] 00:00:00 Test Item Value Reference Range Interpretation Comments MAGNESIUM (test code = 2226) 2.2 MG/DL [id number] 00:00:00 Test Item Value Reference Range Interpretation Comments MAGNESIUM (test code = 2226) 2.2 MG/DL VITAMIN [id number] 00:00:00 Test Item Value Reference Range Interpretation Comments VITAMIN B-12 (test code = 2840) 345 PG/ML VITAMIN [id number] 00:00:00 Test Item Value Reference Range Interpretation Comments VITAMIN B-12 (test code = 2840) 345 PG/ML VITAMIN [id number] 00:00:00 Test Item Value Reference Range Interpretation Comments VITAMIN B-12 (test code = 2840) 345 PG/ML VITAMIN D, 25 [id number] 00:00:00 Test Item Value Reference Range Interpretation Comments VITAMIN D, 25 OH (test code = 4958) 18 NG/ML VITAMIN D, 25 [id number] 00:00:00 Test Item Value Reference Range Interpretation Comments VITAMIN D, 25 OH (test code = 4958) 18 NG/ML COMPREHENSIVE METABOLIC [id number] 00:00:00 Test Item Value Reference Range Interpretation Comments GLUCOSE (test code = 2217) 92 MG/DL BUN (test code = 2208) 8 MG/DL CREATININE (test code = 2214) 0.78 MG/DL eGFR AMER. (test code 101 ML/MIN/1.73 = 53299) eGFR NON- AMER. (test 87 ML/MIN/1.73 code = 36480) CALC BUN/CREAT (test code = 10 RATIO [...] code = 2219) 60 U/L COMPREHENSIVE METABOLIC [id number] 00:00:00 Test Item Value Reference Range Interpretation Comments GLUCOSE (test code = 2217) 92 MG/DL BUN (test code = 2208) 8 MG/DL CREATININE (test code = 2214) 0.78 MG/DL eGFR AMER. (test code 101 ML/MIN/1.73 = 47945) eGFR NON- AMER. (test 87 ML/MIN/1.73 code = 85672) CALC BUN/CREAT (test code = 10 RATIO [...] (test code = 2219) 60 U/L LIPID [id number] 00:00:00 Test Item Value Reference Range Interpretation Comments CHOLESTEROL (test code = 2210) 121 MG/DL TRIGLYCERIDES (test code = 2232) 72 MG/DL HDL CHOLESTEROL (test code = 2220) 49 MG/DL CALC LDL CHOL (test code = 2237) 57 MG/DL RISK RATIO LDL/HDL (test code = 1.16 RATIO 2238) LIPID [id number] 00:00:00 Test Item Value Reference Range Interpretation Comments CHOLESTEROL (test code = 2210) 121 MG/DL TRIGLYCERIDES (test code = 2232) 72 MG/DL HDL CHOLESTEROL (test code = 2220) 49 MG/DL CALC LDL CHOL (test code = 2237) 57 MG/DL RISK RATIO LDL/HDL (test code = 1.16 RATIO 2238) [id number] 00:00:00 Test Item Value Reference Range Interpretation Comments TSH, THIRD GENERATION (test code 3.230 UIU/ML = 2821) [id number] 00:00:00 Test Item Value Reference Range Interpretation Comments TSH, THIRD GENERATION (test code 3.230 UIU/ML = 2821) [id number] 00:00:00 Test Item Value Reference Range Interpretation Comments TSH, THIRD GENERATION (test code 3.230 UIU/ML = 2821) [id number] 00:00:00 Test Item Value Reference Range Interpretation Comments MAGNESIUM (test code = 2226) 2.2 MG/DL [id number] 00:00:00 Test Item Value Reference Range Interpretation Comments MAGNESIUM (test code = 2226) 2.2 MG/DL [id number] 00:00:00 Test Item Value Reference Range Interpretation Comments MAGNESIUM (test code = 2226) 2.2 MG/DL VITAMIN [id number] 00:00:00 Test Item Value Reference Range Interpretation Comments VITAMIN B-12 (test code = 2840) 345 PG/ML VITAMIN [id number] 00:00:00 Test Item Value Reference Range Interpretation Comments VITAMIN B-12 (test code = 2840) 345 PG/ML VITAMIN [id number] 00:00:00 Test Item Value Reference Range Interpretation Comments VITAMIN B-12 (test code = 2840) 345 PG/ML VITAMIN D, 25 [id number] 00:00:00 Test Item Value Reference Range Interpretation Comments VITAMIN D, 25 OH (test code = 4958) 18 NG/ML VITAMIN D, 25 [id number] 00:00:00 Test Item Value Reference Range Interpretation Comments VITAMIN D, 25 OH (test code = 4958) 18 NG/ML COMPREHENSIVE METABOLIC [id number] 00:00:00 Test Item Value Reference Range Interpretation Comments GLUCOSE (test code = 2217) 92 MG/DL BUN (test code = 2208) 8 MG/DL CREATININE (test code = 2214) 0.78 MG/DL eGFR AMER. (test code 101 ML/MIN/1.73 = 41130) eGFR NON- AMER. (test 87 ML/MIN/1.73 code = 53838) CALC BUN/CREAT (test code = 10 RATIO [...] code = 2219) 60 U/L COMPREHENSIVE METABOLIC [id number] 00:00:00 Test Item Value Reference Range Interpretation Comments GLUCOSE (test code = 2217) 92 MG/DL BUN (test code = 2208) 8 MG/DL CREATININE (test code = 2214) 0.78 MG/DL eGFR AMER. (test code 101 ML/MIN/1.73 = 93970) eGFR NON- AMER. (test 87 ML/MIN/1.73 code = 71994) CALC BUN/CREAT (test code = 10 RATIO [...] (test code = 2219) 60 U/L LIPID [id number] 00:00:00 Test Item Value Reference Range Interpretation Comments CHOLESTEROL (test code = 2210) 121 MG/DL TRIGLYCERIDES (test code = 2232) 72 MG/DL HDL CHOLESTEROL (test code = 2220) 49 MG/DL CALC LDL CHOL (test code = 2237) 57 MG/DL RISK RATIO LDL/HDL (test code = 1.16 RATIO 2238) LIPID [id number] 00:00:00 Test Item Value Reference Range Interpretation Comments CHOLESTEROL (test code = 2210) 121 MG/DL TRIGLYCERIDES (test code = 2232) 72 MG/DL HDL CHOLESTEROL (test code = 2220) 49 MG/DL CALC LDL CHOL (test code = 2237) 57 MG/DL RISK RATIO LDL/HDL (test code = 1.16 RATIO 2238) [id number] 00:00:00 Test Item Value Reference Range Interpretation Comments TSH, THIRD GENERATION (test code 3.230 UIU/ML = 2821) [id number] 00:00:00 Test Item Value Reference Range Interpretation Comments TSH, THIRD GENERATION (test code 3.230 UIU/ML = 2821) [id number] 00:00:00 Test Item Value Reference Range Interpretation Comments TSH, THIRD GENERATION (test code 3.230 UIU/ML = 2821) [id number] 00:00:00 Test Item Value Reference Range Interpretation Comments MAGNESIUM (test code = 2226) 2.2 MG/DL [id number] 00:00:00 Test Item Value Reference Range Interpretation Comments MAGNESIUM (test code = 2226) 2.2 MG/DL [id number] 00:00:00 Test Item Value Reference Range Interpretation Comments MAGNESIUM (test code = 2226) 2.2 MG/DL VITAMIN [id number] 00:00:00 Test Item Value Reference Range Interpretation Comments VITAMIN B-12 (test code = 2840) 345 PG/ML VITAMIN [id number] 00:00:00 Test Item Value Reference Range Interpretation Comments VITAMIN B-12 (test code = 2840) 345 PG/ML VITAMIN [id number] 00:00:00 Test Item Value Reference Range Interpretation Comments VITAMIN B-12 (test code = 2840) 345 PG/ML VITAMIN D, 25 [id number] 00:00:00 Test Item Value Reference Range Interpretation Comments VITAMIN D, 25 OH (test code = 4958) 18 NG/ML VITAMIN D, 25 [id number] 00:00:00 Test Item Value Reference Range Interpretation Comments VITAMIN D, 25 OH (test code = 4958) 18 NG/ML COMPREHENSIVE METABOLIC [id number] 00:00:00 Test Item Value Reference Range Interpretation Comments GLUCOSE (test code = 2217) 92 MG/DL BUN (test code = 2208) 8 MG/DL CREATININE (test code = 2214) 0.78 MG/DL eGFR AMER. (test code 101 ML/MIN/1.73 = 45242) eGFR NON- AMER. (test 87 ML/MIN/1.73 code = 10806) CALC BUN/CREAT (test code = 10 RATIO [...] code = 2219) 60 U/L COMPREHENSIVE METABOLIC [id number] 00:00:00 Test Item Value Reference Range Interpretation Comments GLUCOSE (test code = 2217) 92 MG/DL BUN (test code = 2208) 8 MG/DL CREATININE (test code = 2214) 0.78 MG/DL eGFR AMER. (test code 101 ML/MIN/1.73 = 46643) eGFR NON- AMER. (test 87 ML/MIN/1.73 code = 95870) CALC BUN/CREAT (test code = 10 RATIO [...] (test code = 2219) 60 U/L LIPID [id number] 00:00:00 Test Item Value Reference Range Interpretation Comments CHOLESTEROL (test code = 2210) 121 MG/DL TRIGLYCERIDES (test code = 2232) 72 MG/DL HDL CHOLESTEROL (test code = 2220) 49 MG/DL CALC LDL CHOL (test code = 2237) 57 MG/DL RISK RATIO LDL/HDL (test code = 1.16 RATIO 2238) LIPID [id number] 00:00:00 Test Item Value Reference Range Interpretation Comments CHOLESTEROL (test code = 2210) 121 MG/DL TRIGLYCERIDES (test code = 2232) 72 MG/DL HDL CHOLESTEROL (test code = 2220) 49 MG/DL CALC LDL CHOL (test code = 2237) 57 MG/DL RISK RATIO LDL/HDL (test code = 1.16 RATIO 2238) [id number] 00:00:00 Test Item Value Reference Range Interpretation Comments TSH, THIRD GENERATION (test code 3.230 UIU/ML = 2821) [id number] 00:00:00 Test Item Value Reference Range Interpretation Comments TSH, THIRD GENERATION (test code 3.230 UIU/ML = 2821) [id number] 00:00:00 Test Item Value Reference Range Interpretation Comments TSH, THIRD GENERATION (test code 3.230 UIU/ML = 2821) [id number] 00:00:00 Test Item Value Reference Range Interpretation Comments MAGNESIUM (test code = 2226) 2.2 MG/DL [id number] 00:00:00 Test Item Value Reference Range Interpretation Comments MAGNESIUM (test code = 2226) 2.2 MG/DL [id number] 00:00:00 Test Item Value Reference Range Interpretation Comments MAGNESIUM (test code = 2226) 2.2 MG/DL VITAMIN [id number] 00:00:00 Test Item Value Reference Range Interpretation Comments VITAMIN B-12 (test code = 2840) 345 PG/ML VITAMIN [id number] 00:00:00 Test Item Value Reference Range Interpretation Comments VITAMIN B-12 (test code = 2840) 345 PG/ML VITAMIN [id number] 00:00:00 Test Item Value Reference Range Interpretation Comments VITAMIN B-12 (test code = 2840) 345 PG/ML VITAMIN D, 25 [id number] 00:00:00 Test Item Value Reference Range Interpretation Comments VITAMIN D, 25 OH (test code = 4958) 18 NG/ML VITAMIN D, 25 [id number] 00:00:00 Test Item Value Reference Range Interpretation Comments VITAMIN D, 25 OH (test code = 4958) 18 NG/ML COMPREHENSIVE METABOLIC [id number] 00:00:00 Test Item Value Reference Range Interpretation Comments GLUCOSE (test code = 2217) 92 MG/DL BUN (test code = 2208) 8 MG/DL CREATININE (test code = 2214) 0.78 MG/DL eGFR AMER. (test code 101 ML/MIN/1.73 = 38051) eGFR NON- AMER. (test 87 ML/MIN/1.73 code = 75428) CALC BUN/CREAT (test code = 10 RATIO [...] code = 2219) 60 U/L COMPREHENSIVE METABOLIC [id number] 00:00:00 Test Item Value Reference Range Interpretation Comments GLUCOSE (test code = 2217) 92 MG/DL BUN (test code = 2208) 8 MG/DL CREATININE (test code = 2214) 0.78 MG/DL eGFR AMER. (test code 101 ML/MIN/1.73 = 32689) eGFR NON- AMER. (test 87 ML/MIN/1.73 code = 77052) CALC BUN/CREAT (test code = 10 RATIO [...] (test code = 2219) 60 U/L LIPID [id number] 00:00:00 Test Item Value Reference Range Interpretation Comments CHOLESTEROL (test code = 2210) 121 MG/DL TRIGLYCERIDES (test code = 2232) 72 MG/DL HDL CHOLESTEROL (test code = 2220) 49 MG/DL CALC LDL CHOL (test code = 2237) 57 MG/DL RISK RATIO LDL/HDL (test code = 1.16 RATIO 2238) LIPID [id number] 00:00:00 Test Item Value Reference Range Interpretation Comments CHOLESTEROL (test code = 2210) 121 MG/DL TRIGLYCERIDES (test code = 2232) 72 MG/DL HDL CHOLESTEROL (test code = 2220) 49 MG/DL CALC LDL CHOL (test code = 2237) 57 MG/DL RISK RATIO LDL/HDL (test code = 1.16 RATIO 2238) [id number] 00:00:00 Test Item Value Reference Range Interpretation Comments TSH, THIRD GENERATION (test code 3.230 UIU/ML = 2821) [id number] 00:00:00 Test Item Value Reference Range Interpretation Comments TSH, THIRD GENERATION (test code 3.230 UIU/ML = 2821) [id number] 00:00:00 Test Item Value Reference Range Interpretation Comments TSH, THIRD GENERATION (test code 3.230 UIU/ML = 2821) [id number] 00:00:00 Test Item Value Reference Range Interpretation Comments MAGNESIUM (test code = 2226) 2.2 MG/DL [id number] 00:00:00 Test Item Value Reference Range Interpretation Comments MAGNESIUM (test code = 2226) 2.2 MG/DL [id number] 00:00:00 Test Item Value Reference Range Interpretation Comments MAGNESIUM (test code = 2226) 2.2 MG/DL VITAMIN [id number] 00:00:00 Test Item Value Reference Range Interpretation Comments VITAMIN B-12 (test code = 2840) 345 PG/ML VITAMIN [id number] 00:00:00 Test Item Value Reference Range Interpretation Comments VITAMIN B-12 (test code = 2840) 345 PG/ML VITAMIN [id number] 00:00:00 Test Item Value Reference Range Interpretation Comments VITAMIN B-12 (test code = 2840) 345 PG/ML VITAMIN D, 25 [id number] 00:00:00 Test Item Value Reference Range Interpretation Comments VITAMIN D, 25 OH (test code = 4958) 18 NG/ML VITAMIN D, 25 [id number] 00:00:00 Test Item Value Reference Range Interpretation Comments VITAMIN D, 25 OH (test code = 4958) 18 NG/ML COMPREHENSIVE METABOLIC [id number] 00:00:00 Test Item Value Reference Range Interpretation Comments GLUCOSE (test code = 2217) 92 MG/DL BUN (test code = 2208) 8 MG/DL CREATININE (test code = 2214) 0.78 MG/DL eGFR AMER. (test code 101 ML/MIN/1.73 = 71751) eGFR NON- AMER. (test 87 ML/MIN/1.73 code = 20734) CALC BUN/CREAT (test code = 10 RATIO [...] code = 2219) 60 U/L COMPREHENSIVE METABOLIC [id number] 00:00:00 Test Item Value Reference Range Interpretation Comments GLUCOSE (test code = 2217) 92 MG/DL BUN (test code = 2208) 8 MG/DL CREATININE (test code = 2214) 0.78 MG/DL eGFR AMER. (test code 101 ML/MIN/1.73 = 47069) eGFR NON- AMER. (test 87 ML/MIN/1.73 code = 07403) CALC BUN/CREAT (test code = 10 RATIO [...] (test code = 2219) 60 U/L LIPID [id number] 00:00:00 Test Item Value Reference Range Interpretation Comments CHOLESTEROL (test code = 2210) 121 MG/DL TRIGLYCERIDES (test code = 2232) 72 MG/DL HDL CHOLESTEROL (test code = 2220) 49 MG/DL CALC LDL CHOL (test code = 2237) 57 MG/DL RISK RATIO LDL/HDL (test code = 1.16 RATIO 2238) LIPID [id number] 00:00:00 Test Item Value Reference Range Interpretation Comments CHOLESTEROL (test code = 2210) 121 MG/DL TRIGLYCERIDES (test code = 2232) 72 MG/DL HDL CHOLESTEROL (test code = 2220) 49 MG/DL CALC LDL CHOL (test code = 2237) 57 MG/DL RISK RATIO LDL/HDL (test code = 1.16 RATIO 2238) [id number] 00:00:00 Test Item Value Reference Range Interpretation Comments TSH, THIRD GENERATION (test code 3.230 UIU/ML = 2821) [id number] 00:00:00 Test Item Value Reference Range Interpretation Comments TSH, THIRD GENERATION (test code 3.230 UIU/ML = 2821) [id number] 00:00:00 Test Item Value Reference Range Interpretation Comments TSH, THIRD GENERATION (test code 3.230 UIU/ML = 2821) [id number] 00:00:00 Test Item Value Reference Range Interpretation Comments MAGNESIUM (test code = 2226) 2.2 MG/DL [id number] 00:00:00 Test Item Value Reference Range Interpretation Comments MAGNESIUM (test code = 2226) 2.2 MG/DL [id number] 00:00:00 Test Item Value Reference Range Interpretation Comments MAGNESIUM (test code = 2226) 2.2 MG/DL VITAMIN [id number] 00:00:00 Test Item Value Reference Range Interpretation Comments VITAMIN B-12 (test code = 2840) 345 PG/ML VITAMIN [id number] 00:00:00 Test Item Value Reference Range Interpretation Comments VITAMIN B-12 (test code = 2840) 345 PG/ML VITAMIN [id number] 00:00:00 Test Item Value Reference Range Interpretation Comments VITAMIN B-12 (test code = 2840) 345 PG/ML VITAMIN D, 25 [id number] 00:00:00 Test Item Value Reference Range Interpretation Comments VITAMIN D, 25 OH (test code = 4958) 18 NG/ML VITAMIN D, 25 [id number] 00:00:00 Test Item Value Reference Range Interpretation Comments VITAMIN D, 25 OH (test code = 4958) 18 NG/ML COMPREHENSIVE METABOLIC [id number] 00:00:00 Test Item Value Reference Range Interpretation Comments GLUCOSE (test code = 2217) 92 MG/DL BUN (test code = 2208) 8 MG/DL CREATININE (test code = 2214) 0.78 MG/DL eGFR AMER. (test code 101 ML/MIN/1.73 = 42787) eGFR NON- AMER. (test 87 ML/MIN/1.73 code = 03300) CALC BUN/CREAT (test code = 10 RATIO [...] code = 2219) 60 U/L COMPREHENSIVE METABOLIC [id number] 00:00:00 Test Item Value Reference Range Interpretation Comments GLUCOSE (test code = 2217) 92 MG/DL BUN (test code = 2208) 8 MG/DL CREATININE (test code = 2214) 0.78 MG/DL eGFR AMER. (test code 101 ML/MIN/1.73 = 85461) eGFR NON- AMER. (test 87 ML/MIN/1.73 code = 98255) CALC BUN/CREAT (test code = 10 RATIO [...] (test code = 2219) 60 U/L LIPID [id number] 00:00:00 Test Item Value Reference Range Interpretation Comments CHOLESTEROL (test code = 2210) 121 MG/DL TRIGLYCERIDES (test code = 2232) 72 MG/DL HDL CHOLESTEROL (test code = 2220) 49 MG/DL CALC LDL CHOL (test code = 2237) 57 MG/DL RISK RATIO LDL/HDL (test code = 1.16 RATIO 2238) LIPID [id number] 00:00:00 Test Item Value Reference Range Interpretation Comments CHOLESTEROL (test code = 2210) 121 MG/DL TRIGLYCERIDES (test code = 2232) 72 MG/DL HDL CHOLESTEROL (test code = 2220) 49 MG/DL CALC LDL CHOL (test code = 2237) 57 MG/DL RISK RATIO LDL/HDL (test code = 1.16 RATIO 2238) [id number] 00:00:00 Test Item Value Reference Range Interpretation Comments TSH, THIRD GENERATION (test code 3.230 UIU/ML = 2821) [id number] 00:00:00 Test Item Value Reference Range Interpretation Comments TSH, THIRD GENERATION (test code 3.230 UIU/ML = 2821) [id number] 00:00:00 Test Item Value Reference Range Interpretation Comments TSH, THIRD GENERATION (test code 3.230 UIU/ML = 2821) [id number] 00:00:00 Test Item Value Reference Range Interpretation Comments MAGNESIUM (test code = 2226) 2.2 MG/DL [id number] 00:00:00 Test Item Value Reference Range Interpretation Comments MAGNESIUM (test code = 2226) 2.2 MG/DL [id number] 00:00:00 Test Item Value Reference Range Interpretation Comments MAGNESIUM (test code = 2226) 2.2 MG/DL VITAMIN [id number] 00:00:00 Test Item Value Reference Range Interpretation Comments VITAMIN B-12 (test code = 2840) 345 PG/ML VITAMIN [id number] 00:00:00 Test Item Value Reference Range Interpretation Comments VITAMIN B-12 (test code = 2840) 345 PG/ML VITAMIN [id number] 00:00:00 Test Item Value Reference Range Interpretation Comments VITAMIN B-12 (test code = 2840) 345 PG/ML VITAMIN D, 25 [id number] 00:00:00 Test Item Value Reference Range Interpretation Comments VITAMIN D, 25 OH (test code = 4958) 18 NG/ML VITAMIN D, 25 [id number] 00:00:00 Test Item Value Reference Range Interpretation Comments VITAMIN D, 25 OH (test code = 4958) 18 NG/ML COMPREHENSIVE METABOLIC [id number] 00:00:00 Test Item Value Reference Range Interpretation Comments GLUCOSE (test code = 2217) 92 MG/DL BUN (test code = 2208) 8 MG/DL CREATININE (test code = 2214) 0.78 MG/DL eGFR AMER. (test code 101 ML/MIN/1.73 = 01151) eGFR NON- AMER. (test 87 ML/MIN/1.73 code = 62770) CALC BUN/CREAT (test code = 10 RATIO [...] code = 2219) 60 U/L COMPREHENSIVE METABOLIC [id number] 00:00:00 Test Item Value Reference Range Interpretation Comments GLUCOSE (test code = 2217) 92 MG/DL BUN (test code = 2208) 8 MG/DL CREATININE (test code = 2214) 0.78 MG/DL eGFR AMER. (test code 101 ML/MIN/1.73 = 01339) eGFR NON- AMER. (test 87 ML/MIN/1.73 code = 22582) CALC BUN/CREAT (test code = 10 RATIO [...] (test code = 2219) 60 U/L LIPID [id number] 00:00:00 Test Item Value Reference Range Interpretation Comments CHOLESTEROL (test code = 2210) 121 MG/DL TRIGLYCERIDES (test code = 2232) 72 MG/DL HDL CHOLESTEROL (test code = 2220) 49 MG/DL CALC LDL CHOL (test code = 2237) 57 MG/DL RISK RATIO LDL/HDL (test code = 1.16 RATIO 2238) LIPID [id number] 00:00:00 Test Item Value Reference Range Interpretation Comments CHOLESTEROL (test code = 2210) 121 MG/DL TRIGLYCERIDES (test code = 2232) 72 MG/DL HDL CHOLESTEROL (test code = 2220) 49 MG/DL CALC LDL CHOL (test code = 2237) 57 MG/DL RISK RATIO LDL/HDL (test code = 1.16 RATIO 2238) [id number] 00:00:00 Test Item Value Reference Range Interpretation Comments TSH, THIRD GENERATION (test code 3.230 UIU/ML = 2821) [id number] 00:00:00 Test Item Value Reference Range Interpretation Comments TSH, THIRD GENERATION (test code 3.230 UIU/ML = 2821) [id number] 00:00:00 Test Item Value Reference Range Interpretation Comments TSH, THIRD GENERATION (test code 3.230 UIU/ML = 2821) [id number] 00:00:00 Test Item Value Reference Range Interpretation Comments MAGNESIUM (test code = 2226) 2.2 MG/DL [id number] 00:00:00 Test Item Value Reference Range Interpretation Comments MAGNESIUM (test code = 2226) 2.2 MG/DL [id number] 00:00:00 Test Item Value Reference Range Interpretation Comments MAGNESIUM (test code = 2226) 2.2 MG/DL VITAMIN [id number] 00:00:00 Test Item Value Reference Range Interpretation Comments VITAMIN B-12 (test code = 2840) 345 PG/ML VITAMIN [id number] 00:00:00 Test Item Value Reference Range Interpretation Comments VITAMIN B-12 (test code = 2840) 345 PG/ML VITAMIN [id number] 00:00:00 Test Item Value Reference Range Interpretation Comments VITAMIN B-12 (test code = 2840) 345 PG/ML VITAMIN D, 25 [id number] 00:00:00 Test Item Value Reference Range Interpretation Comments VITAMIN D, 25 OH (test code = 4958) 18 NG/ML VITAMIN D, 25 [id number] 00:00:00 Test Item Value Reference Range Interpretation Comments VITAMIN D, 25 OH (test code = 4958) 18 NG/ML COMPREHENSIVE METABOLIC [id number] 00:00:00 Test Item Value Reference Range Interpretation Comments GLUCOSE (test code = 2217) 92 MG/DL BUN (test code = 2208) 8 MG/DL CREATININE (test code = 2214) 0.78 MG/DL eGFR AMER. (test code 101 ML/MIN/1.73 = 77042) eGFR NON- AMER. (test 87 ML/MIN/1.73 code = 28399) CALC BUN/CREAT (test code = 10 RATIO [...] code = 2219) 60 U/L COMPREHENSIVE METABOLIC [id number] 00:00:00 Test Item Value Reference Range Interpretation Comments GLUCOSE (test code = 2217) 92 MG/DL BUN (test code = 2208) 8 MG/DL CREATININE (test code = 2214) 0.78 MG/DL eGFR AMER. (test code 101 ML/MIN/1.73 = 89826) eGFR NON- AMER. (test 87 ML/MIN/1.73 code = 55858) CALC BUN/CREAT (test code = 10 RATIO [...] (test code = 2219) 60 U/L LIPID [id number] 00:00:00 Test Item Value Reference Range Interpretation Comments CHOLESTEROL (test code = 2210) 121 MG/DL TRIGLYCERIDES (test code = 2232) 72 MG/DL HDL CHOLESTEROL (test code = 2220) 49 MG/DL CALC LDL CHOL (test code = 2237) 57 MG/DL RISK RATIO LDL/HDL (test code = 1.16 RATIO 2238) LIPID [id number] 00:00:00 Test Item Value Reference Range Interpretation Comments CHOLESTEROL (test code = 2210) 121 MG/DL TRIGLYCERIDES (test code = 2232) 72 MG/DL HDL CHOLESTEROL (test code = 2220) 49 MG/DL CALC LDL CHOL (test code = 2237) 57 MG/DL RISK RATIO LDL/HDL (test code = 1.16 RATIO 2238) [id number] 00:00:00 Test Item Value Reference Range Interpretation Comments TSH, THIRD GENERATION (test code 3.230 UIU/ML = 2821) [id number] 00:00:00 Test Item Value Reference Range Interpretation Comments TSH, THIRD GENERATION (test code 3.230 UIU/ML = 2821) [id number] 00:00:00 Test Item Value Reference Range Interpretation Comments TSH, THIRD GENERATION (test code 3.230 UIU/ML = 2821) [id number] 00:00:00 Test Item Value Reference Range Interpretation Comments MAGNESIUM (test code = 2226) 2.2 MG/DL [id number] 00:00:00 Test Item Value Reference Range Interpretation Comments MAGNESIUM (test code = 2226) 2.2 MG/DL [id number] 00:00:00 Test Item Value Reference Range Interpretation Comments MAGNESIUM (test code = 2226) 2.2 MG/DL VITAMIN [id number] 00:00:00 Test Item Value Reference Range Interpretation Comments VITAMIN B-12 (test code = 2840) 345 PG/ML VITAMIN [id number] 00:00:00 Test Item Value Reference Range Interpretation Comments VITAMIN B-12 (test code = 2840) 345 PG/ML VITAMIN [id number] 00:00:00 Test Item Value Reference Range Interpretation Comments VITAMIN B-12 (test code = 2840) 345 PG/ML VITAMIN D, 25 [id number] 00:00:00 Test Item Value Reference Range Interpretation Comments VITAMIN D, 25 OH (test code = 4958) 18 NG/ML VITAMIN D, 25 [id number] 00:00:00 Test Item Value Reference Range Interpretation Comments VITAMIN D, 25 OH (test code = 4958) 18 NG/ML COMPREHENSIVE METABOLIC [id number] 00:00:00 Test Item Value Reference Range Interpretation Comments GLUCOSE (test code = 2217) 92 MG/DL BUN (test code = 2208) 8 MG/DL CREATININE (test code = 2214) 0.78 MG/DL eGFR AMER. (test code 101 ML/MIN/1.73 = 68510) eGFR NON- AMER. (test 87 ML/MIN/1.73 code = 04214) CALC BUN/CREAT (test code = 10 RATIO [...] code = 2219) 60 U/L COMPREHENSIVE METABOLIC [id number] 00:00:00 Test Item Value Reference Range Interpretation Comments GLUCOSE (test code = 2217) 92 MG/DL BUN (test code = 2208) 8 MG/DL CREATININE (test code = 2214) 0.78 MG/DL eGFR AMER. (test code 101 ML/MIN/1.73 = 92843) eGFR NON- AMER. (test 87 ML/MIN/1.73 code = 80442) CALC BUN/CREAT (test code = 10 RATIO [...] (test code = 2219) 60 U/L LIPID [id number] 00:00:00 Test Item Value Reference Range Interpretation Comments CHOLESTEROL (test code = 2210) 121 MG/DL TRIGLYCERIDES (test code = 2232) 72 MG/DL HDL CHOLESTEROL (test code = 2220) 49 MG/DL CALC LDL CHOL (test code = 2237) 57 MG/DL RISK RATIO LDL/HDL (test code = 1.16 RATIO 2238) LIPID [id number] 00:00:00 Test Item Value Reference Range Interpretation Comments CHOLESTEROL (test code = 2210) 121 MG/DL TRIGLYCERIDES (test code = 2232) 72 MG/DL HDL CHOLESTEROL (test code = 2220) 49 MG/DL CALC LDL CHOL (test code = 2237) 57 MG/DL RISK RATIO LDL/HDL (test code = 1.16 RATIO 2238) [id number] 00:00:00 Test Item Value Reference Range Interpretation Comments TSH, THIRD GENERATION (test code 3.230 UIU/ML = 2821) [id number] 00:00:00 Test Item Value Reference Range Interpretation Comments TSH, THIRD GENERATION (test code 3.230 UIU/ML = 2821) [id number] 00:00:00 Test Item Value Reference Range Interpretation Comments TSH, THIRD GENERATION (test code 3.230 UIU/ML = 2821) PAP TEST, THINPREP, [id number] 00:00:00 Test Item Value Reference Range Interpretation Comments SOURCE: (test code = Cervical/Endocervical 8001) SLIDES: (test code = 1 8011) LMP: (test code = 8021) SEE NOTE SPECIMEN ADEQUACY: (test (NOTE) code = 69439) INTERPRETATION: (test NILM/NO EPITH. code = 12057) ABNORMALITY;SEE BELOW OTHER COMMENTS: (test (NOTE) code = 8081) MUNITIONS HANDLER: (test Yoselin Enrique CT (ASCP) code = 8101) LOCATION: (test code = (NOTE) 54381) CPT: (test code = 8140) (NOTE) PAP TEST, THINPREP, [id number] 00:00:00 Test Item Value Reference Range Interpretation Comments SOURCE: (test code = Cervical/Endocervical 8001) SLIDES: (test code = 1 8011) LMP: (test code = 8021) SEE NOTE SPECIMEN ADEQUACY: (test (NOTE) code = 60175) INTERPRETATION: (test NILM/NO EPITH. code = 81111) ABNORMALITY;SEE BELOW OTHER COMMENTS: (test (NOTE) code = 8081) MUNITIONS HANDLER: (test LIGIA Haile (ASCP) code = 8101) LOCATION: (test code = (NOTE) 12004) CPT: (test code = 8140) (NOTE) PAP TEST, THINPREP, [id number] 00:00:00 Test Item Value Reference Range Interpretation Comments SOURCE: (test code = Cervical/Endocervical 8001) SLIDES: (test code = 1 8011) LMP: (test code = 8021) SEE NOTE SPECIMEN ADEQUACY: (test (NOTE) code = 10934) INTERPRETATION: (test NILM/NO EPITH. code = 71796) ABNORMALITY;SEE BELOW OTHER COMMENTS: (test (NOTE) code = 8081) MUNITIONS HANDLER: (test Yoselin Enrique CT (ASCP) code = 8101) LOCATION: (test code = (NOTE) 10664) CPT: (test code = 8140) (NOTE) HPV HIGH RISK WITH GENOTYPE, [id number] 00:00:00 Test Item Value Reference Range Interpretation Comments HPV HIGH RISK INTERP (test code = NEGATIVE 93100) HPV 16 (test code = 87186) NEGATIVE HPV 18 (test code = 05926) NEGATIVE HPV, HR, OTHER GENOTYPES (test code NEGATIVE = 62657) HPV HIGH RISK WITH GENOTYPE, [id number] 00:00:00 Test Item Value Reference Range Interpretation Comments HPV HIGH RISK INTERP (test code = NEGATIVE 46713) HPV 16 (test code = 37289) NEGATIVE HPV 18 (test code = 61469) NEGATIVE HPV, HR, OTHER GENOTYPES (test code NEGATIVE = 30562) HPV HIGH RISK WITH GENOTYPE, [id number] 00:00:00 Test Item Value Reference Range Interpretation Comments HPV HIGH RISK INTERP (test code = NEGATIVE 02414) HPV 16 (test code = 63555) NEGATIVE HPV 18 (test code = 40620) NEGATIVE HPV, HR, OTHER GENOTYPES (test code NEGATIVE = 73796) PAP TEST, THINPREP, [id number] 00:00:00 Test Item Value Reference Range Interpretation Comments SOURCE: (test code = Cervical/Endocervical 8001) SLIDES: (test code = 1 8011) LMP: (test code = 8021) SEE NOTE SPECIMEN ADEQUACY: (test (NOTE) code = 09059) INTERPRETATION: (test NILM/NO EPITH. code = 75674) ABNORMALITY;SEE BELOW OTHER COMMENTS: (test (NOTE) code = 8081) MUNITIONS HANDLER: (test LIGIA Haile (ASCP) code = 8101) LOCATION: (test code = (NOTE) 78428) CPT: (test code = 8140) (NOTE) PAP TEST, THINPREP, [id number] 00:00:00 Test Item Value Reference Range Interpretation Comments SOURCE: (test code = Cervical/Endocervical 8001) SLIDES: (test code = 1 8011) LMP: (test code = 8021) SEE NOTE SPECIMEN ADEQUACY: (test (NOTE) code = 18615) INTERPRETATION: (test NILM/NO EPITH. code = 42243) ABNORMALITY;SEE BELOW OTHER COMMENTS: (test (NOTE) code = 8081) MUNITIONS HANDLER: (test LIGIA Haile (ASCP) code = 8101) LOCATION: (test code = (NOTE) 28929) CPT: (test code = 8140) (NOTE) HPV HIGH RISK WITH GENOTYPE, [id number] 00:00:00 Test Item Value Reference Range Interpretation Comments HPV HIGH RISK INTERP (test code = NEGATIVE 01423) HPV 16 (test code = 29182) NEGATIVE HPV 18 (test code = 43686) NEGATIVE HPV, HR, OTHER GENOTYPES (test code NEGATIVE = 51748) HPV HIGH RISK WITH GENOTYPE, [id number] 00:00:00 Test Item Value Reference Range Interpretation Comments HPV HIGH RISK INTERP (test code = NEGATIVE 79898) HPV 16 (test code = 22022) NEGATIVE HPV 18 (test code = 25277) NEGATIVE HPV, HR, OTHER GENOTYPES (test code NEGATIVE = 89719) PAP TEST, THINPREP, [id number] 00:00:00 Test Item Value Reference Range Interpretation Comments SOURCE: (test code = Cervical/Endocervical 8001) SLIDES: (test code = 1 8011) LMP: (test code = 8021) SEE NOTE SPECIMEN ADEQUACY: (test (NOTE) code = 98777) INTERPRETATION: (test NILM/NO EPITH. code = 62689) ABNORMALITY;SEE BELOW OTHER COMMENTS: (test (NOTE) code = 8081) MUNITIONS HANDLER: (test LIGIA Haile (ASCP) code = 8101) LOCATION: (test code = (NOTE) 48838) CPT: (test code = 8140) (NOTE) PAP TEST, THINPREP, [id number] 00:00:00 Test Item Value Reference Range Interpretation Comments SOURCE: (test code = Cervical/Endocervical 8001) SLIDES: (test code = 1 8011) LMP: (test code = 8021) SEE NOTE SPECIMEN ADEQUACY: (test (NOTE) code = 57726) INTERPRETATION: (test NILM/NO EPITH. code = 53072) ABNORMALITY;SEE BELOW OTHER COMMENTS: (test (NOTE) code = 8081) MUNITIONS HANDLER: (test LIGIA Haile (ASCP) code = 8101) LOCATION: (test code = (NOTE) 54575) CPT: (test code = 8140) (NOTE) HPV HIGH RISK WITH GENOTYPE, [id number] 00:00:00 Test Item Value Reference Range Interpretation Comments HPV HIGH RISK INTERP (test code = NEGATIVE 41395) HPV 16 (test code = 13278) NEGATIVE HPV 18 (test code = 49375) NEGATIVE HPV, HR, OTHER GENOTYPES (test code NEGATIVE = 08486) HPV HIGH RISK WITH GENOTYPE, [id number] 00:00:00 Test Item Value Reference Range Interpretation Comments HPV HIGH RISK INTERP (test code = NEGATIVE 04625) HPV 16 (test code = 08624) NEGATIVE HPV 18 (test code = 15862) NEGATIVE HPV, HR, OTHER GENOTYPES (test code NEGATIVE = 38374) PAP TEST, THINPREP, [id number] 00:00:00 Test Item Value Reference Range Interpretation Comments SOURCE: (test code = Cervical/Endocervical 8001) SLIDES: (test code = 1 8011) LMP: (test code = 8021) SEE NOTE SPECIMEN ADEQUACY: (test (NOTE) code = 20538) INTERPRETATION: (test NILM/NO EPITH. code = 81970) ABNORMALITY;SEE BELOW OTHER COMMENTS: (test (NOTE) code = 8081) MUNITIONS HANDLER: (test Yoselin Enrique CT (ASCP) code = 8101) LOCATION: (test code = (NOTE) 73236) CPT: (test code = 8140) (NOTE) PAP TEST, THINPREP, [id number] 00:00:00 Test Item Value Reference Range Interpretation Comments SOURCE: (test code = Cervical/Endocervical 8001) SLIDES: (test code = 1 8011) LMP: (test code = 8021) SEE NOTE SPECIMEN ADEQUACY: (test (NOTE) code = 12621) INTERPRETATION: (test NILM/NO EPITH. code = 12491) ABNORMALITY;SEE BELOW OTHER COMMENTS: (test (NOTE) code = 8081) MUNITIONS HANDLER: (test LIGIA Haile (ASCP) code = 8101) LOCATION: (test code = (NOTE) 94761) CPT: (test code = 8140) (NOTE) HPV HIGH RISK WITH GENOTYPE, [id number] 00:00:00 Test Item Value Reference Range Interpretation Comments HPV HIGH RISK INTERP (test code = NEGATIVE 20735) HPV 16 (test code = 26298) NEGATIVE HPV 18 (test code = 78351) NEGATIVE HPV, HR, OTHER GENOTYPES (test code NEGATIVE = 87888) HPV HIGH RISK WITH GENOTYPE, [id number] 00:00:00 Test Item Value Reference Range Interpretation Comments HPV HIGH RISK INTERP (test code = NEGATIVE 70958) HPV 16 (test code = 51892) NEGATIVE HPV 18 (test code = 77726) NEGATIVE HPV, HR, OTHER GENOTYPES (test code NEGATIVE = 78970) PAP TEST, THINPREP, [id number] 00:00:00 Test Item Value Reference Range Interpretation Comments SOURCE: (test code = Cervical/Endocervical 8001) SLIDES: (test code = 1 8011) LMP: (test code = 8021) SEE NOTE SPECIMEN ADEQUACY: (test (NOTE) code = 38139) INTERPRETATION: (test NILM/NO EPITH. code = 78637) ABNORMALITY;SEE BELOW OTHER COMMENTS: (test (NOTE) code = 8081) MUNITIONS HANDLER: (test Yoselin Enrique CT (ASCP) code = 8101) LOCATION: (test code = (NOTE) 01465) CPT: (test code = 8140) (NOTE) PAP TEST, THINPREP, [id number] 00:00:00 Test Item Value Reference Range Interpretation Comments SOURCE: (test code = Cervical/Endocervical 8001) SLIDES: (test code = 1 8011) LMP: (test code = 8021) SEE NOTE SPECIMEN ADEQUACY: (test (NOTE) code = 18364) INTERPRETATION: (test NILM/NO EPITH. code = 08522) ABNORMALITY;SEE BELOW OTHER COMMENTS: (test (NOTE) code = 8081) MUNITIONS HANDLER: (test Yoselinrolly Enrique CT (ASCP) code = 8101) LOCATION: (test code = (NOTE) 08088) CPT: (test code = 8140) (NOTE) HPV HIGH RISK WITH GENOTYPE, [id number] 00:00:00 Test Item Value Reference Range Interpretation Comments HPV HIGH RISK INTERP (test code = NEGATIVE 84133) HPV 16 (test code = 71020) NEGATIVE HPV 18 (test code = 95383) NEGATIVE HPV, HR, OTHER GENOTYPES (test code NEGATIVE = 97735) HPV HIGH RISK WITH GENOTYPE, [id number] 00:00:00 Test Item Value Reference Range Interpretation Comments HPV HIGH RISK INTERP (test code = NEGATIVE 62899) HPV 16 (test code = 71034) NEGATIVE HPV 18 (test code = 98194) NEGATIVE HPV, HR, OTHER GENOTYPES (test code NEGATIVE = 51604) PAP TEST, THINPREP, [id number] 00:00:00 Test Item Value Reference Range Interpretation Comments SOURCE: (test code = Cervical/Endocervical 8001) SLIDES: (test code = 1 8011) LMP: (test code = 8021) SEE NOTE SPECIMEN ADEQUACY: (test (NOTE) code = 95593) INTERPRETATION: (test NILM/NO EPITH. code = 07428) ABNORMALITY;SEE BELOW OTHER COMMENTS: (test (NOTE) code = 8081) MUNITIONS HANDLER: (test LIGIA Haile (ASCP) code = 8101) LOCATION: (test code = (NOTE) 25429) CPT: (test code = 8140) (NOTE) PAP TEST, THINPREP, [id number] 00:00:00 Test Item Value Reference Range Interpretation Comments SOURCE: (test code = Cervical/Endocervical 8001) SLIDES: (test code = 1 8011) LMP: (test code = 8021) SEE NOTE SPECIMEN ADEQUACY: (test (NOTE) code = 86611) INTERPRETATION: (test NILM/NO EPITH. code = 17303) ABNORMALITY;SEE BELOW OTHER COMMENTS: (test (NOTE) code = 8081) MUNITIONS HANDLER: (test Yoselin Enrique CT (ASCP) code = 8101) LOCATION: (test code = (NOTE) 73319) CPT: (test code = 8140) (NOTE) HPV HIGH RISK WITH GENOTYPE, [id number] 00:00:00 Test Item Value Reference Range Interpretation Comments HPV HIGH RISK INTERP (test code = NEGATIVE 99059) HPV 16 (test code = 03552) NEGATIVE HPV 18 (test code = 71700) NEGATIVE HPV, HR, OTHER GENOTYPES (test code NEGATIVE = 74635) HPV HIGH RISK WITH GENOTYPE, [id number] 00:00:00 Test Item Value Reference Range Interpretation Comments HPV HIGH RISK INTERP (test code = NEGATIVE 92973) HPV 16 (test code = 30455) NEGATIVE HPV 18 (test code = 39177) NEGATIVE HPV, HR, OTHER GENOTYPES (test code NEGATIVE = 08825) PAP TEST, THINPREP, [id number] 00:00:00 Test Item Value Reference Range Interpretation Comments SOURCE: (test code = Cervical/Endocervical 8001) SLIDES: (test code = 1 8011) LMP: (test code = 8021) SEE NOTE SPECIMEN ADEQUACY: (test (NOTE) code = 54882) INTERPRETATION: (test NILM/NO EPITH. code = 66976) ABNORMALITY;SEE BELOW OTHER COMMENTS: (test (NOTE) code = 8081) MUNITIONS HANDLER: (test Yoselin Enrique CT (ASCP) code = 8101) LOCATION: (test code = (NOTE) 08465) CPT: (test code = 8140) (NOTE) PAP TEST, THINPREP, [id number] 00:00:00 Test Item Value Reference Range Interpretation Comments SOURCE: (test code = Cervical/Endocervical 8001) SLIDES: (test code = 1 8011) LMP: (test code = 8021) SEE NOTE SPECIMEN ADEQUACY: (test (NOTE) code = 57081) INTERPRETATION: (test NILM/NO EPITH. code = 71490) ABNORMALITY;SEE BELOW OTHER COMMENTS: (test (NOTE) code = 8081) MUNITIONS HANDLER: (test Yoselin Enrique CT (ASCP) code = 8101) LOCATION: (test code = (NOTE) 52528) CPT: (test code = 8140) (NOTE) HPV HIGH RISK WITH GENOTYPE, [id number] 00:00:00 Test Item Value Reference Range Interpretation Comments HPV HIGH RISK INTERP (test code = NEGATIVE 94025) HPV 16 (test code = 54581) NEGATIVE HPV 18 (test code = 85374) NEGATIVE HPV, HR, OTHER GENOTYPES (test code NEGATIVE = 51491) HPV HIGH RISK WITH GENOTYPE, [id number] 00:00:00 Test Item Value Reference Range Interpretation Comments HPV HIGH RISK INTERP (test code = NEGATIVE 80922) HPV 16 (test code = 04814) NEGATIVE HPV 18 (test code = 55465) NEGATIVE HPV, HR, OTHER GENOTYPES (test code NEGATIVE = 86776) PAP TEST, THINPREP, [id number] 00:00:00 Test Item Value Reference Range Interpretation Comments SOURCE: (test code = Cervical/Endocervical 8001) SLIDES: (test code = 1 8011) LMP: (test code = 8021) SEE NOTE SPECIMEN ADEQUACY: (test (NOTE) code = 88813) INTERPRETATION: (test NILM/NO EPITH. code = 74173) ABNORMALITY;SEE BELOW OTHER COMMENTS: (test (NOTE) code = 8081) MUNITIONS HANDLER: (test YoselinLIGIA Gan (ASCP) code = 8101) LOCATION: (test code = (NOTE) 73877) CPT: (test code = 8140) (NOTE) PAP TEST, THINPREP, [id number] 00:00:00 Test Item Value Reference Range Interpretation Comments SOURCE: (test code = Cervical/Endocervical 8001) SLIDES: (test code = 1 8011) LMP: (test code = 8021) SEE NOTE SPECIMEN ADEQUACY: (test (NOTE) code = 16763) INTERPRETATION: (test NILM/NO EPITH. code = 13773) ABNORMALITY;SEE BELOW OTHER COMMENTS: (test (NOTE) code = 8081) MUNITIONS HANDLER: (test LIGIA Haile (ASCP) code = 8101) LOCATION: (test code = (NOTE) 64064) CPT: (test code = 8140) (NOTE) HPV HIGH RISK WITH GENOTYPE, [id number] 00:00:00 Test Item Value Reference Range Interpretation Comments HPV HIGH RISK INTERP (test code = NEGATIVE 56657) HPV 16 (test code = 17980) NEGATIVE HPV 18 (test code = 96453) NEGATIVE HPV, HR, OTHER GENOTYPES (test code NEGATIVE = 48885) HPV HIGH RISK WITH GENOTYPE, [id number] 00:00:00 Test Item Value Reference Range Interpretation Comments HPV HIGH RISK INTERP (test code = NEGATIVE 26555) HPV 16 (test code = 26300) NEGATIVE HPV 18 (test code = 85163) NEGATIVE HPV, HR, OTHER GENOTYPES (test code NEGATIVE = 84193) PAP TEST, THINPREP, [id number] 00:00:00 Test Item Value Reference Range Interpretation Comments SOURCE: (test code = Cervical/Endocervical 8001) SLIDES: (test code = 1 8011) LMP: (test code = 8021) SEE NOTE SPECIMEN ADEQUACY: (test (NOTE) code = 28199) INTERPRETATION: (test NILM/NO EPITH. code = 41085) ABNORMALITY;SEE BELOW OTHER COMMENTS: (test (NOTE) code = 8081) MUNITIONS HANDLER: (test LIGIA Haile (ASCP) code = 8101) LOCATION: (test code = (NOTE) 54588) CPT: (test code = 8140) (NOTE) PAP TEST, THINPREP, [id number] 00:00:00 Test Item Value Reference Range Interpretation Comments SOURCE: (test code = Cervical/Endocervical 8001) SLIDES: (test code = 1 8011) LMP: (test code = 8021) SEE NOTE SPECIMEN ADEQUACY: (test (NOTE) code = 16813) INTERPRETATION: (test NILM/NO EPITH. code = 46533) ABNORMALITY;SEE BELOW OTHER COMMENTS: (test (NOTE) code = 8081) MUNITIONS HANDLER: (test Yoselin Enrique CT (ASCP) code = 8101) LOCATION: (test code = (NOTE) 75936) CPT: (test code = 8140) (NOTE) HPV HIGH RISK WITH GENOTYPE, [id number] 00:00:00 Test Item Value Reference Range Interpretation Comments HPV HIGH RISK INTERP (test code = NEGATIVE 44754) HPV 16 (test code = 82683) NEGATIVE HPV 18 (test code = 41940) NEGATIVE HPV, HR, OTHER GENOTYPES (test code NEGATIVE = 49755) HPV HIGH RISK WITH GENOTYPE, [id number] 00:00:00 Test Item Value Reference Range Interpretation Comments HPV HIGH RISK INTERP (test code = NEGATIVE 88859) HPV 16 (test code = 35444) NEGATIVE HPV 18 (test code = 73868) NEGATIVE HPV, HR, OTHER GENOTYPES (test code NEGATIVE = 09831) PAP TEST, THINPREP, [id number] 00:00:00 Test Item Value Reference Range Interpretation Comments SOURCE: (test code = Cervical/Endocervical 8001) SLIDES: (test code = 1 8011) LMP: (test code = 8021) SEE NOTE SPECIMEN ADEQUACY: (test (NOTE) code = 27550) INTERPRETATION: (test NILM/NO EPITH. code = 95316) ABNORMALITY;SEE BELOW OTHER COMMENTS: (test (NOTE) code = 8081) MUNITIONS HANDLER: (test Yoselin Enrique CT (ASCP) code = 8101) LOCATION: (test code = (NOTE) 40366) CPT: (test code = 8140) (NOTE) PAP TEST, THINPREP, [id number] 00:00:00 Test Item Value Reference Range Interpretation Comments SOURCE: (test code = Cervical/Endocervical 8001) SLIDES: (test code = 1 8011) LMP: (test code = 8021) SEE NOTE SPECIMEN ADEQUACY: (test (NOTE) code = 47126) INTERPRETATION: (test NILM/NO EPITH. code = 65601) ABNORMALITY;SEE BELOW OTHER COMMENTS: (test (NOTE) code = 8081) MUNITIONS HANDLER: (test LIGIA Haile (ASCP) code = 8101) LOCATION: (test code = (NOTE) 99828) CPT: (test code = 8140) (NOTE) HPV HIGH RISK WITH GENOTYPE, [id number] 00:00:00 Test Item Value Reference Range Interpretation Comments HPV HIGH RISK INTERP (test code = NEGATIVE 01789) HPV 16 (test code = 34117) NEGATIVE HPV 18 (test code = 18888) NEGATIVE HPV, HR, OTHER GENOTYPES (test code NEGATIVE = 26355) HPV HIGH RISK WITH GENOTYPE, [id number] 00:00:00 Test Item Value Reference Range Interpretation Comments HPV HIGH RISK INTERP (test code = NEGATIVE 72291) HPV 16 (test code = 34595) NEGATIVE HPV 18 (test code = 75571) NEGATIVE HPV, HR, OTHER GENOTYPES (test code NEGATIVE = 03665) PAP TEST, THINPREP, [id number] 00:00:00 Test Item Value Reference Range Interpretation Comments SOURCE: (test code = Cervical/Endocervical 8001) SLIDES: (test code = 1 8011) LMP: (test code = 8021) SEE NOTE SPECIMEN ADEQUACY: (test (NOTE) code = 15522) INTERPRETATION: (test NILM/NO EPITH. code = 95417) ABNORMALITY;SEE BELOW OTHER COMMENTS: (test (NOTE) code = 8081) MUNITIONS HANDLER: (test LIGIA Haile (ASCP) code = 8101) LOCATION: (test code = (NOTE) 60021) CPT: (test code = 8140) (NOTE) PAP TEST, THINPREP, [id number] 00:00:00 Test Item Value Reference Range Interpretation Comments SOURCE: (test code = Cervical/Endocervical 8001) SLIDES: (test code = 1 8011) LMP: (test code = 8021) SEE NOTE SPECIMEN ADEQUACY: (test (NOTE) code = 26094) INTERPRETATION: (test NILM/NO EPITH. code = 45321) ABNORMALITY;SEE BELOW OTHER COMMENTS: (test (NOTE) code = 8081) MUNITIONS HANDLER: (test LIGIA Haile (ASCP) code = 8101) LOCATION: (test code = (NOTE) 30844) CPT: (test code = 8140) (NOTE) HPV HIGH RISK WITH GENOTYPE, [id number] 00:00:00 Test Item Value Reference Range Interpretation Comments HPV HIGH RISK INTERP (test code = NEGATIVE 79629) HPV 16 (test code = 45648) NEGATIVE HPV 18 (test code = 70444) NEGATIVE HPV, HR, OTHER GENOTYPES (test code NEGATIVE = 92821) HPV HIGH RISK WITH GENOTYPE, [id number] 00:00:00 Test Item Value Reference Range Interpretation Comments HPV HIGH RISK INTERP (test code = NEGATIVE 13869) HPV 16 (test code = 25209) NEGATIVE HPV 18 (test code = 11291) NEGATIVE HPV, HR, OTHER GENOTYPES (test code NEGATIVE = 65983) PAP TEST, THINPREP, [id number] 00:00:00 Test Item Value Reference Range Interpretation Comments SOURCE: (test code = Cervical/Endocervical 8001) SLIDES: (test code = 1 8011) LMP: (test code = 8021) SEE NOTE SPECIMEN ADEQUACY: (test (NOTE) code = 21744) INTERPRETATION: (test NILM/NO EPITH. code = 66225) ABNORMALITY;SEE BELOW OTHER COMMENTS: (test (NOTE) code = 8081) MUNITIONS HANDLER: (test LIGIA Haile (ASCP) code = 8101) LOCATION: (test code = (NOTE) 74061) CPT: (test code = 8140) (NOTE) PAP TEST, THINPREP, [id number] 00:00:00 Test Item Value Reference Range Interpretation Comments SOURCE: (test code = Cervical/Endocervical 8001) SLIDES: (test code = 1 8011) LMP: (test code = 8021) SEE NOTE SPECIMEN ADEQUACY: (test (NOTE) code = 96421) INTERPRETATION: (test NILM/NO EPITH. code = 03678) ABNORMALITY;SEE BELOW OTHER COMMENTS: (test (NOTE) code = 8081) MUNITIONS HANDLER: (test LIGIA Haile (ASCP) code = 8101) LOCATION: (test code = (NOTE) 72563) CPT: (test code = 8140) (NOTE) HPV HIGH RISK WITH GENOTYPE, [id number] 00:00:00 Test Item Value Reference Range Interpretation Comments HPV HIGH RISK INTERP (test code = NEGATIVE 43628) HPV 16 (test code = 59093) NEGATIVE HPV 18 (test code = 56778) NEGATIVE HPV, HR, OTHER GENOTYPES (test code NEGATIVE = 34921) HPV HIGH RISK WITH GENOTYPE, [id number] 00:00:00 Test Item Value Reference Range Interpretation Comments HPV HIGH RISK INTERP (test code = NEGATIVE 10164) HPV 16 (test code = 87011) NEGATIVE HPV 18 (test code = 16544) NEGATIVE HPV, HR, OTHER GENOTYPES (test code NEGATIVE = 37819) SARS-CoV-2 (COVID-19) by RT-PCR (HIGH RISK)2019-09-12 00:00:00 Test Item Value Reference Range Interpretation Comments SARS-CoV-2 INTERPRETATION (test NEGATIVE code = 19317) SOURCE (test code = 82464) NOT SPECIFIED SARS-CoV-2 (COVID-19) by RT-PCR (HIGH RISK)2019-09-12 00:00:00 Test Item Value Reference Range Interpretation Comments SARS-CoV-2 INTERPRETATION (test NEGATIVE code = 09060) SOURCE (test code = 99672) NOT SPECIFIED SARS-CoV-2 (COVID-19) by RT-PCR (HIGH RISK)2019-09-12 00:00:00 Test Item Value Reference Range Interpretation Comments SARS-CoV-2 INTERPRETATION (test NEGATIVE code = 38645) SOURCE (test code = 89521) NOT SPECIFIED SARS-CoV-2 (COVID-19) by RT-PCR (HIGH RISK)2019-09-12 00:00:00 Test Item Value Reference Range Interpretation Comments SARS-CoV-2 INTERPRETATION (test NEGATIVE code = 71462) SOURCE (test code = 62698) NOT SPECIFIED SARS-CoV-2 (COVID-19) by RT-PCR (HIGH RISK)2019-09-12 00:00:00 Test Item Value Reference Range Interpretation Comments SARS-CoV-2 INTERPRETATION (test NEGATIVE code = 63717) SOURCE (test code = 49971) NOT SPECIFIED SARS-CoV-2 (COVID-19) by RT-PCR (HIGH RISK)2019-09-12 00:00:00 Test Item Value Reference Range Interpretation Comments SARS-CoV-2 INTERPRETATION (test NEGATIVE code = 30435) SOURCE (test code = 12808) NOT SPECIFIED SARS-CoV-2 (COVID-19) by RT-PCR (HIGH RISK)2019-09-12 00:00:00 Test Item Value Reference Range Interpretation Comments SARS-CoV-2 INTERPRETATION (test NEGATIVE code = 32628) SOURCE (test code = 66462) NOT SPECIFIED SARS-CoV-2 (COVID-19) by RT-PCR (HIGH RISK)2019-09-12 00:00:00 Test Item Value Reference Range Interpretation Comments SARS-CoV-2 INTERPRETATION (test NEGATIVE code = 42275) SOURCE (test code = 56676) NOT SPECIFIED SARS-CoV-2 (COVID-19) by RT-PCR (HIGH RISK)2019-09-12 00:00:00 Test Item Value Reference Range Interpretation Comments SARS-CoV-2 INTERPRETATION (test NEGATIVE code = 40247) SOURCE (test code = 63192) NOT SPECIFIED SARS-CoV-2 (COVID-19) by RT-PCR (HIGH RISK)2019-09-12 00:00:00 Test Item Value Reference Range Interpretation Comments SARS-CoV-2 INTERPRETATION (test NEGATIVE code = 78791) SOURCE (test code = 93405) NOT SPECIFIED SARS-CoV-2 (COVID-19) by RT-PCR (HIGH RISK)2019-09-12 00:00:00 Test Item Value Reference Range Interpretation Comments SARS-CoV-2 INTERPRETATION (test NEGATIVE code = 71379) SOURCE (test code = 04720) NOT SPECIFIED SARS-CoV-2 (COVID-19) by RT-PCR (HIGH RISK)2019-09-12 00:00:00 Test Item Value Reference Range Interpretation Comments SARS-CoV-2 INTERPRETATION (test NEGATIVE code = 52489) SOURCE (test code = 27791) NOT SPECIFIED SARS-CoV-2 (COVID-19) by RT-PCR (HIGH RISK)2019-09-12 00:00:00 Test Item Value Reference Range Interpretation Comments SARS-CoV-2 INTERPRETATION (test NEGATIVE code = 46495) SOURCE (test code = 84857) NOT SPECIFIED SARS-CoV-2 (COVID-19) by RT-PCR (HIGH RISK)2019-09-12 00:00:00 Test Item Value Reference Range Interpretation Comments SARS-CoV-2 INTERPRETATION (test NEGATIVE code = 19436) SOURCE (test code = 92709) NOT SPECIFIED SARS-CoV-2 (COVID-19) by RT-PCR (HIGH RISK)2019-09-12 00:00:00 Test Item Value Reference Range Interpretation Comments SARS-CoV-2 INTERPRETATION (test NEGATIVE code = 33511) SOURCE (test code = 11769) NOT SPECIFIED SARS-CoV-2 (COVID-19) by RT-PCR (HIGH RISK)2019-09-12 00:00:00 Test Item Value Reference Range Interpretation Comments SARS-CoV-2 INTERPRETATION (test NEGATIVE code = 45616) SOURCE (test code = 31493) NOT SPECIFIED SARS-CoV-2 (COVID-19) by RT-PCR (HIGH RISK)2019-09-12 00:00:00 Test Item Value Reference Range Interpretation Comments SARS-CoV-2 INTERPRETATION (test NEGATIVE code = 19677) SOURCE (test code = 69723) NOT SPECIFIED SARS-CoV-2 (COVID-19) by RT-PCR (HIGH RISK)2019-09-12 00:00:00 Test Item Value Reference Range Interpretation Comments SARS-CoV-2 INTERPRETATION (test NEGATIVE code = 55176) SOURCE (test code = 24845) NOT SPECIFIED SARS-CoV-2 (COVID-19) by RT-PCR (HIGH RISK)2019-09-12 00:00:00 Test Item Value Reference Range Interpretation Comments SARS-CoV-2 INTERPRETATION (test NEGATIVE code = 19856) SOURCE (test code = 32737) NOT SPECIFIED SARS-CoV-2 (COVID-19) by RT-PCR (HIGH RISK)2019-09-12 00:00:00 Test Item Value Reference Range Interpretation Comments SARS-CoV-2 INTERPRETATION (test NEGATIVE code = 11074) SOURCE (test code = 20866) NOT SPECIFIED SARS-CoV-2 (COVID-19) by RT-PCR (HIGH RISK)2019-09-12 00:00:00 Test Item Value Reference Range Interpretation Comments SARS-CoV-2 INTERPRETATION (test NEGATIVE code = 11607) SOURCE (test code = 70195) NOT SPECIFIED SARS-CoV-2 (COVID-19) by RT-PCR (HIGH RISK)2019-09-12 00:00:00 Test Item Value Reference Range Interpretation Comments SARS-CoV-2 INTERPRETATION (test NEGATIVE code = 21284) SOURCE (test code = 44767) NOT SPECIFIED SARS-CoV-2 (COVID-19) by RT-PCR (HIGH RISK)2019-09-12 00:00:00 Test Item Value Reference Range Interpretation Comments SARS-CoV-2 INTERPRETATION (test NEGATIVE code = 35412) SOURCE (test code = 31651) NOT SPECIFIED SARS-CoV-2 (COVID-19) by RT-PCR (HIGH RISK)2019-09-12 00:00:00 Test Item Value Reference Range Interpretation Comments SARS-CoV-2 INTERPRETATION (test NEGATIVE code = 56237) SOURCE (test code = 30704) NOT SPECIFIED SARS-CoV-2 (COVID-19) by RT-PCR (HIGH RISK)2019-09-12 00:00:00 Test Item Value Reference Range Interpretation Comments SARS-CoV-2 INTERPRETATION (test NEGATIVE code = 17963) SOURCE (test code = 31855) NOT SPECIFIED"
[2022-05-16 11:49] LABS: Absolute Lymphocytes (CBC) 1.1 K/uL (0.7-4.9); Hematocrit 43.5 % (36.0-45.0); Lymphocytes % 12.7 % (15.3-44.8); MCV 89.5 fL (80-100); MPV 7.9 fL (7.6-11.3); RBC Red Blood Cell Count 4.86 M/uL (3.86-4.86)
--- NOTE | 2022-05-16 11:50 | RAD REPORT ---
EXAM DESCRIPTION: Gwen Single View05/16/2022 11:18 am CLINICAL HISTORY: Chest pain COMPARISON: April 2022 FINDINGS: The lungs appear clear of acute infiltrate. The heart is probably borderline enlarged IMPRESSION: No acute abnormalities displayed
[2022-05-16 11:59] LABS: Protime INR 1.08
[2022-05-16 12:00] LABS: SARS-CoV-2 Antigen Rapid Res Negative (Negative)
[2022-05-16] MEDS ORDERED: ASPIRIN 81 MG CHEWABLE TABLET ONE (12:07)
[2022-05-16 12:08] LABS: Bilirubin Direct 0.3 mg/dL (0-0.2); Bilirubin Total 0.9 mg/dL (0.2-1.0); Magnesium 2.2 mg/dL (1.6-2.4); Potassium 4.1 mmol/L (3.5-5.1); Protein, Total 7.3 g/dL (6.4-8.2)
[2022-05-16 12:17] LABS: Troponin High Sensitivity 80.3 pg/mL (<58.9)
[2022-05-16 13:06] LABS: Barbiturates NEGATIVE (NEGATIVE); Benzodiazepines NEGATIVE (NEGATIVE); Cocaine NEGATIVE (NEGATIVE); METHAMPHETAM NEGATIVE (NEGATIVE); Methadone NEGATIVE (NEGATIVE); Opiates NEGATIVE (NEGATIVE); Phencyclidine NEGATIVE (NEGATIVE); THC Cannibis NEGATIVE (NEGATIVE)
[2022-05-16] MEDS ORDERED: NICOTINE 21 MG/PAT TD ONE (14:11)
[2022-05-16] MEDS ORDERED: hydrOXYzine HCL 25 MG TAB ONE (14:47)
--- NOTE | 2022-05-16 16:22 | EDPHYS ---
Physician Documentation [facility] Name: Jessica Wong Age: 56 yrs Sex: Female : 1965 Arrival Date: 05/16/2022 Time: 10:40 Bed 19 Private MD: ED Physician Conrad Darden HPI: 05/16 11:13 This 56 yrs old Female presents to ER via Ambulatory with complaints of chest pain. sb4 11:13 56 year old female with past medical history of bipolar disorder, CAD, CHF who sb4 presented with complaints of chest pain. She states she woke up with substernal chest pain but thinks it may be from her anxiety. She reports struggling with everyday life lately. She doesn't feel like her bipolar medications are working properly, but is taking them as prescribed as well as her cardiac meds. She denies current suicidal ideation but states it would be okay if she did not wake up. She lives at home with her son and his .. DIRECTOR INSTITUTION: 10:47 LMP N/A - Post-menopause ap3 Historical: - Allergies: 10:45 Oxycodone HCl; ap3 10:45 PENICILLINS; ap3 - PMHx: 10:45 Bipolar disorder; Cancer; Hodgkin's; CHF; Heart Murmur; ap3 - PSHx: 10:45 cardiac stents; ap3 - Immunization history:: Client reports having NOT received the Covid vaccine. Flu vaccine is not up to date. - Social history:: Smoking status: Patient reports the use of cigarette tobacco products, smokes one-half pack cigarettes per day. ROS: 11:15 Constitutional: Negative for fever, chills, and weight loss, Eyes: Negative for injury, sb4 pain, redness, and discharge, ENT: Negative for injury, pain, and discharge, Respiratory: Negative for shortness of breath, cough, wheezing, and pleuritic chest pain, Abdomen/GI: Negative for abdominal pain, nausea, vomiting, diarrhea, and constipation, MS/Extremity: Negative for injury and deformity, Skin: Negative for injury, rash, and discoloration. 11:15 Constitutional: 11:15 Cardiovascular: Positive for chest pain, Negative for palpitations. 11:20 Psych: Positive for anxiety, depression, positive for passive suicidal ideation, sb4 Negative for auditory hallucinations, visual hallucinations, homicidal ideation. Exam: 13:39 ECG was reviewed by the Attending Physician. sb4 17:21 Constitutional: This is a well developed, well nourished patient who is awake, alert, sb4 and in no acute distress. Head/Face: Normocephalic, atraumatic. Eyes: Extra-ocular motions intact. Periorbital areas with no swelling, redness, or edema. ENT: Mucous membranes moist. Cardiovascular: Regular rate and rhythm with a normal S1 and S2. Respiratory: Lungs have equal breath sounds bilaterally, clear to auscultation and percussion. No rales, rhonchi or wheezes noted. No increased work of breathing, no retractions or nasal flaring. Abdomen/GI: Soft, non-tender, no distension. Neuro: Awake and alert, GCS 15, oriented to person, place, time, and situation. Cranial nerves II-XII grossly intact. Motor strength 5/5 in all extremities. Sensory grossly intact. Cerebellar exam normal. Normal gait. 17:21 Psych: Behavior/mood is anxious, Tearful. passively suicidal, repeatedly states she would be okay going to sleep and not waking up. Vital Signs: 10:40 BP 135 / 85; Pulse 81; Resp 18; Temp 98.7; Pulse Ox 94% ; ap3 12:01 BP 128 / 72; Pulse 70; Resp 18; Pulse Ox 96% ; jh5 14:32 Pulse 74; Resp 18; Pulse Ox 100% ; jh5 16:24 BP 118 / 68; Pulse 72; Resp 18; Pulse Ox 100% ; jh5 19:21 BP 124 / 76; Pulse 68; Resp 17 S; Pulse Ox 99% on R/A; lg3 MDM: 11:00 Patient medically screened. sb4 16:17 Differential Diagnosis VT, unstable angina, SI, anxiety. Data reviewed: vital signs, sb4 nurses notes, old medical records, lab test result(s), cardiac enzymes, CBC, drug level(s), lithium, electrolytes, urinalysis, urine drug screen, EKG, and as a result, I will discharge patient. Management of patient was discussed with the following: Behavioral Health Provider: [facility] who recommended inpatient psychiatric treatment. . Care significantly affected by the following chronic conditions: CAD, Tobacco abuse. 17:27 Transition of care: After a detail discussion of the patient's case, care is sb4 transferred to Elias HARPER 05/16 10:49 Order name: Basic Metabolic Panel sb4 05/16 10:49 Order name: CBC with Diff sb4 05/16 10:49 Order name: D-Dimer sb4 05/16 10:49 Order name: LFT's sb4 05/16 10:49 Order name: Magnesium sb4 05/16 10:49 Order name: NT PRO-BNP sb4 05/16 10:49 Order name: PT-INR sb4 05/16 10:49 Order name: Troponin HS sb4 05/16 10:59 Order name: [place] ap3 05/16 11:01 Order name: SARS RAPID sb4 05/16 11:50 Order name: CBC with Automated Diff; Complete Time: 11:50 EDMS 05/16 11:59 Order name: Protime (+INR); Complete Time: 12:08 EDMS 05/16 11:59 Order name: D-Dimer; Complete Time: 12:08 EDMS 05/16 12:01 Order name: SARS-COV-2 Antigen Rapid; Complete Time: 12:08 EDMS 05/16 10:49 Order name: XRAY Chest (1 view) sb4 05/16 11:50 Order name: RAD; Complete Time: 11:50 EDMS 05/16 12:17 Order name: Basic Metabolic Panel; Complete Time: 12:36 EDMS 05/16 12:17 Order name: Liver (Hepatic) Function; Complete Time: 12:36 EDMS 05/16 12:17 Order name: Troponin High Sensitivity; Complete Time: 12:36 EDMS 05/16 12:17 Order name: NT PRO-BNP; Complete Time: 12:36 EDMS 05/16 12:17 Order name: Magnesium; Complete Time: 12:36 EDMS 05/16 12:20 Order name: Acetaminophen sb4 05/16 12:20 Order name: ETOH Level sb4 05/16 12:20 Order name: Urine Drug Screen sb4 05/16 12:32 Order name: [place]; Complete Time: 12:36 EDMS 05/16 13:07 Order name: Urine Drug Screen; Complete Time: 13:11 EDMS 05/16 13:18 Order name: Alcohol Serum/Plasma; Complete Time: 13:21 EDMS 05/16 13:39 Order name: Acetaminophen Level; Complete Time: 13:43 EDMS 05/16 15:12 Order name: Troponin High Sensitivity sb4 05/16 16:27 Order name: Troponin High Sensitivity; Complete Time: 16:34 EDMS 05/16 10:49 Order name: EKG; Complete Time: 10:50 sb4 05/16 10:49 Order name: Cardiac monitoring; Complete Time: 11:58 sb4 05/16 10:49 Order name: EKG - Nurse/Tech; Complete Time: 11:59 sb4 05/16 10:49 Order name: IV Saline Lock; Complete Time: 11:40 sb4 05/16 10:49 Order name: Labs collected and sent; Complete Time: 11:59 sb4 05/16 10:49 Order name: O2 Per Protocol; Complete Time: 11:59 sb4 05/16 10:49 Order name: O2 Sat Monitoring; Complete Time: 11:59 sb4 05/16 10:49 Order name: Suicide Precautions; Complete Time: 11:58 sb4 05/16 11:28 Order name: Diet Finger Food; Complete Time: 11:28 ss EC:39 Rate is 69 beats/min. Rhythm is regular, Normal Sinus Rhythm with Left bundle branch sb4 block. QRS [place] is Normal. ME interval is normal. Administered Medications: 12:00 Drug: Aspirin Chewable Tablet 324 mg Route: PO; [facility] 14:13 Drug: Nicoderm CQ Patch 21 mg/24 hr 1 patches Route: Transdermal; Site: affected area; [facility] 14:45 Drug: hydrOXYzine 50 mg Route: PO; [facility] Disposition Summary: 05/16/22 16:20 Transfer Ordered Transfer Location: [facility] Facility sb4 Reason: Specialty sb4 Condition: Fair sb4 Problem: new sb4 Symptoms: are unchanged sb4 Accepting Physician: Psychiatrist(05/16/22 21:24) lg3 Diagnosis - Suicidal ideations sb4 Forms: - Medication Reconciliation Form sb4 - SBAR form sb4 Signatures: Dispatcher [employer] Gianna Shah RN RN todd3 Medina Thakkar RN RN lg3 Tammy White RN RN jh5 Olga Wu PATahmina PATahmina sb4 Corrections: (The following items were deleted from the chart) 21:24 16:20 Psychiatrist sb4 lg3
--- NOTE | 2022-05-16 16:22 | ER ---
Nurse's Notes [facility] Name: Jessica Wong Age: 56 yrs Sex: Female : 1965 Arrival Date: 05/16/2022 Time: 10:40 Bed 19 Private MD: Diagnosis: Suicidal ideations Presentation: 05/16 10:40 Chief complaint: Patient states: she woke up with chest pain, and isn't sure if it is ap3 related to anxiety or something more. patient states she called her dr and asked if she should go to the ER or psychiatric facility and her dr informed her to come here due to the chest pain. patient states she isn't having any SI but reports, "It would be okay if I didn't wake up. I am just just through will all of this. I can't go to work, i can't be around people, i am not right, I am not functioning the way i need to without having a mental break down". "I feel useless". Coronavirus screen: At this time, the client does not indicate any symptoms associated with coronavirus-19. Ebola Screen: No symptoms or risks identified at this time. Initial Sepsis Screen: Does the patient meet any 2 criteria? No. Patient's initial sepsis screen is negative. Does the patient have a suspected source of infection? No. Patient's initial sepsis screen is negative. Risk Assessment: Do you want to hurt yourself or someone else? Other: patient no longer wants to live, denies SI but wishes she could go to sleep and not wake up. Onset of symptoms was May 15, 2022. 10:40 Method Of Arrival: Ambulatory ap3 10:40 Acuity: GUADALUPE 2 ap3 Triage Assessment: 10:46 General: Appears distressed, Behavior is anxious, crying. Pain: Complains of pain in ap3 chest Pain began gradually, 1 hour ago. Neuro: Level of Consciousness is awake, alert, obeys commands, Oriented to person, place, time, situation, Appropriate for age. Cardiovascular: Patient's skin is warm and dry. Respiratory: Airway is patent Respiratory effort is even, unlabored, Respiratory pattern is regular, symmetrical. 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 Flu vaccine is not up to date. - Social history:: Smoking status: Patient reports the use of cigarette tobacco products, smokes one-half pack cigarettes per day. Screenin:46 [facility] ED Fall Risk Assessment (Adult) History of falling in the last 3 months, ap3 including since admission No falls in past 3 months (0 pts). Abuse screen: Denies threats or abuse. Nutritional screening: No deficits noted. Tuberculosis screening: No symptoms or risk factors identified. Assessment: 14:31 Reassessment: Pt states; "I dont want you to think this is why i am here, cause its not jh5 but is there anything that is not ativan and not haldol that yall can give me to just calm me down or help my mind, please". 16:25 Reassessment: patient into bathroom at this time. jh5 19:21 General: Appears in no apparent distress. comfortable, Behavior is calm, cooperative. lg3 Pain: Denies pain. Neuro: No deficits noted. Costello Agitation-Sedation Scale (RASS): 0 - Alert and Calm Level of Consciousness is awake, alert, obeys commands, Oriented to person, place, time, situation. Cardiovascular: No deficits noted. Denies chest pain, shortness of breath, Capillary refill < 3 seconds Clubbing of nail beds is absent JVD is absent. Respiratory: No deficits noted. Airway is patent Respiratory effort is even, unlabored, Respiratory pattern is regular, symmetrical. GI: No deficits noted. No signs and/or symptoms were reported involving the gastrointestinal system. Abdomen is round non-distended, obese. : No deficits noted. No signs and/or symptoms were reported regarding the genitourinary system. EENT: No deficits noted. No signs and/or symptoms were reported regarding the EENT system. Derm: No deficits noted. Skin is intact, is healthy with good turgor, Skin is dry, Skin is normal, Skin temperature is warm. Musculoskeletal: No deficits noted. No signs and/or symptoms reported regarding the musculoskeletal system. Circulation, motion, and sensation intact. Range of motion: intact in all extremities. Vital Signs: 10:40 BP 135 / 85; Pulse 81; Resp 18; Temp 98.7; Pulse Ox 94% ; ap3 12:01 BP 128 / 72; Pulse 70; Resp 18; Pulse Ox 96% ; jh5 14:32 Pulse 74; Resp 18; Pulse Ox 100% ; jh5 16:24 BP 118 / 68; Pulse 72; Resp 18; Pulse Ox 100% ; jh5 19:21 BP 124 / 76; Pulse 68; Resp 17 S; Pulse Ox 99% on R/A; lg3 ED Course: 10:40 Patient arrived in ED. ap3 10:45 Triage completed. ap3 10:46 Arm band placed on right wrist. ap3 10:48 Olga Wu PA-C is PHCP. sb4 10:48 Conrad Darden MD is Attending Physician. sb4 11:40 SARS RAPID Sent. bc6 11:40 [place] Sent. bc6 11:40 Basic Metabolic Panel Sent. bc6 11:40 CBC with Diff Sent. bc6 11:40 D-Dimer Sent. bc6 11:40 LFT's Sent. bc6 11:40 Magnesium Sent. bc6 11:40 NT PRO-BNP Sent. bc6 11:40 PT-INR Sent. bc6 11:40 Troponin HS Sent. bc6 11:40 Inserted saline lock: 22 gauge in right hand, using aseptic technique. bc6 12:16 Chelsey Muñoz, RN is Primary Nurse. db 12:26 Diet tray given. em1 12:46 Acetaminophen Sent. bc6 12:46 ETOH Level Sent. bc6 14:16 contacted [facility] to have a screener evaluate pt. bd 16:21 Troponin High Sensitivity Sent. sb4 17:27 PHCP role handed off by Olga Wu PA-C cp 17:27 Elias Delgado PA is PHCP. cp 18:00 faxed chart to [facility] and [facility]. bd 19:21 Patient has correct armband on for positive identification. Bed in low position. lg3 19:21 No provider procedures requiring assistance completed. IV discontinued, intact, lg3 bleeding controlled, No redness/swelling at site. Pressure dressing applied. Administered Medications: 12:00 Drug: Aspirin Chewable Tablet 324 mg Route: PO; jh5 14:13 Drug: Nicoderm CQ Patch 21 mg/24 hr 1 patches Route: Transdermal; Site: affected area; [facility] 14:45 Drug: hydrOXYzine 50 mg Route: PO; [facility] Medication: 19:21 VIS not applicable for this client. lg3 Outcome: 16:20 ER care complete, transfer ordered by . sb4 21:24 Transferred by ground EMS lg3 21:24 Condition: stable 21:24 Instructed on the need for transfer, Demonstrated understanding of instructions. 21:24 Patient left the ED. lg3 Signatures: Eva White Eric em1 Elias Delgado PA PA cp Prokisch, Amanda RN RN ap3 Medina Thakkar RN RN lg3 Tammy White RN RN jh5 Chelsey Muñoz RN RN Olga Carlisle, PA-C PA-Ang sb4 Nancy Rodriguez bc6 Corrections: (The following items were deleted from the chart) 11:41 11:40 Missed attempt(s): 20 gauge in right antecubital area. bc6 bc6
[2022-05-16 21:52] VITALS: TEMP 98.7
[2022-05-16 21:57] VITALS: BP 124/76; O2SAT 99
== END 2022-05-16 21:24 ==
LOC: ER 10:37
DX: R45.851 Suicidal ideations (principal); R07.9 Chest pain, unspecified; F31.9 Bipolar disorder, unspecified; I50.9 Heart failure, unspecified; Z20.822 Contact with and (suspected) exposure to COVID-19; Z95.818 Presence of other cardiac implants and grafts; Z88.0 Allergy status to penicillin; Z88.5 Allergy status to narcotic agent
CPT/HCPCS: 85025; 80048; 36415; 83735; 85610; 80178; 85379; 80076; 84484 ×2; 83880; 80307; 71045; 87811; G0480 ×2

== ENCOUNTER 2024-04-29 12:53 | Observation (INO) | payer OTHER ==
[2024-04-29 14:02] LABS: Absolute Basophils 0.1 K/uL (0-0.5); Absolute Eosinophils 0.2 K/uL (0-0.5); Absolute Monocytes 0.8 K/uL (0.1-1.3); Absolute Neutrophil 9.4 K/uL (1.8-8.0); Basophils % 0.5 % (0-1.3); D-Dimer 1.289 FEUug/mL (0-0.500); Eosinophils % 1.5 % (0-4.4); Hematocrit 41.7 % (36.0-45.0); Hemoglobin 14.5 g/dL (12.0-15.0); Lymphocytes % 16.1 % (15.3-44.8); MCH 31.4 pg (27.0-35.0); MCHC 34.8 g/dL (32.0-36.0); MCV 90.3 fL (80-100); MPV 7.6 fL (7.6-11.3); Monocytes % 6.3 % (3.3-12.3); Neutrophils % 75.6 % (41.7-73.7); PT Prothrombin Time 11.6 SECONDS (9.4-12.5); Platelets 257 thou/uL (152-406); Protime INR 1.11; RBC Red Blood Cell Count 4.62 M/uL (3.86-4.86)
[2024-04-29] MEDS ORDERED: NA CHLORIDE 0.9% 500 ML ONE (14:04)
[2024-04-29 14:18] LABS: Albumin 3.5 g/dL (3.4-5.0); Bilirubin Total 0.6 mg/dL (0.2-1.0); Globulin 3.6 g/dL (2.3-3.5); Protein, Total 7.1 g/dL (6.4-8.2)
[2024-04-29 14:21] LABS: Troponin High Sensitivity 230.6 pg/mL (<58.9)
--- NOTE | 2024-04-29 14:43 | ER ---
Nurse's Notes [facility] Name: Jessica Wong Age: 58 yrs Sex: Female : 1965 Arrival Date: 04/29/2024 Time: 12:53 Bed 23 Private MD: Diagnosis: Subsequent non-ST elevation (NSTEMI) myocardial infarction;Acute on chronic combined systolic (congestive) and diastolic (congestive) heart failure Presentation: 04/29 13:10 Chief complaint: Patient states: SENT BY PRIMARY FOR ELEVATED D-DIMER ON ROUTINE LABS. bp Coronavirus screen: At this time, the client does not indicate any symptoms associated with coronavirus-19. Ebola Screen: No symptoms or risks identified at this time. Initial Sepsis Screen: Does the patient meet any 2 criteria? No. Patient's initial sepsis screen is negative. Does the patient have a suspected source of infection? No. Patient's initial sepsis screen is negative. Risk Assessment: Do you want to hurt yourself or someone else? Patient reports no desire to harm self or others. Onset of symptoms is unknown. 13:10 Method Of Arrival: Ambulatory bp 13:10 Acuity: GUADALUPE 3 bp Triage Assessment: 13:12 General: Appears in no apparent distress. obese, Behavior is calm, cooperative, bp appropriate for age. Pain: Denies pain. EENT: No deficits noted. Neuro: No deficits noted. Cardiovascular: No deficits noted. Respiratory: Airway is patent Respiratory effort is even, unlabored. GI: Abdomen is obese. : No signs and/or symptoms were reported regarding the genitourinary system. Derm: No deficits noted. Musculoskeletal: No deficits noted. Historical: - Allergies: 13:12 Oxycodone HCl; bp 13:12 PENICILLINS; bp - PMHx: 13:12 Bipolar disorder; Cancer; Hodgkin's; CHF; Heart Murmur; bp - PSHx: 13:12 cardiac stents; bp - Immunization history:: Adult Immunizations up to date. - Infectious Disease History:: Denies. - Social history:: Smoking status: Patient denies any tobacco usage or history of. Screenin:12 [facility] ED Fall Risk Assessment (Adult) History of falling in the last 3 months, bp including since admission No falls in past 3 months (0 pts) Confusion or Disorientation No (0 pts) Intoxicated or Sedated No (0 pts) Impaired Gait No (0 pts) Mobility Assist Device Used No (0 pt) Altered Elimination No (0 pt) Score/Fall Risk Level 0 - 2 = Low Risk Oriented to surroundings. Abuse screen: Denies threats or abuse. Denies injuries from another. Nutritional screening: No deficits noted. Tuberculosis screening: No symptoms or risk factors identified. Assessment: 13:12 General: Appears in no apparent distress. obese, Behavior is cooperative, appropriate bp for age, anxious. Pain: Denies pain. Neuro: No deficits noted. Cardiovascular: Rhythm is sinus rhythm. Respiratory: No deficits noted. GI: No signs and/or symptoms were reported involving the gastrointestinal system. : No deficits noted. EENT: No deficits noted. Derm: No deficits noted. Musculoskeletal: No deficits noted. 15:00 Reassessment: Patient appears in no apparent distress at this time. Patient is alert, bp oriented x 3, equal unlabored respirations, skin warm/dry/pink. 16:00 Reassessment: Patient appears in no apparent distress at this time. Patient is alert, bp oriented x 3, equal unlabored respirations, skin warm/dry/pink. Vital Signs: 13:10 BP 132 / 63; Pulse 89; Resp 16; Temp 97.5; Pulse Ox 96% ; Weight 104.33 kg; Height 5 bp ft. 2 in. ; 14:36 BP 142 / 58; Pulse 81; Resp 16; Pulse Ox 95% ; bp 16:00 BP 139 / 63; Pulse 61; Resp 15; Pulse Ox 96% ; bp 17:54 BP 135 / 55; Pulse 67; Resp 15; Pulse Ox 97% ; bp 13:10 Body Mass Index 42.07 (104.33 kg, 157.48 cm) bp ED Course: 12:58 Patient arrived in ED. al6 12:59 Joseph Mcintosh FNP-C is PHCP. dr5 12:59 Rex Mendoza MD is Attending Physician. dr5 13:10 Joseph Mcintosh FNP-C is PHCP. dr5 13:10 Fermin Crisostomo, CALI is Primary Nurse. bp 13:12 Triage completed. bp 13:12 Arm band placed on. bp 13:12 Patient has correct armband on for positive identification. bp 13:45 Initial lab(s) drawn, by co, sent to lab. Inserted saline lock: 22 gauge in right hand, bp using aseptic technique. Blood collected. Flushed with 10 mL NS. 14:35 XRAY Chest (1 view) Sent. bp 14:40 XRAY Chest (1 view) In Process Unspecified. EDMS 14:42 Frederick Carroll is Hospitalizing Provider. dr5 14:58 CT Chest For PE Angio In Process Unspecified. EDMS 14:59 CT Abd/Pelvis - IV Contrast Only In Process Unspecified. EDMS 16:09 No provider procedures requiring assistance completed. Patient admitted, IV remains in bp place. 17:55 Provided Education on: NA. bp Administered Medications: 14:00 Drug: NS 0.9% IV 500 ml IV at bolus once; to be given as a bolus over 30 minutes Route: bp IV; Rate: bolus; Site: right wrist; 17:51 Follow up: IV Status: Completed infusion bp 14:45 Drug: Aspirin PO 243 mg PO once Route: PO; bp 17:51 Follow up: Response: No adverse reaction bp Medication: 17:55 VIS not applicable for this client. bp Outcome: 14:43 Decision to Hospitalize by Provider. dr5 16:09 Admitted to ER Hold. Please see [facility] [employer] for further documentation. bp 16:09 Condition: stable 16:09 Instructed on the need for admit, 18:43 Patient left the ED. jl7 Signatures: Dispatcher [employer] Lizy May RN RN jl7 Peltier, Brian RN RN Joseph Breaux, SAMMYING MACHINE OPERATOR-C SAMMYING MACHINE OPERATOR-Cdr5 Keyona Cole Corrections: (The following items were deleted from the chart) 13:13 13:10 BP 230 / ???; 104.33 kg; Height 5 ft. 2 in.; BMI: 42.0; bp bp 14:36 13:10 104.33 kg; Height 5 ft. 2 in.; BMI: 42.0; bp bp
--- NOTE | 2024-04-29 14:44 | EDPHYS ---
Physician Documentation [facility] Name: Jessica Wong Age: 58 yrs Sex: Female : 1965 Arrival Date: 04/29/2024 Time: 12:53 Bed 23 Private MD: ED Physician Rex Mendoza HPI: 04/29 13:19 This 58 yrs old Female presents to ER via Ambulatory with complaints of dr5 Abnormal Lab Results. 13:19 Onset: The symptoms/episode began/occurred 2 day(s) ago. Patient is a 58-year-old dr5 female with history of CHF, bipolar disorder, cardiac stent due to NSTEMI coming in with elevated D-dimer of 0.66 that was resulted 2 days ago by primary care doctor. Patient was then referred to ER to rule out blood clot. Patient reports she noticed her abdomen bruising 2 days ago and went to the doctor in which ultrasound was completed with no acute abnormality. Patient denies chest pain, shortness of breath, abdominal pain nausea, vomiting, diarrhea. Patient does report her urine output is slightly darker than normal.. Historical: - Allergies: 13:12 Oxycodone HCl; bp 13:12 PENICILLINS; bp - PMHx: 13:12 Bipolar disorder; Cancer; Hodgkin's; CHF; Heart Murmur; bp - PSHx: 13:12 cardiac stents; bp - Immunization history:: Adult Immunizations up to date. - Infectious Disease History:: Denies. - Social history:: Smoking status: Patient denies any tobacco usage or history of. ROS: 13:19 Constitutional: as per hpi dr5 Exam: 13:19 Constitutional: This is a well developed, well nourished patient who is awake, alert, dr5 and in no acute distress. Head/Face: Normocephalic, atraumatic. Eyes: Pupils equal round and reactive to light, extra-ocular motions intact. Lids and lashes normal. Conjunctiva and sclera are non-icteric and not injected. Cornea within normal limits. Periorbital areas with no swelling, redness, or edema. ENT: Nares patent. No nasal discharge, no septal abnormalities noted. Tympanic membranes are normal and external auditory canals are clear. Oropharynx with no redness, swelling, or masses, exudates, or evidence of obstruction, uvula midline. Mucous membranes moist. Neck: Trachea midline, no thyromegaly or masses palpated, and no cervical lymphadenopathy. Supple, full range of motion without nuchal rigidity, or vertebral point tenderness. No Meningismus. Chest/axilla: Normal chest wall appearance and motion. Nontender with no deformity. No lesions are appreciated. Respiratory: Lungs have equal breath sounds bilaterally, clear to auscultation. No rales, rhonchi or wheezes noted. No increased work of breathing, no retractions or nasal flaring. 13:19 Neuro: Awake and alert, GCS 15, oriented to person, place, time, and situation. Cranial nerves II-XII grossly intact. Motor strength 5/5 in all extremities. Sensory grossly intact. Cerebellar exam normal. Normal gait. 13:19 Abdomen/GI: Inspection: bruising, all quadrants, obese Bowel sounds: normal, 13:19 Skin: Appearance: petechiae, that are moderate, and are scattered, and are diffusely located, of the right upper quadrant, left upper quadrant, right lower quadrant and left lower quadrant, Vital Signs: 13:10 BP 132 / 63; Pulse 89; Resp 16; Temp 97.5; Pulse Ox 96% ; Weight 104.33 kg; Height 5 bp ft. 2 in. ; 14:36 BP 142 / 58; Pulse 81; Resp 16; Pulse Ox 95% ; bp 16:00 BP 139 / 63; Pulse 61; Resp 15; Pulse Ox 96% ; bp 17:54 BP 135 / 55; Pulse 67; Resp 15; Pulse Ox 97% ; bp 13:10 Body Mass Index 42.07 (104.33 kg, 157.48 cm) bp MDM: 13:10 Medical Screening Exam initiated dr5 14:17 ED course: Looked at old ecg with no acute changes noted. dr5 15:38 Differential diagnosis: STEMI, NSTEMI, ACS, PE. Data reviewed: vital signs, nurses dr5 notes, lab test result(s), EKG, radiologic studies. Consideration of Admission/Observation Patient was admitted/placed on observation. Management of patient was discussed with the following: Program Support Clerk: Dr. Palumbo. Care significantly affected by the following chronic conditions: CHF, Bipolar Disorder, NSTEMI with cardiac stent. Care significantly affected by the following Social Determinants of Health: Poor access to healthcare and/or lack of insurance, Poor access to transportation, Problems related to employment. Counseling: I had a detailed discussion with the patient and/or guardian regarding the historical points, exam findings, and any diagnostic results supporting the discharge/admit diagnosis, the presence of at least one elevated blood pressure reading (>120/80) during this emergency department visit, lab results, radiology results, the need for further work-up and treatment in the hospital. ED course: Patient took significant milligrams of Plavix this morning with 81 mg of aspirin. Will give other 243 mg of aspirin in ER and admit patient for NSTEMI and possible cardiac catheterization.. 04/29 13:19 Order name: CBC with Diff; Complete Time: 14:17 04/29 13:19 Order name: D-Dimer; Complete Time: 14:03 04/29 13:19 Order name: NT PRO-BNP; Complete Time: 14:27 04/29 13:19 Order name: PT-INR; Complete Time: 14:03 04/29 13:19 Order name: Troponin HS; Complete Time: 14:27 04/29 13:19 Order name: CMP; Complete Time: 14:27 04/29 16:44 Order name: CBC with Automated Diff [facility] 04/29 16:44 Order name: CBC with Automated Diff [facility] 04/29 16:44 Order name: Comprehensive Metabolic Panel [facility] 04/29 16:44 Order name: Comprehensive Metabolic Panel [facility] 04/29 16:44 Order name: Creatine Phosphokinase [facility] 04/29 16:44 Order name: Creatine Phosphokinase [facility] 04/29 16:44 Order name: Creatine Phosphokinase [facility] 04/29 16:44 Order name: Creatine Phosphokinase [facility] 04/29 16:44 Order name: Lipid Profile [facility] 04/29 16:44 Order name: Lipid Profile [facility] 04/29 16:44 Order name: Magnesium [facility] 04/29 16:44 Order name: Magnesium [facility] 04/29 16:44 Order name: PTT, Activated Partial Thromb [facility] 04/29 16:44 Order name: PTT, Activated Partial Thromb [facility] 04/29 16:44 Order name: Troponin High Sensitivity [facility] 04/29 16:44 Order name: Troponin High Sensitivity [facility] 04/29 16:45 Order name: Troponin High Sensitivity [facility] 04/29 13:19 Order name: XRAY Chest (1 view); Complete Time: 15:42 04/29 14:05 Order name: CT Chest For PE Angio; Complete Time: 15:41 dr5 04/29 14:05 Order name: CT Abd/Pelvis - IV Contrast Only; Complete Time: 16:17 dr5 04/29 13:19 Order name: EKG; Complete Time: 13:20 dr5 04/29 13:19 Order name: Cardiac monitoring; Complete Time: 13:30 dr5 04/29 13:19 Order name: EKG - Nurse/Tech; Complete Time: 14:35 dr5 04/29 13:19 Order name: IV Saline Lock; Complete Time: 13:45 dr5 04/29 13:19 Order name: Labs collected and sent; Complete Time: 13:45 dr5 04/29 13:19 Order name: O2 Per Protocol; Complete Time: 13:30 dr5 04/29 13:19 Order name: O2 Sat Monitoring; Complete Time: 13:30 dr5 EC:10 Rate is 80 beats/min. Rhythm is regular. QRS Kersey is Normal. [place] interval is normal at dr5 174 msec. QRS interval is normal at 164 msec. QT interval is normal at 440 msec. Administered Medications: 14:00 Drug: NS 0.9% IV 500 ml IV at bolus once; to be given as a bolus over 30 minutes Route: bp IV; Rate: bolus; Site: right wrist; 17:51 Follow up: IV Status: Completed infusion bp 14:45 Drug: Aspirin PO 243 mg PO once Route: PO; bp 17:51 Follow up: Response: No adverse reaction bp Disposition: 04/30 07:04 Co-signature as Attending Physician, Rex Mendoza MD I reviewed the patient's care rn provided by the Advanced Practice Provider and agree with the diagnosis and treatment plan. Disposition Summary: 04/29/24 14:43 Hospitalization Ordered Notes: Hospitalization Status: Inpatient Admission dr5 Provider: Frederick Carroll dr5 Location: Telemetry/MedSurg (observation) dr5 Condition: Stable dr5 Problem: new dr5 Symptoms: are unchanged dr5 Bed/Room Type: [facility] Room Assignment: [facility](04/29/24 17:19) bd Diagnosis - Subsequent non-ST elevation (NSTEMI) myocardial infarction dr5 - Acute on chronic combined systolic (congestive) and diastolic (congestive) heart dr5 failure Forms: - Medication Reconciliation Form dr5 - SBAR form dr5 - Leadership Thank You Letter dr5 Signatures: Dispatcher [employer] EDMS Eva White Roman, MD MD rn Andressa, Fermin, Joseph Grimes RN, [employer]C [employer]-Cdr5 Corrections: (The following items were deleted from the chart) 04/29 17:19 14:43 dr5 bd
[2024-04-29] MEDS ORDERED: ASPIRIN EC 81 MG TAB PO ONE (15:10)
--- NOTE | 2024-04-29 15:39 | RAD REPORT ---
EXAM: CT Chest For Pe Angio TECHNIQUE: CT angiogram of the chest was performed following intravenous contrast administration, inc luding sagittal and coronal as well as maximum intensity projection reformats. One or more of the following dose reduction techniques were used: Automated exposure control, adjustment of the mA and k V according to patient size, and iterative reconstruction. Unless otherwise specified, incidental findings do not require dedicated imaging follow-up. INDICATION: [facility] MA[facility] PE R/o Bed Name: 23 N COMPARISON: 03/05/2022 CT chest. Chest radiograph of earlier the same day. FINDINGS: LINES/TUBES: None. PULMONARY ARTERIES: Main pulmonary artery shows prominent caliber, exceeding that of the ascending ao rta. No filling defects within the pulmonary arteries to suggest pulmonary embolus. LUNGS AND AIRWAYS: The lungs and central airways are normal without focal abnormality. PLEURA: No effusion or pneumothorax. Plaque-like pleural thickening posteriorly bilaterally again see n. HEART AND MEDIASTINUM: The visualized thyroid gland is normal. No mediastinal, hilar, or axillary lym phadenopathy. Heart is mildly enlarged. No pericardial effusion. Variant configuration of the arch, with left vertebral artery arising directly as the third vessel of the arch. SOFT TISSUES AND BONES: No acute osseous abnormality. No significant soft tissue finding. UPPER ABDOMEN: Unremarkable. IMPRESSION: No evidence of acute central pulmonary emboli. Prominent caliber of the main pulmonary artery again seen, suggesting ongoing pulmonary hypertension. Stable mild cardiomegaly.
--- NOTE | 2024-04-29 15:40 | RAD REPORT ---
EXAMINATION: ONE VIEW CHEST XR CLINICAL INDICATION: Female, 58 years old.,CONGESTION TECHNIQUE: Frontal chest projection is submitted. Examination is limited by patient positioning and t echnique. COMPARISON: 05/16/2022 chest x-ray. CT chest of earlier the same day FINDINGS: The lungs are well inflated and clear apart from right middle lobe atelectatic changes, as confirmed on the accompanying CT, which are more discrete radiographically today. No pneumothorax or sizable effusion. Stable cardiomegaly. Mediastinal contours are unremarkable. IMPRESSION: No acute intrathoracic abnormalities. Stable cardiomegaly.
--- NOTE | 2024-04-29 15:50 | RAD REPORT ---
EXAMINATION: CT Abdomen Pelvis W Contrast CLINICAL INDICATION: Female, 58 years old. ABD PAIN TECHNIQUE: CT abdomen and pelvis was performed, after the administration of IV contrast, as per [facility] protocol. Axial, sagittal and coronal reconstructions were obtained. One or more of the following dose reduction techniques were used: Automated exposure control, adjustment of the mA and k V according to patient size, and iterative reconstruction. Unless otherwise specified, incidental findings do not require dedicated imaging follow-up. COMPARISON: No prior exam. FINDINGS: LOWER CHEST: The visualized lung bases are clear. LIVER: Mild fatty liver is present. No focal lesion or biliary dilataion is seen. BILIARY SYSTEM: No suspicious abnormalities. SPLEEN: Normal size. No focal lesion. PANCREAS: No mass, ductal dilation, or kathi-pancreatic fluid. ADRENALS: Normal; no mass. KIDNEYS: Normal size and contour. No hydronephrosis. URINARY BLADDER: Unremarkable. GASTROINTESTINAL TRACT: No evidence of free air, significant intra-abdominal free fluid, bowel obstru ction or abscess. Mild distal colonic diverticulosis without evidence of acute diverticulitis. APPENDIX: Appendix not well visualized, could be surgically absent. LYMPH NODES: No lymphadenopathy. MUSCULOSKELETAL: No acute or suspicious osseous abnormality. ADDITIONAL FINDINGS: Focal isodense masslike soft tissue thickening along the right anterior abdomina l wall muscles above the umbilicus, probably involving the lateral margin of the rectus muscle, measuring 6.8 x 2.9 x 5.4 cm. Overlying cutaneous edema that extends past the midline. Small left ing uinal hernia containing fat. IMPRESSION: No acute or concerning abnormalities within the abdomen or pelvis. Masslike lesion within the substance of the right anterior abdominal wall muscles, may reflect an int ramuscular hematoma given some overlying swelling. Leiomyoma or fibrous tumor would also be a possibility. Please correlate with physical exam. Other incidental findings as above, including diffuse hepatic steatosis, mild distal colonic divertic ulosis, and a small left inguinal fat-containing hernia.
--- NOTE | 2024-04-29 17:07 | P.HP ---
Certification for Inpatient Patient admitted to: Observation With expected LOS: <2 Midnights Patient will require the following post-hospital care: None Practitioner: I am a practitioner with admitting privileges, knowledge of patient current condition, hospital course, and medical plan of care. Services: Services provided to patient in accordance with Admission requirements found in Title 42 Section 412.3 of the Code of Federal Regulations <GuillenSade Johnson - Last Filed: 04/29/24 18:35> Patient History Date of Service: 04/29/24 Reason for admission: Elevated troponin, elevated D-dimer History of Present Illness: Ms. Wong is a 58-year-old female with a past medical history of non- Hodgkin's lymphoma, hyperlipidemia, hypertension, CAD with PCI x 3, CHF, COPD, and bipolar disorder. She states she has had an upper respiratory infection for the last couple of weeks and she went to her PCP and had blood work drawn. Today she was feeling back towards her normal state of health when her PCP called and asked her to come to the emergency department for an elevated D-dimer and elevated troponin. Ms. Wong seems to have a chronically elevated troponin, denies chest pain, denies shortness of breath, denies trauma. Evaluation in the emergency department including a CT PE call was negative except for the findings that prompted her trip to the emergency department. She is in no distress, her vital signs are stable, and she denies any pain. We will keep her overnight, continue neb treatments, obtain serial troponins, with probable discharge in the morning. Home medications list reviewed: Yes - Past Medical/Surgical History Has patient received pneumonia vaccine in the past: No Diabetic: No -: Bipolar Disorder -: Atrial Fibrillation -: Diastolic CHF -: Hyperlipidemia -: Hodgkin's Lymphoma (1996) -: COPD -: x 2 -: Appendectomy Psychosocial/ Personal History: Patient lives at home. She has a son. - Social History Smoking Status: Unknown if ever smoked Alcohol use: No CD- Drugs: No Caffeine use: Yes Place of Residence: Home (Currently dislikes her job and is planning to move to [place] on Saturday) <Sade Guillen - Last Filed: 04/29/24 18:35> Date of Service: 04/30/24 <SAAD Carroll - Last Filed: 04/30/24 07:02> Allergies codeine Allergy (Verified 03/28/22 23:12) Unknown oxycodone Allergy (Verified 03/28/22 23:12) Hives/Rash Penicillins Adverse Reaction (Verified 03/28/22 23:12) yeast infection Home Medications: Allopurinol 100 mg PO DAILY 04/29/24 Aspirin Chewable [Aspirin Chewable*] 81 mg PO DAILY 04/29/24 Atorvastatin Calcium [Lipitor*] 20 mg PO BEDTIME 04/29/24 Buspirone HCl [Buspar] 10 mg PO DAILY 04/29/24 Clopidogrel Bisulfate [Plavix*] 75 mg PO DAILY 04/29/24 Furosemide [Lasix*] 20 mg PO DAILY 04/29/24 Levothyroxine Sodium 75 mcg PO DAILY 04/29/24 Mccoll Carbonate [Lithotabs *] 300 mg PO BID 04/29/24 Metoprolol Succinate [Toprol Xl*] 100 mg PO DAILY 04/29/24 Montelukast [Singulair*] 10 mg PO BEDTIME 04/29/24 Nitroglycerin [Nitrostat*] 0.4 mg PO PRN PRN 04/29/24 hydroCHLOROthiazide [Hydrochlorothiazide*] 12.5 mg PO DAILY PRN 04/29/24 Review of Systems 10-point ROS is otherwise unremarkable General: As per HPI, Unremarkable Eyes: Unremarkable ENT: Unremarkable Respiratory: Cough, As per HPI Cardiovascular: Unremarkable Gastrointestinal: Unremarkable Genitourinary: Unremarkable Musculoskeletal: Unremarkable Integumentary: As per HPI (Bilateral lower quadrants with petechiae status post coughing) Neurological: Unremarkable Lymphatics: Unremarkable <Guillen,Sade Alex - Last Filed: 04/29/24 18:35> Physical Examination - Physical Exam General: Alert, In no apparent distress, Oriented x3, Cooperative, Obese HEENT: Atraumatic, Normocephalic Neck: Supple Respiratory: Normal air movement, Expiratory wheezes, Other (COPD cough) Cardiovascular: No edema, Regular rate/rhythm, Normal S1 S2, Other (Ventricular block EKG unchanged from previous visit) Capillary refill: <2 Seconds Gastrointestinal: Normal bowel sounds, Soft and benign, Other (Petechiae to the lower quadrants bilaterally) Musculoskeletal: No clubbing, No swelling Integumentary: Other (As above) Neurological: Normal speech, Normal tone, Normal affect Lymphatics: No axilla or inguinal lymphadenopathy External genitalia: Deferred Rectal: Deferred - Studies Laboratory Data (last 24 hrs) 04/29/24 04/29/24 04/29/24 13:45 13:45 13:45 WBC 12.40 H Hgb 14.5 Hct 41.7 Plt Count 257 PT 11.6 INR 1.11 Sodium 139 Potassium 4.0 BUN 16 Creatinine 0.78 Glucose 101 Total Bilirubin 0.6 AST 17 ALT 34 Alkaline Phosphatase 94 <Sade Guillen - Last Filed: 04/29/24 18:35> - Studies Laboratory Data (last 24 hrs) 04/29/24 04/29/24 04/29/24 13:45 13:45 13:45 WBC 12.40 H Hgb 14.5 Hct 41.7 Plt Count 257 PT 11.6 INR 1.11 Sodium 139 Potassium 4.0 BUN 16 Creatinine 0.78 Glucose 101 Total Bilirubin 0.6 AST 17 ALT 34 Alkaline Phosphatase 94 <CarrollSAAD - Last Filed: 04/30/24 07:02> Assessment and Plan - Plan Significant cough with resultant petechiae to lower abdominal quadrant COPD exacerbation Elevated troponin and D-dimer -patient asymptomatic Patient denies nausea, vomiting, diaphoresis, shortness of breath, diarrhea Plan: 1. Serial troponins and EKG 2. Neb treatments 3. Teds 4. Antiplatelet therapy, anticoagulation, beta-sweetie, statin, and O2 as needed 5. [place] for pain control 6. Nitro prn CT PE protocol from the emergency department negative for PE EKG with intraventricular block but the same as previous EKG Bipolar Mccoll 300 mg p.o. twice daily Mccoll level VTE prophylaxis Teds Discharge Plan: Home Plan to discharge in: 24 Hours - Advance Directives Does patient have a Living Will: No Does patient have a Durable POA for Healthcare: No - Code Status/Comfort Care Code Status Assessed: Yes (Full) Critical Care: No <Sade Guillen - Last Filed: 04/29/24 18:35> - Plan This is 58 years old female patient with past medical history of coronary artery disease status post coronary stent on dual antiplatelet, aspirin and Plavix, morbid obesity who was sent to emergency room for abnormal lab finding, elevated D-dimer. The patient was complaining of a painful abdominal swelling but no sign of venous thromboembolism such as chest pain or hemoptysis or leg swelling. CT of abdomen revealed soft tissue mass within a rectus muscle in right upper quadrant, consistent with intramuscular hematoma. CTA of the chest confirmed no PE. Her clinical manifestation is consistent with hematoma in abdominal wall muscle related to dual antiplatelet, which contributing to elevated troponin and D-dimer. No thrombocytopenia, normal coagulation profile therefore no interven tion indicated but will hold dual antiplatelets for now and monitor hematoma in abdominal wall. <SAAD Carroll - Last Filed: 04/30/24 07:02>
[2024-04-29] MEDS: BUSPIRONE HCL 5 MG TABLET PO SCH (21:52)
[2024-04-29] MEDS: LITHIUM CARBONATE 300 MG CAP PO SCH (21:52)
[2024-04-29] MEDS: ATORVASTATIN 20 MG TAB PO SCH (21:52)
[2024-04-30 05:05] LABS: Absolute Eosinophils 0.2 K/uL (0-0.5); Absolute Lymphocytes (CBC) 1.7 K/uL (0.7-4.9); Absolute Monocytes 0.6 K/uL (0.1-1.3); Absolute Neutrophil 7.5 K/uL (1.8-8.0); Basophils % 0.4 % (0-1.3); Hematocrit 41.3 % (36.0-45.0); Lymphocytes % 17.2 % (15.3-44.8); MCH 31.3 pg (27.0-35.0); MCHC 34.1 g/dL (32.0-36.0); MCV 91.9 fL (80-100); MPV 7.8 fL (7.6-11.3); Monocytes % 5.9 % (3.3-12.3); Neutrophils % 74.5 % (41.7-73.7); Platelets 246 thou/uL (152-406); RBC Red Blood Cell Count 4.49 M/uL (3.86-4.86); Red Cell Distribution Width 14.1 % (12.1-15.2)
[2024-04-30] MEDS: METOPROLOL XL 50 MG TAB PO SCH (05:17)
[2024-04-30 05:31] LABS: Albumin 3.1 g/dL (3.4-5.0); Albumin/Globulin Ratio 0.9 (1.1-1.8); Anion Gap 8.2 mEq/L (5.0-15.0); Bilirubin Total 0.8 mg/dL (0.2-1.0); Globulin 3.4 g/dL (2.3-3.5); Magnesium 2.2 mg/dL (1.6-2.4); Potassium 4.2 mEq/L (3.5-5.1); Protein, Total 6.5 g/dL (6.4-8.2)
[2024-04-30 05:37] LABS: Troponin High Sensitivity 211.9 pg/mL (<58.9)
[2024-04-30 06:03] VITALS: BMI 41.6
[2024-04-30] MEDS: ARFORMOTEROL TARTRATE 15 MCG/2 ML VIAL.NEB NEB SCH (07:50)
[2024-04-30 08:58] VITALS: O2SAT 95
[2024-04-30] MEDS: FUROSEMIDE 20 MG TABLET PO SCH (08:59)
[2024-04-30] MEDS: ASPIRIN 81 MG CHEWABLE TABLET PO SCH (08:59)
[2024-04-30 09:00] VITALS: BP 119/65
[2024-04-30 09:13] VITALS: TEMP 98
--- NOTE | 2024-04-30 09:19 | P.DS ---
Admission Date: 04/29/24 Discharge Date: 04/30/24 Disposition: ROUTINE DISCHARGE Discharge Condition: GOOD Reason for Admission: Elevated troponin, elevated D-dimer Brief History of Present Illness: Ms. Wong is a 58-year-old female with a past medical history of non- Hodgkin's lymphoma, hyperlipidemia, hypertension, CAD with PCI x 3, CHF, COPD, and bipolar disorder. She states she has had an upper respiratory infection for the last couple of weeks and she went to her PCP and had blood work drawn. Today she was feeling back towards her normal state of health when her PCP called and asked her to come to the emergency department for an elevated D-dimer and elevated troponin. Ms. Wong seems to have a chronically elevated troponin, denies chest pain, denies shortness of breath, denies trauma. Evaluation in the emergency department including a CT PE was negative. She is in no distress, her vital signs are stable, and she denies any pain. We will keep her overnight, continue neb treatments, obtain serial troponins, with probable discharge in the morning. On exam she has extensive bruising to her lower abdomen. Hospital Course: "Masslike lesion within the substance of the right anterior abdominal wall muscles, may reflect an intramuscular hematoma given some overlying swelling. Leiomyoma or fibrous tumor would also be a possibility." noted on CT abd/pelvis. This is almost certainly an intramuscular hematoma that is causing the elevation in her troponin and D-dimer. Ms. Wong wore an abdominal binder overnight and states it felt "really good". We discussed continuing to wear this binder x 2 weeks. She will stop Plavix for the weekend and then resume her regular schedule. She should wear TEDS while at work and with driving long distances. Her lithium level is low and she will discuss that with her Psychiatrist. She is medically ready for discharge and states understanding of the plan of care and her follow up. Vital Signs/Physical Exam: Temp Pulse Resp BP Pulse Ox 98.2 F 80 16 119/65 93 04/30/24 04:00 04/30/24 08:59 04/30/24 04:00 04/30/24 08:59 04/30/24 04:00 General: Alert, In no apparent distress, Oriented x3 HEENT: Atraumatic, Normocephalic Neck: Supple, 2+ carotid pulse no bruit, JVD not distended Respiratory: Clear to auscultation bilaterally, Normal air movement Cardiovascular: No edema, Normal pulses, Regular rate/rhythm, Systolic murmur Capillary refill: <2 Seconds Gastrointestinal: Normal bowel sounds, Soft and benign, Other (ecchymosis ) Musculoskeletal: No clubbing, No swelling Integumentary: Other (abdominal ecchymosis) Neurological: Normal speech, Normal tone, Normal affect Lymphatics: No axilla or inguinal lymphadenopathy External genitalia: Deferred Rectal: Deferred Laboratory Data at Discharge: WBC 10.10 thou/uL (4.3-10.9) 04/30/24 04:23 Hgb 14.0 g/dL (12.0-15.0) 04/30/24 04:23 Hct 41.3 % (36.0-45.0) 04/30/24 04:23 Plt Count 246 thou/uL (152-406) 04/30/24 04:23 PT 11.6 SECONDS (9.4-12.5) 04/29/24 13:45 INR 1.11 04/29/24 13:45 APTT 30.1 SECONDS (24.3-36.9) 04/30/24 04:23 Sodium 140 mEq/L (136-145) 04/30/24 04:23 Potassium 4.2 mEq/L (3.5-5.1) 04/30/24 04:23 BUN 13 mg/dL (7-18) 04/30/24 04:23 Creatinine 0.60 mg/dL (0.55-1.02) 04/30/24 04:23 Glucose 103 mg/dL (74-106) 04/30/24 04:23 Magnesium 2.2 mg/dL (1.6-2.4) 04/30/24 04:23 Total Bilirubin 0.8 mg/dL (0.2-1.0) 04/30/24 04:23 AST 17 U/L (15-37) 04/30/24 04:23 ALT 29 U/L (13-56) 04/30/24 04:23 Alkaline Phosphatase 85 U/L (45-117) 04/30/24 04:23 Triglycerides 166 mg/dL (<150) H 04/30/24 04:23 Cholesterol 124 mg/dL (<200) 04/30/24 04:23 HDL Cholesterol 32 mg/dL (40-60) L 04/30/24 04:23 Cholesterol/HDL Ratio 3.88 04/30/24 04:23 Home Medications: Allopurinol 100 mg PO DAILY 04/29/24 Aspirin Chewable [Aspirin Chewable*] 81 mg PO DAILY 04/29/24 Atorvastatin Calcium [Lipitor*] 20 mg PO BEDTIME 04/29/24 Buspirone HCl [Buspar] 10 mg PO DAILY 04/29/24 Clopidogrel Bisulfate [Plavix*] 75 mg PO DAILY 04/29/24 Furosemide [Lasix*] 20 mg PO DAILY 04/29/24 Levothyroxine Sodium 75 mcg PO DAILY 04/29/24 Bowlegs Carbonate [Lithotabs *] 300 mg PO BID 04/29/24 Metoprolol Succinate [Toprol Xl*] 100 mg PO DAILY 04/29/24 Montelukast [Singulair*] 10 mg PO BEDTIME 04/29/24 Nitroglycerin [Nitrostat*] 0.4 mg PO PRN PRN 04/29/24 hydroCHLOROthiazide [Hydrochlorothiazide*] 12.5 mg PO DAILY PRN 04/29/24 Physician Discharge Instructions: "Masslike lesion within the substance of the right anterior abdominal wall muscles, may reflect an intramuscular hematoma given some overlying swelling. Leiomyoma or fibrous tumor would also be a possibility." noted on CT abd/pelvis. This is almost certainly an intramuscular hematoma that is causing the elevation in her troponin and D-dimer. Ms. Wong wore an abdominal binder overnight and states it felt "really good". We discussed continuing to wear this binder x 2 weeks. She will stop Plavix for the weekend and then resume her regular schedule. She should wear TEDS while at work and with driving long distances. Her lithium level is low and she will discuss that with her Psychiatrist. She is medically ready for discharge and states understanding of the plan of care and her follow up. Diet: AHA Activity: Ad gay Followup: RUPINDER BUCIO [Primary Care Provider] -
== END 2024-04-30 10:13 | disposition home or self-care (01) ==
LOC: ER 12:53 → ERHOLD 16:34 → 2ND 17:54
PROVIDERS: ADMIT Internal Medicine; ATTEND Internal Medicine
DX: R19.00 Intra-abdominal and pelvic swelling, mass and lump, unspecified site (principal); J44.1 Chronic obstructive pulmonary disease with (acute) exacerbation; R05.9 Cough, unspecified; R23.3 Spontaneous ecchymoses; R79.1 Abnormal coagulation profile; I50.43 Acute on chronic combined systolic (congestive) and diastolic (congestive) heart failure; F31.9 Bipolar disorder, unspecified; E78.5 Hyperlipidemia, unspecified; I10 Essential (primary) hypertension; I25.10 Atherosclerotic heart disease of native coronary artery without angina pectoris; Z85.72 Personal history of non-Hodgkin lymphomas
CPT/HCPCS: 36415; 71045; 71275; 74177; 80053; 80061; 80178; 82550; 83735; 83880; 84484; 85025; 85379; 85610; 85730; 94640; 94760; 96360; 96361; 99285; G0378; J7040; J7605; Q9967